=== PATIENT | male | born 1955 | race Caucasian/White ===

== ENCOUNTER 2023-03-09 15:25 | Outpatient (OUT) | payer MEDICARE, OTHER, SELFPAY ==
--- NOTE | 2023-03-09 15:37 | XR_ITS ---
The [address] [address] Patient Name: RADHA BRAXTON MRN: [id number] date: 1955 Sex: M Assigned Patient Location: LAB Current Patient Location: LAB Accession/Order Number: [id number] Exam Date: 03/09/2023 15:42 Report Date: 03/09/2023 17:21 At the request of: CHIOMA MCGOWAN Procedure: XR chest 2V EXAM: XR chest 2V HISTORY: persistent cough R05.3 COMPARISON: None. TECHNIQUE: PA and lateral views of the chest performed. FINDINGS: The trachea is midline. There is mild enlargement of the cardiac silhouette. There is a moderate right pleural effusion with associated compressive atelectasis and a small left pleural effusion. There is additional indeterminate density posteriorly at the right lung base. There is no pulmonary vascular congestion. There is no pneumothorax. There is no acute osseous abnormality. XR/XR chest 2V IMPRESSION: There is a moderate right pleural effusion with associated compressive atelectasis and a small left pleural effusion. There is additional indeterminate density posteriorly at the right lung base. A CT examination of the chest is recommended for more detailed evaluation. Electronically authenticated by: DEISI MOSHER Date: 03/09/2023 17:21
== END 2023-03-09 15:26 | disposition home or self-care (01) ==
LOC: LAB 15:29
PROVIDERS: PCP Internal Medicine; Visit Provider Internal Medicine
DX: R05.3 Chronic cough (principal); J90 Pleural effusion, not elsewhere classified
CPT/HCPCS: 71046

== ENCOUNTER 2023-03-12 06:40 | Outpatient (OUT) | payer MEDICARE, OTHER, SELFPAY ==
--- NOTE | 2023-03-12 | CT_ITS ---
[address] [address] Patient Name: RADHA BRAXTON MRN: [id number] date: 1955 Sex: M Assigned Patient Location: LAB Current Patient Location: Accession/Order Number: [id number] Exam Date: 03/12/2023 07:35 Report Date: 03/14/2023 21:09 At the request of: CHIOMA MCGOWAN Procedure: CT chest wo con EXAMINATION: CT chest wo con HISTORY: lung density on xray J98.4 COMPARISON: XR chest 03/09/2023 TECHNIQUE: Multi-planar CT images were obtained without and/or with IV contrast as indicated by examination type. Axial, Coronal, and Sagittal images. Dose reduction techniques were achieved by using automated exposure control and/or adjustment of mA and/or kV according to patient size and/or use of iterative reconstruction technique. FINDINGS: LUNGS: Scattered stranding within the lungs and prominent areas of passive atelectasis/consolidation within lung bases, right greater than left. PLEURA: Large right pleural effusion 5.5 cm. Small loculated pneumothorax posterior to left lower lobe superior segment, 0.6 cm in thickness by 3.9 cm in width by 6.2 cm in height. There would appear to be some adjacent lung sutures and mild increased opacity of the pleural which may correspond to history given by patient of prior talc placement for persistent pneumothorax. VASCULATURE: No abnormality. RONDA: No mass or adenopathy. MEDIASTINUM: No mass or adenopathy. CARDIAC: Cardiomegaly, small pericardial effusion, and marked atherosclerotic coronary artery disease. AORTA: No aneurysm or dissection. CHEST WALL: Bilateral gynecomastia. No mass or axillary adenopathy. BONES: No bone lesion or fracture. LIMITED ABDOMEN: No suspicious findings Limited images of the upper abdomen. OTHER: Negative. CT/CT chest wo con IMPRESSION: 1. Large right pleural effusion and prominent adjacent atelectasis versus infiltrates/consolidation. 2. Mild atelectasis or infiltrates within left lung base. 3. Small loculated left pneumothorax with adjacent pleural changes likely corresponding to prior repair/talc placement. No prior studies for comparison. 4. Cardiomegaly, marked atherosclerotic coronary artery disease, and small pericardial effusion. Electronically authenticated by: JETHRO SHARPE Date: 03/14/2023 21:09
--- OUTSIDE RECORDS SUMMARY | 2023-03-12 06:43 | XMS_ITS | CCD ---
Author Name Unknown Address [address] [place] [address] Organization [facility] Care Team Providers Care Retort Operator Name Role Phone DR EPIFANIO MONTELONGO Attending Unavailable JUAN M, DR BEDOLLA Admitting Unavailable Epifanio Montelongo DO Primary Care Provider Bridger LAKHANI, Ran Unavailable No, Referral Unavailable Unavailable Suzi Saxena Unavailable DO Epifanio Montelongo Primary Care Provider [phone] KELBY Saxena Attending Provider TAIWO Leon Attending Provider EPIFANIO MONTELONGO Primary Care Physician [phone] DO Epifanio Montelongo Primary Care Provider KELBY Saxena Attending Provider Epifanio Montelongo DO Primary Care Provider Bridger LAKHANI, Ran Unavailable No, Referral Unavailable Unavailable Epifanio Montelongo DO Primary Care Provider Bridger LAKHANI, Ran Unavailable No, Referral Unavailable Unavailable Epifanio Montelongo Unavailable DO Epifanio Montelongo Primary Care Provider KELBY Saxena Attending Provider Bridger LAKHANI, Ran Unavailable BRIDGER RAN Referring Unavailable BRIDGER, RAN Attending Unavailable EPIFANIO MONTELONGO Primary Care Unavailable BRIDGER, RAN Referring Unavailable EPIFANIO MONTELONGO Primary Care Unavailable BRIDGER, RAN Referring Unavailable BRIDGER, RAN Attending Unavailable EPIFANIO MONTELONGO Primary Care Unavailable EPIFANIO MONTELONGO Primary Care Unavailable BRIDGER, RAN Attending Unavailable BRIDGER, RAN Referring Unavailable BALL, EPIFANIO E Primary Care Unavailable BRIDGER, RAN Attending Unavailable DEBRA BOND Referring Unavailable JUAN MEPIFANIO E Primary Care Unavailable Mayank URBAN Attending Unavailable Mayank URBAN Attending Unavailable Ema Cline Attending Unavailable Epifanio Montelongo Primary Care Unavailable Ema Cline Admitting Unavailable Epifanio Montelongo Primary Care Unavailable Mapus, Tondra K Admitting Unavailable Mapus, Tondra K Attending Unavailable Epifanio Montelongo Primary Care Unavailable Mapus, Tondra K Admitting Unavailable Mapus, Tondra K Attending Unavailable Allergies Allergy Classification Reported Allergen(s) Allergy Type Date of Onset Reaction(s) Facility Iodine (and Iodine containting drugs) (1 source) Iodine (And Iodine Containting Drugs) Drug Allergy [facility] Repository Pentazocine (1 source) Pentazocine Drug Allergy [facility] Repository (15 sources) Aspirin / Pentazocine; Translations: [TALWIN COMPOUND] Drug Allergy 2 Other: See Comments [facility] Work Phone: (15 sources) Iodine; Translations: [IODINE] Drug Allergy 2 Other: See Comments [facility] Work Phone: (20 sources) Pentazocine; Translations: [PENTAZOCINE] Drug Allergy 0 Anaphylaxis [facility] Work Phone: (20 sources) Iodinated Contrast Media; Translations: [IODINATED CONTRAST MEDIA] Drug Allergy 5 Hives, Unknown [facility] Work Phone: (20 sources) Contrast media Propensity to adverse reactions Unknown viavoo Other (1 source) patient allergy list reviewed by nurse or physicia Propensity to adverse reactions 4 Comment:Done viavoo Other (1 source) Contrast media; Translations: [Contrast Dye] Propensity to adverse reactions (disorder) [facility] Repository (1 source) Pentazocine Drug Allergy 1 [facility] Repository (1 source) Iodinated Contrast Media Drug allergy (disorder) 1 [facility] Repository Medications Current Medications Medication Drug Class(es) Dates Sig (Normalized) Sig (Original) 24 hr alfuzosin hydrochloride 10 mg extended release oral tablet (20 sources) alpha-Adrenergic Derrek Start: 04-12-2019 take 1 tablet by mouth once daily alfuzosin 10 mg ER Tab 10 mg = 1 tab(s), Oral, Daily, # 90 tab(s), Refills(s) 3, Pharmacy: [facility]/pharmacy #[id number], 185, cm, 02/22/23 8:51:00 EST, Height/Length Dosing, 115.5, kg, 02/22/23 8:51:00 EST, Weight Dosing Start Date: 02/22/23 Status: Ordered Comment on above: Take 10 mg by mouth once daily. aspirin 81 mg oral capsule (20 sources) Platelet Aggregation Inhibitor, Nonsteroidal Anti-inflammatory Drug Start: 11-24-2020 take 1 mg by mouth every four hours aspirin 81 mg oral capsule mg cap(s), Oral, q4hr, Refills(s) 0 Start Date: 11/24/20 Status: Ordered Start: 01-05-2018 End: 04-10-2020 take 81 mg by mouth once daily Aspirin Active 81 MG PO Daily April 10, 2020 1:00am Comment on above: Take 81 mg by mouth once daily. benzonatate 100 mg oral capsule (4 sources) Non-narcotic Antitussive Start: 3 take 1 capsule by mouth three times daily as needed for cough Benzonatate 100 MG 1 capsule as needed Orally Three times a day as needed for cough for 10 days Feb, Active bumetanide 1 mg oral tablet (16 sources) Loop Diuretic Start: take 1 mg by mouth twice daily Bumetanide Active 1 MG PO Twice daily 0 September 18, 2020 11:08am Start: 06-17-2020 End: 09-18-2020 take 4 mg by mouth twice daily Bumetanide Discontinued 4 MG PO Twice daily June 17, 2020 12:00am September 18, 2020 11:08am carvedilol 3.125 mg oral tablet (19 sources) alpha-Adrenergic Derrek, beta-Adrenergic Derrek Start: 09-16-2020 take 3.125 mg by mouth twice daily Carvedilol Active 3.125 MG PO Twice daily September 16, 2020 12:00am Start: 08-10-2019 End: 05-24-2020 take 1 tablet by mouth twice daily at mealtime Carvedilol (Coreg) 6.25 mg tablet Discontinued 6.25 MG PO Twice daily December 14, 2019 1:34pm May 24, 2020 9:51pm must administer with a meal/food cephalexin 500 mg oral capsule (3 sources) Cephalosporin Antibacterial Start: 03-08-2021 take 500 mg by mouth every six hours Cephalexin Active 500 MG PO Q6H 28 March 08, 2021 1:00am Contour Next Test - (20 sources) Contour Next Saud t - as directed- use with Contour Next linking meter In Vitro 6 times/day for 90 days E10.8 Active Contour Next Saud t - as directed- use with Contour Next linking meter In Vitro 6 times/day for 90 day(s) E10.8 Active doxycycline hyclate 100 mg oral capsule (1 source) Tetracycline-class Drug Start: 12-09-2022 take 1 capsule by mouth every twelve hours Doxycycline Hyclate 100 MG 1 capsule Orally Twice a day for 5 days Nov, Active gabapentin 600 mg oral tablet (20 sources) Anti-epileptic Agent Start: 01-05-2018 End: 04-12-2019 take 600 mg by mouth three times daily Gabapentin Discontinued 600 MG PO Three times daily January 05, 2018 12:00am April 12, 2019 9:45pm Start: 03-10-2015 take 1 tablet by margie th three times daily gabapentin (NEURONTIN) 600 mg tablet Take 600 mg by mouth three times daily. 0 03/10/2015 Active Comment on above: Take 600 mg by mouth three times daily. 0.2 ml glucagon 5 mg/ml auto-injector (20 sources) Antihypoglycemic Agent Start: 05-21-2021 Gvoke HypoPen 2-Pack 1 MG/0.2ML as directed Subcutaneous prn hypoglycemia may repeat in 15 minutes for 1 days May, Active insulin lispro 100 unt/ml injectable solution (20 sources) Insulin Analog Start: 11-24-2020 HumaLOG 100 units/mL injectable solution 5 unit(s), SubCutaneous, TIDAC, # 10 mL, Refills(s) 0 Start Date: 11/24/20 Status: Ordered Start: 04-12-2019 Insulin Lispro (Humalog U-100 Insulin) 100 unit/mL Cartridge Active 1 sliding scale dose SUBCUT Use as Directed April 12, 2019 1:00am (04/13/2019) - Patient states current pump settings have total 32 units Basal with a 5-7g/unit ratio for carbohydrate coverage. Start: 03-11-2015 End: 04-12-2019 HUMALOG 100 unit/mL injectio n 10-03-2020: insulin pump 0 03/11/2015 Active HumaLOG 100 UNIT /ML 80 units/day insulin pump Injection As Directed for 90 days e10.9 Active inject 70 [IU] by herrera bcutaneous injection once daily HumaLOG 100 UNIT/ML expect up to 70 units total a day in insulin pump SQ via pump Daily for 90 day(s) Active Comment on above: 10-03-2020: insulin pump potassium chloride 20 meq extended release oral tablet (12 sources) Start: 11-24-2020 take 1 tablet by mouth twice daily potassium chloride 20 mEq ER Tab mEq tab(s), Oral, BID, Refills(s) 0 Start Date: 11/24/20 Status: Ordered take 2 tablets by [facility] every twenty-four hours Potassium Chloride ER 20 MEQ 2 tablets with food Orally Once a day Not-Taking sulfamethoxazole 800 mg / trimethoprim 160 mg oral tablet (3 sources) Dihydrofolate Reductase Inhibitor Antibacterial, Sulfonamide Antimicrobial Start: 03-08-2021 take 1 tablet by mouth twice daily Sulfamethoxazole-Trimethoprim (Bactrim Ds) 800-160 mg tablet Active 1 TAB PO Twice daily 14 March 08, 2021 1:00am triamcinolone acetonide 5 mg/ml topical cream (3 sources) Corticosteroid Start: 11-17-2022 Triamcinolone Acetonide 0.5 % 1 application Externally Twice a day for 14 days Nov, Active Completed/Discontinued Medications Medication Drug Class(es) Dates Sig (Normalized) Sig (Original) acetaminophen 500 mg oral tablet (3 sources) Start: 04-18-2020 End: 09-16-2020 take 500 mg by mouth every six hours Acetaminophen Discontinued 500 MG PO Q6H 0 April 18, 2020 1:00am September 16, 2020 8:00pm amLODIPine 5 mg oral tablet (3 sources) Dihydropyridine Calcium Channel Derrek Start: 01-05-2018 End: 08-10-2019 take 5 mg by mouth once daily Amlodipine Discontinued 5 MG PO Daily January 05, 2018 12:00am August 10, 2019 11:56am atorvastatin 80 mg oral tablet (20 sources) HMG-CoA Reductase Inhibitor Start: 02-27-2015 End: 01-21-2023 take 1 tablet by mouth once daily at bedtime atorvastatin (LIPITOR) 80 mg tablet Indications: Ischemic cardiomyopathy , 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 , Type 1 diabetes mellitus with diabetic polyneuropathy (HCC) , Dyslipidemia take 1 tablet by mouth everyday at bedtime 90 tablet 3 01/11/2023 Active Comment on above: Take 80 mg by mouth daily at bedtime. Take 1 tablet by margie th daily at bedtime. take 1 tablet by margie th everyday at bedtime bacitracin 0.5 unt/mg topical ointment (3 sources) Start: 04-18-2020 End: 05-24-2020 Bacitracin Discontinued 1 APPLIC TOPICAL Twice daily 0 April 18, 2020 1:00am May 24, 2020 9:51pm chlorhexidine gluconate 1.2 mg/ml mouthwash (3 sources) Start: 04-18-2020 End: 05-24-2020 Chlorhexidine Gluconate Discontinued 15 ML MUCOUS MEM Three times daily 0 April 18, 2020 1:00am May 24, 2020 9:51pm clopidogrel 75 mg oral tablet (6 sources) P2Y12 Platelet Inhibitor Start: 05-24-2020 End: 09-16-2020 take 75 mg by mouth once daily Clopidogrel Discontinued 75 MG PO Daily May 24, 2020 1:00am September 16, 2020 8:04pm Start: 04-12-2019 End: 04-13-2019 take 1 tablet by mouth once daily Clopidogrel (Plavix) 75 mg Tablet Discontinued 75 MG PO Daily April 12, 2019 1:00am April 13, 2019 9:10am Ergocalciferol (13 sources) Provitamin D2 Compound Start: 01-05-2018 End: 04-12-2019 take 30145 [IU] by mouth every week Ergocalciferol (Vitamin D2) Discontinued 68463 UNITS PO every week January 05, 2018 12:00am April 12, 2019 6:57pm take 1 capsule by mo uth two times weekly Ergocalciferol 1.25 MG (55871 UT) 1 caps ule Orally twice weekly for 90 days Not-Taking ezetimibe 10 mg oral tablet (3 sources) Dietary Cholesterol Absorption Inhibitor Start: 01-05-2018 End: 08-11-2019 take 10 mg by mouth at bedtime Ezetimibe Discontinued 10 MG PO Bedtime January 05, 2018 12:00am August 11, 2019 8:40am ferrous sulfate 324 mg delayed release oral tablet (10 sources) take 1 tablet by mouth every twenty-four hours Ferrous Sulfate 324 MG 1 tablet Orally Once a day Not-Taking furosemide 40 mg oral tablet (3 sources) Loop Diuretic Start: 08-12-2019 End: 06-17-2020 take 1 tablet by mouth once daily Furosemide (Lasix) 40 mg tablet Discontinued 40 MG PO Daily August 12, 2019 12:00am June 17, 2020 2:48pm levoFLOXacin 500 mg oral tablet (4 sources) Quinolone Antimicrobial Start: 06-19-2020 End: 09-16-2020 take 500 mg by mouth once daily Levofloxacin Discontinued 500 MG PO Daily 07 16June 19, 2020 12:00am September 16, 2020 8:03pm Comment on above: Take 500 mg by mouth once daily. Every day for 10 days lisinopril 2.5 mg oral tablet (6 sources) Angiotensin Converting Enzyme Inhibitor Start: 06-17-2020 End: 09-16-2020 take 2.5 mg by mouth once daily Lisinopril Discontinued 2.5 MG PO Daily June 17, 2020 12:00am September 16, 2020 8:02pm Start: 01-05-2018 End: 05-24-2020 take 20 mg by mouth once daily Lisinopril Discontinued 20 MG PO Daily January 05, 2018 12:00am May 24, 2020 9:51pm 24 hr metoprolol succinate 25 mg extended release oral tablet (20 sources) beta-Adrenergic Derrek Start: 05-14-2021 End: 07-16-2022 take 0.5 tablet by mouth once daily metoprolol succinate ER (TOPROL XL) 25 mg 24 hr tablet Indications: Chronic systolic heart failure (HCC) , Ischemic cardiomyopathy , 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 TAKE 1/2 TABLET BY MOUTH ONCE DAILY 45 tablet 3 07/12/2022 Active Start: 01-09-2018 End: 04-12-2019 take 25 mg by mouth twice daily Metoprolol Tartrate Di scontinued 25 MG PO Twice daily 60 January 09, 2018 12:00am April 12, 2019 6:57pm take 0.5 tablet by m outh every twenty-four hours Metoprolol Succinate ER 25 MG 0.5 tablet Orally Once a day Active Comment on above: Take 1 tablet by margie th once daily. Take 0.5 tablets by mouth once daily. TAKE 1/2 TABLET BY M OUTH ONCE DAILY pantoprazole 40 mg delayed release oral tablet (3 sources) Proton Pump Inhibitor Start: 8 End: 0 take 40 mg by mouth once daily in the morning Pantoprazole Discontinued 40 MG PO Every morning January 05, 2018 12:00am April 12, 2019 6:57pm perflutren lipid microspheres 1.3 mL in NaCl (PF) 0.9% 10 mL injection (DEFINITY) (3 sources) Start: 3 End: 3 perflutren lipid microspheres 1.3 mL in NaCl (PF) 0.9% 10 mL injection (DEFINITY) Start: 03-26-2022 End: 06-25-2023 perflutren lipid microsphere s 1.3 mL in NaCl (PF) 0.9% 10 mL injection (DEFINITY) prasugrel 10 mg oral tablet (3 sources) P2Y12 Platelet Inhibitor Start: 01-05-2018 End: 04-12-2019 take 10 mg by mouth once daily Prasugrel Discontinued 10 MG PO Daily January 05, 2018 12:00am April 12, 2019 6:57pm Pt Unable To Verify Home Meds (3 sources) Start: 10-11-2019 End: 11-02-2019 Pt Unable To Verify Home Meds Discontinued October 11, 2019 12:00am November 02, 2019 9:21am sacubitril 24 mg / valsartan 26 mg oral tablet (20 sources) Angiotensin 2 Receptor Derrek Start: 10-23-2020 End: 09-21-2022 take 0.5 tablet by mouth twice daily sacubitril-valsartan (ENTRESTO) 24-26 mg tablet Indications: Chronic systolic heart failure (HCC) Take 0.5 tablets by mouth twice daily. 90 tablet 3 09/21/2022 Active Comment on above: Take 1 tablet by margie th twice daily. TAKE 1 TABLET BY MARGIE TH TWICE A DAY Take 0.5 tablets by mouth twice daily. 125 ml sodium chloride 9 mg/ml prefilled syringe (3 sources) Start: 03-26-2022 End: 06-25-2023 sodium chloride 0.9 % (flush) 10 mL (BD POSIFLUSH) spironolactone 25 mg oral tablet (20 sources) Aldosterone Antagonist Start: 11-24-2020 take 1 mg by mouth twice daily spironolactone 25 mg Tab mg tab(s), Oral, BID, Refills(s) 0 Start Date: 11/24/20 Status: Ordered Start: 09-16-2020 End: 03-03-2023 take 1 tablet by mouth once daily spironolactone (ALDACTONE) 25 mg tablet Indications: Chronic systolic heart failure (HCC) take 1 tablet by mouth every day 90 tablet 3 03/03/2023 Active Comment on above: Take 1 tablet by margie th once daily. TAKE 1 TABLET BY MARGIE TH EVERY DAY tamsulosin hydrochloride 0.4 mg oral capsule (3 sources) alpha-Adrenergic Derrek Start: 8 End: 0 take 0.4 mg by mouth once daily Tamsulosin Discontinued 0.4 MG PO Daily January 05, 2018 12:00am April 12, 2019 9:43pm ticagrelor 90 mg oral tablet (6 sources) Start: 0 End: 1 take 1 tablet by mouth twice daily Ticagrelor (Brilinta) 90 mg tablet Discontinued 90 MG PO Twice daily December 14, 2019 1:34pm May 24, 2020 9:50pm torsemide 20 mg oral tablet (20 sources) Loop Diuretic Start: 3 take 2 tablets by mouth once daily torsemide (DEMADEX) 20 mg tablet Indications: Chronic systolic heart failure (HCC) , Ischemic cardiomyopathy , 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 , Type 1 diabetes mellitus with diabetic polyneuropathy (HCC) , Dyslipidemia Take 2 tablets by mouth once daily. 0 09/10/2022 Active Start: 08-19-2022 End: 09-10-2022 take 2 tablets by mouth twice daily torsemide (DEMADEX) 20 mg tablet Indications: Chronic systolic heart failure (HCC) , Ischemic cardiomyopathy , 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 , Type 1 diabetes mellitus with diabetic polyneuropathy (HCC) , Dyslipidemia TAKE 2 TABLETS BY MOUTH TWICE A DAY 360 tablet 3 08/19/2022 09/10/2022 Discontinued Start: 07-16-2021 End: 07-16-2022 take 2 tablets by mouth twice daily torsemide (DEMADEX) 20 mg tablet Indications: Chronic systolic heart failure (HCC) Take 2 tablets by mouth twice daily. 360 tablet 3 07/16/2021 01/21/2022 Discontinued Start: 05-14-2021 End: 08-19-2022 take 2 tablets by mouth once daily torsemide (DEMADEX) 20 mg tablet Indications: Chronic systolic heart failure (HCC) , Ischemic cardiomyopathy , 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 , Type 1 diabetes mellitus with diabetic polyneuropathy (HCC) , Dyslipidemia Take 2 tablets by mouth once daily. 0 01/21/2022 08/19/2022 Discontinued Start: 11-24-2020 take 1 mg by mouth once daily torsemide 20 mg Tab mg tab(s), Oral, Daily, Refills(s) 0 Start Date: 11/24/20 Status: Ordered Comment on above: Take 2 tablets by mo uth once daily. Take 2 tablets by mo uth twice daily. TAKE 2 TABLETS BY MO UTH TWICE A DAY Problems Active Problems Problem Classification Problem Date Documented Da te Episodic/Chronic Abdominal pain (4 sources) Flank pain; Translations: [Inguinal pain] 01-22-2019 Episodic Acute bronchitis (1 source) Acute bronchitis due to other specified organisms Episodic Acute myocardial infarction (3 sources) Myocardial infarction; Translations: [Acute non-ST segment elevation myocardial infarction] Onset: 6 01-22-2019 Chronic Acute posthemorrhagic anemia (4 sources) Acute posthemorrhagic anemia; Translations: [Acute posthemorrhagic anemia] 04-13-2019 Episodic Administrative/social admission (20 sources) Dietary management surveillance; Translations: [Dietary counseling and surveillance] Onset: 1 Resolved: 2 Episodic Allergic reactions (1 source) Allergic contact dermatitis due to plants, except food; Translations: [Allergic contact dermatitis due to plants, except food] Episodic Cancer of prostate (18 sources) Malignant tumor of prostate; Translations: [Malignant neoplasm of prostate] Onset: 5 10-22-2020 Chronic Cardiac dysrhythmias (3 sources) Nonsustained ventricular tachycardia ; Translations: [Ventricular tachycardia] 08-10-2019 Chronic Cataract (14 sources) Nuclear senile cataract; Translations: [Age-related nuclear cataract, unspecified eye] Onset: 4 10-22-2020 Chronic Chronic kidney disease (20 sources) Chronic kidney disease; Translations: [Chronic kidney disease, unspecified] Onset: 2 Chronic Chronic ulcer of skin (20 sources) Perforating ulcer of the foot; Translations: [Non-pressure chronic ulcer of other part of unspecified foot with unspecified severity] Onset: 5 01-16-2021 Chronic Congestive heart failure; nonhypertensive (20 sources) Chronic systolic heart failure; Translations: [Chronic systolic (congestive) heart failure] Onset: 1 Resolved: 2 10-22-2020 Chronic Coronary atherosclerosis and other heart disease (20 sources) Ischemic myocardial dysfunction; Translations: [Ischemic cardiomyopathy] Onset: 4 10-22-2020 Chronic Deficiency and other anemia (1 source) Anemia due to chronic blood loss; Translations: [Iron deficiency anemia secondary to blood loss (chronic)] Chronic Deficiency and other anemia (1 source) Anemia; Translations: [Anemia, unspecified] Episodic Diabetes mellitus with complications (20 sources) Disorder of nervous system due to type 2 diabetes mellitus; Translations: [Type 2 diabetes mellitus with other specified complication] Onset: 4 Resolved: 2 05-14-2021 Chronic Diabetes mellitus with complications (1 source) Diabetes mellitus with complications; Translations: [Type 1 diabetes mellitus with diabetic neuropathy, unspecified] Onset: 3 Diabetes mellitus without complication (20 sources) Type 1 diabetes mellitus; Translations: [Type 1 diabetes mellitus without complications] Onset: 4 Resolved: 2 01-16-2021 Chronic Diabetes mellitus without complication (20 sources) Insulin pump present; Translations: [Presence of insulin pump (external) (internal)] Onset: 1 01-16-2021 Episodic Disorders of lipid metabolism (20 sources) Dyslipidemia; Translations: [Hyperlipidemia, unspecified] Onset: 4 Resolved: 2 10-22-2020 Chronic E Codes: Natural/environment (20 sources) Tick bite; Translations: [Bitten or stung by nonvenomous insect and other nonvenomous arthropods, initial encounter] Episodic Esophageal disorders (11 sources) Gastroesophageal reflux disease; Translations: [Gastro-esophageal reflux disease without esophagitis] Onset: 2 01-22-2019 Chronic Esophageal disorders (1 source) Esophageal disorders; Translations: [Gastro-esophageal reflux disease with esophagitis, without bleeding] Essential hypertension (20 sources) Hypertensive disorder; Translations: [Essential (primary) hypertension] Onset: 4 Resolved: 2 Chronic Genitourinary symptoms and ill-defined conditions (17 sources) Miguel hematuria; Translations: [Gross hematuria] 05-24-2020 Episodic Hyperplasia of prostate (14 sources) Benign prostatic hypertrophy with outflow obstruction; Translations: [Benign prostatic hyperplasia with lower urinary tract symptoms] Onset: 2 Chronic Infective arthritis and osteomyelitis (except that caused by tuberculosis or sexually transmitted disease) (14 sources) Acute osteomyelitis of ankle and/or foot; Translations: [Other acute osteomyelitis, unspecified ankle and foot] Onset: 2 05-14-2021 Chronic Nonspecific chest pain (3 sources) Chest pain; Translations: [Chest pain, unspecified] 08-10-2019 Episodic Nutritional deficiencies (20 sources) Vitamin D deficiency; Translations: [Vitamin D deficiency, unspecified] Onset: 1 01-16-2021 Chronic Other aftercare (20 sources) Long-term current use of insulin; Translations: [long term care pharmacist (current) use of insulin] Onset: 1 01-16-2021 Episodic Other aftercare (20 sources) Drug therapy finding; Translations: [alf (current) use of systemic steroids] Episodic Other aftercare (6 sources) long term care pharmacist (current) use of insulin Onset: 1 Resolved: 2 Episodic Other aftercare (3 sources) Patient encounter status; Translations: [alf (current) use of antithrombotics/antipl atelets] 05-25-2020 Episodic Other bone disease and musculoskeletal deformities (3 sources) Amputated foot; Translations: [Acquired absence of unspecified foot] Onset: 2 05-14-2021 Chronic Other circulatory disease (1 source) Orthostatic hypotension; Translations: [Orthostatic hypotension] Episodic Other diseases of bladder and urethra (3 sources) Neurogenic bladder; Translations: [Neuromuscular dysfunction of bladder, unspecified] 06-18-2020 Chronic Other diseases of bladder and urethra (2 sources) Male urethral stricture; Translations: [Unspecified bulbous urethral stricture, male] 05-25-2020 Episodic Other diseases of bladder and urethra (5 sources) Urethral stricture; Translations: [Unspecified urethral stricture, male, unspecified site] 05-24-2020 Episodic Other diseases of bladder and urethra (1 source) Unspecified bulbous urethral stricture, male; Translations: [Stricture of bulbous urethra in male] 05-25-2020 Episodic Other diseases of veins and lymphatics (1 source) Peripheral venous insufficiency; Translations: [Venous insufficiency (chronic) (peripheral)] Episodic Other eye disorders (7 sources) Crystalline deposits in vitreous; Translations: [Crystalline deposits in vitreous body, unspecified eye] Onset: 4 10-22-2020 Chronic Other gastrointestinal disorders (3 sources) Constipation; Translations: [Constipation, unspecified] 06-17-2020 Episodic Other hematologic conditions (3 sources) Raised cardiac enzyme or marker; Translations: [Other specified abnormalities of plasma proteins] 09-16-2020 Episodic Other injuries and conditions due to external causes (1 source) History of fall; Translations: [History of falling] Episodic Other lower respiratory disease (1 source) Disorder of lung; Translations: [Other diseases of lung, not elsewhere classified] Episodic Other lower respiratory disease (1 source) Cough; Translations: [Cough, unspecified] Episodic Other lower respiratory disease (1 source) Solitary nodule of lung; Translations: [Solitary pulmonary nodule] Episodic Other lower respiratory disease (1 source) Lung field abnormal; Translations: [Other nonspecific abnormal finding of lung field] Episodic Other lower respiratory disease (2 sources) Other disorders of lung Episodic Other male genital disorders (2 sources) Impotence 09-07-2018 Chronic Other nervous system disorders (11 sources) Peripheral nerve disease ; Translations: [Polyneuropathy, unspecified] Onset: 1 05-14-2021 Chronic Other nervous system disorders (14 sources) Idiopathic progressive polyneuropathy; Translations: [Idiopathic progressive neuropathy] Onset: 2 05-14-2021 Chronic Other nervous system disorders (8 sources) Neuropathy; Translations: [Polyneuropathy, unspecified] Onset: 1 06-17-2020 Chronic Other nervous system disorders (19 sources) Paresthesia; Translations: [Paresthesia of skin] Onset: 8 05-14-2021 Episodic Other nervous system disorders (1 source) Paresthesia of skin Episodic Other nutritional; endocrine; and metabolic disorders (20 sources) Obese class I; Translations: [Obesity, unspecified] Onset: 6 01-16-2021 Chronic Other nutritional; endocrine; and metabolic disorders (20 sources) Obesity; Translations: [Obesity, unspecified] Resolved: 2 Chronic Other nutritional; endocrine; and metabolic disorders (20 sources) Body mass index 30+ - obesity; Translations: [Body mass index (BMI) 32.0-32.9, adult] Chronic Other nutritional; endocrine; and metabolic disorders (20 sources) Obese class II; Translations: [Body mass index (BMI) 39.0-39.9, adult] Chronic Other nutritional; endocrine; and metabolic disorders (2 sources) Body mass index (BMI) 31.0-31.9, adult Onset: 1 Resolved: 1 Chronic Other nutritional; endocrine; and metabolic disorders (3 sources) Body mass index (BMI) 32.0-32.9, adult Onset: 2 Resolved: 2 Chronic Other nutritional; endocrine; and metabolic disorders (1 source) Body mass index (BMI) 30.0-30.9, adult Chronic Other nutritional; endocrine; and metabolic disorders (1 source) Simple obesity ; Translations: [Other obesity due to excess calories] Onset: 6 Chronic Other nutritional; endocrine; and metabolic disorders (1 source) Obesity, unspecified; Translations: [Obesity, Class I, BMI 30-34.9] Onset: 3 Chronic Other screening for suspected conditions (not mental disorders or infectious disease) (1 source) Encounter for screening for malignant neoplasm of prostate Episodic Other skin disorders (1 source) Folliculitis; Translations: [Follicular disorder, unspecified] Episodic Peripheral and visceral atherosclerosis (20 sources) Peripheral vascular disease; Translations: [Peripheral vascular disease, unspecified] Onset: 5 01-16-2021 Chronic Residual codes; unclassified (1 source) Absence of lung; Translations: [Acquired absence of lung [part of]] Episodic Spondylosis; intervertebral disc disorders; other back problems (15 sources) Cervical spondylosis; Translations: [Other spondylosis with radiculopathy, cervical region] Onset: 8 Chronic Substance-related disorders (2 sources) Smoker 01-17-2019 Chronic Unclassified (1 source) Long-term current use of drug therapy; Translations: [Long-term (current) use of other medications] Onset: 9 Unclassified (1 source) Benign prostatic hyperplasia with lower urinary tract symptoms; Translations: [Benign prostatic hyperplasia with lower urinary tract symptoms] Onset: 3 Viral infection (3 sources) Disease caused by 2019-nCoV; Translations: [COVID-19] 03-08-2021 Episodic Past or Other Problems Problem Classification Problem Date Documented Date Episodic/Chronic Bacterial infection; unspecified site (1 source) Bacterial infectious disease; Translations: [Bacterial infection, unspecified, in conditions classified elsewhere and of unspecified site] Onset: 04-07-2018 Episodic Cancer of prostate (20 sources) History of malignant neoplasm of prostate; Translations: [Personal history of malignant neoplasm of prostate] Onset: 07-29-2016 10-22-2020 Episodic Fluid and electrolyte disorders (17 sources) Hyponatremia; Translations: [Hypo-osmolality and hyponatremia] Onset: 10-22-2020 10-22-2020 Episodic Malaise and fatigue (1 source) Malaise and fatigue; Translations: [Other malaise and fatigue] Onset: 02-10-2018 Episodic Mycoses (14 sources) Onychomycosis due to dermatophyte ; Translations: [Tinea unguium] Onset: 05-14-2021 05-14-2021 Episodic Noninfectious gastroenteritis (1 source) Non-infective enteritis and colitis; Translations: [Noninfective gastroenteritis and colitis, unspecified] Onset: 10-05-2013 Episodic Other bone disease and musculoskeletal deformities (14 sources) Absence of toe; Translations: [Acquired absence of other right toe(s)] Onset: 05-14-2021 05-14-2021 Episodic Other circulatory disease (11 sources) History of cerebrovascular accident; Translations: [Personal history of transient ischemic attack (TIA), and cerebral infarction without residual deficits] Onset: 01-21-2022 01-22-2019 Episodic Other lower respiratory disease (1 source) Hypoxemia; Translations: [Hypoxemia] Resolved: 10-28-2020 Episodic Other non-traumatic joint disorders (1 source) Shoulder joint pain; Translations: [Pain in joint, shoulder region] Onset: 04-26-2013 Episodic Other upper respiratory infections (2 sources) Acute maxillary sinusitis; Translations: [Acute maxillary sinusitis, unspecified] Onset: 10-05-2013 Episodic Pleurisy; pneumothorax; pulmonary collapse (18 sources) Pleural effusion; Translations: [Pleural effusion, not elsewhere classified] Onset: 10-22-2020 10-22-2020 Episodic Pneumonia (except that caused by tuberculosis or sexually transmitted disease) (1 source) Bacterial pneumonia; Translations: [Pneumonia due to other specified bacteria] Resolved: 08-16-2019 Episodic Residual codes; unclassified (1 source) Requires influenza virus vaccination; Translations: [Need for prophylactic vaccination and inoculation, Influenza] Onset: 12-24-2014 Episodic Residual codes; unclassified (1 source) Tobacco user; Translations: [Nondependent tobacco use disorder] Onset: 12-24-2014 Episodic Screening and history of mental health and substance abuse codes (1 source) History of tobacco use; Translations: [Personal history of tobacco use, presenting hazards to health] Onset: 12-24-2014 Episodic Superficial injury; contusion (1 source) Superficial foreign body of finger without major open wound AND without infection; Translations: [Finger, superficial foreign body (splinter), without major open wound and without mention of infection] Onset: 05-28-2013 Episodic Unclassified (1 source) Persistent cough R05.3 Results Test Name Value Interpretation Reference Range Facility Screenson 02-23-2023 Screens [id number]. [id number] Normal [facility] Patient Educationon 02-23-20 23 Patient Education Urology Benign Prostatic Hyperplasia Benign prostatic hyperplasia (BPH) is an enlarged prostate gland that is caused by the normal aging process. The prostate may get bigger as a man gets older. The condition is not caused by cancer. The prostate is a walnut-sized gland that is involved in the production of semen. It is located in front of the rectum and below the bladder. The bladder stores urine. The urethra carries stored urine out of the body. An enlarged prostate can press on the urethra. This can make it harder to pass urine. The buildup of urine in the bladder can cause infection. Back pressure and infection may progress to bladder damage and kidney (renal) failure. What are the causes? This condition is part of the normal aging process. However, not all men develop problems from this condition. If the prostate enlarges away from the urethra, urine flow will not be blocked. If it enlarges toward the urethra and compresses it, there will be problems passing urine. What increases the risk? This condition is more likely to develop in men older than 50 years. What are the signs or symptoms? Symptoms of this condition include: ? Getting up often during the night to urinate. ? Needing to urinate frequently during the day. ? Difficulty starting urine flow. ? Decrease in size and strength of your urine stream. ? Leaking (dribbling) after urinating. ? Inability to pass urine. This needs immediate treatment. ? Inability to completely empty your bladder. ? Pain when you pass urine. This is more common if there is also an infection. ? Urinary tract infection (UTI). How is this diagnosed? This condition is diagnosed based on your medical history, a physical exam, and your symptoms. Tests will also be done, such as: ? A post-void bladder scan. This measures any amount of urine that may remain in your bladder after you finish urinating. ? A digital rectal exam. In a rectal exam, your health care provider checks your prostate by putting a lubricated, gloved finger into your rectum to feel the back of your prostate gland. This exam detects the size of your gland and any abnormal lumps or growths. ? An exam of your urine (urinalysis). ? A prostate specific antigen (PSA) screening. This is a blood test used to screen for prostate cancer. ? An ultrasound. This test uses sound waves to electronically produce a picture of your prostate gland. Your health care provider may refer you to a specialist in kidney and prostate diseases (urologist). How is this treated? Once symptoms begin, your health care provider will monitor your condition (active surveillance or watchful waiting). Treatment for this condition will depend on the severity of your condition. Treatment may include: ? Observation and yearly exams. This may be the only treatment needed if your condition and symptoms are mild. ? Medicines to relieve your symptoms, including: ? Medicines to shrink the prostate. ? Medicines to relax the muscle of the prostate. ? Surgery in severe cases. Surgery may include: ? Prostatectomy. In this procedure, the prostate tissue is removed completely through an open incision or with a laparoscope or robotics. ? Transurethral resection of the prostate (TURP). In this procedure, a tool is inserted through the opening at the tip of the penis (urethra). It is used to cut away tissue of the inner core of the prostate. The pieces are removed through the same opening of the penis. This removes the blockage. ? Transurethral incision (TUIP). In this procedure, small cuts are made in the prostate. This lessens the prostate's pressure on the urethra. ? Transurethral microwave thermotherapy (TUMT). This procedure uses microwaves to create heat. The heat destroys and removes a small amount of prostate tissue. ? Transurethral needle ablation (TUNA). This procedure uses radio frequencies to destroy and remove a small amount of prostate tissue. ? Interstitial laser coagulation (ILC). This procedure uses a laser to destroy and remove a small amount of prostate tissue. ? Transurethral electrovaporization (TUVP). This procedure uses electrodes to destroy and remove a small amount of prostate tissue. ? Prostatic urethral lift. This procedure inserts an implant to push the lobes of the prostate away from the urethra. Follow these instructions at home: ? Take zuzs-ydy-rycfpas and prescription medicines only as told by your health care provider. ? Monitor your symptoms for any changes. Contact your health care provider with any changes. ? Avoid drinking large amounts of liquid before going to bed or out in public. ? Avoid or reduce how much caffeine or alcohol you drink. ? Give yourself time when you urinate. ? Keep all follow-up visits. This is important. Contact a health care provider if: ? You have unexplained back pain. ? Your symptoms do not get better with treatment. ? You develop side effects from the medicine (more content not included)... Normal [facility] Urology Office/Clinic Noteon 12-12-2023 Urology Office/Clinic Note Chief Complaint 1 year follow up w/ PSA HPI Staff Ellis is a 67 y.o. male here for 1 year follow up w/ PSA. Previous RWR pt. Previous Dx: BPH w/ urinary obstruction, dysuria, flank pain, gross hematuria, hesitancy, impotence, nocturia, personal history of prostate cancer, retention of urine, urethral stricture, weak urine stream. S/P cystoscopy done on 07/09/20, cysto/UD done on 01/29/19, Seeds done on 06/18/15, vasectomy done on 10/04/11, TRUS/bx done on 01/18/11. Previous PSA 0.050 done on 11/04/21. Current PSA 0.040 done 02/16/23. IPSS SCORE 13. PVR today 32ml. Dysuria: denies pain and burning Incomplete bladder emptying: denies Hematuria: denies visible blood Frequency: 8x a day Urgency: sometimes due to medication Nocturia: 2x a night Stream: some hesitancy, strong to moderate stream Leaking: denies Post void dripping: denies Wearing pads/ Depends: denies Urge incontinence: denies Stress incontinence: denies Incontinence without Sensory Awareness: denies Abdominal pain: denies Flank pain: denies Sexual complaints: _ History of Present Illness Tests reviewed: reviewed UA and PSA. I have reviewed the previous health record information and history for this patient from . I have reviewed and verified the staff HPI to be accurate for this encounter. There have been no associated fever, chills, flank pain, or blood in the urine. Denies any urinary infections since last encounter. Review of Systems PHQ Score Initial Depression Screen Score: 0 SCORE ROS - Provider Constitutional: denies weight loss, denies hot flashes. Eyes: denies eye problems. Gastrointestinal: denies nausea, denies vomiting. Cardiovascular: denies chest pain or angina. Integumentary: no dryness Musculoskeletal: denies musculoskeletal symptoms. ENMT: denies otolaryngeal symptoms. Respiratory: no shortness of breath. Heme/Lymph: denies easy bleeding tendency, denies easy bruising tendency. Psychiatric: no confusion, no anxiety. Genitourinary: See HPI. Physical Exam Vitals & Measurements HR: 74(Peripheral) BP: 130/80 HT: 73 in HT: 185 cm WT: 115.5 kg WT: 254.1 lb BMI: 33.75 General Appearance: alert, no distress, well nourished, well developed male. Assessment/Plan 1. BPH with urinary obstruction (N40.1: Benign prostatic hyperplasia with lower urinary tract symptoms) S/p Cysto with Dr Urban on 07/09/20 UA today is clear/neg for any blood or infections Continue Alfuzosin 10mg therapy. IPSS 13(10), PVR today was 32mL. Pt denies any urinary complaints. Wakes up a couple times a night, not bothersome. Has a good stream. -Conitnue Alfuzosin as above. Refills sent today. 2. Personal history of prostate cancer (Z85.46: Personal history of malignant neoplasm of prostate) S/p TRUS/bx 01/18/11 S/p Brachytherapy 06/18/15 PSA 11/24/20 - 0.03 11/04/21 - 0.05 02/16/23 - 0.[address] Cuelalr any longer. Discussed PSA with pt, low and stable. Will continue to monitor. Follow up in 1 yr w/PSA. All questions/concerns were discussed. Pt to call the office if he encounters any issues prior. Pt acknowledges understanding. -Will order PSA. Follow-up With When Contact Information HITESH LAKHANI, Mayank Quijano, URL In 1 year [facility] [address], [place] [address]- Additional Instructions: w/PSA Patient Education Benign Prostatic Hyperplasia Peggy Licona , personally scribed for Dr. Urban on 02/22/2023 09:38:12. . Portions of this record may have been created with voice recognition artificial intelligence software, specifically [employer], [employer] and or [employer]. Substitutions may have occurred due to the inherent limitations of voice recognition and artificial intelligence software. Documentation recorded by the debbieibPeggy renteria, accurately reflects the services(s) I performed and decisions made by me. Problem List/Past Medical History Ongoing Acute angina BPH with urinary obstruction Diabetes Dysuria Flank pain Gastroesophageal reflux Groin pain Gross hematuria H/O: stroke Hesitancy Impotence Myocardial infarction Neuropathy Nocturia Personal history of prostate cancer Retention of urine Smoker Urethral stricture Weak urinary stream Historical No qualifying data Procedure/Surgical History Cystoscopy (07/09/2020), Cysto/UD (01/29/2019), Implantation of radioactive seed into prostate (06/18/2015), Vasectomy (10/04/2011), Transrectal biopsy of prostate using ultrasound (US) guidance (01/18/2011), Amputation of toe, Cardiac catheterization, combined right and left heart, Laser eye surgery, Placement of stent, Placement of stent in cardiac conduit. Medications alfuzosin 10 mg ER Tab, 10 mg= 1 tab(s), Oral, Daily, 3 refills aspirin 81 mg oral capsule, Oral, q4hr atorvastatin 80 mg Tab, Oral, Daily gabapentin 600 mg Tab, Oral, (more content not included)... Normal [facility] Comment on above: Result Comment: Elec tronically Signed By: HITESH LAKHANI, Mayank Quijano\.br\Date and Time Signed: 02/22/23 09:40 EST\.br\Electronically Co-Signed By: Peggy Lane\.br\Date and Time Co-Signed: 02/22/23 09:38 EST Lab Reportson 02-17-2023 Lab Reports [id number] 0TIFF Normal [facility] PSA Total (Not a Screen)on 04-19-2022 PSA Total (Not a Screen) 0.040 ng/mL Normal 0.000-4.000 [facility] Comment on above: Result Comment: PERF ORMED BY: [place] [id number] PATHOLOGIST [employer] AALIYAH BENITEZ M.D. Performed By: #### P SATOTAL #### [address] A1C HEMOGLOBINon 02-02-2023 HbA1c (Bld) [Mass fraction] 6.8 % viavoo Other Glucose - FINGER STICKon Glucose [Mass/Vol] 87 mg/dL viavoo Other HbA1c (Bld) [Mass fraction]o n 02-02-2023 A1C [address]EMOGLOBIN [address] Other Alanine aminotransferase [En zymatic activity/volume] in Serum or PlasmaOrdered By: Suzi Saxena on 10-18-2022 ALT [Catalytic activity/Vol] 13 U/L 7-52 [facility] Albumin [Mass/volume] in Ser um or Plasma by Bromocresol green (BCG) dye binding methoOrdered By: Jordana Odessa on 10-18-2022 Albumin BCG dye [Mass/Vol] 3.7 g/dL 3.5-5.7 [facility] Alkaline phosphatase [Enzyma tic activity/volume] in Serum or PlasmaOrdered By: Jordana Odessa on 10-18-2022 ALP [Catalytic activity/Vol] 58 U/L 34-104 [facility] Aspartate aminotransferase [ Enzymatic activity/volume] in Serum or PlasmaOrdered By: Jordana Odessa on 10-18-2022 AST [Catalytic activity/Vol] 18 U/L 13-39 [facility] Bilirubin.total [Mass/volume ] in Serum or PlasmaOrdered By: Suzi Saxena on 10-18-2022 Bilirubin [Mass/Vol] 1.3 mg/dL 0.3-1.0 [facility] Comment on above: Samples from patient s who have taken Naproxen have shown spurious elevation in Total Bilirubin levels. A metabolite of Naproxen, O-desmethylnaproxen, has been shown to interfere with the Bayron-Jacinto method for measuring Total Bilirubin. Calcium [Mass/volume] in Ser um or PlasmaOrdered By: Suzi Saxena on 10-18-2022 Calcium [Mass/Vol] 8.6 mg/dL 8.6-10.3 [facility] Carbon dioxide, total [Moles /volume] in Serum or PlasmaOrdered By: Jordana Odessa on 10-18-2022 CO2 [Moles/Vol] 30.6 mmol/L 21.0-31.0 [facility] Chloride [Moles/volume] in S curly or PlasmaOrdered By: Suzi Saxena on 10-18-2022 Chloride [Moles/Vol] 104 mmol/L 98-107 [facility] Cholesterol [Mass/volume] in Serum or PlasmaOrdered By: Suzi Saxena on 10-18-2022 Cholesterol [Mass/Vol] 107 mg/dL 140-200 [facility] Comment on above: Chol less than 200 m g/dl low riskChol 201-239 mg/dl borderline riskChol 240 mg/dl and greater high risk Cholesterol in LDL Calc [Mas s/Vol]Ordered By: Suzi Saxena on 10-18-2022 Cholesterol in LDL [Mass/Vol] 60 mg/dL 0-100 [facility] Comment on above: LDL ATP III CLASSIFI CATIONLDL less than 100 mg/dL OptimalLDL 100-129 mg/dL Near or above optimalLDL 130-159 mg/dL Borderline highLDL 160-189 mg/dL HighLDL greater than 189 mg/dL Very high Cholesterol in VLDL Calc [Ma ss/Vol]Ordered By: Suzi Saxena on 10-18-2022 Cholesterol in VLDL [Mass/Vol] 9 mg/dL [facility] Comprehensive Metabolic Pane milly 10-18-2022 Albumin [Mass/Vol] 3.7 g/dL Normal 3.5-5.7 [facility] Comment on above: Order Comment: PT FA STED 12 HOURS 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;Hyperlipid Performed By: #### C MP, LIPID, URMACRERAT #### [facility] [address] [place] [address] [place] Albumin/Globulin [Mass ratio] 1.6 {ratio} Normal [facility] Comment on above: Order Comment: PT FA STED 12 HOURS 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;Hyperlipid Performed By: #### C MP, LIPID, URMACRERAT #### [facility] [address] [place] [id number] [place] ALP [Catalytic activity/Vol] 58 U/L Normal 34-104 [facility] Comment on above: Order Comment: PT FA STED 12 HOURS 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;Hyperlipid Performed By: #### C MP, LIPID, URMACRERAT #### [facility] [address] [place] [id number] [place] ALT [Catalytic activity/Vol] 13 U/L Normal 7-52 [facility] Comment on above: Order Comment: PT FA STED 12 HOURS 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;Hyperlipid Performed By: #### C MP, LIPID, URMACRERAT #### [facility] [address] Anion gap [Moles/Vol] 7.9 mmol/L Normal 6.0-15.0 [facility] Comment on above: Order Comment: PT FA STED 12 HOURS 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;Hyperlipid Performed By: #### C MP, LIPID, URMACRERAT #### [facility] [address] [place] [address] AST [Catalytic activity/Vol] 18 U/L Normal 13-39 [facility] Comment on above: Order Comment: PT FA STED 12 HOURS 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 A metabolite of Naproxen, O-desmethylnaproxen, has been shown to interfere with the Jendrassik-Grof method for measuring Total Bilirubin. 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;Hyperlipid Performed By: #### C MP, LIPID, URMACRERAT #### [facility] [address] [place] [address] [place] GFR/1.73 sq M.predicted MDRD (S/P/Bld) [Vol rate/Area] mL/min/{1.73_m2} Normal [facility] Comment on above: Order Comment: PT FA STED 12 HOURS 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;Hyperlipid Performed By: #### C MP, LIPID, URMACRERAT #### [facility] [address] [place] [address] [place] Globulin (S) [Mass/Vol] 2.3 g/dL Normal [facility] Comment on above: Order Comment: PT FA STED 12 HOURS 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 Glucose of more than 200 mg/dL in a nonstressed, ambulatory subject supports the diagnosis of Diabetes Mellitus. ADA recommended reference range Performed By: #### C MP, LIPID, URMACRERAT #### [facility] [address] Potassium [Moles/Vol] 4.5 mmol/L Normal 3.5-5.1 [facility] Comment on above: Order Comment: PT FA STED 12 HOURS 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;Hyperlipid Performed By: #### C MP, LIPID, URMACRERAT #### [facility] [address] [place] [address] Protein [Mass/Vol] 6.0 g/dL Low 6.4-8.9 [facility] Comment on above: Order Comment: PT FA STED 12 HOURS 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;Hyperlipid Performed By: #### C MP, LIPID, URMACRERAT #### [facility] [address] [place] [address] [place] Sodium [Moles/Vol] 138 mmol/L Normal 136-145 [facility] Comment on above: Order Comment: PT FA STED 12 HOURS 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;Hyperlipid Performed By: #### C MP, LIPID, URMACRERAT #### [facility] [address] [place] [address] [place] Urea nitrogen [Mass/Vol] 20 mg/dL Normal 7-25 [facility] Comment on above: Order Comment: PT FA STED 12 HOURS 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;Hyperlipid Performed By: #### C MP, LIPID, URMACRERAT #### [facility] [address] [place] [address] [place] Creatinine [Mass/volume] in Serum or PlasmaOrdered By: Suzi Saxena on 10-18-2022 Creatinine [Mass/Vol] 0.95 mg/dL 0.70-1.30 [facility] Creatinine [Mass/volume] in UrineOrdered By: Suzi Saxena on 10-18-2022 Creatinine (U) [Mass/Vol] 86.0 mg/dL 14.0-26.0 [facility] Globulin Calc (S) [Mass/Vol] Ordered By: Suzi Saxena on 10-18-2022 Globulin (S) [Mass/Vol] 2.3 g/dL [facility] Glucose [Mass/volume] in Ser um or PlasmaOrdered By: Suzi Saxena on 10-18-2022 Glucose [Mass/Vol] 94 mg/dL 70-100 [facility] Comment on above: ADA recommended refe rence rangeRandom Glucose Reference Range is dependent on time and content of last meal. Glucose of more than 200 mg/dL in a nonstressed, ambulatory subject supports the diagnosis of Diabetes Mellitus. Lipid Panelon 10-18-2022 Cholesterol [Mass/Vol] 107 mg/dL Low 140-200 [facility] Comment on above: Order Comment: PT FA STED 12 HOURS 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;Hyperlipid Result Comment: Chol less than 200 mg/dl low risk Chol 201-239 mg/dl borderline risk Chol 240 mg/dl and greater high risk Performed By: #### C MP, LIPID, URMACRERAT #### [facility] [address] [place] [id number] [place] Cholesterol in HDL [Mass/Vol] 38 mg/dL Normal 23-92 [facility] Comment on above: Order Comment: PT FA STED 12 HOURS 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;Hyperlipid Result Comment: HDL CHOL ATP-III CLASSIFICATION Cardiovascular Risk HDL > or equal to 60 mg/dL LOW HDL < 40 mg/dL HIGH Performed By: #### C MP, LIPID, URMACRERAT #### [facility] [address] [place] [id number] [place] Cholesterol.total/Lena sterol in HDL [Mass ratio] 2.8 {ratio} Normal <5.0 [facility] Comment on above: Order Comment: PT FA STED 12 HOURS 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;Hyperlipid Result Comment: PERF ORMED BY: [place] [id number] PATHOLOGIST [employer] AALIYAH BENITEZ M.D. Performed By: #### C MP, LIPID, URMACRERAT #### [address] LDL Cholesterol,Calculated 60 mg/dL Normal 0-100 [facility] Comment on above: Order Comment: PT FA STED 12 HOURS 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;Hyperlipid Result Comment: LDL ATP III CLASSIFICATION LDL less than 100 mg/dL Optimal LDL 100-129 mg/dL Near or above optimal LDL 130-159 mg/dL Borderline high LDL 160-189 mg/dL High LDL greater than 189 mg/dL Very high Performed By: #### C MP, LIPID, URMACRERAT #### [address] Triglyceride w/Reflex 46 mg/dL Normal 0-149 [facility] Comment on above: Order Comment: PT FA STED 12 HOURS 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;Hyperlipid Result Comment: TRIG ATP III CLASSIFICATION TRIG less than 150 mg/dL Normal TRIG 150-199 mg/dL Borderline high TRIG 200-500 mg/dL High TRIG greater than 500 mg/dL Very high Standard traceable to the Center for Disease Conrtrol and Prevention (CDC) test method. Performed By: #### C MP, LIPID, URMACRERAT #### [address] VLDL CHOLESTEROL 9 mg/dL Normal 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;Hyperlipid Performed By: #### C MP, LIPID, URMACRERAT #### [address] MicroAlb Creat Ratio,Uon Albumin DL <= 20 mg/L (U) [Mass/Vol] 1.3 mg/dL Normal 0.0-1.8 [facility] Comment on above: Order Comment: PT TO RETURN SAMPLE TODAY-RMP Reason 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 Performed By: #### C MP, LIPID, URMACRERAT #### [facility] [address] Creatinine, Urine (Random) 86.0 mg/dL High 14.0-26.0 [facility] Comment on above: Order Comment: PT TO RETURN SAMPLE TODAY-RMP Reason 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 Performed By: #### C MP, LIPID, URMACRERAT #### [facility] [address] Microalbumin/Creatinine Ratio 15.0 mg/g Normal 0.0-30.0 [facility] Comment on above: Order Comment: PT TO RETURN SAMPLE TODAY-RMP Reason 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 Result Comment: 30-3 00 mg/g indicates an increased risk for diabetic nephropathy. Greater than 300 mg/g is consistent with clinical nephropathy. (Am. J. Kidney Disease 1995, 25:107) PERFORMED BY: [place] [id number] PATHOLOGIST [employer] AALIYAH BENITEZ M.D. Performed By: #### C MP, LIPID, URMACRERAT #### [facility] [address] Microalbumin [Mass/volume] i n UrineOrdered By: Suzi Saxena on 10-18-2022 Albumin DL <= 20 mg/L (U) [Mass/Vol] 1.3 mg/dL 0.0-1.8 [facility] No Panel InformationOrdered By: Suzi Saxena on 10-18-2022 Estimated GFR (CKD-EPI) > 60.0 mL/Min [facility] Creatinine Clearance (Chem N/A [facility] Potassium [Moles/volume] in Serum or PlasmaOrdered By: Suzi Saxena on 10-18-2022 Potassium [Moles/Vol] 4.5 mmol/L 3.5-5.1 [facility] Protein [Mass/volume] in Ser um or PlasmaOrdered By: Suzi Saxena on 10-18-2022 Protein [Mass/Vol] 6.0 g/dL 6.4-8.9 [facility] Serum or plasma albumin/glob ulin mass ratioOrdered By: Suzi Saxena on 10-18-2022 Albumin/Globulin [Mass ratio] 1.6 {ratio} [facility] Serum or plasma anion gap de terminationOrdered By: Suzi Saxena on 10-18-2022 Anion gap [Moles/Vol] 7.9 mmol/L 6.0-15.0 [facility] Serum or plasma high density lipoprotein (HDL) cholesterol measurementOrdered By: Suzi Saxena on 10-18-2022 Cholesterol in HDL [Mass/Vol] 38 mg/dL 23- [facility] Comment on above: HDL CHOL ATP-III CLA SSIFICATION Cardiovascular RiskHDL > or equal to 60 mg/dL LOWHDL < 40 mg/dL HIGH Serum or plasma total choles terol/high density lipoprotein (HDL) cholesterol mass ratOrdered By: Suzi Saxena on 10-18-2022 Cholesterol.total/Lena sterol in HDL [Mass ratio] 2.8 {ratio} <5.0 [facility] Sodium [Moles/volume] in Ser um or PlasmaOrdered By: Suiz Saxena on 10-18-2022 Sodium [Moles/Vol] 138 mmol/L 136-145 [facility] Triglyceride [Mass/volume] i n Serum or PlasmaOrdered By: Suzi Saxena on 10-18-2022 Triglyceride [Mass/Vol] 46 mg/dL 0-149 [facility] Comment on above: TRIG ATP III CLASSIF ICATIONTRIG less than 150 mg/dL NormalTRIG 150-199 mg/dL Borderline highTRIG 200-500 mg/dL High TRIG greater than 500 mg/dL Very highStandard traceable to the Center for Disease Conrtrol and Prevention (CDC) test method. Urea nitrogen [Mass/volume] in Serum or PlasmaOrdered By: Suzi Saxena on 10-18-2022 Urea nitrogen [Mass/Vol] 20 mg/dL 7- [facility] Urine microalbumin/creatinin e mass ratioOrdered By: Suzi Saxena on 10-18-2022 Albumin/Creatinine DL <= 20 mg/L (U) [Mass ratio] 15.0 mg/g 0.0-30.0 [facility] Comment on above: 30-300 mg/g indicate s an increased risk for diabetic nephropathy. Greater than 300 mg/g is consistent with clinical nephropathy. (Am. J. Kidney Disease 1995, 25:107) CNOVon 09-10-2022 CNOV Office Visit ([facility] HF EDITH) ELLIS BRAXTON ([id number]) 1955 M Date Time Provider Department 09/10/22 1:45 PM DEBRA BOND CARD CHF EDITH During your visit today, we recorded the following information about you: Pulse Blood pressure Weight Height 58/minute 116/55 112.4 kg 1.854 m Debra Bond MD 10/10/2022 10:52 PM Signed [facility] [place] [facility] SECTION OF HEART FAILURE and CARDIAC TRANSPLANT MEDICINE OUTPATIENT VISIT DATE September 10, 2022 OUTPATIENT VISIT TYPE Established Patient PRIMARY CARE PHYSICIAN: Epifanio Montelongo ([place]) [address] [place] [address] CHIEF COMPLAINT: Follow-up NURSING INTAKE (Patient?s concerns and/or recent hospitalizations/ER visits): HF Nursing Assessment: Interim Hospitalizations and/or ER visits: no Chest Pain: no Skipping or irregular heartbeats: no Shortness of breath at rest: no Shortness of breath with activity: no Cough: no Waking up in the middle of the night gasping for air: no Lightheadedness or dizziness: no Feeling like you are going to pass out: no Actually passing out: no Poor energy level: no Unintentional weight gain: no Unintentional weight loss: no Swelling in your legs,feet, abdomen: no Filling up quickly when you eat: no HISTORY OF PRESENT ILLNESS: NYHA Functional Class: III Stage: C heart failure Mr. Braxton is a 67 yoM with: 1. T1DM, diagnosed on 06/16/65, on insulin; A1c 6.2% per patient 2. CAD s/p STEMI and PCI 15 years ago 2005, 2011 ([place]), July 2019 (chest pain two stents), no stent cards, performed by Dr. Benítez at [facility]. Stents were all to the LAD 3. Chronic systolic HFrEF 35%, ACC/AHA Stage C, NYHA II now 4. Dyslipidemia 5. CKD II Estimated Creatinine Clearance: 60.9 mL/min (A) (based on SCr of 1.49 mg/dL (H)). 6. Retinopathy s/p laser treatment 7. Neuropathy for last 25 years, can feel sensation above ankles. He lost two toes on the R foot 5 years ago. He has history of a R diabetic foot ulcer as well 8. Pleural effusion s/p pleurx before removed; previous biopsies of lung and pleura are negative for malignancy Riding bike 50-60 miles a week No major complaints No breathlessness Doesn't walk like he used to Weight 235-240 at home Trace edema Last 2 Encounter Wt Readings: Date: Wt: 09/10/2022 112.4 kg (247 lb 12.8 oz) 03/26/2022 111.2 kg (245 lb 1.6 oz) Last 3 Encounter BP Readings: Date: BP: 09/10/2022 116/55 03/26/2022 108/52 10/16/2021 105/55 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 Type 1 diabetes (HCC) 06/16/1965 PAST SURGICAL HISTORY Procedure Laterality Date AMPUTATION METATARSAL+TOE,SINGLE Right 2 toes right foot CC PCI CORONARY INTERVENT 2004 x1, 2016 x 2, July 2019 x 2 LUNG SURGERY HX Left 05/2020 Recurrent pleural effusion SOCIAL HISTORY Social History Tobacco Use Smoking status: Some Days Types: Cigars Smokeless tobacco: Never Tobacco comments: very rare cigar (one so far in 2020) Vaping Use Vaping Use: Never used Substance Use Topics Alcohol use: Yes Comment: rare glass of scotch Drug use: Never FAMILY HISTORY Problem Relation Age of Onset Heart Failure Mother Alzheimer's Disease Mother at age 81 Prostate Cancer Father at age 77 No Known Problems Sister Prostate Cancer Brother No Known Problems Brother No Known Problems Brother No Known Problems Son No Known Problems Son No Known Problems Daughter ALLERGIES: ALLERGIES Allergen Reactions Iodine Other: See Comments Iv Dye [Iodinated C* Hives Pentazocine Anaphylaxis Other reaction(s): FLU-LIKE SYMPTOMS Other reaction(s): FLU-LIKE SYMPTOMS Other reaction(s): FLU-LIKE SYMPTOMS Talwin Compound Other: See Comments CURRENT MEDICATIONS: torsemide (DEMADEX) 20 mg tabletTAKE 2 TABLETS BY MOUTH TWICE A DAYDisp: 360 tabletRfl: 3 (Patient taking differently: Take 40 mg by mouth once daily.) metoprolol succinate ER (TOPROL XL) 25 mg 24 hr tabletTAKE 1/2 TABLET BY MOUTH ONCE DAILYDisp: 45 tabletRfl: 3 spironolactone (ALDACTONE) 25 mg tabletTAKE 1 TABLET BY MOUTH EVERY DAYDisp: 90 tabletRfl: 3 atorvastatin (LIPITOR) 80 mg tabletTake 1 tablet by mouth daily at bedtime.Disp: 90 tabletRfl: 3 sacubitril-valsartan (ENTRESTO) 24-26 mg tabletTake 0.5 tablets by mouth twice daily.Disp: 180 tabletRfl: 3 alfuzosin SR (UROXATRAL) 10 mg 24 hr tabletTake 10 mg by mouth once daily.Disp: Rfl: aspirin, enteric coated (ASPIRIN, ENTERIC COATED) 81 mg EC tabletTake 81 mg by mouth once daily.Disp (more content not included)... Normal [facility] Office Visit (PERVMN ) ELLIS BRAXTON ([id number]) 1955 M Date Time Provider Department 09/10/22 12:30 PM HVI DISCHARGE ECHO J3-5 PERVMN During your visit today, we recorded the following information about you: Referring Provider: DEBRA BOND [[id number]] Allergies As of Date: 09/10/2022 Noted Allergy Reaction IODINE 05/11/2021 14 - Other: See Comments IV DYE (IODINATED CONTRAST MEDIA) 04/01/2015 4 - Hives PENTAZOCINE 11/02/2019 10 - Anaphylaxis Comments: Other reaction(s): FLU-LIKE SYMPTOMS Other reaction(s): FLU-LIKE SYMPTOMS Other reaction(s): FLU-LIKE SYMPTOMS TALWIN COMPOUND 05/11/2021 14 - Other: See Comments Date Reviewed: 09/10/2022 Reviewed by: Cristiana Liao Ma - Fully Assessed Visit Diagnoses:Chronic systolic heart failure (HCC) [I50.22] Ischemic cardiomyopathy [I25.5] 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 [I25.10] Order(s):ECHO [[id number]] Order #: [id number]. #:[id number] ty: 1 Prescriptions as of 10/12/2022 - sacubitril-valsartan (ENTRESTO) 24-26 mg tablet Take 0.5 tablets by mouth twice daily. - torsemide (DEMADEX) 20 mg tablet Take 2 tablets by mouth once daily. - metoprolol succinate ER (TOPROL XL) 25 mg 24 hr tablet TAKE 1/2 TABLET BY MOUTH ONCE DAILY - spironolactone (ALDACTONE) 25 mg tablet TAKE 1 TABLET BY MOUTH EVERY DAY - atorvastatin (LIPITOR) 80 mg tablet Take 1 tablet by mouth daily at bedtime. - alfuzosin SR (UROXATRAL) 10 mg 24 hr tablet Take 10 mg by mouth once daily. - aspirin, enteric coated (ASPIRIN, ENTERIC COATED) 81 mg EC tablet Take 81 mg by mouth once daily. - gabapentin (NEURONTIN) 600 mg tablet Take 600 mg by mouth three times daily. - HUMALOG 100 unit/mL injection 10-03-2020: insulin pump Problem List As Of Date 09/10/2022 Noted Resolved Malignant neoplasm of prostate (HCC) [C61] 04/10/2015 History of malignant neoplasm of prostate [Z85.*07/29/2016 Ischemic cardiomyopathy [I25.5] 10/22/2020 Chronic systolic heart failure (HCC) [I50.22] 10/22/2020 Arteriosclerosis of coronary artery [I25.10] 10/22/2020 Type 1 diabetes mellitus (HCC) [E10.9] 10/22/2020 Dyslipidemia [E78.5] 10/22/2020 Congestive heart failure (HCC) [I50.9] 10/22/2020 Disorder of nervous system due to type 2 diabet*12/05/2013 10/16/2021 Crystalline deposits in vitreous [H43.20] 12/05/2013 03/26/2022 History of therapeutic radiation [Z92.3] 10/22/2020 Hyperlipidemia [E78.5] 10/22/2020 Hyponatremia [E87.1] 10/22/2020 Peripheral neuropathy [G62.9] 10/22/2020 Nuclear senile cataract [H25.10] 12/05/2013 Pleural effusion [J90] 10/22/2020 Presence of insulin pump [Z96.41] 10/22/2020 Proliferative diabetic retinopathy (HCC) [E11.3*12/05/2013 Obesity, Class I, BMI 30-34.9 [E66.9] 10/23/2020 Vitamin D deficiency [E55.9] 01/16/2021 Peripheral vascular disease (HCC) [I73.9] 01/16/2021 Perforating ulcer of the foot (HCC) [L97.509] 01/16/2021 10/16/2021 alf current use of insulin (HCC) [Z79.4] 01/16/2021 Skin ulcer of second toe of left foot with fat *05/14/2021 10/16/2021 Ulcer of toe, right, with unspecified severity *05/14/2021 10/16/2021 Type 2 diabetes mellitus without complication (*05/14/2021 07/16/2021 Status post amputation of foot (HCC) [Z89.439] 05/14/2021 Polyneuropathy due to type 2 diabetes mellitus *05/14/2021 07/16/2021 Paresthesia [R20.2] 05/14/2021 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] 05/14/2021 Diabetic foot ulcer associated with type 1 diab*05/14/2021 10/16/2021 Dermatophytosis of nail [B35.1] 05/14/2021 Acute osteomyelitis of ankle or foot (HCC) [M86*05/14/2021 Acquired absence of other right toe(s) (HCC) [Z*05/14/2021 History of cerebrovascular accident [Z86.73] 01/21/2022 Gastroesophageal reflux disease [K21.9] 01/21/2022 Chronic kidney disease [N18.9] 01/21/2022 Benign prostatic hyperplasia with urinary obstr*11/30/2021 Acute on chronic congestive heart failure (HCC)*01/21/2022 Encounter Status:Closed by CARMEN ROSS on 10/12/22 Normal [facility] ECHOon 09-10-2022 Echocardiography Echocardiography Report: Transthoracic Echo [facility] J35 Date of service: 09/10/2022 12:37:01 PM SPONGE [facility]OOKING Ordering physician: DEBRA BOND Indication: Evaluation of known heart failure to guide therapy Technologist: Shonda Lira Interpreting physician: Yosef Car MD PATIENT: Name: MR. ELLIS BRAXTON : 1955 Age: 67 years Gender: M History of coronary artery disease and diabetes mellitus. Primary rhythm: sinus. Height: 185.40 cm BSA: 2.39 m Weight: 111.18 kg BMI: 32.3 kg/m Heart rate 69 bpm Blood pressure 120/54 mmHg Technically difficult exam due to body habitus. Color Doppler was utilized to interrogate the cardiac valves assessed and spectral Doppler was utilized to determine the flow velocities and pressure gradients reported in this exam. MEASUREMENTS: Value Indexed Normal Max aortic dimension 3.6 cm Ao < 3.8 Left atrial volume 72 ml (biplane A-L) 30 ml/m Monica <= 34 LV ID (diastole) 5.8 cm (2D) 2.42 cm/m LV ID (systole) 4.6 cm (2D) 1.92 cm/m IVS, leaflet tips 1.0 cm (2D) Posterior wall thickness 1.1 cm (2D) Left ventricular mass 248 g (2D) 104 g/m LV stroke volume 80 ml (2D biplane) LV end diastolic volume 217 ml (2D biplane) 90.8 ml/m 34<=EDVi<75 LV end systolic volume 137 ml (2D biplane) 57.3 ml/m Ejection Fraction 37 % (2D biplane) EF > 52 FINDINGS: LEFT VENTRICLE The left ventricle is moderately dilated. Left ventricular systolic function is moderately decreased regionally. Grade II left ventricular diastolic dysfunction. Mitral annular lateral E/e': 18.6. Mitral annular septal E/e': 20.1. Definity contrast used for endocardial border detection. Wall Motion: The basal inferior segment and apex are akinetic. The posterior wall and basal inferoseptal segment are severely hypokinetic. The anterolateral wall, apical lateral segment, and apical septal segment are mildly hypokinetic. All remaining scored segments are normal. RIGHT VENTRICLE The right ventricle is mildly dilated. Right ventricular systolic function is mildly decreased. RV systolic tissue Doppler velocity is 10.4 cm/s. Tricuspid annular displacement is 1.8 cm. Estimated right ventricular systolic pressure is 37 mmHg consistent with mild pulmonary hypertension. Estimated right atrial pressure is 3 mmHg based on IVC assessment. LEFT ATRIUM The left atrial cavity is normal in size. Pulmonary Veins: The pulmonary venous pattern showed blunted systolic flow. RIGHT ATRIUM The right atrial cavity is normal in size. Inferior Vena Cava: The inferior vena cava appears normal measuring 1.8 cm. The vessel decreases greater than 50 percent with inspiration. MITRAL VALVE There is moderate (2+) mitral valve regurgitation due to restricted leaflet motion. There is mild thickening. The pressure half time is 61 msec. The peak mitral E/A ratio is 1.55. The average mitral E/e' ratio is 19.3. The mitral flow deceleration time is 210 msec. TRICUSPID VALVE The tricuspid valve leaflets are structurally normal. There is mild (1+ - 2+) tricuspid valve regurgitation. AORTIC VALVE There is no aortic valve regurgitation. Tricuspid aortic valve. There is mild thickening. PULMONIC VALVE The pulmonic valve cusps are structurally normal. There is mild (1+) pulmonic valve regurgitation. AORTA The visualized aorta is normal in size. Measurements - Mid ascending aorta 3.6 cm. PULMONARY ARTERIES The pulmonary arteries are normal. INTERATRIAL SEPTUM There is no evidence of intracardiac shunting as detected by Doppler. INTERVENTRICULAR SEPTUM There is no flow through the interventricular septum as detected by Doppler. PERICARDIUM There is a trivial pericardial effusion adjacent to the left ventricle. CONCLUSIONS: - Technically difficult exam due to body habitus. - Exam indication: Evaluation of known heart failure to guide therapy - There is a resting wall motion abnormality in the territory of the RCA and LAD. - The left ventricle is moderately dilated. Left ventricular systolic function is moderately decreased. EF = 37 5% (2D biplane) Definity contrast used for endocardial border detection. Grade II left ventricular diastolic dysfunction. - The right ventricle is mildly dilated. Right ventricular systolic function is mildly decreased. - There is moderate (2+) mitral valve regurgitation due to restricted leaflet motion. - Estimated right ventricular systolic pressure is 37 mmHg consistent with mild pulmonary hypertension. Estimated right atrial pressure is 3 mmHg based on IVC assessment. - Exam was compared with the prior echocardiographic exam performed on 02/25/2021. Similar findings * * * Final * * * [employer] : [id number] [id number] Normal [facility] Urinalysis - DIPSTICKon 05- Appearance (U) clear [employer] Other Bilirubin Ql (U) Negative [employer] Other Color (U) pale yellow [employer] Other Glucose Ql (U) Negative [employer] Other Hemoglobin Ql (U) Negative [employer] Other Ketones Ql (U) Negative [employer] Other Leukocyte esterase Test strip Ql (U) Negative [employer] Other Nitrite Ql (U) Negative [employer] Other pH (U) 5.0 [pH] [employer] Other Protein Ql (U) Negative [employer] Other Specific gravity (U) [Rel density] 1.005 [employer] Other Urobilinogen (U) [Mass/Vol] Negative [place] [employer] Other Urinalysis - DIPSTICK Nor [employer] Other A1C HEMOGLOBINon 07-13-2022 HbA1c (Bld) [Mass fraction] 6.1 % [employer] Other Glucose - FINGER STICKon Glucose [Mass/Vol] 132 mg/dL [employer] Other HbA1c (Bld) [Mass fraction]o n 07-13-2022 A1C HEMOGLOBIN aisle411 Other A1C HEMOGLOBINon 04-06-2022 HbA1c (Bld) [Mass fraction] 6.1 % viavoo Other Glucose - FINGER STICKon Glucose [Mass/Vol] 119 mg/dL viavoo Other HbA1c (Bld) [Mass fraction]o n 04-06-2022 A1C HEMOGLOBIN aisle411 Other CNOVon 03-26-2022 CNOV Office Visit ([facility]) ELLIS BRAXTON ([id number]) 1955 [place] Date Time Provider Department 03/26/22 10:15 AM DEBRA BOND MAI During your visit today, we recorded the following information about you: Pulse Blood pressure Weight Height 70/minute 108/52 111.2 kg 1.854 m Debra Bond MD 03/26/2022 1:55 PM Signed [facility] [place] [facility] SECTION OF HEART FAILURE and CARDIAC TRANSPLANT MEDICINE OUTPATIENT VISIT DATE March 26, 2022 OUTPATIENT VISIT TYPE Established Patient PRIMARY CARE PHYSICIAN: Epifanio Montelongo ([place]) [address] [place] [address] CHIEF COMPLAINT: Follow-up NURSING INTAKE (Patient?s concerns and/or recent hospitalizations/ER visits): HF Nursing Assessment: Interim Hospitalizations and/or ER visits:no Chest Pain: no Skipping or irregular heartbeats: no Shortness of breath at rest: no Shortness of breath with activity: yes, a little Cough: no Waking up in the middle of the night gasping for air: no Lightheadedness or dizziness: no Feeling like you are going to pass out: no Actually passing out: no Poor energy level: getting better Unintentional weight gain: no Unintentional weight loss: no Swelling in your legs,feet, abdomen: yes, feet Filling up quickly when you eat: no HISTORY OF PRESENT ILLNESS: NYHA Functional Class: III Stage: C heart failure Mr. Braxton is a 66 yoM with: 1. T1DM, diagnosed on 06/16/65, on insulin; A1c 6.2% per patient 2. CAD s/p STEMI and PCI 15 years ago 2005, 2011 ([place]), July 2019 (chest pain two stents), no stent cards, performed by Dr. Benítez at [facility]. Stents were all to the LAD 3. Chronic systolic HFrEF 35%, ACC/AHA Stage C, NYHA II now 4. Dyslipidemia 5. CKD II Estimated Creatinine Clearance: 60.9 mL/min (A) (based on SCr of 1.49 mg/dL (H)). 6. Retinopathy s/p laser treatment 7. Neuropathy for last 25 years, can feel sensation above ankles. He lost two toes on the R foot 5 years ago. He has history of a R diabetic foot ulcer as well 8. Pleural effusion s/p pleurx before removed; previous biopsies of lung and pleura are negative for malignancy Doing well. Last visit 01/21/22 virtually. He has had some solid weight gain since then. Weight 236#. BP 102/63-110/58. LH has disappeared. 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 Type 1 diabetes (HCC) 06/16/1965 PAST SURGICAL HISTORY Procedure Laterality Date AMPUTATION METATARSAL+TOE,SINGLE Right 2 toes right foot CC PCI CORONARY INTERVENT 2004 x1, 2016 x 2, July 2019 x 2 LUNG SURGERY HX Left 05/2020 Recurrent pleural effusion SOCIAL HISTORY Social History Tobacco Use Smoking status: Some Days Types: Cigars Smokeless tobacco: Never Tobacco comments: very rare cigar (one so far in 2020) Vaping Use Vaping Use: Never used Substance Use Topics Alcohol use: Yes Comment: rare glass of scotch Drug use: Never FAMILY HISTORY Problem Relation Age of Onset Heart Failure Mother Alzheimer's Disease Mother at age 81 Prostate Cancer Father at age 77 No Known Problems Sister Prostate Cancer Brother No Known Problems Brother No Known Problems Brother No Known Problems Son No Known Problems Son No Known Problems Daughter ALLERGIES: ALLERGIES Allergen Reactions Iodine Other: See Comments Iv Dye [Iodinated C* Hives Pentazocine Anaphylaxis Other reaction(s): FLU-LIKE SYMPTOMS Other reaction(s): FLU-LIKE SYMPTOMS Other reaction(s): FLU-LIKE SYMPTOMS Talwin Compound Other: See Comments CURRENT MEDICATIONS: spironolactone (ALDACTONE) 25 mg tablet TAKE 1 TABLET BY MOUTH EVERY DAY torsemide (DEMADEX) 20 mg tablet Take 2 tablets by mouth once daily. atorvastatin (LIPITOR) 80 mg tablet Take 1 tablet by mouth daily at bedtime. sacubitril-valsartan (ENTRESTO) 24-26 mg tablet Take 0.5 tablets by mouth twice daily. metoprolol succinate ER (TOPROL XL) 25 mg 24 hr tablet Take 0.5 tablets by mouth once daily. alfuzosin SR (UROXATRAL) 10 mg 24 hr tablet Take 10 mg by mouth once daily. aspirin, enteric coated (ASPIRIN, ENTERIC COATED) 81 mg EC tablet Take 81 mg by mouth once daily. gabapentin (NEURONTIN) 600 mg tablet Take 600 mg by mouth three times daily. HUMALOG 100 unit/mL injection 10-03-2020: insulin pump REVIEW OF SYSTEMS: CONSTITUTION: Negative for: Fever, Night sweats and Recent weight change HEENT: Negative for: Hearing loss RESPIRATORY: Negative for: Cough and Difficulty breathing GASTROINTESTINAL: Negative for: Melena, Nausea (more content not included)... Normal [facility] metabolic 2000 panelon 03-26-2022 Albumin [Mass/Vol] 3.8 g/dL Low 3.9-4.9 [facility] Comment on above: Order Comment: Speci men Type: BLOOD SPECIMEN Ordering Facility: [facility] Address: [address] Performed By: #### 2 4323-8, 06797-0 #### [facility] CLIA [id number] [address] [place] [address] [place] ALP [Catalytic activity/Vol] 81 U/L Normal 38-113 [facility] Comment on above: Order Comment: Speci men Type: BLOOD SPECIMEN Ordering Facility: [facility] Address: [address] Performed By: #### 2 4323-8, 76011-7 #### [facility] CLIA [id number] [address] [place] [address] [place] ALT [Catalytic activity/Vol] 18 U/L Normal 10-54 [facility] Comment on above: Order Comment: Speci men Type: BLOOD SPECIMEN Ordering Facility: [facility] Address: [address] Performed By: #### 2 4323-8, 14334-4 #### [facility] CLIA [id number] [address] [place] [address] [place] Anion gap [Moles/Vol] 9 mmol/L Normal 9-18 [facility] Comment on above: Order Comment: Speci men Type: BLOOD SPECIMEN Ordering Facility: [facility] Address: [address] Performed By: #### 2 4323-8, 35324-6 #### [facility] CLIA [id number] [address] [place] [address] [place] AST [Catalytic activity/Vol] 21 U/L Normal 14-40 [facility] Comment on above: Order Comment: Speci men Type: BLOOD SPECIMEN Ordering Facility: [facility] Address: [address] Performed By: #### 2 4323-8, 77981-5 #### [facility] CLIA [id number] [address] [place] [address] [place] Bilirubin [Mass/Vol] 0.8 mg/dL Normal 0.2-1.3 [facility] Comment on above: Order Comment: Speci men Type: BLOOD SPECIMEN Ordering Facility: [facility] Address: [address] [place] [address] Performed By: #### 2 4323-8, 35243-3 #### [facility] CLIA [id number] [address] [place] [address] [place] Calcium [Mass/Vol] 8.8 mg/dL Normal 8.5-10.2 [facility] Comment on above: Order Comment: Speci men Type: BLOOD SPECIMEN Ordering Facility: [facility] Address: [address] [place] [address] Performed By: #### 2 4323-8, 19446-4 #### [facility] CLIA [id number] [address] [place] [address] [place] Chloride [Moles/Vol] 100 mmol/L Normal 97-105 [facility] Comment on above: Order Comment: Speci men Type: BLOOD SPECIMEN Ordering Facility: [facility] Address: [address] [place] [address] Performed By: #### 2 4323-8, 05603-6 #### [facility] CLIA [id number] [address] [place] [address] [place] CO2 [Moles/Vol] 28 mmol/L Normal 22-30 [facility] Comment on above: Order Comment: Speci men Type: BLOOD SPECIMEN Ordering Facility: [facility] Address: [address] Performed By: #### 2 4323-8, 70842-3 #### [facility] CLIA [id number] [address] [place] [address] [place] Creatinine [Mass/Vol] 1.19 mg/dL Normal 0.73-1.22 [facility] Comment on above: Order Comment: Ricardo ignacio Type: BLOOD SPECIMEN Ordering Facility: [facility] Address: [address] [place] [address] Performed By: #### 2 4323-8, 51839-6 #### [facility] CLIA [id number] [address] [place] [address] [place] ESTIMATED GLOMERULAR FILTRATION RATE 67 mL/min/1.73m??? Normal >=60 [facility] Comment on above: Order Comment: Ricardo ignacio Type: BLOOD SPECIMEN Ordering Facility: [facility] Address: [address] [place] [address] Result Comment: Aileen mated Glomerular Filtration Rate (eGFR) is calculated using the 2020 CKD-EPI creatinine equation. This equation utilizes serum creatinine, sex, and age as parameters. The creatinine assay has traceable calibration to isotope dilution-mass spectrometry. Refer to KDIGO guidelines for clinical interpretation. In patients with unstable renal function, e.g. those with acute kidney injury, the eGFR may not accurately reflect actual GFR. Performed By: #### 2 4323-8, 35369-5 #### [facility] CLIA [id number] [facility] [place] [address] [place] Glucose [Mass/Vol] 169 mg/dL High 74-99 [facility] Comment on above: Order Comment: Ricardo ignacio Type: BLOOD SPECIMEN Ordering Facility: [facility] Address: [address] [place] [address] Result Comment: The [place] Diabetes Association (ADA) provides guidance for cutoff values for fasting glucose and random glucose. The ADA defines fasting as no caloric intake for at least 8 hours. Fasting plasma glucose results between 100 to 125 mg/dL indicate increased risk for diabetes (prediabetes). Fasting plasma glucose results greater than or equal to 126 mg/dL meet the criteria for diagnosis of diabetes. In the absence of unequivocal hyperglycemia, results should be confirmed by repeat testing. In a patient with classic symptoms of hyperglycemia or hyperglycemic crisis, random plasma glucose results greater than or equal to 200 mg/dL meet the criteria for diagnosis of diabetes. Reference: Standards of Medical Care in Diabetes 2016, [place] Diabetes Association. Diabetes Care. 2016.39(Suppl 1). Performed By: #### 2 4323-8, 87478-2 #### [facility] CLIA [id number] [address] [place] [address] [place] Potassium [Moles/Vol] 4.4 mmol/L Normal 3.7-5.1 [facility] Comment on above: Order Comment: Speci men Type: BLOOD SPECIMEN Ordering Facility: [facility] Address: [address] [place] [address] Performed By: #### 2 4323-8, 91586-3 #### [facility] CLIA [id number] [address] [place] [address] [place] Protein [Mass/Vol] 6.4 g/dL Normal 6.3-8.0 [facility] Comment on above: Order Comment: Speci men Type: BLOOD SPECIMEN Ordering Facility: [facility] Address: [address] Performed By: #### 2 4323-8, 35263-7 #### [facility] CLIA [id number] [address] [place] [address] [place] Sodium [Moles/Vol] 137 mmol/L Normal 136-144 [facility] Comment on above: Order Comment: Speci men Type: BLOOD SPECIMEN Ordering Facility: [facility] Address: [address] [place] [address] Performed By: #### 2 4323-8, 20324-8 #### [facility] CLIA [id number] [address] [place] [id number] [place] Urea nitrogen [Mass/Vol] 23 mg/dL Normal 9-24 [facility] Comment on above: Order Comment: Speci men Type: BLOOD SPECIMEN Ordering Facility: [facility] Address: [address] [place] [id number] Performed By: #### 2 4323-8, 63444-9 #### [facility] CLIA [id number] [address] [place] NT-proBNP SerPl-mCncon 03-26 Natriuretic peptide.B prohormone N-Terminal [Mass/Vol] 3092 pg/mL High <125 [facility] Comment on above: Order Comment: Speci men Type: BLOOD SPECIMEN Ordering Facility: [facility] Address: [address] [place] [address] Performed By: #### 2 4323-8, 11038-9 #### [facility] CLIA [id number] [facility] [place] A1C HEMOGLOBINon 12-28-2021 HbA1c (Bld) [Mass fraction] 6.8 % viavoo Other Glucose - FINGER STICKon Glucose [Mass/Vol] 188 mg/dL viavoo Other HbA1c (Bld) [Mass fraction]o n 12-28-2021 A1C HEMOGLOBIN [employer] [facility] MiNOWireless Other Body fluid albumin measureme nt (mass/volume)Ordered By: Suzi Saxena on 12-24-2021 Albumin (Body fld) [Mass/Vol] 3.1 g/dL 3.2-5.5 [facility] Cholesterol [Mass/volume] in Serum or PlasmaOrdered By: Suzi Saxena on 12-24-2021 Cholesterol [Mass/Vol] 103 mg/dL 140-200 [facility] Comment on above: Chol less than 200 m g/dl low riskChol 201-239 mg/dl borderline riskChol 240 mg/dl and greater high risk Cholesterol in LDL Calc [Mas s/Vol]Ordered By: Suzi Saxena on 12-24-2021 Cholesterol in LDL [Mass/Vol] 60 mg/dL 0-100 [facility] Comment on above: LDL ATP III CLASSIFI CATIONLDL less than 100 mg/dL OptimalLDL 100-129 mg/dL Near or above optimalLDL 130-159 mg/dL Borderline highLDL 160-189 mg/dL HighLDL greater than 189 mg/dL Very high Cholesterol in VLDL Calc [Ma ss/Vol]Ordered By: Suzi Saxena on 12-24-2021 Cholesterol in VLDL [Mass/Vol] 8 mg/dL [facility] Creatinine [Mass/volume] in UrineOrdered By: Suzi Saxena on 12-24-2021 Creatinine (U) [Mass/Vol] 124.4 mg/dL [facility] Comment on above: No reference range e stablished Creatinine and Glomerular fi ltration rate.predicted panel (S/P/Bld)Ordered By: Suzi Saxena on 12-24-2021 Creatinine [Mass/Vol] 1.28 mg/dL 0.64-1.27 [facility] Estimated glomerular filtrat ion rate (GFR) non- AmericanOrdered By: Suzi Saxena on 12-24-2021 GFR/1.73 sq M.predicted among non-blacks MDRD (S/P/Bld) [Vol rate/Area] 56 mL/Min [facility] Globulin Calc (S) [Mass/Vol] Ordered By: Suzi Saxena on 12-24-2021 Globulin (S) [Mass/Vol] 2.8 g/dL [facility] No Panel InformationOrdered By: Suzi Saxena on 12-24-2021 Estimated GFR () > 60 mL/Min [facility] Comment on above: GFR estimated refere nce range: According to KDOQI guidelines, <60 ml/min/1.73m2 is sufficient to diagnose a patient with chronic kidney disease. Pharmacy Creatinine Clearance (Chem N/A [facility] Protein [Mass/volume] in Ser um or PlasmaOrdered By: Suzi Saxena on 12-24-2021 Protein [Mass/Vol] 5.9 g/dL 6.1-7.9 [facility] Serum or plasma alanine klein otransferase measurement without P-5'-P (enzymatic activiOrdered By: Suzi Saxena on 12-24-2021 ALT No additional P-5'-P [Catalytic activity/Vol] 14 U/L 10-60 [facility] Serum or plasma albumin/glob ulin mass ratioOrdered By: Suzi Saxena on 12-24-2021 Albumin/Globulin [Mass ratio] 1.1 {ratio} [facility] Serum or plasma alkaline fredi sphatase measurement (enzymatic activity/volume)Ordered By: Suzi Saxena on 12-24-2021 ALP [Catalytic activity/Vol] 52 U/L 32-92 [facility] Serum or plasma anion gap de terminationOrdered By: Suzi Saxena on 12-24-2021 Anion gap [Moles/Vol] 13.0 mmol/L 6.0-15.0 [facility] Serum or plasma aspartate am inotransferase measurement (enzymatic activity/volume)Ordered By: Suzi Saxena on 12-24-2021 AST [Catalytic activity/Vol] 19 U/L 10-42 [facility] Serum or plasma calcium jonathan urement (mass/volume)Ordered By: Suzi Saxena on 12-24-2021 Calcium [Mass/Vol] 8.8 mg/dL 8.2-10.2 [facility] Serum or plasma chloride eric surement (moles/volume)Ordered By: Suzi Saxena on 12-24-2021 Chloride [Moles/Vol] 99 mmol/L 95-114 [facility] Serum or plasma glucose jonathan urement (mass/volume)Ordered By: Suzi Saxena on 12-24-2021 Glucose [Mass/Vol] 140 mg/dL 70-100 [facility] Comment on above: ADA recommended refe rence rangeRandom Glucose Reference Range is dependent on time and content of last meal. Glucose of more than 200 mg/dL in a nonstressed, ambulatory subject supports the diagnosis of Diabetes Mellitus. Serum or plasma high density lipoprotein (HDL) cholesterol measurementOrdered By: Suzi Saxena on 12-24-2021 Cholesterol in HDL [Mass/Vol] 35 mg/dL 29-71 [facility] Comment on above: HDL CHOL ATP-III CLA SSIFICATION Cardiovascular RiskHDL > or equal to 60 mg/dL LOWHDL < 40 mg/dL HIGH Serum or plasma potassium me asurement (moles/volume)Ordered By: Suzi Saxena on 12-24-2021 Potassium [Moles/Vol] 4.5 mmol/L 3.5-5.1 [facility] Serum or plasma sodium measu rement (moles/volume)Ordered By: Suzi Saxena on 12-24-2021 Sodium [Moles/Vol] 134 mmol/L 136-146 [facility] Serum or plasma total biliru bin measurement (mass/volume)Ordered By: Suzi Saxena on 12-24-2021 Bilirubin [Mass/Vol] 1.3 mg/dL 0.3-1.2 [facility] Comment on above: Samples from patient s who have taken Naproxen have shown spurious elevation in Total Bilirubin levels. A metabolite of Naproxen, O-desmethylnaproxen, has been shown to interfere with the Bayron-Jacinto method for measuring Total Bilirubin. Serum or plasma total carbon dioxide measurement (moles/volume)Ordered By: Suzi Saxena on 12-24-2021 CO2 [Moles/Vol] 26.5 mmol/L 22.0-30.0 [facility] Serum or plasma total choles terol/high density lipoprotein (HDL) cholesterol mass ratOrdered By: Suzi Saxena on 12-24-2021 Cholesterol.total/Lena sterol in HDL [Mass ratio] 2.9 {ratio} <5.0 [facility] Serum or plasma urea nitroge n measurement (mass/volume)Ordered By: Suzi Saxena on 12-24-2021 Urea nitrogen [Mass/Vol] 29 mg/dL 9- [facility] Triglyceride [Mass/volume] i n Serum or PlasmaOrdered By: Suzi Saxena on 12-24-2021 Triglyceride [Mass/Vol] 42 mg/dL 35-149 [facility] Comment on above: TRIG ATP III CLASSIF ICATIONTRIG less than 150 mg/dL NormalTRIG 150-199 mg/dL Borderline highTRIG 200-500 mg/dL High TRIG greater than 500 mg/dL Very highStandard traceable to the Center for Disease Conrtrol and Prevention (CDC) test method. Urine microalbumin measureme nt with detection limit of 20 mg/L or less (mass/volume)Ordered By: Alfadra Saxena on 12-24-2021 Albumin DL <= 20 mg/L (U) [Mass/Vol] 0.6 mg/dL 0.0-1.8 [facility] Urine microalbumin/creatinin e mass ratioOrdered By: Suzi Saxena on 12-24-2021 Albumin/Creatinine DL <= 20 mg/L (U) [Mass ratio] 4.0 mg/g 0.0-30.0 [facility] Comment on above: 30-300 mg/g indicate s an increased risk for diabetic nephropathy. Greater than 300 mg/g is consistent with clinical nephropathy. (Am. J. Kidney Disease 1995, 25:107) No Panel InformationOrdered By: Selin Leon on 11-04-2021 Prostate Specific Antigen Total 0.050 ng/mL 0.000-4.000 [facility] A1C HEMOGLOBINon 05-21-2021 HbA1c (Bld) [Mass fraction] 6.2 % viavoo Other Glucose - FINGER STICKon Glucose [Mass/Vol] 93 mg/dL [employer] Other HbA1c (Bld) [Mass fraction]o n 05-21-2021 A1C HEMOGLOBIN [place] [employer] Other XR Spine Cervical Complete*o n 04-19-2021 XR Spine Cervical Complete* HISTORY: Chronic neck pain radiating to both shoulders. Neck stiffness. COMPARISON: None available TECHNIQUE: views of the cervical spine. FINDINGS: Straightening of the cervical lordosis. Cervical vertebral body heights and intervertebral disc heights are maintained. Mild multilevel gym endplate spurring. Mild multilevel facet arthropathy. No spondylolisthesis. Atlantodental interval is preserved. The lateral masses of C1 articulate symmetrically with C2. No high-grade osseous neural foraminal stenosis identified. No acute fracture. Prevertebral soft tissues appear within normal limits. IMPRESSION: No acute osseous abnormality. Mild degenerative changes. Report reported and signed by Xiang Mukherjee on 04/19/2021 1255 HISTORY: Chronic neck pain radiating to both shoulders. Neck stiffness. COMPARISON: None available TECHNIQUE: AP, lateral, bilateral obliques, and odontoid views of the cervical spine. FINDINGS: Straightening of the cervical lordosis. Cervical vertebral body heights and intervertebral disc heights are maintained. Mild multilevel gym endplate spurring. Mild multilevel facet arthropathy. No spondylolisthesis. Atlantodental interval is preserved. The lateral masses of C1 articulate symmetrically with C2. No high-grade osseous neural foraminal stenosis identified. No acute fracture. Prevertebral soft tissues appear within normal limits. IMPRESSION: No acute osseous abnormality. Mild degenerative changes. Report reported and signed by Xiang Mukherjee on 04/19/2021 1255 Normal [facility] Specialist XR Spine Lumbar 4+ Views*on 04-19-2021 XR Spine Lumbar 4+ Views* HISTORY: Low back pain radiating to right hip. Fall 3 days ago. COMPARISON: None available TECHNIQUE: AP, lateral, bilateral oblique views of the lumbar spine and AP and lateral coned-down views of the lumbosacral junction FINDINGS: Lumbar vertebral body heights are maintained. Intervertebral disc heights are maintained. Multilevel degenerative endplate spurring. Facet arthropathy at L5-S1. No acute fracture or malalignment. No spondylolysis or spondylolisthesis. Sacroiliac joints appear normal. Faint atherosclerotic ossification of the abdominal aorta. IMPRESSION: No acute osseous abnormality. Mild degenerative changes. Report reported and signed by Xiang Mukherjee on 04/19/2021 1254 Normal [facility]ist Creatinine [Mass/volume] in Urineon 12-17-2019 Creatinine (U) [Mass/Vol] 51.1 mg/dL [facility] Comment on above: No reference range e stablished Urine microalbumin measureme nt with detection limit of 20 mg/L or less (mass/volume)on 12-17-2019 Albumin DL <= 20 mg/L (U) [Mass/Vol] 0.2 mg/dL 0.0-1.8 [facility] Urine microalbumin/creatinin e mass ratioon 12-17-2019 Albumin/Creatinine DL <= 20 mg/L (U) [Mass ratio] 3.0 mg/g 0.0-30.0 [facility] Comment on above: 30-300 mg/g indicate s an increased risk for diabetic nephropathy. Greater than 300 mg/g is consistent with clinical nephropathy. (Am. J. Kidney Disease 1995, 25:107) Rapid HIV.on 04-13-2019 HIV. Negative Normal Negative [facility] Comment on above: Result Comment: Resu lts Called To Sher[place] at [facility] [place] Alta Britton And Read Back For Confirmation On 04/13/2019 14:18:54 EST. Performed By: #### 1 [id number] #### [facility] (DEFAULT) [address] [place] [address] Internal Control Pass Normal [facility] Comment on above: Performed By: #### 1 [id number] #### [facility] (DEFAULT) [address] [place] [address] C Urineon 04-05-2019 C Urine Urine Culture ordere d as a result of parameters set on specific urine dip and urine microsopic results. 60,000 cfu/ml Pseudomonas aeruginosa ORGANISM PA --- SUSCEPTIBILITY -- ORGANISM ID: 1 ANTIBIOTIC INTERPRETATION JOEY STATUS ORGANISM PAPA Amik S <=16 Verified Amox/Cla >16/8 Verified Amp R >16 Verified Amp/Sul >16/8 Verified Azt S 8 Verified Cefaz R >4 Verified Cefep S <=8 Verified Cefo 32 Verified Ceftaz S 4 Verified Ceftri >32 Verified Cefur R >16 Verified Ceph R >16 Verified Cipro S <=1 Verified Ertap >1 Verified Gent S <=2 Verified Imi S <=1 Verified Levo S <=2 Verified Nitro >64 Verified Pip/Hank S <=16 Verified Tetra >8 Verified Tobra S <=4 Verified Tri/Sulf >2/38 Verified [facility] Comment on above: Performed By: #### 1 [id number] #### [facility] (DEFAULT) [address] [place] [address] Progress Note - Nurseon 03-15 Progress Note - Nurse Call patient about needing to change antibiotic, [facility] [address] [facility] [place]. [facility] 500mg BID [facility] 7 days by Junior OJEDA [Electronically Signed on: 04/05/2019 10:43 EST] Kayy Gomez [Verified on: 04/05/2019 10:43 EST] Kayy Gomez [facility] Coding Summaryon 04-04-2019 Coding Summary CODING DATE: 04/04/2019 [facility] STATUS: Home PAYOR: Medicare ADMIT DX: REASON FOR VISIT DX: R09.81 Nasal congestion M54.5 Low back pain R35.0 Frequency of micturition FINAL DX: PRINCIPAL: J32.9 Chronic sinusitis, unspecified SECONDARY: N39.0 Urinary tract infection, site not specified PYMT PROC APC STAT DESCRIPTION DOCTOR NAME DATE NOTE: The code number assigned matches the documented diagnosis and / or procedure in the patient's chart. However, the narrative phrase printed from the coding software may appear abbreviated, or result in slightly different terminology. Coded By: Jackie Wells Date Saved: 04/04/2019 10:17 am [facility] ED Clinical Summaryon 2019 ED Clinical Summary [facility] ? Urgent Care [address] [place] [id number] Clinical Summary PERSON INFORMATION Name: ELLIS BRAXTON Age: 63 Years Sex: MALE : 1955 MRN: Acct#: Visit Reason: Urinary frequency; UC - Sinus Pain or Congestion; PAINFUL URINATION, SINUS PAIN/COGNESTION Arrival: 04/03/2019 10:30:00 Discharge: 04/03/2019 11:55:00 LOS: 000 01:25 Check In: 04/03/2019 10:30:00 Checkout: 04/03/2019 11:55:00 Address: [address] [place] [address] [place] [address] PCP: Epifanio Montelongo PROVIDER INFORMATION Provider Role Assigned Unassigned Nicole ISBELL, Nacho ED Nurse 04/03/2019 10:31:21 Amee Tirado PA-C ED PA 04/03/2019 10:33:37 VITALS INFORMATION Vital Sign Triage Latest Temperature Tympanic Temperature Temporal Artery Pulse Rate O2 Sat 98 % 98 % Respiratory Rate Blood Pressure /88 mmHg /88 mmHg MEDICAL INFORMATION Medications Given: Allergy Information: IVP dye PHYSICIAN DOCUMENTATION DISCHARGE INFORMATION: Discharge Disposition: Home Discharge Location: Home PATIENT EDUCATION INFORMATION Instructions: Sinusitis, Adult, Nadr-gq-Fihg; Urine Culture and Sensitivity Testing; Urinary Tract Infection, Adult, [id number] Follow-Up: With: Address: When: Epifanio Juan M [address] [place] [address] Business (1) Within 2 to 4 days Comments: IF DEVELOP NAUSEA, VOMITING, FEVER, WORSENING ABDOMINAL OR BACK PAIN RETURN TO ED URINATE BEFORE AND AFTER SEXUAL INTERCOURSE AVOID BATHS AND JACUZZIS AND BUBBLE BATHS FINISH ANTIBIOTIC UNTIL FINISHED. IF DEVELOP RASH OR DIARRHEA, STOP ATB AND CALL YOUR FAMILY DOCTOR. IF NO IMPROVEMENT OF SYMPTOMS AFTER 72 HRS OF STARTING ANTIBIOTIC, RECOMMEND RECHECK can use flonase or nasal spray and antihistamine such as claritin or zyrtec for nasal congestion DIAGNOSIS: 1:Viral sinusitis; 2:Urinary tract infection Patient Understands: Yes - Patient/family/caregiv er verbalizes understanding of instructions given Comment: Normal [facility] ED Patient Summaryon 020 ED Patient Summary [facility] ? Urgent Care [address] [place], [place] [id number] PATIENT DISCHARGE INSTRUCTIONS Patient Information Name: ELLIS BRAXTON Age: 63 Years Date of : 1955 Reason For Visit: Urinary frequency; UC - Sinus Pain or Congestion; PAINFUL URINATION, SINUS PAIN/COGNESTION Arrival Time: 04/03/2019 10:30:00 Primary Care Physician: Epifanio Montelongo Attending Physician: Amee Tirado PA-C Comment: Patient Education With: Address: When: Epifanio Juan M [address] [place] [address] Business (1) Within 2 to 4 days Comments: IF DEVELOP NAUSEA, VOMITING, FEVER, WORSENING ABDOMINAL OR BACK PAIN RETURN TO ED URINATE BEFORE AND AFTER SEXUAL INTERCOURSE AVOID BATHS AND JACUZZIS AND BUBBLE BATHS FINISH ANTIBIOTIC UNTIL FINISHED. IF DEVELOP RASH OR DIARRHEA, STOP ATB AND CALL YOUR FAMILY DOCTOR. IF NO IMPROVEMENT OF SYMPTOMS AFTER 72 HRS OF STARTING ANTIBIOTIC, RECOMMEND RECHECK can use flonase or nasal spray and antihistamine such as claritin or zyrtec for nasal congestion Sinusitis, Adult Sinusitis is soreness and swelling (inflammation) of your sinuses. Sinuses are hollow spaces in the bones around your face. They are located: ? Around your eyes. ? In the middle of your forehead. ? Behind your nose. ? In your cheekbones. Your sinuses and nasal passages are lined with a stringy fluid (mucus). Mucus normally drains out of your sinuses. Swelling can trap mucus in your sinuses. This lets germs like bacteria or viruses grow, and that leads to infection. Most of the time, sinusitis is caused by a virus. If bacteria is causing your infection, your doctor may have you wait and see if you get better without antibiotic medicine. You may be prescribed antibiotics if you have: ? A very bad infection. ? A weak disease-fighting (immune) system. Follow these instructions at home: Medicines ? Take, use, or apply ehxu-ugr-fxnrtsn and prescription medicines only as told by your doctor. These may include nasal sprays. ? If you were prescribed an antibiotic, take it as told by your doctor. Do not stop taking the antibiotic even if you start to feel better. Hydrate and Humidify ? Drink enough water to keep your pee (urine) pale yellow. ? Use a cool mist humidifier to keep the humidity level in your home above 50%. ? Breathe in steam for 10?15 minutes, 3?4 times a day or as told by your doctor. You can do this in the bathroom while a hot shower is running. ? Try not to spend time in cool or dry air. Rest ? Rest as much as possible. ? Sleep with your head raised (elevated). ? Make sure to get enough sleep each night. General instructions ? Put a warm, moist washcloth on your face 3?4 times a day, or as often as told by your doctor. This will help with discomfort. ? Wash your hands often with soap and water. If there is no soap and water, use hand parts sales associate. ? Do not smoke. Avoid being around people who are smoking (secondhand smoke). ? Keep all follow-up visits as told by your doctor. This is important. Contact a doctor if: ? You have a fever. ? Your symptoms get worse. ? Your symptoms do not get better within 10 days. Get help right away if: ? You have a very bad headache. ? You cannot stop throwing up (vomiting). ? You have pain or swelling around your face or eyes. ? You have trouble seeing. ? You feel confused. ? Your neck is stiff. ? You have trouble breathing. This information is not intended to replace advice given to you by your health care provider. Make sure you discuss any questions you have with your health care provider. Document Released: 08/16/2008 Document Revised: 09/09/2017 Document Reviewed: 12/24/2015 [employer] Interactive Patient Education ? 2019 [employer]. Urine Culture and Sensitivity Testing Why am I having this test? A urine culture is a test to see if bacteria or yeast grow from your urine sample. Normally, urine is mostly germ-free. Bacteria or yeast in the urine may cause a urinary tract infection (UTI). You may have this test: ? If you have symptoms of a UTI, such as: ? Frequent urination or passing small amounts of urine frequently. ? Burning or pain when urinating. ? Needing to urinate urgently. ? If you are . women are at increased risk for UTIs and are screened for UTIs routinely. What is being tested? This test checks whether any of the following are present in your urine: ? Bacteria. ? Yeast. What kind of sample is taken? A urine sample is required for this test. The urine must be collected in a way that prevents the bacteria that is always on the skin (normal tio) from getting into the sample. There are two ways to do this: ? The clean-catch method. This is the most common way of getting a clean urine sample. You may collect a clean-catch sample at home or at the lab. Your health care provider may give you sterile wipes to clean your vagina or penis to prepare for collecting a clean-catch sample. ? Inserting a small, thin tube (catheter) into the part of the body that drains urine from the bladder (urethra). This method allows urine to be collected directly from the bladder. ? In women, the urethral opening is just above the vaginal opening.? ? In men, the urethra opens at the tip of the penis. How do I prepare for this test? ? Do not urinate for about an hour before collecting the sample. ? Drink a glass of water about 20 minutes before collecting the sample. What happens during the test? Your urine sample will be placed onto plates that contain a substance that encourages bacteria and yeast to grow (agar plates). These plates will be kept at body temperature for 24?48 hours to see if bacteria, yeast, or other germs grow. Then, the plates will be examined under a microscope. Any bacteria or yeast that grows from the culture will be tested against a variety of medicines to find the medicine that works best (sensitivity testing). For a UTI caused by bacteria, several types of antibiotic medicines may be tested. How are the results reported? Your culture test results will be reported as either positive or negative. Your sensitivity test results will be reported as a list of medicines that can be used to treat your infection. What do the results mean? A positive test result means that bacteria or yeast grew from your urine sample. This may mean that you have a UTI, and you may need to start taking antibiotic or antifungal medicines based on your sensitivity test results. A negative test result means that no or few bacteria or yeast grew from your sample after 24?48 hours. This means that it is less likely that you have a UTI. If you still have symptoms, your test may be repeated. A contaminated test result means that many different types of bacteria or yeast grew in your urine sample, and your sample most likely has normal tio in it. This sample cannot be used to make a diagnosis, and your test may need to be repeated. Talk with your health care provider about what your results mean. Questions to ask your health care provider Ask your health care provider, or the department that is doing the test: ? When will my results be ready? ? How will I get my results? ? What are my treatment options? ? What other tests do I need? ? What are my next steps? Summary ? A urine culture is a test to see if bacteria or yeast grow from your urine sample. ? A urine sample may be collected using the clean-catch method or a urinary catheter. ? Your urine sample will be placed onto plates that contain a substance that encourages bacteria and yeast to grow. ? Any bacteria or yeast that grows from the culture will be tested against a variety of medicines to find the medicine that works best (sensitivity testing). This information is not intended to replace advice given to you by your health care provider. Make sure you discuss any questions you have with your health care provider. Document Released: 03/25/2005 Document Revised: 11/10/2017 Document Reviewed: 11/10/2017 [employer] Interactive Patient Education ? 2019 [employer]. Urinary Tract Infection, Adult A urinary tract infection (UTI) is an infection of any part of the urinary tract. The urinary tract includes the: ? Kidneys. ? Ureters. ? Bladder. ? Urethra. These organs make, store, and get rid of pee (urine) in the body. Follow these instructions at home: ? Take wugn-xcd-migquby and prescription medicines only as told by your doctor. ? If you were prescribed an antibiotic medicine, take it as told by your doctor. Do not stop taking the antibiotic even if you start to feel better. ? Avoid the following drinks: ? Alcohol. ? Caffeine. ? Tea. ? Carbonated drinks. ? Drink enough fluid to keep your pee clear or pale yellow. ? Keep all follow-up visits as told by your doctor. This is important. ? Make sure to: ? Empty your bladder often and completely. Do not to hold pee for long periods of time. ? Empty your bladder before and after sex. ? Wipe from front to back after a bowel movement if you are female. Use each tissue one time when you wipe. Contact a doctor if: ? You have back pain. ? You have a fever. ? You feel sick to your stomach (nauseous). ? You throw up (vomit). ? Your symptoms do not get better after 3 days. ? Your symptoms go away and then come back. Get help right away if: ? You have very bad back pain. ? You have very bad lower belly (abdominal) pain. ? You are throwing up and cannot keep down any medicines or water. This information is not intended to replace advice given to you by your health care provider. Make sure you discuss any questions you have with your health care provider. Document Released: 08/16/2008 Document Revised: 08/23/2017 Document Reviewed: 01/19/2016 [employer]) Interactive Patient Education ? 2019 [employer] Medication Information: The exam and treatment you received today in the [facility] Emergency Department were for an urgent problem and are not intended as complete care. It is important for you to follow up with a doctor, nurse practitioner, or physician?s assistant professor of psychology for ongoing care. If your symptoms become worse or you do not improve as expected and you are unable to reach your usual health care provider, you should return to the Emergency Department, we are available 24 hours a day. For those patients who have received Radiology results, the interpretation of your X-ray as given to you by our Emergency Department physician is only a preliminary report. The Radiologist will review your films and if there is a change in the diagnosis you will be notified by phone. Please make sure you have provided a working phone number so we can reach you if necessary. In the event that you had a lab culture while you were a patient in the Emergency Department, you will be notified by phone if there is a need to change your antibiotic. Please make sure you have provided a working phone number so we can reach you if necessary. [facility] Emergency Department has provided you with a complete list of medications post discharge. Please inform your head refrigeration engineer/provider of your visit and for further instruction on these medications. Any specific questions regarding your chronic medications and dosages should be discussed with your primary care physician(s) and/or pharmacist. New Medications [facility]/pharmacy #[id number], [address], [place] [id number], [phone] nitrofurantoin (Macrobid 100 mg oral capsule) 1 cap(s) Oral 2 times a day for 5 Days. Refills: 0. Medications to Continue That Have Not Changed Other Medications amLODIPine (amLODIPine 5 mg oral tablet) 1 tab(s) Oral every day. atorvastatin (atorvastatin 80 mg oral tablet) 1 tab(s) Oral every day. clopidogrel (Plavix 75 mg oral tablet) 1 tab(s) Oral every day. ezetimibe (ezetimibe 10 mg oral tablet) 1 tab(s) Oral every day. gabapentin 600 Milligram Oral 3 times a day. lisinopril (lisinopril 20 mg oral tablet) 1 tab(s) Oral every day. Misc Prescription oxybutynin (oxybutynin 5 mg oral tablet) 1 tab(s) Oral 2 times a day as needed Other (see comment). tamsulosin (Flomax 0.4 mg oral capsule) 1 cap(s) Oral every day. Visit Information Visit Diagnosis: Diagnoses This Visit UC - Sinus Pain or Congestion ([id number]) Urinary frequency ([id number]) Urinary tract infection (N39.0) Viral sinusitis (J32.9) If you received any narcotics, sedation, or any other medication that causes drowsiness for the next 24 hours, unless otherwise directed: ? Do not drive a car. ? Do not operate machinery such as power tools, lawn mowers, drills, sewing machines, or stoves ? Avoid alcoholic beverages and drugs for allergies, nerves, or sleep ? Do not make important personal or business decisions or sign any legal documents Reason for Visit: head congestion, freq., small amt with urination Allergies: Substance Reaction Symptoms Type Comments IVP dye Drug Vital Signs: Vitals and Measurements this Visit (last charted value for your 04/03/2019 visit) Vital Signs This Visit Temperature Temporal: 36.6 DegC Peripheral Pulse Rate: 82 bpm Respiratory Rate: 18 br/min Systolic Blood Pressure: 140 mmHg Diastolic Blood Pressure: 88 mmHg SpO2: 98 % Problems List: Problem Onset Comments Cardiac disease Diabetes Stented coronary artery Major Tests and Procedures: The following procedures and tests were performed during your ED visit. Laboratory UA Microscopic1 Urine, Collected, 04/03/19 10:56:00 EST, Stat collect, Stop date 04/03/19 10:56:00 EST, Nurse collect UA w Culture if Ind Standard Urine, Stat collect, 04/03/19 10:42:00 EST, Stop date 04/03/19 10:42:00 EST, Nurse collect Urine Culture U CleanCatch, Collected, 04/03/19 10:56:00 EST, Stat collect, Stop date 04/03/19 10:56:00 EST, Nurse collect, [id number] Radiology Cardiology Viruses or Bacteria What?s got you sick? Antibiotics only treat bacterial infections. Viral illnesses cannot be treated with antibiotics. When an antibiotic is not prescribed, ask your healthcare professional for tips on how to relieve symptoms and feel better. Usual Cause Illness Viruses Bacteria Antibiotic Needed Cold/Runny Nose NO Bronchitis/Chest Cold (in otherwise healthy children and adults) NO Whooping Cough Yes Flu NO Strep Throat Yes Sore Throat (except strep) NO Fluid in the middle ear (otitis media with effusion) NO Urinary Tract Infection Yes Antibiotics Aren?t Always the Answer www.cdc.gov/getsmart GET SMART Know When Antibiotics Work [place] Department of Health and Human Services Centers for Disease Control and Prevention November 2013 [facility] Patient Handouton 04-03-2019 Patient Handout Patient Education Materials Follows:Disease Sinusitis, Adult Sinusitis is soreness and swelling (inflammation) of your sinuses. Sinuses are hollow spaces in the bones around your face. They are located: ? Around your eyes. ? In the middle of your forehead. ? Behind your nose. ? In your cheekbones. Your sinuses and nasal passages are lined with a stringy fluid (mucus). Mucus normally drains out of your sinuses. Swelling can trap mucus in your sinuses. This lets germs like bacteria or viruses grow, and that leads to infection. Most of the time, sinusitis is caused by a virus. If bacteria is causing your infection, your doctor may have you wait and see if you get better without antibiotic medicine. You may be prescribed antibiotics if you have: ? A very bad infection. ? A weak disease-fighting (immune) system. Follow these instructions at home: Medicines ? Take, use, or apply grow-rus-duahqcr and prescription medicines only as told by your doctor. These may include nasal sprays. ? If you were prescribed an antibiotic, take it as told by your doctor. Do not stop taking the antibiotic even if you start to feel better. Hydrate and Humidify ? Drink enough water to keep your pee (urine) pale yellow. ? Use a cool mist humidifier to keep the humidity level in your home above 50%. ? Breathe in steam for 10?15 minutes, 3?4 times a day or as told by your doctor. You can do this in the bathroom while a hot shower is running. ? Try not to spend time in cool or dry air. Rest ? Rest as much as possible. ? Sleep with your head raised (elevated). ? Make sure to get enough sleep each night. General instructions ? Put a warm, moist washcloth on your face 3?4 times a day, or as often as told by your doctor. This will help with discomfort. ? Wash your hands often with soap and water. If there is no soap and water, use hand parts sales associate. ? Do not smoke. Avoid being around people who are smoking (secondhand smoke). ? Keep all follow-up visits as told by your doctor. This is important. Contact a doctor if: ? You have a fever. ? Your symptoms get worse. ? Your symptoms do not get better within 10 days. Get help right away if: ? You have a very bad headache. ? You cannot stop throwing up (vomiting). ? You have pain or swelling around your face or eyes. ? You have trouble seeing. ? You feel confused. ? Your neck is stiff. ? You have trouble breathing. This information is not intended to replace advice given to you by your health care provider. Make sure you discuss any questions you have with your health care provider. Document Released: 08/16/2008 Document Revised: 09/09/2017 Document Reviewed: 12/24/2015 [employer]) Interactive Patient Education ? 2019 [employer]. Urine Culture and Sensitivity Testing Why am I having this test? A urine culture is a test to see if bacteria or yeast grow from your urine sample. Normally, urine is mostly germ-free. Bacteria or yeast in the urine may cause a urinary tract infection (UTI). You may have this test: ? If you have symptoms of a UTI, such as: ? Frequent urination or passing small amounts of urine frequently. ? Burning or pain when urinating. ? Needing to urinate urgently. ? If you are . women are at increased risk for UTIs and are screened for UTIs routinely. What is being tested? This test checks whether any of the following are present in your urine: ? Bacteria. ? Yeast. What kind of sample is taken? A urine sample is required for this test. The urine must be collected in a way that prevents the bacteria that is always on the skin (normal tio) from getting into the sample. There are two ways to do this: ? The clean-catch method. This is the most common way of getting a clean urine sample. You may collect a clean-catch sample at home or at the lab. Your health care provider may give you sterile wipes to clean your vagina or penis to prepare for collecting a clean-catch sample. ? Inserting a small, thin tube (catheter) into the part of the body that drains urine from the bladder (urethra). This method allows urine to be collected directly from the bladder. ? In women, the urethral opening is just above the vaginal opening.? ? In men, the urethra opens at the tip of the penis. How do I prepare for this test? ? Do not urinate for about an hour before collecting the sample. ? Drink a glass of water about 20 minutes before collecting the sample. What happens during the test? Your urine sample will be placed onto plates that contain a substance that encourages bacteria and yeast to grow (agar plates). These plates will be kept at body temperature for 24?48 hours to see if bacteria, yeast, or other germs grow. Then, the plates will be examined under a microscope. Any bacteria or yeast that grows from the culture will be tested against a variety of medicines to find the medicine that works best (sensitivity testing). For a UTI caused by bacteria, several types of antibiotic medicines may be tested. How are the results reported? Your culture test results will be reported as either positive or negative. Your sensitivity test results will be reported as a list of medicines that can be used to treat your infection. What do the results mean? A positive test result means that bacteria or yeast grew from your urine sample. This may mean that you have a UTI, and you may need to start taking antibiotic or antifungal medicines based on your sensitivity test results. A negative test result means that no or few bacteria or yeast grew from your sample after 24?48 hours. This means that it is less likely that you have a UTI. If you still have symptoms, your test may be repeated. A contaminated test result means that many different types of bacteria or yeast grew in your urine sample, and your sample most likely has normal tio in it. This sample cannot be used to make a diagnosis, and your test may need to be repeated. Talk with your health care provider about what your results mean. Questions to ask your health care provider Ask your health care provider, or the department that is doing the test: ? When will my results be ready? ? How will I get my results? ? What are my treatment options? ? What other tests do I need? ? What are my next steps? Summary ? A urine culture is a test to see if bacteria or yeast grow from your urine sample. ? A urine sample may be collected using the clean-catch method or a urinary catheter. ? Your urine sample will be placed onto plates that contain a substance that encourages bacteria and yeast to grow. ? Any bacteria or yeast that grows from the culture will be tested against a variety of medicines to find the medicine that works best (sensitivity testing). This information is not intended to replace advice given to you by your health care provider. Make sure you discuss any questions you have with your health care provider. Document Released: 03/25/2005 Document Revised: 11/10/2017 Document Reviewed: 11/10/2017 [employer] Interactive Patient Education ? 2019 [employer]. Obstetrics and Gynecology Urinary Tract Infection, Adult A urinary tract infection (UTI) is an infection of any part of the urinary tract. The urinary tract includes the: ? Kidneys. ? Ureters. ? Bladder. ? Urethra. These organs make, store, and get rid of pee (urine) in the body. Follow these instructions at home: ? Take ulbo-kng-hyglnqe and prescription medicines only as told by your doctor. ? If you were prescribed an antibiotic medicine, take it as told by your doctor. Do not stop taking the antibiotic even if you start to feel better. ? Avoid the following drinks: ? Alcohol. ? Caffeine. ? Tea. ? Carbonated drinks. ? Drink enough fluid to keep your pee clear or pale yellow. ? Keep all follow-up visits as told by your doctor. This is important. ? Make sure to: ? Empty your bladder often and completely. Do not to hold pee for long periods of time. ? Empty your bladder before and after sex. ? Wipe from front to back after a bowel movement if you are female. Use each tissue one time when you wipe. Contact a doctor if: ? You have back pain. ? You have a fever. ? You feel sick to your stomach (nauseous). ? You throw up (vomit). ? Your symptoms do not get better after 3 days. ? Your symptoms go away and then come back. Get help right away if: ? You have very bad back pain. ? You have very bad lower belly (abdominal) pain. ? You are throwing up and cannot keep down any medicines or water. This information is not intended to replace advice given to you by your health care provider. Make sure you discuss any questions you have with your health care provider. Document Released: 08/16/2008 Document Revised: 08/23/2017 Document Reviewed: 01/19/2016 [employer] Interactive Patient Education ? 2019 [employer] [facility] UA [id number] 04-03-2019 RBC (U) [#/Vol] 5-10 [facility] Comment on above: Order Comment: Urina lysis Microscopic order added on by [employer] Expert Rules system. Performed By: #### 1 [id number], [id number] #### [facility] (DEFAULT) [address] [place] [address] UA Amorph. 1+ [facility] Comment on above: Order Comment: Urina lysis Microscopic order added on by [employer] Expert Rules system. Performed By: #### 1 [id number] #### [facility] (DEFAULT) [address] [place] [address] UA Bacteria Trace [facility] Comment on above: Order Comment: Urina lysis Microscopic order added on by [employer] Rules system. Performed By: #### 1 [id number] #### [facility] (DEFAULT) [address] [place] [address] UA Squam Epi Rare [facility] Comment on above: Order Comment: Urina lysis Microscopic order added on by [employer] Expert Rules system. Performed By: #### 1 [id number] #### [facility] (DEFAULT) [address] [place] [address] UA WBC >100 [facility] Comment on above: Order Comment: Urina lysis Microscopic order added on by [employer] Rules system. Performed By: #### 1 [id number], [id number] #### [facility] (DEFAULT) [address] [place] [address] UA w Culture if Ind Standard on 04-03-2019 Breakpoint UA [facility] Comment on above: Performed By: #### 1 [id number], [id number] #### [facility] (DEFAULT) [address] [place] [address] 40195 Color (U) Yellow Normal [facility] Comment on above: Performed By: #### 1 [id number], [id number] #### [facility] (DEFAULT) [address] [place] [address] 90857 Culture? Yes Normal [facility] Comment on above: Performed By: #### 1 [id number], [id number], [id number] #### [facility] (DEFAULT) [address] [place] [address] 82141 Glucose (U) [Mass/Vol] Negative Normal [facility] Comment on above: Performed By: #### 1 [id number], [id number], [id number] #### [facility] (DEFAULT) [address] [place] [address] 84856 Ketones Ql (U) Negative Normal [facility] Comment on above: Performed By: #### 1 [id number], [id number] #### [facility] (DEFAULT) [address] [place] [address] 00753 Micro? Indicated [facility] Comment on above: Performed By: #### 1 [id number], [id number], [id number] #### [facility] (DEFAULT) [address] [place] [address] 12830 UA Bilirubin Negative Normal [facility] Comment on above: Performed By: #### 1 [id number], [id number], [id number] #### [facility] (DEFAULT) [address] [place] [address] 86492 UA Blood MODERATE Abnormal NEGATIVE [facility] Comment on above: Performed By: #### 1 [id number], [id number], [id number] #### [facility] (DEFAULT) [address] [place] [address] UA Clarity CLEAR Normal CLEAR [facility] Comment on above: Performed By: #### 1 [id number], [id number], [id number] #### [facility] (DEFAULT) [address] [place] [address] 52860 UA Leuk Est LARGE Abnormal NEGATIVE [facility] Comment on above: Performed By: #### 1 [id number], [id number], [id number] #### [facility] (DEFAULT) [address] [place] [address] UA Nitrite Negative Normal NEGATIVE [facility] Comment on above: Performed By: #### 1 [id number], [id number], [id number] #### [facility] (DEFAULT) [address] [place] [address] UA pH 6.0 Normal 5-8 [facility] Comment on above: Performed By: #### 1 [id number], [id number], [id number] #### [facility] (DEFAULT) [address] [place] [address] UA Protein 30 mg/dL Abnormal NEGATIVE [facility] Comment on above: Performed By: #### 1 [id number], [id number], [id number] #### [facility] (DEFAULT) [address] [place] [address] UA Spec Grav 1.020 Normal 1.001-1.035 [facility] Comment on above: Performed By: #### 1 [id number], [id number], [id number] #### [facility] (DEFAULT) [address] [place] [address] UA Urobilinogen 0.2 mg/dL Normal 0.2-1.0 [facility] Comment on above: Performed By: #### 1 [id number], [id number], [id number] #### [facility] (DEFAULT) [address] [place] [address] Urine Source Clean Catch Normal [facility] Comment on above: Performed By: #### 1 [id number], [id number], [id number] #### [facility] (DEFAULT) [address] [place] [address] Urgent Care Note- Provideron 04-03-2019 Urgent Care Note- Provider Patient: ELLIS BRAXTON Age: 63 years Sex: MALE : 1955 Associated Diagnoses: Viral sinusitis; UC - Sinus Pain or Congestion; Urinary frequency; Urinary tract infection Author: Amee Tirado PA-C Basic Information Time seen: Date 04/03/2019. History source: Patient. History limitation: None. History of Present Illness 63 yo M presents with a couple of complaints. first complaint is sinus congestion x 5 days. he hasnt been taking anything OTC. denies fever, sore throat, ear pain, cough, SOB or CP. second complaint is b/l lumbar pain with urinary frequency x 3 days. he has hx of UTIs. he's been taking cranberry pills OTC. denies fever, abd pain, n/v/d, risk of STD. Review of Systems Additional review of systems information: All other systems reviewed and otherwise negative. Health Status Allergies: No active allergies have been recorded.. Past Medical/ Family/ Social History Medical history: No active or resolved past medical history items have been selected or recorded.. Surgical history: No active procedure history items have been selected or recorded.. Family history: No family history items have been selected or recorded.. Social history: Social & Psychosocial Habits No Data Available . Problem list: No qualifying data available . Physical Examination Vital Signs Vital Signs 04/03/2019 10:33 EST Temperature Temporal 36.6 DegC Peripheral Pulse Rate 82 bpm Respiratory Rate 18 br/min Systolic Blood Pressure 140 mmHg Diastolic Blood Pressure 88 mmHg SpO2 98 % . General: Alert, no acute distress. Skin: Warm, dry, pink, intact. Head: Normocephalic, atraumatic. Neck: Supple, trachea midline. Eye: Extraocular movements are intact. Ears, nose, mouth and throat: Tympanic membranes clear, oral mucosa moist, no pharyngeal erythema or exudate, Sinus: Bilateral, frontal, maxillary, no tenderness, no swelling, no erythema. Cardiovascular: Regular rate and rhythm. Respiratory: Symmetrical chest wall expansion. Gastrointestinal: Soft, Nontender. Back: Nontender. Musculoskeletal: Normal ROM. Neurological: Alert and oriented to person, place, time, and situation. Psychiatric: Cooperative, appropriate mood & affect. Medical Decision Making Rationale: viral sinusitis and can use OTC cold meds such as flonase and antihisamine UA positive for UTI. macrobid rx. educated on SE of ATB. educated on when to return to ER. if any new or worsening sx, needs rechecked. answered all questions. pt in agreement with tx. awaiting urine culture.. Results review: Lab results : Lab Flowsheet 04/03/2019 10:56 EST UA Color Yellow UA Clarity CLEAR UA Glucose NEGATIVE UA Ketones NEGATIVE UA Spec Grav 1.020 UA Blood MODERATE UA pH 6.0 UA Protein 30 mg/dL UA Urobilinogen 0.2 mg/dL UA Nitrite NEGATIVE UA Leuk Est LARGE UA Bilirubin NEGATIVE Urine Source Clean Catch Micro? Indicated Culture? Yes UA WBC >100 UA RBC 5-10 UA Squam Epi Rare UA Bacteria Trace UA Amorph. 1+ . Impression and Plan Diagnosis Viral sinusitis ([id number] J32.9, Discharge, Medical) Complaint of UC - Sinus Pain or Congestion (PNED [id number], Reason For Visit, Medical) Complaint of Urinary frequency (PNED [id number], Reason For Visit, Medical) Viral sinusitis (RKT56-CH J32.9, Discharge, Medical) Urinary tract infection (JPN22-FW N39.0, Discharge, Medical) Plan Condition: Stable. Disposition: Discharged: Time 04/03/2019 11:50:00, to home. Prescriptions: Launch prescriptions Pharmacy: Macrobid 100 mg oral capsule (Prescribe): 100 mg = 1 cap(s), PO, BID, for 5 day(s), 10 cap(s), 0 Refill(s). Patient was given the following educational materials: Urinary Tract Infection, Adult, Usqk-zb-Nkfj, Urine Culture and Sensitivity Testing, Sinusitis, Adult, Jeus-so-Bhyr, Sinusitis, Adult, Jaqp-qj-Wnnz, Urine Culture and Sensitivity Testing, Urinary Tract Infection, Adult, Zqit-nu-Ocgg. Follow up with: Epifanio Montelongo Within 2 to 4 days IF DEVELOP NAUSEA, VOMITING, FEVER, WORSENING ABDOMINAL OR BACK PAIN RETURN TO ED URINATE BEFORE AND AFTER SEXUAL INTERCOURSE AVOID BATHS AND JACUZZIS AND BUBBLE BATHS FINISH ANTIBIOTIC UNTIL FINISHED. IF DEVELOP RASH OR DIARRHEA, STOP ATB AND CALL YOUR FAMILY DOCTOR. IF NO IMPROVEMENT OF SYMPTOMS AFTER 72 HRS OF STARTING ANTIBIOTIC, RECOMMEND RECHECK can use flonase or nasal spray and antihistamine such as claritin or zyrtec for nasal congestion . Counseled: Patient, Regarding diagnosis, Regarding diagnostic results, Regarding treatment plan, Regarding prescription, Patient indicated understanding of instructions. Normal [facility] [address] Urgent Care Record [facility] ? Urgent Care [address] [place] [address] PATIENT DISCHARGE INSTRUCTIONS Patient Information Name: ELLIS BRAXTON Age: 63 Years Date of : 1955 [facility]: [id number] Reason For Visit: Urinary frequency; UC - Sinus Pain or Congestion; PAINFUL URINATION, SINUS PAIN/COGNESTION Arrival Time: 04/03/2019 10:30:00 Primary Care Physician: Epifanio Montelongo Attending Physician: Amee Tirado PA-C Comment: Visit Diagnosis: Diagnoses This Visit UC - Sinus Pain or Congestion ([id number]) Urinary frequency ([id number]) Urinary tract infection (N39.0) Viral sinusitis (J32.9) If you received any narcotics, sedation, or any other medication that causes drowsiness for the next 24 hours, unless otherwise directed: ? Do not drive a car. ? Do not operate machinery such as power tools, lawn mowers, drills, sewing machines, or stoves ? Avoid alcoholic beverages and drugs for allergies, nerves, or sleep ? Do not make important personal or business decisions or sign any legal documents With: Address: When: Epifanio Montelongo [address] [place], [place] [id number] Business (1) Within 2 to 4 days Comments: IF DEVELOP NAUSEA, VOMITING, FEVER, WORSENING ABDOMINAL OR BACK PAIN RETURN TO ED URINATE BEFORE AND AFTER SEXUAL INTERCOURSE AVOID BATHS AND JACUZZIS AND BUBBLE BATHS FINISH ANTIBIOTIC UNTIL FINISHED. IF DEVELOP RASH OR DIARRHEA, STOP ATB AND CALL YOUR FAMILY DOCTOR. IF NO IMPROVEMENT OF SYMPTOMS AFTER 72 HRS OF STARTING ANTIBIOTIC, RECOMMEND RECHECK can use flonase or nasal spray and antihistamine such as claritin or zyrtec for nasal congestion Medication Information: The exam and treatment you received today in the [facility] were for an urgent problem and are not intended as complete care. It is important for you to follow up with a doctor, nurse practitioner, or physician?s assistant professor of psychology for ongoing care. If your symptoms become worse or you do not improve as expected and you are unable to reach your usual health care provider, you should return to the Emergency Department, we are available 24 hours a day. For those patients who have received Radiology results, the interpretation of your X-ray as given to you by our Urgent Care physician is only a preliminary report. The Radiologist will review your films and if there is a change in the diagnosis you will be notified by phone. Please make sure you have provided a working phone number so we can reach you if necessary. In the event that you had a lab culture while you were a patient in the Urgent Care, you will be notified by phone if there is a need to change your antibiotic. Please make sure you have provided a working phone number so we can reach you if necessary. [facility] has provided you with a complete list of medications post discharge. Please inform your head refrigeration engineer/provider of your visit and for further instruction on these medications. Any specific questions regarding your chronic medications and dosages should be discussed with your primary care physician(s) and/or pharmacist. New Medications [facility]/pharmacy #[id number], [address], [place] [id number], [phone] nitrofurantoin (Macrobid 100 mg oral capsule) 1 cap(s) Oral 2 times a day for 5 Days. Refills: 0. Medications to Continue That Have Not Changed Other Medications amLODIPine (amLODIPine 5 mg oral tablet) 1 tab(s) Oral every day. atorvastatin (atorvastatin 80 mg oral tablet) 1 tab(s) Oral every day. clopidogrel (Plavix 75 mg oral tablet) 1 tab(s) Oral every day. ezetimibe (ezetimibe 10 mg oral tablet) 1 tab(s) Oral every day. gabapentin 600 Milligram Oral 3 times a day. lisinopril (lisinopril 20 mg oral tablet) 1 tab(s) Oral every day. Misc Prescription oxybutynin (oxybutynin 5 mg oral tablet) 1 tab(s) Oral 2 times a day as needed Other (see comment). tamsulosin (Flomax 0.4 mg oral capsule) 1 cap(s) Oral every day. Visit Information Allergies: Substance Reaction Symptoms Type Comments IVP dye Drug Vital Signs: Vitals and Measurements this Visit (last charted value for your 04/03/2019 visit) Vital Signs This Visit Temperature Temporal: 36.6 DegC Peripheral Pulse Rate: 82 bpm Respiratory Rate: 18 br/min Systolic Blood Pressure: 140 mmHg Diastolic Blood Pressure: 88 mmHg SpO2: 98 % Problems List: Problem Onset Comments Cardiac disease Diabetes Stented coronary artery Patient Education Sinusitis, Adult Sinusitis is soreness and swelling (inflammation) of your sinuses. Sinuses are hollow spaces in the bones around your face. They are located: ? Around your eyes. ? In the middle of your forehead. ? Behind your nose. ? In your cheekbones. Your sinuses and nasal passages are lined with a stringy fluid (mucus). Mucus normally drains out of your sinuses. Swelling can trap mucus in your sinuses. This lets germs like bacteria or viruses grow, and that leads to infection. Most of the time, sinusitis is caused by a virus. If bacteria is causing your infection, your doctor may have you wait and see if you get better without antibiotic medicine. You may be prescribed antibiotics if you have: ? A very bad infection. ? A weak disease-fighting (immune) system. Follow these instructions at home: Medicines ? Take, use, or apply nzjv-yxf-zkkwimv and prescription medicines only as told by your doctor. These may include nasal sprays. ? If you were prescribed an antibiotic, take it as told by your doctor. Do not stop taking the antibiotic even if you start to feel better. Hydrate and Humidify ? Drink enough water to keep your pee (urine) pale yellow. ? Use a cool mist humidifier to keep the humidity level in your home above 50%. ? Breathe in steam for 10?15 minutes, 3?4 times a day or as told by your doctor. You can do this in the bathroom while a hot shower is running. ? Try not to spend time in cool or dry air. Rest ? Rest as much as possible. ? Sleep with your head raised (elevated). ? Make sure to get enough sleep each night. General instructions ? Put a warm, moist washcloth on your face 3?4 times a day, or as often as told by your doctor. This will help with discomfort. ? Wash your hands often with soap and water. If there is no soap and water, use hand parts sales associate. ? Do not smoke. Avoid being around people who are smoking (secondhand smoke). ? Keep all follow-up visits as told by your doctor. This is important. Contact a doctor if: ? You have a fever. ? Your symptoms get worse. ? Your symptoms do not get better within 10 days. Get help right away if: ? You have a very bad headache. ? You cannot stop throwing up (vomiting). ? You have pain or swelling around your face or eyes. ? You have trouble seeing. ? You feel confused. ? Your neck is stiff. ? You have trouble breathing. This information is not intended to replace advice given to you by your health care provider. Make sure you discuss any questions you have with your health care provider. Document Released: 08/16/2008 Document Revised: 09/09/2017 Document Reviewed: 12/24/2015 [employer] Interactive Patient Education ? 2019 [employer]. Urine Culture and Sensitivity Testing Why am I having this test? A urine culture is a test to see if bacteria or yeast grow from your urine sample. Normally, urine is mostly germ-free. Bacteria or yeast in the urine may cause a urinary tract infection (UTI). You may have this test: ? If you have symptoms of a UTI, such as: ? Frequent urination or passing small amounts of urine frequently. ? Burning or pain when urinating. ? Needing to urinate urgently. ? If you are . women are at increased risk for UTIs and are screened for UTIs routinely. What is being tested? This test checks whether any of the following are present in your urine: ? Bacteria. ? Yeast. What kind of sample is taken? A urine sample is required for this test. The urine must be collected in a way that prevents the bacteria that is always on the skin (normal tio) from getting into the sample. There are two ways to do this: ? The clean-catch method. This is the most common way of getting a clean urine sample. You may collect a clean-catch sample at home or at the lab. Your health care provider may give you sterile wipes to clean your vagina or penis to prepare for collecting a clean-catch sample. ? Inserting a small, thin tube (catheter) into the part of the body that drains urine from the bladder (urethra). This method allows urine to be collected directly from the bladder. ? In women, the urethral opening is just above the vaginal opening.? ? In men, the urethra opens at the tip of the penis. How do I prepare for this test? ? Do not urinate for about an hour before collecting the sample. ? Drink a glass of water about 20 minutes before collecting the sample. What happens during the test? Your urine sample will be placed onto plates that contain a substance that encourages bacteria and yeast to grow (agar plates). These plates will be kept at body temperature for 24?48 hours to see if bacteria, yeast, or other germs grow. Then, the plates will be examined under a microscope. Any bacteria or yeast that grows from the culture will be tested against a variety of medicines to find the medicine that works best (sensitivity testing). For a UTI caused by bacteria, several types of antibiotic medicines may be tested. How are the results reported? Your culture test results will be reported as either positive or negative. Your sensitivity test results will be reported as a list of medicines that can be used to treat your infection. What do the results mean? A positive test result means that bacteria or yeast grew from your urine sample. This may mean that you have a UTI, and you may need to start taking antibiotic or antifungal medicines based on your sensitivity test results. A negative test result means that no or few bacteria or yeast grew from your sample after 24?48 hours. This means that it is less likely that you have a UTI. If you still have symptoms, your test may be repeated. A contaminated test result means that many different types of bacteria or yeast grew in your urine sample, and your sample most likely has normal tio in it. This sample cannot be used to make a diagnosis, and your test may need to be repeated. Talk with your health care provider about what your results mean. Questions to ask your health care provider Ask your health care provider, or the department that is doing the test: ? When will my results be ready? ? How will I get my results? ? What are my treatment options? ? What other tests do I need? ? What are my next steps? Summary ? A urine culture is a test to see if bacteria or yeast grow from your urine sample. ? A urine sample may be collected using the clean-catch method or a urinary catheter. ? Your urine sample will be placed onto plates that contain a substance that encourages bacteria and yeast to grow. ? Any bacteria or yeast that grows from the culture will be tested against a variety of medicines to find the medicine that works best (sensitivity testing). This information is not intended to replace advice given to you by your health care provider. Make sure you discuss any questions you have with your health care provider. Document Released: 03/25/2005 Document Revised: 11/10/2017 Document Reviewed: 11/10/2017 [employer] Interactive Patient Education ? 2019 [employer]. Urinary Tract Infection, Adult A urinary tract infection (UTI) is an infection of any part of the urinary tract. The urinary tract includes the: ? Kidneys. ? Ureters. ? Bladder. ? Urethra. These organs make, store, and get rid of pee (urine) in the body. Follow these instructions at home: ? Take wjus-ksu-tkumnky and prescription medicines only as told by your doctor. ? If you were prescribed an antibiotic medicine, take it as told by your doctor. Do not stop taking the antibiotic even if you start to feel better. ? Avoid the following drinks: ? Alcohol. ? Caffeine. ? Tea. ? Carbonated drinks. ? Drink enough fluid to keep your pee clear or pale yellow. ? Keep all follow-up visits as told by your doctor. This is important. ? Make sure to: ? Empty your bladder often and completely. Do not to hold pee for long periods of time. ? Empty your bladder before and after sex. ? Wipe from front to back after a bowel movement if you are female. Use each tissue one time when you wipe. Contact a doctor if: ? You have back pain. ? You have a fever. ? You feel sick to your stomach (nauseous). ? You throw up (vomit). ? Your symptoms do not get better after 3 days. ? Your symptoms go away and then come back. Get help right away if: ? You have very bad back pain. ? You have very bad lower belly (abdominal) pain. ? You are throwing up and cannot keep down any medicines or water. This information is not intended to replace advice given to you by your health care provider. Make sure you discuss any questions you have with your health care provider. Document Released: 08/16/2008 Document Revised: 08/23/2017 Document Reviewed: 01/19/2016 [employer] Patient Education ? 2019 [employer] Viruses or Bacteria What?s got you sick? Antibiotics only treat bacterial infections. Viral illnesses cannot be treated with antibiotics. When an antibiotic is not prescribed, ask your healthcare professional for tips on how to relieve symptoms and feel better. Usual Cause Illness Viruses Bacteria Antibiotic Needed Cold/Runny Nose NO Bronchitis/Chest Cold (in otherwise healthy children and adults) NO Whooping Cough Yes Flu NO Strep Throat Yes Sore Throat (except strep) NO Fluid in the middle ear (otitis media with effusion) NO Urinary Tract Infection Yes Antibiotics Aren?t Always the Answer www.cdc.gov/getsmart GET SMART Know When Antibiotics Work [place]. Department of Health and Human Services Centers for Disease Control and Prevention November 2013 [facility] Body fluid albumin measureme nt (mass/volume)on 04-03-2018 Albumin (Body fld) [Mass/Vol] 3.8 g/dL 3.2-5.5 [facility] Cholesterol [Mass/volume] in Serum or Plasmaon 04-03-2018 Cholesterol [Mass/Vol] 107 mg/dL 140-200 [facility] Comment on above: Chol less than 200 m g/dl low risk Chol 201-239 mg/dl borderline risk Chol 240 mg/dl and greater high risk Cholesterol in LDL Calc [Mas s/Vol]on 04-03-2018 Cholesterol in LDL [Mass/Vol] 55 mg/dL 0-100 [facility] Comment on above: LDL ATP III CLASSIFI CATION LDL less than 100 mg/dL Optimal LDL 100-129 mg/dL Near or above optimal LDL 130-159 mg/dL Borderline high LDL 160-189 mg/dL High LDL greater than 189 mg/dL Very high Cholesterol in VLDL Calc [Ma ss/Vol]on 04-03-2018 Cholesterol in VLDL [Mass/Vol] 6 mg/dL [facility] Creatinine and Glomerular fi ltration rate.predicted panel (S/P/Bld)on 04-03-2018 Creatinine [Mass/Vol] 0.83 mg/dL 0.64-1.27 [facility] Estimated glomerular filtrat ion rate (GFR) non- Americanon 04-03-2018 GFR/1.73 sq M.predicted among non-blacks MDRD (S/P/Bld) [Vol rate/Area] mL/min/{1.73_m2} [facility] Laboratory - Chemistry and C hemistry - challengeon 04-03-2018 Cholesterol.total/Lena sterol in HDL [Mass ratio] 2.3 {ratio} <5.0 [facility] GFR/1.73 sq M.predicted among blacks MDRD (S/P/Bld) [Vol rate/Area] mL/min/{1.73_m2} [facility] Comment on above: GFR estimated refere nce range: According to KDOQI guidelines, <60 ml/min/1.73m2 is sufficient to diagnose a patient with chronic kidney disease. No Panel Informationon 04-03 Pharmacy Creatinine Clearance (Chem N/A [facility] Phosphate [Mass/volume] in S curly or Plasmaon 04-03-2018 Phosphate [Mass/Vol] 3.6 mg/dL 2.5-4.6 [facility] Serum or plasma calcidiol me asurement (mass/volume)on 04-03-2018 25-hydroxyvitamin D3 [Mass/Vol] 31.8 ng/mL 30-100 [facility] Comment on above: VITAMIN D STATUS 25( OH)VITAMIN D RANGE (ng/mL) Deficient <20 Insufficient 20 to <30 Sufficient 30 to 100 Reference: Annalisa MF,Seamus NC, Ana CHEUNG, et al. Evaluation,treatment, and prevention of vitamin D deficiency; an Endocrine Society clinical practice guideline. JCEM. 2010; 96(7):1911-30. Serum or plasma calcium jonathan urement (mass/volume)on 04-03-2018 Calcium [Mass/Vol] 8.9 mg/dL 8.2-10.2 [facility] Serum or plasma chloride eric surement (moles/volume)on 04-03-2018 Chloride [Moles/Vol] 102 mmol/L 95-114 [facility] Serum or plasma glucose jonathan urement (mass/volume)on 04-03-2018 Glucose [Mass/Vol] 80 mg/dL 70-100 [facility] Comment on above: ADA recommended refe rence range Random Glucose Reference Range is dependent on time and content of last meal. Glucose of more than 200 mg/dL in a nonstressed, ambulatory subject supports the diagnosis of Diabetes Mellitus. Serum or plasma high density lipoprotein (HDL) cholesterol measurementon 04-03-2018 Cholesterol in HDL [Mass/Vol] 46 mg/dL 29-71 [facility] Comment on above: HDL CHOL ATP-III CLA SSIFICATION Cardiovascular Risk HDL > or equal to 60 mg/dL LOW HDL < 40 mg/dL HIGH Serum or plasma potassium me asurement (moles/volume)on 04-03-2018 Potassium [Moles/Vol] 4.4 mmol/L 3.5-5.1 [facility] Serum or plasma sodium measu rement (moles/volume)on 04-03-2018 Sodium [Moles/Vol] 139 mmol/L 136-146 [facility] Serum or plasma total carbon dioxide measurement (moles/volume)on 04-03-2018 CO2 [Moles/Vol] 28.5 mmol/L 22.0-30.0 [facility] Serum or plasma urea nitroge n measurement (mass/volume)on 04-03-2018 Urea nitrogen [Mass/Vol] 16 mg/dL 9-23 [facility] Triglyceride [Mass/volume] i n Serum or Plasmaon 04-03-2018 Triglyceride [Mass/Vol] 32 mg/dL 35-149 [facility] Comment on above: TRIG ATP III CLASSIF ICATION TRIG less than 150 mg/dL Normal TRIG 150-199 mg/dL Borderline high TRIG 200-500 mg/dL High TRIG greater than 500 mg/dL Very high Standard traceable to the Center for Disease Conrtrol and Prevention (CDC) test method. Vital Signs Date Time Vital Sign Value Performing Clinician Facility 03-09-2023 14:15-0500 Body height 185.42 cm TuckerNuck Other [facility] Other 03-09-2023 14:15-0500 Body mass index (BMI) [Ratio] 33.01 kg/m2 [facility] Other [facility] Other 03-09-2023 14:15-0500 Body weight 113.49 kg [facility]Nuck Other [facility] Other 03-09-2023 14:15-0500 Diastolic blood pressure 60 mm[Hg] Epifanio Ball Other [facility] Other 03-09-2023 14:15-0500 Respiratory rate 12 /min Epifanio Ball Other [facility] Other 03-09-2023 14:15-0500 Systolic blood pressure 97 mm[Hg] Epifanio Ball Other [facility] Other 02-22-2023 08:37-0500 Blood Pressure Location Mayank URBAN [facility] 02-22-2023 08:37-0500 Diastolic blood pressure 80 mm[Hg] Mayank URBAN [facility] 02-22-2023 08:37-0500 Heart rate 74 /min Mayank URBAN [facility] 02-22-2023 08:37-0500 Systolic blood pressure 130 mm[Hg] Mayank URBAN [facility] 02-02-2023 08:45-0500 Body height 185.42 cm Tondra Mapus Other [facility] Other 02-02-2023 08:45-0500 Body mass index (BMI) [Ratio] 32.97 kg/m2 Tondra Mapus Other [facility] Other 02-02-2023 08:45-0500 Body weight 113.35 kg Tondra Mapus Other [facility] Other 02-02-2023 08:45-0500 Diastolic blood pressure 64 mm[Hg] Tondra Mapus Other [facility] Other 02-02-2023 08:45-0500 Respiratory rate 18 /min Tondra Mapus Other [facility] Other 02-02-2023 08:45-0500 SaO2% (BldA) [Mass fraction] 94 % Tondra Mapus Other [facility] Other 02-02-2023 08:45-0500 Systolic blood pressure 104 mm[Hg] Tondra Mapus Other [facility] Other 11-17-2022 11:15-0400 Body height 185.42 cm Epifanio Ball Other [facility] Other 11-17-2022 11:15-0400 Body mass index (BMI) [Ratio] 33.3 kg/m2 Epifanio Ball Other [facility] Other 11-17-2022 11:15-0400 Body weight 114.49 kg Epifanio Ball Other [facility] Other 11-17-2022 11:15-0400 Diastolic blood pressure 61 mm[Hg] Epifanio Ball Other [facility] Other 11-17-2022 11:15-0400 Respiratory rate 12 /min Epifanio Ball Other [facility] Other 11-17-2022 11:15-0400 Systolic blood pressure 112 mm[Hg] Epifanio Ball Other [facility] Other 09-15-2022 10:00-0400 Body height 185.42 cm Epifanio Ball Other [facility] Other 09-15-2022 10:00-0400 Body mass index (BMI) [Ratio] 33.32 kg/m2 Epifanio Ball Other [facility] Other 09-15-2022 10:00-0400 Body weight 114.58 kg Epifanio Ball Other [facility] Other 09-15-2022 10:00-0400 Diastolic blood pressure 65 mm[Hg] Epifanio Ball Other [facility] Other 09-15-2022 10:00-0400 Respiratory rate 12 /min Epifanio Ball Other [facility] Other 09-15-2022 10:00-0400 Systolic blood pressure 100 mm[Hg] Epifanio Ball Other [facility] Other 09-10-2022 14:02-0400 Body height 185.4 cm Debra Bond MD Work Phone: [facility] 09-10-2022 14:02-0400 Body weight 112.4 kg Debra Bond MD Work Phone: [facility] 09-10-2022 14:02-0400 Diastolic blood pressure 55 mm[Hg] Debra Bond MD Work Phone: [facility] 09-10-2022 14:02-0400 Heart rate 58 /min Debra Bond MD Work Phone: [facility] 09-10-2022 14:02-0400 SaO2% (BldA) [Mass fraction] 98 % Debra Bond MD Work Phone: [facility] 09-10-2022 14:02-0400 Systolic blood pressure 116 mm[Hg] Debra Bond MD Work Phone: [facility] 07-13-2022 15:00-0400 Body height 185.42 cm Suzi Saxena Other [facility] Other 07-13-2022 15:00-0400 Body mass index (BMI) [Ratio] 32.58 kg/m2 Tondra Mapus Other [facility] Other 07-13-2022 15:00-0400 Body weight 112.04 kg Tondra Mapus Other [facility] Other 07-13-2022 15:00-0400 Diastolic blood pressure 54 mm[Hg] Tondra Mapus Other [facility] Other 07-13-2022 15:00-0400 Respiratory rate 18 /min Tondra Mapus Other [facility] Other 07-13-2022 15:00-0400 SaO2% (BldA) [Mass fraction] 96 % Tondra Mapus Other [facility] Other 07-13-2022 15:00-0400 Systolic blood pressure 113 mm[Hg] Tondra Mapus Other [facility] Other 04-06-2022 09:30-0500 Body height 185.42 cm Tondra Mapus Other [facility] Other 04-06-2022 09:30-0500 Body mass index (BMI) [Ratio] 31.7 kg/m2 Tondra Mapus Other [facility] Other 04-06-2022 09:30-0500 Body weight 109 kg Tondra Mapus Other [facility] Other 04-06-2022 09:30-0500 Diastolic blood pressure 61 mm[Hg] Tondra Mapus Other [facility] Other 04-06-2022 09:30-0500 Respiratory rate 18 /min Tondra Mapus Other [facility] Other 04-06-2022 09:30-0500 SaO2% (BldA) [Mass fraction] 96 % Tondra Mapus Other [facility] Other 04-06-2022 09:30-0500 Systolic blood pressure 94 mm[Hg] Tondra Mapus Other [facility] Other 03-17-2022 12:00-0500 Body height 185.42 cm Epifanio Ball Other [facility] Other 03-17-2022 12:00-0500 Body mass index (BMI) [Ratio] 31.67 kg/m2 Epifanio Ball Other [facility] Other 03-17-2022 12:00-0500 Body weight 108.91 kg Epifanio Ball Other [facility] Other 03-17-2022 12:00-0500 Diastolic blood pressure 70 mm[Hg] Epifanio Ball Other [facility] Other 03-17-2022 12:00-0500 Respiratory rate 16 /min Epifanio Ball Other [facility] Other 03-17-2022 12:00-0500 Systolic blood pressure 112 mm[Hg] Epifanio Ball Other [facility] Other 12-28-2021 11:15-0400 Body height 185.42 cm Tondra Mapus Other [facility] Other 12-28-2021 11:15-0400 Body mass index (BMI) [Ratio] 30.74 kg/m2 Tondra Mapus Other [facility] Other 12-28-2021 11:15-0400 Body weight 105.69 kg Tondra Mapus Other [facility] Other 12-28-2021 11:15-0400 Diastolic blood pressure 41 mm[Hg] Tondra Mapus Other [facility] Other 12-28-2021 11:15-0400 Respiratory rate 16 /min Tondra Mapus Other [facility] Other 12-28-2021 11:15-0400 SaO2% (BldA) [Mass fraction] 98 % Tondra Mapus Other [facility] Other 12-28-2021 11:15-0400 Systolic blood pressure 89 mm[Hg] Tondra Mapus Other [facility] Other 10-16-2021 10:19-0400 Body height 185.4 cm Debra Bond MD Work Phone: [facility] 10-16-2021 10:19-0400 Body weight 107.05 kg Debra Bond MD Work Phone: [facility] 10-16-2021 10:19-0400 Diastolic blood pressure 55 mm[Hg] Debra Bond MD Work Phone: [facility] 10-16-2021 10:19-0400 Heart rate 65 /min Debra Bond MD Work Phone: [facility] 10-16-2021 10:19-0400 SaO2% (BldA) [Mass fraction] 98 % Debra Bond MD Work Phone: [facility] 10-16-2021 10:19-0400 Systolic blood pressure 105 mm[Hg] Debra Bond MD Work Phone: [facility] 05-21-2021 14:00-0500 Body height 185.42 cm Tondra Mapus Other [facility] Other 05-21-2021 14:00-0500 Body mass index (BMI) [Ratio] 32.58 kg/m2 Tondra Mapus Other [facility] Other 05-21-2021 14:00-0500 Body weight 112.04 kg Tondra Mapus Other [facility] Other 05-21-2021 14:00-0500 Diastolic blood pressure 57 mm[Hg] Tondra Mapus Other [facility] Other 05-21-2021 14:00-0500 Respiratory rate 16 /min Tondra Mapus Other [facility] Other 05-21-2021 14:00-0500 SaO2% (BldA) [Mass fraction] 98 % Tondra Mapus Other [facility] Other 05-21-2021 14:00-0500 Systolic blood pressure 96 mm[Hg] Tondra Mapus Other [facility] Other 02-11-2021 11:15-0500 Body height 185.42 cm Tondra Mapus Other [facility] Other 02-11-2021 11:15-0500 Body mass index (BMI) [Ratio] 31 kg/m2 Tondra Mapus Other [facility] Other 02-11-2021 11:15-0500 Body weight 106.6 kg Tondra Mapus Other [facility] Other 02-11-2021 11:15-0500 Diastolic blood pressure 47 mm[Hg] Tondra Mapus Other [facility] Other 02-11-2021 11:15-0500 Respiratory rate 20 /min Tondra Mapus Other [facility] Other 02-11-2021 11:15-0500 SaO2% (BldA) [Mass fraction] 96 % Tondra Mapus Other [facility] Other 02-11-2021 11:15-0500 Systolic blood pressure 92 mm[Hg] Tondra Mapus Other [facility] Other 01-08-2021 11:00-0400 Body height 185.42 cm Tondra Mapus Other [facility] Other 01-08-2021 11:00-0400 Body mass index (BMI) [Ratio] 30.87 kg/m2 Tondra Mapus Other [facility] Other 01-08-2021 11:00-0400 Body weight 106.14 kg Tondra Mapus Other [facility] Other 01-08-2021 11:00-0400 Diastolic blood pressure 62 mm[Hg] Tondra Mapus Other [facility] Other 01-08-2021 11:00-0400 Respiratory rate 20 /min Tondra Mapus Other [facility] Other 01-08-2021 11:00-0400 SaO2% (BldA) [Mass fraction] 97 % Suzi Saxena Other [facility] Other 01-08-2021 11:00-0400 Systolic blood pressure 104 mm[Hg] Suzi Saxena Other [facility] Other Encounters Encounter Date Encounter Type Care Provider Facility Start: 02-29-2024 ambulatory Mayank URBAN Facili ty:[facility] Start: 03-10-2023 End: 03-10-2023 ambulatory Epifanio Montelongo Other [facility] Other Start: 03-10-2023 Telephone encounter Epifanio CALDERÓN [facility] Start: 03-09-2023 End: 03-09-2023 ambulatory Epifanio Montelongo Other [facility] Other Start: 03-09-2023 Office outpatient vi sit 15 minutes Epifanio Montelongo [facility] Start: 03-09-2023 Telephone encounter Epifanio CALDERÓN [facility] Start: 02-28-2023 Refill Debra Bond MD Work Phone: Cardiology Comment on above: Refill Request Start: 02-22-2023 End: 02-23-2023 ambulatory Mayank URBAN Facility:[facility] Start: 02-22-2023 End: 02-22-2023 Patient encounter procedure Mayank URBAN [facility] Start: 02-16-2023 End: 02-16-2023 ambulatory Ema Cline Facility:[facility] Start: 02-02-2023 (DM) Diabetes Tondra [facility] Start: 02-02-2023 End: 02-02-2023 ambulatory Epifanio Montelongo [facility] Other Start: 01-08-2023 Refill Debra Bond MD Work Phone: Cardiology Comment on above: Refill Request Start: 12-09-2022 Office outpatient vi sit 15 minutes Epifanio Montelongo [facility] Start: 12-09-2022 End: 12-09-2022 ambulatory Debra Bond MD Work Phone: [facility] Other Comment on above: Chronic systolic hea rt failure (HCC) (Primary Dx); Ischemic cardiomyopathy; 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; Type 1 diabetes mellitus with diabetic polyneuropathy (HCC); Dyslipidemia; Peripheral vascular disease, unspecified (HCC); Obesity, Class I, BMI 30-34.9 Start: 12-09-2022 End: 12-09-2022 Telemedicine consultation with patient Debra Bond MD Work Phone: [facility] Start: 11-17-2022 End: 11-17-2022 ambulatory Epifanio Montelongo Other [facility] Other Start: 11-17-2022 Office outpatient vi sit 15 minutes Epifanio Montelongo [facility] Start: 11-17-2022 Telephone encounter Epifanio Montelongo [facility] Start: 10-18-2022 Telephone encounter Suzi Saexna [facility] Start: 10-18-2022 End: 10-18-2022 ambulatory DO Epifanio Montelongo Work Phone: [facility] Other Start: 10-18-2022 End: 10-18-2022 Patient encounter procedure DO Epifanio Montelongo Work Phone: [facility] [place] Work Phone: Start: 09-21-2022 Refill Debra Bond MD Work Phone: Cardiology Comment on above: Rx Refills Start: 09-15-2022 End: 09-15-2022 ambulatory Epifanio Montelongo Other [facility] Other Start: 09-15-2022 Office outpatient vi sit 25 minutes Epifanio Montelongo [facility] Start: 09-15-2022 Telephone encounter Epifanio Juan M FP [facility] Start: 09-10-2022 End: 09-11-2022 ambulatory DEBRA BOND Facility:[facility] Start: 09-10-2022 End: 09-10-2022 Patient encounter procedure Debra Bond MD Work Phone: Cardiology Comment on above: Chronic systolic hea rt failure (HCC); Ischemic cardiomyopathy; 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; Type 1 diabetes mellitus with diabetic polyneuropathy (HCC); Dyslipidemia; Peripheral vascular disease, unspecified (HCC) Start: 09-10-2022 End: 09-10-2022 Patient encounter procedure Hvi Discharge Echo [id number] Work Phone: Vascular Medicine Comment on above: Chronic systolic hea rt failure (HCC); Ischemic cardiomyopathy; 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 Start: 08-19-2022 Refill Debra Bond MD Work Phone: Cardiology Comment on above: Refill Request Start: 07-26-2022 End: 07-26-2022 ambulatory Epifanio Montelongo Other [facility] Other Start: 07-26-2022 Nursing evaluation o f patient and report Epifanio Montelongo [facility] Start: 07-26-2022 Telephone encounter Tondra Mapus [facility] Start: 07-13-2022 (DM) Diabetes Tondra Mapus [facility] Start: 07-13-2022 End: 07-13-2022 ambulatory Tondra Mapus Other [facility] Other Start: 04-06-2022 (PUMP/CGM) Pump / Sensor Tondra Mapu s [facility] Start: 04-06-2022 End: 04-06-2022 ambulatory Tondra Mapus Other [facility] Other Start: 03-26-2022 End: 03-27-2022 ambulatory DEBRA BOND Facility:[facility] Start: 03-17-2022 End: 03-17-2022 ambulatory Epifanio Montelongo Other [facility] Other Start: 03-17-2022 Patient encounter procedure Epifanio Montelongo [facility] Start: 02-26-2022 Orders Only Debra Bond MD Work Phone: Cardiology Comment on above: Chronic systolic hea rt failure (HCC) (Primary Dx); Ischemic cardiomyopathy Start: 02-18-2022 End: 02-18-2022 ambulatory Tondra Mapus Other [facility] Other Start: 02-18-2022 Telephone encounter Tondra Mapus [facility] Start: 01-21-2022 End: 01-21-2022 ambulatory Debra Bond MD Work Phone: Cardiology Comment on above: Ischemic cardiomyopa thy (Primary Dx); Chronic systolic heart failure (HCC); 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 Start: 12-28-2021 End: 12-28-2021 ambulatory Tondra Mapus Other [facility] Other Start: 12-28-2021 Telephone encounter Debra Bond MD Work Phone: Cardiology Comment on above: Counseling (/) Start: 12-24-2021 End: 12-24-2021 ambulatory DO Epifanio Juan M Work Phone: [facility] Work Phone: Start: 12-24-2021 End: 12-24-2021 Patient encounter procedure DO Epifanio Montelongo Work Phone: [facility] [place] Start: 11-30-2021 End: 11-30-2021 Patient encounter procedure Xiang KEENAN [facility] Start: 11-04-2021 End: 11-04-2021 Patient encounter procedure DO Epifanio Montelongo Work Phone: [facility] [place] Start: 10-16-2021 End: 10-16-2021 Patient encounter procedure Debra Bond MD Work Phone: Cardiology Comment on above: Chronic systolic hea rt failure (HCC) (Primary Dx); Ischemic cardiomyopathy; 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; Obesity, Class I, BMI 30-34.9; Type 1 diabetes mellitus with diabetic polyneuropathy (HCC); Dyslipidemia Start: 09-23-2021 Refill Debra Bond MD Work Phone: Cardiology Comment on above: Refill Request Start: 09-16-2021 Registered Recurring DO Morales in Juan M Work Phone: [facility] Start: 07-13-2021 End: 07-13-2021 ambulatory Tondra Mapus Other [facility] Other Start: 07-13-2021 Telephone encounter Tondra Mapus [facility] Start: 05-30-2021 ambulatory Debra Bond MD Work Phone: Cardiology Comment on above: Weight gain Start: 05-21-2021 (PUMP/CGM) Pump / Sensor Tondra Mapu s [facility] Start: 05-21-2021 End: 05-21-2021 ambulatory Tondra Mapus Other [facility] Other Start: 04-21-2021 End: 04-21-2021 ambulatory Tondra Mapus Other [facility] Other Start: 04-21-2021 Telephone encounter Tondra Mapus [facility] Start: 04-20-2021 End: 04-20-2021 ambulatory Tondra Mapus Other [facility] Other Start: 04-20-2021 Telephone encounter Tondra Mapus [facility] Start: 04-13-2021 Adult health examination Tondr a Mapus Other [facility] Other Start: 02-11-2021 (PUMP/CGM) Pump / Sensor Tondra Patriciau s [facility] Start: 02-11-2021 End: 02-11-2021 ambulatory Tondra Mapus Other [facility] Other Start: 02-11-2021 Telephone encounter Tondra Mapus [facility] Start: 01-08-2021 Nursing evaluation o f patient and report Tondra Patriciaus [facility] Start: 11-19-2020 End: 11-19-2020 ambulatory Tondra Mapus Other [facility] Other Start: 11-19-2020 Telephone encounter Tondra Mapus [facility] Start: 08-07-[address] EPIFANIO Tanner ty:H1 Procedures Date Procedure Procedure Detail Performing Clinician Start: 09-10-2022 Echo tthrc r-t 2d w/wom-mode compl spec&colr d Debra Bond MD Work Phone: Start: 10-10-2021 Adult depression scr eening assessment Debra Bond MD Work Phone: Start: 07-14-2021 Adult depression scr eening assessment Debra Bond MD Work Phone: Start: 05-14-2021 History of amputatio n of foot Status post amputation of foot Debra Bond MD Work Phone: Start: 05-14-2021 History of amputatio n of lesser toe Status post amputation of lesser toe, right Debra Bond MD Work Phone: Start: 05-10-2021 Adult depression scr eening assessment Debra Bond MD Work Phone: Start: 10-22-2020 History of radiation therapy History of therapeutic radiation Debra Bond MD Work Phone: Start: 07-09-2020 Cystoscopy Xiang Renteria Start: 01-29-2019 Cysto/UD Xiang Renteria Start: 06-18-2015 Implantation of radioactive seed into prostate Xiang KEENAN Start: 12-24-2014 General examination of patient Suzi Saxena Other Start: 04-15-2014 Pre-surgery evaluation Suzi Saxena Other Start: 04-15-2014 Preoperative cardiovascular examination Suzi Saxena Other Start: 10-04-2011 Vasectomy Xiang Renteria Start: 01-18-2011 Transrectal biopsy o f prostate using ultrasound guidance Xiang KEENAN Comment on above: 07/20/13, 03/03/15 Amputation of toe Xiang Renteria Comment on above: 2 Toes on Rt Foot Catheterization of b oth left and right heart Xiang KEENAN End: 02-17-2022 Depression screening Tondra Saxena Other Placement of stent Xiang VALENTIN Placement of stent i n cardiac conduit Team [facility] procedure o n eye proper using laser Xiang KEENAN Plan of Treatment Date Care Activity Detail Author Start: 08-06-2030 Urine microalbumin profile DTaP,Tdap,Td Vaccine (3 - Td or Tdap) [facility] Start: 07-25-2030 Urine microalbumin profile DTAP,TDAP,TD (2 - Td or Tdap) [facility] Start: 03-26-2023 Creatinine measurement Serum Creatin ine [facility] Start: 03-26-2023 SERUM CREATININE SERUM CREATININE Cl [facility] Start: 11-12-2022 Covid-19 Vaccine ( season) Covid-19 Vaccine () [facility] Start: 11-12-2022 Influenza vaccination [facility] Start: 10-16-2022 SERUM CREATININE SERUM CREATININE [facility] Start: 10-10-2022 Adult depression screening assessment DEPRESSION SCREENING [facility] Start: 09-23-2022 PROSTATE CANCER SCREENING DISCUSSION PROSTATE CANCER SCREENING DISCUSSION [facility] Start: 07-14-2022 Adult depression screening assessment DEPRESSION SCREENING [facility] Start: 05-10-2022 Adult depression screening assessment DEPRESSION SCREENING [facility] Start: 04-24-2022 COVID-19 VACCINE (7 - Moderna series) COVID-19 VACCINE (7 - Moderna series) [facility] Start: 03-14-2022 ADVANCE DIRECTIVE DISCUSSION ADVANCE DIRECTIVE DISCUSSION [facility] Start: 03-14-2022 End: 05-14-2022 Comprehensive metabolic 2000 panel - Serum or Plasma COMP METABOLIC PANEL Lab Routine Chronic systolic heart failure (HCC) Ischemic cardiomyopathy Expected: 03/14/2022, Expires: 05/14/2022 [facility] Work Phone: Comment on above: Expected: 03/14/2022 , Expires: 05/14/2022 Start: 03-14-2022 DEPRESSION ASSESSMENT DEPRESSION ASS ESSMENT [facility] Start: 03-14-2022 End: 05-14-2022 Natriuretic peptide.B prohormone N-Terminal [Mass/volume] in Serum or Plasma NT PRO BNP Lab Routine Chronic systolic heart failure (HCC) Ischemic cardiomyopathy Expected: 03/14/2022, Expires: 05/14/2022 [facility] Work Phone: Comment on above: Expected: 03/14/2022 , Expires: 05/14/2022 Start: 11-12-2021 Influenza vaccination INFLUENZA (#1) [facility] Start: 10-16-2021 End: 12-16-2021 Comprehensive metabolic 2000 panel - Serum or Plasma [facility] Work Phone: Comment on above: Expected: 10/16/2021 , Expires: 12/16/2021 Start: 10-16-2021 End: 12-16-2021 Natriuretic peptide.B prohormone N-Terminal [Mass/volume] in Serum or Plasma [facility] Work Phone: Comment on above: Expected: 10/16/2021 , Expires: 12/16/2021 Start: 10-03-2021 HEMOGLOBIN/HEMATOCRIT HEMOGLOBIN/HEM ATOCRIT [facility] Start: 10-03-2021 Hepatitis B surface antibody level LDL CHOLESTEROL [facility] Start: 04-05-2021 Hemoglobin A1c measurement HbA1C [facility] Start: 04-05-2021 Hemoglobin A1c/Hemoglobin.total in Blood HBA1C [facility] Start: 03-14-2021 ADVANCE DIRECTIVE DISCUSSION ADVANCE DIRECTIVE DISCUSSION [facility] Start: 03-14-2021 DEPRESSION ASSESSMENT DEPRESSION ASS ESSMENT [facility] Start: 01-04-2020 SHINGRIX VACCINE (2 of 2) SHINGRIX VACCINE (2 of 2) [facility] Start: 2013 Hepatitis B Vaccine (1 of 3 - Risk 3-dose series) Hepatitis B Vaccine (1 of 3 - Risk 3-dose series) [facility] Start: 2013 RSV Vaccine (1 - 1-d ose 60+ series) RSV Vaccine (1 - 1-dose 60+ series) [facility] Start: 1998 COLOGUARD (FIT-DNA) COLOGUARD (FIT-D NA) [facility] Start: 1998 Colonoscopy COLONOSCOPY [facility] Start: 1998 COLORECTAL CANCER SCREENING COLORECTAL CANCER SCREENING [facility] Start: [address] COLONOGRAPHY [facility] Start: 1998 FECAL OCCULT BLOOD FECAL OCCULT BLOO D [facility] Start: 1998 Screening for malign ant neoplasm of colon [facility] Start: 1998 SIGMOIDOSCOPY SIGMOIDOSCOPY [facility] Start: 07-25-1971 ANNUAL PCP TEAM 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 ANTONETTE DISEASE VISIT ANNUAL PCP TEAM CHRONIC DISEASE VISIT [facility] Start: 07-25-1971 HEPATITIS C SCREENING HEPATITIS C SC FERNY [facility] Start: 07-25-1971 Hepatitis C screening Hepatitis C Sc yingning [facility] Start: 07-25-1963 3 comp foot exam completed DIABETIC FOOT EXAM [facility] Start: 07-25-1963 Diabetic foot examination Diabetic Foot Exam [facility] Start: 07-25-1963 Glaucoma screening Dilated Retinal E xam [facility] Start: 07-25-1963 Hepatitis B screening URINE AL BUMIN:CREATININE RATIO [facility] Start: 07-25-1963 Hepatitis C antibody , confirmatory test DILATED RETINAL EXAM [facility] Start: 1955 ABDOMINAL AORTIC ANEURYSM SCREENING ABDOMINAL AORTIC ANEURYSM SCREENING [facility] Start: 1955 Abdominal aortic aneurysm screening Abdominal Aortic Aneurysm [facility] Immunizations Immunization Date Immunization Notes Care Provider Fa john 11-01-2022 influenza (HD-IIV4) vaccine, age 65+ yr, high dose, quadrivalent, PF (FLUZONE HIGH-DOSE) Debra Bond MD Work Phone: [facility] Work Phone: 11-01-2022 zoster vaccine recombinant Debra Bond MD Work Phone: [facility] Work Phone: 12-22-2021 COVID-19 original vaccine, age 12+ yr, monovalent (for; to (do)-[employer] - PURPLE TOP) Debra Bond MD Work Phone: [facility] Work Phone: 04-14-2021 COVID-19 Vaccine Moderna - Documentation Purposes Only Alfaatul Gomez Other [employer] Other 02-03-2021 SARS-CoV-2 (COVID-19 ) [id number] vaccine Xiang KEENAN [facility] 12-01-2020 influenza nasal, unspecified formulation Debra Bond MD Work Phone: [facility] Work Phone: 12-01-2020 influenza virus vaccine, unspecified formulation Xiang KEENAN [facility] 12-01-2020 influenza, high-dose , quadrivalent vaccine (FLUZONE HIGH DOSE QUADRIVALENT) Debra Bond MD Work Phone: [facility] Work Phone: 08-06-2020 diphtheria, tetanus toxoids and acellular pertussis vaccine, unspecified formulation Tondra Mapus Other [facility] [employer] Other 07-25-2020 tetanus toxoid, redu kimberly diphtheria toxoid, and acellular pertussis vaccine, adsorbed Debra Bond MD Work Phone: [facility] Work Phone: 06-20-2020 COVID-19 vaccine, fu ll dose (MODERNA) Debra Bond MD Work Phone: [facility] Work Phone: 05-30-2020 COVID-19 vaccine, fu ll dose (MODERNA) Debra Bond MD Work Phone: [facility] Work Phone: 05-23-2020 COVID-19 Vaccine Moderna - Documentation Purposes Only Tondra Mapus Other [facility] Work Phone: 05-10-2020 SARS-CoV-2 (COVID-19 ) [id number] vaccine Xiang KEENAN [facility] 04-25-2020 COVID-19 Vaccine Moderna - Documentation Purposes Only Tondra Mapus Other [facility] Work Phone: 12-13-2019 influenza virus vaccine, unspecified formulation Xiang KEENAN [facility] 11-13-2019 influenza nasal, unspecified formulation Debra Bond MD Work Phone: [facility] Work Phone: 11-13-2019 influenza virus vaccine, unspecified formulation Xiang [employer] [facility] 11-13-2019 influenza, high dose seasonal, preservative-free Debra Bond MD Work Phone: [facility] Work Phone: 11-13-2019 pneumococcal conjuga te vaccine, 13 valent Debra Bond MD Work Phone: [facility] Work Phone: 11-09-2019 zoster vaccine recombinant Debra Bond MD Work Phone: [facility] Work Phone: 12-12-2018 influenza virus vaccine, live, attenuated, for intranasal use [facility] 11-01-2018 influenza virus vaccine, split virus (incl. purified surface antigen) Suzi Gomezus Other [facility] [employer] Other 11-01-2018 pneumococcal polysaccharide vaccine, 23 valent Debra Bond MD Work Phone: [facility] Work Phone: 11-19-2017 influenza nasal, unspecified formulation Debra Bond MD Work Phone: [facility] Work Phone: 11-19-2017 influenza virus vaccine, unspecified formulation Xiang [employer] [facility] 11-19-2017 influenza, injectabl e, quadrivalent, preservative free Debra Bond MD Work Phone: [facility] Work Phone: 04-27-2016 pneumococcal conjuga te vaccine, 13 valent Debra Bond MD Work Phone: [facility] Work Phone: 04-27-2016 pneumococcal Conjuga te, unspecified formulation; Translations: [Need for prophylactic vaccination against Streptococcus pneumoniae (pneumococcus)] Suzi Saxena Other [employer] Other 01-27-2016 influenza, injectabl e, quadrivalent, preservative free Debra Bond MD Work Phone: [facility] 12-24-2014 influenza virus vaccine, split virus (incl. purified surface antigen) Suzi Saxena Other [employer] Other 04-26-2013 pneumococcal polysaccharide vaccine, 23 valent Tondra Saxena Other [employer] Other 11-22-2012 tetanus and diphther ia toxoids, adsorbed, preservative free, for adult use (5 Lf of tetanus toxoid and 2 Lf of diphtheria toxoid) Suzi Saxena Other [employer] Other Payers Date Payer Category Payer Unknown MMO MMO MEDICARE SUPPLEMENT [id number] 2020-Present [phone] [address] [place] [address] Indemnity [id number] 2020 Unknown MMO MMO MEDICARE SUPPLEMENT [id number] 2020-Present [phone] [address] [place] [address] Indemnity [id number] 2018 Medicare MEDICARE MEDICAR E A AND B [id number] 2018-Present [phone] [address] [address] [place] [address] Medicare [id number] 2018 Medicare MEDICARE MEDICAR E A AND B [id number] 2018-Present [phone] [place] [address] Medicare [id number] 2017 Medicare [id number] 2017 Unknown [id number] 1959 Self-pay 1955 Unknown [id number] 1955 Unknown [id number] 1955 Unknown [id number] Private Health Insurance [facility] [id number] Private Health Insurance [facility] [id number] Unknown [id number] Unknown [id number] Unknown [id number] Social History Date Type Detail Facility Start: 10-03-2020 Tobacco smoking status NHIS Occasional tobacco smoker [facility] History of tobacco use Cigar Smoker [facility] Start: 10-03-2020 End: 01-10-2023 Alcohol intake Current drinker of alcohol (finding) [facility] Start: 10-03-2020 History SDOH Alcohol Comment rare glass of scotch [facility] Start: 10-03-2020 Tobacco Comment very rare cigar (one so far in 2020) [facility] Start: 1955 Sex Assigned At Male [facility] Start: 04-14-2021 End: 10-16-2021 Exposure to SARS-CoV-2 (event) Not sure [facility] Start: 10-03-2020 End: 09-10-2022 Sex Assigned At [employer] Other Start: 03-08-2021 Tobacco smoking status NHIS Never smoked tobacco (finding) [facility] Start: 11-24-2020 End: 02-22-2023 Tobacco smoking status Smoker (finding) [facility] Tobacco smoking status Never [facility] Start: 10-03-2020 Tobacco use and exposure Smokeless tobacco non-user [facility] Start: 10-03-2020 End: 09-10-2022 History of Social function [facility] Start: 09-27-2020 Gender identity Identifies as male gender (finding) [facility] Start: 09-27-2020 Sexual orientation Heterosexual (finding) [facility] Medical Equipment Procedure Code Equipment Code Equipment Original Text Equipment Identifier Dates Thoracotomy [id number] FDA Start: 04-15-2020 Thoracotomy [id number] FDA Start: 04-15-2020 Thoracotomy [id number] FDA Start: 04-15-2020 AMNIOFILL 250MG FDA Start: 05-04-2019 [id number] FDA Start: 08-09-2019 Drug-eluting cor onary artery stent, [id number] FDA Start: 08-09-2019 AMNIOFILL 250MG FDA Start: 05-04-2019 [id number] FDA Start: 08-09-2019 AMNIOFILL 250MG FDA Start: 05-04-2019 [id number] FDA Start: 08-09-2019 Functional Status Date Assessment Result Facility 02-22-2023 Functional Status N/A [facility] 11-30-2021 Functional Status N/A [facility] Clinical Notes 07-13-2019 to 03-10-2023 Note Date & Type Note Facility 03-10-2023 Evaluation note Encounter Date Diagnosis Assessment Notes Feb, Lung density on x-ray (ICD-10 - J98.4) Feb, Chronic HFrEF (heart failure with reduced ejection fraction) (ICD-10 - I50.22) Feb, Ischemic cardiomyopathy (ICD-10 - I25.5) [employer] Other 12-27-2023 Evaluation note* Encounter Date Diagnosis Assessment Notes Treatment Notes Treatment Clinical Notes Feb, Persistent cough (ICD-10 - R05.3) Treat any triggering symptoms: - post nasal drip w/ Flonase - GERD w/ PPI and diet restrictions - infections CXR to r/o CHF, tumor, pneumonia Feb, Paresthesias (ICD-10 - R20.2) Likely due to B/L foraminal stenosis, worsened w/ supine positioning. Refer for EMG/NCS Hold on XR/MRI cervical spine, since asymptomatic Feb, Cervical spondylosis with radiculopathy (ICD-10 - M47.22) ROM exercises, ice/heat and Lidocaine. XR, MRI if EMG suggest foraminal impingement Feb, Atherosclerotic hear t disease of [place] coronary artery without angina pectoris (ICD-10 - I25.10) This patient is stable without activity related CP, dyspnea or lightheadedness. They are instructed to continue exercise and AHA diet plan. Continue secondary prevention measures. Feb, Chronic HFrEF (heart failure with reduced ejection fraction) (ICD-10 - I50.22) Instructed on low salt diet, exercise and daily weights. Instructed to notify office for any unexpected weight gain > 3lbs and/or increased dyspnea, difficulty breathing during sleep, worsening lower extremity swelling, chest pain or lightheadedness. Reviewed GDMT w/ beta blockers, ANA LUISA/ARB/ARNI, MRA and SGLT-2 [employer] Other 12-27-2023 Evaluation note* Encounter Date Diagnosis Assessment Notes Treatment Notes Treatment Clinical Notes Feb, Lung density on x-ray (ICD-10 - J98.4) [employer] Other 12-12-2023 Hospital Discharge instructions Patient Education 02/22/2023 09:37:12 Benign Prostatic Hyperplasia Benign Prostatic Hyperplasia Benign prostatic hyperplasia (BPH) is an enlarged prostate gland that is caused by the normal agingprocess. The prostate may get bigger as a man gets older. The condition is not caused by cancer. The prostate is a walnut-sized gland that is involved in the production of semen. It is located in front of the rectum and below the bladder. The bladder stores urine. The urethra carries stored urine ou t of the body. An enlarged prostate can press on the urethra. This can make it harder to pass urine. The buildup of urine in the bladder can cause infection. Back pressure and infection may progress to bladder damage and kidney (renal) failure. What are the causes? This condition is part of the normal aging process. However, not all men develop problems from thiscondition. If the prostate enlarges away from the urethra, urine flow will not be blocked. If it enlarges toward the urethra and compresses it, there will be problems passing urine. What increases the risk? This condition is more likely to develop in men older than 50 years. What are the signs or symptoms? Symptoms of this condition include: Getting up often during the night to urinate. Needing to urinate frequently during the day. Difficulty starting urine flow. Decrease in size and strength of your urine stream. Leaking (dribbling) after urinating. Inability to pass urine. This needs immediate treatment. Inability to completely empty your bladder. Pain when you pass urine. This is more common if there is also an infection. Urinary tract infection (UTI). How is this diagnosed? This condition is diagnosed based on your medical history, a physical exam, and your symptoms. Tests will also be done, such as: A post-void bladder scan. This measures any amount of urine that may remain in your bladder after you finish urinating. A digital rectal exam. In a rectal exam, your health care provider checks your prostate by putting a lubricated, gloved finger into your rectum to feel the back of your prostate gland. This exam detects the size of your gland and any abnormal lumps or growths. An exam of your urine (urinalysis). A prostate specific antigen (PSA) screening. This is a blood test used to screen for prostate cancer. An ultrasound. This test uses sound waves to electronically produce a picture of your prostate gland. Your health care provider may refer you to a specialist in kidney and prostate diseases (urologist). How is this treated? Once symptoms begin, your health care provider will monitor your condition (active surveillance or watchful waiting). Treatment for this condition will depend on the severity of your condition. Treatment may include: Observation and yearly exams. This may be the only treatment needed if your condition and symptoms are mild. Medicines to relieve your symptoms, including: ?Medicines to shrink the prostate. ?Medicines to relax the muscle of the prostate. Surgery in severe cases. Surgery may include: ?Prostatectomy. In this procedure, the prostate tissue is removed completely through an open incision or with a laparoscope or robotics. ?Transurethral resection of the prostate (TURP). In this procedure, a tool is inserted through the opening at the tip of the penis (urethra). It is used to cut away tissue of the inner core of the prostate. The pieces are removed through the same opening of the penis. This removes the blockage. ?Transurethral incision (TUIP). In this procedure, small cuts are made in the prostate. This lessens the prostate's pressure on the urethra. ?Transurethral microwave thermotherapy (TUMT). This procedure uses microwaves to create heat. The heat destroys and removes a small amount of prostate tissue. ?Transurethral needle ablation (TUNA). This procedure uses radio frequencies to destroy and remove a small amount of prostate tissue. ?Interstitial laser coagulation (ILC). This procedure uses a laser to destroy and remove a small amount of prostate tissue. ?Transurethral electrovaporization (TUVP). This procedure uses electrodes to destroy and remove a small amount of prostate tissue. ?Prostatic urethral lift. This procedure inserts an implant to push the lobes of the prostate away from the urethra. Follow these instructions at home: Take cixd-guq-ezayfzf and prescription medicines only as told by your health care provider. Monitor your symptoms for any changes. Contact your health care provider with any changes. Avoid drinking large amounts of liquid before going to bed or out in public. Avoid or reduce how much caffeine or alcohol you drink. Give yourself time when you urinate. Keep all follow-up visits. This is important. Contact a health care provider if: You have unexplained back pain. Your symptoms do not get better with treatment. You develop side effects from the medicine you are taking. Your urine becomes very dark or has a bad smell. Your lower abdomen becomes distended and you have trouble passing urine. Get help right away if: You have a fever or chills. You suddenly cannot urinate. You feel light-headed or very dizzy, or you faint. There are large amounts of blood or clots in your urine. Your urinary problems become hard to manage. You develop moderate to severe low back or flank pain. The flank is the side of your body between the ribs and the hip. These symptoms may be an emergency. Get help right away. Call 911. Do not wait to see if the symptoms will go away. Do not drive yourself to the hospital. Summary Benign prostatic hyperplasia (BPH) is an enlarged prostate that is caused by the normal aging process. It is not caused by cancer. An enlarged prostate can press on the urethra. This can make it hard to pass urine. This condition is more likely to develop in men older than 50 years. Get help right away if you suddenly cannot urinate. This information is not intended to replace advice given to you by your health care provider. Make sure you discuss any questions you have with your health care provider. Document Revised: 09/16/2021 Document Reviewed: 09/16/2021 [employer] Patient Education 2022 [employer]. Follow Up Care 11/30/2021 09:41:49 With:HITESH LAKHANI, Mayank Quijano, URL Address: [facility] [address], [place] [address]- When:Within 1 Year(s) Comments:w/PSA [facility] 11-22-2023 Evaluation note* Encounter Date Diagnosis Assessment Notes Treatment Notes Treatment Clinical Notes Jan, Type 1 diabetes mellitus with diabetic neuropathy (ICD-10 - E10.40) About diabetes type 1 material was published 1. Controlled, Type 1 diabetes with A1c of 6.8% 2. Blood glucose levels according to pump/cgm download 01/19/2023-02/02/20 23 avgerage SG 143. >180-13%, 70-180-86%, <70-2%. Reviewed download with pt, incidence of hypoglcyemia after increased physical activity. Reviewed with pt if increased physical activity to turn on exercise feature 1-2 hrs before activity to reduce risk of hypoglycemia. TBI increased- changed pump settings- see below. 3. Patient is alert, oriented and receptive to making changes or counseling Notes: Seen for an assessment of current glucose pattern, changes in treatment plan, with this time spent in counseling and coordination of care related to diabetes, risks, and benefits of treatment, medications, and side effects. TOPICS REVIEWED: 1. Time was spent reviewing: a. Basic concepts of diabetes, progressive beta cell , concepts of basal/bolus/correc tive insulin requirements. Basal: The goal is fasting blood glucose of 90-130mg. If fasting blood glucose starts to run under 100mg 3x's/ week, decrease dose by 10%. Bolus: The goal is to hold the blood glucose level steady meal to meal. If pt. is going to have increased physical activity after a meal, decrease the schedule meal dose prior to the activity by 30-50%. If pt. skips a meal do not take this dose. Correction: The goal is to correct an elevated glucose back into the 100-150mg range b. Nutrition: Concepts of healthy diet reviewed, encouraged to decrease saturated fat in diet and increase non-starchy vegetables and fruits in diet. BMI: Pt. needs to select one small change to decrease caloric intake or increase physical activity to help decrease weight. c. Correct treatment of hypoglycemia, carry a glucose source at all times on your person, in vehicles, and at bedside. Can use glucose tablets/4, four ounces of pop or juice equal to 15 G of carbohydrate. Blood glucose should be 100 mg/dl or higher when driving. d. ADA glucose goals for age and medical complexity reviewed e. Patient questions addressed 2. Activity/exercise: Encouraged to start any form of physical activity. Start low level and increase slowly to a minimal goal of 150 minutes/week. Limit activity to what is allowed by other issues such as cardiac, pulmonary or orthopedic restrictions. 3. Standards of care: Reminded to have an annual dilated eye exam, A1C every 3 months, urine testing for microalbumin once/year, check feet daily and report any cuts or sores that do not appear to be healing. 4. Meter: Plan to check blood glucose: Please check blood glucose levels 10 times/day. Back to back meals reveal effectiveness of bolus dosing. 5. [facility] Contact office if any issues or concerns with patterns of hypoglycemia, hyperglycemia, or diabetes medication issues. 6. Prescriptions: [facility]: Gabapentin sent 02/02/23 7. Prescriptions will not be filled unless you are compliant with follow up appointments or have a follow up appointment scheduled as ordered by your provider. Refills should be requested at the time of your visit. Jan, Insulin long-term use (ICD-10 - Z79.4) Jan, Dietary counseling and surveillance (ICD-10 - Z71.3) Eat well, exercise well, be well: dietary and fitness guidelines material was published Jan, HTN (hypertension) (ICD-10 - I10) High blood pressure material was published on arb Jan, Hyperlipidemia LDL goal <100 (ICD-10 - E78.5) Managing your cholesterol material was published 11/03 LDL 60, on statin. Jan, Hypoglycemia due to type 1 diabetes mellitus (ICD-10 - E10.649) Diabetes and exercise material was published, Low blood glucose and diabetes material was published see above Jan, CKD (chronic kidney disease) (ICD-10 - N18.9) Living with chronic kidney disease material was published Jan, BMI 32.0-32.9,adult (ICD-10 - Z68.32) Healthy eating material was published 3 pound weight loss from last visit, continue with weight loss efforts Jan, Insulin pump titration (ICD-10 - Z46.81) Diabetes and exercise material was published Tandem control insulin pump with dexcom g6 CGM:Basal MN 0.66 changed to 0.73 units/hr (TBI 17.52 units/day)ICR MN 1:7, 530 am 1:6, 11am 1:7ISF MnN1:38Active insulin time 5 hoursTarget: MN 110 Updated weight/tdi in control DrAvailable Other 09-28-2023 Evaluation note* Encounter Date Diagnosis Assessment Notes Treatment Notes Treatment Clinical Notes Nov, Acute bronchitis due to other specified organisms (ICD-10 - J20.8) Instructed to use Robitussin or Mucinex for cough, saline or Flonase NS for congestion, Tylenol for pain and fever. Nov, Ischemic cardiomyopathy (ICD-10 - I25.5) He has no s/s CHF. Weight stable w/o increased edema. Nov, Other . viavoo Other 09-28-2023 NoteHNO ID: [id number] Author: Debra Bond MD Service: ? Author Type: Physician Type: Progress Notes Filed: 01/10/2023 10:23 PM Note Text: Heart, Vascular AND Thoracic [place] Department of Cardiovascular Medicine VIRTUAL VIDEO VISIT ESTABLISHED OUTPATIENT VISIT SERVICE DATE: 12/09/22 Patient: Ellis Braxton SERVICE TIME: 0800 : 1955 This is a virtual video visit. It required patient-provider interaction for the medical decision making as documented below. Ellis Braxton has consented to this video encounter. I have communicated my name and active licensure. The patient's identity and physical location were verified at the time of this visit. Either the patient or their legal customer sales representative has been informed of the risks and benefits of -- and alternatives to -- treatment through a remote evaluation and consents to proceed with the evaluation remotely. Ellis Braxton is a 67 year old man seen for follow-up. CHIEF COMPLAINT Follow-up HISTORY OF PRESENT ILLNESS Ellis Braxton is a 67 year old man 1. T1DM, diagnosed on 06/16/65, on insulin; A1c 6.2% per patient 2. CAD s/p STEMI and PCI 15 years ago 2005, [place] ([place]), July 2019 (chest pain two stents), no stent cards, performed by Dr. Benítez at [facility]. Stents were all to the LAD 3. Chronic systolic HFrEF 35%, ACC/AHA Stage C, NYHA II now 4. Dyslipidemia 5. CKD II Estimated Creatinine Clearance: 60.9 mL/min (A) (based on SCr of 1.49 mg/dL (H)). 6. Retinopathy s/p laser treatment 7. Neuropathy for last 25 years, can feel sensation above ankles. He lost two toes on the R foot 5 years ago. He has history of a R diabetic foot ulcer as well 8. Pleural effusion s/p pleurx before removed; previous biopsies of lung and pleura are negative for malignancy Overall doing well without complaints. Biking, no dyspnea, no chest pain. 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 Type 1 diabetes (HCC) 06[birth year]16[birth year]1965 PAST SURGICAL HISTORY Procedure Laterality Date AMPUTATION METATARSAL+TOE,SINGLE Right 2 toes right foot CC PCI CORONARY INTERVENT 2004 x1, 2016 x 2, July 2019 x 2 LUNG SURGERY HX Left 05/2020 Recurrent pleural effusion FAMILY HISTORY Problem Relation Age of Onset Heart Failure Mother Alzheimer's Disease Mother at age 81 Prostate Cancer Father at age 77 No Known Problems Sister Prostate Cancer Brother No Known Problems Brother No Known Problems Brother No Known Problems Son No Known Problems Son No Known Problems Daughter Social History Tobacco Use Smoking status: Some Days Types: Cigars Smokeless tobacco: Never Tobacco comments: very rare cigar (one so far in 2020) Vaping Use Vaping Use: Never used Substance Use Topics Alcohol use: Yes Comment: rare glass of scotch Drug use: Never ALLERGIES Allergen Reactions Iodine Other: See Comments Iv Dye [Iodinated C* Hives Pentazocine Anaphylaxis Other reaction(s): FLU-LIKE SYMPTOMS Other reaction(s): FLU-LIKE SYMPTOMS Other reaction(s): FLU-LIKE SYMPTOMS Talwin Compound Other: See Comments CURRENT MEDICATIONS sacubitril-valsartan (ENTRESTO) 24-26 mg tablet Take 0.5 tablets by mouth twice daily. torsemide (DEMADEX) 20 mg tablet Take 2 tablets by mouth once daily. metoprolol succinate ER (TOPROL XL) 25 mg 24 hr tablet TAKE 1/2 TABLET BY MOUTH ONCE DAILY spironolactone (ALDACTONE) 25 mg tablet TAKE 1 TABLET BY MOUTH EVERY DAY atorvastatin (LIPITOR) 80 mg tablet Take 1 tablet by mouth daily at bedtime. alfuzosin SR (UROXATRAL) 10 mg 24 hr tablet Take 10 mg by mouth once daily. aspirin, enteric coated (ASPIRIN, ENTERIC COATED) 81 mg EC tablet Take 81 mg by mouth once daily. gabapentin (NEURONTIN) 600 mg tablet Take 600 mg by mouth three times daily. HUMALOG 100 unit/mL injection 10-03-2020: insulin pump REVIEW OF SYSTEMS: Answers submitted by the patient for this visit: Review of Systems Heart Failure (Submitted on 12/02/2022) Fever : No Night Sweats: No Recent Unintentional Weight Change: No Vision Disturbance: No Hearing Loss: No A Cough: Yes Difficulty Breathing?: No Chest Pain: No Leg Swelling: No Skipping or irregular heartbeats?: No Feel like passing out?: No Black Tarry Stools: No Nausea: No Diarrhea: No Swelling in your abdomen?: No Fill up quickly when you eat?: No Difficulty Urinating?: No Joint Pain or Stiffness: No Muscle Aches: No A Rash: No Dizziness: No Headaches: No PHYSICAL EXAMINATION: VIDEO EXAM: (if completed, performed via video enabled technology) GENERAL: alert and appropriate, in no distress, well-hydrated, well nourishe (more content not included)...[facility]09-28-2023 History of Present illness Narrative* Debra Bond MD - 12/09/2022 8:00 AM EDT Heart, Vascular & Thoracic [place] Department of Cardiovascular Medicine VIRTUAL VIDEO VISIT ESTABLISHED OUTPATIENT VISIT SERVICE DATE: 12/09/22 Patient: Ellis Braxton SERVICE TIME: 0800 : 1955 This is a virtual video visit. It required patient-provider interaction for the medical decision making as documented below. Ellis Braxton has consented to this video encounter. I have communicated my name and active licensure. The patient's identity and physical location wereverified at the time of this visit. Either the patient or their legal customer sales representative has been informed of the risks and benefits of -- and alternatives to -- treatment through a remote evaluation andconsents to proceed with the evaluation remotely. Ellis Braxton is a 67 year old man seen for follow-up. CHIEF COMPLAINT Follow-up HISTORY OF PRESENT ILLNESS Ellis Braxton is a 67 year old man 1. T1DM, diagnosed on 06/16/65, on insulin; A1c 6.2% per patient 2. CAD s/p STEMI and PCI 15 years ago 2005, [place] ([place]), July 2019 (chest pain two stents), no stent cards, performed by Dr. Benítez at [facility]. Stents were all to the LAD 3. Chronic systolic HFrEF 35%, ACC/AHA Stage C, NYHA II now 4. Dyslipidemia 5. CKD II Estimated Creatinine Clearance: 60.9 mL/min (A) (based on SCr of 1.49 mg/dL (H)). 6. Retinopathy s/p laser treatment 7. Neuropathy for last 25 years, can feel sensation above ankles. He lost two toes on the R foot 5 years ago. He has history of a R diabetic foot ulcer as well 8. Pleural effusion s/p pleurx before removed; previous biopsies of lung and pleura are negative for malignancy Overall doing well without complaints. Biking, no dyspnea, no chest pain. PAST MEDICAL HISTORY Diagnosis Date Amputated toe (HCC) right Broken fingers multiple CAD (coronary artery disease) Diabetes mellitus (HCC) insulin pump Fracture, skull (HCC) Heart attack (HCC) 2017 High cholesterol Hypertension Prostate cancer (HCC) Seeds and XRT Stroke ([facility]) behind my eyes no residual Type 1 diabetes ([facility]) 06/16/1967 PAST SURGICAL HISTORY Procedure Laterality Date AMPUTATION METATARSAL+TOE,SINGLE Right 2 toes right foot CC PCI CORONARY INTERVENT 2004 x1, 2016 x 2, July 2019 x 2 LUNG SURGERY HX Left 05/2020 Recurrent pleural effusion FAMILY HISTORY Problem Relation Age of Onset Heart Failure Mother Alzheimer's Disease Mother at age 81 Prostate Cancer Father at age 77 No Known Problems Sister Prostate Cancer Brother No Known Problems Brother No Known Problems Brother No Known Problems Son No Known Problems Son No Known Problems Daughter Social History Tobacco Use Smoking status: Some Days Types: Cigars Smokeless tobacco: Never Tobacco comments: very rare cigar (one so far in 2020) Vaping Use Vaping Use: Never used Substance Use Topics Alcohol use: Yes Comment: rare glass of scotch Drug use: Never ALLERGIES Allergen Reactions Iodine Other: See Comments Iv Dye [Iodinated C* Hives Pentazocine Anaphylaxis Other reaction(s): FLU-LIKE SYMPTOMS Other reaction(s): FLU-LIKE SYMPTOMS Other reaction(s): FLU-LIKE SYMPTOMS Talwin Compound Other: See Comments CURRENT MEDICATIONS sacubitril-valsartan (ENTRESTO) 24-26 mg tablet Take 0.5 tablets by mouth twice daily. torsemide (DEMADEX) 20 mg tablet Take 2 tablets by mouth once daily. metoprolol succinate ER (TOPROL XL) 25 mg 24 hr tablet TAKE 1/2 TABLET BY MOUTH ONCE DAILY spironolactone (ALDACTONE) 25 mg tablet TAKE 1 TABLET BY MOUTH EVERY DAY atorvastatin (LIPITOR) 80 mg tablet Take 1 tablet by mouth daily at bedtime. alfuzosin SR (UROXATRAL) 10 mg 24 hr tablet Take 10 mg by mouth once daily. aspirin, enteric coated (ASPIRIN, ENTERIC COATED) 81 mg EC tablet Take 81 mg by mouth once daily. gabapentin (NEURONTIN) 600 mg tablet Take 600 mg by mouth three times daily. HUMALOG 100 unit/mL injection 10-03-2020: insulin pump REVIEW OF SYSTEMS: Answers submitted by the patient for this visit: Review of Systems Heart Failure (Submitted on 12/02/2022) Fever : No Night Sweats: No Recent Unintentional Weight Change: No Vision Disturbance: No Hearing Loss: No A Cough: Yes Difficulty Breathing?: No Chest Pain: No Leg Swelling: No Skipping or irregular heartbeats?: No Feel like passing out?: No Black Tarry Stools: No Nausea: No Diarrhea: No Swelling in your abdomen?: No Fill up quickly when you eat?: No Difficulty Urinating?: No Joint Pain or Stiffness: No Muscle Aches: No A Rash: No Dizziness: No Headaches: No PHYSICAL EXAMINATION: VIDEO EXAM: (if completed, performed via video enabled technology) GENERAL: alert and appropriate, in no distress, well-hydrated, well nourished, and happy, smiling, interactive SKIN: no rash noted HEAD: normocephalic, no abnormality or lesion noted EYES: no injection and visual acuity is grossly normal EARS: hearing grossly normal NOSE: external nose normal without rhinorrhea OROPHARYNX: moist mucus membranes PATIENT ENTERED QUESTIONNAIRE SCORES PHQ-9 12/02/2022 09/03/2022 06/24/2022 Score 0 0 0 PROMIS Global Health - (T-Scores - the mean of general population = 50. Five points is a clinicallymeaningful difference.) 12/02/2022 06/24/2022 03/19/2022 Physical T-Score 54.1 50.8 54.1 Mental T-Score 67.6 - 62.5 ASSESSMENT: 1. T1DM, diagnosed on 06/16/65, on insulin; A1c 6.2% per patient 2. CAD s/p STEMI and PCI 15 years ago 2005, [place]), July 2019 (chest pain two stents), no stent cards, performed by Dr. Benítez at [facility]. Stents were all to the LAD 3. Chronic systolic HFrEF 35%, ACC/AHA Stage C, NYHA II now 4. Dyslipidemia 5. CKD II Estimated Creatinine Clearance: 60.9 mL/min (A) (based on SCr of 1.49 mg/dL (H)). 6. Retinopathy s/p laser treatment 7. Neuropathy for last 25 years, can feel sensation above ankles. He lost two toes on the R foot 5 years ago. He has history of a R diabetic foot ulcer as well 8. Pleural effusion s/p pleurx before removed; previous biopsies of lung and pleura are negative for malignancy PLAN (Active Outpatient Problems): Chronic systolic HFrEF: maintain ARNI 1/2 tab of 24/26 mg BID, metop XL 12.5 mg daily, torsemide 40mg daily, kaya 25 mg daily. Not on SGLT2i due to T1DM 3 month VV I personally spent 25 minutes in total time involved in the management and care of this patient. Debra Bond MD documented in this encounterOhio[facility] Evaluation note* Encounter Date Diagnosis Assessment Notes Treatment Notes Treatment Clinical Notes Nov, Bug bite, initial encounter (ICD-10 - W57.XXXA) Cool compresses and antihistamines. Avoid systemic steroids due to DM Nov, Type 1 diabetes mellitus with hyperglycemia (ICD-10 - E10.65) BS controlled DM influences treatment of cutaneous rash, avoid steroids viavoo Other 07-05-2023 Evaluation note* Encounter Date Diagnosis Assessment Notes Treatment Notes Treatment Clinical Notes Sep, Ischemic cardiomyopathy (ICD-10 - I25.5) This patient is stable without activity related CP, dyspnea or lightheadedness. They are instructed to continue exercise and AHA diet plan. Sep, Chronic HFrEF (heart failure with reduced ejection fraction) (ICD-10 - I50.22) Instructed on low salt diet, exercise and daily weights. Instructed to notify office for any unexpected weight gain > 3lbs and/or increased dyspnea, difficulty breathing during sleep, worsening lower extremity swelling, chest pain or lightheadedness. Reviewed GDMT w/ beta blockers, ANA LUISA/ARB/ARNI, MRA and SGLT-2 Sep, HTN (hypertension) (ICD-10 - I10) This patient is instructed to consume a healthy, low-fat, low-salt diet. They are also encouraged to continue exercise to achieve/maintain a normal BMI. Sep, PAD (peripheral artery disease) (ICD-10 - I73.9) Inspect feet daily for cuts. Fall precautions. Walk daily until pain develops Continue ASA, Statin therapy Sep, Type 1 diabetes mellitus with complication (ICD-10 - E10.8) This patient is following a comprehensive diabetic treatment plan. They are checking their feet daily for calluses and nonhealing ulcers. They are being seen for yearly dilated eye examinations. Goals: SBP less than 130, LDL less than 100, FBS less than 140, AC and A1C less than 7%. They are checking their BS daily, will which are reviewed at the office visit. Continue regular routine monitoring of A1C,] Microalbumin, Dilated eye exam and Foot exam Sep, Type 1 diabetes mellitus with diabetic neuropathy (ICD-10 - E10.40) Inspect feet daily for cuts and calluses.Recommend diabetic shoes and inserts to prevent callus formation.Fall precautions. Sep, Cervical spondylosis with radiculopathy (ICD-10 - M47.22) ROM cervical spine Heat/ice and Tylenol as needed. Notify office w/ increased symptoms, hand weakness. viavoo Other 07-05-2023 Evaluation note* Encounter Date Diagnosis Assessment Notes Treatment Notes Treatment Clinical Notes Sep, Chronic HFrEF (heart failure with reduced ejection fraction) (ICD-10 - I50.22) Echo: LVEF 37%, RV dilated, RVSP 37 viavoo Other 06-30-2023 NoteHNO ID: [id number] Author: Debra Bond MD Service: ? Author Type: Physician Type: Progress Notes Filed: 10/10/2022 10:52 PM Note Text: Heart and Vascular [place] [facility] SECTION OF HEART FAILURE and CARDIAC TRANSPLANT MEDICINE OUTPATIENT VISIT DATE September 10, 2022 OUTPATIENT VISIT TYPE Established Patient PRIMARY CARE PHYSICIAN: Epifanio Montelongo ([facility]) [address] [place] [address] CHIEF COMPLAINT: Follow-up NURSING INTAKE (Patient?s concerns and/or recent hospitalizations/ER visits): HF Nursing Assessment: Interim Hospitalizations and/or ER visits: no Chest Pain: no Skipping or irregular heartbeats: no Shortness of breath at rest: no Shortness of breath with activity: no Cough: no Waking up in the middle of the night gasping for air: no Lightheadedness or dizziness: no Feeling like you are going to pass out: no Actually passing out: no Poor energy level: no Unintentional weight gain: no Unintentional weight loss: no Swelling in your legs,feet, abdomen: no Filling up quickly when you eat: no HISTORY OF PRESENT ILLNESS: NYHA Functional Class: III Stage: C heart failure Mr. Braxton is a 67 yoM with: 1. T1DM, diagnosed on 06/16/65, on insulin; A1c 6.2% per patient 2. CAD s/p STEMI and PCI 15 years ago 2005, 2011 ([place]), July 2019 (chest pain two stents), no stent cards, performed by Dr. Benítez at [facility]. Stents were all to the LAD 3. Chronic systolic HFrEF 35%, ACC/AHA Stage C, NYHA II now 4. Dyslipidemia 5. CKD II Estimated Creatinine Clearance: 60.9 mL/min (A) (based on SCr of 1.49 mg/dL (H)). 6. Retinopathy s/p laser treatment 7. Neuropathy for last 25 years, can feel sensation above ankles. He lost two toes on the R foot 5 years ago. He has history of a R diabetic foot ulcer as well 8. Pleural effusion s/p pleurx before removed; previous biopsies of lung and pleura are negative for malignancy Riding bike 50-60 miles a week No major complaints No breathlessness Doesn't walk like he used to Weight 235-240 at home Trace edema Last 2 Encounter Wt Readings: Date: Wt: 09/10/2022 112.4 kg (247 lb 12.8 oz) 03/26/2022 111.2 kg (245 lb 1.6 oz) Last 3 Encounter BP Readings: Date: BP: 09/10/2022 116/55 03/26/2022 108/52 10/16/2021 105/55 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 Type 1 diabetes (HCC) 06/16[birth year]1965 PAST SURGICAL HISTORY Procedure Laterality Date AMPUTATION METATARSAL+TOE,SINGLE Right 2 toes right foot CC PCI CORONARY INTERVENT 2004 x1, 2016 x 2, July 2019 x 2 LUNG SURGERY HX Left 05/2020 Recurrent pleural effusion SOCIAL HISTORY Social History Tobacco Use Smoking status: Some Days Types: Cigars Smokeless tobacco: Never Tobacco comments: very rare cigar (one so far in 2020) Vaping Use Vaping Use: Never used Substance Use Topics Alcohol use: Yes Comment: rare glass of scotch Drug use: Never FAMILY HISTORY Problem Relation Age of Onset Heart Failure Mother Alzheimer's Disease Mother at age 81 Prostate Cancer Father at age 77 No Known Problems Sister Prostate Cancer Brother No Known Problems Brother No Known Problems Brother No Known Problems Son No Known Problems Son No Known Problems Daughter ALLERGIES: ALLERGIES Allergen Reactions Iodine Other: See Comments Iv Dye [Iodinated C* Hives Pentazocine Anaphylaxis Other reaction(s): FLU-LIKE SYMPTOMS Other reaction(s): FLU-LIKE SYMPTOMS Other reaction(s): FLU-LIKE SYMPTOMS Talwin Compound Other: See Comments CURRENT MEDICATIONS: torsemide (DEMADEX) 20 mg tabletTAKE 2 TABLETS BY MOUTH TWICE A DAYDisp: 360 tabletRfl: 3 (Patient taking differently: Take 40 mg by mouth once daily.) metoprolol succinate ER (TOPROL XL) 25 mg 24 hr tabletTAKE 1/2 TABLET BY MOUTH ONCE DAILYDisp: 45 tabletRfl: 3 spironolactone (ALDACTONE) 25 mg tabletTAKE 1 TABLET BY MOUTH EVERY DAYDisp: 90 tabletRfl: 3 atorvastatin (LIPITOR) 80 mg tabletTake 1 tablet by mouth daily at bedtime.Disp: 90 tabletRfl: 3 sacubitril-valsartan (ENTRESTO) 24-26 mg tabletTake 0.5 tablets by mouth twice daily.Disp: 180 tabletRfl: 3 alfuzosin SR (UROXATRAL) 10 mg 24 hr tabletTake 10 mg by mouth once daily.Disp: Rfl: aspirin, enteric coated (ASPIRIN, ENTERIC COATED) 81 mg EC tabletTake 81 mg by mouth once daily.Disp: Rfl: gabapentin (NEURONTIN) 600 mg tabletTake 600 mg by mouth three times daily. Disp: Rfl: HUMALOG 100 unit/mL [id number]: insulin pump Disp: Rfl: REVIEW OF SYSTEMS: CONSTITUTION: Negative for: Fever, Night sweats and Recent weight change HEENT (more content not included)...[facility]06-30-2023 Instructions* Patient Instructions* Debra Bond MD - 09/10/2022 2:24 PM EDT Ejection fraction is 37%. This is stable compared to February of 2021. Keep up your current work and regimen. Virtual visit in 3 months. documented in this encounterOhio[facility]06-[facility] History of Present illness Narrative* Debra Bond MD - 09/10/2022 1:08 PM EDT Images from the original note were not included. Heart and Vascular [place] [facility] SECTION OF HEART FAILURE and CARDIAC TRANSPLANT MEDICINE OUTPATIENT VISIT DATE September 10, 2022 OUTPATIENT VISIT TYPE Established Patient PRIMARY CARE PHYSICIAN: Epifanio Montelongo ([facility]) [address] [place] [address] CHIEF COMPLAINT: Follow-up NURSING INTAKE (Patient s concerns and/or recent hospitalizations/ER visits): HF Nursing Assessment: Interim Hospitalizations and/or ER visits: no Chest Pain: no Skipping or irregular heartbeats: no Shortness of breath at rest: no Shortness of breath with activity: no Cough: no Waking up in the middle of the night gasping for air: no Lightheadedness or dizziness: no Feeling like you are going to pass out: no Actually passing out: no Poor energy level: no Unintentional weight gain: no Unintentional weight loss: no Swelling in your legs,feet, abdomen: no Filling up quickly when you eat: no HISTORY OF PRESENT ILLNESS: NYHA Functional Class: III Stage: C heart failure Mr. Braxton is a 67 yoM with: 1. T1DM, diagnosed on 06/16/65, on insulin; A1c 6.2% per patient 2. CAD s/p STEMI and PCI 15 years ago 2005, 2011 ([place]), July 2019 (chest pain two stents), no stent cards, performed by Dr. Benítez at [facility]. Stents were all to the LAD 3. Chronic systolic HFrEF 35%, ACC/AHA Stage C, NYHA II now 4. Dyslipidemia 5. CKD II Estimated Creatinine Clearance: 60.9 mL/min (A) (based on SCr of 1.49 mg/dL (H)). 6. Retinopathy s/p laser treatment 7. Neuropathy for last 25 years, can feel sensation above ankles. He lost two toes on the R foot 5 years ago. He has history of a R diabetic foot ulcer as well 8. Pleural effusion s/p pleurx before removed; previous biopsies of lung and pleura are negative for malignancy Riding bike 50-60 miles a week No major complaints No breathlessness Doesn't walk like he used to Weight 235-240 at home Trace edema Last 2 Encounter Wt Readings: Date: Wt: 09/10/2022 112.4 kg (247 lb 12.8 oz) 03/26/2022 111.2 kg (245 lb 1.6 oz) Last 3 Encounter BP Readings: Date: BP: 09/10/2022 116/55 03/26/2022 108/52 10/16/2021 105/55 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 Type 1 diabetes (HCC) 06[birth year]16[birth year]1965 PAST SURGICAL HISTORY Procedure Laterality Date AMPUTATION METATARSAL+TOE,SINGLE Right 2 toes right foot CC PCI CORONARY INTERVENT 2004 x1, 2016 x 2, July 2019 x 2 LUNG SURGERY HX Left 05/2020 Recurrent pleural effusion SOCIAL HISTORY Social History Tobacco Use Smoking status: Some Days Types: Cigars Smokeless tobacco: Never Tobacco comments: very rare cigar (one so far in 2020) Vaping Use Vaping Use: Never used Substance Use Topics Alcohol use: Yes Comment: rare glass of scotch Drug use: Never FAMILY HISTORY Problem Relation Age of Onset Heart Failure Mother Alzheimer's Disease Mother at age 81 Prostate Cancer Father at age 77 No Known Problems Sister Prostate Cancer Brother No Known Problems Brother No Known Problems Brother No Known Problems Son No Known Problems Son No Known Problems Daughter ALLERGIES: ALLERGIES Allergen Reactions Iodine Other: See Comments Iv Dye [Iodinated C* Hives Pentazocine Anaphylaxis Other reaction(s): FLU-LIKE SYMPTOMS Other reaction(s): FLU-LIKE SYMPTOMS Other reaction(s): FLU-LIKE SYMPTOMS Talwin Compound Other: See Comments CURRENT MEDICATIONS: torsemide (DEMADEX) 20 mg tablet^TAKE 2 TABLETS BY MOUTH TWICE A DAY^Disp: 360 tablet^Rfl: 3 (Patient taking differently: Take 40 mg by mouth once daily.) metoprolol succinate ER (TOPROL XL) 25 mg 24 hr tablet^TAKE 1/2 TABLET BY MOUTH ONCE DAILY^Disp: 45tablet^Rfl: 3 spironolactone (ALDACTONE) 25 mg tablet^TAKE 1 TABLET BY MOUTH EVERY DAY^Disp: 90 tablet^Rfl: 3 atorvastatin (LIPITOR) 80 mg tablet^Take 1 tablet by mouth daily at bedtime.^Disp: 90 tablet^Rfl: 3 sacubitril-valsartan (ENTRESTO) 24-26 mg tablet^Take 0.5 tablets by mouth twice daily.^Disp: 180 tablet^Rfl: 3 alfuzosin SR (UROXATRAL) 10 mg 24 hr tablet^Take 10 mg by mouth once daily.^Disp: ^Rfl: aspirin, enteric coated (ASPIRIN, ENTERIC COATED) 81 mg EC tablet^Take 81 mg by mouth once daily.^Disp: ^Rfl: gabapentin (NEURONTIN) 600 mg tablet^Take 600 mg by mouth three times daily. ^Disp: ^Rfl: HUMALOG 100 unit/mL injection^10-03-2020: insulin pump ^Disp: ^Rfl: REVIEW OF SYSTEMS: CONSTITUTION: Negative for: Fever, Night sweats and Recent weight change HEENT: Negative for: Hearing loss RESPIRATORY: Negative for: Cough and Difficulty breathing GASTROINTESTINAL: Negative for: Melena, Nausea, Diarrhea, Abdominal distention and Early satiety MUSCULOSKELETAL: Positive for: Arthralgias and Myalgias NEUROLOGICAL: Negative for: Headaches and Dizziness SKIN: Negative for: Rash EYES: Negative for: Visual disturbance CARDIOVASCULAR: Negative for: Chest pain, Leg swelling, Arrhythmia and Pre-syncope GENITOURINARY: Negative for: Difficulty urinating PATIENT ENTERED DATA: KCCQ-12 Scores 03/19/2022 06/24/2022 09/03/2022 Physical Limitation Score 91.67 (Class I Heart Failure ) 75 (Class II Heart Failure ) 66.67 (Class II Heart Failure ) Symptom Frequency Score 77.08 (Class II Heart Failure ) 83.33 (Class II Heart Failure ) 79.17 (Class II Heart Failure ) Quality of Life Score 87.5 (Class I Heart Failure) 100 (Class I Heart Failure) 100 (Class I Heart Failure) Social Limitation Score 83.33 (Class II Heart Failure) 83.33 (Class II Heart Failure) 75 (Class II Heart Failure) Overall Summary Score 84.9 (Class II Heart Failure ) 85.42 80.21 (Class II Heart Failure ) PHQ-9 03/19/2022 06/24/2022 09/03/2022 Score 0 0 0 PROMIS Global Health - (T-Scores - the mean of general population = 50. Five points is a clinicallymeaningful difference.) 01/14/2022 03/19/2022 06/24/2022 Physical T-Score 54.1 54.1 50.8 Mental T-Score 59 62.5 - PHYSICAL EXAMINATION: BP 116/55 (BP Site: Left Arm) Pulse (!) 58 Ht 185.4 cm (6' 1 ) Wt 112.4 kg (247 lb 12.8 oz) SpO2 98% BMI 32.69 kg/m General: Well appearing, in no acute distress. Skin: No clubbing, no cyanosis. Eyes: Extra ocular movements intact Oropharynx: Teeth in good repair. Neck: No jugular venous distention, no carotid bruits, carotids have a normal upstroke, no palpablethyromegaly. Lungs: Clear to auscultation bilaterally, no wheezing or rhonchi. Heart: Regular rhythm, PMI not displaced, S1, S2 normal, no S3, no S4, no heaves, no rub and no murmur. Abdomen: Soft, nontender, bowel sounds normal, no palpable organomegaly, no bruits. Extremities: No peripheral edema . Grade 2/4 distal pulses bilaterally. Neuro: Oriented to person, place and time, alert, cooperative, gait coordinated. CARDIOVASCULAR MEDICINE TESTING: I have personally reviewed the Electrocardiogram, Chest X-ray, Laboratory Testing, Echocardiogram, Stress Test: Positron Emission Tomography (PET), and Cardiac Catheterization/Percutaneous Coronary Intervention (PCI). Component Latest Ref Rng & Units 10/16/2021 03/26/2022 Protein, Total 6.3 - 8.0 g/dL 6.9 6.4 Albumin 3.9 - 4.9 g/dL 4.1 3.8 (L) Calcium 8.5 - 10.2 mg/dL 9.6 8.8 Bilirubin, Total 0.2 - 1.3 mg/dL 1.3 0.8 Alkaline Phosphatase 38 - 113 U/L 68 81 AST 14 - 40 U/L 23 21 ALT 10 - 54 U/L 10 18 Glucose 74 - 99 mg/dL 118 (H) 169 (H) BUN 9 - 24 mg/dL 32 (H) 23 Creatinine 0.73 - 1.22 mg/dL 1.53 (H) 1.19 Sodium 136 - 144 mmol/L 137 137 Potassium 3.7 - 5.1 mmol/L 4.6 4.4 Chloride 97 - 105 mmol/L 95 (L) 100 CO2 22 - 30 mmol/L 34 (H) 28 Anion Gap 9 - 18 mmol/L 8 (L) 9 eGFR >=60 mL/min/1.73m 49 (L) 67 NT Pro BNP <125 pg/mL 2,217 (H) 3,092 (H) TTE 09/10/22 Impression CONCLUSIONS: - Technically difficult exam due to body habitus. - Exam indication: Evaluation of known heart failure to guide therapy - There is a resting wall motion abnormality in the territory of the RCA and LAD. - The left ventricle is moderately dilated. Left ventricular systolic function is moderately decreased. EF = 37 5% (2D biplane) Definity contrast used for endocardial border detection. Grade II left ventricular diastolic dysfunction. - The right ventricle is mildly dilated. Right ventricular systolic function is mildly decreased. - There is moderate (2+) mitral valve regurgitation due to restricted leaflet motion. - Estimated right ventricular systolic pressure is 37 mmHg consistent with mild pulmonary hypertension. Estimated right atrial pressure is 3 mmHg based on IVC assessment. - Exam was compared with the prior CC echocardiographic exam performed on 02/25/2021. Similar findings Met Stress 07/16/21 Metabolic Exercise Test Report: MET Machine #1, (Cycle) DATA SUMMARY Peak RER: 1.19 Peak WR: 49% predicted Peak VO2: 51% of predicted (11.0 ml/kg/min) AT: 41% of predicted peak VO2 Peak BP: 98/52 Peak HR: 79% of predicted CI: 1.33 Peak VO2/HR: 64% of predicted VO2/WR slope: 4.3 ml/min/archibald Peak SpO2: 97% Peak VE: 36% of predicted Peak RR: 38 br/min Peak PETCO2: 37 mmHg VE/VCO2 slope: 30.3 EOV: Mild Limiting symptom: Fatigue INTERPRETATION EXERCISE PERFORMANCE: Moderately abnormal exercise power. Maximal aerobic effort. Moderately abnormal aerobic capacity. Abnormal aerobic efficiency. Abnormal circulatory limitation pattern. CARDIOVASCULAR RESPONSE: Blunted blood pressure response. Blunted heart rate response. Abnormal chronotropic index. Abnormal stroke volume response. No clinically significant arrhythmias. No stress-induced ischemia. PULMONARY RESPONSE: No oxygen desaturation. Normal ventilatory reserve. Normal ventilatory pattern. Mildly abnormal. Mild exercise oscillatory ventilation. SUMMARY: Below average exercise capacity based upon peak VO2 obtained due to cardiopulmonary limitation. Blunted oxygen pulse, cannot exclude impaired stroke volume reserve, and blunted chronotropic response. Suspect underlying relative cardiac deconditioning as well. IMPRESSION: NYHA Functional Class: III Stage: C heart failure Target weight: 235# Mr. Braxton is a 67 yoM with: 1. T1DM, diagnosed on 06/16/65, on insulin; A1c 6.2% per patient 2. CAD s/p STEMI and PCI 15 years ago 2005, 2011 ([place]), July 2019 (chest pain two stents), no stent cards, performed by Dr. Benítez at [facility]. Stents were all to the LAD 3. Chronic systolic HFrEF 35%, ACC/AHA Stage C, NYHA II now 4. Dyslipidemia 5. CKD II Estimated Creatinine Clearance: 60.9 mL/min (A) (based on SCr of 1.49 mg/dL (H)). 6. Retinopathy s/p laser treatment 7. Neuropathy for last 25 years, can feel sensation above ankles. He lost two toes on the R foot 5 years ago. He has history of a R diabetic foot ulcer as well 8. Pleural effusion s/p pleurx before removed; previous biopsies of lung and pleura are negative for malignancy Mr. Braxton has demonstrated the longest period of stability since I've seen him. He has had no hospitalizations since establishing care with me in September 2020 but also, he has more energy, is doing more activity, and rates his quality of life dramatically better. His objective markers show stage C HF but symptomatically he is better than some of these suggest. His pVO2 in July 2021 was 11 at an RER of 1.19 but since that test he has been able to do much more than would be suggested. His CI was 2.3- 2.5. His echo has an LVEF of 37%. His NT pro BNP is decreasing. We have optimized his GDMT to the best we can as higher doses of BB have led to LH/presyncope. Continue BB, ARNI, kaya, and diuretic - he is not on SGLT2i due to T1DM. For his known CAD I obtained a PET in 2020 which showed moderate ischemia in the LCx territory; however, given lack of angina, electrical instability, dyspnea or worsening HF symptoms, my sense is that we should treat his CAD medically. Performing a PCI for LVEF improvement will have minimal yield based on our available evidence, in the absence of above. Also given his diabetic kidney disease I would not want to subject him to contrast dye unnecessarily for no strong compelling indication at this time. I will ask for his [facility] films from 2019 from [facility] to be uploaded here so we have a frame of reference. Continue asa, statin. Heart Failure specific medications (list current, note updates or changes, note prior intolerance): BB: Metop XL 12.5 mg daily ACEI/ARB/ARNI: 0.5 tab of ARNI 24/26 mg BID MRA: [place] 25 mg daily SGLT2: None due to T1DM Diuretic: Torsemide 40 mg daily Digoxin: none Vasodilators: none Anti-arrhythmics: none Ivabradine: none Other anti-HTN: none PLAN AND RECOMMENDATIONS: No med changes Follow up in 3 months virtually I personally interviewed, confirmed and edited the above information as obtained by others I personally spent 40 minutes in total time involved in the management and care of this patient. Wediscussed natural history of disease, current treatment options, and future potential treatment options. We discussed diet, exercise, other non-medical management as above. Debra Bond MD, [facility] Section Of Heart Failure and Cardiac Transplant Medicine Heart and Vascular [place] [facility] Desk [address] [place] [address] documented [facility] Evaluation note* Encounter Date Diagnosis Assessment Notes Treatment Notes Treatment Clinical Notes July, Dysuria (ICD-10 - R30.0) viavoo Other 05-02-2023 Evaluation note* Encounter Date Diagnosis Assessment Notes Treatment Notes Treatment Clinical Notes July, Type 1 diabetes mellitus with diabetic neuropathy (ICD-10 - E10.40) About diabetes type 1 material was published 1. Controlled, Type 1 diabetes with A1c of 6.1% 2. Blood glucose levels stable. According to pump/cgm download 06/29/2022-07/12/2022 avgerage SG 130. >180-8%, 70-180-90%, <70-2%. Reviewed download with pt, infrequent incidence of hypoglcyemia. Reviewed with pt if increased physical activity to turn on exercise feature 1-2 hrs before activity to reduce risk of hypoglycemia. Pt using less basal insulin- will modify basal settings- see below. 3. Patient is alert, oriented and receptive to making changes or counseling Notes: Seen for an assessment of current glucose pattern, changes in treatment plan, with this time spent in counseling and coordination of care related to diabetes, risks, and benefits of treatment, medications, and side effects. TOPICS REVIEWED: 1. Time was spent reviewing: a. Basic concepts of diabetes, progressive beta cell , concepts of basal/bolus/correc tive insulin requirements. Basal: The goal is fasting blood glucose of 90-130mg. If fasting blood glucose starts to run under 100mg 3x's/ week, decrease dose by 10%. Bolus: The goal is to hold the blood glucose level steady meal to meal. If pt. is going to have increased physical activity after a meal, decrease the schedule meal dose prior to the activity by 30-50%. If pt. skips a meal do not take this dose. Correction: The goal is to correct an elevated glucose back into the 100-150mg range b. Nutrition: Concepts of healthy diet reviewed, encouraged to decrease saturated fat in diet and increase non-starchy vegetables and fruits in diet. BMI: Pt. needs to select one small change to decrease caloric intake or increase physical activity to help decrease weight. c. Correct treatment of hypoglycemia, carry a glucose source at all times on your person, in vehicles, and at bedside. Can use glucose tablets/4, four ounces of pop or juice equal to 15 G of carbohydrate. Blood glucose should be 100 mg/dl or higher when driving. d. ADA glucose goals for age and medical complexity reviewed e. Patient questions addressed 2. Activity/exercise: Encouraged to start any form of physical activity. Start low level and increase slowly to a minimal goal of 150 minutes/week. Limit activity to what is allowed by other issues such as cardiac, pulmonary or orthopedic restrictions. 3. Standards of care: Reminded to have an annual dilated eye exam, A1C every 3 months, urine testing for microalbumin once/year, check feet daily and report any cuts or sores that do not appear to be healing. 4. Meter: Plan to check blood glucose: Please check blood glucose levels 10 times/day. Back to back meals reveal effectiveness of bolus dosing. 5. [facility]. Contact office if any issues or concerns with patterns of hypoglycemia, hyperglycemia, or diabetes medication issues. 6. Prescriptions: [facility]: Gabapentin (oarrs reviewed), Gvoke 07/13/22. Sample tresiba u100/pen needles given for back up if off pump or fails. 7. Prescriptions will not be filled unless you are compliant with follow up appointments or have a follow up appointment scheduled as ordered by your provider. Refills should be requested at the time of your visit. July, Insulin long-term use (ICD-10 - Z79.4) July, Dietary counseling and surveillance (ICD-10 - Z71.3) Eat well, exercise well, be well: dietary and fitness guidelines material was published July, HTN (hypertension) (ICD-10 - I10) High blood pressure material was published on arb July, Hyperlipidemia LDL goal <100 (ICD-10 - E78.5) Managing your cholesterol material was published 01/02 LDL 60, on statin. July, Hypoglycemia due to type 1 diabetes mellitus (ICD-10 - E10.649) Diabetes and exercise material was published, Low blood glucose and diabetes material was published see above July, CKD (chronic kidney disease) (ICD-10 - N18.9) Living with chronic kidney disease material was published July, BMI 32.0-32.9,adult (ICD-10 - Z68.32) Healthy eating material was published July, Insulin pump titration (ICD-10 - Z46.81) Diabetes and exercise material was published Tandem control iq insulin pump with dexcom g6 CGM:MN 0.82 changed to 0.74 units/hr (TBI 17.76 units/day)ICR MN 1:7, 530 am 1:6, 11am 1:7ISF 1:35Active insulin time 5 hoursTarget: MN 110 viavoo Other 01-24-2023 Evaluation note* Encounter Date Diagnosis Assessment Notes Treatment Notes Treatment Clinical Notes Mar, Type 1 diabetes mellitus with diabetic neuropathy (ICD-10 - E10.40) About diabetes type 1 material was published 1. Controlled, Type 1 diabetes with A1c of 6.1% 2. Blood glucose levels according to pump/cgm download 03/23/2022- 3 avgerage SG 144. >180-13%, 70-180-87%, <70-0%. Reviewed download with pt, infrequent incidence of hypoglcyemia. Pt reports exercise feature has been on and wasn't sure how to shut off, he has been entering phantom carbs to bring glucose down. Pt using less basal insulin; however, no changes to basal settings d/t pt being in exercise feature and the extra phantom carb entry to counter less basal that was being delivered. Turned exercise feature off. Sleep schedule is on 11pm- 8am. 3. Patient is alert, oriented and receptive to making changes or counseling Notes: Seen for an assessment of current glucose pattern, changes in treatment plan, with this time spent in counseling and coordination of care related to diabetes, risks, and benefits of treatment, medications, and side effects. TOPICS REVIEWED: 1. Time was spent reviewing: a. Basic concepts of diabetes, progressive beta cell , concepts of basal/bolus/correc tive insulin requirements. Basal: The goal is fasting blood glucose of 90-130mg. If fasting blood glucose starts to run under 100mg 3x's/ week, decrease dose by 10%. Bolus: The goal is to hold the blood glucose level steady meal to meal. If pt. is going to have increased physical activity after a meal, decrease the schedule meal dose prior to the activity by 30-50%. If pt. skips a meal do not take this dose. Correction: The goal is to correct an elevated glucose back into the 100-150mg range b. Nutrition: Concepts of healthy diet reviewed, encouraged to decrease saturated fat in diet and increase non-starchy vegetables and fruits in diet. BMI: Pt. needs to select one small change to decrease caloric intake or increase physical activity to help decrease weight. c. Correct treatment of hypoglycemia, carry a glucose source at all times on your person, in vehicles, and at bedside. Can use glucose tablets/4, four ounces of pop or juice equal to 15 G of carbohydrate. Blood glucose should be 100 mg/dl or higher when driving. d. ADA glucose goals for age and medical complexity reviewed e. Patient questions addressed 2. Activity/exercise: Encouraged to start any form of physical activity. Start low level and increase slowly to a minimal goal of 150 minutes/week. Limit activity to what is allowed by other issues such as cardiac, pulmonary or orthopedic restrictions. 3. Standards of care: Reminded to have an annual dilated eye exam, A1C every 3 months, urine testing for microalbumin once/year, check feet daily and report any cuts or sores that do not appear to be healing. 4. Meter: Plan to check blood glucose: Please check blood glucose levels 10 times/day. Back to back meals reveal effectiveness of bolus dosing. 5. [facility] 3 [facility]. Contact office if any issues or concerns with patterns of hypoglycemia, hyperglycemia, or diabetes medication issues. 6. Prescriptions: None at this time. 7. Prescriptions will not be filled unless you are compliant with follow up appointments or have a follow up appointment scheduled as ordered by your provider. Refills should be requested at the time of your visit. Mar, Insulin long-term use (ICD-10 - Z79.4) Mar, Dietary counseling and surveillance (ICD-10 - Z71.3) Eat well, exercise well, be well: dietary and fitness guidelines material was published Mar, HTN (hypertension) (ICD-10 - I10) High blood pressure material was published on arb Mar, Hyperlipidemia LDL goal <100 (ICD-10 - E78.5) Managing your cholesterol material was published 01/02 LDL 60, on statin. Mar, Hypoglycemia due to type 1 diabetes mellitus (ICD-10 - E10.649) Diabetes and exercise material was published, Low blood glucose and diabetes material was published see above Mar, CKD (chronic kidney disease) (ICD-10 - N18.9) Living with chronic kidney disease material was published Mar, Insulin pump in place (ICD-10 - Z96.41) Tandem control iq insulin pump with dexcom g6 CGM:MN 0.82 units/hr(TBI 19.68 units/day)ICR MN 1:7, 530 am 1:6, 11am 1:7ISF 1:35Active insulin time 5 hoursTarget: MN 110 24 Mar, 2022 BMI 31.0-31.9,adult (ICD-10 - Z68.31) Maintaining a healthful weight material was published viavoo Other 01-13-2023 NoteHNO ID: [id number] Author: Debra Bond MD Service: ? Author Type: Physician Type: Progress Notes Filed: 03/26/2022 1:55 PM Note Text: Heart and Vascular [place] [facility] SECTION OF HEART FAILURE and CARDIAC TRANSPLANT MEDICINE OUTPATIENT VISIT DATE March 26, 2022 OUTPATIENT VISIT TYPE Established Patient PRIMARY CARE PHYSICIAN: Epifanio Montelongo ([facility]) [address] [place] [address] CHIEF COMPLAINT: Follow-up NURSING INTAKE (Patient?s concerns and/or recent hospitalizations/ER visits): HF Nursing Assessment: Interim Hospitalizations and/or ER visits:no Chest Pain: no Skipping or irregular heartbeats: no Shortness of breath at rest: no Shortness of breath with activity: yes, a little Cough: no Waking up in the middle of the night gasping for air: no Lightheadedness or dizziness: no Feeling like you are going to pass out: no Actually passing out: no Poor energy level: getting better Unintentional weight gain: no Unintentional weight loss: no Swelling in your legs,feet, abdomen: yes, feet Filling up quickly when you eat: no HISTORY OF PRESENT ILLNESS: NYHA Functional Class: III Stage: C heart failure Mr. Braxton is a 66 yoM with: 1. T1DM, diagnosed on 06/16/65, on insulin; A1c 6.2% per patient 2. CAD s/p STEMI and PCI 15 years ago 2005, 2011 ([place]), July 2019 (chest pain two stents), no stent cards, performed by Dr. Benítez at [facility]. Stents were all to the LAD 3. Chronic systolic HFrEF 35%, ACC/AHA Stage C, NYHA II now 4. Dyslipidemia 5. CKD II Estimated Creatinine Clearance: 60.9 mL/min (A) (based on SCr of 1.49 mg/dL (H)). 6. Retinopathy s/p laser treatment 7. Neuropathy for last 25 years, can feel sensation above ankles. He lost two toes on the R foot 5 years ago. He has history of a R diabetic foot ulcer as well 8. Pleural effusion s/p pleurx before removed; previous biopsies of lung and pleura are negative for malignancy Doing well. Last visit 01/21/22 virtually. He has had some solid weight gain since then. Weight 236#. BP 102/63-110/58. LH has disappeared. 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 Type 1 diabetes (HCC) 06/16/1965 PAST SURGICAL HISTORY Procedure Laterality Date AMPUTATION METATARSAL+TOE,SINGLE Right 2 toes right foot CC PCI CORONARY INTERVENT 2004 x1, 2016 x 2, July 2019 x 2 LUNG SURGERY HX Left 05/2020 Recurrent pleural effusion SOCIAL HISTORY Social History Tobacco Use Smoking status: Some Days Types: Cigars Smokeless tobacco: Never Tobacco comments: very rare cigar (one so far in 2020) Vaping Use Vaping Use: Never used Substance Use Topics Alcohol use: Yes Comment: rare glass of scotch Drug use: Never FAMILY HISTORY Problem Relation Age of Onset Heart Failure Mother Alzheimer's Disease Mother at age 81 Prostate Cancer Father at age 77 No Known Problems Sister Prostate Cancer Brother No Known Problems Brother No Known Problems Brother No Known Problems Son No Known Problems Son No Known Problems Daughter ALLERGIES: ALLERGIES Allergen Reactions Iodine Other: See Comments Iv Dye [Iodinated C* Hives Pentazocine Anaphylaxis Other reaction(s): FLU-LIKE SYMPTOMS Other reaction(s): FLU-LIKE SYMPTOMS Other reaction(s): FLU-LIKE SYMPTOMS Talwin Compound Other: See Comments CURRENT MEDICATIONS: spironolactone (ALDACTONE) 25 mg tablet TAKE 1 TABLET BY MOUTH EVERY DAY torsemide (DEMADEX) 20 mg tablet Take 2 tablets by mouth once daily. atorvastatin (LIPITOR) 80 mg tablet Take 1 tablet by mouth daily at bedtime. sacubitril-valsartan (ENTRESTO) 24-26 mg tablet Take 0.5 tablets by mouth twice daily. metoprolol succinate ER (TOPROL XL) 25 mg 24 hr tablet Take 0.5 tablets by mouth once daily. alfuzosin SR (UROXATRAL) 10 mg 24 hr tablet Take 10 mg by mouth once daily. aspirin, enteric coated (ASPIRIN, ENTERIC COATED) 81 mg EC tablet Take 81 mg by mouth once daily. gabapentin (NEURONTIN) 600 mg tablet Take 600 mg by mouth three times daily. HUMALOG 100 unit/mL injection 10-03-2020: insulin pump REVIEW OF SYSTEMS: CONSTITUTION: Negative for: Fever, Night sweats and Recent weight change HEENT: Negative for: Hearing loss RESPIRATORY: Negative for: Cough and Difficulty breathing GASTROINTESTINAL: Negative for: Melena, Nausea, Diarrhea, Abdominal distention and Early satiety MUSCULOSKELETAL: Positive for: Myalgias Negative for: Arthralgias NEUROLOGICAL: Negative for: Headaches and Dizziness SKIN: Negative for: Rash EYES: Negative for: Visual disturbance CARDIOVASCULAR: Negativ (more content not included)...[facility] 03-17-2022 Evaluation note* Encounter Date Diagnosis Assessment Notes Treatment Notes Treatment Clinical Notes Mar, Medicare annual wellness visit, initial (ICD-10 - Z00.00) Personalized health advice was given to the beneficiary including a written plan for screenings discussed and provided. Advanced care planning reviewed and/or information given as requested. Additional counseling was provided here today in regards to, ( ). The above visit was performed by ( ), under direct supervision of Dr. Perez ). Document reviewed and amended by provider signed below. Personalized health advice was given to the beneficiary including a written plan for screenings discussed and provided. Advanced care planning reviewed and/or information given as requested. Additional counseling was provided here today in regards to, ( ). The above visit was performed by ( ), under direct supervision of Dr. Perez ). Document reviewed and amended by provider signed below. Mar, Ischemic cardiomyopathy (ICD-10 - I25.5) Mar, Atherosclerotic hear t disease of [place] coronary artery without angina pectoris (ICD-10 - I25.10) Mar, HTN (hypertension) (ICD-10 - I10) Mar, PAD (peripheral artery disease) (ICD-10 - I73.9) Mar, Type 1 diabetes mellitus with complication (ICD-10 - E10.8) Mar, Type 1 diabetes mellitus with diabetic neuropathy (ICD-10 - E10.40) Mar, HFrEF (heart failure with reduced ejection fraction) (ICD-10 - I50.20) Mar, Screening PSA (prostate specific antigen) (ICD-10 - Z12.5) Mar, Annual physical exam (ICD-10 - Z00.00) viavoo Other 11-10-2022 NoteHNO ID: [id number] Author: Derba Bond MD Service: ? Author Type: Physician Type: Progress Notes Filed: 02/22/2022 9:33 AM Note Text: Heart, Vascular AND Thoracic [place] Department of Cardiovascular Medicine VIRTUAL VIDEO VISIT ESTABLISHED OUTPATIENT VISIT SERVICE DATE: 01/21/2022 Patient: Ellis Braxton SERVICE TIME: 0800 : 1955 This is a virtual video visit. It required patient-provider interaction for the medical decision making as documented below. Ellis Braxton has consented to this video encounter. Ellis Braxton is a 66 year old man seen for follow-up. CHIEF COMPLAINT Follow-up HISTORY OF PRESENT ILLNESS Ellis Braxton is a 66 year old man NYHA Functional Class: III Stage: C heart failure Target weight: 232# 1. T1DM, diagnosed on 06/16/65, on insulin; A1c 6.3% last in July 2020 per patient 2. CAD s/p STEMI and PCI 15 years ago 2005, 2011 ([place]), July 2019 (chest pain two stents), no stent cards, performed by Dr. Benítez at [facility]. Stents were all to the LAD 3. Chronic systolic HFrEF 35%, ACC/AHA Stage C, NYHA III 4. Dyslipidemia 5. CKD II Estimated Creatinine Clearance: 60.9 mL/min (A) (based on SCr of 1.49 mg/dL (H)). 6. Retinopathy s/p laser treatment 7. Neuropathy for last 25 years, can feel sensation above ankles. He lost two toes on the R foot 5 years ago. He has history of a R diabetic foot ulcer as well 8. Pleural effusion s/p pleurx before removed; previous biopsies of lung and pleura are negative for malignancy A few weeks ago Mr. Braxton messaged with lightheadedness. As a result we decreased his ARNI dosing to 1/2 tab BID of 24/26 mg BID tabs. BP since then has averaged 100-110s/50s-60s. Weight stable 231-234#. PAST MEDICAL HISTORY Diagnosis Date Amputated toe (HCC) right Broken fingers multiple CAD (coronary artery disease) Diabetes mellitus (HCC) insulin pump Fracture, skull (HCC) Heart attack (HCC) 2016 High cholesterol Hypertension Prostate cancer (HCC) Seeds and XRT Stroke (HCC) behind my eyes no residual Type 1 diabetes (HCC) 06/16/1965 PAST SURGICAL HISTORY Procedure Laterality Date AMPUTATION METATARSAL+TOE,SINGLE Right 2 toes right foot CC PCI CORONARY INTERVENT 2004 x1, 2016 x 2, July 2019 x 2 LUNG SURGERY HX Left 05/2020 Recurrent pleural effusion FAMILY HISTORY Problem Relation Age of Onset Heart Failure Mother Alzheimer's Disease Mother at age 81 Prostate Cancer Father at age 77 No Known Problems Sister Prostate Cancer Brother No Known Problems Brother No Known Problems Brother No Known Problems Son No Known Problems Son No Known Problems Daughter Social History Tobacco Use Smoking status: Some Days Types: Cigars Smokeless tobacco: Never Tobacco comments: very rare cigar (one so far in 2020) Vaping Use Vaping Use: Never used Substance Use Topics Alcohol use: Yes Comment: rare glass of scotch Drug use: Never ALLERGIES Allergen Reactions Iodine Other: See Comments Iv Dye [Iodinated C* Hives Pentazocine Anaphylaxis Other reaction(s): FLU-LIKE SYMPTOMS Other reaction(s): FLU-LIKE SYMPTOMS Talwin Compound Other: See Comments CURRENT MEDICATIONS sacubitril-valsartan (ENTRESTO) 24-26 mg tablet Take 0.5 tablets by mouth twice daily. metoprolol succinate ER (TOPROL XL) 25 mg 24 hr tablet Take 0.5 tablets by mouth once daily. torsemide (DEMADEX) 20 mg tablet Take 2 tablets by mouth twice daily. spironolactone (ALDACTONE) 25 mg tablet Take 1 tablet by mouth once daily. alfuzosin SR (UROXATRAL) 10 mg 24 hr tablet Take 10 mg by mouth once daily. aspirin, enteric coated (ASPIRIN, ENTERIC COATED) 81 mg EC tablet Take 81 mg by mouth once daily. atorvastatin (LIPITOR) 80 mg tablet Take 80 mg by mouth daily at bedtime. gabapentin (NEURONTIN) 600 mg tablet Take 600 mg by mouth three times daily. HUMALOG 100 unit/mL injection 10-03-2020: insulin pump REVIEW OF SYSTEMS: Answers submitted by the patient for this visit: Review of Systems Heart Failure (Submitted on 01/14/2022) Fever : No Night Sweats: No Recent Unintentional Weight Change: No Vision Disturbance: No Hearing Loss: No A Cough: No Difficulty Breathing?: No Chest Pain: No Leg Swelling: No Skipping or irregular heartbeats?: No Feel like passing out?: No Black Tarry Stools: No Nausea: No Diarrhea: No Swelling in your abdomen?: No Fill up quickly when you eat?: No Difficulty Urinating?: No Joint Pain or Stiffness: No Muscle Aches: No A Rash: No Dizziness: No Headaches: No PHYSICAL EXAMINATION: VIDEO EXAM: (if completed, performed via video enabled technology) GENERAL: alert and appropriate, in no distress, well-hydrated, well nourished, and happy, smiling, interactive SKIN: no rash noted HEAD: normocephalic, no abnormality or lesion noted EYES: no injection and visual acuity is grossly normal (more content not included)...[facility]11-10-2022 History of Present illness Narrative* Debra Bond MD - 01/21/2022 8:14 AM EST Heart, Vascular & Thoracic [place] Department of Cardiovascular Medicine VIRTUAL VIDEO VISIT ESTABLISHED OUTPATIENT VISIT SERVICE DATE: 01/21/2022 Patient: Ellis Braxton SERVICE TIME: 0800 : 1955 This is a virtual video visit. It required patient-provider interaction for the medical decision making as documented below. Ellis Braxton has consented to this video encounter. Ellis Braxton is a 66 year old man seen for follow-up. CHIEF COMPLAINT Follow-up HISTORY OF PRESENT ILLNESS Ellis Braxton is a 66 year old man NYHA Functional Class: III Stage: C heart failure Target weight: 232# 1. T1DM, diagnosed on 06/16/65, on insulin; A1c 6.3% last in July 2020 per patient 2. CAD s/p STEMI and PCI 15 years ago 2005, 2011 ([place]), July 2019 (chest pain two stents), no stent cards, performed by Dr. Benítez at [facility]. Stents were all to the LAD 3. Chronic systolic HFrEF 35%, ACC/AHA Stage C, NYHA III 4. Dyslipidemia 5. CKD II Estimated Creatinine Clearance: 60.9 mL/min (A) (based on SCr of 1.49 mg/dL (H)). 6. Retinopathy s/p laser treatment 7. Neuropathy for last 25 years, can feel sensation above ankles. He lost two toes on the R foot 5 years ago. He has history of a R diabetic foot ulcer as well 8. Pleural effusion s/p pleurx before removed; previous biopsies of lung and pleura are negative for malignancy A few weeks ago Mr. Braxton messaged with lightheadedness. As a result we decreased his ARNI dosing to 1/2 tab BID of 24/26 mg BID tabs. BP since then has averaged 100-110s/50s-60s. Weight stable 231-234#. 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 Type 1 diabetes (HCC) 06/16/1965 PAST SURGICAL HISTORY Procedure Laterality Date AMPUTATION METATARSAL+TOE,SINGLE Right 2 toes right foot CC PCI CORONARY INTERVENT 2004 x1, 2016 x 2, July 2019 x 2 LUNG SURGERY HX Left 05/2020 Recurrent pleural effusion FAMILY HISTORY Problem Relation Age of Onset Heart Failure Mother Alzheimer's Disease Mother at age 81 Prostate Cancer Father at age 77 No Known Problems Sister Prostate Cancer Brother No Known Problems Brother No Known Problems Brother No Known Problems Son No Known Problems Son No Known Problems Daughter Social History Tobacco Use Smoking status: Some Days Types: Cigars Smokeless tobacco: Never Tobacco comments: very rare cigar (one so far in 2020) Vaping Use Vaping Use: Never used Substance Use Topics Alcohol use: Yes Comment: rare glass of scotch Drug use: Never ALLERGIES Allergen Reactions Iodine Other: See Comments Iv Dye [Iodinated C* Hives Pentazocine Anaphylaxis Other reaction(s): FLU-LIKE SYMPTOMS Other reaction(s): FLU-LIKE SYMPTOMS Talwin Compound Other: See Comments CURRENT MEDICATIONS sacubitril-valsartan (ENTRESTO) 24-26 mg tablet Take 0.5 tablets by mouth twice daily. metoprolol succinate ER (TOPROL XL) 25 mg 24 hr tablet Take 0.5 tablets by mouth once daily. torsemide (DEMADEX) 20 mg tablet Take 2 tablets by mouth twice daily. spironolactone (ALDACTONE) 25 mg tablet Take 1 tablet by mouth once daily. alfuzosin SR (UROXATRAL) 10 mg 24 hr tablet Take 10 mg by mouth once daily. aspirin, enteric coated (ASPIRIN, ENTERIC COATED) 81 mg EC tablet Take 81 mg by mouth once daily. atorvastatin (LIPITOR) 80 mg tablet Take 80 mg by mouth daily at bedtime. gabapentin (NEURONTIN) 600 mg tablet Take 600 mg by mouth three times daily. HUMALOG 100 unit/mL injection 10-03-2020: insulin pump REVIEW OF SYSTEMS: Answers submitted by the patient for this visit: Review of Systems Heart Failure (Submitted on 01/14/2022) Fever : No Night Sweats: No Recent Unintentional Weight Change: No Vision Disturbance: No Hearing Loss: No A Cough: No Difficulty Breathing?: No Chest Pain: No Leg Swelling: No Skipping or irregular heartbeats?: No Feel like passing out?: No Black Tarry Stools: No Nausea: No Diarrhea: No Swelling in your abdomen?: No Fill up quickly when you eat?: No Difficulty Urinating?: No Joint Pain or Stiffness: No Muscle Aches: No A Rash: No Dizziness: No Headaches: No PHYSICAL EXAMINATION: VIDEO EXAM: (if completed, performed via video enabled technology) GENERAL: alert and appropriate, in no distress, well-hydrated, well nourished, and happy, smiling, interactive SKIN: no rash noted HEAD: normocephalic, no abnormality or lesion noted EYES: no injection and visual acuity is grossly normal EARS: hearing grossly normal NOSE: external nose normal without rhinorrhea PATIENT ENTERED QUESTIONNAIRE SCORES PHQ-9 01/14/2022 10/10/2021 07/14/2021 Score 1 0 0 PROMIS Global Health - (T-Scores - the mean of general population = 50. Five points is a clinicallymeaningful difference.) 01/14/2022 10/10/2021 05/10/2021 Physical T-Score 54.1 50.8 47.7 Mental T-Score 59 53.3 56 ASSESSMENT: NYHA Functional Class: III Stage: C heart failure Target weight: 232# Mr. Braxton is a 66 yoM with: 1. T1DM, diagnosed on 06/16/65, on insulin; A1c 6.2% per patient 2. CAD s/p STEMI and PCI 15 years ago 2005, [place] ([place]), July 2019 (chest pain two stents), no stent cards, performed by Dr. Benítez at [facility]. Stents were all to the LAD 3. Chronic systolic HFrEF 35%, ACC/AHA Stage C, NYHA II now 4. Dyslipidemia 5. CKD II Estimated Creatinine Clearance: 60.9 mL/min (A) (based on SCr of 1.49 mg/dL (H)). 6. Retinopathy s/p laser treatment 7. Neuropathy for last 25 years, can feel sensation above ankles. He lost two toes on the R foot 5 years ago. He has history of a R diabetic foot ulcer as well 8. Pleural effusion s/p pleurx before removed; previous biopsies of lung and pleura are negative for malignancy Mr. Braxton has demonstrated the longest period of stability since I've seen him. He has had no hospitalizations since establishing care with me in September 2020 but also, he has more energy, is doing more activity, and rates his quality of life dramatically better. His objective markers show stage C HF but symptomatically he is better than some of these suggest. His pVO2 was 11 at an RER of 1.19 but since that test he has been able to do much more than would besuggested. His CI was 2.3-2.5. His echo has an LVEF of 35%. His NT pro BNP is decreasing. We have optimized his GDMT to the best we can as higher doses of BB have led to LH/presyncope. Continue BB, AR NI, kaya, and diuretic - he cannot be on SGLT2i due to T1DM. For his known CAD I obtained a PET in 2020 which showed moderate ischemia in the LCx territory; however, given lack of angina, electrical instability, dyspnea or worsening HF symptoms, my sense is that we should treat his CAD medically. My sense of doing a PCI for LVEF improvement will have minimalyield, in the absence of above. Also given his diabetic kidney disease I would not want to subject him to contrast dye unnecessarily for no strong compelling indication at this time. I will ask for his C films from 2019 from [facility] to be uploaded here so we have a frame of reference. Continue asa, statin. PLAN (Active Outpatient Problems): As defined above Maintain current regimen of kaya 25, torsemide 40 mg daily, atorva 80 mg daily, 1/2 tab of ARNI 24/26 mg BID, metop XL 12.5 mg daily, asa 81 mg daily Follow up in 2 months with labs same day I personally spent 25 minutes in total time involved in the management and care of this patient. Debra Bond MD January 21, 2022 8:15 AM documented in this encounterOhio[facility] Miscellaneous Notes* Telephone Encounter - Frida Liao RN - 12/29/2021 10:14 AM EDT Outside labs received from 12/28. Scanned into Encover for review. Frida [id number] documented in this encounterOhiohealth [facility]10-17-2022 Miscellaneous Notes* Telephone Encounter - Sada Vargas RN - 12/28/2021 5:26 PM EDT Images from the original note were not included. Debra Bond MD You 3 minutes ago (5:22 PM) Take 1/2 tab of entresto BID Called pt back and updated him with instructions. Pt verbalized understanding of insstructions given. Sada Vargas RN December 28, 2021 5:28 PM * Telephone Encounter - Sada Vargas RN - 12/28/2021 5:13 PM EDT Called and spoke to the patient about his low BP's ranging 91/47, 101/56, 88/46, 117/52 and the lowest reading on 12/18/2021 65/39. He has decreased his torsemide to 40 mg daily, the evening dose was stopped as directed. Sada Vargas RN December 28, 2021 5:15 PM * Telephone Encounter - Frida Liao RN - 12/28/2021 11:18 AM EDT Received a call from pts Diabetes doctor in [place]. Pts BP today was 89/41 and the pt has been lightheaded for the past 3 weeks. Nurse relayed the following labs: BUN--29 Creatinine--1.28 Sodium--134 Creatinine ration--56 She will also fax labs over to [phone] Pt can be reached at [phone] Frida [id number] documented in this encounterOhiohealth O[facility]10-17-2022 Evaluation note* Encounter Date Diagnosis Assessment Notes Treatment Notes Treatment Clinical Notes Dec, Type 1 diabetes mellitus with diabetic neuropathy (ICD-10 - E10.40) About diabetes type 1 material was published 1. Controlled, Type 1 diabetes with A1c of 6.8% 2. Blood glucose levels according to pump/cgm download 12/14/2021-12/28/19 22 avgerage SG 141. >180-11%, 70-180-88%, <70-1%. Reviewed download with pt, infrequent incidence of hypoglcyemia. Overall glucose pattern stable. No changes to pump settings. 3. Patient is alert, oriented and receptive to making changes or counseling Notes: Seen for an assessment of current glucose pattern, changes in treatment plan, with this time spent in counseling and coordination of care related to diabetes, risks, and benefits of treatment, medications, and side effects. TOPICS REVIEWED: 1. Time was spent reviewing: a. Basic concepts of diabetes, progressive beta cell , concepts of basal/bolus/correc tive insulin requirements. Basal: The goal is fasting blood glucose of 90-130mg. If fasting blood glucose starts to run under 100mg 3x's/ week, decrease dose by 10%. Bolus: The goal is to hold the blood glucose level steady meal to meal. If pt. is going to have increased physical activity after a meal, decrease the schedule meal dose prior to the activity by 30-50%. If pt. skips a meal do not take this dose. Correction: The goal is to correct an elevated glucose back into the 100-150mg range b. Nutrition: Concepts of healthy diet reviewed, encouraged to decrease saturated fat in diet and increase non-starchy vegetables and fruits in diet. BMI: Pt. needs to select one small change to decrease caloric intake or increase physical activity to help decrease weight. c. Correct treatment of hypoglycemia, carry a glucose source at all times on your person, in vehicles, and at bedside. Can use glucose tablets/4, four ounces of pop or juice equal to 15 G of carbohydrate. Blood glucose should be 100 mg/dl or higher when driving. d. ADA glucose goals for age and medical complexity reviewed e. Patient questions addressed 2. Activity/exercise: Encouraged to start any form of physical activity. Start low level and increase slowly to a minimal goal of 150 minutes/week. Limit activity to what is allowed by other issues such as cardiac, pulmonary or orthopedic restrictions. 3. Standards of care: Reminded to have an annual dilated eye exam, A1C every 3 months, urine testing for microalbumin once/year, check feet daily and report any cuts or sores that do not appear to be healing. 4. Meter: Plan to check blood glucose: Please check blood glucose levels 10 times/day. Back to back meals reveal effectiveness of bolus dosing. 5. [facility]. Contact office if any issues or concerns with patterns of hypoglycemia, hyperglycemia, or diabetes medication issues. 6. Prescriptions: None needed. 7. Prescriptions will not be filled unless you are compliant with follow up appointments or have a follow up appointment scheduled as ordered by your provider. Refills should be requested at the time of your visit. 8. Notified CC Dr. Debra Bond office Dec, Insulin long-term use (ICD-10 - Z79.4) Dec, Dietary counseling and surveillance (ICD-10 - Z71.3) Eat well, exercise well, be well: dietary and fitness guidelines material was published Dec, HTN (hypertension) (ICD-10 - I10) High blood pressure material was published Dec, Hyperlipidemia LDL goal <100 (ICD-10 - E78.5) Managing your cholesterol material was published 01/02 LDL 60, on statin. Dec, Hypoglycemia due to type 1 diabetes mellitus (ICD-10 - E10.649) Diabetes and exercise material was published see above Dec, CKD (chronic kidney disease) (ICD-10 - N18.9) Dec, BMI 30.0-30.9,adult (ICD-10 - Z68.30) Deciphering the nutrition facts label material was published Dec, Insulin pump in place (ICD-10 - Z96.41) Tandem control iq insulin pump with dexcom g6 CGM:[place] 0.82 units/hr(TBI 19.68 units/day)ICR MN 1:7, 530 am 1:6, 11am 1:7ISF 1:35Active insulin time 5 hoursTarget: [place] 110 Dec, Other 11:25am Contact ed Dr. Debra Bond's office at [facility] [phone]. Spoke with Frida, office staff to inform Dr. Bond pt is here for an appointment with BP 89/41 and c/o light-headed for 3 weeks. Patient's most recent labs show BUN 29, CR 1.28, Creatine 56, and Na+ 134. Patient states he currently is taking Entresto 24-26mg po bid, Spironolactone 25mg po daily, Torsemide 20 mg x 2 po bid, Alfuzosin ER 10 mg po daily, and Metoprolol ER 25 mg 1/2 tab daily. Frida hill pt had contacted office 11/19/21 with similar concerns, was informed he could possibly be dehydrated and to drink planty of water and to decrease dosage of [place] 20 mg x2 po bid. Pt has an upcoming appointment scheduled with Dr. Bond on 01/21/22. Per Frida, she would provide the information to Dr. Bond. Requesting labs to be faxed to [phone]. Lab results faxed as requested. Office will call patient directly today with Dr. Bond's recommendation. Patient and Rimma LAMA updated. viavoo Other 09-19-2022 Hospital Discharge instructions Patient Education 11/30/2021 09:37:41 Prostate Cancer Prostate Cancer The prostate is a walnut-sized gland that is involved in the production of semen. It is located below a man's bladder, in front of the rectum. Prostate cancer is the abnormal growth of cells in the prostate gland. What are the causes? The exact cause of this condition is not known. What increases the risk? This condition is more likely to develop in men who: Are older than age 65. Are -[place]. Are obese. Have a family history of prostate cancer. Have a family history of breast cancer. What are the signs or symptoms? Symptoms of this condition include: A need to urinate often. Weak or interrupted flow of urine. Trouble starting or stopping urination. Inability to urinate. Pain or burning during urination. Painful ejaculation. Blood in urine or semen. Persistent pain or discomfort in the lower back, lower abdomen, hips, or upper thighs. Trouble getting an erection. Trouble emptying the bladder all the way. How is this diagnosed? This condition can be diagnosed with: A digital rectal exam. For this exam, a health care provider inserts a gloved finger into the rectum to feel the prostate gland. A blood test called a prostate-specific antigen (PSA) test. An imaging test called transrectal ultrasonography. A procedure in which a sample of tissue is taken from the prostate and examined under a microscope (prostate biopsy). Once the condition is diagnosed, tests will be done to determine how far the cancer has spread. This is called staging the cancer. Staging may involve imaging tests, such as: A bone scan. A CT scan. A PET scan. An MRI. The stages of prostate cancer are as follows: Stage I. At this stage, the cancer is found in the prostate only. The cancer is not visible on imaging tests and it is usually found by accident, such as during a prostate surgery. Stage II. At this stage, the cancer is more advanced than it is in stage I, but the cancer has not spread outside the prostate. Stage III. At this stage, the cancer has spread beyond the outer layer of the prostate to nearby tissues. The cancer may be found in the seminal vesicles, which are near the bladder and the prostate. Stage IV. At this stage, the cancer has spread other parts of the body, such as the lymph nodes, bones, bladder, rectum, liver, or lungs. How is this treated? Treatment for this condition depends on several factors, including the stage of the cancer, your age, personal preferences, and your overall health. Talk with your health care provider about treatment options that are recommended for you. Common treatments include: Observation for early stage prostate cancer (active surveillance). This involves having exams, blood tests, and in some cases, more biopsies. For some men, this is the only treatment needed. Surgery. Types of surgeries include: ?Open surgery. In this surgery, a larger incision is made to remove the prostate. ?A laparoscopic prostatectomy. This is a surgery to remove the prostate and lymph nodes through several, small incisions. It is often referred to as a minimally invasive surgery. ?A robotic prostatectomy. This is a surgery to remove the prostate and lymph nodes with the help ofa robotic arm that is controlled by a computer. ?Orchiectomy. This is a surgery to remove the testicles. ?Cryosurgery. This is a surgery to freeze and destroy cancer cells. Radiation treatment. Types of radiation treatment include: ?External beam radiation. This type aims beams of radiation from outside the body at the prostate to destroy cancerous cells. ?Brachytherapy. This type uses radioactive needles, seeds, wires, or tubes that are implanted into the prostate gland. Like external beam radiation, brachytherapy destroys cancerous cells. An advantage is that this type of radiation limits the damage to surrounding tissue and has fewer side effects. High-intensity, focused ultrasonography. This treatment destroys cancer cells by delivering high-energy ultrasound waves to the cancerous cells. Chemotherapy medicines. This treatment kills cancer cells or stops them from multiplying. Hormone treatment. This treatment involves taking medicines that act on one of the male hormones (testosterone): ?By stopping your body from producing testosterone. ?By blocking testosterone from reaching cancer cells. Follow these instructions at home: Take [id number] and prescription medicines only as told by your health care provider. Maintain a healthy diet. Get plenty of sleep. Consider joining a support group for men who have prostate cancer. Meeting with a support group mayhelp you learn to cope with the stress of having cancer. Keep all follow-up visits as told by your health care provider. This is important. If you have to go to the hospital, notify your cancer specialist (oncologist). Treatment for prostate cancer may affect sexual function. Continue to have intimate moments with your partner. This may include touching, holding, hugging, and caressing. Contact a health care provider if: You have trouble urinating. You have blood in your urine. You have pain in your hips, back, or chest. Get help right away if: You have weakness or numbness in your legs. You cannot control urination or your bowel movements (incontinence). You have trouble breathing. You have sudden chest pain. You have chills or a fever. Summary The prostate is a walnut-sized gland that is involved in the production of semen. It is located below a man's bladder, in front of the rectum. Prostate cancer is the abnormal growth of cells in the prostate gland. Treatment for this condition depends on several factors, including the stage of the cancer, your age, personal preferences, and your overall health. Talk with your health care provider about treatment options that are recommended for you. Consider joining a support group for men who have prostate cancer. Meeting with a support group mayhelp you learn to cope with the stress of having cancer. This information is not intended to replace advice given to you by your health care provider. Make sure you discuss any questions you have with your health care provider. Document Released: 02/28/2006 Document Revised: 02/10/2018 Document Reviewed: 11/08/2016 [employer] ([place] Patient Education [employer]. Follow Up Care 11/24/2020 15:33:36 With:SHLOMO LAKHANI, Xiang Perry, URL Address: [address] [place] [address]- When:1 year Comments:w/ [facility] [id number] Instructions* Patient Instructions* Debra Bond MD - 10/16/2021 10:41 AM EDT Great job keeping yourself healthy. Labwork today in J1-4. See me virtually in 3 months time. documented in this encounterOhio[facility] History of Present illness Narrative* Debra Bond MD - 10/16/2021 10:11 AM EDT Images from the original note were not included. Heart and Vascular [place] [facility] SECTION OF HEART FAILURE and CARDIAC TRANSPLANT MEDICINE OUTPATIENT VISIT DATE October 16, 2021 OUTPATIENT VISIT TYPE Established Patient PRIMARY CARE PHYSICIAN: Epifanio Montelongo ([facility]) [address] [place] [address] CHIEF COMPLAINT: Follow-up NURSING INTAKE (Patient s concerns and/or recent hospitalizations/ER visits): HF Nursing Assessment: Interim Hospitalizations and/or ER visits: Chest Pain: no Skipping or irregular heartbeats: no Shortness of breath at rest: no Shortness of breath with activity: no Cough: no Waking up in the middle of the night gasping for air: no Lightheadedness or dizziness: yes every now and then, no real reason when it happens- comes and goes Feeling like you are going to pass out: no Actually passing out: no Poor energy level: been improving Unintentional weight gain: no Unintentional weight loss: no Swelling in your legs,feet, abdomen: no Filling up quickly when you eat: no HISTORY OF PRESENT ILLNESS: NYHA Functional Class: III Stage: C heart failure Target weight: 232# Mr. Braxton is a 66 yoM with: 1. T1DM, diagnosed on 06/16/65, on insulin; A1c 6.3% last in July 2020 per patient 2. CAD s/p STEMI and PCI 15 years ago 2005, 2011 ([place]), July 2019 (chest pain two stents), no stent cards, performed by Dr. Benítez at [facility]. Stents were all to the LAD 3. Chronic systolic HFrEF 35%, ACC/AHA Stage C, NYHA III 4. Dyslipidemia 5. CKD II Estimated Creatinine Clearance: 60.9 mL/min (A) (based on SCr of 1.49 mg/dL (H)). 6. Retinopathy s/p laser treatment 7. Neuropathy for last 25 years, can feel sensation above ankles. He lost two toes on the R foot 5 years ago. He has history of a R diabetic foot ulcer as well 8. Pleural effusion s/p pleurx before removed; previous biopsies of lung and pleura are negative for malignancy Mr. Braxton was last seen by me on 07/16/21. At that visit I restarted metoprolol XL 12.5 mg once aday; with carvedilol or higher doses of XL he would have presyncope or lightheadedness. He had a metabolic stress that I ordered with a peak VO2 of 11 at an RER of 1.19; previous staging studies of HF showed a RHC with CI of 2.3 by TD and 2.5 by aFick. Since then he feels great. He feels his energy is a lot better since we first met in September 2020. He is 100% better, and rates his QOL 9/10 (10 being the highest). His A1c is 6.2%. He is biking up to7-8 miles a day, has done as much as 20 miles. BP and weight have the longest period of stability I've seen for him; 232#, BP 103/51, HR 78-86, and this dates back since our last visit together. He is spending time outdoors, vacationing. PAST MEDICAL HISTORY Diagnosis Date Amputated toe (HCC) right Broken fingers multiple CAD (coronary artery disease) Diabetes mellitus (HCC) insulin pump Fracture, skull (HCC) Heart attack (HCC) 2016 High cholesterol Hypertension Prostate cancer (HCC) Seeds and XRT Stroke (HCC) behind my eyes no residual Type 1 diabetes (HCC) 06[birth year]16[birth year]1965 PAST SURGICAL HISTORY Procedure Laterality Date AMPUTATION METATARSAL+TOE,SINGLE Right 2 toes right foot CC PCI CORONARY INTERVENT 2004 x1, 2016 x 2, July 2019 x 2 LUNG SURGERY HX Left 05/2020 Recurrent pleural effusion SOCIAL HISTORY Social History Tobacco Use Smoking status: Current Some Day Smoker Types: Cigars Smokeless tobacco: Never Used Tobacco comment: very rare cigar (one so far in 2020) Vaping Use Vaping Use: Never used Substance Use Topics Alcohol use: Yes Comment: rare glass of scotch Drug use: Never FAMILY HISTORY Problem Relation Age of Onset Heart Failure Mother Alzheimer's Disease Mother at age 81 Prostate Cancer Father at age 77 No Known Problems Sister Prostate Cancer Brother No Known Problems Brother No Known Problems Brother No Known Problems Son No Known Problems Son No Known Problems Daughter ALLERGIES: ALLERGIES Allergen Reactions Iodine Other: See Comments Iv Dye [Iodinated C* Hives Pentazocine Anaphylaxis Other reaction(s): FLU-LIKE SYMPTOMS Other reaction(s): FLU-LIKE SYMPTOMS Talwin Compound Other: See Comments CURRENT MEDICATIONS: ENTRESTO 24-26 mg tablet TAKE 1 TABLET BY MOUTH TWICE A DAY metoprolol succinate ER (TOPROL XL) 25 mg 24 hr tablet Take 0.5 tablets by mouth once daily. torsemide (DEMADEX) 20 mg tablet Take 2 tablets by mouth twice daily. spironolactone (ALDACTONE) 25 mg tablet Take 1 tablet by mouth once daily. alfuzosin SR (UROXATRAL) 10 mg 24 hr tablet Take 10 mg by mouth once daily. aspirin, enteric coated (ASPIRIN, ENTERIC COATED) 81 mg EC tablet Take 81 mg by mouth once daily. atorvastatin (LIPITOR) 80 mg tablet Take 80 mg by mouth daily at bedtime. gabapentin (NEURONTIN) 600 mg tablet Take 600 mg by mouth three times daily. HUMALOG 100 unit/mL injection 10-03-2020: insulin pump REVIEW OF SYSTEMS: CONSTITUTION: Negative for: Fever, Night sweats and Recent weight change HEENT: Negative for: Hearing loss RESPIRATORY: Negative for: Cough and Difficulty breathing GASTROINTESTINAL: Negative for: Melena, Nausea, Diarrhea, Abdominal distention and Early satiety MUSCULOSKELETAL: Positive for: Myalgias Negative for: Arthralgias NEUROLOGICAL: Positive for: Dizziness Negative for: Headaches SKIN: Negative for: Rash EYES: Negative for: Visual disturbance CARDIOVASCULAR: Negative for: Chest pain, Leg swelling, Arrhythmia and Pre-syncope GENITOURINARY: Negative for: Difficulty urinating PATIENT ENTERED DATA: KCCQ-12 Scores 05/10/2021 07/14/2021 10/10/2021 Physical Limitation Score 75 (Class II Heart Failure ) 66.67 (Class II Heart Failure ) 75 (Class IIHeart Failure ) Symptom Frequency Score 64.58 (Class II Heart Failure ) 72.92 (Class II Heart Failure ) 72.92 (Class II Heart Failure ) Quality of Life Score 75 (Class II Heart Failure ) 50 (Class III Heart Failure) 87.5 (Class I HeartFailure) Social Limitation Score 66.67 (Class II Heart Failure) 66.67 (Class II Heart Failure) 83.33 (Class II Heart Failure) Overall Summary Score 70.31 (Class II Heart Failure ) 64.07 (Class II Heart Failure ) 79.69 (Class II Heart Failure ) PHQ-9 05/10/2021 07/14/2021 10/10/2021 Score 2 0 0 PROMIS Global Health - (T-Scores - the mean of general population = 50. Five points is a clinicallymeaningful difference.) 02/23/2021 05/10/2021 10/10/2021 Physical T-Score 39.8 47.7 50.8 Mental T-Score 53.3 56 53.3 PHYSICAL EXAMINATION: BP 105/55 Pulse 65 Ht 185.4 cm (6' 1 ) Wt 107 kg (236 lb) SpO2 98% BMI 31.14 kg/m General: Well appearing, in no acute distress. Skin: No clubbing, no cyanosis. Eyes: Extra ocular movements intact Oropharynx: Teeth in good repair. Neck: No jugular venous distention, no carotid bruits, carotids have a normal upstroke, no palpablethyromegaly. Lungs: Clear to auscultation bilaterally, no wheezing or rhonchi. Heart: Regular rhythm, PMI not displaced, S1, S2 normal, no S3, no S4, no heaves, no rub and no murmur. Abdomen: Soft, nontender, bowel sounds normal, no palpable organomegaly, no bruits. Extremities: No peripheral edema . Grade 2/4 distal pulses bilaterally. Neuro: Oriented to person, place and time, alert, cooperative, gait coordinated. CARDIOVASCULAR MEDICINE TESTING: I have personally reviewed the Laboratory Testing, Echocardiogram, Stress Test: Positron Emission Tomography (PET), metabolic stress, and Cardiac Catheterization/Percutaneous Coronary Intervention (PCI). Last ECHO Result Conclusion ECHO Collected: 02/25/2021 2:28 PM (Final result) Impression: CONCLUSIONS: - Technically difficult exam due to body habitus. - Exam indication: Evaluation of known heart failure to guide therapy - The left ventricle is severely dilated. Left ventricular systolic function is moderately decreased. EF = 35 5% (visual est.). Grade II left ventricular diastolic dysfunction. - The right ventricle is dilated. Right ventricular systolic function is moderately decreased. - There is a small circumferential pericardial effusion adjacent to the left ventricle and a moderate pericardial effusion adjacent to the right atrium. The inferior vena cava appears dilated measuring 2.3 cm. The vessel decreases less than 50 percent with inspiration. - Estimated right ventricular systolic pressure is not reported due to an insufficient tricuspid regurgitation signal. Estimated right atrial pressure is 15 mmHg based on IVC assessment. - The patient has not had a prior CC echocardiographic exam for comparison. * * * Final * * * Complete Results Component Latest Ref Rng & Units 10/03/2020 10/23/2020 01/16/2021 05/14/2021 07/16/2021 Protein, Total 6.3 - 8.0 g/dL 7.1 6.5 6.5 6.8 Albumin 3.9 - 4.9 g/dL 3.6 (L) 3.6 (L) 3.9 3.8 (L) Calcium 8.5 - 10.2 mg/dL 9.2 9.0 8.8 8.9 9.3 Bilirubin, Total 0.2 - 1.3 mg/dL 1.1 0.7 0.8 0.6 Alkaline Phosphatase 38 - 113 U/L 91 84 54 94 AST 14 - 40 U/L 25 34 19 20 Glucose 74 - 99 mg/dL 171 (H) 201 (H) 55 (L) 51 (L) 129 (H) BUN 9 - 24 mg/dL 27 (H) 22 39 (H) 51 (H) 45 (H) Creatinine 0.73 - 1.22 mg/dL 1.05 0.96 1.46 (H) 1.67 (H) 1.49 (H) Sodium 136 - 144 mmol/L 122 (L) 133 (L) 139 137 136 Potassium 3.7 - 5.1 mmol/L 3.6 (L) 4.0 4.3 4.6 4.6 Chloride 97 - 105 mmol/L 77 (L) 89 (L) 98 96 (L) 96 (L) CO2 22 - 30 mmol/L 35 (H) 36 (H) 34 (H) 31 (H) 33 (H) Anion Gap 9 - 18 mmol/L 10 8 (L) 7 (L) 10 7 (L) ALT 10 - 54 U/L 16 27 11 11 eGFR- >60 >60 58 eGFR-All Other Races . >60 >60 48 eGFR >=60 mL/min/1.73m 45 (L) 51 (L) NT Pro BNP <125 pg/mL 5,521 (H) 8,233 (H) 3,772 (H) 2,875 (H) 2,712 (H) 07/16/21 Met Stress Metabolic Exercise Test Report: MET Machine #1, (Cycle) DATA SUMMARY Peak RER: 1.19 Peak WR: 49% predicted Peak VO2: 51% of predicted (11.0 ml/kg/min) AT: 41% of predicted peak VO2 Peak BP: 98/52 Peak HR: 79% of predicted CI: 1.33 Peak VO2/HR: 64% of predicted VO2/WR slope: 4.3 ml/min/archibald Peak SpO2: 97% Peak VE: 36% of predicted Peak RR: 38 br/min Peak PETCO2: 37 mmHg VE/VCO2 slope: 30.3 EOV: Mild Limiting symptom: Fatigue INTERPRETATION EXERCISE PERFORMANCE: Moderately abnormal exercise power. Maximal aerobic effort. Moderately abnormal aerobic capacity. Abnormal aerobic efficiency. Abnormal circulatory limitation pattern. CARDIOVASCULAR RESPONSE: Blunted blood pressure response. Blunted heart rate response. Abnormal chronotropic index. Abnormal stroke volume response. No clinically significant arrhythmias. No stress-induced ischemia. PULMONARY RESPONSE: No oxygen desaturation. Normal ventilatory reserve. Normal ventilatory pattern.Mildly abnormal. Mild exercise oscillatory ventilation. SUMMARY: Below average exercise capacity based upon peak VO2 obtained due to cardiopulmonary limitation. Blunted oxygen pulse, cannot exclude impaired stroke volume reserve, and blunted chronotropic response. Suspect underlying relative cardiac deconditioning as well. NM PET Viability 10/23/20 CONCLUSIONS: 1. PET Perfusion Study: Abnormal. 2. No evidence of scarred myocardium. 3. There is moderate (10-20%) ischemia in the territory of the LCX. 4. There is mild (<10%) ischemia in the territory of the RCA. 5. There is a small area of hibernating myocardium in the LAD. 6. There is a medium (10-20%) area of hibernating myocardium in the LCX. 7. Left ventricle is moderately dilated. The left ventricle systolic function is severely decreased. 8. Right ventricle is severely dilated. The right ventricle systolic function is severely decreased. 9. This is a high risk scan. Gated Stress TOF:SC:CTAC LVEF % 29 RHC 10/23/20 Access Site: [facility] Size:7fr [place] Size:7fr BP: 110 / 62 BP Mean: 78 HR: 70 min 2.00 l/min Pulse Ox: 100.00% Thermo CO: 5.13 l/min H.8 Thermo CI: 2.32 l/min/m2 TP RA Mean: 12 Assumed Krishan CO: 5.46 l/min PVR: 4 RV: 65 / 12 Assumed Krishan CI: 2.47 l/min/m2 PVRI: 8.5 PA: 65 / 30 SVR: 1029.0 PA Mean: 41.67 PCWP Mean: 22.0 SV: 73.29 cc/stroke SVI: 33.13 cc/stroke/m2 TS Art Sat: 100.00% PAO2: 65.50% LVSWI: 25.23 gm-m/m2/beat RVSWI: 13.37 gm-m/m2/beat RVSWI: 982.99 mmHg-ml/m2/beat IMPRESSION: NYHA Functional Class: III Stage: C heart failure Target weight: 232# Mr. Braxton is a 66 yoM with: 1. T1DM, diagnosed on 06/16/65, on insulin; A1c 6.2% per patient 2. CAD s/p STEMI and PCI 15 years ago 2005, 2011 ([place]), July 2019 (chest pain two stents), no stent cards, performed by Dr. Benítez at [facility]. Stents were all to the LAD 3. Chronic systolic HFrEF 35%, ACC/AHA Stage C, NYHA II now 4. Dyslipidemia 5. CKD II Estimated Creatinine Clearance: 60.9 mL/min (A) (based on SCr of 1.49 mg/dL (H)). 6. Retinopathy s/p laser treatment 7. Neuropathy for last 25 years, can feel sensation above ankles. He lost two toes on the R foot 5 years ago. He has history of a R diabetic foot ulcer as well 8. Pleural effusion s/p pleurx before removed; previous biopsies of lung and pleura are negative for malignancy Mr. Braxton has demonstrated the longest period of stability since I've seen him. He has had no hospitalizations since establishing care with me in September 2020 but also, he has more energy, is doing more activity, and rates his quality of life dramatically better. His objective markers show stage C HF but symptomatically he is better than some of these suggest. His pVO2 was 11 at an RER of 1.19 but since that test he has been able to do much more than would besuggested. His CI was 2.3-2.5. His echo has an LVEF of 35%. His NT pro BNP is decreasing. We have optimized his GDMT to the best we can as higher doses of BB have led to LH/presyncope. Continue BB, AR NI, kaya, and diuretic - he cannot be on SGLT2i due to T1DM. For his known CAD I obtained a PET in 2020 which showed moderate ischemia in the LCx territory; however, given lack of angina, electrical instability, dyspnea or worsening HF symptoms, my sense is that we should treat his CAD medically. My sense of doing a PCI for LVEF improvement will have minimalyield, in the absence of above. Also given his diabetic kidney disease I would not want to subject him to contrast dye unnecessarily for no strong compelling indication at this time. I will ask for his [facility] films from 2019 from [facility] to be uploaded here so we have a frame of reference. Continue asa, statin. Heart Failure specific medications (list current, note updates or changes, note prior intolerance): BB: Metop XL 12.5 mg once a day ACEI/ARB/ARNI: ARNI 24/26 mg BID MRA: [place] 25 mg daily SGLT2: None due to T1DM Diuretic: Torsemide 40 mg BID Digoxin: none Vasodilators: none Anti-arrhythmics: none Ivabradine: none Other anti-HTN: none PLAN AND RECOMMENDATIONS: 1. Labs today 2. 3 month virtual; echo in the Spring 3. [facility] films from [facility] from July 2019 I personally interviewed, confirmed and edited the above information as obtained by others I personally spent 40 minutes in total time involved in the management and care of this patient. Wediscussed natural history of disease, current treatment options, and future potential treatment options. We discussed diet, exercise, other non-medical management as above. Debra Bond MD, [facility] Section Of Heart Failure and Cardiac Transplant Medicine Heart and Vascular [place] [facility] Desk J3-[address] [place] [address] documented in this encounterOhio[facility]03-10-2022 Evaluation note* Encounter Date Diagnosis Assessment Notes Treatment Notes Treatment Clinical Notes May, Type 1 diabetes mellitus with diabetic neuropathy (ICD-10 - E10.40) About diabetes type 1 material was published 1. Controlled, Type 1 diabetes with A1c of 6.2% 2. Blood glucose levels according to pump/cgm download 05/05/2021-05/18/2021 avgerage SG 128. >180-10%, 70-180-86%, <70-4%, <54-0%. Reviewed download with pt, total basal dose 20.97 units/day, noted several readings under target after meal bolus. Will modify basal/icr settings- see below. Reviewed with pt how to use gvoke for hypoglycemia with demonstration pen. 3. Patient is alert, oriented and receptive to making changes or counseling Notes: Seen for an assessment of current glucose pattern, changes in treatment plan, with this time spent in counseling and coordination of care related to diabetes, risks, and benefits of treatment, medications, and side effects. TOPICS REVIEWED: 1. Time was spent reviewing: a. Basic concepts of diabetes, progressive beta cell , concepts of basal/bolus/correc tive insulin requirements. Basal: The goal is fasting blood glucose of 90-130mg. If fasting blood glucose starts to run under 100mg 3x's/ week, decrease dose by 10%. Bolus: The goal is to hold the blood glucose level steady meal to meal. If pt. is going to have increased physical activity after a meal, decrease the schedule meal dose prior to the activity by 30-50%. If pt. skips a meal do not take this dose. Correction: The goal is to correct an elevated glucose back into the 100-150mg range b. Nutrition: Concepts of healthy diet reviewed, encouraged to decrease saturated fat in diet and increase non-starchy vegetables and fruits in diet. BMI: Pt. needs to select one small change to decrease caloric intake or increase physical activity to help decrease weight. c. Correct treatment of hypoglycemia, carry a glucose source at all times on your person, in vehicles, and at bedside. Can use glucose tablets/4, four ounces of pop or juice equal to 15 G of carbohydrate. Blood glucose should be 100 mg/dl or higher when driving. d. ADA glucose goals for age and medical complexity reviewed e. Patient questions addressed 2. Activity/exercise: Encouraged to start any form of physical activity. Start low level and increase slowly to a minimal goal of 150 minutes/week. Limit activity to what is allowed by other issues such as cardiac, pulmonary or orthopedic restrictions. 3. Standards of care: Reminded to have an annual dilated eye exam, A1C every 3 months, urine testing for microalbumin once/year, check feet daily and report any cuts or sores that do not appear to be healing. 4. Meter: Plan to check blood glucose: Please check blood glucose levels 10 times/day. Back to back meals reveal effectiveness of bolus dosing. 5. [facility]. Contact office if any issues or concerns with patterns of hypoglycemia, hyperglycemia, or diabetes medication issues. 6. Prescriptions: [facility] 7. Keep f/u with Dr. Vasquez May, Insulin long-term use (ICD-10 - Z79.4) May, Dietary counseling and surveillance (ICD-10 - Z71.3) Eat well, exercise well, be well: dietary and fitness guidelines material was published May, HTN (hypertension) (ICD-10 - I10) High blood pressure material was published May, Hyperlipidemia LDL goal <100 (ICD-10 - E78.5) Managing your cholesterol material was published 11/01 LDL 82, on statin. May, Hypoglycemia due to type 1 diabetes mellitus (ICD-10 - E10.649) Diabetes and exercise material was published see above May, Insulin pump titration (ICD-10 - Z46.81) Tandem control iq insulin pump with dexcom g6 CGM:MN 1 changed to 0.875 units/hr(TBI 21 units/day)ICR MN 1:7, 530 am 1:5.7 changed to 6, 11am 1:6.6 changed to 1:7ISF 1:35Active insulin time 5 hoursTarget: MN 110 May, BMI 32.0-32.9,adult (ICD-10 - Z68.32) Deciphering the nutrition facts label material was published [employer] Other 03-03-2022 History of Past illness Narrative* Problem Noted Date Resolved Date Type 2 diabetes mellitus without complication 07/16/2021 Polyneuropathy due to type 2 diabetes mellitus 0 05/14/2021 07/16/2021 documented as of this encounter (statuses as of 09/23/2021) [facility]03-03-[facility] History of Past illness Narrative* Problem Noted Date Resolved Date Skin ulcer of second toe of left foot with fat l rachelle exposed 05/14/2021 10/16/2021 Ulcer of toe, right, with unspecified severity 0 05/14/2021 10/16/2021 Type 2 diabetes mellitus without complication 07/16/2021 Polyneuropathy due to type 2 diabetes mellitus 0 05/14/2021 07/16/2021 Diabetic foot ulcer associated with type 1 diabe saud mellitus 05/14/2021 10/16/2021 Perforating ulcer of the foot 01/16/2021 Disorder of nervous system due to type 2 diabete s mellitus 12/05/2013 10/16/2021 documented as of this encounter (statuses as of 10/16/2021) [facility] History of Past illness Narrative* Problem Noted Date Resolved Date Skin ulcer of second toe of left foot with fat l rachelle exposed 05/14/2021 10/16/2021 Ulcer of toe, right, with unspecified severity 0 05/14/2021 10/16/2021 Type 2 diabetes mellitus without complication 07/16/2021 Polyneuropathy due to type 2 diabetes mellitus 0 05/14/2021 07/16/2021 Diabetic foot ulcer associated with type 1 diabe saud mellitus 05/14/2021 10/16/2021 Perforating ulcer of the foot 01/16/2021 Disorder of nervous system due to type 2 diabete s mellitus 12/05/2013 10/16/2021 documented as of this encounter (statuses as of 12/28/2021) [facility]22 History of Past illness Narrative* Problem Noted Date Resolved Date Skin ulcer of second toe of left foot with fat l rachelle exposed 05/14/2021 10/16/2021 Ulcer of toe, right, with unspecified severity 0 05/14/2021 10/16/2021 Type 2 diabetes mellitus without complication 07/16/2021 Polyneuropathy due to type 2 diabetes mellitus 0 05/14/2021 07/16/2021 Diabetic foot ulcer associated with type 1 diabe saud mellitus 05/14/2021 10/16/2021 Perforating ulcer of the foot 01/16/2021 Disorder of nervous system due to type 2 diabete s mellitus 12/05/2013 10/16/2021 documented as of this encounter (statuses as of 12/29/2021) [facility] History of Past illness Narrative* Problem Noted Date Resolved Date Skin ulcer of second toe of left foot with fat l rachelle exposed 05/14/2021 10/16/2021 Ulcer of toe, right, with unspecified severity 0 05/14/2021 10/16/2021 Type 2 diabetes mellitus without complication 07/16/2021 Polyneuropathy due to type 2 diabetes mellitus 0 05/14/2021 07/16/2021 Diabetic foot ulcer associated with type 1 diabe saud mellitus 05/14/2021 10/16/2021 Perforating ulcer of the foot 01/16/2021 Disorder of nervous system due to type 2 diabete s mellitus 12/05/2013 10/16/2021 documented as of this encounter (statuses as of 02/22/2022) [facility] History of Past illness Narrative* Problem Noted Date Resolved Date Skin ulcer of second toe of left foot with fat l rachelle exposed 05/14/2021 10/16/2021 Ulcer of toe, right, with unspecified severity 0 05/14/2021 10/16/2021 Type 2 diabetes mellitus without complication 07/16/2021 Polyneuropathy due to type 2 diabetes mellitus 0 05/14/2021 07/16/2021 Diabetic foot ulcer associated with type 1 diabe saud mellitus 05/14/2021 10/16/2021 Perforating ulcer of the foot 01/16/2021 Disorder of nervous system due to type 2 diabete s mellitus 12/05/2013 10/16/2021 documented as of this encounter (statuses as of 02/26/2022) [facility] History of Past illness Narrative* Problem Noted Date Resolved Date Skin ulcer of second toe of left foot with fat l rachelle exposed 05/14/2021 10/16/2021 Ulcer of toe, right, with unspecified severity 0 05/14/2021 10/16/2021 Type 2 diabetes mellitus without complication 07/16/2021 Polyneuropathy due to type 2 diabetes mellitus 0 05/14/2021 07/16/2021 Diabetic foot ulcer associated with type 1 diabe saud mellitus 05/14/2021 10/16/2021 Perforating ulcer of the foot 01/16/2021 Disorder of nervous system due to type 2 diabete s mellitus 12/05/2013 10/16/2021 Crystalline deposits in vitreous 12/05/2013 03/26/2022 documented as of this encounter (statuses as of 08/19/2022) [facility] History of Past illness Narrative* Problem Noted Date Diagnosed Date Resolved Date Skin ulcer of second toe of left foot with fat layer exposed 05/14/2021 10/16/2021 Ulcer of toe, right, with un specified severity 05/14/2021 10/16/2021 Type 2 diabetes mellitus without complication 05/15/1907/16/2021 Polyneuropathy due to type 2 diabetes mellitus 05/14/2021 07/16/2021 Diabetic foot ulcer associat ed with type 1 diabetes mellitus 05/14/2021 10/16/2021 Perforating ulcer of the foot 01/16/2021 10/16/2021 Disorder of nervous system d ue to type 2 diabetes mellitus 12/05/2013 10/16/2021 Crystalline deposits in vitreous 12/05/2013 03/26/2022 documented as of this encounter (statuses as of 09/22/2022) [facility] History of Past illness Narrative* Problem Noted Date Diagnosed Date Resolved Date Skin ulcer of second toe of left foot with fat layer exposed 05/14/2021 10/16/2021 Ulcer of toe, right, with un specified severity 05/14/2021 10/16/2021 Type 2 diabetes mellitus without complication 05/15/1907/16/2021 Polyneuropathy due to type 2 diabetes mellitus 05/14/2021 07/16/2021 Diabetic foot ulcer associat ed with type 1 diabetes mellitus 05/14/2021 10/16/2021 Perforating ulcer of the foot 01/16/2021 10/16/2021 Disorder of nervous system d ue to type 2 diabetes mellitus 12/05/2013 10/16/2021 Crystalline deposits in vitreous 12/05/2013 03/26/2022 documented as of this encounter (statuses as of 10/11/2022) [facility] History of Past illness Narrative* Problem Noted Date Diagnosed Date Resolved Date Skin ulcer of second toe of left foot with fat layer exposed 05/14/2021 10/16/2021 Ulcer of toe, right, with un specified severity 05/14/2021 10/16/2021 Type 2 diabetes mellitus without complication 05/15/1907/16/2021 Polyneuropathy due to type 2 diabetes mellitus 05/14/2021 07/16/2021 Diabetic foot ulcer associat ed with type 1 diabetes mellitus 05/14/2021 10/16/2021 Perforating ulcer of the foot 01/16/2021 10/16/2021 Disorder of nervous system d ue to type 2 diabetes mellitus 12/05/2013 10/16/2021 Crystalline deposits in vitreous 12/05/2013 03/26/2022 documented as of this encounter (statuses as of 10/12/2022) [facility] History of Past illness Narrative* Problem Noted Date Diagnosed Date Resolved Date Skin ulcer of second toe of left foot with fat layer exposed 05/14/2021 10/16/2021 Ulcer of toe, right, with un specified severity 05/14/2021 10/16/2021 Type 2 diabetes mellitus without complication 05/15/1907/16/2021 Polyneuropathy due to type 2 diabetes mellitus 05/14/2021 07/16/2021 Diabetic foot ulcer associat ed with type 1 diabetes mellitus 05/14/2021 10/16/2021 Perforating ulcer of the foot 01/16/2021 10/16/2021 Disorder of nervous system d ue to type 2 diabetes mellitus 12/05/2013 10/16/2021 Crystalline deposits in vitreous 12/05/2013 03/26/2022 documented as of this encounter (statuses as of 01/11/2023) [facility] History of Past illness Narrative* Problem Noted Date Diagnosed Date Resolved Date Skin ulcer of second toe of left foot with fat layer exposed 05/14/2021 10/16/2021 Ulcer of toe, right, with un specified severity 05/14/2021 10/16/2021 Type 2 diabetes mellitus without complication 05/15/1907/16/2021 Polyneuropathy due to type 2 diabetes mellitus 05/14/2021 07/16/2021 Diabetic foot ulcer associat ed with type 1 diabetes mellitus 05/14/2021 10/16/2021 Perforating ulcer of the foot 01/16/2021 10/16/2021 Disorder of nervous system d ue to type 2 diabetes mellitus ([facility]) 12/05/2013 10/16/2021 Crystalline deposits in vitreous 12/05/2013 03/26/2022 documented as of this encounter (statuses as of 01/12/2023) [facility] History of Past illness Narrative* Problem Noted Date Diagnosed Date Resolved Date Skin ulcer of second toe of left foot with fat layer exposed 05/14/2021 10/16/2021 Ulcer of toe, right, with un specified severity 05/14/2021 10/16/2021 Type 2 diabetes mellitus without complication 05/15/1907/16/2021 Polyneuropathy due to type 2 diabetes mellitus 05/14/2021 07/16/2021 Diabetic foot ulcer associat ed with type 1 diabetes mellitus 05/14/2021 10/16/2021 Perforating ulcer of the foot 01/16/2021 10/16/2021 Disorder of nervous system d ue to type 2 diabetes mellitus ([facility]) 12/05/2013 10/16/2021 Crystalline deposits in vitreous 12/05/2013 03/26/2022 documented as of this encounter (statuses as of 03/04/2023) [facility]21 Evaluation note* Encounter Date Diagnosis Assessment Notes Treatment Notes Treatment Clinical Notes Feb, Type 1 diabetes mellitus with diabetic neuropathy (ICD-10 - E10.40) About diabetes type 1 material was published 1. Controlled, Type 1 diabetes with A1c of 6% 2. Blood glucose levels according to pump/cgm download 10/16/2020-10/29/2020 avgerage SG 137. >250-4%, >180-9%, 70-180-86%, <70-1%, <54-0%. Reviewed download with pt, basal dose 20.93 units/day. Noted several reading postprandial <100, will modify basal/icr settings, see below. 3. Patient is alert, oriented and receptive to making changes or counseling Notes: Seen for an assessment of current glucose pattern, changes in treatment plan, with this time spent in counseling and coordination of care related to diabetes, risks, and benefits of treatment, medications, and side effects. TOPICS REVIEWED: 1. Time was spent reviewing: a. Basic concepts of diabetes, progressive beta cell , concepts of basal/bolus/correc tive insulin requirements. Basal: The goal is fasting blood glucose of 90-130mg. If fasting blood glucose starts to run under 100mg 3x's/ week, decrease dose by 10%. Bolus: The goal is to hold the blood glucose level steady meal to meal. If pt. is going to have increased physical activity after a meal, decrease the schedule meal dose prior to the activity by 30-50%. If pt. skips a meal do not take this dose. Correction: The goal is to correct an elevated glucose back into the 100-150mg range b. Nutrition: Concepts of healthy diet reviewed, encouraged to decrease saturated fat in diet and increase non-starchy vegetables and fruits in diet. BMI: Pt. needs to select one small change to decrease caloric intake or increase physical activity to help decrease weight. c. Correct treatment of hypoglycemia, carry a glucose source at all times on your person, in vehicles, and at bedside. Can use glucose tablets/4, four ounces of pop or juice equal to 15 G of carbohydrate. Blood glucose should be 100 mg/dl or higher when driving. d. ADA glucose goals for age and medical complexity reviewed e. Patient questions addressed 2. Activity/exercise: Encouraged to start any form of physical activity. Start low level and increase slowly to a minimal goal of 150 minutes/week. Limit activity to what is allowed by other issues such as cardiac, pulmonary or orthopedic restrictions. 3. Standards of care: Reminded to have an annual dilated eye exam, A1C every 3 months, urine testing for microalbumin once/year, check feet daily and report any cuts or sores that do not appear to be healing. 4. Meter: Plan to check blood glucose: Please check blood glucose levels 10 times/day. Back to back meals reveal effectiveness of bolus dosing. 5. [facility]. Contact office if any issues or concerns with patterns of hypoglycemia, hyperglycemia, or diabetes medication issues. 6. Prescriptions: Humalog sent to [facility]. Sample dexcom g6 transmitter/sensor given today 7. Went to [employer] website and played video on removal resevoir. Pt is agreeable to coming into office and bringing new resevoir and set up apt with Jonn Gimenez to troubleshoot. Will have technical systems architect reach out to pt. 8. Keep f/u with Dr. Vasquez Feb, Insulin long-term use (ICD-10 - Z79.4) Feb, Dietary counseling and surveillance (ICD-10 - Z71.3) Eat well, exercise well, be well: dietary and fitness guidelines material was published Feb, HTN (hypertension) (ICD-10 - I10) High blood pressure material was published Feb, Hyperlipidemia LDL goal <100 (ICD-10 - E78.5) Managing your cholesterol material was published 11/01 LDL 82, on statin. Feb, Hypoglycemia due to type 1 diabetes mellitus (ICD-10 - E10.649) Diabetes and exercise material was published see above Feb, Insulin pump titration (ICD-10 - Z46.81) Tandem control iq insulin pump with dexcom g6 CGM:MN 1 changed to 0.9 units/hr(TBI 21.6 units/day)ICR MN 1:7, 530 am 1:5.2 changed to 5.7, 11am 1:6.3 changed to 6.6ISF 1:35Active insulin time 5 hoursTarget: MN 110 Feb, BMI 31.0-31.9,adult (ICD-10 - Z68.31) Deciphering the nutrition facts label material was published [employer] Other 10-28-2021 Evaluation note* Encounter Date Diagnosis Assessment Notes Treatment Notes Treatment Clinical Notes Dec, Type 1 diabetes mellitus with complication (ICD-10 - E10.8) Reviewed pump/cgm download tandem control iq with dexcom g6 12/25/2020-12/13: Avg glcuose 124. >180-9%, 70-180-89%, <70-2%. Will modify basal settings. 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 Patient recently switched from Medtronic 670G with Guardian CGM to Tandem T-Slim X2 with Control IQ on TuesdayDecember 26. He is using Humaolg 100 U/ML SQ via Tandem TSlim X2 and Dexcom G6. His average blood glucose for the past 12 days 124. He was in range 89% of the time. 2% low and 9% above 180. Discussed and reviewed interpretation of Tandem download report with provider, Rimma LAMA which recommended only decreasing basal rate changes MN 1.0 u/hr, 5:30am 1.0 u/hr, and 11:00am 1.00 u/hr with a calculated total daily basal of 24.0 u/day. All other settings remain the same. The patient is very happy with his new insulin pump. Pt admits to overcompensating counting carbs at times,but is working on getting better at this. States he accidently broke off the back clip of a Dexcom transmitter, asked how to get it replaced. Direted pt to contact [employer] for a possible replacement transmitter. Pt also expressed interest for a holster or case for the Tandem T-Slim insulin pump. Directed pt to research online for variousinsulin pump cases he could purchase. All questions answered. 30 minutes total spent on education by Trevon AUGUSTE, RN. [employer] Other 05-01-2020 History general Narrative - Reported* Type Description Date Medical History TYPE I DIABETIC Medical History CA Medical History HX PROSTATE Ca Medical History CA 07/2019 Medical History Left Lung Spontaneous Pleural Ef fusion 11/2020 Medical History CAD Medical History HYPERLIPIDEMIA Medical History HYPERTENSION Medical History NEUROPATHY Medical History H/O PLEURAL EFFUSION Medical History URETHRAL STRICTURE Medical History URINARY HESITANCY Medical History INSULIN PUMP Medical History CONGESTIVE HEART FAILURE Surgical History cardiac stent 2000 Surgical History TOE AMPUTATION X2 RT FOOT 2014 Surgical History hEART STENT x 2 (Dr. Benítez) 0 06/2015 Surgical History prostate Surgical History Skull Fx Surgical History Cataract surgery OU 05/03 Surgical History 2 cardiac stents 07/2019 Surgical History thoracentesis 10/2019 Surgical History thoracentesis 11/2019 Surgical History Heart cath 10/2020 Hospitalization History see above surgical histo ry Hospitalization [place] [facility] [place] [facility] [place] Hospitalization History Chest pain 11/29 Hospitalization History rupture bladder 05/03 Hospitalization History ACUTE EXACERBATI ON OF CHF, GROSS HEMATURIA, CAD, H/O PROSTATE CA, DM, NEUROPATHY, CONSTIPATION; 06/2020 Hospitalization History [place] [place] [employer] Other 05-01-2020 History general Narrative - Reported* Type Description Date Medical History TYPE I DIABETIC Medical History CA Medical History HX PROSTATE Ca Medical History CA 07/2019 Medical History Left Lung Spontaneous Pleural Ef fusion 11/2020 Medical History CAD Medical History HYPERLIPIDEMIA Medical History HYPERTENSION Medical History NEUROPATHY Medical History H/O PLEURAL EFFUSION Medical History URETHRAL STRICTURE Medical History URINARY HESITANCY Medical History INSULIN PUMP Medical History CONGESTIVE HEART FAILURE Surgical History cardiac stent 2000 Surgical History TOE AMPUTATION X2 RT FOOT 2014 Surgical History hEART STENT x 2 (Dr. Benítez) 0 06/2015 Surgical History prostate Surgical History Skull Fx Surgical History Cataract surgery OU 05/03 Surgical History 2 cardiac stents 07/2019 Surgical History thoracentesis 10/2019 Surgical History thoracentesis 11/2019 Surgical History Heart cath 10/2020 Surgical History LEFT EYE SURGERY/REMOVAL OF BHAVYA ATERS 03/04/22 Hospitalization History see above surgical histo ry Hospitalization History [facility] [place] Hospitalization History Chest pain 11/29 Hospitalization History rupture bladder 05/03 Hospitalization History ACUTE EXACERBATI ON OF CHF, GROSS HEMATURIA, CAD, H/O PROSTATE CA, DM, NEUROPATHY, CONSTIPATION; 06/2020 [place] [facility] [place] [place] [facility] [place] [employer] Other Evaluation + Plan note Future Appointments Appointment Date:11/29/2022 08:45:00 AM Scheduled Provider:Xiang KEENAN MD Location:[facility] Appointment Type:URO Office Visit Diagnostic Tests Pending * PSA Total 11/30/21 [facility] Evaluation + Plan note Future Appointments Appointment Date:02/29/2024 08:30:00 AM Scheduled Provider:Mayank URBAN MD Location:[facility] Appointment Type:URO Office Visit Diagnostic Tests Pending * PSA Total 02/15/23 * PSA Total 02/22/23 [facility] Evaluation [facility]No [facility] [employer] Other Evaluation note* Diagnosis Chronic systolic heart failure (HCC) Chronic systolic heart failure [facility] Diagnosis Chronic systolic heart failure (HCC)- Primary Chronic systolic heart failure Ischemic cardiomyopathy Other specified forms of chronic ischemic heart disease 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 Obesity, Class I, BMI 30-34.9 Obesity, unspecified Type 1 diabetes mellitus with diabetic polyneuropathy (HCC) Type I (juvenile type) diabetes mellitus with neurological manifestations, not stated as uncontrolled Dyslipidemia Other and unspecified hyperlipidemia [facility]No [facility] information availableBl[facility] Work Phone: Evaluation note* Diagnosis Chronic systolic heart failure (HCC) Chronic systolic heart failure [facility]* Diagnosis Ischemic cardiomyopathy- Primary Other specified forms of chronic ischemic heart disease Chronic systolic heart failure (HCC) Chronic systolic heart failure 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 Type 1 diabetes mellitus with diabetic polyneuropathy (HCC) Type I (juvenile type) diabetes mellitus with neurological manifestations, not stated as uncontrolled Dyslipidemia Other and unspecified hyperlipidemia [facility] Diagnosis Chronic systolic heart failure (HCC)- Primary Chronic systolic heart failure Ischemic cardiomyopathy Other specified forms of chronic ischemic heart disease [facility]* Diagnosis Chronic systolic heart failure (HCC) Chronic systolic heart failure Ischemic cardiomyopathy Other specified forms of chronic ischemic heart disease 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 Type 1 diabetes mellitus with diabetic polyneuropathy (HCC) Type I (juvenile type) diabetes mellitus with neurological manifestations, not stated as uncontrolled Dyslipidemia Other and unspecified hyperlipidemia [facility] Diagnosis Chronic systolic heart failure (HCC) Chronic systolic heart failure [facility]* Diagnosis Chronic systolic heart failure (HCC) Chronic systolic heart failure Ischemic cardiomyopathy Other specified forms of chronic ischemic heart disease 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 Type 1 diabetes mellitus with diabetic polyneuropathy (HCC) Type I (juvenile type) diabetes mellitus with neurological manifestations, not stated as uncontrolled Dyslipidemia Other and unspecified hyperlipidemia Peripheral vascular disease, unspecified (HCC) Peripheral vascular disease, unspecified [facility] Diagnosis Chronic systolic heart failure (HCC) Chronic systolic heart failure Ischemic cardiomyopathy Other specified forms of chronic ischemic heart disease 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 documented in this [facility]* Diagnosis Chronic systolic heart failure (HCC)- Primary Chronic systolic heart failure Ischemic cardiomyopathy Other specified forms of chronic ischemic heart disease 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 Type 1 diabetes mellitus with diabetic polyneuropathy (HCC) Type I (juvenile type) diabetes mellitus with neurological manifestations, not stated as uncontrolled Dyslipidemia Other and unspecified hyperlipidemia Peripheral vascular disease, unspecified (HCC) Peripheral vascular disease, unspecified Obesity, Class I, BMI 30-34.9 Obesity, unspecified [facility] Diagnosis Ischemic cardiomyopathy Other specified forms of chronic ischemic heart disease 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 Type 1 diabetes mellitus with diabetic polyneuropathy (HCC) Type I (juvenile type) diabetes mellitus with neurological manifestations, not stated as uncontrolled Dyslipidemia Other and unspecified hyperlipidemia [facility] Diagnosis Chronic systolic heart failure (HCC) Chronic systolic heart failure documented in this encounter [facility] course Narrative No data available for this section [facility] Progress note No data available for this section [facility] Reason for referral (narrative)* Reason Referral for EMG/NCS of the B/L upper extremities Diagnosis 1 Paresthesias (R20.2) Referral Organization [facility] Referring Provider First Name Epifanio Referring Provider Last Name Juan M Referring Provider Specialty Internal Mi dicine Referred Organization [facility] Referred Address [address],[place], [place],[address] Referred Provider Specialty Neurology Referral Priority Routine General Notes Mr. Braxton has Ty pe I DM, diabetic peripheral neuropathy, ASHD, ischemic cardiomyopathy and HTN. He presents with persistent upper extremity dysesthesias, which occur during sleep. He sleeps on his back and awakens several hours into his sleep w/ dysesthesias B/L from the shoulders distally. He denies muscle cramping, fasciculations or weakness. He denies neck pain or headache. He denies daytime symptoms. He states, sleeping in a upright lounge chair, prevents his symptoms from occurring. [employer] Other Reason for visit Narrative* Outpatient Procedure (Routine) - Closed Specialty Diagnoses / Procedures Referred By Nawaf reardon [facility] Diagnoses Chronic systolic heart failure (HCC) Ischemic cardiomyopathy 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 Procedures ECHO ECHO TTHRC R-T 2D W/WOM-MODE COMPL SPEC&COLR D Debra Bond MD [address] [place] [address] [facility] [place] [address] [place] [address] Referral ID Status Reason Start Date Expiration Date V isits Requested Visits Authorized [id number] Closed Auto-Generate d Referral 06/24/2022 03/26/2023 1 1 [facility] Summary Purpose Family History Relationship Condition Age at Onset Recorded Date/T aren Not Specified Congestive heart failure Unknown father Secondary malignant neoplasm of prostate Unknown brother Secondary malignant neoplasm of prostate Unknown Advance Directives Documents on File Type Date Recorded Patient Integrated Program Teacher Expl anation Advance Directive(s) 10/16/2020 9:26 AM Advance Directive Response Recorded Date/ Time Advance Directives No January 1:28pm Chief Complaint and Reason for Visit Chief Complaint e10.8 E10.40;E78.5 Chief Complaint E10.40;E78.5 E78.5 Chief Complaint e10.40 e78.5 Medications Administered Section Inactive Administered Medications - up to 3 most recent administrations Medication Order MAR Action Action Date Dose Rate Site perflutren lipid microspheres 1.3 mL in NaCl (PF) 0.9% 10 mL injection (DEFINITY) INTRAVENOUS, DIRECTED NEEDED, 1 dose, Starting on Tue03/26/22 at 1102, Until Tue09/10/22 at 1310, Per Protocol - for use during ECHO procedure only, If no IV access, insert saline lock prior to administering contrast. Discontinue saline lock post exam. If patient has central line or IVAD, may access for administration according to line specific nursing protocol. Once exam is complete, flush line and de-access per line specific nursing protocol.Dilute 1.3 ml of Definity with 8.7 ml of preservative-free saline. Given 09/10/2022 1:10 PM EDT 1.3 mL Arm, Left Reason for Referral Specialty Diagnoses / Procedures Referred By Contac t Referred To Contact Procedures CARDIOVASCULAR MEDICINE OP FOLLOW UP APPT ORDER Debra Bond MD [address] [place] [address] Referral ID Status Reason Start Date Expiration Date Visits Requested Visits Authorized [id number] Ref Not Required PCP Requested Referral 04/12/2023 01/10/2024 1 1 Additional Source Comments (unrecognized sect ion and content) No Status Records FoundNo Status Records FoundNo Status Records FoundNo Status Records FoundNo Status Records FoundNo Status Records Found INFORMATION SOURCE (unrecogn ized section and content) DATE CREATED AUTHOR 04/17/2019 [facility] DATE CREATED AUTHOR AUTHOR'S ORGANIZ ATION 08/10/2020 [facility] DATE CREATED AUTHOR AUTHOR'S ORGANIZ ATION 04/19/2021 [facility] dical Specialist DATE CREATED AUTHOR AUTHOR'S ORGANIZ ATION 01/11/2023 [facility] DATE CREATED AUTHOR AUTHOR'S ORGANIZ ATION 02/24/2023 [facility] DATE CREATED AUTHOR AUTHOR'S ORGANIZ ATION 02/24/2023 [facility] Source Comments (unrecognize d section and content) In the event this informatio n is protected by the Federal Confidentiality of Alcohol and Drug Abuse Patient Records regulations: The Federal rules restrict any use of the information to criminally investigate or prosecute any alcohol or drug abuse patient.[facility] the event this information is protected by the Federal Confidentiality of Alcohol and Drug Abuse Patient Records regulations: The Federal rules restrict any use of the information to criminally investigate or prosecute any alcohol or drug abuse patient.[facility] the event this information is protected by the Federal Confidentiality of Alcohol and Drug Abuse Patient Records regulations: The Federal rules restrict any use of the information to criminally investigate or prosecute any alcohol or drug abuse patient.[facility] the event this information is protected by the Federal Confidentiality of Alcohol and Drug Abuse Patient Records regulations: The Federal rules restrict any use of the information to criminally investigate or prosecute any alcohol or drug abuse patient.[facility] the event this information is protected by the Federal Confidentiality of Alcohol and Drug Abuse Patient Records regulations: The Federal rules restrict any use of the information to criminally investigate or prosecute any alcohol or drug abuse patient.[facility] the event this information is protected by the Federal Confidentiality of Alcohol and Drug Abuse Patient Records regulations: The Federal rules restrict any use of the information to criminally investigate or prosecute any alcohol or drug abuse patient.[facility] the event this information is protected by the Federal Confidentiality of Alcohol and Drug Abuse Patient Records regulations: The Federal rules restrict any use of the information to criminally investigate or prosecute any alcohol or drug abuse patient.[facility] the event this information is protected by the Federal Confidentiality of Alcohol and Drug Abuse Patient Records regulations: The Federal rules restrict any use of the information to criminally investigate or prosecute any alcohol or drug abuse patient.[facility] the event this information is protected by the Federal Confidentiality of Alcohol and Drug Abuse Patient Records regulations: The Federal rules restrict any use of the information to criminally investigate or prosecute any alcohol or drug abuse patient.[facility] the event this information is protected by the Federal Confidentiality of Alcohol and Drug Abuse Patient Records regulations: The Federal rules restrict any use of the information to criminally investigate or prosecute any alcohol or drug abuse patient.[facility] the event this information is protected by the Federal Confidentiality of Alcohol and Drug Abuse Patient Records regulations: The Federal rules restrict any use of the information to criminally investigate or prosecute any alcohol or drug abuse patient.[facility] the event this information is protected by the Federal Confidentiality of Alcohol and Drug Abuse Patient Records regulations: The Federal rules restrict any use of the information to criminally investigate or prosecute any alcohol or drug abuse patient.[facility] the event this information is protected by the Federal Confidentiality of Alcohol and Drug Abuse Patient Records regulations: The Federal rules restrict any use of the information to criminally investigate or prosecute any alcohol or drug abuse patient.[facility] Hospital[facility] the event this information is protected by the Federal Confidentiality of Alcohol and Drug Abuse Patient Records regulations: The Federal rules restrict any use of the information to criminally investigate or prosecute any alcohol or drug abuse patient.[facility] Care Teams (unrecognized sec tion and content) Retort Operator Relationship Specialty Start Date End Date Epifanio Montelongo DO PCP - General Internal Medicine 03/18/15 Debra Bond MD [address] [place] [address] Primary Staff Physician Cardiology 10/03/20 No, Referral Referring Cardiology 10/23/20 Retort Operator Relationship Specialty Start Date End Date Epifanio Montelongo DO PCP - General Internal Medicine 03/18/15 Debra Bond MD [address] [place] [address] Primary Staff Physician Cardiology 10/03/20 No, Referral Referring Cardiology 10/23/20 Retort Operator Relationship Specialty Start Date End Date Epifanio Montelongo DO PCP - General Internal Medicine 03/18/15 Debra Bond MD [address], [place] [id number] Primary Staff Physician Cardiology 10/03/20 No, Referral Referring Cardiology 10/23/20 Team Status: Inactive Member Role Status Dates Epifanio Montelongo , Primary Care Provider Active Selin Leon PA-C Attending Provider Active Team Status: Active Member Role Status Dates Epifanio Montelongo , Primary Care Provider Active Suzi Saxena APRN Attending Provider Active Team Status: Active Member Role Status Dates Epifanio Montelongo , Primary Care Provider Active Team Status: Inactive Member Role Status Dates Epifanio Montelongo , Primary Care Provider Active Suzi Saxena APRN Attending Provider Active Retort Operator Relationship Specialty Start Date End Date Epifanio Montelongo DO PCP - General Internal Medicine 03/18/15 Debra Bond MD [address] [place] [address] Primary Staff Physician Cardiology 10/03/20 No, Referral Referring Cardiology 10/23/20 Retort Operator Relationship Specialty Start Date End Date Epifanio Montelongo DO PCP - General Internal Medicine 03/18/15 Debra Bond MD [address] [place] [address] Primary Staff Physician Cardiology 10/03/20 No, Referral Referring Cardiology 10/23/20 Retort Operator Relationship Specialty Start Date End Date Epifanio Montelongo DO PCP - General Internal Medicine 03/18/15 Debra Bond MD [address] [place] [address] Primary Staff Physician Cardiology 10/03/20 No, Referral Referring Cardiology 10/23/20 Retort Operator Relationship Specialty Start Date End Date Epifanio Montelongo DO PCP - General Internal Medicine 03/18/15 Debra oBnd MD [address] [place] [address] Primary Staff Physician Cardiology 10/03/20 No, Referral Referring Cardiology 10/23/20 Retort Operator Relationship Specialty Start Date End Date Epifanio Montelongo DO PCP - General Internal Medicine 03/18/15 Debra Bond MD [address] [place] [address] Primary Staff Physician Cardiology 10/03/20 No, Referral Referring Cardiology 10/23/20 Retort Operator Relationship Specialty Start Date End Date Epifanio Montelongo DO PCP - General Internal Medicine 03/18/15 Debra Bond MD [address] [place] [address] Primary Staff Physician Cardiology 10/03/20 No, Referral Referring Cardiology 10/23/20 Retort Operator Relationship Specialty Start Date End Date Epifanio Montelongo DO PCP - General Internal Medicine 03/18/15 Debra Bond MD [address] [place] [address] Primary Staff Physician Cardiology 10/03/20 No, Referral Referring Cardiology 10/23/20 Retort Operator Relationship Specialty Start Date End Date Epifanio Montelongo DO PCP - General Internal Medicine 03/18/15 Debra Bond MD [address] [place] [address] Primary Staff Physician Cardiology 10/03/20 No, Referral Referring Cardiology 10/23/20 Retort Operator Relationship Specialty Start Date End Date Epifanio Montelongo DO PCP - General Internal Medicine 03/18/15 Debra Bond MD [address] [place] [address] Primary Staff Physician Cardiology 10/03/20 No, Referral Referring Cardiology 10/23/20 Retort Operator Relationship Specialty Start Date End Date Epifanio Montelongo DO PCP - General Internal Medicine 03/18/15 Debra Bond MD [address] [place] [address] Primary Staff Physician Cardiology 10/03/20 No, Referral Referring Cardiology 10/23/20 Retort Operator Relationship Specialty Start Date End Date Epifanio Montelongo DO PCP - General Internal Medicine 03/18/15 Debra Bond MD [address] [place] [address] Primary Staff Physician Cardiology 10/03/20 No, Referral Referring Cardiology 10/23/20 REASON FOR VISIT (unrecogniz ed section and content) Reason Comments Refill Request Reason Comments Follow Up Reason Comments Counseling Reason Comments Outside Labs Received 12/28 Reason Comments Rx Refills Reason Comments Follow Up Goals (unrecognized section and content) Goals may be documented in a n alternate section FOR RECORDS PERTAINING TO PATIENTS WHO ARE OR HAVE BEEN ENROLLED IN A CHEMICAL DEPENDENCY/SUBSTANCEABUSE PROGRAM, SOME INFORMATION MAY BE OMITTED. This clinical summary was aggregated from multiple sources. Caution should be exercised in using it in the provision of clinical care. This summary normalizes information from multiple sources, and as a consequence, information in this document may materially change the coding, format and clinical context of patient data. In addition, data may be omitted in some cases. CLINICAL DECISIONS SHOULD BE BASED ON THE PRIMARY CLINICAL RECORDS. [facility]. provides no warranty or guarantee of the accuracy or completeness of information in this document.
[2023-03-12 06:57] LABS: Basophils Absolute Auto 0.1 10^3/uL (0.0-0.1); Eosinophils Absolute Auto 0.2 10^3/uL (0.0-0.7); Eosinophils Percent Auto 2.5 % (0.9-7.0); Hematocrit 33.7 % (42.0-54.0); Hemoglobin 11.6 g/dL (14.0-18.0); Immature Granulocytes Abs Auto 0.03 10^3/uL (0.00-0.03); Immature Granulocytes Pct Auto 0.5 % (0.0-0.5); Lymphocytes Absolute Auto 1.6 10^3/uL (1.2-3.8); Lymphocytes Percent Auto 25.8 % (20.5-60.0); Mean Corpuscular HGB Conc 34.4 g/dL (29.9-35.2); Mean Corpuscular Hemoglobin 31.7 pg (25.9-34.0); Mean Corpuscular Volume 92.1 fL (80.0-94.0); Mean Platelet Volume 9.6 fL (9.5-13.5); Monocytes Absolute Auto 0.7 10^3/uL (0.3-0.8); Monocytes Percent Auto 11.1 % (1.7-12.0); Neutrophils Absolute Auto 3.6 10^3/uL (1.4-6.5); Neutrophils Percent Auto 59.1 % (43.0-75.0); Platelet Count 195 10^3/uL (150-450); Red Blood Count 3.66 10^6/uL (4.70-6.10); Red Cell Distribution Width 15.3 % (11.0-15.0); White Blood Count 6.1 10^3/uL (4.0-11.0)
[2023-03-12 07:40] LABS: Anion Gap 9.6; BUN Creatinine Ratio 20.3; Calcium 8.6 mg/dL (8.5-10.1); Carbon Dioxide 33.4 mmol/L (21.0-32.0); Chloride 100 mmol/L (98-107); Estimated GFR (African America >60 (>=60); Estimated GFR (Non-African Ame 58 (>=60); Glucose 133 mg/dL (74-106); Sodium 139 mmol/L (136-145)
== END 2023-03-12 06:41 | disposition home or self-care (01) ==
PROVIDERS: PCP Internal Medicine; Visit Provider Internal Medicine
DX: J98.4 Other disorders of lung (principal); I50.22 Chronic systolic (congestive) heart failure; I25.5 Ischemic cardiomyopathy; J90 Pleural effusion, not elsewhere classified; J93.9 Pneumothorax, unspecified; I51.7 Cardiomegaly; I25.10 Atherosclerotic heart disease of native coronary artery without angina pectoris; I31.39 Other pericardial effusion (noninflammatory)
CPT/HCPCS: 36415; 71250; 80048; 83880; 85025

== ENCOUNTER 2023-03-24 08:55 | Outpatient (OUT) | payer MEDICARE, OTHER, SELFPAY ==
--- NOTE | 2023-03-24 08:59 | MR_ITS ---
[address] [address] Patient Name: RADHA BRAXTON MRN: [id number] date: 1955 Sex: M Assigned Patient Location: MRI Current Patient Location: MRI Accession/Order Number: [id number] Exam Date: 03/24/2023 10:15 Report Date: 03/24/2023 12:18 At the request of: ROEL YOUNG Procedure: MR cervical spine wo con EXAMINATION: MR cervical spine wo con HISTORY: cervical spondylosis with radiculopathy M17.22 COMPARISON: No relevant comparison available. TECHNIQUE: A variety of imaging planes and parameters were utilized for visualization of suspected pathology. FINDINGS: CRANIOCERVICAL AREA: Normal foramen magnum with no Chiari malformation. PARASPINAL AREA: Normal with no visible mass. BONES: Normal alignment of the cervical vertebral bodies with no acute fracture or spondylolisthesis. No bone edema . 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 CERVICAL DISC LEVELS: C2-C3: Early degenerative disc disease is present without focal protrusion or neural impingement. C3-C4: Moderate degenerative disc disease is present. The central canal measures 9.2 mm in AP dimension. No right foraminal stenosis. Mild left foraminal stenosis C4-C5: Mild to moderate degenerative disc disease is present. The central canal measures 8.7 mm in AP dimension. No right foraminal stenosis. Mild left foraminal stenosis C5-C6: Moderate degenerative disc disease. The central canal is narrowed to 8.3 mm in AP dimension. No right foraminal stenosis. Mild to moderate left foraminal stenosis C6-C7: Disc space narrowing and disc desiccation. Mild to moderate diffuse degenerative disc disease. No central or foraminal stenosis C7-T1:. Severe disc space narrowing. Mild diffuse disc/osteophyte complex. No central or foraminal stenosis MR/MR cervical spine wo con IMPRESSION: Moderate degenerative changes resulting in central and foraminal stenosis Electronically authenticated by: KENYON CARNEY Date: 03/24/2023 12:18
--- OUTSIDE RECORDS SUMMARY | 2023-03-24 08:59 | XMS_ITS | CCD ---
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 Name Role Phone DR EPIFANIO MONTELONGO Attending Unavailable BALL, DR BEDOLLA Admitting Unavailable Epifanio Montelongo DO Primary Care Provider Bridger LAKHANI, Ran Unavailable No, Referral Unavailable Unavailable Suzi Saxena Unavailable DO Epifanio Montelongo Primary Care Provider KELBY Saxena Attending Provider TAIWO Leon Attending Provider EPIFANIO MONTELONGO Primary Care Physician DO Epifanio Montelongo Primary Care Provider [phone] KELBY Saxena Attending Provider [phone] Epifanio Montelongo DO Primary Care Provider Bridger LAKHANI, Ran Unavailable No, Referral Unavailable Unavailable Epifanio Montelongo DO Primary Care Provider Bridger LAKHANI, Ran Unavailable No, Referral Unavailable Unavailable Epifanio Montelongo Unavailable DO Epifanio Montelongo Primary Care Provider [phone] KELBY Saxena Attending Provider Bridger LAKHANI, Ran Unavailable BRIDGER RAN Referring Unavailable BRIDGER, RAN Attending Unavailable EPIFANIO MONTELONGO Primary Care Unavailable BRIDGER, RAN Referring Unavailable EPIFANIO MONTELONGO Primary Care Unavailable BRIDGER, RAN Referring Unavailable BRIDGER, RAN Attending Unavailable EPIFANIO MONTELONGO Primary Care Unavailable EPIFANIO MONTELONGO Primary Care Unavailable BRIDGER, RAN Attending Unavailable BRIDGER, RAN Referring Unavailable EPIFANIO MONTELONGO Primary Care Unavailable DEBRA BOND Attending Unavailable DEBRA BOND Referring Unavailable EPIFANIO MONTELONGO Primary Care Unavailable Mayank URBAN Attending Unavailable Mayank URBAN Attending Unavailable Ema Cline Attending Unavailable Reginald Epifanio Primary Care Unavailable Ema Cline Admitting Unavailable ReginaldEpifanio Primary Care Unavailable Mapus, Tondra K Admitting Unavailable Mapus, Tondra K Attending Unavailable Epifanio Montelongo Primary Care Unavailable Mapus, Tondra K Admitting Unavailable Mapus, Tondra K Attending Unavailable LEI GOMEZ Attending Unavailable Allergies Allergy Classification Reported Allergen(s) Allergy Type Date of Onset Reaction(s) Facility Iodine (and Iodine containting drugs) (1 source) Iodine (And Iodine Containting Drugs) Drug Allergy The [facility] Repository Pentazocine (1 source) Pentazocine Drug Allergy The [facility] (15 sources) Aspirin / Pentazocine; Translations: [TALWIN COMPOUND] Drug Allergy 2 Other: See Comments [facility] Work Phone: (15 sources) Iodine; Translations: [IODINE] Drug Allergy 2 Other: See Comments [facility] Work Phone: (20 sources) Pentazocine; Translations: [PENTAZOCINE] Drug Allergy 0 Anaphylaxis [facility] Work Phone: (20 sources) Iodinated Contrast Media; Translations: [IODINATED CONTRAST MEDIA] Drug Allergy 5 Hives, Unknown [facility] Work Phone: (20 sources) Contrast media Propensity to adverse reactions Unknown [facility] Other (1 source) patient allergy list reviewed by nurse or physicia Propensity to adverse reactions 4 Comment:Done [facility] Other (1 source) Contrast media; Translations: [Contrast Dye] Propensity to adverse reactions (disorder) [facility] Repository (1 source) Pentazocine Drug Allergy 1 [facility] Repository (1 source) Iodinated Contrast Media Drug allergy (disorder) 1 [facility] Repository Medications Current Medications Medication Drug Class(es) Dates Sig (Normalized) Sig (Original) 24 hr alfuzosin hydrochloride 10 mg extended release oral tablet (20 sources) alpha-Adrenergic Derrek Start: 04-12-2019 take 1 tablet by mouth once daily alfuzosin 10 mg ER Tab 10 mg = 1 tab(s), Oral, Daily, # 90 tab(s), Refills(s) 3, Pharmacy: [facility]/pharmacy #[id number], 185, cm, 02/22/23 8:51:00 EST, [...] once daily. benzonatate 100 mg oral capsule (10 sources) Non-narcotic Antitussive Start: take 1 capsule by mouth three times [...] 80 units/day insulin pump Injection As Directed e10.9 Active inject 70 [IU] by herrera [...] 11/24/20 Status: Ordered take 2 tablets by [facility] every twenty-four hours Potassium Chloride ER 20 [...] Ischemic cardiomyopathy , Coronary artery disease involving [place] coronary artery of [place] heart without angina pectoris , Type 1 [...] D2 Compound Start: 01-05-2018 End: 04-12-2019 take 42645 [IU] by mouth every week Ergocalciferol (Vitamin D2) Discontinued 77568 UNITS PO every week January 05, 2018 12:00am April 12, 2019 6:57pm take 1 capsule by mo uth two times weekly Ergocalciferol 1.25 MG (89697 UT) 1 caps ule Orally twice weekly [...] Ischemic cardiomyopathy , Coronary artery disease involving [place] coronary artery of [place] heart without angina pectoris TAKE 1/2 TABLET [...] Ischemic cardiomyopathy , Coronary artery disease involving [place] coronary artery of [place] heart without angina pectoris , Type 1 diabetes mellitus with diabetic polyneuropathy (HCC) , Dyslipidemia Take 2 tablets by mouth once daily. 0 09/10/2022 Active Start: 08-19-2022 End: 09-10-2022 take 2 tablets by mouth twice daily torsemide (DEMADEX) 20 mg tablet Indications: Chronic systolic heart failure (HCC) , Ischemic cardiomyopathy , Coronary artery disease involving [place] coronary artery of [place] heart without angina pectoris , Type 1 diabetes mellitus with diabetic polyneuropathy ([facility]) , Dyslipidemia TAKE 2 TABLETS BY MOUTH [...] Ischemic cardiomyopathy , Coronary artery disease involving [place] coronary artery of [place] heart without angina pectoris , Type 1 [...] (1 source) Anemia; Translations: [Anemia, unspecified] Episodic Deficiency and other anemia (1 source) Anemia, unspecified Episodic Diabetes mellitus with complications (20 sources) [...] sources) Long-term current use of insulin; Translations: [correction (current) use of insulin] Onset: 1 01-16-2021 Episodic Other aftercare (20 sources) Drug therapy finding; Translations: [terminal clerk (current) use of systemic steroids] Episodic Other aftercare (6 sources) terminal clerk (current) use of insulin Onset: 1 Resolved: 2 Episodic Other aftercare (3 sources) Patient encounter status; Translations: [correction (current) use of antithrombotics/antipl atelets] 05-25-2020 Episodic [...] disease ; Translations: [Polyneuropathy, unspecified] Onset: 1 03-03-2022 Chronic Other nervous system disorders (14 sources) Idiopathic progressive polyneuropathy; Translations: [Idiopathic progressive neuropathy] Onset: 2 05-14-2021 Chronic Other nervous system disorders (8 sources) Neuropathy; Translations: [Polyneuropathy, unspecified] Onset: 1 06-17-2020 Chronic Other nervous system disorders (20 sources) Paresthesia; Translations: [Paresthesia of skin] Onset: 8 05-14-2021 Episodic Other nervous system disorders (2 sources) Paresthesia of skin Episodic Other nutritional; endocrine; [...] conditions (not mental disorders or infectious disease) (2 sources) Encounter for screening for malignant neoplasm of prostate; Translations: [Encounter for screening for malignant neoplasm of colon] Episodic Other skin disorders (1 source) Folliculitis; Translations: [Follicular disorder, unspecified] Episodic Peripheral and visceral atherosclerosis (20 sources) Peripheral vascular disease; Translations: [Peripheral vascular disease, unspecified] Onset: 5 01-16-2021 Chronic Pleurisy; pneumothorax; pulmonary collapse (19 sources) Pleural effusion; Translations: [Pleural effusion, not elsewhere classified] Onset: 1 10-22-2020 Episodic Residual codes; unclassified (1 source) Absence of lung; Translations: [Acquired absence of lung [part of]] Episodic Spondylosis; intervertebral disc disorders; other back problems (20 sources) Cervical spondylosis; Translations: [Other spondylosis with [...] [Acute maxillary sinusitis, unspecified] Onset: 10-05-2013 Episodic Pneumonia (except that caused by tuberculosis [...] mention of infection] Onset: 05-28-2013 Episodic Unclassified (3 sources) Persistent cough R05.3 Results Test Name Value Interpretation Reference Range Facility Screenson 02-23-2023 Screens [id number]. [id number] Normal [facility] Patient Educationon 02-23-20 23 Patient Education Urology [...] Follow these instructions at home: ? Take [id number] and prescription medicines only as told by [...] the medicine (more content not included)... Normal [facility] Urology Office/Clinic Noteon 02-22-2023 Urology Office/Clinic Note Chief Complaint 1 year [...] - 0.[address] Cuellar any longer. Discussed PSA with pt, low and stable. Will continue to monitor. Follow up in 1 yr w/PSA. All questions/concerns were discussed. Pt to call the office if he encounters any issues prior. Pt acknowledges understanding. -Will order PSA. Follow-up With When Contact Information HITESH LAKHANI, Mayank Quijano, URL In 1 year [facility] [address], [place] [address]- Additional Instructions: w/PSA Patient Education Benign Prostatic Hyperplasia Peggy Licona , personally scribed for Dr. Urban on 02/22/2023 09:38:12. . Portions of this record may have been created with voice recognition artificial intelligence software, specifically [employer]ethean, Clifford Thames and or [employer]. Substitutions may have occurred due to the inherent limitations of voice recognition and artificial intelligence software. Documentation recorded by the scribe, Peggy Lane, accurately reflects the services(s) I performed and [...] Tab, Oral, (more content not included)... Normal [facility] Comment on above: Result Comment: Elec tronically Signed By: HITESH LAKHANI, Mayank Quijano\.br\Date and Time Signed: 02/22/23 09:40 EST\.br\Electronically Co-Signed By: Pgegy Lane\.br\Date and Time Co-Signed: 02/22/23 09:38 EST Lab Reportson 02-17-2023 Lab Reports [id number] [id number] Normal [facility] PSA Total (Not a Screen)on 04-19-2022 PSA Total (Not a Screen) 0.040 ng/mL Normal 0.000-4.000 [facility] Comment on above: Result Comment: PERF ORMED BY: [place] [id number] PATHOLOGIST TALKING BOOKS LIBRARY CLERK AALIYAH BENITEZ M.D. Performed By: #### P SATOTAL #### [address] A1C HEMOGLOBINon 02-02-2023 HbA1c (Bld) [Mass fraction] 6.8 % [facility] Other Glucose - FINGER STICKon Glucose [Mass/Vol] 87 mg/dL [facility] [place] Other HbA1c (Bld) [Mass fraction]o n 02-02-2023 A1C HEMOGLOBIN [facility] [place] Other Alanine aminotransferase [En zymatic activity/volume] in Serum or PlasmaOrdered By: Suzi Saxena on 10-18-2022 ALT [Catalytic activity/Vol] 13 U/L 7-52 [facility] Albumin [Mass/volume] in Ser um or Plasma by Bromocresol green (BCG) dye binding methoOrdered By: Jordana Odessa on 10-18-2022 Albumin BCG dye [Mass/Vol] 3.7 g/dL 3.5-5.7 [facility] Alkaline phosphatase [Enzyma tic activity/volume] in Serum or PlasmaOrdered By: Jordana Odessa on 10-18-2022 ALP [Catalytic activity/Vol] 58 U/L 34-104 [facility] Aspartate aminotransferase [ Enzymatic activity/volume] in Serum or PlasmaOrdered By: Tona Mapus on 10-18-2022 AST [Catalytic activity/Vol] 18 U/L 13-39 [facility] Bilirubin.total [Mass/volume ] in Serum or PlasmaOrdered By: Suzi Saxena on 10-18-2022 Bilirubin [Mass/Vol] 1.3 mg/dL 0.3-1.0 [facility] Comment on above: Samples from patient s who have taken Naproxen have shown spurious elevation in Total Bilirubin levels. A metabolite of Naproxen, O-desmethylnaproxen, has been shown to interfere with the Bayron-Jacinto method for measuring Total Bilirubin. Calcium [Mass/volume] in Ser um or PlasmaOrdered By: Jordana Odessa on 10-18-2022 Calcium [Mass/Vol] 8.6 mg/dL 8.6-10.3 [facility] Carbon dioxide, total [Moles /volume] in Serum or PlasmaOrdered By: Tondra Mapus on 10-18-2022 CO2 [Moles/Vol] 30.6 mmol/L 21.0-31.0 [facility] Chloride [Moles/volume] in S curly or PlasmaOrdered By: Suzi Saxena on 10-18-2022 Chloride [Moles/Vol] 104 mmol/L 98-107 [facility] Cholesterol [Mass/volume] in Serum or PlasmaOrdered By: Suzi Saxena on 10-18-2022 Cholesterol [Mass/Vol] 107 mg/dL 140-200 [facility] Comment on above: Chol less than 200 m g/dl low riskChol 201-239 mg/dl borderline riskChol 240 mg/dl and greater high risk Cholesterol in LDL Calc [Mas s/Vol]Ordered By: Suzi Saxena on 10-18-2022 Cholesterol in LDL [Mass/Vol] 60 mg/dL 0-100 [facility] Comment on above: LDL ATP III CLASSIFI CATIONLDL less than 100 mg/dL OptimalLDL 100-129 mg/dL Near or above optimalLDL 130-159 mg/dL Borderline highLDL 160-189 mg/dL HighLDL greater than 189 mg/dL Very high Cholesterol in VLDL Calc [Ma ss/Vol]Ordered By: Suzi Saxena on 10-18-2022 Cholesterol in VLDL [Mass/Vol] 9 mg/dL [facility] Comprehensive Metabolic Pane milly 10-18-2022 Albumin [Mass/Vol] 3.7 g/dL Normal 3.5-5.7 [facility] Comment on above: Order Comment: PT FA STED 12 HOURS 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;Hyperlipid Performed By: #### C MP, LIPID, URMACRERAT #### [facility] [address] Albumin/Globulin [Mass ratio] 1.6 {ratio} Normal [facility] Comment on above: Order Comment: PT FA STED 12 HOURS 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;Hyperlipid Performed By: #### C MP, LIPID, URMACRERAT #### [facility] [address] [place] [address] [place] ALP [Catalytic activity/Vol] 58 U/L Normal 34-104 [facility] Comment on above: Order Comment: PT FA STED 12 HOURS 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;Hyperlipid Performed By: #### C MP, LIPID, URMACRERAT #### [facility] [address] ALT [Catalytic activity/Vol] 13 U/L Normal 7-52 [facility] Comment on above: Order Comment: PT FA STED 12 HOURS 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;Hyperlipid Performed By: #### C MP, LIPID, URMACRERAT #### [facility] [address] Anion gap [Moles/Vol] 7.9 mmol/L Normal 6.0-15.0 [facility] Comment on above: Order Comment: PT FA STED 12 HOURS 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;Hyperlipid Performed By: #### C MP, LIPID, URMACRERAT #### [facility] [address] [place] [address] AST [Catalytic activity/Vol] 18 U/L Normal 13-39 [facility] Comment on above: Order Comment: PT FA STED 12 HOURS 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;Hyperlipid Performed By: #### C MP, LIPID, URMACRERAT #### [facility] [address] [place] [address] Bilirubin [Mass/Vol] 1.3 mg/dL High 0.3-1.0 [facility] Comment on above: Order Comment: [...] By: #### C MP, LIPID, URMACRERAT #### [facility] [address] [place] [address] Calcium [Mass/Vol] 8.6 mg/dL Normal 8.6-10.3 [facility] Comment on above: Order Comment: PT FA STED 12 HOURS 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;Hyperlipid Performed By: #### C MP, LIPID, URMACRERAT #### [facility] [address] Chloride [Moles/Vol] 104 mmol/L Normal 98-107 [facility] Comment on above: Order Comment: PT FA STED 12 HOURS 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;Hyperlipid Performed By: #### C MP, LIPID, URMACRERAT #### [facility] [address] CO2 [Moles/Vol] 30.6 mmol/L Normal 21.0-31.0 [facility] Comment on above: Order Comment: PT FA STED 12 HOURS 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;Hyperlipid Performed By: #### C MP, LIPID, URMACRERAT #### [facility] [address] [place] [address] Creatinine [Mass/Vol] 0.95 mg/dL Normal 0.70-1.30 [facility] Comment on above: Order Comment: PT FA STED 12 HOURS 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;Hyperlipid Performed By: #### C MP, LIPID, URMACRERAT #### [facility] [address] [place] [address] GFR/1.73 sq M.predicted MDRD (S/P/Bld) [Vol rate/Area] mL/min/{1.73_m2} [facility] Comment on above: Order Comment: PT FA STED 12 HOURS 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;Hyperlipid Performed By: #### C MP, LIPID, URMACRERAT #### [facility] [address] [place] [address] [place] Globulin (S) [Mass/Vol] 2.3 g/dL Normal [facility] Comment on above: Order Comment: PT FA STED 12 HOURS 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;Hyperlipid Performed By: #### C MP, LIPID, URMACRERAT #### [facility] [address] Glucose [Mass/Vol] 94 mg/dL Normal 70-100 [facility] Comment on above: Order Comment: PT FA STED 12 HOURS 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;Hyperlipid Result Comment: [facility] Glucose Reference Range is dependent on time and content of last meal. Glucose of more than 200 mg/dL in a nonstressed, ambulatory subject supports the diagnosis of Diabetes Mellitus. ADA recommended reference range Performed By: #### C MP, LIPID, URMACRERAT #### [facility] [address] [place] [address] Potassium [Moles/Vol] 4.5 mmol/L Normal 3.5-5.1 [facility] Comment on above: Order Comment: PT FA STED 12 HOURS 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;Hyperlipid Performed By: #### C MP, LIPID, URMACRERAT #### [facility] [address] [place] [address] Protein [Mass/Vol] 6.0 g/dL Low 6.4-8.9 [facility] Comment on above: Order Comment: PT FA STED 12 HOURS 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;Hyperlipid Performed By: #### C MP, LIPID, URMACRERAT #### [facility] [address] [place] [address] [place] Sodium [Moles/Vol] 138 mmol/L Normal 136-145 [facility] Comment on above: Order Comment: PT FA STED 12 HOURS 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;Hyperlipid Performed By: #### C MP, LIPID, URMACRERAT #### [facility] [address] [place] [address] [place] Urea nitrogen [Mass/Vol] 20 mg/dL Normal 7-25 [facility] Comment on above: Order Comment: PT FA STED 12 HOURS 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;Hyperlipid Performed By: #### C MP, LIPID, URMACRERAT #### [facility] [address] [place] [address] [place] Creatinine [Mass/volume] in Serum or PlasmaOrdered By: Suzi Saxena on 10-18-2022 Creatinine [Mass/Vol] 0.95 mg/dL 0.70-1.30 [facility] Creatinine [Mass/volume] in UrineOrdered By: Suzi Saxena on 10-18-2022 Creatinine (U) [Mass/Vol] 86.0 mg/dL 14.0-26.0 [facility] Globulin Calc (S) [Mass/Vol] Ordered By: Suzi Saxena on 10-18-2022 Globulin (S) [Mass/Vol] 2.3 g/dL [facility] Glucose [Mass/volume] in Ser um or PlasmaOrdered By: Suzi Saxena on 10-18-2022 Glucose [Mass/Vol] 94 mg/dL 70-100 [facility] Comment on above: ADA recommended refe rence rangeRandom Glucose Reference Range is dependent on time and content of last meal. Glucose of more than 200 mg/dL in a nonstressed, ambulatory subject supports the diagnosis of Diabetes Mellitus. Lipid Panelon 10-18-2022 Cholesterol [Mass/Vol] 107 mg/dL Low 140-200 [facility] Comment on above: Order Comment: PT FA STED 12 HOURS 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;Hyperlipid Result Comment: Chol less than 200 mg/dl low risk Chol 201-239 mg/dl borderline risk Chol 240 mg/dl and greater high risk Performed By: #### C MP, LIPID, URMACRERAT #### [facility] [address] Cholesterol in HDL [Mass/Vol] 38 mg/dL Normal 23-92 [facility] Comment on above: Order Comment: PT FA STED 12 HOURS 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;Hyperlipid Result Comment: HDL CHOL ATP-III CLASSIFICATION Cardiovascular Risk HDL > or equal to 60 mg/dL LOW HDL < 40 mg/dL HIGH Performed By: #### C MP, LIPID, URMACRERAT #### [facility] [address] Cholesterol.total/Lena sterol in HDL [Mass ratio] 2.8 {ratio} Normal <5.0 [facility] Comment on above: Order Comment: PT FA STED 12 HOURS 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;Hyperlipid Result Comment: PERF ORMED BY: [place] [address] PATHOLOGIST TALKING [employer] LIBRARY CLERK AALIYAH BENITEZ M.D. Performed By: #### C MP, LIPID, URMACRERAT #### [facility] [address] [place] [address] LDL Cholesterol,Calculated 60 mg/dL Normal 0-100 [facility] Comment on above: Order Comment: PT FA [...] By: #### C MP, LIPID, URMACRERAT #### [facility] [address] [place] [address] Triglyceride w/Reflex 46 mg/dL Normal 0-149 [facility] Comment on above: Order Comment: [...] By: #### C MP, LIPID, URMACRERAT #### [facility] [address] [place] [address] VLDL CHOLESTEROL 9 mg/dL Normal [facility] Comment on above: Order Comment: PT FA STED 12 HOURS 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;Hyperlipid Performed By: #### C MP, LIPID, URMACRERAT #### [address] MicroAlb Creat Ratio,Uon Albumin DL <= 20 mg/L (U) [Mass/Vol] 1.3 mg/dL Normal 0.0-1.8 [facility] Comment on above: Order Comment: PT TO RETURN SAMPLE TODAY-RMP Reason 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 Performed By: #### C MP, LIPID, URMACRERAT #### [facility] [address] Creatinine, Urine (Random) 86.0 mg/dL High 14.0-26.0 [facility] Comment on above: Order Comment: PT TO RETURN SAMPLE TODAY-RMP Reason 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 Performed By: #### C MP, LIPID, URMACRERAT #### [facility] [address] Microalbumin/Creatinine Ratio 15.0 mg/g Normal 0.0-30.0 [facility] Comment on above: Order Comment: PT TO RETURN SAMPLE TODAY-RMP Reason 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 Result Comment: 30-3 00 mg/g indicates an increased risk for diabetic nephropathy. Greater than 300 mg/g is consistent with clinical nephropathy. (Am. J. Kidney Disease 1995, 25:107) PERFORMED BY: [place] [address] PATHOLOGIST T[employer] LIBRARY CLERK AALIYAH BENITEZ M.D. Performed By: #### C MP, LIPID, URMACRERAT #### [facility] [address] [place] [address] Microalbumin [Mass/volume] i n UrineOrdered By: Suzi Saxena on 10-18-2022 Albumin DL <= 20 mg/L (U) [Mass/Vol] 1.3 mg/dL 0.0-1.8 [facility] No Panel InformationOrdered By: Suzi Saxena on 10-18-2022 Estimated GFR (CKD-EPI) > 60.0 mL/Min [facility] Creatinine Clearance (Chem N/A [facility] Potassium [Moles/volume] in Serum or PlasmaOrdered By: Suzi Saxena on 10-18-2022 Potassium [Moles/Vol] 4.5 mmol/L 3.5-5.1 [facility] Protein [Mass/volume] in Ser um or PlasmaOrdered By: Suzi Saxena on 10-18-2022 Protein [Mass/Vol] 6.0 g/dL 6.4-8.9 [facility] Serum or plasma albumin/glob ulin mass ratioOrdered By: Jordana Odessa on 10-18-2022 Albumin/Globulin [Mass ratio] 1.6 {ratio} [facility] Serum or plasma anion gap de terminationOrdered By: Suzi Saxena on 10-18-2022 Anion gap [Moles/Vol] 7.9 mmol/L 6.0-15.0 [facility] Serum or plasma high density lipoprotein (HDL) cholesterol measurementOrdered By: Suzi Saxena on 10-18-2022 Cholesterol in HDL [Mass/Vol] 38 mg/dL 23-92 [facility] Comment on above: HDL CHOL ATP-III CLA SSIFICATION Cardiovascular RiskHDL > or equal to 60 mg/dL LOWHDL < 40 mg/dL HIGH Serum or plasma total choles terol/high density lipoprotein (HDL) cholesterol mass ratOrdered By: Suzi Saxena on 10-18-2022 Cholesterol.total/Lena sterol in HDL [Mass ratio] 2.8 {ratio} <5.0 [facility] Sodium [Moles/volume] in Ser um or PlasmaOrdered By: Suzi Saxena on 10-18-2022 Sodium [Moles/Vol] 138 mmol/L 136-145 [facility] Triglyceride [Mass/volume] i n Serum or PlasmaOrdered By: Suzi Saxena on 10-18-2022 Triglyceride [Mass/Vol] 46 mg/dL 0-149 [facility] Comment on above: TRIG ATP III CLASSIF ICATIONTRIG less than 150 mg/dL NormalTRIG 150-199 mg/dL Borderline highTRIG 200-500 mg/dL High TRIG greater than 500 mg/dL Very highStandard traceable to the Center for Disease Conrtrol and Prevention (CDC) test method. Urea nitrogen [Mass/volume] in Serum or PlasmaOrdered By: Suzi Saxena on 10-18-2022 Urea nitrogen [Mass/Vol] 20 mg/dL 10-05 [facility] Urine microalbumin/creatinin e mass ratioOrdered By: Suzi Saxena on 10-18-2022 Albumin/Creatinine DL <= 20 mg/L (U) [Mass ratio] 15.0 mg/g 0.0-30.0 [facility] Comment on above: 30-300 mg/g indicate s an increased risk for diabetic nephropathy. Greater than 300 mg/g is consistent with clinical nephropathy. (Am. J. Kidney Disease 1995, 25:107) CNOVon 09-10-2022 CNOV Office Visit (CARD C HF EDITH) ELLIS BRAXTON ([id number]) 1955 Date Time Provider Department 09/10/22 1:45 PM DEBRA BOND CHF EDITH During your visit today, we recorded the following information about you: Pulse Blood pressure Weight Height 58/minute 116/55 112.4 kg 1.854 m Debra Bond MD 10/10/2022 10:52 PM Signed Heart and Vascular [facility] For Heart Failure SECTION OF HEART FAILURE and CARDIAC TRANSPLANT MEDICINE OUTPATIENT VISIT DATE September 10, 2022 OUTPATIENT VISIT TYPE Established Patient PRIMARY CARE PHYSICIAN: Epifanio Montelongo ([place]) [address] [place] [address] CHIEF COMPLAINT: Follow-up NURSING INTAKE (Patient?s concerns [...] and PCI 15 years ago 2005, 2011 ([place]), July 2019 (chest pain two stents), no stent cards, performed by Dr. Benítez at [facility]. Stents were all to the LAD 3. [...] once daily.Disp (more content not included)... Normal [facility] Office Visit (PERVMN ) ELLIS BRAXTON ([id number]) 1955 [place] Date Time Provider Department 09/10/22 12:30 PM HVI DISCHARGE ECHO J3-5 PERVMN During your visit today, we recorded the following information about you: Referring Provider: DEBRA BOND [[id number]] Allergies As of Date: 09/10/2022 Noted Allergy [...] Ischemic cardiomyopathy [I25.5] Coronary artery disease involving [place] coronary artery of [place] heart without angina pectoris [I25.10] Order(s):ECHO [899605] Order #: [id number]. 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 Ordering physician: DEBRA BOND Indication: Evaluation of [...] * * * Final * * * [employer] Medical Image : [id number] Normal [facility] Urinalysis - DIPSTICKon 07-12 Appearance (U) clear [employer] Other Bilirubin Ql (U) Negative [employer] Other Color (U) pale yellow [employer] Other Glucose Ql (U) Negative [employer] Other Hemoglobin Ql (U) Negative LS9 Other Ketones Ql (U) Negative [employer] Other Leukocyte esterase Test strip Ql (U) Negative [employer] Other Nitrite Ql (U) Negative [employer] Other pH (U) 5.0 [pH] [employer] Other Protein Ql (U) Negative [employer] Other Specific gravity (U) [Rel density] 1.005 [employer] Other Urobilinogen (U) [Mass/Vol] Negative [employer] Other Urinalysis - DIPSTICK [employer] Other A1C HEMOGLOBINon 07-13-2022 HbA1c (Bld) [Mass fraction] 6.1 % [employer] Other Glucose - FINGER STICKon Glucose [Mass/Vol] 132 mg/dL [employer] Other HbA1c (Bld) [Mass fraction]o n 07-13-2022 A1C HEMOGLOBIN [employer] Other A1C HEMOGLOBINon 04-06-2022 HbA1c (Bld) [Mass fraction] 6.1 % [employer] Other Glucose - FINGER STICKon Glucose [Mass/Vol] 119 mg/dL [employer] Other HbA1c (Bld) [Mass fraction]o n 04-06-2022 A1C HEMOGLOBIN [employer] Other CNOVon 03-26-2022 CNOV Office Visit (CAMILLE ISSA MAI) ELLIS BRAXTON ([id number]) 1955 M Date Time Provider Department 03/26/22 10:15 AM DEBRA BOND MAI During your visit today, we recorded the following information about you: Pulse Blood pressure Weight Height 70/minute 108/52 111.2 kg 1.854 m Debra Bond MD 03/26/2022 1:55 PM [facility] Heart and Vascular [facility] For Heart Failure SECTION OF HEART FAILURE and CARDIAC TRANSPLANT MEDICINE OUTPATIENT VISIT DATE March 26, 2022 OUTPATIENT VISIT TYPE Established Patient PRIMARY CARE PHYSICIAN: Epifanio Montelongo ([facility]) [address] [place] [address] CHIEF COMPLAINT: Follow-up NURSING INTAKE (Patient?s concerns [...] and PCI 15 years ago 2005, [place] ([place] July 2019 (chest pain two stents), no stent cards, performed by Dr. Benítez at [facility]. Stents were all to the LAD 3. [...] Melena, Nausea (more content not included)... Normal [facility] Comprehensive metabolic 2000 panelon 03-26-2022 Albumin [Mass/Vol] 3.8 g/dL Low 3.9-4.9 [facility] Comment on above: Order Comment: Speci men Type: BLOOD SPECIMEN Ordering Facility: [facility] Address: [address] [place] [address] Performed By: #### 2 4323-8, 69419-8 #### [facility] CLIA [id number] [address] [place] [address] [place] ALP [Catalytic activity/Vol] 81 U/L Normal 38-113 [facility] Comment on above: Order Comment: Speci men Type: BLOOD SPECIMEN Ordering Facility: [facility] Address: [address] [place] [address] Performed By: #### 2 4323-8, 82562-8 #### [facility] CLIA [id number] [address] [place] [address] [place] ALT [Catalytic activity/Vol] 18 U/L Normal 10-54 [facility] Comment on above: Order Comment: Speci men Type: BLOOD SPECIMEN Ordering Facility: [facility] Address: [address] [place] [address] Performed By: #### 2 4323-8, 39983-5 #### [facility] CLIA [id number] [address] [place] [address] [place] Anion gap [Moles/Vol] 9 mmol/L Normal 9-18 [facility] Comment on above: Order Comment: Speci men Type: BLOOD SPECIMEN Ordering Facility: [facility] Address: [address] [place], [place] [address] Performed By: #### 2 4323-8, 19670-6 #### [facility] CLIA [id number] [address] [place] [address] [place] AST [Catalytic activity/Vol] 21 U/L Normal 14-40 [facility] Comment on above: Order Comment: Speci men Type: BLOOD SPECIMEN Ordering Facility: [facility] Address: [address] Performed By: #### 2 4323-8, 34852-9 #### [facility] CLIA [id number] [address] [place] [address] [place] Bilirubin [Mass/Vol] 0.8 mg/dL Normal 0.2-1.3 [facility] Comment on above: Order Comment: Speci men Type: BLOOD SPECIMEN Ordering Facility: [facility] Address: [address] Performed By: #### 2 4323-8, 39205-0 #### [facility] CLIA [id number] [address] [place] [address] [place] Calcium [Mass/Vol] 8.8 mg/dL Normal 8.5-10.2 [facility] Comment on above: Order Comment: Speci men Type: BLOOD SPECIMEN Ordering Facility: [facility] Address: [address] Performed By: #### 2 4323-8, 88502-1 #### [facility] CLIA [id number] [address] [place] [address] [place] Chloride [Moles/Vol] 100 mmol/L Normal 97-105 [facility] Comment on above: Order Comment: Speci men Type: BLOOD SPECIMEN Ordering Facility: [facility] Address: [address] Performed By: #### 2 4323-8, 39414-4 #### [facility] CLIA [id number] [address] [place] [address] [place] CO2 [Moles/Vol] 28 mmol/L Normal 22-30 [facility] Comment on above: Order Comment: Speci men Type: BLOOD SPECIMEN Ordering Facility: [facility] Address: [address] Performed By: #### 2 4323-8, 80385-4 #### [facility] CLIA [id number] [facility] [place] [address] [place] Creatinine [Mass/Vol] 1.19 mg/dL Normal 0.73-1.22 [facility] Comment on above: Order Comment: Ricardo ignacio Type: BLOOD SPECIMEN Ordering Facility: [facility] Address: [address] Performed By: #### 2 4323-8, 07623-5 #### [facility] CLIA [id number] [address] [place] [address] [place] ESTIMATED GLOMERULAR FILTRATION RATE 67 mL/min/1.73m??? Normal >=60 [facility] Comment on above: Order Comment: Ricardo ignacio Type: BLOOD SPECIMEN Ordering Facility: [facility] Address: [address] [place] [address] Result Comment: Aileen mated Glomerular Filtration Rate [...] actual GFR. Performed By: #### 2 4323-8, 02745-4 #### [facility] CLIA [id number] [address] [place] [address] [place] Glucose [Mass/Vol] 169 mg/dL High 74-99 [facility] Comment on above: Order Comment: Ricardo ignacio Type: BLOOD SPECIMEN Ordering Facility: [facility] Address: [address] Result Comment: The [place] Diabetes Association (ADA) provides guidance for cutoff [...] Standards of Medical Care in Diabetes 2016, [place] Diabetes Association. Diabetes Care. 2016.39(Suppl 1). Performed By: #### 2 4323-8, 36487-9 #### [facility] CLIA [id number] [address] [place] [address] [place] Potassium [Moles/Vol] 4.4 mmol/L Normal 3.7-5.1 [facility] Comment on above: Order Comment: Speci men Type: BLOOD SPECIMEN Ordering Facility: [facility] Address: [address] [place] [address] Performed By: #### 2 4323-8, 59993-5 #### [facility] CLIA [id number] [address] [place] [address] [place] Protein [Mass/Vol] 6.4 g/dL Normal 6.3-8.0 [facility] Comment on above: Order Comment: Ricardo ignacio Type: BLOOD SPECIMEN Ordering Facility: [facility] Address: [address] [place] [address] Performed By: #### 2 4323-8, 27223-5 #### [facility] CLIA [id number] [address] [place] [address] [place] Sodium [Moles/Vol] 137 mmol/L Normal 136-144 [facility] Comment on above: Order Comment: Speci men Type: BLOOD SPECIMEN Ordering Facility: [facility] Address: [address] [place] [address] Performed By: #### 2 4323-8, 38615-4 #### [facility] CLIA [id number] [address] [place] [id number] [place] Urea nitrogen [Mass/Vol] 23 mg/dL Normal 9-24 [facility] Comment on above: Order Comment: Speci men Type: BLOOD SPECIMEN Ordering Facility: [facility] Address: [place] [place] [address] Performed By: #### 2 4323-8, 88536-4 #### [facility] CLIA [id number] [address] [place] NT-proBNP SerPl-mCncon 03-26 Natriuretic peptide.B prohormone N-Terminal [Mass/Vol] 3092 pg/mL High <125 [facility] Comment on above: Order Comment: Ricardo ignacio Type: BLOOD SPECIMEN Ordering Facility: [facility] Address: [place] [place] [address] Performed By: #### 2 4323-8, 21094-4 #### [facility] CLIA [id number] [address] [place] [address] [place] A1C HEMOGLOBINon 12-28-2021 HbA1c (Bld) [Mass fraction] 6.8 % [employer] Other Glucose - FINGER STICKon Glucose [Mass/Vol] 188 mg/dL [employer] Other HbA1c (Bld) [Mass fraction]o n 12-28-2021 A1C HEMOGLOBIN [facility] [employer] Other Body fluid albumin measureme nt (mass/volume)Ordered By: Suzi Saxena on 12-24-2021 Albumin (Body fld) [Mass/Vol] 3.1 g/dL 3.2-5.5 [facility] Cholesterol [Mass/volume] in Serum or PlasmaOrdered By: Suzi Saxena on 12-24-2021 Cholesterol [Mass/Vol] 103 mg/dL 140-200 [facility] Comment on above: Chol less than 200 m g/dl low riskChol 201-239 mg/dl borderline riskChol 240 mg/dl and greater high risk Cholesterol in LDL Calc [Mas s/Vol]Ordered By: Suzi Saxena on 12-24-2021 Cholesterol in LDL [Mass/Vol] 60 mg/dL 0-100 [facility] Comment on above: LDL ATP III CLASSIFI CATIONLDL less than 100 mg/dL OptimalLDL 100-129 mg/dL Near or above optimalLDL 130-159 mg/dL Borderline highLDL 160-189 mg/dL HighLDL greater than 189 mg/dL Very high Cholesterol in VLDL Calc [Ma ss/Vol]Ordered By: Suzi Saxena on 12-24-2021 Cholesterol in VLDL [Mass/Vol] 8 mg/dL [facility] Creatinine [Mass/volume] in UrineOrdered By: Suzi Saxena on 12-24-2021 Creatinine (U) [Mass/Vol] 124.4 mg/dL [facility] Comment on above: No reference range e stablished Creatinine and Glomerular fi ltration rate.predicted panel (S/P/Bld)Ordered By: Suzi Saxena on 12-24-2021 Creatinine [Mass/Vol] 1.28 mg/dL 0.64-1.27 [facility] Estimated glomerular filtrat ion rate (GFR) non- AmericanOrdered By: Suzi Saxena on 12-24-2021 GFR/1.73 sq M.predicted among non-blacks MDRD (S/P/Bld) [Vol rate/Area] 56 mL/Min [facility] Globulin Calc (S) [Mass/Vol] Ordered By: Suzi Saxena on 12-24-2021 Globulin (S) [Mass/Vol] 2.8 g/dL [facility] No Panel InformationOrdered By: Suzi Saxena on 12-24-2021 Estimated GFR () > 60 mL/Min [facility] Comment on above: GFR estimated refere nce range: According to KDOQI guidelines, <60 ml/min/1.73m2 is sufficient to diagnose a patient with chronic kidney disease. Pharmacy Creatinine Clearance (Chem N/A [facility] Protein [Mass/volume] in Ser um or PlasmaOrdered By: Suzi Saxena on 12-24-2021 Protein [Mass/Vol] 5.9 g/dL 6.1-7.9 [facility] Serum or plasma alanine klein otransferase measurement without P-5'-P (enzymatic activiOrdered By: Suzi Saxena on 12-24-2021 ALT No additional P-5'-P [Catalytic activity/Vol] 14 U/L 1060 [facility] Serum or plasma albumin/glob ulin mass ratioOrdered By: Suzi Saxena on 12-24-2021 Albumin/Globulin [Mass ratio] 1.1 {ratio} [facility] Serum or plasma alkaline fredi sphatase measurement (enzymatic activity/volume)Ordered By: Suzi Saxena on 12-24-2021 ALP [Catalytic activity/Vol] 52 U/L 32-92 [facility] Serum or plasma anion gap de terminationOrdered By: Suzi Saxena on 12-24-2021 Anion gap [Moles/Vol] 13.0 mmol/L 6.0-15.0 [facility] Serum or plasma aspartate am inotransferase measurement (enzymatic activity/volume)Ordered By: Suzi Saxena on 12-24-2021 AST [Catalytic activity/Vol] 19 U/L 1042 [facility] Serum or plasma calcium jonathan urement (mass/volume)Ordered By: Suzi Saxena on 12-24-2021 Calcium [Mass/Vol] 8.8 mg/dL 8.2-10.2 [facility] Serum or plasma chloride eric surement (moles/volume)Ordered By: Suzi Saxena on 12-24-2021 Chloride [Moles/Vol] 99 mmol/L 95-114 [facility] Serum or plasma glucose jonathan urement (mass/volume)Ordered By: Suzi Saxena on 12-24-2021 Glucose [Mass/Vol] 140 mg/dL 70-100 [facility] Comment on above: ADA recommended refe rence rangeRandom Glucose Reference Range is dependent on time and content of last meal. Glucose of more than 200 mg/dL in a nonstressed, ambulatory subject supports the diagnosis of Diabetes Mellitus. Serum or plasma high density lipoprotein (HDL) cholesterol measurementOrdered By: Suzi Saxena on 12-24-2021 Cholesterol in HDL [Mass/Vol] 35 mg/dL 29-71 [facility] Comment on above: HDL CHOL ATP-III CLA SSIFICATION Cardiovascular RiskHDL > or equal to 60 mg/dL LOWHDL < 40 mg/dL HIGH Serum or plasma potassium me asurement (moles/volume)Ordered By: Suzi Saxena on 12-24-2021 Potassium [Moles/Vol] 4.5 mmol/L 3.5-5.1 [facility] Serum or plasma sodium measu rement (moles/volume)Ordered By: Suzi Saxena on 12-24-2021 Sodium [Moles/Vol] 134 mmol/L 136-146 [facility] Serum or plasma total biliru bin measurement (mass/volume)Ordered By: Suzi Saxena on 12-24-2021 Bilirubin [Mass/Vol] 1.3 mg/dL 0.3-1.2 [facility] Comment on above: Samples from patient s who have taken Naproxen have shown spurious elevation in Total Bilirubin levels. A metabolite of Naproxen, O-desmethylnaproxen, has been shown to interfere with the Bayron-Jacinto method for measuring Total Bilirubin. Serum or plasma total carbon dioxide measurement (moles/volume)Ordered By: Suzi Saxena on 12-24-2021 CO2 [Moles/Vol] 26.5 mmol/L 22.0-30.0 [facility] Serum or plasma total choles terol/high density lipoprotein (HDL) cholesterol mass ratOrdered By: Suzi Saxena on 12-24-2021 Cholesterol.total/Lena sterol in HDL [Mass ratio] 2.9 {ratio} <5.0 [facility] Serum or plasma urea nitroge n measurement (mass/volume)Ordered By: Suzi Saxena on 12-24-2021 Urea nitrogen [Mass/Vol] 29 mg/dL 9-23 [facility] Triglyceride [Mass/volume] i n Serum or PlasmaOrdered By: Suzi Saxena on 12-24-2021 Triglyceride [Mass/Vol] 42 mg/dL 35-149 [facility] Comment on above: TRIG ATP III CLASSIF ICATIONTRIG less than 150 mg/dL NormalTRIG 150-199 mg/dL Borderline highTRIG 200-500 mg/dL High TRIG greater than 500 mg/dL Very highStandard traceable to the Center for Disease Conrtrol and Prevention (CDC) test method. Urine microalbumin measureme nt with detection limit of 20 mg/L or less (mass/volume)Ordered By: Suzi Saxena on 12-24-2021 Albumin DL <= 20 mg/L (U) [Mass/Vol] 0.6 mg/dL 0.0-1.8 [facility] Urine microalbumin/creatinin e mass ratioOrdered By: Suzi Saxena on 12-24-2021 Albumin/Creatinine DL <= 20 mg/L (U) [Mass ratio] 4.0 mg/g 0.0-30.0 [facility] Comment on above: 30-300 mg/g indicate s an increased risk for diabetic nephropathy. Greater than 300 mg/g is consistent with clinical nephropathy. (Am. J. Kidney Disease 1995, 25:107) No Panel InformationOrdered By: Selin Leon on 11-04-2021 Prostate Specific Antigen Total 0.050 ng/mL 0.000-4.000 [facility] A1C HEMOGLOBINon 05-21-2021 HbA1c (Bld) [Mass fraction] 6.2 % [employer] Other Glucose - FINGER STICKon Glucose [Mass/Vol] 93 mg/dL [employer] Other HbA1c (Bld) [Mass fraction]o n 05-21-2021 A1C HEMOGLOBIN [employer] Other XR Spine Cervical Complete*o n 04-19-2021 [...] by Xiang Mukherjee on 04/19/2021 1255 Normal [facility] Perinatal Breastfeeding Assistant XR Spine Lumbar 4+ Views*on 04-19-2021 XR [...] by Xiang Mukherjee on 04/19/2021 1254 Normal [facility] Perinatal Breastfeeding Assistant Creatinine [Mass/volume] in Urineon 12-17-2019 Creatinine (U) [Mass/Vol] 51.1 mg/dL [facility] Comment on above: No reference range e stablished Urine microalbumin measureme nt with detection limit of 20 mg/L or less (mass/volume)on 12-17-2019 Albumin DL <= 20 mg/L (U) [Mass/Vol] 0.2 mg/dL 0.0-1.8 [facility] Urine microalbumin/creatinin e mass ratioon 12-17-2019 Albumin/Creatinine DL <= 20 mg/L (U) [Mass ratio] 3.0 mg/g 0.0-30.0 [facility] Comment on above: 30-300 mg/g indicate s an increased risk for diabetic nephropathy. Greater than 300 mg/g is consistent with clinical nephropathy. (Am. J. Kidney Disease 1995, 25:107) Rapid HIV.on 04-13-2019 HIV. Negative Normal Negative [facility] Comment on above: Result Comment: Resu lts Called To Sheron at [facility] By Alta Britton And Read Back For Confirmation On 04/13/2019 14:18:54 EST. Performed By: #### 1 [id number] #### [facility] (DEFAULT) [address] [place] [address] Internal Control Pass Normal [facility] Comment on above: Performed By: #### 1 [id number] #### [facility] (DEFAULT) [address] [place] [address] C Urineon 04-05-2019 C Urine Urine Culture [...] Tobra S <=4 Verified Tri/Sulf >2/38 Verified Normal [facility] Comment on above: Performed By: #### 1 [id number] #### [facility] (DEFAULT) [address] [place] [address] Progress Note - Nurseon 03-15 Progress Note - Nurse Call patient about needing to change antibiotic, [facility] advised [facility] [address] [facility] [place]. [facility] C[facility] 500mg BID for 7 days by Junior OJEDA [Electronically Signed on: 04/05/2019 10:43 EST] Kayy Gomez [Verified on: 04/05/2019 10:43 EST] Kayy Gomez [facility] Coding Summaryon 04-04-2019 Coding Summary CODING DATE: 04/04/2019 [facility] STATUS: Home PAYOR: Medicare ADMIT DX: REASON [...] Jackie Wells Date Saved: 04/04/2019 10:17 am [facility] ED Clinical Summaryon 2019 ED Clinical Summary [facility] ? Urgent Care [address] [place] [address] Clinical Summary PERSON INFORMATION Name: ELLIS BRAXTON Age: 63 Years Sex: MALE : 1955 MRN: Acct#: Visit Reason: Urinary frequency; UC - Sinus Pain or Congestion; PAINFUL URINATION, SINUS PAIN/COGNESTION Arrival: 04/03/2019 10:30:00 Discharge: 04/03/2019 11:55:00 LOS: 000 01:25 Check In: 04/03/2019 10:30:00 Checkout: 04/03/2019 11:55:00 Address: [facility] [place] [address] PCP: Epifanio Montelongo PROVIDER INFORMATION Provider Role [...] Home PATIENT EDUCATION INFORMATION Instructions: Sinusitis, Adult, [id number]; Urine Culture and Sensitivity Testing; Urinary Tract Infection, Adult, [id number] Follow-Up: With: Address: When: Epifanio Montelongo [address] [place] [address] Business (1) Within 2 to 4 days [...] verbalizes understanding of instructions given Comment: Normal [facility] ED Patient Summaryon 020 ED Patient Summary [facility] ? Urgent Care [address] [place] [address] PATIENT DISCHARGE INSTRUCTIONS Patient Information Name: ELLIS BRAXTON Age: 63 Years Date of : 1955 Reason For Visit: Urinary frequency; UC - Sinus Pain or Congestion; PAINFUL URINATION, SINUS PAIN/COGNESTION Arrival Time: 04/03/2019 10:30:00 Primary Care Physician: Epifanio Montelongo Attending Physician: Amee Tirado PA-C Comment: Patient Education With: Address: When: Epifanio Montelongo [address] [place], [place] [address] Business (1) Within 2 to 4 days [...] home: Medicines ? 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 ? Do not smoke. Avoid being around [...] 08/16/2008 Document Revised: 09/09/2017 Document Reviewed: 12/24/2015 [employer] Patient Education ? 2019 [employer]. Urine Culture and Sensitivity Testing Why am [...] 03/25/2005 Document Revised: 11/10/2017 Document Reviewed: 11/10/2017 [employer] Patient Education ? 2019 [employer]. Urinary Tract Infection, Adult A urinary tract infection (UTI) is an infection of any part of the urinary tract. The urinary tract includes the: ? Kidneys. ? Ureters. ? Bladder. ? Urethra. These organs make, store, and get rid of pee (urine) in the body. Follow these instructions at home: ? Take jlse-zvt-aavwwej and prescription medicines only as told by [...] 08/16/2008 Document Revised: 08/23/2017 Document Reviewed: 01/19/2016 [employer] Patient Education ? 2019 [employer] Medication Information: The exam and treatment you received today in the [facility] were for an urgent problem and are not intended as complete care. It is important for you to follow up with a doctor, nurse practitioner, or physician?s delinquent tax collector assistant for ongoing care. If your symptoms become [...] so we can reach you if necessary. [facility] Emergency Department has provided you with a complete list of medications post discharge. Please inform your psychology assistant/provider of your visit and for further instruction on these medications. Any specific questions regarding your chronic medications and dosages should be discussed with your primary care physician(s) and/or pharmacist. New Medications [facility]/pharmacy #[id number], [address], [place] [id number], [phone] nitrofurantoin (Macrobid 100 mg oral capsule) 1 [...] Visit UC - Sinus Pain or Congestion ([id number]) Urinary frequency ([id number]) Urinary tract infection (N39.0) Viral sinusitis (J32.9) [...] Stop date 04/03/19 10:56:00 EST, Nurse collect, [id number] Radiology Cardiology Viruses or Bacteria What?s got [...] for Disease Control and Prevention November 2013 [facility] Patient Handouton 04-03-2019 Patient Handout Patient [...] home: Medicines ? 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 ? Do not smoke. Avoid being around [...] 08/16/2008 Document Revised: 09/09/2017 Document Reviewed: 12/24/2015 [employer] Patient Education ? 2019 [employer]. Urine Culture and Sensitivity Testing Why am [...] 03/25/2005 Document Revised: 11/10/2017 Document Reviewed: 11/10/2017 [employer] Patient Education ? 2019 [employer]. Obstetrics and Gynecology Urinary Tract Infection, Adult A urinary tract infection (UTI) is an infection of any part of the urinary tract. The urinary tract includes the: ? Kidneys. ? Ureters. ? Bladder. ? Urethra. These organs make, store, and get rid of pee (urine) in the body. Follow these instructions at home: ? Take oqft-fvm-dtlwskk and prescription medicines only as told by [...] 08/16/2008 Document Revised: 08/23/2017 Document Reviewed: 01/19/2016 [employer] Patient Education ? 2019 [employer]. [facility] UA Lqjkl2cr 04-03-2019 RBC (U) [#/Vol] 5-10 [facility] Comment on above: Order Comment: Urina lysis Microscopic order added on by [employer] Expert Rules system. Performed By: #### 1 [id number], [id number] #### [facility] (DEFAULT) [address] [place] [address] UA Amorph. 1+ [facility] Comment on above: Order Comment: Urina lysis Microscopic order added on by [employer] Expert Rules system. Performed By: #### 1 [id number], [id number] #### [facility] (DEFAULT) [address] [place] [address] UA Bacteria Trace [facility] Comment on above: Order Comment: Urina lysis Microscopic order added on by [employer] Expert Rules system. Performed By: #### 1 [id number], [id number], [id number] #### [facility] (DEFAULT) [address] [place] [address] UA Squam Epi Rare [facility] Comment on above: Order Comment: Urina lysis Microscopic order added on by [employer] Expert Rules system. Performed By: #### 1 [id number], [id number], [id number] #### [facility] (DEFAULT) [address] [place] [address] UA WBC >100 [facility] Comment on above: Order Comment: Urina lysis Microscopic order added on by [employer] Expert Rules system. Performed By: #### 1 [id number], [id number], [id number] #### [facility] (DEFAULT) [address] [place] [address] UA w Culture if Ind Standard on 04-03-2019 Breakpoint UA [facility] Comment on above: Performed By: #### 1 [id number], [id number], [id number] #### [facility] (DEFAULT) [address] [place] [address] Color (U) Yellow Normal [facility] Comment on above: Performed By: #### 1 [id number], [id number], [id number] #### [facility] (DEFAULT) [address] [place] [address] Culture? Yes Normal [facility] Comment on above: Performed By: #### 1 [id number], [id number], [id number] #### [facility] (DEFAULT) [address] [place] [address]288 Glucose (U) [Mass/Vol] Negative Normal [facility] Comment on above: Performed By: #### 1 [id number], [id number], [id number] #### [facility] (DEFAULT) [address] [place] [address] 32341 Ketones Ql (U) Negative Normal [facility] Comment on above: Performed By: #### 1 [id number], [id number], [id number] #### [facility] (DEFAULT) [address] [place] [address] 10975 Micro? Indicated [facility] Comment on above: Performed By: #### 1 [id number], [id number], [id number] #### [facility] (DEFAULT) [address] [place] [address] UA Bilirubin Negative Normal [facility] Comment on above: Performed By: #### 1 [id number], [id number], [id number] #### [facility] (DEFAULT) [address] [place] [address] 02684 UA Blood MODERATE Abnormal NEGATIVE [facility] Comment on above: Performed By: #### 1 [id number], [id number], [id number] #### [facility] (DEFAULT) [address] [place] [address]689 UA Clarity CLEAR Normal CLEAR [facility] Comment on above: Performed By: #### 1 [id number], [id number], [id number] #### [facility] (DEFAULT) [address] [place] [address] UA Leuk Est LARGE Abnormal NEGATIVE [facility] Comment on above: Performed By: #### 1 [id number], [id number], [id number] #### [facility] (DEFAULT) [address] [place] [address]407 UA Nitrite Negative Normal NEGATIVE [facility] Comment on above: Performed By: #### 1 [id number], [id number], [id number] #### [facility] (DEFAULT) [address] [place] [address]127 UA pH 6.0 Normal 5-8 [facility] Comment on above: Performed By: #### 1 [id number], [id number], [id number] #### [facility] (DEFAULT) [address] [place] [address] 89101 UA Protein 30 mg/dL Abnormal NEGATIVE [facility] Comment on above: Performed By: #### 1 [id number], [id number], [id number] #### [facility] (DEFAULT) [address] [place] [address] 25548 UA Spec Grav 1.020 Normal 1.001-1.035 [facility] Comment on above: Performed By: #### 1 [id number], [id number], [id number] #### [facility] (DEFAULT) [address] [place] [address] 489[address] UA Urobilinogen 0.2 mg/dL Normal 0.2-1.0 [facility] Comment on above: Performed By: #### 1 [id number], [id number], [id number] #### [facility] (DEFAULT) [address] [place] [address] 82639 Urine Source Clean Catch Normal [facility] Comment on above: Performed By: #### 1 [id number], [id number], [id number] #### [facility] (DEFAULT) [address] [place] [address]9875 Urgent Care Note- Provideron 04-03-2019 Urgent Care [...] . Impression and Plan Diagnosis Viral sinusitis (GWH64-IR J32.9, Discharge, Medical) Complaint of UC - Sinus Pain or Congestion (PNED [id number], Reason For Visit, Medical) Complaint of Urinary frequency (PNED [id number], Reason For Visit, Medical) Viral sinusitis (UNR94-LK J32.9, Discharge, Medical) Urinary tract infection (BOI74-MR N39.0, Discharge, Medical) Plan Condition: Stable. Disposition: Discharged: Time 04/03/2019 11:50:00, to home. Prescriptions: Launch prescriptions Pharmacy: Macrobid 100 mg oral capsule (Prescribe): 100 mg = 1 cap(s), PO, BID, for 5 day(s), 10 cap(s), 0 Refill(s). Patient was given the following educational materials: Urinary Tract Infection, Adult, Nsru-rw-Qase, Urine Culture and Sensitivity Testing, Sinusitis, Adult, Ggbg-yb-Lkwf, Sinusitis, Adult, Tqfi-fa-Oqmz, Urine Culture and Sensitivity Testing, Urinary Tract Infection, Adult, Omwb-fh-Payl. Follow up with: Epifanio Montelongo Within 2 [...] prescription, Patient indicated understanding of instructions. Normal [facility] Urgent Care Rec[facility] 020 Urgent Care Record [facility] ? Urgent Care [address] [place] [address] PATIENT DISCHARGE INSTRUCTIONS Patient Information Name: ELLIS BRAXTON Age: 63 Years Date of : 1955 Reason For Visit: Urinary frequency; UC - Sinus Pain or Congestion; PAINFUL URINATION, SINUS PAIN/COGNESTION Arrival Time: 04/03/2019 10:30:00 Primary Care Physician: Epifanio Montelongo Attending Physician: Amee Tirado PA-C Comment: Visit Diagnosis: Diagnoses This Visit UC - Sinus Pain or Congestion ([id number]) Urinary frequency ([id number]) Urinary tract infection (N39.0) Viral sinusitis (J32.9) [...] legal documents With: Address: When: Epifanio Montelongo [address] [place] [address] Business (1) Within 2 to 4 days [...] and treatment you received today in the [facility] were for an urgent problem and are not intended as complete care. It is important for you to follow up with a doctor, nurse practitioner, or physician?s delinquent tax collector assistant for ongoing care. If your symptoms become [...] so we can reach you if necessary. [facility] has provided you with a complete list of medications post discharge. Please inform your psychology assistant/provider of your visit and for further instruction on these medications. Any specific questions regarding your chronic medications and dosages should be discussed with your primary care physician(s) and/or pharmacist. New Medications [facility]/pharmacy #[id number], [address], [place] [id number], [phone] nitrofurantoin (Macrobid 100 mg oral capsule) 1 [...] home: Medicines ? 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 ? Do not smoke. Avoid being around [...] 08/16/2008 Document Revised: 09/09/2017 Document Reviewed: 12/24/2015 [employer] Patient Education ? 2019 [employer]. Urine Culture and Sensitivity Testing Why am [...] 03/25/2005 Document Revised: 11/10/2017 Document Reviewed: 11/10/2017 [employer] Patient Education ? 2019 [employer]. Urinary Tract Infection, Adult A urinary tract infection (UTI) is an infection of any part of the urinary tract. The urinary tract includes the: ? Kidneys. ? Ureters. ? Bladder. ? Urethra. These organs make, store, and get rid of pee (urine) in the body. Follow these instructions at home: ? Take fero-slb-rvjrdrj and prescription medicines only as told by [...] 08/16/2008 Document Revised: 08/23/2017 Document Reviewed: 01/19/2016 [employer] Patient Education ? 2019 [employer] Viruses or Bacteria What?s got you [...] for Disease Control and Prevention November 2013 [facility] Body fluid albumin measureme nt (mass/volume)on 04-03-2018 Albumin (Body fld) [Mass/Vol] 3.8 g/dL 3.2-5.5 [facility] Cholesterol [Mass/volume] in Serum or Plasmaon 04-03-2018 Cholesterol [Mass/Vol] 107 mg/dL 140-200 [facility] Comment on above: Chol less than 200 m g/dl low risk Chol 201-239 mg/dl borderline risk Chol 240 mg/dl and greater high risk Cholesterol in LDL Calc [Mas s/Vol]on 04-03-2018 Cholesterol in LDL [Mass/Vol] 55 mg/dL 0-100 [facility] Comment on above: LDL ATP III CLASSIFI CATION LDL less than 100 mg/dL Optimal LDL 100-129 mg/dL Near or above optimal LDL 130-159 mg/dL Borderline high LDL 160-189 mg/dL High LDL greater than 189 mg/dL Very high Cholesterol in VLDL Calc [Ma ss/Vol]on 04-03-2018 Cholesterol in VLDL [Mass/Vol] 6 mg/dL [facility] Creatinine and Glomerular fi ltration rate.predicted panel (S/P/Bld)on 04-03-2018 Creatinine [Mass/Vol] 0.83 mg/dL 0.64-1.27 [facility] Estimated glomerular filtrat ion rate (GFR) non- Americanon 04-03-2018 GFR/1.73 sq M.predicted among non-blacks MDRD (S/P/Bld) [Vol rate/Area] mL/min/{1.73_m2} [facility] Laboratory - Chemistry and C hemistry - challengeon 04-03-2018 Cholesterol.total/Lena sterol in HDL [Mass ratio] 2.3 {ratio} <5.0 [facility] GFR/1.73 sq M.predicted among blacks MDRD (S/P/Bld) [Vol rate/Area] mL/min/{1.73_m2} [facility] Comment on above: GFR estimated refere nce range: According to KDOQI guidelines, <60 ml/min/1.73m2 is sufficient to diagnose a patient with chronic kidney disease. No Panel Informationon 04-03 Pharmacy Creatinine Clearance (Chem N/A [facility] Phosphate [Mass/volume] in S curly or Plasmaon 04-03-2018 Phosphate [Mass/Vol] 3.6 mg/dL 2.5-4.6 [facility] Serum or plasma calcidiol me asurement (mass/volume)on 04-03-2018 25-hydroxyvitamin D3 [Mass/Vol] 31.8 ng/mL 30-100 [facility] Comment on above: VITAMIN D STATUS 25( [place])VITAMIN D RANGE (ng/mL) Deficient <20 Insufficient 20 to <30 Sufficient 30 to 100 Reference: Annalisa MF,Seamus NC, Ana CHEUNG, et al. Evaluation,treatment, and prevention of vitamin D deficiency; an Endocrine Society clinical practice guideline. JCEM. 2010; 96(7):1911-30. Serum or plasma calcium jonathan urement (mass/volume)on 04-03-2018 Calcium [Mass/Vol] 8.9 mg/dL 8.2-10.2 [facility] Serum or plasma chloride eric surement (moles/volume)on 04-03-2018 Chloride [Moles/Vol] 102 mmol/L 95-114 [facility] Serum or plasma glucose jonathan urement (mass/volume)on 04-03-2018 Glucose [Mass/Vol] 80 mg/dL 70-100 [facility] Comment on above: ADA recommended refe rence range Random Glucose Reference Range is dependent on time and content of last meal. Glucose of more than 200 mg/dL in a nonstressed, ambulatory subject supports the diagnosis of Diabetes Mellitus. Serum or plasma high density lipoprotein (HDL) cholesterol measurementon 04-03-2018 Cholesterol in HDL [Mass/Vol] 46 mg/dL 29-71 [facility] Comment on above: HDL CHOL ATP-III CLA SSIFICATION Cardiovascular Risk HDL > or equal to 60 mg/dL LOW HDL < 40 mg/dL HIGH Serum or plasma potassium me asurement (moles/volume)on 04-03-2018 Potassium [Moles/Vol] 4.4 mmol/L 3.5-5.1 [facility] Serum or plasma sodium measu rement (moles/volume)on 04-03-2018 Sodium [Moles/Vol] 139 mmol/L 136-146 [facility] Serum or plasma total carbon dioxide measurement (moles/volume)on 04-03-2018 CO2 [Moles/Vol] 28.5 mmol/L 22.0-30.0 [facility] Serum or plasma urea nitroge n measurement (mass/volume)on 04-03-2018 Urea nitrogen [Mass/Vol] 16 mg/dL 9-23 [facility] Triglyceride [Mass/volume] i n Serum or Plasmaon 04-03-2018 Triglyceride [Mass/Vol] 32 mg/dL 35-149 [facility] Comment on above: TRIG ATP III CLASSIF ICATION TRIG less than 150 mg/dL Normal TRIG 150-199 mg/dL Borderline high TRIG 200-500 mg/dL High TRIG greater than 500 mg/dL Very high Standard traceable to the Center for Disease Conrtrol and Prevention (CDC) test method. Vital Signs Date Time Vital Sign Value Performing Clinician Facility 03-18-2023 10:30-0500 Body height 185.42 cm Epifanio Montelongo Other [facility] Other 03-18-2023 10:30-0500 Body mass index (BMI) [Ratio] 33.9 kg/m2 Epifanio Montelongo Other [facility] Other 03-18-2023 10:30-0500 Body weight 116.58 kg Epifanio Ball Other [facility] Other 03-18-2023 10:30-0500 Diastolic blood pressure 75 mm[Hg] Epifanio Ball Other [facility] Other 03-18-2023 10:30-0500 Respiratory rate 12 /min Epifanio Ball Other [facility] Other 03-18-2023 10:30-0500 Systolic blood pressure 116 mm[Hg] Epifanio Ball Other [facility] Other 03-09-2023 14:15-0500 Body height 185.42 cm Epifanio Ball Other [facility] Other 03-09-2023 14:15-0500 Body mass index (BMI) [Ratio] 33.01 kg/m2 Epifanio Ball Other [facility] Other 03-09-2023 14:15-0500 Body weight 113.49 kg Epifanio Ball Other [facility] Other 03-09-2023 14:15-0500 Diastolic blood pressure 60 mm[Hg] Epifanio Ball Other [facility] Other 03-09-2023 14:15-0500 Respiratory rate 12 /min Epifanio Ball Other [facility] Other 03-09-2023 14:15-0500 Systolic blood pressure 97 mm[Hg] Epifanio Ball Other [facility] Other 02-22-2023 08:37-0500 Blood Pressure Location Mayank URBAN [facility] 02-22-2023 08:37-0500 Diastolic blood pressure 80 mm[Hg] Mayank [facility]RB[facility] 02-22-2023 08:37-0500 Heart rate 74 /min Mayank URB[facility] 02-22-2023 08:37-0500 Systolic blood pressure 130 mm[Hg] Mayank URB[facility] 02-02-2023 08:45-0500 Body height 185.42 cm Tondra Mapus Other [facility] Other 02-02-2023 08:45-0500 Body mass index (BMI) [Ratio] 32.97 kg/m2 Tondra Mapus Other [facility] Other 02-02-2023 08:45-0500 Body weight 113.35 kg Tondra Mapus Other [facility] Other 02-02-2023 08:45-0500 Diastolic blood pressure 64 mm[Hg] Tondra Mapus Other [facility] Other 02-02-2023 08:45-0500 Respiratory rate 18 /min Tondra Mapus Other [facility] Other 02-02-2023 08:45-0500 SaO2% (BldA) [Mass fraction] 94 % Tondra Mapus Other [facility] Other 02-02-2023 08:45-0500 Systolic blood pressure 104 mm[Hg] Tondra Mapus Other [facility] Other 11-17-2022 11:15-0400 Body height 185.42 cm Epifanio Ball Other [facility] Other 11-17-2022 11:15-0400 Body mass index (BMI) [Ratio] 33.3 kg/m2 Epifanio Ball Other [facility] Other 11-17-2022 11:15-0400 Body weight 114.49 kg Epifanio Ball Other [facility] Other 11-17-2022 11:15-0400 Diastolic blood pressure 61 mm[Hg] Epifanio Ball Other [facility] Other 11-17-2022 11:15-0400 Respiratory rate 12 /min Epifanio Ball Other [facility] Other 11-17-2022 11:15-0400 Systolic blood pressure 112 mm[Hg] Epifanio Ball Other [facility] Other 09-15-2022 10:00-0400 Body height 185.42 cm Epifanio Ball Other [facility] Other 09-15-2022 10:00-0400 Body mass index (BMI) [Ratio] 33.32 kg/m2 Epifanio Ball Other [facility] Other 09-15-2022 10:00-0400 Body weight 114.58 kg Epifanio Ball Other [facility] Other 09-15-2022 10:00-0400 Diastolic blood pressure 65 mm[Hg] Epifanio Ball Other [facility] Other 09-15-2022 10:00-0400 Respiratory rate 12 /min Epifanio Ball Other [facility] Other 09-15-2022 10:00-0400 Systolic blood pressure 100 mm[Hg] Epifanio Ball Other [facility] Other 09-10-2022 14:02-0400 Body height 185.4 cm Debra Bond MD Work Phone: [facility] 09-10-2022 14:02-0400 Body weight 112.4 kg Debra Bond MD Work Phone: [facility] 09-10-2022 14:02-0400 Diastolic blood pressure 55 mm[Hg] Debra Bond MD Work Phone: [facility] 09-10-2022 14:02-0400 Heart rate 58 /min Debra Bond MD Work Phone: [facility] 09-10-2022 14:02-0400 SaO2% (BldA) [Mass fraction] 98 % Debra Bond MD Work Phone: [facility] 09-10-2022 14:02-0400 Systolic blood pressure 116 mm[Hg] Debra Bond MD Work Phone: [facility] 07-13-2022 15:00-0400 Body height 185.42 cm Tondra Mapus Other [facility] Other 07-13-2022 15:00-0400 Body mass index (BMI) [Ratio] 32.58 kg/m2 Tondra Mapus Other [facility] Other 07-13-2022 15:00-0400 Body weight 112.04 kg Tondra Mapus Other [facility] Other 07-13-2022 15:00-0400 Diastolic blood pressure 54 mm[Hg] Tondra Mapus Other [facility] Other 07-13-2022 15:00-0400 Respiratory rate 18 /min Tondra Mapus Other [facility] Other 07-13-2022 15:00-0400 SaO2% (BldA) [Mass fraction] 96 % Tondra Mapus Other [facility] Other 07-13-2022 15:00-0400 Systolic blood pressure 113 mm[Hg] Tondra Mapus Other [facility] Other 04-06-2022 09:30-0500 Body height 185.42 cm Tondra Mapus Other [facility] Other 04-06-2022 09:30-0500 Body mass index (BMI) [Ratio] 31.7 kg/m2 Tondra Mapus Other [facility] Other 04-06-2022 09:30-0500 Body weight 109 kg Tondra Mapus Other [facility] Other 04-06-2022 09:30-0500 Diastolic blood pressure 61 mm[Hg] Tondra Mapus Other [facility] Other 04-06-2022 09:30-0500 Respiratory rate 18 /min Tondra Mapus Other [facility] Other 04-06-2022 09:30-0500 SaO2% (BldA) [Mass fraction] 96 % Tondra Mapus Other [facility] Other 04-06-2022 09:30-0500 Systolic blood pressure 94 mm[Hg] Tondra Mapus Other [facility] Other 03-17-2022 12:00-0500 Body height 185.42 cm Epifanio Ball Other [facility] Other 03-17-2022 12:00-0500 Body mass index (BMI) [Ratio] 31.67 kg/m2 Epifanio Ball Other [facility] Other 03-17-2022 12:00-0500 Body weight 108.91 kg Epifanio Ball Other [facility] Other 03-17-2022 12:00-0500 Diastolic blood pressure 70 mm[Hg] Epifanio Ball Other [facility] Other 03-17-2022 12:00-0500 Respiratory rate 16 /min Epifanio Ball Other [facility] Other 03-17-2022 12:00-0500 Systolic blood pressure 112 mm[Hg] Peifanio Ball Other [facility] Other 12-28-2021 11:15-0400 Body height 185.42 cm Tondra Mapus Other [facility] Other 12-28-2021 11:15-0400 Body mass index (BMI) [Ratio] 30.74 kg/m2 Tondra Mapus Other [facility] Other 12-28-2021 11:15-0400 Body weight 105.69 kg Tondra Mapus Other [facility] Other 12-28-2021 11:15-0400 Diastolic blood pressure 41 mm[Hg] Tondra Mapus Other [facility] Other 12-28-2021 11:15-0400 Respiratory rate 16 /min Tondra Mapus Other [facility] Other 12-28-2021 11:15-0400 SaO2% (BldA) [Mass fraction] 98 % Tondra Mapus Other [facility] Other 12-28-2021 11:15-0400 Systolic blood pressure 89 mm[Hg] Tondra Mapus Other [facility] Other 10-16-2021 10:19-0400 Body height 185.4 cm Debra Bond MD Work Phone: [facility] 10-16-2021 10:19-0400 Body weight 107.05 kg Debra Bond MD Work Phone: [facility] 10-16-2021 10:19-0400 Diastolic blood pressure 55 mm[Hg] Debra Bond MD Work Phone: [facility] 10-16-2021 10:19-0400 Heart rate 65 /min Dbera Bond MD Work Phone: [facility] 10-16-2021 10:19-0400 SaO2% (BldA) [Mass fraction] 98 % Debra Bond MD Work Phone: [facility] 10-16-2021 10:19-0400 Systolic blood pressure 105 mm[Hg] Debra Bond MD Work Phone: [facility] 05-21-2021 14:00-0500 Body height 185.42 cm Tondra Mapus Other [facility] Other 05-21-2021 14:00-0500 Body mass index (BMI) [Ratio] 32.58 kg/m2 Tondra Mapus Other [facility] Other 05-21-2021 14:00-0500 Body weight 112.04 kg Tondra Mapus Other [facility] Other 05-21-2021 14:00-0500 Diastolic blood pressure 57 mm[Hg] Tondra Mapus Other [employer] Other 05-21-2021 14:00-0500 Respiratory rate 16 /min Tondra Mapus Other [employer] Other 05-21-2021 14:00-0500 SaO2% (BldA) [Mass fraction] 98 % Tondra Mapus Other [employer] Other 05-21-2021 14:00-0500 Systolic blood pressure 96 mm[Hg] Tondra Mapus Other [employer] Other 02-11-2021 11:15-0500 Body height 185.42 cm Tondra Mapus Other [employer] Other 02-11-2021 11:15-0500 Body mass index (BMI) [Ratio] 31 kg/m2 Tondra Mapus Other [employer] Other 02-11-2021 11:15-0500 Body weight 106.6 kg Tondra Mapus Other [employer] Other 02-11-2021 11:15-0500 Diastolic blood pressure 47 mm[Hg] Tondra Mapus Other [employer] Other 02-11-2021 11:15-0500 Respiratory rate 20 /min Tondra Mapus Other [employer] Other 02-11-2021 11:15-0500 SaO2% (BldA) [Mass fraction] 96 % Tondra Mapus Other [employer] Other 02-11-2021 11:15-0500 Systolic blood pressure 92 mm[Hg] Tondra Mapus Other [employer] Other 01-08-2021 11:00-0400 Body height 185.42 cm Tondra Mapus Other [employer] Other 01-08-2021 11:00-0400 Body mass index (BMI) [Ratio] 30.87 kg/m2 Tondra Mapus Other [employer] Other 01-08-2021 11:00-0400 Body weight 106.14 kg Tondra Mapus Other [employer] Other 01-08-2021 11:00-0400 Diastolic blood pressure 62 mm[Hg] Tondra Mapus Other [employer] Other 01-08-2021 11:00-0400 Respiratory rate 20 /min Tondra Mapus Other [employer] Other 01-08-2021 11:00-0400 SaO2% (BldA) [Mass fraction] 97 % Tondra Mapus Other [employer] Other 01-08-2021 11:00-0400 Systolic blood pressure 104 mm[Hg] Tondra Mapus Other [employer] Other Encounters Encounter Date Encounter Type Care Provider Facility Start: 02-29-2024 ambulatory Mayank Tanner ty:LORENA Carmen Start: 03-23-2023 End: 03-23-2023 ambulatory LEI GOMEZ Not Available Start: 03-22-2023 End: 03-22-2023 ambulatory Epifanio Montelogno Other [employer] Other Start: 03-22-2023 Telephone encounter Epifanio Montelongo [facility] Start: 03-21-2023 End: 03-21-2023 ambulatory Suzi Saxena Other [employer] Other Start: 03-21-2023 Telephone encounter Suzi Saxena [facility] Start: 03-18-2023 End: 03-18-2023 ambulatory Epifanio Montelongo Other [employer] Other Start: 03-18-2023 Patient encounter procedure Epifanio Montelongo [facility] Start: 03-15-2023 End: 03-15-2023 ambulatory Epifanio Montelongo Other [employer] Other Start: 03-15-2023 Telephone encounter Epifanio Montelongo [facility] Start: 03-12-2023 End: 03-12-2023 ambulatory Epifanio Montelongo Other [employer] Other Start: 03-12-2023 Telephone encounter Epifanio Montelongo [facility] Start: 03-10-2023 End: 03-10-2023 ambulatory Epifanio Montelongo Other [employer] Other Start: 03-10-2023 Telephone encounter Epifanio Montelongo [facility] Start: 03-09-2023 End: 03-09-2023 ambulatory Epifanio Montelongo Other [employer] Other Start: 03-09-2023 Office outpatient vi sit 15 minutes Epifanio Montelongo [facility] Start: 03-09-2023 Telephone encounter Epifanio Montelongo [facility] Start: 02-28-2023 Refill Debra Bond MD Work Phone: Cardiology Comment on above: Refill Request Start: 02-22-2023 End: 02-23-2023 ambulatory Mayank URBAN Facility:[facility] Start: 02-22-2023 End: 02-22-2023 Patient encounter procedure Mayank Quijano URBAN [facility] Start: 02-16-2023 End: 02-16-2023 ambulatory Ema Orze Facility:[facility] Start: 02-02-2023 (DM) Diabetes Tondra Patriciaus [facility] Start: 02-02-2023 End: 02-02-2023 ambulatory Epifanio Reginald [employer] Other Start: 01-08-2023 Refill Debra Bond MD Work Phone: Cardiology Comment on above: Refill Request Start: 12-09-2022 Office outpatient vi sit 15 minutes Epifanio Montelongo [facility] Start: 12-09-2022 End: 12-09-2022 ambulatory Debra Bond MD Work Phone: [employer] Other Comment on above: Chronic systolic hea rt failure (HCC) (Primary Dx); Ischemic cardiomyopathy; Coronary artery disease involving [place] coronary artery of [place] heart without angina pectoris; Type 1 diabetes mellitus with diabetic polyneuropathy (HCC); Dyslipidemia; Peripheral vascular disease, unspecified (HCC); Obesity, Class I, BMI 30-34.9 Start: 12-09-2022 End: 12-09-2022 Telemedicine consultation with patient Debra Bond MD Work Phone: [facility] Start: 11-17-2022 End: 11-17-2022 ambulatory Epifanio Montelongo Other [employer] Other Start: 11-17-2022 Office outpatient vi sit 15 minutes Epifanio Montelongo [facility] Start: 11-17-2022 Telephone encounter Epifanio Montelongo [facility] Start: 10-18-2022 Telephone encounter Suzi Saxena [facility] Start: 10-18-2022 End: 10-18-2022 ambulatory DO Epifanio Montelongo Work Phone: [employer] Other Start: 10-18-2022 End: 10-18-2022 Patient encounter procedure DO Epfianio Montelongo Work Phone: [facility] [place] Work Phone: Start: 09-21-2022 Refill Debra Bond MD Work Phone: Cardiology Comment on above: Rx Refills Start: 09-15-2022 End: 09-15-2022 ambulatory Epifanio Montelongo Other [employer] Other Start: 09-15-2022 Office outpatient vi sit 25 minutes Epifanio Montelongo [facility] Start: 09-15-2022 Telephone encounter Epifanio Montelongo [facility] Start: 09-10-2022 End: 09-11-2022 ambulatory DEBRA BOND Facility:[facility] Start: 09-10-2022 End: 09-10-2022 Patient encounter procedure Debra Bond MD Work Phone: Cardiology Comment on above: Chronic systolic hea rt failure (HCC); Ischemic cardiomyopathy; Coronary artery disease involving [place] coronary artery of [place] heart without angina pectoris; Type 1 diabetes mellitus with diabetic polyneuropathy (HCC); Dyslipidemia; Peripheral vascular disease, unspecified (HCC) Start: 09-10-2022 End: 09-10-2022 Patient encounter procedure Hvi Discharge Echo [id number] Work Phone: Vascular Medicine Comment on above: Chronic systolic hea rt failure (HCC); Ischemic cardiomyopathy; Coronary artery disease involving [place] coronary artery of [place] heart without angina pectoris Start: 08-19-2022 Refill Debra Bond MD Work Phone: Cardiology Comment on above: Refill Request Start: 07-26-2022 End: 07-26-2022 ambulatory Epifanio Montelongo Other [employer] Other Start: 07-26-2022 Nursing evaluation o f patient and report Epifanio Montelongo [facility] Start: 07-26-2022 Telephone encounter Tondra Saxena [facility] Start: 07-13-2022 (DM) Diabetes Tona Banner [facility] Start: 07-13-2022 End: 07-13-2022 ambulatory Tondra Mapus Other [employer] Other Start: 04-06-2022 (PUMP/CGM) Pump / Sensor Tondra Mapu s [facility] Start: 04-06-2022 End: 04-06-2022 ambulatory Tondra Mapus Other [employer] Other Start: 03-26-2022 End: 03-27-2022 ambulatory DEBRA BOND Facility:[facility] Start: 03-17-2022 End: 03-17-2022 ambulatory Epifanio Montelongo Other [employer] Other Start: 03-17-2022 Patient encounter procedure Epifanio Montelongo [facility] Start: 02-26-2022 Orders Only Debra Bond MD Work Phone: Cardiology Comment on above: Chronic systolic hea rt failure (HCC) (Primary Dx); Ischemic cardiomyopathy Start: 02-18-2022 End: 02-18-2022 ambulatory Tondra Mapus Other [employer] Other Start: 02-18-2022 Telephone encounter Tondra Mapus [facility] Start: 01-21-2022 End: 01-21-2022 ambulatory Debra Bond MD Work Phone: Cardiology Comment on above: Ischemic cardiomyopa thy (Primary Dx); Chronic systolic heart failure (HCC); Coronary artery disease involving [place] coronary artery of [place] heart without angina pectoris; Type 1 diabetes mellitus with diabetic polyneuropathy (HCC); Dyslipidemia Start: 01-21-2022 End: 01-21-2022 Telemedicine consultation with patient Debra Bond MD Work Phone: [facility] Start: 12-29-2021 Telephone encounter Debra Bond MD Work Phone: Cardiology Comment on above: Outside Labs Receive d 12/28 Start: 12-28-2021 (PUMP/CGM) Pump / Sensor Tondra Mapu s [facility] Start: 12-28-2021 End: 12-28-2021 ambulatory Tondra Mapus [facility] Other Start: 12-28-2021 Telephone encounter Debra Bond MD Work Phone: Cardiology Comment on above: Counseling (/) Start: 12-24-2021 End: 12-24-2021 ambulatory DO Epifanio Montelongo Work Phone: [facility] Work Phone: Start: 12-24-2021 End: 12-24-2021 Patient encounter procedure DO Epifanio Montelongo Work Phone: [facility] [place] Start: 11-30-2021 End: 11-30-2021 Patient encounter procedure Xiang KEENAN [facility] Start: 11-04-2021 End: 11-04-2021 Patient encounter procedure DO Epifanio Montelongo Work Phone: [facility] Start: 10-16-2021 End: 10-16-2021 Patient encounter procedure Debra Bond MD Work Phone: Cardiology Comment on above: Chronic systolic hea rt failure (HCC) (Primary Dx); Ischemic cardiomyopathy; Coronary artery disease involving [place] coronary artery of [place] heart without angina pectoris; Obesity, Class I, BMI 30-34.9; Type 1 diabetes mellitus with diabetic polyneuropathy (HCC); Dyslipidemia Start: 09-23-2021 Refill Debra Bond MD Work Phone: Cardiology Comment on above: Refill Request Start: 09-16-2021 Registered Recurring DO Carmen Montelongo Work Phone: [facility] Start: 07-13-2021 End: 07-13-2021 ambulatory Tondra Mapus Other [facility] Other Start: 07-13-2021 Telephone encounter Tondra Mapus [facility] Start: 05-30-2021 ambulatory Debra Bond MD Work Phone: Cardiology Comment on above: Weight gain Start: 05-21-2021 (PUMP/CGM) Pump / Sensor Tondra Mapu s [facility] Start: 05-21-2021 End: 05-21-2021 ambulatory Tondra Mapus Other [employer] Other Start: 04-21-2021 End: 04-21-2021 ambulatory Tondra Mapus Other [employer] Other Start: 04-21-2021 Telephone encounter Tondra Mapus [facility] Start: 04-20-2021 End: 04-20-2021 ambulatory Tondra Mapus Other [employer] Other Start: 04-20-2021 Telephone encounter Tondra Mapus [facility] Start: 04-13-2021 Adult health examination Tondr a Mapus Other [employer] Other Start: 02-11-2021 (PUMP/CGM) Pump / Sensor Tondra Mapu s [facility] Start: 02-11-2021 End: 02-11-2021 ambulatory Tondra Mapus Other [employer] Other Start: 02-11-2021 Telephone encounter Tondra Mapus [facility] Start: 01-08-2021 Nursing evaluation o f patient and report Tondra Mapus [facility] Start: 11-19-2020 End: 11-19-2020 ambulatory Tondra Mapus Other [employer] Other Start: 11-19-2020 Telephone encounter Tondra Mapus [...] Bond MD Work Phone: Start: 07-09-2020 Cystoscopy [facility] Start: 01-29-2019 Cysto/UD [facility] Start: 06-18-2015 Implantation of radioactive seed into prostate [facility] Start: 12-24-2014 General examination of patient Suzi Saxena Other Start: 04-15-2014 Pre-surgery evaluation Suzi Saxena Other Start: 04-15-2014 Preoperative cardiovascular examination Suzi Saxena Other Start: 10-04-2011 Vasectomy [facility] Start: 01-18-2011 Transrectal biopsy o f prostate using ultrasound guidance [facility] Comment on above: 07/20/13, 03/03/15 Amputation of toe Xiang ALENA [facility] Comment on above: 2 Toes on Rt Foot Catheterization of b oth left and right heart Xiang KEENAN End: 02-17-2022 Depression screening Suzi Saxena Other Placement of stent Xiang VALENTIN Placement of stent i n cardiac conduit Xiang KEENAN Surgical procedure o n eye proper using laser Xiang KEENAN Plan of Treatment Date Care Activity Detail Author Start: 08-06-2030 Urine microalbumin profile DTaP,Tdap,Td Vaccine (3 - Td or Tdap) [facility] Start: 07-25-2030 Urine microalbumin profile DTAP,TDAP,TD (2 - Td or Tdap) [facility] Start: 03-26-2023 Creatinine measurement Serum Creatin ine [facility] Start: 03-26-2023 SERUM CREATININE SERUM CREATININE [facility] Start: 11-12-2022 Covid-19 Vaccine () Covid-19 Vaccine () [facility] Start: 11-12-2022 Influenza vaccination [facility] Start: 10-16-2022 SERUM CREATININE SERUM CREATININE Cl [facility] Start: 10-10-2022 Adult depression screening assessment DEPRESSION SCREENING [facility] Start: 09-23-2022 PROSTATE CANCER SCREENING DISCUSSION PROSTATE CANCER SCREENING DISCUSSION [facility] Start: 07-14-2022 Adult depression screening assessment DEPRESSION SCREENING [facility] Start: 05-10-2022 Adult depression screening assessment DEPRESSION SCREENING [facility] Start: 04-24-2022 COVID-19 VACCINE (7 - Moderna series) COVID-19 VACCINE (7 - Moderna series) [facility] Start: 03-14-2022 ADVANCE DIRECTIVE DISCUSSION ADVANCE DIRECTIVE DISCUSSION [facility] Start: 03-14-2022 End: 05-14-2022 Comprehensive metabolic 2000 panel - Serum or Plasma COMP METABOLIC PANEL Lab Routine Chronic systolic heart failure (HCC) Ischemic cardiomyopathy Expected: 03/14/2022, Expires: 05/14/[address] [facility] Work Phone: Comment on above: Expected: 03/14/2022 , Expires: 05/14/2022 Start: 03-14-2022 DEPRESSION ASSESSMENT DEPRESSION ASS ESSMENT [facility] Start: 03-14-2022 End: 05-14-2022 Natriuretic peptide.B prohormone N-Terminal [Mass/volume] in Serum or Plasma NT PRO BNP Lab Routine Chronic systolic heart failure (HCC) Ischemic cardiomyopathy Expected: 03/14/2022, Expires: 05/14/[address] [facility] Work Phone: Comment on above: Expected: 03/14/2022 , Expires: 05/14/2022 Start: 11-12-2021 Influenza vaccination INFLUENZA (#1) [facility] Start: 10-16-2021 End: 12-16-2021 Comprehensive metabolic 2000 panel - Serum or Plasma [facility] Work Phone: Comment on above: Expected: 10/16/2021 , Expires: 12/16/2021 Start: 10-16-2021 End: 12-16-2021 Natriuretic peptide.B prohormone N-Terminal [Mass/volume] in Serum or Plasma [facility] Work Phone: Comment on above: Expected: 10/16/2021 , Expires: 12/16/2021 Start: 10-03-2021 HEMOGLOBIN/HEMATOCRIT HEMOGLOBIN/HEM ATOCRIT [facility] Start: 10-03-2021 Hepatitis B surface antibody level LDL CHOLESTEROL [facility] Start: 04-05-2021 Hemoglobin A1c measurement HbA1C [facility] Start: 04-05-2021 Hemoglobin A1c/Hemoglobin.total in Blood HBA1C [facility] Start: 03-14-2021 ADVANCE DIRECTIVE DISCUSSION ADVANCE DIRECTIVE DISCUSSION [facility] Start: 03-14-2021 DEPRESSION ASSESSMENT DEPRESSION ASS ESSMENT [facility] Start: 01-04-2020 SHINGRIX VACCINE (2 of 2) SHINGRIX VACCINE (2 of 2) [facility] Start: 2013 Hepatitis B Vaccine (1 of 3 - Risk 3-dose series) Hepatitis B Vaccine (1 of 3 - Risk 3-dose series) [facility] Start: 2013 RSV Vaccine (1 - 1-d ose 60+ series) RSV Vaccine (1 - 1-dose 60+ series) [facility] Start: 1998 COLOGUARD (FIT-DNA) COLOGUARD (FIT-D NA) [facility] Start: 1998 Colonoscopy COLONOSCOPY [facility] Start: 1998 COLORECTAL CANCER SCREENING COLORECTAL CANCER SCREENING [facility] Start: [address] COLONOGRAPHY [facility] Start: 1998 FECAL OCCULT BLOOD FECAL OCCULT BLOO D [facility] Start: 1998 Screening for malign ant neoplasm of colon [facility] Start: 1998 SIGMOIDOSCOPY SIGMOIDOSCOPY [facility] Start: 07-25-1971 ANNUAL PCP TEAM FISHER REEF NET ANTONETTE DISEASE VISIT ANNUAL PCP TEAM CHRONIC DISEASE VISIT [facility] Start: 07-25-1971 HEPATITIS C SCREENING HEPATITIS C SC [facility] Start: 07-25-1971 Hepatitis C screening Hepatitis C Sc [facility] Start: 07-25-1963 3 comp foot exam completed DIABETIC FOOT EXAM [facility] Start: 07-25-1963 Diabetic foot examination Diabetic Foot Exam [facility] Start: 07-25-1963 Glaucoma screening Dilated Retinal E xam [facility] Start: 07-25-1963 Hepatitis B screening URINE AL BUMIN:CREATININE RATIO [facility] Start: 07-25-1963 Hepatitis C antibody , confirmatory test DILATED RETINAL EXAM [facility] Start: 1955 ABDOMINAL AORTIC ANEURYSM SCREENING ABDOMINAL AORTIC ANEURYSM SCREENING [facility] Start: 1955 Abdominal aortic aneurysm screening Abdominal Aortic Aneurysm Screening [facility] Immunizations Immunization Date Immunization Notes Care Provider Rasheed lopez 11-01-2022 influenza, high dose seasonal, preservative-free Epifanio Montelongo Other [employer] Other 11-01-2022 influenza (HD-IIV4) vaccine, age 65+ yr, high dose, quadrivalent, PF (FLUZONE HIGH-DOSE) Debra Bond MD Work Phone: [facility] Work Phone: 11-01-2022 zoster vaccine recombinant Debra Bond MD Work Phone: [facility] Work Phone: 12-22-2021 COVID-19 original vaccine, age 12+ yr, monovalent (PFIZER-BIONTECH - PURPLE TOP) Debra Bond MD Work Phone: [facility] Work Phone: 04-14-2021 COVID-19 Vaccine Moderna - Documentation Purposes Only Suzi Saxena Other [facility] Other 02-03-2021 SARS-CoV-2 (COVID-19 ) [id number] vaccine Xiang KEENAN [facility] 12-01-2020 influenza nasal, unspecified formulation Debra Bond MD Work Phone: [facility] Work Phone: 12-01-2020 influenza virus vaccine, unspecified formulation Xiang KEENAN [facility] 12-01-2020 influenza, high-dose , quadrivalent vaccine (FLUZONE HIGH DOSE QUADRIVALENT) Debra Bond MD Work Phone: [facility] Work Phone: 08-06-2020 diphtheria, tetanus toxoids and acellular pertussis vaccine, unspecified formulation Suzi Saxena Other [facility] Other 07-25-2020 tetanus toxoid, redu kimberly diphtheria toxoid, and acellular pertussis vaccine, adsorbed Debra Bond MD Work Phone: [facility] Work Phone: 06-20-2020 COVID-19 vaccine, fu ll dose (MODERNA) Debra Bond MD Work Phone: [facility] Work Phone: 05-30-2020 COVID-19 vaccine, fu ll dose (MODERNA) Debra Bond MD Work Phone: [facility] Work Phone: 05-23-2020 COVID-19 Vaccine Moderna - Documentation Purposes Only Suzi Gomez Other [facility] Work Phone: 05-10-2020 SARS-CoV-2 (COVID-19 ) [id number] vaccine [facility] 04-25-2020 COVID-19 Vaccine Moderna - Documentation Purposes Only Suzi Saxena Other [facility] Work Phone: 12-13-2019 influenza virus vaccine, unspecified formulation [facility] 11-13-2019 influenza nasal, unspecified formulation Debra Bond MD Work Phone: [facility] Work Phone: 11-13-2019 influenza virus vaccine, unspecified formulation [facility] 11-13-2019 influenza, high dose seasonal, preservative-free Debra Bond MD Work Phone: [facility] Work Phone: 11-13-2019 pneumococcal conjuga te vaccine, 13 valent Debra Bond MD Work Phone: [facility] Work Phone: 11-09-2019 zoster vaccine recombinant Debra Bond MD Work Phone: [facility] Work Phone: 12-12-2018 influenza virus vaccine, live, attenuated, for intranasal use [facility] 11-01-2018 influenza virus vaccine, split virus (incl. purified surface antigen) Suzi Saxena Other [employer] Other 11-01-2018 pneumococcal polysaccharide vaccine, 23 valent Debra Bond MD Work Phone: [facility] Work Phone: 11-19-2017 influenza nasal, unspecified formulation Debra Bond MD Work Phone: [facility] Work Phone: 11-19-2017 influenza virus vaccine, unspecified formulation Xiang KEENAN [facility] 11-19-2017 influenza, injectabl e, quadrivalent, preservative free Debra Bond MD Work Phone: [facility] Work Phone: 04-27-2016 pneumococcal conjuga te vaccine, 13 valent Debra Bond MD Work Phone: [facility] Work Phone: 04-27-2016 pneumococcal Conjuga te, unspecified formulation; Translations: [Need for prophylactic vaccination against Streptococcus pneumoniae (pneumococcus)] Tondra Mapus Other [employer] Other 01-27-2016 influenza, injectabl e, quadrivalent, preservative free Debra Bond MD Work Phone: [facility] 12-24-2014 influenza virus vaccine, split virus (incl. purified surface antigen) Tondra Mapus Other [employer] Other 04-26-2013 pneumococcal polysaccharide vaccine, 23 valent Tondra Mapus Other [employer] Other 11-22-2012 tetanus and diphther ia toxoids, adsorbed, preservative free, for adult use (5 Lf of tetanus toxoid and 2 Lf of diphtheria toxoid) Tondra Mapus Other [employer] Other Payers Date Payer Category Payer Unknown MMO MMO MEDICARE SUPPLEMENT [id number] 2020-Present [phone] [address] [place] [address] Indemnity [id number] 2020 Unknown MMO MMO MEDICARE SUPPLEMENT [id number] 2020-Present [phone] [address] [place] [address] Indemnity [id number] 2018 Medicare MEDICARE MEDICAR E A AND B [id number] 2018-Present [phone] [address] [address] [place] [address] Medicare [id number] 2018 Medicare MEDICARE MEDICAR E A AND B [id number] 2018-Present [phone] [address] [address] [place] [address] Medicare [id number] 2017 Medicare [id number] 2017 Unknown [id number] 1959 Self-pay 1955 Unknown [id number] 1953 Unknown [id number] 1955 Unknown [id number] 1955 Unknown [id number] Private Health Insurance [facility] [id number] Private Health Insurance [facility] [id number] Unknown [id number] Unknown [id number] Social History Date Type Detail Facility Start: 10-03-2020 Tobacco smoking status NHIS Occasional tobacco smoker [facility] History of tobacco use Cigar Smoker [facility] Start: 10-03-2020 End: 01-10-2023 Alcohol intake Current drinker of alcohol (finding) [facility] Start: 10-03-2020 History SDOH Alcohol Comment rare glass of scotch [facility] Start: 10-03-2020 Tobacco Comment very rare cigar (one so far in 2020) [facility] Start: 1955 Sex Assigned At Male [facility] Start: 04-14-2021 End: 10-16-2021 Exposure to SARS-CoV-2 (event) Not sure [facility] Start: 10-03-2020 End: 09-10-2022 Sex Assigned At [facility] Other Start: 03-08-2021 Tobacco smoking status NHIS Never smoked tobacco (finding) [facility] Start: 11-24-2020 End: 02-22-2023 Tobacco smoking status Smoker (finding) [facility] Tobacco smoking status Never [facility] Start: 10-03-2020 Tobacco use and exposure Smokeless tobacco non-user [facility] Start: 10-03-2020 End: 09-10-2022 History of Social function [facility] Start: 09-27-2020 Gender identity Identifies as male gender (finding) [facility] Start: 09-27-2020 Sexual orientation Heterosexual (finding) [facility] Medical Equipment Procedure Code Equipment Code Equipment Original Text Equipment Identifier Dates Thoracotomy [id number] FDA Start: 04-15-2020 Thoracotomy [id number] FDA Start: 04-15-2020 Thoracotomy [id number] FDA Start: 04-15-2020 AMNIOFILL 250MG FDA Start: 05-04-2019 [id number] FDA Start: 08-09-2019 Drug-eluting cor onary artery stent, aac-spqrzkggzizlb-lmrjq er-coated [id number] FDA Start: 08-09-2019 AMNIOFILL 250MG FDA Start: 05-04-2019 [id number] FDA Start: 08-09-2019 AMNIOFILL 250MG FDA Start: 05-04-2019 [id number] FDA Start: 08-09-2019 Functional Status Date Assessment Result Facility 02-22-2023 Functional Status N/A [facility] 11-30-2021 Functional Status N/A [facility] Clinical Notes 07-13-2019 to 03-21-2023 Note Date & Type Note Facility 03-21-2023 Evaluation note Encounter Date Diagnosis Assessment Notes Mar, Cervical spondylosis with radiculopathy (ICD-10 - M47.22) [facility] Other 01-05-2024 Evaluation note* Encounter Date Diagnosis Assessment Notes Treatment Notes Treatment Clinical Notes Mar, Medicare annual well ness visit, subsequent (ICD-10 - Z00.00) Personalized health advice was given to the beneficiary including a written plan for screenings discussed and provided. Advanced care planning reviewed and/or information given as requested. Additional counseling was provided here today in regards to, [ ]. The above visit was performed by [ ], under direct supervision of [ ]. Document reviewed and amended by provider signed below. Mar, Persistent cough (IC D-10 - R05.3) CXR and CT completed. CT w/ right sided pleural effusion and left sided chronic pneumonothorax and scarring. No s/s CHF despite elevation of BNP - no change in GDMT - f/u Cardiology as scheduled - weight stable - denies orthopnea, PND, increased edema or increased weight Mar, Pleural effusion, ri ght (ICD-10 - J90) Finding during evaluation of persistent cough. Afebrile, denies night sweats, hx of left sided effusion Refer to Pulmonary Clinic for further evaluation and treatment Mar, Ischemic cardiomyopa thy (ICD-10 - I25.5) This patient is stable without activity related CP, dyspnea or lightheadedness. They are instructed to continue exercise and AHA diet plan. Continue secondary prevention measures. Mar, Chronic HFrEF (heart failure with reduced ejection fraction) (ICD-10 - I50.22) Instructed on low salt diet, exercise and daily weights. Instructed to notify office for any unexpected weight gain > 3lbs and/or increased dyspnea, difficulty breathing during sleep, worsening lower extremity swelling, chest pain or lightheadedness. Reviewed GDMT w/ beta blockers, ANA LUISA/ARB/ARNI, MRA and SGLT-2 Mar, Cervical spondylosis with radiculopathy (ICD-10 - M47.22) ROM exercises, heat/ice and Tylenol. Unable to take NSAIDs due to cardiac disease, anemia and CKD Mar, Controlled type 1 diabetes mellitus with hyperglycemia, with long-term current use of insulin (ICD-10 - E10.65) This patient is following a comprehensive diabetic treatment plan. They are checking their feet daily for calluses and nonhealing ulcers. They are being seen for yearly dilated eye examinations. Goals: SBP less than 130, LDL less than 100, FBS less than 140, A1C less than 7%. They are checking their BS daily, will which are reviewed at the office visit. Continue regular routine monitoring of A1C,] Microalbumin, Dilated eye exam and Foot exam Mar, PAD (peripheral wili ry disease) (ICD-10 - I73.9) No claudication, denies nonhealing ulcerations Fall precautions. Continue routine f/u w/ New Media Strategist Mar, Primary hypertension (ICD-10 - I10) Mar, Hypercholesterolemia (ICD-10 - E78.00) Mar, Colon cancer screeni ng (ICD-10 - Z12.11) He is mildly anemic w/o s/s GIB. He denies change in appetite, weight or bowel habits. He denies heartburn, dysphagia, abdominal pain, melena or hematochezia Plan to refer for EGD and Colonoscopy Mar, Anemia, unspecified type (ICD-10 - D64.9) No s/s [facility] Other 12-28-2023 Evaluation note* Encounter Date Diagnosis Assessment Notes Treatment Notes Treatment Clinical Notes Feb, Lung density on x-ra y (ICD-10 - J98.4) Feb, Chronic HFrEF (heart failure with reduced ejection fraction) (ICD-10 - I50.22) Feb, Ischemic cardiomyopathy (ICD-10 - I25.5) [facility] Other 12-27-2023 Evaluation note* Encounter Date Diagnosis [...] impingement Feb, Atherosclerotic hear t disease of [place] coronary artery without angina pectoris (ICD-10 - [...] beta blockers, ANA LUISA/ARB/ARNI, MRA and SGLT-2 [facility] Other 12-27-2023 Evaluation note* Encounter Date Diagnosis Assessment Notes Treatment Notes Treatment Clinical Notes Feb, Lung density on x-ray (ICD-10 - J98.4) [facility] Other 12-12-2023 Hospital Discharge instructions Patient Education [...] urethra. Follow these instructions at home: Take gdrx-ycg-sbuctlt and prescription medicines only as told by [...] provider. Document Revised: 09/16/2021 Document Reviewed: 09/16/2021 [employer] Patient Education 2022 [employer]. Follow Up Care 11/30/2021 09:41:49 With:HITESH LAKHANI, Mayank Quijano, URL Address: [facility] [address] , [place] [address]- When:Within 1 Year(s) Comments:w/PSA [facility] 11-22-2023 Evaluation note* Encounter Date Diagnosis [...] diabetes medication issues. 6. Prescriptions: [facility] : Gabapentin sent 02/02/23 7. Prescriptions will not [...] control iq insulin pump with dexcom g6 CGM:Basal MN 0.66 changed to 0.73 units/hr (TBI 17.52 units/day)ICR MN 1:7, 530 am 1:6, 11am 1:7ISF MnN1:38Active insulin time 5 hoursTarget: MN 110 Updated weight/tdi in control [employer] Other 09-28-2023 Evaluation note* Encounter Date Diagnosis Assessment Notes Treatment Notes Treatment Clinical Notes Nov, Acute bronchitis due to other specified organisms (ICD-10 - J20.8) Instructed to use Robitussin or Mucinex for cough, saline or Flonase NS for congestion, Tylenol for pain and fever. Nov, Ischemic cardiomyopathy (ICD-10 - I25.5) He has no s/s CHF. Weight stable w/o increased edema. Nov, Other . [facility] Other 09-28-2023 NoteHNO ID: [id number] Author: Debra Bond MD Service: ? Author Type: Physician Type: [place] Notes Filed: 01/10/2023 10:23 PM Note Text: Heart, Vascular AND Thoracic [place] Department of Cardiovascular Medicine VIRTUAL VIDEO VISIT ESTABLISHED OUTPATIENT VISIT SERVICE DATE: 12/09/22 Patient: Ellis Braxton SERVICE TIME: 08 : 1955 This is a virtual video visit. It required patient-provider interaction for the medical decision making as documented below. Ellis Braxton has consented to this video encounter. I have communicated my name and active licensure. The patient's identity and physical location were verified at the time of this visit. Either the patient or their legal herbicide service sales representative has been informed of the [...] and PCI 15 years ago 2005, [place] ([place] July 2019 (chest pain two stents), no stent cards, performed by Dr. Benítez at [facility]. Stents were all to the LAD 3. [...] distress, well-hydrated, well nourishe (more content not included)...[facility]09-28-2023 History of Present illness Narrative* Debra Bond MD - 12/09/2022 8:00 AM EDT Heart, Vascular & [facility] [place] Department of Cardiovascular Medicine VIRTUAL VIDEO VISIT [...] visit. Either the patient or their legal herbicide service sales representative has been informed of the [...] and PCI 15 years ago 2005, [place] July 2019 (chest pain two stents), no stent cards, performed by Dr. Benítez at [facility]. Stents were all to the LAD 3. [...] and PCI 15 years ago 2005, [place] July 2019 (chest pain two stents), no stent cards, performed by Dr. Benítez at [facility]. Stents were all to the LAD 3. [...] patient. Debra Bond MD documented in this encounterAs[facility] Evaluation note* Encounter Date Diagnosis Assessment Notes Treatment Notes Treatment Clinical Notes Nov, Bug bite, initial encounter (ICD-10 - W57.XXXA) Cool compresses and antihistamines. Avoid systemic steroids due to DM Nov, Type 1 diabetes mellitus with hyperglycemia (ICD-10 - E10.65) BS controlled DM influences treatment of cutaneous rash, avoid steroids [facility] Other 07-05-2023 Evaluation note* Encounter Date Diagnosis [...] Notify office w/ increased symptoms, hand weakness. [facility] Other 07-05-2023 Evaluation note* Encounter Date Diagnosis Assessment Notes Treatment Notes Treatment Clinical Notes Sep, Chronic HFrEF (heart failure with reduced ejection fraction) (ICD-10 - I50.22) Echo: LVEF 37%, RV dilated, RVSP 37 [facility] Other 06-30-2023 NoteHNO ID: [id number] Author: Debra Bnod MD Service: ? Author Type: Physician Type: [place] Notes Filed: 10/10/2022 10:52 PM Note Text: Heart and Vascular [place] [facility] SECTION OF HEART FAILURE and CARDIAC TRANSPLANT MEDICINE OUTPATIENT VISIT DATE September 10, 2022 OUTPATIENT VISIT TYPE Established Patient PRIMARY CARE PHYSICIAN: Epifanio Montelongo (Suzy) [address] [place] [address] CHIEF COMPLAINT: Follow-up NURSING INTAKE (Patient?s concerns [...] and PCI 15 years ago 2005, [place] July 2019 (chest pain two stents), no stent cards, performed by Dr. Benítez at [facility]. Stents were all to the LAD 3. [...] times daily. Disp: Rfl: HUMALOG 100 unit/mL [id number]: insulin pump Disp: Rfl: REVIEW OF SYSTEMS: CONSTITUTION: Negative for: Fever, Night sweats and Recent weight change HEENT (more content not included)...[facility]06-30-2023 Instructions* Patient Instructions* Debra Bond MD - 09/10/2022 2:24 PM EDT Ejection fraction is 37%. This is stable compared to February of 2021. Keep up your current work and regimen. Virtual visit in 3 months. documented in this encounterAs[facility]06-[facility] History of Present illness Narrative* Debra Bond MD - 09/10/2022 1:08 PM EDT Images from the original note were not included. Heart [facility] [place] [facility] SECTION OF HEART FAILURE and CARDIAC TRANSPLANT MEDICINE OUTPATIENT VISIT DATE September 10, 2022 OUTPATIENT VISIT TYPE Established Patient PRIMARY CARE PHYSICIAN: Epifanio Montelongo (Suzy) [address] [place] [address] CHIEF COMPLAINT: Follow-up NURSING INTAKE (Patient s [...] and PCI 15 years ago 2005, [place] July 2019 (chest pain two stents), no stent cards, performed by Dr. Benítez at [facility]. Stents were all to the LAD 3. [...] toes right foot CC PCI CORONARY INTERVENT 2003 x1, 2016 x 2, July 2019 x [...] and PCI 15 years ago 2005, [place] July 2019 (chest pain two stents), no stent cards, performed by Dr. Benítez at [facility]. Stents were all to the LAD 3. [...] this time. I will ask for his [facility] films from 2019 from [facility] to be uploaded here so we have a frame of reference. Continue asa, statin. Heart Failure specific medications (list current, note updates or changes, note prior intolerance): BB: Metop XL 12.5 mg daily ACEI/ARB/ARNI: 0.5 tab of ARNI 24/26 mg BID MRA: Kaya 25 mg daily SGLT2: None due to [...] non-medical management as above. Debra Bond MD, [facility] Section Of Heart Failure and Cardiac Transplant Medicine Heart [facility] [place] [facility] Desk J3-[address] [place] [address] documented in this encounterAshtabula [facility] Center05-15-2023 Evaluation note* Encounter Date Diagnosis Assessment Notes Treatment Notes Treatment Clinical Notes July, Dysuria (ICD-10 - R30.0) [facility] Other 05-02-2023 Evaluation note* Encounter Date Diagnosis [...] 11am 1:7ISF 1:35Active insulin time 5 hoursTarget: MIL 110 [facility] Other 01-24-2023 Evaluation note* Encounter Date Diagnosis [...] 1:35Active insulin time 5 hoursTarget: MN 110 Mar, BMI 31.0-31.9,adult (ICD-10 - Z68.31) Maintaining a healthful weight material was published [facility] Other 01-13-2023 NoteHNO ID: [id number] Author: Debra Bond MD Service: ? Author Type: Physician Type: [place] Notes Filed: 03/26/2022 1:55 PM Note Text: Heart and Vascular [place] [facility] SECTION OF HEART FAILURE and CARDIAC TRANSPLANT MEDICINE OUTPATIENT VISIT DATE March 26, 2022 OUTPATIENT VISIT TYPE Established Patient PRIMARY CARE PHYSICIAN: Epifanio Montelongo ([facility]) [facility] [place] [address] CHIEF COMPLAINT: Follow-up NURSING INTAKE (Patient?s concerns [...] and PCI 15 years ago 2005, [place] July 2019 (chest pain two stents), no stent cards, performed by Dr. Benítez at [facility]. Stents were all to the LAD 3. [...] Visual disturbance CARDIOVASCULAR: Negativ (more content not included)...[facility] 03-17-2022 Evaluation note* Encounter Date Diagnosis Assessment [...] I25.5) Mar, Atherosclerotic hear t disease of [place] coronary artery without angina pectoris (ICD-10 - I25.10) Mar, HTN (hypertension) (ICD-10 - I10) 04 Geoffrey, 2023 PAD (peripheral artery disease) (ICD-10 - I73.9) Mar, Type 1 diabetes mellitus with complication (ICD-10 - E10.8) Mar, Type 1 diabetes mellitus with diabetic neuropathy (ICD-10 - E10.40) Mar, HFrEF (heart failure with reduced ejection fraction) (ICD-10 - I50.20) Mar, Screening PSA (prostate specific antigen) (ICD-10 - Z12.5) Mar, Annual physical exam (ICD-10 - Z00.00) [facility] Other 11-10-2022 NoteHNO ID: [id number] Author: Debra Bond MD Service: ? Author Type: Physician Type: [place] Notes Filed: 02/22/2022 9:33 AM Note Text: Heart, V[facility] AND Thor[facility] [place] Department of Cardiovascular Medicine VIRTUAL VIDEO VISIT [...] and PCI 15 years ago 2005, 2011 ([place] July 2019 (chest pain two stents), no stent cards, performed by Dr. Benítez at [facility]. Stents were all to the LAD 3. [...] acuity is grossly normal (more content not included)...[facility]11-10-2022 History of Present illness Narrative* Debra Bond MD - 01/21/2022 8:14 AM EST Heart, V[facility] [place] Department of Cardiovascular Medicine VIRTUAL VIDEO VISIT [...] STEMI and PCI 15 years ago 2005, 2012 [place] July 2019 (chest pain two stents), no stent cards, performed by Dr. Benítez at [facility]. Stents were all to the LAD 3. [...] reaction(s): FLU-LIKE SYMPTOMS Other reaction(s): FLU-LIKE SYMPTOMS [employer] Other: See Comments CURRENT MEDICATIONS sacubitril-valsartan [...] and PCI 15 years ago 2005, [place] July 2019 (chest pain two stents), no stent cards, performed by Dr. Benítez at [facility]. Stents were all to the LAD 3. [...] C films from 2019 from [facility] to be uploaded here so we have [...] 21, 2022 8:15 AM documented in this encounterAshtabula [facility] Center10-18-2022 Miscellaneous Notes* Telephone Encounter - Frida Liao RN - 12/29/2021 10:14 AM EDT Outside labs received from 12/28. Scanned into [employer] for review. Frida [id number] documented in this encounterAshtabula [facility] Center10-17-2022 Miscellaneous Notes* Telephone Encounter - Sada Vargas [...] a call from pts Diabetes doctor in [place]. Pts BP today was 89/41 and the pt has been lightheaded for the past 3 weeks. Nurse relayed the following labs: BUN--29 Creatinine--1.28 Sodium--134 Creatinine ration--56 She will also fax labs over to [phone] Pt can be reached at [phone] Frida [id number] documented in this encounterAshtabula [facility] Center10-17-2022 Evaluation note* Encounter Date Diagnosis Assessment Notes [...] Contact ed Dr. Debra Bond's office at [facility] [phone]. Spoke with Frida, office staff to inform [...] Bond. Requesting labs to be faxed to [phone]. Lab results faxed as requested. Office will call patient directly today with Dr. Bond's recommendation. Patient and Rimma LAMA updated. [facility] Other 09-19-2022 Hospital Discharge instructions Patient Education [...] who: Are older than age 65. Are -Nauruan. Are obese. Have a family history of [...] cells. Follow these instructions at home: Take sqwq-pzh-xpaoznq and prescription medicines only as told by [...] 02/28/2006 Document Revised: 02/10/2018 Document Reviewed: 11/08/2016 [employer] Patient Education 2020 [employer]. Follow Up Care 11/24/2020 15:33:36 With:SHLOMO LAKHANI, Xiang Perry, URL Address: [address] [place] [address]- When:1 year Comments:w/ CALVIN [facility] [id number] Instructions* Patient Instructions* Debra Bond MD - 10/16/2021 10:41 AM EDT Great job keeping yourself healthy. Labwork today in J1-4. See me virtually in 3 months time. documented in this encounterAshtabula [facility] Center08-05-2022 History of Present illness Narrative* Debra Bond MD - 10/16/2021 10:11 AM EDT Images from the original note were not included. Heart [facility] Vascular [place] [facility] SECTION OF HEART FAILURE and CARDIAC TRANSPLANT MEDICINE OUTPATIENT VISIT DATE October 16, 2021 OUTPATIENT VISIT TYPE Established Patient PRIMARY CARE PHYSICIAN: Epifanio Montelongo (Suzy) [address] [place] [address] CHIEF COMPLAINT: Follow-up NURSING INTAKE (Patient s [...] and PCI 15 years ago 2005, [place] July 2019 (chest pain two stents), no stent cards, performed by Dr. Benítez at [facility]. Stents were all to the LAD 3. [...] is a high risk scan. Gated Stress TOF:IN:CTA LVEF % [address] [facility] 10/23/20 Access Site: RIJ Sheath Size:7fr [place] Mango Size:7fr BP: 110 / 62 BP [...] and PCI 15 years ago 2005, 2011 ([place]), July 2019 (chest pain two stents), no stent cards, performed by Dr. Benítez at [facility]. Stents were all to the LAD 3. [...] this time. I will ask for his [facility] films from 2019 from [facility] to be uploaded here so we have a frame of reference. Continue asa, statin. Heart Failure specific medications (list current, note updates or changes, note prior intolerance): BB: Metop XL 12.5 mg once a day ACEI/ARB/ARNI: ARNI 24/26 mg BID MRA: Cassandra 25 mg daily SGLT2: None due to T1DM Diuretic: Torsemide 40 mg BID Digoxin: none Vasodilators: none Anti-arrhythmics: none Ivabradine: none Other anti-HTN: none PLAN AND RECOMMENDATIONS: 1. Labs today 2. 3 month virtual; echo in the Spring 3. [facility] films from [facility] from July 2019 I personally interviewed, confirmed and edited the above information as obtained by others I personally spent 40 minutes in total time involved in the management and care of this patient. Wediscussed natural history of disease, current treatment options, and future potential treatment options. We discussed diet, exercise, other non-medical management as above. Debra Bond MD, [facility] Section Of Heart Failure and Cardiac Transplant Medicine Heart [facility] [place] [facility] Desk J3-[address] [place] [address] documented in this encounterAshtabula County Medical Center03-10-2022 Evaluation note* Encounter Date Diagnosis Assessment Notes [...] the nutrition facts label material was published [facility] Other 03-03-2022 History of Past illness Narrative* Problem Noted Date Resolved Date Type 2 diabetes mellitus without complication 07/16/2021 Polyneuropathy due to type 2 diabetes mellitus 0 05/14/2021 07/16/2021 documented as of this encounter (statuses as of 09/23/2021) [facility] History of Past illness Narrative* Problem Noted [...] of this encounter (statuses as of 10/16/2021) [facility] of Past illness Narrative* Problem Noted [...] of this encounter (statuses as of 12/28/2021) [facility] of Past illness Narrative* Problem Noted [...] of this encounter (statuses as of 12/29/2021) [facility] of Past illness Narrative* Problem Noted [...] of this encounter (statuses as of 02/22/2022) [facility] of Past illness Narrative* Problem Noted [...] of this encounter (statuses as of 02/26/2022) [facility] of Past illness Narrative* Problem Noted [...] of this encounter (statuses as of 08/19/2022) [facility] of Past illness Narrative* Problem Noted [...] of this encounter (statuses as of 09/22/2022) [facility] of Past illness Narrative* Problem Noted [...] of this encounter (statuses as of 10/11/2022) [facility] of Past illness Narrative* Problem Noted [...] of this encounter (statuses as of 10/12/2022) [facility] of Past illness Narrative* Problem Noted [...] of this encounter (statuses as of 01/11/2023) [facility] of Past illness Narrative* Problem Noted [...] d ue to type 2 diabetes mellitus (HCC) 12/05/2013 10/16/2021 Crystalline deposits in vitreous 12/05/2013 03/26/2022 documented as of this encounter (statuses as of 01/12/2023) [facility] of Past illness Narrative* Problem Noted [...] d ue to type 2 diabetes mellitus ([facility]) 12/05/2013 10/16/2021 Crystalline deposits in vitreous 12/05/2013 03/26/2022 documented as of this encounter (statuses as of 03/04/2023) [facility] Evaluation note* Encounter Date Diagnosis Assessment Notes [...] medication issues. 6. Prescriptions: Humalog sent to [facility]. Sample dexcom g6 transmitter/sensor given today 7. Went to [employer] website and played video on removal resevoir. Pt is agreeable to coming into office and bringing new resevoir and set up apt with Jonn Gimenez to troubleshoot. Will have certified lactation educator reach out to pt. 8. Keep f/u [...] the nutrition facts label material was published [facility] Other 10-28-2021 Evaluation note* Encounter Date Diagnosis Assessment Notes Treatment Notes Treatment Clinical Notes Dec, Type 1 diabetes mellitus with complication (ICD-10 - E10.8) Reviewed pump/cgm download tandem control iq with dexcom g6 12/25/2020-12/13: Avg glcuose 124. >180-9%, 70-180-89%, <70-2%. Will modify basal settings. 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 [facility] Other 05-01-2020 History general Narrative - Reported* Type Description Date Medical History TYPE I DIABETIC Medical History CO Medical History HX PROSTATE Ca Medical History CO 07/2019 Medical History Left Lung Spontaneous Pleural [...] see above surgical histo ry Hospitalization History [facility] [place] Hospitalization History Chest pain 11/29 Hospitalization History rupture bladder 05/03 Hospitalization History ACUTE EXACERBATI ON OF CHF, GROSS HEMATURIA, CAD, H/O PROSTATE CA, DM, NEUROPATHY, CONSTIPATION; 06/2020 Hospitalization History [facility] [place] 10/2020 [facility] Other 05-01-2020 History general Narrative - Reported* Type Description Date Medical History TYPE I DIABETIC Medical History CO Medical History HX PROSTATE Ca Medical History CO 07/2019 Medical History Left Lung Spontaneous Pleural [...] see above surgical histo ry Hospitalization History [facility] Hospitalization History Chest pain 11/29 Hospitalization History rupture bladder 05/03 Hospitalization History ACUTE EXACERBATI ON OF CHF, GROSS HEMATURIA, CAD, H/O PROSTATE CA, DM, NEUROPATHY, CONSTIPATION; 06/2020 Hospitalization History [facility] [place] [facility]/2020 [facility] Other 05-01-2020 History general Narrative - Reported* Type Description Date Medical History TYPE I DIABETIC Medical History CO Medical History HX PROSTATE Ca Medical History CO 07/2019 Medical History Left Lung Spontaneous Pleural [...] LEFT EYE SURGERY/REMOVAL OF BHAVYA ATERS 03/04/22 Surgical History Colonoscopy 04/2012 Hospitalization History see above surgical histo ry Hospitalization History [facility] Hospitalization History Chest pain 11/29 Hospitalization History rupture bladder 05/03 Hospitalization History ACUTE EXACERBATI ON OF CHF, GROSS HEMATURIA, CAD, H/O PROSTATE CA, DM, NEUROPATHY, CONSTIPATION; 06/2020 Hospitalization History [facility] [place] 10/2020 [employer] Other Evaluation + Plan note Future Appointments Appointment Date:11/29/2022 08:45:00 AM Scheduled Provider:Xiang KEENAN MD Location:[facility] Appointment Type:URO Office Visit Diagnostic Tests Pending * PSA Total 11/30/21 [facility] Evaluation + Plan note Future Appointments Appointment Date:02/29/2024 08:30:00 AM Scheduled Provider:Mayank URBAN MD Location:[facility] Appointment Type:URO Office Visit Diagnostic Tests Pending * PSA Total 02/15/23 * PSA Total 02/22/23 [facility] evaluation noteNo [employer] Other evaluation note* Diagnosis Chronic systolic heart failure (HCC) Chronic systolic heart failure [facility] Diagnosis Chronic systolic heart failure (HCC)- Primary Chronic systolic heart failure Ischemic cardiomyopathy Other specified forms of chronic ischemic heart disease Coronary artery disease involving [place] coronary artery of [place] heart without angina pectoris Obesity, Class I, BMI 30-34.9 Obesity, unspecified Type 1 diabetes mellitus with diabetic polyneuropathy (HCC) Type I (juvenile type) diabetes mellitus with neurological manifestations, not stated as uncontrolled Dyslipidemia Other and unspecified hyperlipidemia [facility]No assessment information [facility] Work Phone: evaluation note* Diagnosis Chronic systolic heart failure (HCC) Chronic systolic heart failure [facility] Diagnosis Ischemic cardiomyopathy- Primary Other specified forms of chronic ischemic heart disease Chronic systolic heart failure (HCC) Chronic systolic heart failure Coronary artery disease involving [place] coronary artery of [place] heart without angina pectoris Type 1 diabetes mellitus with diabetic polyneuropathy (HCC) Type I (juvenile type) diabetes mellitus with neurological manifestations, not stated as uncontrolled Dyslipidemia Other and unspecified hyperlipidemia [facility] Diagnosis Chronic systolic heart failure (HCC)- Primary Chronic systolic heart failure Ischemic cardiomyopathy Other specified forms of chronic ischemic heart disease [facility] Diagnosis Chronic systolic heart failure (HCC) Chronic systolic heart failure Ischemic cardiomyopathy Other specified forms of chronic ischemic heart disease Coronary artery disease involving [place] coronary artery of [place] heart without angina pectoris Type 1 diabetes mellitus with diabetic polyneuropathy (HCC) Type I (juvenile type) diabetes mellitus with neurological manifestations, not stated as uncontrolled Dyslipidemia Other and unspecified hyperlipidemia [facility] Diagnosis Chronic systolic heart failure (HCC) Chronic systolic heart failure [facility] Diagnosis Chronic systolic heart failure (HCC) Chronic systolic heart failure Ischemic cardiomyopathy Other specified forms of chronic ischemic heart disease Coronary artery disease involving [place] coronary artery of [place] heart without angina pectoris Type 1 diabetes mellitus with diabetic polyneuropathy (HCC) Type I (juvenile type) diabetes mellitus with neurological manifestations, not stated as uncontrolled Dyslipidemia Other and unspecified hyperlipidemia Peripheral vascular disease, unspecified (HCC) Peripheral vascular disease, unspecified [facility] Diagnosis Chronic systolic heart failure (HCC) Chronic systolic heart failure Ischemic cardiomyopathy Other specified forms of chronic ischemic heart disease Coronary artery disease involving [place] coronary artery of [place] heart without angina pectoris documented in this encounter [facility] Diagnosis Chronic systolic heart failure (HCC)- Primary Chronic systolic heart failure Ischemic cardiomyopathy Other specified forms of chronic ischemic heart disease Coronary artery disease involving [place] coronary artery of [place] heart without angina pectoris Type 1 diabetes mellitus with diabetic polyneuropathy (HCC) Type I (juvenile type) diabetes mellitus with neurological manifestations, not stated as uncontrolled Dyslipidemia Other and unspecified hyperlipidemia Peripheral vascular disease, unspecified (HCC) Peripheral vascular disease, unspecified Obesity, Class I, BMI 30-34.9 Obesity, unspecified documented in this [facility]* Diagnosis Ischemic cardiomyopathy Other specified forms of chronic ischemic heart disease Coronary artery disease involving [place] coronary artery of [place] heart without angina pectoris Type 1 diabetes mellitus with diabetic polyneuropathy (HCC) Type I (juvenile type) diabetes mellitus with neurological manifestations, not stated as uncontrolled Dyslipidemia Other and unspecified hyperlipidemia [facility]* Diagnosis Chronic systolic heart failure (HCC) Chronic systolic heart failure documented in this encounter [facility] course Narrative No data available for this section [facility] note No data available for this section [facility] Reason for referral (narrative)* Reason Referral for EMG/NCS of the B/L upper extremities Diagnosis 1 Paresthesias (R20.2) Referral Organization [facility] lv Referring Provider First Name Epifanio Referring Provider Last Name Reginald Referring Provider Specialty Internal Mn lottie Referred Organization [facility] Referred Address [address] [place], [place],[address] Referred Provider Specialty Neurology Referral Priority Routine [...] lounge chair, prevents his symptoms from occurring. [employer] Other Reason for referral (narrative)* Reason *FU 03/18 Referral for EMG/NCS of the B/L upper extremities Diagnosis 1 Paresthesias (R20.2) Referral Organization [facility] Referring Provider First Name Epifanio Referring Provider Last Name Reginald Referring Provider Specialty Internal [place] lottie Referred [facility] Referred Provider Ashish Segundo Referred Address [address] [facility], [place],[address] Referred Provider Specialty Neurology Referral Priority Routine [...] lounge chair, prevents his symptoms from occurring. Stacie Delgado 03/10/2023 11:14:43 AM >received today, noted above. attachments made, form filled out, referral faxed Reason Referral for persist ent cough and abnormal CXR/CT. Diagnosis 1 Persistent cough (R0 5.3) Referral Organization [facility] [employer] lv Referring Provider First Name Epifanio Referring Provider Last Name Reginald Referring Provider Specialty Internal Me dicine Referred Organization [facility] Referred Provider Ashish Lozano [place],[address] Referred Provider Specialty Pulmonary Alexa figueroa Referral Priority Routine General Notes Mr. Braxton is alondra ng referred for a persistent cough. He has a history of HFrEF but appears to be euvolemic. He denies persistent fever, chills or night sweats. He has a history of a pleural effusion, which required a thoracentesis and pleurodesis. A CXR and CT chest was obtained with abnormal findings, that are difficult to determine if acute or chronic. I am referring Mr. Braxton for further treatment and evaluation for his persistent cough. Clinical Notes Please include CXR, CT chest and labs [facility] Other Reason for referral (narrative)* Reason Referral for EGD and screening Colonoscopy Diagnosis 1 Colon cancer goran hidalgo (Z12.11) Diagnosis 2 Anemia, unspecified type (D64.9) Referral Organization [facility] [employer] [facility] Referring Provider First Name Epifanio Referring Provider Last Name Reginald Referring Provider Specialty Internal Me dicine Referred Organization [facility] [place],[address] Referred Provider Specialty Gastroentero logy Referral Priority Routine General Notes Mr. Braxton comple leticia his annual wellness examination and was noted to be mildly anemic w/ normal indices. He denies change in appetite, weight or bowel habits. He denies heartburn, dysphagia, abdominal pain, melena or hematochezia. He is due for a screening colonoscopy and he is also being referred for EGD to r/o gastritis, PUD, H. Pylori or esophagitis. Clinical Notes His GI procedure jose uld not be scheduled until after his Pulmonary evaluation. [facility] [employer] Other Reason for visit Narrative* Outpatient Procedure (Routine) - Closed Specialty Diagnoses / Procedures Referred By Contamelia t Ref[facility] Diagnoses Chronic systolic heart failure (HCC) Ischemic cardiomyopathy Coronary artery disease involving [place] coronary artery of [place] heart without angina pectoris Procedures ECHO ECHO TTHRC R-T 2D W/WOM-MODE COMPL SPEC&COLR D Debra Bond MD [address] [place] [address] [facility] [address] [place] [address] Referral ID Status Reason Start Date Expiration Date V isits Requested Visits Authorized [id number] Closed Auto-Generate d Referral 06/24/2022 03/26/2023 1 1 [facility] Summary Purpose Family History No Family History Records Found Relationship Condition Age at Onset Recorded Date/T aren Not Specified Congestive heart failure Unknown father Secondary malignant neoplasm of prostate Unknown brother Secondary malignant neoplasm of prostate Unknown Advance Directives No Advanced Directives Records FoundDocuments on File Type Date Recorded Patient Electroneurodiagnostic Technologist Expl anation Advance Directive(s) 10/16/2020 9:26 AM [...] FOLLOW UP APPT ORDER Debra Bond MD [address] [place] [address] Referral ID Status Reason Start Date Expiration Date Visits Requested Visits Authorized [id number] Ref Not Required PCP Requested Referral 04/12/2023 01/10/2024 1 1 Additional Source Comments (unrecognized sect ion and content) No Status Records FoundNo Status Records FoundNo Status Records FoundNo Status Records FoundNo Status Records FoundNo Status Records FoundNo Status Records Found INFORMATION SOURCE (unrecogn ized section and content) DATE CREATED AUTHOR 04/17/2019 [facility] DATE CREATED AUTHOR AUTHOR'S ORGANIZ ATION 08/10/2020 [facility] DATE CREATED AUTHOR AUTHOR'S ORGANIZ ATION 04/19/2021 [facility] DATE CREATED AUTHOR AUTHOR'S ORGANIZ ATION 01/11/2023 [facility] DATE CREATED AUTHOR AUTHOR'S ORGANIZ ATION 02/24/2023 [facility] DATE CREATED AUTHOR AUTHOR'S ORGANIZ ATION 02/24/2023 [facility] DATE CREATED AUTHOR AUTHOR'S ORGANIZ ATION 03/24/2023 [facility] dical Specialists EPIC Source Comments (unrecognize d section and content) In the event this informatio n is protected by the Federal Confidentiality of Alcohol and Drug Abuse Patient Records regulations: The Federal rules restrict any use of the information to criminally investigate or prosecute any alcohol or drug abuse patient.[facility] the event this information is protected by the Federal Confidentiality of Alcohol and Drug Abuse Patient Records regulations: The Federal rules restrict any use of the information to criminally investigate or prosecute any alcohol or drug abuse patient.[facility] the event this information is protected by the Federal Confidentiality of Alcohol and Drug Abuse Patient Records regulations: The Federal rules restrict any use of the information to criminally investigate or prosecute any alcohol or drug abuse patient.[facility] the event this information is protected by the Federal Confidentiality of Alcohol and Drug Abuse Patient Records regulations: The Federal rules restrict any use of the information to criminally investigate or prosecute any alcohol or drug abuse patient.[facility] the event this information is protected by the Federal Confidentiality of Alcohol and Drug Abuse Patient Records regulations: The Federal rules restrict any use of the information to criminally investigate or prosecute any alcohol or drug abuse patient.[facility] the event this information is protected by the Federal Confidentiality of Alcohol and Drug Abuse Patient Records regulations: The Federal rules restrict any use of the information to criminally investigate or prosecute any alcohol or drug abuse patient.[facility] the event this information is protected by the Federal Confidentiality of Alcohol and Drug Abuse Patient Records regulations: The Federal rules restrict any use of the information to criminally investigate or prosecute any alcohol or drug abuse patient.[facility] the event this information is protected by the Federal Confidentiality of Alcohol and Drug Abuse Patient Records regulations: The Federal rules restrict any use of the information to criminally investigate or prosecute any alcohol or drug abuse patient.[facility] the event this information is protected by the Federal Confidentiality of Alcohol and Drug Abuse Patient Records regulations: The Federal rules restrict any use of the information to criminally investigate or prosecute any alcohol or drug abuse patient.[facility] the event this information is protected by the Federal Confidentiality of Alcohol and Drug Abuse Patient Records regulations: The Federal rules restrict any use of the information to criminally investigate or prosecute any alcohol or drug abuse patient.[facility] the event this information is protected by the Federal Confidentiality of Alcohol and Drug Abuse Patient Records regulations: The Federal rules restrict any use of the information to criminally investigate or prosecute any alcohol or drug abuse patient.[facility] the event this information is protected by the Federal Confidentiality of Alcohol and Drug Abuse Patient Records regulations: The Federal rules restrict any use of the information to criminally investigate or prosecute any alcohol or drug abuse patient.[facility] the event this information is protected by the Federal Confidentiality of Alcohol and Drug Abuse Patient Records regulations: The Federal rules restrict any use of the information to criminally investigate or prosecute any alcohol or drug abuse patient.[facility] the event this information is protected by the Federal Confidentiality of Alcohol and Drug Abuse Patient Records regulations: The Federal rules restrict any use of the information to criminally investigate or prosecute any alcohol or drug abuse patient.[facility] Care Teams (unrecognized sec tion and content) 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 Start Date End Date Epifanio Montelnogo DO PCP - General Internal Medicine 03/18/15 Debra Bond MD [address] [place] [address] Primary Staff Physician Cardiology 10/03/20 No, Referral Referring Cardiology 10/23/20 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 Start Date End Date Epifanio Montelongo DO PCP - General Internal Medicine 03/18/15 Debra Bond MD [address] [place] [address] Primary Staff Physician Cardiology 10/03/20 No, Referral Referring Cardiology 10/23/20 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 Start Date End Date Epifanio Montelongo DO PCP - General Internal Medicine 03/18/15 Debra Bond MD [address] [place] [address] Primary Staff Physician Cardiology 10/03/20 [...] Active Suzi Saxena APRN Attending Provider Active 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 Start Date End Date Epifanio Montelongo DO PCP - General Internal Medicine 03/18/15 Debra Bond MD [address] [place] [address] Primary Staff Physician Cardiology 10/03/20 No, Referral Referring Cardiology 10/23/20 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 Start Date End Date Epifanio Montelongo, DO PCP - General Internal Medicine 03/18/15 Debra Bond MD [address] [place] [address] Primary Staff Physician Cardiology 10/03/20 No, Referral Referring Cardiology 10/23/20 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 Start Date End Date Epifanio Montelongo, DO PCP - General Internal Medicine 03/18/15 Debra Bond MD [address] [place] [address] Primary Staff Physician Cardiology 10/03/20 No, Referral Referring Cardiology 10/23/20 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 Start Date End Date Epifanio Montelongo, DO PCP - General Internal Medicine 03/18/15 Debra Bond MD [address] [place] [address] Primary Staff Physician Cardiology 10/03/20 No, Referral Referring Cardiology 10/23/20 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 Start Date End Date Epifanio Montelongo, DO PCP - General Internal Medicine 03/18/15 Debra Bond MD [address] [place] [address] Primary Staff Physician Cardiology 10/03/20 No, Referral Referring Cardiology 10/23/20 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 Start Date End Date Epifanio Montelongo DO PCP - General Internal Medicine 03/18/15 Debra Bond MD [address] [place] [address] Primary Staff Physician Cardiology 10/03/20 No, Referral Referring Cardiology 10/23/20 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 Start Date End Date Epifanio Montelongo DO PCP - General Internal Medicine 03/18/15 Debra Bond MD [address] [place] [address] Primary Staff Physician Cardiology 10/03/20 No, Referral Referring Cardiology 10/23/20 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 Start Date End Date Epifanio Montelongo DO PCP - General Internal Medicine 03/18/15 Debra Bond MD [address] [place] [address] Primary Staff Physician Cardiology 10/03/20 No, Referral Referring Cardiology 10/23/20 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 Start Date End Date Epifanio Montelongo DO PCP - General Internal Medicine 03/18/15 Debra Bond MD [address] [place] [address] Primary Staff Physician Cardiology 10/03/20 No, Referral Referring Cardiology 10/23/20 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 Start Date End Date Epifanio Montelongo DO PCP - General Internal Medicine 03/18/15 Debra Bond MD [address] [place] [address] Primary Staff Physician Cardiology 10/03/20 No, Referral Referring Cardiology 10/23/20 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 Start Date End Date Epifanio Montelongo DO PCP - General Internal Medicine 03/18/15 Debra Bond MD [address] [place] [address] Primary Staff Physician Cardiology 10/03/20 No, Referral [...] BE BASED ON THE PRIMARY CLINICAL RECORDS. [employer] provides no warranty or guarantee of the accuracy or completeness of information in this document.
== END 2023-03-24 08:56 | disposition home or self-care (01) ==
LOC: MRI 08:55
PROVIDERS: PCP Internal Medicine
DX: M47.22 Other spondylosis with radiculopathy, cervical region (principal); M50.30 Other cervical disc degeneration, unspecified cervical region
CPT/HCPCS: 72141

== ENCOUNTER 2023-05-12 12:26 | Outpatient (OUT) | payer MEDICARE, OTHER, SELFPAY ==
--- NOTE | 2023-05-12 12:39 | XR_ITS ---
The [address] [address] Patient Name: RADHA BRAXTON MRN: [id number] date: 1955 Sex: M Assigned Patient Location: RAD Current Patient Location: RAD Accession/Order Number: [id number] Exam Date: 05/12/2023 12:42 Report Date: 05/12/2023 13:06 At the request of: DELFIN CALVO Procedure: XR chest 2V PROCEDURE: XR chest 2V DATE: 05/12/2023 11:42 AM PATIENT REPRESENTATIVE COMPARISONS: 03/09/2023 CLINICAL INDICATION: 67 years Male pleural effusion J90 FINDINGS: The cardiac silhouette is mild to moderately enlarged and stable. There is slight atelectasis at the left lung base. No definite left pleural effusion. There is popba-vl-yeiezvkq size right pleural effusion also seen on previous chest radiograph. There is moderate associated right lower lung field atelectasis, increased slightly from previous exam. It appears there is postop changes of the upper medial left lung, stable. There is no evidence of pneumothorax. XR/XR chest 2V IMPRESSION: Nlnnv-mg-bhpvqrtr size right pleural effusion with associated atelectasis. Effusion and atelectasis may have increased slightly since previous exam of 03/09/2023 Electronically authenticated by: LUÍS SAINI Date: 05/12/2023 13:06
== END 2023-05-12 12:27 | disposition home or self-care (01) ==
LOC: RAD 12:30
PROVIDERS: PCP Internal Medicine; Visit Provider Internal Medicine Critical Care Medicine
DX: J90 Pleural effusion, not elsewhere classified (principal)
CPT/HCPCS: 71046

== ENCOUNTER 2023-10-14 10:21 | Outpatient (OUT) | payer MEDICARE, OTHER, SELFPAY ==
--- NOTE | 2023-10-14 10:30 | ECG_ITS ---
The 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
--- NOTE | 2023-10-14 10:46 | XR_ITS ---
The [address] [address] Patient Name: RADHA BRAXTON MRN: [id number] date: 1955 Sex: M Assigned Patient Location: CARD Current Patient Location: Accession/Order Number: [id number] Exam Date: 10/14/2023 10:53 Report Date: 10/15/2023 05:45 At the request of: CHIOMA MCGOWAN Procedure: XR chest 2V EXAMINATION: XR chest 2V HISTORY: Ischemic Cardiomyopathy, Recurrent Right Pleural Effusion COMPARISON: XR chest 05/12/2023 FINDINGS: LUNGS: Persistent opacification of right lung base. VASCULATURE: No increased pulmonary vasculature. PLEURA: Moderate right pleural effusion. No pneumothorax. CARDIAC: Grossly stable cardiomegaly. MEDIASTINUM: Prior sternotomy. No abnormal widening. BONES: No fracture or visible bone lesion. OTHER: Negative. XR/XR chest 2V IMPRESSION: 1. Stable moderate right pleural effusion with associated atelectasis, or possibly infiltrates. 2. Stable to slight increase in cardiomegaly. Electronically authenticated by: JETHRO SHARPE Date: 10/15/2023 05:45
[2023-10-14 11:49] LABS: Hematocrit 27.2 % (42.0-54.0); Mean Corpuscular HGB Conc 33.1 g/dL (29.9-35.2); Mean Corpuscular Hemoglobin 28.5 pg (25.9-34.0); Mean Corpuscular Volume 86.1 fL (80.0-94.0); Mean Platelet Volume 9.9 fL (9.5-13.5); Platelet Count 197 10^3/uL (150-450); Red Blood Count 3.16 10^6/uL (4.70-6.10); Red Cell Distribution Width 16.9 % (11.0-15.0); White Blood Count 5.2 10^3/uL (4.0-11.0)
[2023-10-14 12:11] LABS: Alanine Aminotransferase 262 U/L (16-63); Albumin Globulin Ratio 0.8; Albumin Level 2.7 g/dL (3.4-5.0); Alkaline Phosphatase 370 U/L (46-116); Anion Gap 10.4; Aspartate Amino Transferase 147 U/L (15-37); BUN Creatinine Ratio 22.9; Bilirubin Total 1.2 mg/dL (0.2-1.0); Calcium 8.4 mg/dL (8.5-10.1); Carbon Dioxide 32.6 mmol/L (21.0-32.0); Chloride 93 mmol/L (98-107); Estimated GFR (African America >60 (>=60); Estimated GFR (Non-African Ame 50 (>=60); Globulin 3.2 g/dL; Glucose 141 mg/dL (74-106); Sodium 132 mmol/L (136-145); Total Protein 5.9 g/dL (6.4-8.2)
[2023-10-14 12:19] LABS: Band Neutrophils Absolute 0.2 10^3/uL (0.0-0.3); Basophils Abs Manual 0.05 10^3/uL (0.00-0.10); Lymphocytes Absolute Manual 0.62 10^3/uL (1.20-3.80); Monocytes Absolute Manual 0.15 10^3/uL (0.30-0.80); Segmented Neut Absolute Manual 4.05 10^3/uL (1.4-6.5)
[2023-10-14 12:21] LABS: Anisocytosis 1+
== END 2023-10-14 10:22 | disposition home or self-care (01) ==
PROVIDERS: PCP Internal Medicine; Visit Provider Internal Medicine
DX: I25.5 Ischemic cardiomyopathy (principal); N18.9 Chronic kidney disease, unspecified; J90 Pleural effusion, not elsewhere classified; I12.9 Hypertensive chronic kidney disease with stage 1 through stage 4 chronic kidney disease, or unspecified chronic kidney disease
CPT/HCPCS: 36415; 71046; 80053; 85007; 85027; 93005

== ENCOUNTER 2023-10-18 09:41 | Outpatient (OUT) | payer MEDICARE, OTHER, SELFPAY ==
--- NOTE | 2023-10-18 09:51 | US_ITS ---
The [address] [address] Patient Name: RADHA BRAXTON MRN: [id number] date: 1955 Sex: M Assigned Patient Location: Current Patient Location: Accession/Order Number: [id number] Exam Date: 10/18/2023 10:00 Report Date: 10/19/2023 06:45 At the request of: CHIOMA MCGOWAN Procedure: US right upper quadrant EXAMINATION: US right upper quadrant HISTORY: Liver Enzymes Elevated COMPARISON: No relevant comparison available. TECHNIQUE: Transabdominal evaluation of the right upper quadrant. FINDINGS: LIVER: Normal size and echotexture. Color Doppler demonstrates patent hepatic veins. PORTAL VEIN: Duplex Doppler demonstrates normal hepatopetal flow pattern with flow velocity averaging 35 cm/s. GALLBLADDER: No visible gallstones, wall thickening, or pericholecystic free fluid. Negative sonographic Wells's sign. BILIARY: No abnormal dilation or stones. Common bile duct diameter is within normal limits. PANCREAS: No visible mass, abnormal atrophy, or duct dilation. KIDNEY: Contains a nonobstructing 5 mm stone. No hydronephrosis. No visible mass or stones. Size: 10.4 x 6.2 x 6.4 cm US/US right upper quadrant IMPRESSION: 1. No specific findings to account for patient's symptoms. 2. Nonobstructing right lithiasis. 3. Right pleural effusion. Consider follow-up chest x-ray or CT chest. Patient history describes recent open heart surgery. Electronically authenticated by: JETHRO SHARPE Date: 10/19/2023 06:45
[2023-10-18 10:55] LABS: Basophils Percent Auto 0.7 % (0.2-2.0); Eosinophils Absolute Auto 0.1 10^3/uL (0.0-0.7); Eosinophils Percent Auto 2.2 % (0.9-7.0); Hematocrit 29.3 % (42.0-54.0); Hemoglobin 9.4 g/dL (14.0-18.0); Immature Granulocytes Abs Auto 0.04 10^3/uL (0.00-0.03); Immature Granulocytes Pct Auto 0.7 % (0.0-0.5); Lymphocytes Absolute Auto 0.6 10^3/uL (1.2-3.8); Lymphocytes Percent Auto 9.7 % (20.5-60.0); Mean Corpuscular HGB Conc 32.1 g/dL (29.9-35.2); Mean Corpuscular Hemoglobin 27.8 pg (25.9-34.0); Mean Corpuscular Volume 86.7 fL (80.0-94.0); Mean Platelet Volume 9.8 fL (9.5-13.5); Monocytes Absolute Auto 0.5 10^3/uL (0.3-0.8); Neutrophils Absolute Auto 4.6 10^3/uL (1.4-6.5); Neutrophils Percent Auto 77.7 % (43.0-75.0); Platelet Count 239 10^3/uL (150-450); Red Blood Count 3.38 10^6/uL (4.70-6.10); Red Cell Distribution Width 17.4 % (11.0-15.0); White Blood Count 5.9 10^3/uL (4.0-11.0)
[2023-10-18 11:23] LABS: Alanine Aminotransferase 178 U/L (16-63); Albumin Globulin Ratio 0.8; Albumin Level 2.8 g/dL (3.4-5.0); Alkaline Phosphatase 382 U/L (46-116); Aspartate Amino Transferase 49 U/L (15-37); Bilirubin Total 1.6 mg/dL (0.2-1.0); Globulin 3.4 g/dL; Total Protein 6.2 g/dL (6.4-8.2)
[2023-10-18 11:25] LABS: Bilirubin Direct 0.6 mg/dL (0.0-0.2)
[2023-10-18 11:32] LABS: Percent Iron Saturation 6.6 %
== END 2023-10-18 09:42 | disposition home or self-care (01) ==
LOC: US 09:42
PROVIDERS: PCP Internal Medicine; Visit Provider Internal Medicine
DX: R74.8 Abnormal levels of other serum enzymes (principal); D62 Acute posthemorrhagic anemia; J90 Pleural effusion, not elsewhere classified
CPT/HCPCS: 36415; 76705; 80076; 82728; 83540; 83550; 85025

== ENCOUNTER 2023-10-24 15:06 | Inpatient (IN) | payer MEDICARE, OTHER, SELFPAY ==
[2023-10-24] VITALS (22 sets, daily range): BP systolic 93–128; BP diastolic 57–78; PULSE 65–79; TEMP 36.4–36.8; O2SAT 89–99; BMI 32.7; BMI 34.1
--- NOTE | 2023-10-24 15:12 | ECG_ITS ---
The [facility] Test Date: 2023-10-24 Pat Name: RADHA BRAXTON Department: Room: - Gender: Male [employer]: : 1955 Requested By: CHIOMA MCGOWAN Order Number: [id number] Reading MD: CHIOMA MCGOWAN Measurements Intervals Gap Rate: 77 P: 69 MN: 136 QRS: 160 QRSD: 138 T: 8 QT: 420 QTc: 452 Interpretive Statements 1100 Sinus rhythm 1577 with couplet ventricular premature complexes 2450 Right bundle branch block 2730 Left posterior fascicular block 7300 Indeterminate axis 9150 abnormal ECG Electronically Signed On 10-24-2023 23:06:48 EDT by CHIOMA MCGOWAN
--- NOTE | 2023-10-24 15:14 | XR_ITS ---
The [address] [address] Patient Name: RADHA BRAXTON MRN: [id number] date: 1955 Sex: M Assigned Patient Location: ER Current Patient Location: [place] Accession/Order Number: [id number] Exam Date: 10/24/2023 15:40 Report Date: 10/24/2023 17:16 At the request of: GENOVEVA EDOUARD Procedure: XR chest 1V XR chest 1V 10/24/2023 3:40 PM EDT CLINICAL INDICATION: Shortness of breath COMPARISON: 10/14/2023 TECHNIQUE: Portable semiupright AP view of the chest. FINDINGS: Prior median sternotomy. The cardiac silhouette appears severely enlarged. Pulmonary vasculature appears prominent with indistinct margins. Bibasilar densities are seen with bilateral [id number] pleural effusions. No pneumothorax. Osseous structures demonstrate degenerative changes. Soft tissues are grossly normal. XR/XR chest 1V IMPRESSION: Findings suggesting congestive heart failure with pulmonary interstitial edema and [id number] bilateral pleural effusions. Infectious etiology and also be considered in the right clinical setting. Electronically authenticated by: ODELL HERNANDEZ Date: 10/24/2023 17:16
--- NOTE | 2023-10-24 15:16 | ED_ITS ---
HPI HPI - General Adult General Chief complaint: Shortness of Breath/Dyspnea Stated complaint: diff breathing, retaining fluids Time Seen by Provider: 10/24/23 15:12 Source: patient Mode of arrival: Wheelchair Limitations: no limitations History of Present Illness HPI narrative: Patient is a 68-year-old male who presents to the emergency department 2 months status post CABG x 4 performed at the [facility]. He was referred to the ER by his home health nurse and primary care provider for increasing swelling and shortness of breath over the last 10 days. He has a history of diabetes, coronary artery disease. He denies any chest pain. He states he had been doing well since his surgery but in the last 10 days has had swelling in his legs and abdomen. No fevers or vomiting. He denies any history of CHF although he is prescribed Entresto and takes torsemide 40 mg daily. He is not on any new anticoagulation, he takes a daily baby aspirin. Related Data Home Medications ?Medication ?Instructions ?Recorded ?Confirmed alfuzosin 10 mg tablet,extended 10 mg PO DAILY 10/24/23 10/24/23 release 24 hr aspirin 81 mg tablet,delayed 81 mg PO DAILY 10/24/23 10/24/23 release (Adult Aspirin Regimen) atorvastatin 80 mg tablet 80 mg PO DAILY 10/24/23 10/24/23 gabapentin 600 mg tablet 600 mg PO TID 10/24/23 10/24/23 metoprolol succinate 25 mg 12.5 mg PO DAILY 10/24/23 10/24/23 tablet,extended release 24 hr pantoprazole 40 mg tablet,delayed 40 mg PO DAILY 10/24/23 10/24/23 release sacubitril 24 mg-valsartan 26 mg 0.5 tab PO BID 10/24/23 10/24/23 tablet (Entresto) spironolactone 25 mg tablet 25 mg PO DAILY 10/24/23 10/24/23 tizanidine 4 mg tablet 4 mg PO BEDTIME 10/24/23 10/24/23 torsemide 20 mg tablet 40 mg PO DAILY 10/24/23 10/24/23 Allergies Allergy/AdvReac Type Severity Reaction Status Date / Time Iodinated Contrast Media AdvReac Mild Hives Verified 10/24/23 15:13 Opioid HPI Opioid Management Most Recent Opioid Data: No Data to Display Review of Systems ROS Constitutional Denies: fever or chills Ears, nose, mouth, and throat Denies: throat pain or nasal congestion Cardiovascular Denies: chest pain Respiratory Reports: shortness of breath; Denies: cough Gastrointestinal Denies: nausea or vomiting Musculoskeletal Reports: extremity swelling Integumentary/Breast Denies: rash Neurological Denies: weakness in extremities or dizziness Hematologic/Lymphatic Denies: easy bruising or easy bleeding Exam Narrative Exam Narrative: Gen.: Awake, alert, in no distress Head: Normocephalic, atraumatic ENT: Moist mucous membranes Respiratory: No respiratory distress, speaks in full sentences, diminished lung sounds Cardio: Regular rate and rhythm Gastrointestinal: Abdomen is soft, edematous with no noted fluid wave. Nontender to palpation. Extremities: Moves extremities equally, 2+ nonpitting edema noted to the lower extremities Psych: Normal mood and affect Neuro: No focal neuro deficit Skin: Warm, dry, intact Constitutional Vital Signs, click to edit/add: Last Vital Signs Temp 98.3 F 10/24/23 15:13 Pulse 74 10/24/23 16:00 Resp 16 10/24/23 16:00 BP 123/71 10/24/23 16:00 Pulse Ox 98 10/24/23 16:00 O2 Del Method Room Air 10/24/23 15:26 O2 Flow Rate 2 10/24/23 15:26 Course Vital Signs Vital signs: Vital Signs Temperature 98.3 F 10/24/23 15:13 Pulse Rate 79 10/24/23 15:13 Respiratory Rate 18 10/24/23 15:13 Blood Pressure 120/62 10/24/23 15:13 Pulse Oximetry 93 L 10/24/23 15:13 Oxygen Delivery Method Room Air 10/24/23 15:13 Temperature 98.3 F 10/24/23 15:13 Pulse Rate 74 10/24/23 16:00 Respiratory Rate 16 10/24/23 16:00 Blood Pressure 123/71 10/24/23 16:00 Pulse Oximetry 98 10/24/23 16:00 Oxygen Delivery Method Room Air 10/24/23 15:26 Oxygen Delivery Flow Rate 2 10/24/23 15:26 Medical Decision Making MDM Narrative Medical decision making narrative: Chest x-ray obtained showing suspected pulmonary edema and pleural effusion, patient did have an episode of transient hypoxia where his oxygen levels decreased to 89% on room air, 2 L of oxygen placed by nasal cannula for comfort. Patient was found to have stable labs, slightly improved anemia and kidney function although BNP is elevated at 12,000 today with normal troponin. He has no EKG changes and no complaints of chest pain. Discussed the case with Dr. Cortez for admission who will admit the patient and he will place the order for Bumex drip. Patient due to the patient's oxygen requirement and episode of hypoxia, we will place him on [facility], inpatient telemetry. Stable at time of admission. SHARED APC VISIT, PHYSICIAN ATTESTATION: [id number] I performed a substantive part of the MDM during the patient?s E/M visit. I personally evaluated and examined the patient. I personally made or approved the documented management plan and acknowledge its risk of complications. Medical Records Medical records reviewed: Yes I reviewed the patient's medical records Lab Data Lab results reviewed: Yes I reviewed the patient's lab results Labs: Lab Results 10/24/23 10/24/23 Range/Units 15:20 15:43 WBC 7.2 (4.0-11.0) 10^3/uL RBC 3.55 L (4.70-6.10) 10^6/uL Hgb 9.9 L (14.0-18.0) g/dL Hct 30.4 L (42.0-54.0) % MCV 85.6 (80.0-94.0) fL MCH 27.9 (25.9-34.0) pg MCHC 32.6 (29.9-35.2) g/dL RDW 18.0 H (11.0-15.0) % Plt Count 275 (150-450) 10^3/uL MPV 9.7 (9.5-13.5) fL Neut % (Auto) 75.0 (43.0-75.0) % Lymph % (Auto) 11.7 L (20.5-60.0) % [place] % (Auto) 11.3 (1.7-12.0) % Eos % (Auto) 0.6 L (0.9-7.0) % Baso % (Auto) 0.7 (0.2-2.0) % Neut # (Auto) 5.4 (1.4-6.5) 10^3/uL Lymph # (Auto) 0.8 L (1.2-3.8) 10^3/uL [place] # (Auto) 0.8 (0.3-0.8) 10^3/uL Eos # (Auto) 0.0 (0.0-0.7) 10^3/uL Baso # (Auto) 0.1 (0.0-0.1) 10^3/uL Abs Immat Gran (auto) 0.05 H (0.00-0.03) 10^3/uL Imm/Tot Granulo (auto) 0.7 H (0.0-0.5) % PT 13.2 H (9.0-11.6) sec INR 1.28 APTT 34.7 (22.3-36.2) sec VBG pH 7.462 H (7.330-7.430) VBG pCO2 50.5 (40.0-52.0) mmHg Sodium 135 L (136-145) mmol/L Potassium 4.0 (3.5-5.1) mmol/L Chloride 97 L (98-107) mmol/L Carbon Dioxide 34.7 H (21.0-32.0) mmol/L Anion Gap 7.3 BUN 30.0 H (7.0-18.0) mg/dL Creatinine 1.39 H (0.70-1.30) mg/dL Est GFR ( Amer) >60 (>=60) Est GFR (Non-Af Amer) 51 L (>=60) BUN/Creatinine Ratio 21.6 Glucose 135 H (74-106) mg/dL Calcium 8.7 (8.5-10.1) mg/dL Total Bilirubin 1.1 H (0.2-1.0) mg/dL AST 42 H (15-37) U/L ALT 98 H (16-63) U/L Alkaline Phosphatase 355 H (46-116) U/L Troponin I High Sens 46.7 (4.0-76.1) pg/mL NT-Pro-B Natriuret Pep 94064.0 H* (<=900.0) pg/mL Total Protein 6.5 (6.4-8.2) g/dL Albumin 2.8 L (3.4-5.0) g/dL Globulin 3.7 g/dL Albumin/Globulin Ratio 0.8 Imaging Data Chest x-ray: Attestation: I have reviewed the pertinent imaging results. ECG Data Attestation: I personally reviewed and interpreted this ECG as follows: (Normal sinus rhythm at a rate of 77 with right bundle branch block, couplet PVC noted. No significant change from EKG dated 10/14/2023. EKG reviewed by attending physician) Discharge Plan Discharge Chief Complaint: Shortness of Breath/Dyspnea Clinical Impression: CHF (congestive heart failure), Hypoxic episode, Edema, peripheral Patient Disposition: Admitted As Inpatient Time of Disposition Decision: 16:20 Prescriptions / Home Meds: No Action atorvastatin 80 mg tablet 80 mg PO DAILY gabapentin 600 mg tablet 600 mg PO TID torsemide 20 mg tablet 40 mg PO DAILY tizanidine 4 mg tablet 4 mg PO BEDTIME spironolactone 25 mg tablet 25 mg PO DAILY pantoprazole 40 mg tablet,delayed release (DR/EC) 40 mg PO DAILY metoprolol succinate 25 mg tablet extended release 24 hr 12.5 mg PO DAILY alfuzosin 10 mg tablet extended release 24 hr 10 mg PO DAILY Entresto 24-26 mg tablet 0.5 tab PO BID aspirin [Adult Aspirin Regimen] 81 mg tablet,delayed release (DR/EC) 81 mg PO DAILY Print Language: Bangladeshi Referrals: Epifanio Montelongo DO [Primary Care Provider] - 1 week
[2023-10-24 15:29] LABS: PCO2 VBG 50.5 mmHg (40.0-52.0); pH VBG 7.462 (7.330-7.430)
[2023-10-24 15:31] LABS: Basophils Absolute Auto 0.1 10^3/uL (0.0-0.1); Basophils Percent Auto 0.7 % (0.2-2.0); Eosinophils Percent Auto 0.6 % (0.9-7.0); Hematocrit 30.4 % (42.0-54.0); Hemoglobin 9.9 g/dL (14.0-18.0); Immature Granulocytes Abs Auto 0.05 10^3/uL (0.00-0.03); Immature Granulocytes Pct Auto 0.7 % (0.0-0.5); Lymphocytes Absolute Auto 0.8 10^3/uL (1.2-3.8); Lymphocytes Percent Auto 11.7 % (20.5-60.0); Mean Corpuscular HGB Conc 32.6 g/dL (29.9-35.2); Mean Corpuscular Hemoglobin 27.9 pg (25.9-34.0); Mean Corpuscular Volume 85.6 fL (80.0-94.0); Mean Platelet Volume 9.7 fL (9.5-13.5); Monocytes Absolute Auto 0.8 10^3/uL (0.3-0.8); Monocytes Percent Auto 11.3 % (1.7-12.0); Neutrophils Absolute Auto 5.4 10^3/uL (1.4-6.5); Platelet Count 275 10^3/uL (150-450); Red Blood Count 3.55 10^6/uL (4.70-6.10); White Blood Count 7.2 10^3/uL (4.0-11.0)
[2023-10-24 16:00] LABS: Alanine Aminotransferase 98 U/L (16-63); Albumin Globulin Ratio 0.8; Albumin Level 2.8 g/dL (3.4-5.0); Alkaline Phosphatase 355 U/L (46-116); Anion Gap 7.3; Aspartate Amino Transferase 42 U/L (15-37); BUN Creatinine Ratio 21.6; Bilirubin Total 1.1 mg/dL (0.2-1.0); Calcium 8.7 mg/dL (8.5-10.1); Carbon Dioxide 34.7 mmol/L (21.0-32.0); Chloride 97 mmol/L (98-107); Estimated GFR (African America >60 (>=60); Estimated GFR (Non-African Ame 51 (>=60); Globulin 3.7 g/dL; Glucose 135 mg/dL (74-106); Sodium 135 mmol/L (136-145); Total Protein 6.5 g/dL (6.4-8.2)
[2023-10-24 16:02] LABS: INR 1.28; Partial Thromboplastin Time 34.7 sec (22.3-36.2); Prothrombin Time 13.2 sec (9.0-11.6)
[2023-10-24 16:07] LABS: Troponin I High Sensitivity 46.7 pg/mL (4.0-76.1)
--- NOTE | 2023-10-24 18:29 | CA_ITS ---
Patient Name: RADHA BRAXTON MR#: [id number] : 1955 Exam Date: 10/25/2023 Ordering Doctor: DR Giancarlo Cortez . ECHOCARDIOGRAM REPORT PROCEDURE: CA ECHO DOPPLER COMPLETE INDICATIONS: Dyspnea, s/p CBGx3 (09/2023), hypoxia, diabetes I COMPARISON: None. DESCRIPTION: COMPLETE ECHOCARDIOGRAM Real-time transthoracic echocardiography with 2D, M-mode, spectral and color flow Doppler performed. QUALITY: Technical quality was limited. LEFT VENTRICLE: Normal chamber size. Mild concentric left ventricular hypertrophy. Poor sound transmission precludes accurate segmental wall motion analysis. Global left ventricular systolic function appears at the lower limits of normal. LV EF: Visual estimation of left ventricular ejection fraction is 50-55%. DIASTOLIC: Grade II diastolic dysfunction. ATRIAL SEPTUM: LEFT ATRIUM: Mild dilatation. RIGHT ATRIUM: Mild dilatation. RIGHT VENTRICLE: Normal chamber size. Normal right ventricular systolic function. TRICUSPID VALVE: Normal mobility and thickness. No stenosis with trivial regurgitation. Doppler studies reveal severely (>60) elevated right sided pressures. RVSP 66 mmHg MITRAL VALVE: Normal mobility and thickness. No evidence of mitral valve stenosis. Mild mitral annular calcification. No mitral regurgitation. AORTIC VALVE: Normal trileaflet appearance. Thickened aortic valve. Normal leaflet mobility. No evidence of aortic valve stenosis. No aortic regurgitation. AORTIC ROOT: Normal diameter and appearance. PULMONIC VALVE: Not well visualized. PERICARDIUM: No evidence of pericardial effusion. IVC: IVC is dilated (2.4 cm) with no collapse. PLEURA: CONCLUSION: 1. Study limited by poor sound transmission. 2. Left ventricular systolic function appears to be at the lower limits of normal. LVEF is 50 to 55%. Segmental wall motion cannot be accurately assessed due to poor sound transmission. 3. Grade 2 diastolic dysfunction. 4. Normal right ventricular size and systolic function. 5. No evidence of significant valvular dysfunction. 6. Severely elevated right-sided pressures. RVSP is 66 mmHg. Adult Echocardiography Procedure Report Left Ventricle LVEDD (3.7 - 5.6 cm): 5.64 cm LVESD (2.2 - 4.0 cm): 4.33 cm LVIVS thickness (0.6 - 1.2 cm): 1.17 cm LVPW thickness (0.5 - 1.0 cm): 1.12 cm e': 0.05 m/s E - e': 19.59 LVOT Max Gradient: 2.58 mm[Hg], 2.08 mm[Hg] LVOT Area (cm2): 0.76 m/s Peak Velocity (LVOT): 0.80 m/s, 0.72 m/s LVOT Diameter 2.14 cm Left Atrium LA Volume Index (2D A2C): 37.60 ml/m2 Left Atrium Systolic Dimension: 4.38 cm Mitral Valve MV E to A Ratio: 1.65 Mitral Valve A-Wave Peak Velocity: 0.59 m/s Mitral Valve E-Wave Peak Velocity: 0.97 m/s Right Ventricle Aorta AO Root Diam: 2.63 cm Aortic Valve AoV Area (Peak Carlos): 2.96 cm2, 3.42 cm2, 2.57 cm2 Peak Velocity(Antegrade Flow): 0.84 m/s, 1.01 m/s Peak Gradient(Antegrade Flow): 2.85 mm[Hg], 4.07 mm[Hg] Tricuspid Valve Peak Velocity (Regurgitant Flow): 3.38 m/s, 3.57 m/s Pulmonic Valve Peak Velocity: 0.72 m/s Peak Gradient: 1.56 mm[Hg], 2.68 mm[Hg] Right Atrium Right Atrium Systolic Pressure: 57.06 ml, 57.06 ml Dictated by: Kendell Dickerson M.D. on 10/25/2023 at 20:09 Approved by: Kendell Dickersno M.D. on 10/25/2023 at 20:12
--- NOTE | 2023-10-24 18:34 | P.HP_ITS ---
HPI H&P: HPI History of Present Illness Chief complaint: diff breathing, retaining fluids Narrative: Patient who approximately 1 month ago had open heart surgery. After that they did take him off of his water pill. The last 8 or 9 days has had increasing swelling in his legs. Up into his abdomen, just feels overall bloated. In the ER found to have significant edema with an elevated BNP of 12,000. Troponin so far is negative. He denies chest pain or any symptoms similar to prior to having his bypass surgery. Sugars have been up and down which she typically gets when he is ill. Does not feel sick otherwise. No fever chills no pain with urination. I saw patient up on the medical surgical floor, he was in bed resting comfortably, no significant labored breathing. Opioid HPI Opioid Management Most Recent Pain and Opioid Data: Last Pain Scale 0 10/24/23 18:26 Last Pain Assessment 10/24/23 18:26 Last ORT Total Score 0 10/24/23 17:30 Last ORT Risk Category Low Risk 10/24/23 17:30 Review of Systems ROS Status of ROS 10 or more systems reviewed and unremark able except as noted in history and below PFSH PFS Social History Highest level of school completed/degree received: Associate degree: academic program Do you think of yourself as: straight/heterosexual Gender Identity: male Meds Home Medications and Allergies Home Medications ?Medication ?Instructions ?Recorded ?Confirmed ?Type alfuzosin 10 mg tablet,extended 10 mg PO DAILY 10/24/23 10/24/23 History release 24 hr aspirin 81 mg tablet,delayed 81 mg PO DAILY 10/24/23 10/24/23 History release (Adult Aspirin Regimen) atorvastatin 80 mg tablet 80 mg PO DAILY 10/24/23 10/24/23 History clopidogrel 75 mg tablet 75 mg PO DAILY 10/24/23 10/24/23 History fluticasone propionate 50 2 spray intranasal DAILY 10/24/23 10/24/23 History mcg/actuation nasal spray,suspension gabapentin 600 mg tablet 600 mg PO TID 10/24/23 10/24/23 History insulin lispro 100 unit/mL 1 - 20 unit continuous 10/24/23 10/24/23 History subcutaneous solution (Humalog subcutaneous infusion ACHS U-100 Insulin) magnesium oxide 400 mg (241.3 mg 400 mg PO BID 10/24/23 10/24/23 History magnesium) tablet metoprolol succinate 25 mg 12.5 mg PO DAILY 10/24/23 10/24/23 History tablet,extended release 24 hr pantoprazole 40 mg tablet,delayed 40 mg PO DAILY 10/24/23 10/24/23 History release sacubitril 24 mg-valsartan 26 mg 0.5 tab PO BID 10/24/23 10/24/23 History tablet (Entresto) spironolactone 25 mg tablet 25 mg PO DAILY 10/24/23 10/24/23 History tizanidine 4 mg tablet 4 mg PO BEDTIME 10/24/23 10/24/23 History torsemide 20 mg tablet 40 mg PO DAILY 10/24/23 10/24/23 History trazodone 50 mg tablet 25 mg PO .QHS PRN sleep 10/24/23 10/24/23 History Allergies Allergy/AdvReac Type Severity Reaction Status Date / Time Iodinated Contrast Media AdvReac Mild Hives Verified 10/24/23 15:13 Exam Constitutional Vital Signs, click to edit/add: Last Vital Signs Temp 97.5 F L 10/24/23 17:27 Pulse 79 10/24/23 18:32 Resp 18 10/24/23 17:27 BP 123/78 10/24/23 17:27 Pulse Ox 91 L 10/24/23 17:27 O2 Del Method Nasal Cannula 10/24/23 17:27 O2 Flow Rate 2 10/24/23 17:27 Documenting provider has reviewed patient's vital signs: yes Common normals: no apparent distress Chest Common normals: inspection of chest normal Respiratory Common normals: normal respiratory effort, no retractions and no use of accessory muscles Auscultation: rales ([place] up lung [place]) Cardio Common normals: regular rate and regular rhythm GI Common normals: Normal to inspection, nondistended, normoactive bowel sounds present and soft to palpation (Does have edema to the skin. No fluid wave for ascites) Common normals: no CVA tenderness; external exam abnormal (Penile edema) Extremity Common normals: abnormal to inspection (4+ edema with tight, No skin breakdown) Results Labs Labs: Short CBC 10/24/23 Range/Units 15:20 WBC 7.2 (4.0-11.0) 10^3/uL Hgb 9.9 L (14.0-18.0) g/dL Hct 30.4 L (42.0-54.0) % Plt Count 275 (150-450) 10^3/uL BMP 10/24/23 15:20 Sodium 135 L Potassium 4.0 Chloride 97 L Carbon Dioxide 34.7 H BUN 30.0 H Creatinine 1.39 H Glucose 135 H Calcium 8.7 Liver Function 10/24/23 Range/Units 15:20 Total Bilirubin 1.1 H (0.2-1.0) mg/dL AST 42 H (15-37) U/L ALT 98 H (16-63) U/L Alkaline Phosphatase 355 H (46-116) U/L Albumin 2.8 L (3.4-5.0) g/dL ABG ABG results: 10/24/23 15:20 VBG pH 7.462 H VBG pCO2 50.5 Assessment and Plan Assessment and Plan (1) Edema, peripheral: (2) Hypoxic episode: (3) CHF (congestive heart failure): Plan Admission findings: Respiratory distress, acute hypoxia with O2 sat less than 90%, hyponatremia, elevated liver function test, elevated BNP secondary to acute combined congestive heart failure. Acute combined congestive heart failure on top of chronic combined congestive heart failure-check echocardiogram, will start off with a Bumex drip since his BUN and creatinine are slightly elevated from his baseline. Check thyroid levels check magnesium level, cycle his cardiac markers as well Coronary artery disease-bypass approximately a month ago. Well-healed scar. Check echocardiogram. 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 Iron deficiency anemia as well as anemia possibly related to his previous bypass surgery. Will monitor daily Elevated liver function test likely related to passive congestion. Denies abdominal pain. If continues to elevate needs ultrasound Hypercholesterolemia-continue with current medications Hypomagnesemia-continue supplementation, check level GERD-continue with PPI, monitor blood counts daily Insomnia-continue trazodone Low back pain-continue with muscle relaxers BPH-continue with home medications and check UA Admission status: Patient with severe peripheral edema, medically necessary treatment will span 2 midnights. Inpatient status.
[2023-10-24] MEDS: BUMETANIDE 10 MG in 0.9 % SODIUM CHLORIDE 160 ML 20 MG IV (18:53)
[2023-10-24 18:59] LABS: Troponin I High Sensitivity 46.5 pg/mL (4.0-76.1)
[2023-10-24 19:06] LABS: Thyroid Stimulating Hormone 3.499 uIU/mL (0.358-3.740)
[2023-10-24 21:02] LABS: Bilirubin Urine NEGATIVE (NEGATIVE); Blood Urine NEGATIVE (NEGATIVE); Clarity Urine CLEAR (CLEAR); Color Urine YELLOW (YELLOW); Glucose Urine UA NEGATIVE (NEGATIVE); Ketones Urine NEGATIVE (NEGATIVE); Leukocyte Esterase Urine NEGATIVE (NEGATIVE); Nitrite Urine NEGATIVE (NEGATIVE); Protein Urine NEGATIVE (NEG/TRACE); Specific Gravity Urine 1.015 (1.005-1.025); Urobilinogen Urine 0.2 EU/dL (0.2-1.0)
[2023-10-24 21:10] LABS: Bacteria Urine NONE SEEN #/HPF (NONE SEEN); Cast Seen? SEEN #/LPF (NONE SEEN); Crystals Seen? None Seen #/HPF (None Seen); Hyaline Casts Urine RARE; Mucus Urine NONE SEEN (NONE SEEN); RBC Urine 0-2 #/HPF (0-2); Red Blood Cell Casts Urine FEW; Squamous Epithelial Cell Urine RARE #/LPF (NONE/RARE); WBC Urine 0-2 #/HPF (NONE SEEN)
[2023-10-24 21:11] LABS: Urine Culture Indicated ALREADY ORDERED
[2023-10-24] MEDS: SACUBITRIL/VALSARTAN 24 MG-26 MG TABLET 0.5 TAB PO (21:28)
[2023-10-24] MEDS: GABAPENTIN 300 MG CAPSULE 600 MG PO (21:28)
[2023-10-24] MEDS: MAGNESIUM OXIDE 400 MG TABLET PO (21:28)
[2023-10-24] MEDS: TIZANIDINE HCL 4 MG TABLET PO (21:28)
[2023-10-24 21:58] LABS: Troponin I High Sensitivity 41.5 pg/mL (4.0-76.1)
[2023-10-25] VITALS (23 sets, daily range): BP systolic 91–112; BP diastolic 53–70; PULSE 63–150; TEMP 36.4–36.6; O2SAT 86–96
[2023-10-25 05:50] LABS: Basophils Percent Auto 0.7 % (0.2-2.0); Eosinophils Absolute Auto 0.1 10^3/uL (0.0-0.7); Eosinophils Percent Auto 1.2 % (0.9-7.0); Hemoglobin 8.9 g/dL (14.0-18.0); Immature Granulocytes Abs Auto 0.04 10^3/uL (0.00-0.03); Immature Granulocytes Pct Auto 0.7 % (0.0-0.5); Lymphocytes Absolute Auto 0.7 10^3/uL (1.2-3.8); Lymphocytes Percent Auto 11.7 % (20.5-60.0); Mean Corpuscular HGB Conc 31.8 g/dL (29.9-35.2); Mean Corpuscular Volume 84.8 fL (80.0-94.0); Mean Platelet Volume 9.7 fL (9.5-13.5); Monocytes Absolute Auto 0.7 10^3/uL (0.3-0.8); Neutrophils Absolute Auto 4.4 10^3/uL (1.4-6.5); Neutrophils Percent Auto 73.7 % (43.0-75.0); Platelet Count 260 10^3/uL (150-450); Red Cell Distribution Width 18.1 % (11.0-15.0)
[2023-10-25] MEDS: SPIRONOLACTONE 25 MG TABLET PO ×2 (05:51→08:57)
[2023-10-25] MEDS: OMEPRAZOLE 40 MG CAPSULE.DR PO (05:51)
[2023-10-25] MEDS: GABAPENTIN 300 MG CAPSULE 600 MG PO ×3 (05:51→21:08)
[2023-10-25 06:15] LABS: Alanine Aminotransferase 84 U/L (16-63); Albumin Globulin Ratio 0.8; Albumin Level 2.4 g/dL (3.4-5.0); Alkaline Phosphatase 315 U/L (46-116); Anion Gap 5.6; Aspartate Amino Transferase 37 U/L (15-37); BUN Creatinine Ratio 21.3; Bilirubin Total 0.9 mg/dL (0.2-1.0); Calcium 8.2 mg/dL (8.5-10.1); Chloride 98 mmol/L (98-107); Estimated GFR (African America >60 (>=60); Estimated GFR (Non-African Ame 56 (>=60); Globulin 3.2 g/dL; Glucose 109 mg/dL (74-106); Magnesium 1.9 mg/dL (1.8-2.4); Potassium 3.6 mmol/L (3.5-5.1); Sodium 135 mmol/L (136-145); Total Protein 5.6 g/dL (6.4-8.2); Troponin I High Sensitivity 46.8 pg/mL (4.0-76.1)
--- NOTE | 2023-10-25 08:11 | CM.NOTE ---
Rounds made with Dr. Cortez, consult cardiology today for liorhter recommendations. Continue medications for diuresing patient, pt continues with c/o peripheral edema and fullness in abdomen.
--- NOTE | 2023-10-25 08:40 | P.PN_ITS ---
Progress Note: Subjective Subjective Interval history: Patient feels little bit better with his breathing today but not significantly. Feels pressure in his abdomen. Exam Constitutional Vital Signs, click to edit/add: Last Vital Signs Temp 97.7 F 10/25/23 07:54 Pulse 69 10/25/23 08:00 Resp 20 10/25/23 07:54 BP 108/68 10/25/23 07:54 Pulse Ox 90 L 10/25/23 07:57 O2 Del Method Nasal Cannula 10/25/23 07:57 O2 Flow Rate 2 10/25/23 07:57 Documenting provider has reviewed patient's vital signs: yes Common normals: no apparent distress Chest Common normals: inspection of chest normal Respiratory Common normals: normal respiratory effort, no retractions and no use of accessory muscles Auscultation: rales ([place] [facility]) Cardio Common normals: regular rate and regular rhythm GI Common normals: Normal to inspection, nondistended, normoactive bowel sounds present and soft to palpation (Does have edema to the skin. No fluid wave for ascites) Common normals: no CVA tenderness; external exam abnormal (Penile edema) Extremity Common normals: abnormal to inspection (4+ edema with tight, No skin breakdown) Progress Note: Objective Labs Labs: Short CBC 10/24/23 10/25/23 Range/Units 15:20 05:09 WBC 7.2 6.0 (4.0-11.0) 10^3/uL Hgb 9.9 L 8.9 L (14.0-18.0) g/dL Hct 30.4 L 28.0 L (42.0-54.0) % Plt Count 275 260 (150-450) 10^3/uL BMP 10/24/23 10/25/23 15:20 05:09 Sodium 135 L 135 L Potassium 4.0 3.6 Chloride 97 L 98 Carbon Dioxide 34.7 H 35.0 H BUN 30.0 H 27.0 H Creatinine 1.39 H 1.27 Glucose 135 H 109 H Calcium 8.7 8.2 L Liver Function 10/24/23 10/25/23 Range/Units 15:20 05:09 Total Bilirubin 1.1 H 0.9 (0.2-1.0) mg/dL AST 42 H 37 (15-37) U/L ALT 98 H 84 H (16-63) U/L Alkaline Phosphatase 355 H 315 H (46-116) U/L Albumin 2.8 L 2.4 L (3.4-5.0) g/dL Urine 10/24/23 Range/Units 20:40 Urine Color Yellow (YELLOW) Urine Clarity Clear (CLEAR) Urine pH 6.0 (5.0-9.0) Ur Specific [place] 1.015 (1.005-1.025) Urine Protein Negative (NEG/TRACE) mg/dL Urine Glucose (UA) Negative (NEGATIVE) mg/dL Progress Note: A&P Assessment and Plan (1) Edema, peripheral: (2) Hypoxic episode: (3) CHF (congestive heart failure): Plan Admission findings: Respiratory distress, acute hypoxia with O2 sat less than 90%, hyponatremia, elevated liver function test, elevated BNP secondary to acute combined congestive heart failure. Acute combined congestive heart failure on top of chronic combined congestive heart failure-check echocardiogram, will start off with a Bumex drip since his BUN and creatinine are slightly elevated from his baseline. Check thyroid levels check magnesium level, cycle his cardiac markers as well Coronary artery disease-bypass approximately a month ago. Well-healed scar. Check echocardiogram. 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 Iron deficiency anemia as well as anemia possibly related to his previous bypass surgery. Will monitor daily Elevated liver function test likely related to passive congestion. Denies abdominal pain. If continues to elevate needs ultrasound Hypercholesterolemia-continue with current medications Hypomagnesemia-continue supplementation, check level GERD-continue with PPI, monitor blood counts daily Insomnia-continue trazodone Low back pain-continue with muscle relaxers BPH-continue with home medications and check UA Admission status: Patient with severe peripheral edema, medically necessary treatment will span 2 midnights. Inpatient status.
--- NOTE | 2023-10-25 08:56 | P.PN_ITS ---
Progress Note: Subjective Subjective Interval history: Patient feels little bit better with his breathing today but not significantly. Feels pressure in his abdomen. Exam Constitutional Vital Signs, click to edit/add: Last Vital Signs Temp 97.7 F 10/25/23 07:54 Pulse 69 10/25/23 08:00 Resp 20 10/25/23 07:54 BP 108/68 10/25/23 07:54 Pulse Ox 90 L 10/25/23 07:57 O2 Del Method Nasal Cannula 10/25/23 07:57 O2 Flow Rate 2 10/25/23 07:57 Documenting provider has reviewed patient's vital signs: yes Common normals: no apparent distress Chest Common normals: inspection of chest normal Respiratory Common normals: normal respiratory effort, no retractions and no use of accessory muscles Auscultation: rales ([place] [facility]) Cardio Common normals: regular rate and regular rhythm GI Common normals: Normal to inspection, nondistended, normoactive bowel sounds present and soft to palpation (Does have edema to the skin. No fluid wave for ascites) Common normals: no CVA tenderness; external exam abnormal (Penile edema) Extremity Common normals: abnormal to inspection (4+ edema with tight, No skin breakdown) Progress Note: Objective Labs Labs: Short CBC 10/24/23 10/25/23 Range/Units 15:20 05:09 WBC 7.2 6.0 (4.0-11.0) 10^3/uL Hgb 9.9 L 8.9 L (14.0-18.0) g/dL Hct 30.4 L 28.0 L (42.0-54.0) % Plt Count 275 260 (150-450) 10^3/uL BMP 10/24/23 10/25/23 15:20 05:09 Sodium 135 L 135 L Potassium 4.0 3.6 Chloride 97 L 98 Carbon Dioxide 34.7 H 35.0 H BUN 30.0 H 27.0 H Creatinine 1.39 H 1.27 Glucose 135 H 109 H Calcium 8.7 8.2 L Liver Function 10/24/23 10/25/23 Range/Units 15:20 05:09 Total Bilirubin 1.1 H 0.9 (0.2-1.0) mg/dL AST 42 H 37 (15-37) U/L ALT 98 H 84 H (16-63) U/L Alkaline Phosphatase 355 H 315 H (46-116) U/L Albumin 2.8 L 2.4 L (3.4-5.0) g/dL Urine 10/24/23 Range/Units 20:40 Urine Color Yellow (YELLOW) Urine Clarity Clear (CLEAR) Urine pH 6.0 (5.0-9.0) Ur Specific [place] 1.015 (1.005-1.025) Urine Protein Negative (NEG/TRACE) mg/dL Urine Glucose (UA) Negative (NEGATIVE) mg/dL Progress Note: A&P Assessment and Plan (1) Edema, peripheral: (2) Hypoxic episode: (3) CHF (congestive heart failure): Plan Admission findings: Respiratory distress, acute hypoxia with O2 sat less than 90%, hyponatremia, elevated liver function test, elevated BNP secondary to acute combined congestive heart failure. Acute hypoxia-check CT scan of chest-unable to do CTA secondary to allergy Acute combined congestive heart failure on top of chronic combined congestive heart failure-echocardiogram is pending., Consult to cardiology, no significant output with Bumex drip. Try patient on bolus dose of IV Lasix at 80 mg and increased dose of Aldactone, check CT scan of chest, unable to do CTA secondary to contrast allergy Coronary artery disease-bypass approximately a month ago. Well-healed scar. Check echocardiogram. 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 Hyponatremia-stable today, continue to monitor Low T3- - T4 is normal and TSH is normal-doubt that this is having an impact on his heart failure. Iron deficiency anemia as well as anemia possibly related to his previous bypass surgery. Down somewhat today L Elevated liver function test likely related to passive congestion. Somewhat today Hypercholesterolemia-continue with current medications Hypomagnesemia-continue supplementation, check level-continue to monitor GERD-continue with PPI, monitor blood counts daily Insomnia-continue trazodone Low back pain-continue with muscle relaxers BPH-continue with home medications and check UA Admission status: Patient with severe peripheral edema, medically necessary treatment will span 2 midnights. Inpatient status.
[2023-10-25] MEDS: METOPROLOL SUCCINATE 25 MG TAB.ER.24H 12.5 MG PO (08:57)
[2023-10-25] MEDS: ASPIRIN 81 MG TABLET.DR PO (08:57)
[2023-10-25] MEDS: ATORVASTATIN CALCIUM 40 MG TABLET 80 MG PO (08:57)
[2023-10-25] MEDS: MAGNESIUM OXIDE 400 MG TABLET PO ×2 (08:57→21:05)
[2023-10-25] MEDS: CLOPIDOGREL BISULFATE 75 MG TABLET PO (08:57)
[2023-10-25] MEDS: ALFUZOSIN HCL 10 MG TAB.ER.24H PO (08:57)
[2023-10-25] MEDS: SACUBITRIL/VALSARTAN 24 MG-26 MG TABLET 0.5 TAB PO ×2 (08:57→21:05)
[2023-10-25] MEDS: FLUTICASONE PROPIONATE 50 MCG NASAL SPRAY 2 SPRAY NS (08:58)
[2023-10-25] MEDS: FUROSEMIDE 40 MG/4 ML VIAL 80 MG IVP ×2 (08:58→21:04)
--- NOTE | 2023-10-25 09:16 | RESP.RT ---
Titrated down to 1L
--- NOTE | 2023-10-25 10:20 | CM.NOTE ---
Important Message From Medicare discussed with pt, pt verbalizes understanding and signs paper. Original given to pt and copy placed on pt's chart.
--- NOTE | 2023-10-25 10:31 | SWNOTE1 ---
SW spoke to case management and pt. Pt does have [facility] coming in. He would like to continue services once he is discharged. Pt is independent at home and has family to assist as needed. SW to follow as needed.
--- NOTE | 2023-10-25 17:33 | PM.CACN ---
History of Present Illness History of Present Illness Consult date: 10/25/23 Requesting physician: Giancarlo Cortez Consult reason: congestive heart failure Chief complaint: diff breathing, retaining fluids Narrative: 68-year-old male with PMH of DM2, CAD s/p CABG @ [facility] a month ago, HTN was admitted vis ED for SOB. He was noted to have high BNP indicative of HF and was started on diuretics. He has felt better since then. His home health nurse and primary care provider noted worsening swelling and shortness of breath over the last 10 days. He denies any chest pain. He states he had been doing well since his surgery but in the last 10 days has had swelling in his legs and abdomen. No fevers or vomiting. He denies any history of CHF although he is prescribed Entresto and takes torsemide 40 mg daily. Review of Systems ROS Status of ROS 10 or more systems reviewed and unremarkable except as noted in history and below [facility] Medical History Fractured skull ?S02.91XA - Unspecified fracture of skull, initial encounter for closed fracture (ICD-10) Amputated toe of right foot ?S98.131A - Complete traumatic amputation of one right lesser toe, initial encounter (ICD-10) BPH (benign prostatic hyperplasia) ?N40.0 - Benign prostatic hyperplasia without lower urinary tract symptoms (ICD-10) GERD (gastroesophageal reflux disease) ?K21.9 - Gastro-esophageal reflux disease without esophagitis (ICD-10) Diabetes mellitus ?E11.9 - Type 2 diabetes mellitus without complications (ICD-10) Neuropathy ?G62.9 - Polyneuropathy, unspecified (ICD-10) Hyperlipemia ?E78.5 - Hyperlipidemia, unspecified (ICD-10) Partial bowel obstruction ?K56.600 - Partial intestinal obstruction, unspecified as to cause (ICD-10) Surgical History Hx of thumb surgery ?Z98.890 - Other specified postprocedural states (ICD-10) S/P triple vessel bypass ?Z95.1 - Presence of aortocoronary bypass graft (ICD-10) Family History Mother Family history of CHF (congestive heart failure) Family history of hypertension Father Family history of cancer Social History Within the past year, how often did you have a drink containing alcohol: monthly or less Within the past year, how often did you have six or more drinks on one occasion: never Smoking status: Never smoker Second hand tobacco smoke exposure: No Non-prescribed substance use: denies 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 Known occupational exposures/hazards: No Highest level of school completed/degree received: Associate degree: academic program Do you want help with school or training: No Are you now , , , , never or living with a partner: In a typical week, how many times do you talk on the telephone with family, friends, or neighbors: 3 or more times per week How often do you get together with friends or relatives: 3 or more times per week How often do you attend episcopalian or baptist services: 4 or more times per year Do you belong to any clubs or organizations such as episcopalian groups unions, [employer] or athletic groups, or school groups: yes Total score: 3 Score interpretation: A score of greater than or equal to 2 indicates the lowest level of social isolation. Little interest or pleasure in doing things: not at all Feeling down, depressed, or hopeless: not at all Feel stressed/tense/nervous/anxious/difficulty sleeping: not at all Due to disability, difficulty making decisions: No Do you think of yourself as: straight/heterosexual Gender Identity: male Meds Home Medications and Allergies Home Medications ?Medication ?Instructions ?Recorded ?Confirmed ?Type alfuzosin 10 mg tablet,extended 10 mg PO DAILY 10/24/23 10/24/23 History release 24 hr aspirin 81 mg tablet,delayed 81 mg PO DAILY 10/24/23 10/24/23 History release (Adult Aspirin Regimen) atorvastatin 80 mg tablet 80 mg PO DAILY 10/24/23 10/24/23 History clopidogrel 75 mg tablet 75 mg PO DAILY 10/24/23 10/24/23 History fluticasone propionate 50 2 spray intranasal DAILY 10/24/23 10/24/23 History mcg/actuation nasal spray,suspension gabapentin 600 mg tablet 600 mg PO TID 10/24/23 10/24/23 History insulin lispro 100 unit/mL 1 - 20 unit continuous 10/24/23 10/24/23 History subcutaneous solution (Humalog subcutaneous infusion ACHS U-100 Insulin) magnesium oxide 400 mg (241.3 mg 400 mg PO BID 10/24/23 10/24/23 History magnesium) tablet metoprolol succinate 25 mg 12.5 mg PO DAILY 10/24/23 10/24/23 History tablet,extended release 24 hr pantoprazole 40 mg tablet,delayed 40 mg PO DAILY 10/24/23 10/24/23 History release sacubitril 24 mg-valsartan 26 mg 0.5 tab PO BID 10/24/23 10/24/23 History tablet (Entresto) spironolactone 25 mg tablet 25 mg PO DAILY 10/24/23 10/24/23 History tizanidine 4 mg tablet 4 mg PO BEDTIME 10/24/23 10/24/23 History torsemide 20 mg tablet 40 mg PO DAILY 10/24/23 10/24/23 History trazodone 50 mg tablet 25 mg PO .QHS PRN sleep 10/24/23 10/24/23 History Allergies Allergy/AdvReac Type Severity Reaction Status Date / Time Iodinated Contrast Media AdvReac Mild Hives Verified 10/24/23 15:13 Exam Constitutional Vital Signs, click to edit/add: Last Vital Signs Temp 97.5 F L 10/25/23 16:30 Pulse 67 10/25/23 16:30 Resp 18 10/25/23 16:30 BP 112/63 10/25/23 16:30 Pulse Ox 90 L 10/25/23 16:30 O2 Del Method Nasal Cannula 10/25/23 16:30 O2 Flow Rate 2 10/25/23 16:30 Documenting provider has reviewed patient's vital signs: yes Common normals: no apparent distress Chest Common normals: inspection of chest normal Respiratory Common normals: normal respiratory effort, no retractions and no use of accessory muscles Auscultation: rales ([facility] [place]) Cardio Common normals: regular rate and regular rhythm GI Common normals: Normal to inspection, nondistended, normoactive bowel sounds present and soft to palpation (Does have edema to the skin. No fluid wave for ascites) Common normals: no CVA tenderness; external exam abnormal (Penile edema) Extremity Common normals: abnormal to inspection (4+ edema with tight, No skin breakdown) Results Labs and Meds Lab results: Cardiac Enzymes 10/25/23 Range/Units 05:09 AST 37 (15-37) U/L CBC 10/25/23 Range/Units 05:09 WBC 6.0 (4.0-11.0) 10^3/uL RBC 3.30 L (4.70-6.10) 10^6/uL Hgb 8.9 L (14.0-18.0) g/dL Hct 28.0 L (42.0-54.0) % Plt Count 260 (150-450) 10^3/uL Neut # (Auto) 4.4 (1.4-6.5) 10^3/uL Lymph # (Auto) 0.7 L (1.2-3.8) 10^3/uL [place] # (Auto) 0.7 (0.3-0.8) 10^3/uL Eos # (Auto) 0.1 (0.0-0.7) 10^3/uL Baso # (Auto) 0.0 (0.0-0.1) 10^3/uL Comprehensive Metabolic Panel 10/25/23 Range/Units 05:09 Sodium 135 L (136-145) mmol/L Potassium 3.6 (3.5-5.1) mmol/L Chloride 98 (98-107) mmol/L Carbon Dioxide 35.0 H (21.0-32.0) mmol/L BUN 27.0 H (7.0-18.0) mg/dL Creatinine 1.27 (0.70-1.30) mg/dL Glucose 109 H (74-106) mg/dL Calcium 8.2 L (8.5-10.1) mg/dL AST 37 (15-37) U/L ALT 84 H (16-63) U/L Alkaline Phosphatase 315 H (46-116) U/L Total Protein 5.6 L (6.4-8.2) g/dL Albumin 2.4 L (3.4-5.0) g/dL Intake and Output 10/25/23 10/25/23 10/25/23 07:59 15:59 23:59 Intake Total 650 / 890 660 / 660 Output Total 275 / 425 300 / 500 200 / 500 Balance 375 / 465 360 / 160 -200 / 160 Intake: Oral 450 / 690 660 / 660 IV 200 / 200 Bumetanide 10 mg In 0.9 % 200 / 200 Sodium Chloride 160 ml @ 20 mls /hr IV ONCE ONE Rx#:[id number] Output: Urine 275 / 425 300 / 500 200 / 500 Other: Weight 117.5 kg Imaging and Cardiology ECG results: report reviewed EKG Interpretation EKG: sinus rhythm Assessment and Plan Assessment and Plan (1) Edema, peripheral: (2) Hypoxic episode: (3) CHF (congestive heart failure): Plan ADHF: No evidence of ischemia seen. CT with diuretics as being done. Await ECHO. CAD s/p CABG: Await records from [facility]. Ct ASA and statin. Insulin-dependent diabetes mellitus with diabetic peripheral neuropathy-has insulin pump, will have him manage his diabetes with his pump protocol. Iron deficiency anemia: Ct Iron as neededl Hypercholesterolemia-continue with current medications GERD-continue with PPI, monitor blood counts daily Mason Mora MD [facility].
[2023-10-25] MEDS: TIZANIDINE HCL 4 MG TABLET PO (21:06)
[2023-10-25] MEDS: TRAZODONE HCL 50 MG TABLET 25 MG PO (21:06)
[2023-10-26] VITALS (18 sets, daily range): BP systolic 101–122; BP diastolic 52–70; PULSE 55–90; TEMP 36.4–36.9; O2SAT 88–97
[2023-10-26] MEDS: OMEPRAZOLE 40 MG CAPSULE.DR PO (05:52)
[2023-10-26] MEDS: SPIRONOLACTONE 25 MG TABLET 50 MG PO (05:53)
[2023-10-26] MEDS: GABAPENTIN 300 MG CAPSULE 600 MG PO ×3 (05:53→21:43)
[2023-10-26 06:12] LABS: Basophils Absolute Auto 0.1 10^3/uL (0.0-0.1); Basophils Percent Auto 0.8 % (0.2-2.0); Eosinophils Absolute Auto 0.1 10^3/uL (0.0-0.7); Eosinophils Percent Auto 1.2 % (0.9-7.0); Hematocrit 29.8 % (42.0-54.0); Hemoglobin 9.5 g/dL (14.0-18.0); Immature Granulocytes Abs Auto 0.04 10^3/uL (0.00-0.03); Immature Granulocytes Pct Auto 0.6 % (0.0-0.5); Lymphocytes Absolute Auto 0.7 10^3/uL (1.2-3.8); Lymphocytes Percent Auto 11.1 % (20.5-60.0); Mean Corpuscular HGB Conc 31.9 g/dL (29.9-35.2); Mean Corpuscular Hemoglobin 27.4 pg (25.9-34.0); Mean Corpuscular Volume 85.9 fL (80.0-94.0); Mean Platelet Volume 9.6 fL (9.5-13.5); Monocytes Absolute Auto 0.8 10^3/uL (0.3-0.8); Monocytes Percent Auto 12.5 % (1.7-12.0); Neutrophils Absolute Auto 4.7 10^3/uL (1.4-6.5); Neutrophils Percent Auto 73.8 % (43.0-75.0); Platelet Count 291 10^3/uL (150-450); Red Blood Count 3.47 10^6/uL (4.70-6.10); Red Cell Distribution Width 18.2 % (11.0-15.0); White Blood Count 6.4 10^3/uL (4.0-11.0)
[2023-10-26 06:33] LABS: Alanine Aminotransferase 66 U/L (16-63); Albumin Globulin Ratio 0.7; Albumin Level 2.4 g/dL (3.4-5.0); Alkaline Phosphatase 282 U/L (46-116); Anion Gap 4.8; Aspartate Amino Transferase 22 U/L (15-37); BUN Creatinine Ratio 20.8; Bilirubin Total 0.9 mg/dL (0.2-1.0); Calcium 8.3 mg/dL (8.5-10.1); Carbon Dioxide 36.2 mmol/L (21.0-32.0); Chloride 98 mmol/L (98-107); Estimated GFR (African America >60 (>=60); Estimated GFR (Non-African Ame 60 (>=60); Globulin 3.3 g/dL; Glucose 110 mg/dL (74-106); Sodium 135 mmol/L (136-145); Total Protein 5.7 g/dL (6.4-8.2); Troponin I High Sensitivity 38.2 pg/mL (4.0-76.1)
[2023-10-26] MEDS: FUROSEMIDE 40 MG/4 ML VIAL 80 MG IVP ×2 (08:18→21:44)
[2023-10-26] MEDS: ASPIRIN 81 MG TABLET.DR PO (08:19)
[2023-10-26] MEDS: CLOPIDOGREL BISULFATE 75 MG TABLET PO (08:19)
[2023-10-26] MEDS: ATORVASTATIN CALCIUM 40 MG TABLET 80 MG PO (08:19)
[2023-10-26] MEDS: ALFUZOSIN HCL 10 MG TAB.ER.24H PO (08:19)
[2023-10-26] MEDS: MAGNESIUM OXIDE 400 MG TABLET PO ×2 (08:19→21:43)
[2023-10-26] MEDS: SACUBITRIL/VALSARTAN 24 MG-26 MG TABLET 0.5 TAB PO ×2 (08:19→21:44)
[2023-10-26] MEDS: FLUTICASONE PROPIONATE 50 MCG NASAL SPRAY 2 SPRAY NS (08:20)
--- NOTE | 2023-10-26 08:49 | CM.NOTE ---
Rounds made with Dr. Cortez. Discussed diagnosis, Labs, echo results, treatment plan. Plan is to start weaning off O2 today. Ellis verbalized understanding. No discharge planned today.
--- NOTE | 2023-10-26 08:56 | P.PN_ITS ---
Progress Note: Subjective Subjective Interval history: Does feel better after the diuresis from yesterday Exam Constitutional Vital Signs, click to edit/add: Last Vital Signs Temp 98.4 F 10/26/23 08:00 Pulse 71 10/26/23 08:00 Resp 18 10/26/23 08:00 BP 101/52 10/26/23 08:00 Pulse Ox 92 L 10/26/23 08:00 O2 Del Method Nasal Cannula 10/26/23 08:00 O2 Flow Rate 1 10/26/23 08:00 Documenting provider has reviewed patient's vital signs: yes Common normals: no apparent distress Chest Common normals: inspection of chest normal Respiratory Common normals: normal respiratory effort, no retractions and no use of accessory muscles Auscultation: rales ([facility] [place]) Cardio Common normals: regular rate and regular rhythm GI Common normals: Normal to inspection, nondistended, normoactive bowel sounds present and soft to palpation (Does have edema to the skin. No fluid wave for ascites) Common normals: no CVA tenderness; external exam abnormal (Penile edema) Extremity Common normals: abnormal to inspection (3+ edema with tight, No skin breakdown) Progress Note: Objective Labs Labs: Short CBC 10/26/23 Range/Units 05:36 WBC 6.4 (4.0-11.0) 10^3/uL Hgb 9.5 L (14.0-18.0) g/dL Hct 29.8 L (42.0-54.0) % Plt Count 291 (150-450) 10^3/uL BMP 10/26/23 05:36 Sodium 135 L Potassium 4.0 Chloride 98 Carbon Dioxide 36.2 H BUN 25.0 H Creatinine 1.20 Glucose 110 H Calcium 8.3 L Liver Function 10/26/23 Range/Units 05:36 Total Bilirubin 0.9 (0.2-1.0) mg/dL AST 22 (15-37) U/L ALT 66 H (16-63) U/L Alkaline Phosphatase 282 H (46-116) U/L Albumin 2.4 L (3.4-5.0) g/dL Progress Note: A&P Assessment and Plan (1) Edema, peripheral: (2) Hypoxic episode: (3) CHF (congestive heart failure): Plan Admission findings: Respiratory distress, acute hypoxia with O2 sat less than 90%, hyponatremia, elevated liver function test, elevated BNP secondary to acute combined congestive heart failure. Acute hypoxia-slowly improving Acute combined congestive heart failure on top of chronic combined congestive heart failure-echocardiogram with good ejection fraction, some improvement with his diuresis yesterday. Continue with current treatment plan as recommended by cardiology L Coronary artery disease with pulmonary hypertension-bypass approximately a month ago. Well-healed scar. 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 Hyponatremia-improving Acute kidney injury on admission greater than 20% above baseline. Improving. Back to baseline currently. Low T3- - T4 is normal and TSH is normal-doubt that this is having an impact on his heart failure. Iron deficiency anemia as well as anemia possibly related to his previous bypass surgery. Down somewhat today Elevated liver function test likely related to passive congestion. Somewhat today Hypercholesterolemia-continue with current medications Hypomagnesemia-continue supplementation, check level-continue to monitor GERD-continue with PPI, monitor blood counts daily Insomnia-continue trazodone Low back pain-continue with muscle relaxers BPH-continue with home medications and check UA Admission status: Patient with severe peripheral edema, medically necessary treatment will span 2 midnights. Inpatient status.-Likely 2 more days of IV therapy.
[2023-10-26] MEDS: ENSURE HP 237 ML LIQUID PO ×2 (09:10→21:43)
--- NOTE | 2023-10-26 10:56 | REH.PTDLY ---
Physical Therapy Daily Note PT Daily Note/Assess Start: 10/26/23 10:54 Freq: Status: Active Protocol: Document 10/26/23 10:54 STEVE (Rec: 10/26/23 10:56 STEVE [id number]) Visit Not Completed Visit Not Completed Due to: Other Other Reason Visit Not Completed Pt in bed upon arrival, pt states he is doing much better and is fine getting around. Getting up on his own in room and getting ready to take a shower. Declines PT as he feels he has no need for it. Spoke with AKILAH Díaz and she states that pt is Ind and ok to DC from PT. Physical Therapy Daily Note/Assessment Time In 10:40 Time Out 10:42
--- NOTE | 2023-10-26 12:10 | SWNOTE1 ---
SW faxed updates to [facility]. Updates included Physician notes and PT notes.
[2023-10-26 14:07] LABS: Internal Control Within Normal Limits; Occult Blood Negative
[2023-10-26] MEDS: TIZANIDINE HCL 4 MG TABLET PO (21:43)
[2023-10-27] VITALS (20 sets, daily range): BP systolic 94–118; BP diastolic 49–68; PULSE 72–90; TEMP 36.3–36.7; O2SAT 79–97
[2023-10-27] MEDS: OMEPRAZOLE 40 MG CAPSULE.DR PO (05:42)
[2023-10-27] MEDS: GABAPENTIN 300 MG CAPSULE 600 MG PO ×3 (05:42→21:31)
[2023-10-27] MEDS: SPIRONOLACTONE 25 MG TABLET 50 MG PO (05:42)
[2023-10-27 07:12] LABS: Basophils Percent Auto 0.5 % (0.2-2.0); Eosinophils Absolute Auto 0.1 10^3/uL (0.0-0.7); Eosinophils Percent Auto 0.7 % (0.9-7.0); Hematocrit 30.8 % (42.0-54.0); Hemoglobin 9.8 g/dL (14.0-18.0); Immature Granulocytes Abs Auto 0.06 10^3/uL (0.00-0.03); Immature Granulocytes Pct Auto 0.8 % (0.0-0.5); Lymphocytes Absolute Auto 0.8 10^3/uL (1.2-3.8); Lymphocytes Percent Auto 10.7 % (20.5-60.0); Mean Corpuscular HGB Conc 31.8 g/dL (29.9-35.2); Mean Corpuscular Hemoglobin 27.1 pg (25.9-34.0); Mean Corpuscular Volume 85.1 fL (80.0-94.0); Mean Platelet Volume 9.7 fL (9.5-13.5); Monocytes Absolute Auto 0.9 10^3/uL (0.3-0.8); Monocytes Percent Auto 11.5 % (1.7-12.0); Neutrophils Absolute Auto 5.6 10^3/uL (1.4-6.5); Neutrophils Percent Auto 75.8 % (43.0-75.0); Platelet Count 296 10^3/uL (150-450); Red Blood Count 3.62 10^6/uL (4.70-6.10); White Blood Count 7.4 10^3/uL (4.0-11.0)
[2023-10-27 07:47] LABS: Alanine Aminotransferase 52 U/L (16-63); Albumin Globulin Ratio 0.7; Albumin Level 2.3 g/dL (3.4-5.0); Alkaline Phosphatase 254 U/L (46-116); Anion Gap 6.2; Aspartate Amino Transferase 18 U/L (15-37); BUN Creatinine Ratio 18.8; Bilirubin Total 0.8 mg/dL (0.2-1.0); Calcium 8.6 mg/dL (8.5-10.1); Carbon Dioxide 36.9 mmol/L (21.0-32.0); Chloride 99 mmol/L (98-107); Estimated GFR (African America >60 (>=60); Estimated GFR (Non-African Ame >60 (>=60); Globulin 3.4 g/dL; Glucose 109 mg/dL (74-106); Magnesium 2.2 mg/dL (1.8-2.4); Potassium 5.1 mmol/L (3.5-5.1); Sodium 137 mmol/L (136-145); Total Protein 5.7 g/dL (6.4-8.2); Troponin I High Sensitivity 42.8 pg/mL (4.0-76.1)
[2023-10-27] MEDS: ATORVASTATIN CALCIUM 40 MG TABLET 80 MG PO (08:43)
[2023-10-27] MEDS: MAGNESIUM OXIDE 400 MG TABLET PO ×2 (08:43→21:31)
[2023-10-27] MEDS: FUROSEMIDE 40 MG/4 ML VIAL 80 MG IVP ×2 (08:43→21:30)
[2023-10-27] MEDS: ALFUZOSIN HCL 10 MG TAB.ER.24H PO (08:43)
[2023-10-27] MEDS: METOPROLOL SUCCINATE 25 MG TAB.ER.24H 12.5 MG PO (08:43)
[2023-10-27] MEDS: ENSURE HP 237 ML LIQUID PO ×2 (08:43→21:30)
[2023-10-27] MEDS: CLOPIDOGREL BISULFATE 75 MG TABLET PO (08:43)
[2023-10-27] MEDS: SACUBITRIL/VALSARTAN 24 MG-26 MG TABLET 0.5 TAB PO ×2 (08:43→21:31)
[2023-10-27] MEDS: ASPIRIN 81 MG TABLET.DR PO (08:43)
[2023-10-27] MEDS: FLUTICASONE PROPIONATE 50 MCG NASAL SPRAY 2 SPRAY NS (08:44)
--- NOTE | 2023-10-27 09:03 | CM.NOTE ---
Rounds made with Dr. Cortez, continue diuresis for today and possible discharge to home tomorrow. Bilat lower extremity edema showing improvement and pt verbalizes abdomen does not feel as firm.
--- NOTE | 2023-10-27 09:04 | P.PN_ITS ---
Progress Note: Subjective Subjective Interval history: States he does feel better with his breathing but still some labored breathing with activity Exam Constitutional Vital Signs, click to edit/add: Last Vital Signs Temp 97.5 F L 10/27/23 08:54 Pulse 88 10/27/23 08:54 Resp 22 H 10/27/23 08:54 BP 110/61 10/27/23 08:54 Pulse Ox 79 L 10/27/23 08:54 O2 Del Method Room Air 10/27/23 08:54 O2 Flow Rate 1 10/27/23 03:55 Documenting provider has reviewed patient's vital signs: yes Common normals: no apparent distress Chest Common normals: inspection of chest normal Respiratory Common normals: normal respiratory effort, no retractions and no use of accessory muscles Auscultation: rales (Leon up lung mcghee) Cardio Common normals: regular rate and regular rhythm GI Common normals: Normal to inspection, nondistended, normoactive bowel sounds present and soft to palpation (Does have edema to the skin. No fluid wave for ascites) Common normals: no CVA tenderness; external exam abnormal (Penile edema) Extremity Common normals: abnormal to inspection (2-3+ edema with tight, No skin breakdown) Progress Note: Objective Labs Labs: Short CBC 10/27/23 Range/Units 06:19 WBC 7.4 (4.0-11.0) 10^3/uL Hgb 9.8 L (14.0-18.0) g/dL Hct 30.8 L (42.0-54.0) % Plt Count 296 (150-450) 10^3/uL BMP 10/27/23 06:19 Sodium 137 Potassium 5.1 Chloride 99 Carbon Dioxide 36.9 H BUN 22.0 H Creatinine 1.17 Glucose 109 H Calcium 8.6 Liver Function 10/27/23 Range/Units 06:19 Total Bilirubin 0.8 (0.2-1.0) mg/dL AST 18 (15-37) U/L ALT 52 (16-63) U/L Alkaline Phosphatase 254 H (46-116) U/L Albumin 2.3 L (3.4-5.0) g/dL Progress Note: A&P Assessment and Plan (1) Edema, peripheral: (2) Hypoxic episode: (3) CHF (congestive heart failure): Plan Admission findings: Respiratory distress, acute hypoxia with O2 sat less than 90%, hyponatremia, elevated liver function test, elevated BNP secondary to acute combined congestive heart failure. Acute hypoxia-slowly improving, still on 1 L will try to wean off of that today. He does have a slight wheeze Acute combined congestive heart failure on top of chronic combined congestive heart failure-echocardiogram with good ejection fraction, some improvement with his diuresis yesterday. Continue with current treatment plan as recommended by cardiology, does seem like you are making progress 2 L off yesterday. 1 additional day would be beneficial long-term Coronary artery disease with pulmonary hypertension-bypass approximately a month ago. Well-healed scar. 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 Hyponatremia-improving Acute kidney injury on admission greater than 20% above baseline. Improving. Back to baseline currently. Low T3- - T4 is normal and TSH is normal-doubt that this is having an impact on his heart failure. Iron deficiency anemia as well as anemia possibly related to his previous bypass surgery. Continue to monitor Elevated liver function test likely related to passive congestion. Continue to monitor Hypercholesterolemia-continue with current medications Hypomagnesemia-continue supplementation, check level-continue to monitor GERD-continue with PPI, monitor blood counts daily Insomnia-continue trazodone Low back pain-continue with muscle relaxers BPH-continue with home medications and check UA Admission status: Patient with severe peripheral edema, medically necessary treatment will span 2 midnights. Inpatient status.-Likely 2 more days of IV therapy.
[2023-10-27] MEDS: TIZANIDINE HCL 4 MG TABLET PO (21:30)
[2023-10-28] VITALS (20 sets, daily range): BP systolic 100–130; BP diastolic 63–72; PULSE 76–87; TEMP 36.4–36.8; O2SAT 81–97
[2023-10-28] MEDS: OMEPRAZOLE 40 MG CAPSULE.DR PO (05:50)
[2023-10-28] MEDS: GABAPENTIN 300 MG CAPSULE 600 MG PO ×2 (05:51→13:58)
[2023-10-28] MEDS: SPIRONOLACTONE 25 MG TABLET 50 MG PO (05:51)
[2023-10-28 06:22] LABS: Basophils Absolute Auto 0.1 10^3/uL (0.0-0.1); Basophils Percent Auto 0.8 % (0.2-2.0); Eosinophils Absolute Auto 0.1 10^3/uL (0.0-0.7); Hemoglobin 9.2 g/dL (14.0-18.0); Immature Granulocytes Abs Auto 0.04 10^3/uL (0.00-0.03); Immature Granulocytes Pct Auto 0.6 % (0.0-0.5); Lymphocytes Absolute Auto 0.8 10^3/uL (1.2-3.8); Lymphocytes Percent Auto 11.4 % (20.5-60.0); Mean Corpuscular HGB Conc 31.7 g/dL (29.9-35.2); Mean Corpuscular Hemoglobin 26.9 pg (25.9-34.0); Mean Corpuscular Volume 84.8 fL (80.0-94.0); Mean Platelet Volume 9.7 fL (9.5-13.5); Monocytes Absolute Auto 0.8 10^3/uL (0.3-0.8); Monocytes Percent Auto 11.5 % (1.7-12.0); Neutrophils Absolute Auto 5.3 10^3/uL (1.4-6.5); Neutrophils Percent Auto 74.7 % (43.0-75.0); Platelet Count 285 10^3/uL (150-450); Red Blood Count 3.42 10^6/uL (4.70-6.10); Red Cell Distribution Width 18.3 % (11.0-15.0); White Blood Count 7.1 10^3/uL (4.0-11.0)
[2023-10-28 06:50] LABS: Alanine Aminotransferase 42 U/L (16-63); Albumin Globulin Ratio 0.6; Albumin Level 2.3 g/dL (3.4-5.0); Alkaline Phosphatase 234 U/L (46-116); Anion Gap 5.3; Aspartate Amino Transferase 14 U/L (15-37); BUN Creatinine Ratio 20.7; Bilirubin Total 0.7 mg/dL (0.2-1.0); Calcium 8.4 mg/dL (8.5-10.1); Carbon Dioxide 37.1 mmol/L (21.0-32.0); Chloride 96 mmol/L (98-107); Estimated GFR (African America >60 (>=60); Estimated GFR (Non-African Ame >60 (>=60); Globulin 3.6 g/dL; Glucose 84 mg/dL (74-106); Magnesium 2.1 mg/dL (1.8-2.4); Potassium 4.4 mmol/L (3.5-5.1); Sodium 134 mmol/L (136-145); Total Protein 5.9 g/dL (6.4-8.2); Troponin I High Sensitivity 42.3 pg/mL (4.0-76.1)
--- NOTE | 2023-10-28 08:15 | CT_ITS ---
[address] [address] Patient Name: RADHA BRAXTON MRN: [id number] date: 1955 Sex: M Assigned Patient Location: [place] Current Patient Location: Accession/Order Number: [id number] Exam Date: 10/28/2023 14:55 Report Date: 10/28/2023 15:46 At the request of: CLAU MCMILLAN Procedure: CT angio chest EXAMINATION: CT angio chest HISTORY: hypoxia COMPARISON: CT chest 03/12/2023 TECHNIQUE: Multi-planar CT images were created with IV contrast. Axial, Coronal, and Sagittal images. Dose reduction techniques were achieved by using automated exposure control and/or adjustment of mA and/or kV according to patient size and/or use of iterative reconstruction technique. 3-D reconstruction was performed on a separate workstation. FINDINGS: VASCULATURE: No pulmonary embolism or abnormal opacity. LUNGS: Partial collapse of the right lower lobe with patent bronchi. Partial collapse of the basilar segments of left lower lobe and coarse stranding within the superior segment. PLEURA: Right pleural effusion 3.3 cm in thickness. Trace amount left pleural fluid and small amount of free air within the posterior basilar pleural space, likely loculated. RONDA: Mild adenopathy. MEDIASTINUM: Mild adenopathy. CARDIAC: Cardiomegaly and small pericardial effusion. AORTA: No aneurysm or dissection. CHEST WALL: No mass or axillary adenopathy. BONES: Nondisplaced fracture anterior left second rib. LIMITED ABDOMEN: No suspicious findings. Limited images of the upper abdomen. OTHER: Negative. CT/CT angio chest IMPRESSION: 1. No pulmonary embolism. 2. Large right pleural effusion and partial collapse of right lower lobe; likely passive atelectasis. 2. Tiny loculated left pleural effusion containing a small amount of free air. Moderate atelectasis or less likely infiltrates within left lung base. 3. Mild hilar and mediastinal lymphadenopathy, likely reactive. 4. Cardiomegaly and small pericardial effusion; grossly stable. 5. New nondisplaced fracture of anterior left rib suspected to be acute or subacute. Electronically authenticated by: JETHRO SHARPE Date: 10/28/2023 15:46
--- NOTE | 2023-10-28 08:17 | P.DS_ITS ---
DS: Providers Provider Date of admission: 10/24/23 17:08 Primary care physician: Epifanio Montelongo DO Consults: 10/24/23 18:25 Physical Therapy Eval and Treat Routine Reason for consultation: Eval and Treat Has provider been notified: No 10/25/23 08:35 Consult to Cardiology Routine Reason for consultation: chf Has provider been notified: No DS: Diagnosis Discharge Diagnosis (1) Edema, peripheral: (2) Hypoxic episode: (3) CHF (congestive heart failure): Plan Admission findings: Respiratory distress, acute hypoxia with O2 sat less than 90%, hyponatremia, elevated liver function test, elevated BNP secondary to acute combined congestive heart failure. Acute hypoxia-slowly improving, still on 1 L will try to wean off of that today. He does have a slight wheeze Acute combined congestive heart failure on top of chronic combined congestive heart failure-echocardiogram with good ejection fraction, some improvement with his diuresis yesterday. Continue with current treatment plan as recommended by cardiology, does seem like you are making progress 2 L off yesterday. 1 additional day would be beneficial long-term Coronary artery disease with pulmonary hypertension-bypass approximately a month ago. Well-healed scar. 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 Hyponatremia-improving Acute kidney injury on admission greater than 20% above baseline. Improving. Back to baseline currently. Low T3- - T4 is normal and TSH is normal-doubt that this is having an impact on his heart failure. Iron deficiency anemia as well as anemia possibly related to his previous bypass surgery. Continue to monitor Elevated liver function test likely related to passive congestion. Continue to monitor Hypercholesterolemia-continue with current medications Hypomagnesemia-continue supplementation, check level-continue to monitor GERD-continue with PPI, monitor blood counts daily Insomnia-continue trazodone Low back pain-continue with muscle relaxers BPH-continue with home medications and check UA Admission status: Patient with severe peripheral edema, medically necessary treatment will span 2 midnights. Inpatient status.-Likely 2 more days of IV therapy. DS: Summary Hospital Course Hospital Course: Face to face evbal completed for home O2 - 2l - Taken off supplemental Oxygen and without walking o2 saturations went 87% on room air. Patient was seen and evaluated as an outpatient found to have significant fluid overload, recommended to the emergency room. Patient is a recent history of coronary artery bypass grafting surgery. Was taken off his diuretics because he was doing so well. Over the last several days has had increasing swelling. Tried restarting his home diuretics without any significant success. Patient was admitted, started on initially on Bumex drip. Had very minimal extra output with that. The drip was changed to Lasix and Aldactone combination. He has had good output with that 5 L. Unable to wean him off of his supplemental oxygen. He is currently still at 87% on room air at rest. Titrate up nicely with supplemental oxygen at 2 L. So he will need home oxygen. With his diuresis improving. He can be discharged to home with his home diuretics. There is some small concern for pulmonary embolism as a cause for the hypoxia. Recommend checking CTA prior to discharge. He needs to undergo the emergent protocol for contrast allergy prophylaxis. To be given 200 mg of hydrocortisone, then within a 4-hour window of doing the CT scan he will get 50 mg of Benadryl [address] scan. Assuming his CT scan is negative, would send home with tapering doses of prednisone due to the contrast allergy, he can manage his sugars with his glucometer and pump. And then restarting his diuretics. Follow-up with cardiology through [facility] at [facility] as an outpatient. And his PCP also within the next week. Time Spent with Patient Time attestation: Total time spent providing and/or coordinating discharge services: Exam Constitutional Vital Signs, click to edit/add: Last Vital Signs Temp 98.2 F 10/28/23 03:12 Pulse 83 10/28/23 05:53 Resp 18 10/28/23 03:12 BP 100/65 10/28/23 03:12 Pulse Ox 93 L 10/28/23 04:50 O2 Del Method Nasal Cannula 10/28/23 04:50 O2 Flow Rate 2 10/28/23 04:50 Documenting provider has reviewed patient's vital signs: yes Common normals: no apparent distress Chest Common normals: inspection of chest normal Respiratory Common normals: normal respiratory effort, no retractions and no use of accessory muscles Auscultation: rales (Minimal in bases) Cardio Common normals: regular rate and regular rhythm GI Common normals: Normal to inspection, nondistended, normoactive bowel sounds present and soft to palpation (Does have edema to the skin. No fluid wave for ascites) Common normals: no CVA tenderness; external exam abnormal (Penile edema) Extremity Common normals: abnormal to inspection (2-3+ edema with tight, No skin breakdown) DS: Data Data Completed and Pending Labs on day of discharge: Labs from last 24 hours 10/28/23 05:44 WBC 7.1 RBC 3.42 L Hgb 9.2 L Hct 29.0 L MCV 84.8 MCH 26.9 MCHC 31.7 RDW 18.3 H Plt Count 285 MPV 9.7 Neut % (Auto) 74.7 Lymph % (Auto) 11.4 L [place] % (Auto) 11.5 Eos % (Auto) 1.0 Baso % (Auto) 0.8 Neut # (Auto) 5.3 Lymph # (Auto) 0.8 L [place] # (Auto) 0.8 Eos # (Auto) 0.1 Baso # (Auto) 0.1 Abs Immat Gran (auto) 0.04 H Imm/Tot Granulo (auto) 0.6 H Sodium 134 L Potassium 4.4 Chloride 96 L Carbon Dioxide 37.1 H Anion Gap 5.3 BUN 23.0 H Creatinine 1.11 Est GFR ( Amer) >60 Est GFR (Non-Af Amer) >60 BUN/Creatinine Ratio 20.7 Glucose 84 Calcium 8.4 L Magnesium 2.1 Total Bilirubin 0.7 AST 14 L ALT 42 Alkaline Phosphatase 234 H Troponin I High Sens 42.3 NT-Pro-B Natriuret Pep 5969.0 H* Total Protein 5.9 L Albumin 2.3 L Globulin 3.6 Albumin/Globulin Ratio 0.6 Discharge Plan Discharge Disposition: Home, Self-Care Discharge Medications: New prednisone 10 mg tablet 50 mg PO DAILY Qty: 47 0RF Rx Instructions: 5/day for 3 days. 4/day for 3 days, 3/day for 3 days, 2/day for 3 days, 1/day for 3 days, 1/2 /day for 4 days Continued atorvastatin 80 mg tablet 80 mg PO DAILY gabapentin 600 mg tablet 600 mg PO TID torsemide 20 mg tablet 40 mg PO DAILY tizanidine 4 mg tablet 4 mg PO BEDTIME spironolactone 25 mg tablet 25 mg PO DAILY pantoprazole 40 mg tablet,delayed release (DR/EC) 40 mg PO DAILY metoprolol succinate 25 mg tablet extended release 24 hr 12.5 mg PO DAILY alfuzosin 10 mg tablet extended release 24 hr 10 mg PO DAILY Entresto 24-26 mg tablet 0.5 tab PO BID aspirin [Adult Aspirin Regimen] 81 mg tablet,delayed release (DR/EC) 81 mg PO DAILY clopidogrel 75 mg tablet 75 mg PO DAILY fluticasone propionate 50 mcg/actuation spray,suspension 2 spray INTRANASAL DAILY insulin lispro [Humalog U-100 Insulin] 100 unit/mL solution 1 - 20 unit continuous subcutaneous infusion ACHS Rx Instructions: UP TO 80 UNITS/DAY magnesium oxide 400 mg (241.3 mg magnesium) tablet 400 mg PO BID trazodone 50 mg tablet 25 mg PO .QHS PRN (Reason: sleep) Print Language: Wolof Forms: Portal Instructions
--- NOTE | 2023-10-28 08:45 | CM.NOTE ---
Rounds made with Dr. Cortez, pt remains on oxygen 2L NC at this time. Pt becomes very hypoxic with activity per RN. Dr. Cortez will order CTA with protocol d/t pt allergy to r/o PE.
[2023-10-28] MEDS: ALFUZOSIN HCL 10 MG TAB.ER.24H PO (09:35)
[2023-10-28] MEDS: METOPROLOL SUCCINATE 25 MG TAB.ER.24H 12.5 MG PO (09:35)
[2023-10-28] MEDS: ATORVASTATIN CALCIUM 40 MG TABLET 80 MG PO (09:35)
[2023-10-28] MEDS: SACUBITRIL/VALSARTAN 24 MG-26 MG TABLET 0.5 TAB PO (09:35)
--- NOTE | 2023-10-28 09:35 | CM.NOTE ---
2nd Notice of Impportant Message From Medicare discussed with pt, pt denies any questions or concerns.
[2023-10-28] MEDS: ASPIRIN 81 MG TABLET.DR PO (09:36)
[2023-10-28] MEDS: ENSURE HP 237 ML LIQUID PO (09:36)
[2023-10-28] MEDS: CLOPIDOGREL BISULFATE 75 MG TABLET PO (09:36)
[2023-10-28] MEDS: FUROSEMIDE 40 MG/4 ML VIAL 120 MG IVP (09:36)
[2023-10-28] MEDS: MAGNESIUM OXIDE 400 MG TABLET PO (09:36)
[2023-10-28] MEDS: FLUTICASONE PROPIONATE 50 MCG NASAL SPRAY 2 SPRAY NS (09:37)
[2023-10-28] MEDS: HYDROCORTISONE SODIUM SUCC PF 100 MG/2 ML VIAL 200 MG IVP ×2 (10:56→14:44)
--- NOTE | 2023-10-28 11:52 | SWNOTE1 ---
Likely need for home oxygen. CRISELDA sent over DME form to be signed by Dr. Cortez and will need docmentation to send to [employer]. SW to talk with pt about what [employer].
[2023-10-28] MEDS: DIPHENHYDRAMINE HCL 25 MG CAPSULE 50 MG PO (13:58)
--- NOTE | 2023-10-28 14:48 | SWNOTE1 ---
SW called over to [facility], they did receive referral and are working on it.
--- NOTE | 2023-10-28 15:46 | SWNOTE1 ---
SW called again to check in pt's oxygen and spoek with Traci. She is waiting to get confirmation to dispense the oxygen. She will call when everything is good.
--- NOTE | 2023-10-28 16:21 | SWNOTE1 ---
Pt's oxygen is all set. SW provided pt with phone number to call once he is on way home. SW updated nursing as well. Pt will go home with [facility].
[2023-10-28] MEDS: FUROSEMIDE 40 MG/4 ML VIAL 120 MG IV (17:51)
--- NOTE | 2023-10-31 14:48 | CM.DCFOLLOWU ---
Person spoke with: patient and the home health nurse How are you feeling? well How is your pain? none Did you understand your discharge instructions? yes Do you have any questions about your discharge instructions? no Were you given any prescriptions at discharge? yes Were you able to get your prescriptions filled? home health nurse asked where they were sent to? Advised they were sent to [facility]. 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 yes Do you have any questions about your follow up appointment and do you plan to keep your follow up appointment? no questions, nurse spoke with Dr. Montelongo's office today and they will be calling patient back to schedule follow up Is there anything else that you would like to discuss? no Questions/Comments/Concerns/Other: none
== END 2023-10-28 18:15 | disposition home health service (06) | DRG 291 ==
LOC: ER 16:21 → MS 17:12
PROVIDERS: Physician Assistant; Admitting Provider Family Medicine; Emergency Provider Emergency Medicine; PCP Internal Medicine; Visit Provider Family Medicine
DX: I11.0 Hypertensive heart disease with heart failure (principal); I50.43 Acute on chronic combined systolic (congestive) and diastolic (congestive) heart failure; E87.1 Hypo-osmolality and hyponatremia; N17.9 Acute kidney failure, unspecified; R06.03 Acute respiratory distress; R09.02 Hypoxemia; R79.89 Other specified abnormal findings of blood chemistry; Z95.1 Presence of aortocoronary bypass graft; I25.10 Atherosclerotic heart disease of native coronary artery without angina pectoris; E11.42 Type 2 diabetes mellitus with diabetic polyneuropathy; Z79.4 Long term (current) use of insulin; Z96.41 Presence of insulin pump (external) (internal); D50.9 Iron deficiency anemia, unspecified; E78.00 Pure hypercholesterolemia, unspecified; E83.42 Hypomagnesemia; K21.9 Gastro-esophageal reflux disease without esophagitis; G47.00 Insomnia, unspecified; M54.50 Low back pain, unspecified; N40.0 Benign prostatic hyperplasia without lower urinary tract symptoms; D64.9 Anemia, unspecified; Z91.041 Radiographic dye allergy status; R94.6 Abnormal results of thyroid function studies; I27.20 Pulmonary hypertension, unspecified; Z99.81 Dependence on supplemental oxygen
CPT/HCPCS: 36415; 51798; 71045; 71275; 80053; 81001; 82800; 82948; 83735; 83880; 84436; 84443; 84481; 84484; 85025; 85610; 85730; 87086; 93005; 93306; 94667; 94668; 94761; 96365; 96366; 96375; 96376; 97161; 99285; G0328; J1720; J1940; Q9967

== ENCOUNTER 2023-11-02 12:41 | Inpatient (IN) | payer MEDICARE, OTHER, SELFPAY ==
[2023-11-02] VITALS (9 sets, daily range): BP systolic 72–101; BP diastolic 39–62; PULSE 55–73; TEMP 36.3; O2SAT 90–92; BMI 32.7; BMI 35.8
--- NOTE | 2023-11-02 13:03 | ECG_ITS ---
The [facility] Test Date: 2023-11-02 Pat Name: RADHA BRAXTON Department: Room: - Gender: Male Electrocardiogram Technician: : 1955 Requested By: CHIOMA MCGOWAN Order Number: [id number] Reading MD: CHIOMA MCGOWAN Measurements Intervals [place] Rate: 63 P: 60 NH: 168 QRS: 121 QRSD: 132 T: -10 QT: 444 QTc: 451 Interpretive Statements 1100 Sinus rhythm 1570 with occasional ventricular premature complexes 2450 Right bundle branch block 2730 Left posterior fascicular block 9150 abnormal ECG Electronically Signed On 11-02-2023 18:12:01 EDT by CHIOMA MCGOWAN
--- NOTE | 2023-11-02 13:03 | XR_ITS ---
The [address] [address] Patient Name: RADHA BRAXTON MRN: [id number] date: 1955 Sex: M Assigned Patient Location: ER Current Patient Location: ED.MAIN Accession/Order Number: [id number] Exam Date: 11/02/2023 13:20 Report Date: 11/02/2023 14:14 At the request of: DIANE WEEMS Procedure: XR chest 1V EXAMINATION: XR chest 1V HISTORY: shortness of breath COMPARISON: XR chest 10/24/2023 FINDINGS: LUNGS: Dense opacities obscuring the lung bases bilaterally. VASCULATURE: No increased pulmonary vasculature. PLEURA: Suspect bilateral pleural effusions. CARDIAC: Grossly stable cardiomegaly. Prior sternotomy. MEDIASTINUM: No visible mass or adenopathy. BONES: No fracture or visible bone lesion. OTHER: Negative. XR/XR chest 1V IMPRESSION: 1. Suspect bilateral pleural effusions and moderate-marked basilar infiltrates versus atelectasis; not significantly changed. 2. Grossly stable cardiomegaly. Electronically authenticated by: JETHRO SHARPE Date: 11/02/2023 14:14
--- NOTE | 2023-11-02 13:11 | ED_ITS ---
HPI - SOB/Dyspnea General Chief Complaint: Shortness of Breath/Dyspnea Stated Complaint: SOB Time Seen by Provider: 11/02/23 13:06 Source: patient Mode of arrival: Wheelchair History of Present Illness HPI Narrative: Patient is a 68-year-old male with a history of ischemic cardiomyopathy, recent CABG x 3 at [facility] who presents back to the emergency department after being discharged 5 days ago for 15 pound weight gain, increasing shortness of breath, peripheral edema. Patient was admitted to this hospital for CHF exacerbation, he underwent diuresis in the hospital and was recently discharged on a prednisone taper which he was given for a contrast allergy for CTA on 10/28/2023. Patient denies chest pain. He states he has noticed elevated blood sugars, weight gain in the lower extremities and abdomen since discharge. He has no fevers, vomiting, sputum production. He followed up with his primary care provider today who sent him back to this emergency department to be transferred to [facility] for further evaluation by his manager intensive care unit. Related Data Home Medications ?Medication ?Instructions ?Recorded ?Confirmed alfuzosin 10 mg tablet,extended 10 mg PO DAILY 10/24/23 11/02/23 release 24 hr aspirin 81 mg tablet,delayed 81 mg PO DAILY 10/24/23 11/02/23 release (Adult Aspirin Regimen) atorvastatin 80 mg tablet 80 mg PO DAILY 10/24/23 11/02/23 clopidogrel 75 mg tablet 75 mg PO DAILY 10/24/23 11/02/23 fluticasone propionate 50 2 spray intranasal DAILY 10/24/23 11/02/23 mcg/actuation nasal spray,suspension gabapentin 600 mg tablet 600 mg PO TID 10/24/23 11/02/23 insulin lispro 100 unit/mL 1 - 20 unit continuous 10/24/23 11/02/23 subcutaneous solution (Humalog subcutaneous infusion ACHS U-100 Insulin) magnesium oxide 400 mg (241.3 mg 400 mg PO BID 10/24/23 11/02/23 magnesium) tablet metoprolol succinate 25 mg 25 mg PO DAILY 10/24/23 11/02/23 tablet,extended release 24 hr pantoprazole 40 mg tablet,delayed 40 mg PO DAILY 10/24/23 11/02/23 release sacubitril 24 mg-valsartan 26 mg 0.5 tab PO BID 10/24/23 11/02/23 tablet (Entresto) spironolactone 25 mg tablet 25 mg PO DAILY 10/24/23 11/02/23 tizanidine 4 mg tablet 4 mg PO BEDTIME 10/24/23 11/02/23 torsemide 20 mg tablet 40 mg PO DAILY 10/24/23 11/02/23 trazodone 50 mg tablet 25 mg PO .QHS PRN sleep 10/24/23 11/02/23 Previous Rx's ?Medication ?Instructions ?Recorded prednisone 10 mg tablet 50 mg (5 x 10 mg) PO DAILY #47 tabs 10/28/23 Allergies Allergy/AdvReac Type Severity Reaction Status Date / Time Iodinated Contrast Media AdvReac Mild Hives Verified 10/24/23 15:13 Review of Systems ROS Constitutional Denies: fever or chills Ears, nose, mouth, and throat Denies: throat pain or nasal congestion Cardiovascular Reports: edema and shortness of breath with exertion; Denies: chest pain Respiratory Reports: shortness of breath; Denies: cough Gastrointestinal Denies: abdominal pain, nausea or vomiting Musculoskeletal Denies: back pain or neck pain Integumentary/Breast Denies: rash Hematologic/Lymphatic Denies: easy bruising or easy bleeding [facility] Medical History (Updated 11/02/23 @ 17:35 by Shaikh Janet MD) CAD (coronary artery disease) ?I25.10 - Atherosclerotic heart disease of [place] coronary artery without angina pectoris (ICD-10) Edema, peripheral ?R60.0 - Localized edema (ICD-10) Hypoxic episode ?R09.02 - Hypoxemia (ICD-10) CHF (congestive heart failure) ?I50.9 - Heart failure, unspecified (ICD-10) Fractured skull ?S02.91XA - Unspecified fracture of skull, initial encounter for closed fracture (ICD-10) Amputated toe of right foot ?S98.131A - Complete traumatic amputation of one right lesser toe, initial encounter (ICD-10) BPH (benign prostatic hyperplasia) ?N40.0 - Benign prostatic hyperplasia without lower urinary tract symptoms (ICD-10) GERD (gastroesophageal reflux disease) ?K21.9 - Gastro-esophageal reflux disease without esophagitis (ICD-10) Diabetes mellitus ?E11.9 - Type 2 diabetes mellitus without complications (ICD-10) Neuropathy ?G62.9 - Polyneuropathy, unspecified (ICD-10) Hyperlipemia ?E78.5 - Hyperlipidemia, unspecified (ICD-10) Partial bowel obstruction ?K56.600 - Partial intestinal obstruction, unspecified as to cause (ICD-10) Surgical History Hx of thumb surgery ?Z98.890 - Other specified postprocedural states (ICD-10) S/P triple vessel bypass ?Z95.1 - Presence of aortocoronary bypass graft (ICD-10) Family History Mother Family history of CHF (congestive heart failure) Family history of hypertension Father Family history of cancer Social History Within the past year, how often did you have a drink containing alcohol: monthly or less Within the past year, how often did you have six or more drinks on one occasion: never Smoking status: Never smoker Second hand tobacco smoke exposure: No Non-prescribed substance use: denies 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 Known occupational exposures/hazards: No Highest level of school completed/degree received: Associate degree: academic program Do you want help with school or training: No Are you now , , , , never or living with a partner: In a typical week, how many times do you talk on the telephone with family, friends, or neighbors: 3 or more times per week How often do you get together with friends or relatives: 3 or more times per week How often do you attend catholic or caodaism services: 4 or more times per year Do you belong to any clubs or organizations such as catholic groups unions, fraternal or athletic groups, or school groups: yes Total score: 3 Score interpretation: A score of greater than or equal to 2 indicates the lowest level of social isolation. Little interest or pleasure in doing things: not at all Feeling down, depressed, or hopeless: not at all Feel stressed/tense/nervous/anxious/difficulty sleeping: not at all Due to disability, difficulty making decisions: No Do you think of yourself as: straight/heterosexual Gender Identity: male Exam Narrative Exam Narrative: Gen.: Awake, alert, in no distress Head: Normocephalic, atraumatic ENT: Moist mucous membranes Respiratory: No respiratory distress, diminished lung sounds globally Cardio: Regular rate and rhythm Gastrointestinal: Abdomen is soft, nondistended and nontender to palpation Extremities: Moves extremities equally, diffuse non pitting edema Psych: Normal mood and affect Neuro: No focal neuro deficit Skin: Warm, dry, intact Constitutional Vital Signs, click to edit/add: Last Vital Signs Temp 97.4 F L 11/02/23 18:15 Pulse 67 11/02/23 18:15 Resp 22 H 11/02/23 18:15 BP 97/62 11/02/23 18:15 Pulse Ox 90 L 11/02/23 18:15 O2 Del Method Nasal Cannula 11/02/23 18:15 O2 Flow Rate 2 11/02/23 18:15 Course Vital Signs Vital signs: Vital Signs Pulse Rate 73 11/02/23 12:46 Respiratory Rate 24 H 11/02/23 12:46 Blood Pressure 101/50 11/02/23 12:46 Pulse Oximetry 90 L 11/02/23 12:46 Oxygen Delivery Method Room Air 11/02/23 12:46 Temperature 97.4 F L 11/02/23 18:15 Pulse Rate 67 11/02/23 18:15 Respiratory Rate 22 H 11/02/23 18:15 Blood Pressure 97/62 11/02/23 18:15 Pulse Oximetry 90 L 11/02/23 18:15 Oxygen Delivery Method Nasal Cannula 11/02/23 18:15 Oxygen Delivery Flow Rate 2 11/02/23 18:15 MDM - SOB/Dyspnea MDM Narrative Medical decision making narrative: On arrival, patient was found to be borderline hypoxic and was placed on oxygen by nasal cannula. He reports feeling much better on the oxygen. He maintains otherwise normal vital signs, blood pressure is soft. Laboratory studies reviewed and noted with stable anemia, patient with hyponatremia likely secondary to hyperglycemia with a blood sugar of 560. Lactic acid is elevated at 3.0 and patient's BUN and creatinine have increased significantly to 67 and 2.3. BNP is elevated at 15,000 which is higher than the patient's previous admission. I did order an insulin bolus for the patient, however he has an insulin pump and had just given himself an 11 unit bolus of insulin for the elevated blood sugar. He was given IV Lasix and transfer was initiated to [facility] ([id number]) where he receives cardiology services for further evaluation and treatment. 1419: Patient accepted by Dr. Peres for [facility] cardiology. We are awaiting a bed assignment at this time. Patient is stable, no other focal medical complaints at this time. 1618: We will not receive a bed assignment for this patient tonight at [facility], patient accepted to hospitalist service at this facility awaiting a transfer to [facility]. SUPERVISED APC VISIT, PHYSICIAN ATTESTATION: Based on the medical record the care appears appropriate. ? Medical Records Attestation: I reviewed the patient's medical records. Lab Data Attestation: I reviewed the patient's lab results. Labs: Lab Results 11/02/23 11/02/23 11/02/23 Range/Units 12:55 13:56 15:41 WBC 8.6 (4.0-11.0) 10^3/uL RBC 3.89 L (4.70-6.10) 10^6/uL Hgb 10.4 L (14.0-18.0) g/dL Hct 32.5 L (42.0-54.0) % MCV 83.5 (80.0-94.0) fL MCH 26.7 (25.9-34.0) pg MCHC 32.0 (29.9-35.2) g/dL RDW 19.1 H (11.0-15.0) % Plt Count 243 (150-450) 10^3/uL MPV 10.7 (9.5-13.5) fL Neut % (Auto) 84.2 H (43.0-75.0) % Lymph % (Auto) 6.1 L (20.5-60.0) % Iron % (Auto) 8.8 (1.7-12.0) % Eos % (Auto) 0.1 L (0.9-7.0) % Baso % (Auto) 0.1 L (0.2-2.0) % Neut # (Auto) 7.2 H (1.4-6.5) 10^3/uL Lymph # (Auto) 0.5 L (1.2-3.8) 10^3/uL Iron # (Auto) 0.8 (0.3-0.8) 10^3/uL Eos # (Auto) 0.0 (0.0-0.7) 10^3/uL Baso # (Auto) 0.0 (0.0-0.1) 10^3/uL Abs Immat Gran (auto) 0.06 H (0.00-0.03) 10^3/uL Imm/Tot Granulo (auto) 0.7 H (0.0-0.5) % PT 13.6 H (9.0-11.6) sec INR 1.32 VBG pH 7.353 (7.330-7.430) VBG pCO2 52.4 H (40.0-52.0) mmHg Sodium 126 L (136-145) mmol/L Potassium 5.1 (3.5-5.1) mmol/L Chloride 89 L (98-107) mmol/L Carbon Dioxide 30.0 (21.0-32.0) mmol/L Anion Gap 12.1 BUN 67.0 H (7.0-18.0) mg/dL Creatinine 2.36 H (0.70-1.30) mg/dL Est GFR ( Amer) 33 L (>=60) Est GFR (Non-Af Amer) 27 L (>=60) BUN/Creatinine Ratio 28.4 Glucose 562 H* (74-106) mg/dL Lactate 3.0 H* 2.8 H* (0.4-2.0) mmol/L Calcium 8.9 (8.5-10.1) mg/dL Total Bilirubin 0.9 (0.2-1.0) mg/dL AST 16 (15-37) U/L ALT 34 (16-63) U/L Alkaline Phosphatase 233 H (46-116) U/L Troponin I High Sens 34.9 (4.0-76.1) pg/mL NT-Pro-B Natriuret Pep 83351.0 H* (<=900.0) pg/mL Total Protein 6.4 (6.4-8.2) g/dL Albumin 2.9 L (3.4-5.0) g/dL Globulin 3.5 g/dL Albumin/Globulin Ratio 0.8 Acetone, Qual Negative (NEGATIVE) Imaging Data Chest x-ray: Attestation: I have reviewed the pertinent imaging results. Radiologist's impression: ITS Impressions Chest X-Ray 11/02/23 13:03 IMPRESSION: 1. Suspect bilateral pleural effusions and moderate-marked basilar infiltrates versus atelectasis; not significantly changed. 2. Grossly stable cardiomegaly. Electronically authenticated by: JETHRO SHARPE Date: 11/02/2023 14:14 ECG Data Attestation: I personally reviewed and interpreted this ECG as follows: (Normal sinus rhythm at a rate of 63 with occasional PVCs, right bundle branch block with no acute ST elevation. EKG reviewed by attending physician.) Discharge Plan Discharge Chief Complaint: Shortness of Breath/Dyspnea Clinical Impression: Congestive heart failure, Acute kidney injury, Acute hyperglycemia Patient Disposition: [facility] Time of Disposition Decision: 16:20 Discharge Location: [facility] Discharge Date/Time: 11/02/23 17:46
[2023-11-02 13:20] LABS: Basophils Percent Auto 0.1 % (0.2-2.0); Eosinophils Percent Auto 0.1 % (0.9-7.0); Hematocrit 32.5 % (42.0-54.0); Hemoglobin 10.4 g/dL (14.0-18.0); Immature Granulocytes Abs Auto 0.06 10^3/uL (0.00-0.03); Immature Granulocytes Pct Auto 0.7 % (0.0-0.5); Lymphocytes Absolute Auto 0.5 10^3/uL (1.2-3.8); Lymphocytes Percent Auto 6.1 % (20.5-60.0); Mean Corpuscular Hemoglobin 26.7 pg (25.9-34.0); Mean Corpuscular Volume 83.5 fL (80.0-94.0); Mean Platelet Volume 10.7 fL (9.5-13.5); Monocytes Absolute Auto 0.8 10^3/uL (0.3-0.8); Monocytes Percent Auto 8.8 % (1.7-12.0); Neutrophils Absolute Auto 7.2 10^3/uL (1.4-6.5); Neutrophils Percent Auto 84.2 % (43.0-75.0); Platelet Count 243 10^3/uL (150-450); Red Blood Count 3.89 10^6/uL (4.70-6.10); Red Cell Distribution Width 19.1 % (11.0-15.0); White Blood Count 8.6 10^3/uL (4.0-11.0)
[2023-11-02 13:27] LABS: INR 1.32; Prothrombin Time 13.6 sec (9.0-11.6)
[2023-11-02 13:33] LABS: Troponin I High Sensitivity 34.9 pg/mL (4.0-76.1)
[2023-11-02 13:41] LABS: Alanine Aminotransferase 34 U/L (16-63); Albumin Globulin Ratio 0.8; Albumin Level 2.9 g/dL (3.4-5.0); Alkaline Phosphatase 233 U/L (46-116); Anion Gap 12.1; Aspartate Amino Transferase 16 U/L (15-37); BUN Creatinine Ratio 28.4; Bilirubin Total 0.9 mg/dL (0.2-1.0); Calcium 8.9 mg/dL (8.5-10.1); Chloride 89 mmol/L (98-107); Estimated GFR (African America 33 (>=60); Estimated GFR (Non-African Ame 27 (>=60); Globulin 3.5 g/dL; Potassium 5.1 mmol/L (3.5-5.1); Sodium 126 mmol/L (136-145); Total Protein 6.4 g/dL (6.4-8.2)
[2023-11-02 13:46] LABS: Glucose 562 mg/dL (74-106)
[2023-11-02 14:05] LABS: Acetone NEGATIVE (NEGATIVE)
[2023-11-02 14:06] LABS: PCO2 VBG 52.4 mmHg (40.0-52.0); pH VBG 7.353 (7.330-7.430)
[2023-11-02] MEDS: FUROSEMIDE 40 MG/4 ML VIAL IVP ×2 (14:10→18:02)
[2023-11-02 16:06] LABS: Lactate/Lactic Acid 2.8 mmol/L (0.4-2.0)
--- NOTE | 2023-11-02 17:32 | PM.HP ---
HPI H&P: HPI History of Present Illness Chief complaint: SOB CHF CATHIE Narrative: 68-year-old male with a history of heart failure with preserved/systolic dysfunction, coronary artery disease status post recent coronary artery bypass surgery 5 weeks ago at [facility] was sent to ED by his PCP for worsening shortness of breath, weight gain and signs and symptoms of volume overload. He was recently discharged from the hospital about a week ago for acute on chronic combined systolic heart failure and reports that he was feeling better for a couple of days then started to notice increasing shortness of breath along with lower extremity edema, weight gain. Patient was using p.o. prednisone that was prescribed in anticipation of him needing contrast. This is somewhat confusing because he is not scheduled for any imaging as far as he could remember. Patient has type 1 diabetes and has insulin pump. He reports that his blood glucose are generally well-controlled but ever since he has been using prednisone, they are significantly elevated. Workup in ED revealed acute on chronic combined systolic/diastolic heart failure, acute kidney injury, hyperglycemia with blood glucose over 500, hyponatremia. Given that he had recent coronary artery bypass surgery at [facility], ER initiated transfer request and patient was accepted for transfer to [facility]. Since there is a bed delay he was admitted to our facility so that he can be appropriately managed for his acute presenting illness. Opioid HPI Opioid Management Most Recent Pain and Opioid Data: Last Pain Scale 4 11/02/23 23:20 Last Pain Assessment 11/03/23 10:00 Last ORT Total Score 0 11/02/23 18:16 Last ORT Risk Category Low Risk 11/02/23 18:16 Review of Systems ROS Status of ROS 10 or more systems reviewed and unremarkable except as noted in history and below [facility] Medical History (Updated 11/02/23 @ 17:35 by Shaikh Janet MD) CAD (coronary artery disease) ?I25.10 - Atherosclerotic heart disease of [place] coronary artery without angina pectoris (ICD-10) Edema, peripheral ?R60.0 - Localized edema (ICD-10) Hypoxic episode ?R09.02 - Hypoxemia (ICD-10) CHF (congestive heart failure) ?I50.9 - Heart failure, unspecified (ICD-10) Fractured skull ?S02.91XA - Unspecified fracture of skull, initial encounter for closed fracture (ICD-10) Amputated toe of right foot ?S98.131A - Complete traumatic amputation of one right lesser toe, initial encounter (ICD-10) BPH (benign prostatic hyperplasia) ?N40.0 - Benign prostatic hyperplasia without lower urinary tract symptoms (ICD-10) GERD (gastroesophageal reflux disease) ?K21.9 - Gastro-esophageal reflux disease without esophagitis (ICD-10) Diabetes mellitus ?E11.9 - Type 2 diabetes mellitus without complications (ICD-10) Neuropathy ?G62.9 - Polyneuropathy, unspecified (ICD-10) Hyperlipemia ?E78.5 - Hyperlipidemia, unspecified (ICD-10) Partial bowel obstruction ?K56.600 - Partial intestinal obstruction, unspecified as to cause (ICD-10) Surgical History Hx of thumb surgery ?Z98.890 - Other specified postprocedural states (ICD-10) S/P triple vessel bypass ?Z95.1 - Presence of aortocoronary bypass graft (ICD-10) Family History Mother Family history of CHF (congestive heart failure) Family history of hypertension Father Family history of cancer Social History Within the past year, how often did you have a drink containing alcohol: monthly or less Within the past year, how often did you have six or more drinks on one occasion: never Smoking status: Never smoker Second hand tobacco smoke exposure: No Non-prescribed 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 use: denies 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 Known occupational exposures/hazards: No Highest level of school completed/degree received: Associate degree: academic program Do you want help with school or training: No Are you now , , , , never or living with a partner: In a typical week, how many times do you talk on the telephone with family, friends, or neighbors: 3 or more times per week How often do you get together with friends or relatives: 3 or more times per week How often do you attend mosque or methodist services: 4 or more times per year Do you belong to any clubs or organizations such as mosque groups unions, fraternal or athletic groups, or school groups: yes Total score: 3 Score interpretation: A score of greater than or equal to 2 indicates the lowest level of social isolation. Little interest or pleasure in doing things: not at all Feeling down, depressed, or hopeless: not at all Feel stressed/tense/nervous/anxious/difficulty sleeping: not at all Due to disability, difficulty making decisions: No Do you think of yourself as: straight/heterosexual Gender Identity: male Meds Home Medications and Allergies Home Medications ?Medication ?Instructions ?Recorded ?Confirmed ?Type alfuzosin 10 mg tablet,extended 10 mg PO DAILY 10/24/23 11/02/23 History release 24 hr aspirin 81 mg tablet,delayed 81 mg PO DAILY 10/24/23 11/02/23 History release (Adult Aspirin Regimen) atorvastatin 80 mg tablet 80 mg PO DAILY 10/24/23 11/02/23 History clopidogrel 75 mg tablet 75 mg PO DAILY 10/24/23 11/02/23 History fluticasone propionate 50 2 spray intranasal DAILY 10/24/23 11/02/23 History mcg/actuation nasal spray,suspension gabapentin 600 mg tablet 600 mg PO TID 10/24/23 11/02/23 History insulin lispro 100 unit/mL 1 - 20 unit continuous 10/24/23 11/02/23 History subcutaneous solution (Humalog subcutaneous infusion ACHS U-100 Insulin) magnesium oxide 400 mg (241.3 mg 400 mg PO BID 10/24/23 11/02/23 History magnesium) tablet metoprolol succinate 25 mg 25 mg PO DAILY 10/24/23 11/02/23 History tablet,extended release 24 hr pantoprazole 40 mg tablet,delayed 40 mg PO DAILY 10/24/23 11/02/23 History release sacubitril 24 mg-valsartan 26 mg 0.5 tab PO BID 10/24/23 11/02/23 History tablet (Entresto) spironolactone 25 mg tablet 25 mg PO DAILY 10/24/23 11/02/23 History tizanidine 4 mg tablet 4 mg PO BEDTIME 10/24/23 11/02/23 History torsemide 20 mg tablet 40 mg PO DAILY 10/24/23 11/02/23 History trazodone 50 mg tablet 25 mg PO .QHS PRN sleep 10/24/23 11/02/23 History prednisone 10 mg tablet 50 mg (5 x 10 mg) PO DAILY #47 tabs 10/28/23 11/02/23 Rx Allergies Allergy/AdvReac Type Severity Reaction Status Date / Time Iodinated Contrast Media AdvReac Mild Hives Verified 10/24/23 15:13 Exam Constitutional Vital Signs, click to edit/add: Last Vital Signs Pulse 73 11/02/23 12:46 Resp 24 H 11/02/23 12:46 BP 101/50 11/02/23 14:10 Pulse Ox 90 L 11/02/23 12:46 O2 Del Method Room Air 11/02/23 12:46 General appearance: cooperative, comfortable, ill appearing and grossly edematous HENOH Common normals: normocephalic and head/scalp atraumatic Respiratory Common normals: normal respiratory effort and no use of accessory muscles Effort & inspection: tachypneic Auscultation: rales bilateral and diminished lung sounds bilateral Cardio Common normals: regular rate, regular rhythm, S1 normal heart sound and S2 normal heart sound Jugular venous distention: JVD to the level of the angle of the jaw GI Common normals: soft to palpation, non-tender and no hepatosplenomegaly Inspection: edema findings Laterality: bilateral and anasarca present Extremity General: edema (+2) Neuro Common normals: oriented x3, moves all extremities, no focal motor deficits and no sensory deficits noted Sensorium/orientation: lethargic Psych Common normals: mental status grossly normal, thought process normal, denies homicidal ideation and denies suicidal ideation Results Labs Labs: Short CBC 11/02/23 Range/Units 12:55 WBC 8.6 (4.0-11.0) 10^3/uL Hgb 10.4 L (14.0-18.0) g/dL Hct 32.5 L (42.0-54.0) % Plt Count 243 (150-450) 10^3/uL BMP 11/02/23 12:55 Sodium 126 L Potassium 5.1 Chloride 89 L Carbon Dioxide 30.0 BUN 67.0 H Creatinine 2.36 H Glucose 562 H* Calcium 8.9 Liver Function 11/02/23 Range/Units 12:55 Total Bilirubin 0.9 (0.2-1.0) mg/dL AST 16 (15-37) U/L ALT 34 (16-63) U/L Alkaline Phosphatase 233 H (46-116) U/L Albumin 2.9 L (3.4-5.0) g/dL ABG ABG results: 11/02/23 13:56 VBG pH 7.353 VBG pCO2 52.4 H Assessment and Plan Assessment and Plan (1) Acute on chronic congestive heart failure: Assessment and Plan: Patient presents with acute on chronic combined systolic/diastolic heart failure. Started patient on IV Lasix 40 twice daily. Monitor intake and output. Daily weights. No need for an echocardiogram as it was recently performed earlier this month. Monitor urine output/serum creatinine and electrolytes closely. Qualifiers: Heart failure type: combined systolic and diastolic Qualified Code(s): I50.43 - Acute on chronic combined systolic (congestive) and diastolic (congestive) heart failure (2) Chronic respiratory failure with hypoxia: Assessment and Plan: Patient uses 1 to 2 L of oxygen at baseline. No increased oxygen requirement but appears short of breath at rest and has to stop during conversation to catch his breath. Likely because of underlying congestive heart failure. Started on IV Lasix. Monitor volume status, serum electrolytes and renal function closely (3) Acute kidney injury: Assessment and Plan: Patient has normal renal function at baseline. He presented with creatinine of 2.3. Likely cardiorenal because of hypoperfusion/venous congestion from acute congestive heart failure. Start patient on IV Lasix. Monitor serum electrolytes, urine output and serum creatinine closely. (4) Hyponatremia: Assessment and Plan: Likely multifactorial and secondary to volume overload and hyperglycemia. Monitor closely. Will need IV diuresis and insulin coverage for hyperglycemia (5) Lactic acidosis: Assessment and Plan: Likely due to acute congestive heart failure. Continue with the underlying etiology with IV diuresis. (6) Hyperglycemia due to type 1 diabetes mellitus: Assessment and Plan: Because of prednisone use. Patient gave himself an insulin bolus via insulin pump. Monitor blood glucose closely. (7) CAD (coronary artery disease): Assessment and Plan: Recent CABG. Awaiting bed availability to [facility]. Continue with aspirin, Plavix, statin. Qualifiers: Associated angina: without angina Coronary Disease-Associated Artery/Lesion type: [place] artery [place] vs. transplanted heart: [place] heart Qualified Code(s): I25.10 - Atherosclerotic heart disease of [place] coronary artery without angina pectoris (8) Hyperlipemia: Assessment and Plan: Continue with statin. Qualifiers: Hyperlipidemia type: mixed hyperlipidemia Qualified Code(s): E78.2 - Mixed hyperlipidemia (9) Cardiorenal syndrome: Assessment and Plan: Acute kidney injury likely because of cardiorenal syndrome. Continue with IV diuresis. Monitor renal function closely. Qualifiers: Heart failure presence: with heart failure Hypertensive chronic kidney disease stage: stage 1-4 or unspecified chronic kidney disease Qualified Code(s): I13.0 - Hypertensive heart and chronic kidney disease with heart failure and stage 1 through stage 4 chronic kidney disease, or unspecified chronic kidney disease
--- NOTE | 2023-11-02 18:01 | PC.NURSE ---
Fence Rider called pharmacy to ask if patient could have scheduled dose of lasix now as he just had it 4 hours ago in ER. Alyssa states this is OK to give now.
[2023-11-02] MEDS: ENOXAPARIN SODIUM 30 MG/0.3 ML SYRINGE SUBQ (18:02)
[2023-11-02] MEDS: ONDANSETRON PF 4 MG/2 ML VIAL IV (18:02)
--- NOTE | 2023-11-02 18:33 | PC.NURSE ---
Upon admission, patient was dizzy getting up from ER bed and into med surg bed. He then became nauseated and had a small emesis. He asked insurance writer to check FSBS, which read [place]. Patient checked his insulin pump and glucose read 671. He gave himself a 12unit bolus from insulin pump.
--- NOTE | 2023-11-02 20:29 | PC.NURSE ---
Upon entering room patient stated he felt like he was going to throw up. Patient had small emesis and c/o dizziness. Patient asked financial underwriter to check FSBS and it read [place]. Patient gave himself 14 unit bolus from insulin pump.
[2023-11-02] MEDS: PROMETHAZINE HCL 12.5 MG in 0.9 % SODIUM CHLORIDE 50 ML 202 MG IV (21:39)
[2023-11-02 21:40] LABS: Anion Gap 17.6; BUN Creatinine Ratio 28.9; Calcium 8.7 mg/dL (8.5-10.1); Carbon Dioxide 26.1 mmol/L (21.0-32.0); Chloride 88 mmol/L (98-107); Estimated GFR (African America 29 (>=60); Estimated GFR (Non-African Ame 24 (>=60); Potassium 5.7 mmol/L (3.5-5.1); Sodium 126 mmol/L (136-145); Troponin I High Sensitivity 35.9 pg/mL (4.0-76.1)
[2023-11-02 21:44] LABS: Glucose 603 mg/dL (74-106)
--- NOTE | 2023-11-02 22:00 | PC.NURSE ---
Patient refused Novolog Pen. Educated thatt we need to bring the blood sugar down. He stated it does not work and I can control it better with my pump Patient also c/o shoulder pain. No chest pain or tightness.
[2023-11-02] MEDS: GABAPENTIN 300 MG CAPSULE 600 MG PO (22:19)
[2023-11-02] MEDS: MAGNESIUM OXIDE 400 MG TABLET PO (22:19)
[2023-11-02] MEDS: ACETAMINOPHEN 325 MG TABLET 650 MG PO (22:19)
[2023-11-02] MEDS: ATORVASTATIN CALCIUM 40 MG TABLET 80 MG PO (22:19)
[2023-11-02] MEDS: TIZANIDINE HCL 4 MG TABLET PO (22:19)
[2023-11-03] VITALS (110 sets, daily range): BP systolic 69–194; BP diastolic 29–138; PULSE 54–90; RESP 12; TEMP 36.4–36.5; O2SAT 89–100
[2023-11-03] MEDS: 0.9 % SODIUM CHLORIDE 250 ML IV (00:14)
[2023-11-03] MEDS: INSULIN REGULAR, HUMAN (100 UNIT/ML) 10 ML MDV 10 UNIT IV (00:16)
[2023-11-03 00:41] LABS: Bilirubin Urine NEGATIVE (NEGATIVE); Blood Urine NEGATIVE (NEGATIVE); Clarity Urine CLEAR (CLEAR); Color Urine YELLOW (YELLOW); Glucose Urine UA 250 mg/dL (NEGATIVE); Ketones Urine NEGATIVE (NEGATIVE); Leukocyte Esterase Urine NEGATIVE (NEGATIVE); Nitrite Urine NEGATIVE (NEGATIVE); Protein Urine NEGATIVE (NEG/TRACE); Specific Gravity Urine >=1.030 (1.005-1.025); Urobilinogen Urine 0.2 EU/dL (0.2-1.0); pH Urine 5.5 (5.0-9.0)
[2023-11-03 00:42] LABS: Urine Microscopic Indicated NO
[2023-11-03] MEDS: NOREPINEPHRINE BITARTRATE/D5W 4 MG/250 ML PREMIX 30 MG IV (00:45)
[2023-11-03 01:09] LABS: Glucose 627 mg/dL (74-106)
[2023-11-03] MEDS: 0.9 % SODIUM CHLORIDE 500 ML 250 ML IV (01:28)
--- NOTE | 2023-11-03 01:28 | PM.EN ---
Event Note Event Note: -- Notified by nursing patient's BS reading HIGH. Previous BS 562 in ED. Patient had given himself 2 bolus doses from his insulin pump and still having BS readings as HIGH. C/O nausea, dizziness. Improved with phenergan IV x1. Ordered Insulin R 10 units IV x1. Also, requested insulin pump d/c and ordered accu-cheks q4h with insulin sliding scale coverage. Patient with no urine output after a total of Lasix 80 mg IV given. Bladder scan showed 140 ml. Neal catheter ordered. Nursing reports on 75 ml UOP after neal anchored. Blood pressure soft and trending down from 90/40s to 70/40s, MAPS low 50s. NS 250 ml IV bolus x1 ordered. Minimal response. BP 69/46. 2nd NS 250 ml IV bolus x1 ordered. Still minimal improvement in BP. Transferred to ICU. Levophed drip per titration protocol ordered. Repeat BMP shows BS 627, worsening creatinine up to 2.66, BUN 77, hyperkalemia of 5.7 (previously 5.1). UA without ketones. Checking acetone level. Insulin drip ordered. Check BMP q4h. Nursing contacted [facility] with up on patient condition change. Spoke to Dr. Mark Kohli, Fellow, and discussed case. He and Dr. Abram Stout accepted patient in transfer when bed available. Dr Kohli did request blood cultures if not already done and a d-dimer. Recommended obtaining a VQ scan to r/o PE if elevated. Noted patient is on Lovenox VTE ppx - renal adjusted. Case staffed with Dr. Solis, attending.
[2023-11-03] MEDS: INSULIN REGULAR IN 0.9 % NACL 100 UNIT/100 ML PLAST..BAG 12.3 UNIT IV (01:47)
[2023-11-03 02:20] LABS: Acetone SMALL (NEGATIVE)
[2023-11-03 02:34] LABS: Anion Gap 15.6; BUN Creatinine Ratio 28.4; Calcium 8.3 mg/dL (8.5-10.1); Carbon Dioxide 26.6 mmol/L (21.0-32.0); Chloride 89 mmol/L (98-107); Estimated GFR (African America 26 (>=60); Estimated GFR (Non-African Ame 21 (>=60); Potassium 5.2 mmol/L (3.5-5.1); Sodium 126 mmol/L (136-145)
[2023-11-03 02:35] LABS: Glucose 573 mg/dL (74-106)
[2023-11-03] MEDS: 0.9 % SODIUM CHLORIDE 250 ML 150 ML IV (02:40)
[2023-11-03] MEDS: NOREPINEPHRINE BITARTRATE/D5W 4 MG/250 ML PREMIX 120 MG IV ×3 (03:18→07:23)
--- OUTSIDE RECORDS SUMMARY | 2023-11-03 06:10 | XMS_ITS | CCD ---
Author Organization [facility] Care Team Providers Care Hydrometer Tester Name Role Phone DR EPIFANIO MCGOWAN Attending Unavailable JUAN M, DR BEDOLLA Admitting Unavailable Epifanio Mcgowan DO Primary Care Provider Bridger LAKHANI, Ran Unavailable No, Referral Unavailable Unavailable Mapus, Tondra Unavailable DO Epifanio Mcgowan Primary Care Provider Mapus, TRAIN DISPATCHER Tondra K Attending Provider TAIWO Leon Attending Provider EPIFANIO MCGOWAN Primary Care Physician DO Epifanio Mcgowan Primary Care Provider Mapus, TRAIN DISPATCHER Tondra K Attending Provider Epifanio Mcgowan DO Primary Care Provider Bridger LAKHANI, Ran Unavailable No, Referral Unavailable Unavailable Epifanio Mcgowan DO Primary Care Provider Bridger LAKHANI, Ran Unavailable No, Referral Unavailable Unavailable Epifanio Mcgowan Unavailable DO Epifanio Mcgowan Primary Care Provider Mapus, TRAIN DISPATCHER Tondra K Attending Provider Bridger LAKHANI, Ran Unavailable Mayank PROCTOR Attending Unavailable Mayank PROCTOR Attending Unavailable Asaad, Imad Unavailable DO Epifanio Mcgowan Primary Care Provider Mapus, TRAIN DISPATCHER Tondra K Attending Provider [phone] ROBBIN Cline Attending Provider DO Epifanio Mcgowan Primary Care Provider MD Ashish Lozano Attending Provider MD Florence Milner Attending Provider [phone] MD Kristan Richardson Jr Emergency Provider DO Damian Blevins Admit Provider DO Damian Blevins Attending Provider [phone] Juan M AGUILAR Epifanio Primary Care Provider Juan M, Epifanio Primary Care Provider DO Bravo Whatley Emergency Provider DO Epifanio Casarez Primary Care Provider MD Shaina Frazier Attending Provider Epifanio Mcgowan [facility] Care Unavailable Mapus, Tondra K Admitting Unavailable Mapus, Tondra K Attending Unavailable Mapus, Tondra K Attending [facility]available [facility] Mapus, Tondra K Admitting [facility]available [facility] Shaina Frazier Admitting Unavailable Shaina Frazier Attending Unavailable Asaad, Imad Admitting Unavailable Asaad, Imad Attending Unavailable [facility] Unavailable Ashish Lozano Admitting Unavaila ble Ashish Lozano Attending Unavaila ble [facility] Unavailable [facility] Care Unavailable Bravo Whatley Admitting Unavailable Bravo Whatley Attending Unavailable Damian Blevins Admitting Unavailable Ashish Lozano Consulting Unavaila ble [facility] Care Unavailable Magnus Church Attending UnavailEma Bobo Admitting Unavailable Ema Cline Attending Unavailable [facility] Primary Care Unavailable Marla Wayne Unavailable LEI GOMEZ Attending Unavailable SHAINA MOSES Attending Unavailable ASAAD, IMAD Referring Unavailable LEI GOMEZ Attending Unavailable LEI GOMEZ Attending Unavailable DO Epifanio Mcgowan Primary Care Provider DO Bravo Whatley Emergency Provider MD Shaina Mendoza Attending Provider BALL, EPIFANIO E Primary Care Unavailable BRIDGER, RAN Attending Unavailable BRIDGER, RAN Referring Unavailable BALL, EPIFANIO E Primary Care Unavailable BRIDGER, RAN Attending Unavailable BALL, EPIFANIO E Primary Care Unavailable MOUCK, BISHNU Referring Unavailable BALL, EPIFANIO E Primary Care Unavailable MOUCK, BISHNU Referring Unavailable DEB SAAVEDRA Attending Unavailable BALL, EPIFANIO E Primary Care Unavailable MOUCK, BISHNU Referring Unavailable BALL, EPIFANIO E Primary Care Unavailable AGEE, JUDI Referring Unavailable BALL, EPIFANIO E Primary Care Unavailable AGEE, JUDI Referring Unavailable JEFFERY, MARLA BECERRIL Referring Unava ilable OLI BABIN Attending Unavailable BEN NGUYEN Admitting Unavailable BALL, EPIFANIO E Primary Care Unavailable BALL, EPIFANIO E Primary Care Unavailable AGEE, JUDI Referring Unavailable AGEE, JUDI Referring Unavailable BALL, EPIFANIO E Primary Care Unavailable AGEE, JUDI Referring Unavailable BALL, EPIFANIO E Primary Care Unavailable AGEE, JUDI Referring Unavailable BALL, EPIFANIO E Primary Care Unavailable BALL, EPIFANIO E Primary Care Unavailable BRIDGER, RAN Referring Unavailable Allergies Allergy Classification Reported Allergen(s) Allergy Type Date of Onset Reaction(s) Facility Aspirin / Pentazocine (2 sources) Aspirin / Pentazocine Drug Allergy 2 Other: See Comments [facility] Iodine (and Iodine containting drugs) (3 sources) Iodine (And Iodine Containting Drugs) Drug Allergy 2 Other: See Comments [facility] Repository Pentazocine (3 sources) Pentazocine Drug Allergy 0 Anaphylaxis, Unknown [facility] Repository (20 sources) Aspirin / Pentazocine; Translations: [TALWIN COMPOUND] Drug Allergy 2 Other: See Comments [facility] Work Phone: (20 sources) Iodine; Translations: [IODINE] Drug Allergy 2 Other: See Comments [facility] Work Phone: (20 sources) Pentazocine; Translations: [PENTAZOCINE] Drug Allergy 0 Anaphylaxis, Unknown [facility] Work Phone: (20 sources) Iodinated Contrast Media; Translations: [IODINATED CONTRAST MEDIA] Drug Allergy 5 Hives, Unknown [facility] Work Phone: (20 sources) Contrast media Propensity to adverse reactions Unknown pushd [facility] [employer] Other (1 source) patient allergy list reviewed by nurse or physicia Propensity to adverse reactions Comment:Done [employer] Other (1 source) Contrast media; Translations: [Contrast Dye] Propensity to adverse reactions (disorder) [facility] Repository (1 source) Pentazocine Drug Allergy [address] [place] [address] Repository (1 source) Iodinated [employer] Drug allergy (disorder) [address] [place] [address] Repository Medications Current Medications Medication Drug Class(es) Dates Sig (Normalized) Sig (Original) acetaminophen 500 mg oral capsule (20 sources) Start: 10-12-2023 Start: 09-28-2023 take 1 tablet by margie th every eight hours acetaminophen (TYLENOL) 500 mg tablet Take 1 tablet by mouth every 8 hours. 0 09/28/2023 Active Start: 04-18-2020 End: 09-16-2020 Start: 04-18-2020 End: 09-16-2020 take 500 mg by mouth every six hours Acetaminophen Discontinued 500 MG PO Q6H 0 April 18, 2020 1:00am September 16, 2020 8:00pm [id number] 200 actuat albuter ol 0.09 mg/actuat metered dose inhaler (20 sources) beta2-Adrenergic Agonist Start: 10-12-2023 Start: 06-22-2023 End: 08-16-2023 Start: 06-22-2023 End: 08-16-2023 Albuterol Sulfate Discontinu ed 2 INH INHALATION EVERY 4-6 HOURS June 22, 2023 12:00am August 16, 2023 9:08am administer with spacer Start: 05-10-2023 End: 05-12-2023 Start: 05-10-2023 End: 05-12-2023 take 1 puff(s) by inhalation every four to six hours Albuterol Sulfate Discontinued 2 PUFF INHALATION EVERY 4-6 HOURS May 10, 2023 1:00am May 12, 2023 9:58am Start: 11-28-2022 albuterol HFA (PROVENTIL HFA, VENTOLIN HFA) 90 mcg/actuation inhaler Inhale 1-2 Puffs as instructed as needed. 0 11/28/2022 Active Comment on above: Inhale 1-2 Puffs as instructed as needed. 24 hr alfuzosin hydrochloride 10 mg extended release oral tablet (20 sources) alpha-Adrenergic Derrek Start: 04-12-2019 Comment on above: Take 10 mg by mouth once daily. aspirin 81 mg oral capsule (20 sources) Platelet Aggregation Inhibitor, Nonsteroidal Anti-inflammatory Drug Start: 11-24-2020 take 1 mg by mouth every four hours aspirin 81 mg oral capsule mg cap(s), Oral, q4hr, Refills(s) 0 Start Date: 11/24/20 Status: Ordered Start: 01-05-2018 End: 04-10-2020 Comment on above: Take 81 mg by mouth once daily. atorvastatin 80 mg oral tabl et (20 sources) HMG-CoA Reductase Inhibitor Start: 02-27-2015 End: 01-21-2023 Comment on above: Take 80 mg by mouth daily at bedtime. Take 1 tablet by margie th daily at bedtime. take 1 tablet by margie th everyday at bedtime clopidogrel 75 mg oral table t (20 sources) P2Y12 Platelet Inhibitor Start: 09-29-2023 Start: 05-24-2020 End: 09-16-2020 Start: 04-12-2019 End: 04-13-2019 Contour Next Test - (20 sources) Contour Next Saud t - as directed- use with Contour Next linking meter In Vitro 6 times/day for 90 days E10.8 Active Contour Next Saud t - as directed- use with Contour Next linking meter In Vitro 6 times/day for 90 day(s) E10.8 Active docusate sodium 50 mg / micki osides, residential 8.6 mg oral tablet (4 sources) Start: 10-12-2023 Start: 09-28-2023 take 2 tablets by mo [facility] twice daily senna-docusate (SENNA-S) 8.6-50 mg per tablet Take 2 tablets by mouth two times a day. 0 09/28/2023 Active Insulin Lispro (Humalog U-10 0 Insulin) 100 unit/mL solution (20 sources) Start: 07-08-2023 Insulin Lispro (Humalog U-100 Insulin) 100 unit/mL solution Active 0 CNTSUBQINF Daily 80 July 08, 2023 8:48am Use in insulin pump up to 80 units per day Start: 05-09-2023 End: 05-12-2023 inject 80 [IU] by subcutaneous injection once daily Insulin Lispro (Humalog U-100 Insulin) 100 unit/mL solution Discontinued 0 CNTSUBQINF .COMPLEX 80 May 09, 2023 10:38am May 12, 2023 9:32am via continuous subcutaneous infusion; 80 units/day insulin pump Injection As Directed 90 days 3 refills Start: 05-04-2023 End: 05-09-2023 inject 80 [IU] by subcutaneous injection once daily Insulin Lispro (Humalog U-100 Insulin) 100 unit/mL solution Discontinued 0 CNTSUBQINF .COMPLEX May 04, 2023 1:00am May 09, 2023 10:41am via continuous subcutaneous infusion; 80 units/day insulin pump Injection As Directed; magnesium oxide 400 mg oral tablet (4 sources) Start: 10-12-2023 Start: 09-28-2023 End: 10-28-2023 take 1 tablet by mouth twice daily magnesium oxide (MAG-OX) 400 mg (241.3 mg magnesium) tablet Take 1 tablet by mouth two times a day. 60 tablet 0 09/28/2023 10/28/2023 Active 24 hr metoprolol succinate 25 mg extended release oral tablet (20 sources) beta-Adrenergic Derrek Start: 07-12-2022 End: 07-08-2023 take 1 tablet by mouth once daily metoprolol succinate ER (TOPROL XL) 25 mg 24 hr tablet Take 1 tablet by mouth once daily. Hold for SBP 30 tablet 2 09/28/2023 Active Start: 05-14-2021 End: 07-16-2022 take 0.5 tablet by mouth once daily metoprolol succinate ER (TOPROL XL) 25 mg 24 hr tablet Indications: Chronic systolic heart failure (HCC) , Ischemic cardiomyopathy , Coronary artery disease involving [place] coronary artery of [place] heart without angina pectoris TAKE 1/2 TABLET BY MOUTH ONCE DAILY 45 tablet 3 07/12/2022 Active Start: 01-09-2018 End: 04-12-2019 take 0.5 tablet by m outh every twenty-four hours Metoprolol Succinate ER 25 MG 0.5 tablet Orally Once a day Active Comment on above: Take 1 tablet by margie th once daily. Take 0.5 tablets by mouth once daily. TAKE 1/2 TABLET BY [facility] ONCE DAILY potassium chloride 20 meq extended release oral tablet (12 sources) Start: 11-24-2020 take 1 tablet by mouth twice daily potassium chloride 20 mEq ER Tab mEq tab(s), Oral, BID, Refills(s) 0 Start Date: 11/24/20 Status: Ordered take 2 tablets by [facility] every twenty-four hours Potassium Chloride ER 20 MEQ 2 tablets with food Orally Once a day Not-Taking spironolactone 25 mg oral tablet (20 sources) Aldosterone Antagonist Start: 10-24-2023 End: 10-23-2024 take 1 tablet by mouth once daily spironolactone (ALDACTONE) 25 mg tablet Take 1 tablet by mouth once daily. 90 tablet 3 10/24/2023 10/23/2024 Active Start: 09-16-2020 End: 10-12-2023 Start: 09-16-2020 End: 10-12-2023 take 1 mg by mouth twice daily spironolactone 25 mg Tab mg tab(s), Oral, BID, Refills(s) 0 Start Date: 11/24/20 Status: Ordered Comment on above: Take 1 tablet by margie once daily. TAKE 1 TABLET BY MARGIE EVERY DAY tiZANidine 4 mg oral tablet (20 sources) Central alpha-2 Adrenergic Agonist Start: 05-02-2023 Start: 04-05-2023 take 0.5-1 tablets b y mouth once at bedtime as needed tiZANidine HCl 4 MG 1/2 - 1 tablet as needed Orally q HS for 30 days Mar, Active Comment on above: Take 4 mg by mouth d aily at bedtime. traZODone hydrochloride 50 mg oral tablet (2 sources) Serotonin Reuptake Inhibitor Start: 09-28-19 take 0.5 tablet by mouth at bedtime as needed traZODone (DESYREL) 50 mg tablet Take 0.5 tablets by mouth at bedtime as needed. 30 tablet 0 09/28/2023 Active triamcinolone acetonide 5 mg/ml topical cream (3 sources) Corticosteroid Start: 11-18-19 23 Triamcinolone Acetonide 0.5 % 1 application Externally Twice a day for 14 days Nov, Active (12 sources) Start: 07-08-19 Start: 05-09-2023 End: 05-12-2023 Start: 05-04-2023 Start: 05-04-2023 End: 05-09-2023 Start: 10-11-2019 End: 11-02-2019 Start: 01-05-2018 End: 04-12-2019 Completed/Discontinued Medications Medication Drug Class(es) Dates Sig (Normalized) Sig (Original) amLODIPine 5 mg oral tablet (16 sources) Dihydropyridine Calcium Channel Derrek Start: 01-05-2018 End: 08-10-2019 bacitracin 0.5 unt/mg topical ointment (16 sources) Start: 04-18-2020 End: 05-24-2020 Start: 04-18-2020 End: 05-24-2020 Bacitracin Discontinued 1 AP PLIC TOPICAL Twice daily 0 April 18, 2020 1:00am May 24, 2020 9:51pm benzonatate 100 mg oral caps ule (20 sources) Non-narcotic Antitussive Start: 05-10-2023 End: 05-12-2023 Start: 05-10-2023 End: 05-12-2023 Benzonatate Discontinued MG PO May 10, 2023 1:00am May 12, 2023 9:33am Start: 03-09-2023 take 1 capsule by mo uth three times daily as needed for cough Benzonatate 100 MG 1 capsule as needed Orally Three times a day as needed for cough for 10 days Feb, Active 120 actuat budesonide 0.16 mg/actuat / formoterol fumarate 0.0045 mg/actuat metered dose inhaler (12 sources) Corticosteroid, beta2-Adrenergic Agonist Start: 05-10-2023 End: 05-10-2023 Start: 05-10-2023 End: 05-10-2023 take 1 puff(s) by inhalation twice daily Budesonide-Formoterol Discontinued 2 PUFF INHALATION Twice daily May 10, 2023 1:00am May 10, 2023 9:10am bumetanide 2 mg oral tablet (20 sources) Loop Diuretic Start: 09-02-2023 End: 10-12-2023 Start: 08-17-2023 End: 08-24-2023 Start: 06-17-2020 End: 05-10-2023 Start: 06-17-2020 End: 09-18-2020 take 4 mg by mouth twice daily Bumetanide Discontinued 4 MG PO Twice daily June 17, 2020 12:00am September 18, 2020 11:08am carvedilol 3.125 mg oral tablet (20 sources) alpha-Adrenergic Derrek, beta-Adrenergic Derrek Start: 09-16-2020 End: 05-10-2023 Start: 08-10-2019 End: 05-24-2020 cephalexin 500 mg oral capsu le (16 sources) Cephalosporin Antibacterial Start: 03-08-2021 End: 05-10-2023 cetirizine hydrochloride 10 mg oral tablet (12 sources) Histamine-1 Receptor Antagonist Start: 05-10-2023 End: 05-10-2023 chlorhexidine gluconate 1.2 mg/ml mouthwash (16 sources) Start: 04-18-2020 End: 05-24-2020 Start: 04-18-2020 End: 05-24-2020 Chlorhexidine Gluconate Disc ontinued 15 ML MUCOUS MEM Three times daily 0 April 18, 2020 1:00am May 24, 2020 9:51pm doxycycline hyclate 100 mg o ral tablet (9 sources) Tetracycline-class Drug Start: 07-11-2023 End: 07-18-2023 Start: 12-09-2022 take 1 capsule by mo [facility] every twelve hours Doxycycline Hyclate 100 MG 1 capsule Orally Twice a day for 5 days Nov, Active Ergocalciferol (20 sources) Provitamin D2 Compound Start: 01-05-2018 End: 04-12-2019 take 98901 [IU] by mouth every week Ergocalciferol (Vitamin D2) Discontinued 45553 UNITS PO every week January 04, 2018 11:00pm April 12, 2019 5:57pm Start: 01-05-2018 End: 04-12-2019 take 61230 [IU] by mouth every week Ergocalciferol (Vitamin D2) Discontinued 62749 UNITS PO every week January 05, 2018 12:00am April 12, 2019 6:57pm take 1 capsule by mo ut two times weekly Ergocalciferol 1.25 MG (52266 UT) 1 capsule Orally twice weekly for 90 days Not-Taking escitalopram 20 mg oral tabl et (12 sources) Serotonin Reuptake Inhibitor Start: 05-10-2023 End: 05-10-2023 ezetimibe 10 mg oral tablet (16 sources) Dietary Cholesterol Absorption Inhibitor Start: 01-05-2018 End: 08-11-2019 Start: 01-05-2018 End: 08-11-2019 take 10 mg by mouth at bedtime Ezetimibe Discontinued 10 MG PO Bedtime January 05, 2018 12:00am August 11, 2019 8:40am ferrous sulfate 324 mg delayed release oral tablet (10 sources) take 1 tablet by mouth every twenty-four hours Ferrous Sulfate 324 MG 1 tablet Orally Once a day Not-Taking fluticasone propionate 0.05 mg/actuat metered dose nasal spray (20 sources) Corticosteroid Start: 05-12-2023 End: 05-16-2023 Start: 05-12-2023 End: 05-16-2023 take 1 spray(s) nasal route once daily Fluticasone Propionate Discontinued 2 SPRAY INTRANASAL Daily May 12, 2023 1:00am May 16, 2023 11:55am administer into each nostril Start: 05-10-2023 End: 05-10-2023 Start: 05-10-2023 End: 05-10-2023 take 1 spray(s) nasal route once daily Fluticasone Furoate Discontinued 2 SPRAY INTRANASAL Daily May 10, 2023 1:00am May 10, 2023 9:10am into each nostril furosemide 40 mg oral tablet (16 sources) Loop Diuretic Start: 08-12-2019 End: 06-17-2020 gabapentin 300 mg oral capsu le (20 sources) Anti-epileptic Agent Start: 01-05-2018 End: 04-12-2019 Start: 03-10-2015 End: 08-16-2023 Comment on above: Take 600 mg by mouth three times daily. 0.2 ml glucagon 5 mg/ml auto-injector (20 sources) Antihypoglycemic Agent Start: 05-04-2023 End: 05-12-2023 Start: 05-04-2023 End: 05-12-2023 Glucagon (Gvoke Hypopen 1-Pa ck) 1 mg/0.2 mL auto-injector Discontinued 1 MG SUBCUT May 04, 2023 1:00am May 12, 2023 9:33am as directed Subcutaneous prn hypoglycemia may repeat in 15 minutes; Start: 05-21-2021 Gvoke HypoPen 2-Pack 1 MG/0.2ML as directed Subcutaneous prn hypoglycemia may repeat in 15 minutes for 1 days May, Active hydroCHLOROthiazide 25 mg / losartan potassium 100 mg oral tablet (12 sources) Thiazide Diuretic, Angiotensin 2 Receptor Derrek Start: 05-10-2023 End: 05-12-2023 Start: 05-10-2023 End: 05-12-2023 take 1 tablet by mouth once daily Losartan-Hydrochlorothiazide Discontinue d 1 TAB PO Daily May 10, 2023 1:00am May 12, 2023 9:32am insulin lispro 100 unt/ml in jectable solution (20 sources) Insulin Analog Start: 07-08-2023 End: 07-08-2023 Start: 07-08-2023 End: 07-08-2023 Insulin Lispro (Humalog U-10 0 Insulin) 100 unit/mL solution Discontinued 0 CNTSUBQINF Daily July 08, 2023 12:00am July 08, 2023 8:53am Use in insulin pump up to 80 units per day Start: 11-24-2020 HumaLOG 100 un its/mL injectable solution 5 unit(s), SubCutaneous, TIDAC, # 10 mL, Refills(s) 0 Start Date: 11/24/20 Status: Ordered Start: 04-12-2019 End: 07-08-2023 Start: 04-12-2019 End: 07-08-2023 Insulin Lispro (Humalog U-10 0 Insulin) 100 unit/mL Cartridge Discontinued 1 sliding scale dose SUBCUT Use as Directed April 12, 2019 1:00am July 08, 2023 8:48am (04/13/2019) - Patient states current pump settings have total 32 units Basal with a 5-7g/unit ratio for carbohydrate coverage. Start: 03-11-2015 End: 04-12-2019 HumaLOG 100 UNIT /ML 80 units/day insulin pump Injection As Directed e10.9 Active inject 70 [IU] by herrera bcutaneous injection once daily HumaLOG 100 UNIT/ML expect up to 70 units total a day in insulin pump SQ via pump Daily for 90 day(s) Active Comment on above: 10-03-2020: insulin pump levoFLOXacin 500 mg oral tab let (17 sources) Quinolone Antimicrobial Start: 06-19-2020 End: 09-16-2020 Comment on above: Take 500 mg by mouth once daily. Every day for 10 days lisinopril 2.5 mg oral table t (20 sources) Angiotensin Converting Enzyme Inhibitor Start: 06-17-2020 End: 09-16-2020 Start: 01-05-2018 End: 05-24-2020 metFORMIN hydrochloride 500 mg oral tablet (12 sources) Biguanide Start: 05-10-2023 End: 05-12-2023 pantoprazole 40 mg delayed r elease oral tablet (20 sources) Proton Pump Inhibitor Start: 06-03-2023 End: 10-12-2023 Start: 01-05-2018 End: 04-12-2019 perflutren lipid microsphere s 1.3 mL in NaCl (PF) 0.9% 10 mL injection (DEFINITY) (3 sources) Start: 03-26-2022 End: 09-10-2022 perflutren lipid microsphere s 1.3 mL in NaCl (PF) 0.9% 10 mL injection (DEFINITY) Start: 03-26-2022 End: 06-25-2023 perflutren lipid microsphere s 1.3 mL in NaCl (PF) 0.9% 10 mL injection (DEFINITY) prasugrel 10 mg oral tablet (16 sources) P2Y12 Platelet Inhibitor Start: 01-05-2018 End: 04-12-2019 predniSONE 10 mg oral tablet (9 sources) Start: 06-22-2023 End: 07-11-2023 Start: 06-22-2023 End: 07-11-2023 Prednisone Discontinued 0 MG PO Daily June 22, 2023 12:00am July 11, 2023 1:18pm Take in the morning with food. Pt Unable To Verify Home Med s (14 sources) Start: 10-11-2019 End: 11-02-2019 Pt Unable To Verify Home Med s Discontinued October 10, 2019 11:00pm November 02, 2019 8:21am Start: 10-11-2019 End: 11-02-2019 Pt Unable To Verify Home Med s Discontinued October 11, 2019 12:00am November 02, 2019 9:21am sacubitril 24 mg / valsartan 26 mg oral tablet (20 sources) Angiotensin 2 Receptor Derrek Start: 05-04-2023 End: 10-12-2023 Start: 10-23-2020 End: 09-21-2022 take 0.5 tablet by mouth twice daily sacubitril-valsartan (ENTRESTO) 24-26 mg tablet Indications: Chronic systolic heart failure (HCC) Take 0.5 tablets by mouth twice daily. 90 tablet 3 09/21/2022 Suspended Comment on above: Take 1 tablet by margie th twice daily. TAKE 1 TABLET BY MARGIE TH TWICE A DAY Take 0.5 tablets by mouth twice daily. simvastatin 20 mg oral tablet (12 sources) HMG-CoA Reductase Inhibitor Start: 05-10-2023 End: 05-10-2023 125 ml sodium chloride 9 mg/ml prefilled syringe (3 sources) Start: 03-26-2022 End: 06-25-2023 sodium chloride 0.9 % (flush) 10 mL (BD POSIFLUSH) sulfamethoxazole 800 mg / trimethoprim 160 mg oral tablet (16 sources) Dihydrofolate Reductase Inhibitor Antibacterial, Sulfonamide Antimicrobial Start: 03-08-2021 End: 05-10-2023 Start: 03-08-2021 End: 05-10-2023 take 1 tablet by mouth twice daily Sulfamethoxazole-Trimethoprim (Bactrim D s) 800-160 mg tablet Discontinued 1 TAB PO Twice daily 14 March 08, 2021 1:00am May 10, 2023 8:56am tamsulosin hydrochloride 0.4 mg oral capsule (16 sources) alpha-Adrenergic Derrek Start: 01-05-2018 End: 04-12-2019 ticagrelor 90 mg oral tablet (20 sources) Start: 08-10-2019 End: 05-24-2020 torsemide 20 mg oral tablet (20 sources) Loop Diuretic Start: 05-04-2023 End: 10-12-2023 Start: 09-10-2022 End: 10-12-2023 take 2 tablets by mouth once daily torsemide (DEMADEX) 20 mg tablet Indications: Chronic systolic heart failure (HCC) , Ischemic cardiomyopathy , Coronary artery disease involving [place] coronary artery of [place] heart without angina pectoris , Type 1 diabetes mellitus with diabetic polyneuropathy (HCC) , Dyslipidemia Take 2 tablets by mouth once daily. 180 tablet 3 07/10/2023 Suspended Start: 08-19-2022 End: 09-10-2022 take 2 tablets by mouth twice daily torsemide (DEMADEX) 20 mg tablet Indications: Chronic systolic heart failure (HCC) , Ischemic cardiomyopathy , Coronary artery disease involving [place] coronary artery of [place] heart without angina pectoris , Type 1 [...] Ischemic cardiomyopathy , Coronary artery disease involving [place] coronary artery of [place] heart without angina pectoris , Type 1 [...] TABLETS BY MO UTH TWICE A DAY ubidecarenone 30 mg oral cap gatito (12 sources) Start: 05-10-2023 End: 05-10-2023 Problems Active Problems Problem Classification Problem Date Documented Da te Episodic/Chronic Abdominal pain (4 sources) Flank pain; Translations: [Inguinal pain] 01-22-2019 Episodic Acute and unspecified renal failure (4 sources) Acute tubular necrosis; Translations: [Acute kidney failure with tubular necrosis] Onset: 4 09-26-2023 Episodic Acute bronchitis (3 sources) Acute bronchitis due to other specified organisms; Translations: [Acute bronchitis due to human metapneumovirus (hMPV)] Episodic Acute myocardial infarction (16 sources) Myocardial infarction; Translations: [Acute non-ST segment elevation myocardial infarction] Onset: 6 01-22-2019 Chronic Acute posthemorrhagic anemia (20 sources) Acute posthemorrhagic anemia; Translations: [Acute posthemorrhagic anemia] Onset: 4 04-13-2019 Episodic Administrative/social admission (20 sources) Dietary management surveillance; Translations: [Dietary counseling and surveillance] Onset: 1 Resolved: 2 Episodic Allergic reactions (1 source) Allergic contact dermatitis due to plants, except food; Translations: [Allergic contact dermatitis due to plants, except food] Episodic Cancer of prostate (20 sources) Malignant tumor of prostate; Translations: [Malignant neoplasm of prostate] Onset: 5 10-22-2020 Chronic Cancer of prostate (20 sources) History of malignant neoplasm of prostate; Translations: [Personal history of malignant neoplasm of prostate] Onset: 7 10-22-2020 Episodic Cardiac dysrhythmias (16 sources) Nonsustained ventricular tachycardia ; Translations: [Ventricular tachycardia] 08-10-2019 Chronic Cataract (20 sources) Nuclear senile cataract; Translations: [Age-related nuclear cataract, unspecified eye] Onset: 4 10-22-2020 Chronic Chronic kidney disease (20 sources) Chronic kidney disease; Translations: [Chronic kidney disease, unspecified] Onset: 2 Chronic Chronic obstructive pulmonary disease and bronchiectasis (4 sources) Chronic obstructive lung disease; Translations: [Chronic obstructive pulmonary disease, unspecified] Onset: 4 09-20-2023 Chronic Chronic obstructive pulmonary disease and bronchiectasis (6 sources) Bronchitis, not specified as acute or chronic; Translations: [Bronchitis due to human metapneumovirus (hMPV)] Onset: 4 06-22-2023 Episodic Congestive heart failure; nonhypertensive (20 sources) Chronic [...] nonvenomous arthropods, initial encounter] Episodic Esophageal disorders (19 sources) Gastroesophageal reflux disease; Translations: [Gastro-esophageal reflux disease without esophagitis] Onset: 2 01-22-2019 Chronic Esophageal disorders (1 source) Esophageal disorders; Translations: [Gastro-esophageal reflux disease with esophagitis, without bleeding] Essential hypertension (20 sources) Hypertensive disorder; Translations: [Essential (primary) hypertension] Onset: 4 Resolved: 2 Chronic Fluid and electrolyte disorders (20 sources) Hyponatremia; Translations: [Hypo-osmolality and hyponatremia] Onset: 1 10-22-2020 Episodic Genitourinary symptoms and ill-defined conditions (20 sources) Miguel hematuria; Translations: [Gross hematuria] 05-24-2020 Episodic Hyperplasia of prostate (20 sources) Benign prostatic hypertrophy with outflow obstruction; Translations: [Benign prostatic hyperplasia with lower urinary tract symptoms] Onset: 2 Chronic Infective arthritis and osteomyelitis (except that caused by tuberculosis or sexually transmitted disease) (20 sources) Acute osteomyelitis of ankle and/or foot; Translations: [Other acute osteomyelitis, unspecified ankle and foot] Onset: 2 05-14-2021 Chronic Nausea and vomiting (3 sources) Nausea; Translations: [Nausea] Onset: 4 09-22-2023 Episodic Nonspecific chest pain (16 sources) Chest pain; Translations: [Chest pain, unspecified] 08-10-2019 Episodic Nutritional deficiencies (20 sources) Vitamin D deficiency; Translations: [Vitamin D deficiency, unspecified] Onset: 1 01-16-2021 Chronic Other aftercare (20 sources) Long-term current use of insulin; Translations: [intermediate (current) use of insulin] Onset: 1 01-16-2021 Episodic Other aftercare (20 sources) Drug therapy finding; Translations: [emt intermediate (current) use of systemic steroids] Episodic Other aftercare (19 sources) emt intermediate (current) use of insulin; Translations: [Long-term (current) use of insulin] Onset: 1 Resolved: 2 Episodic Other aftercare (14 sources) Patient encounter status; Translations: [emt intermediate (current) use of antithrombotics/antipl atelets] 05-25-2020 Episodic Other aftercare (3 sources) Insulin dose changed; Translations: [intermediate (current) use of insulin] Onset: 4 09-24-2023 Episodic Other aftercare (2 sources) Long-term current use of drug therapy; Translations: [intermediate (current) use of antithrombotics/antipl atelets] 06-30-2023 Episodic Other and unspecified benign neoplasm (7 sources) Polyp of colon; Translations: [Polyp of colon] 07-16-2023 Episodic Other and unspecified benign neoplasm (6 sources) Polyp of colon; Translations: [Benign neoplasm of colon] 07-18-2023 Episodic Other and unspecified benign neoplasm (3 sources) Adenoma of large intestine; Translations: [Benign neoplasm of colon, unspecified] 08-24-2023 Episodic Other and unspecified benign neoplasm (5 sources) Benign neoplasm of colon, unspecified; Translations: [Benign neoplasm of colon] 08-24-2023 Episodic Other and unspecified benign neoplasm (3 sources) Benign adenomatous neoplasm; Translations: [Benign neoplasm, unspecified site] Onset: 4 09-20-2023 Episodic Other and unspecified benign neoplasm (1 source) Benign neoplasm, unspecified site; Translations: [Tubulovillous adenoma] Onset: 4 Episodic Other bone disease and musculoskeletal deformities (3 sources) Amputated foot; Translations: [Acquired absence of unspecified foot] Onset: 2 05-14-2021 Chronic Other circulatory disease (1 source) Orthostatic hypotension; Translations: [Orthostatic hypotension] Episodic Other circulatory disease (3 sources) Low blood pressure; Translations: [Hypotension, unspecified] Onset: 4 09-20-2023 Episodic Other connective tissue disease (1 source) Other specified soft tissue disorders; Translations: [Other specified soft tissue disorders] Onset: 4 Episodic Other diseases of bladder and urethra (16 sources) Neurogenic bladder; Translations: [Neuromuscular dysfunction of bladder, unspecified] 06-18-2020 Chronic Other diseases of bladder and urethra (2 sources) Male urethral stricture; Translations: [Unspecified bulbous urethral stricture, male] 05-25-2020 Episodic Other diseases of bladder and urethra (18 sources) Urethral stricture; Translations: [Unspecified urethral stricture, male, unspecified site] 05-24-2020 Episodic Other diseases of bladder and urethra (14 sources) Unspecified bulbous urethral stricture, male; Translations: [Stricture of bulbous urethra in male] 05-25-2020 Episodic Other diseases of veins and lymphatics (1 source) Peripheral venous insufficiency; Translations: [Venous insufficiency (chronic) (peripheral)] Episodic Other endocrine disorders (10 sources) Hypoglycemia; Translations: [Hypoglycemia, unspecified] 05-09-2023 Chronic Other endocrine disorders (10 sources) Hypoglycemia, unspecified; Translations: [Hypoglycemia, unspecified] 05-09-2023 Chronic Other gastrointestinal disorders (9 sources) Constipation; Translations: [Constipation, unspecified] 06-17-2020 Episodic Other gastrointestinal disorders (3 sources) Other specified diseases of intestine; Translations: [Other specified disorders of intestine] Onset: 4 09-21-2023 Episodic Other hematologic conditions (9 sources) Raised cardiac enzyme or marker; Translations: [Other specified abnormalities of plasma proteins] 09-16-2020 Episodic Other injuries and conditions due to external causes (1 source) History of fall; Translations: [History of falling] Episodic Other liver diseases (1 source) Elevated liver enzymes level; Translations: [Abnormal levels of other serum enzymes] 10-17-2023 Episodic Other lower respiratory disease (1 source) Disorder of lung; Translations: [Other diseases of lung, not elsewhere classified] Episodic Other lower respiratory disease (16 sources) Cough; Translations: [Cough, unspecified] 05-12-2023 Episodic Other lower respiratory disease (1 source) Solitary nodule of lung; Translations: [Solitary pulmonary nodule] Episodic Other lower respiratory disease (1 source) Lung field abnormal; Translations: [Other nonspecific abnormal finding of lung field] Episodic Other lower respiratory disease (2 sources) Other disorders of lung Episodic Other lower respiratory disease (3 sources) H/O: respiratory disease; Translations: [Personal history of other diseases of the respiratory system] Onset: 4 09-20-2023 Episodic Other lower respiratory disease (1 source) Personal history of other diseases of the respiratory system; Translations: [History of restrictive pulmonary disease] Onset: 4 Episodic Other male genital disorders (2 sources) Impotence 09-07-2018 Chronic Other nervous system disorders (11 sources) Peripheral nerve disease ; Translations: [Polyneuropathy, unspecified] Onset: 1 05-14-2021 Chronic Other nervous system disorders (20 sources) Idiopathic progressive polyneuropathy; Translations: [Idiopathic progressive neuropathy] Onset: 2 05-14-2021 Chronic Other nervous system disorders (20 sources) Neuropathy; Translations: [Polyneuropathy, unspecified] Onset: 1 06-17-2020 Chronic Other nervous system disorders (7 sources) Polyneuropathy, unspecified; Translations: [Mononeuritis of unspecified site] Onset: 4 05-09-2023 Chronic Other nervous system disorders (2 sources) Paresthesia of skin Episodic Other nervous system disorders (3 sources) Postoperative pain ; Translations: [Other acute postprocedural pain] Onset: 4 09-20-2023 Episodic Other nutritional; endocrine; and metabolic disorders (20 sources) Obese class I; Translations: [Obesity, unspecified] Onset: 6 01-16-2021 Chronic Other nutritional; endocrine; and metabolic disorders (20 sources) Obesity; Translations: [Obesity, unspecified] Resolved: 2 Chronic Other nutritional; endocrine; and metabolic disorders (20 sources) Body mass index 30+ - obesity; Translations: [Body mass index (BMI) 32.0-32.9, adult] 05-12-2023 Chronic Other nutritional; endocrine; and metabolic disorders (20 sources) Obese class II; Translations: [Body mass index (BMI) 39.0-39.9, adult] Chronic Other nutritional; endocrine; and metabolic disorders (2 sources) Body mass index (BMI) 31.0-31.9, adult Onset: 1 Resolved: 1 Chronic Other nutritional; endocrine; and metabolic disorders (10 sources) Body mass index (BMI) 32.0-32.9, adult; Translations: [Body Mass Index 32.0-32.9, adult] Onset: 2 Resolved: 2 Chronic Other nutritional; endocrine; and metabolic disorders (1 source) Body mass index (BMI) 30.0-30.9, adult Chronic Other nutritional; endocrine; and metabolic disorders (1 source) Simple obesity ; Translations: [Other obesity due to excess calories] Onset: 6 Chronic Other nutritional; endocrine; and metabolic disorders (5 sources) Body mass index (BMI) 34.0-34.9, adult; Translations: [Body Mass Index 34.0-34.9, adult] 08-16-2023 Chronic Other nutritional; endocrine; and metabolic disorders (1 source) Obesity, unspecified; Translations: [Obesity, Class I, BMI 30-34.9] Onset: 4 Chronic Other screening for suspected conditions (not mental disorders or infectious disease) (7 sources) Encounter for screening for malignant neoplasm of prostate; Translations: [Encounter for screening for malignant neoplasm of colon] Onset: 4 Resolved: 4 Episodic Other skin disorders (1 source) Folliculitis; Translations: [Follicular disorder, unspecified] Episodic Other upper respiratory disease (10 sources) Allergic rhinitis; Translations: [Allergic rhinitis, unspecified] 05-12-2023 Chronic Other upper respiratory disease (6 sources) Allergic rhinitis, unspecified; Translations: [Allergic rhinitis, cause unspecified] 05-12-2023 Chronic Other upper respiratory disease (2 sources) Acute bronchospasm; Translations: [Acute bronchospasm] 06-22-2023 Episodic Other upper respiratory disease (1 source) Acute bronchospasm; Translations: [Acute bronchospasm] Onset: 4 Episodic Other upper respiratory infections (4 sources) Acute maxillary sinusitis; Translations: [Acute maxillary sinusitis, unspecified] Onset: 4 07-11-2023 Episodic Peripheral and visceral atherosclerosis (20 sources) Peripheral vascular disease; Translations: [Peripheral vascular disease, unspecified] Onset: 5 01-16-2021 Chronic Pleurisy; pneumothorax; pulmonary collapse (20 sources) Pleural effusion; Translations: [Pleural effusion, not elsewhere classified] Onset: 1 10-22-2020 Episodic Pulmonary heart disease (4 sources) Pulmonary hypertension; Translations: [Pulmonary hypertension, unspecified] Onset: 4 09-20-2023 Chronic Residual codes; unclassified (12 sources) Sleep apnea; Translations: [Sleep apnea, unspecified] 05-10-2023 Chronic Residual codes; unclassified (1 source) Absence of lung; Translations: [Acquired absence of lung [part of]] Episodic Residual codes; unclassified (12 sources) Past history of procedure; Translations: [Other specified postprocedural states] 05-26-2023 Episodic Residual codes; unclassified (5 sources) Peripheral edema; Translations: [Localized edema] 08-17-2023 Episodic Respiratory failure; insufficiency; arrest (adult) (9 sources) Acute respiratory failure; Translations: [Acute respiratory failure with hypoxia] Onset: 4 06-22-2023 Episodic Shock (4 sources) Cardiogenic shock; Translations: [Cardiogenic shock] Onset: 4 Resolved: 4 09-20-2023 Episodic Spondylosis; intervertebral disc disorders; other back problems (20 sources) Cervical spondylosis; Translations: [Other spondylosis with radiculopathy, cervical region] Onset: 8 Chronic Substance-related disorders (9 sources) Smoker; Translations: [Nicotine dependence] Onset: 4 01-17-2019 Chronic Unclassified (1 source) Long-term current use of drug therapy; Translations: [Long-term (current) use of other medications] Onset: 9 Unclassified (1 source) Pleural effusion, not elsewhere classified; Translations: [Pleural effusion, not elsewhere classified] Onset: 4 Unclassified (1 source) Benign prostatic hyperplasia with lower urinary tract symptoms; Translations: [Benign prostatic hyperplasia with lower urinary tract symptoms] Onset: 3 Viral infection (12 sources) Disease caused by 2019-nCoV; Translations: [COVID-19] Onset: 4 03-08-2021 Episodic Past or Other Problems Problem Classification Problem Date Documented Date Episodic/Chronic Bacterial infection; unspecified site (1 source) Bacterial infectious disease; Translations: [Bacterial infection, unspecified, in conditions classified elsewhere and of unspecified site] Onset: 04-07-2018 Episodic Chronic ulcer of skin (20 sources) Perforating ulcer of the foot; Translations: [Non-pressure chronic ulcer of other part of unspecified foot with unspecified severity] Onset: 04-15-2014 Resolved: 10-16-2021 01-16-2021 Chronic Malaise and fatigue (1 source) Malaise and fatigue; Translations: [Other malaise and fatigue] Onset: 02-10-2018 Episodic Mycoses (20 sources) Onychomycosis due to dermatophyte ; Translations: [Tinea unguium] Onset: 05-14-2021 05-14-2021 Episodic Noninfectious gastroenteritis (1 source) Non-infective enteritis and colitis; Translations: [Noninfective gastroenteritis and colitis, unspecified] Onset: 10-05-2013 Episodic Other bone disease and musculoskeletal deformities (20 sources) Absence of toe; Translations: [Acquired absence of other right toe(s)] Onset: 05-14-2021 05-14-2021 Episodic Other circulatory disease (19 sources) History of cerebrovascular accident; Translations: [Personal history of transient ischemic attack (TIA), and cerebral infarction without residual deficits] Onset: 01-21-2022 01-22-2019 Episodic Other eye disorders (14 sources) Crystalline deposits in vitreous; Translations: [Crystalline deposits in vitreous body, unspecified eye] Onset: 12-05-2013 Resolved: 03-26-2022 10-22-2020 Chronic Other lower respiratory disease (1 source) Hypoxemia; Translations: [Hypoxemia] Resolved: 10-28-2020 Episodic Other nervous system disorders (20 sources) Paresthesia; Translations: [Paresthesia of skin] Onset: 01-24-2018 05-14-2021 Episodic Other non-traumatic joint disorders (1 source) Shoulder joint pain; Translations: [Pain in joint, shoulder region] Onset: 04-26-2013 Episodic Pneumonia (except that caused by tuberculosis [...] Test Name Value Interpretation Reference Range Facility Basophils Auto (Bld) [#/Vol] on 10-28-2023 Basophils (Bld) [#/Vol] 0.1 10 3/uL 0.0-0.1 [facility] Basophils/100 WBC Auto (Bld) on 10-28-2023 Basophils/100 WBC (Bld) 0.8 % 0.2-2.0 [facility] Eosinophils/100 WBC Auto (Bl d)on 10-28-2023 Eosinophils/100 WBC (Bld) 1.0 % 0.9-7.0 [facility] Erythrocyte distribution wid th Auto (RBC) [Ratio]on 10-28-2023 Erythrocyte distribution width (RBC) [Ratio] 18.3 % High 11.0-15.0 [facility] Estimated glomerular filtrat ion rate (GFR) non- Americanon 10-28-2023 GFR/1.73 sq M.predicted among non-blacks MDRD (S/P/Bld) [Vol rate/Area] mL/min/{1.73_m2} >=60 [facility] Globulin Calc (S) [Mass/Vol] on 10-28-2023 Globulin (S) [Mass/Vol] 3.6 g/dL [facility] Hematocrit Auto (Bld) [Volum e fraction]on 10-28-2023 Hematocrit (Bld) [Volume fraction] 29.0 % Low 42.0-54.0 [facility] Hemoglobin [Mass/volume] in Bloodon 10-28-2023 Hemoglobin (Bld) [Mass/Vol] 9.2 g/dL Low 14.0-18.0 [facility] Leukocytes [#/volume] correc leticia for nucleated erythrocytes in Blood by Automated counon 10-28-2023 WBC corrected for nucl RBC Auto (Bld) [#/Vol] 7.1 10 3/uL 4.0-11.0 [facility] Lymphocytes Auto (Bld) [#/Vo l]on 10-28-2023 Lymphocytes (Bld) [#/Vol] 0.8 10 3/uL Low 1.2-3.8 [facility] Lymphocytes/100 WBC Auto (Bl d)on 10-28-2023 Lymphocytes/100 WBC (Bld) 11.4 % Low 20.5-60.0 [facility] MCH Auto (RBC) [Entitic mass ]on 10-28-2023 MCH (RBC) [Entitic mass] 26.9 pg 25.9-34.0 [facility] MCHC Auto (RBC) [Mass/Vol]on 10-28-2023 MCHC (RBC) [Mass/Vol] 31.7 g/dL 29.9-35.2 [facility] MCV Auto (RBC) [Entitic vol] on 10-28-2023 MCV (RBC) [Entitic vol] 84.8 fL 80.0-94.0 [facility] Monocytes Auto (Bld) [#/Vol] on 10-28-2023 Monocytes (Bld) [#/Vol] 0.8 10 3/uL 0.3-0.8 [facility] Monocytes/100 WBC Auto (Bld) on 10-28-2023 Monocytes/100 WBC (Bld) 11.5 % 1.7-12.0 [facility] Neutrophils Auto (Bld) [#/Vo l]on 10-28-2023 Neutrophils (Bld) [#/Vol] 5.3 10 3/uL 1.4-6.5 [facility] Neutrophils/100 WBC Auto (Bl d)on 10-28-2023 Neutrophils/100 WBC (Bld) 74.7 % 43.0-75.0 [facility] No Panel Informationon 10-27 5969.0 pg/mL High <=900.0 [facility] 42.3 pg/mL 4.0-76.1 [facility] 2.1 mg/dL 1.8-2.4 [facility] 2.3 g/dL Low 3.4-5.0 [facility] 0.1 10 3/uL 0.0-0.7 [facility] 234 U/L High 46-116 [facility] 42 U/L 16-63 [facility] 14 U/L Low 15-37 [facility] 20.7 [facility] 0.04 10 3/uL High 0.00-0.03 [facility] 23.0 mg/dL High 7.0-18.0 [facility] 0.6 % High 0.0-0.5 [facility] 8.4 mg/dL Low 8.5-10.1 [facility] 96 mmol/L Low 98-107 [facility] 37.1 mmol/L High 21.0-32.0 [facility] 1.11 mg/dL 0.70-1.30 [facility] >60 >=60 [facility] 84 mg/dL 74-106 [facility] 4.4 mmol/L 3.5-5.1 [facility] 134 mmol/L Low 136-145 [facility] 0.7 mg/dL 0.2-1.0 [facility] 5.9 g/dL Low 6.4-8.2 [facility] Platelet mean volume Auto (B ld) [Entitic vol]on 10-28-2023 Platelet mean volume (Bld) [Entitic vol] 9.7 fL 9.5-13.5 [facility] Platelets Auto (Bld) [#/Vol] on 10-28-2023 Platelets (Bld) [#/Vol] 285 10 3/uL 150-450 [facility] RBC Auto (Bld) [#/Vol]on RBC (Bld) [#/Vol] 3.42 10 6/uL Low 4.70-6.10 [facility] Serum or plasma albumin/glob ulin mass ratioon 10-28-2023 Albumin/Globulin [Mass ratio] 0.6 {ratio} [facility] Serum or plasma anion gap de terminationon 10-28-2023 Anion gap [Moles/Vol] 5.3 mmol/L [facility] Basophils Auto (Bld) [#/Vol] on 10-27-2023 Basophils (Bld) [#/Vol] 0.0 10 3/uL 0.0-0.1 [facility] Basophils/100 WBC Auto (Bld) on 10-27-2023 Basophils/100 WBC (Bld) 0.5 % 0.2-2.0 [facility] Eosinophils/100 WBC Auto (Bl d)on 10-27-2023 Eosinophils/100 WBC (Bld) 0.7 % Low 0.9-7.0 [facility] Erythrocyte distribution wid th Auto (RBC) [Ratio]on 10-27-2023 Erythrocyte distribution width (RBC) [Ratio] 18.0 % High 11.0-15.0 [facility] Estimated glomerular filtrat ion rate (GFR) non- Americanon 10-27-2023 GFR/1.73 sq M.predicted among non-blacks MDRD (S/P/Bld) [Vol rate/Area] mL/min/{1.73_m2} >=60 [facility] Globulin Calc (S) [Mass/Vol] on 10-27-2023 Globulin (S) [Mass/Vol] 3.4 g/dL [facility] Hematocrit Auto (Bld) [Volum e fraction]on 10-27-2023 Hematocrit (Bld) [Volume fraction] 30.8 % Low 42.0-54.0 [facility] Hemoglobin [Mass/volume] in Bloodon 10-27-2023 Hemoglobin (Bld) [Mass/Vol] 9.8 g/dL Low 14.0-18.0 [facility] Leukocytes [#/volume] correc leticia for nucleated erythrocytes in Blood by Automated counon 10-27-2023 WBC corrected for nucl RBC Auto (Bld) [#/Vol] 7.4 10 3/uL 4.0-11.0 [facility] Lymphocytes Auto (Bld) [#/Vo l]on 10-27-2023 Lymphocytes (Bld) [#/Vol] 0.8 10 3/uL Low 1.2-3.8 [facility] Lymphocytes/100 WBC Auto (Bl d)on 10-27-2023 Lymphocytes/100 WBC (Bld) 10.7 % Low 20.5-60.0 [facility] MCH Auto (RBC) [Entitic mass ]on 10-27-2023 MCH (RBC) [Entitic mass] 27.1 pg 25.9-34.0 [facility] MCHC Auto (RBC) [Mass/Vol]on 10-27-2023 MCHC (RBC) [Mass/Vol] 31.8 g/dL 29.9-35.2 [facility] MCV Auto (RBC) [Entitic vol] on 10-27-2023 MCV (RBC) [Entitic vol] 85.1 fL 80.0-94.0 [facility] Monocytes Auto (Bld) [#/Vol] on 10-27-2023 Monocytes (Bld) [#/Vol] 0.9 10 3/uL High 0.3-0.8 [facility] Monocytes/100 WBC Auto (Bld) on 10-27-2023 Monocytes/100 WBC (Bld) 11.5 % 1.7-12.0 [facility] Neutrophils Auto (Bld) [#/Vo l]on 10-27-2023 Neutrophils (Bld) [#/Vol] 5.6 10 3/uL 1.4-6.5 [facility] Neutrophils/100 WBC Auto (Bl d)on 10-27-2023 Neutrophils/100 WBC (Bld) 75.8 % High 43.0-75.0 [facility] No Panel Informationon 10-26 5755.0 pg/mL High <=900.0 [facility] 42.8 pg/mL 4.0-76.1 [facility] 2.2 mg/dL 1.8-2.4 [facility] 2.3 g/dL Low 3.4-5.0 [facility] 0.1 10 3/uL 0.0-0.7 [facility] 254 U/L High 46-116 [facility] 52 U/L 16-63 [facility] 18 U/L 15-37 [facility] 18.8 [facility] 0.06 10 3/uL High 0.00-0.03 [facility] 22.0 mg/dL High 7.0-18.0 [facility] 0.8 % High 0.0-0.5 [facility] 8.6 mg/dL 8.5-10.1 [facility] 99 mmol/L 98-107 [facility] 36.9 mmol/L High 21.0-32.0 [facility] 1.17 mg/dL 0.70-1.30 [facility] >60 >=60 [facility] 109 mg/dL High 74-106 [facility] 5.1 mmol/L 3.5-5.1 [facility] 137 mmol/L 136-145 [facility] 0.8 mg/dL 0.2-1.0 [facility] 5.7 g/dL Low 6.4-8.2 [facility] Platelet mean volume Auto (B ld) [Entitic vol]on 10-27-2023 Platelet mean volume (Bld) [Entitic vol] 9.7 fL 9.5-13.5 [facility] Platelets Auto (Bld) [#/Vol] on 10-27-2023 Platelets (Bld) [#/Vol] 296 10 3/uL 150-450 [facility] RBC Auto (Bld) [#/Vol]on RBC (Bld) [#/Vol] 3.62 10 6/uL Low 4.70-6.10 [facility] Serum or plasma albumin/glob ulin mass ratioon 10-27-2023 Albumin/Globulin [Mass ratio] 0.7 {ratio} [facility] Serum or plasma anion gap de terminationon 10-27-2023 Anion gap [Moles/Vol] 6.2 mmol/L [facility] Basophils Auto (Bld) [#/Vol] on 10-26-2023 Basophils (Bld) [#/Vol] 0.1 10 3/uL 0.0-0.1 [facility] Basophils/100 WBC Auto (Bld) on 10-26-2023 Basophils/100 WBC (Bld) 0.8 % 0.2-2.0 [facility] Eosinophils/100 WBC Auto (Bl d)on 10-26-2023 Eosinophils/100 WBC (Bld) 1.2 % 0.9-7.0 [facility] Erythrocyte distribution wid th Auto (RBC) [Ratio]on 10-26-2023 Erythrocyte distribution width (RBC) [Ratio] 18.2 % High 11.0-15.0 [facility] Estimated glomerular filtrat ion rate (GFR) non- Americanon 10-26-2023 GFR/1.73 sq M.predicted among non-blacks MDRD (S/P/Bld) [Vol rate/Area] 60 mL/min/{1.73_m2} >=60 [facility] Globulin Calc (S) [Mass/Vol] on 10-26-2023 Globulin (S) [Mass/Vol] 3.3 g/dL [facility] Hematocrit Auto (Bld) [Volum e fraction]on 10-26-2023 Hematocrit (Bld) [Volume fraction] 29.8 % Low 42.0-54.0 [facility] Hemoglobin [Mass/volume] in Bloodon 10-26-2023 Hemoglobin (Bld) [Mass/Vol] 9.5 g/dL Low 14.0-18.0 [facility] Hemoglobin.gastrointestinal [Presence] in Stoolon 10-26-2023 Hemoglobin.gastrointes tinal Ql (Stl) Negative [facility] Leukocytes [#/volume] correc leticia for nucleated erythrocytes in Blood by Automated counon 10-26-2023 WBC corrected for nucl RBC Auto (Bld) [#/Vol] 6.4 10 3/uL 4.0-11.0 [facility] Lymphocytes Auto (Bld) [#/Vo l]on 10-26-2023 Lymphocytes (Bld) [#/Vol] 0.7 10 3/uL Low 1.2-3.8 [facility] Lymphocytes/100 WBC Auto (Bl d)on 10-26-2023 Lymphocytes/100 WBC (Bld) 11.1 % Low 20.5-60.0 [facility] MCH Auto (RBC) [Entitic mass ]on 10-26-2023 MCH (RBC) [Entitic mass] 27.4 pg 25.9-34.0 [facility] MCHC Auto (RBC) [Mass/Vol]on 10-26-2023 MCHC (RBC) [Mass/Vol] 31.9 g/dL 29.9-35.2 [facility] MCV Auto (RBC) [Entitic vol] on 10-26-2023 MCV (RBC) [Entitic vol] 85.9 fL 80.0-94.0 [facility] Monocytes Auto (Bld) [#/Vol] on 10-26-2023 Monocytes (Bld) [#/Vol] 0.8 10 3/uL 0.3-0.8 [facility] Monocytes/100 WBC Auto (Bld) on 10-26-2023 Monocytes/100 WBC (Bld) 12.5 % High 1.7-12.0 [facility] Neutrophils Auto (Bld) [#/Vo l]on 10-26-2023 Neutrophils (Bld) [#/Vol] 4.7 10 3/uL 1.4-6.5 [facility] Neutrophils/100 WBC Auto (Bl d)on 10-26-2023 Neutrophils/100 WBC (Bld) 73.8 % 43.0-75.0 [facility] No Panel Informationon 10-25 6758.0 pg/mL High <=900.0 [facility] 38.2 pg/mL 4.0-76.1 [facility] 2.0 mg/dL 1.8-2.4 [facility] 2.4 g/dL Low 3.4-5.0 [facility] 0.1 10 3/uL 0.0-0.7 [facility] 282 U/L High 46-116 [facility] 66 U/L High 16-63 [facility] 22 U/L 15-37 [facility] 20.8 [facility] 0.04 10 3/uL High 0.00-0.03 [facility] 25.0 mg/dL High 7.0-18.0 [facility] 0.6 % High 0.0-0.5 [facility] 8.3 mg/dL Low 8.5-10.1 [facility] 98 mmol/L 98-107 [facility] 36.2 mmol/L High 21.0-32.0 [facility] 1.20 mg/dL 0.70-1.30 [facility] >60 >=60 [facility] 110 mg/dL High 74-106 [facility] 4.0 mmol/L 3.5-5.1 [facility] 135 mmol/L Low 136-145 [facility] 0.9 mg/dL 0.2-1.0 [facility] 5.7 g/dL Low 6.4-8.2 [facility] Platelet mean volume Auto (B ld) [Entitic vol]on 10-26-2023 Platelet mean volume (Bld) [Entitic vol] 9.6 fL 9.5-13.5 [facility] Platelets Auto (Bld) [#/Vol] on 10-26-2023 Platelets (Bld) [#/Vol] 291 10 3/uL 150-450 [facility] RBC Auto (Bld) [#/Vol]on RBC (Bld) [#/Vol] 3.47 10 6/uL Low 4.70-6.10 [facility] Serum or plasma albumin/glob ulin mass ratioon 10-26-2023 Albumin/Globulin [Mass ratio] 0.7 {ratio} [facility] Serum or plasma anion gap de terminationon 10-26-2023 Anion gap [Moles/Vol] 4.8 mmol/L [facility] Basophils Auto (Bld) [#/Vol] on 10-25-2023 Basophils (Bld) [#/Vol] 0.0 10 3/uL 0.0-0.1 [facility] Basophils/100 WBC Auto (Bld) on 10-25-2023 Basophils/100 WBC (Bld) 0.7 % 0.2-2.0 [facility] Eosinophils/100 WBC Auto (Bl d)on 10-25-2023 Eosinophils/100 WBC (Bld) 1.2 % 0.9-7.0 [facility] Erythrocyte distribution wid th Auto (RBC) [Ratio]on 10-25-2023 Erythrocyte distribution width (RBC) [Ratio] 18.1 % High 11.0-15.0 [facility] Estimated glomerular filtrat ion rate (GFR) non- Americanon 10-25-2023 GFR/1.73 sq M.predicted among non-blacks MDRD (S/P/Bld) [Vol rate/Area] 56 mL/min/{1.73_m2} Low >=60 [facility] Globulin Calc (S) [Mass/Vol] on 10-25-2023 Globulin (S) [Mass/Vol] 3.2 g/dL [facility] Hematocrit Auto (Bld) [Volum e fraction]on 10-25-2023 Hematocrit (Bld) [Volume fraction] 28.0 % Low 42.0-54.0 [facility] Hemoglobin [Mass/volume] in Bloodon 10-25-2023 Hemoglobin (Bld) [Mass/Vol] 8.9 g/dL Low 14.0-18.0 [facility] Leukocytes [#/volume] correc leticia for nucleated erythrocytes in Blood by Automated counon 10-25-2023 WBC corrected for nucl RBC Auto (Bld) [#/Vol] 6.0 10 3/uL 4.0-11.0 [facility] Lymphocytes Auto (Bld) [#/Vo l]on 10-25-2023 Lymphocytes (Bld) [#/Vol] 0.7 10 3/uL Low 1.2-3.8 [facility] Lymphocytes/100 WBC Auto (Bl d)on 10-25-2023 Lymphocytes/100 WBC (Bld) 11.7 % Low 20.5-60.0 [facility] MCH Auto (RBC) [Entitic mass ]on 10-25-2023 MCH (RBC) [Entitic mass] 27.0 pg 25.9-34.0 [facility] MCHC Auto (RBC) [Mass/Vol]on 10-25-2023 MCHC (RBC) [Mass/Vol] 31.8 g/dL 29.9-35.2 [facility] MCV Auto (RBC) [Entitic vol] on 10-25-2023 MCV (RBC) [Entitic vol] 84.8 fL 80.0-94.0 [facility] Monocytes Auto (Bld) [#/Vol] on 10-25-2023 Monocytes (Bld) [#/Vol] 0.7 10 3/uL 0.3-0.8 [facility] Monocytes/100 WBC Auto (Bld) on 10-25-2023 Monocytes/100 WBC (Bld) 12.0 % 1.7-12.0 [facility] Neutrophils Auto (Bld) [#/Vo l]on 10-25-2023 Neutrophils (Bld) [#/Vol] 4.4 10 3/uL 1.4-6.5 [facility] Neutrophils/100 WBC Auto (Bl d)on 10-25-2023 Neutrophils/100 WBC (Bld) 73.7 % 43.0-75.0 [facility] No Panel Informationon 10-24 05669.0 pg/mL High <=900.0 [facility] 46.8 pg/mL 4.0-76.1 [facility] 1.9 mg/dL 1.8-2.4 [facility] 2.4 g/dL Low 3.4-5.0 [facility] 0.1 10 3/uL 0.0-0.7 [facility] 315 U/L High 46-116 [facility] 84 U/L High 16-63 [facility] 37 U/L 15-37 [facility] 21.3 [facility] 0.04 10 3/uL High 0.00-0.03 [facility] 27.0 mg/dL High 7.0-18.0 [facility] 0.7 % High 0.0-0.5 [facility] 8.2 mg/dL Low 8.5-10.1 [facility] 98 mmol/L 98-107 [facility] 35.0 mmol/L High 21.0-32.0 [facility] 1.27 mg/dL 0.70-1.30 [facility] >60 >=60 [facility] 109 mg/dL High 74-106 [facility] 3.6 mmol/L 3.5-5.1 [facility] 135 mmol/L Low 136-145 [facility] 0.9 mg/dL 0.2-1.0 [facility] 5.6 g/dL Low 6.4-8.2 [facility] Platelet mean volume Auto (B ld) [Entitic vol]on 10-25-2023 Platelet mean volume (Bld) [Entitic vol] 9.7 fL 9.5-13.5 [facility] Platelets Auto (Bld) [#/Vol] on 10-25-2023 Platelets (Bld) [#/Vol] 260 10 3/uL 150-450 [facility] RBC Auto (Bld) [#/Vol]on RBC (Bld) [#/Vol] 3.30 10 6/uL Low 4.70-6.10 [facility] Serum or plasma albumin/glob ulin mass ratioon 10-25-2023 Albumin/Globulin [Mass ratio] 0.8 {ratio} [facility] Serum or plasma anion gap de terminationon 10-25-2023 Anion gap [Moles/Vol] 5.6 mmol/L [facility] Activated partial thrombopla stin time (aPTT) in platelet poor plasma by coagulation aon 10-24-2023 aPTT Coag (PPP) [Time] 34.7 s 22.3-36.2 [facility] Basophils Auto (Bld) [#/Vol] on 10-24-2023 Basophils (Bld) [#/Vol] 0.1 10 3/uL 0.0-0.1 [facility] Basophils/100 WBC Auto (Bld) on 10-24-2023 Basophils/100 WBC (Bld) 0.7 % 0.2-2.0 [facility] Eosinophils/100 WBC Auto (Bl d)on 10-24-2023 Eosinophils/100 WBC (Bld) 0.6 % Low 0.9-7.0 [facility] Erythrocyte distribution wid th Auto (RBC) [Ratio]on 10-24-2023 Erythrocyte distribution width (RBC) [Ratio] 18.0 % High 11.0-15.0 [facility] Estimated glomerular filtrat ion rate (GFR) non- Americanon 10-24-2023 GFR/1.73 sq M.predicted among non-blacks MDRD (S/P/Bld) [Vol rate/Area] 51 mL/min/{1.73_m2} Low >=60 [facility] Globulin Calc (S) [Mass/Vol] on 10-24-2023 Globulin (S) [Mass/Vol] 3.7 g/dL [facility] Hematocrit Auto (Bld) [Volum e fraction]on 10-24-2023 Hematocrit (Bld) [Volume fraction] 30.4 % Low 42.0-54.0 [facility] Hemoglobin [Mass/volume] in Bloodon 10-24-2023 Hemoglobin (Bld) [Mass/Vol] 9.9 g/dL Low 14.0-18.0 [facility] INR in Platelet poor plasma by Coagulation assayon 10-24-2023 INR Coag (PPP) [Relative time] 1.28 {INR} [facility] Leukocytes [#/volume] correc leticia for nucleated erythrocytes in Blood by Automated counon 10-24-2023 WBC corrected for nucl RBC Auto (Bld) [#/Vol] 7.2 10 3/uL 4.0-11.0 [facility] Lymphocytes Auto (Bld) [#/Vo l]on 10-24-2023 Lymphocytes (Bld) [#/Vol] 0.8 10 3/uL Low 1.2-3.8 [facility] Lymphocytes/100 WBC Auto (Bl d)on 10-24-2023 Lymphocytes/100 WBC (Bld) 11.7 % Low 20.5-60.0 [facility] MCH Auto (RBC) [Entitic mass ]on 10-24-2023 MCH (RBC) [Entitic mass] 27.9 pg 25.9-34.0 [facility] MCHC Auto (RBC) [Mass/Vol]on 10-24-2023 MCHC (RBC) [Mass/Vol] 32.6 g/dL 29.9-35.2 [facility] MCV Auto (RBC) [Entitic vol] on 10-24-2023 MCV (RBC) [Entitic vol] 85.6 fL 80.0-94.0 [facility] Monocytes Auto (Bld) [#/Vol] on 10-24-2023 Monocytes (Bld) [#/Vol] 0.8 10 3/uL 0.3-0.8 [facility] Monocytes/100 WBC Auto (Bld) on 10-24-2023 Monocytes/100 WBC (Bld) 11.3 % 1.7-12.0 [facility] Neutrophils Auto (Bld) [#/Vo l]on 10-24-2023 Neutrophils (Bld) [#/Vol] 5.4 10 3/uL 1.4-6.5 [facility] Neutrophils/100 WBC Auto (Bl d)on 10-24-2023 Neutrophils/100 WBC (Bld) 75.0 % 43.0-75.0 [facility] No Panel Informationon 10-23 41.5 pg/mL 4.0-76.1 [facility] Negative NEG/TRACE [facility] CLEAR CLEAR [facility] YELLOW YELLOW [facility] 6.0 5.0-9.0 [facility] 1.015 1.005-1.025 [facility] 0.2 EU/dL 0.2-1.0 [facility] 3.499 u[iU]/mL 0.358-3.740 [facility] 5.80 ug/dL 4.50-12.10 [facility] 1.60 pg/mL Low 2.18-3.98 [facility] 2.0 mg/dL 1.8-2.4 [facility] 66525.0 pg/mL High <=900.0 [facility] 50.5 mm[Hg] 40.0-52.0 [facility] 7.462 High 7.330-7.430 [facility] 2.8 g/dL Low 3.4-5.0 [facility] 0.0 10 3/uL 0.0-0.7 [facility] 355 U/L High 46-116 [facility] 98 U/L High 16-63 [facility] 42 U/L High 15-37 [facility] 21.6 [facility] 0.05 10 3/uL High 0.00-0.03 [facility] 30.0 mg/dL High 7.0-18.0 [facility] 0.7 % High 0.0-0.5 [facility] 8.7 mg/dL 8.5-10.1 [facility] 97 mmol/L Low 98-107 [facility] 34.7 mmol/L High 21.0-32.0 [facility] 1.39 mg/dL High 0.70-1.30 [facility] >60 >=60 [facility] 135 mg/dL High 74-106 [facility] 4.0 mmol/L 3.5-5.1 [facility] 135 mmol/L Low 136-145 [facility] 1.1 mg/dL High 0.2-1.0 [facility] 6.5 g/dL 6.4-8.2 [facility] Platelet mean volume Auto (B ld) [Entitic vol]on 10-24-2023 Platelet mean volume (Bld) [Entitic vol] 9.7 fL 9.5-13.5 [facility] Platelets Auto (Bld) [#/Vol] on 10-24-2023 Platelets (Bld) [#/Vol] 275 10 3/uL 150-450 [facility] Prothrombin time (PT)on 10-12 PT Coag (PPP) [Time] 13.2 s High 9.0-11.6 [facility] RBC Auto (Bld) [#/Vol]on RBC (Bld) [#/Vol] 3.55 10 6/uL Low 4.70-6.10 [facility] Serum or plasma albumin/glob ulin mass ratioon 10-24-2023 Albumin/Globulin [Mass ratio] 0.8 {ratio} [facility] Serum or plasma anion gap de terminationon 10-24-2023 Anion gap [Moles/Vol] 7.3 mmol/L [facility] Basophils Auto (Bld) [#/Vol] on 10-18-2023 Basophils (Bld) [#/Vol] 0.0 10 3/uL 0.0-0.1 [facility] Basophils/100 WBC Auto (Bld) on 10-18-2023 Basophils/100 WBC (Bld) 0.7 % 0.2-2.0 [facility] Eosinophils/100 WBC Auto (Bl d)on 10-18-2023 Eosinophils/100 WBC (Bld) 2.2 % 0.9-7.0 [facility] Erythrocyte distribution wid th Auto (RBC) [Ratio]on 10-18-2023 Erythrocyte distribution width (RBC) [Ratio] 17.4 % High 11.0-15.0 [facility] Globulin Calc (S) [Mass/Vol] on 10-18-2023 Globulin (S) [Mass/Vol] 3.4 g/dL [facility] Hematocrit Auto (Bld) [Volum e fraction]on 10-18-2023 Hematocrit (Bld) [Volume fraction] 29.3 % Low 42.0-54.0 [facility] Hemoglobin [Mass/volume] in Bloodon 10-18-2023 Hemoglobin (Bld) [Mass/Vol] 9.4 g/dL Low 14.0-18.0 [facility] Iron binding capacity [Mass/ volume] in Serum or Plasmaon 10-18-2023 Iron binding capacity [Mass/Vol] 274.0 ug/dL 250.0-450.0 [facility] Iron saturation [Mass Fracti on] in Serum or Plasmaon 10-18-2023 Iron saturation [Mass fraction] 6.6 % [facility] Leukocytes [#/volume] correc leticia for nucleated erythrocytes in Blood by Automated counon 10-18-2023 WBC corrected for nucl RBC Auto (Bld) [#/Vol] 5.9 10 3/uL 4.0-11.0 [facility] Lymphocytes Auto (Bld) [#/Vo l]on 10-18-2023 Lymphocytes (Bld) [#/Vol] 0.6 10 3/uL Low 1.2-3.8 [facility] Lymphocytes/100 WBC Auto (Bl d)on 10-18-2023 Lymphocytes/100 WBC (Bld) 9.7 % Low 20.5-60.0 [facility] MCH Auto (RBC) [Entitic mass ]on 10-18-2023 MCH (RBC) [Entitic mass] 27.8 pg 25.9-34.0 [facility] MCHC Auto (RBC) [Mass/Vol]on 10-18-2023 MCHC (RBC) [Mass/Vol] 32.1 g/dL 29.9-35.2 [facility] MCV Auto (RBC) [Entitic vol] on 10-18-2023 MCV (RBC) [Entitic vol] 86.7 fL 80.0-94.0 [facility] Monocytes Auto (Bld) [#/Vol] on 10-18-2023 Monocytes (Bld) [#/Vol] 0.5 10 3/uL 0.3-0.8 [facility] Monocytes/100 WBC Auto (Bld) on 10-18-2023 Monocytes/100 WBC (Bld) 9.0 % 1.7-12.0 [facility] Neutrophils Auto (Bld) [#/Vo l]on 10-18-2023 Neutrophils (Bld) [#/Vol] 4.6 10 3/uL 1.4-6.5 [facility] Neutrophils/100 WBC Auto (Bl d)on 10-18-2023 Neutrophils/100 WBC (Bld) 77.7 % High 43.0-75.0 [facility] No Panel Informationon 10-17 124.0 ng/mL 26.0-388.0 [facility] 18.0 ug/dL Low 65.0-175.0 [facility] 2.8 g/dL Low 3.4-5.0 [facility] 382 U/L High 46-116 [facility] 0.1 10 3/uL 0.0-0.7 [facility] 178 U/L High 16-63 [facility] 49 U/L High 15-37 [facility] 0.6 mg/dL High 0.0-0.2 [facility] 0.04 10 3/uL High 0.00-0.03 [facility] 1.6 mg/dL High 0.2-1.0 [facility] 0.7 % High 0.0-0.5 [facility] 6.2 g/dL Low 6.4-8.2 [facility] Platelet mean volume Auto (B ld) [Entitic vol]on 10-18-2023 Platelet mean volume (Bld) [Entitic vol] 9.8 fL 9.5-13.5 [facility] Platelets Auto (Bld) [#/Vol] on 10-18-2023 Platelets (Bld) [#/Vol] 239 10 3/uL 150-450 [facility] RBC Auto (Bld) [#/Vol]on RBC (Bld) [#/Vol] 3.38 10 6/uL Low 4.70-6.10 [facility] Serum or plasma albumin/glob ulin mass ratioon 10-18-2023 Albumin/Globulin [Mass ratio] 0.8 {ratio} [facility] Anisocytosis LM Ql (Bld)on 0 10-14-2023 Anisocytosis Ql (Bld) 1+ [facility] Basophils/100 WBC Manual cnt (Bld)on 10-14-2023 Basophils/100 WBC (Bld) 1.0 % 0.2-2.0 [facility] Eosinophils/100 WBC Manual c nt (Bld)on 10-14-2023 Eosinophils/100 WBC (Bld) 2.0 % 0.9-7.0 [facility] Erythrocyte distribution wid th Auto (RBC) [Ratio]on 10-14-2023 Erythrocyte distribution width (RBC) [Ratio] 16.9 % High 11.0-15.0 [facility] Estimated glomerular filtrat ion rate (GFR) non- Americanon 10-14-2023 GFR/1.73 sq M.predicted among non-blacks MDRD (S/P/Bld) [Vol rate/Area] 50 mL/min/{1.73_m2} Low >=60 [facility] Globulin Calc (S) [Mass/Vol] on 10-14-2023 Globulin (S) [Mass/Vol] 3.2 g/dL [facility] Hematocrit Auto (Bld) [Volum e fraction]on 10-14-2023 Hematocrit (Bld) [Volume fraction] 27.2 % Low 42.0-54.0 [facility] Hemoglobin [Mass/volume] in Bloodon 10-14-2023 Hemoglobin (Bld) [Mass/Vol] 9.0 g/dL Low 14.0-18.0 [facility] Leukocytes [#/volume] correc leticia for nucleated erythrocytes in Blood by Automated counon 10-14-2023 WBC corrected for nucl RBC Auto (Bld) [#/Vol] 5.2 10 3/uL 4.0-11.0 [facility] MCH Auto (RBC) [Entitic mass ]on 10-14-2023 MCH (RBC) [Entitic mass] 28.5 pg 25.9-34.0 [facility] MCHC Auto (RBC) [Mass/Vol]on 10-14-2023 MCHC (RBC) [Mass/Vol] 33.1 g/dL 29.9-35.2 [facility] MCV Auto (RBC) [Entitic vol] on 10-14-2023 MCV (RBC) [Entitic vol] 86.1 fL 80.0-94.0 [facility] No Panel Informationon 10-13 0.2 10 3/uL 0.0-0.3 [facility] 4.0 % 0-5 [facility] 2.7 g/dL Low 3.4-5.0 [facility] 0.05 10 3/uL 0.00-0.10 [facility] 370 U/L High 46-116 [facility] 262 U/L High 16-63 [facility] 0.10 10 3/uL 0.00-0.70 [facility] 147 U/L High 15-37 [facility] 22.9 [facility] 0.62 10 3/uL Low 1.20-3.80 [facility] 32.0 mg/dL High 7.0-18.0 [facility] 12.0 % Low 20.5-60.0 [facility] 8.4 mg/dL Low 8.5-10.1 [facility] 0.15 10 3/uL Low 0.30-0.80 [facility] 93 mmol/L Low 98-107 [facility] 3.0 % 1.7-12.0 [facility] 32.6 mmol/L High 21.0-32.0 [facility] 4.05 10 3/uL 1.4-6.5 [facility] 1.40 mg/dL High 0.70-1.30 [facility] >60 >=60 [facility] 141 mg/dL High 74-106 [facility] 4.0 mmol/L 3.5-5.1 [facility] 132 mmol/L Low 136-145 [facility] 1.2 mg/dL High 0.2-1.0 [facility] 5.9 g/dL Low 6.4-8.2 [facility] Platelet mean volume Auto (B ld) [Entitic vol]on 10-14-2023 Platelet mean volume (Bld) [Entitic vol] 9.9 fL 9.5-13.5 [facility] Platelets Auto (Bld) [#/Vol] on 10-14-2023 Platelets (Bld) [#/Vol] 197 10 3/uL 150-450 [facility] RBC Auto (Bld) [#/Vol]on RBC (Bld) [#/Vol] 3.16 10 6/uL Low 4.70-6.10 [facility] Segmented neutrophils/100 WB C Manual cnt (Bld)on 10-14-2023 Segmented neutrophils/100 WBC (Bld) 78.0 % High 43.0-75.0 [facility] Serum or plasma albumin/glob ulin mass ratioon 10-14-2023 Albumin/Globulin [Mass ratio] 0.8 {ratio} [facility] Serum or plasma anion gap de terminationon 10-14-2023 Anion gap [Moles/Vol] 10.4 mmol/L [facility] CNPNon 09-29-2023 CNPN Normal [facility] CASE MANAGEMon 09-28-2023 CASE MANAGEM Normal [facility] CBC panel Auto (Bld)on 09-27 WBC (Bld) [#/Vol] 8.26 10*3/uL Normal 3.70-11.00 [facility] Comment on above: Order Comment: Speci men Type: BLOOD SPECIMENOrdering Facility: [facility] Address: [address] [place] [address] Performed By: #### 5 8410-2 ####[facility] LABIA [id number] [place] [address] [place] CNDSon 09-28-2023 CNDS Normal [facility] Comprehensive metabolic 2000 panelon 09-28-2023 Albumin [Mass/Vol] 3.5 g/dL Low 3.9-4.9 [facility] Comment on above: Order Comment: Speci men Type: BLOOD SPECIMENOrdering Facility: [facility] Address: [address] [place] [address] Performed By: #### 2 4323-8 ####[facility] LABCLIA [id number] [place] [address] [place] ALP [Catalytic activity/Vol] 76 U/L Normal 38-113 [facility] Comment on above: Order Comment: Speci men Type: BLOOD SPECIMENOrdering Facility: [facility] Address: [address] [place] [address] Performed By: #### 2 4323-8 ####[facility] LABCLIA [id number] [place] [address] [place] ALT [Catalytic activity/Vol] 15 U/L Normal 10-54 [facility] Comment on above: Order Comment: Speci men Type: BLOOD SPECIMENOrdering Facility: [facility] Address: [address] [place] [address] Performed By: #### 2 4323-8 ####[facility] LABCLIA [id number] [place] [address] [place] AST [Catalytic activity/Vol] 19 U/L Normal 14-40 [facility] Comment on above: Order Comment: Speci men Type: BLOOD SPECIMENOrdering Facility: [facility] Address: [address] [place] [address] Performed By: #### 2 4323-8 ####[facility] LABCLIA [id number] [place] [address] [place] Bilirubin [Mass/Vol] 0.9 mg/dL Normal 0.2-1.3 [facility] Comment on above: Order Comment: Speci men Type: BLOOD SPECIMENOrdering Facility: [facility] Address: [address] [place] [address] Performed By: #### 2 4323-8 ####[facility] LABCLIA [id number] [place] [address] [place] Calcium [Mass/Vol] 9.1 mg/dL Normal 8.5-10.2 [facility] Comment on above: Order Comment: Speci men Type: BLOOD SPECIMENOrdering Facility: [facility] Address: [address] [place] [address] Performed By: #### 2 4323-8 ####[facility] LABCLIA [id number] [place] [address] [place] Chloride [Moles/Vol] 85 mmol/L Low 98-107 [facility] Comment on above: Order Comment: Speci men Type: BLOOD SPECIMENOrdering Facility: [facility] Address: [address] [place] [address] Performed By: #### 2 4323-8 ####[facility] LABCLIA [id number] [place] [address] [place] CO2 [Moles/Vol] 36 mmol/L High 22-30 [facility] Comment on above: Order Comment: Speci men Type: BLOOD SPECIMENOrdering Facility: [facility] Address: [address] [place] [address] Performed By: #### 2 4323-8 ####[facility] LABCLIA [id number] [address] [place] Creatinine [Mass/Vol] 1.63 mg/dL High 0.73-1.22 [facility] Comment on above: Order Comment: Speci men Type: BLOOD SPECIMENOrdering Facility: [facility] Address: [address] [place] [address] Performed By: #### 2 4323-8 ####[facility] LABIA [id number] [address] Creatinine and Glomerular filtration rate.predicted panel (S/P/Bld) 45 mL/min/1.73m??? Low >=60 [facility] Comment on above: Order Comment: Speci men Type: BLOOD SPECIMENOrdering Facility: [facility] Address: [address] [place] [address] Result Comment: Aileen mated Glomerular Filtration Rate [...] reflect actual GFR. Performed By: #### 2 4323-8 ####[facility] LABCLIA [id number] [place] [address] [place] Glucose [Mass/Vol] 142 mg/dL High 74-99 [facility] Comment on above: Order Comment: Speci men Type: BLOOD SPECIMENOrdering Facility: [facility] Address: [address] [place] [address] Result Comment: The [place] [employer] (ADA) provides guidance for cutoff values for fasting glucose and random glucose. The ADA defines fasting as no caloric intake for at least 8 hours. Fasting plasma glucose results between 100 to 125 mg/dL indicate increased risk for diabetes (prediabetes).Fasting plasma glucose results greater than or equal to 126 mg/dL meet the criteria for diagnosis of diabetes. In the absence of unequivocal hyperglycemia, results should be confirmed by repeat testing. In a patient with classic symptoms of hyperglycemia or hyperglycemic crisis, random plasma glucose results greater than or equal to 200 mg/dL meet the criteria for diagnosis of diabetes.Reference: Standards of Medical Care in Diabetes 2016, [place] [employer]. Diabetes Care. 2016.39(Suppl 1). Performed By: #### 2 4323-8 ####[facility] LABCLIA [id number] [place] [address] [place] Potassium [Moles/Vol] 3.9 mmol/L Normal 3.7-5.1 [facility] Comment on above: Order Comment: Speci men Type: BLOOD SPECIMENOrdering Facility: [facility] Address: [address] [place] [address] Performed By: #### 2 4323-8 ####[facility] LABCLIA [id number] [place] [address] [place] Sodium [Moles/Vol] 130 mmol/L Low 136-144 [facility] Comment on above: Order Comment: Speci men Type: BLOOD SPECIMENOrdering Facility: [facility] Address: [address] [place] [address] Performed By: #### 2 4323-8 ####[facility] LABCLIA [id number] [place] [address] [place] Urea nitrogen [Mass/Vol] 36 mg/dL High 9-24 [facility] Comment on above: Order Comment: Speci men Type: BLOOD SPECIMENOrdering Facility: [facility] Address: [address] [place] [address] Performed By: #### 2 4323-8 ####[facility] LABCLIA [id number] [place] [address] [place] Erythrocyte distribution wid th [Ratio] by Automated counton 09-28-2023 Erythrocyte distribution width (RBC) [Ratio] 16.0 % High 11.5-15.0 [facility] Comment on above: Order Comment: Speci men Type: BLOOD SPECIMENOrdering Facility: [facility] Address: [address] [place] [address] Performed By: #### 5 8410-2 ####[facility] LABCLIA [id number] [place] [address] [place] Erythrocytes [#/volume] in B lood by Automated counton 09-28-2023 RBC (Bld) [#/Vol] 3.79 10*6/uL Low 4.20-6.00 [facility] Comment on above: Order Comment: Speci men Type: BLOOD SPECIMENOrdering Facility: [facility] Address: [address] [place] [address] Performed By: #### 5 8410-2 ####[facility] LABCLIA [id number] [place] [address] [place] Hematocrit [Volume Fraction] of Blood by Automated counton 09-28-2023 Hematocrit (Bld) [Volume fraction] 31.9 % Low 39.0-51.0 [facility] Comment on above: Order Comment: Speci men Type: BLOOD SPECIMENOrdering Facility: [facility] Address: [address] [place] [address] Performed By: #### 5 8410-2 ####[facility] LABCLIA [id number] [place] [address] [place] Hemoglobin [Mass/volume] in Bloodon 09-28-2023 Hemoglobin (Bld) [Mass/Vol] 11.1 g/dL Low 13.0-17.0 [facility] Comment on above: Order Comment: Speci men Type: BLOOD SPECIMENOrdering Facility: [facility] Address: [address] [place] [address] Performed By: #### 5 8410-2 ####[facility] LABIA [id number] [place] [address] [place] Leukocytes [#/volume] correc leticia for nucleated erythrocytes in Blood by Automated counon 09-28-2023 WBC corrected for nucl RBC Auto (Bld) [#/Vol] 8.26 k/uL 3.70-11.00 [facility] MCH [Entitic mass] by Automa leticia counton 09-28-2023 MCH (RBC) [Entitic mass] 29.3 pg 26.0-34.0 [facility] Comment on above: Order Comment: Speci men Type: BLOOD SPECIMENOrdering Facility: [facility] Address: [address] [place] [address] Performed By: #### 5 8410-2 ####[facility] LABIA [id number] [place] [address] [place] MCHC [Mass/volume] by Automa leticia counton 09-28-2023 MCHC (RBC) [Mass/Vol] 34.8 g/dL 30.5-36.0 [facility] Comment on above: Order Comment: Speci men Type: BLOOD SPECIMENOrdering Facility: [facility] Address: [address] [place] [address] Performed By: #### 5 8410-2 ####[facility] LABIA [id number] [place] [address] [place] MCV [Entitic volume] by Auto mated counton 09-28-2023 MCV (RBC) [Entitic vol] 84.2 fL 80.0-100.0 [facility] Comment on above: Order Comment: Speci men Type: BLOOD SPECIMENOrdering Facility: [facility] Address: [address] [place] [address] Performed By: #### 5 8410-2 ####[facility] LABCLIA [id number] [place] [address] [place] NURSING PROGon 09-28-2023 NURSING PROG Normal [facility] No Panel Informationon 09-27 15 U/L 10-54 [facility] 3.5 g/dL Low 3.9-4.9 [facility] 19 U/L 14-40 [facility] 0.9 mg/dL 0.2-1.3 [facility] 36 mmol/L High 22-30 [facility] 85 mmol/L Low 98-107 [facility] 1.63 mg/dL High 0.73-1.22 [facility] 142 mg/dL High 74-99 [facility] 3.9 mmol/L 3.7-5.1 [facility] 130 mmol/L Low 136-144 [facility] 36 mg/dL High 9-24 [facility] 76 U/L 38-113 [facility] 9.1 mg/dL 8.5-10.2 [facility] 45 mL/min/1.73m??? Low >=60 [facility] Nucleated erythrocytes [#/vo lume] in Blood by Automated counton 09-28-2023 Nucleated RBC (Bld) [#/Vol] 10*3/uL <0.01 [facility] Comment on above: Order Comment: Speci men Type: BLOOD SPECIMENOrdering Facility: [facility] Address: [address] [place] [address] Performed By: #### 5 8410-2 ####[facility] LABCLIA [id number] [place] [address] [place] Platelet mean volume [Entiti c volume] in Blood by Automated counton 09-28-2023 Platelet mean volume (Bld) [Entitic vol] 10.0 fL 9.0-12.7 [facility] Comment on above: Order Comment: Speci men Type: BLOOD SPECIMENOrdering Facility: [facility] Address: [address] [place] [address] [place] [address] Performed By: #### 5 8410-2 ####[facility] LABCLIA [id number] [facility] [place] [id number] [place] Platelets [#/volume] in Bloo d by Automated counton 09-28-2023 Platelets (Bld) [#/Vol] 313 10*3/uL 150-400 [facility] Comment on above: Order Comment: Speci men Type: BLOOD SPECIMENOrdering Facility: [facility] Address: [address] [place], [place] [address] [address] Performed By: #### 5 8410-2 ####[facility] LABCLIA [id number] [place] [address] [place] Protein [Mass/volume] in Ser um or Plasmaon 09-28-2023 Protein [Mass/Vol] 6.0 g/dL Low 6.3-8.0 [facility] Comment on above: Order Comment: Speci men Type: BLOOD SPECIMENOrdering Facility: [facility] Address: [address] [place] [address] Performed By: #### 2 4323-8 ####[facility] LABCLIA [id number] [place] [id number] [place] Serum or plasma anion gap de terminationon 09-28-2023 Anion gap [Moles/Vol] 9 mmol/L 8-15 [facility] Comment on above: Order Comment: Speci men Type: BLOOD SPECIMENOrdering Facility: [facility] Address: [address] [place] [address] Performed By: #### 2 4323-8 ####[facility] LABCLIA [id number] [place] [id number] [place] THERAPY NTon 09-28-2023 THERAPY NT Normal [facility] XR CHEST 1V FRONTAL PORTon 0 7-17-2024 XR CHEST 1V FRONTAL PORT Normal [facility] ALLIED HEALTHon 09-27-2023 ALLIED HEALTH Normal [facility] CASE MANAGEMon 09-27-2023 CASE MANAGEM Normal [facility] CASE MANAGEM Normal [facility] CBC panel Auto (Bld)on 09-26 WBC (Bld) [#/Vol] 10.08 10*3/uL Normal 3.70-11.00 [facility] Comment on above: Order Comment: Speci men Type: BLOOD SPECIMENOrdering Facility: [facility] Address: [address] [place] [address] Performed By: #### 5 8410-2 ####[facility] LABCLIA [id number] [place] [address] [place] CONSULT PROGon 09-27-2023 CONSULT PROG Normal [facility] Comprehensive metabolic 2000 panelon 09-27-2023 Albumin [Mass/Vol] 3.4 g/dL Low 3.9-4.9 [facility] Comment on above: Order Comment: Speci men Type: BLOOD SPECIMENOrdering Facility: [facility] Address: [address] [place] [address] Performed By: #### 2 4323-8 ####[facility] LABCLIA [id number] [place] [address] [place] ALP [Catalytic activity/Vol] 70 U/L Normal 38-113 [facility] Comment on above: Order Comment: Speci men Type: BLOOD SPECIMENOrdering Facility: [facility] Address: [address] [place] [address] Performed By: #### 2 4323-8 ####[facility] LABCLIA [id number] [place] [address] [place] ALT [Catalytic activity/Vol] 18 U/L Normal 10-54 [facility] Comment on above: Order Comment: Speci men Type: BLOOD SPECIMENOrdering Facility: [facility] Address: [address] [place] [address] Performed By: #### 2 4323-8 ####[facility] LABCLIA [id number] [place] [address] [place] AST [Catalytic activity/Vol] 15 U/L Normal 14-40 [facility] Comment on above: Order Comment: Speci men Type: BLOOD SPECIMENOrdering Facility: [facility] Address: [address] [place] [address] Performed By: #### 2 4323-8 ####[facility] LABCLIA [id number] [place] [address] [place] Bilirubin [Mass/Vol] 0.8 mg/dL Normal 0.2-1.3 [facility] Comment on above: Order Comment: Speci men Type: BLOOD SPECIMENOrdering Facility: [facility] Address: [address] [place] [address] Performed By: #### 2 4323-8 ####[facility] LABCLIA [id number] [place] [address] [place] Calcium [Mass/Vol] 9.2 mg/dL Normal 8.5-10.2 [facility] Comment on above: Order Comment: Speci men Type: BLOOD SPECIMENOrdering Facility: [facility] Address: [address] [place] [address] Performed By: #### 2 4323-8 ####[facility] LABCLIA [id number] [place] [address] [place] Chloride [Moles/Vol] 86 mmol/L Low 98-107 [facility] Comment on above: Order Comment: Speci men Type: BLOOD SPECIMENOrdering Facility: [facility] Address: [address] [place] [address] Performed By: #### 2 4323-8 ####[facility] LABCLIA [id number] [place] [address] [place] CO2 [Moles/Vol] 37 mmol/L High 22-30 [facility] Comment on above: Order Comment: Speci men Type: BLOOD SPECIMENOrdering Facility: [facility] Address: [address] [place] [address] Performed By: #### 2 4323-8 ####[facility] LABCLIA [id number] [facility] [place] [address] [place] Creatinine [Mass/Vol] 1.70 mg/dL High 0.73-1.22 [facility] Comment on above: Order Comment: Speci men Type: BLOOD SPECIMENOrdering Facility: [facility] Address: [address] [place] [address] Performed By: #### 2 4323-8 ####[facility] LABCLIA [id number] [facility] [place] [address] [place] Creatinine and Glomerular filtration rate.predicted panel (S/P/Bld) 43 mL/min/1.73m??? Low >=60 [facility] Comment on above: Order Comment: Speci men Type: BLOOD SPECIMENOrdering Facility: [facility] Address: [address] [place] [address] Result Comment: Aileen mated Glomerular Filtration Rate [...] reflect actual GFR. Performed By: #### 2 4323-8 ####[facility] LABCLIA [id number] [facility] [place] [address] [place] Glucose [Mass/Vol] 88 mg/dL Normal 74-99 [facility] Comment on above: Order Comment: Speci men Type: BLOOD SPECIMENOrdering Facility: [facility] Address: [address] [place] [address] Result Comment: The [place] [employer] (ADA) provides guidance for cutoff values for fasting glucose and random glucose. The ADA defines fasting as no caloric intake for at least 8 hours. Fasting plasma glucose results between 100 to 125 mg/dL indicate increased risk for diabetes (prediabetes).Fasting plasma glucose results greater than or equal to 126 mg/dL meet the criteria for diagnosis of diabetes. In the absence of unequivocal hyperglycemia, results should be confirmed by repeat testing. In a patient with classic symptoms of hyperglycemia or hyperglycemic crisis, random plasma glucose results greater than or equal to 200 mg/dL meet the criteria for diagnosis of diabetes.Reference: Standards of Medical Care in Diabetes 2016, [place] [employer]. Diabetes Care. 2016.39(Suppl 1). Performed By: #### 2 4323-8 ####[facility] LABCLIA [id number] [place] [address] [place] Potassium [Moles/Vol] 3.9 mmol/L Normal 3.7-5.1 [facility] Comment on above: Order Comment: Speci men Type: BLOOD SPECIMENOrdering Facility: [facility] Address: [address] [place] [address] Performed By: #### 2 4323-8 ####[facility] LABCLIA [id number] [place] [address] [place] Sodium [Moles/Vol] 135 mmol/L Low 136-144 [facility] Comment on above: Order Comment: Speci men Type: BLOOD SPECIMENOrdering Facility: [facility] Address: [address] [place] [address] Performed By: #### 2 4323-8 ####[facility] LABCLIA [id number] [place] [address] [place] Urea nitrogen [Mass/Vol] 38 mg/dL High 9-24 [facility] Comment on above: Order Comment: Speci men Type: BLOOD SPECIMENOrdering Facility: [facility] Address: [address] [place] [address] Performed By: #### 2 4323-8 ####[facility] LABCLIA [id number] [place] [id number] [place] Erythrocyte distribution wid th [Ratio] by Automated counton 09-27-2023 Erythrocyte distribution width (RBC) [Ratio] 16.1 % High 11.5-15.0 [facility] Comment on above: Order Comment: Speci men Type: BLOOD SPECIMENOrdering Facility: [facility] Address: [address] [place] [address] Performed By: #### 5 8410-2 ####[facility] LABIA [id number] [place] [address] [place] Erythrocytes [#/volume] in B lood by Automated counton 09-27-2023 RBC (Bld) [#/Vol] 3.76 10*6/uL Low 4.20-6.00 [facility] Comment on above: Order Comment: Speci men Type: BLOOD SPECIMENOrdering Facility: [facility] Address: [address] [place] [address] Performed By: #### 5 8410-2 ####[facility] LABIA [id number] [place] [address] [place] Hematocrit [Volume Fraction] of Blood by Automated counton 09-27-2023 Hematocrit (Bld) [Volume fraction] 31.9 % Low 39.0-51.0 [facility] Comment on above: Order Comment: Speci men Type: BLOOD SPECIMENOrdering Facility: [facility] Address: [address] [place] [address] Performed By: #### 5 8410-2 ####[facility] LABIA [id number] [place] [address] [place] Hemoglobin [Mass/volume] in Bloodon 09-27-2023 Hemoglobin (Bld) [Mass/Vol] 11.0 g/dL Low 13.0-17.0 [facility] Comment on above: Order Comment: Speci men Type: BLOOD SPECIMENOrdering Facility: [facility] Address: [address] [place] [address] Performed By: #### 5 8410-2 ####[facility] LABCLIA [id number] [place] [address] [place] Leukocytes [#/volume] correc leticia for nucleated erythrocytes in Blood by Automated counon 09-27-2023 WBC corrected for nucl RBC Auto (Bld) [#/Vol] 10.08 k/uL 3.70-11.00 [facility] MCH [Entitic mass] by Automa leticia counton 09-27-2023 MCH (RBC) [Entitic mass] 29.3 pg 26.0-34.0 [facility] Comment on above: Order Comment: Speci men Type: BLOOD SPECIMENOrdering Facility: [facility] Address: [address] [place] [address] Performed By: #### 5 8410-2 ####[facility] LABCLIA [id number] [address] [place] MCHC [Mass/volume] by Automa leticia counton 09-27-2023 MCHC (RBC) [Mass/Vol] 34.5 g/dL 30.5-36.0 [facility] Comment on above: Order Comment: Speci men Type: BLOOD SPECIMENOrdering Facility: [facility] Address: [address] [place] [address] Performed By: #### 5 8410-2 ####[facility] LABIA [id number] [place] [address] [place] MCV [Entitic volume] by Auto mated counton 09-27-2023 MCV (RBC) [Entitic vol] 84.8 fL 80.0-100.0 [facility] Comment on above: Order Comment: Speci men Type: BLOOD SPECIMENOrdering Facility: [facility] Address: [address] [place] [address] Performed By: #### 5 8410-2 ####[facility] LABCLIA [id number] [place] [address] [place] No Panel Informationon 09-26 3.8 mmol/L 3.7-5.1 [facility] 18 U/L 10-54 [facility] 3.4 g/dL Low 3.9-4.9 [facility] 15 U/L 14-40 [facility] 0.8 mg/dL 0.2-1.3 [facility] 37 mmol/L High 22-30 [facility] 86 mmol/L Low 98-107 [facility] 1.70 mg/dL High 0.73-1.22 [facility] 88 mg/dL 74-99 [facility] 135 mmol/L Low 136-144 [facility] 38 mg/dL High 9-24 [facility] 70 U/L 38-113 [facility] 9.2 mg/dL 8.5-10.2 [facility] 43 mL/min/1.73m??? Low >=60 [facility] Nucleated erythrocytes [#/vo lume] in Blood by Automated counton 09-27-2023 Nucleated RBC (Bld) [#/Vol] 10*3/uL <0.01 [facility] Comment on above: Order Comment: Speci men Type: BLOOD SPECIMENOrdering Facility: [facility] Address: [address] [place] [address] Performed By: #### 5 8410-2 ####[facility] LABCLIA [id number] [facility] [place] [address] [place] POTASSIUMon 09-27-2023 Potassium [Moles/Vol] 3.8 mmol/L Normal 3.7-5.1 [facility] Comment on above: Order Comment: Speci men Type: BLOOD SPECIMENOrdering Facility: [facility] Address: [address] [place] [address] Performed By: #### K 1 ####[facility] LABCLIA [id number] [facility] [place] [address] [place] Platelet mean volume [Entiti c volume] in Blood by Automated counton 09-27-2023 Platelet mean volume (Bld) [Entitic vol] 10.0 fL 9.0-12.7 [facility] Comment on above: Order Comment: Speci men Type: BLOOD SPECIMENOrdering Facility: [facility] Address: [address] [place] [address] Performed By: #### 5 8410-2 ####[facility] LABCLIA [id number] [place] [address] [place] Platelets [#/volume] in Bloo d by Automated counton 09-27-2023 Platelets (Bld) [#/Vol] 274 10*3/uL 150-400 [facility] Comment on above: Order Comment: Speci men Type: BLOOD SPECIMENOrdering Facility: [facility] Address: [address] [place] [address] Performed By: #### 5 8410-2 ####[facility] LABCLIA [id number] [place] [address] [place] Protein [Mass/volume] in Ser um or Plasmaon 09-27-2023 Protein [Mass/Vol] 5.8 g/dL Low 6.3-8.0 [facility] Comment on above: Order Comment: Speci men Type: BLOOD SPECIMENOrdering Facility: [facility] Address: [address] [place] [address] Performed By: #### 2 4323-8 ####[facility] LABCLIA [id number] [place] [id number] [place] Serum or plasma anion gap de terminationon 09-27-2023 Anion gap [Moles/Vol] 12 mmol/L 8-15 [facility] Comment on above: Order Comment: Speci men Type: BLOOD SPECIMENOrdering Facility: [facility] Address: [address] [place] [address] Performed By: #### 2 4323-8 ####[facility] LABCLIA [id number] [place] [id number] [place] THERAPY NTon 09-27-2023 THERAPY NT Normal [facility] ALLIED HEALTHon 09-26-2023 ALLIED HEALTH Normal [facility] CASE MANAGEMon 09-26-2023 CASE MANAGEM Normal [facility] CBC panel Auto (Bld)on 09-25 WBC (Bld) [#/Vol] 8.94 10*3/uL Normal 3.70-11.00 [facility] Comment on above: Order Comment: Speci men Type: BLOOD SPECIMENOrdering Facility: [facility] Address: [address] [place] [address] Performed By: #### 5 8410-2 ####[facility] LABIA [id number] [place] [address] [place] CONSULT PROGon 09-26-2023 CONSULT PROG Normal [facility] CONSULT PROG Normal [facility] Comprehensive metabolic 2000 panelon 09-26-2023 Albumin [Mass/Vol] 3.4 g/dL Low 3.9-4.9 [facility] Comment on above: Order Comment: Speci men Type: BLOOD SPECIMENOrdering Facility: [facility] Address: [address] [place] [address] Performed By: #### 2 4323-8 ####[facility] LABIA [id number] [place] [address] [place] ALP [Catalytic activity/Vol] 70 U/L Normal 38-113 [facility] Comment on above: Order Comment: Speci men Type: BLOOD SPECIMENOrdering Facility: [facility] Address: [address] [place] [address] Performed By: #### 2 4323-8 ####[facility] LABIA [id number] [place] [address] [place] ALT [Catalytic activity/Vol] 18 U/L Normal 10-54 [facility] Comment on above: Order Comment: Speci men Type: BLOOD SPECIMENOrdering Facility: [facility] Address: [address] [place] [address] Performed By: #### 2 4323-8 ####[facility] LABCLIA [id number] [place] [address] [place] AST [Catalytic activity/Vol] 13 U/L Low 14-40 [facility] Comment on above: Order Comment: Speci men Type: BLOOD SPECIMENOrdering Facility: [facility] Address: [address] [place] [address] Performed By: #### 2 4323-8 ####[facility] LABCLIA [id number] [place] [address] [place] Bilirubin [Mass/Vol] 0.8 mg/dL Normal 0.2-1.3 [facility] Comment on above: Order Comment: Speci men Type: BLOOD SPECIMENOrdering Facility: [facility] Address: [address] [place] [address] Performed By: #### 2 4323-8 ####[facility] LABCLIA [id number] [place] [address] [place] Calcium [Mass/Vol] 9.0 mg/dL Normal 8.5-10.2 [facility] Comment on above: Order Comment: Speci men Type: BLOOD SPECIMENOrdering Facility: [facility] [facility] Address: [address] [place] [address] Performed By: #### 2 4323-8 ####[facility] LABCLIA [id number] [place] [address] [place] Chloride [Moles/Vol] 84 mmol/L Low 98-107 [facility] Comment on above: Order Comment: Speci men Type: BLOOD SPECIMENOrdering Facility: [facility] Address: [address] [place] [address] Performed By: #### 2 4323-8 ####[facility] LABCLIA [id number] [place] [address] [place] CO2 [Moles/Vol] 38 mmol/L High 22-30 [facility] Comment on above: Order Comment: Speci men Type: BLOOD SPECIMENOrdering Facility: [facility] Address: [address] [place] [address] Performed By: #### 2 4323-8 ####[facility] LABCLIA [id number] [place] [address] [place] Creatinine [Mass/Vol] 1.49 mg/dL High 0.73-1.22 [facility] Comment on above: Order Comment: Speci men Type: BLOOD SPECIMENOrdering Facility: [facility] Address: [address] [place] [address] Performed By: #### 2 4323-8 ####[facility] LABCLIA [id number] [facility] [place] [address] [place] Creatinine and Glomerular filtration rate.predicted panel (S/P/Bld) 50 mL/min/1.73m??? Low >=60 [facility] Comment on above: Order Comment: Speci men Type: BLOOD SPECIMENOrdering Facility: [facility] Address: [address] [place] [address] Result Comment: Aileen mated Glomerular Filtration Rate [...] reflect actual GFR. Performed By: #### 2 4323-8 ####[facility] LABCLIA [id number] [facility] [place] [address] [place] Glucose [Mass/Vol] 147 mg/dL High 74-99 [facility] Comment on above: Order Comment: Speci men Type: BLOOD SPECIMENOrdering Facility: [facility] Address: [address] [place] [address] Result Comment: The [place] [employer] (ADA) provides guidance for cutoff values for fasting glucose and random glucose. The ADA defines fasting as no caloric intake for at least 8 hours. Fasting plasma glucose results between 100 to 125 mg/dL indicate increased risk for diabetes (prediabetes).Fasting plasma glucose results greater than or equal to 126 mg/dL meet the criteria for diagnosis of diabetes. In the absence of unequivocal hyperglycemia, results should be confirmed by repeat testing. In a patient with classic symptoms of hyperglycemia or hyperglycemic crisis, random plasma glucose results greater than or equal to 200 mg/dL meet the criteria for diagnosis of diabetes.Reference: Standards of Medical Care in Diabetes 2016, [place] [employer]. Diabetes Care. 2016.39(Suppl 1). Performed By: #### 2 4323-8 ####[facility] LABCLIA [id number] [place] [address] [place] Potassium [Moles/Vol] 3.7 mmol/L Normal 3.7-5.1 [facility] Comment on above: Order Comment: Speci men Type: BLOOD SPECIMENOrdering Facility: [facility] Address: [address] [place] [address] Performed By: #### 2 4323-8 ####[facility] LABIA [id number] [place] [address] [place] Sodium [Moles/Vol] 133 mmol/L Low 136-144 [facility] Comment on above: Order Comment: Speci men Type: BLOOD SPECIMENOrdering Facility: [facility] Address: [address] [place] [address] Performed By: #### 2 4323-8 ####[facility] LABCLIA [id number] [place] [address] [place] Urea nitrogen [Mass/Vol] 37 mg/dL High 9-24 [facility] Comment on above: Order Comment: Speci men Type: BLOOD SPECIMENOrdering Facility: [facility] Address: [address] [place] [address] Performed By: #### 2 4323-8 ####[facility] LABCLIA [id number] [place] [id number] [place] Erythrocyte distribution wid th [Ratio] by Automated counton 09-26-2023 Erythrocyte distribution width (RBC) [Ratio] 15.6 % High 11.5-15.0 [facility] Comment on above: Order Comment: Speci men Type: BLOOD SPECIMENOrdering Facility: [facility] Address: [address] [place] [address] Performed By: #### 5 8410-2 ####[facility] LABIA [id number] [place] [address] [place] Erythrocytes [#/volume] in B lood by Automated counton 09-26-2023 RBC (Bld) [#/Vol] 3.70 10*6/uL Low 4.20-6.00 [facility] Comment on above: Order Comment: Speci men Type: BLOOD SPECIMENOrdering Facility: [facility] Address: [address] [place] [address] Performed By: #### 5 8410-2 ####[facility] LABCLIA [id number] [place] [address] [place] Hematocrit [Volume Fraction] of Blood by Automated counton 09-26-2023 Hematocrit (Bld) [Volume fraction] 31.1 % Low 39.0-51.0 [facility] Comment on above: Order Comment: Speci men Type: BLOOD SPECIMENOrdering Facility: [facility] Address: [address] [place] [address] Performed By: #### 5 8410-2 ####[facility] LABCLIA [id number] [place] [id number] [place] Hemoglobin [Mass/volume] in Bloodon 09-26-2023 Hemoglobin (Bld) [Mass/Vol] 10.8 g/dL Low 13.0-17.0 [facility] Comment on above: Order Comment: Speci men Type: BLOOD SPECIMENOrdering Facility: [facility] Address: [address] [place] [address] Performed By: #### 5 8410-2 ####[facility] LABCLIA [id number] [place] [address] [place] Leukocytes [#/volume] correc leticia for nucleated erythrocytes in Blood by Automated counon 09-26-2023 WBC corrected for nucl RBC Auto (Bld) [#/Vol] 8.94 k/uL 3.70-11.00 [facility] MCH [Entitic mass] by Automa leticia counton 09-26-2023 MCH (RBC) [Entitic mass] 29.2 pg 26.0-34.0 [facility] Comment on above: Order Comment: Speci men Type: BLOOD SPECIMENOrdering Facility: [facility] Address: [address] [place] [address] Performed By: #### 5 8410-2 ####[facility] LABIA [id number] [address] [place] MCHC [Mass/volume] by Automa leticia counton 09-26-2023 MCHC (RBC) [Mass/Vol] 34.7 g/dL 30.5-36.0 [facility] Comment on above: Order Comment: Speci men Type: BLOOD SPECIMENOrdering Facility: [facility] Address: [address] [place] [address] Performed By: #### 5 8410-2 ####[facility] LABIA [id number] [place] [address] [place] MCV [Entitic volume] by Auto mated counton 09-26-2023 MCV (RBC) [Entitic vol] 84.1 fL 80.0-100.0 [facility] Comment on above: Order Comment: Speci men Type: BLOOD SPECIMENOrdering Facility: [facility] Address: [address] [place] [address] Performed By: #### 5 8410-2 ####[facility] LABCLIA [id number] [place] [address] [place] NUTRITIONon 09-26-2023 NUTRITION Normal [facility] No Panel Informationon 09-25 4.0 mmol/L 3.7-5.1 [facility] 18 U/L 10-54 [facility] 3.4 g/dL Low 3.9-4.9 [facility] 13 U/L Low 14-40 [facility] 0.8 mg/dL 0.2-1.3 [facility] 38 mmol/L High 22-30 [facility] 84 mmol/L Low 98-107 [facility] 1.49 mg/dL High 0.73-1.22 [facility] 147 mg/dL High 74-99 [facility] 133 mmol/L Low 136-144 [facility] 37 mg/dL High 9-24 [facility] 70 U/L 38-113 [facility] 9.0 mg/dL 8.5-10.2 [facility] 50 mL/min/1.73m??? Low >=60 [facility] Nucleated erythrocytes [#/vo lume] in Blood by Automated counton 09-26-2023 Nucleated RBC (Bld) [#/Vol] 10*3/uL <0.01 [facility] Comment on above: Order Comment: Speci men Type: BLOOD SPECIMENOrdering Facility: [facility] Address: [address] [place] [address] Performed By: #### 5 8410-2 ####[facility] LABCLIA [id number] [place] [address] [place] POTASSIUMon 09-26-2023 Potassium [Moles/Vol] 4.0 mmol/L Normal 3.7-5.1 [facility] Comment on above: Order Comment: Speci men Type: BLOOD SPECIMENOrdering Facility: [facility] Address: [address] [place] [address] Performed By: #### K 1 ####[facility] LABCLIA [id number] [facility] [place] [address] [place] Platelet mean volume [Entiti c volume] in Blood by Automated counton 09-26-2023 Platelet mean volume (Bld) [Entitic vol] 10.5 fL 9.0-12.7 [facility] Comment on above: Order Comment: Speci men Type: BLOOD SPECIMENOrdering Facility: [facility] Address: [address] [place] [address] Performed By: #### 5 8410-2 ####[facility] LABCLIA [id number] [place] [address] [place] Platelets [#/volume] in Bloo d by Automated counton 09-26-2023 Platelets (Bld) [#/Vol] 267 10*3/uL 150-400 [facility] Comment on above: Order Comment: Speci men Type: BLOOD SPECIMENOrdering Facility: [facility] Address: [address] [place] [address] Performed By: #### 5 8410-2 ####[facility] LABCLIA [id number] [place] [address] [place] Protein [Mass/volume] in Ser um or Plasmaon 09-26-2023 Protein [Mass/Vol] 5.6 g/dL Low 6.3-8.0 [facility] Comment on above: Order Comment: Speci men Type: BLOOD SPECIMENOrdering Facility: [facility] Address: [address] [place] [address] Performed By: #### 2 4323-8 ####[facility] LABCLIA [id number] [place] [id number] [place] Serum or plasma anion gap de terminationon 09-26-2023 Anion gap [Moles/Vol] 11 mmol/L 10-26 [facility] Comment on above: Order Comment: Speci men Type: BLOOD SPECIMENOrdering Facility: [facility] Address: [address] [place] [address] Performed By: #### 2 4323-8 ####[facility] LABCLIA [id number] [place] [id number] [place] THERAPY NTon 09-26-2023 THERAPY NT Normal [facility] THERAPY NT Normal [facility] XR CHEST 1V FRONTAL PORTon 0 09-26-2023 XR CHEST 1V FRONTAL PORT Normal [facility] CBC panel Auto (Bld)on 09-24 Erythrocyte distribution width (RBC) [Ratio] 15.5 % High 11.5-15.0 [facility] Comment on above: Order Comment: Speci men Type: BLOOD SPECIMENOrdering Facility: [facility] Address: [address] [place] [address] Performed By: #### 5 8410-2 ####[facility] LABCLIA [id number] [place] [address] [place] Hematocrit (Bld) [Volume fraction] 29.2 % Low 39.0-51.0 [facility] Comment on above: Order Comment: Speci men Type: BLOOD SPECIMENOrdering Facility: [facility] Address: [address] [place] [address] Performed By: #### 5 8410-2 ####[facility] LABCLIA [id number] [place] [address] [place] Hemoglobin (Bld) [Mass/Vol] 10.1 g/dL Low 13.0-17.0 [facility] Comment on above: Order Comment: Speci men Type: BLOOD SPECIMENOrdering Facility: [facility] Address: [address] [place] [address] Performed By: #### 5 8410-2 ####[facility] LABCLIA [id number] [place] [address] [place] MCH (RBC) [Entitic mass] 29.0 pg Normal 26.0-34.0 [facility] Comment on above: Order Comment: Speci men Type: BLOOD SPECIMENOrdering Facility: [facility] Address: [address] [place] [address] Performed By: #### 5 8410-2 ####[facility] LABCLIA [id number] [place] [address] [place] MCHC (RBC) [Mass/Vol] 34.6 g/dL Normal 30.5-36.0 [facility] Comment on above: Order Comment: Speci men Type: BLOOD SPECIMENOrdering Facility: [facility] Address: [address] [place] [address] Performed By: #### 5 8410-2 ####[facility] LABCLIA [id number] [place] [address] [place] MCV (RBC) [Entitic vol] 83.9 fL Normal 80.0-100.0 [facility] Comment on above: Order Comment: Speci men Type: BLOOD SPECIMENOrdering Facility: [facility] Address: [address] [place] [address] Performed By: #### 5 8410-2 ####[facility] LABIA [id number] [place] [address] [place] Nucleated RBC (Bld) [#/Vol] 10*3/uL Normal <0.01 [facility] Comment on above: Order Comment: Speci men Type: BLOOD SPECIMENOrdering Facility: [facility] Address: [address] [place] [address] Performed By: #### 5 8410-2 ####[facility] LABIA [id number] [place] [address] [place] Platelet mean volume (Bld) [Entitic vol] 10.7 fL Normal 9.0-12.7 [facility] Comment on above: Order Comment: Speci men Type: BLOOD SPECIMENOrdering Facility: [facility] Address: [address] [place] [address] Performed By: #### 5 8410-2 ####[facility] LABIA [id number] [place] [address] [place] Platelets (Bld) [#/Vol] 205 10*3/uL Normal 150-400 [facility] Comment on above: Order Comment: Speci men Type: BLOOD SPECIMENOrdering Facility: [facility] Address: [address] [place] [address] Performed By: #### 5 8410-2 ####[facility] LABCLIA [id number] [address] [address] [place] RBC (Bld) [#/Vol] 3.48 10*6/uL Low 4.20-6.00 [facility] Comment on above: Order Comment: Speci men Type: BLOOD SPECIMENOrdering Facility: [facility] Address: [address] [place] [address] Performed By: #### 5 8410-2 ####[facility] LABCLIA [id number] [place] [address] [place] WBC (Bld) [#/Vol] 8.23 10*3/uL Normal 3.70-11.00 [facility] Comment on above: Order Comment: Speci men Type: BLOOD SPECIMENOrdering Facility: [facility] Address: [address] [place] [address] Performed By: #### 5 8410-2 ####[facility] LABCLIA [id number] [place] [address] [place] CONSULT PROGon 09-25-2023 CONSULT PROG Normal [facility] Comprehensive metabolic 2000 panelon 09-25-2023 Albumin [Mass/Vol] 3.1 g/dL Low 3.9-4.9 [facility] Comment on above: Order Comment: Speci men Type: BLOOD SPECIMENOrdering Facility: [facility] Address: [address] [place] [address] Performed By: #### 2 4323-8 ####[facility] LABCLIA [id number] [place] [address] [place] ALP [Catalytic activity/Vol] 67 U/L Normal 38-113 [facility] Comment on above: Order Comment: Speci men Type: BLOOD SPECIMENOrdering Facility: [facility] Address: [address] [place] [id number] Performed By: #### 2 4323-8 ####[facility] LABCLIA [id number] [place] [id number] [place] ALT [Catalytic activity/Vol] 22 U/L Normal 10-54 [facility] Comment on above: Order Comment: Speci men Type: BLOOD SPECIMENOrdering Facility: [facility] Address: [address] [place] [address] Performed By: #### 2 4323-8 ####[facility] LABCLIA [id number] [place] [address] [place] Anion gap [Moles/Vol] 9 mmol/L Normal 8-15 [facility] Comment on above: Order Comment: Speci men Type: BLOOD SPECIMENOrdering Facility: [facility] Address: [address] [place] [address] Performed By: #### 2 4323-8 ####[facility] LABCLIA [id number] [place] [address] [place] AST [Catalytic activity/Vol] 19 U/L Normal 14-40 [facility] Comment on above: Order Comment: Speci men Type: BLOOD SPECIMENOrdering Facility: [facility] Address: [address] [place] [address] Performed By: #### 2 4323-8 ####[facility] LABCLIA [id number] [place] [id number] [place] Bilirubin [Mass/Vol] 0.8 mg/dL Normal 0.2-1.3 [facility] Comment on above: Order Comment: Speci men Type: BLOOD SPECIMENOrdering Facility: [facility] Address: [address] [place], [place] [id number] Performed By: #### 2 4323-8 ####[facility] LABCLIA [id number] [place] [address] [place] Calcium [Mass/Vol] 9.1 mg/dL Normal 8.5-10.2 [facility] Comment on above: Order Comment: Speci men Type: BLOOD SPECIMENOrdering Facility: [facility] Address: [address] [place] [address] Performed By: #### 2 4323-8 ####[facility] LABCLIA [id number] [place] [address] [place] Chloride [Moles/Vol] 87 mmol/L Low 98-107 [facility] Comment on above: Order Comment: Speci men Type: BLOOD SPECIMENOrdering Facility: [facility] Address: [address] [place] [address] Performed By: #### 2 4323-8 ####[facility] LABCLIA [id number] [place] [address] [place] CO2 [Moles/Vol] 36 mmol/L High 22-30 [facility] Comment on above: Order Comment: Speci men Type: BLOOD SPECIMENOrdering Facility: [facility] Address: [address] [place] [address] Performed By: #### 2 4323-8 ####[facility] LABCLIA [id number] [place] [address] [place] Creatinine [Mass/Vol] 1.51 mg/dL High 0.73-1.22 [facility] Comment on above: Order Comment: Speci men Type: BLOOD SPECIMENOrdering Facility: [facility] Address: [address] [place], [place] [id number] Performed By: #### 2 4323-8 ####[facility] LABCLIA [id number] [place] [address] [place] Creatinine and Glomerular filtration rate.predicted panel (S/P/Bld) 49 mL/min/1.73m??? Low >=60 [facility] Comment on above: Order Comment: Ricardo ignacio Type: BLOOD SPECIMENOrdering Facility: [facility] Address: [address] [place] [address] Result Comment: Aileen mated Glomerular Filtration Rate [...] reflect actual GFR. Performed By: #### 2 4323-8 ####[facility] LABIA [id number] [place] [address] [place] Glucose [Mass/Vol] 209 mg/dL High 74-99 [facility] Comment on above: Order Comment: Ricardo ignacio Type: BLOOD SPECIMENOrdering Facility: [facility] Address: [address] [place] [address] Result Comment: The [place] [employer] (ADA) provides guidance for cutoff values for fasting glucose and random glucose. The ADA defines fasting as no caloric intake for at least 8 hours. Fasting plasma glucose results between 100 to 125 mg/dL indicate increased risk for diabetes (prediabetes).Fasting plasma glucose results greater than or equal to 126 mg/dL meet the criteria for diagnosis of diabetes. In the absence of unequivocal hyperglycemia, results should be confirmed by repeat testing. In a patient with classic symptoms of hyperglycemia or hyperglycemic crisis, random plasma glucose results greater than or equal to 200 mg/dL meet the criteria for diagnosis of diabetes.Reference: Standards of Medical Care in Diabetes 2016, [place] [employer]. Diabetes Care. 2016.39(Suppl 1). Performed By: #### 2 4323-8 ####[facility] [id number] [place] [address] [place] Potassium [Moles/Vol] 4.0 mmol/L Normal 3.7-5.1 [facility] Comment on above: Order Comment: Ricardo ignacio Type: BLOOD SPECIMENOrdering Facility: [facility] Address: [address] [place] [address] Performed By: #### 2 4323-8 ####[facility] LABCLIA [id number] [place] [address] [place] Protein [Mass/Vol] 5.5 g/dL Low 6.3-8.0 [facility] Comment on above: Order Comment: Speci men Type: BLOOD SPECIMENOrdering Facility: [facility] Address: [address] [place] [address] Performed By: #### 2 4323-8 ####[facility] LABCLIA [id number] [place] [address] [place] Sodium [Moles/Vol] 132 mmol/L Low 136-144 [facility] Comment on above: Order Comment: Speci men Type: BLOOD SPECIMENOrdering Facility: [facility] Address: [address] [place] [address] Performed By: #### 2 4323-8 ####[facility] LABCLIA [id number] [place] [address] [place] Urea nitrogen [Mass/Vol] 38 mg/dL High 9-24 [facility] Comment on above: Order Comment: Speci men Type: BLOOD SPECIMENOrdering Facility: [facility] Address: [address] [place] [address] Performed By: #### 2 4323-8 ####[facility] LABCLIA [id number] [place] [address] [place] Erythrocyte distribution wid th Auto (RBC) [Ratio]on 09-25-2023 Erythrocyte distribution width (RBC) [Ratio] 15.5 % High 11.5-15.0 [facility] Hematocrit Auto (Bld) [Volum e fraction]on 09-25-2023 Hematocrit (Bld) [Volume fraction] 29.2 % Low 39.0-51.0 [facility] Hemoglobin [Mass/volume] in Bloodon 09-25-2023 Hemoglobin (Bld) [Mass/Vol] 10.1 g/dL Low 13.0-17.0 [facility] Leukocytes [#/volume] correc leticia for nucleated erythrocytes in Blood by Automated counon 09-25-2023 WBC corrected for nucl RBC Auto (Bld) [#/Vol] 8.23 k/uL 3.70-11.00 [facility] MCH Auto (RBC) [Entitic mass ]on 09-25-2023 MCH (RBC) [Entitic mass] 29.0 pg 26.0-34.0 [facility] MCHC Auto (RBC) [Mass/Vol]on 09-25-2023 MCHC (RBC) [Mass/Vol] 34.6 g/dL 30.5-36.0 [facility] MCV Auto (RBC) [Entitic vol] on 09-25-2023 MCV (RBC) [Entitic vol] 83.9 fL 80.0-100.0 [facility] No Panel Informationon 09-24 22 U/L 10-54 [facility] 3.1 g/dL Low 3.9-4.9 [facility] 19 U/L 14-40 [facility] 0.8 mg/dL 0.2-1.3 [facility] 36 mmol/L High 22-30 [facility] 87 mmol/L Low 98-107 [facility] 1.51 mg/dL High 0.73-1.22 [facility] 209 mg/dL High 74-99 [facility] 4.0 mmol/L 3.7-5.1 [facility] 132 mmol/L Low 136-144 [facility] 38 mg/dL High 9-24 [facility] 67 U/L 38-113 [facility] 9.1 mg/dL 8.5-10.2 [facility] 49 mL/min/1.73m??? Low >=60 [facility] Nucleated RBC Auto (Bld) [#/ Vol]on 09-25-2023 Nucleated RBC (Bld) [#/Vol] 10*3/uL <0.01 [facility] Platelet mean volume Auto (B ld) [Entitic vol]on 09-25-2023 Platelet mean volume (Bld) [Entitic vol] 10.7 fL 9.0-12.7 [facility] Platelets Auto (Bld) [#/Vol] on 09-25-2023 Platelets (Bld) [#/Vol] 205 10*3/uL 150-400 [facility] Protein [Mass/volume] in Ser um or Plasmaon 09-25-2023 Protein [Mass/Vol] 5.5 g/dL Low 6.3-8.0 [facility] RBC Auto (Bld) [#/Vol]on RBC (Bld) [#/Vol] 3.48 10*6/uL Low 4.20-6.00 [facility] Serum or plasma anion gap de terminationon 09-25-2023 Anion gap [Moles/Vol] 9 mmol/L 8- [facility] XR CHEST 1V FRONTAL PORTon 0 09-25-2023 XR CHEST 1V FRONTAL PORT Normal [facility] CBC panel Auto (Bld)on 09-23 Erythrocyte distribution width (RBC) [Ratio] 16.2 % High 11.5-15.0 [facility] Comment on above: Order Comment: Speci men Type: BLOOD SPECIMENOrdering Facility: [facility] Address: [address] [place] [address] Performed By: #### 5 8410-2 ####[facility] LABIA [id number] [place] [address] [place] Hematocrit (Bld) [Volume fraction] 27.9 % Low 39.0-51.0 [facility] Comment on above: Order Comment: Speci men Type: BLOOD SPECIMENOrdering Facility: [facility] Address: [address] [place] [address] Performed By: #### 5 8410-2 ####[facility] LABCLIA [id number] [place] [address] [place] Hemoglobin (Bld) [Mass/Vol] 9.8 g/dL Low 13.0-17.0 [facility] Comment on above: Order Comment: Speci men Type: BLOOD SPECIMENOrdering Facility: [facility] Address: [address] [place] [address] Performed By: #### 5 8410-2 ####[facility] LABCLIA [id number] [place] [address] [place] MCH (RBC) [Entitic mass] 29.6 pg Normal 26.0-34.0 [facility] Comment on above: Order Comment: Speci men Type: BLOOD SPECIMENOrdering Facility: [facility] Address: [address] [place] [address] Performed By: #### 5 8410-2 ####[facility] LABCLIA [id number] [place] [address] [place] MCHC (RBC) [Mass/Vol] 35.1 g/dL Normal 30.5-36.0 [facility] Comment on above: Order Comment: Speci men Type: BLOOD SPECIMENOrdering Facility: [facility] Address: [address] [place] [address] Performed By: #### 5 8410-2 ####[facility] LABCLIA [id number] [place] [address] [place] MCV (RBC) [Entitic vol] 84.3 fL Normal 80.0-100.0 [facility] Comment on above: Order Comment: Speci men Type: BLOOD SPECIMENOrdering Facility: [facility] Address: [address] [place] [address] Performed By: #### 5 8410-2 ####[facility] LABCLIA [id number] [place] [address] [place] Nucleated RBC (Bld) [#/Vol] 10*3/uL Normal <0.01 [facility] Comment on above: Order Comment: Speci men Type: BLOOD SPECIMENOrdering Facility: [facility] Address: [address] [place] [address] Performed By: #### 5 8410-2 ####[facility] LABCLIA [id number] [place] [address] [place] Platelet mean volume (Bld) [Entitic vol] 11.2 fL Normal 9.0-12.7 [facility] Comment on above: Order Comment: Speci men Type: BLOOD SPECIMENOrdering Facility: [facility] Address: [address] [place] [address] Performed By: #### 5 8410-2 ####[facility] LABIA [id number] [place] [address] [place] Platelets (Bld) [#/Vol] 166 10*3/uL Normal 150-400 [facility] Comment on above: Order Comment: Speci men Type: BLOOD SPECIMENOrdering Facility: [facility] Address: [address] [place] [address] Performed By: #### 5 8410-2 ####[facility] LABIA [id number] [place] [address] [place] RBC (Bld) [#/Vol] 3.31 10*6/uL Low 4.20-6.00 [facility] Comment on above: Order Comment: Speci men Type: BLOOD SPECIMENOrdering Facility: [facility] Address: [address] [place] [address] Performed By: #### 5 8410-2 ####[facility] LABIA [id number] [place] [address] [place] WBC (Bld) [#/Vol] 9.94 10*3/uL Normal 3.70-11.00 [facility] Comment on above: Order Comment: Speci men Type: BLOOD SPECIMENOrdering Facility: [facility] Address: [address] [place] [address] Performed By: #### 5 8410-2 ####[facility] LABIA [id number] [place] [address] [place] CONSULT PROGon 09-24-2023 CONSULT PROG Normal [facility] Comprehensive metabolic 2000 panelon 09-24-2023 Albumin [Mass/Vol] 3.0 g/dL Low 3.9-4.9 [facility] Comment on above: Order Comment: Speci men Type: BLOOD SPECIMENOrdering Facility: [facility] Address: [address] [place] [address] Performed By: #### 2 4323-8 ####[facility] LABCLIA [id number] [place] [address] [place] ALP [Catalytic activity/Vol] 67 U/L Normal 38-113 [facility] Comment on above: Order Comment: Speci men Type: BLOOD SPECIMENOrdering Facility: [facility] Address: [address] [place] [address] Performed By: #### 2 4323-8 ####[facility] LABCLIA [id number] [place] [address] [place] ALT [Catalytic activity/Vol] 14 U/L Normal 10-54 [facility] Comment on above: Order Comment: Speci men Type: BLOOD SPECIMENOrdering Facility: [facility] Address: [address] [place] [address] Performed By: #### 2 4323-8 ####[facility] LABCLIA [id number] [place] [address] [place] Anion gap [Moles/Vol] 9 mmol/L Normal 8-15 [facility] Comment on above: Order Comment: Speci men Type: BLOOD SPECIMENOrdering Facility: [facility] Address: [address] [place], [place] [id number] Performed By: #### 2 4323-8 ####[facility] LABCLIA [id number] [place] [address] [place] AST [Catalytic activity/Vol] 15 U/L Normal 14-40 [facility] Comment on above: Order Comment: Speci men Type: BLOOD SPECIMENOrdering Facility: [facility] Address: [address] [place] [address] Performed By: #### 2 4323-8 ####[facility] LABCLIA [id number] [place] [address] [place] Bilirubin [Mass/Vol] 0.8 mg/dL Normal 0.2-1.3 [facility] Comment on above: Order Comment: Speci men Type: BLOOD SPECIMENOrdering Facility: [facility] Address: [address] [place] [address] Performed By: #### 2 4323-8 ####[facility] LABCLIA [id number] [place] [address] [place] Calcium [Mass/Vol] 9.1 mg/dL Normal 8.5-10.2 [facility] Comment on above: Order Comment: Speci men Type: BLOOD SPECIMENOrdering Facility: [facility] Address: [address] [place] [address] Performed By: #### 2 4323-8 ####[facility] LABCLIA [id number] [place] [address] [place] Chloride [Moles/Vol] 90 mmol/L Low 98-107 [facility] Comment on above: Order Comment: Speci men Type: BLOOD SPECIMENOrdering Facility: [facility] Address: [address] [place] [address] Performed By: #### 2 4323-8 ####[facility] LABCLIA [id number] [place] [id number] [place] CO2 [Moles/Vol] 33 mmol/L High 22-30 [facility] Comment on above: Order Comment: Speci men Type: BLOOD SPECIMENOrdering Facility: [facility] Address: [address] [place] [address] Performed By: #### 2 4323-8 ####[facility] LABCLIA [id number] [place] [address] [place] Creatinine [Mass/Vol] 1.51 mg/dL High 0.73-1.22 [facility] Comment on above: Order Comment: Ricardo ignacio Type: BLOOD SPECIMENOrdering Facility: [facility] Address: [address] [place] [address] Performed By: #### 2 4323-8 ####[facility] LABCLIA [id number] [place] [address] [place] Creatinine and Glomerular filtration rate.predicted panel (S/P/Bld) 49 mL/min/1.73m??? Low >=60 [facility] Comment on above: Order Comment: Ricardo ignacio Type: BLOOD SPECIMENOrdering Facility: [facility] Address: [address] [place] [address] Result Comment: Aileen mated Glomerular Filtration Rate [...] reflect actual GFR. Performed By: #### 2 4323-8 ####[facility] LABCLIA [id number] [place] [address] [place] Glucose [Mass/Vol] 104 mg/dL High 74-99 [facility] Comment on above: Order Comment: Ricardo ignacio Type: BLOOD SPECIMENOrdering Facility: [facility] Address: [address] [place] [address] Result Comment: The [place] [employer] (ADA) provides guidance for cutoff values for fasting glucose and random glucose. The ADA defines fasting as no caloric intake for at least 8 hours. Fasting plasma glucose results between 100 to 125 mg/dL indicate increased risk for diabetes (prediabetes).Fasting plasma glucose results greater than or equal to 126 mg/dL meet the criteria for diagnosis of diabetes. In the absence of unequivocal hyperglycemia, results should be confirmed by repeat testing. In a patient with classic symptoms of hyperglycemia or hyperglycemic crisis, random plasma glucose results greater than or equal to 200 mg/dL meet the criteria for diagnosis of diabetes.Reference: Standards of Medical Care in Diabetes 2016, [place] [employer]. Diabetes Care. 2016.39(Suppl 1). Performed By: #### 2 4323-8 ####[facility] LABCLIA [id number] [address] [address] [place] Potassium [Moles/Vol] 4.0 mmol/L Normal 3.7-5.1 [facility] Comment on above: Order Comment: Speci men Type: BLOOD SPECIMENOrdering Facility: [facility] Address: [address] [place] [address] Performed By: #### 2 4323-8 ####[facility] LABIA [id number] [place] [address] [place] Protein [Mass/Vol] 5.3 g/dL Low 6.3-8.0 [facility] Comment on above: Order Comment: Speci men Type: BLOOD SPECIMENOrdering Facility: [facility] Address: [address] [place], [place] [address] Performed By: #### 2 4323-8 ####[facility] LABIA [id number] [place] [address] [place] Sodium [Moles/Vol] 132 mmol/L Low 136-144 [facility] Comment on above: Order Comment: Speci men Type: BLOOD SPECIMENOrdering Facility: [facility] Address: [address] [place] [address] Performed By: #### 2 4323-8 ####[facility] LABCLIA [id number] [place] [id number] [place] Urea nitrogen [Mass/Vol] 35 mg/dL High 9-24 [facility] Comment on above: Order Comment: Speci men Type: BLOOD SPECIMENOrdering Facility: [facility] Address: [address] [place] [address] Performed By: #### 2 4323-8 ####[facility] LABCLIA [id number] [place] [address] [place] ECG COMPLETEon 09-24-2023 ECG COMPLETE Normal [facility] Erythrocyte distribution wid th Auto (RBC) [Ratio]on 09-24-2023 Erythrocyte distribution width (RBC) [Ratio] 16.2 % High 11.5-15.0 [facility] Hematocrit Auto (Bld) [Volum e fraction]on 09-24-2023 Hematocrit (Bld) [Volume fraction] 27.9 % Low 39.0-51.0 [facility] Hemoglobin [Mass/volume] in Bloodon 09-24-2023 Hemoglobin (Bld) [Mass/Vol] 9.8 g/dL Low 13.0-17.0 [facility] Leukocytes [#/volume] correc leticia for nucleated erythrocytes in Blood by Automated counon 09-24-2023 WBC corrected for nucl RBC Auto (Bld) [#/Vol] 9.94 k/uL 3.70-11.00 [facility] MCH Auto (RBC) [Entitic mass ]on 09-24-2023 MCH (RBC) [Entitic mass] 29.6 pg 26.0-34.0 [facility] MCHC Auto (RBC) [Mass/Vol]on 09-24-2023 MCHC (RBC) [Mass/Vol] 35.1 g/dL 30.5-36.0 [facility] MCV Auto (RBC) [Entitic vol] on 09-24-2023 MCV (RBC) [Entitic vol] 84.3 fL 80.0-100.0 [facility] No Panel Informationon 09-23 Negative Negative [facility] Red Abnormal Yellow [facility] None Seen [HPF] [facility] Trace Abnormal Negative [facility] 4-10 /LPF Abnormal 0 /LPF [facility] 6.0 <8.5 [facility] 1.009 1.005-1.030 [facility] 0.2 EU/dL 0.2-1.0 EU/dL [facility] 0-5 /HPF 0-5 /HPF [facility] 0-2 /HPF 0-2 /HPF [facility] Clear Clear [facility] 14 U/L 10-54 [facility] 3.0 g/dL Low 3.9-4.9 [facility] 15 U/L 14-40 [facility] 0.8 mg/dL 0.2-1.3 [facility] 33 mmol/L High 22-30 [facility] 90 mmol/L Low 98-107 [facility] 1.51 mg/dL High 0.73-1.22 [facility] 104 mg/dL High 74-99 [facility] 4.0 mmol/L 3.7-5.1 [facility] 132 mmol/L Low 136-144 [facility] 35 mg/dL High 9-24 [facility] 67 U/L 38-113 [facility] 9.1 mg/dL 8.5-10.2 [facility] 49 mL/min/1.73m??? Low >=60 [facility] Nucleated RBC Auto (Bld) [#/ Vol]on 09-24-2023 Nucleated RBC (Bld) [#/Vol] 10*3/uL <0.01 [facility] Platelet mean volume Auto (B ld) [Entitic vol]on 09-24-2023 Platelet mean volume (Bld) [Entitic vol] 11.2 fL 9.0-12.7 [facility] Platelets Auto (Bld) [#/Vol] on 09-24-2023 Platelets (Bld) [#/Vol] 166 10*3/uL 150-400 [facility] Protein [Mass/volume] in Ser um or Plasmaon 09-24-2023 Protein [Mass/Vol] 5.3 g/dL Low 6.3-8.0 [facility] RBC Auto (Bld) [#/Vol]on RBC (Bld) [#/Vol] 3.31 10*6/uL Low 4.20-6.00 [facility] Serum or plasma anion gap de terminationon 09-24-2023 Anion gap [Moles/Vol] 9 mmol/L 8-15 [facility] Urinalysis complete panel (U )on 09-24-2023 Bacteria LM.HPF (Urine sed) [#/Area] Negative Normal Negative [facility] Comment on above: Order Comment: Speci men Type: URINE SPECIMENOrdering Facility: [facility] Address: [address] [place] [address] Performed By: #### 2 4356-8 ####[facility] LABCLIA [id number] [place] [address] [place] Bilirubin Ql (U) Negative Normal Negative [facility] Comment on above: Order Comment: Speci men Type: URINE SPECIMENOrdering Facility: [facility] Address: [address] [place] [address] Performed By: #### 2 4356-8 ####[facility] LABCLIA [id number] [place] [address] [place] Clarity (Unsp spec) Clear Normal Clear [facility] Comment on above: Order Comment: Speci men Type: URINE SPECIMENOrdering Facility: [facility] Address: [address] [place] [address] Performed By: #### 2 4356-8 ####[facility] LABCLIA [id number] [place] [address] [place] Color (U) Red Abnormal Yellow [facility] Comment on above: Order Comment: Speci men Type: URINE SPECIMENOrdering Facility: [facility] Address: [address] [place] [address] Performed By: #### 2 4356-8 ####[facility] LABCLIA [id number] [place] [address] [place] Epithelial cells LM.HPF (Urine sed) [#/Area] None Seen Normal [facility] Comment on above: Order Comment: Speci men Type: URINE SPECIMENOrdering Facility: [facility] Address: [address] [place] [address] Performed By: #### 2 4356-8 ####[facility] LABCLIA [id number] [place] [address] [place] Glucose Test strip (U) [Mass/Vol] Negative Normal Negative [facility] Comment on above: Order Comment: Speci men Type: URINE SPECIMENOrdering Facility: [facility] Address: [address] [place] [address] Performed By: #### 2 4356-8 ####[facility] LABCLIA [id number] [place] [address] [place] Hemoglobin Ql (U) Trace Abnormal Negative [facility] Comment on above: Order Comment: Speci men Type: URINE SPECIMENOrdering Facility: [facility] Address: [address] [place] [address] Performed By: #### 2 4356-8 ####[facility] LABCLIA [id number] [place] [address] [place] Hyaline casts (Urine sed) [#/Area] 4-10 /LPF Abnormal 0 /LPF [facility] Comment on above: Order Comment: Speci men Type: URINE SPECIMENOrdering Facility: [facility] Address: [address] [place] [address] Performed By: #### 2 4356-8 ####[facility] LABCLIA [id number] [place] [address] [place] Ketones Ql (U) Negative Normal Negative [facility] Comment on above: Order Comment: Speci men Type: URINE SPECIMENOrdering Facility: [facility] Address: [address] [place] [address] Performed By: #### 2 4356-8 ####[facility] LABCLIA [id number] [place] [address] [place] Leukocyte esterase Test strip Ql (U) Trace Abnormal Negative [facility] Comment on above: Order Comment: Speci men Type: URINE SPECIMENOrdering Facility: [facility] Address: [address] [place] [address] Performed By: #### 2 4356-8 ####[facility] LABCLIA [id number] [place] [address] [place] Nitrite Ql (U) Negative Normal Negative [facility] Comment on above: Order Comment: Speci men Type: URINE SPECIMENOrdering Facility: [facility] Address: [address] [place] [address] Performed By: #### 2 4356-8 ####[facility] LABIA [id number] [place] [address] [place] pH (U) 6.0 [pH] Normal <8.5 [facility] Comment on above: Order Comment: Speci men Type: URINE SPECIMENOrdering Facility: [facility] Address: [address] [place] [address] Performed By: #### 2 4356-8 ####[facility] LABIA [id number] [place] [address] [place] Protein (U) [Mass/Vol] Negative Normal Negative [facility] Comment on above: Order Comment: Speci men Type: URINE SPECIMENOrdering Facility: [facility] Address: [address] [place] [address] Performed By: #### 2 4356-8 ####[facility] LABIA [id number] [place] [address] [place] RBC LM.HPF (Urine sed) [#/Area] 0-2 /HPF Normal 0-2 /HPF [facility] Comment on above: Order Comment: Speci men Type: URINE SPECIMENOrdering Facility: [facility] Address: [address] [place] [address] Performed By: #### 2 4356-8 ####[facility] LABIA [id number] [place] [address] [place] Specific gravity (U) [Rel density] 1.009 Normal 1.005-1.030 [facility] Comment on above: Order Comment: Speci men Type: URINE SPECIMENOrdering Facility: [facility] Address: [address] [place] [address] Performed By: #### 2 4356-8 ####[facility] LABCLIA [id number] [place] [address] [place] Urobilinogen Ql (U) 0.2 EU/dL Normal 0.2-1.0 EU/dL [facility] Comment on above: Order Comment: Speci men Type: URINE SPECIMENOrdering Facility: [facility] Address: [address] [place] [address] Performed By: #### 2 4356-8 ####[facility] LABIA [id number] [place] [address] [place] WBC LM.HPF (Urine sed) [#/Area] 0-5 /HPF Normal 0-5 /HPF [facility] Comment on above: Order Comment: Speci men Type: URINE SPECIMENOrdering Facility: [facility] Address: [address] [place] [address] Performed By: #### 2 4356-8 ####[facility] LABIA [id number] [place] [address] [place] XR CHEST 1V FRONTAL PORTon 0 09-24-2023 XR CHEST 1V FRONTAL PORT Normal [facility] XR CHEST 1V FRONTAL PORT Normal [facility] XR CHEST 1V FRONTAL PORT Normal [facility] Activated partial thrombopla stin time (aPTT) in platelet poor plasma by coagulation aon 09-23-2023 aPTT Coag (PPP) [Time] 35.6 s High 23.0-32.4 [facility] CBC panel Auto (Bld)on 09-22 Erythrocyte distribution width (RBC) [Ratio] 16.2 % High 11.5-15.0 [facility] Comment on above: Order Comment: Speci men Type: BLOOD SPECIMENOrdering Facility: [facility] Address: [address] [place] [address] Performed By: #### 5 8410-2 ####[facility] LABCLIA [id number] [place] [address] [place] Hematocrit (Bld) [Volume fraction] 26.4 % Low 39.0-51.0 [facility] Comment on above: Order Comment: Speci men Type: BLOOD SPECIMENOrdering Facility: [facility] Address: [address] [place] [address] Performed By: #### 5 8410-2 ####[facility] LABCLIA [id number] [place] [address] [place] Hemoglobin (Bld) [Mass/Vol] 9.1 g/dL Low 13.0-17.0 [facility] Comment on above: Order Comment: Speci men Type: BLOOD SPECIMENOrdering Facility: [facility] Address: [address] [place] [address] Performed By: #### 5 8410-2 ####[facility] LABCLIA [id number] [place] [address] [place] MCH (RBC) [Entitic mass] 29.9 pg Normal 26.0-34.0 [facility] Comment on above: Order Comment: Speci men Type: BLOOD SPECIMENOrdering Facility: [facility] Address: [address] [place] [address] Performed By: #### 5 8410-2 ####[facility] LABCLIA [id number] [place] [address] [place] MCHC (RBC) [Mass/Vol] 34.5 g/dL Normal 30.5-36.0 [facility] Comment on above: Order Comment: Speci men Type: BLOOD SPECIMENOrdering Facility: [facility] Address: [address] [place] [address] Performed By: #### 5 8410-2 ####[facility] LABCLIA [id number] [place] [address] [place] MCV (RBC) [Entitic vol] 86.8 fL Normal 80.0-100.0 [facility] Comment on above: Order Comment: Speci men Type: BLOOD SPECIMENOrdering Facility: [facility] Address: [address] [place] [address] Performed By: #### 5 8410-2 ####[facility] LABIA [id number] [place] [address] [place] Nucleated RBC (Bld) [#/Vol] 10*3/uL Normal <0.01 [facility] Comment on above: Order Comment: Speci men Type: BLOOD SPECIMENOrdering Facility: [facility] Address: [address] [place] [address] Performed By: #### 5 8410-2 ####[facility] [id number] [place] [address] [place] Platelet mean volume (Bld) [Entitic vol] 11.5 fL Normal 9.0-12.7 [facility] Comment on above: Order Comment: Speci men Type: BLOOD SPECIMENOrdering Facility: [facility] Address: [address] [place] [address] Performed By: #### 5 8410-2 ####[facility] [id number] [place] [address] [place] Platelets (Bld) [#/Vol] 104 10*3/uL Low 150-400 [facility] Comment on above: Order Comment: Speci men Type: BLOOD SPECIMENOrdering Facility: [facility] Address: [address] [place] [address] Result Comment: No c lot detected. Performed By: #### 5 8410-2 ####[facility] LABIA [id number] [place] [address] [place] RBC (Bld) [#/Vol] 3.04 10*6/uL Low 4.20-6.00 [facility] Comment on above: Order Comment: Speci men Type: BLOOD SPECIMENOrdering Facility: [facility] Address: [address] [place] [address] Performed By: #### 5 8410-2 ####[facility] LABCLIA [id number] [place] [address] [place] WBC (Bld) [#/Vol] 12.23 10*3/uL High 3.70-11.00 [facility] Comment on above: Order Comment: Speci men Type: BLOOD SPECIMENOrdering Facility: [facility] Address: [address] [place] [address] Performed By: #### 5 8410-2 ####[facility] LABCLIA [id number] [place] [address] [place] Erythrocyte distribution width (RBC) [Ratio] 16.3 % High 11.5-15.0 [facility] Comment on above: Order Comment: Speci men Type: BLOOD SPECIMENOrdering Facility: [facility] Address: [address] [place] [address] Performed By: #### 5 8410-2 ####[facility] LABCLIA [id number] [place] [address] [place] Hematocrit (Bld) [Volume fraction] 22.4 % Low 39.0-51.0 [facility] Comment on above: Order Comment: Speci men Type: BLOOD SPECIMENOrdering Facility: [facility] Address: [address] [place] [address] Performed By: #### 5 8410-2 ####[facility] LABCLIA [id number] [place] [address] [place] Hemoglobin (Bld) [Mass/Vol] 7.8 g/dL Low 13.0-17.0 [facility] Comment on above: Order Comment: Speci men Type: BLOOD SPECIMENOrdering Facility: [facility] Address: [address] [place] [address] Performed By: #### 5 8410-2 ####[facility] LABCLIA [id number] [place] [address] [place] MCH (RBC) [Entitic mass] 30.1 pg Normal 26.0-34.0 [facility] Comment on above: Order Comment: Speci men Type: BLOOD SPECIMENOrdering Facility: [facility] Address: [address] [place] [address] Performed By: #### 5 8410-2 ####[facility] LABIA [id number] [place] [address] [place] MCHC (RBC) [Mass/Vol] 34.8 g/dL Normal 30.5-36.0 [facility] Comment on above: Order Comment: Speci men Type: BLOOD SPECIMENOrdering Facility: [facility] Address: [address] [place] [address] Performed By: #### 5 8410-2 ####[facility] LABIA [id number] [place] [address] [place] MCV (RBC) [Entitic vol] 86.5 fL Normal 80.0-100.0 [facility] Comment on above: Order Comment: Speci men Type: BLOOD SPECIMENOrdering Facility: [facility] Address: [address] [place] [address] Performed By: #### 5 8410-2 ####[facility] LABCLIA [id number] [place] [address] [place] Nucleated RBC (Bld) [#/Vol] 10*3/uL Normal <0.01 [facility] Comment on above: Order Comment: Speci men Type: BLOOD SPECIMENOrdering Facility: [facility] Address: [address] [place] [address] Performed By: #### 5 8410-2 ####[facility] LABCLIA [id number] [place] [address] [place] Platelet mean volume (Bld) [Entitic vol] 11.3 fL Normal 9.0-12.7 [facility] Comment on above: Order Comment: Speci men Type: BLOOD SPECIMENOrdering Facility: [facility] Address: [address] [place] [address] Performed By: #### 5 8410-2 ####[facility] LABIA [id number] [place] [address] [place] Platelets (Bld) [#/Vol] 116 10*3/uL Low 150-400 [facility] Comment on above: Order Comment: Speci men Type: BLOOD SPECIMENOrdering Facility: [facility] Address: [address] [place] [address] Performed By: #### 5 8410-2 ####[facility] [id number] [place] [address] [place] RBC (Bld) [#/Vol] 2.59 10*6/uL Low 4.20-6.00 [facility] Comment on above: Order Comment: Speci men Type: BLOOD SPECIMENOrdering Facility: [facility] Address: [address] [place] [address] Performed By: #### 5 8410-2 ####[facility] [id number] [place] [address] [place] WBC (Bld) [#/Vol] 13.19 10*3/uL High 3.70-11.00 [facility] Comment on above: Order Comment: Speci men Type: BLOOD SPECIMENOrdering Facility: [facility] Address: [address] [place] [address] Performed By: #### 5 8410-2 ####[facility] LABIA [id number] [place] [address] [place] CONSULTon 09-23-2023 CONSULT Normal [facility] CONSULT PROGon 09-23-2023 CONSULT PROG Normal [facility] Comprehensive metabolic 2000 panelon 09-23-2023 Albumin [Mass/Vol] 3.0 g/dL Low 3.9-4.9 [facility] Comment on above: Order Comment: Speci men Type: BLOOD SPECIMENOrdering Facility: [facility] Address: [address] [place] [address] Performed By: #### 2 4323-8, ####[facility] LABCLIA [id number] [place] [address] [place] ALP [Catalytic activity/Vol] 60 U/L Normal 38-113 [facility] Comment on above: Order Comment: Speci men Type: BLOOD SPECIMENOrdering Facility: [facility] Address: [address] [place] [address] Performed By: #### 2 432-8, ####[facility] LABCLIA [id number] [place] [address] [place] ALT [Catalytic activity/Vol] 12 U/L Normal 10-54 [facility] Comment on above: Order Comment: Speci men Type: BLOOD SPECIMENOrdering Facility: [facility] Address: [address] [place] [address] Performed By: #### 2 4323-8, ####[facility] LABCLIA [id number] [place] [address] [place] Anion gap [Moles/Vol] 7 mmol/L Low 8-15 [facility] Comment on above: Order Comment: Speci men Type: BLOOD SPECIMENOrdering Facility: [facility] Address: [address] [place] [address] Performed By: #### 2 4323-8, ####[facility] LABCLIA [id number] [place] [address] [place] AST [Catalytic activity/Vol] 15 U/L Normal 14-40 [facility] Comment on above: Order Comment: Speci men Type: BLOOD SPECIMENOrdering Facility: [facility] Address: [address] [place] [address] Performed By: #### 2 432-8, ####[facility] LABCLIA [id number] [place] [address] [place] Bilirubin [Mass/Vol] 0.6 mg/dL Normal 0.2-1.3 [facility] Comment on above: Order Comment: Speci men Type: BLOOD SPECIMENOrdering Facility: [facility] Address: [address] [place] [address] Performed By: #### 2 4323-8, ####[facility] LABCLIA [id number] [place] [address] [place] Calcium [Mass/Vol] 8.3 mg/dL Low 8.5-10.2 [facility] Comment on above: Order Comment: Speci men Type: BLOOD SPECIMENOrdering Facility: [facility] Address: [address] [place] [address] Performed By: #### 2 4323-8, ####[facility] LABCLIA [id number] [place] [address] [place] Chloride [Moles/Vol] 97 mmol/L Low 98-107 [facility] Comment on above: Order Comment: Speci men Type: BLOOD SPECIMENOrdering Facility: [facility] Address: [address] [place], [place] [id number] Performed By: #### 2 4323-8, ####[facility] LABCLIA [id number] [place] [id number] [place] CO2 [Moles/Vol] 31 mmol/L High 22-30 [facility] Comment on above: Order Comment: Speci men Type: BLOOD SPECIMENOrdering Facility: [facility] Address: [address] [place] [address] Performed By: #### 2 4323-8, ####[facility] LABIA [id number] [place] [id number] [place] Creatinine [Mass/Vol] 1.55 mg/dL High 0.73-1.22 [facility] Comment on above: Order Comment: Speci men Type: BLOOD SPECIMENOrdering Facility: [facility] Address: [address] [place] [address] Performed By: #### 2 4323-8, ####[facility] LABIA [id number] [place] [address] [place] Creatinine and Glomerular filtration rate.predicted panel (S/P/Bld) 48 mL/min/1.73m??? Low >=60 [facility] Comment on above: Order Comment: Brynni men Type: BLOOD SPECIMENOrdering Facility: [facility] Address: [address] [place] [address] Result Comment: Aileen mated Glomerular Filtration Rate [...] actual GFR. Performed By: #### 2 4323-8, ####[facility] LABIA [id number] [place] [id number] [place] Glucose [Mass/Vol] 157 mg/dL High 74-99 [facility] Comment on above: Order Comment: Speci men Type: BLOOD SPECIMENOrdering Facility: [facility] Address: [address] [place] [address] Result Comment: The [place] [employer] (ADA) provides guidance for cutoff values for fasting glucose and random glucose. The ADA defines fasting as no caloric intake for at least 8 hours. Fasting plasma glucose results between 100 to 125 mg/dL indicate increased risk for diabetes (prediabetes).Fasting plasma glucose results greater than or equal to 126 mg/dL meet the criteria for diagnosis of diabetes. In the absence of unequivocal hyperglycemia, results should be confirmed by repeat testing. In a patient with classic symptoms of hyperglycemia or hyperglycemic crisis, random plasma glucose results greater than or equal to 200 mg/dL meet the criteria for diagnosis of diabetes.Reference: Standards of Medical Care in Diabetes 2016, [place] [employer]. Diabetes Care. 2016.39(Suppl 1). Performed By: #### 2 4322-10, ####[facility] LABCLIA [id number] [facility] [place] [address] [place] Potassium [Moles/Vol] 4.3 mmol/L Normal 3.7-5.1 [facility] Comment on above: Order Comment: Speci men Type: BLOOD SPECIMENOrdering Facility: [facility] Address: [address] [place] [address] Performed By: #### 2 4322-10, ####[facility] LABCLIA [id number] [facility] [place] [address] [place] Protein [Mass/Vol] 4.8 g/dL Low 6.3-8.0 [facility] Comment on above: Order Comment: Brynni men Type: BLOOD SPECIMENOrdering Facility: [facility] Address: [address] [place] [address] Performed By: #### 2 4322-10, ####[facility] LABCLIA [id number] [facility] [address] [address] [place] Sodium [Moles/Vol] 135 mmol/L Low 136-144 [facility] Comment on above: Order Comment: Speci men Type: BLOOD SPECIMENOrdering Facility: [facility] Address: [address] [place] [address] Performed By: #### 2 43205-19, ####[facility] LABCLIA [id number] [place] [address] [place] Urea nitrogen [Mass/Vol] 32 mg/dL High 9-24 [facility] Comment on above: Order Comment: Speci men Type: BLOOD SPECIMENOrdering Facility: [facility] Address: [address] [place] [address] Performed By: #### 2 4323-8, 43373-9 ####[facility] LABCLIA [id number] [place] [address] [place] Erythrocyte distribution wid th Auto (RBC) [Ratio]on 09-23-2023 Erythrocyte distribution width (RBC) [Ratio] 16.2 % High 11.5-15.0 [facility] Hematocrit Auto (Bld) [Volum e fraction]on 09-23-2023 Hematocrit (Bld) [Volume fraction] 26.4 % Low 39.0-51.0 [facility] Hemoglobin [Mass/volume] in Bloodon 09-23-2023 Hemoglobin (Bld) [Mass/Vol] 9.1 g/dL Low 13.0-17.0 [facility] INR in Platelet poor plasma by Coagulation assayon 09-23-2023 INR Coag (PPP) [Relative time] 1.4 {INR} High 0.9-1.3 [facility] Leukocytes [#/volume] correc leticia for nucleated erythrocytes in Blood by Automated counon 09-23-2023 WBC corrected for nucl RBC Auto (Bld) [#/Vol] 12.23 k/uL High 3.70-11.00 [facility] MCH Auto (RBC) [Entitic mass ]on 09-23-2023 MCH (RBC) [Entitic mass] 29.9 pg 26.0-34.0 [facility] MCHC Auto (RBC) [Mass/Vol]on 09-23-2023 MCHC (RBC) [Mass/Vol] 34.5 g/dL 30.5-36.0 [facility] MCV Auto (RBC) [Entitic vol] on 09-23-2023 MCV (RBC) [Entitic vol] 86.8 fL 80.0-100.0 [facility] Magnesium SerPl-mCncon 09-22 Magnesium [Mass/Vol] 2.4 mg/dL High 1.7-2.3 [facility] Comment on above: Order Comment: Speci men Type: BLOOD SPECIMENOrdering Facility: [facility] Address: [address] [place] [id number] Performed By: #### 2 4323-8, 10124-9 ####[facility] LABCLIA [id number] [address] [id number] [id number] [place] NUTRITIONon 09-23-2023 NUTRITION Normal [facility] No Panel Informationon 09-22 4.1 mmol/L 3.7-5.1 [facility] 12 U/L 10-54 [facility] 2.4 mg/dL High 1.7-2.3 [facility] 3.0 g/dL Low 3.9-4.9 [facility] 15 U/L 14-40 [facility] 0.6 mg/dL 0.2-1.3 [facility] 31 mmol/L High 22-30 [facility] 97 mmol/L Low 98-107 [facility] 1.55 mg/dL High 0.73-1.22 [facility] 157 mg/dL High 74-99 [facility] 135 mmol/L Low 136-144 [facility] 32 mg/dL High 9-24 [facility] 60 U/L 38-113 [facility] 8.3 mg/dL Low 8.5-10.2 [facility] 48 mL/min/1.73m??? Low >=60 [facility] Nucleated RBC Auto (Bld) [#/ Vol]on 09-23-2023 Nucleated RBC (Bld) [#/Vol] 10*3/uL <0.01 [facility] POTASSIUMon 09-23-2023 Potassium [Moles/Vol] 4.1 mmol/L Normal 3.7-5.1 [facility] Comment on above: Order Comment: Speci men Type: BLOOD SPECIMENOrdering Facility: [facility] Address: [address] [place] [address] Performed By: #### K 1 ####[facility] LABCLIA [id number] [place] [address] [place] PT panel Coag (PPP)on 2023 INR Coag (PPP) [Relative time] 1.4 {INR} High 0.9-1.3 [facility] Comment on above: Order Comment: Ricardo ignacio Type: BLOOD SPECIMENOrdering Facility: [facility] Address: [address] [place] [address] Result Comment: Silvia min K Antagonist (VKA) Therapeutic Range: INR 2 to 3 (Target INR of 2.5)Note: For patients treated with VKA drugs, such as warfarin, the [place] [employer] 2012 Guideline recommends a therapeutic INR range of 2 to 3 (target INR of 2.5). This recommendation includes high-risk patients with antiphospholipid syndrome with previous arterial or venous thromboembolism, current-generation mechanical or bioprosthetic aortic heart valve replacement.Note: Patients with mechanical aortic valve replacement and additional risk factors for thromboembolic events (atrial fibrillation, previous thromboembolism, LV dysfunction, hypercoagulable conditions) or an older generation mechanical AVR (i.e., ball in-Cage) or any mechanical MVR should have a INR therapeutic range of 2.5 to 3.5 (target INR of 3).Emery POLK, et al. Chest 2012, 141:7S-47SXiomy RA, et al. [facility] 2017, 70: 252-289 Performed By: #### 1 4979-9, 25730-9 ####[facility] LABCLIA [id number] [place] [id number] [place] PT Coag (PPP) [Time] 14.6 s High 9.7-13.0 [facility] Comment on above: Order Comment: Ricardo ignacio Type: BLOOD SPECIMENOrdering Facility: [facility] Address: [address] [place] [address] Performed By: #### 1 4979-9, 19110-9 ####[facility] LABCLIA [id number] [place] [address] [place] Platelet mean volume Auto (B ld) [Entitic vol]on 09-23-2023 Platelet mean volume (Bld) [Entitic vol] 11.5 fL 9.0-12.7 [facility] Platelets Auto (Bld) [#/Vol] on 09-23-2023 Platelets (Bld) [#/Vol] 104 10*3/uL Low 150-400 [facility] Protein [Mass/volume] in Ser um or Plasmaon 09-23-2023 Protein [Mass/Vol] 4.8 g/dL Low 6.3-8.0 [facility] Prothrombin time (PT)on 09-11 PT Coag (PPP) [Time] 14.6 s High 9.7-13.0 [facility] RBC Auto (Bld) [#/Vol]on RBC (Bld) [#/Vol] 3.04 10*6/uL Low 4.20-6.00 [facility] Serum or plasma anion gap de terminationon 09-23-2023 Anion gap [Moles/Vol] 7 mmol/L Low 8-15 [facility] THERAPY NTon 09-23-2023 THERAPY NT Normal [facility] XR CHEST 1V FRONTAL PORTon 0 09-23-2023 XR CHEST 1V FRONTAL PORT Normal [facility] aPTT PPPon 09-23-2023 aPTT Coag (PPP) [Time] 35.6 s High 23.0-32.4 [facility] Comment on above: Order Comment: Speci men Type: BLOOD SPECIMENOrdering Facility: [facility] Address: [address] [place] [address] Performed By: #### 1 4979-9, 67103-4 ####[facility] LABCLIA [id number] [place] [address] [place] ARTERIAL BLOOD GASESon 09-21 Base excess Calc (Bld) [Moles/Vol] 5 mmol/L High 0-2 [facility] Comment on above: Order Comment: Speci men Type: ARTERIAL BLOOD SPECIMENOrdering Facility: [facility] Address: [address] [place] [address] Performed By: #### A LLBG ####[facility] LABIA [id number] [place] [address] [place] Body temperature 98.6 [degF] Normal [facility] Comment on above: Order Comment: Speci men Type: ARTERIAL BLOOD SPECIMENOrdering Facility: [facility] Address: [address] [place] [address] Performed By: #### A LLBG ####[facility] LABIA [id number] [place] [address] [place] Calcium.ionized (Bld) [Mass/Vol] 1.24 mmol/L Normal 1.08-1.30 [facility] Comment on above: Order Comment: Speci men Type: ARTERIAL BLOOD SPECIMENOrdering Facility: [facility] Address: [address] [place] [address] Performed By: #### A LLBG ####[facility] [id number] [place] [address] [place] Calcium.ionized adjusted to pH 7.4 (BldA) [Moles/Vol] 1.23 mmol/L Normal 1.08-1.30 [facility] Comment on above: Order Comment: Speci men Type: ARTERIAL BLOOD SPECIMENOrdering Facility: [facility] Address: [address] [place] [address] Performed By: #### A LLBG ####[facility] LABIA [id number] [place] [address] [place] Carboxyhemoglobin (BldA) [Mass fraction] 1.3 % Normal 0.0-2.0 [facility] Comment on above: Order Comment: Speci men Type: ARTERIAL BLOOD SPECIMENOrdering Facility: [facility] Address: [address] [place] [address] Result Comment: Carb oxyhemoglobin Reference Range for Smokers: 2.0-8.0% Performed By: #### A LLBG ####[facility] LABCLIA [id number] [place] [address] [place] CO2 (Bld) [Partial pressure] 51 mm Hg High 36-46 [facility] Comment on above: Order Comment: Speci men Type: ARTERIAL BLOOD SPECIMENOrdering Facility: [facility] Address: [address] [place] [address] Performed By: #### A LLBG ####[facility] LABCLIA [id number] [place] [address] [place] Glucose [Mass/Vol] 167 mg/dL High 60-105 [facility] Comment on above: Order Comment: Speci men Type: ARTERIAL BLOOD SPECIMENOrdering Facility: [facility] Address: [address] [place] [address] Performed By: #### A LLBG ####[facility] LABCLIA [id number] [place] [address] [place] HCO3 (Bld) [Moles/Vol] 30 mmol/L High 22-26 [facility] Comment on above: Order Comment: Speci men Type: ARTERIAL BLOOD SPECIMENOrdering Facility: [facility] Address: [address] [place] [address] Performed By: #### A LLBG ####[facility] LABCLIA [id number] [place] [address] [place] Hematocrit (Bld) [Volume fraction] 27.1 % Low 39.0-51.0 [facility] Comment on above: Order Comment: Speci men Type: ARTERIAL BLOOD SPECIMENOrdering Facility: [facility] Address: [address] [place] [address] Performed By: #### A LLBG ####[facility] LABCLIA [id number] [place] [address] [place] Hemoglobin (Bld) [Mass/Vol] 8.7 g/dL Low 13.0-17.0 [facility] Comment on above: Order Comment: Speci men Type: ARTERIAL BLOOD SPECIMENOrdering Facility: [facility] Address: [address] [place] [address] Performed By: #### A LLBG ####[facility] LABCLIA [id number] [place] [address] [place] Lactate [Moles/Vol] 0.9 mmol/L Normal 0.5-2.2 [facility] Comment on above: Order Comment: Speci men Type: ARTERIAL BLOOD SPECIMENOrdering Facility: [facility] Address: [address] [place] [address] Performed By: #### A LLBG ####[facility] LABCLIA [id number] [place] [address] [place] LITERS 1 Liters/min Normal [facility] Comment on above: Order Comment: Speci men Type: ARTERIAL BLOOD SPECIMENOrdering Facility: [facility] Address: [address] [place] [address] Performed By: #### A LLBG ####[facility] LABCLIA [id number] [place] [address] [place] Methemoglobin (Bld) [Mass fraction] 1.8 % High 0.0-1.5 [facility] Comment on above: Order Comment: Speci men Type: ARTERIAL BLOOD SPECIMENOrdering Facility: [facility] Address: [address] [place] [address] Performed By: #### A LLBG ####[facility] LABCLIA [id number] [place] [address] [place] O2 THERAPY NC = Nasal Cannula Normal [facility] Comment on above: Order Comment: Speci men Type: ARTERIAL BLOOD SPECIMENOrdering Facility: [facility] Address: [address] [place] [address] Performed By: #### A LLBG ####[facility] LABCLIA [id number] [place] [address] [place] Oxygen (Bld) [Partial pressure] 107 mm Hg High 85-95 [facility] Comment on above: Order Comment: Speci men Type: ARTERIAL BLOOD SPECIMENOrdering Facility: [facility] Address: [address] [place] [address] Performed By: #### A LLBG ####[facility] LABIA [id number] [place] [address] [place] Oxyhemoglobin (BldA) [Mass fraction] 95 % Normal 95-98 [facility] Comment on above: Order Comment: Speci men Type: ARTERIAL BLOOD SPECIMENOrdering Facility: [facility] Address: [address] [place] [address] Performed By: #### A LLBG ####[facility] LABIA [id number] [place] [address] [place] pH (Bld) 7.39 [pH] Normal 7.35-7.45 [facility] Comment on above: Order Comment: Speci men Type: ARTERIAL BLOOD SPECIMENOrdering Facility: [facility] Address: [address] [place] [address] Performed By: #### A LLBG ####[facility] LABIA [id number] [place] [address] [place] Potassium [Moles/Vol] 4.4 mmol/L Normal 3.5-5.0 [facility] Comment on above: Order Comment: Speci men Type: ARTERIAL BLOOD SPECIMENOrdering Facility: [facility] Address: [address] [place] [address] Performed By: #### A LLBG ####[facility] LABIA [id number] [place] [address] [place] Sodium [Moles/Vol] 133 mmol/L Low 136-144 [facility] Comment on above: Order Comment: Speci men Type: ARTERIAL BLOOD SPECIMENOrdering Facility: [facility] Address: [address] [place] [address] Performed By: #### A LLBG ####[facility] LABCLIA [id number] [place] [address] [place] Base excess Calc (Bld) [Moles/Vol] 4 mmol/L High 0-2 [facility] Comment on above: Order Comment: Speci men Type: ARTERIAL BLOOD SPECIMENOrdering Facility: [facility] Address: [address] [place] [address] Performed By: #### A LLBG ####[facility] LABCLIA [id number] [place] [address] [place] Body temperature 98.6 [degF] Normal [facility] Comment on above: Order Comment: Speci men Type: ARTERIAL BLOOD SPECIMENOrdering Facility: [facility] Address: [address] [place] [address] Performed By: #### A LLBG ####[facility] LABCLIA [id number] [place] [address] [place] Calcium.ionized (Bld) [Mass/Vol] 1.23 mmol/L Normal 1.08-1.30 [facility] Comment on above: Order Comment: Speci men Type: ARTERIAL BLOOD SPECIMENOrdering Facility: [facility] Address: [address] [place] [address] Performed By: #### A LLBG ####[facility] LABCLIA [id number] [place] [address] [place] Calcium.ionized adjusted to pH 7.4 (BldA) [Moles/Vol] 1.22 mmol/L Normal 1.08-1.30 [facility] Comment on above: Order Comment: Speci men Type: ARTERIAL BLOOD SPECIMENOrdering Facility: [facility] Address: [address] [place] [address] Performed By: #### A LLBG ####[facility] LABCLIA [id number] [place] [address] [place] Carboxyhemoglobin (BldA) [Mass fraction] 1.9 % Normal 0.0-2.0 [facility] Comment on above: Order Comment: Speci men Type: ARTERIAL BLOOD SPECIMENOrdering Facility: [facility] Address: [address] [place] [address] Result Comment: Carb oxyhemoglobin Reference Range for Smokers: 2.0-8.0% Performed By: #### A LLBG ####[facility] LABIA [id number] [place] [address] [place] CO2 (Bld) [Partial pressure] 48 mm Hg High 36-46 [facility] Comment on above: Order Comment: Speci men Type: ARTERIAL BLOOD SPECIMENOrdering Facility: [facility] Address: [address] [place] [address] Performed By: #### A LLBG ####[facility] LABIA [id number] [place] [address] [place] Glucose [Mass/Vol] 184 mg/dL High 60-105 [facility] Comment on above: Order Comment: Speci men Type: ARTERIAL BLOOD SPECIMENOrdering Facility: [facility] Address: [address] [place] [address] Performed By: #### A LLBG ####[facility] LABIA [id number] [place] [address] [place] HCO3 (Bld) [Moles/Vol] 29 mmol/L High 22-26 [facility] Comment on above: Order Comment: Speci men Type: ARTERIAL BLOOD SPECIMENOrdering Facility: [facility] Address: [address] [place] [address] Performed By: #### A LLBG ####[facility] LABIA [id number] [place] [address] [place] Hematocrit (Bld) [Volume fraction] 27.8 % Low 39.0-51.0 [facility] Comment on above: Order Comment: Speci men Type: ARTERIAL BLOOD SPECIMENOrdering Facility: [facility] Address: [address] [place] [address] Performed By: #### A LLBG ####[facility] LABCLIA [id number] [place] [address] [place] Hemoglobin (Bld) [Mass/Vol] 9.0 g/dL Low 13.0-17.0 [facility] Comment on above: Order Comment: Speci men Type: ARTERIAL BLOOD SPECIMENOrdering Facility: [facility] Address: [address] [place] [address] Performed By: #### A LLBG ####[facility] LABIA [id number] [place] [address] [place] Lactate [Moles/Vol] 0.9 mmol/L Normal 0.5-2.2 [facility] Comment on above: Order Comment: Speci men Type: ARTERIAL BLOOD SPECIMENOrdering Facility: [facility] Address: [address] [place] [address] Performed By: #### A LLBG ####[facility] LABIA [id number] [place] [address] [place] LITERS 1 Liters/min Normal [facility] Comment on above: Order Comment: Speci men Type: ARTERIAL BLOOD SPECIMENOrdering Facility: [facility] Address: [address] [place] [address] Performed By: #### A LLBG ####[facility] LABCLIA [id number] [place] [address] [place] Methemoglobin (Bld) [Mass fraction] 1.3 % Normal 0.0-1.5 [facility] Comment on above: Order Comment: Speci men Type: ARTERIAL BLOOD SPECIMENOrdering Facility: [facility] Address: [address] [place] [address] Performed By: #### A LLBG ####[facility] LABCLIA [id number] [place] [address] [place] O2 THERAPY NC = Nasal Cannula Normal [facility] Comment on above: Order Comment: Speci men Type: ARTERIAL BLOOD SPECIMENOrdering Facility: [facility] Address: [address] [place] [address] Performed By: #### A LLBG ####[facility] LABCLIA [id number] [place] [address] [place] Oxygen (Bld) [Partial pressure] 131 mm Hg High 85-95 [facility] Comment on above: Order Comment: Speci men Type: ARTERIAL BLOOD SPECIMENOrdering Facility: [facility] Address: [address] [place] [address] Performed By: #### A LLBG ####[facility] LABCLIA [id number] [place] [address] [place] Oxyhemoglobin (BldA) [Mass fraction] 96 % Normal 95-98 [facility] Comment on above: Order Comment: Speci men Type: ARTERIAL BLOOD SPECIMENOrdering Facility: [facility] Address: [address] [place] [address] Performed By: #### A LLBG ####[facility] LABIA [id number] [place] [address] [place] pH (Bld) 7.39 [pH] Normal 7.35-7.45 [facility] Comment on above: Order Comment: Speci men Type: ARTERIAL BLOOD SPECIMENOrdering Facility: [facility] Address: [address] [place] [address] Performed By: #### A LLBG ####[facility] LABCLIA [id number] [place] [address] [place] Potassium [Moles/Vol] 4.6 mmol/L Normal 3.5-5.0 [facility] Comment on above: Order Comment: Speci men Type: ARTERIAL BLOOD SPECIMENOrdering Facility: [facility] Address: [address] [place] [address] Performed By: #### A LLBG ####[facility] LABCLIA [id number] [place] [address] [place] Sodium [Moles/Vol] 134 mmol/L Low 136-144 [facility] Comment on above: Order Comment: Speci men Type: ARTERIAL BLOOD SPECIMENOrdering Facility: [facility] Address: [address] [place] [address] Performed By: #### A LLBG ####[facility] LABCLIA [id number] [place] [address] [place] Base excess Calc (Bld) [Moles/Vol] 6 mmol/L High 0-2 [facility] Comment on above: Order Comment: Speci men Type: ARTERIAL BLOOD SPECIMENOrdering Facility: [facility] Address: [address] [place] [address] Performed By: #### A LLBG ####[facility] LABIA [id number] [place] [address] [place] Body temperature 98.6 [degF] Normal [facility] Comment on above: Order Comment: Speci men Type: ARTERIAL BLOOD SPECIMENOrdering Facility: [facility] Address: [address] [place] [address] Performed By: #### A LLBG ####[facility] LABCLIA [id number] [place] [address] [place] Calcium.ionized (Bld) [Mass/Vol] 1.18 mmol/L Normal 1.08-1.30 [facility] Comment on above: Order Comment: Speci men Type: ARTERIAL BLOOD SPECIMENOrdering Facility: [facility] Address: [address] [place] [address] Performed By: #### A LLBG ####[facility] LABCLIA [id number] [place] [address] [place] Calcium.ionized adjusted to pH 7.4 (BldA) [Moles/Vol] 1.18 mmol/L Normal 1.08-1.30 [facility] Comment on above: Order Comment: Speci men Type: ARTERIAL BLOOD SPECIMENOrdering Facility: [facility] Address: [address] [place] [address] Performed By: #### A LLBG ####[facility] LABCLIA [id number] [place] [address] [place] Carboxyhemoglobin (BldA) [Mass fraction] 2.1 % High 0.0-2.0 [facility] Comment on above: Order Comment: Speci men Type: ARTERIAL BLOOD SPECIMENOrdering Facility: [facility] Address: [address] [place] [address] Result Comment: Carb oxyhemoglobin Reference Range for Smokers: 2.0-8.0% Performed By: #### A LLBG ####[facility] LABCLIA [id number] [place] [address] [place] CO2 (Bld) [Partial pressure] 50 mm Hg High 36-46 [facility] Comment on above: Order Comment: Speci men Type: ARTERIAL BLOOD SPECIMENOrdering Facility: [facility] Address: [address] [place] [address] Performed By: #### A LLBG ####[facility] LABCLIA [id number] [place] [address] [place] Glucose [Mass/Vol] 85 mg/dL Normal 60-105 [facility] Comment on above: Order Comment: Speci men Type: ARTERIAL BLOOD SPECIMENOrdering Facility: [facility] Address: [address] [place] [address] Performed By: #### A LLBG ####[facility] LABCLIA [id number] [place] [address] [place] HCO3 (Bld) [Moles/Vol] 31 mmol/L High 22-26 [facility] Comment on above: Order Comment: Speci men Type: ARTERIAL BLOOD SPECIMENOrdering Facility: [facility] Address: [address] [place] [address] Performed By: #### A LLBG ####[facility] LABIA [id number] [place] [address] [place] Hematocrit (Bld) [Volume fraction] 27.2 % Low 39.0-51.0 [facility] Comment on above: Order Comment: Speci men Type: ARTERIAL BLOOD SPECIMENOrdering Facility: [facility] Address: [address] [place] [address] Performed By: #### A LLBG ####[facility] LABIA [id number] [place] [address] [place] Hemoglobin (Bld) [Mass/Vol] 8.8 g/dL Low 13.0-17.0 [facility] Comment on above: Order Comment: Speci men Type: ARTERIAL BLOOD SPECIMENOrdering Facility: [facility] Address: [address] [place] [address] Performed By: #### A LLBG ####[facility] LABIA [id number] [place] [address] [place] Lactate [Moles/Vol] 1.1 mmol/L Normal 0.5-2.2 [facility] Comment on above: Order Comment: Speci men Type: ARTERIAL BLOOD SPECIMENOrdering Facility: [facility] Address: [address] [place] [address] Performed By: #### A LLBG ####[facility] LABIA [id number] [place] [address] [place] Methemoglobin (Bld) [Mass fraction] 1.0 % Normal 0.0-1.5 [facility] Comment on above: Order Comment: Speci men Type: ARTERIAL BLOOD SPECIMENOrdering Facility: [facility] Address: [address] [place] [address] Performed By: #### A LLBG ####[facility] LABCLIA [id number] [place] [address] [place] O2 THERAPY NC = Nasal Cannula Normal [facility] Comment on above: Order Comment: Speci men Type: ARTERIAL BLOOD SPECIMENOrdering Facility: [facility] Address: [address] [place] [address] Performed By: #### A LLBG ####[facility] LABCLIA [id number] [place] [address] [place] Oxygen (Bld) [Partial pressure] 132 mm Hg High 85-95 [facility] Comment on above: Order Comment: Speci men Type: ARTERIAL BLOOD SPECIMENOrdering Facility: [facility] Address: [address] [place] [address] Performed By: #### A LLBG ####[facility] LABCLIA [id number] [place] [address] [place] Oxyhemoglobin (BldA) [Mass fraction] 97 % Normal 95-98 [facility] Comment on above: Order Comment: Speci men Type: ARTERIAL BLOOD SPECIMENOrdering Facility: [facility] Address: [address] [place] [address] Performed By: #### A LLBG ####[facility] LABCLIA [id number] [place] [address] [place] pH (Bld) 7.40 [pH] Normal 7.35-7.45 [facility] Comment on above: Order Comment: Speci men Type: ARTERIAL BLOOD SPECIMENOrdering Facility: [facility] Address: [address] [place] [address] Performed By: #### A LLBG ####[facility] LABCLIA [id number] [place] [address] [place] Potassium [Moles/Vol] 4.0 mmol/L Normal 3.5-5.0 [facility] Comment on above: Order Comment: Speci men Type: ARTERIAL BLOOD SPECIMENOrdering Facility: [facility] Address: [address] [place] [address] Performed By: #### A LLBG ####[facility] LABCLIA [id number] [place] [address] [place] Sodium [Moles/Vol] 133 mmol/L Low 136-144 [facility] Comment on above: Order Comment: Speci men Type: ARTERIAL BLOOD SPECIMENOrdering Facility: [facility] Address: [address] [place] [address] Performed By: #### A LLBG ####[facility] LABCLIA [id number] [place] [address] [place] Base excess Calc (Bld) [Moles/Vol] 5 mmol/L High 0-2 [facility] Comment on above: Order Comment: Speci men Type: ARTERIAL BLOOD SPECIMENOrdering Facility: [facility] Address: [address] [place] [address] Performed By: #### A LLBG ####[facility] LABCLIA [id number] [place] [address] [place] Body temperature 98.6 [degF] Normal [facility] Comment on above: Order Comment: Speci men Type: ARTERIAL BLOOD SPECIMENOrdering Facility: [facility] Address: [address] [place] [address] Performed By: #### A LLBG ####[facility] LABCLIA [id number] [place] [address] [place] Calcium.ionized (Bld) [Mass/Vol] 1.22 mmol/L Normal 1.08-1.30 [facility] Comment on above: Order Comment: Speci men Type: ARTERIAL BLOOD SPECIMENOrdering Facility: [facility] Address: [address] [place] [address] Performed By: #### A LLBG ####[facility] LABCLIA [id number] [place] [address] [place] Calcium.ionized adjusted to pH 7.4 (BldA) [Moles/Vol] 1.22 mmol/L Normal 1.08-1.30 [facility] Comment on above: Order Comment: Speci men Type: ARTERIAL BLOOD SPECIMENOrdering Facility: [facility] Address: [address] [place] [address] Performed By: #### A LLBG ####[facility] [id number] [place] [address] [place] Carboxyhemoglobin (BldA) [Mass fraction] 1.5 % Normal 0.0-2.0 [facility] Comment on above: Order Comment: Speci men Type: ARTERIAL BLOOD SPECIMENOrdering Facility: [facility] Address: [address] [place] [address] Result Comment: Carb oxyhemoglobin Reference Range for Smokers: 2.0-8.0% Performed By: #### A LLBG ####[facility] [id number] [place] [address] [place] CO2 (Bld) [Partial pressure] 51 mm Hg High 36-46 [facility] Comment on above: Order Comment: Speci men Type: ARTERIAL BLOOD SPECIMENOrdering Facility: [facility] Address: [address] [place] [address] Performed By: #### A LLBG ####[facility] [id number] [place] [address] [place] Glucose [Mass/Vol] 97 mg/dL Normal 60-105 [facility] Comment on above: Order Comment: Speci men Type: ARTERIAL BLOOD SPECIMENOrdering Facility: [facility] Address: [address] [place] [address] Performed By: #### A LLBG ####[facility] [id number] [place] [address] [place] HCO3 (Bld) [Moles/Vol] 31 mmol/L High 22-26 [facility] Comment on above: Order Comment: Speci men Type: ARTERIAL BLOOD SPECIMENOrdering Facility: [facility] Address: [address] [place] [address] Performed By: #### A LLBG ####[facility] LABCLIA [id number] [place] [address] [place] Hematocrit (Bld) [Volume fraction] 26.7 % Low 39.0-51.0 [facility] Comment on above: Order Comment: Speci men Type: ARTERIAL BLOOD SPECIMENOrdering Facility: [facility] Address: [address] [place] [address] Performed By: #### A LLBG ####[facility] LABIA [id number] [place] [address] [place] Hemoglobin (Bld) [Mass/Vol] 8.6 g/dL Low 13.0-17.0 [facility] Comment on above: Order Comment: Speci men Type: ARTERIAL BLOOD SPECIMENOrdering Facility: [facility] Address: [address] [place] [address] Performed By: #### A LLBG ####[facility] LABIA [id number] [place] [address] [place] Lactate [Moles/Vol] 1.1 mmol/L Normal 0.5-2.2 [facility] Comment on above: Order Comment: Speci men Type: ARTERIAL BLOOD SPECIMENOrdering Facility: [facility] Address: [address] [place] [address] Performed By: #### A LLBG ####[facility] LABIA [id number] [place] [address] [place] LITERS 1 Liters/min Normal [facility] Comment on above: Order Comment: Speci men Type: ARTERIAL BLOOD SPECIMENOrdering Facility: [facility] Address: [address] [place] [address] Performed By: #### A LLBG ####[facility] LABCLIA [id number] [place] [address] [place] Methemoglobin (Bld) [Mass fraction] 2.1 % High 0.0-1.5 [facility] Comment on above: Order Comment: Speci men Type: ARTERIAL BLOOD SPECIMENOrdering Facility: [facility] Address: [address] [place] [address] Performed By: #### A LLBG ####[facility] LABCLIA [id number] [place] [address] [place] O2 THERAPY NC = Nasal Cannula Normal [facility] Comment on above: Order Comment: Speci men Type: ARTERIAL BLOOD SPECIMENOrdering Facility: [facility] Address: [address] [place] [address] Performed By: #### A LLBG ####[facility] LABIA [id number] [place] [address] [place] Oxygen (Bld) [Partial pressure] 152 mm Hg High 85-95 [facility] Comment on above: Order Comment: Speci men Type: ARTERIAL BLOOD SPECIMENOrdering Facility: [facility] Address: [address] [place] [address] Performed By: #### A LLBG ####[facility] LABIA [id number] [place] [address] [place] Oxyhemoglobin (BldA) [Mass fraction] 96 % Normal 95-98 [facility] Comment on above: Order Comment: Speci men Type: ARTERIAL BLOOD SPECIMENOrdering Facility: [facility] Address: [address] [place], [place] [id number] Performed By: #### A LLBG ####[facility] LABCLIA [id number] [place] [id number] [place] pH (Bld) 7.40 [pH] Normal 7.35-7.45 [facility] Comment on above: Order Comment: Speci men Type: ARTERIAL BLOOD SPECIMENOrdering Facility: [facility] Address: [address] [place] [id number] Performed By: #### A LLBG ####[facility] LABCLIA [id number] [place] [address] [place] Potassium [Moles/Vol] 4.2 mmol/L Normal 3.5-5.0 [facility] Comment on above: Order Comment: Speci men Type: ARTERIAL BLOOD SPECIMENOrdering Facility: [facility] Address: [address] [place] [address] Performed By: #### A LLBG ####[facility] LABCLIA [id number] [place] [address] [place] Sodium [Moles/Vol] 137 mmol/L Normal 136-144 [facility] Comment on above: Order Comment: Speci men Type: ARTERIAL BLOOD SPECIMENOrdering Facility: [facility] Address: [address] [place] [address] Performed By: #### A LLBG ####[facility] LABCLIA [id number] [place] [address] [place] Base excess Calc (Bld) [Moles/Vol] 5 mmol/L High 0-2 [facility] Comment on above: Order Comment: Speci men Type: ARTERIAL BLOOD SPECIMENOrdering Facility: [facility] Address: [address] [place], [place] [id number] Performed By: #### A LLBG ####[facility] LABCLIA [id number] [place] [address] [place] Body temperature 98.6 [degF] Normal [facility] Comment on above: Order Comment: Speci men Type: ARTERIAL BLOOD SPECIMENOrdering Facility: [facility] Address: [address] [place], [place] [id number] Performed By: #### A LLBG ####[facility] LABCLIA [id number] [place] [address] [place] Calcium.ionized (Bld) [Mass/Vol] 1.22 mmol/L Normal 1.08-1.30 [facility] Comment on above: Order Comment: Speci men Type: ARTERIAL BLOOD SPECIMENOrdering Facility: [facility] Address: [address] [place] [address] Performed By: #### A LLBG ####[facility] LABCLIA [id number] [place] [address] [place] Calcium.ionized adjusted to pH 7.4 (BldA) [Moles/Vol] 1.21 mmol/L Normal 1.08-1.30 [facility] Comment on above: Order Comment: Speci men Type: ARTERIAL BLOOD SPECIMENOrdering Facility: [facility] Address: [address] [place] [address] Performed By: #### A LLBG ####[facility] LABIA [id number] [place] [address] [place] Carboxyhemoglobin (BldA) [Mass fraction] 1.5 % Normal 0.0-2.0 [facility] Comment on above: Order Comment: Speci men Type: ARTERIAL BLOOD SPECIMENOrdering Facility: [facility] Address: [address] [place] [address] Result Comment: Carb oxyhemoglobin Reference Range for Smokers: 2.0-8.0% Performed By: #### A LLBG ####[facility] LABCLIA [id number] [place] [address] [place] CO2 (Bld) [Partial pressure] 51 mm Hg High 36-46 [facility] Comment on above: Order Comment: Speci men Type: ARTERIAL BLOOD SPECIMENOrdering Facility: [facility] Address: [address] [place] [address] Performed By: #### A LLBG ####[facility] LABCLIA [id number] [place] [address] [place] Glucose [Mass/Vol] 166 mg/dL High 60-105 [facility] Comment on above: Order Comment: Speci men Type: ARTERIAL BLOOD SPECIMENOrdering Facility: [facility] Address: [address] [place] [address] Performed By: #### A LLBG ####[facility] LABCLIA [id number] [place] [address] [place] HCO3 (Bld) [Moles/Vol] 30 mmol/L High 22-26 [facility] Comment on above: Order Comment: Speci men Type: ARTERIAL BLOOD SPECIMENOrdering Facility: [facility] Address: [address] [place] [address] Performed By: #### A LLBG ####[facility] LABCLIA [id number] [place] [address] [place] Hematocrit (Bld) [Volume fraction] 25.9 % Low 39.0-51.0 [facility] Comment on above: Order Comment: Speci men Type: ARTERIAL BLOOD SPECIMENOrdering Facility: [facility] Address: [address] [place] [address] Performed By: #### A LLBG ####[facility] LABCLIA [id number] [place] [address] [place] Hemoglobin (Bld) [Mass/Vol] 8.3 g/dL Low 13.0-17.0 [facility] Comment on above: Order Comment: Speci men Type: ARTERIAL BLOOD SPECIMENOrdering Facility: [facility] Address: [address] [place] [address] Performed By: #### A LLBG ####[facility] LABCLIA [id number] [place] [address] [place] Lactate [Moles/Vol] 0.8 mmol/L Normal 0.5-2.2 [facility] Comment on above: Order Comment: Speci men Type: ARTERIAL BLOOD SPECIMENOrdering Facility: [facility] Address: [address] [place] [address] Performed By: #### A LLBG ####[facility] LABCLIA [id number] [place] [address] [place] LITERS 1 Liters/min Normal [facility] Comment on above: Order Comment: Speci men Type: ARTERIAL BLOOD SPECIMENOrdering Facility: [facility] Address: [address] [place] [address] Performed By: #### A LLBG ####[facility] LABCLIA [id number] [place] [address] [place] Methemoglobin (Bld) [Mass fraction] 0.9 % Normal 0.0-1.5 [facility] Comment on above: Order Comment: Speci men Type: ARTERIAL BLOOD SPECIMENOrdering Facility: [facility] Address: [address] [place] [address] Performed By: #### A LLBG ####[facility] LABCLIA [id number] [place] [address] [place] O2 THERAPY NC = Nasal Cannula Normal [facility] Comment on above: Order Comment: Speci men Type: ARTERIAL BLOOD SPECIMENOrdering Facility: [facility] Address: [address] [place], [place] [id number] Performed By: #### A LLBG ####[facility] LABCLIA [id number] [place] [id number] [place] Oxygen (Bld) [Partial pressure] 139 mm Hg High 85-95 [facility] Comment on above: Order Comment: Speci men Type: ARTERIAL BLOOD SPECIMENOrdering Facility: [facility] Address: [address] [place], [place] [id number] Performed By: #### A LLBG ####[facility] LABCLIA [id number] [address] [address] [place] Oxyhemoglobin (BldA) [Mass fraction] 98 % Normal 95-98 [facility] Comment on above: Order Comment: Speci men Type: ARTERIAL BLOOD SPECIMENOrdering Facility: [facility] Address: [address] [place] [address] Performed By: #### A LLBG ####[facility] LABCLIA [id number] [place] [address] [place] pH (Bld) 7.39 [pH] Normal 7.35-7.45 [facility] Comment on above: Order Comment: Speci men Type: ARTERIAL BLOOD SPECIMENOrdering Facility: [facility] Address: [address] [place] [address] Performed By: #### A LLBG ####[facility] LABCLIA [id number] [place] [address] [place] Potassium [Moles/Vol] 4.2 mmol/L Normal 3.5-5.0 [facility] Comment on above: Order Comment: Speci men Type: ARTERIAL BLOOD SPECIMENOrdering Facility: [facility] Address: [address] [place] [address] Performed By: #### A LLBG ####[facility] LABCLIA [id number] [place] [address] [place] Sodium [Moles/Vol] 135 mmol/L Low 136-144 [facility] Comment on above: Order Comment: Speci men Type: ARTERIAL BLOOD SPECIMENOrdering Facility: [facility] Address: [address] [place] [address] Performed By: #### A LLBG ####[facility] LABCLIA [id number] [place] [address] [place] Base excess Calc (Bld) [Moles/Vol] 4 mmol/L High 0-2 [facility] Comment on above: Order Comment: Speci men Type: ARTERIAL BLOOD SPECIMENOrdering Facility: [facility] Address: [address] [place], [place] [id number] Performed By: #### A LLBG ####[facility] LABCLIA [id number] [place] [address] [place] Body temperature 98.6 [degF] Normal [facility] Comment on above: Order Comment: Speci men Type: ARTERIAL BLOOD SPECIMENOrdering Facility: [facility] Address: [address] [place] [address] Performed By: #### A LLBG ####[facility] LABCLIA [id number] [place] [address] [place] Calcium.ionized (Bld) [Mass/Vol] 1.22 mmol/L Normal 1.08-1.30 [facility] Comment on above: Order Comment: Speci men Type: ARTERIAL BLOOD SPECIMENOrdering Facility: [facility] Address: [address] [place] [address] Performed By: #### A LLBG ####[facility] LABIA [id number] [place] [address] [place] Calcium.ionized adjusted to pH 7.4 (BldA) [Moles/Vol] 1.20 mmol/L Normal 1.08-1.30 [facility] Comment on above: Order Comment: Speci men Type: ARTERIAL BLOOD SPECIMENOrdering Facility: [facility] Address: [address] [place] [address] Performed By: #### A LLBG ####[facility] LABIA [id number] [place] [address] [place] Carboxyhemoglobin (BldA) [Mass fraction] 1.7 % Normal 0.0-2.0 [facility] Comment on above: Order Comment: Speci men Type: ARTERIAL BLOOD SPECIMENOrdering Facility: [facility] Address: [address] [place] [address] Result Comment: Carb oxyhemoglobin Reference Range for Smokers: 2.0-8.0% Performed By: #### A LLBG ####[facility] LABIA [id number] [place] [address] [place] CO2 (Bld) [Partial pressure] 51 mm Hg High 36-46 [facility] Comment on above: Order Comment: Speci men Type: ARTERIAL BLOOD SPECIMENOrdering Facility: [facility] Address: [address] [place] [address] Performed By: #### A LLBG ####[facility] LABCLIA [id number] [place] [address] [place] Glucose [Mass/Vol] 205 mg/dL High 60-105 [facility] Comment on above: Order Comment: Speci men Type: ARTERIAL BLOOD SPECIMENOrdering Facility: [facility] Address: [address] [place] [address] Performed By: #### A LLBG ####[facility] LABCLIA [id number] [place] [address] [place] HCO3 (Bld) [Moles/Vol] 29 mmol/L High 22-26 [facility] Comment on above: Order Comment: Speci men Type: ARTERIAL BLOOD SPECIMENOrdering Facility: [facility] Address: [address] [place] [address] Performed By: #### A LLBG ####[facility] LABCLIA [id number] [place] [address] [place] Hematocrit (Bld) [Volume fraction] 25.7 % Low 39.0-51.0 [facility] Comment on above: Order Comment: Speci men Type: ARTERIAL BLOOD SPECIMENOrdering Facility: [facility] Address: [address] [place] [address] Performed By: #### A LLBG ####[facility] LABCLIA [id number] [place] [address] [place] Hemoglobin (Bld) [Mass/Vol] 8.2 g/dL Low 13.0-17.0 [facility] Comment on above: Order Comment: Speci men Type: ARTERIAL BLOOD SPECIMENOrdering Facility: [facility] Address: [address] [place] [address] Performed By: #### A LLBG ####[facility] LABCLIA [id number] [place] [address] [place] Lactate [Moles/Vol] 0.8 mmol/L Normal 0.5-2.2 [facility] Comment on above: Order Comment: Speci men Type: ARTERIAL BLOOD SPECIMENOrdering Facility: [facility] Address: [address] [place] [address] Performed By: #### A LLBG ####[facility] LABIA [id number] [place] [address] [place] LITERS 1 Liters/min Normal [facility] Comment on above: Order Comment: Speci men Type: ARTERIAL BLOOD SPECIMENOrdering Facility: [facility] Address: [address] [place] [address] Performed By: #### A LLBG ####[facility] LABIA [id number] [place] [address] [place] Methemoglobin (Bld) [Mass fraction] 1.4 % Normal 0.0-1.5 [facility] Comment on above: Order Comment: Speci men Type: ARTERIAL BLOOD SPECIMENOrdering Facility: [facility] Address: [address] [place] [address] Performed By: #### A LLBG ####[facility] LABCLIA [id number] [place] [address] [place] O2 THERAPY NC = Nasal Cannula Normal [facility] Comment on above: Order Comment: Speci men Type: ARTERIAL BLOOD SPECIMENOrdering Facility: [facility] Address: [address] [place] [address] Performed By: #### A LLBG ####[facility] LABCLIA [id number] [place] [address] [place] Oxygen (Bld) [Partial pressure] 120 mm Hg High 85-95 [facility] Comment on above: Order Comment: Speci men Type: ARTERIAL BLOOD SPECIMENOrdering Facility: [facility] Address: [address] [place] [address] Performed By: #### A LLBG ####[facility] LABCLIA [id number] [place] [address] [place] Oxyhemoglobin (BldA) [Mass fraction] 96 % Normal 95-98 [facility] Comment on above: Order Comment: Speci men Type: ARTERIAL BLOOD SPECIMENOrdering Facility: [facility] Address: [address] [place] [address] Performed By: #### A LLBG ####[facility] LABIA [id number] [place] [address] [place] pH (Bld) 7.37 [pH] Normal 7.35-7.45 [facility] Comment on above: Order Comment: Speci men Type: ARTERIAL BLOOD SPECIMENOrdering Facility: [facility] Address: [address] [place] [address] Performed By: #### A LLBG ####[facility] LABCLIA [id number] [place] [address] [place] Potassium [Moles/Vol] 4.5 mmol/L Normal 3.5-5.0 [facility] Comment on above: Order Comment: Speci men Type: ARTERIAL BLOOD SPECIMENOrdering Facility: [facility] Address: [address] [place] [address] Performed By: #### A LLBG ####[facility] LABCLIA [id number] [place] [address] [place] Sodium [Moles/Vol] 134 mmol/L Low 136-144 [facility] Comment on above: Order Comment: Speci men Type: ARTERIAL BLOOD SPECIMENOrdering Facility: [facility] Address: [address] [place] [address] Performed By: #### A LLBG ####[facility] LABCLIA [id number] [place] [address] [place] Base excess Calc (Bld) [Moles/Vol] 4 mmol/L High 0-2 [facility] Comment on above: Order Comment: Speci men Type: ARTERIAL BLOOD SPECIMENOrdering Facility: [facility] Address: [address] [place] [address] Performed By: #### A LLBG ####[facility] [id number] [place] [address] [place] Body temperature 98.6 [degF] Normal [facility] Comment on above: Order Comment: Speci men Type: ARTERIAL BLOOD SPECIMENOrdering Facility: [facility] Address: [address] [place] [address] Performed By: #### A LLBG ####[facility] [id number] [place] [address] [place] Calcium.ionized (Bld) [Mass/Vol] 1.19 mmol/L Normal 1.08-1.30 [facility] Comment on above: Order Comment: Speci men Type: ARTERIAL BLOOD SPECIMENOrdering Facility: [facility] Address: [address] [place] [address] Performed By: #### A LLBG ####[facility] [id number] [place] [address] [place] Calcium.ionized adjusted to pH 7.4 (BldA) [Moles/Vol] 1.19 mmol/L Normal 1.08-1.30 [facility] Comment on above: Order Comment: Speci men Type: ARTERIAL BLOOD SPECIMENOrdering Facility: [facility] Address: [address] [place] [address] Performed By: #### A LLBG ####[facility] [id number] [place] [address] [place] Carboxyhemoglobin (BldA) [Mass fraction] 1.6 % Normal 0.0-2.0 [facility] Comment on above: Order Comment: Speci men Type: ARTERIAL BLOOD SPECIMENOrdering Facility: [facility] Address: [address] [place] [address] Result Comment: Carb oxyhemoglobin Reference Range for Smokers: 2.0-8.0% Performed By: #### A LLBG ####[facility] LABCLIA [id number] [place] [address] [place] CO2 (Bld) [Partial pressure] 47 mm Hg High 36-46 [facility] Comment on above: Order Comment: Speci men Type: ARTERIAL BLOOD SPECIMENOrdering Facility: [facility] Address: [address] [place] [address] Performed By: #### A LLBG ####[facility] LABCLIA [id number] [place] [address] [place] Glucose [Mass/Vol] 220 mg/dL High 60-105 [facility] Comment on above: Order Comment: Speci men Type: ARTERIAL BLOOD SPECIMENOrdering Facility: [facility] Address: [address] [place] [address] Performed By: #### A LLBG ####[facility] LABCLIA [id number] [place] [address] [place] HCO3 (Bld) [Moles/Vol] 29 mmol/L High 22-26 [facility] Comment on above: Order Comment: Speci men Type: ARTERIAL BLOOD SPECIMENOrdering Facility: [facility] Address: [address] [place] [address] Performed By: #### A LLBG ####[facility] LABCLIA [id number] [place] [address] [place] Hematocrit (Bld) [Volume fraction] 26.2 % Low 39.0-51.0 [facility] Comment on above: Order Comment: Speci men Type: ARTERIAL BLOOD SPECIMENOrdering Facility: [facility] Address: [address] [place] [address] Performed By: #### A LLBG ####[facility] LABCLIA [id number] [place] [address] [place] Hemoglobin (Bld) [Mass/Vol] 8.4 g/dL Low 13.0-17.0 [facility] Comment on above: Order Comment: Speci men Type: ARTERIAL BLOOD SPECIMENOrdering Facility: [facility] Address: [address] [place] [address] Performed By: #### A LLBG ####[facility] LABCLIA [id number] [place] [address] [place] Lactate [Moles/Vol] 1.4 mmol/L Normal 0.5-2.2 [facility] Comment on above: Order Comment: Speci men Type: ARTERIAL BLOOD SPECIMENOrdering Facility: [facility] Address: [address] [place] [address] Performed By: #### A LLBG ####[facility] LABCLIA [id number] [place] [address] [place] LITERS 1 Liters/min Normal [facility] Comment on above: Order Comment: Speci men Type: ARTERIAL BLOOD SPECIMENOrdering Facility: [facility] Address: [address] [place] [address] Performed By: #### A LLBG ####[facility] LABCLIA [id number] [place] [address] [place] Methemoglobin (Bld) [Mass fraction] 1.1 % Normal 0.0-1.5 [facility] Comment on above: Order Comment: Speci men Type: ARTERIAL BLOOD SPECIMENOrdering Facility: [facility] Address: [address] [place] [address] Performed By: #### A LLBG ####[facility] LABCLIA [id number] [place] [address] [place] O2 THERAPY NC = Nasal Cannula Normal [facility] Comment on above: Order Comment: Speci men Type: ARTERIAL BLOOD SPECIMENOrdering Facility: [facility] Address: [address] [place] [address] Performed By: #### A LLBG ####[facility] LABCLIA [id number] [place] [address] [place] Oxygen (Bld) [Partial pressure] 82 mm Hg Low 85-95 [facility] Comment on above: Order Comment: Speci men Type: ARTERIAL BLOOD SPECIMENOrdering Facility: [facility] Address: [address] [place] [address] Performed By: #### A LLBG ####[facility] LABCLIA [id number] [place] [address] [place] Oxyhemoglobin (BldA) [Mass fraction] 94 % Low 95-98 [facility] Comment on above: Order Comment: Speci men Type: ARTERIAL BLOOD SPECIMENOrdering Facility: [facility] Address: [address] [place] [address] Performed By: #### A LLBG ####[facility] LABCLIA [id number] [place] [address] [place] pH (Bld) 7.40 [pH] Normal 7.35-7.45 [facility] Comment on above: Order Comment: Speci men Type: ARTERIAL BLOOD SPECIMENOrdering Facility: [facility] Address: [address] [place] [address] Performed By: #### A LLBG ####[facility] LABCLIA [id number] [place] [address] [place] Potassium [Moles/Vol] 5.0 mmol/L Normal 3.5-5.0 [facility] Comment on above: Order Comment: Speci men Type: ARTERIAL BLOOD SPECIMENOrdering Facility: [facility] Address: [address] [place] [address] Performed By: #### A LLBG ####[facility] LABCLIA [id number] [place] [address] [place] Sodium [Moles/Vol] 133 mmol/L Low 136-144 [facility] Comment on above: Order Comment: Speci men Type: ARTERIAL BLOOD SPECIMENOrdering Facility: [facility] Address: [address] [place] [address] Performed By: #### A LLBG ####[facility] LABCLIA [id number] [place] [address] [place] CASE MANAGEMon 09-22-2023 CASE MANAGEM Normal [facility] CBC panel Auto (Bld)on 09-21 Erythrocyte distribution width (RBC) [Ratio] 16.3 % High 11.5-15.0 [facility] Comment on above: Order Comment: Speci men Type: BLOOD SPECIMENOrdering Facility: [facility] Address: [address] [place] [address] Performed By: #### 5 8410-2 ####[facility] LABIA [id number] [place] [address] [place] Hematocrit (Bld) [Volume fraction] 24.4 % Low 39.0-51.0 [facility] Comment on above: Order Comment: Speci men Type: BLOOD SPECIMENOrdering Facility: [facility] Address: [address] [place] [address] Performed By: #### 5 8410-2 ####[facility] LABCLIA [id number] [place] [id number] [place] Hemoglobin (Bld) [Mass/Vol] 8.5 g/dL Low 13.0-17.0 [facility] Comment on above: Order Comment: Speci men Type: BLOOD SPECIMENOrdering Facility: [facility] Address: [address] [place] [address] Performed By: #### 5 8410-2 ####[facility] LABCLIA [id number] [place] [address] [place] MCH (RBC) [Entitic mass] 30.2 pg Normal 26.0-34.0 [facility] Comment on above: Order Comment: Speci men Type: BLOOD SPECIMENOrdering Facility: [facility] Address: [address] [place] [address] Performed By: #### 5 8410-2 ####[facility] LABCLIA [id number] [place] [address] [place] MCHC (RBC) [Mass/Vol] 34.8 g/dL Normal 30.5-36.0 [facility] Comment on above: Order Comment: Speci men Type: BLOOD SPECIMENOrdering Facility: [facility] Address: [address] [place] [address] Performed By: #### 5 8410-2 ####[facility] LABCLIA [id number] [place] [address] [place] MCV (RBC) [Entitic vol] 86.8 fL Normal 80.0-100.0 [facility] Comment on above: Order Comment: Speci men Type: BLOOD SPECIMENOrdering Facility: [facility] Address: [address] [place] [address] Performed By: #### 5 8410-2 ####[facility] LABIA [id number] [place] [address] [place] Nucleated RBC (Bld) [#/Vol] 10*3/uL Normal <0.01 [facility] Comment on above: Order Comment: Speci men Type: BLOOD SPECIMENOrdering Facility: [facility] Address: [address] [place] [address] Performed By: #### 5 8410-2 ####[facility] LABCLIA [id number] [place] [address] [place] Platelet mean volume (Bld) [Entitic vol] 11.5 fL Normal 9.0-12.7 [facility] Comment on above: Order Comment: Speci men Type: BLOOD SPECIMENOrdering Facility: [facility] Address: [address] [place] [address] Performed By: #### 5 8410-2 ####[facility] LABCLIA [id number] [place] [address] [place] Platelets (Bld) [#/Vol] 119 10*3/uL Low 150-400 [facility] Comment on above: Order Comment: Speci men Type: BLOOD SPECIMENOrdering Facility: [facility] Address: [address] [place] [address] Performed By: #### 5 8410-2 ####[facility] LABCLIA [id number] [place] [address] [place] RBC (Bld) [#/Vol] 2.81 10*6/uL Low 4.20-6.00 [facility] Comment on above: Order Comment: Speci men Type: BLOOD SPECIMENOrdering Facility: [facility] Address: [address] [place] [address] Performed By: #### 5 8410-2 ####[facility] LABCLIA [id number] [place] [address] [place] WBC (Bld) [#/Vol] 18.25 10*3/uL High 3.70-11.00 [facility] Comment on above: Order Comment: Speci men Type: BLOOD SPECIMENOrdering Facility: [facility] Address: [address] [place] [address] Performed By: #### 5 8410-2 ####[facility] LABCLIA [id number] [place] [address] [place] CONSULTon 09-22-2023 CONSULT Normal [facility] CONSULT PROGon 09-22-2023 CONSULT PROG Normal [facility] Comprehensive metabolic 2000 panelon 09-22-2023 Albumin [Mass/Vol] 3.3 g/dL Low 3.9-4.9 [facility] Comment on above: Order Comment: Speci men Type: BLOOD SPECIMENOrdering Facility: [facility] Address: [address] [place] [id number] Performed By: #### 2 4323-8, 277- ####[facility] LABCLIA [id number] [place] [id number] [place] ALP [Catalytic activity/Vol] 64 U/L Normal 38-113 [facility] Comment on above: Order Comment: Speci men Type: BLOOD SPECIMENOrdering Facility: [facility] Address: [address] [place], [place] [id number] Performed By: #### 2 4323-8, 27709-11 ####[facility] LABCLIA [id number] [place] [address] [place] ALT [Catalytic activity/Vol] 16 U/L Normal 10-54 [facility] Comment on above: Order Comment: Speci men Type: BLOOD SPECIMENOrdering Facility: [facility] Address: [address] [place] [address] Performed By: #### 2 4323-8, 2776-03 ####[facility] LABCLIA [id number] [place] [address] [place] Anion gap [Moles/Vol] 11 mmol/L Normal 8-15 [facility] Comment on above: Order Comment: Speci men Type: BLOOD SPECIMENOrdering Facility: [facility] Address: [address] [place], [place] [id number] Performed By: #### 2 4323-8, 277- ####[facility] LABCLIA [id number] [place] [address] [place] AST [Catalytic activity/Vol] 22 U/L Normal 14-40 [facility] Comment on above: Order Comment: Speci men Type: BLOOD SPECIMENOrdering Facility: [facility] Address: [address] [place], [place] [id number] Performed By: #### 2 4323-8, 2776-03 ####[facility] LABCLIA [id number] [place] [id number] [place] Bilirubin [Mass/Vol] 0.7 mg/dL Normal 0.2-1.3 [facility] Comment on above: Order Comment: Speci men Type: BLOOD SPECIMENOrdering Facility: [facility] Address: [address] [place] [address] Performed By: #### 2 4323-8, 2776-03 ####[facility] LABCLIA [id number] [place] [id number] [place] Calcium [Mass/Vol] 9.0 mg/dL Normal 8.5-10.2 [facility] Comment on above: Order Comment: Speci men Type: BLOOD SPECIMENOrdering Facility: [facility] Address: [address] [place] [address] Performed By: #### 2 4323-8, 2776-03 ####[facility] LABCLIA [id number] [place] [id number] [place] Chloride [Moles/Vol] 99 mmol/L Normal 98-107 [facility] Comment on above: Order Comment: Speci men Type: BLOOD SPECIMENOrdering Facility: [facility] Address: [address] [place], [place] [address] Performed By: #### 2 4323-8, 2776-03 ####[facility] LABCLIA [id number] [place] [id number] [place] CO2 [Moles/Vol] 25 mmol/L Normal 22-30 [facility] Comment on above: Order Comment: Speci men Type: BLOOD SPECIMENOrdering Facility: [facility] Address: [address] [place], [place] [id number] Performed By: #### 2 4323-8, 277- ####[facility] LABCLIA [id number] [address] [address] [place] Creatinine [Mass/Vol] 1.33 mg/dL High 0.73-1.22 [facility] Comment on above: Order Comment: Ricardo ignacio Type: BLOOD SPECIMENOrdering Facility: [facility] Address: [address] [place] [address] Performed By: #### 2 4323-8, 2777-1 ####[facility] LABIA [id number] [place] [address] [place] Creatinine and Glomerular filtration rate.predicted panel (S/P/Bld) 58 mL/min/1.73m??? Low >=60 [facility] Comment on above: Order Comment: Ricardo ignacio Type: BLOOD SPECIMENOrdering Facility: [facility] Address: [address] [place] [address] Result Comment: Aileen mated Glomerular Filtration Rate [...] actual GFR. Performed By: #### 2 4323-8, 2777-1 ####[facility] LABCLIA [id number] [place] [address] [place] Glucose [Mass/Vol] 224 mg/dL High 74-99 [facility] Comment on above: Order Comment: Ricardo ignacio Type: BLOOD SPECIMENOrdering Facility: [facility] Address: [address] [place] [address] Result Comment: The [place] [employer] (ADA) provides guidance for cutoff values for fasting glucose and random glucose. The ADA defines fasting as no caloric intake for at least 8 hours. Fasting plasma glucose results between 100 to 125 mg/dL indicate increased risk for diabetes (prediabetes).Fasting plasma glucose results greater than or equal to 126 mg/dL meet the criteria for diagnosis of diabetes. In the absence of unequivocal hyperglycemia, results should be confirmed by repeat testing. In a patient with classic symptoms of hyperglycemia or hyperglycemic crisis, random plasma glucose results greater than or equal to 200 mg/dL meet the criteria for diagnosis of diabetes.Reference: Standards of Medical Care in Diabetes 2016, [place] [employer]. Diabetes Care. 2016.39(Suppl 1). Performed By: #### 2 4323-8, 2776- ####[facility] LABCLIA [id number] [place] [address] [place] Potassium [Moles/Vol] 5.1 mmol/L Normal 3.7-5.1 [facility] Comment on above: Order Comment: Speci men Type: BLOOD SPECIMENOrdering Facility: [facility] Address: [address] [place] [address] Performed By: #### 2 4323-8, 2776-03 ####[facility] LABCLIA [id number] [place] [address] [place] Protein [Mass/Vol] 5.5 g/dL Low 6.3-8.0 [facility] Comment on above: Order Comment: Speci men Type: BLOOD SPECIMENOrdering Facility: [facility] Address: [address] [place] [address] Performed By: #### 2 4323-8, 2776-03 ####[facility] LABCLIA [id number] [place] [address] [place] Sodium [Moles/Vol] 135 mmol/L Low 136-144 [facility] Comment on above: Order Comment: Speci men Type: BLOOD SPECIMENOrdering Facility: [facility] Address: [address] [place] [address] Performed By: #### 2 4323-8, 2776-03 ####[facility] LABCLIA [id number] [place] [id number] [place] Urea nitrogen [Mass/Vol] 30 mg/dL High 9-24 [facility] Comment on above: Order Comment: Speci men Type: BLOOD SPECIMENOrdering Facility: [facility] Address: [address] [place] [address] Performed By: #### 2 4323-8, 2777-1 ####[facility] LABCLIA [id number] [address] [id number] [address] [place] Erythrocyte distribution wid th Auto (RBC) [Ratio]on 09-22-2023 Erythrocyte distribution width (RBC) [Ratio] 16.3 % High 11.5-15.0 [facility] Hematocrit Auto (Bld) [Volum e fraction]on 09-22-2023 Hematocrit (Bld) [Volume fraction] 27.1 % Low 39.0-51.0 [facility] Hemoglobin [Mass/volume] in Bloodon 09-22-2023 Hemoglobin (Bld) [Mass/Vol] 8.7 g/dL Low 13.0-17.0 [facility] Leukocytes [#/volume] correc leticia for nucleated erythrocytes in Blood by Automated counon 09-22-2023 WBC corrected for nucl RBC Auto (Bld) [#/Vol] 18.25 k/uL High 3.70-11.00 [facility] MCH Auto (RBC) [Entitic mass ]on 09-22-2023 MCH (RBC) [Entitic mass] 30.2 pg 26.0-34.0 [facility] MCHC Auto (RBC) [Mass/Vol]on 09-22-2023 MCHC (RBC) [Mass/Vol] 34.8 g/dL 30.5-36.0 [facility] MCV Auto (RBC) [Entitic vol] on 09-22-2023 MCV (RBC) [Entitic vol] 86.8 fL 80.0-100.0 [facility] No Panel Informationon 09-21 30 mmol/L High 22-26 [facility] 1.3 % 0.0-2.0 [facility] 167 mg/dL High 60-105 [facility] 1.8 % High 0.0-1.5 [facility] 98 % 95-98 [facility] 95 % 95-98 [facility] 133 mmol/L Low 136-144 [facility] 4.4 mmol/L 3.5-5.0 [facility] 5 mmol/L High 0-2 [facility] 107 mm Hg High 85-95 [facility] 51 mm Hg High 36-46 [facility] 7.39 7.35-7.45 [facility] 0.9 mmol/L 0.5-2.2 [facility] 1.23 mmol/L 1.08-1.30 [facility] 1 Liters/min [facility] NC = Nasal Cannula [facility] 37.0 C [facility] 16 U/L 10-54 [facility] 3.6 mg/dL 2.7-4.8 [facility] 3.3 g/dL Low 3.9-4.9 [facility] 22 U/L 14-40 [facility] 0.7 mg/dL 0.2-1.3 [facility] 25 mmol/L 22-30 [facility] 99 mmol/L 98-107 [facility] 1.33 mg/dL High 0.73-1.22 [facility] 30 mg/dL High 9-24 [facility] 64 U/L 38-113 [facility] 9.0 mg/dL 8.5-10.2 [facility] 58 mL/min/1.73m??? Low >=60 [facility] Nucleated RBC Auto (Bld) [#/ Vol]on 09-22-2023 Nucleated RBC (Bld) [#/Vol] 10*3/uL <0.01 [facility] Phosphate SerPl-mCncon 09-21 Phosphate [Mass/Vol] 3.6 mg/dL Normal 2.7-4.8 [facility] Comment on above: Order Comment: Speci men Type: BLOOD SPECIMENOrdering Facility: [facility] Address: [address] [place] [address] Performed By: #### 2 4323-8, 2777-1 ####[facility] LABCLIA [id number] [facility] [id number] [address] [place] Platelet mean volume Auto (B ld) [Entitic vol]on 09-22-2023 Platelet mean volume (Bld) [Entitic vol] 11.5 fL 9.0-12.7 [facility] Platelets Auto (Bld) [#/Vol] on 09-22-2023 Platelets (Bld) [#/Vol] 119 10*3/uL Low 150-400 [facility] Protein [Mass/volume] in Ser um or Plasmaon 09-22-2023 Protein [Mass/Vol] 5.5 g/dL Low 6.3-8.0 [facility] RBC Auto (Bld) [#/Vol]on RBC (Bld) [#/Vol] 2.81 10*6/uL Low 4.20-6.00 [facility] Serum ionized calcium measur ement using ion specific electrode (mass/volume)on 09-22-2023 Calcium.ionized ISE [Mass/Vol] 1.24 mmol/L 1.08-1.30 [facility] Serum or plasma anion gap de terminationon 09-22-2023 Anion gap [Moles/Vol] 11 mmol/L 8-15 [facility] THERAPY NTon 09-22-2023 THERAPY NT Normal [facility] THERAPY NT Normal [facility] XR CHEST 1V FRONTAL PORTon 0 09-22-2023 XR CHEST 1V FRONTAL PORT Normal [facility] ALLIED HEALTHon 09-21-2023 ALLIED HEALTH HNO ID: [id number] Author: KRISTIAN AVALOS Chaplain Service: Process Group Author Type: Creative Writing English Professor Type: Allied Health Filed: 09/21/2023 13:04 Note Text: The patient was anointed. Normal [facility] ARTERIAL BLOOD GASESon 09-20 Base excess Calc (Bld) [Moles/Vol] 4 mmol/L High 0-2 [facility] Comment on above: Order Comment: Speci men Type: ARTERIAL BLOOD SPECIMENOrdering Facility: [facility] Address: [address] [place] [address] Performed By: #### A [facility] ####[facility] LABCLIA [id number] [place] [address] [place] Body temperature 98.6 [degF] Normal [facility] Comment on above: Order Comment: Speci men Type: ARTERIAL BLOOD SPECIMENOrdering Facility: [facility] Address: [address] [place] [address] Performed By: #### A LLBG ####[facility] LABCLIA [id number] [place] [address] [place] Calcium.ionized (Bld) [Mass/Vol] 1.18 mmol/L Normal 1.08-1.30 [facility] Comment on above: Order Comment: Speci men Type: ARTERIAL BLOOD SPECIMENOrdering Facility: [facility] Address: [address] [place] [address] Performed By: #### A LLBG ####[facility] LABCLIA [id number] [place] [address] [place] Calcium.ionized adjusted to pH 7.4 (BldA) [Moles/Vol] 1.18 mmol/L Normal 1.08-1.30 [facility] Comment on above: Order Comment: Speci men Type: ARTERIAL BLOOD SPECIMENOrdering Facility: [facility] Address: [address] [place] [address] Performed By: #### A LLBG ####[facility] LABCLIA [id number] [place] [address] [place] Carboxyhemoglobin (BldA) [Mass fraction] 1.9 % Normal 0.0-2.0 [facility] Comment on above: Order Comment: Speci men Type: ARTERIAL BLOOD SPECIMENOrdering Facility: [facility] Address: [address] [place] [address] Result Comment: Carb oxyhemoglobin Reference Range for Smokers: 2.0-8.0% Performed By: #### A LLBG ####[facility] LABCLIA [id number] [place] [address] [place] CO2 (Bld) [Partial pressure] 49 mm Hg High 36-46 [facility] Comment on above: Order Comment: Speci men Type: ARTERIAL BLOOD SPECIMENOrdering Facility: [facility] Address: [facility] [place] [address] Performed By: #### A LLBG ####[facility] LABCLIA [id number] [place] [address] [place] Glucose [Mass/Vol] 184 mg/dL High 60-105 [facility] Comment on above: Order Comment: Speci men Type: ARTERIAL BLOOD SPECIMENOrdering Facility: [facility] Address: [address] [place] [address] Performed By: #### A LLBG ####[facility] LABCLIA [id number] [place] [address] [place] HCO3 (Bld) [Moles/Vol] 29 mmol/L High 22-26 [facility] Comment on above: Order Comment: Speci men Type: ARTERIAL BLOOD SPECIMENOrdering Facility: [facility] Address: [address] [place] [address] Performed By: #### A LLBG ####[facility] LABCLIA [id number] [place] [address] [place] Hematocrit (Bld) [Volume fraction] 27.1 % Low 39.0-51.0 [facility] Comment on above: Order Comment: Speci men Type: ARTERIAL BLOOD SPECIMENOrdering Facility: [facility] Address: [address] [place] [address] Performed By: #### A LLBG ####[facility] LABCLIA [id number] [place] [address] [place] Hemoglobin (Bld) [Mass/Vol] 8.7 g/dL Low 13.0-17.0 [facility] Comment on above: Order Comment: Speci men Type: ARTERIAL BLOOD SPECIMENOrdering Facility: [facility] Address: [address] [place] [address] Performed By: #### A LLBG ####[facility] LABCLIA [id number] [place] [address] [place] Lactate [Moles/Vol] 1.0 mmol/L Normal 0.5-2.2 [facility] Comment on above: Order Comment: Speci men Type: ARTERIAL BLOOD SPECIMENOrdering Facility: [facility] Address: [address] [place] [address] Performed By: #### A LLBG ####[facility] LABCLIA [id number] [place] [address] [place] LITERS 1 Liters/min Normal [facility] Comment on above: Order Comment: Speci men Type: ARTERIAL BLOOD SPECIMENOrdering Facility: [facility] Address: [address] [place] [address] Performed By: #### A LLBG ####[facility] LABCLIA [id number] [place] [address] [place] Methemoglobin (Bld) [Mass fraction] 1.4 % Normal 0.0-1.5 [facility] Comment on above: Order Comment: Speci men Type: ARTERIAL BLOOD SPECIMENOrdering Facility: [facility] Address: [address] [place] [address] Performed By: #### A LLBG ####[facility] LABIA [id number] [place] [address] [place] O2 THERAPY [place] = Nasal Cannula Normal [facility] Comment on above: Order Comment: Speci men Type: ARTERIAL BLOOD SPECIMENOrdering Facility: [facility] Address: [address] [place] [address] Performed By: #### A LLBG ####[facility] LABCLIA [id number] [place] [address] [place] Oxygen (Bld) [Partial pressure] 119 mm Hg High 85-95 [facility] Comment on above: Order Comment: Speci men Type: ARTERIAL BLOOD SPECIMENOrdering Facility: [facility] Address: [address] [place] [address] Performed By: #### A LLBG ####[facility] LABIA [id number] [place] [address] [place] Oxyhemoglobin (BldA) [Mass fraction] 96 % Normal 95-98 [facility] Comment on above: Order Comment: Speci men Type: ARTERIAL BLOOD SPECIMENOrdering Facility: [facility] Address: [address] [place] [address] Performed By: #### A LLBG ####[facility] LABIA [id number] [place] [address] [place] pH (Bld) 7.39 [pH] Normal 7.35-7.45 [facility] Comment on above: Order Comment: Speci men Type: ARTERIAL BLOOD SPECIMENOrdering Facility: [facility] Address: [address] [place] [address] Performed By: #### A LLBG ####[facility] LABIA [id number] [place] [address] [place] Potassium [Moles/Vol] 5.1 mmol/L High 3.5-5.0 [facility] Comment on above: Order Comment: Speci men Type: ARTERIAL BLOOD SPECIMENOrdering Facility: [facility] Address: [address] [place] [address] Performed By: #### A LLBG ####[facility] LABIA [id number] [place] [address] [place] Sodium [Moles/Vol] 131 mmol/L Low 136-144 [facility] Comment on above: Order Comment: Speci men Type: ARTERIAL BLOOD SPECIMENOrdering Facility: [facility] Address: [address] [place] [address] Performed By: #### A LLBG ####[facility] LABCLIA [id number] [place] [address] [place] Base excess Calc (Bld) [Moles/Vol] 5 mmol/L High 0-2 [facility] Comment on above: Order Comment: Speci men Type: ARTERIAL BLOOD SPECIMENOrdering Facility: [facility] Address: [address] [place] [address] Performed By: #### A LLBG ####[facility] LABIA [id number] [place] [address] [place] Body temperature 98.6 [degF] Normal [facility] Comment on above: Order Comment: Speci men Type: ARTERIAL BLOOD SPECIMENOrdering Facility: [facility] Address: [address] [place] [address] Performed By: #### A LLBG ####[facility] LABIA [id number] [place] [address] [place] Calcium.ionized (Bld) [Mass/Vol] 1.22 mmol/L Normal 1.08-1.30 [facility] Comment on above: Order Comment: Speci men Type: ARTERIAL BLOOD SPECIMENOrdering Facility: [facility] Address: [address] [place] [address] Performed By: #### A LLBG ####[facility] LABIA [id number] [place] [address] [place] Calcium.ionized adjusted to pH 7.4 (BldA) [Moles/Vol] 1.21 mmol/L Normal 1.08-1.30 [facility] Comment on above: Order Comment: Speci men Type: ARTERIAL BLOOD SPECIMENOrdering Facility: [facility] Address: [address] [place] [address] Performed By: #### A LLBG ####[facility] LABIA [id number] [place] [address] [place] Carboxyhemoglobin (BldA) [Mass fraction] 2.2 % High 0.0-2.0 [facility] Comment on above: Order Comment: Speci men Type: ARTERIAL BLOOD SPECIMENOrdering Facility: [facility] Address: [address] [place] [address] Result Comment: Carb oxyhemoglobin Reference Range for Smokers: 2.0-8.0% Performed By: #### A LLBG ####[facility] LABCLIA [id number] [place] [address] [place] CO2 (Bld) [Partial pressure] 50 mm Hg High 36-46 [facility] Comment on above: Order Comment: Speci men Type: ARTERIAL BLOOD SPECIMENOrdering Facility: [facility] Address: [address] [place] [address] Performed By: #### A LLBG ####[facility] LABCLIA [id number] [place] [address] [place] Glucose [Mass/Vol] 118 mg/dL High 60-105 [facility] Comment on above: Order Comment: Speci men Type: ARTERIAL BLOOD SPECIMENOrdering Facility: [facility] [facility] Address: [address] [place] [address] Performed By: #### A LLBG ####[facility] LABCLIA [id number] [place] [address] [place] HCO3 (Bld) [Moles/Vol] 30 mmol/L High 22-26 [facility] Comment on above: Order Comment: Speci men Type: ARTERIAL BLOOD SPECIMENOrdering Facility: [facility] Address: [address] [place] [address] Performed By: #### A LLBG ####[facility] LABCLIA [id number] [place] [address] [place] Hematocrit (Bld) [Volume fraction] 27.6 % Low 39.0-51.0 [facility] Comment on above: Order Comment: Speci men Type: ARTERIAL BLOOD SPECIMENOrdering Facility: [facility] Address: [address] [place] [address] Performed By: #### A LLBG ####[facility] LABCLIA [id number] [place] [address] [place] Hemoglobin (Bld) [Mass/Vol] 8.9 g/dL Low 13.0-17.0 [facility] Comment on above: Order Comment: Speci men Type: ARTERIAL BLOOD SPECIMENOrdering Facility: [facility] Address: [address] [place] [address] Performed By: #### A LLBG ####[facility] LABCLIA [id number] [place] [address] [place] Lactate [Moles/Vol] 1.0 mmol/L Normal 0.5-2.2 [facility] Comment on above: Order Comment: Speci men Type: ARTERIAL BLOOD SPECIMENOrdering Facility: [facility] Address: [address] [place] [address] Performed By: #### A LLBG ####[facility] LABIA [id number] [place] [address] [place] LITERS 1 Liters/min Normal [facility] Comment on above: Order Comment: Speci men Type: ARTERIAL BLOOD SPECIMENOrdering Facility: [facility] Address: [address] [place] [address] Performed By: #### A LLBG ####[facility] LABIA [id number] [place] [address] [place] Methemoglobin (Bld) [Mass fraction] 1.0 % Normal 0.0-1.5 [facility] Comment on above: Order Comment: Speci men Type: ARTERIAL BLOOD SPECIMENOrdering Facility: [facility] Address: [address] [place] [address] Performed By: #### A LLBG ####[facility] LABIA [id number] [place] [address] [place] O2 THERAPY NC = Nasal Cannula Normal [facility] Comment on above: Order Comment: Speci men Type: ARTERIAL BLOOD SPECIMENOrdering Facility: [facility] Address: [address] [place] [address] Performed By: #### A LLBG ####[facility] LABCLIA [id number] [place] [address] [place] Oxygen (Bld) [Partial pressure] 100 mm Hg High 85-95 [facility] Comment on above: Order Comment: Speci men Type: ARTERIAL BLOOD SPECIMENOrdering Facility: [facility] Address: [address] [place] [address] Performed By: #### A LLBG ####[facility] LABCLIA [id number] [place] [address] [place] Oxyhemoglobin (BldA) [Mass fraction] 95 % Normal 95-98 [facility] Comment on above: Order Comment: Speci men Type: ARTERIAL BLOOD SPECIMENOrdering Facility: [facility] Address: [address] [place] [address] Performed By: #### A LLBG ####[facility] LABCLIA [id number] [place] [address] [place] pH (Bld) 7.39 [pH] Normal 7.35-7.45 [facility] Comment on above: Order Comment: Speci men Type: ARTERIAL BLOOD SPECIMENOrdering Facility: [facility] Address: [address] [place] [address] Performed By: #### A LLBG ####[facility] LABCLIA [id number] [place] [address] [place] Potassium [Moles/Vol] 4.8 mmol/L Normal 3.5-5.0 [facility] Comment on above: Order Comment: Speci men Type: ARTERIAL BLOOD SPECIMENOrdering Facility: [facility] Address: [address] [place] [address] Performed By: #### A LLBG ####[facility] LABCLIA [id number] [place] [address] [place] Sodium [Moles/Vol] 134 mmol/L Low 136-144 [facility] Comment on above: Order Comment: Speci men Type: ARTERIAL BLOOD SPECIMENOrdering Facility: [facility] Address: [address] [place] [address] Performed By: #### A LLBG ####[facility] LABIA [id number] [place] [address] [place] Base excess Calc (Bld) [Moles/Vol] 5 mmol/L High 0-2 [facility] Comment on above: Order Comment: Speci men Type: ARTERIAL BLOOD SPECIMENOrdering Facility: [facility] Address: [address] [place] [address] Performed By: #### A LLBG ####[facility] LABIA [id number] [place] [address] [place] Calcium.ionized (Bld) [Mass/Vol] 1.20 mmol/L Normal 1.08-1.30 [facility] Comment on above: Order Comment: Speci men Type: ARTERIAL BLOOD SPECIMENOrdering Facility: [facility] Address: [address] [place] [address] Performed By: #### A LLBG ####[facility] LABIA [id number] [place] [address] [place] Calcium.ionized adjusted to pH 7.4 (BldA) [Moles/Vol] 1.20 mmol/L Normal 1.08-1.30 [facility] Comment on above: Order Comment: Speci men Type: ARTERIAL BLOOD SPECIMENOrdering Facility: [facility] Address: [address] [place] [address] Performed By: #### A LLBG ####[facility] LABCLIA [id number] [place] [address] [place] Carboxyhemoglobin (BldA) [Mass fraction] 1.0 % Normal 0.0-2.0 [facility] Comment on above: Order Comment: Speci men Type: ARTERIAL BLOOD SPECIMENOrdering Facility: [facility] Address: [address] [place] [address] Result Comment: Carb oxyhemoglobin Reference Range for Smokers: 2.0-8.0% Performed By: #### A LLBG ####[facility] LABCLIA [id number] [place] [address] [place] CO2 (Bld) [Partial pressure] 47 mm Hg High 36-46 [facility] Comment on above: Order Comment: Speci men Type: ARTERIAL BLOOD SPECIMENOrdering Facility: [facility] Address: [address] [place] [address] Performed By: #### A LLBG ####[facility] LABCLIA [id number] [place] [address] [place] Glucose [Mass/Vol] 131 mg/dL High 60-105 [facility] Comment on above: Order Comment: Speci men Type: ARTERIAL BLOOD SPECIMENOrdering Facility: [facility] Address: [address] [place] [address] Performed By: #### A LLBG ####[facility] LABCLIA [id number] [place] [address] [place] HCO3 (Bld) [Moles/Vol] 29 mmol/L High 22-26 [facility] Comment on above: Order Comment: Speci men Type: ARTERIAL BLOOD SPECIMENOrdering Facility: [facility] Address: [address] [place] [address] Performed By: #### A LLBG ####[facility] LABCLIA [id number] [place] [address] [place] Hematocrit (Bld) [Volume fraction] 27.1 % Low 39.0-51.0 [facility] Comment on above: Order Comment: Speci men Type: ARTERIAL BLOOD SPECIMENOrdering Facility: [facility] Address: [address] [place] [address] Performed By: #### A LLBG ####[facility] LABIA [id number] [place] [address] [place] Hemoglobin (Bld) [Mass/Vol] 8.7 g/dL Low 13.0-17.0 [facility] Comment on above: Order Comment: Speci men Type: ARTERIAL BLOOD SPECIMENOrdering Facility: [facility] Address: [address] [place] [address] Performed By: #### A LLBG ####[facility] LABIA [id number] [place] [address] [place] Methemoglobin (Bld) [Mass fraction] 0.9 % Normal 0.0-1.5 [facility] Comment on above: Order Comment: Speci men Type: ARTERIAL BLOOD SPECIMENOrdering Facility: [facility] Address: [address] [place] [address] Performed By: #### A LLBG ####[facility] LABIA [id number] [place] [address] [place] Oxygen (Bld) [Partial pressure] 155 mm Hg High 85-95 [facility] Comment on above: Order Comment: Speci men Type: ARTERIAL BLOOD SPECIMENOrdering Facility: [facility] Address: [address] [place] [address] Performed By: #### A LLBG ####[facility] LABIA [id number] [place] [address] [place] Oxyhemoglobin (BldA) [Mass fraction] 97 % Normal 95-98 [facility] Comment on above: Order Comment: Speci men Type: ARTERIAL BLOOD SPECIMENOrdering Facility: [facility] Address: [address] [place] [address] Performed By: #### A LLBG ####[facility] LABIA [id number] [place] [address] [place] pH (Bld) 7.41 [pH] Normal 7.35-7.45 [facility] Comment on above: Order Comment: Speci men Type: ARTERIAL BLOOD SPECIMENOrdering Facility: [facility] Address: [address] [place] [address] Performed By: #### A LLBG ####[facility] LABCLIA [id number] [place] [address] [place] Potassium [Moles/Vol] 4.7 mmol/L Normal 3.5-5.0 [facility] Comment on above: Order Comment: Speci men Type: ARTERIAL BLOOD SPECIMENOrdering Facility: [facility] Address: [address] [place] [address] Performed By: #### A LLBG ####[facility] LABCLIA [id number] [place] [address] [place] Sodium [Moles/Vol] 133 mmol/L Low 136-144 [facility] Comment on above: Order Comment: Speci men Type: ARTERIAL BLOOD SPECIMENOrdering Facility: [facility] Address: [address] [place] [address] Performed By: #### A LLBG ####[facility] LABCLIA [id number] [place] [address] [place] Base excess Calc (Bld) [Moles/Vol] 3 mmol/L High 0-2 [facility] Comment on above: Order Comment: Speci men Type: ARTERIAL BLOOD SPECIMENOrdering Facility: [facility] Address: [address] [place] [address] Performed By: #### A LLBG ####[facility] LABCLIA [id number] [place] [address] [place] Body temperature 98.6 [degF] Normal [facility] Comment on above: Order Comment: Speci men Type: ARTERIAL BLOOD SPECIMENOrdering Facility: [facility] Address: [address] [place] [address] Performed By: #### A LLBG ####[facility] LABIA [id number] [place] [address] [place] Calcium.ionized (Bld) [Mass/Vol] 1.15 mmol/L Normal 1.08-1.30 [facility] Comment on above: Order Comment: Speci men Type: ARTERIAL BLOOD SPECIMENOrdering Facility: [facility] Address: [address] [place] [address] Performed By: #### A LLBG ####[facility] LABIA [id number] [place] [address] [place] Calcium.ionized adjusted to pH 7.4 (BldA) [Moles/Vol] 1.14 mmol/L Normal 1.08-1.30 [facility] Comment on above: Order Comment: Speci men Type: ARTERIAL BLOOD SPECIMENOrdering Facility: [facility] Address: [address] [place] [address] Performed By: #### A LLBG ####[facility] [id number] [place] [address] [place] Carboxyhemoglobin (BldA) [Mass fraction] 1.6 % Normal 0.0-2.0 [facility] Comment on above: Order Comment: Speci men Type: ARTERIAL BLOOD SPECIMENOrdering Facility: [facility] Address: [address] [place] [address] Result Comment: Carb oxyhemoglobin Reference Range for Smokers: 2.0-8.0% Performed By: #### A LLBG ####[facility] LABIA [id number] [place] [address] [place] CO2 (Bld) [Partial pressure] 46 mm Hg Normal 36-46 [facility] Comment on above: Order Comment: Speci men Type: ARTERIAL BLOOD SPECIMENOrdering Facility: [facility] Address: [address] [place] [address] Performed By: #### A LLBG ####[facility] LABIA [id number] [place] [address] [place] Glucose [Mass/Vol] 183 mg/dL High 60-105 [facility] Comment on above: Order Comment: Speci men Type: ARTERIAL BLOOD SPECIMENOrdering Facility: [facility] Address: [address] [place] [address] Performed By: #### A LLBG ####[facility] LABCLIA [id number] [place] [address] [place] HCO3 (Bld) [Moles/Vol] 27 mmol/L High 22-26 [facility] Comment on above: Order Comment: Speci men Type: ARTERIAL BLOOD SPECIMENOrdering Facility: [facility] Address: [address] [place] [address] Performed By: #### A LLBG ####[facility] LABCLIA [id number] [place] [address] [place] Hematocrit (Bld) [Volume fraction] 27.5 % Low 39.0-51.0 [facility] Comment on above: Order Comment: Speci men Type: ARTERIAL BLOOD SPECIMENOrdering Facility: [facility] Address: [address] [place] [address] Performed By: #### A LLBG ####[facility] LABCLIA [id number] [place] [address] [place] Hemoglobin (Bld) [Mass/Vol] 8.9 g/dL Low 13.0-17.0 [facility] Comment on above: Order Comment: Speci men Type: ARTERIAL BLOOD SPECIMENOrdering Facility: [facility] Address: [address] [place] [address] Performed By: #### A LLBG ####[facility] LABCLIA [id number] [place] [address] [place] Lactate [Moles/Vol] 1.2 mmol/L Normal 0.5-2.2 [facility] Comment on above: Order Comment: Speci men Type: ARTERIAL BLOOD SPECIMENOrdering Facility: [facility] Address: [address] [place] [address] Performed By: #### A LLBG ####[facility] LABCLIA [id number] [place] [id number] [place] Methemoglobin (Bld) [Mass fraction] 1.5 % Normal 0.0-1.5 [facility] Comment on above: Order Comment: Speci men Type: ARTERIAL BLOOD SPECIMENOrdering Facility: [facility] Address: [address] [place] [id number] Performed By: #### A LLBG ####[facility] LABIA [id number] [address] [place] O2 THERAPY [place] = Nasal Cannula Normal [facility] Comment on above: Order Comment: Speci men Type: ARTERIAL BLOOD SPECIMENOrdering Facility: [facility] Address: [address] [place], [place] [id number] Performed By: #### A LLBG ####[facility] LABCLIA [id number] [place] [address] [place] Oxygen (Bld) [Partial pressure] 103 mm Hg High 85-95 [facility] Comment on above: Order Comment: Speci men Type: ARTERIAL BLOOD SPECIMENOrdering Facility: [facility] Address: [address] [place] [id number] Performed By: #### A LLBG ####[facility] LABCLIA [id number] [place] [id number] [place] Oxyhemoglobin (BldA) [Mass fraction] 95 % Normal 95-98 [facility] Comment on above: Order Comment: Speci men Type: ARTERIAL BLOOD SPECIMENOrdering Facility: [facility] Address: [address] [place] [id number] Performed By: #### A LLBG ####[facility] LABIA [id number] [place] [id number] [place] pH (Bld) 7.39 [pH] Normal 7.35-7.45 [facility] Comment on above: Order Comment: Speci men Type: ARTERIAL BLOOD SPECIMENOrdering Facility: [facility] Address: [address] [place] [address] Performed By: #### A LLBG ####[facility] LABCLIA [id number] [place] [address] [place] Potassium [Moles/Vol] 4.8 mmol/L Normal 3.5-5.0 [facility] Comment on above: Order Comment: Speci men Type: ARTERIAL BLOOD SPECIMENOrdering Facility: [facility] Address: [address] [place] [address] Performed By: #### A LLBG ####[facility] LABCLIA [id number] [place] [address] [place] Sodium [Moles/Vol] 131 mmol/L Low 136-144 [facility] Comment on above: Order Comment: Speci men Type: ARTERIAL BLOOD SPECIMENOrdering Facility: [facility] Address: [address] [place] [address] Performed By: #### A LLBG ####[facility] LABCLIA [id number] [place] [address] [place] Base excess Calc (Bld) [Moles/Vol] 2 mmol/L Normal 0-2 [facility] Comment on above: Order Comment: Speci men Type: ARTERIAL BLOOD SPECIMENOrdering Facility: [facility] Address: [address] [place] [address] Performed By: #### A LLBG ####[facility] LABCLIA [id number] [place] [address] [place] Body temperature 98.6 [degF] Normal [facility] Comment on above: Order Comment: Speci men Type: ARTERIAL BLOOD SPECIMENOrdering Facility: [facility] Address: [address] [place] [address] Performed By: #### A LLBG ####[facility] LABCLIA [id number] [place] [address] [place] Calcium.ionized (Bld) [Mass/Vol] 1.17 mmol/L Normal 1.08-1.30 [facility] Comment on above: Order Comment: Speci men Type: ARTERIAL BLOOD SPECIMENOrdering Facility: [facility] Address: [address] [place] [address] Performed By: #### A LLBG ####[facility] LABIA [id number] [place] [address] [place] Calcium.ionized adjusted to pH 7.4 (BldA) [Moles/Vol] 1.16 mmol/L Normal 1.08-1.30 [facility] Comment on above: Order Comment: Speci men Type: ARTERIAL BLOOD SPECIMENOrdering Facility: [facility] Address: [address] [place] [address] Performed By: #### A LLBG ####[facility] LABIA [id number] [place] [address] [place] Carboxyhemoglobin (BldA) [Mass fraction] 1.8 % Normal 0.0-2.0 [facility] Comment on above: Order Comment: Speci men Type: ARTERIAL BLOOD SPECIMENOrdering Facility: [facility] Address: [address] [place] [address] Result Comment: Carb oxyhemoglobin Reference Range for Smokers: 2.0-8.0% Performed By: #### A LLBG ####[facility] LABIA [id number] [place] [address] [place] CO2 (Bld) [Partial pressure] 47 mm Hg High 36-46 [facility] Comment on above: Order Comment: Speci men Type: ARTERIAL BLOOD SPECIMENOrdering Facility: [facility] Address: [address] [place] [address] Performed By: #### A LLBG ####[facility] LABCLIA [id number] [place] [address] [place] Glucose [Mass/Vol] 248 mg/dL High 60-105 [facility] Comment on above: Order Comment: Speci men Type: ARTERIAL BLOOD SPECIMENOrdering Facility: [facility] Address: [address] [place] [address] Performed By: #### A LLBG ####[facility] LABCLIA [id number] [place] [address] [place] HCO3 (Bld) [Moles/Vol] 27 mmol/L High 22-26 [facility] Comment on above: Order Comment: Speci men Type: ARTERIAL BLOOD SPECIMENOrdering Facility: [facility] Address: [address] [place] [address] Performed By: #### A LLBG ####[facility] LABCLIA [id number] [place] [address] [place] Hematocrit (Bld) [Volume fraction] 27.5 % Low 39.0-51.0 [facility] Comment on above: Order Comment: Speci men Type: ARTERIAL BLOOD SPECIMENOrdering Facility: [facility] Address: [address] [place] [address] Performed By: #### A LLBG ####[facility] LABCLIA [id number] [place] [address] [place] Hemoglobin (Bld) [Mass/Vol] 8.9 g/dL Low 13.0-17.0 [facility] Comment on above: Order Comment: Speci men Type: ARTERIAL BLOOD SPECIMENOrdering Facility: [facility] Address: [address] [place] [address] Performed By: #### A LLBG ####[facility] LABCLIA [id number] [place] [address] [place] Lactate [Moles/Vol] 1.4 mmol/L Normal 0.5-2.2 [facility] Comment on above: Order Comment: Speci men Type: ARTERIAL BLOOD SPECIMENOrdering Facility: [facility] Address: [address] [place] [address] Performed By: #### A LLBG ####[facility] LABCLIA [id number] [place] [id number] [place] LITERS 1 Liters/min Normal [facility] Comment on above: Order Comment: Speci men Type: ARTERIAL BLOOD SPECIMENOrdering Facility: [facility] Address: [address] [place] [id number] Performed By: #### A LLBG ####[facility] LABIA [id number] [place] [address] [place] Methemoglobin (Bld) [Mass fraction] 1.4 % Normal 0.0-1.5 [facility] Comment on above: Order Comment: Speci men Type: ARTERIAL BLOOD SPECIMENOrdering Facility: [facility] Address: [address] [place] [address] Performed By: #### A LLBG ####[facility] LABCLIA [id number] [place] [address] [place] O2 THERAPY NC = Nasal Cannula Normal [facility] Comment on above: Order Comment: Speci men Type: ARTERIAL BLOOD SPECIMENOrdering Facility: [facility] Address: [address] [place] [id number] Performed By: #### A LLBG ####[facility] LABCLIA [id number] [place] [address] [place] Oxygen (Bld) [Partial pressure] 147 mm Hg High 85-95 [facility] Comment on above: Order Comment: Speci men Type: ARTERIAL BLOOD SPECIMENOrdering Facility: [facility] Address: [address] [place] [id number] Performed By: #### A LLBG ####[facility] LABCLIA [id number] [place] [address] [place] Oxyhemoglobin (BldA) [Mass fraction] 97 % Normal 95-98 [facility] Comment on above: Order Comment: Speci men Type: ARTERIAL BLOOD SPECIMENOrdering Facility: [facility] Address: [address] [place] [address] Performed By: #### A LLBG ####[facility] LABCLIA [id number] [place] [address] [place] pH (Bld) 7.38 [pH] Normal 7.35-7.45 [facility] Comment on above: Order Comment: Speci men Type: ARTERIAL BLOOD SPECIMENOrdering Facility: [facility] [facility] Address: [address] [place] [address] Performed By: #### A LLBG ####[facility] LABCLIA [id number] [place] [address] [place] Potassium [Moles/Vol] 4.9 mmol/L Normal 3.5-5.0 [facility] Comment on above: Order Comment: Speci men Type: ARTERIAL BLOOD SPECIMENOrdering Facility: [facility] Address: [address] [place] [address] Performed By: #### A LLBG ####[facility] LABCLIA [id number] [place] [address] [place] Sodium [Moles/Vol] 130 mmol/L Low 136-144 [facility] Comment on above: Order Comment: Speci men Type: ARTERIAL BLOOD SPECIMENOrdering Facility: [facility] Address: [address] [place] [address] Performed By: #### A LLBG ####[facility] LABCLIA [id number] [place] [address] [place] Base excess Calc (Bld) [Moles/Vol] 1 mmol/L Normal 0-2 [facility] Comment on above: Order Comment: Speci men Type: ARTERIAL BLOOD SPECIMENOrdering Facility: [facility] Address: [facility] [place] [address] Performed By: #### A LLBG ####[facility] [id number] [place] [address] [place] Body temperature 98.6 [degF] Normal [facility] Comment on above: Order Comment: Speci men Type: ARTERIAL BLOOD SPECIMENOrdering Facility: [facility] Address: [address] [place] [address] Performed By: #### A LLBG ####[facility] [id number] [place] [address] [place] Calcium.ionized (Bld) [Mass/Vol] 1.17 mmol/L Normal 1.08-1.30 [facility] Comment on above: Order Comment: Speci men Type: ARTERIAL BLOOD SPECIMENOrdering Facility: [facility] Address: [address] [place] [address] Performed By: #### A LLBG ####[facility] [id number] [place] [address] [place] Calcium.ionized adjusted to pH 7.4 (BldA) [Moles/Vol] 1.16 mmol/L Normal 1.08-1.30 [facility] Comment on above: Order Comment: Speci men Type: ARTERIAL BLOOD SPECIMENOrdering Facility: [facility] Address: [address] [place] [address] Performed By: #### A LLBG ####[facility] [id number] [place] [address] [place] Carboxyhemoglobin (BldA) [Mass fraction] 1.5 % Normal 0.0-2.0 [facility] Comment on above: Order Comment: Speci men Type: ARTERIAL BLOOD SPECIMENOrdering Facility: [facility] Address: [address] [place] [address] Result Comment: Carb oxyhemoglobin Reference Range for Smokers: 2.0-8.0% Performed By: #### A LLBG ####[facility] LABCLIA [id number] [place] [address] [place] CO2 (Bld) [Partial pressure] 45 mm Hg Normal 36-46 [facility] Comment on above: Order Comment: Speci men Type: ARTERIAL BLOOD SPECIMENOrdering Facility: [facility] Address: [address] [place] [address] Performed By: #### A LLBG ####[facility] LABCLIA [id number] [place] [address] [place] Glucose [Mass/Vol] 282 mg/dL High 60-105 [facility] Comment on above: Order Comment: Speci men Type: ARTERIAL BLOOD SPECIMENOrdering Facility: [facility] Address: [address] [place] [address] Performed By: #### A LLBG ####[facility] LABCLIA [id number] [place] [address] [place] HCO3 (Bld) [Moles/Vol] 26 mmol/L Normal 22-26 [facility] Comment on above: Order Comment: Speci men Type: ARTERIAL BLOOD SPECIMENOrdering Facility: [facility] Address: [address] [place] [address] Performed By: #### A LLBG ####[facility] LABCLIA [id number] [place] [address] [place] Hematocrit (Bld) [Volume fraction] 27.8 % Low 39.0-51.0 [facility] Comment on above: Order Comment: Speci men Type: ARTERIAL BLOOD SPECIMENOrdering Facility: [facility] Address: [address] [place] [address] Performed By: #### A LLBG ####[facility] LABCLIA [id number] [place] [address] [place] Hemoglobin (Bld) [Mass/Vol] 9.0 g/dL Low 13.0-17.0 [facility] Comment on above: Order Comment: Speci men Type: ARTERIAL BLOOD SPECIMENOrdering Facility: [facility] Address: [address] [place] [address] Performed By: #### A LLBG ####[facility] LABCLIA [id number] [place] [id number] [place] Lactate [Moles/Vol] 1.0 mmol/L Normal 0.5-2.2 [facility] Comment on above: Order Comment: Speci men Type: ARTERIAL BLOOD SPECIMENOrdering Facility: [facility] Address: [address] [place] [address] Performed By: #### A LLBG ####[facility] LABCLIA [id number] [place] [address] [place] LITERS 1 Liters/min Normal [facility] Comment on above: Order Comment: Speci men Type: ARTERIAL BLOOD SPECIMENOrdering Facility: [facility] Address: [address] [place] [address] Performed By: #### A LLBG ####[facility] LABCLIA [id number] [place] [address] [place] Methemoglobin (Bld) [Mass fraction] 1.6 % High 0.0-1.5 [facility] Comment on above: Order Comment: Speci men Type: ARTERIAL BLOOD SPECIMENOrdering Facility: [facility] Address: [address] [place] [address] Performed By: #### A LLBG ####[facility] LABCLIA [id number] [place] [address] [place] O2 THERAPY NC = Nasal Cannula Normal [facility] Comment on above: Order Comment: Speci men Type: ARTERIAL BLOOD SPECIMENOrdering Facility: [facility] Address: [address] [place] [address] Performed By: #### A LLBG ####[facility] LABCLIA [id number] [place] [id number] [place] Oxygen (Bld) [Partial pressure] 139 mm Hg High 85-95 [facility] Comment on above: Order Comment: Speci men Type: ARTERIAL BLOOD SPECIMENOrdering Facility: [facility] Address: [address] [place] [address] Performed By: #### A LLBG ####[facility] LABCLIA [id number] [place] [address] [place] Oxyhemoglobin (BldA) [Mass fraction] 97 % Normal 95-98 [facility] Comment on above: Order Comment: Speci men Type: ARTERIAL BLOOD SPECIMENOrdering Facility: [facility] Address: [address] [place] [address] Performed By: #### A LLBG ####[facility] LABCLIA [id number] [place] [address] [place] pH (Bld) 7.37 [pH] Normal 7.35-7.45 [facility] Comment on above: Order Comment: Speci men Type: ARTERIAL BLOOD SPECIMENOrdering Facility: [facility] Address: [address] [place] [address] Performed By: #### A LLBG ####[facility] LABCLIA [id number] [place] [address] [place] Potassium [Moles/Vol] 5.7 mmol/L High 3.5-5.0 [facility] Comment on above: Order Comment: Speci men Type: ARTERIAL BLOOD SPECIMENOrdering Facility: [facility] Address: [address] [place] [address] Performed By: #### A LLBG ####[facility] LABCLIA [id number] [place] [address] [place] Sodium [Moles/Vol] 129 mmol/L Low 136-144 [facility] Comment on above: Order Comment: Speci men Type: ARTERIAL BLOOD SPECIMENOrdering Facility: [facility] Address: [address] [place] [address] Performed By: #### A LLBG ####[facility] LABCLIA [id number] [place] [address] [place] Base excess Calc (Bld) [Moles/Vol] 1 mmol/L Normal 0-2 [facility] Comment on above: Order Comment: Speci men Type: ARTERIAL BLOOD SPECIMENOrdering Facility: [facility] Address: [address] [place] [address] Performed By: #### A LLBG ####[facility] LABIA [id number] [place] [address] [place] Body temperature 98.6 [degF] Normal [facility] Comment on above: Order Comment: Speci men Type: ARTERIAL BLOOD SPECIMENOrdering Facility: [facility] Address: [address] [place] [address] Performed By: #### A LLBG ####[facility] LABIA [id number] [place] [address] [place] Calcium.ionized (Bld) [Mass/Vol] 1.13 mmol/L Normal 1.08-1.30 [facility] Comment on above: Order Comment: Speci men Type: ARTERIAL BLOOD SPECIMENOrdering Facility: [facility] Address: [address] [place] [address] Performed By: #### A LLBG ####[facility] LABIA [id number] [place] [address] [place] Calcium.ionized adjusted to pH 7.4 (BldA) [Moles/Vol] 1.10 mmol/L Normal 1.08-1.30 [facility] Comment on above: Order Comment: Speci men Type: ARTERIAL BLOOD SPECIMENOrdering Facility: [facility] Address: [address] [place] [address] Performed By: #### A LLBG ####[facility] LABIA [id number] [place] [address] [place] Carboxyhemoglobin (BldA) [Mass fraction] 2.0 % Normal 0.0-2.0 [facility] Comment on above: Order Comment: Speci men Type: ARTERIAL BLOOD SPECIMENOrdering Facility: [facility] Address: [address] [place] [address] Result Comment: Carb oxyhemoglobin Reference Range for Smokers: 2.0-8.0% Performed By: #### A LLBG ####[facility] LABCLIA [id number] [place] [address] [place] CO2 (Bld) [Partial pressure] 47 mm Hg High 36-46 [facility] Comment on above: Order Comment: Speci men Type: ARTERIAL BLOOD SPECIMENOrdering Facility: [facility] Address: [address] [place] [address] Performed By: #### A LLBG ####[facility] LABCLIA [id number] [place] [address] [place] Glucose [Mass/Vol] 263 mg/dL High 60-105 [facility] Comment on above: Order Comment: Speci men Type: ARTERIAL BLOOD SPECIMENOrdering Facility: [facility] Address: [address] [place] [address] Performed By: #### A LLBG ####[facility] LABCLIA [id number] [place] [address] [place] HCO3 (Bld) [Moles/Vol] 26 mmol/L Normal 22-26 [facility] Comment on above: Order Comment: Speci men Type: ARTERIAL BLOOD SPECIMENOrdering Facility: [facility] Address: [address] [place] [address] Performed By: #### A LLBG ####[facility] LABCLIA [id number] [place] [address] [place] Hematocrit (Bld) [Volume fraction] 28.2 % Low 39.0-51.0 [facility] Comment on above: Order Comment: Speci men Type: ARTERIAL BLOOD SPECIMENOrdering Facility: [facility] Address: [address] [place] [address] Performed By: #### A LLBG ####[facility] LABCLIA [id number] [place] [address] [place] Hemoglobin (Bld) [Mass/Vol] 9.1 g/dL Low 13.0-17.0 [facility] Comment on above: Order Comment: Speci men Type: ARTERIAL BLOOD SPECIMENOrdering Facility: [facility] Address: [address] [place] [address] Performed By: #### A LLBG ####[facility] LABCLIA [id number] [place] [address] [place] Lactate [Moles/Vol] 1.1 mmol/L Normal 0.5-2.2 [facility] Comment on above: Order Comment: Speci men Type: ARTERIAL BLOOD SPECIMENOrdering Facility: [facility] Address: [address] [place] [address] Performed By: #### A LLBG ####[facility] LABCLIA [id number] [place] [address] [place] LITERS 1 Liters/min Normal [facility] Comment on above: Order Comment: Speci men Type: ARTERIAL BLOOD SPECIMENOrdering Facility: [facility] Address: [address] [place] [address] Performed By: #### A LLBG ####[facility] LABCLIA [id number] [place] [address] [place] Methemoglobin (Bld) [Mass fraction] 1.4 % Normal 0.0-1.5 [facility] Comment on above: Order Comment: Speci men Type: ARTERIAL BLOOD SPECIMENOrdering Facility: [facility] Address: [address] [place] [address] Performed By: #### A LLBG ####[facility] LABCLIA [id number] [place] [address] [place] O2 THERAPY NC = Nasal Cannula Normal [facility] Comment on above: Order Comment: Speci men Type: ARTERIAL BLOOD SPECIMENOrdering Facility: [facility] Address: [address] [place] [address] Performed By: #### A LLBG ####[facility] LABCLIA [id number] [place] [address] [place] Oxygen (Bld) [Partial pressure] 142 mm Hg High 85-95 [facility] Comment on above: Order Comment: Speci men Type: ARTERIAL BLOOD SPECIMENOrdering Facility: [facility] Address: [address] [place] [address] Performed By: #### A LLBG ####[facility] LABCLIA [id number] [place] [address] [place] Oxyhemoglobin (BldA) [Mass fraction] 96 % Normal 95-98 [facility] Comment on above: Order Comment: Speci men Type: ARTERIAL BLOOD SPECIMENOrdering Facility: [facility] Address: [address] [place] [address] Performed By: #### A LLBG ####[facility] LABCLIA [id number] [place] [address] [place] pH (Bld) 7.36 [pH] Normal 7.35-7.45 [facility] Comment on above: Order Comment: Speci men Type: ARTERIAL BLOOD SPECIMENOrdering Facility: [facility] Address: [address] [place] [address] Performed By: #### A LLBG ####[facility] LABCLIA [id number] [place] [address] [place] Potassium [Moles/Vol] 5.6 mmol/L High 3.5-5.0 [facility] Comment on above: Order Comment: Speci men Type: ARTERIAL BLOOD SPECIMENOrdering Facility: [facility] Address: [address] [place] [address] Performed By: #### A LLBG ####[facility] LABCLIA [id number] [place] [address] [place] Sodium [Moles/Vol] 126 mmol/L Low 136-144 [facility] Comment on above: Order Comment: Speci men Type: ARTERIAL BLOOD SPECIMENOrdering Facility: [facility] Address: [address] [place] [address] Performed By: #### A LLBG ####[facility] LABCLIA [id number] [place] [address] [place] Base excess Calc (Bld) [Moles/Vol] 1 mmol/L Normal 0-2 [facility] Comment on above: Order Comment: Speci men Type: ARTERIAL BLOOD SPECIMENOrdering Facility: [facility] Address: [address] [place] [address] Performed By: #### A LLBG ####[facility] LABCLIA [id number] [place] [address] [place] Body temperature 98.6 [degF] Normal [facility] Comment on above: Order Comment: Speci men Type: ARTERIAL BLOOD SPECIMENOrdering Facility: [facility] Address: [address] [place] [address] Performed By: #### A LLBG ####[facility] LABCLIA [id number] [place] [address] [place] Order Comment: Speci men Type: VENOUS BLOOD SPECIMENOrdering Facility: [facility] Address: [address] [place] [address] Performed By: #### 2 4344-4 ####[facility] LABCLIA [id number] [place] [address] [place] Calcium.ionized (Bld) [Mass/Vol] 1.16 mmol/L Normal 1.08-1.30 [facility] Comment on above: Order Comment: Speci men Type: ARTERIAL BLOOD SPECIMENOrdering Facility: [facility] Address: [address] [place] [address] Performed By: #### A LLBG ####[facility] LABCLIA [id number] [place] [address] [place] Order Comment: Speci men Type: VENOUS BLOOD SPECIMENOrdering Facility: [facility] Address: [address] [place] [address] Performed By: #### 2 4344-4 ####[facility] LABCLIA [id number] [place] [address] [place] Calcium.ionized adjusted to pH 7.4 (BldA) [Moles/Vol] 1.14 mmol/L Normal 1.08-1.30 [facility] Comment on above: Order Comment: Speci men Type: ARTERIAL BLOOD SPECIMENOrdering Facility: [facility] Address: [address] [place] [address] Performed By: #### A LLBG ####[facility] LABCLIA [id number] [place] [address] [place] Carboxyhemoglobin (BldA) [Mass fraction] 2.0 % Normal 0.0-2.0 [facility] Comment on above: Order Comment: Speci men Type: ARTERIAL BLOOD SPECIMENOrdering Facility: [facility] Address: [address] [place] [address] Result Comment: Carb oxyhemoglobin Reference Range for Smokers: 2.0-8.0% Performed By: #### A LLBG ####[facility] LABCLIA [id number] [place] [address] [place] CO2 (Bld) [Partial pressure] 47 mm Hg High 36-46 [facility] Comment on above: Order Comment: Speci men Type: ARTERIAL BLOOD SPECIMENOrdering Facility: [facility] Address: [address] [place] [address] Performed By: #### A LLBG ####[facility] LABCLIA [id number] [place] [address] [place] Glucose [Mass/Vol] 228 mg/dL High 60-105 [facility] Comment on above: Order Comment: Speci men Type: ARTERIAL BLOOD SPECIMENOrdering Facility: [facility] Address: [address] [place] [address] Performed By: #### A LLBG ####[facility] LABCLIA [id number] [place] [address] [place] HCO3 (Bld) [Moles/Vol] 26 mmol/L Normal 22-26 [facility] Comment on above: Order Comment: Speci men Type: ARTERIAL BLOOD SPECIMENOrdering Facility: [facility] Address: [address] [place] [address] Performed By: #### A LLBG ####[facility] LABCLIA [id number] [place] [address] [place] Hematocrit (Bld) [Volume fraction] 27.1 % Low 39.0-51.0 [facility] Comment on above: Order Comment: Speci men Type: ARTERIAL BLOOD SPECIMENOrdering Facility: [facility] Address: [address] [place] [address] Performed By: #### A LLBG ####[facility] LABCLIA [id number] [place] [address] [place] Hemoglobin (Bld) [Mass/Vol] 8.7 g/dL Low 13.0-17.0 [facility] Comment on above: Order Comment: Speci men Type: ARTERIAL BLOOD SPECIMENOrdering Facility: [facility] Address: [address] [place] [address] Performed By: #### A LLBG ####[facility] LABCLIA [id number] [place] [address] [place] Lactate [Moles/Vol] 1.2 mmol/L Normal 0.5-2.2 [facility] Comment on above: Order Comment: Speci men Type: ARTERIAL BLOOD SPECIMENOrdering Facility: [facility] Address: [address] [place] [address] Performed By: #### A LLBG ####[facility] LABCLIA [id number] [place] [address] [place] Methemoglobin (Bld) [Mass fraction] 1.4 % Normal 0.0-1.5 [facility] Comment on above: Order Comment: Speci men Type: ARTERIAL BLOOD SPECIMENOrdering Facility: [facility] Address: [address] [place] [address] Performed By: #### A LLBG ####[facility] LABCLIA [id number] [place] [address] [place] O2 THERAPY NC = Nasal Cannula Normal [facility] Comment on above: Order Comment: Speci men Type: ARTERIAL BLOOD SPECIMENOrdering Facility: [facility] Address: [address] [place] [address] Performed By: #### A LLBG ####[facility] LABCLIA [id number] [place] [address] [place] Order Comment: Speci men Type: VENOUS BLOOD SPECIMENOrdering Facility: [facility] Address: [address] [place], [place] [address] Performed By: #### 2 4344-4 ####[facility] LABCLIA [id number] [place] [address] [place] Oxygen (Bld) [Partial pressure] 103 mm Hg High 85-95 [facility] Comment on above: Order Comment: Speci men Type: ARTERIAL BLOOD SPECIMENOrdering Facility: [facility] Address: [address] [place] [address] Performed By: #### A LLBG ####[facility] LABCLIA [id number] [place] [address] [place] Oxyhemoglobin (BldA) [Mass fraction] 95 % Normal 95-98 [facility] Comment on above: Order Comment: Speci men Type: ARTERIAL BLOOD SPECIMENOrdering Facility: [facility] Address: [address] [place] [address] Performed By: #### A LLBG ####[facility] LABCLIA [id number] [address] [address] [place] pH (Bld) 7.37 [pH] Normal 7.35-7.45 [facility] Comment on above: Order Comment: Speci men Type: ARTERIAL BLOOD SPECIMENOrdering Facility: [facility] Address: [address] [place] [address] Performed By: #### A LLBG ####[facility] LABCLIA [id number] [place] [address] [place] Potassium [Moles/Vol] 5.4 mmol/L High 3.5-5.0 [facility] Comment on above: Order Comment: Speci men Type: ARTERIAL BLOOD SPECIMENOrdering Facility: [facility] Address: [address] [place] [address] Performed By: #### A LLBG ####[facility] LABCLIA [id number] [place] [address] [place] Order Comment: Speci men Type: VENOUS BLOOD SPECIMENOrdering Facility: [facility] Address: [address] [place] [address] Performed By: #### 2 4344-4 ####[facility] LABCLIA [id number] [place] [address] [place] Sodium [Moles/Vol] 129 mmol/L Low 136-144 [facility] Comment on above: Order Comment: Speci men Type: ARTERIAL BLOOD SPECIMENOrdering Facility: [facility] Address: [address] [place], [place] [id number] Performed By: #### A LLBG ####[facility] LABCLIA [id number] [place] [address] [place] Base excess Calc (Bld) [Moles/Vol] 0 mmol/L Normal 0-2 [facility] Comment on above: Order Comment: Speci men Type: ARTERIAL BLOOD SPECIMENOrdering Facility: [facility] Address: [address] [place] [address] Performed By: #### A LLBG ####[facility] LABIA [id number] [place] [address] [place] Body temperature 98.6 [degF] Normal [facility] Comment on above: Order Comment: Speci men Type: ARTERIAL BLOOD SPECIMENOrdering Facility: [facility] Address: [address] [place] [address] Performed By: #### A LLBG ####[facility] LABIA [id number] [place] [address] [place] Calcium.ionized (Bld) [Mass/Vol] 1.16 mmol/L Normal 1.08-1.30 [facility] Comment on above: Order Comment: Speci men Type: ARTERIAL BLOOD SPECIMENOrdering Facility: [facility] Address: [address] [place] [address] Performed By: #### A LLBG ####[facility] LABIA [id number] [place] [address] [place] Calcium.ionized adjusted to pH 7.4 (BldA) [Moles/Vol] 1.13 mmol/L Normal 1.08-1.30 [facility] Comment on above: Order Comment: Speci men Type: ARTERIAL BLOOD SPECIMENOrdering Facility: [facility] Address: [address] [place] [address] Performed By: #### A LLBG ####[facility] LABIA [id number] [place] [address] [place] Carboxyhemoglobin (BldA) [Mass fraction] 1.9 % Normal 0.0-2.0 [facility] Comment on above: Order Comment: Speci men Type: ARTERIAL BLOOD SPECIMENOrdering Facility: [facility] Address: [address] [place] [address] Result Comment: Carb oxyhemoglobin Reference Range for Smokers: 2.0-8.0% Performed By: #### A LLBG ####[facility] LABCLIA [id number] [place] [address] [place] CO2 (Bld) [Partial pressure] 46 mm Hg Normal 36-46 [facility] Comment on above: Order Comment: Speci men Type: ARTERIAL BLOOD SPECIMENOrdering Facility: [facility] Address: [address] [place] [address] Performed By: #### A LLBG ####[facility] LABCLIA [id number] [place] [address] [place] Glucose [Mass/Vol] 220 mg/dL High 60-105 [facility] Comment on above: Order Comment: Speci men Type: ARTERIAL BLOOD SPECIMENOrdering Facility: [facility] Address: [address] [place] [address] Performed By: #### A LLBG ####[facility] LABCLIA [id number] [place] [address] [place] HCO3 (Bld) [Moles/Vol] 25 mmol/L Normal 22-26 [facility] Comment on above: Order Comment: Speci men Type: ARTERIAL BLOOD SPECIMENOrdering Facility: [facility] Address: [address] [place] [address] Performed By: #### A LLBG ####[facility] LABCLIA [id number] [place] [address] [place] Hematocrit (Bld) [Volume fraction] 27.4 % Low 39.0-51.0 [facility] Comment on above: Order Comment: Speci men Type: ARTERIAL BLOOD SPECIMENOrdering Facility: [facility] Address: [address] [place] [address] Performed By: #### A LLBG ####[facility] LABCLIA [id number] [place] [address] [place] Hemoglobin (Bld) [Mass/Vol] 8.8 g/dL Low 13.0-17.0 [facility] Comment on above: Order Comment: Speci men Type: ARTERIAL BLOOD SPECIMENOrdering Facility: [facility] Address: [address] [place] [address] Performed By: #### A LLBG ####[facility] LABIA [id number] [place] [address] [place] Lactate [Moles/Vol] 1.6 mmol/L Normal 0.5-2.2 [facility] Comment on above: Order Comment: Speci men Type: ARTERIAL BLOOD SPECIMENOrdering Facility: [facility] Address: [address] [place] [address] Performed By: #### A LLBG ####[facility] LABIA [id number] [place] [address] [place] Methemoglobin (Bld) [Mass fraction] 1.4 % Normal 0.0-1.5 [facility] Comment on above: Order Comment: Speci men Type: ARTERIAL BLOOD SPECIMENOrdering Facility: [facility] Address: [address] [place] [address] Performed By: #### A LLBG ####[facility] LABIA [id number] [place] [address] [place] O2 THERAPY NC = Nasal Cannula Normal [facility] Comment on above: Order Comment: Speci men Type: ARTERIAL BLOOD SPECIMENOrdering Facility: [facility] Address: [address] [place] [address] Performed By: #### A LLBG ####[facility] LABIA [id number] [place] [address] [place] Oxygen (Bld) [Partial pressure] 124 mm Hg High 85-95 [facility] Comment on above: Order Comment: Speci men Type: ARTERIAL BLOOD SPECIMENOrdering Facility: [facility] Address: [address] [place] [address] Performed By: #### A LLBG ####[facility] LABCLIA [id number] [place] [address] [place] Oxyhemoglobin (BldA) [Mass fraction] 96 % Normal 95-98 [facility] Comment on above: Order Comment: Speci men Type: ARTERIAL BLOOD SPECIMENOrdering Facility: [facility] Address: [address] [place] [address] Performed By: #### A LLBG ####[facility] LABIA [id number] [place] [address] [place] pH (Bld) 7.35 [pH] Normal 7.35-7.45 [facility] Comment on above: Order Comment: Speci men Type: ARTERIAL BLOOD SPECIMENOrdering Facility: [facility] Address: [address] [place] [address] Performed By: #### A LLBG ####[facility] LABCLIA [id number] [place] [address] [place] Potassium [Moles/Vol] 5.3 mmol/L High 3.5-5.0 [facility] Comment on above: Order Comment: Speci men Type: ARTERIAL BLOOD SPECIMENOrdering Facility: [facility] Address: [address] [place] [address] Performed By: #### A LLBG ####[facility] LABIA [id number] [place] [address] [place] Sodium [Moles/Vol] 129 mmol/L Low 136-144 [facility] Comment on above: Order Comment: Speci men Type: ARTERIAL BLOOD SPECIMENOrdering Facility: [facility] Address: [address] [place] [address] Performed By: #### A LLBG ####[facility] LABCLIA [id number] [place] [address] [place] Base excess Calc (Bld) [Moles/Vol] 0 mmol/L Normal 0-2 [facility] Comment on above: Order Comment: Speci men Type: ARTERIAL BLOOD SPECIMENOrdering Facility: [facility] Address: [address] [place] [address] Performed By: #### A LLBG ####[facility] [id number] [place] [address] [place] Body temperature 98.6 [degF] Normal [facility] Comment on above: Order Comment: Speci men Type: ARTERIAL BLOOD SPECIMENOrdering Facility: [facility] Address: [address] [place] [address] Performed By: #### A LLBG ####[facility] [id number] [place] [address] [place] Calcium.ionized (Bld) [Mass/Vol] 1.16 mmol/L Normal 1.08-1.30 [facility] Comment on above: Order Comment: Speci men Type: ARTERIAL BLOOD SPECIMENOrdering Facility: [facility] Address: [address] [place] [address] Performed By: #### A LLBG ####[facility] [id number] [place] [address] [place] Calcium.ionized adjusted to pH 7.4 (BldA) [Moles/Vol] 1.16 mmol/L Normal 1.08-1.30 [facility] Comment on above: Order Comment: Speci men Type: ARTERIAL BLOOD SPECIMENOrdering Facility: [facility] Address: [address] [place] [address] Performed By: #### A LLBG ####[facility] [id number] [place] [address] [place] Carboxyhemoglobin (BldA) [Mass fraction] 1.8 % Normal 0.0-2.0 [facility] Comment on above: Order Comment: Speci men Type: ARTERIAL BLOOD SPECIMENOrdering Facility: [facility] Address: [address] [place] [address] Result Comment: Carb oxyhemoglobin Reference Range for Smokers: 2.0-8.0% Performed By: #### A LLBG ####[facility] LABCLIA [id number] [place] [address] [place] CO2 (Bld) [Partial pressure] 40 mm Hg Normal 36-46 [facility] Comment on above: Order Comment: Speci men Type: ARTERIAL BLOOD SPECIMENOrdering Facility: [facility] Address: [address] [place] [address] Performed By: #### A LLBG ####[facility] LABCLIA [id number] [place] [address] [place] Glucose [Mass/Vol] 232 mg/dL High 60-105 [facility] Comment on above: Order Comment: Speci men Type: ARTERIAL BLOOD SPECIMENOrdering Facility: [facility] Address: [address] [place] [address] Performed By: #### A LLBG ####[facility] LABCLIA [id number] [place] [address] [place] HCO3 (Bld) [Moles/Vol] 24 mmol/L Normal 22-26 [facility] Comment on above: Order Comment: Speci men Type: ARTERIAL BLOOD SPECIMENOrdering Facility: [facility] Address: [address] [place] [address] Performed By: #### A LLBG ####[facility] LABCLIA [id number] [place] [address] [place] Hematocrit (Bld) [Volume fraction] 27.9 % Low 39.0-51.0 [facility] Comment on above: Order Comment: Speci men Type: ARTERIAL BLOOD SPECIMENOrdering Facility: [facility] Address: [address] [place] [address] Performed By: #### A LLBG ####[facility] LABCLIA [id number] [place] [address] [place] Hemoglobin (Bld) [Mass/Vol] 9.0 g/dL Low 13.0-17.0 [facility] Comment on above: Order Comment: Speci men Type: ARTERIAL BLOOD SPECIMENOrdering Facility: [facility] Address: [address] [place] [address] Performed By: #### A LLBG ####[facility] LABIA [id number] [place] [address] [place] Lactate [Moles/Vol] 1.5 mmol/L Normal 0.5-2.2 [facility] Comment on above: Order Comment: Speci men Type: ARTERIAL BLOOD SPECIMENOrdering Facility: [facility] Address: [address] [place] [address] Performed By: #### A LLBG ####[facility] LABIA [id number] [place] [address] [place] Methemoglobin (Bld) [Mass fraction] 1.6 % High 0.0-1.5 [facility] Comment on above: Order Comment: Speci men Type: ARTERIAL BLOOD SPECIMENOrdering Facility: [facility] Address: [address] [place] [address] Performed By: #### A LLBG ####[facility] LABIA [id number] [place] [address] [place] O2 THERAPY NC = Nasal Cannula Normal [facility] Comment on above: Order Comment: Speci men Type: ARTERIAL BLOOD SPECIMENOrdering Facility: [facility] Address: [address] [place] [address] Performed By: #### A LLBG ####[facility] LABIA [id number] [place] [address] [place] Oxygen (Bld) [Partial pressure] 128 mm Hg High 85-95 [facility] Comment on above: Order Comment: Speci men Type: ARTERIAL BLOOD SPECIMENOrdering Facility: [facility] Address: [address] [place] [address] Performed By: #### A LLBG ####[facility] LABCLIA [id number] [place] [address] [place] Oxyhemoglobin (BldA) [Mass fraction] 96 % Normal 95-98 [facility] Comment on above: Order Comment: Speci men Type: ARTERIAL BLOOD SPECIMENOrdering Facility: [facility] Address: [address] [place] [address] Performed By: #### A LLBG ####[facility] LABIA [id number] [place] [address] [place] pH (Bld) 7.40 [pH] Normal 7.35-7.45 [facility] Comment on above: Order Comment: Speci men Type: ARTERIAL BLOOD SPECIMENOrdering Facility: [facility] Address: [address] [place] [address] Performed By: #### A LLBG ####[facility] LABIA [id number] [place] [address] [place] Potassium [Moles/Vol] 5.9 mmol/L High 3.5-5.0 [facility] Comment on above: Order Comment: Speci men Type: ARTERIAL BLOOD SPECIMENOrdering Facility: [facility] Address: [address] [place] [address] Performed By: #### A LLBG ####[facility] LABIA [id number] [place] [address] [place] Sodium [Moles/Vol] 129 mmol/L Low 136-144 [facility] Comment on above: Order Comment: Speci men Type: ARTERIAL BLOOD SPECIMENOrdering Facility: [facility] Address: [address] [place] [address] Performed By: #### A LLBG ####[facility] LABIA [id number] [place] [address] [place] CBC panel Auto (Bld)on 09-20 Erythrocyte distribution width (RBC) [Ratio] 16.9 % High 11.5-15.0 [facility] Comment on above: Order Comment: Speci men Type: BLOOD SPECIMENOrdering Facility: [facility] Address: [address] [place] [address] Performed By: #### 5 8410-2 ####[facility] LABIA [id number] [place] [address] [place] Hematocrit (Bld) [Volume fraction] 24.8 % Low 39.0-51.0 [facility] Comment on above: Order Comment: Speci men Type: BLOOD SPECIMENOrdering Facility: [facility] Address: [address] [place] [address] Performed By: #### 5 8410-2 ####[facility] LABIA [id number] [place] [address] [place] Hemoglobin (Bld) [Mass/Vol] 8.8 g/dL Low 13.0-17.0 [facility] Comment on above: Order Comment: Speci men Type: BLOOD SPECIMENOrdering Facility: [facility] Address: [address] [place] [address] Performed By: #### 5 8410-2 ####[facility] LABIA [id number] [place] [address] [place] MCH (RBC) [Entitic mass] 30.0 pg Normal 26.0-34.0 [facility] Comment on above: Order Comment: Speci men Type: BLOOD SPECIMENOrdering Facility: [facility] Address: [address] [place] [address] Performed By: #### 5 8410-2 ####[facility] LABIA [id number] [place] [address] [place] MCHC (RBC) [Mass/Vol] 35.5 g/dL Normal 30.5-36.0 [facility] Comment on above: Order Comment: Speci men Type: BLOOD SPECIMENOrdering Facility: [facility] Address: [address] [place] [address] Performed By: #### 5 8410-2 ####[facility] LABCLIA [id number] [place] [address] [place] MCV (RBC) [Entitic vol] 84.6 fL Normal 80.0-100.0 [facility] Comment on above: Order Comment: Speci men Type: BLOOD SPECIMENOrdering Facility: [facility] Address: [address] [place] [address] Performed By: #### 5 8410-2 ####[facility] LABCLIA [id number] [place] [address] [place] Nucleated RBC (Bld) [#/Vol] 10*3/uL Normal <0.01 [facility] Comment on above: Order Comment: Speci men Type: BLOOD SPECIMENOrdering Facility: [facility] Address: [address] [place] [address] Performed By: #### 5 8410-2 ####[facility] LABCLIA [id number] [place] [address] [place] Platelet mean volume (Bld) [Entitic vol] 11.6 fL Normal 9.0-12.7 [facility] Comment on above: Order Comment: Speci men Type: BLOOD SPECIMENOrdering Facility: [facility] Address: [address] [place] [address] Performed By: #### 5 8410-2 ####[facility] LABCLIA [id number] [place] [address] [place] Platelets (Bld) [#/Vol] 117 10*3/uL Low 150-400 [facility] Comment on above: Order Comment: Speci men Type: BLOOD SPECIMENOrdering Facility: [facility] Address: [address] [place] [address] Performed By: #### 5 8410-2 ####[facility] LABCLIA [id number] [place] [address] [place] RBC (Bld) [#/Vol] 2.93 10*6/uL Low 4.20-6.00 [facility] Comment on above: Order Comment: Speci men Type: BLOOD SPECIMENOrdering Facility: [facility] Address: [address] [place] [address] Performed By: #### 5 8410-2 ####[facility] LABIA [id number] [place] [address] [place] WBC (Bld) [#/Vol] 20.74 10*3/uL High 3.70-11.00 [facility] Comment on above: Order Comment: Speci men Type: BLOOD SPECIMENOrdering Facility: [facility] Address: [address] [place] [address] Performed By: #### 5 8410-2 ####[facility] LABIA [id number] [place] [address] [place] CONSULTon 09-21-2023 CONSULT Normal [facility] CONSULT PROGon 09-21-2023 CONSULT PROG Normal [facility] Comprehensive metabolic 2000 panelon 09-21-2023 Albumin [Mass/Vol] 3.3 g/dL Low 3.9-4.9 [facility] Comment on above: Order Comment: Speci men Type: BLOOD SPECIMENOrdering Facility: [facility] Address: [address] [place] [address] Performed By: #### 2 4323-8 ####[facility] LABCLIA [id number] [place] [address] [place] ALP [Catalytic activity/Vol] 59 U/L Normal 38-113 [facility] Comment on above: Order Comment: Speci men Type: BLOOD SPECIMENOrdering Facility: [facility] Address: [address] [place] [id number] Performed By: #### 2 4323-8 ####[facility] LABCLIA [id number] [place] [id number] [place] ALT [Catalytic activity/Vol] 19 U/L Normal 10-54 [facility] Comment on above: Order Comment: Speci men Type: BLOOD SPECIMENOrdering Facility: [facility] Address: [address] [place] [address] Performed By: #### 2 4323-8 ####[facility] LABCLIA [id number] [place] [address] [place] Anion gap [Moles/Vol] 12 mmol/L Normal 8-15 [facility] Comment on above: Order Comment: Speci men Type: BLOOD SPECIMENOrdering Facility: [facility] Address: [address] [place] [address] Performed By: #### 2 4323-8 ####[facility] LABCLIA [id number] [place] [address] [place] AST [Catalytic activity/Vol] 30 U/L Normal 14-40 [facility] Comment on above: Order Comment: Speci men Type: BLOOD SPECIMENOrdering Facility: [facility] Address: [address] [place] [id number] Performed By: #### 2 4323-8 ####[facility] LABCLIA [id number] [place] [id number] [place] Bilirubin [Mass/Vol] 1.2 mg/dL Normal 0.2-1.3 [facility] Comment on above: Order Comment: Speci men Type: BLOOD SPECIMENOrdering Facility: [facility] Address: [address] [place], [place] [address] Performed By: #### 2 4323-8 ####[facility] LABCLIA [id number] [place] [address] [place] Calcium [Mass/Vol] 8.6 mg/dL Normal 8.5-10.2 [facility] Comment on above: Order Comment: Speci men Type: BLOOD SPECIMENOrdering Facility: [facility] Address: [address] [place] [address] Performed By: #### 2 4323-8 ####[facility] LABCLIA [id number] [place] [address] [place] Chloride [Moles/Vol] 96 mmol/L Low 98-107 [facility] Comment on above: Order Comment: Speci men Type: BLOOD SPECIMENOrdering Facility: [facility] Address: [address] [place] [address] Performed By: #### 2 4323-8 ####[facility] LABCLIA [id number] [place] [address] [place] CO2 [Moles/Vol] 24 mmol/L Normal 22-30 [facility] Comment on above: Order Comment: Speci men Type: BLOOD SPECIMENOrdering Facility: [facility] Address: [address] [place] [address] Performed By: #### 2 4323-8 ####[facility] LABCLIA [id number] [place] [address] [place] Creatinine [Mass/Vol] 1.37 mg/dL High 0.73-1.22 [facility] Comment on above: Order Comment: Speci men Type: BLOOD SPECIMENOrdering Facility: [facility] Address: [address] [place], [place] [id number] Performed By: #### 2 4323-8 ####[facility] LABCLIA [id number] [place] [address] [place] Creatinine and Glomerular filtration rate.predicted panel (S/P/Bld) 55 mL/min/1.73m??? Low >=60 [facility] Comment on above: Order Comment: Ricardo ignacio Type: BLOOD SPECIMENOrdering Facility: [facility] Address: [address] [place] [address] Result Comment: Aileen mated Glomerular Filtration Rate [...] reflect actual GFR. Performed By: #### 2 4323-8 ####[facility] LABIA [id number] [place] [address] [place] Glucose [Mass/Vol] 230 mg/dL High 74-99 [facility] Comment on above: Order Comment: Ricardo ignacio Type: BLOOD SPECIMENOrdering Facility: [facility] Address: [address] [place] [address] Result Comment: The [place] [employer] (ADA) provides guidance for cutoff values for fasting glucose and random glucose. The ADA defines fasting as no caloric intake for at least 8 hours. Fasting plasma glucose results between 100 to 125 mg/dL indicate increased risk for diabetes (prediabetes).Fasting plasma glucose results greater than or equal to 126 mg/dL meet the criteria for diagnosis of diabetes. In the absence of unequivocal hyperglycemia, results should be confirmed by repeat testing. In a patient with classic symptoms of hyperglycemia or hyperglycemic crisis, random plasma glucose results greater than or equal to 200 mg/dL meet the criteria for diagnosis of diabetes.Reference: Standards of Medical Care in Diabetes 2016, [place] [employer]. Diabetes Care. 2016.39(Suppl 1). Performed By: #### 2 4323-8 ####[facility] LABIA [id number] [place] [address] [place] Potassium [Moles/Vol] 6.1 mmol/L Critically high 3.7-5.1 [facility] Comment on above: Order Comment: Ricardo ignacio Type: BLOOD SPECIMENOrdering Facility: [facility] Address: [address] [place] [address] Performed By: #### 2 4323-8 ####[facility] LABCLIA [id number] [place] [address] [place] Protein [Mass/Vol] 5.4 g/dL Low 6.3-8.0 [facility] Comment on above: Order Comment: Speci men Type: BLOOD SPECIMENOrdering Facility: [facility] Address: [address] [place] [address] Performed By: #### 2 4323-8 ####[facility] LABIA [id number] [place] [address] [place] Sodium [Moles/Vol] 132 mmol/L Low 136-144 [facility] Comment on above: Order Comment: Speci men Type: BLOOD SPECIMENOrdering Facility: [facility] Address: [address] [place] [address] Performed By: #### 2 4323-8 ####[facility] LABIA [id number] [place] [address] [place] Urea nitrogen [Mass/Vol] 26 mg/dL High 9-24 [facility] Comment on above: Order Comment: Speci men Type: BLOOD SPECIMENOrdering Facility: [facility] Address: [address] [place] [address] Performed By: #### 2 4323-8 ####[facility] [id number] [place] [id number] [place] [id number] 09-21-2023 ECG01 Normal [facility] Erythrocyte distribution wid th Auto (RBC) [Ratio]on 09-21-2023 Erythrocyte distribution width (RBC) [Ratio] 16.9 % High 11.5-15.0 [facility] Gas + CO Pnl BldVon 09-21-19 24 Body temperature 98.6 [degF] Normal [facility] Comment on above: Order Comment: Speci men Type: VENOUS BLOOD SPECIMENOrdering Facility: [facility] Address: [address] [place] [address] Performed By: #### 2 4344-4 ####[facility] LABCLIA [id number] [address] [place] Order Comment: Speci men Type: ARTERIAL BLOOD SPECIMENOrdering Facility: [facility] Address: [address] [place], [place] [address] Performed By: #### A LLBG ####[facility] LABCLIA [id number] [place] [address] [place] Lactate [Moles/Vol] 1.0 mmol/L Normal 0.5-2.2 [facility] Comment on above: Order Comment: Speci men Type: VENOUS BLOOD SPECIMENOrdering Facility: [facility] Address: [address] [place] [address] Performed By: #### 2 4344-4 ####[facility] LABCLIA [id number] [address] [place] Order Comment: Speci men Type: ARTERIAL BLOOD SPECIMENOrdering Facility: [facility] Address: [address] [place] [address] Performed By: #### A LLBG ####[facility] LABCLIA [id number] [address] [place] 1 Liters/min Normal [facility] Comment on above: Order Comment: Speci men Type: VENOUS BLOOD SPECIMENOrdering Facility: [facility] Address: [address] [place], [place] [address] Performed By: #### 2 4344-4 ####[facility] LABCLIA [id number] [address] [place] Order Comment: Speci men Type: ARTERIAL BLOOD SPECIMENOrdering Facility: [facility] Address: [address] [place], [place] [address] Performed By: #### A LLBG ####[facility] LABCLIA [id number] [place] [address] [place] O2 THERAPY NC = Nasal Cannula Normal [facility] Comment on above: Order Comment: Speci men Type: VENOUS BLOOD SPECIMENOrdering Facility: [facility] Address: [address] [place] [address] Performed By: #### 2 4344-4 ####[facility] LABCLIA [id number] [place] [address] [place] Order Comment: Speci men Type: ARTERIAL BLOOD SPECIMENOrdering Facility: [facility] Address: [address] [place] [address] Performed By: #### A LLBG ####[facility] LABCLIA [id number] [place] [address] [place] Gas and Carbon monoxide pane l (BldV)on 09-21-2023 Base excess Calc (BldV) [Moles/Vol] 4 mmol/L High 0-2 [facility] Comment on above: Order Comment: Speci men Type: VENOUS BLOOD SPECIMENOrdering Facility: [facility] Address: [address] [place] [address] Performed By: #### 2 4344-4 ####[facility] LABCLIA [id number] [place] [address] [place] Calcium.ionized (Bld) [Mass/Vol] 1.22 mmol/L Normal 1.08-1.30 [facility] Comment on above: Order Comment: Speci men Type: VENOUS BLOOD SPECIMENOrdering Facility: [facility] Address: [address] [place] [address] Performed By: #### 2 4344-4 ####[facility] LABCLIA [id number] [place] [address] [place] Calcium.ionized adjusted to pH 7.4 (BldA) [Moles/Vol] 1.19 mmol/L Normal 1.08-1.30 [facility] Comment on above: Order Comment: Speci men Type: VENOUS BLOOD SPECIMENOrdering Facility: [facility] Address: [address] [place] [id number] Performed By: #### 2 4344-4 ####[facility] LABCLIA [id number] [address] [address] [place] Carboxyhemoglobin (BldV) [Mass fraction] 1.9 % Normal 0.0-2.0 [facility] Comment on above: Order Comment: Speci men Type: VENOUS BLOOD SPECIMENOrdering Facility: [facility] Address: [address] [place] [address] Result Comment: Carb oxyhemoglobin Reference Range for Smokers: 2.0-8.0% Performed By: #### 2 4344-4 ####[facility] LABIA [id number] [place] [address] [place] CO2 (BldV) [Partial pressure] 54 mm[Hg] Normal 42-55 [facility] Comment on above: Order Comment: Speci men Type: VENOUS BLOOD SPECIMENOrdering Facility: [facility] Address: [address] [place], [place] [address] Performed By: #### 2 4344-4 ####[facility] LABCLIA [id number] [place] [address] [place] Glucose [Mass/Vol] 124 mg/dL High 60-105 [facility] Comment on above: Order Comment: Speci men Type: VENOUS BLOOD SPECIMENOrdering Facility: [facility] Address: [address] [place] [address] Performed By: #### 2 4344-4 ####[facility] LABCLIA [id number] [place] [address] [place] HCO3 (Bld) [Moles/Vol] 30 mmol/L High 24-28 [facility] Comment on above: Order Comment: Speci men Type: VENOUS BLOOD SPECIMENOrdering Facility: [facility] Address: [address] [place] [address] Performed By: #### 2 4344-4 ####[facility] LABCLIA [id number] [place] [address] [place] Hematocrit (Bld) [Volume fraction] 27.2 % Low 39.0-51.0 [facility] Comment on above: Order Comment: Speci men Type: VENOUS BLOOD SPECIMENOrdering Facility: [facility] Address: [address] [place] [address] Performed By: #### 2 4344-4 ####[facility] LABIA [id number] [place] [address] [place] Hemoglobin (Bld) [Mass/Vol] 8.8 g/dL Low 13.0-17.0 [facility] Comment on above: Order Comment: Speci men Type: VENOUS BLOOD SPECIMENOrdering Facility: [facility] Address: [address] [place] [address] Performed By: #### 2 4344-4 ####[facility] LABIA [id number] [place] [address] [place] Methemoglobin (Bld) [Mass fraction] 1.2 % Normal 0.0-1.5 [facility] Comment on above: Order Comment: Speci men Type: VENOUS BLOOD SPECIMENOrdering Facility: [facility] Address: [address] [place] [address] Performed By: #### 2 4344-4 ####[facility] LABIA [id number] [place] [address] [place] Oxygen (BldV) [Partial pressure] 35 mm[Hg] Normal 35-45 [facility] Comment on above: Order Comment: Speci men Type: VENOUS BLOOD SPECIMENOrdering Facility: [facility] Address: [address] [place] [address] Performed By: #### 2 4344-4 ####[facility] LABIA [id number] [place] [id number] [address] [place] Oxygen saturation in Venous blood 61 % Normal 60-85 [facility] Comment on above: Order Comment: Speci men Type: VENOUS BLOOD SPECIMENOrdering Facility: [facility] Address: [address] [place] [address] Performed By: #### 2 4344-4 ####[facility] LABCLIA [id number] [address] [address] [place] Oxyhemoglobin (BldV) [Mass fraction] 59 % Low 60-85 [facility] Comment on above: Order Comment: Speci men Type: VENOUS BLOOD SPECIMENOrdering Facility: [facility] Address: [address] [place] [address] Performed By: #### 2 4344-4 ####[facility] LABCLIA [id number] [address] [address] [place] pH (BldV) 7.36 [pH] Normal 7.32-7.42 [facility] Comment on above: Order Comment: Speci men Type: VENOUS BLOOD SPECIMENOrdering Facility: [facility] Address: [address] [place], [place] [address] Performed By: #### 2 4344-4 ####[facility] LABCLIA [id number] [place] [address] [place] Potassium [Moles/Vol] 4.6 mmol/L Normal 3.5-5.0 [facility] Comment on above: Order Comment: Speci men Type: VENOUS BLOOD SPECIMENOrdering Facility: [facility] Address: [address] [place] [address] Performed By: #### 2 4344-4 ####[facility] LABIA [id number] [place] [address] [place] Sodium [Moles/Vol] 136 mmol/L Normal 136-144 [facility] Comment on above: Order Comment: Speci men Type: VENOUS BLOOD SPECIMENOrdering Facility: [facility] Address: [address] [place] [address] Performed By: #### 2 4344-4 ####[facility] LABIA [id number] [place] [address] [place] Base excess Calc (BldV) [Moles/Vol] 2 mmol/L Normal 0-2 [facility] Comment on above: Order Comment: Speci men Type: VENOUS BLOOD SPECIMENOrdering Facility: [facility] Address: [address] [place] [address] Performed By: #### 2 4344-4 ####[facility] LABIA [id number] [place] [address] [place] Calcium.ionized adjusted to pH 7.4 (BldA) [Moles/Vol] 1.12 mmol/L Normal 1.08-1.30 [facility] Comment on above: Order Comment: Speci men Type: VENOUS BLOOD SPECIMENOrdering Facility: [facility] Address: [address] [place] [address] Performed By: #### 2 4344-4 ####[facility] [id number] [place] [address] [place] Carboxyhemoglobin (BldV) [Mass fraction] 1.9 % Normal 0.0-2.0 [facility] Comment on above: Order Comment: Speci men Type: VENOUS BLOOD SPECIMENOrdering Facility: [facility] Address: [address] [place] [address] Result Comment: Carb oxyhemoglobin Reference Range for Smokers: 2.0-8.0% Performed By: #### 2 4344-4 ####[facility] LABIA [id number] [place] [address] [place] CO2 (BldV) [Partial pressure] 54 mm[Hg] Normal 42-55 [facility] Comment on above: Order Comment: Speci men Type: VENOUS BLOOD SPECIMENOrdering Facility: [facility] Address: [address] [place] [address] Performed By: #### 2 4344-4 ####[facility] LABCLIA [id number] [place] [address] [place] Glucose [Mass/Vol] 222 mg/dL High 60-105 [facility] Comment on above: Order Comment: Speci men Type: VENOUS BLOOD SPECIMENOrdering Facility: [facility] Address: [address] [place] [address] Performed By: #### 2 4344-4 ####[facility] LABCLIA [id number] [place] [address] [place] HCO3 (Bld) [Moles/Vol] 28 mmol/L Normal 24-28 [facility] Comment on above: Order Comment: Speci men Type: VENOUS BLOOD SPECIMENOrdering Facility: [facility] Address: [address] [place] [address] Performed By: #### 2 4344-4 ####[facility] LABCLIA [id number] [place] [address] [place] Hematocrit (Bld) [Volume fraction] 27.3 % Low 39.0-51.0 [facility] Comment on above: Order Comment: Speci men Type: VENOUS BLOOD SPECIMENOrdering Facility: [facility] Address: [address] [place] [address] Performed By: #### 2 4344-4 ####[facility] LABCLIA [id number] [place] [address] [place] Hemoglobin (Bld) [Mass/Vol] 8.8 g/dL Low 13.0-17.0 [facility] Comment on above: Order Comment: Speci men Type: VENOUS BLOOD SPECIMENOrdering Facility: [facility] Address: [address] [place] [address] Performed By: #### 2 4344-4 ####[facility] LABCLIA [id number] [place] [address] [place] Lactate [Moles/Vol] 1.1 mmol/L Normal 0.5-2.2 [facility] Comment on above: Order Comment: Speci men Type: VENOUS BLOOD SPECIMENOrdering Facility: [facility] Address: [address] [place] [address] Performed By: #### 2 4344-4 ####[facility] LABCLIA [id number] [address] [address] [place] Methemoglobin (Bld) [Mass fraction] 1.6 % High 0.0-1.5 [facility] Comment on above: Order Comment: Speci men Type: VENOUS BLOOD SPECIMENOrdering Facility: [facility] Address: [address] [place] [address] Performed By: #### 2 4344-4 ####[facility] LABCLIA [id number] [address] [address] [place] Oxygen (BldV) [Partial pressure] 37 mm[Hg] Normal 35-45 [facility] Comment on above: Order Comment: Speci men Type: VENOUS BLOOD SPECIMENOrdering Facility: [facility] Address: [address] [place] [address] Performed By: #### 2 4344-4 ####[facility] LABCLIA [id number] [address] [address] [place] Oxygen saturation in Venous blood 64 % Normal 60-85 [facility] Comment on above: Order Comment: Speci men Type: VENOUS BLOOD SPECIMENOrdering Facility: [facility] Address: [address] [place] [address] Performed By: #### 2 4344-4 ####[facility] LABCLIA [id number] [address] [address] [place] Oxyhemoglobin (BldV) [Mass fraction] 61 % Normal 60-85 [facility] Comment on above: Order Comment: Speci men Type: VENOUS BLOOD SPECIMENOrdering Facility: [facility] Address: [address] [place] [address] Performed By: #### 2 4344-4 ####[facility] LABCLIA [id number] [place] [address] [place] pH (BldV) 7.33 [pH] Normal 7.32-7.42 [facility] Comment on above: Order Comment: Speci men Type: VENOUS BLOOD SPECIMENOrdering Facility: [facility] Address: [address] [place] [address] Performed By: #### 2 4344-4 ####[facility] LABCLIA [id number] [place] [address] [place] Sodium [Moles/Vol] 130 mmol/L Low 136-144 [facility] Comment on above: Order Comment: Speci men Type: VENOUS BLOOD SPECIMENOrdering Facility: [facility] Address: [address] [place] [address] Performed By: #### 2 4344-4 ####[facility] LABIA [id number] [place] [address] [place] Base excess Calc (BldV) [Moles/Vol] 1 mmol/L Normal 0-2 [facility] Comment on above: Order Comment: Speci men Type: VENOUS BLOOD SPECIMENOrdering Facility: [facility] Address: [address] [place] [address] Performed By: #### 2 4344-4 ####[facility] LABIA [id number] [place] [address] [place] Body temperature 98.6 [degF] Normal [facility] Comment on above: Order Comment: Speci men Type: VENOUS BLOOD SPECIMENOrdering Facility: [facility] Address: [address] [place] [address] Performed By: #### 2 4344-4 ####[facility] LABIA [id number] [place] [address] [place] Calcium.ionized (Bld) [Mass/Vol] 1.17 mmol/L Normal 1.08-1.30 [facility] Comment on above: Order Comment: Speci men Type: VENOUS BLOOD SPECIMENOrdering Facility: [facility] Address: [address] [place] [address] Performed By: #### 2 4344-4 ####[facility] LABIA [id number] [place] [address] [place] Calcium.ionized adjusted to pH 7.4 (BldA) [Moles/Vol] 1.14 mmol/L Normal 1.08-1.30 [facility] Comment on above: Order Comment: Speci men Type: VENOUS BLOOD SPECIMENOrdering Facility: [facility] Address: [address] [place] [address] Performed By: #### 2 4344-4 ####[facility] [id number] [place] [address] [place] Carboxyhemoglobin (BldV) [Mass fraction] 0.6 % Normal 0.0-2.0 [facility] Comment on above: Order Comment: Speci men Type: VENOUS BLOOD SPECIMENOrdering Facility: [facility] Address: [address] [place] [address] Result Comment: Carb oxyhemoglobin Reference Range for Smokers: 2.0-8.0% Performed By: #### 2 4344-4 ####[facility] LABIA [id number] [place] [address] [place] CO2 (BldV) [Partial pressure] 47 mm[Hg] Normal 42-55 [facility] Comment on above: Order Comment: Speci men Type: VENOUS BLOOD SPECIMENOrdering Facility: [facility] Address: [address] [place] [address] Performed By: #### 2 4344-4 ####[facility] LABCLIA [id number] [place] [address] [place] Glucose [Mass/Vol] 225 mg/dL High 60-105 [facility] Comment on above: Order Comment: Speci men Type: VENOUS BLOOD SPECIMENOrdering Facility: [facility] Address: [address] [place] [address] Performed By: #### 2 4344-4 ####[facility] LABCLIA [id number] [place] [id number] [place] HCO3 (Bld) [Moles/Vol] 26 mmol/L Normal 24-28 [facility] Comment on above: Order Comment: Speci men Type: VENOUS BLOOD SPECIMENOrdering Facility: [facility] Address: [address] [place] [address] Performed By: #### 2 4344-4 ####[facility] LABCLIA [id number] [place] [address] [place] Hematocrit (Bld) [Volume fraction] 27.9 % Low 39.0-51.0 [facility] Comment on above: Order Comment: Speci men Type: VENOUS BLOOD SPECIMENOrdering Facility: [facility] Address: [address] [place] [address] Performed By: #### 2 4344-4 ####[facility] LABIA [id number] [place] [address] [place] Hemoglobin (Bld) [Mass/Vol] 9.0 g/dL Low 13.0-17.0 [facility] Comment on above: Order Comment: Speci men Type: VENOUS BLOOD SPECIMENOrdering Facility: [facility] Address: [address] [place] [address] Performed By: #### 2 4344-4 ####[facility] LABIA [id number] [place] [address] [place] Lactate [Moles/Vol] 1.4 mmol/L Normal 0.5-2.2 [facility] Comment on above: Order Comment: Speci men Type: VENOUS BLOOD SPECIMENOrdering Facility: [facility] Address: [address] [place] [address] Performed By: #### 2 4344-4 ####[facility] LABCLIA [id number] [address] [address] [place] Methemoglobin (Bld) [Mass fraction] 2.2 % High 0.0-1.5 [facility] Comment on above: Order Comment: Speci men Type: VENOUS BLOOD SPECIMENOrdering Facility: [facility] Address: [address] [place], [place] [address] Performed By: #### 2 4344-4 ####[facility] LABCLIA [id number] [address] [address] [place] O2 THERAPY NC = Nasal Cannula Normal [facility] Comment on above: Order Comment: Speci men Type: VENOUS BLOOD SPECIMENOrdering Facility: [facility] Address: [address] [place], [place] [address] Performed By: #### 2 4344-4 ####[facility] LABCLIA [id number] [address] [address] [place] Oxygen (BldV) [Partial pressure] 37 mm[Hg] Normal 35-45 [facility] Comment on above: Order Comment: Speci men Type: VENOUS BLOOD SPECIMENOrdering Facility: [facility] Address: [address] [place], [place] [address] Performed By: #### 2 4344-4 ####[facility] LABCLIA [id number] [address] [address] [place] Oxygen saturation in Venous blood 60 % Normal 60-85 [facility] Comment on above: Order Comment: Speci men Type: VENOUS BLOOD SPECIMENOrdering Facility: [facility] Address: [address] [place] [address] Performed By: #### 2 4344-4 ####[facility] LABCLIA [id number] [address] [address] [place] Oxyhemoglobin (BldV) [Mass fraction] 59 % Low 60-85 [facility] Comment on above: Order Comment: Speci men Type: VENOUS BLOOD SPECIMENOrdering Facility: [facility] Address: [address] [place] [address] Performed By: #### 2 4344-4 ####[facility] LABIA [id number] [place] [address] [place] pH (BldV) 7.36 [pH] Normal 7.32-7.42 [facility] Comment on above: Order Comment: Speci men Type: VENOUS BLOOD SPECIMENOrdering Facility: [facility] Address: [address] [place] [address] Performed By: #### 2 4344-4 ####[facility] LABIA [id number] [place] [address] [place] Potassium [Moles/Vol] 5.7 mmol/L High 3.5-5.0 [facility] Comment on above: Order Comment: Speci men Type: VENOUS BLOOD SPECIMENOrdering Facility: [facility] Address: [address] [place] [address] Performed By: #### 2 4344-4 ####[facility] LABIA [id number] [place] [address] [place] Sodium [Moles/Vol] 130 mmol/L Low 136-144 [facility] Comment on above: Order Comment: Speci men Type: VENOUS BLOOD SPECIMENOrdering Facility: [facility] Address: [address] [place] [address] Performed By: #### 2 4344-4 ####[facility] LABIA [id number] [place] [address] [place] Hematocrit Auto (Bld) [Volum e fraction]on 09-21-2023 Hematocrit (Bld) [Volume fraction] 27.1 % Low 39.0-51.0 [facility] Hemoglobin [Mass/volume] in Bloodon 09-21-2023 Hemoglobin (Bld) [Mass/Vol] 8.7 g/dL Low 13.0-17.0 [facility] Leukocytes [#/volume] correc leticia for nucleated erythrocytes in Blood by Automated counon 09-21-2023 WBC corrected for nucl RBC Auto (Bld) [#/Vol] 20.74 k/uL High 3.70-11.00 [facility] MCH Auto (RBC) [Entitic mass ]on 09-21-2023 MCH (RBC) [Entitic mass] 30.0 pg 26.0-34.0 [facility] MCHC Auto (RBC) [Mass/Vol]on 09-21-2023 MCHC (RBC) [Mass/Vol] 35.5 g/dL 30.5-36.0 [facility] MCV Auto (RBC) [Entitic vol] on 09-21-2023 MCV (RBC) [Entitic vol] 84.6 fL 80.0-100.0 [facility] No Panel Informationon 09-20 29 mmol/L High 22-26 [facility] 1.9 % 0.0-2.0 [facility] 184 mg/dL High 60-105 [facility] 1.4 % 0.0-1.5 [facility] 99 % High 95-98 [facility] 96 % 95-98 [facility] 131 mmol/L Low 136-144 [facility] 5.1 mmol/L High 3.5-5.0 [facility] 4 mmol/L High 0-2 [facility] 119 mm Hg High 85-95 [facility] 49 mm Hg High 36-46 [facility] 7.39 7.35-7.45 [facility] 1.0 mmol/L 0.5-2.2 [facility] 1.18 mmol/L 1.08-1.30 [facility] 1 Liters/min [facility] NC = Nasal Cannula [facility] 37.0 C [facility] 4 mmol/L High 0-2 [facility] 54 mm[Hg] 42-55 [facility] 1.9 % 0.0-2.0 [facility] 35 mm[Hg] 35-45 [facility] 61 % 60-85 [facility] 7.36 7.32-7.42 [facility] 30 mmol/L High 24-28 [facility] 19 U/L 10-54 [facility] 3.3 g/dL Low 3.9-4.9 [facility] 30 U/L 14-40 [facility] 1.2 mg/dL 0.2-1.3 [facility] 24 mmol/L 22-30 [facility] 96 mmol/L Low 98-107 [facility] 1.37 mg/dL High 0.73-1.22 [facility] 26 mg/dL High 9-24 [facility] 59 U/L 38-113 [facility] 8.6 mg/dL 8.5-10.2 [facility] 55 mL/min/1.73m??? Low >=60 [facility] Nucleated RBC Auto (Bld) [#/ Vol]on 09-21-2023 Nucleated RBC (Bld) [#/Vol] 10*3/uL <0.01 [facility] Platelet mean volume Auto (B ld) [Entitic vol]on 09-21-2023 Platelet mean volume (Bld) [Entitic vol] 11.6 fL 9.0-12.7 [facility] Platelets Auto (Bld) [#/Vol] on 09-21-2023 Platelets (Bld) [#/Vol] 117 10*3/uL Low 150-400 [facility] Protein [Mass/volume] in Ser um or Plasmaon 09-21-2023 Protein [Mass/Vol] 5.4 g/dL Low 6.3-8.0 [facility] RBC Auto (Bld) [#/Vol]on RBC (Bld) [#/Vol] 2.93 10*6/uL Low 4.20-6.00 [facility] Serum ionized calcium measur ement using ion specific electrode (mass/volume)on 09-21-2023 Calcium.ionized ISE [Mass/Vol] 1.18 mmol/L 1.08-1.30 [facility] Serum or plasma anion gap de terminationon 09-21-2023 Anion gap [Moles/Vol] 12 mmol/L 8-15 [facility] THERAPY NTon 09-21-2023 THERAPY NT Normal [facility] TYPE + SCREENon 09-21-2023 ABO O Normal [facility] Comment on above: Order Comment: Speci men Type: BLOOD SPECIMENOrdering Facility: [facility] Address: [address] [place] [address] Performed By: #### T SCR ####CC MAIN BLOOD BANKCLIA [id number] [place] [address] [place] HISTORICAL AB SCR STATUS Negative Normal [facility] Comment on above: Order Comment: Speci men Type: BLOOD SPECIMENOrdering Facility: [facility] Address: [address] [place] [address] Performed By: #### T SCR ####CC MAIN BLOOD BANKCLIA [id number] [place] [address] [place] Rh Nom (Bld) Positive Normal [facility] Comment on above: Order Comment: Speci men Type: BLOOD SPECIMENOrdering Facility: [facility] Address: [address] [place] [address] Performed By: #### T SCR ####CC MAIN BLOOD BANKCLIA [id number] [place] [address] [place] TYPE AND SCREEN EXPIRATION 09/24/2023 23:59 Normal [facility] Comment on above: Order Comment: Speci men Type: BLOOD SPECIMENOrdering Facility: [facility] Address: [address] [place] [address] Performed By: #### T SCR ####CC MAIN BLOOD BANKCLIA [id number] [place] [address] [place] XR ABDOMEN 1V SUPINEon 09-20 XR ABDOMEN 1V SUPINE Normal [facility] XR CHEST 1V FRONTAL PORTon 0 09-21-2023 XR CHEST 1V FRONTAL PORT Normal [facility] XR CHEST 1V FRONTAL PORT Normal [facility] ARTERIAL BLOOD GASESon 09-19 Base excess Calc (Bld) [Moles/Vol] 3 mmol/L High 0-2 [facility] Comment on above: Order Comment: Speci men Type: ARTERIAL BLOOD SPECIMENOrdering Facility: [facility] Address: [address] [place] [address] Performed By: #### A LLBG ####[facility] LABCLIA [id number] [place] [address] [place] Body temperature 98.6 [degF] Normal [facility] Comment on above: Order Comment: Speci men Type: ARTERIAL BLOOD SPECIMENOrdering Facility: [facility] Address: [address] [place] [address] Performed By: #### A LLBG ####[facility] LABCLIA [id number] [place] [address] [place] Order Comment: Speci men Type: VENOUS BLOOD SPECIMENOrdering Facility: [facility] Address: [address] [place] [address] Performed By: #### 2 4344-4 ####[facility] LABCLIA [id number] [place] [address] [place] Calcium.ionized (Bld) [Mass/Vol] 1.14 mmol/L Normal 1.08-1.30 [facility] Comment on above: Order Comment: Speci men Type: ARTERIAL BLOOD SPECIMENOrdering Facility: [facility] Address: [address] [place] [address] Performed By: #### A LLBG ####[facility] LABCLIA [id number] [place] [address] [place] Calcium.ionized adjusted to pH 7.4 (BldA) [Moles/Vol] 1.14 mmol/L Normal 1.08-1.30 [facility] Comment on above: Order Comment: Speci men Type: ARTERIAL BLOOD SPECIMENOrdering Facility: [facility] Address: [address] [place] [address] Performed By: #### A LLBG ####[facility] LABCLIA [id number] [place] [address] [place] Carboxyhemoglobin (BldA) [Mass fraction] 1.3 % Normal 0.0-2.0 [facility] Comment on above: Order Comment: Speci men Type: ARTERIAL BLOOD SPECIMENOrdering Facility: [facility] Address: [address] [place] [address] Result Comment: Carb oxyhemoglobin Reference Range for Smokers: 2.0-8.0% Performed By: #### A LLBG ####[facility] LABIA [id number] [place] [address] [place] CO2 (Bld) [Partial pressure] 46 mm Hg Normal 36-46 [facility] Comment on above: Order Comment: Speci men Type: ARTERIAL BLOOD SPECIMENOrdering Facility: [facility] Address: [address] [place] [address] Performed By: #### A LLBG ####[facility] LABIA [id number] [place] [address] [place] Glucose [Mass/Vol] 186 mg/dL High 60-105 [facility] Comment on above: Order Comment: Speci men Type: ARTERIAL BLOOD SPECIMENOrdering Facility: [facility] Address: [address] [place] [address] Performed By: #### A LLBG ####[facility] LABCLIA [id number] [place] [address] [place] HCO3 (Bld) [Moles/Vol] 27 mmol/L High 22-26 [facility] Comment on above: Order Comment: Speci men Type: ARTERIAL BLOOD SPECIMENOrdering Facility: [facility] Address: [address] [place] [address] Performed By: #### A LLBG ####[facility] LABCLIA [id number] [place] [address] [place] Hematocrit (Bld) [Volume fraction] 26.3 % Low 39.0-51.0 [facility] Comment on above: Order Comment: Speci men Type: ARTERIAL BLOOD SPECIMENOrdering Facility: [facility] Address: [address] [place] [address] Performed By: #### A LLBG ####[facility] LABCLIA [id number] [place] [address] [place] Hemoglobin (Bld) [Mass/Vol] 8.5 g/dL Low 13.0-17.0 [facility] Comment on above: Order Comment: Speci men Type: ARTERIAL BLOOD SPECIMENOrdering Facility: [facility] Address: [address] [place] [address] Performed By: #### A LLBG ####[facility] LABCLIA [id number] [place] [address] [place] Lactate [Moles/Vol] 1.5 mmol/L Normal 0.5-2.2 [facility] Comment on above: Order Comment: Speci men Type: ARTERIAL BLOOD SPECIMENOrdering Facility: [facility] Address: [address] [place] [address] Performed By: #### A LLBG ####[facility] LABCLIA [id number] [place] [address] [place] Methemoglobin (Bld) [Mass fraction] 1.1 % Normal 0.0-1.5 [facility] Comment on above: Order Comment: Speci men Type: ARTERIAL BLOOD SPECIMENOrdering Facility: [facility] Address: [address] [place] [address] Performed By: #### A LLBG ####[facility] LABCLIA [id number] [place] [address] [place] O2 THERAPY NC = Nasal Cannula Normal [facility] Comment on above: Order Comment: Speci men Type: ARTERIAL BLOOD SPECIMENOrdering Facility: [facility] Address: [address] [place] [address] Performed By: #### A LLBG ####[facility] LABCLIA [id number] [place] [address] [place] Order Comment: Speci men Type: VENOUS BLOOD SPECIMENOrdering Facility: [facility] Address: [address] [place] [address] Performed By: #### 2 4344-4 ####[facility] LABCLIA [id number] [place] [address] [place] Oxygen (Bld) [Partial pressure] 114 mm Hg High 85-95 [facility] Comment on above: Order Comment: Speci men Type: ARTERIAL BLOOD SPECIMENOrdering Facility: [facility] Address: [address] [place] [address] Performed By: #### A LLBG ####[facility] LABIA [id number] [place] [address] [place] Oxyhemoglobin (BldA) [Mass fraction] 96 % Normal 95-98 [facility] Comment on above: Order Comment: Speci men Type: ARTERIAL BLOOD SPECIMENOrdering Facility: [facility] Address: [address] [place] [address] Performed By: #### A LLBG ####[facility] LABIA [id number] [place] [address] [place] pH (Bld) 7.39 [pH] Normal 7.35-7.45 [facility] Comment on above: Order Comment: Speci men Type: ARTERIAL BLOOD SPECIMENOrdering Facility: [facility] Address: [address] [place] [address] Performed By: #### A LLBG ####[facility] LABCLIA [id number] [place] [id number] [place] Potassium [Moles/Vol] 5.1 mmol/L High 3.5-5.0 [facility] Comment on above: Order Comment: Speci men Type: ARTERIAL BLOOD SPECIMENOrdering Facility: [facility] Address: [address] [place] [address] Performed By: #### A LLBG ####[facility] LABCLIA [id number] [place] [address] [place] Sodium [Moles/Vol] 130 mmol/L Low 136-144 [facility] Comment on above: Order Comment: Speci men Type: ARTERIAL BLOOD SPECIMENOrdering Facility: [facility] Address: [address] [place] [address] Performed By: #### A LLBG ####[facility] LABCLIA [id number] [place] [address] [place] Base excess Calc (Bld) [Moles/Vol] 1 mmol/L Normal 0-2 [facility] Comment on above: Order Comment: Speci men Type: ARTERIAL BLOOD SPECIMENOrdering Facility: [facility] Address: [address] [place] [address] Performed By: #### A LLBG ####[facility] LABCLIA [id number] [place] [address] [place] Body temperature 99.5 [degF] Normal [facility] Comment on above: Order Comment: Speci men Type: ARTERIAL BLOOD SPECIMENOrdering Facility: [facility] Address: [address] [place] [address] Performed By: #### A LLBG ####[facility] LABCLIA [id number] [place] [address] [place] Calcium.ionized (Bld) [Mass/Vol] 1.15 mmol/L Normal 1.08-1.30 [facility] Comment on above: Order Comment: Speci men Type: ARTERIAL BLOOD SPECIMENOrdering Facility: [facility] Address: [address] [place] [address] Performed By: #### A LLBG ####[facility] LABCLIA [id number] [place] [address] [place] Calcium.ionized adjusted to pH 7.4 (BldA) [Moles/Vol] 1.14 mmol/L Normal 1.08-1.30 [facility] Comment on above: Order Comment: Speci men Type: ARTERIAL BLOOD SPECIMENOrdering Facility: [facility] Address: [address] [place] [address] Performed By: #### A LLBG ####[facility] LABCLIA [id number] [place] [address] [place] Carboxyhemoglobin (BldA) [Mass fraction] 0.6 % Normal 0.0-2.0 [facility] Comment on above: Order Comment: Speci men Type: ARTERIAL BLOOD SPECIMENOrdering Facility: [facility] Address: [address] [place] [address] Result Comment: Carb oxyhemoglobin Reference Range for Smokers: 2.0-8.0% Performed By: #### A LLBG ####[facility] LABCLIA [id number] [place] [address] [place] CO2 (Bld) [Partial pressure] 42 mm Hg Normal 36-46 [facility] Comment on above: Order Comment: Speci men Type: ARTERIAL BLOOD SPECIMENOrdering Facility: [facility] Address: [address] [place] [address] Performed By: #### A LLBG ####[facility] LABCLIA [id number] [place] [address] [place] CO2 adjusted to patient's actual temperature (Bld) [Partial pressure] 44 mmHg Normal 36-46 [facility] Comment on above: Order Comment: Speci men Type: ARTERIAL BLOOD SPECIMENOrdering Facility: [facility] Address: [address] [place] [address] Performed By: #### A LLBG ####[facility] LABCLIA [id number] [place] [address] [place] Glucose [Mass/Vol] 196 mg/dL High 60-105 [facility] Comment on above: Order Comment: Speci men Type: ARTERIAL BLOOD SPECIMENOrdering Facility: [facility] Address: [address] [place] [address] Performed By: #### A LLBG ####[facility] LABCLIA [id number] [place] [address] [place] HCO3 (Bld) [Moles/Vol] 25 mmol/L Normal 22-26 [facility] Comment on above: Order Comment: Speci men Type: ARTERIAL BLOOD SPECIMENOrdering Facility: [facility] Address: [address] [place] [address] Performed By: #### A LLBG ####[facility] LABCLIA [id number] [place] [address] [place] Hematocrit (Bld) [Volume fraction] 28.4 % Low 39.0-51.0 [facility] Comment on above: Order Comment: Speci men Type: ARTERIAL BLOOD SPECIMENOrdering Facility: [facility] Address: [address] [place] [address] Performed By: #### A LLBG ####[facility] LABCLIA [id number] [place] [address] [place] Hemoglobin (Bld) [Mass/Vol] 9.2 g/dL Low 13.0-17.0 [facility] Comment on above: Order Comment: Speci men Type: ARTERIAL BLOOD SPECIMENOrdering Facility: [facility] Address: [address] [place] [address] Performed By: #### A LLBG ####[facility] LABCLIA [id number] [place] [address] [place] Lactate [Moles/Vol] 1.2 mmol/L Normal 0.5-2.2 [facility] Comment on above: Order Comment: Speci men Type: ARTERIAL BLOOD SPECIMENOrdering Facility: [facility] Address: [address] [place] [address] Performed By: #### A LLBG ####[facility] LABCLIA [id number] [address] [address] [place] LITERS 1 Liters/min Normal [facility] Comment on above: Order Comment: Speci men Type: ARTERIAL BLOOD SPECIMENOrdering Facility: [facility] Address: [address] [place] [id number] Performed By: #### A LLBG ####[facility] LABCLIA [id number] [address] [address] [place] Methemoglobin (Bld) [Mass fraction] 2.1 % High 0.0-1.5 [facility] Comment on above: Order Comment: Speci men Type: ARTERIAL BLOOD SPECIMENOrdering Facility: [facility] Address: [address] [place], [place] [id number] Performed By: #### A LLBG ####[facility] LABCLIA [id number] [address] [address] [place] O2 THERAPY NC = Nasal Cannula Normal [facility] Comment on above: Order Comment: Speci men Type: ARTERIAL BLOOD SPECIMENOrdering Facility: [facility] Address: [address] [place], [place] [id number] Performed By: #### A LLBG ####[facility] LABCLIA [id number] [address] [address] [place] Oxygen (Bld) [Partial pressure] 131 mm Hg High 85-95 [facility] Comment on above: Order Comment: Speci men Type: ARTERIAL BLOOD SPECIMENOrdering Facility: [facility] Address: [address] [place] [address] Performed By: #### A LLBG ####[facility] LABCLIA [id number] [address] [address] [place] Oxygen adjusted to patient's actual temperature (Bld) [Partial pressure] 134 mmHg High 85-95 [facility] Comment on above: Order Comment: Speci men Type: ARTERIAL BLOOD SPECIMENOrdering Facility: [facility] Address: [address] [place] [address] Performed By: #### A LLBG ####[facility] LABCLIA [id number] [place] [address] [place] Oxyhemoglobin (BldA) [Mass fraction] 95 % Normal 95-98 [facility] Comment on above: Order Comment: Speci men Type: ARTERIAL BLOOD SPECIMENOrdering Facility: [facility] Address: [address] [place] [address] Performed By: #### A LLBG ####[facility] LABIA [id number] [place] [address] [place] pH (Bld) 7.39 [pH] Normal 7.35-7.45 [facility] Comment on above: Order Comment: Speci men Type: ARTERIAL BLOOD SPECIMENOrdering Facility: [facility] Address: [address] [place] [address] Performed By: #### A LLBG ####[facility] LABCLIA [id number] [place] [address] [place] pH adjusted to patient's actual temperature (Bld) 7.39 Normal 7.35-7.45 [facility] Comment on above: Order Comment: Speci men Type: ARTERIAL BLOOD SPECIMENOrdering Facility: [facility] Address: [address] [place] [address] Performed By: #### A LLBG ####[facility] LABCLIA [id number] [place] [address] [place] Potassium [Moles/Vol] 5.7 mmol/L High 3.5-5.0 [facility] Comment on above: Order Comment: Speci men Type: ARTERIAL BLOOD SPECIMENOrdering Facility: [facility] Address: [address] [place] [address] Performed By: #### A LLBG ####[facility] LABCLIA [id number] [place] [address] [place] Sodium [Moles/Vol] 130 mmol/L Low 136-144 [facility] Comment on above: Order Comment: Speci men Type: ARTERIAL BLOOD SPECIMENOrdering Facility: [facility] Address: [address] [place] [address] Performed By: #### A LLBG ####[facility] LABCLIA [id number] [place] [address] [place] Base excess Calc (Bld) [Moles/Vol] 3 mmol/L High 0-2 [facility] Comment on above: Order Comment: Speci men Type: ARTERIAL BLOOD SPECIMENOrdering Facility: [facility] Address: [address] [place] [address] Performed By: #### A LLBG ####[facility] LABIA [id number] [place] [address] [place] Body temperature 98.78 [degF] Normal [facility] Comment on above: Order Comment: Speci men Type: ARTERIAL BLOOD SPECIMENOrdering Facility: [facility] Address: [address] [place] [address] Performed By: #### A LLBG ####[facility] LABIA [id number] [place] [address] [place] Calcium.ionized (Bld) [Mass/Vol] 1.17 mmol/L Normal 1.08-1.30 [facility] Comment on above: Order Comment: Speci men Type: ARTERIAL BLOOD SPECIMENOrdering Facility: [facility] Address: [address] [place] [address] Performed By: #### A LLBG ####[facility] LABIA [id number] [place] [address] [place] Calcium.ionized adjusted to pH 7.4 (BldA) [Moles/Vol] 1.16 mmol/L Normal 1.08-1.30 [facility] Comment on above: Order Comment: Speci men Type: ARTERIAL BLOOD SPECIMENOrdering Facility: [facility] Address: [address] [place] [address] Performed By: #### A LLBG ####[facility] LABCLIA [id number] [place] [address] [place] Carboxyhemoglobin (BldA) [Mass fraction] 0.9 % Normal 0.0-2.0 [facility] Comment on above: Order Comment: Speci men Type: ARTERIAL BLOOD SPECIMENOrdering Facility: [facility] Address: [address] [place] [address] Result Comment: Carb oxyhemoglobin Reference Range for Smokers: 2.0-8.0% Performed By: #### A LLBG ####[facility] LABCLIA [id number] [place] [address] [place] CO2 (Bld) [Partial pressure] 47 mm Hg High 36-46 [facility] Comment on above: Order Comment: Speci men Type: ARTERIAL BLOOD SPECIMENOrdering Facility: [facility] Address: [address] [place] [address] Performed By: #### A LLBG ####[facility] LABCLIA [id number] [place] [address] [place] CO2 adjusted to patient's actual temperature (Bld) [Partial pressure] 47 mmHg High 36-46 [facility] Comment on above: Order Comment: Speci men Type: ARTERIAL BLOOD SPECIMENOrdering Facility: [facility] Address: [address] [place] [address] Performed By: #### A LLBG ####[facility] LABCLIA [id number] [place] [address] [place] Glucose [Mass/Vol] 139 mg/dL High 60-105 [facility] Comment on above: Order Comment: Speci men Type: ARTERIAL BLOOD SPECIMENOrdering Facility: [facility] Address: [address] [place] [address] Performed By: #### A LLBG ####[facility] LABCLIA [id number] [place] [address] [place] HCO3 (Bld) [Moles/Vol] 27 mmol/L High 22-26 [facility] Comment on above: Order Comment: Speci men Type: ARTERIAL BLOOD SPECIMENOrdering Facility: [facility] Address: [address] [place] [address] Performed By: #### A LLBG ####[facility] LABCLIA [id number] [place] [address] [place] Hematocrit (Bld) [Volume fraction] 27.2 % Low 39.0-51.0 [facility] Comment on above: Order Comment: Speci men Type: ARTERIAL BLOOD SPECIMENOrdering Facility: [facility] Address: [address] [place] [address] Performed By: #### A LLBG ####[facility] LABCLIA [id number] [place] [address] [place] Hemoglobin (Bld) [Mass/Vol] 8.8 g/dL Low 13.0-17.0 [facility] Comment on above: Order Comment: Speci men Type: ARTERIAL BLOOD SPECIMENOrdering Facility: [facility] Address: [address] [place] [address] Performed By: #### A LLBG ####[facility] LABCLIA [id number] [place] [address] [place] Lactate [Moles/Vol] 1.1 mmol/L Normal 0.5-2.2 [facility] Comment on above: Order Comment: Speci men Type: ARTERIAL BLOOD SPECIMENOrdering Facility: [facility] Address: [address] [place] [address] Performed By: #### A LLBG ####[facility] LABCLIA [id number] [address] [place] 1 Liters/min Normal [facility] Comment on above: Order Comment: Speci men Type: ARTERIAL BLOOD SPECIMENOrdering Facility: [facility] Address: [address] [place] [id number] Performed By: #### A LLBG ####[facility] LABCLIA [id number] [place] [address] [place] Methemoglobin (Bld) [Mass fraction] 1.1 % Normal 0.0-1.5 [facility] Comment on above: Order Comment: Speci men Type: ARTERIAL BLOOD SPECIMENOrdering Facility: [facility] Address: [address] [place] [address] Performed By: #### A LLBG ####[facility] LABCLIA [id number] [place] [address] [place] O2 THERAPY NC = Nasal Cannula Normal [facility] Comment on above: Order Comment: Speci men Type: ARTERIAL BLOOD SPECIMENOrdering Facility: [facility] Address: [address] [id number] Performed By: #### A LLBG ####[facility] LABCLIA [id number] [place] [address] [place] Oxygen (Bld) [Partial pressure] 146 mm Hg High 85-95 [facility] Comment on above: Order Comment: Speci men Type: ARTERIAL BLOOD SPECIMENOrdering Facility: [facility] Address: [address] [id number] Performed By: #### A LLBG ####[facility] LABCLIA [id number] [place] [address] [place] Oxygen adjusted to patient's actual temperature (Bld) [Partial pressure] 147 mmHg High 85-95 [facility] Comment on above: Order Comment: Speci men Type: ARTERIAL BLOOD SPECIMENOrdering Facility: [facility] Address: [address] [id number] Performed By: #### A LLBG ####[facility] LABCLIA [id number] [place] [address] [place] Oxyhemoglobin (BldA) [Mass fraction] 96 % Normal 95-98 [facility] Comment on above: Order Comment: Speci men Type: ARTERIAL BLOOD SPECIMENOrdering Facility: [facility] Address: [address] [place] [address] Performed By: #### A LLBG ####[facility] LABCLIA [id number] [place] [address] [place] pH (Bld) 7.39 [pH] Normal 7.35-7.45 [facility] Comment on above: Order Comment: Speci men Type: ARTERIAL BLOOD SPECIMENOrdering Facility: [facility] Address: [address] [place] [address] Performed By: #### A LLBG ####[facility] LABCLIA [id number] [place] [address] [place] pH adjusted to patient's actual temperature (Bld) 7.39 Normal 7.35-7.45 [facility] Comment on above: Order Comment: Speci men Type: ARTERIAL BLOOD SPECIMENOrdering Facility: [facility] Address: [address] [place] [address] Performed By: #### A LLBG ####[facility] LABCLIA [id number] [place] [address] [place] Potassium [Moles/Vol] 5.1 mmol/L High 3.5-5.0 [facility] Comment on above: Order Comment: Speci men Type: ARTERIAL BLOOD SPECIMENOrdering Facility: [facility] Address: [address] [place] [address] Performed By: #### A LLBG ####[facility] LABCLIA [id number] [place] [address] [place] Sodium [Moles/Vol] 131 mmol/L Low 136-144 [facility] Comment on above: Order Comment: Speci men Type: ARTERIAL BLOOD SPECIMENOrdering Facility: [facility] Address: [address] [place] [address] Performed By: #### A LLBG ####[facility] LABIA [id number] [place] [address] [place] Base excess Calc (Bld) [Moles/Vol] 2 mmol/L Normal 0-2 [facility] Comment on above: Order Comment: Speci men Type: ARTERIAL BLOOD SPECIMENOrdering Facility: [facility] Address: [address] [place] [address] Performed By: #### A LLBG ####[facility] LABIA [id number] [place] [address] [place] Body temperature 97.7 [degF] Normal [facility] Comment on above: Order Comment: Speci men Type: ARTERIAL BLOOD SPECIMENOrdering Facility: [facility] Address: [address] [place] [address] Performed By: #### A LLBG ####[facility] LABIA [id number] [place] [address] [place] Calcium.ionized (Bld) [Mass/Vol] 1.17 mmol/L Normal 1.08-1.30 [facility] Comment on above: Order Comment: Speci men Type: ARTERIAL BLOOD SPECIMENOrdering Facility: [facility] Address: [address] [place] [address] Performed By: #### A LLBG ####[facility] LABIA [id number] [place] [address] [place] Calcium.ionized adjusted to pH 7.4 (BldA) [Moles/Vol] 1.16 mmol/L Normal 1.08-1.30 [facility] Comment on above: Order Comment: Speci men Type: ARTERIAL BLOOD SPECIMENOrdering Facility: [facility] Address: [address] [place] [address] Performed By: #### A LLBG ####[facility] LABCLIA [id number] [place] [address] [place] Carboxyhemoglobin (BldA) [Mass fraction] 1.1 % Normal 0.0-2.0 [facility] Comment on above: Order Comment: Speci men Type: ARTERIAL BLOOD SPECIMENOrdering Facility: [facility] Address: [address] [place] [address] Result Comment: Carb oxyhemoglobin Reference Range for Smokers: 2.0-8.0% Performed By: #### A LLBG ####[facility] LABCLIA [id number] [place] [address] [place] CO2 (Bld) [Partial pressure] 46 mm Hg Normal 36-46 [facility] Comment on above: Order Comment: Speci men Type: ARTERIAL BLOOD SPECIMENOrdering Facility: [facility] Address: [address] [place] [address] Performed By: #### A LLBG ####[facility] LABCLIA [id number] [place] [address] [place] CO2 adjusted to patient's actual temperature (Bld) [Partial pressure] 45 mmHg Normal 36-46 [facility] Comment on above: Order Comment: Speci men Type: ARTERIAL BLOOD SPECIMENOrdering Facility: [facility] Address: [address] [place] [address] Performed By: #### A LLBG ####[facility] LABCLIA [id number] [place] [address] [place] Glucose [Mass/Vol] 168 mg/dL High 60-105 [facility] Comment on above: Order Comment: Speci men Type: ARTERIAL BLOOD SPECIMENOrdering Facility: [facility] Address: [address] [place] [address] Performed By: #### A LLBG ####[facility] LABCLIA [id number] [address] [id number] [address] [place] HCO3 (Bld) [Moles/Vol] 27 mmol/L High 22-26 [facility] Comment on above: Order Comment: Speci men Type: ARTERIAL BLOOD SPECIMENOrdering Facility: [facility] Address: [address] [place] [address] Performed By: #### A LLBG ####[facility] LABCLIA [id number] [place] [address] [place] Hematocrit (Bld) [Volume fraction] 28.3 % Low 39.0-51.0 [facility] Comment on above: Order Comment: Speci men Type: ARTERIAL BLOOD SPECIMENOrdering Facility: [facility] Address: [address] [place] [address] Performed By: #### A LLBG ####[facility] LABCLIA [id number] [place] [address] [place] Hemoglobin (Bld) [Mass/Vol] 9.1 g/dL Low 13.0-17.0 [facility] Comment on above: Order Comment: Speci men Type: ARTERIAL BLOOD SPECIMENOrdering Facility: [facility] Address: [address] [place] [address] Performed By: #### A LLBG ####[facility] LABCLIA [id number] [place] [address] [place] Lactate [Moles/Vol] 1.3 mmol/L Normal 0.5-2.2 [facility] Comment on above: Order Comment: Speci men Type: ARTERIAL BLOOD SPECIMENOrdering Facility: [facility] Address: [address] [place] [address] Performed By: #### A LLBG ####[facility] LABCLIA [id number] [place] [address] [place] L[place] 1 Liters/min Normal [facility] Comment on above: Order Comment: Speci men Type: ARTERIAL BLOOD SPECIMENOrdering Facility: [facility] Address: [address] [id number] Performed By: #### A LLBG ####[facility] LABCLIA [id number] [place] [address] [place] Methemoglobin (Bld) [Mass fraction] 1.0 % Normal 0.0-1.5 [facility] Comment on above: Order Comment: Speci men Type: ARTERIAL BLOOD SPECIMENOrdering Facility: [facility] Address: [address] [id number] Performed By: #### A LLBG ####[facility] LABCLIA [id number] [place] [address] [place] O2 THERAPY NC = Nasal Cannula Normal [facility] Comment on above: Order Comment: Speci men Type: ARTERIAL BLOOD SPECIMENOrdering Facility: [facility] Address: [address] [place] [address] Performed By: #### A LLBG ####[facility] LABCLIA [id number] [place] [id number] [place] Oxygen (Bld) [Partial pressure] 126 mm Hg High 85-95 [facility] Comment on above: Order Comment: Speci men Type: ARTERIAL BLOOD SPECIMENOrdering Facility: [facility] Address: [address] [place], [place] [id number] Performed By: #### A LLBG ####[facility] LABCLIA [id number] [place] [address] [place] Oxygen adjusted to patient's actual temperature (Bld) [Partial pressure] 123 mmHg High 85-95 [facility] Comment on above: Order Comment: Speci men Type: ARTERIAL BLOOD SPECIMENOrdering Facility: [facility] Address: [address] [id number] Performed By: #### A LLBG ####[facility] LABCLIA [id number] [place] [id number] [place] Oxyhemoglobin (BldA) [Mass fraction] 96 % Normal 95-98 [facility] Comment on above: Order Comment: Speci men Type: ARTERIAL BLOOD SPECIMENOrdering Facility: [facility] Address: [address] [place] [address] Performed By: #### A LLBG ####[facility] LABCLIA [id number] [place] [address] [place] pH (Bld) 7.38 [pH] Normal 7.35-7.45 [facility] Comment on above: Order Comment: Speci men Type: ARTERIAL BLOOD SPECIMENOrdering Facility: [facility] Address: [address] [place] [address] Performed By: #### A LLBG ####[facility] LABCLIA [id number] [place] [address] [place] pH adjusted to patient's actual temperature (Bld) 7.39 Normal 7.35-7.45 [facility] Comment on above: Order Comment: Speci men Type: ARTERIAL BLOOD SPECIMENOrdering Facility: [facility] Address: [address] [place] [address] Performed By: #### A LLBG ####[facility] LABCLIA [id number] [place] [address] [place] Potassium [Moles/Vol] 5.6 mmol/L High 3.5-5.0 [facility] Comment on above: Order Comment: Speci men Type: ARTERIAL BLOOD SPECIMENOrdering Facility: [facility] Address: [address] [place] [address] Performed By: #### A LLBG ####[facility] LABCLIA [id number] [place] [address] [place] Sodium [Moles/Vol] 131 mmol/L Low 136-144 [facility] Comment on above: Order Comment: Speci men Type: ARTERIAL BLOOD SPECIMENOrdering Facility: [facility] Address: [address] [place] [address] Performed By: #### A LLBG ####[facility] LABCLIA [id number] [place] [address] [place] Base excess Calc (Bld) [Moles/Vol] 3 mmol/L High 0-2 [facility] Comment on above: Order Comment: Speci men Type: ARTERIAL BLOOD SPECIMENOrdering Facility: [facility] Address: [address] [place] [address] Performed By: #### A LLBG ####[facility] LABIA [id number] [place] [address] [place] Body temperature 97.16 [degF] Normal [facility] Comment on above: Order Comment: Speci men Type: ARTERIAL BLOOD SPECIMENOrdering Facility: [facility] Address: [address] [place] [address] Performed By: #### A LLBG ####[facility] LABIA [id number] [place] [address] [place] Calcium.ionized (Bld) [Mass/Vol] 1.18 mmol/L Normal 1.08-1.30 [facility] Comment on above: Order Comment: Speci men Type: ARTERIAL BLOOD SPECIMENOrdering Facility: [facility] Address: [address] [place] [address] Performed By: #### A LLBG ####[facility] [id number] [place] [address] [place] Calcium.ionized adjusted to pH 7.4 (BldA) [Moles/Vol] 1.16 mmol/L Normal 1.08-1.30 [facility] Comment on above: Order Comment: Speci men Type: ARTERIAL BLOOD SPECIMENOrdering Facility: [facility] Address: [address] [place] [address] Performed By: #### A LLBG ####[facility] LABIA [id number] [place] [address] [place] Carboxyhemoglobin (BldA) [Mass fraction] 1.3 % Normal 0.0-2.0 [facility] Comment on above: Order Comment: Speci men Type: ARTERIAL BLOOD SPECIMENOrdering Facility: [facility] Address: [address] [place] [address] Result Comment: Carb oxyhemoglobin Reference Range for Smokers: 2.0-8.0% Performed By: #### A LLBG ####[facility] LABCLIA [id number] [place] [address] [place] CO2 (Bld) [Partial pressure] 51 mm Hg High 36-46 [facility] Comment on above: Order Comment: Speci men Type: ARTERIAL BLOOD SPECIMENOrdering Facility: [facility] Address: [address] [place] [address] Performed By: #### A LLBG ####[facility] LABCLIA [id number] [place] [address] [place] CO2 adjusted to patient's actual temperature (Bld) [Partial pressure] 50 mmHg High 36-46 [facility] Comment on above: Order Comment: Speci men Type: ARTERIAL BLOOD SPECIMENOrdering Facility: [facility] Address: [address] [place] [address] Performed By: #### A LLBG ####[facility] LABCLIA [id number] [place] [address] [place] Glucose [Mass/Vol] 115 mg/dL High 60-105 [facility] Comment on above: Order Comment: Speci men Type: ARTERIAL BLOOD SPECIMENOrdering Facility: [facility] Address: [address] [place] [address] Performed By: #### A LLBG ####[facility] LABCLIA [id number] [place] [address] [place] HCO3 (Bld) [Moles/Vol] 28 mmol/L High 22-26 [facility] Comment on above: Order Comment: Speci men Type: ARTERIAL BLOOD SPECIMENOrdering Facility: [facility] Address: [address] [place] [address] Performed By: #### A LLBG ####[facility] LABCLIA [id number] [place] [address] [place] Hematocrit (Bld) [Volume fraction] 28.4 % Low 39.0-51.0 [facility] Comment on above: Order Comment: Speci men Type: ARTERIAL BLOOD SPECIMENOrdering Facility: [facility] Address: [address] [place] [address] Performed By: #### A LLBG ####[facility] LABCLIA [id number] [place] [address] [place] Hemoglobin (Bld) [Mass/Vol] 9.2 g/dL Low 13.0-17.0 [facility] Comment on above: Order Comment: Speci men Type: ARTERIAL BLOOD SPECIMENOrdering Facility: [facility] Address: [address] [place] [address] Performed By: #### A LLBG ####[facility] LABCLIA [id number] [place] [address] [place] Lactate [Moles/Vol] 1.3 mmol/L Normal 0.5-2.2 [facility] Comment on above: Order Comment: Speci men Type: ARTERIAL BLOOD SPECIMENOrdering Facility: [facility] Address: [address] [place] [address] Performed By: #### A LLBG ####[facility] LABCLIA [id number] [place] [address] [place] Methemoglobin (Bld) [Mass fraction] 1.1 % Normal 0.0-1.5 [facility] Comment on above: Order Comment: Speci men Type: ARTERIAL BLOOD SPECIMENOrdering Facility: [facility] Address: [address] [place] [address] Performed By: #### A LLBG ####[facility] LABCLIA [id number] [place] [id number] [place] O2 THERAPY NC = Nasal Cannula Normal [facility] Comment on above: Order Comment: Speci men Type: ARTERIAL BLOOD SPECIMENOrdering Facility: [facility] Address: [address] [id number] Performed By: #### A LLBG ####[facility] LABCLIA [id number] [place] [id number] [place] Oxygen (Bld) [Partial pressure] 145 mm Hg High 85-95 [facility] Comment on above: Order Comment: Speci men Type: ARTERIAL BLOOD SPECIMENOrdering Facility: [facility] Address: [address] [place] [address] Performed By: #### A LLBG ####[facility] LABCLIA [id number] [place] [address] [place] Oxygen adjusted to patient's actual temperature (Bld) [Partial pressure] 141 mmHg High 85-95 [facility] Comment on above: Order Comment: Speci men Type: ARTERIAL BLOOD SPECIMENOrdering Facility: [facility] Address: [address] [place], [place] [id number] Performed By: #### A LLBG ####[facility] LABCLIA [id number] [place] [id number] [place] Oxyhemoglobin (BldA) [Mass fraction] 96 % Normal 95-98 [facility] Comment on above: Order Comment: Speci men Type: ARTERIAL BLOOD SPECIMENOrdering Facility: [facility] Address: [address] [place] [address] Performed By: #### A LLBG ####[facility] LABCLIA [id number] [place] [id number] [place] pH (Bld) 7.36 [pH] Normal 7.35-7.45 [facility] Comment on above: Order Comment: Speci men Type: ARTERIAL BLOOD SPECIMENOrdering Facility: [facility] Address: [address] [place] [address] Performed By: #### A LLBG ####[facility] LABCLIA [id number] [place] [address] [place] pH adjusted to patient's actual temperature (Bld) 7.37 Normal 7.35-7.45 [facility] Comment on above: Order Comment: Speci men Type: ARTERIAL BLOOD SPECIMENOrdering Facility: [facility] Address: [address] [place] [address] Performed By: #### A LLBG ####[facility] LABCLIA [id number] [place] [address] [place] Potassium [Moles/Vol] 4.9 mmol/L Normal 3.5-5.0 [facility] Comment on above: Order Comment: Speci men Type: ARTERIAL BLOOD SPECIMENOrdering Facility: [facility] Address: [address] [place] [address] Performed By: #### A LLBG ####[facility] LABCLIA [id number] [place] [address] [place] Sodium [Moles/Vol] 133 mmol/L Low 136-144 [facility] Comment on above: Order Comment: Speci men Type: ARTERIAL BLOOD SPECIMENOrdering Facility: [facility] Address: [address] [place] [address] Performed By: #### A LLBG ####[facility] LABCLIA [id number] [place] [address] [place] Base excess Calc (Bld) [Moles/Vol] 2 mmol/L Normal 0-2 [facility] Comment on above: Order Comment: Speci men Type: ARTERIAL BLOOD SPECIMENOrdering Facility: [facility] Address: [address] [place] [address] Performed By: #### A LLBG ####[facility] LABCLIA [id number] [place] [address] [place] Body temperature 97.34 [degF] Normal [facility] Comment on above: Order Comment: Speci men Type: ARTERIAL BLOOD SPECIMENOrdering Facility: [facility] Address: [address] [place] [address] Performed By: #### A LLBG ####[facility] LABCLIA [id number] [place] [address] [place] Calcium.ionized (Bld) [Mass/Vol] 1.20 mmol/L Normal 1.08-1.30 [facility] Comment on above: Order Comment: Speci men Type: ARTERIAL BLOOD SPECIMENOrdering Facility: [facility] Address: [address] [place] [address] Performed By: #### A LLBG ####[facility] LABCLIA [id number] [place] [address] [place] Calcium.ionized adjusted to pH 7.4 (BldA) [Moles/Vol] 1.18 mmol/L Normal 1.08-1.30 [facility] Comment on above: Order Comment: Speci men Type: ARTERIAL BLOOD SPECIMENOrdering Facility: [facility] Address: [address] [place] [address] Performed By: #### A LLBG ####[facility] LABCLIA [id number] [place] [address] [place] Carboxyhemoglobin (BldA) [Mass fraction] 1.0 % Normal 0.0-2.0 [facility] Comment on above: Order Comment: Speci men Type: ARTERIAL BLOOD SPECIMENOrdering Facility: [facility] [facility] Address: [address] [place] [address] Result Comment: Carb oxyhemoglobin Reference Range for Smokers: 2.0-8.0% Performed By: #### A LLBG ####[facility] LABCLIA [id number] [place] [address] [place] CO2 (Bld) [Partial pressure] 49 mm Hg High 36-46 [facility] Comment on above: Order Comment: Speci men Type: ARTERIAL BLOOD SPECIMENOrdering Facility: [facility] Address: [address] [place] [address] Performed By: #### A LLBG ####[facility] LABCLIA [id number] [place] [address] [place] CO2 adjusted to patient's actual temperature (Bld) [Partial pressure] 48 mmHg High 36-46 [facility] Comment on above: Order Comment: Speci men Type: ARTERIAL BLOOD SPECIMENOrdering Facility: [facility] Address: [address] [place] [address] Performed By: #### A LLBG ####[facility] LABCLIA [id number] [place] [address] [place] Glucose [Mass/Vol] 139 mg/dL High 60-105 [facility] Comment on above: Order Comment: Speci men Type: ARTERIAL BLOOD SPECIMENOrdering Facility: [facility] Address: [address] [place] [address] Performed By: #### A LLBG ####[facility] LABCLIA [id number] [place] [address] [place] HCO3 (Bld) [Moles/Vol] 28 mmol/L High 22-26 [facility] Comment on above: Order Comment: Speci men Type: ARTERIAL BLOOD SPECIMENOrdering Facility: [facility] Address: [address] [place] [address] Performed By: #### A LLBG ####[facility] LABCLIA [id number] [place] [address] [place] Hematocrit (Bld) [Volume fraction] 27.8 % Low 39.0-51.0 [facility] Comment on above: Order Comment: Speci men Type: ARTERIAL BLOOD SPECIMENOrdering Facility: [facility] Address: [address] [place] [address] Performed By: #### A LLBG ####[facility] LABCLIA [id number] [place] [address] [place] Hemoglobin (Bld) [Mass/Vol] 9.0 g/dL Low 13.0-17.0 [facility] Comment on above: Order Comment: Speci men Type: ARTERIAL BLOOD SPECIMENOrdering Facility: [facility] Address: [address] [place] [address] Performed By: #### A LLBG ####[facility] LABCLIA [id number] [place] [address] [place] Lactate [Moles/Vol] 1.5 mmol/L Normal 0.5-2.2 [facility] Comment on above: Order Comment: Speci men Type: ARTERIAL BLOOD SPECIMENOrdering Facility: [facility] Address: [address] [place] [address] Performed By: #### A LLBG ####[facility] LABIA [id number] [place] [address] [place] 1 Liters/min Normal [facility] Comment on above: Order Comment: Speci men Type: ARTERIAL BLOOD SPECIMENOrdering Facility: [facility] Address: [address] [place] [address] Performed By: #### A LLBG ####[facility] LABIA [id number] [place] [address] [place] Methemoglobin (Bld) [Mass fraction] 1.0 % Normal 0.0-1.5 [facility] Comment on above: Order Comment: Speci men Type: ARTERIAL BLOOD SPECIMENOrdering Facility: [facility] Address: [address] [place] [address] Performed By: #### A LLBG ####[facility] LABIA [id number] [place] [address] [place] O2 THERAPY NC = Nasal Cannula Normal [facility] Comment on above: Order Comment: Speci men Type: ARTERIAL BLOOD SPECIMENOrdering Facility: [facility] Address: [address] [place] [address] Performed By: #### A LLBG ####[facility] LABCLIA [id number] [place] [address] [place] Oxygen (Bld) [Partial pressure] 105 mm Hg High 85-95 [facility] Comment on above: Order Comment: Speci men Type: ARTERIAL BLOOD SPECIMENOrdering Facility: [facility] Address: [address] [place] [address] Performed By: #### A LLBG ####[facility] LABCLIA [id number] [place] [address] [place] Oxygen adjusted to patient's actual temperature (Bld) [Partial pressure] 101 mmHg High 85-95 [facility] Comment on above: Order Comment: Speci men Type: ARTERIAL BLOOD SPECIMENOrdering Facility: [facility] Address: [address] [place] [address] Performed By: #### A LLBG ####[facility] LABCLIA [id number] [place] [address] [place] Oxyhemoglobin (BldA) [Mass fraction] 95 % Normal 95-98 [facility] Comment on above: Order Comment: Speci men Type: ARTERIAL BLOOD SPECIMENOrdering Facility: [facility] Address: [address] [place] [address] Performed By: #### A LLBG ####[facility] LABCLIA [id number] [place] [address] [place] pH (Bld) 7.37 [pH] Normal 7.35-7.45 [facility] Comment on above: Order Comment: Speci men Type: ARTERIAL BLOOD SPECIMENOrdering Facility: [facility] Address: [address] [place] [address] Performed By: #### A LLBG ####[facility] LABCLIA [id number] [id number] [address] [place] pH adjusted to patient's actual temperature (Bld) 7.38 Normal 7.35-7.45 [facility] Comment on above: Order Comment: Speci men Type: ARTERIAL BLOOD SPECIMENOrdering Facility: [facility] Address: [address] [place] [address] Performed By: #### A LLBG ####[facility] LABCLIA [id number] [place] [address] [place] Potassium [Moles/Vol] 4.6 mmol/L Normal 3.5-5.0 [facility] Comment on above: Order Comment: Speci men Type: ARTERIAL BLOOD SPECIMENOrdering Facility: [facility] Address: [address] [place] [address] Performed By: #### A LLBG ####[facility] LABCLIA [id number] [place] [address] [place] Sodium [Moles/Vol] 133 mmol/L Low 136-144 [facility] Comment on above: Order Comment: Speci men Type: ARTERIAL BLOOD SPECIMENOrdering Facility: [facility] Address: [address] [place] [address] Performed By: #### A LLBG ####[facility] LABCLIA [id number] [place] [address] [place] Base excess Calc (Bld) [Moles/Vol] 2 mmol/L Normal 0-2 [facility] Comment on above: Order Comment: Speci men Type: ARTERIAL BLOOD SPECIMENOrdering Facility: [facility] Address: [address] [place] [address] Performed By: #### A LLBG ####[facility] LABCLIA [id number] [place] [address] [place] Body temperature 97.52 [degF] Normal [facility] Comment on above: Order Comment: Speci men Type: ARTERIAL BLOOD SPECIMENOrdering Facility: [facility] Address: [address] [place] [address] Performed By: #### A LLBG ####[facility] LABIA [id number] [place] [address] [place] Calcium.ionized (Bld) [Mass/Vol] 1.19 mmol/L Normal 1.08-1.30 [facility] Comment on above: Order Comment: Speci men Type: ARTERIAL BLOOD SPECIMENOrdering Facility: [facility] Address: [address] [place] [address] Performed By: #### A LLBG ####[facility] [id number] [place] [address] [place] Calcium.ionized adjusted to pH 7.4 (BldA) [Moles/Vol] 1.17 mmol/L Normal 1.08-1.30 [facility] Comment on above: Order Comment: Speci men Type: ARTERIAL BLOOD SPECIMENOrdering Facility: [facility] Address: [address] [place] [address] Performed By: #### A LLBG ####[facility]PRO[facility] [id number] [place] [address] [place] Carboxyhemoglobin (BldA) [Mass fraction] 1.0 % Normal 0.0-2.0 [facility] Comment on above: Order Comment: Speci men Type: ARTERIAL BLOOD SPECIMENOrdering Facility: [facility] Address: [address] [place] [address] Result Comment: Carb oxyhemoglobin Reference Range for Smokers: 2.0-8.0% Performed By: #### A LLBG ####[facility]PRO[facility] [id number] [place] [address] [place] CO2 (Bld) [Partial pressure] 48 mm Hg High 36-46 [facility] Comment on above: Order Comment: Speci men Type: ARTERIAL BLOOD SPECIMENOrdering Facility: [facility] Address: [address] [place] [address] Performed By: #### A LLBG ####[facility] LABCLIA [id number] [place] [address] [place] CO2 adjusted to patient's actual temperature (Bld) [Partial pressure] 47 mmHg High 36-46 [facility] Comment on above: Order Comment: Speci men Type: ARTERIAL BLOOD SPECIMENOrdering Facility: [facility] Address: [address] [place] [address] Performed By: #### A LLBG ####[facility] LABCLIA [id number] [place] [address] [place] Glucose [Mass/Vol] 149 mg/dL High 60-105 [facility] Comment on above: Order Comment: Speci men Type: ARTERIAL BLOOD SPECIMENOrdering Facility: [facility] Address: [address] [place] [address] Performed By: #### A LLBG ####[facility] LABCLIA [id number] [place] [address] [place] HCO3 (Bld) [Moles/Vol] 27 mmol/L High 22-26 [facility] Comment on above: Order Comment: Speci men Type: ARTERIAL BLOOD SPECIMENOrdering Facility: [facility] Address: [address] [place] [address] Performed By: #### A LLBG ####[facility] LABCLIA [id number] [place] [address] [place] Hematocrit (Bld) [Volume fraction] 27.2 % Low 39.0-51.0 [facility] Comment on above: Order Comment: Speci men Type: ARTERIAL BLOOD SPECIMENOrdering Facility: [facility] Address: [address] [place] [address] Performed By: #### A LLBG ####[facility] LABCLIA [id number] [place] [address] [place] Hemoglobin (Bld) [Mass/Vol] 8.8 g/dL Low 13.0-17.0 [facility] Comment on above: Order Comment: Speci men Type: ARTERIAL BLOOD SPECIMENOrdering Facility: [facility] Address: [address] [place] [place] [id number] Performed By: #### A LLBG ####[facility] LABCLIA [id number] [address] [address] [place] Lactate [Moles/Vol] 1.7 mmol/L Normal 0.5-2.2 [facility] Comment on above: Order Comment: Speci men Type: ARTERIAL BLOOD SPECIMENOrdering Facility: [facility] Address: [address] [place] [address] Performed By: #### A LLBG ####[facility] LABIA [id number] [place] [address] [place] Methemoglobin (Bld) [Mass fraction] 1.1 % Normal 0.0-1.5 [facility] Comment on above: Order Comment: Speci men Type: ARTERIAL BLOOD SPECIMENOrdering Facility: [facility] Address: [address] [place] [address] Performed By: #### A LLBG ####[facility] LABIA [id number] [place] [address] [place] O2 THERAPY NC = Nasal Cannula Normal [facility] Comment on above: Order Comment: Speci men Type: ARTERIAL BLOOD SPECIMENOrdering Facility: [facility] Address: [address] [place] [address] Performed By: #### A LLBG ####[facility] LABCLIA [id number] [place] [address] [place] Oxygen (Bld) [Partial pressure] 134 mm Hg High 85-95 [facility] Comment on above: Order Comment: Speci men Type: ARTERIAL BLOOD SPECIMENOrdering Facility: [facility] Address: [address] [place] [id number] Performed By: #### A LLBG ####[facility] LABCLIA [id number] [place] [address] [place] Oxygen adjusted to patient's actual temperature (Bld) [Partial pressure] 131 mmHg High 85-95 [facility] Comment on above: Order Comment: Speci men Type: ARTERIAL BLOOD SPECIMENOrdering Facility: [facility] Address: [address] [place] [address] Performed By: #### A LLBG ####[facility] LABCLIA [id number] [place] [address] [place] Oxyhemoglobin (BldA) [Mass fraction] 96 % Normal 95-98 [facility] Comment on above: Order Comment: Speci men Type: ARTERIAL BLOOD SPECIMENOrdering Facility: [facility] Address: [address] [place] [address] Performed By: #### A LLBG ####[facility] LABIA [id number] [place] [address] [place] pH (Bld) 7.37 [pH] Normal 7.35-7.45 [facility] Comment on above: Order Comment: Speci men Type: ARTERIAL BLOOD SPECIMENOrdering Facility: [facility] Address: [address] [place] [address] Performed By: #### A LLBG ####[facility] LABCLIA [id number] [place] [address] [place] pH adjusted to patient's actual temperature (Bld) 7.38 Normal 7.35-7.45 [facility] Comment on above: Order Comment: Speci men Type: ARTERIAL BLOOD SPECIMENOrdering Facility: [facility] Address: [address] [place] [address] Performed By: #### A LLBG ####[facility] LABCLIA [id number] [place] [address] [place] Potassium [Moles/Vol] 4.4 mmol/L Normal 3.5-5.0 [facility] Comment on above: Order Comment: Speci men Type: ARTERIAL BLOOD SPECIMENOrdering Facility: [facility] Address: [address] [place] [address] Performed By: #### A LLBG ####[facility] LABCLIA [id number] [place] [address] [place] Sodium [Moles/Vol] 132 mmol/L Low 136-144 [facility] Comment on above: Order Comment: Speci men Type: ARTERIAL BLOOD SPECIMENOrdering Facility: [facility] Address: [address] [place] [address] Performed By: #### A LLBG ####[facility] LABCLIA [id number] [place] [address] [place] Base excess Calc (Bld) [Moles/Vol] 2 mmol/L Normal 0-2 [facility] Comment on above: Order Comment: Speci men Type: ARTERIAL BLOOD SPECIMENOrdering Facility: [facility] Address: [address] [place] [address] Performed By: #### A LLBG ####[facility] LABCLIA [id number] [place] [address] [place] Body temperature 98.6 [degF] Normal [facility] Comment on above: Order Comment: Speci men Type: ARTERIAL BLOOD SPECIMENOrdering Facility: [facility] Address: [address] [place] [address] Performed By: #### A LLBG ####[facility] LABCLIA [id number] [place] [address] [place] Order Comment: Speci men Type: VENOUS BLOOD SPECIMENOrdering Facility: [facility] Address: [address] [place] [address] Performed By: #### 2 4344-4 ####[facility] LABCLIA [id number] [place] [address] [place] Calcium.ionized (Bld) [Mass/Vol] 1.17 mmol/L Normal 1.08-1.30 [facility] Comment on above: Order Comment: Speci men Type: ARTERIAL BLOOD SPECIMENOrdering Facility: [facility] Address: [address] [place] [address] Performed By: #### A LLBG ####[facility] LABCLIA [id number] [place] [address] [place] Calcium.ionized adjusted to pH 7.4 (BldA) [Moles/Vol] 1.15 mmol/L Normal 1.08-1.30 [facility] Comment on above: Order Comment: Speci men Type: ARTERIAL BLOOD SPECIMENOrdering Facility: [facility] Address: [address] [place] [address] Performed By: #### A LLBG ####[facility] LABCLIA [id number] [place] [address] [place] Carboxyhemoglobin (BldA) [Mass fraction] 0.8 % Normal 0.0-2.0 [facility] Comment on above: Order Comment: Speci men Type: ARTERIAL BLOOD SPECIMENOrdering Facility: [facility] Address: [address] [place] [address] Result Comment: Carb oxyhemoglobin Reference Range for Smokers: 2.0-8.0% Performed By: #### A LLBG ####[facility] LABCLIA [id number] [place] [address] [place] CO2 (Bld) [Partial pressure] 47 mm Hg High 36-46 [facility] Comment on above: Order Comment: Speci men Type: ARTERIAL BLOOD SPECIMENOrdering Facility: [facility] Address: [address] [place] [address] Performed By: #### A LLBG ####[facility] LABCLIA [id number] [place] [address] [place] Glucose [Mass/Vol] 152 mg/dL High 60-105 [facility] Comment on above: Order Comment: Speci men Type: ARTERIAL BLOOD SPECIMENOrdering Facility: [facility] Address: [address] [place] [address] Performed By: #### A LLBG ####[facility] LABCLIA [id number] [place] [address] [place] HCO3 (Bld) [Moles/Vol] 27 mmol/L High 22-26 [facility] Comment on above: Order Comment: Speci men Type: ARTERIAL BLOOD SPECIMENOrdering Facility: [facility] Address: [address] [place] [address] Performed By: #### A LLBG ####[facility] LABCLIA [id number] [place] [address] [place] Hematocrit (Bld) [Volume fraction] 29.2 % Low 39.0-51.0 [facility] Comment on above: Order Comment: Speci men Type: ARTERIAL BLOOD SPECIMENOrdering Facility: [facility] Address: [address] [place] [address] Performed By: #### A LLBG ####[facility] LABCLIA [id number] [place] [address] [place] Hemoglobin (Bld) [Mass/Vol] 9.4 g/dL Low 13.0-17.0 [facility] Comment on above: Order Comment: Speci men Type: ARTERIAL BLOOD SPECIMENOrdering Facility: [facility] Address: [address] [place] [address] Performed By: #### A LLBG ####[facility] LABCLIA [id number] [place] [address] [place] Lactate [Moles/Vol] 2.1 mmol/L Normal 0.5-2.2 [facility] Comment on above: Order Comment: Speci men Type: ARTERIAL BLOOD SPECIMENOrdering Facility: [facility] Address: [address] [place] [address] Performed By: #### A LLBG ####[facility] LABCLIA [id number] [address] [address] [place] Methemoglobin (Bld) [Mass fraction] 1.5 % Normal 0.0-1.5 [facility] Comment on above: Order Comment: Speci men Type: ARTERIAL BLOOD SPECIMENOrdering Facility: [facility] Address: [address] [place] [address] Performed By: #### A LLBG ####[facility] LABCLIA [id number] [address] [address] [place] O2 THERAPY NC = Nasal Cannula Normal [facility] Comment on above: Order Comment: Speci men Type: ARTERIAL BLOOD SPECIMENOrdering Facility: [facility] Address: [address] [place] [id number] Performed By: #### A LLBG ####[facility] LABIA [id number] [place] [id number] [place] Order Comment: Speci men Type: VENOUS BLOOD SPECIMENOrdering Facility: [facility] Address: [address] [place] [address] Performed By: #### 2 4344-4 ####[facility] LABCLIA [id number] [address] [address] [place] Oxygen (Bld) [Partial pressure] 165 mm Hg High 85-95 [facility] Comment on above: Order Comment: Speci men Type: ARTERIAL BLOOD SPECIMENOrdering Facility: [facility] Address: [address] [place] [address] Performed By: #### A LLBG ####[facility] LABCLIA [id number] [place] [id number] [place] Oxyhemoglobin (BldA) [Mass fraction] 96 % Normal 95-98 [facility] Comment on above: Order Comment: Speci men Type: ARTERIAL BLOOD SPECIMENOrdering Facility: [facility] Address: [address] [place] [address] Performed By: #### A LLBG ####[facility] LABCLIA [id number] [place] [address] [place] pH (Bld) 7.37 [pH] Normal 7.35-7.45 [facility] Comment on above: Order Comment: Speci men Type: ARTERIAL BLOOD SPECIMENOrdering Facility: [facility] Address: [address] [place] [address] Performed By: #### A LLBG ####[facility] LABCLIA [id number] [place] [address] [place] Potassium [Moles/Vol] 4.3 mmol/L Normal 3.5-5.0 [facility] Comment on above: Order Comment: Speci men Type: ARTERIAL BLOOD SPECIMENOrdering Facility: [facility] Address: [address] [place] [address] Performed By: #### A LLBG ####[facility] LABIA [id number] [place] [address] [place] Sodium [Moles/Vol] 132 mmol/L Low 136-144 [facility] Comment on above: Order Comment: Speci men Type: ARTERIAL BLOOD SPECIMENOrdering Facility: [facility] Address: [address] [place] [address] Performed By: #### A LLBG ####[facility] LABIA [id number] [place] [address] [place] Base excess Calc (Bld) [Moles/Vol] 0 mmol/L Normal 0-2 [facility] Comment on above: Order Comment: Speci men Type: ARTERIAL BLOOD SPECIMENOrdering Facility: [facility] Address: [address] [place] [address] Performed By: #### A LLBG ####[facility] LABCLIA [id number] [place] [address] [place] Body temperature 98.6 [degF] Normal [facility] Comment on above: Order Comment: Speci men Type: ARTERIAL BLOOD SPECIMENOrdering Facility: [facility] Address: [address] [place] [address] Performed By: #### A LLBG ####[facility] LABIA [id number] [place] [address] [place] Calcium.ionized (Bld) [Mass/Vol] 1.19 mmol/L Normal 1.08-1.30 [facility] Comment on above: Order Comment: Speci men Type: ARTERIAL BLOOD SPECIMENOrdering Facility: [facility] Address: [address] [place] [address] Performed By: #### A LLBG ####[facility] LABIA [id number] [place] [address] [place] Calcium.ionized adjusted to pH 7.4 (BldA) [Moles/Vol] 1.16 mmol/L Normal 1.08-1.30 [facility] Comment on above: Order Comment: Speci men Type: ARTERIAL BLOOD SPECIMENOrdering Facility: [facility] Address: [address] [place] [address] Performed By: #### A LLBG ####[facility] LABIA [id number] [place] [address] [place] Carboxyhemoglobin (BldA) [Mass fraction] 1.7 % Normal 0.0-2.0 [facility] Comment on above: Order Comment: Speci men Type: ARTERIAL BLOOD SPECIMENOrdering Facility: [facility] Address: [address] [place] [address] Result Comment: Carb oxyhemoglobin Reference Range for Smokers: 2.0-8.0% Performed By: #### A LLBG ####[facility] LABIA [id number] [place] [address] [place] CO2 (Bld) [Partial pressure] 48 mm Hg High 36-46 [facility] Comment on above: Order Comment: Speci men Type: ARTERIAL BLOOD SPECIMENOrdering Facility: [facility] Address: [address] [place] [address] Performed By: #### A LLBG ####[facility] LABCLIA [id number] [place] [address] [place] Glucose [Mass/Vol] 164 mg/dL High 60-105 [facility] Comment on above: Order Comment: Speci men Type: ARTERIAL BLOOD SPECIMENOrdering Facility: [facility] Address: [address] [place] [address] Performed By: #### A LLBG ####[facility] LABCLIA [id number] [place] [address] [place] HCO3 (Bld) [Moles/Vol] 26 mmol/L Normal 22-26 [facility] Comment on above: Order Comment: Speci men Type: ARTERIAL BLOOD SPECIMENOrdering Facility: [facility] Address: [address] [place] [address] Performed By: #### A LLBG ####[facility] LABCLIA [id number] [place] [address] [place] Hematocrit (Bld) [Volume fraction] 30.1 % Low 39.0-51.0 [facility] Comment on above: Order Comment: Speci men Type: ARTERIAL BLOOD SPECIMENOrdering Facility: [facility] Address: [address] [place] [address] Performed By: #### A LLBG ####[facility] LABCLIA [id number] [place] [address] [place] Hemoglobin (Bld) [Mass/Vol] 9.7 g/dL Low 13.0-17.0 [facility] Comment on above: Order Comment: Speci men Type: ARTERIAL BLOOD SPECIMENOrdering Facility: [facility] Address: [address] [place] [address] Performed By: #### A LLBG ####[facility] LABCLIA [id number] [place] [address] [place] Lactate [Moles/Vol] 2.8 mmol/L High 0.5-2.2 [facility] Comment on above: Order Comment: Speci men Type: ARTERIAL BLOOD SPECIMENOrdering Facility: [facility] Address: [address] [place] [address] Performed By: #### A LLBG ####[facility] LABCLIA [id number] [place] [address] [place] Methemoglobin (Bld) [Mass fraction] 2.2 % High 0.0-1.5 [facility] Comment on above: Order Comment: Speci men Type: ARTERIAL BLOOD SPECIMENOrdering Facility: [facility] Address: [address] [place] [address] Performed By: #### A LLBG ####[facility] LABCLIA [id number] [place] [address] [place] O2 THERAPY Ventilator Normal [facility] Comment on above: Order Comment: Speci men Type: ARTERIAL BLOOD SPECIMENOrdering Facility: [facility] Address: [address] [place] [address] Performed By: #### A LLBG ####[facility] LABCLIA [id number] [place] [address] [place] Oxygen (Bld) [Partial pressure] 142 mm Hg High 85-95 [facility] Comment on above: Order Comment: Speci men Type: ARTERIAL BLOOD SPECIMENOrdering Facility: [facility] Address: [address] [place] [id number] Performed By: #### A LLBG ####[facility] LABCLIA [id number] [place] [address] [place] Oxyhemoglobin (BldA) [Mass fraction] 95 % Normal 95-98 [facility] Comment on above: Order Comment: Speci men Type: ARTERIAL BLOOD SPECIMENOrdering Facility: [facility] Address: [address] [place], [place] [id number] Performed By: #### A LLBG ####[facility] LABCLIA [id number] [place] [address] [place] pH (Bld) 7.35 [pH] Normal 7.35-7.45 [facility] Comment on above: Order Comment: Speci men Type: ARTERIAL BLOOD SPECIMENOrdering Facility: [facility] Address: [address] [place] [address] Performed By: #### A LLBG ####[facility] LABCLIA [id number] [place] [address] [place] Potassium [Moles/Vol] 4.6 mmol/L Normal 3.5-5.0 [facility] Comment on above: Order Comment: Speci men Type: ARTERIAL BLOOD SPECIMENOrdering Facility: [facility] Address: [address] [place] [address] Performed By: #### A LLBG ####[facility] LABCLIA [id number] [place] [address] [place] Sodium [Moles/Vol] 132 mmol/L Low 136-144 [facility] Comment on above: Order Comment: Speci men Type: ARTERIAL BLOOD SPECIMENOrdering Facility: [facility] Address: [address] [place] [address] Performed By: #### A LLBG ####[facility] LABCLIA [id number] [place] [address] [place] Base excess Calc (Bld) [Moles/Vol] 1 mmol/L Normal 0-2 [facility] Comment on above: Order Comment: Speci men Type: ARTERIAL BLOOD SPECIMENOrdering Facility: [facility] Address: [address] [place] [address] Performed By: #### A LLBG ####[facility] LABIA [id number] [place] [address] [place] Calcium.ionized (Bld) [Mass/Vol] 1.17 mmol/L Normal 1.08-1.30 [facility] Comment on above: Order Comment: Speci men Type: ARTERIAL BLOOD SPECIMENOrdering Facility: [facility] Address: [address] [place] [address] Performed By: #### A LLBG ####[facility] LABCLIA [id number] [place] [address] [place] Calcium.ionized adjusted to pH 7.4 (BldA) [Moles/Vol] 1.16 mmol/L Normal 1.08-1.30 [facility] Comment on above: Order Comment: Speci men Type: ARTERIAL BLOOD SPECIMENOrdering Facility: [facility] Address: [address] [place] [address] Performed By: #### A LLBG ####[facility] LABCLIA [id number] [place] [address] [place] Carboxyhemoglobin (BldA) [Mass fraction] 1.1 % Normal 0.0-2.0 [facility] Comment on above: Order Comment: Speci men Type: ARTERIAL BLOOD SPECIMENOrdering Facility: [facility] Address: [address] [place] [address] Result Comment: Carb oxyhemoglobin Reference Range for Smokers: 2.0-8.0% Performed By: #### A LLBG ####[facility] LABCLIA [id number] [place] [address] [place] CO2 (Bld) [Partial pressure] 45 mm Hg Normal 36-46 [facility] Comment on above: Order Comment: Speci men Type: ARTERIAL BLOOD SPECIMENOrdering Facility: [facility] Address: [address] [place] [address] Performed By: #### A LLBG ####[facility] LABCLIA [id number] [place] [address] [place] Glucose [Mass/Vol] 135 mg/dL High 60-105 [facility] Comment on above: Order Comment: Speci men Type: ARTERIAL BLOOD SPECIMENOrdering Facility: [facility] Address: [address] [place] [address] Performed By: #### A LLBG ####[facility] [id number] [place] [address] [place] Hematocrit (Bld) [Volume fraction] 30.0 % Low 39.0-51.0 [facility] Comment on above: Order Comment: Speci men Type: ARTERIAL BLOOD SPECIMENOrdering Facility: [facility] Address: [address] [place] [address] Performed By: #### A LLBG ####[facility] [id number] [place] [address] [place] Hemoglobin (Bld) [Mass/Vol] 9.7 g/dL Low 13.0-17.0 [facility] Comment on above: Order Comment: Speci men Type: ARTERIAL BLOOD SPECIMENOrdering Facility: [facility] Address: [address] [place] [address] Performed By: #### A LLBG ####[facility] LABIA [id number] [place] [address] [place] Lactate [Moles/Vol] 3.2 mmol/L High 0.5-2.2 [facility] Comment on above: Order Comment: Speci men Type: ARTERIAL BLOOD SPECIMENOrdering Facility: [facility] Address: [address] [place] [address] Performed By: #### A LLBG ####[facility] LABIA [id number] [place] [address] [place] Methemoglobin (Bld) [Mass fraction] 1.3 % Normal 0.0-1.5 [facility] Comment on above: Order Comment: Speci men Type: ARTERIAL BLOOD SPECIMENOrdering Facility: [facility] Address: [address] [place] [address] Performed By: #### A LLBG ####[facility] LABCLIA [id number] [place] [address] [place] Oxygen (Bld) [Partial pressure] 138 mm Hg High 85-95 [facility] Comment on above: Order Comment: Speci men Type: ARTERIAL BLOOD SPECIMENOrdering Facility: [facility] Address: [address] [place] [address] Performed By: #### A LLBG ####[facility] LABCLIA [id number] [place] [address] [place] Oxyhemoglobin (BldA) [Mass fraction] 96 % Normal 95-98 [facility] Comment on above: Order Comment: Speci men Type: ARTERIAL BLOOD SPECIMENOrdering Facility: [facility] Address: [address] [place] [address] Performed By: #### A LLBG ####[facility] LABIA [id number] [place] [address] [place] pH (Bld) 7.38 [pH] Normal 7.35-7.45 [facility] Comment on above: Order Comment: Speci men Type: ARTERIAL BLOOD SPECIMENOrdering Facility: [facility] Address: [address] [place] [address] Performed By: #### A LLBG ####[facility] LABIA [id number] [place] [address] [place] Potassium [Moles/Vol] 4.2 mmol/L Normal 3.5-5.0 [facility] Comment on above: Order Comment: Speci men Type: ARTERIAL BLOOD SPECIMENOrdering Facility: [facility] Address: [address] [place] [address] Performed By: #### A LLBG ####[facility] LABCLIA [id number] [place] [address] [place] Sodium [Moles/Vol] 133 mmol/L Low 136-144 [facility] Comment on above: Order Comment: Speci men Type: ARTERIAL BLOOD SPECIMENOrdering Facility: [facility] Address: [address] [place] [address] Performed By: #### A LLBG ####[facility] LABIA [id number] [place] [address] [place] Base excess Calc (Bld) [Moles/Vol] 1 mmol/L Normal 0-2 [facility] Comment on above: Order Comment: Speci men Type: ARTERIAL BLOOD SPECIMENOrdering Facility: [facility] Address: [address] [place] [address] Performed By: #### A LLBG ####[facility] LABIA [id number] [place] [address] [place] Body temperature 98.6 [degF] Normal [facility] Comment on above: Order Comment: Speci men Type: ARTERIAL BLOOD SPECIMENOrdering Facility: [facility] Address: [address] [place] [address] Performed By: #### A LLBG ####[facility] LABIA [id number] [place] [address] [place] Calcium.ionized (Bld) [Mass/Vol] 1.18 mmol/L Normal 1.08-1.30 [facility] Comment on above: Order Comment: Speci men Type: ARTERIAL BLOOD SPECIMENOrdering Facility: [facility] Address: [address] [place] [address] Performed By: #### A LLBG ####[facility] LABIA [id number] [place] [address] [place] Calcium.ionized adjusted to pH 7.4 (BldA) [Moles/Vol] 1.18 mmol/L Normal 1.08-1.30 [facility] Comment on above: Order Comment: Speci men Type: ARTERIAL BLOOD SPECIMENOrdering Facility: [facility] Address: [address] [place] [address] Performed By: #### A LLBG ####[facility] LABCLIA [id number] [place] [address] [place] Carboxyhemoglobin (BldA) [Mass fraction] 1.0 % Normal 0.0-2.0 [facility] Comment on above: Order Comment: Speci men Type: ARTERIAL BLOOD SPECIMENOrdering Facility: [facility] Address: [address] [place] [address] Result Comment: Carb oxyhemoglobin Reference Range for Smokers: 2.0-8.0% Performed By: #### A LLBG ####[facility] LABCLIA [id number] [place] [address] [place] CO2 (Bld) [Partial pressure] 42 mm Hg Normal 36-46 [facility] Comment on above: Order Comment: Speci men Type: ARTERIAL BLOOD SPECIMENOrdering Facility: [facility] Address: [address] [place] [address] Performed By: #### A LLBG ####[facility] LABCLIA [id number] [place] [address] [place] Glucose [Mass/Vol] 149 mg/dL High 60-105 [facility] Comment on above: Order Comment: Speci men Type: ARTERIAL BLOOD SPECIMENOrdering Facility: [facility] Address: [address] [place] [address] Performed By: #### A LLBG ####[facility] LABCLIA [id number] [place] [address] [place] HCO3 (Bld) [Moles/Vol] 26 mmol/L Normal 22-26 [facility] Comment on above: Order Comment: Speci men Type: ARTERIAL BLOOD SPECIMENOrdering Facility: [facility] Address: [address] [place] [address] Performed By: #### A LLBG ####[facility] LABIA [id number] [place] [address] [place] Hematocrit (Bld) [Volume fraction] 29.5 % Low 39.0-51.0 [facility] Comment on above: Order Comment: Speci men Type: ARTERIAL BLOOD SPECIMENOrdering Facility: [facility] Address: [address] [place] [address] Performed By: #### A LLBG ####[facility] LABIA [id number] [place] [address] [place] Hemoglobin (Bld) [Mass/Vol] 9.5 g/dL Low 13.0-17.0 [facility] Comment on above: Order Comment: Speci men Type: ARTERIAL BLOOD SPECIMENOrdering Facility: [facility] Address: [address] [place] [address] Performed By: #### A LLBG ####[facility] LABIA [id number] [place] [address] [place] Lactate [Moles/Vol] 3.5 mmol/L High 0.5-2.2 [facility] Comment on above: Order Comment: Speci men Type: ARTERIAL BLOOD SPECIMENOrdering Facility: [facility] Address: [address] [place] [address] Performed By: #### A LLBG ####[facility] LABIA [id number] [place] [address] [place] Methemoglobin (Bld) [Mass fraction] 1.3 % Normal 0.0-1.5 [facility] Comment on above: Order Comment: Speci men Type: ARTERIAL BLOOD SPECIMENOrdering Facility: [facility] Address: [address] [place] [address] Performed By: #### A LLBG ####[facility] LABIA [id number] [place] [address] [place] O2 THERAPY Ventilator Normal [facility] Comment on above: Order Comment: Speci men Type: ARTERIAL BLOOD SPECIMENOrdering Facility: [facility] Address: [address] [place] [address] Performed By: #### A LLBG ####[facility] LABCLIA [id number] [place] [address] [place] Oxygen (Bld) [Partial pressure] 165 mm Hg High 85-95 [facility] Comment on above: Order Comment: Speci men Type: ARTERIAL BLOOD SPECIMENOrdering Facility: [facility] Address: [address] [place] [address] Performed By: #### A LLBG ####[facility] LABIA [id number] [place] [address] [place] Oxyhemoglobin (BldA) [Mass fraction] 96 % Normal 95-98 [facility] Comment on above: Order Comment: Speci men Type: ARTERIAL BLOOD SPECIMENOrdering Facility: [facility] Address: [address] [place] [address] Performed By: #### A LLBG ####[facility] LABIA [id number] [place] [address] [place] pH (Bld) 7.40 [pH] Normal 7.35-7.45 [facility] Comment on above: Order Comment: Speci men Type: ARTERIAL BLOOD SPECIMENOrdering Facility: [facility] Address: [address] [place] [address] Performed By: #### A LLBG ####[facility] LABIA [id number] [place] [address] [place] Potassium [Moles/Vol] 4.1 mmol/L Normal 3.5-5.0 [facility] Comment on above: Order Comment: Speci men Type: ARTERIAL BLOOD SPECIMENOrdering Facility: [facility] Address: [address] [place] [address] Performed By: #### A LLBG ####[facility] LABIA [id number] [place] [address] [place] Sodium [Moles/Vol] 132 mmol/L Low 136-144 [facility] Comment on above: Order Comment: Speci men Type: ARTERIAL BLOOD SPECIMENOrdering Facility: [facility] Address: [address] [place] [address] Performed By: #### A LLBG ####[facility] LABCLIA [id number] [place] [address] [place] CASE MANAGEMon 09-20-2023 CASE MANAGEM Normal [facility] CBC panel Auto (Bld)on 09-19 Erythrocyte distribution width (RBC) [Ratio] 16.2 % High 11.5-15.0 [facility] Comment on above: Order Comment: Speci men Type: BLOOD SPECIMENOrdering Facility: [facility] Address: [address] [place] [address] Performed By: #### 5 8410-2 ####[facility] LABIA [id number] [place] [address] [place] Hematocrit (Bld) [Volume fraction] 26.1 % Low 39.0-51.0 [facility] Comment on above: Order Comment: Speci men Type: BLOOD SPECIMENOrdering Facility: [facility] Address: [address] [place] [address] Performed By: #### 5 8410-2 ####[facility] LABCLIA [id number] [place] [address] [place] Hemoglobin (Bld) [Mass/Vol] 9.1 g/dL Low 13.0-17.0 [facility] Comment on above: Order Comment: Speci men Type: BLOOD SPECIMENOrdering Facility: [facility] Address: [address] [place] [address] Performed By: #### 5 8410-2 ####[facility] LABIA [id number] [place] [address] [place] MCH (RBC) [Entitic mass] 29.9 pg Normal 26.0-34.0 [facility] Comment on above: Order Comment: Speci men Type: BLOOD SPECIMENOrdering Facility: [facility] Address: [address] [place] [address] Performed By: #### 5 8410-2 ####[facility] LABIA [id number] [place] [address] [place] MCHC (RBC) [Mass/Vol] 34.9 g/dL Normal 30.5-36.0 [facility] Comment on above: Order Comment: Speci men Type: BLOOD SPECIMENOrdering Facility: [facility] Address: [address] [place] [address] Performed By: #### 5 8410-2 ####[facility] LABIA [id number] [place] [address] [place] MCV (RBC) [Entitic vol] 85.9 fL Normal 80.0-100.0 [facility] Comment on above: Order Comment: Speci men Type: BLOOD SPECIMENOrdering Facility: [facility] Address: [address] [place] [address] Performed By: #### 5 8410-2 ####[facility] [id number] [place] [address] [place] Nucleated RBC (Bld) [#/Vol] 10*3/uL Normal <0.01 [facility] Comment on above: Order Comment: Speci men Type: BLOOD SPECIMENOrdering Facility: [facility] Address: [address] [place] [address] Performed By: #### 5 8410-2 ####[facility] [id number] [place] [address] [place] Platelet mean volume (Bld) [Entitic vol] 10.9 fL Normal 9.0-12.7 [facility] Comment on above: Order Comment: Speci men Type: BLOOD SPECIMENOrdering Facility: [facility] Address: [address] [place] [address] Performed By: #### 5 8410-2 ####[facility] LABIA [id number] [address] [address] [place] Platelets (Bld) [#/Vol] 134 10*3/uL Low 150-400 [facility] Comment on above: Order Comment: Speci men Type: BLOOD SPECIMENOrdering Facility: [facility] Address: [address] [place] [address] Result Comment: Resu lts checked and verified.No clot detected. Performed By: #### 5 8410-2 ####[facility] LABIA [id number] [place] [address] [place] RBC (Bld) [#/Vol] 3.04 10*6/uL Low 4.20-6.00 [facility] Comment on above: Order Comment: Speci men Type: BLOOD SPECIMENOrdering Facility: [facility] Address: [address] [place] [address] Performed By: #### 5 8410-2 ####[facility] [id number] [place] [id number] [place] WBC (Bld) [#/Vol] 15.18 10*3/uL High 3.70-11.00 [facility] Comment on above: Order Comment: Speci men Type: BLOOD SPECIMENOrdering Facility: [facility] Address: [address] [place] [address] Performed By: #### 5 8410-2 ####[facility] LABIA [id number] [place] [id number] [place] CONSULT PROGon 09-20-2023 CONSULT PROG Normal [facility] Comprehensive metabolic 2000 panelon 09-20-2023 Albumin [Mass/Vol] 3.5 g/dL Low 3.9-4.9 [facility] Comment on above: Order Comment: Speci men Type: BLOOD SPECIMENOrdering Facility: [facility] Address: [address] [place] [address] Performed By: #### H STNT, 13131-5 ####[facility] LABCLIA [id number] [place] [address] [place] ALP [Catalytic activity/Vol] 42 U/L Normal 38-113 [facility] Comment on above: Order Comment: Speci men Type: BLOOD SPECIMENOrdering Facility: [facility] Address: [address] [place] [address] Performed By: #### H STNT, 27224-0 ####[facility] [id number] [place] [address] [place] ALT [Catalytic activity/Vol] 19 U/L Normal 10-54 [facility] Comment on above: Order Comment: Speci men Type: BLOOD SPECIMENOrdering Facility: [facility] Address: [address] [place] [address] Performed By: #### H STNT, 76667-8 ####[facility] LABCLIA [id number] [place] [address] [place] Anion gap [Moles/Vol] 12 mmol/L Normal 8-15 [facility] Comment on above: Order Comment: Speci men Type: BLOOD SPECIMENOrdering Facility: [facility] Address: [address] [place] [address] Performed By: #### H STNT, 41799-2 ####[facility] LABCLIA [id number] [place] [address] [place] AST [Catalytic activity/Vol] 37 U/L Normal 14-40 [facility] Comment on above: Order Comment: Speci men Type: BLOOD SPECIMENOrdering Facility: [facility] Address: [address] [place] [address] Performed By: #### H STNT, 86019-2 ####[facility] LABCLIA [id number] [place] [address] [place] Bilirubin [Mass/Vol] 1.2 mg/dL Normal 0.2-1.3 [facility] Comment on above: Order Comment: Speci men Type: BLOOD SPECIMENOrdering Facility: [facility] Address: [address] [place] [address] Performed By: #### H STNT, 96087-5 ####[facility] LABCLIA [id number] [place] [address] [place] Calcium [Mass/Vol] 8.6 mg/dL Normal 8.5-10.2 [facility] Comment on above: Order Comment: Speci men Type: BLOOD SPECIMENOrdering Facility: [facility] Address: [address] [place] [address] Performed By: #### H STNT, 39075-4 ####[facility] LABCLIA [id number] [place] [address] [place] Chloride [Moles/Vol] 100 mmol/L Normal 98-107 [facility] Comment on above: Order Comment: Speci men Type: BLOOD SPECIMENOrdering Facility: [facility] Address: [address] [place] [address] Performed By: #### H STNT, 56512-3 ####[facility] LABCLIA [id number] [place] [address] [place] CO2 [Moles/Vol] 23 mmol/L Normal 22-30 [facility] Comment on above: Order Comment: Speci men Type: BLOOD SPECIMENOrdering Facility: [facility] Address: [address] [place] [address] Performed By: #### H STNT, 51096-9 ####[facility] LABCLIA [id number] [place] [address] [place] Creatinine [Mass/Vol] 0.91 mg/dL Normal 0.73-1.22 [facility] Comment on above: Order Comment: Speci men Type: BLOOD SPECIMENOrdering Facility: [facility] Address: [address] [place] [address] Performed By: #### H STNT, 44247-7 ####[facility] LABIA [id number] [place] [address] [place] Creatinine and Glomerular filtration rate.predicted panel (S/P/Bld) 91 mL/min/1.73m??? Normal >=60 [facility] Comment on above: Order Comment: Ricardo ignacio Type: BLOOD SPECIMENOrdering Facility: [facility] Address: [address] [place] [address] Result Comment: Aileen mated Glomerular Filtration Rate [...] accurately reflect actual GFR. Performed By: #### H STNT, 95193-8 ####[facility] LABIA [id number] [place] [address] [place] Glucose [Mass/Vol] 151 mg/dL High 74-99 [facility] Comment on above: Order Comment: Ricardo ignacio Type: BLOOD SPECIMENOrdering Facility: [facility] Address: [address] [place] [address] Result Comment: The [place] [employer] (ADA) provides guidance for cutoff values for fasting glucose and random glucose. The ADA defines fasting as no caloric intake for at least 8 hours. Fasting plasma glucose results between 100 to 125 mg/dL indicate increased risk for diabetes (prediabetes).Fasting plasma glucose results greater than or equal to 126 mg/dL meet the criteria for diagnosis of diabetes. In the absence of unequivocal hyperglycemia, results should be confirmed by repeat testing. In a patient with classic symptoms of hyperglycemia or hyperglycemic crisis, random plasma glucose results greater than or equal to 200 mg/dL meet the criteria for diagnosis of diabetes.Reference: Standards of Medical Care in Diabetes 2016, [place] [employer]. Diabetes Care. 2016.39(Suppl 1). Performed By: #### H STNT, 38693-5 ####[facility] LABCLIA [id number] [place] [address] [place] Potassium [Moles/Vol] 4.2 mmol/L Normal 3.7-5.1 [facility] Comment on above: Order Comment: Speci men Type: BLOOD SPECIMENOrdering Facility: [facility] Address: [address] [place] [address] Performed By: #### H STNT, 19198-8 ####[facility] LABIA [id number] [place] [address] [place] Protein [Mass/Vol] 5.2 g/dL Low 6.3-8.0 [facility] Comment on above: Order Comment: Speci men Type: BLOOD SPECIMENOrdering Facility: [facility] Address: [address] [place] [address] Performed By: #### H STNT, 33377-5 ####[facility] LABIA [id number] [place] [address] [place] Sodium [Moles/Vol] 135 mmol/L Low 136-144 [facility] Comment on above: Order Comment: Speci men Type: BLOOD SPECIMENOrdering Facility: [facility] Address: [address] [place] [address] Performed By: #### H STNT, 46045-1 ####[facility] LABIA [id number] [place] [address] [place] Urea nitrogen [Mass/Vol] 18 mg/dL Normal 9-24 [facility] Comment on above: Order Comment: Speci men Type: BLOOD SPECIMENOrdering Facility: [facility] Address: [address] [place] [address] Performed By: #### H STNT, 39075-4 ####[facility] LABIA [id number] [place] [address] [place] Erythrocyte distribution wid th Auto (RBC) [Ratio]on 09-20-2023 Erythrocyte distribution width (RBC) [Ratio] 16.2 % High 11.5-15.0 [facility] Gas + CO Pnl BldVon 09-20-19 Body temperature 98.6 [degF] Normal [facility] Comment on above: Order Comment: Speci men Type: VENOUS BLOOD SPECIMENOrdering Facility: [facility] Address: [address] [place] [address] Performed By: #### 2 4344-4 ####[facility] LABCLIA [id number] [address] [place] Order Comment: Speci men Type: ARTERIAL BLOOD SPECIMENOrdering Facility: [facility] Address: [address] [place] [address] Performed By: #### A LLBG ####[facility] LABCLIA [id number] [place] [address] [place] HCO3 (Bld) [Moles/Vol] 25 mmol/L Normal 22-26 [facility] Comment on above: Order Comment: Speci men Type: VENOUS BLOOD SPECIMENOrdering Facility: [facility] Address: [address] [place] [address] Performed By: #### 2 4344-4 ####[facility] LABCLIA [id number] [place] [address] [place] Order Comment: Speci men Type: ARTERIAL BLOOD SPECIMENOrdering Facility: [facility] Address: [address] [place] [address] Performed By: #### A LLBG ####[facility] LABCLIA [id number] [place] [address] [place] O2 THERAPY Ventilator Normal [facility] Comment on above: Order Comment: Speci men Type: VENOUS BLOOD SPECIMENOrdering Facility: [facility] Address: [address] [place] [address] Performed By: #### 2 4344-4 ####[facility] LABCLIA [id number] [place] [address] [place] Order Comment: Speci men Type: ARTERIAL BLOOD SPECIMENOrdering Facility: [facility] Address: [address] [place] [address] Performed By: #### A LLBG ####[facility] LABIA [id number] [place] [address] [place] Gas and Carbon monoxide pane l (BldV)on 09-20-2023 Base excess Calc (BldV) [Moles/Vol] 2 mmol/L Normal 0-2 [facility] Comment on above: Order Comment: Speci men Type: VENOUS BLOOD SPECIMENOrdering Facility: [facility] Address: [address] [place] [address] Performed By: #### 2 4344-4 ####[facility] LABIA [id number] [place] [address] [place] Calcium.ionized (Bld) [Mass/Vol] 1.15 mmol/L Normal 1.08-1.30 [facility] Comment on above: Order Comment: Speci men Type: VENOUS BLOOD SPECIMENOrdering Facility: [facility] Address: [address] [place] [address] Performed By: #### 2 4344-4 ####[facility] LABIA [id number] [place] [address] [place] Calcium.ionized adjusted to pH 7.4 (BldA) [Moles/Vol] 1.12 mmol/L Normal 1.08-1.30 [facility] Comment on above: Order Comment: Speci men Type: VENOUS BLOOD SPECIMENOrdering Facility: [facility] Address: [address] [place] [address] Performed By: #### 2 4344-4 ####[facility] LABIA [id number] [place] [address] [place] Carboxyhemoglobin (BldV) [Mass fraction] 1.5 % Normal 0.0-2.0 [facility] Comment on above: Order Comment: Speci men Type: VENOUS BLOOD SPECIMENOrdering Facility: [facility] Address: [address] [place] [address] Result Comment: Carb oxyhemoglobin Reference Range for Smokers: 2.0-8.0% Performed By: #### 2 4344-4 ####[facility] LABCLIA [id number] [place] [address] [place] CO2 (BldV) [Partial pressure] 51 mm[Hg] Normal 42-55 [facility] Comment on above: Order Comment: Speci men Type: VENOUS BLOOD SPECIMENOrdering Facility: [facility] Address: [address] [place] [address] Performed By: #### 2 4344-4 ####[facility] LABCLIA [id number] [place] [address] [place] Glucose [Mass/Vol] 181 mg/dL High 60-105 [facility] Comment on above: Order Comment: Speci men Type: VENOUS BLOOD SPECIMENOrdering Facility: [facility] Address: [address] [place] [address] Performed By: #### 2 4344-4 ####[facility] LABCLIA [id number] [place] [address] [place] HCO3 (Bld) [Moles/Vol] 28 mmol/L Normal 24-28 [facility] Comment on above: Order Comment: Speci men Type: VENOUS BLOOD SPECIMENOrdering Facility: [facility] Address: [address] [place] [address] Performed By: #### 2 4344-4 ####[facility] LABCLIA [id number] [place] [address] [place] Hematocrit (Bld) [Volume fraction] 25.6 % Low 39.0-51.0 [facility] Comment on above: Order Comment: Speci men Type: VENOUS BLOOD SPECIMENOrdering Facility: [facility] Address: [address] [place] [address] Performed By: #### 2 4344-4 ####[facility] LABCLIA [id number] [place] [address] [place] Hemoglobin (Bld) [Mass/Vol] 8.2 g/dL Low 13.0-17.0 [facility] Comment on above: Order Comment: Speci men Type: VENOUS BLOOD SPECIMENOrdering Facility: [facility] Address: [address] [place] [address] Performed By: #### 2 4344-4 ####[facility] LABCLIA [id number] [place] [address] [place] Lactate [Moles/Vol] 1.4 mmol/L Normal 0.5-2.2 [facility] Comment on above: Order Comment: Speci men Type: VENOUS BLOOD SPECIMENOrdering Facility: [facility] Address: [address] [place] [address] Performed By: #### 2 4344-4 ####[facility] LABCLIA [id number] [place] [address] [place] Methemoglobin (Bld) [Mass fraction] 2.0 % High 0.0-1.5 [facility] Comment on above: Order Comment: Speci men Type: VENOUS BLOOD SPECIMENOrdering Facility: [facility] Address: [address] [place] [address] Performed By: #### 2 4344-4 ####[facility] LABCLIA [id number] [place] [address] [place] Oxygen (BldV) [Partial pressure] 39 mm[Hg] Normal 35-45 [facility] Comment on above: Order Comment: Speci men Type: VENOUS BLOOD SPECIMENOrdering Facility: [facility] Address: [address] [place] [address] Performed By: #### 2 4344-4 ####[facility] LABCLIA [id number] [address] [address] [place] Oxygen saturation in Venous blood 69 % Normal 60-85 [facility] Comment on above: Order Comment: Speci men Type: VENOUS BLOOD SPECIMENOrdering Facility: [facility] Address: [address] [place], [place] [address] Performed By: #### 2 4344-4 ####[facility] LABCLIA [id number] [place] [address] [place] Oxyhemoglobin (BldV) [Mass fraction] 66 % Normal 60-85 [facility] Comment on above: Order Comment: Speci men Type: VENOUS BLOOD SPECIMENOrdering Facility: [facility] Address: [address] [place] [address] Performed By: #### 2 4344-4 ####[facility] LABIA [id number] [place] [address] [place] pH (BldV) 7.35 [pH] Normal 7.32-7.42 [facility] Comment on above: Order Comment: Speci men Type: VENOUS BLOOD SPECIMENOrdering Facility: [facility] Address: [address] [place] [address] Performed By: #### 2 4344-4 ####[facility] LABIA [id number] [place] [address] [place] Potassium [Moles/Vol] 5.0 mmol/L Normal 3.5-5.0 [facility] Comment on above: Order Comment: Speci men Type: VENOUS BLOOD SPECIMENOrdering Facility: [facility] Address: [address] [place], [place] [address] Performed By: #### 2 4344-4 ####[facility] LABCLIA [id number] [place] [id number] [place] Sodium [Moles/Vol] 131 mmol/L Low 136-144 [facility] Comment on above: Order Comment: Speci men Type: VENOUS BLOOD SPECIMENOrdering Facility: [facility] Address: [address] [place] [address] Performed By: #### 2 4344-4 ####[facility] LABIA [id number] [place] [address] [place] Base excess Calc (BldV) [Moles/Vol] 3 mmol/L High 0-2 [facility] Comment on above: Order Comment: Speci men Type: VENOUS BLOOD SPECIMENOrdering Facility: [facility] Address: [address] [place] [address] Performed By: #### 2 4344-4 ####[facility] LABIA [id number] [place] [address] [place] Body temperature 98.78 [degF] Normal [facility] Comment on above: Order Comment: Speci men Type: VENOUS BLOOD SPECIMENOrdering Facility: [facility] Address: [address] [place] [address] Performed By: #### 2 4344-4 ####[facility] [id number] [place] [address] [place] Calcium.ionized (Bld) [Mass/Vol] 1.19 mmol/L Normal 1.08-1.30 [facility] Comment on above: Order Comment: Speci men Type: VENOUS BLOOD SPECIMENOrdering Facility: [facility] Address: [address] [place] [address] Performed By: #### 2 4344-4 ####[facility] LABIA [id number] [place] [address] [place] Calcium.ionized adjusted to pH 7.4 (BldA) [Moles/Vol] 1.15 mmol/L Normal 1.08-1.30 [facility] Comment on above: Order Comment: Speci men Type: VENOUS BLOOD SPECIMENOrdering Facility: [facility] Address: [address] [place] [address] Performed By: #### 2 4344-4 ####[facility] LABCLIA [id number] [place] [address] [place] Carboxyhemoglobin (BldV) [Mass fraction] 0.6 % Normal 0.0-2.0 [facility] Comment on above: Order Comment: Speci men Type: VENOUS BLOOD SPECIMENOrdering Facility: [facility] Address: [address] [place] [address] Result Comment: Carb oxyhemoglobin Reference Range for Smokers: 2.0-8.0% Performed By: #### 2 4344-4 ####[facility] LABCLIA [id number] [place] [address] [place] CO2 (BldV) [Partial pressure] 54 mm[Hg] Normal 42-55 [facility] Comment on above: Order Comment: Speci men Type: VENOUS BLOOD SPECIMENOrdering Facility: [facility] Address: [address] [place] [address] Performed By: #### 2 4344-4 ####[facility] LABCLIA [id number] [place] [address] [place] CO2 adjusted to patient's actual temperature (BldV) [Partial pressure] 54 mmHg Normal 42-55 [facility] Comment on above: Order Comment: Speci men Type: VENOUS BLOOD SPECIMENOrdering Facility: [facility] Address: [address] [place] [address] Performed By: #### 2 4344-4 ####[facility] LABCLIA [id number] [place] [address] [place] Glucose [Mass/Vol] 139 mg/dL High 60-105 [facility] Comment on above: Order Comment: Speci men Type: VENOUS BLOOD SPECIMENOrdering Facility: [facility] Address: [address] [place] [address] Performed By: #### 2 4344-4 ####[facility] LABCLIA [id number] [place] [id number] [place] HCO3 (Bld) [Moles/Vol] 29 mmol/L High 24-28 [facility] Comment on above: Order Comment: Speci men Type: VENOUS BLOOD SPECIMENOrdering Facility: [facility] Address: [address] [place] [address] Performed By: #### 2 4344-4 ####[facility] LABCLIA [id number] [place] [address] [place] Hematocrit (Bld) [Volume fraction] 27.2 % Low 39.0-51.0 [facility] Comment on above: Order Comment: Speci men Type: VENOUS BLOOD SPECIMENOrdering Facility: [facility] Address: [address] [place] [address] Performed By: #### 2 4344-4 ####[facility] LABIA [id number] [place] [address] [place] Hemoglobin (Bld) [Mass/Vol] 8.8 g/dL Low 13.0-17.0 [facility] Comment on above: Order Comment: Speci men Type: VENOUS BLOOD SPECIMENOrdering Facility: [facility] Address: [address] [place] [address] Performed By: #### 2 4344-4 ####[facility] LABIA [id number] [place] [address] [place] Lactate [Moles/Vol] 1.1 mmol/L Normal 0.5-2.2 [facility] Comment on above: Order Comment: Speci men Type: VENOUS BLOOD SPECIMENOrdering Facility: [facility] Address: [address] [place] [address] Performed By: #### 2 4344-4 ####[facility] LABCLIA [id number] [place] [address] [place] Methemoglobin (Bld) [Mass fraction] 2.1 % High 0.0-1.5 [facility] Comment on above: Order Comment: Speci men Type: VENOUS BLOOD SPECIMENOrdering Facility: [facility] Address: [address] [place] [address] Performed By: #### 2 4344-4 ####[facility] LABCLIA [id number] [address] [address] [place] O2 THERAPY NC = Nasal Cannula Normal [facility] Comment on above: Order Comment: Speci men Type: VENOUS BLOOD SPECIMENOrdering Facility: [facility] Address: [address] [place], [place] [address] Performed By: #### 2 4344-4 ####[facility] LABCLIA [id number] [place] [address] [place] Oxygen (BldV) [Partial pressure] 42 mm[Hg] Normal 35-45 [facility] Comment on above: Order Comment: Speci men Type: VENOUS BLOOD SPECIMENOrdering Facility: [facility] Address: [address] [place], [place] [address] Performed By: #### 2 4344-4 ####[facility] LABCLIA [id number] [place] [address] [place] Oxygen adjusted to patient's actual temperature (BldV) [Partial pressure] 43 mmHg Normal 35-45 [facility] Comment on above: Order Comment: Speci men Type: VENOUS BLOOD SPECIMENOrdering Facility: [facility] Address: [address] [place], [place] [address] Performed By: #### 2 4344-4 ####[facility] LABCLIA [id number] [address] [address] [place] Oxygen saturation in Venous blood 70 % Normal 60-85 [facility] Comment on above: Order Comment: Speci men Type: VENOUS BLOOD SPECIMENOrdering Facility: [facility] Address: [address] [place], [place] [address] Performed By: #### 2 4344-4 ####[facility] LABCLIA [id number] [place] [address] [place] Oxyhemoglobin (BldV) [Mass fraction] 68 % Normal 60-85 [facility] Comment on above: Order Comment: Speci men Type: VENOUS BLOOD SPECIMENOrdering Facility: [facility] Address: [address] [place] [address] Performed By: #### 2 4344-4 ####[facility] LABIA [id number] [place] [address] [place] pH (BldV) 7.35 [pH] Normal 7.32-7.42 [facility] Comment on above: Order Comment: Speci men Type: VENOUS BLOOD SPECIMENOrdering Facility: [facility] Address: [address] [place] [address] Performed By: #### 2 4344-4 ####[facility] LABIA [id number] [place] [address] [place] pH adjusted to patient's actual temperature (BldV) 7.35 Normal 7.32-7.42 [facility] Comment on above: Order Comment: Speci men Type: VENOUS BLOOD SPECIMENOrdering Facility: [facility] Address: [address] [place] [address] Performed By: #### 2 4344-4 ####[facility] LABIA [id number] [place] [address] [place] Potassium [Moles/Vol] 5.0 mmol/L Normal 3.5-5.0 [facility] Comment on above: Order Comment: Speci men Type: VENOUS BLOOD SPECIMENOrdering Facility: [facility] Address: [address] [place] [address] Performed By: #### 2 4344-4 ####[facility] LABCLIA [id number] [place] [address] [place] Sodium [Moles/Vol] 132 mmol/L Low 136-144 [facility] Comment on above: Order Comment: Speci men Type: VENOUS BLOOD SPECIMENOrdering Facility: [facility] Address: [address] [place] [address] Performed By: #### 2 4344-4 ####[facility] LABIA [id number] [place] [address] [place] Base excess Calc (BldV) [Moles/Vol] 2 mmol/L Normal 0-2 [facility] Comment on above: Order Comment: Speci men Type: VENOUS BLOOD SPECIMENOrdering Facility: [facility] Address: [address] [place] [address] Performed By: #### 2 4344-4 ####[facility] LABIA [id number] [place] [address] [place] Body temperature 97.7 [degF] Normal [facility] Comment on above: Order Comment: Speci men Type: VENOUS BLOOD SPECIMENOrdering Facility: [facility] Address: [address] [place] [address] Performed By: #### 2 4344-4 ####[facility] LABIA [id number] [place] [address] [place] Calcium.ionized (Bld) [Mass/Vol] 1.16 mmol/L Normal 1.08-1.30 [facility] Comment on above: Order Comment: Speci men Type: VENOUS BLOOD SPECIMENOrdering Facility: [facility] Address: [address] [place] [address] Performed By: #### 2 4344-4 ####[facility] LABIA [id number] [place] [address] [place] Calcium.ionized adjusted to pH 7.4 (BldA) [Moles/Vol] 1.13 mmol/L Normal 1.08-1.30 [facility] Comment on above: Order Comment: Speci men Type: VENOUS BLOOD SPECIMENOrdering Facility: [facility] Address: [address] [place] [address] Performed By: #### 2 4344-4 ####[facility] LABCLIA [id number] [place] [address] [place] Carboxyhemoglobin (BldV) [Mass fraction] 1.7 % Normal 0.0-2.0 [facility] Comment on above: Order Comment: Speci men Type: VENOUS BLOOD SPECIMENOrdering Facility: [facility] Address: [address] [place] [address] Result Comment: Carb oxyhemoglobin Reference Range for Smokers: 2.0-8.0% Performed By: #### 2 4344-4 ####[facility] LABCLIA [id number] [place] [address] [place] CO2 (BldV) [Partial pressure] 52 mm[Hg] Normal 42-55 [facility] Comment on above: Order Comment: Speci men Type: VENOUS BLOOD SPECIMENOrdering Facility: [facility] Address: [address] [place] [address] Performed By: #### 2 4344-4 ####[facility] LABIA [id number] [place] [address] [place] CO2 adjusted to patient's actual temperature (BldV) [Partial pressure] 50 mmHg Normal 42-55 [facility] Comment on above: Order Comment: Speci men Type: VENOUS BLOOD SPECIMENOrdering Facility: [facility] Address: [address] [place] [address] Performed By: #### 2 4344-4 ####[facility] LABCLIA [id number] [place] [address] [place] Glucose [Mass/Vol] 167 mg/dL High 60-105 [facility] Comment on above: Order Comment: Speci men Type: VENOUS BLOOD SPECIMENOrdering Facility: [facility] Address: [address] [place] [address] Performed By: #### 2 4344-4 ####[facility] LABCLIA [id number] [place] [address] [place] HCO3 (Bld) [Moles/Vol] 28 mmol/L Normal 24-28 [facility] Comment on above: Order Comment: Speci men Type: VENOUS BLOOD SPECIMENOrdering Facility: [facility] Address: [address] [place] [address] Performed By: #### 2 4344-4 ####[facility] LABCLIA [id number] [place] [address] [place] Hematocrit (Bld) [Volume fraction] 28.9 % Low 39.0-51.0 [facility] Comment on above: Order Comment: Speci men Type: VENOUS BLOOD SPECIMENOrdering Facility: [facility] Address: [address] [place] [address] Performed By: #### 2 4344-4 ####[facility] LABIA [id number] [place] [address] [place] Hemoglobin (Bld) [Mass/Vol] 9.3 g/dL Low 13.0-17.0 [facility] Comment on above: Order Comment: Speci men Type: VENOUS BLOOD SPECIMENOrdering Facility: [facility] Address: [address] [place] [address] Performed By: #### 2 4344-4 ####[facility] LABIA [id number] [place] [address] [place] Lactate [Moles/Vol] 1.2 mmol/L Normal 0.5-2.2 [facility] Comment on above: Order Comment: Speci men Type: VENOUS BLOOD SPECIMENOrdering Facility: [facility] Address: [address] [place] [address] Performed By: #### 2 4344-4 ####[facility] LABCLIA [id number] [place] [address] [place] Methemoglobin (Bld) [Mass fraction] 1.7 % High 0.0-1.5 [facility] Comment on above: Order Comment: Speci men Type: VENOUS BLOOD SPECIMENOrdering Facility: [facility] Address: [address] [place] [address] Performed By: #### 2 4344-4 ####[facility] LABCLIA [id number] [address] [address] [place] O2 THERAPY NC = Nasal Cannula Normal [facility] Comment on above: Order Comment: Speci men Type: VENOUS BLOOD SPECIMENOrdering Facility: [facility] Address: [address] [place], [place] [address] Performed By: #### 2 4344-4 ####[facility] LABCLIA [id number] [address] [address] [place] Oxygen (BldV) [Partial pressure] 40 mm[Hg] Normal 35-45 [facility] Comment on above: Order Comment: Speci men Type: VENOUS BLOOD SPECIMENOrdering Facility: [facility] Address: [address] [place], [place] [address] Performed By: #### 2 4344-4 ####[facility] LABCLIA [id number] [place] [address] [place] Oxygen adjusted to patient's actual temperature (BldV) [Partial pressure] 38 mmHg Normal 35-45 [facility] Comment on above: Order Comment: Speci men Type: VENOUS BLOOD SPECIMENOrdering Facility: [facility] Address: [address] [place] [address] Performed By: #### 2 4344-4 ####[facility] LABCLIA [id number] [address] [address] [place] Oxygen saturation in Venous blood 72 % Normal 60-85 [facility] Comment on above: Order Comment: Speci men Type: VENOUS BLOOD SPECIMENOrdering Facility: [facility] Address: [address] [place] [address] Performed By: #### 2 4344-4 ####[facility] LABCLIA [id number] [place] [address] [place] Oxyhemoglobin (BldV) [Mass fraction] 69 % Normal 60-85 [facility] Comment on above: Order Comment: Speci men Type: VENOUS BLOOD SPECIMENOrdering Facility: [facility] Address: [address] [place] [address] Performed By: #### 2 4344-4 ####[facility] LABIA [id number] [place] [address] [place] pH (BldV) 7.35 [pH] Normal 7.32-7.42 [facility] Comment on above: Order Comment: Speci men Type: VENOUS BLOOD SPECIMENOrdering Facility: [facility] Address: [address] [place] [address] Performed By: #### 2 4344-4 ####[facility] LABIA [id number] [place] [address] [place] pH adjusted to patient's actual temperature (BldV) 7.36 Normal 7.32-7.42 [facility] Comment on above: Order Comment: Speci men Type: VENOUS BLOOD SPECIMENOrdering Facility: [facility] Address: [address] [place] [address] Performed By: #### 2 4344-4 ####[facility] LABIA [id number] [place] [address] [place] Potassium [Moles/Vol] 5.6 mmol/L High 3.5-5.0 [facility] Comment on above: Order Comment: Speci men Type: VENOUS BLOOD SPECIMENOrdering Facility: [facility] Address: [address] [place] [address] Performed By: #### 2 4344-4 ####[facility] LABIA [id number] [place] [address] [place] Sodium [Moles/Vol] 131 mmol/L Low 136-144 [facility] Comment on above: Order Comment: Speci men Type: VENOUS BLOOD SPECIMENOrdering Facility: [facility] Address: [address] [place] [address] Performed By: #### 2 4344-4 ####[facility] LABIA [id number] [place] [address] [place] Base excess Calc (BldV) [Moles/Vol] 2 mmol/L Normal 0-2 [facility] Comment on above: Order Comment: Speci men Type: VENOUS BLOOD SPECIMENOrdering Facility: [facility] Address: [address] [place] [address] Performed By: #### 2 4344-4 ####[facility] LABIA [id number] [place] [address] [place] Body temperature 97.16 [degF] Normal [facility] Comment on above: Order Comment: Speci men Type: VENOUS BLOOD SPECIMENOrdering Facility: [facility] Address: [address] [place] [address] Performed By: #### 2 4344-4 ####[facility] LABIA [id number] [place] [address] [place] Calcium.ionized (Bld) [Mass/Vol] 1.20 mmol/L Normal 1.08-1.30 [facility] Comment on above: Order Comment: Speci men Type: VENOUS BLOOD SPECIMENOrdering Facility: [facility] Address: [address] [place] [address] Performed By: #### 2 4344-4 ####[facility] LABIA [id number] [place] [address] [place] Calcium.ionized adjusted to pH 7.4 (BldA) [Moles/Vol] 1.15 mmol/L Normal 1.08-1.30 [facility] Comment on above: Order Comment: Speci men Type: VENOUS BLOOD SPECIMENOrdering Facility: [facility] Address: [address] [place] [address] Performed By: #### 2 4344-4 ####[facility] LABCLIA [id number] [place] [address] [place] Carboxyhemoglobin (BldV) [Mass fraction] 1.6 % Normal 0.0-2.0 [facility] Comment on above: Order Comment: Speci men Type: VENOUS BLOOD SPECIMENOrdering Facility: [facility] Address: [address] [place] [address] Result Comment: Carb oxyhemoglobin Reference Range for Smokers: 2.0-8.0% Performed By: #### 2 4344-4 ####[facility] LABCLIA [id number] [place] [address] [place] CO2 (BldV) [Partial pressure] 57 mm[Hg] High 42-55 [facility] Comment on above: Order Comment: Speci men Type: VENOUS BLOOD SPECIMENOrdering Facility: [facility] Address: [address] [place] [address] Performed By: #### 2 4344-4 ####[facility] LABIA [id number] [place] [address] [place] CO2 adjusted to patient's actual temperature (BldV) [Partial pressure] 55 mmHg Normal 42-55 [facility] Comment on above: Order Comment: Speci men Type: VENOUS BLOOD SPECIMENOrdering Facility: [facility] Address: [address] [place] [address] Performed By: #### 2 4344-4 ####[facility] LABCLIA [id number] [place] [address] [place] Glucose [Mass/Vol] 110 mg/dL High 60-105 [facility] Comment on above: Order Comment: Speci men Type: VENOUS BLOOD SPECIMENOrdering Facility: [facility] Address: [address] [place] [address] Performed By: #### 2 4344-4 ####[facility] LABCLIA [id number] [place] [address] [place] HCO3 (Bld) [Moles/Vol] 29 mmol/L High 24-28 [facility] Comment on above: Order Comment: Speci men Type: VENOUS BLOOD SPECIMENOrdering Facility: [facility] Address: [address] [place] [address] Performed By: #### 2 4344-4 ####[facility] LABCLIA [id number] [place] [address] [place] Hematocrit (Bld) [Volume fraction] 28.4 % Low 39.0-51.0 [facility] Comment on above: Order Comment: Speci men Type: VENOUS BLOOD SPECIMENOrdering Facility: [facility] Address: [address] [place] [address] Performed By: #### 2 4344-4 ####[facility] LABCLIA [id number] [place] [address] [place] Hemoglobin (Bld) [Mass/Vol] 9.1 g/dL Low 13.0-17.0 [facility] Comment on above: Order Comment: Speci men Type: VENOUS BLOOD SPECIMENOrdering Facility: [facility] Address: [address] [place] [address] Performed By: #### 2 4344-4 ####[facility] LABIA [id number] [place] [address] [place] Lactate [Moles/Vol] 1.1 mmol/L Normal 0.5-2.2 [facility] Comment on above: Order Comment: Speci men Type: VENOUS BLOOD SPECIMENOrdering Facility: [facility] Address: [address] [place] [address] Performed By: #### 2 4344-4 ####[facility] LABCLIA [id number] [place] [address] [place] LITERS 1 Liters/min Normal [facility] Comment on above: Order Comment: Speci men Type: VENOUS BLOOD SPECIMENOrdering Facility: [facility] Address: [address] [place] [id number] Performed By: #### 2 4344-4 ####[facility] LABCLIA [id number] [address] [address] [place] Methemoglobin (Bld) [Mass fraction] 1.6 % High 0.0-1.5 [facility] Comment on above: Order Comment: Speci men Type: VENOUS BLOOD SPECIMENOrdering Facility: [facility] Address: [address] [place] [place] [id number] Performed By: #### 2 4344-4 ####[facility] LABCLIA [id number] [place] [address] [place] O2 THERAPY NC = Nasal Cannula Normal [facility] Comment on above: Order Comment: Speci men Type: VENOUS BLOOD SPECIMENOrdering Facility: [facility] Address: [address] [place], [place] [address] Performed By: #### 2 4344-4 ####[facility] LABIA [id number] [place] [address] [place] Oxygen (BldV) [Partial pressure] 42 mm[Hg] Normal 35-45 [facility] Comment on above: Order Comment: Speci men Type: VENOUS BLOOD SPECIMENOrdering Facility: [facility] Address: [address] [place] [place] [id number] Performed By: #### 2 4344-4 ####[facility] LABCLIA [id number] [place] [id number] [place] Oxygen adjusted to patient's actual temperature (BldV) [Partial pressure] 40 mmHg Normal 35-45 [facility] Comment on above: Order Comment: Speci men Type: VENOUS BLOOD SPECIMENOrdering Facility: [facility] Address: [address] [place] [place] [id number] Performed By: #### 2 4344-4 ####[facility] LABCLIA [id number] [address] [address] [place] Oxygen saturation in Venous blood 74 % Normal 60-85 [facility] Comment on above: Order Comment: Speci men Type: VENOUS BLOOD SPECIMENOrdering Facility: [facility] Address: [address] [place] [address] Performed By: #### 2 4344-4 ####[facility] LABCLIA [id number] [address] [address] [place] Oxyhemoglobin (BldV) [Mass fraction] 71 % Normal 60-85 [facility] Comment on above: Order Comment: Speci men Type: VENOUS BLOOD SPECIMENOrdering Facility: [facility] Address: [address] [place] [address] Performed By: #### 2 4344-4 ####[facility] LABCLIA [id number] [place] [address] [place] pH (BldV) 7.32 [pH] Normal 7.32-7.42 [facility] Comment on above: Order Comment: Speci men Type: VENOUS BLOOD SPECIMENOrdering Facility: [facility] Address: [address] [place] [address] Performed By: #### 2 4344-4 ####[facility] LABCLIA [id number] [place] [address] [place] pH adjusted to patient's actual temperature (BldV) 7.33 Normal 7.32-7.42 [facility] Comment on above: Order Comment: Speci men Type: VENOUS BLOOD SPECIMENOrdering Facility: [facility] Address: [address] [place] [address] Performed By: #### 2 4344-4 ####[facility] LABCLIA [id number] [place] [address] [place] Potassium [Moles/Vol] 4.8 mmol/L Normal 3.5-5.0 [facility] Comment on above: Order Comment: Speci men Type: VENOUS BLOOD SPECIMENOrdering Facility: [facility] Address: [address] [place] [address] Performed By: #### 2 4344-4 ####[facility] LABCLIA [id number] [place] [address] [place] Sodium [Moles/Vol] 133 mmol/L Low 136-144 [facility] Comment on above: Order Comment: Speci men Type: VENOUS BLOOD SPECIMENOrdering Facility: [facility] Address: [address] [place] [address] Performed By: #### 2 4344-4 ####[facility] LABCLIA [id number] [place] [address] [place] Base excess Calc (BldV) [Moles/Vol] 2 mmol/L Normal 0-2 [facility] Comment on above: Order Comment: Speci men Type: VENOUS BLOOD SPECIMENOrdering Facility: [facility] Address: [address] [place] [address] Performed By: #### 2 4344-4 ####[facility] LABIA [id number] [place] [address] [place] Body temperature 97.34 [degF] Normal [facility] Comment on above: Order Comment: Speci men Type: VENOUS BLOOD SPECIMENOrdering Facility: [facility] Address: [address] [place] [address] Performed By: #### 2 4344-4 ####[facility] LABCLIA [id number] [place] [address] [place] Calcium.ionized (Bld) [Mass/Vol] 1.19 mmol/L Normal 1.08-1.30 [facility] Comment on above: Order Comment: Speci men Type: VENOUS BLOOD SPECIMENOrdering Facility: [facility] Address: [address] [place] [address] Performed By: #### 2 4344-4 ####[facility] LABCLIA [id number] [place] [address] [place] Calcium.ionized adjusted to pH 7.4 (BldA) [Moles/Vol] 1.16 mmol/L Normal 1.08-1.30 [facility] Comment on above: Order Comment: Speci men Type: VENOUS BLOOD SPECIMENOrdering Facility: [facility] Address: [address] [place] [address] Performed By: #### 2 4344-4 ####[facility] LABIA [id number] [place] [address] [place] Carboxyhemoglobin (BldV) [Mass fraction] 0.5 % Normal 0.0-2.0 [facility] Comment on above: Order Comment: Speci men Type: VENOUS BLOOD SPECIMENOrdering Facility: [facility] Address: [address] [place] [address] Result Comment: Carb oxyhemoglobin Reference Range for Smokers: 2.0-8.0% Performed By: #### 2 4344-4 ####[facility] LABIA [id number] [place] [address] [place] CO2 (BldV) [Partial pressure] 53 mm[Hg] Normal 42-55 [facility] Comment on above: Order Comment: Speci men Type: VENOUS BLOOD SPECIMENOrdering Facility: [facility] Address: [address] [place] [address] Performed By: #### 2 4344-4 ####[facility] LABCLIA [id number] [place] [address] [place] CO2 adjusted to patient's actual temperature (BldV) [Partial pressure] 51 mmHg Normal 42-55 [facility] Comment on above: Order Comment: Speci men Type: VENOUS BLOOD SPECIMENOrdering Facility: [facility] Address: [address] [place] [address] Performed By: #### 2 4344-4 ####[facility] LABIA [id number] [place] [address] [place] Glucose [Mass/Vol] 136 mg/dL High 60-105 [facility] Comment on above: Order Comment: Speci men Type: VENOUS BLOOD SPECIMENOrdering Facility: [facility] Address: [address] [place] [address] Performed By: #### 2 4344-4 ####[facility] LABCLIA [id number] [place] [address] [place] HCO3 (Bld) [Moles/Vol] 28 mmol/L Normal 24-28 [facility] Comment on above: Order Comment: Speci men Type: VENOUS BLOOD SPECIMENOrdering Facility: [facility] Address: [address] [place] [address] Performed By: #### 2 4344-4 ####[facility] LABCLIA [id number] [place] [address] [place] Hematocrit (Bld) [Volume fraction] 28.4 % Low 39.0-51.0 [facility] Comment on above: Order Comment: Speci men Type: VENOUS BLOOD SPECIMENOrdering Facility: [facility] Address: [address] [place] [address] Performed By: #### 2 4344-4 ####[facility] LABCLIA [id number] [place] [address] [place] Hemoglobin (Bld) [Mass/Vol] 9.2 g/dL Low 13.0-17.0 [facility] Comment on above: Order Comment: Speci men Type: VENOUS BLOOD SPECIMENOrdering Facility: [facility] Address: [address] [place] [address] Performed By: #### 2 4344-4 ####[facility] LABCLIA [id number] [place] [address] [place] Lactate [Moles/Vol] 1.4 mmol/L Normal 0.5-2.2 [facility] Comment on above: Order Comment: Speci men Type: VENOUS BLOOD SPECIMENOrdering Facility: [facility] Address: [address] [id number] Performed By: #### 2 4344-4 ####[facility] LABCLIA [id number] [place] [id number] [place] Methemoglobin (Bld) [Mass fraction] 2.0 % High 0.0-1.5 [facility] Comment on above: Order Comment: Speci men Type: VENOUS BLOOD SPECIMENOrdering Facility: [facility] Address: [address] [place] [id number] Performed By: #### 2 4344-4 ####[facility] LABCLIA [id number] [place] [address] [place] O2 THERAPY NC = Nasal Cannula Normal [facility] Comment on above: Order Comment: Speci men Type: VENOUS BLOOD SPECIMENOrdering Facility: [facility] Address: [address] [place], [place] [address] Performed By: #### 2 4344-4 ####[facility] LABCLIA [id number] [place] [address] [place] Oxygen (BldV) [Partial pressure] 44 mm[Hg] Normal 35-45 [facility] Comment on above: Order Comment: Speci men Type: VENOUS BLOOD SPECIMENOrdering Facility: [facility] Address: [address] [id number] Performed By: #### 2 4344-4 ####[facility] LABCLIA [id number] [place] [id number] [place] Oxygen adjusted to patient's actual temperature (BldV) [Partial pressure] 42 mmHg Normal 35-45 [facility] Comment on above: Order Comment: Speci men Type: VENOUS BLOOD SPECIMENOrdering Facility: [facility] Address: [address] [place], [place] [phone] Performed By: #### 2 4344-4 ####[facility] LABCLIA [id number] [address] [address] [place] Oxygen saturation in Venous blood 75 % Normal 60-85 [facility] Comment on above: Order Comment: Speci men Type: VENOUS BLOOD SPECIMENOrdering Facility: [facility] Address: [address] [place], [place] [id number] Performed By: #### 2 4344-4 ####[facility] LABCLIA [id number] [address] [address] [place] Oxyhemoglobin (BldV) [Mass fraction] 73 % Normal 60-85 [facility] Comment on above: Order Comment: Speci men Type: VENOUS BLOOD SPECIMENOrdering Facility: [facility] Address: [address] [place] [address] Performed By: #### 2 4344-4 ####[facility] LABCLIA [id number] [place] [address] [place] pH (BldV) 7.34 [pH] Normal 7.32-7.42 [facility] Comment on above: Order Comment: Speci men Type: VENOUS BLOOD SPECIMENOrdering Facility: [facility] Address: [address] [place] [address] Performed By: #### 2 4344-4 ####[facility] LABCLIA [id number] [place] [address] [place] pH adjusted to patient's actual temperature (BldV) 7.35 Normal 7.32-7.42 [facility] Comment on above: Order Comment: Speci men Type: VENOUS BLOOD SPECIMENOrdering Facility: [facility] Address: [address] [place] [address] Performed By: #### 2 4344-4 ####[facility] LABCLIA [id number] [place] [address] [place] Potassium [Moles/Vol] 4.6 mmol/L Normal 3.5-5.0 [facility] Comment on above: Order Comment: Speci men Type: VENOUS BLOOD SPECIMENOrdering Facility: [facility] Address: [address] [place] [address] Performed By: #### 2 4344-4 ####[facility] LABCLIA [id number] [place] [address] [place] Sodium [Moles/Vol] 132 mmol/L Low 136-144 [facility] Comment on above: Order Comment: Speci men Type: VENOUS BLOOD SPECIMENOrdering Facility: [facility] Address: [address] [place] [address] Performed By: #### 2 4344-4 ####[facility] LABCLIA [id number] [place] [address] [place] Base excess Calc (BldV) [Moles/Vol] 3 mmol/L High 0-2 [facility] Comment on above: Order Comment: Speci men Type: VENOUS BLOOD SPECIMENOrdering Facility: [facility] Address: [address] [place] [address] Performed By: #### 2 4344-4 ####[facility] LABCLIA [id number] [place] [address] [place] Body temperature 97.52 [degF] Normal [facility] Comment on above: Order Comment: Speci men Type: VENOUS BLOOD SPECIMENOrdering Facility: [facility] Address: [address] [place] [address] Performed By: #### 2 4344-4 ####[facility] LABCLIA [id number] [place] [address] [place] Calcium.ionized (Bld) [Mass/Vol] 1.19 mmol/L Normal 1.08-1.30 [facility] Comment on above: Order Comment: Speci men Type: VENOUS BLOOD SPECIMENOrdering Facility: [facility] Address: [address] [place] [address] Performed By: #### 2 4344-4 ####[facility] LABCLIA [id number] [place] [address] [place] Calcium.ionized adjusted to pH 7.4 (BldA) [Moles/Vol] 1.15 mmol/L Normal 1.08-1.30 [facility] Comment on above: Order Comment: Speci men Type: VENOUS BLOOD SPECIMENOrdering Facility: [facility] Address: [address] [place] [address] Performed By: #### 2 4344-4 ####[facility] LABCLIA [id number] [place] [address] [place] Carboxyhemoglobin (BldV) [Mass fraction] 0.9 % Normal 0.0-2.0 [facility] Comment on above: Order Comment: Speci men Type: VENOUS BLOOD SPECIMENOrdering Facility: [facility] Address: [address] [place] [address] Result Comment: Carb oxyhemoglobin Reference Range for Smokers: 2.0-8.0% Performed By: #### 2 4344-4 ####[facility] LABCLIA [id number] [place] [address] [place] CO2 (BldV) [Partial pressure] 56 mm[Hg] High 42-55 [facility] Comment on above: Order Comment: Speci men Type: VENOUS BLOOD SPECIMENOrdering Facility: [facility] Address: [address] [place] [address] Performed By: #### 2 4344-4 ####[facility] LABCLIA [id number] [place] [address] [place] CO2 adjusted to patient's actual temperature (BldV) [Partial pressure] 55 mmHg Normal 42-55 [facility] Comment on above: Order Comment: Speci men Type: VENOUS BLOOD SPECIMENOrdering Facility: [facility] Address: [address] [place] [address] Performed By: #### 2 4344-4 ####[facility] LABCLIA [id number] [place] [address] [place] Glucose [Mass/Vol] 147 mg/dL High 60-105 [facility] Comment on above: Order Comment: Speci men Type: VENOUS BLOOD SPECIMENOrdering Facility: [facility] Address: [address] [place] [address] Performed By: #### 2 4344-4 ####[facility] LABCLIA [id number] [place] [address] [place] HCO3 (Bld) [Moles/Vol] 29 mmol/L High 24-28 [facility] Comment on above: Order Comment: Speci men Type: VENOUS BLOOD SPECIMENOrdering Facility: [facility] Address: [address] [place] [address] Performed By: #### 2 4344-4 ####[facility] LABCLIA [id number] [place] [address] [place] Hematocrit (Bld) [Volume fraction] 28.1 % Low 39.0-51.0 [facility] Comment on above: Order Comment: Speci men Type: VENOUS BLOOD SPECIMENOrdering Facility: [facility] Address: [address] [place] [address] Performed By: #### 2 4344-4 ####[facility] LABCLIA [id number] [place] [address] [place] Hemoglobin (Bld) [Mass/Vol] 9.1 g/dL Low 13.0-17.0 [facility] Comment on above: Order Comment: Speci men Type: VENOUS BLOOD SPECIMENOrdering Facility: [facility] Address: [address] [place] [address] Performed By: #### 2 4344-4 ####[facility] LABCLIA [id number] [place] [address] [place] Lactate [Moles/Vol] 1.7 mmol/L Normal 0.5-2.2 [facility] Comment on above: Order Comment: Speci men Type: VENOUS BLOOD SPECIMENOrdering Facility: [facility] Address: [address] [place] [id number] Performed By: #### 2 4344-4 ####[facility] LABCLIA [id number] [address] [address] [place] LITERS 1 Liters/min Normal [facility] Comment on above: Order Comment: Speci men Type: VENOUS BLOOD SPECIMENOrdering Facility: [facility] Address: [address] [id number] Performed By: #### 2 4344-4 ####[facility] LABCLIA [id number] [place] [address] [place] Methemoglobin (Bld) [Mass fraction] 1.1 % Normal 0.0-1.5 [facility] Comment on above: Order Comment: Speci men Type: VENOUS BLOOD SPECIMENOrdering Facility: [facility] Address: [address] [place], [place] [address] Performed By: #### 2 4344-4 ####[facility] LABIA [id number] [place] [address] [place] O2 THERAPY NC = Nasal Cannula Normal [facility] Comment on above: Order Comment: Speci men Type: VENOUS BLOOD SPECIMENOrdering Facility: [facility] Address: [address] [place], [place] [address] Performed By: #### 2 4344-4 ####[facility] LABCLIA [id number] [address] [address] [place] Oxygen (BldV) [Partial pressure] 42 mm[Hg] Normal 35-45 [facility] Comment on above: Order Comment: Speci men Type: VENOUS BLOOD SPECIMENOrdering Facility: [facility] Address: [address] [id number] Performed By: #### 2 4344-4 ####[facility] LABCLIA [id number] [address] [address] [place] Oxygen adjusted to patient's actual temperature (BldV) [Partial pressure] 41 mmHg Normal 35-45 [facility] Comment on above: Order Comment: Speci men Type: VENOUS BLOOD SPECIMENOrdering Facility: [facility] Address: [address] [place], [place] [address] Performed By: #### 2 4344-4 ####[facility] LABCLIA [id number] [place] [address] [place] Oxygen saturation in Venous blood 76 % Normal 60-85 [facility] Comment on above: Order Comment: Speci men Type: VENOUS BLOOD SPECIMENOrdering Facility: [facility] Address: [address] [place] [address] Performed By: #### 2 4344-4 ####[facility] LABCLIA [id number] [place] [address] [place] Oxyhemoglobin (BldV) [Mass fraction] 74 % Normal 60-85 [facility] Comment on above: Order Comment: Speci men Type: VENOUS BLOOD SPECIMENOrdering Facility: [facility] Address: [address] [place], [place] [address] Performed By: #### 2 4344-4 ####[facility] LABCLIA [id number] [place] [address] [place] pH (BldV) 7.33 [pH] Normal 7.32-7.42 [facility] Comment on above: Order Comment: Speci men Type: VENOUS BLOOD SPECIMENOrdering Facility: [facility] Address: [address] [place], [place] [address] Performed By: #### 2 4344-4 ####[facility] LABCLIA [id number] [place] [address] [place] pH adjusted to patient's actual temperature (BldV) 7.34 Normal 7.32-7.42 [facility] Comment on above: Order Comment: Speci men Type: VENOUS BLOOD SPECIMENOrdering Facility: [facility] Address: [address] [place] [address] Performed By: #### 2 4344-4 ####[facility] LABCLIA [id number] [place] [address] [place] Potassium [Moles/Vol] 4.5 mmol/L Normal 3.5-5.0 [facility] Comment on above: Order Comment: Speci men Type: VENOUS BLOOD SPECIMENOrdering Facility: [facility] Address: [address] [place] [address] Performed By: #### 2 4344-4 ####[facility] LABIA [id number] [place] [address] [place] Sodium [Moles/Vol] 133 mmol/L Low 136-144 [facility] Comment on above: Order Comment: Speci men Type: VENOUS BLOOD SPECIMENOrdering Facility: [facility] Address: [address] [place] [address] Performed By: #### 2 4344-4 ####[facility] LABCLIA [id number] [place] [address] [place] Base excess Calc (BldV) [Moles/Vol] 2 mmol/L Normal 0-2 [facility] Comment on above: Order Comment: Speci men Type: VENOUS BLOOD SPECIMENOrdering Facility: [facility] Address: [address] [place] [address] Performed By: #### 2 4344-4 ####[facility] LABCLIA [id number] [place] [address] [place] Calcium.ionized (Bld) [Mass/Vol] 1.18 mmol/L Normal 1.08-1.30 [facility] Comment on above: Order Comment: Speci men Type: VENOUS BLOOD SPECIMENOrdering Facility: [facility] Address: [address] [place] [address] Performed By: #### 2 4344-4 ####[facility] LABCLIA [id number] [place] [address] [place] Calcium.ionized adjusted to pH 7.4 (BldA) [Moles/Vol] 1.13 mmol/L Normal 1.08-1.30 [facility] Comment on above: Order Comment: Speci men Type: VENOUS BLOOD SPECIMENOrdering Facility: [facility] Address: [address] [place] [address] Performed By: #### 2 4344-4 ####[facility] LABIA [id number] [place] [address] [place] Carboxyhemoglobin (BldV) [Mass fraction] 1.6 % Normal 0.0-2.0 [facility] Comment on above: Order Comment: Speci men Type: VENOUS BLOOD SPECIMENOrdering Facility: [facility] Address: [address] [place] [address] Result Comment: Carb oxyhemoglobin Reference Range for Smokers: 2.0-8.0% Performed By: #### 2 4344-4 ####[facility] LABIA [id number] [place] [address] [place] CO2 (BldV) [Partial pressure] 55 mm[Hg] Normal 42-55 [facility] Comment on above: Order Comment: Speci men Type: VENOUS BLOOD SPECIMENOrdering Facility: [facility] Address: [address] [place] [address] Performed By: #### 2 4344-4 ####[facility] LABIA [id number] [place] [address] [place] Glucose [Mass/Vol] 145 mg/dL High 60-105 [facility] Comment on above: Order Comment: Speci men Type: VENOUS BLOOD SPECIMENOrdering Facility: [facility] Address: [address] [place] [address] Performed By: #### 2 4344-4 ####[facility] LABIA [id number] [place] [address] [place] HCO3 (Bld) [Moles/Vol] 28 mmol/L Normal 24-28 [facility] Comment on above: Order Comment: Speci men Type: VENOUS BLOOD SPECIMENOrdering Facility: [facility] Address: [address] [place] [address] Performed By: #### 2 4344-4 ####[facility] LABCLIA [id number] [place] [address] [place] Hematocrit (Bld) [Volume fraction] 28.7 % Low 39.0-51.0 [facility] Comment on above: Order Comment: Speci men Type: VENOUS BLOOD SPECIMENOrdering Facility: [facility] Address: [address] [place] [address] Performed By: #### 2 4344-4 ####[facility] LABCLIA [id number] [place] [address] [place] Hemoglobin (Bld) [Mass/Vol] 9.2 g/dL Low 13.0-17.0 [facility] Comment on above: Order Comment: Speci men Type: VENOUS BLOOD SPECIMENOrdering Facility: [facility] Address: [address] [place] [address] Performed By: #### 2 4344-4 ####[facility] LABIA [id number] [place] [address] [place] Lactate [Moles/Vol] 2.0 mmol/L Normal 0.5-2.2 [facility] Comment on above: Order Comment: Speci men Type: VENOUS BLOOD SPECIMENOrdering Facility: [facility] Address: [address] [place] [address] Performed By: #### 2 4344-4 ####[facility] LABCLIA [id number] [place] [address] [place] Methemoglobin (Bld) [Mass fraction] 2.0 % High 0.0-1.5 [facility] Comment on above: Order Comment: Speci men Type: VENOUS BLOOD SPECIMENOrdering Facility: [facility] Address: [address] [place] [address] Performed By: #### 2 4344-4 ####[facility] LABCLIA [id number] [address] [address] [place] Oxygen (BldV) [Partial pressure] 48 mm[Hg] High 35-45 [facility] Comment on above: Order Comment: Speci men Type: VENOUS BLOOD SPECIMENOrdering Facility: [facility] Address: [address] [place], [place] [address] Performed By: #### 2 4344-4 ####[facility] LABCLIA [id number] [address] [address] [place] Oxygen saturation in Venous blood 85 % Normal 60-85 [facility] Comment on above: Order Comment: Speci men Type: VENOUS BLOOD SPECIMENOrdering Facility: [facility] Address: [address] [place], [place] [id number] Performed By: #### 2 4344-4 ####[facility] LABIA [id number] [place] [id number] [place] Oxyhemoglobin (BldV) [Mass fraction] 82 % Normal 60-85 [facility] Comment on above: Order Comment: Speci men Type: VENOUS BLOOD SPECIMENOrdering Facility: [facility] Address: [address] [place] [address] Performed By: #### 2 4344-4 ####[facility] LABCLIA [id number] [address] [address] [place] pH (BldV) 7.32 [pH] Normal 7.32-7.42 [facility] Comment on above: Order Comment: Speci men Type: VENOUS BLOOD SPECIMENOrdering Facility: [facility] Address: [address] [place] [address] Performed By: #### 2 4344-4 ####[facility] LABCLIA [id number] [address] [address] [place] Potassium [Moles/Vol] 4.1 mmol/L Normal 3.5-5.0 [facility] Comment on above: Order Comment: Speci men Type: VENOUS BLOOD SPECIMENOrdering Facility: [facility] Address: [address] [place] [address] Performed By: #### 2 4344-4 ####[facility] LABCLIA [id number] [place] [address] [place] Sodium [Moles/Vol] 133 mmol/L Low 136-144 [facility] Comment on above: Order Comment: Speci men Type: VENOUS BLOOD SPECIMENOrdering Facility: [facility] Address: [address] [place] [address] Performed By: #### 2 4344-4 ####[facility] LABCLIA [id number] [place] [address] [place] BASE DEFICIT, VENOUS -1 mmol/L Normal -2-0 [facility] Comment on above: Order Comment: Speci men Type: VENOUS BLOOD SPECIMENOrdering Facility: [facility] Address: [address] [place] [address] Performed By: #### 2 4344-4 ####[facility] LABCLIA [id number] [place] [address] [place] Calcium.ionized (Bld) [Mass/Vol] 1.12 mmol/L Normal 1.08-1.30 [facility] Comment on above: Order Comment: Speci men Type: VENOUS BLOOD SPECIMENOrdering Facility: [facility] Address: [address] [place] [address] Performed By: #### 2 4344-4 ####[facility] LABCLIA [id number] [place] [address] [place] Calcium.ionized adjusted to pH 7.4 (BldA) [Moles/Vol] 1.07 mmol/L Low 1.08-1.30 [facility] Comment on above: Order Comment: Speci men Type: VENOUS BLOOD SPECIMENOrdering Facility: [facility] Address: [address] [place] [address] Performed By: #### 2 4344-4 ####[facility] LABCLIA [id number] [address] [address] [place] Carboxyhemoglobin (BldV) [Mass fraction] 0.9 % Normal 0.0-2.0 [facility] Comment on above: Order Comment: Speci men Type: VENOUS BLOOD SPECIMENOrdering Facility: [facility] Address: [address] [place] [address] Result Comment: Carb oxyhemoglobin Reference Range for Smokers: 2.0-8.0% Performed By: #### 2 4344-4 ####[facility] LABCLIA [id number] [place] [address] [place] CO2 (BldV) [Partial pressure] 49 mm[Hg] Normal 42-55 [facility] Comment on above: Order Comment: Speci men Type: VENOUS BLOOD SPECIMENOrdering Facility: [facility] Address: [address] [place] [address] Performed By: #### 2 4344-4 ####[facility] LABCLIA [id number] [place] [address] [place] Glucose [Mass/Vol] 123 mg/dL High 60-105 [facility] Comment on above: Order Comment: Speci men Type: VENOUS BLOOD SPECIMENOrdering Facility: [facility] Address: [address] [place] [address] Performed By: #### 2 4344-4 ####[facility] LABCLIA [id number] [place] [address] [place] Hematocrit (Bld) [Volume fraction] 28.1 % Low 39.0-51.0 [facility] Comment on above: Order Comment: Speci men Type: VENOUS BLOOD SPECIMENOrdering Facility: [facility] Address: [address] [place] [address] Performed By: #### 2 4344-4 ####[facility] LABCLIA [id number] [place] [address] [place] Hemoglobin (Bld) [Mass/Vol] 9.0 g/dL Low 13.0-17.0 [facility] Comment on above: Order Comment: Speci men Type: VENOUS BLOOD SPECIMENOrdering Facility: [facility] Address: [address] [place] [address] Performed By: #### 2 4344-4 ####[facility] LABCLIA [id number] [place] [address] [place] Lactate [Moles/Vol] 2.9 mmol/L High 0.5-2.2 [facility] Comment on above: Order Comment: Speci men Type: VENOUS BLOOD SPECIMENOrdering Facility: [facility] Address: [address] [place] [address] Performed By: #### 2 4344-4 ####[facility] LABIA [id number] [place] [address] [place] Methemoglobin (Bld) [Mass fraction] 1.7 % High 0.0-1.5 [facility] Comment on above: Order Comment: Speci men Type: VENOUS BLOOD SPECIMENOrdering Facility: [facility] Address: [address] [place] [address] Performed By: #### 2 4344-4 ####[facility] LABCLIA [id number] [place] [address] [place] Oxygen (BldV) [Partial pressure] 45 mm[Hg] Normal 35-45 [facility] Comment on above: Order Comment: Speci men Type: VENOUS BLOOD SPECIMENOrdering Facility: [facility] Address: [address] [place] [address] Performed By: #### 2 4344-4 ####[facility] LABCLIA [id number] [address] [address] [place] Oxygen saturation in Venous blood 75 % Normal 60-85 [facility] Comment on above: Order Comment: Speci men Type: VENOUS BLOOD SPECIMENOrdering Facility: [facility] Address: [address] [place] [address] Performed By: #### 2 4344-4 ####[facility] LABCLIA [id number] [address] [address] [place] Oxyhemoglobin (BldV) [Mass fraction] 73 % Normal 60-85 [facility] Comment on above: Order Comment: Speci men Type: VENOUS BLOOD SPECIMENOrdering Facility: [facility] Address: [address] [place] [address] Performed By: #### 2 4344-4 ####[facility] LABCLIA [id number] [place] [address] [place] pH (BldV) 7.32 [pH] Normal 7.32-7.42 [facility] Comment on above: Order Comment: Speci men Type: VENOUS BLOOD SPECIMENOrdering Facility: [facility] Address: [address] [place] [address] Performed By: #### 2 4344-4 ####[facility] LABCLIA [id number] [address] [address] [place] Potassium [Moles/Vol] 3.8 mmol/L Normal 3.5-5.0 [facility] Comment on above: Order Comment: Speci men Type: VENOUS BLOOD SPECIMENOrdering Facility: [facility] Address: [address] [place] [address] Performed By: #### 2 4344-4 ####[facility] LABCLIA [id number] [place] [id number] [place] Sodium [Moles/Vol] 134 mmol/L Low 136-144 [facility] Comment on above: Order Comment: Speci men Type: VENOUS BLOOD SPECIMENOrdering Facility: [facility] Address: [address] [place] [address] Performed By: #### 2 4344-4 ####[facility] LABCLIA [id number] [place] [address] [place] Base excess Calc (BldV) [Moles/Vol] 0 mmol/L Normal 0-2 [facility] Comment on above: Order Comment: Speci men Type: VENOUS BLOOD SPECIMENOrdering Facility: [facility] Address: [address] [place] [address] Performed By: #### 2 4344-4 ####[facility] LABIA [id number] [place] [address] [place] Body temperature 98.6 [degF] Normal [facility] Comment on above: Order Comment: Speci men Type: VENOUS BLOOD SPECIMENOrdering Facility: [facility] Address: [address] [place] [address] Performed By: #### 2 4344-4 ####[facility] LABIA [id number] [place] [address] [place] Calcium.ionized (Bld) [Mass/Vol] 1.17 mmol/L Normal 1.08-1.30 [facility] Comment on above: Order Comment: Speci men Type: VENOUS BLOOD SPECIMENOrdering Facility: [facility] Address: [address] [place] [address] Performed By: #### 2 4344-4 ####[facility] LABIA [id number] [place] [address] [place] Calcium.ionized adjusted to pH 7.4 (BldA) [Moles/Vol] 1.14 mmol/L Normal 1.08-1.30 [facility] Comment on above: Order Comment: Speci men Type: VENOUS BLOOD SPECIMENOrdering Facility: [facility] Address: [address] [place] [address] Performed By: #### 2 4344-4 ####[facility] LABCLIA [id number] [place] [address] [place] Carboxyhemoglobin (BldV) [Mass fraction] 0.6 % Normal 0.0-2.0 [facility] Comment on above: Order Comment: Speci men Type: VENOUS BLOOD SPECIMENOrdering Facility: [facility] Address: [address] [place] [address] Result Comment: Carb oxyhemoglobin Reference Range for Smokers: 2.0-8.0% Performed By: #### 2 4344-4 ####[facility] LABCLIA [id number] [place] [address] [place] CO2 (BldV) [Partial pressure] 49 mm[Hg] Normal 42-55 [facility] Comment on above: Order Comment: Speci men Type: VENOUS BLOOD SPECIMENOrdering Facility: [facility] Address: [address] [place] [address] Performed By: #### 2 4344-4 ####[facility] LABIA [id number] [place] [address] [place] Glucose [Mass/Vol] 145 mg/dL High 60-105 [facility] Comment on above: Order Comment: Speci men Type: VENOUS BLOOD SPECIMENOrdering Facility: [facility] Address: [address] [place] [address] Performed By: #### 2 4344-4 ####[facility] LABCLIA [id number] [place] [address] [place] HCO3 (Bld) [Moles/Vol] 26 mmol/L Normal 24-28 [facility] Comment on above: Order Comment: Speci men Type: VENOUS BLOOD SPECIMENOrdering Facility: [facility] Address: [address] [place] [address] Performed By: #### 2 4344-4 ####[facility] LABIA [id number] [place] [address] [place] Hematocrit (Bld) [Volume fraction] 29.1 % Low 39.0-51.0 [facility] Comment on above: Order Comment: Speci men Type: VENOUS BLOOD SPECIMENOrdering Facility: [facility] Address: [address] [place] [address] Performed By: #### 2 4344-4 ####[facility] LABCLIA [id number] [place] [address] [place] Hemoglobin (Bld) [Mass/Vol] 9.4 g/dL Low 13.0-17.0 [facility] Comment on above: Order Comment: Speci men Type: VENOUS BLOOD SPECIMENOrdering Facility: [facility] Address: [address] [place] [address] Performed By: #### 2 4344-4 ####[facility] LABCLIA [id number] [place] [address] [place] Lactate [Moles/Vol] 3.2 mmol/L High 0.5-2.2 [facility] Comment on above: Order Comment: Speci men Type: VENOUS BLOOD SPECIMENOrdering Facility: [facility] Address: [address] [place] [address] Performed By: #### 2 4344-4 ####[facility] LABCLIA [id number] [place] [address] [place] Methemoglobin (Bld) [Mass fraction] 2.3 % High 0.0-1.5 [facility] Comment on above: Order Comment: Speci men Type: VENOUS BLOOD SPECIMENOrdering Facility: [facility] Address: [address] [place] [address] Performed By: #### 2 4344-4 ####[facility] LABIA [id number] [place] [address] [place] O2 THERAPY Ventilator Normal [facility] Comment on above: Order Comment: Speci men Type: VENOUS BLOOD SPECIMENOrdering Facility: [facility] Address: [address] [place] [address] [place] [address] Performed By: #### 2 4344-4 ####[facility] LABCLIA [id number] [address] [address] [place] Oxygen (BldV) [Partial pressure] 40 mm[Hg] Normal 35-45 [facility] Comment on above: Order Comment: Speci men Type: VENOUS BLOOD SPECIMENOrdering Facility: [facility] Address: [address] [place] [address] Performed By: #### 2 4344-4 ####[facility] LABIA [id number] [place] [address] [place] Oxygen saturation in Venous blood 70 % Normal 60-85 [facility] Comment on above: Order Comment: Speci men Type: VENOUS BLOOD SPECIMENOrdering Facility: [facility] Address: [address] [place] [address] Performed By: #### 2 4344-4 ####[facility] LABIA [id number] [place] [address] [place] Oxyhemoglobin (BldV) [Mass fraction] 68 % Normal 60-85 [facility] Comment on above: Order Comment: Speci men Type: VENOUS BLOOD SPECIMENOrdering Facility: [facility] Address: [address] [place], [place] [address] Performed By: #### 2 4344-4 ####[facility] LABIA [id number] [place] [address] [place] pH (BldV) 7.34 [pH] Normal 7.32-7.42 [facility] Comment on above: Order Comment: Speci men Type: VENOUS BLOOD SPECIMENOrdering Facility: [facility] Address: [address] [place] [id number] Performed By: #### 2 4344-4 ####[facility] LABIA [id number] [place] [id number] [place] Potassium [Moles/Vol] 3.9 mmol/L Normal 3.5-5.0 [facility] Comment on above: Order Comment: Speci men Type: VENOUS BLOOD SPECIMENOrdering Facility: [facility] Address: [address] [place] [address] Performed By: #### 2 4344-4 ####[facility] LABCLIA [id number] [place] [address] [place] Sodium [Moles/Vol] 133 mmol/L Low 136-144 [facility] Comment on above: Order Comment: Speci men Type: VENOUS BLOOD SPECIMENOrdering Facility: [facility] Address: [address] [place] [address] Performed By: #### 2 4344-4 ####[facility] LABCLIA [id number] [place] [address] [place] HIGH SENSITIVITY TROPONIN To n 09-20-2023 Troponin T.cardiac High sensitivity method [Mass/Vol] 267 ng/L High <12 [facility] Comment on above: Order Comment: Speci men Type: BLOOD SPECIMENOrdering Facility: [facility] Address: [address] [place] [address] Performed By: #### H STNT, 77268-5 ####[facility] LABCLIA [id number] [place] [address] [place] Hematocrit Auto (Bld) [Volum e fraction]on 09-20-2023 Hematocrit (Bld) [Volume fraction] 25.6 % Low 39.0-51.0 [facility] Hemoglobin [Mass/volume] in Bloodon 09-20-2023 Hemoglobin (Bld) [Mass/Vol] 8.2 g/dL Low 13.0-17.0 [facility] Leukocytes [#/volume] correc leticia for nucleated erythrocytes in Blood by Automated counon 09-20-2023 WBC corrected for nucl RBC Auto (Bld) [#/Vol] 15.18 k/uL High 3.70-11.00 [facility] MCH Auto (RBC) [Entitic mass ]on 09-20-2023 MCH (RBC) [Entitic mass] 29.9 pg 26.0-34.0 [facility] MCHC Auto (RBC) [Mass/Vol]on 09-20-2023 MCHC (RBC) [Mass/Vol] 34.9 g/dL 30.5-36.0 [facility] MCV Auto (RBC) [Entitic vol] on 09-20-2023 MCV (RBC) [Entitic vol] 85.9 fL 80.0-100.0 [facility] No Panel Informationon 09-19 2 mmol/L 0-2 [facility] 27 mmol/L High 22-26 [facility] 51 mm[Hg] 42-55 [facility] 1.3 % 0.0-2.0 [facility] 1.5 % 0.0-2.0 [facility] 181 mg/dL High 60-105 [facility] 2.0 % High 0.0-1.5 [facility] 98 % 95-98 [facility] 39 mm[Hg] 35-45 [facility] 69 % 60-85 [facility] 66 % 60-85 [facility] 7.35 7.32-7.42 [facility] 131 mmol/L Low 136-144 [facility] 3 mmol/L High 0-2 [facility] 114 mm Hg High 85-95 [facility] 5.0 mmol/L 3.5-5.0 [facility] 46 mm Hg 36-46 [facility] 28 mmol/L 24-28 [facility] 7.39 7.35-7.45 [facility] 1.4 mmol/L 0.5-2.2 [facility] 1.12 mmol/L 1.08-1.30 [facility] NC = Nasal Cannula [facility] 37.0 C [facility] 134 mm[Hg] High 85-95 [facility] 44 mm[Hg] 36-46 [facility] 7.39 7.35-7.45 [facility] 1 Liters/min [facility] 43 mm[Hg] 35-45 [facility] 7.35 7.32-7.42 [facility] 54 mm[Hg] 42-55 [facility] -1 mmol/L <2-0 [facility] 267 ng/L High <12 [facility] 19 U/L 10-54 [facility] 3.5 g/dL Low 3.9-4.9 [facility] 37 U/L 14-40 [facility] 1.2 mg/dL 0.2-1.3 [facility] 23 mmol/L 22-30 [facility] 100 mmol/L 98-107 [facility] 0.91 mg/dL 0.73-1.22 [facility] 18 mg/dL 9-24 [facility] 42 U/L 38-113 [facility] 8.6 mg/dL 8.5-10.2 [facility] 91 mL/min/1.73m??? >=60 [facility] Nucleated RBC Auto (Bld) [#/ Vol]on 09-20-2023 Nucleated RBC (Bld) [#/Vol] 10*3/uL <0.01 [facility] Platelet mean volume Auto (B ld) [Entitic vol]on 09-20-2023 Platelet mean volume (Bld) [Entitic vol] 10.9 fL 9.0-12.7 [facility] Platelets Auto (Bld) [#/Vol] on 09-20-2023 Platelets (Bld) [#/Vol] 134 10*3/uL Low 150-400 [facility] Protein [Mass/volume] in Ser um or Plasmaon 09-20-2023 Protein [Mass/Vol] 5.2 g/dL Low 6.3-8.0 [facility] RBC Auto (Bld) [#/Vol]on RBC (Bld) [#/Vol] 3.04 10*6/uL Low 4.20-6.00 [facility] Serum ionized calcium measur ement using ion specific electrode (mass/volume)on 09-20-2023 Calcium.ionized ISE [Mass/Vol] 1.15 mmol/L 1.08-1.30 [facility] Serum or plasma anion gap de terminationon 09-20-2023 Anion gap [Moles/Vol] 12 mmol/L 8-15 [facility] XR CHEST 1V FRONTAL PORTon 0 09-20-2023 XR CHEST 1V FRONTAL PORT Normal [facility] ANES POSTPROC EVALon 024 ANES POSTPROC EVAL Normal [facility] ANES PRE-OPon 09-19-2023 ANES PRE-OP Normal [facility] ARTERIAL BLOOD GASESon 09-18 Base excess Calc (Bld) [Moles/Vol] 2 mmol/L Normal 0-2 [facility] Comment on above: Order Comment: Speci men Type: ARTERIAL BLOOD SPECIMENOrdering Facility: [facility] Address: [address] [place] [address] Performed By: #### A LLBG ####[facility] LABCLIA [id number] [place] [address] [place] Body temperature 98.6 [degF] Normal [facility] Comment on above: Order Comment: Speci men Type: ARTERIAL BLOOD SPECIMENOrdering Facility: [facility] Address: [address] [place] [address] Performed By: #### A LLBG ####[facility] LABCLIA [id number] [place] [address] [place] Order Comment: Speci men Type: VENOUS BLOOD SPECIMENOrdering Facility: [facility] Address: [address] [place] [address] Performed By: #### 2 4344-4 ####[facility] LABCLIA [id number] [place] [address] [place] Calcium.ionized (Bld) [Mass/Vol] 1.16 mmol/L Normal 1.08-1.30 [facility] Comment on above: Order Comment: Speci men Type: ARTERIAL BLOOD SPECIMENOrdering Facility: [facility] Address: [address] [place] [address] Performed By: #### A LLBG ####[facility] LABIA [id number] [place] [address] [place] Calcium.ionized adjusted to pH 7.4 (BldA) [Moles/Vol] 1.16 mmol/L Normal 1.08-1.30 [facility] Comment on above: Order Comment: Speci men Type: ARTERIAL BLOOD SPECIMENOrdering Facility: [facility] Address: [address] [place] [address] Performed By: #### A LLBG ####[facility] [id number] [place] [address] [place] Carboxyhemoglobin (BldA) [Mass fraction] 1.1 % Normal 0.0-2.0 [facility] Comment on above: Order Comment: Speci men Type: ARTERIAL BLOOD SPECIMENOrdering Facility: [facility] Address: [address] [place] [address] Result Comment: Carb oxyhemoglobin Reference Range for Smokers: 2.0-8.0% Performed By: #### A LLBG ####[facility] LABIA [id number] [place] [address] [place] CO2 (Bld) [Partial pressure] 42 mm Hg Normal 36-46 [facility] Comment on above: Order Comment: Speci men Type: ARTERIAL BLOOD SPECIMENOrdering Facility: [facility] Address: [address] [place] [address] Performed By: #### A LLBG ####[facility] LABIA [id number] [place] [address] [place] Glucose [Mass/Vol] 199 mg/dL High 60-105 [facility] Comment on above: Order Comment: Speci men Type: ARTERIAL BLOOD SPECIMENOrdering Facility: [facility] Address: [address] [place] [address] Performed By: #### A LLBG ####[facility] LABIA [id number] [place] [address] [place] HCO3 (Bld) [Moles/Vol] 26 mmol/L Normal 22-26 [facility] Comment on above: Order Comment: Speci men Type: ARTERIAL BLOOD SPECIMENOrdering Facility: [facility] Address: [address] [place] [address] Performed By: #### A LLBG ####[facility] LABCLIA [id number] [place] [address] [place] Hematocrit (Bld) [Volume fraction] 30.9 % Low 39.0-51.0 [facility] Comment on above: Order Comment: Speci men Type: ARTERIAL BLOOD SPECIMENOrdering Facility: [facility] Address: [address] [place] [address] Performed By: #### A LLBG ####[facility] LABCLIA [id number] [place] [address] [place] Hemoglobin (Bld) [Mass/Vol] 10.0 g/dL Low 13.0-17.0 [facility] Comment on above: Order Comment: Speci men Type: ARTERIAL BLOOD SPECIMENOrdering Facility: [facility] Address: [address] [place] [address] Performed By: #### A LLBG ####[facility] LABCLIA [id number] [place] [address] [place] Lactate [Moles/Vol] 3.5 mmol/L High 0.5-2.2 [facility] Comment on above: Order Comment: Speci men Type: ARTERIAL BLOOD SPECIMENOrdering Facility: [facility] Address: [address] [place] [address] Performed By: #### A LLBG ####[facility] LABCLIA [id number] [place] [address] [place] Methemoglobin (Bld) [Mass fraction] 1.6 % High 0.0-1.5 [facility] Comment on above: Order Comment: Speci men Type: ARTERIAL BLOOD SPECIMENOrdering Facility: [facility] Address: [address] [id number] Performed By: #### A LLBG ####[facility] LABCLIA [id number] [address] [address] [place] O2 THERAPY Ventilator Normal [facility] Comment on above: Order Comment: Speci men Type: ARTERIAL BLOOD SPECIMENOrdering Facility: [facility] Address: [address] [place], [place] [id number] Performed By: #### A LLBG ####[facility] LABCLIA [id number] [place] [address] [place] Order Comment: Speci men Type: VENOUS BLOOD SPECIMENOrdering Facility: [facility] Address: [address] [place], [place] [address] Performed By: #### 2 4344-4 ####[facility] LABCLIA [id number] [place] [address] [place] Oxygen (Bld) [Partial pressure] 133 mm Hg High 85-95 [facility] Comment on above: Order Comment: Speci men Type: ARTERIAL BLOOD SPECIMENOrdering Facility: [facility] Address: [address] [place], [place] [id number] Performed By: #### A LLBG ####[facility] LABCLIA [id number] [place] [address] [place] Oxyhemoglobin (BldA) [Mass fraction] 95 % Normal 95-98 [facility] Comment on above: Order Comment: Speci men Type: ARTERIAL BLOOD SPECIMENOrdering Facility: [facility] Address: [address] [id number] Performed By: #### A LLBG ####[facility] LABCLIA [id number] [address] [address] [place] pH (Bld) 7.40 [pH] Normal 7.35-7.45 [facility] Comment on above: Order Comment: Speci men Type: ARTERIAL BLOOD SPECIMENOrdering Facility: [facility] Address: [address] [place] [address] Performed By: #### A LLBG ####[facility] LABCLIA [id number] [place] [address] [place] Potassium [Moles/Vol] 4.2 mmol/L Normal 3.5-5.0 [facility] Comment on above: Order Comment: Speci men Type: ARTERIAL BLOOD SPECIMENOrdering Facility: [facility] Address: [address] [place] [address] Performed By: #### A LLBG ####[facility] LABCLIA [id number] [place] [address] [place] Sodium [Moles/Vol] 131 mmol/L Low 136-144 [facility] Comment on above: Order Comment: Speci men Type: ARTERIAL BLOOD SPECIMENOrdering Facility: [facility] Address: [address] [place] [address] Performed By: #### A LLBG ####[facility] LABCLIA [id number] [place] [address] [place] Base excess Calc (Bld) [Moles/Vol] 1 mmol/L Normal 0-2 [facility] Comment on above: Order Comment: Speci men Type: ARTERIAL BLOOD SPECIMENOrdering Facility: [facility] Address: [address] [place] [address] Performed By: #### A LLBG ####[facility] LABCLIA [id number] [place] [address] [place] Calcium.ionized (Bld) [Mass/Vol] 1.22 mmol/L Normal 1.08-1.30 [facility] Comment on above: Order Comment: Speci men Type: ARTERIAL BLOOD SPECIMENOrdering Facility: [facility] Address: [address] [place] [address] Performed By: #### A LLBG ####[facility] LABCLIA [id number] [place] [address] [place] Carboxyhemoglobin (BldA) [Mass fraction] 0.7 % Normal 0.0-2.0 [facility] Comment on above: Order Comment: Speci men Type: ARTERIAL BLOOD SPECIMENOrdering Facility: [facility] Address: [address] [place] [address] Result Comment: Carb oxyhemoglobin Reference Range for Smokers: 2.0-8.0% Performed By: #### A LLBG ####[facility] LABIA [id number] [place] [address] [place] CO2 (Bld) [Partial pressure] 52 mm Hg High 36-46 [facility] Comment on above: Order Comment: Speci men Type: ARTERIAL BLOOD SPECIMENOrdering Facility: [facility] Address: [address] [place] [address] Performed By: #### A LLBG ####[facility] LABIA [id number] [place] [address] [place] Glucose [Mass/Vol] 208 mg/dL High 60-105 [facility] Comment on above: Order Comment: Speci men Type: ARTERIAL BLOOD SPECIMENOrdering Facility: [facility] Address: [address] [place] [address] Performed By: #### A LLBG ####[facility] LABCLIA [id number] [place] [address] [place] Hematocrit (Bld) [Volume fraction] 30.5 % Low 39.0-51.0 [facility] Comment on above: Order Comment: Speci men Type: ARTERIAL BLOOD SPECIMENOrdering Facility: [facility] Address: [address] [place] [address] Performed By: #### A LLBG ####[facility] LABIA [id number] [place] [address] [place] Hemoglobin (Bld) [Mass/Vol] 9.9 g/dL Low 13.0-17.0 [facility] Comment on above: Order Comment: Speci men Type: ARTERIAL BLOOD SPECIMENOrdering Facility: [facility] Address: [address] [place] [address] Performed By: #### A LLBG ####[facility] LABCLIA [id number] [place] [address] [place] Lactate [Moles/Vol] 2.6 mmol/L High 0.5-2.2 [facility] Comment on above: Order Comment: Speci men Type: ARTERIAL BLOOD SPECIMENOrdering Facility: [facility] Address: [address] [place] [address] Performed By: #### A LLBG ####[facility] LABCLIA [id number] [place] [address] [place] Oxygen (Bld) [Partial pressure] 164 mm Hg High 85-95 [facility] Comment on above: Order Comment: Speci men Type: ARTERIAL BLOOD SPECIMENOrdering Facility: [facility] Address: [address] [place] [address] Performed By: #### A LLBG ####[facility] LABCLIA [id number] [place] [address] [place] Oxyhemoglobin (BldA) [Mass fraction] 96 % Normal 95-98 [facility] Comment on above: Order Comment: Speci men Type: ARTERIAL BLOOD SPECIMENOrdering Facility: [facility] Address: [address] [place] [address] Performed By: #### A LLBG ####[facility] LABCLIA [id number] [place] [address] [place] pH (Bld) 7.33 [pH] Low 7.35-7.45 [facility] Comment on above: Order Comment: Speci men Type: ARTERIAL BLOOD SPECIMENOrdering Facility: [facility] Address: [address] [place] [address] Performed By: #### A LLBG ####[facility] LABCLIA [id number] [place] [address] [place] Potassium [Moles/Vol] 4.4 mmol/L Normal 3.5-5.0 [facility] Comment on above: Order Comment: Speci men Type: ARTERIAL BLOOD SPECIMENOrdering Facility: [facility] Address: [address] [place] [address] Performed By: #### A LLBG ####[facility] LABCLIA [id number] [place] [address] [place] Sodium [Moles/Vol] 132 mmol/L Low 136-144 [facility] Comment on above: Order Comment: Speci men Type: ARTERIAL BLOOD SPECIMENOrdering Facility: [facility] Address: [address] [place] [address] Performed By: #### A LLBG ####[facility] LABIA [id number] [place] [address] [place] Base excess Calc (Bld) [Moles/Vol] 2 mmol/L Normal 0-2 [facility] Comment on above: Order Comment: Speci men Type: ARTERIAL BLOOD SPECIMENOrdering Facility: [facility] Address: [address] [place] [address] Performed By: #### A LLBG ####[facility] LABIA [id number] [place] [address] [place] Calcium.ionized (Bld) [Mass/Vol] 1.23 mmol/L Normal 1.08-1.30 [facility] Comment on above: Order Comment: Speci men Type: ARTERIAL BLOOD SPECIMENOrdering Facility: [facility] Address: [address] [place] [address] Performed By: #### A LLBG ####[facility] LABIA [id number] [place] [address] [place] Calcium.ionized adjusted to pH 7.4 (BldA) [Moles/Vol] 1.20 mmol/L Normal 1.08-1.30 [facility] Comment on above: Order Comment: Speci men Type: ARTERIAL BLOOD SPECIMENOrdering Facility: [facility] Address: [address] [place] [address] Performed By: #### A LLBG ####[facility] LABCLIA [id number] [place] [address] [place] Carboxyhemoglobin (BldA) [Mass fraction] 0.5 % Normal 0.0-2.0 [facility] Comment on above: Order Comment: Speci men Type: ARTERIAL BLOOD SPECIMENOrdering Facility: [facility] Address: [address] [place] [address] Result Comment: Carb oxyhemoglobin Reference Range for Smokers: 2.0-8.0% Performed By: #### A LLBG ####[facility] LABCLIA [id number] [place] [address] [place] CO2 (Bld) [Partial pressure] 51 mm Hg High 36-46 [facility] Comment on above: Order Comment: Speci men Type: ARTERIAL BLOOD SPECIMENOrdering Facility: [facility] Address: [address] [place] [address] Performed By: #### A LLBG ####[facility] LABCLIA [id number] [place] [address] [place] Glucose [Mass/Vol] 210 mg/dL High 60-105 [facility] Comment on above: Order Comment: Speci men Type: ARTERIAL BLOOD SPECIMENOrdering Facility: [facility] Address: [address] [place] [address] Performed By: #### A LLBG ####[facility] LABCLIA [id number] [place] [address] [place] Hematocrit (Bld) [Volume fraction] 28.1 % Low 39.0-51.0 [facility] Comment on above: Order Comment: Speci men Type: ARTERIAL BLOOD SPECIMENOrdering Facility: [facility] Address: [address] [place] [address] Performed By: #### A LLBG ####[facility] LABCLIA [id number] [place] [address] [place] Hemoglobin (Bld) [Mass/Vol] 9.0 g/dL Low 13.0-17.0 [facility] Comment on above: Order Comment: Speci men Type: ARTERIAL BLOOD SPECIMENOrdering Facility: [facility] Address: [address] [place] [address] Performed By: #### A LLBG ####[facility] LABIA [id number] [place] [address] [place] Lactate [Moles/Vol] 2.2 mmol/L Normal 0.5-2.2 [facility] Comment on above: Order Comment: Speci men Type: ARTERIAL BLOOD SPECIMENOrdering Facility: [facility] Address: [address] [place] [address] Performed By: #### A LLBG ####[facility] LABCLIA [id number] [place] [address] [place] Oxygen (Bld) [Partial pressure] 167 mm Hg High 85-95 [facility] Comment on above: Order Comment: Speci men Type: ARTERIAL BLOOD SPECIMENOrdering Facility: [facility] Address: [address] [place] [address] Performed By: #### A LLBG ####[facility] LABCLIA [id number] [place] [address] [place] Oxyhemoglobin (BldA) [Mass fraction] 94 % Low 95-98 [facility] Comment on above: Order Comment: Speci men Type: ARTERIAL BLOOD SPECIMENOrdering Facility: [facility] Address: [address] [place] [address] Performed By: #### A LLBG ####[facility] LABCLIA [id number] [place] [address] [place] pH (Bld) 7.36 [pH] Normal 7.35-7.45 [facility] Comment on above: Order Comment: Speci men Type: ARTERIAL BLOOD SPECIMENOrdering Facility: [facility] Address: [address] [place] [address] Performed By: #### A LLBG ####[facility] LABCLIA [id number] [place] [address] [place] Potassium [Moles/Vol] 4.3 mmol/L Normal 3.5-5.0 [facility] Comment on above: Order Comment: Speci men Type: ARTERIAL BLOOD SPECIMENOrdering Facility: [facility] Address: [address] [place] [address] Performed By: #### A LLBG ####[facility] LABCLIA [id number] [place] [address] [place] Sodium [Moles/Vol] 133 mmol/L Low 136-144 [facility] Comment on above: Order Comment: Speci men Type: ARTERIAL BLOOD SPECIMENOrdering Facility: [facility] Address: [address] [place] [address] Performed By: #### A LLBG ####[facility] LABCLIA [id number] [place] [address] [place] Base excess Calc (Bld) [Moles/Vol] 3 mmol/L High 0-2 [facility] Comment on above: Order Comment: Speci men Type: ARTERIAL BLOOD SPECIMENOrdering Facility: [facility] Address: [address] [place] [address] Performed By: #### A LLBG ####[facility] LABCLIA [id number] [place] [address] [place] Body temperature 98.6 [degF] Normal [facility] Comment on above: Order Comment: Speci men Type: ARTERIAL BLOOD SPECIMENOrdering Facility: [facility] Address: [address] [place] [address] Performed By: #### A LLBG ####[facility] LABIA [id number] [place] [address] [place] Order Comment: Speci men Type: VENOUS BLOOD SPECIMENOrdering Facility: [facility] Address: [address] [place] [address] Performed By: #### 2 4344-4 ####[facility] LABIA [id number] [place] [address] [place] Calcium.ionized (Bld) [Mass/Vol] 1.20 mmol/L Normal 1.08-1.30 [facility] Comment on above: Order Comment: Speci men Type: ARTERIAL BLOOD SPECIMENOrdering Facility: [facility] Address: [address] [place] [address] Performed By: #### A LLBG ####[facility] LABIA [id number] [place] [address] [place] Calcium.ionized adjusted to pH 7.4 (BldA) [Moles/Vol] 1.19 mmol/L Normal 1.08-1.30 [facility] Comment on above: Order Comment: Speci men Type: ARTERIAL BLOOD SPECIMENOrdering Facility: [facility] Address: [address] [place] [address] Performed By: #### A LLBG ####[facility] LABIA [id number] [place] [address] [place] Carboxyhemoglobin (BldA) [Mass fraction] 0.4 % Normal 0.0-2.0 [facility] Comment on above: Order Comment: Speci men Type: ARTERIAL BLOOD SPECIMENOrdering Facility: [facility] Address: [address] [place] [address] Performed By: #### A LLBG ####[facility] LABIA [id number] [place] [address] [place] CO2 (Bld) [Partial pressure] 46 mm Hg Normal 36-46 [facility] Comment on above: Order Comment: Speci men Type: ARTERIAL BLOOD SPECIMENOrdering Facility: [facility] Address: [address] [place] [address] Performed By: #### A LLBG ####[facility] LABCLIA [id number] [place] [address] [place] FIO2 40 % Normal [facility] Comment on above: Order Comment: Speci men Type: ARTERIAL BLOOD SPECIMENOrdering Facility: [facility] Address: [address] [place] [address] Performed By: #### A LLBG ####[facility] LABCLIA [id number] [place] [address] [place] Order Comment: Speci men Type: VENOUS BLOOD SPECIMENOrdering Facility: [facility] Address: [address] [place] [address] Performed By: #### 2 4344-4 ####[facility] LABCLIA [id number] [place] [address] [place] Glucose [Mass/Vol] 159 mg/dL High 60-105 [facility] Comment on above: Order Comment: Speci men Type: ARTERIAL BLOOD SPECIMENOrdering Facility: [facility] Address: [address] [place] [address] Performed By: #### A LLBG ####[facility] LABCLIA [id number] [place] [address] [place] HCO3 (Bld) [Moles/Vol] 27 mmol/L High 22-26 [facility] Comment on above: Order Comment: Speci men Type: ARTERIAL BLOOD SPECIMENOrdering Facility: [facility] Address: [address] [place] [id number] Performed By: #### A LLBG ####[facility] LABCLIA [id number] [place] [id number] [address] [place] Hematocrit (Bld) [Volume fraction] 28.1 % Low 39.0-51.0 [facility] Comment on above: Order Comment: Speci men Type: ARTERIAL BLOOD SPECIMENOrdering Facility: [facility] Address: [address] [place] [address] Performed By: #### A LLBG ####[facility] LABCLIA [id number] [place] [address] [place] Hemoglobin (Bld) [Mass/Vol] 9.1 g/dL Low 13.0-17.0 [facility] Comment on above: Order Comment: Speci men Type: ARTERIAL BLOOD SPECIMENOrdering Facility: [facility] Address: [address] [place] [address] Performed By: #### A LLBG ####[facility] LABCLIA [id number] [place] [address] [place] Lactate [Moles/Vol] 2.9 mmol/L High 0.5-2.2 [facility] Comment on above: Order Comment: Speci men Type: ARTERIAL BLOOD SPECIMENOrdering Facility: [facility] Address: [address] [place] [address] Performed By: #### A LLBG ####[facility] LABCLIA [id number] [place] [address] [place] Methemoglobin (Bld) [Mass fraction] 2.1 % High 0.0-1.5 [facility] Comment on above: Order Comment: Speci men Type: ARTERIAL BLOOD SPECIMENOrdering Facility: [facility] Address: [address] [place] [address] Performed By: #### A LLBG ####[facility] LABCLIA [id number] [place] [address] [place] O2 THERAPY Ventilator Normal [facility] Comment on above: Order Comment: Speci men Type: ARTERIAL BLOOD SPECIMENOrdering Facility: [facility] Address: [address] [place] [address] Performed By: #### A LLBG ####[facility] LABCLIA [id number] [place] [address] [place] Order Comment: Speci men Type: VENOUS BLOOD SPECIMENOrdering Facility: [facility] Address: [address] [place] [address] Performed By: #### 2 4344-4 ####[facility] LABCLIA [id number] [place] [address] [place] Oxygen (Bld) [Partial pressure] 167 mm Hg High 85-95 [facility] Comment on above: Order Comment: Speci men Type: ARTERIAL BLOOD SPECIMENOrdering Facility: [facility] Address: [address] [place] [address] Performed By: #### A LLBG ####[facility] LABCLIA [id number] [place] [address] [place] Oxyhemoglobin (BldA) [Mass fraction] 95 % Normal 95-98 [facility] Comment on above: Order Comment: Speci men Type: ARTERIAL BLOOD SPECIMENOrdering Facility: [facility] Address: [address] [place] [address] Performed By: #### A LLBG ####[facility] LABCLIA [id number] [place] [address] [place] pH (Bld) 7.39 [pH] Normal 7.35-7.45 [facility] Comment on above: Order Comment: Speci men Type: ARTERIAL BLOOD SPECIMENOrdering Facility: [facility] Address: [address] [place], [place] [id number] Performed By: #### A LLBG ####[facility] LABCLIA [id number] [place] [address] [place] PO2 / FIO2 RATIO 418 mmHg Normal >300 [facility] Comment on above: Order Comment: Speci men Type: ARTERIAL BLOOD SPECIMENOrdering Facility: [facility] Address: [address] [place] [address] Performed By: #### A LLBG ####[facility] LABCLIA [id number] [place] [address] [place] Potassium [Moles/Vol] 4.3 mmol/L Normal 3.5-5.0 [facility] Comment on above: Order Comment: Speci men Type: ARTERIAL BLOOD SPECIMENOrdering Facility: [facility] Address: [address] [place] [address] Performed By: #### A LLBG ####[facility] LABCLIA [id number] [place] [address] [place] Sodium [Moles/Vol] 133 mmol/L Low 136-144 [facility] Comment on above: Order Comment: Speci men Type: ARTERIAL BLOOD SPECIMENOrdering Facility: [facility] Address: [address] [place] [address] Performed By: #### A LLBG ####[facility] LABCLIA [id number] [place] [address] [place] Base excess Calc (Bld) [Moles/Vol] 3 mmol/L High 0-2 [facility] Comment on above: Order Comment: Speci men Type: ARTERIAL BLOOD SPECIMENOrdering Facility: [facility] Address: [address] [place] [address] Performed By: #### A LLBG ####[facility] LABCLIA [id number] [place] [address] [place] Calcium.ionized (Bld) [Mass/Vol] 1.12 mmol/L Normal 1.08-1.30 [facility] Comment on above: Order Comment: Speci men Type: ARTERIAL BLOOD SPECIMENOrdering Facility: [facility] Address: [address] [place] [address] Performed By: #### A LLBG ####[facility] LABCLIA [id number] [place] [address] [place] Carboxyhemoglobin (BldA) [Mass fraction] <0.0 Low 0.0-2.0 [facility] Comment on above: Order Comment: Speci men Type: ARTERIAL BLOOD SPECIMENOrdering Facility: [facility] Address: [address] [place] [address] Result Comment: Carb oxyhemoglobin Reference Range for Smokers: 2.0-8.0% Performed By: #### A LLBG ####[facility] LABCLIA [id number] [place] [address] [place] CO2 (Bld) [Partial pressure] 39 mm Hg Normal 36-46 [facility] Comment on above: Order Comment: Speci men Type: ARTERIAL BLOOD SPECIMENOrdering Facility: [facility] Address: [address] [place] [address] Performed By: #### A LLBG ####[facility] LABCLIA [id number] [place] [address] [place] Glucose [Mass/Vol] 144 mg/dL High 60-105 [facility] Comment on above: Order Comment: Speci men Type: ARTERIAL BLOOD SPECIMENOrdering Facility: [facility] Address: [address] [place] [address] Performed By: #### A LLBG ####[facility] LABCLIA [id number] [place] [address] [place] HCO3 (Bld) [Moles/Vol] 26 mmol/L Normal 22-26 [facility] Comment on above: Order Comment: Speci men Type: ARTERIAL BLOOD SPECIMENOrdering Facility: [facility] Address: [address] [place] [address] Performed By: #### A LLBG ####[facility] LABCLIA [id number] [place] [address] [place] Hematocrit (Bld) [Volume fraction] 22.8 % Low 39.0-51.0 [facility] Comment on above: Order Comment: Speci men Type: ARTERIAL BLOOD SPECIMENOrdering Facility: [facility] Address: [address] [place] [address] Performed By: #### A LLBG ####[facility] LABIA [id number] [place] [address] [place] Hemoglobin (Bld) [Mass/Vol] 7.3 g/dL Low 13.0-17.0 [facility] Comment on above: Order Comment: Speci men Type: ARTERIAL BLOOD SPECIMENOrdering Facility: [facility] Address: [address] [place] [address] Performed By: #### A LLBG ####[facility] [id number] [place] [address] [place] Lactate [Moles/Vol] 4.1 mmol/L High 0.5-2.2 [facility] Comment on above: Order Comment: Speci men Type: ARTERIAL BLOOD SPECIMENOrdering Facility: [facility] Address: [address] [place] [address] Performed By: #### A LLBG ####[facility] LABIA [id number] [place] [address] [place] Methemoglobin (Bld) [Mass fraction] 2.5 % High 0.0-1.5 [facility] Comment on above: Order Comment: Speci men Type: ARTERIAL BLOOD SPECIMENOrdering Facility: [facility] Address: [address] [place] [address] Performed By: #### A LLBG ####[facility] LABIA [id number] [place] [address] [place] Oxygen (Bld) [Partial pressure] 167 mm Hg High 85-95 [facility] Comment on above: Order Comment: Speci men Type: ARTERIAL BLOOD SPECIMENOrdering Facility: [facility] Address: [address] [place] [address] Performed By: #### A LLBG ####[facility] LABCLIA [id number] [place] [id number] [place] Oxyhemoglobin (BldA) [Mass fraction] 93 % Low 95-98 [facility] Comment on above: Order Comment: Speci men Type: ARTERIAL BLOOD SPECIMENOrdering Facility: [facility] Address: [address] [place] [address] Performed By: #### A LLBG ####[facility] LABCLIA [id number] [place] [address] [place] pH (Bld) 7.45 [pH] Normal 7.35-7.45 [facility] Comment on above: Order Comment: Speci men Type: ARTERIAL BLOOD SPECIMENOrdering Facility: [facility] Address: [address] [place] [address] Performed By: #### A LLBG ####[facility] LABCLIA [id number] [place] [address] [place] Potassium [Moles/Vol] 3.7 mmol/L Normal 3.5-5.0 [facility] Comment on above: Order Comment: Speci men Type: ARTERIAL BLOOD SPECIMENOrdering Facility: [facility] Address: [address] [place] [address] Performed By: #### A LLBG ####[facility] LABIA [id number] [place] [address] [place] Sodium [Moles/Vol] 133 mmol/L Low 136-144 [facility] Comment on above: Order Comment: Speci men Type: ARTERIAL BLOOD SPECIMENOrdering Facility: [facility] Address: [address] [place] [address] Performed By: #### A LLBG ####[facility] LABCLIA [id number] [place] [id number] [place] Base excess Calc (Bld) [Moles/Vol] 1 mmol/L Normal 0-2 [facility] Comment on above: Order Comment: Speci men Type: ARTERIAL BLOOD SPECIMENOrdering Facility: [facility] Address: [address] [place] [address] Performed By: #### A LLBG ####[facility] LABCLIA [id number] [place] [address] [place] Calcium.ionized (Bld) [Mass/Vol] 1.22 mmol/L Normal 1.08-1.30 [facility] Comment on above: Order Comment: Speci men Type: ARTERIAL BLOOD SPECIMENOrdering Facility: [facility] Address: [address] [place] [address] Performed By: #### A LLBG ####[facility] LABIA [id number] [place] [address] [place] Calcium.ionized adjusted to pH 7.4 (BldA) [Moles/Vol] 1.23 mmol/L Normal 1.08-1.30 [facility] Comment on above: Order Comment: Speci men Type: ARTERIAL BLOOD SPECIMENOrdering Facility: [facility] Address: [address] [place] [address] Performed By: #### A LLBG ####[facility] LABIA [id number] [place] [address] [place] Carboxyhemoglobin (BldA) [Mass fraction] <0.0 Low 0.0-2.0 [facility] Comment on above: Order Comment: Speci men Type: ARTERIAL BLOOD SPECIMENOrdering Facility: [facility] Address: [address] [place] [address] Result Comment: Carb oxyhemoglobin Reference Range for Smokers: 2.0-8.0% Performed By: #### A LLBG ####[facility] LABIA [id number] [place] [address] [place] CO2 (Bld) [Partial pressure] 39 mm Hg Normal 36-46 [facility] Comment on above: Order Comment: Speci men Type: ARTERIAL BLOOD SPECIMENOrdering Facility: [facility] Address: [address] [place] [address] Performed By: #### A LLBG ####[facility] LABCLIA [id number] [place] [address] [place] CO2 adjusted to patient's actual temperature (Bld) [Partial pressure] 39 mmHg Normal 36-46 [facility] Comment on above: Order Comment: Speci men Type: ARTERIAL BLOOD SPECIMENOrdering Facility: [facility] Address: [address] [place] [address] Performed By: #### A LLBG ####[facility] LABCLIA [id number] [place] [address] [place] Glucose [Mass/Vol] 173 mg/dL High 60-105 [facility] Comment on above: Order Comment: Speci men Type: ARTERIAL BLOOD SPECIMENOrdering Facility: [facility] Address: [address] [place] [address] Performed By: #### A LLBG ####[facility] LABCLIA [id number] [place] [address] [place] HCO3 (Bld) [Moles/Vol] 25 mmol/L Normal 22-26 [facility] Comment on above: Order Comment: Speci men Type: ARTERIAL BLOOD SPECIMENOrdering Facility: [facility] Address: [address] [place] [address] Performed By: #### A LLBG ####[facility] LABCLIA [id number] [place] [address] [place] Hematocrit (Bld) [Volume fraction] 28.8 % Low 39.0-51.0 [facility] Comment on above: Order Comment: Speci men Type: ARTERIAL BLOOD SPECIMENOrdering Facility: [facility] Address: [address] [place] [address] Performed By: #### A LLBG ####[facility] LABCLIA [id number] [place] [address] [place] Hemoglobin (Bld) [Mass/Vol] 9.3 g/dL Low 13.0-17.0 [facility] Comment on above: Order Comment: Speci men Type: ARTERIAL BLOOD SPECIMENOrdering Facility: [facility] Address: [address] [place] [address] Performed By: #### A LLBG ####[facility] LABCLIA [id number] [place] [address] [place] Lactate [Moles/Vol] 4.3 mmol/L High 0.5-2.2 [facility] Comment on above: Order Comment: Speci men Type: ARTERIAL BLOOD SPECIMENOrdering Facility: [facility] Address: [address] [place] [address] Performed By: #### A LLBG ####[facility] LABCLIA [id number] [place] [address] [place] Methemoglobin (Bld) [Mass fraction] 5.4 % High 0.0-1.5 [facility] Comment on above: Order Comment: Speci men Type: ARTERIAL BLOOD SPECIMENOrdering Facility: [facility] Address: [address] [place] [address] Performed By: #### A LLBG ####[facility] LABCLIA [id number] [place] [address] [place] Oxygen (Bld) [Partial pressure] 304 mm Hg High 85-95 [facility] Comment on above: Order Comment: Speci men Type: ARTERIAL BLOOD SPECIMENOrdering Facility: [facility] Address: [address] [place] [address] Performed By: #### A LLBG ####[facility] LABCLIA [id number] [place] [address] [place] Oxygen adjusted to patient's actual temperature (Bld) [Partial pressure] 304 mmHg High 85-95 [facility] Comment on above: Order Comment: Speci men Type: ARTERIAL BLOOD SPECIMENOrdering Facility: [facility] Address: [address] [place] [address] Performed By: #### A LLBG ####[facility] LABCLIA [id number] [place] [address] [place] Oxyhemoglobin (BldA) [Mass fraction] 89 % Low 95-98 [facility] Comment on above: Order Comment: Speci men Type: ARTERIAL BLOOD SPECIMENOrdering Facility: [facility] Address: [address] [place] [address] Performed By: #### A LLBG ####[facility] LABCLIA [id number] [place] [address] [place] pH (Bld) 7.42 [pH] Normal 7.35-7.45 [facility] Comment on above: Order Comment: Speci men Type: ARTERIAL BLOOD SPECIMENOrdering Facility: [facility] Address: [address] [place] [address] Performed By: #### A LLBG ####[facility] LABCLIA [id number] [place] [address] [place] pH adjusted to patient's actual temperature (Bld) 7.42 Normal 7.35-7.45 [facility] Comment on above: Order Comment: Speci men Type: ARTERIAL BLOOD SPECIMENOrdering Facility: [facility] Address: [address] [place] [address] Performed By: #### A LLBG ####[facility] LABCLIA [id number] [place] [address] [place] Potassium [Moles/Vol] 3.8 mmol/L Normal 3.5-5.0 [facility] Comment on above: Order Comment: Speci men Type: ARTERIAL BLOOD SPECIMENOrdering Facility: [facility] Address: [address] [place] [address] Performed By: #### A LLBG ####[facility] LABCLIA [id number] [place] [address] [place] Sodium [Moles/Vol] 133 mmol/L Low 136-144 [facility] Comment on above: Order Comment: Speci men Type: ARTERIAL BLOOD SPECIMENOrdering Facility: [facility] Address: [address] [place] [address] Performed By: #### A LLBG ####[facility] LABIA [id number] [place] [address] [place] Base excess Calc (Bld) [Moles/Vol] 1 mmol/L Normal 0-2 [facility] Comment on above: Order Comment: Speci men Type: ARTERIAL BLOOD SPECIMENOrdering Facility: [facility] Address: [address] [place] [address] Performed By: #### A LLBG ####[facility] LABIA [id number] [place] [address] [place] Calcium.ionized (Bld) [Mass/Vol] 1.26 mmol/L Normal 1.08-1.30 [facility] Comment on above: Order Comment: Speci men Type: ARTERIAL BLOOD SPECIMENOrdering Facility: [facility] Address: [address] [place] [address] Performed By: #### A LLBG ####[facility] LABIA [id number] [place] [address] [place] Calcium.ionized adjusted to pH 7.4 (BldA) [Moles/Vol] 1.25 mmol/L Normal 1.08-1.30 [facility] Comment on above: Order Comment: Speci men Type: ARTERIAL BLOOD SPECIMENOrdering Facility: [facility] Address: [address] [place] [address] Performed By: #### A LLBG ####[facility] LABIA [id number] [place] [address] [place] Carboxyhemoglobin (BldA) [Mass fraction] 1.8 % Normal 0.0-2.0 [facility] Comment on above: Order Comment: Speci men Type: ARTERIAL BLOOD SPECIMENOrdering Facility: [facility] Address: [address] [place] [address] Result Comment: Carb oxyhemoglobin Reference Range for Smokers: 2.0-8.0% Performed By: #### A LLBG ####[facility] LABCLIA [id number] [place] [address] [place] CO2 (Bld) [Partial pressure] 44 mm Hg Normal 36-46 [facility] Comment on above: Order Comment: Speci men Type: ARTERIAL BLOOD SPECIMENOrdering Facility: [facility] Address: [address] [place] [address] Performed By: #### A LLBG ####[facility] LABCLIA [id number] [place] [address] [place] CO2 adjusted to patient's actual temperature (Bld) [Partial pressure] 44 mmHg Normal 36-46 [facility] Comment on above: Order Comment: Speci men Type: ARTERIAL BLOOD SPECIMENOrdering Facility: [facility] Address: [address] [place] [address] Performed By: #### A LLBG ####[facility] LABCLIA [id number] [place] [address] [place] Glucose [Mass/Vol] 211 mg/dL High 60-105 [facility] Comment on above: Order Comment: Speci men Type: ARTERIAL BLOOD SPECIMENOrdering Facility: [facility] Address: [address] [place] [address] Performed By: #### A LLBG ####[facility] LABCLIA [id number] [place] [address] [place] HCO3 (Bld) [Moles/Vol] 26 mmol/L Normal 22-26 [facility] Comment on above: Order Comment: Speci men Type: ARTERIAL BLOOD SPECIMENOrdering Facility: [facility] Address: [address] [place] [address] Performed By: #### A LLBG ####[facility] LABCLIA [id number] [place] [address] [place] Hematocrit (Bld) [Volume fraction] 27.3 % Low 39.0-51.0 [facility] Comment on above: Order Comment: Speci men Type: ARTERIAL BLOOD SPECIMENOrdering Facility: [facility] Address: [address] [place] [address] Performed By: #### A LLBG ####[facility] LABIA [id number] [place] [address] [place] Hemoglobin (Bld) [Mass/Vol] 8.8 g/dL Low 13.0-17.0 [facility] Comment on above: Order Comment: Speci men Type: ARTERIAL BLOOD SPECIMENOrdering Facility: [facility] Address: [address] [place] [address] Performed By: #### A LLBG ####[facility] LABIA [id number] [place] [address] [place] Lactate [Moles/Vol] 4.2 mmol/L High 0.5-2.2 [facility] Comment on above: Order Comment: Speci men Type: ARTERIAL BLOOD SPECIMENOrdering Facility: [facility] Address: [address] [place] [address] Performed By: #### A LLBG ####[facility] LABIA [id number] [place] [address] [place] Methemoglobin (Bld) [Mass fraction] 1.7 % High 0.0-1.5 [facility] Comment on above: Order Comment: Speci men Type: ARTERIAL BLOOD SPECIMENOrdering Facility: [facility] Address: [address] [place] [address] Performed By: #### A LLBG ####[facility] LABIA [id number] [address] [id number] [address] [place] Oxygen (Bld) [Partial pressure] 229 mm Hg High 85-95 [facility] Comment on above: Order Comment: Speci men Type: ARTERIAL BLOOD SPECIMENOrdering Facility: [facility] Address: [address] [place] [address] Performed By: #### A LLBG ####[facility] LABCLIA [id number] [address] [address] [place] Oxygen adjusted to patient's actual temperature (Bld) [Partial pressure] 229 mmHg High 85-95 [facility] Comment on above: Order Comment: Speci men Type: ARTERIAL BLOOD SPECIMENOrdering Facility: [facility] Address: [address] [place] [address] Performed By: #### A LLBG ####[facility] LABCLIA [id number] [place] [address] [place] Oxyhemoglobin (BldA) [Mass fraction] 96 % Normal 95-98 [facility] Comment on above: Order Comment: Speci men Type: ARTERIAL BLOOD SPECIMENOrdering Facility: [facility] Address: [address] [place] [address] Performed By: #### A LLBG ####[facility] LABCLIA [id number] [place] [address] [place] pH (Bld) 7.38 [pH] Normal 7.35-7.45 [facility] Comment on above: Order Comment: Speci men Type: ARTERIAL BLOOD SPECIMENOrdering Facility: [facility] Address: [address] [place] [address] Performed By: #### A LLBG ####[facility] LABCLIA [id number] [place] [address] [place] pH adjusted to patient's actual temperature (Bld) 7.38 Normal 7.35-7.45 [facility] Comment on above: Order Comment: Speci men Type: ARTERIAL BLOOD SPECIMENOrdering Facility: [facility] Address: [address] [place] [address] Performed By: #### A LLBG ####[facility] LABCLIA [id number] [place] [address] [place] Potassium [Moles/Vol] 3.8 mmol/L Normal 3.5-5.0 [facility] Comment on above: Order Comment: Speci men Type: ARTERIAL BLOOD SPECIMENOrdering Facility: [facility] Address: [address] [place] [address] Performed By: #### A LLBG ####[facility] LABCLIA [id number] [place] [address] [place] Sodium [Moles/Vol] 133 mmol/L Low 136-144 [facility] Comment on above: Order Comment: Speci men Type: ARTERIAL BLOOD SPECIMENOrdering Facility: [facility] Address: [address] [place] [address] Performed By: #### A LLBG ####[facility] LABCLIA [id number] [place] [address] [place] Base excess Calc (Bld) [Moles/Vol] 3 mmol/L High 0-2 [facility] Comment on above: Order Comment: Speci men Type: ARTERIAL BLOOD SPECIMENOrdering Facility: [facility] Address: [address] [place] [address] Performed By: #### A LLBG ####[facility] LABCLIA [id number] [place] [address] [place] Calcium.ionized (Bld) [Mass/Vol] 1.09 mmol/L Normal 1.08-1.30 [facility] Comment on above: Order Comment: Speci men Type: ARTERIAL BLOOD SPECIMENOrdering Facility: [facility] Address: [address] [place] [address] Performed By: #### A LLBG ####[facility] LABCLIA [id number] [place] [address] [place] Calcium.ionized adjusted to pH 7.4 (BldA) [Moles/Vol] 1.11 mmol/L Normal 1.08-1.30 [facility] Comment on above: Order Comment: Speci men Type: ARTERIAL BLOOD SPECIMENOrdering Facility: [facility] Address: [address] [place] [address] Performed By: #### A LLBG ####[facility] LABCLIA [id number] [place] [address] [place] Carboxyhemoglobin (BldA) [Mass fraction] 1.7 % Normal 0.0-2.0 [facility] Comment on above: Order Comment: Speci men Type: ARTERIAL BLOOD SPECIMENOrdering Facility: [facility] Address: [address] [place] [address] Result Comment: Carb oxyhemoglobin Reference Range for Smokers: 2.0-8.0% Performed By: #### A LLBG ####[facility] LABCLIA [id number] [place] [address] [place] CO2 (Bld) [Partial pressure] 42 mm Hg Normal 36-46 [facility] Comment on above: Order Comment: Speci men Type: ARTERIAL BLOOD SPECIMENOrdering Facility: [facility] Address: [address] [place] [address] Performed By: #### A LLBG ####[facility] LABCLIA [id number] [place] [address] [place] CO2 adjusted to patient's actual temperature (Bld) [Partial pressure] 42 mmHg Normal 36-46 [facility] Comment on above: Order Comment: Speci men Type: ARTERIAL BLOOD SPECIMENOrdering Facility: [facility] Address: [address] [place] [address] Performed By: #### A LLBG ####[facility] LABCLIA [id number] [place] [address] [place] Glucose [Mass/Vol] 260 mg/dL High 60-105 [facility] Comment on above: Order Comment: Speci men Type: ARTERIAL BLOOD SPECIMENOrdering Facility: [facility] Address: [address] [place] [address] Performed By: #### A LLBG ####[facility] LABCLIA [id number] [place] [address] [place] HCO3 (Bld) [Moles/Vol] 27 mmol/L High 22-26 [facility] Comment on above: Order Comment: Speci men Type: ARTERIAL BLOOD SPECIMENOrdering Facility: [facility] Address: [address] [place] [address] Performed By: #### A LLBG ####[facility] LABCLIA [id number] [place] [address] [place] Hematocrit (Bld) [Volume fraction] 27.0 % Low 39.0-51.0 [facility] Comment on above: Order Comment: Speci men Type: ARTERIAL BLOOD SPECIMENOrdering Facility: [facility] Address: [address] [place] [address] Performed By: #### A LLBG ####[facility] LABCLIA [id number] [place] [address] [place] Hemoglobin (Bld) [Mass/Vol] 8.7 g/dL Low 13.0-17.0 [facility] Comment on above: Order Comment: Speci men Type: ARTERIAL BLOOD SPECIMENOrdering Facility: [facility] Address: [address] [place] [address] Performed By: #### A LLBG ####[facility] LABCLIA [id number] [place] [address] [place] Lactate [Moles/Vol] 2.7 mmol/L High 0.5-2.2 [facility] Comment on above: Order Comment: Speci men Type: ARTERIAL BLOOD SPECIMENOrdering Facility: [facility] Address: [address] [place] [address] Performed By: #### A LLBG ####[facility] LABCLIA [id number] [address] [address] [place] Methemoglobin (Bld) [Mass fraction] 0.9 % Normal 0.0-1.5 [facility] Comment on above: Order Comment: Speci men Type: ARTERIAL BLOOD SPECIMENOrdering Facility: [facility] Address: [address] [place] [address] Performed By: #### A LLBG ####[facility] LABCLIA [id number] [place] [id number] [place] Oxygen (Bld) [Partial pressure] 279 mm Hg High 85-95 [facility] Comment on above: Order Comment: Speci men Type: ARTERIAL BLOOD SPECIMENOrdering Facility: [facility] Address: [address] [place] [address] Performed By: #### A LLBG ####[facility] LABCLIA [id number] [place] [address] [place] Oxygen adjusted to patient's actual temperature (Bld) [Partial pressure] 279 mmHg High 85-95 [facility] Comment on above: Order Comment: Speci men Type: ARTERIAL BLOOD SPECIMENOrdering Facility: [facility] Address: [address] [place] [address] Performed By: #### A LLBG ####[facility] LABCLIA [id number] [place] [id number] [place] Oxyhemoglobin (BldA) [Mass fraction] 97 % Normal 95-98 [facility] Comment on above: Order Comment: Speci men Type: ARTERIAL BLOOD SPECIMENOrdering Facility: [facility] Address: [address] [place] [address] Performed By: #### A LLBG ####[facility] LABCLIA [id number] [place] [id number] [place] pH (Bld) 7.43 [pH] Normal 7.35-7.45 [facility] Comment on above: Order Comment: Speci men Type: ARTERIAL BLOOD SPECIMENOrdering Facility: [facility] Address: [address] [place] [address] Performed By: #### A LLBG ####[facility] LABIA [id number] [place] [address] [place] pH adjusted to patient's actual temperature (Bld) 7.43 Normal 7.35-7.45 [facility] Comment on above: Order Comment: Speci men Type: ARTERIAL BLOOD SPECIMENOrdering Facility: [facility] Address: [address] [place] [address] Performed By: #### A LLBG ####[facility] LABIA [id number] [place] [address] [place] Potassium [Moles/Vol] 4.6 mmol/L Normal 3.5-5.0 [facility] Comment on above: Order Comment: Speci men Type: ARTERIAL BLOOD SPECIMENOrdering Facility: [facility] Address: [address] [place] [address] Performed By: #### A LLBG ####[facility] LABIA [id number] [place] [address] [place] Sodium [Moles/Vol] 132 mmol/L Low 136-144 [facility] Comment on above: Order Comment: Speci men Type: ARTERIAL BLOOD SPECIMENOrdering Facility: [facility] Address: [address] [place] [address] Performed By: #### A LLBG ####[facility] LABIA [id number] [place] [address] [place] Base excess Calc (Bld) [Moles/Vol] 3 mmol/L High 0-2 [facility] Comment on above: Order Comment: Speci men Type: ARTERIAL BLOOD SPECIMENOrdering Facility: [facility] Address: [address] [place] [address] Performed By: #### A LLBG ####[facility] LABIA [id number] [place] [address] [place] Calcium.ionized (Bld) [Mass/Vol] 1.12 mmol/L Normal 1.08-1.30 [facility] Comment on above: Order Comment: Speci men Type: ARTERIAL BLOOD SPECIMENOrdering Facility: [facility] Address: [address] [place] [address] Performed By: #### A LLBG ####[facility] LABIA [id number] [place] [address] [place] Calcium.ionized adjusted to pH 7.4 (BldA) [Moles/Vol] 1.13 mmol/L Normal 1.08-1.30 [facility] Comment on above: Order Comment: Speci men Type: ARTERIAL BLOOD SPECIMENOrdering Facility: [facility] Address: [address] [place] [address] Performed By: #### A LLBG ####[facility] [id number] [place] [address] [place] Carboxyhemoglobin (BldA) [Mass fraction] 1.8 % Normal 0.0-2.0 [facility] Comment on above: Order Comment: Speci men Type: ARTERIAL BLOOD SPECIMENOrdering Facility: [facility] Address: [address] [place] [address] Result Comment: Carb oxyhemoglobin Reference Range for Smokers: 2.0-8.0% Performed By: #### A LLBG ####[facility] LABIA [id number] [place] [address] [place] CO2 (Bld) [Partial pressure] 43 mm Hg Normal 36-46 [facility] Comment on above: Order Comment: Speci men Type: ARTERIAL BLOOD SPECIMENOrdering Facility: [facility] Address: [address] [place] [address] Performed By: #### A LLBG ####[facility] LABIA [id number] [place] [address] [place] CO2 adjusted to patient's actual temperature (Bld) [Partial pressure] 43 mmHg Normal 36-46 [facility] Comment on above: Order Comment: Speci men Type: ARTERIAL BLOOD SPECIMENOrdering Facility: [facility] Address: [address] [place] [address] Performed By: #### A LLBG ####[facility] LABCLIA [id number] [place] [address] [place] Glucose [Mass/Vol] 223 mg/dL High 60-105 [facility] Comment on above: Order Comment: Speci men Type: ARTERIAL BLOOD SPECIMENOrdering Facility: [facility] Address: [address] [place] [address] Performed By: #### A LLBG ####[facility] LABCLIA [id number] [place] [address] [place] HCO3 (Bld) [Moles/Vol] 28 mmol/L High 22-26 [facility] Comment on above: Order Comment: Speci men Type: ARTERIAL BLOOD SPECIMENOrdering Facility: [facility] Address: [address] [place] [address] Performed By: #### A LLBG ####[facility] LABCLIA [id number] [place] [address] [place] Hematocrit (Bld) [Volume fraction] 38.7 % Low 39.0-51.0 [facility] Comment on above: Order Comment: Speci men Type: ARTERIAL BLOOD SPECIMENOrdering Facility: [facility] Address: [address] [place], [place] [id number] Performed By: #### A LLBG ####[facility] LABCLIA [id number] [place] [address] [place] Hemoglobin (Bld) [Mass/Vol] 12.6 g/dL Low 13.0-17.0 [facility] Comment on above: Order Comment: Speci men Type: ARTERIAL BLOOD SPECIMENOrdering Facility: [facility] Address: [address] [place] [id number] Performed By: #### A LLBG ####[facility] LABCLIA [id number] [place] [address] [place] Lactate [Moles/Vol] 2.6 mmol/L High 0.5-2.2 [facility] Comment on above: Order Comment: Speci men Type: ARTERIAL BLOOD SPECIMENOrdering Facility: [facility] Address: [address] [place], [place] [id number] Performed By: #### A LLBG ####[facility] LABCLIA [id number] [place] [address] [place] Methemoglobin (Bld) [Mass fraction] 0.5 % Normal 0.0-1.5 [facility] Comment on above: Order Comment: Speci men Type: ARTERIAL BLOOD SPECIMENOrdering Facility: [facility] Address: [address] [place] [address] Performed By: #### A LLBG ####[facility] LABCLIA [id number] [place] [address] [place] Oxygen (Bld) [Partial pressure] 327 mm Hg High 85-95 [facility] Comment on above: Order Comment: Speci men Type: ARTERIAL BLOOD SPECIMENOrdering Facility: [facility] Address: [address] [place], [place] [id number] Performed By: #### A LLBG ####[facility] LABCLIA [id number] [place] [address] [place] Oxygen adjusted to patient's actual temperature (Bld) [Partial pressure] 327 mmHg High 85-95 [facility] Comment on above: Order Comment: Speci men Type: ARTERIAL BLOOD SPECIMENOrdering Facility: [facility] Address: [address] [place], [place] [id number] Performed By: #### A LLBG ####[facility] LABCLIA [id number] [place] [address] [place] Oxyhemoglobin (BldA) [Mass fraction] 98 % Normal 95-98 [facility] Comment on above: Order Comment: Speci men Type: ARTERIAL BLOOD SPECIMENOrdering Facility: [facility] Address: [address] [place] [address] Performed By: #### A LLBG ####[facility] LABCLIA [id number] [place] [address] [place] pH (Bld) 7.43 [pH] Normal 7.35-7.45 [facility] Comment on above: Order Comment: Speci men Type: ARTERIAL BLOOD SPECIMENOrdering Facility: [facility] Address: [address] [place] [address] Performed By: #### A LLBG ####[facility] LABCLIA [id number] [place] [address] [place] pH adjusted to patient's actual temperature (Bld) 7.43 Normal 7.35-7.45 [facility] Comment on above: Order Comment: Speci men Type: ARTERIAL BLOOD SPECIMENOrdering Facility: [facility] Address: [address] [place] [address] Performed By: #### A LLBG ####[facility] LABCLIA [id number] [place] [address] [place] Potassium [Moles/Vol] 4.0 mmol/L Normal 3.5-5.0 [facility] Comment on above: Order Comment: Speci men Type: ARTERIAL BLOOD SPECIMENOrdering Facility: [facility] Address: [address] [place] [address] Performed By: #### A LLBG ####[facility] LABCLIA [id number] [place] [address] [place] Sodium [Moles/Vol] 133 mmol/L Low 136-144 [facility] Comment on above: Order Comment: Speci men Type: ARTERIAL BLOOD SPECIMENOrdering Facility: [facility] Address: [address] [place] [address] Performed By: #### A LLBG ####[facility] LABIA [id number] [place] [address] [place] Base excess Calc (Bld) [Moles/Vol] 4 mmol/L High 0-2 [facility] Comment on above: Order Comment: Speci men Type: ARTERIAL BLOOD SPECIMENOrdering Facility: [facility] Address: [address] [place] [address] Performed By: #### A LLBG ####[facility] LABIA [id number] [place] [address] [place] Calcium.ionized (Bld) [Mass/Vol] 1.14 mmol/L Normal 1.08-1.30 [facility] Comment on above: Order Comment: Speci men Type: ARTERIAL BLOOD SPECIMENOrdering Facility: [facility] Address: [address] [place] [address] Performed By: #### A LLBG ####[facility] [id number] [place] [address] [place] Calcium.ionized adjusted to pH 7.4 (BldA) [Moles/Vol] 1.17 mmol/L Normal 1.08-1.30 [facility] Comment on above: Order Comment: Speci men Type: ARTERIAL BLOOD SPECIMENOrdering Facility: [facility] Address: [address] [place] [address] Performed By: #### A LLBG ####[facility] [id number] [place] [address] [place] Carboxyhemoglobin (BldA) [Mass fraction] 1.8 % Normal 0.0-2.0 [facility] Comment on above: Order Comment: Speci men Type: ARTERIAL BLOOD SPECIMENOrdering Facility: [facility] Address: [address] [place] [address] Result Comment: Carb oxyhemoglobin Reference Range for Smokers: 2.0-8.0% Performed By: #### A LLBG ####[facility] LABCLIA [id number] [address] STATES OF [facility] CO2 (Bld) [Partial pressure] 40 mm Hg Normal 36-46 [facility] Comment on above: Order Comment: Speci men Type: ARTERIAL BLOOD SPECIMENOrdering Facility: [facility] Address: [address] [place] [address] Performed By: #### A LLBG ####[facility] LABCLIA [id number] [address] OF [facility] CO2 adjusted to patient's actual temperature (Bld) [Partial pressure] 40 mmHg Normal 36-46 [facility] Comment on above: Order Comment: Speci men Type: ARTERIAL BLOOD SPECIMENOrdering Facility: [facility] Address: [address] [place] [address] Performed By: #### A LLBG ####[facility] LABCLIA [id number] [address] STATES OF [facility] Hematocrit (Bld) [Volume fraction] 27.2 % Low 39.0-51.0 [facility] Comment on above: Order Comment: Speci men Type: ARTERIAL BLOOD SPECIMENOrdering Facility: [facility] Address: [address] [place] [address] Performed By: #### A LLBG ####[facility] LABCLIA [id number] [place] [address] [place] Hemoglobin (Bld) [Mass/Vol] 8.8 g/dL Low 13.0-17.0 [facility] Comment on above: Order Comment: Speci men Type: ARTERIAL BLOOD SPECIMENOrdering Facility: [facility] Address: [address] [place] [address] Performed By: #### A LLBG ####[facility] LABCLIA [id number] [id number] [address] [place] Lactate [Moles/Vol] 1.9 mmol/L Normal 0.5-2.2 [facility] Comment on above: Order Comment: Speci men Type: ARTERIAL BLOOD SPECIMENOrdering Facility: [facility] Address: [address] [place] [address] Performed By: #### A LLBG ####[facility] LABCLIA [id number] [place] [address] [place] Methemoglobin (Bld) [Mass fraction] 1.5 % Normal 0.0-1.5 [facility] Comment on above: Order Comment: Speci men Type: ARTERIAL BLOOD SPECIMENOrdering Facility: [facility] Address: [address] [place] [address] Performed By: #### A LLBG ####[facility] LABCLIA [id number] [place] [address] [place] Oxygen (Bld) [Partial pressure] 280 mm Hg High 85-95 [facility] Comment on above: Order Comment: Speci men Type: ARTERIAL BLOOD SPECIMENOrdering Facility: [facility] Address: [address] [place] [address] Performed By: #### A LLBG ####[facility] LABCLIA [id number] [place] [address] [place] Oxygen adjusted to patient's actual temperature (Bld) [Partial pressure] 280 mmHg High 85-95 [facility] Comment on above: Order Comment: Speci men Type: ARTERIAL BLOOD SPECIMENOrdering Facility: [facility] Address: [address] [place] [address] Performed By: #### A LLBG ####[facility] LABCLIA [id number] [place] [address] [place] Oxyhemoglobin (BldA) [Mass fraction] 97 % Normal 95-98 [facility] Comment on above: Order Comment: Speci men Type: ARTERIAL BLOOD SPECIMENOrdering Facility: [facility] Address: [address] [place] [address] Performed By: #### A LLBG ####[facility] LABCLIA [id number] [place] [address] [place] pH (Bld) 7.45 [pH] Normal 7.35-7.45 [facility] Comment on above: Order Comment: Speci men Type: ARTERIAL BLOOD SPECIMENOrdering Facility: [facility] Address: [address] [place] [address] Performed By: #### A LLBG ####[facility] LABCLIA [id number] [place] [address] [place] pH adjusted to patient's actual temperature (Bld) 7.45 Normal 7.35-7.45 [facility] Comment on above: Order Comment: Speci men Type: ARTERIAL BLOOD SPECIMENOrdering Facility: [facility] Address: [address] [place] [address] Performed By: #### A LLBG ####[facility] LABIA [id number] [place] [address] [place] Potassium [Moles/Vol] 4.2 mmol/L Normal 3.5-5.0 [facility] Comment on above: Order Comment: Speci men Type: ARTERIAL BLOOD SPECIMENOrdering Facility: [facility] Address: [address] [place] [address] Performed By: #### A LLBG ####[facility] LABCLIA [id number] [place] [address] [place] Sodium [Moles/Vol] 134 mmol/L Low 136-144 [facility] Comment on above: Order Comment: Speci men Type: ARTERIAL BLOOD SPECIMENOrdering Facility: [facility] Address: [address] [place] [address] Performed By: #### A LLBG ####[facility] LABIA [id number] [place] [address] [place] Base excess Calc (Bld) [Moles/Vol] 4 mmol/L High 0-2 [facility] Comment on above: Order Comment: Speci men Type: ARTERIAL BLOOD SPECIMENOrdering Facility: [facility] Address: [address] [place] [address] Performed By: #### A LLBG ####[facility] LABCLIA [id number] [place] [address] [place] Calcium.ionized (Bld) [Mass/Vol] 1.16 mmol/L Normal 1.08-1.30 [facility] Comment on above: Order Comment: Speci men Type: ARTERIAL BLOOD SPECIMENOrdering Facility: [facility] Address: [address] [place] [address] Performed By: #### A LLBG ####[facility] LABCLIA [id number] [place] [address] [place] Calcium.ionized adjusted to pH 7.4 (BldA) [Moles/Vol] 1.19 mmol/L Normal 1.08-1.30 [facility] Comment on above: Order Comment: Speci men Type: ARTERIAL BLOOD SPECIMENOrdering Facility: [facility] Address: [address] [place] [address] Performed By: #### A LLBG ####[facility] LABCLIA [id number] [place] [address] [place] Carboxyhemoglobin (BldA) [Mass fraction] 1.5 % Normal 0.0-2.0 [facility] Comment on above: Order Comment: Speci men Type: ARTERIAL BLOOD SPECIMENOrdering Facility: [facility] Address: [address] [place] [address] Result Comment: Carb oxyhemoglobin Reference Range for Smokers: 2.0-8.0% Performed By: #### A LLBG ####[facility] LABCLIA [id number] [place] [address] [place] CO2 (Bld) [Partial pressure] 40 mm Hg Normal 36-46 [facility] Comment on above: Order Comment: Speci men Type: ARTERIAL BLOOD SPECIMENOrdering Facility: [facility] Address: [address] [place] [address] Performed By: #### A LLBG ####[facility] LABCLIA [id number] [place] [address] [place] CO2 adjusted to patient's actual temperature (Bld) [Partial pressure] 40 mmHg Normal 36-46 [facility] Comment on above: Order Comment: Speci men Type: ARTERIAL BLOOD SPECIMENOrdering Facility: [facility] Address: [address] [place] [address] Performed By: #### A LLBG ####[facility] LABCLIA [id number] [place] [address] [place] Glucose [Mass/Vol] 194 mg/dL High 60-105 [facility] Comment on above: Order Comment: Speci men Type: ARTERIAL BLOOD SPECIMENOrdering Facility: [facility] Address: [address] [place] [address] Performed By: #### A LLBG ####[facility] LABCLIA [id number] [place] [address] [place] HCO3 (Bld) [Moles/Vol] 27 mmol/L High 22-26 [facility] Comment on above: Order Comment: Speci men Type: ARTERIAL BLOOD SPECIMENOrdering Facility: [facility] Address: [address] [place] [address] Performed By: #### A LLBG ####[facility] LABCLIA [id number] [place] [address] [place] Hematocrit (Bld) [Volume fraction] 30.2 % Low 39.0-51.0 [facility] Comment on above: Order Comment: Speci men Type: ARTERIAL BLOOD SPECIMENOrdering Facility: [facility] Address: [address] [place] [address] Performed By: #### A LLBG ####[facility] LABCLIA [id number] [place] [address] [place] Hemoglobin (Bld) [Mass/Vol] 9.8 g/dL Low 13.0-17.0 [facility] Comment on above: Order Comment: Speci men Type: ARTERIAL BLOOD SPECIMENOrdering Facility: [facility] Address: [address] [place] [address] Performed By: #### A LLBG ####[facility] LABCLIA [id number] [place] [address] [place] Lactate [Moles/Vol] 1.7 mmol/L Normal 0.5-2.2 [facility] Comment on above: Order Comment: Speci men Type: ARTERIAL BLOOD SPECIMENOrdering Facility: [facility] Address: [address] [place] [address] Performed By: #### A LLBG ####[facility] LABIA [id number] [place] [address] [place] Methemoglobin (Bld) [Mass fraction] 0.5 % Normal 0.0-1.5 [facility] Comment on above: Order Comment: Speci men Type: ARTERIAL BLOOD SPECIMENOrdering Facility: [facility] Address: [address] [place] [address] Performed By: #### A LLBG ####[facility] LABCLIA [id number] [place] [address] [place] Oxygen (Bld) [Partial pressure] 187 mm Hg High 85-95 [facility] Comment on above: Order Comment: Speci men Type: ARTERIAL BLOOD SPECIMENOrdering Facility: [facility] Address: [address] [place] [address] Performed By: #### A LLBG ####[facility] LABCLIA [id number] [place] [address] [place] Oxygen adjusted to patient's actual temperature (Bld) [Partial pressure] 187 mmHg High 85-95 [facility] Comment on above: Order Comment: Speci men Type: ARTERIAL BLOOD SPECIMENOrdering Facility: [facility] Address: [address] [place] [address] Performed By: #### A LLBG ####[facility] LABCLIA [id number] [place] [address] [place] Oxyhemoglobin (BldA) [Mass fraction] 98 % Normal 95-98 [facility] Comment on above: Order Comment: Speci men Type: ARTERIAL BLOOD SPECIMENOrdering Facility: [facility] Address: [address] [place] [address] Performed By: #### A LLBG ####[facility] LABCLIA [id number] [place] [address] [place] pH (Bld) 7.45 [pH] Normal 7.35-7.45 [facility] Comment on above: Order Comment: Speci men Type: ARTERIAL BLOOD SPECIMENOrdering Facility: [facility] Address: [address] [place] [address] Performed By: #### A LLBG ####[facility] LABCLIA [id number] [place] [address] [place] pH adjusted to patient's actual temperature (Bld) 7.45 Normal 7.35-7.45 [facility] Comment on above: Order Comment: Speci men Type: ARTERIAL BLOOD SPECIMENOrdering Facility: [facility] Address: [address] [place] [address] Performed By: #### A LLBG ####[facility] LABCLIA [id number] [place] [address] [place] Potassium [Moles/Vol] 4.4 mmol/L Normal 3.5-5.0 [facility] Comment on above: Order Comment: Speci men Type: ARTERIAL BLOOD SPECIMENOrdering Facility: [facility] Address: [address] [place] [address] Performed By: #### A LLBG ####[facility] LABCLIA [id number] [place] [address] [place] Sodium [Moles/Vol] 133 mmol/L Low 136-144 [facility] Comment on above: Order Comment: Speci men Type: ARTERIAL BLOOD SPECIMENOrdering Facility: [facility] Address: [address] [place] [address] Performed By: #### A LLBG ####[facility] LABCLIA [id number] [place] [address] [place] Base excess Calc (Bld) [Moles/Vol] 3 mmol/L High 0-2 [facility] Comment on above: Order Comment: Speci men Type: ARTERIAL BLOOD SPECIMENOrdering Facility: [facility] Address: [address] [place] [address] Performed By: #### A LLBG ####[facility] LABIA [id number] [place] [address] [place] Calcium.ionized (Bld) [Mass/Vol] 1.17 mmol/L Normal 1.08-1.30 [facility] Comment on above: Order Comment: Speci men Type: ARTERIAL BLOOD SPECIMENOrdering Facility: [facility] Address: [address] [place] [address] Performed By: #### A LLBG ####[facility] LABIA [id number] [place] [address] [place] Calcium.ionized adjusted to pH 7.4 (BldA) [Moles/Vol] 1.20 mmol/L Normal 1.08-1.30 [facility] Comment on above: Order Comment: Speci men Type: ARTERIAL BLOOD SPECIMENOrdering Facility: [facility] Address: [address] [place] [address] Performed By: #### A LLBG ####[facility] LABIA [id number] [place] [address] [place] Carboxyhemoglobin (BldA) [Mass fraction] 1.5 % Normal 0.0-2.0 [facility] Comment on above: Order Comment: Speci men Type: ARTERIAL BLOOD SPECIMENOrdering Facility: [facility] Address: [address] [place] [address] Result Comment: Carb oxyhemoglobin Reference Range for Smokers: 2.0-8.0% Performed By: #### A LLBG ####[facility] LABCLIA [id number] [place] [address] [place] CO2 (Bld) [Partial pressure] 39 mm Hg Normal 36-46 [facility] Comment on above: Order Comment: Speci men Type: ARTERIAL BLOOD SPECIMENOrdering Facility: [facility] Address: [address] [place] [address] Performed By: #### A LLBG ####[facility] LABCLIA [id number] [place] [address] [place] CO2 adjusted to patient's actual temperature (Bld) [Partial pressure] 39 mmHg Normal 36-46 [facility] Comment on above: Order Comment: Speci men Type: ARTERIAL BLOOD SPECIMENOrdering Facility: [facility] Address: [address] [place] [address] Performed By: #### A LLBG ####[facility] LABCLIA [id number] [place] [address] [place] Glucose [Mass/Vol] 228 mg/dL High 60-105 [facility] Comment on above: Order Comment: Speci men Type: ARTERIAL BLOOD SPECIMENOrdering Facility: [facility] Address: [address] [place] [address] Performed By: #### A LLBG ####[facility] LABCLIA [id number] [place] [address] [place] HCO3 (Bld) [Moles/Vol] 27 mmol/L High 22-26 [facility] Comment on above: Order Comment: Speci men Type: ARTERIAL BLOOD SPECIMENOrdering Facility: [facility] Address: [address] [place] [address] Performed By: #### A LLBG ####[facility] LABIA [id number] [place] [address] [place] Hematocrit (Bld) [Volume fraction] 31.5 % Low 39.0-51.0 [facility] Comment on above: Order Comment: Speci men Type: ARTERIAL BLOOD SPECIMENOrdering Facility: [facility] Address: [address] [place] [address] Performed By: #### A LLBG ####[facility] LABIA [id number] [place] [address] [place] Hemoglobin (Bld) [Mass/Vol] 10.2 g/dL Low 13.0-17.0 [facility] Comment on above: Order Comment: Speci men Type: ARTERIAL BLOOD SPECIMENOrdering Facility: [facility] Address: [address] [place] [address] Performed By: #### A LLBG ####[facility] LABIA [id number] [place] [address] [place] Lactate [Moles/Vol] 1.4 mmol/L Normal 0.5-2.2 [facility] Comment on above: Order Comment: Speci men Type: ARTERIAL BLOOD SPECIMENOrdering Facility: [facility] Address: [address] [place] [address] Performed By: #### A LLBG ####[facility] LABIA [id number] [place] [address] [place] Methemoglobin (Bld) [Mass fraction] 1.6 % High 0.0-1.5 [facility] Comment on above: Order Comment: Speci men Type: ARTERIAL BLOOD SPECIMENOrdering Facility: [facility] Address: [address] [place] [address] Performed By: #### A LLBG ####[facility] LABCLIA [id number] [address] [address] [place] Oxygen (Bld) [Partial pressure] 202 mm Hg High 85-95 [facility] Comment on above: Order Comment: Speci men Type: ARTERIAL BLOOD SPECIMENOrdering Facility: [facility] Address: [address] [place], [place] [id number] Performed By: #### A LLBG ####[facility] LABCLIA [id number] [place] [id number] [place] Oxygen adjusted to patient's actual temperature (Bld) [Partial pressure] 202 mmHg High 85-95 [facility] Comment on above: Order Comment: Speci men Type: ARTERIAL BLOOD SPECIMENOrdering Facility: [facility] Address: [address] [place] [address] Performed By: #### A LLBG ####[facility] LABCLIA [id number] [place] [address] [place] Oxyhemoglobin (BldA) [Mass fraction] 96 % Normal 95-98 [facility] Comment on above: Order Comment: Speci men Type: ARTERIAL BLOOD SPECIMENOrdering Facility: [facility] Address: [address] [place] [address] Performed By: #### A LLBG ####[facility] LABCLIA [id number] [place] [address] [place] pH (Bld) 7.45 [pH] Normal 7.35-7.45 [facility] Comment on above: Order Comment: Speci men Type: ARTERIAL BLOOD SPECIMENOrdering Facility: [facility] Address: [address] [place], [place] [id number] Performed By: #### A LLBG ####[facility] LABCLIA [id number] [place] [id number] [place] pH adjusted to patient's actual temperature (Bld) 7.45 Normal 7.35-7.45 [facility] Comment on above: Order Comment: Speci men Type: ARTERIAL BLOOD SPECIMENOrdering Facility: [facility] Address: [address] [place] [address] Performed By: #### A LLBG ####[facility] LABCLIA [id number] [place] [address] [place] Potassium [Moles/Vol] 5.0 mmol/L Normal 3.5-5.0 [facility] Comment on above: Order Comment: Speci men Type: ARTERIAL BLOOD SPECIMENOrdering Facility: [facility] Address: [address] [place] [address] Performed By: #### A LLBG ####[facility] LABIA [id number] [place] [address] [place] Sodium [Moles/Vol] 132 mmol/L Low 136-144 [facility] Comment on above: Order Comment: Speci men Type: ARTERIAL BLOOD SPECIMENOrdering Facility: [facility] Address: [address] [place] [address] Performed By: #### A LLBG ####[facility] LABCLIA [id number] [place] [address] [place] Base excess Calc (Bld) [Moles/Vol] 4 mmol/L High 0-2 [facility] Comment on above: Order Comment: Speci men Type: ARTERIAL BLOOD SPECIMENOrdering Facility: [facility] Address: [address] [place] [address] Performed By: #### A LLBG ####[facility] LABIA [id number] [place] [address] [place] Calcium.ionized (Bld) [Mass/Vol] 1.18 mmol/L Normal 1.08-1.30 [facility] Comment on above: Order Comment: Speci men Type: ARTERIAL BLOOD SPECIMENOrdering Facility: [facility] Address: [address] [place] [address] Performed By: #### A LLBG ####[facility] LABIA [id number] [place] [address] [place] Calcium.ionized adjusted to pH 7.4 (BldA) [Moles/Vol] 1.20 mmol/L Normal 1.08-1.30 [facility] Comment on above: Order Comment: Speci men Type: ARTERIAL BLOOD SPECIMENOrdering Facility: [facility] Address: [address] [place] [address] Performed By: #### A LLBG ####[facility] LABIA [id number] [place] [address] [place] Carboxyhemoglobin (BldA) [Mass fraction] 1.5 % Normal 0.0-2.0 [facility] Comment on above: Order Comment: Speci men Type: ARTERIAL BLOOD SPECIMENOrdering Facility: [facility] Address: [address] [place] [address] Result Comment: Carb oxyhemoglobin Reference Range for Smokers: 2.0-8.0% Performed By: #### A LLBG ####[facility] LABIA [id number] [place] [address] [place] CO2 (Bld) [Partial pressure] 41 mm Hg Normal 36-46 [facility] Comment on above: Order Comment: Speci men Type: ARTERIAL BLOOD SPECIMENOrdering Facility: [facility] Address: [address] [place] [address] Performed By: #### A LLBG ####[facility] LABIA [id number] [place] [address] [place] CO2 adjusted to patient's actual temperature (Bld) [Partial pressure] 41 mmHg Normal 36-46 [facility] Comment on above: Order Comment: Speci men Type: ARTERIAL BLOOD SPECIMENOrdering Facility: [facility] Address: [address] [place] [address] Performed By: #### A LLBG ####[facility] LABIA [id number] [place] [address] [place] Glucose [Mass/Vol] 219 mg/dL High 60-105 [facility] Comment on above: Order Comment: Speci men Type: ARTERIAL BLOOD SPECIMENOrdering Facility: [facility] Address: [address] [place] [address] Performed By: #### A LLBG ####[facility] LABCLIA [id number] [place] [address] [place] HCO3 (Bld) [Moles/Vol] 28 mmol/L High 22-26 [facility] Comment on above: Order Comment: Speci men Type: ARTERIAL BLOOD SPECIMENOrdering Facility: [facility] Address: [address] [place] [address] Performed By: #### A LLBG ####[facility] LABCLIA [id number] [place] [address] [place] Hematocrit (Bld) [Volume fraction] 33.1 % Low 39.0-51.0 [facility] Comment on above: Order Comment: Speci men Type: ARTERIAL BLOOD SPECIMENOrdering Facility: [facility] Address: [address] [place] [address] Performed By: #### A LLBG ####[facility] LABCLIA [id number] [place] [address] [place] Hemoglobin (Bld) [Mass/Vol] 10.7 g/dL Low 13.0-17.0 [facility] Comment on above: Order Comment: Speci men Type: ARTERIAL BLOOD SPECIMENOrdering Facility: [facility] Address: [address] [place] [address] Performed By: #### A LLBG ####[facility] LABCLIA [id number] [place] [address] [place] Lactate [Moles/Vol] 1.1 mmol/L Normal 0.5-2.2 [facility] Comment on above: Order Comment: Speci men Type: ARTERIAL BLOOD SPECIMENOrdering Facility: [facility] Address: [address] [place] [id number] Performed By: #### A LLBG ####[facility] LABCLIA [id number] [place] [address] [place] Methemoglobin (Bld) [Mass fraction] 1.6 % High 0.0-1.5 [facility] Comment on above: Order Comment: Speci men Type: ARTERIAL BLOOD SPECIMENOrdering Facility: [facility] Address: [address] [id number] Performed By: #### A LLBG ####[facility] LABCLIA [id number] [place] [address] [place] Oxygen (Bld) [Partial pressure] 277 mm Hg High 85-95 [facility] Comment on above: Order Comment: Speci men Type: ARTERIAL BLOOD SPECIMENOrdering Facility: [facility] Address: [address] [place] [address] Performed By: #### A LLBG ####[facility] LABCLIA [id number] [place] [address] [place] Oxygen adjusted to patient's actual temperature (Bld) [Partial pressure] 277 mmHg High 85-95 [facility] Comment on above: Order Comment: Speci men Type: ARTERIAL BLOOD SPECIMENOrdering Facility: [facility] Address: [address] [id number] Performed By: #### A LLBG ####[facility] LABCLIA [id number] [place] [id number] [place] Oxyhemoglobin (BldA) [Mass fraction] 97 % Normal 95-98 [facility] Comment on above: Order Comment: Speci men Type: ARTERIAL BLOOD SPECIMENOrdering Facility: [facility] Address: [address] [place], [place] [id number] Performed By: #### A LLBG ####[facility] LABCLIA [id number] [place] [address] [place] pH (Bld) 7.44 [pH] Normal 7.35-7.45 [facility] Comment on above: Order Comment: Speci men Type: ARTERIAL BLOOD SPECIMENOrdering Facility: [facility] Address: [address] [place] [address] Performed By: #### A LLBG ####[facility] LABCLIA [id number] [place] [address] [place] pH adjusted to patient's actual temperature (Bld) 7.44 Normal 7.35-7.45 [facility] Comment on above: Order Comment: Speci men Type: ARTERIAL BLOOD SPECIMENOrdering Facility: [facility] Address: [address] [place] [address] Performed By: #### A LLBG ####[facility] LABCLIA [id number] [place] [address] [place] Potassium [Moles/Vol] 4.8 mmol/L Normal 3.5-5.0 [facility] Comment on above: Order Comment: Speci men Type: ARTERIAL BLOOD SPECIMENOrdering Facility: [facility] Address: [address] [place] [address] Performed By: #### A LLBG ####[facility] LABCLIA [id number] [place] [address] [place] Sodium [Moles/Vol] 132 mmol/L Low 136-144 [facility] Comment on above: Order Comment: Speci men Type: ARTERIAL BLOOD SPECIMENOrdering Facility: [facility] Address: [address] [place] [address] Performed By: #### A LLBG ####[facility] LABCLIA [id number] [place] [address] [place] Base excess Calc (Bld) [Moles/Vol] 3 mmol/L High 0-2 [facility] Comment on above: Order Comment: Speci men Type: ARTERIAL BLOOD SPECIMENOrdering Facility: [facility] Address: [address] [place] [address] Performed By: #### A LLBG ####[facility] [id number] [place] [address] [place] Calcium.ionized (Bld) [Mass/Vol] 1.17 mmol/L Normal 1.08-1.30 [facility] Comment on above: Order Comment: Speci men Type: ARTERIAL BLOOD SPECIMENOrdering Facility: [facility] Address: [address] [place] [address] Performed By: #### A LLBG ####[facility] [id number] [place] [address] [place] Calcium.ionized adjusted to pH 7.4 (BldA) [Moles/Vol] 1.14 mmol/L Normal 1.08-1.30 [facility] Comment on above: Order Comment: Speci men Type: ARTERIAL BLOOD SPECIMENOrdering Facility: [facility] Address: [address] [place] [address] Performed By: #### A LLBG ####[facility] [id number] [place] [address] [place] Carboxyhemoglobin (BldA) [Mass fraction] 1.7 % Normal 0.0-2.0 [facility] Comment on above: Order Comment: Speci men Type: ARTERIAL BLOOD SPECIMENOrdering Facility: [facility] Address: [address] [place] [address] Result Comment: Carb oxyhemoglobin Reference Range for Smokers: 2.0-8.0% Performed By: #### A LLBG ####[facility] [id number] [place] [address] [place] CO2 (Bld) [Partial pressure] 51 mm Hg High 36-46 [facility] Comment on above: Order Comment: Speci men Type: ARTERIAL BLOOD SPECIMENOrdering Facility: [facility] Address: [address] [place] [address] Performed By: #### A LLBG ####[facility] LABCLIA [id number] [place] [address] [place] CO2 adjusted to patient's actual temperature (Bld) [Partial pressure] 51 mmHg High 36-46 [facility] Comment on above: Order Comment: Speci men Type: ARTERIAL BLOOD SPECIMENOrdering Facility: [facility] Address: [address] [place] [address] Performed By: #### A LLBG ####[facility] LABCLIA [id number] [place] [address] [place] Glucose [Mass/Vol] 185 mg/dL High 60-105 [facility] Comment on above: Order Comment: Speci men Type: ARTERIAL BLOOD SPECIMENOrdering Facility: [facility] Address: [address] [place] [address] Performed By: #### A LLBG ####[facility] LABCLIA [id number] [place] [address] [place] HCO3 (Bld) [Moles/Vol] 28 mmol/L High 22-26 [facility] Comment on above: Order Comment: Speci men Type: ARTERIAL BLOOD SPECIMENOrdering Facility: [facility] Address: [address] [place] [address] Performed By: #### A LLBG ####[facility] LABCLIA [id number] [place] [address] [place] Hematocrit (Bld) [Volume fraction] 33.0 % Low 39.0-51.0 [facility] Comment on above: Order Comment: Speci men Type: ARTERIAL BLOOD SPECIMENOrdering Facility: [facility] Address: [address] [place] [address] Performed By: #### A LLBG ####[facility] LABCLIA [id number] [place] [address] [place] Hemoglobin (Bld) [Mass/Vol] 10.7 g/dL Low 13.0-17.0 [facility] Comment on above: Order Comment: Speci men Type: ARTERIAL BLOOD SPECIMENOrdering Facility: [facility] Address: [address] [place] [address] Performed By: #### A LLBG ####[facility] LABCLIA [id number] [place] [address] [place] Lactate [Moles/Vol] 1.1 mmol/L Normal 0.5-2.2 [facility] Comment on above: Order Comment: Speci men Type: ARTERIAL BLOOD SPECIMENOrdering Facility: [facility] Address: [address] [place] [address] Performed By: #### A LLBG ####[facility] LABIA [id number] [place] [address] [place] Methemoglobin (Bld) [Mass fraction] 0.6 % Normal 0.0-1.5 [facility] Comment on above: Order Comment: Speci men Type: ARTERIAL BLOOD SPECIMENOrdering Facility: [facility] Address: [address] [place] [address] Performed By: #### A LLBG ####[facility] LABCLIA [id number] [place] [address] [place] Oxygen (Bld) [Partial pressure] 133 mm Hg High 85-95 [facility] Comment on above: Order Comment: Speci men Type: ARTERIAL BLOOD SPECIMENOrdering Facility: [facility] Address: [address] [place] [address] Performed By: #### A LLBG ####[facility] LABCLIA [id number] [place] [address] [place] Oxygen adjusted to patient's actual temperature (Bld) [Partial pressure] 133 mmHg High 85-95 [facility] Comment on above: Order Comment: Speci men Type: ARTERIAL BLOOD SPECIMENOrdering Facility: [facility] Address: [address] [place], [place] [id number] Performed By: #### A LLBG ####[facility] LABCLIA [id number] [place] [address] [place] Oxyhemoglobin (BldA) [Mass fraction] 97 % Normal 95-98 [facility] Comment on above: Order Comment: Speci men Type: ARTERIAL BLOOD SPECIMENOrdering Facility: [facility] Address: [address] [place] [address] Performed By: #### A LLBG ####[facility] LABCLIA [id number] [place] [address] [place] pH (Bld) 7.36 [pH] Normal 7.35-7.45 [facility] Comment on above: Order Comment: Speci men Type: ARTERIAL BLOOD SPECIMENOrdering Facility: [facility] Address: [address] [place] [address] Performed By: #### A LLBG ####[facility] LABCLIA [id number] [place] [address] [place] pH adjusted to patient's actual temperature (Bld) 7.36 Normal 7.35-7.45 [facility] Comment on above: Order Comment: Speci men Type: ARTERIAL BLOOD SPECIMENOrdering Facility: [facility] Address: [address] [place] [address] Performed By: #### A LLBG ####[facility] LABIA [id number] [place] [address] [place] Potassium [Moles/Vol] 4.1 mmol/L Normal 3.5-5.0 [facility] Comment on above: Order Comment: Speci men Type: ARTERIAL BLOOD SPECIMENOrdering Facility: [facility] Address: [address] [place] [address] Performed By: #### A LLBG ####[facility] LABIA [id number] [place] [address] [place] Sodium [Moles/Vol] 132 mmol/L Low 136-144 [facility] Comment on above: Order Comment: Speci men Type: ARTERIAL BLOOD SPECIMENOrdering Facility: [facility] Address: [address] [place] [address] Performed By: #### A LLBG ####[facility] LABCLIA [id number] [place] [address] [place] Activated partial thrombopla stin time (aPTT) in platelet poor plasma by coagulation aon 09-19-2023 aPTT Coag (PPP) [Time] 42.0 s High 23.0-32.4 [facility] CBC panel Auto (Bld)on 09-18 Erythrocyte distribution width (RBC) [Ratio] 15.8 % High 11.5-15.0 [facility] Comment on above: Order Comment: Speci men Type: BLOOD SPECIMENOrdering Facility: [facility] Address: [address] [place] [address] Performed By: #### 5 8410-2 ####[facility] LABCLIA [id number] [place] [address] [place] Hematocrit (Bld) [Volume fraction] 20.9 % Low 39.0-51.0 [facility] Comment on above: Order Comment: Speci men Type: BLOOD SPECIMENOrdering Facility: [facility] Address: [address] [place] [address] Performed By: #### 5 8410-2 ####[facility] LABCLIA [id number] [place] [address] [place] Hemoglobin (Bld) [Mass/Vol] 7.6 g/dL Low 13.0-17.0 [facility] Comment on above: Order Comment: Speci men Type: BLOOD SPECIMENOrdering Facility: [facility] Address: [address] [place] [address] Performed By: #### 5 8410-2 ####[facility] LABCLIA [id number] [place] [address] [place] MCH (RBC) [Entitic mass] 32.1 pg Normal 26.0-34.0 [facility] Comment on above: Order Comment: Speci men Type: BLOOD SPECIMENOrdering Facility: [facility] Address: [address] [place] [address] Performed By: #### 5 8410-2 ####[facility] LABIA [id number] [place] [address] [place] MCHC (RBC) [Mass/Vol] 36.4 g/dL High 30.5-36.0 [facility] Comment on above: Order Comment: Speci men Type: BLOOD SPECIMENOrdering Facility: [facility] Address: [address] [place] [address] Performed By: #### 5 8410-2 ####[facility] LABCLIA [id number] [place] [address] [place] MCV (RBC) [Entitic vol] 88.2 fL Normal 80.0-100.0 [facility] Comment on above: Order Comment: Speci men Type: BLOOD SPECIMENOrdering Facility: [facility] Address: [address] [place] [address] Performed By: #### 5 8410-2 ####[facility] LABIA [id number] [place] [address] [place] Nucleated RBC (Bld) [#/Vol] 10*3/uL Normal <0.01 [facility] Comment on above: Order Comment: Speci men Type: BLOOD SPECIMENOrdering Facility: [facility] Address: [address] [place] [address] Performed By: #### 5 8410-2 ####[facility] LABCLIA [id number] [place] [address] [place] Platelet mean volume (Bld) [Entitic vol] 9.9 fL Normal 9.0-12.7 [facility] Comment on above: Order Comment: Speci men Type: BLOOD SPECIMENOrdering Facility: [facility] Address: [address] [place] [address] Performed By: #### 5 8410-2 ####[facility] LABCLIA [id number] [place] [address] [place] Platelets (Bld) [#/Vol] 106 10*3/uL Low 150-400 [facility] Comment on above: Order Comment: Speci men Type: BLOOD SPECIMENOrdering Facility: [facility] Address: [address] [place] [address] Performed By: #### 5 8410-2 ####[facility] LABIA [id number] [place] [address] [place] RBC (Bld) [#/Vol] 2.37 10*6/uL Low 4.20-6.00 [facility] Comment on above: Order Comment: Speci men Type: BLOOD SPECIMENOrdering Facility: [facility] Address: [address] [place] [address] Performed By: #### 5 8410-2 ####[facility] LABIA [id number] [place] [address] [place] WBC (Bld) [#/Vol] 22.51 10*3/uL High 3.70-11.00 [facility] Comment on above: Order Comment: Speci men Type: BLOOD SPECIMENOrdering Facility: [facility] Address: [address] [place] [address] Performed By: #### 5 8410-2 ####[facility] LABIA [id number] [place] [address] [place] Erythrocyte distribution width (RBC) [Ratio] 16.2 % High 11.5-15.0 [facility] Comment on above: Order Comment: Speci men Type: BLOOD SPECIMENOrdering Facility: [facility] Address: [address] [place] [address] Performed By: #### 5 8410-2 ####[facility] LABIA [id number] [place] [address] [place] Hematocrit (Bld) [Volume fraction] 30.1 % Low 39.0-51.0 [facility] Comment on above: Order Comment: Speci men Type: BLOOD SPECIMENOrdering Facility: [facility] Address: [address] [place] [address] Performed By: #### 5 8410-2 ####[facility] LABIA [id number] [place] [address] [place] Hemoglobin (Bld) [Mass/Vol] 10.1 g/dL Low 13.0-17.0 [facility] Comment on above: Order Comment: Speci men Type: BLOOD SPECIMENOrdering Facility: [facility] Address: [address] [place] [address] Performed By: #### 5 8410-2 ####[facility] LABIA [id number] [place] [address] [place] MCH (RBC) [Entitic mass] 30.0 pg Normal 26.0-34.0 [facility] Comment on above: Order Comment: Speci men Type: BLOOD SPECIMENOrdering Facility: [facility] Address: [address] [place] [address] Performed By: #### 5 8410-2 ####[facility] LABIA [id number] [place] [address] [place] MCHC (RBC) [Mass/Vol] 33.6 g/dL Normal 30.5-36.0 [facility] Comment on above: Order Comment: Speci men Type: BLOOD SPECIMENOrdering Facility: [facility] Address: [address] [place] [address] Performed By: #### 5 8410-2 ####[facility] LABIA [id number] [place] [address] [place] MCV (RBC) [Entitic vol] 89.3 fL Normal 80.0-100.0 [facility] Comment on above: Order Comment: Speci men Type: BLOOD SPECIMENOrdering Facility: [facility] Address: [address] [place] [address] Performed By: #### 5 8410-2 ####[facility] LABCLIA [id number] [place] [address] [place] Nucleated RBC (Bld) [#/Vol] 10*3/uL Normal <0.01 [facility] Comment on above: Order Comment: Speci men Type: BLOOD SPECIMENOrdering Facility: [facility] Address: [address] [place] [address] Performed By: #### 5 8410-2 ####[facility] LABCLIA [id number] [place] [address] [place] Platelet mean volume (Bld) [Entitic vol] 10.6 fL Normal 9.0-12.7 [facility] Comment on above: Order Comment: Speci men Type: BLOOD SPECIMENOrdering Facility: [facility] Address: [address] [place] [address] Performed By: #### 5 8410-2 ####[facility] LABIA [id number] [place] [address] [place] Platelets (Bld) [#/Vol] 175 10*3/uL Normal 150-400 [facility] Comment on above: Order Comment: Speci men Type: BLOOD SPECIMENOrdering Facility: [facility] Address: [address] [place] [address] Performed By: #### 5 8410-2 ####[facility] LABCLIA [id number] [place] [address] [place] RBC (Bld) [#/Vol] 3.37 10*6/uL Low 4.20-6.00 [facility] Comment on above: Order Comment: Speci men Type: BLOOD SPECIMENOrdering Facility: [facility] Address: [address] [place] [address] Performed By: #### 5 8410-2 ####[facility] LABCLIA [id number] [address] [address] [place] WBC (Bld) [#/Vol] 7.26 10*3/uL Normal 3.70-11.00 [facility] Comment on above: Order Comment: Speci men Type: BLOOD SPECIMENOrdering Facility: [facility] Address: [address] [place] [address] Performed By: #### 5 8410-2 ####[facility] LABCLIA [id number] [place] [address] [place] CONSULT PROGon 09-19-2023 CONSULT PROG Normal [facility] Comprehensive metabolic 2000 panelon 09-19-2023 Albumin [Mass/Vol] 3.5 g/dL Low 3.9-4.9 [facility] Comment on above: Order Comment: Speci men Type: BLOOD SPECIMENOrdering Facility: [facility] Address: [address] [place] [address] Performed By: #### 1 9123-9, 19646-9 ####[facility] LABCLIA [id number] [place] [address] [place] ALP [Catalytic activity/Vol] 63 U/L Normal 38-113 [facility] Comment on above: Order Comment: Speci men Type: BLOOD SPECIMENOrdering Facility: [facility] Address: [address] [place] [address] Performed By: #### 1 9123-9, 24626-1 ####[facility] LABCLIA [id number] [place] [address] [place] ALT [Catalytic activity/Vol] 35 U/L Normal 10-54 [facility] Comment on above: Order Comment: Speci men Type: BLOOD SPECIMENOrdering Facility: [facility] Address: [address] [place] [address] Performed By: #### 1 9123-9, 80940-8 ####[facility] LABCLIA [id number] [place] [address] [place] Anion gap [Moles/Vol] 9 mmol/L Normal 8-15 [facility] Comment on above: Order Comment: Speci men Type: BLOOD SPECIMENOrdering Facility: [facility] Address: [address] [place] [address] Performed By: #### 1 9123-9, 14312-8 ####[facility] LABCLIA [id number] [place] [address] [place] AST [Catalytic activity/Vol] 20 U/L Normal 14-40 [facility] Comment on above: Order Comment: Speci men Type: BLOOD SPECIMENOrdering Facility: [facility] Address: [address] [place] [address] Performed By: #### 1 9123-9, 15296-6 ####[facility] LABCLIA [id number] [place] [address] [place] Bilirubin [Mass/Vol] 0.9 mg/dL Normal 0.2-1.3 [facility] Comment on above: Order Comment: Speci men Type: BLOOD SPECIMENOrdering Facility: [facility] Address: [address] [place] [address] Performed By: #### 1 9123-9, 21625-5 ####[facility] LABCLIA [id number] [place] [address] [place] Calcium [Mass/Vol] 9.0 mg/dL Normal 8.5-10.2 [facility] Comment on above: Order Comment: Speci men Type: BLOOD SPECIMENOrdering Facility: [facility] Address: [address] [place] [address] Performed By: #### 1 23-9, 68142-4 ####[facility] LABCLIA [id number] [address] [address] [place] Chloride [Moles/Vol] 96 mmol/L Low 98-107 [facility] Comment on above: Order Comment: Speci men Type: BLOOD SPECIMENOrdering Facility: [facility] Address: [address] [place] [address] Performed By: #### 1 9123-9, ####[facility] LABCLIA [id number] [place] [address] [place] CO2 [Moles/Vol] 29 mmol/L Normal 22-30 [facility] Comment on above: Order Comment: Speci men Type: BLOOD SPECIMENOrdering Facility: [facility] Address: [address] [place] [address] Performed By: #### 1 9123-9, ####[facility] LABCLIA [id number] [place] [address] [place] Creatinine [Mass/Vol] 1.03 mg/dL Normal 0.73-1.22 [facility] Comment on above: Order Comment: Speci men Type: BLOOD SPECIMENOrdering Facility: [facility] Address: [address] [place] [address] Performed By: #### 1 9123-9, ####[facility] LABIA [id number] [place] [address] [place] Creatinine and Glomerular filtration rate.predicted panel (S/P/Bld) 78 mL/min/1.73m??? Normal >=60 [facility] Comment on above: Order Comment: Speci men Type: BLOOD SPECIMENOrdering Facility: [facility] Address: [address] [place] [address] Result Comment: Aileen mated Glomerular Filtration Rate [...] accurately reflect actual GFR. Performed By: #### 1 9122-9, ####[facility] LABCLIA [id number] [address] [address] [place] Glucose [Mass/Vol] 146 mg/dL High 74-99 [facility] Comment on above: Order Comment: Ricardo ignacio Type: BLOOD SPECIMENOrdering Facility: [facility] Address: [address] [place] [id number] Result Comment: The [place] [employer] (ADA) provides guidance for cutoff values for fasting glucose and random glucose. The ADA defines fasting as no caloric intake for at least 8 hours. Fasting plasma glucose results between 100 to 125 mg/dL indicate increased risk for diabetes (prediabetes).Fasting plasma glucose results greater than or equal to 126 mg/dL meet the criteria for diagnosis of diabetes. In the absence of unequivocal hyperglycemia, results should be confirmed by repeat testing. In a patient with classic symptoms of hyperglycemia or hyperglycemic crisis, random plasma glucose results greater than or equal to 200 mg/dL meet the criteria for diagnosis of diabetes.Reference: Standards of Medical Care in Diabetes 2016, [place] [employer]. Diabetes Care. 2016.39(Suppl 1). Performed By: #### 1 9122-11, ####[facility] LABCLIA [id number] [address] [address] [place] Potassium [Moles/Vol] 4.1 mmol/L Normal 3.7-5.1 [facility] Comment on above: Order Comment: Ricardo ignacio Type: BLOOD SPECIMENOrdering Facility: [facility] Address: [address] [place] [address] Performed By: #### 1 9122-11, ####[facility] LABCLIA [id number] [address] [address] [place] Protein [Mass/Vol] 6.0 g/dL Low 6.3-8.0 [facility] Comment on above: Order Comment: Speci men Type: BLOOD SPECIMENOrdering Facility: [facility] Address: [address] [place] [address] Performed By: #### 1 9123-9, 62977-7 ####[facility] LABCLIA [id number] [address] [address] [place] Sodium [Moles/Vol] 134 mmol/L Low 136-144 [facility] Comment on above: Order Comment: Speci men Type: BLOOD SPECIMENOrdering Facility: [facility] Address: [address] [place] [address] Performed By: #### 1 9123-9, 99276-4 ####[facility] LABCLIA [id number] [place] [address] [place] Urea nitrogen [Mass/Vol] 22 mg/dL Normal 9-24 [facility] Comment on above: Order Comment: Speci men Type: BLOOD SPECIMENOrdering Facility: [facility] Address: [address] [place] [address] Performed By: #### 1 9123-9, ####[facility] LABCLIA [id number] [place] [address] [place] ECG COMPLETEon 09-19-2023 ECG COMPLETE Normal [facility] Erythrocyte distribution wid th Auto (RBC) [Ratio]on 09-19-2023 Erythrocyte distribution width (RBC) [Ratio] 15.8 % High 11.5-15.0 [facility] Fibrinogen PPP-mCncon 2023 Fibrinogen Coag (PPP) [Mass/Vol] 207 mg/dL Normal 200-400 [facility] Comment on above: Order Comment: Speci men Type: BLOOD SPECIMENOrdering Facility: [facility] Address: [address] [place] [address] Performed By: #### 3 255-7, 25584-6, 60959-3 ####[facility] LABCLIA [id number] [place] [address] [place] Fibrinogen Coag (PPP) [Mass/Vol] 253 mg/dL Normal 200-400 [facility] Comment on above: Order Comment: Speci men Type: BLOOD SPECIMENOrdering Facility: [facility] Address: [address] [place] [address] Performed By: #### 3 255-7 ####[facility] LABIA [id number] [place] [address] [place] Fibrinogen [Mass/volume] in Platelet poor plasma by Coagulation assayon 09-19-2023 Fibrinogen Coag (PPP) [Mass/Vol] 207 mg/dL 200-400 [facility] Gas + CO Pnl BldVon 09-19-19 Body temperature 98.6 [degF] Normal [facility] Comment on above: Order Comment: Speci men Type: VENOUS BLOOD SPECIMENOrdering Facility: [facility] Address: [address] [place] [address] Performed By: #### 2 4344-4 ####[facility] LABCLIA [id number] [address] Order Comment: Speci men Type: ARTERIAL BLOOD SPECIMENOrdering Facility: [facility] Address: [address] [place] [address] Performed By: #### A LLBG ####[facility] LABIA [id number] [address] [place] Calcium.ionized adjusted to pH 7.4 (BldA) [Moles/Vol] 1.17 mmol/L Normal 1.08-1.30 [facility] Comment on above: Order Comment: Speci men Type: VENOUS BLOOD SPECIMENOrdering Facility: [facility] Address: [address] [place] [address] Performed By: #### 2 4344-4 ####[facility] LABCLIA [id number] [address] [place] Order Comment: Speci men Type: ARTERIAL BLOOD SPECIMENOrdering Facility: [facility] Address: [address] [id number] Performed By: #### A LLBG ####[facility] LABCLIA [id number] [address] [address] [place] HCO3 (Bld) [Moles/Vol] 27 mmol/L High 22-26 [facility] Comment on above: Order Comment: Speci men Type: VENOUS BLOOD SPECIMENOrdering Facility: [facility] Address: [address] [place] [address] Performed By: #### 2 4344-4 ####[facility] LABCLIA [id number] [place] [address] [place] Order Comment: Speci men Type: ARTERIAL BLOOD SPECIMENOrdering Facility: [facility] Address: [address] [place] [address] Performed By: #### A LLBG ####[facility] LABCLIA [id number] [place] [address] [place] Methemoglobin (Bld) [Mass fraction] 1.5 % Normal 0.0-1.5 [facility] Comment on above: Order Comment: Speci men Type: VENOUS BLOOD SPECIMENOrdering Facility: [facility] Address: [address] [place], [place] [id number] Performed By: #### 2 4344-4 ####[facility] LABCLIA [id number] [place] [address] [place] Order Comment: Speci men Type: ARTERIAL BLOOD SPECIMENOrdering Facility: [facility] Address: [address] [place], [place] [phone] Performed By: #### A LLBG ####[facility] LABCLIA [id number] [place] [id number] [place] O2 THERAPY Ventilator Normal [facility] Comment on above: Order Comment: Speci men Type: VENOUS BLOOD SPECIMENOrdering Facility: [facility] Address: [address] [place] [address] Performed By: #### 2 4344-4 ####[facility] LABCLIA [id number] [address] [place] Order Comment: Speci men Type: ARTERIAL BLOOD SPECIMENOrdering Facility: [facility] Address: [address] [place] [address] Performed By: #### A LLBG ####[facility] LABCLIA [id number] [place] [address] [place] Body temperature 98.6 [degF] Normal [facility] Comment on above: Order Comment: Speci men Type: VENOUS BLOOD SPECIMENOrdering Facility: [facility] Address: [address] [place] [address] Performed By: #### 2 4344-4 ####[facility] LABCLIA [id number] [address] [place] Order Comment: Speci men Type: ARTERIAL BLOOD SPECIMENOrdering Facility: [facility] Address: [address] [place] [address] Performed By: #### A LLBG ####[facility] LABCLIA [id number] [place] [address] [place] HCO3 (Bld) [Moles/Vol] 28 mmol/L High 22-26 [facility] Comment on above: Order Comment: Speci men Type: VENOUS BLOOD SPECIMENOrdering Facility: [facility] Address: [address] [place] [address] Performed By: #### 2 4344-4 ####[facility] LABCLIA [id number] [address] [place] Order Comment: Speci men Type: ARTERIAL BLOOD SPECIMENOrdering Facility: [facility] Address: [address] [place] [address] Performed By: #### A LLBG ####[facility] LABCLIA [id number] [address] [address] [place] Methemoglobin (Bld) [Mass fraction] 2.2 % High 0.0-1.5 [facility] Comment on above: Order Comment: Speci men Type: VENOUS BLOOD SPECIMENOrdering Facility: [facility] Address: [address] [phone] Performed By: #### 2 4344-4 ####[facility] LABCLIA [id number] [address] [address] [place] Order Comment: Speci men Type: ARTERIAL BLOOD SPECIMENOrdering Facility: [facility] Address: [address] [phone] Performed By: #### A LLBG ####[facility] LABCLIA [id number] [place] [address] [place] O2 THERAPY Ventilator Normal [facility] Comment on above: Order Comment: Speci men Type: VENOUS BLOOD SPECIMENOrdering Facility: [facility] Address: [address] [phone] Performed By: #### 2 4344-4 ####[facility] LABCLIA [id number] [place] [id number] [place] Order Comment: Speci men Type: ARTERIAL BLOOD SPECIMENOrdering Facility: [facility] Address: [address] [phone] Performed By: #### A LLBG ####[facility] LABCLIA [id number] [place] [id number] [place] Body temperature 98.6 [degF] Normal [facility] Comment on above: Order Comment: Speci men Type: VENOUS BLOOD SPECIMENOrdering Facility: [facility] Address: [address] [phone] Performed By: #### 2 4344-4 ####[facility] LABCLIA [id number] [place] [address] [place] Order Comment: Speci men Type: ARTERIAL BLOOD SPECIMENOrdering Facility: [facility] Address: [address] [place] [address] Performed By: #### A LLBG ####[facility] LABCLIA [id number] [place] [address] [place] Calcium.ionized adjusted to pH 7.4 (BldA) [Moles/Vol] 1.14 mmol/L Normal 1.08-1.30 [facility] Comment on above: Order Comment: Speci men Type: VENOUS BLOOD SPECIMENOrdering Facility: [facility] Address: [address] [place] [address] Performed By: #### 2 4344-4 ####[facility] LABCLIA [id number] [place] [address] [place] Order Comment: Speci men Type: ARTERIAL BLOOD SPECIMENOrdering Facility: [facility] Address: [address] [place] [address] Performed By: #### A LLBG ####[facility] LABCLIA [id number] [place] [address] [place] O2 THERAPY Ventilator Normal [facility] Comment on above: Order Comment: Speci men Type: VENOUS BLOOD SPECIMENOrdering Facility: [facility] Address: [address] [place] [address] Performed By: #### 2 4344-4 ####[facility] LABCLIA [id number] [place] [address] [place] Order Comment: Speci men Type: ARTERIAL BLOOD SPECIMENOrdering Facility: [facility] Address: [address] [place] [address] Performed By: #### A LLBG ####[facility] LABCLIA [id number] [place] [address] [place] Glucose [Mass/Vol] 172 mg/dL High 60-105 [facility] Comment on above: Order Comment: Speci men Type: VENOUS BLOOD SPECIMENOrdering Facility: [facility] Address: [address] [place] [address] Performed By: #### 2 4344-4 ####[facility] LABCLIA [id number] [place] [address] [place] Order Comment: Speci men Type: ARTERIAL BLOOD SPECIMENOrdering Facility: [facility] Address: [address] [place] [address] Performed By: #### A LLBG ####[facility] LABCLIA [id number] [place] [address] [place] HCO3 (Bld) [Moles/Vol] 28 mmol/L High 22-26 [facility] Comment on above: Order Comment: Speci men Type: VENOUS BLOOD SPECIMENOrdering Facility: [facility] Address: [address] [place] [address] Performed By: #### 2 4344-4 ####[facility] LABCLIA [id number] [place] [address] [place] Order Comment: Speci men Type: ARTERIAL BLOOD SPECIMENOrdering Facility: [facility] Address: [address] [place] [address] Performed By: #### A LLBG ####[facility] LABCLIA [id number] [place] [address] [place] Gas and Carbon monoxide pane l (BldV)on 09-19-2023 Base excess Calc (BldV) [Moles/Vol] 1 mmol/L Normal 0-2 [facility] Comment on above: Order Comment: Speci men Type: VENOUS BLOOD SPECIMENOrdering Facility: [facility] Address: [address] [place] [address] Performed By: #### 2 4344-4 ####[facility] LABCLIA [id number] [place] [address] [place] Calcium.ionized (Bld) [Mass/Vol] 1.19 mmol/L Normal 1.08-1.30 [facility] Comment on above: Order Comment: Speci men Type: VENOUS BLOOD SPECIMENOrdering Facility: [facility] Address: [address] [place] [address] Performed By: #### 2 4344-4 ####[facility] LABIA [id number] [place] [address] [place] Calcium.ionized adjusted to pH 7.4 (BldA) [Moles/Vol] 1.15 mmol/L Normal 1.08-1.30 [facility] Comment on above: Order Comment: Speci men Type: VENOUS BLOOD SPECIMENOrdering Facility: [facility] Address: [address] [place] [address] Performed By: #### 2 4344-4 ####[facility] LABIA [id number] [address] [place] Carboxyhemoglobin (BldV) [Mass fraction] 0.6 % Normal 0.0-2.0 [facility] Comment on above: Order Comment: Speci men Type: VENOUS BLOOD SPECIMENOrdering Facility: [facility] Address: [address] [place] [address] Result Comment: Carb oxyhemoglobin Reference Range for Smokers: 2.0-8.0% Performed By: #### 2 4344-4 ####[facility] LABIA [id number] [place] [address] [place] CO2 (BldV) [Partial pressure] 51 mm[Hg] Normal 42-55 [facility] Comment on above: Order Comment: Speci men Type: VENOUS BLOOD SPECIMENOrdering Facility: [facility] Address: [address] [place] [address] Performed By: #### 2 4344-4 ####[facility] LABIA [id number] [place] [address] [place] Glucose [Mass/Vol] 187 mg/dL High 60-105 [facility] Comment on above: Order Comment: Speci men Type: VENOUS BLOOD SPECIMENOrdering Facility: [facility] Address: [address] [place] [address] Performed By: #### 2 4344-4 ####[facility] LABCLIA [id number] [place] [address] [place] HCO3 (Bld) [Moles/Vol] 27 mmol/L Normal 24-28 [facility] Comment on above: Order Comment: Speci men Type: VENOUS BLOOD SPECIMENOrdering Facility: [facility] Address: [address] [place] [address] Performed By: #### 2 4344-4 ####[facility] LABIA [id number] [place] [address] [place] Hematocrit (Bld) [Volume fraction] 30.4 % Low 39.0-51.0 [facility] Comment on above: Order Comment: Speci men Type: VENOUS BLOOD SPECIMENOrdering Facility: [facility] Address: [address] [place] [address] Performed By: #### 2 4344-4 ####[facility] LABIA [id number] [place] [address] [place] Hemoglobin (Bld) [Mass/Vol] 9.8 g/dL Low 13.0-17.0 [facility] Comment on above: Order Comment: Speci men Type: VENOUS BLOOD SPECIMENOrdering Facility: [facility] Address: [address] [place] [address] Performed By: #### 2 4344-4 ####[facility] LABIA [id number] [place] [address] [place] Lactate [Moles/Vol] 3.3 mmol/L High 0.5-2.2 [facility] Comment on above: Order Comment: Speci men Type: VENOUS BLOOD SPECIMENOrdering Facility: [facility] Address: [address] [place] [address] Performed By: #### 2 4344-4 ####[facility] LABCLIA [id number] [place] [address] [place] Methemoglobin (Bld) [Mass fraction] 2.2 % High 0.0-1.5 [facility] Comment on above: Order Comment: Speci men Type: VENOUS BLOOD SPECIMENOrdering Facility: [facility] Address: [address] [place] [address] Performed By: #### 2 4344-4 ####[facility] LABCLIA [id number] [place] [address] [place] Oxygen (BldV) [Partial pressure] 37 mm[Hg] Normal 35-45 [facility] Comment on above: Order Comment: Speci men Type: VENOUS BLOOD SPECIMENOrdering Facility: [facility] Address: [address] [place] [address] Performed By: #### 2 4344-4 ####[facility] LABCLIA [id number] [place] [address] [place] Oxygen saturation in Venous blood 64 % Normal 60-85 [facility] Comment on above: Order Comment: Speci men Type: VENOUS BLOOD SPECIMENOrdering Facility: [facility] Address: [address] [place] [address] Performed By: #### 2 4344-4 ####[facility] LABCLIA [id number] [place] [id number] [place] Oxyhemoglobin (BldV) [Mass fraction] 62 % Normal 60-85 [facility] Comment on above: Order Comment: Speci men Type: VENOUS BLOOD SPECIMENOrdering Facility: [facility] Address: [address] [place], [place] [id number] Performed By: #### 2 4344-4 ####[facility] LABCLIA [id number] [place] [id number] [place] pH (BldV) 7.35 [pH] Normal 7.32-7.42 [facility] Comment on above: Order Comment: Speci men Type: VENOUS BLOOD SPECIMENOrdering Facility: [facility] Address: [address] [place] [address] Performed By: #### 2 4344-4 ####[facility] LABCLIA [id number] [place] [address] [place] Potassium [Moles/Vol] 4.1 mmol/L Normal 3.5-5.0 [facility] Comment on above: Order Comment: Speci men Type: VENOUS BLOOD SPECIMENOrdering Facility: [facility] Address: [address] [place] [address] Performed By: #### 2 4344-4 ####[facility] LABCLIA [id number] [place] [address] [place] Sodium [Moles/Vol] 133 mmol/L Low 136-144 [facility] Comment on above: Order Comment: Speci men Type: VENOUS BLOOD SPECIMENOrdering Facility: [facility] Address: [address] [place] [address] Performed By: #### 2 4344-4 ####[facility] [facility]CL[facility] [id number] [place] [address] [place] Base excess Calc (BldV) [Moles/Vol] 0 mmol/L Normal 0-2 [facility] Comment on above: Order Comment: Speci men Type: VENOUS BLOOD SPECIMENOrdering Facility: [facility] Address: [address] [place] [address] Performed By: #### 2 4344-4 ####[facility] LABCLIA [id number] [place] [address] [place] Calcium.ionized (Bld) [Mass/Vol] 1.24 mmol/L Normal 1.08-1.30 [facility] Comment on above: Order Comment: Speci men Type: VENOUS BLOOD SPECIMENOrdering Facility: [facility] Address: [address] [place] [address] Performed By: #### 2 4344-4 ####[facility] LABCLIA [id number] [place] [address] [place] Carboxyhemoglobin (BldV) [Mass fraction] 0.8 % Normal 0.0-2.0 [facility] Comment on above: Order Comment: Speci men Type: VENOUS BLOOD SPECIMENOrdering Facility: [facility] Address: [address] [place] [address] Result Comment: Carb oxyhemoglobin Reference Range for Smokers: 2.0-8.0% Performed By: #### 2 4344-4 ####[facility] LABIA [id number] [place] [address] [place] CO2 (BldV) [Partial pressure] 58 mm[Hg] High 42-55 [facility] Comment on above: Order Comment: Speci men Type: VENOUS BLOOD SPECIMENOrdering Facility: [facility] Address: [address] [place] [address] Performed By: #### 2 4344-4 ####[facility] LABCLIA [id number] [place] [address] [place] Glucose [Mass/Vol] 202 mg/dL High 60-105 [facility] Comment on above: Order Comment: Speci men Type: VENOUS BLOOD SPECIMENOrdering Facility: [facility] Address: [address] [place] [address] Performed By: #### 2 4344-4 ####[facility] LABCLIA [id number] [place] [address] [place] Hematocrit (Bld) [Volume fraction] 30.0 % Low 39.0-51.0 [facility] Comment on above: Order Comment: Speci men Type: VENOUS BLOOD SPECIMENOrdering Facility: [facility] Address: [address] [place] [address] Performed By: #### 2 4344-4 ####[facility] LABCLIA [id number] [address] [address] [place] Hemoglobin (Bld) [Mass/Vol] 9.7 g/dL Low 13.0-17.0 [facility] Comment on above: Order Comment: Speci men Type: VENOUS BLOOD SPECIMENOrdering Facility: [facility] Address: [address] [place] [address] Performed By: #### 2 4344-4 ####[facility] LABCLIA [id number] [place] [address] [place] Lactate [Moles/Vol] 2.5 mmol/L High 0.5-2.2 [facility] Comment on above: Order Comment: Speci men Type: VENOUS BLOOD SPECIMENOrdering Facility: [facility] Address: [address] [place] [address] Performed By: #### 2 4344-4 ####[facility] LABCLIA [id number] [place] [address] [place] Oxygen (BldV) [Partial pressure] 41 mm[Hg] Normal 35-45 [facility] Comment on above: Order Comment: Speci men Type: VENOUS BLOOD SPECIMENOrdering Facility: [facility] Address: [address] [place] [address] Performed By: #### 2 4344-4 ####[facility] LABCLIA [id number] [place] [address] [place] Oxygen saturation in Venous blood 68 % Normal 60-85 [facility] Comment on above: Order Comment: Speci men Type: VENOUS BLOOD SPECIMENOrdering Facility: [facility] Address: [address] [place], [place] [id number] Performed By: #### 2 4344-4 ####[facility] LABCLIA [id number] [place] [id number] [place] Oxyhemoglobin (BldV) [Mass fraction] 66 % Normal 60-85 [facility] Comment on above: Order Comment: Speci men Type: VENOUS BLOOD SPECIMENOrdering Facility: [facility] Address: [address] [place] [address] Performed By: #### 2 4344-4 ####[facility] LABCLIA [id number] [address] [address] [place] pH (BldV) 7.29 [pH] Low 7.32-7.42 [facility] Comment on above: Order Comment: Speci men Type: VENOUS BLOOD SPECIMENOrdering Facility: [facility] Address: [address] [place] [address] Performed By: #### 2 4344-4 ####[facility] LABCLIA [id number] [place] [address] [place] Potassium [Moles/Vol] 4.2 mmol/L Normal 3.5-5.0 [facility] Comment on above: Order Comment: Speci men Type: VENOUS BLOOD SPECIMENOrdering Facility: [facility] Address: [address] [place] [address] Performed By: #### 2 4344-4 ####[facility] LABIA [id number] [place] [address] [place] Sodium [Moles/Vol] 136 mmol/L Normal 136-144 [facility] Comment on above: Order Comment: Speci men Type: VENOUS BLOOD SPECIMENOrdering Facility: [facility] Address: [address] [place] [address] Performed By: #### 2 4344-4 ####[facility] LABCLIA [id number] [place] [address] [place] Base excess Calc (BldV) [Moles/Vol] 1 mmol/L Normal 0-2 [facility] Comment on above: Order Comment: Speci men Type: VENOUS BLOOD SPECIMENOrdering Facility: [facility] Address: [address] [place] [address] Performed By: #### 2 4344-4 ####[facility] LABIA [id number] [place] [address] [place] Calcium.ionized (Bld) [Mass/Vol] 1.19 mmol/L Normal 1.08-1.30 [facility] Comment on above: Order Comment: Speci men Type: VENOUS BLOOD SPECIMENOrdering Facility: [facility] Address: [address] [place] [address] Performed By: #### 2 4344-4 ####[facility] LABIA [id number] [place] [address] [place] Calcium.ionized adjusted to pH 7.4 (BldA) [Moles/Vol] 1.14 mmol/L Normal 1.08-1.30 [facility] Comment on above: Order Comment: Speci men Type: VENOUS BLOOD SPECIMENOrdering Facility: [facility] Address: [address] [place] [address] Performed By: #### 2 4344-4 ####[facility] [id number] [place] [address] [place] Carboxyhemoglobin (BldV) [Mass fraction] 0.5 % Normal 0.0-2.0 [facility] Comment on above: Order Comment: Speci men Type: VENOUS BLOOD SPECIMENOrdering Facility: [facility] Address: [address] [place] [address] Result Comment: Carb oxyhemoglobin Reference Range for Smokers: 2.0-8.0% Performed By: #### 2 4344-4 ####[facility] LABIA [id number] [place] [address] [place] CO2 (BldV) [Partial pressure] 57 mm[Hg] High 42-55 [facility] Comment on above: Order Comment: Speci men Type: VENOUS BLOOD SPECIMENOrdering Facility: [facility] Address: [address] [place] [address] Performed By: #### 2 4344-4 ####[facility] LABCLIA [id number] [place] [address] [place] Glucose [Mass/Vol] 188 mg/dL High 60-105 [facility] Comment on above: Order Comment: Speci men Type: VENOUS BLOOD SPECIMENOrdering Facility: [facility] Address: [address] [place] [address] Performed By: #### 2 4344-4 ####[facility] LABIA [id number] [place] [address] [place] Hematocrit (Bld) [Volume fraction] 26.4 % Low 39.0-51.0 [facility] Comment on above: Order Comment: Speci men Type: VENOUS BLOOD SPECIMENOrdering Facility: [facility] Address: [address] [place] [address] Performed By: #### 2 4344-4 ####[facility] LABIA [id number] [place] [address] [place] Hemoglobin (Bld) [Mass/Vol] 8.5 g/dL Low 13.0-17.0 [facility] Comment on above: Order Comment: Speci men Type: VENOUS BLOOD SPECIMENOrdering Facility: [facility] Address: [address] [place] [address] Performed By: #### 2 4344-4 ####[facility] LABIA [id number] [place] [address] [place] Lactate [Moles/Vol] 2.1 mmol/L Normal 0.5-2.2 [facility] Comment on above: Order Comment: Speci men Type: VENOUS BLOOD SPECIMENOrdering Facility: [facility] Address: [address] [place] [address] Performed By: #### 2 4344-4 ####[facility] LABIA [id number] [place] [address] [place] Oxygen (BldV) [Partial pressure] 40 mm[Hg] Normal 35-45 [facility] Comment on above: Order Comment: Speci men Type: VENOUS BLOOD SPECIMENOrdering Facility: [facility] Address: [address] [place] [address] Performed By: #### 2 4344-4 ####[facility] LABCLIA [id number] [address] [address] [place] Oxygen saturation in Venous blood 68 % Normal 60-85 [facility] Comment on above: Order Comment: Speci men Type: VENOUS BLOOD SPECIMENOrdering Facility: [facility] Address: [address] [place] [address] Performed By: #### 2 4344-4 ####[facility] LABCLIA [id number] [place] [address] [place] Oxyhemoglobin (BldV) [Mass fraction] 67 % Normal 60-85 [facility] Comment on above: Order Comment: Speci men Type: VENOUS BLOOD SPECIMENOrdering Facility: [facility] Address: [address] [place] [address] Performed By: #### 2 4344-4 ####[facility] LABCLIA [id number] [place] [address] [place] pH (BldV) 7.31 [pH] Low 7.32-7.42 [facility] Comment on above: Order Comment: Speci men Type: VENOUS BLOOD SPECIMENOrdering Facility: [facility] Address: [address] [place] [address] Performed By: #### 2 4344-4 ####[facility] LABCLIA [id number] [place] [address] [place] Potassium [Moles/Vol] 4.0 mmol/L Normal 3.5-5.0 [facility] Comment on above: Order Comment: Speci men Type: VENOUS BLOOD SPECIMENOrdering Facility: [facility] Address: [address] [place] [address] Performed By: #### 2 4344-4 ####[facility] LABIA [id number] [place] [address] [place] Sodium [Moles/Vol] 135 mmol/L Low 136-144 [facility] Comment on above: Order Comment: Speci men Type: VENOUS BLOOD SPECIMENOrdering Facility: [facility] Address: [address] [place] [address] Performed By: #### 2 4344-4 ####[facility] LABIA [id number] [place] [address] [place] Base excess Calc (BldV) [Moles/Vol] 3 mmol/L High 0-2 [facility] Comment on above: Order Comment: Speci men Type: VENOUS BLOOD SPECIMENOrdering Facility: [facility] Address: [address] [place] [address] Performed By: #### 2 4344-4 ####[facility] [id number] [place] [address] [place] Calcium.ionized (Bld) [Mass/Vol] 1.17 mmol/L Normal 1.08-1.30 [facility] Comment on above: Order Comment: Speci men Type: VENOUS BLOOD SPECIMENOrdering Facility: [facility] Address: [address] [place] [address] Performed By: #### 2 4344-4 ####[facility] LABIA [id number] [place] [address] [place] Calcium.ionized adjusted to pH 7.4 (BldA) [Moles/Vol] 1.13 mmol/L Normal 1.08-1.30 [facility] Comment on above: Order Comment: Speci men Type: VENOUS BLOOD SPECIMENOrdering Facility: [facility] Address: [address] [place] [address] Performed By: #### 2 4344-4 ####[facility] LABIA [id number] [place] [address] [place] Carboxyhemoglobin (BldV) [Mass fraction] 0.0 % Normal 0.0-2.0 [facility] Comment on above: Order Comment: Speci men Type: VENOUS BLOOD SPECIMENOrdering Facility: [facility] Address: [address] [place] [address] Result Comment: Carb oxyhemoglobin Reference Range for Smokers: 2.0-8.0% Performed By: #### 2 4344-4 ####[facility] LABCLIA [id number] [place] [address] [place] CO2 (BldV) [Partial pressure] 56 mm[Hg] High 42-55 [facility] Comment on above: Order Comment: Speci men Type: VENOUS BLOOD SPECIMENOrdering Facility: [facility] Address: [address] [place] [address] Performed By: #### 2 4344-4 ####[facility] LABCLIA [id number] [place] [address] [place] Glucose [Mass/Vol] 162 mg/dL High 60-105 [facility] Comment on above: Order Comment: Speci men Type: VENOUS BLOOD SPECIMENOrdering Facility: [facility] Address: [address] [place] [address] Performed By: #### 2 4344-4 ####[facility] LABCLIA [id number] [place] [address] [place] HCO3 (Bld) [Moles/Vol] 29 mmol/L High 24-28 [facility] Comment on above: Order Comment: Speci men Type: VENOUS BLOOD SPECIMENOrdering Facility: [facility] Address: [address] [place] [address] Performed By: #### 2 4344-4 ####[facility] LABCLIA [id number] [place] [address] [place] Hematocrit (Bld) [Volume fraction] 28.0 % Low 39.0-51.0 [facility] Comment on above: Order Comment: Speci men Type: VENOUS BLOOD SPECIMENOrdering Facility: [facility] Address: [address] [place] [address] Performed By: #### 2 4344-4 ####[facility] LABCLIA [id number] [address] [address] [place] Hemoglobin (Bld) [Mass/Vol] 9.0 g/dL Low 13.0-17.0 [facility] Comment on above: Order Comment: Speci men Type: VENOUS BLOOD SPECIMENOrdering Facility: [facility] Address: [address] [place] [address] Performed By: #### 2 4344-4 ####[facility] LABCLIA [id number] [place] [address] [place] Lactate [Moles/Vol] 2.6 mmol/L High 0.5-2.2 [facility] Comment on above: Order Comment: Speci men Type: VENOUS BLOOD SPECIMENOrdering Facility: [facility] Address: [address] [place] [address] Performed By: #### 2 4344-4 ####[facility] LABIA [id number] [place] [address] [place] Methemoglobin (Bld) [Mass fraction] 2.6 % High 0.0-1.5 [facility] Comment on above: Order Comment: Speci men Type: VENOUS BLOOD SPECIMENOrdering Facility: [facility] Address: [address] [place] [address] Performed By: #### 2 4344-4 ####[facility] LABCLIA [id number] [place] [address] [place] Oxygen (BldV) [Partial pressure] 36 mm[Hg] Normal 35-45 [facility] Comment on above: Order Comment: Speci men Type: VENOUS BLOOD SPECIMENOrdering Facility: [facility] Address: [address] [place] [address] Performed By: #### 2 4344-4 ####[facility] LABCLIA [id number] [address] [address] [place] Oxygen saturation in Venous blood 61 % Normal 60-85 [facility] Comment on above: Order Comment: Speci men Type: VENOUS BLOOD SPECIMENOrdering Facility: [facility] Address: [address] [place] [address] Performed By: #### 2 4344-4 ####[facility] LABCLIA [id number] [address] [address] [place] Oxyhemoglobin (BldV) [Mass fraction] 59 % Low 60-85 [facility] Comment on above: Order Comment: Speci men Type: VENOUS BLOOD SPECIMENOrdering Facility: [facility] Address: [address] [place] [address] Performed By: #### 2 4344-4 ####[facility] LABCLIA [id number] [place] [address] [place] pH (BldV) 7.34 [pH] Normal 7.32-7.42 [facility] Comment on above: Order Comment: Speci men Type: VENOUS BLOOD SPECIMENOrdering Facility: [facility] Address: [address] [place] [address] Performed By: #### 2 4344-4 ####[facility] LABCLIA [id number] [place] [address] [place] Potassium [Moles/Vol] 4.1 mmol/L Normal 3.5-5.0 [facility] Comment on above: Order Comment: Speci men Type: VENOUS BLOOD SPECIMENOrdering Facility: [facility] Address: [address] [place], [place] [address] Performed By: #### 2 4344-4 ####[facility] LABCLIA [id number] [place] [address] [place] Sodium [Moles/Vol] 134 mmol/L Low 136-144 [facility] Comment on above: Order Comment: Speci men Type: VENOUS BLOOD SPECIMENOrdering Facility: [facility] Address: [address] [place] [address] Performed By: #### 2 4344-4 ####[facility] LABIA [id number] [place] [address] [place] Base excess Calc (BldV) [Moles/Vol] 2 mmol/L Normal 0-2 [facility] Comment on above: Order Comment: Speci men Type: VENOUS BLOOD SPECIMENOrdering Facility: [facility] Address: [address] [place] [address] Performed By: #### 2 4344-4 ####[facility] LABIA [id number] [place] [address] [place] Calcium.ionized (Bld) [Mass/Vol] 1.18 mmol/L Normal 1.08-1.30 [facility] Comment on above: Order Comment: Speci men Type: VENOUS BLOOD SPECIMENOrdering Facility: [facility] Address: [address] [place] [address] Performed By: #### 2 4344-4 ####[facility] LABIA [id number] [place] [address] [place] Carboxyhemoglobin (BldV) [Mass fraction] <0.0 Low 0.0-2.0 [facility] Comment on above: Order Comment: Speci men Type: VENOUS BLOOD SPECIMENOrdering Facility: [facility] Address: [address] [place] [address] Result Comment: Carb oxyhemoglobin Reference Range for Smokers: 2.0-8.0% Performed By: #### 2 4344-4 ####[facility] LABIA [id number] [place] [address] [place] CO2 (BldV) [Partial pressure] 53 mm[Hg] Normal 42-55 [facility] Comment on above: Order Comment: Speci men Type: VENOUS BLOOD SPECIMENOrdering Facility: [facility] Address: [address] [place] [address] Performed By: #### 2 4344-4 ####[facility] LABCLIA [id number] [place] [id number] [place] Glucose [Mass/Vol] 145 mg/dL High 60-105 [facility] Comment on above: Order Comment: Speci men Type: VENOUS BLOOD SPECIMENOrdering Facility: [facility] Address: [address] [place] [address] Performed By: #### 2 4344-4 ####[facility] LABCLIA [id number] [place] [address] [place] HCO3 (Bld) [Moles/Vol] 28 mmol/L Normal 24-28 [facility] Comment on above: Order Comment: Speci men Type: VENOUS BLOOD SPECIMENOrdering Facility: [facility] Address: [address] [place] [address] Performed By: #### 2 4344-4 ####[facility] LABCLIA [id number] [place] [address] [place] Hematocrit (Bld) [Volume fraction] 24.3 % Low 39.0-51.0 [facility] Comment on above: Order Comment: Speci men Type: VENOUS BLOOD SPECIMENOrdering Facility: [facility] Address: [address] [place], [place] [address] Performed By: #### 2 4344-4 ####[facility] LABCLIA [id number] [place] [id number] [place] Hemoglobin (Bld) [Mass/Vol] 7.8 g/dL Low 13.0-17.0 [facility] Comment on above: Order Comment: Speci men Type: VENOUS BLOOD SPECIMENOrdering Facility: [facility] Address: [address] [place], [place] [address] Performed By: #### 2 4344-4 ####[facility] LABCLIA [id number] [place] [id number] [place] Lactate [Moles/Vol] 3.8 mmol/L High 0.5-2.2 [facility] Comment on above: Order Comment: Speci men Type: VENOUS BLOOD SPECIMENOrdering Facility: [facility] Address: [address] [place] [address] Performed By: #### 2 4344-4 ####[facility] LABIA [id number] [place] [address] [place] Methemoglobin (Bld) [Mass fraction] 2.7 % High 0.0-1.5 [facility] Comment on above: Order Comment: Speci men Type: VENOUS BLOOD SPECIMENOrdering Facility: [facility] Address: [address] [place] [address] Performed By: #### 2 4344-4 ####[facility] LABIA [id number] [place] [address] [place] Oxygen (BldV) [Partial pressure] 34 mm[Hg] Low 35-45 [facility] Comment on above: Order Comment: Speci men Type: VENOUS BLOOD SPECIMENOrdering Facility: [facility] Address: [address] [place] [address] Performed By: #### 2 4344-4 ####[facility] LABIA [id number] [place] [id number] [place] Oxygen saturation in Venous blood 53 % Low 60-85 [facility] Comment on above: Order Comment: Speci men Type: VENOUS BLOOD SPECIMENOrdering Facility: [facility] Address: [address] [place], [place] [id number] Performed By: #### 2 4344-4 ####[facility] LABIA [id number] [address] [address] [place] Oxyhemoglobin (BldV) [Mass fraction] 52 % Low 60-85 [facility] Comment on above: Order Comment: Speci men Type: VENOUS BLOOD SPECIMENOrdering Facility: [facility] Address: [address] [place] [address] Performed By: #### 2 4344-4 ####[facility] LABCLIA [id number] [place] [address] [place] pH (BldV) 7.34 [pH] Normal 7.32-7.42 [facility] Comment on above: Order Comment: Speci men Type: VENOUS BLOOD SPECIMENOrdering Facility: [facility] Address: [address] [place] [address] Performed By: #### 2 4344-4 ####[facility] LABIA [id number] [place] [address] [place] Potassium [Moles/Vol] 3.8 mmol/L Normal 3.5-5.0 [facility] Comment on above: Order Comment: Speci men Type: VENOUS BLOOD SPECIMENOrdering Facility: [facility] Address: [address] [place] [address] Performed By: #### 2 4344-4 ####[facility] LABIA [id number] [place] [address] [place] Sodium [Moles/Vol] 134 mmol/L Low 136-144 [facility] Comment on above: Order Comment: Speci men Type: VENOUS BLOOD SPECIMENOrdering Facility: [facility] Address: [address] [place] [address] Performed By: #### 2 4344-4 ####[facility] LABCLIA [id number] [place] [address] [place] Base excess Calc (BldV) [Moles/Vol] 4 mmol/L High 0-2 [facility] Comment on above: Order Comment: Speci men Type: VENOUS BLOOD SPECIMENOrdering Facility: [facility] Address: [address] [place] [address] Performed By: #### 2 4344-4 ####[facility] LABIA [id number] [place] [address] [place] Calcium.ionized (Bld) [Mass/Vol] 1.27 mmol/L Normal 1.08-1.30 [facility] Comment on above: Order Comment: Speci men Type: VENOUS BLOOD SPECIMENOrdering Facility: [facility] Address: [address] [place] [address] Performed By: #### 2 4344-4 ####[facility] LABIA [id number] [place] [address] [place] Calcium.ionized adjusted to pH 7.4 (BldA) [Moles/Vol] 1.27 mmol/L Normal 1.08-1.30 [facility] Comment on above: Order Comment: Speci men Type: VENOUS BLOOD SPECIMENOrdering Facility: [facility] Address: [address] [place] [address] Performed By: #### 2 4344-4 ####[facility] [id number] [place] [address] [place] Carboxyhemoglobin (BldV) [Mass fraction] 2.2 % High 0.0-2.0 [facility] Comment on above: Order Comment: Speci men Type: VENOUS BLOOD SPECIMENOrdering Facility: [facility] Address: [address] [place] [address] Result Comment: Carb oxyhemoglobin Reference Range for Smokers: 2.0-8.0% Performed By: #### 2 4344-4 ####[facility] [id number] [place] [address] [place] CO2 (BldV) [Partial pressure] 46 mm[Hg] Normal 42-55 [facility] Comment on above: Order Comment: Speci men Type: VENOUS BLOOD SPECIMENOrdering Facility: [facility] Address: [address] [place] [address] Performed By: #### 2 4344-4 ####[facility] LABCLIA [id number] [place] [address] [place] CO2 adjusted to patient's actual temperature (BldV) [Partial pressure] 46 mmHg Normal 42-55 [facility] Comment on above: Order Comment: Speci men Type: VENOUS BLOOD SPECIMENOrdering Facility: [facility] Address: [address] [place] [address] Performed By: #### 2 4344-4 ####[facility] LABCLIA [id number] [place] [address] [place] Hematocrit (Bld) [Volume fraction] 26.3 % Low 39.0-51.0 [facility] Comment on above: Order Comment: Speci men Type: VENOUS BLOOD SPECIMENOrdering Facility: [facility] Address: [address] [place] [address] Performed By: #### 2 4344-4 ####[facility] LABIA [id number] [place] [address] [place] Hemoglobin (Bld) [Mass/Vol] 8.5 g/dL Low 13.0-17.0 [facility] Comment on above: Order Comment: Speci men Type: VENOUS BLOOD SPECIMENOrdering Facility: [facility] Address: [address] [place] [address] Performed By: #### 2 4344-4 ####[facility] LABIA [id number] [place] [address] [place] Lactate [Moles/Vol] 2.0 mmol/L Normal 0.5-2.2 [facility] Comment on above: Order Comment: Speci men Type: VENOUS BLOOD SPECIMENOrdering Facility: [facility] Address: [address] [place] [address] Performed By: #### 2 4344-4 ####[facility] LABIA [id number] [place] [address] [place] Methemoglobin (Bld) [Mass fraction] 1.0 % Normal 0.0-1.5 [facility] Comment on above: Order Comment: Speci men Type: VENOUS BLOOD SPECIMENOrdering Facility: [facility] Address: [address] [place] [id number] Performed By: #### 2 4344-4 ####[facility] LABCLIA [id number] [address] [address] [place] Oxygen (BldV) [Partial pressure] 47 mm[Hg] High 35-45 [facility] Comment on above: Order Comment: Speci men Type: VENOUS BLOOD SPECIMENOrdering Facility: [facility] Address: [address] [place] [address] Performed By: #### 2 4344-4 ####[facility] LABCLIA [id number] [address] [address] [place] Oxygen adjusted to patient's actual temperature (BldV) [Partial pressure] 47 mmHg High 35-45 [facility] Comment on above: Order Comment: Speci men Type: VENOUS BLOOD SPECIMENOrdering Facility: [facility] Address: [address] [place] [address] Performed By: #### 2 4344-4 ####[facility] LABCLIA [id number] [address] [address] [place] Oxygen saturation in Venous blood 82 % Normal 60-85 [facility] Comment on above: Order Comment: Speci men Type: VENOUS BLOOD SPECIMENOrdering Facility: [facility] Address: [address] [place] [address] Performed By: #### 2 4344-4 ####[facility] LABCLIA [id number] [address] [address] [place] Oxyhemoglobin (BldV) [Mass fraction] 80 % Normal 60-85 [facility] Comment on above: Order Comment: Speci men Type: VENOUS BLOOD SPECIMENOrdering Facility: [facility] Address: [address] [place], [place] [address] Performed By: #### 2 4344-4 ####[facility] LABCLIA [id number] [place] [address] [place] pH (BldV) 7.41 [pH] Normal 7.32-7.42 [facility] Comment on above: Order Comment: Speci men Type: VENOUS BLOOD SPECIMENOrdering Facility: [facility] Address: [address] [place] [address] Performed By: #### 2 4344-4 ####[facility] LABCLIA [id number] [place] [address] [place] pH adjusted to patient's actual temperature (BldV) 7.41 Normal 7.32-7.42 [facility] Comment on above: Order Comment: Speci men Type: VENOUS BLOOD SPECIMENOrdering Facility: [facility] Address: [address] [place] [address] Performed By: #### 2 4344-4 ####[facility] LABIA [id number] [place] [address] [place] Potassium [Moles/Vol] 4.4 mmol/L Normal 3.5-5.0 [facility] Comment on above: Order Comment: Speci men Type: VENOUS BLOOD SPECIMENOrdering Facility: [facility] Address: [address] [place] [address] Performed By: #### 2 4344-4 ####[facility] LABIA [id number] [place] [id number] [place] Sodium [Moles/Vol] 141 mmol/L Normal 136-144 [facility] Comment on above: Order Comment: Speci men Type: VENOUS BLOOD SPECIMENOrdering Facility: [facility] Address: [address] [place] [address] Performed By: #### 2 4344-4 ####[facility] LABIA [id number] [place] [id number] [place] HCV RNA GALEN+probe Qnon 09-18 HBV surface Ag Ql (S) Negative Normal Negative [facility] Comment on above: Order Comment: Speci men Type: BLOOD SPECIMENOrdering Facility: [facility] Address: [place] [address] Performed By: #### 1 1011-4 ####[facility] LABCLIA [id number] [place] [address] [place] HCV Ab Ql (S) Negative Normal Negative [facility] Comment on above: Order Comment: Speci men Type: BLOOD SPECIMENOrdering Facility: [facility] Address: [place] [address] Result Comment: The result suggests no evidence of active infection with Hepatitis C virus. Should recent infection be suspected, repeat testing may be considered 4-6 weeks after this draw. Performed By: #### 1 1011-4 ####[facility] LABCLIA [id number] [place] [address] [place] HIV 1 and 2 Ab IA.rapid Nom (S/P/Bld) Normal [facility] Comment on above: Order Comment: Speci men Type: BLOOD SPECIMENOrdering Facility: [facility] Address: [place] [address] Result Comment: Test not indicated. Performed By: #### 1 1011-4 ####[facility] LABCLIA [id number] [place] [address] [place] HIV 1+2 Ab+HIV1 p24 Ag IA Ql Non-Reactive Normal Nonreactive [facility] Comment on above: Order Comment: Speci men Type: BLOOD SPECIMENOrdering Facility: [facility] Address: [place] [address] Performed By: #### 1 1011-4 ####[facility] LABCLIA [id number] [place] [address] [place] HIV immunoassay testing algorithm interpretation (S/P/Bld) [Interp] Normal [facility] Comment on above: Order Comment: Speci men Type: BLOOD SPECIMENOrdering Facility: [facility] Address: [place] [address] Result Comment: No e vidence of HIV-1 or HIV-2 infection. Should recent infection be suspected, repeat testing may be considered 2-3 weeks after this draw.[place] Rev. Code 3701.243(E): This information has been disclosed to you from confidential records protected from disclosure by state law. ???You shall make no further disclosure of this information without the specific, written, and informed release of the individual to whom it pertains or as otherwise permitted by state law. A general authorization for the release of medical or other information is not sufficient for the purpose of the release of HIV test results or diagnoses. Performed By: #### 1 1011-4 ####[facility] LABCLIA [id number] [facility] [id number] [address] [place] HIV 1 and HIV-2 antibody ass ay with HIV-1 p24 antigen detectionon 09-19-2023 HIV 1+2 Ab+HIV1 p24 Ag IA Ql Non-Reactive Nonreactive [facility] HIV1+2 Ab Ser Qlon HIV 1+2 Ab Ql (S) Negative Normal Non-Reacti ve : Negative for both HIV1 and HIV2 antibodies. [facility] Comment on above: Order Comment: Speci men Type: BLOOD SPECIMENOrdering Facility: [facility] Address: [place] [address] Result Comment: A no n-reactive result does not preclude the possibility of exposure to HIV or infection with HIV. An antibody response to recent exposure may take several weeks to reach detectable levels with this assay.Performed by the [facility] Rapid HIV-1/2 Antibody Test.HIV Information: [place] Rev. Code 3701.243(E):This information has been disclosed to you from confidential records protected from disclosure by state law. You shall make no further disclosure of this information without the specific, written, and informed release of the individual to whom it pertains, or as otherwise permitted by state law. A general authorization for the release of medical or other information is not sufficient for the purpose of the release of HIV test results or diagnoses. Performed By: #### 7 918-6 ####[facility] LABCLIA [id number] [place] [address] [place] Hematocrit Auto (Bld) [Volum e fraction]on 09-19-2023 Hematocrit (Bld) [Volume fraction] 30.4 % Low 39.0-51.0 [facility] Hemoglobin [Mass/volume] in Bloodon 09-19-2023 Hemoglobin (Bld) [Mass/Vol] 9.8 g/dL Low 13.0-17.0 [facility] Hepatitis B virus surface Ag [Presence] in Serum or Plasma by Immunoassayon 09-19-2023 HBV surface Ag IA Ql Negative Negative [facility] INR in Platelet poor plasma by Coagulation assayon 09-19-2023 INR Coag (PPP) [Relative time] 1.5 {INR} High 0.9-1.3 [facility] INTRAOPERATIVE ECHO Kori 0 09-19-2023 INTRAOPERATIVE ECHO POST Normal [facility] INTRAOPERATIVE ECHO PREon INTRAOPERATIVE ECHO PRE Normal [facility] Leukocytes [#/volume] correc leticia for nucleated erythrocytes in Blood by Automated counon 09-19-2023 WBC corrected for nucl RBC Auto (Bld) [#/Vol] 22.51 k/uL High 3.70-11.00 [facility] MCH Auto (RBC) [Entitic mass ]on 09-19-2023 MCH (RBC) [Entitic mass] 32.1 pg 26.0-34.0 [facility] MCHC Auto (RBC) [Mass/Vol]on 09-19-2023 MCHC (RBC) [Mass/Vol] 36.4 g/dL High 30.5-36.0 [facility] MCV Auto (RBC) [Entitic vol] on 09-19-2023 MCV (RBC) [Entitic vol] 88.2 fL 80.0-100.0 [facility] Magnesium SerPl-mCncon 09-18 Magnesium [Mass/Vol] 2.1 mg/dL Normal 1.7-2.3 [facility] Comment on above: Order Comment: Speci men Type: BLOOD SPECIMENOrdering Facility: [facility] Address: [address] [place] [address] Performed By: #### 1 9123-9, 95580-8 ####[facility] LABCLIA [id number] [address] [id number] [address] [place] No Panel Informationon 09-18 26 mmol/L 22-26 [facility] 1 mmol/L 0-2 [facility] 1.1 % 0.0-2.0 [facility] 51 mm[Hg] 42-55 [facility] 0.6 % 0.0-2.0 [facility] 187 mg/dL High 60-105 [facility] 2.2 % High 0.0-1.5 [facility] 98 % 95-98 [facility] 37 mm[Hg] 35-45 [facility] 64 % 60-85 [facility] 62 % 60-85 [facility] 7.35 7.32-7.42 [facility] 133 mmol/L Low 136-144 [facility] 2 mmol/L 0-2 [facility] 133 mm Hg High 85-95 [facility] 4.1 mmol/L 3.5-5.0 [facility] 42 mm Hg 36-46 [facility] 7.40 7.35-7.45 [facility] 27 mmol/L 24-28 [facility] 3.3 mmol/L High 0.5-2.2 [facility] 1.15 mmol/L 1.08-1.30 [facility] Ventilator [facility] 37.0 C [facility] 418 mm[Hg] >300 [facility] 40 % [facility] Not detected Not Detected [facility] 304 mm[Hg] High 85-95 [facility] 39 mm[Hg] 36-46 [facility] 7.42 7.35-7.45 [facility] 3.6 % 0.0-8.0 [facility] 63.4 degrees 47.0-74.0 [facility] 49.2 mm Low 51.0-75.0 [facility] 5.9 minutes 4.0-10.0 [facility] -1.5 <4.6-3.2 [facility] See comment [facility] 47 mm[Hg] High 35-45 [facility] 7.41 7.32-7.42 [facility] 46 mm[Hg] 42-55 [facility] See comment [facility] 35 U/L 10-54 [facility] 2.1 mg/dL 1.7-2.3 [facility] 3.5 g/dL Low 3.9-4.9 [facility] 20 U/L 14-40 [facility] 0.9 mg/dL 0.2-1.3 [facility] 29 mmol/L 22-30 [facility] 96 mmol/L Low 98-107 [facility] 1.03 mg/dL 0.73-1.22 [facility] 22 mg/dL 9-24 [facility] 63 U/L 38-113 [facility] 9.0 mg/dL 8.5-10.2 [facility] 78 mL/min/1.73m??? >=60 [facility] Nucleated RBC Auto (Bld) [#/ Vol]on 09-19-2023 Nucleated RBC (Bld) [#/Vol] 10*3/uL <0.01 [facility] OPERATIVE NOon 09-19-2023 OPERATIVE NO Normal [facility] PT EDon 09-19-2023 PT ED Normal [facility] PT panel Coag (PPP)on 2023 INR Coag (PPP) [Relative time] 1.5 {INR} High 0.9-1.3 [facility] Comment on above: Order Comment: Speci men Type: BLOOD SPECIMENOrdering Facility: [facility] Address: [address] [place] [address] Result Comment: Silvia min K Antagonist (VKA) Therapeutic Range: INR 2 to 3 (Target INR of 2.5)Note: For patients treated with VKA drugs, such as warfarin, the [employer] [employer] 2012 Guideline recommends a therapeutic INR range of 2 to 3 (target INR of 2.5). This recommendation includes high-risk patients with antiphospholipid syndrome with previous arterial or venous thromboembolism, current-generation mechanical or bioprosthetic aortic heart valve replacement.Note: Patients with mechanical aortic valve replacement and additional risk factors for thromboembolic events (atrial fibrillation, previous thromboembolism, LV dysfunction, hypercoagulable conditions) or an older generation mechanical AVR (i.e., ball in-Cage) or any mechanical MVR should have a INR therapeutic range of 2.5 to 3.5 (target INR of 3).Emery GH, et al. Chest 2012, 141:7S-47SNishimura RA, et al. [facility] 2017, 70: 252-289 Performed By: #### 3 255-7, 76721-1, 38808-8 ####[facility] [id number] [place] [address] [place] PT Coag (PPP) [Time] 15.6 s High 9.7-13.0 [facility] Comment on above: Order Comment: Specprieto ignacio Type: BLOOD SPECIMENOrdering Facility: [facility] Address: [address] [place] [address] Performed By: #### 3 255-7, 84274-0, 26889-0 ####[facility] [id number] [place] [address] [place] Platelet mean volume Auto (B ld) [Entitic vol]on 09-19-2023 Platelet mean volume (Bld) [Entitic vol] 9.9 fL 9.0-12.7 [facility] Platelets Auto (Bld) [#/Vol] on 09-19-2023 Platelets (Bld) [#/Vol] 106 10*3/uL Low 150-400 [facility] Platelets (Bld) [#/Vol] 121 10*3/uL Low 150-400 [facility] Comment on above: Order Comment: Ricardo ignacio Type: BLOOD SPECIMENOrdering Facility: [facility] Address: [address] [place] [address] Result Comment: Resu lts checked and verified.No clot detected. Performed By: #### 7 77-3 ####[facility] LABCLIA [id number] [place] [address] [place] Protein [Mass/volume] in Ser um or Plasmaon 09-19-2023 Protein [Mass/Vol] 6.0 g/dL Low 6.3-8.0 [facility] Prothrombin time (PT)on PT Coag (PPP) [Time] 15.6 s High 9.7-13.0 [facility] RBC Auto (Bld) [#/Vol]on RBC (Bld) [#/Vol] 2.37 10*6/uL Low 4.20-6.00 [facility] STAPHYLOCOCCUS AUREUS AND MR SA SCREEN, PCR, NASALon 09-19-2023 S. aureus and MRSA panel GALEN+probe (Nose) Not detected Normal Not Detected [facility] Comment on above: Order Comment: Speci men Type: SWABOrdering Facility: [facility] Address: [address] [place] [address] Performed By: #### S APCR ####[facility] LABCLIA [id number] [place] [address] [place] SURGICAL PATHOLOGYon 024 CASE REPORT Normal [facility] Comment on above: Order Comment: Speci men Type: TISSUE SPECIMENOrdering Facility: [facility] Address: [address] [place] [address] Result Comment: Surg ical Pathology Report Case: [id number] Provider: Oli Babin MD Collected: 09/19/2023 12:15 PMOrdering Location: Admitting Received: 09/19/2023 03:36 PMPathologist: Nena Peres MDSpecimen: Plaque, Right Coronary Artery Plaque Performed By: #### S ####[facility] LABCLIA [id number] [place] [address] [place] CLINICAL HISTORY Normal [facility] Comment on above: Order Comment: Speci men Type: TISSUE SPECIMENOrdering Facility: [facility] Address: [address] [place] [address] Result Comment: Pre- op diagnosis:CAD, multiple vessel [I25.10] Performed By: #### S ####[facility] LABCLIA [id number] [place] [address] [place] DIAGNOSIS COMMENT Normal [facility] Comment on above: Order Comment: Speci men Type: TISSUE SPECIMENOrdering Facility: [facility] Address: [address] [place] [address] Performed By: #### S ####[facility] LABCLIA [id number] [address] [place] FINAL DIAGNOSIS Normal [facility] Comment on above: Order Comment: Speci men Type: TISSUE SPECIMENOrdering Facility: [facility] Address: [address] [place] [address] Result Comment: A. R ight coronary artery, endarterectomy:- Muscular type artery with calcified fibroatheromatous plaque. See comment.ERR/CSM 09/21/2023 Performed By: #### S ####[facility] LABCLIA [id number] [address] [place] FINAL PERFORMING LAB Normal [facility] Comment on above: Order Comment: Speci men Type: TISSUE SPECIMENOrdering Facility: [facility] Address: [address] [place] [address] Result Comment: Diag nostic interpretation performed at [facility], [address] [place] [address] CLIA# [id number] Director: Daryl Houston M.D. Performed By: #### S ####[facility] LABCLIA [id number] [place] [address] [place] GROSS DESCRIPTION A. Plaque Normal [facility] Comment on above: Order Comment: Speci men Type: TISSUE SPECIMENOrdering Facility: [facility] Address: [address] [place] [address] Result Comment: Rece ived in formalin labeled right coronary artery plaque is a irregular garcia-yellow slightly calcified tissue fragment measuring 0.3 x 0.3 x 0.3 cm. Vessel wall is not identified. Thrombi are not present. The specimen is submitted entirely in A1 following light decalcification.Gross examination performed at [facility], [address] [place], [place] [address]OLS September 19, 2023 3:57 PM Performed By: #### S ####[facility] [id number] [place] [address] [place] Serum ionized calcium measur ement using ion specific electrode (mass/volume)on 09-19-2023 Calcium.ionized ISE [Mass/Vol] 1.19 mmol/L 1.08-1.30 [facility] Serum or plasma anion gap de terminationon 09-19-2023 Anion gap [Moles/Vol] 9 mmol/L 8-15 [facility] Serum or plasma hepatitis C virus antibody signal/cutoff ratio by immunoassay (relation 09-19-2023 HCV Ab Signal/Cutoff IA [Rel units/Vol] Negative Negative [facility] THROMBOGRAPH HEPARINASE PANE Garry 09-19-2023 Clot angle after addition of heparinase TEG (Bld) [Angle] 63.4 degrees Normal 47.0-74.0 [facility] Comment on above: Order Comment: Speci men Type: BLOOD SPECIMENOrdering Facility: [facility] Address: [address] [place] [address] Performed By: #### T EGHPP ####[facility] [id number] [place] [address] [place] Clot Lysis 30 Min post maximum clot amplitude TEG (Bld) [Length fraction] 3.6 % Normal 0.0-8.0 [facility] Comment on above: Order Comment: Speci men Type: BLOOD SPECIMENOrdering Facility: [facility] Address: [address] [place] [address] Performed By: #### T EGHPP ####[facility] LABCLIA [id number] [place] [address] [place] Clotting time after addition of heparinase TEG (Bld) 5.9 minutes Normal 4.0-10.0 [facility] Comment on above: Order Comment: Speci men Type: BLOOD SPECIMENOrdering Facility: [facility] Address: [address] [place] [address] Performed By: #### T EGHPP ####[facility] LABCLIA [id number] [place] [address] [place] Coagulation index TEG Qn (Bld) -1.5 Normal -4.6-3.2 [facility] Comment on above: Order Comment: Speci men Type: BLOOD SPECIMENOrdering Facility: [facility] Address: [address] [place] [address] Result Comment: The Coagulation Index, a secondary parameter, is labeled by the vasc tech as for research use only and is used per the vasc tech's instructions. Its performance characteristics were determined by [facility]'s [facility] [place] in a manner consistent with CLIA requirements. This test has not been cleared by the U.S. Food and Drug Administration. Performed By: #### T EGHPP ####[facility] LABIA [id number] [place] [address] [place] Maximum clot firmness after addition of heparinase TEG (Bld) [Length] 49.2 mm Low 51.0-75.0 [facility] Comment on above: Order Comment: Speci men Type: BLOOD SPECIMENOrdering Facility: [facility] Address: [address] [place] [address] Performed By: #### T EGHPP ####[facility] LABCLIA [id number] [facility] [place] [address] [place] Thromboelastography after addtion of heparinase panel (Bld) Normal [facility] Comment on above: Order Comment: Speci men Type: BLOOD SPECIMENOrdering Facility: [facility] Address: [address] [place] [address] Result Comment: A th romboelastograph (TEG) study was performed using a citrate-anticoagulated whole blood treated with heparinase to neutralize a heparin effect.The R value decreased to between 4.0 and 10.0 minutes after sample treatment with heparinase. This is consistent with heparin therapy with adequate residual hemostasis. The angle, a measure of fibrinogen function, is within normal range. This is indicative of normal fibrinogen concentration or function. The Maximal Amplitude (MA), a measure of platelet function, is decreased. A decreased MA can be seen with increased anti-platelet drug effect, thrombocytopenia, or platelet dysfunction. The Ly30, a measure of fibrinolysis, is normal. This is indicative of normal fibrinolytic function. The coagulation index (CI), a measure of hemostasis function, is within the normal range. The CI is a calculated parameter based on the other TEG results.Viscoelastic testing is not intended for the monitoring of anticoagulation or antiplatelet medications or the diagnosis and/or management of platelet disorders and/or coagulopathies but may be useful for guiding blood product utilization in emergency and urgent (OR) circumstances when routine coagulation and cell blood counts are not available in a timely manner. Performed By: #### T EGHPP ####[facility] LABCLIA [id number] [place] [address] [place] XR CHEST 1V FRONTAL PORTon 0 09-19-2023 XR CHEST 1V FRONTAL PORT Normal [facility] XR CHEST 1V FRONTAL PORT Normal [facility] XR CHEST 1V FRONTAL PORT Normal [facility] aPTT PPPon 09-19-2023 aPTT Coag (PPP) [Time] 42.0 s High 23.0-32.4 [facility] Comment on above: Order Comment: Ricardo ignacio Type: BLOOD SPECIMENOrdering Facility: [facility] Address: [address] [place] [address] Performed By: #### 3 255-7, 74217-1, 27936-4 ####[facility] LABCLIA [id number] [place] [address] [place] ALLIED HEALTHon 09-18-2023 ALLIED HEALTH Normal [facility] ALLIED HEALTH Normal [facility] Activated partial thrombopla stin time (aPTT) in platelet poor plasma by coagulation aon 09-18-2023 aPTT Coag (PPP) [Time] 53.6 s High 23.0-32.4 [facility] Comment on above: Order Comment: Speci men Type: BLOOD SPECIMENOrdering Facility: [facility] Address: [address] [place] [address] Performed By: #### P TTAC ####[facility] LABCLIA [id number] [place] [address] [place] CBC panel Auto (Bld)on 09-17 WBC (Bld) [#/Vol] 6.42 10*3/uL Normal 3.70-11.00 [facility] Comment on above: Order Comment: Speci men Type: BLOOD SPECIMENOrdering Facility: [facility] Address: [address] [place] [address] Performed By: #### 5 8410-2 ####[facility] LABIA [id number] [place] [address] [place] CONSULTon 09-18-2023 CONSULT Normal [facility] CONSULT Normal [facility] CONSULT PROGon 09-18-2023 CONSULT PROG Normal [facility] Comprehensive metabolic 2000 panelon 09-18-2023 Albumin [Mass/Vol] 3.5 g/dL Low 3.9-4.9 [facility] Comment on above: Order Comment: Speci men Type: BLOOD SPECIMENOrdering Facility: [facility] Address: [address] [place] [address] Performed By: #### 2 4323-8 ####[facility] LABCLIA [id number] [place] [address] [place] ALP [Catalytic activity/Vol] 68 U/L Normal 38-113 [facility] Comment on above: Order Comment: Speci men Type: BLOOD SPECIMENOrdering Facility: [facility] Address: [address] [place] [id number] Performed By: #### 2 4323-8 ####[facility] LABCLIA [id number] [place] [id number] [place] ALT [Catalytic activity/Vol] 39 U/L Normal 10-54 [facility] Comment on above: Order Comment: Speci men Type: BLOOD SPECIMENOrdering Facility: [facility] Address: [address] [place] [address] Performed By: #### 2 4323-8 ####[facility] LABCLIA [id number] [facility] [place] [address] [place] AST [Catalytic activity/Vol] 24 U/L Normal 14-40 [facility] Comment on above: Order Comment: Speci men Type: BLOOD SPECIMENOrdering Facility: [facility] Address: [address] [place] [address] Performed By: #### 2 4323-8 ####[facility] LABCLIA [id number] [place] [address] [place] Bilirubin [Mass/Vol] 1.0 mg/dL Normal 0.2-1.3 [facility] Comment on above: Order Comment: Speci men Type: BLOOD SPECIMENOrdering Facility: [facility] Address: [address] [place], [place] [address] Performed By: #### 2 4323-8 ####[facility] LABCLIA [id number] [facility] [place] [id number] [place] Calcium [Mass/Vol] 8.9 mg/dL Normal 8.5-10.2 [facility] Comment on above: Order Comment: Speci men Type: BLOOD SPECIMENOrdering Facility: [facility] Address: [address] [place], [place] [address] Performed By: #### 2 4323-8 ####[facility] LABCLIA [id number] [place] [address] [place] Chloride [Moles/Vol] 97 mmol/L Low 98-107 [facility] Comment on above: Order Comment: Speci men Type: BLOOD SPECIMENOrdering Facility: [facility] Address: [address] [place] [address] Performed By: #### 2 4323-8 ####[facility] LABCLIA [id number] [place] [address] [place] CO2 [Moles/Vol] 30 mmol/L Normal 22-30 [facility] Comment on above: Order Comment: Speci men Type: BLOOD SPECIMENOrdering Facility: [facility] Address: [address] [place] [address] Performed By: #### 2 4323-8 ####[facility] LABCLIA [id number] [place] [address] [place] Creatinine [Mass/Vol] 0.91 mg/dL Normal 0.73-1.22 [facility] Comment on above: Order Comment: Speci men Type: BLOOD SPECIMENOrdering Facility: [facility] Address: [address] [place] [address] Performed By: #### 2 4323-8 ####[facility] LABCLIA [id number] [place] [address] [place] Creatinine and Glomerular filtration rate.predicted panel (S/P/Bld) 91 mL/min/1.73m??? Normal >=60 [facility] Comment on above: Order Comment: Speci men Type: BLOOD SPECIMENOrdering Facility: [facility] Address: [address] [place] [address] Result Comment: Aileen mated Glomerular Filtration Rate [...] reflect actual GFR. Performed By: #### 2 4323-8 ####[facility] LABCLIA [id number] [place] [address] [place] Glucose [Mass/Vol] 116 mg/dL High 74-99 [facility] Comment on above: Order Comment: Speci men Type: BLOOD SPECIMENOrdering Facility: [facility] Address: [address] [place] [address] Result Comment: The [place] [employer] (ADA) provides guidance for cutoff values for fasting glucose and random glucose. The ADA defines fasting as no caloric intake for at least 8 hours. Fasting plasma glucose results between 100 to 125 mg/dL indicate increased risk for diabetes (prediabetes).Fasting plasma glucose results greater than or equal to 126 mg/dL meet the criteria for diagnosis of diabetes. In the absence of unequivocal hyperglycemia, results should be confirmed by repeat testing. In a patient with classic symptoms of hyperglycemia or hyperglycemic crisis, random plasma glucose results greater than or equal to 200 mg/dL meet the criteria for diagnosis of diabetes.Reference: Standards of Medical Care in Diabetes 2016, [place] [employer]. Diabetes Care. 2016.39(Suppl 1). Performed By: #### 2 4323-8 ####[facility] LABIA [id number] [place] [address] [place] Potassium [Moles/Vol] 4.6 mmol/L Normal 3.7-5.1 [facility] Comment on above: Order Comment: Speci men Type: BLOOD SPECIMENOrdering Facility: [facility] Address: [address] [place] [address] Performed By: #### 2 4323-8 ####[facility] LABIA [id number] [place] [address] [place] Sodium [Moles/Vol] 136 mmol/L Normal 136-144 [facility] Comment on above: Order Comment: Speci men Type: BLOOD SPECIMENOrdering Facility: [facility] Address: [address] [place] [address] Performed By: #### 2 4323-8 ####[facility] LABCLIA [id number] [address] [address] [place] Urea nitrogen [Mass/Vol] 15 mg/dL Normal 9-24 [facility] Comment on above: Order Comment: Speci men Type: BLOOD SPECIMENOrdering Facility: [facility] Address: [address] [place] [address] Performed By: #### 2 4323-8 ####[facility] LABIA [id number] [place] [id number] [place] Erythrocyte distribution wid th [Ratio] by Automated counton 09-18-2023 Erythrocyte distribution width (RBC) [Ratio] 15.9 % High 11.5-15.0 [facility] Comment on above: Order Comment: Speci men Type: BLOOD SPECIMENOrdering Facility: [facility] Address: [address] [place] [address] Performed By: #### 5 8410-2 ####[facility] LABIA [id number] [place] [id number] [place] Erythrocytes [#/volume] in B lood by Automated counton 09-18-2023 RBC (Bld) [#/Vol] 3.74 10*6/uL Low 4.20-6.00 [facility] Comment on above: Order Comment: Speci men Type: BLOOD SPECIMENOrdering Facility: [facility] Address: [address] [place] [address] Performed By: #### 5 8410-2 ####[facility] LABIA [id number] [place] [id number] [place] Hematocrit [Volume Fraction] of Blood by Automated counton 09-18-2023 Hematocrit (Bld) [Volume fraction] 33.1 % Low 39.0-51.0 [facility] Comment on above: Order Comment: Speci men Type: BLOOD SPECIMENOrdering Facility: [facility] Address: [address] [place] [address] Performed By: #### 5 8410-2 ####[facility] LABCLIA [id number] [place] [address] [place] Hemoglobin [Mass/volume] in Bloodon 09-18-2023 Hemoglobin (Bld) [Mass/Vol] 11.5 g/dL Low 13.0-17.0 [facility] Comment on above: Order Comment: Speci men Type: BLOOD SPECIMENOrdering Facility: [facility] Address: [address] [place] [address] Performed By: #### 5 8410-2 ####[facility] LABCLIA [id number] [place] [address] [place] Leukocytes [#/volume] correc leticia for nucleated erythrocytes in Blood by Automated counon 09-18-2023 WBC corrected for nucl RBC Auto (Bld) [#/Vol] 6.42 k/uL 3.70-11.00 [facility] MCH [Entitic mass] by Automa leticia counton 09-18-2023 MCH (RBC) [Entitic mass] 30.7 pg 26.0-34.0 [facility] Comment on above: Order Comment: Speci men Type: BLOOD SPECIMENOrdering Facility: [facility] Address: [address] [place] [address] Performed By: #### 5 8410-2 ####[facility] LABCLIA [id number] [place] [address] [place] MCHC [Mass/volume] by Automa leticia counton 09-18-2023 MCHC (RBC) [Mass/Vol] 34.7 g/dL 30.5-36.0 [facility] Comment on above: Order Comment: Speci men Type: BLOOD SPECIMENOrdering Facility: [facility] Address: [address] [place] [address] Performed By: #### 5 8410-2 ####[facility] LABCLIA [id number] [place] [address] [place] MCV [Entitic volume] by Auto mated counton 09-18-2023 MCV (RBC) [Entitic vol] 88.5 fL 80.0-100.0 [facility] Comment on above: Order Comment: Speci men Type: BLOOD SPECIMENOrdering Facility: [facility] Address: [address] [place] [address] Performed By: #### 5 8410-2 ####[facility] LABCLIA [id number] [address] [place] No Panel Informationon 09-17 39 U/L 10-54 [facility] 3.5 g/dL Low 3.9-4.9 [facility] 24 U/L 14-40 [facility] 1.0 mg/dL 0.2-1.3 [facility] 30 mmol/L 22-30 [facility] 97 mmol/L Low 98-107 [facility] 0.91 mg/dL 0.73-1.22 [facility] 116 mg/dL High 74-99 [facility] 4.6 mmol/L 3.7-5.1 [facility] 136 mmol/L 136-144 [facility] 15 mg/dL 9-24 [facility] 68 U/L 38-113 [facility] 8.9 mg/dL 8.5-10.2 [facility] 91 mL/min/1.73m??? >=60 [facility] Nucleated erythrocytes [#/vo lume] in Blood by Automated counton 09-18-2023 Nucleated RBC (Bld) [#/Vol] 10*3/uL <0.01 [facility] Comment on above: Order Comment: Speci men Type: BLOOD SPECIMENOrdering Facility: [facility] Address: [address] [place] [address] Performed By: #### 5 8410-2 ####[facility] LABCLIA [id number] [facility] [place] [address] [place] Platelet mean volume [Entiti c volume] in Blood by Automated counton 09-18-2023 Platelet mean volume (Bld) [Entitic vol] 10.3 fL 9.0-12.7 [facility] Comment on above: Order Comment: Speci men Type: BLOOD SPECIMENOrdering Facility: [facility] Address: [address] [place] [address] Performed By: #### 5 8410-2 ####[facility] LABCLIA [id number] [place] [address] [place] Platelets [#/volume] in Bloo d by Automated counton 09-18-2023 Platelets (Bld) [#/Vol] 165 10*3/uL 150-400 [facility] Comment on above: Order Comment: Speci men Type: BLOOD SPECIMENOrdering Facility: [facility] Address: [address] [place] [address] Performed By: #### 5 8410-2 ####[facility] LABCLIA [id number] [place] [address] [place] Protein [Mass/volume] in Ser um or Plasmaon 09-18-2023 Protein [Mass/Vol] 6.3 g/dL 6.3-8.0 [facility] Comment on above: Order Comment: Speci men Type: BLOOD SPECIMENOrdering Facility: [facility] Address: [address] [place] [address] Performed By: #### 2 4323-8 ####[facility] LABCLIA [id number] [place] [id number] [place] Serum or plasma anion gap de terminationon 09-18-2023 Anion gap [Moles/Vol] 9 mmol/L 8-15 [facility] Comment on above: Order Comment: Speci men Type: BLOOD SPECIMENOrdering Facility: [facility] Address: [address] [place] [address] Performed By: #### 2 4323-8 ####[facility] LABCLIA [id number] [address] [id number] [address] [place] TYPE + SCREENon 09-18-2023 ABO O Normal [facility] Comment on above: Order Comment: Speci men Type: BLOOD SPECIMENOrdering Facility: [facility] Address: [address] [place] [address] Performed By: #### T SCR ####[facility] BANKCLIA [id number] [place] [id number] [place] HISTORICAL AB SCR STATUS Negative Normal [facility] Comment on above: Order Comment: Speci men Type: BLOOD SPECIMENOrdering Facility: [facility] Address: [address] [place] [address] Performed By: #### T SCR ####[facility] BLO[facility] BANKCLIA [id number] [place] [address] [place] Rh Nom (Bld) Positive Normal [facility] Comment on above: Order Comment: Speci men Type: BLOOD SPECIMENOrdering Facility: [facility] Address: [address] [place] [address] Performed By: #### T SCR ####[facility] BLO[facility] BANKCLIA [id number] [place] [address] [place] TYPE AND SCREEN EXPIRATION 09/21/2023 23:59 Normal [facility] Comment on above: Order Comment: Speci men Type: BLOOD SPECIMENOrdering Facility: [facility] Address: [address] [place] [address] Performed By: #### T SCR ####[facility] BLOOD BANKCLIA [id number] [place] [address] [place] Activated partial thrombopla stin time (aPTT) in platelet poor plasma by coagulation aon 09-17-2023 aPTT Coag (PPP) [Time] 55.8 s High 23.0-32.4 [facility] Comment on above: Order Comment: Speci men Type: BLOOD SPECIMENOrdering Facility: [facility] Address: [address] [place] [address] Performed By: #### P TTAC ####[facility] LABCLIA [id number] [place] [address] [place] CBC panel Auto (Bld)on 09-16 WBC (Bld) [#/Vol] 5.82 10*3/uL Normal 3.70-11.00 [facility] Comment on above: Order Comment: Speci men Type: BLOOD SPECIMENOrdering Facility: [facility] Address: [address] [place] [address] Performed By: #### 5 8410-2 ####[facility] LABCLIA [id number] [place] [address] [facility] [place] Comprehensive metabolic 2000 panelon 09-17-2023 Albumin [Mass/Vol] 3.3 g/dL Low 3.9-4.9 [facility] Comment on above: Order Comment: Speci men Type: BLOOD SPECIMENOrdering Facility: [facility] Address: [address] [place] [address] Performed By: #### 2 4323-8 ####[facility] LABIA [id number] [place] [address] [place] ALP [Catalytic activity/Vol] 63 U/L Normal 38-113 [facility] Comment on above: Order Comment: Speci men Type: BLOOD SPECIMENOrdering Facility: [facility] Address: [address] [place] [address] Performed By: #### 2 4323-8 ####[facility] LABCLIA [id number] [place] [address] [place] ALT [Catalytic activity/Vol] 43 U/L Normal 10-54 [facility] Comment on above: Order Comment: Speci men Type: BLOOD SPECIMENOrdering Facility: [facility] Address: [address] [place] [address] Performed By: #### 2 4323-8 ####[facility] LABCLIA [id number] [place] [address] [place] AST [Catalytic activity/Vol] 32 U/L Normal 14-40 [facility] Comment on above: Order Comment: Speci men Type: BLOOD SPECIMENOrdering Facility: [facility] Address: [address] [place] [address] Performed By: #### 2 4323-8 ####[facility] LABCLIA [id number] [place] [address] [place] Bilirubin [Mass/Vol] 1.0 mg/dL Normal 0.2-1.3 [facility] Comment on above: Order Comment: Speci men Type: BLOOD SPECIMENOrdering Facility: [facility] Address: [address] [place] [address] Performed By: #### 2 4323-8 ####[facility] LABCLIA [id number] [place] [address] [place] Calcium [Mass/Vol] 8.7 mg/dL Normal 8.5-10.2 [facility] Comment on above: Order Comment: Speci men Type: BLOOD SPECIMENOrdering Facility: [facility] Address: [address] [place] [address] Performed By: #### 2 4323-8 ####[facility] LABCLIA [id number] [place] [address] [place] Chloride [Moles/Vol] 97 mmol/L Low 98-107 [facility] Comment on above: Order Comment: Speci men Type: BLOOD SPECIMENOrdering Facility: [facility] Address: [address] [place] [address] Performed By: #### 2 4323-8 ####[facility] LABCLIA [id number] [place] [address] [place] CO2 [Moles/Vol] 32 mmol/L High 22-30 [facility] Comment on above: Order Comment: Speci men Type: BLOOD SPECIMENOrdering Facility: [facility] Address: [address] [place] [id number] Performed By: #### 2 4323-8 ####[facility] LABIA [id number] [place] [address] [place] Creatinine [Mass/Vol] 1.00 mg/dL Normal 0.73-1.22 [facility] Comment on above: Order Comment: Ricardo men Type: BLOOD SPECIMENOrdering Facility: [facility] Address: [address] [place] [address] Performed By: #### 2 4323-8 ####[facility] LABIA [id number] [place] [address] [place] Creatinine and Glomerular filtration rate.predicted panel (S/P/Bld) 81 mL/min/1.73m??? Normal >=60 [facility] Comment on above: Order Comment: Ricardo ignacio Type: BLOOD SPECIMENOrdering Facility: [facility] Address: [address] [place] [address] Result Comment: Aileen mated Glomerular Filtration Rate [...] reflect actual GFR. Performed By: #### 2 4323-8 ####[facility] LABIA [id number] [place] [address] [place] Glucose [Mass/Vol] 117 mg/dL High 74-99 [facility] Comment on above: Order Comment: Ricardo men Type: BLOOD SPECIMENOrdering Facility: [facility] Address: [address] [place] [address] Result Comment: The [place] [employer] (ADA) provides guidance for cutoff values for fasting glucose and random glucose. The ADA defines fasting as no caloric intake for at least 8 hours. Fasting plasma glucose results between 100 to 125 mg/dL indicate increased risk for diabetes (prediabetes).Fasting plasma glucose results greater than or equal to 126 mg/dL meet the criteria for diagnosis of diabetes. In the absence of unequivocal hyperglycemia, results should be confirmed by repeat testing. In a patient with classic symptoms of hyperglycemia or hyperglycemic crisis, random plasma glucose results greater than or equal to 200 mg/dL meet the criteria for diagnosis of diabetes.Reference: Standards of Medical Care in Diabetes 2016, [place] [employer]. Diabetes Care. 2016.39(Suppl 1). Performed By: #### 2 4323-8 ####[facility] LABIA [id number] [place] [address] [place] Potassium [Moles/Vol] 3.9 mmol/L Normal 3.7-5.1 [facility] Comment on above: Order Comment: Brynni mateus Type: BLOOD SPECIMENOrdering Facility: [facility] Address: [address] [place] [address] Performed By: #### 2 4323-8 ####[facility] LABIA [id number] [place] [address] [place] Sodium [Moles/Vol] 136 mmol/L Normal 136-144 [facility] Comment on above: Order Comment: Ricardo ignacio Type: BLOOD SPECIMENOrdering Facility: [facility] Address: [address] [place] [address] Performed By: #### 2 4323-8 ####[facility] LABIA [id number] [place] [address] [place] Urea nitrogen [Mass/Vol] 16 mg/dL Normal 9-24 [facility] Comment on above: Order Comment: Brynni men Type: BLOOD SPECIMENOrdering Facility: [facility] Address: [address] [place] [address] Performed By: #### 2 4323-8 ####[facility] LABIA [id number] [place] [address] [place] Erythrocyte distribution wid th [Ratio] by Automated counton 09-17-2023 Erythrocyte distribution width (RBC) [Ratio] 16.1 % High 11.5-15.0 [facility] Comment on above: Order Comment: Speci men Type: BLOOD SPECIMENOrdering Facility: [facility] Address: [address] [place] [address] Performed By: #### 5 8410-2 ####[facility] LABCLIA [id number] [facility] [place] [address] [place] Erythrocytes [#/volume] in B lood by Automated counton 09-17-2023 RBC (Bld) [#/Vol] 3.53 10*6/uL Low 4.20-6.00 [facility] Comment on above: Order Comment: Speci men Type: BLOOD SPECIMENOrdering Facility: [facility] Address: [address] [place] [address] Performed By: #### 5 8410-2 ####[facility] LABCLIA [id number] [place] [address] [place] Hematocrit [Volume Fraction] of Blood by Automated counton 09-17-2023 Hematocrit (Bld) [Volume fraction] 31.0 % Low 39.0-51.0 [facility] Comment on above: Order Comment: Speci men Type: BLOOD SPECIMENOrdering Facility: [facility] Address: [address] [place] [address] Performed By: #### 5 8410-2 ####[facility] LABCLIA [id number] [place] [address] [place] Hemoglobin [Mass/volume] in Bloodon 09-17-2023 Hemoglobin (Bld) [Mass/Vol] 10.9 g/dL Low 13.0-17.0 [facility] Comment on above: Order Comment: Speci men Type: BLOOD SPECIMENOrdering Facility: [facility] Address: [address] [place] [address] Performed By: #### 5 8410-2 ####[facility] LABCLIA [id number] [place] [address] [place] Leukocytes [#/volume] correc leticia for nucleated erythrocytes in Blood by Automated counon 09-17-2023 WBC corrected for nucl RBC Auto (Bld) [#/Vol] 5.82 k/uL 3.70-11.00 [facility] MCH [Entitic mass] by Automa leticia counton 09-17-2023 MCH (RBC) [Entitic mass] 30.9 pg 26.0-34.0 [facility] Comment on above: Order Comment: Speci men Type: BLOOD SPECIMENOrdering Facility: [facility] Address: [address] [place] [address] Performed By: #### 5 8410-2 ####[facility] LABCLIA [id number] [place] [address] [place] MCHC [Mass/volume] by Automa leticia counton 09-17-2023 MCHC (RBC) [Mass/Vol] 35.2 g/dL 30.5-36.0 [facility] Comment on above: Order Comment: Speci men Type: BLOOD SPECIMENOrdering Facility: [facility] Address: [address] [place] [address] Performed By: #### 5 8410-2 ####[facility] LABIA [id number] [place] [address] [place] MCV [Entitic volume] by Auto mated counton 09-17-2023 MCV (RBC) [Entitic vol] 87.8 fL 80.0-100.0 [facility] Comment on above: Order Comment: Speci men Type: BLOOD SPECIMENOrdering Facility: [facility] Address: [address] [place] [address] Performed By: #### 5 8410-2 ####[facility] LABIA [id number] [place] [address] [place] No Panel Informationon 09-16 43 U/L 10-54 [facility] 3.3 g/dL Low 3.9-4.9 [facility] 32 U/L 14-40 [facility] 1.0 mg/dL 0.2-1.3 [facility] 32 mmol/L High 22-30 [facility] 97 mmol/L Low 98-107 [facility] 1.00 mg/dL 0.73-1.22 [facility] 117 mg/dL High 74-99 [facility] 3.9 mmol/L 3.7-5.1 [facility] 136 mmol/L 136-144 [facility] 16 mg/dL 9-24 [facility] 63 U/L 38-113 [facility] 8.7 mg/dL 8.5-10.2 [facility] 81 mL/min/1.73m??? >=60 [facility] Nucleated erythrocytes [#/vo lume] in Blood by Automated counton 09-17-2023 Nucleated RBC (Bld) [#/Vol] 10*3/uL <0.01 [facility] Comment on above: Order Comment: Speci men Type: BLOOD SPECIMENOrdering Facility: [facility] Address: [address] [place] [address] Performed By: #### 5 8410-2 ####[facility] LABCLIA [id number] [place] [address] [place] Platelet mean volume [Entiti c volume] in Blood by Automated counton 09-17-2023 Platelet mean volume (Bld) [Entitic vol] 10.9 fL 9.0-12.7 [facility] Comment on above: Order Comment: Speci men Type: BLOOD SPECIMENOrdering Facility: [facility] Address: [address] [place] [address] Performed By: #### 5 8410-2 ####[facility] LABCLIA [id number] [place] [address] [place] Platelets [#/volume] in Bloo d by Automated counton 09-17-2023 Platelets (Bld) [#/Vol] 159 10*3/uL 150-400 [facility] Comment on above: Order Comment: Speci men Type: BLOOD SPECIMENOrdering Facility: [facility] Address: [address] [place] [address] Performed By: #### 5 8410-2 ####[facility] LABIA [id number] [place] [id number] [place] Protein [Mass/volume] in Ser um or Plasmaon 09-17-2023 Protein [Mass/Vol] 5.7 g/dL Low 6.3-8.0 [facility] Comment on above: Order Comment: Speci men Type: BLOOD SPECIMENOrdering Facility: [facility] Address: [address] [place] [address] Performed By: #### 2 4323-8 ####[facility] LABIA [id number] [place] [address] [place] Serum or plasma anion gap de terminationon 09-17-2023 Anion gap [Moles/Vol] 7 mmol/L Low 8-15 [facility] Comment on above: Order Comment: Speci men Type: BLOOD SPECIMENOrdering Facility: [facility] Address: [address] [place] [address] Performed By: #### 2 4323-8 ####[facility] LABIA [id number] [place] [id number] [place] Activated partial thrombopla stin time (aPTT) in platelet poor plasma by coagulation aon 09-16-2023 aPTT Coag (PPP) [Time] 53.9 s High 23.0-32.4 [facility] Comment on above: Order Comment: Speci men Type: BLOOD SPECIMENOrdering Facility: [facility] Address: [address] [place] [address] Performed By: #### P TTAC ####[facility] LABIA [id number] [place] [id number] [place] CASE MANAGEMon 09-16-2023 CASE MANAGEM Normal [facility] CBC panel Auto (Bld)on 09-15 Erythrocyte distribution width (RBC) [Ratio] 15.9 % High 11.5-15.0 [facility] Comment on above: Order Comment: Speci men Type: BLOOD SPECIMENOrdering Facility: [facility] Address: [address] [place] [address] Performed By: #### 5 8410-2 ####[facility] LABCLIA [id number] [place] [address] [place] Hematocrit (Bld) [Volume fraction] 33.2 % Low 39.0-51.0 [facility] Comment on above: Order Comment: Speci men Type: BLOOD SPECIMENOrdering Facility: [facility] Address: [address] [place] [address] Performed By: #### 5 8410-2 ####[facility] LABCLIA [id number] [place] [address] [place] Hemoglobin (Bld) [Mass/Vol] 11.4 g/dL Low 13.0-17.0 [facility] Comment on above: Order Comment: Speci men Type: BLOOD SPECIMENOrdering Facility: [facility] Address: [address] [place] [address] Performed By: #### 5 8410-2 ####[facility] LABCLIA [id number] [place] [address] [place] MCH (RBC) [Entitic mass] 30.6 pg Normal 26.0-34.0 [facility] Comment on above: Order Comment: Speci men Type: BLOOD SPECIMENOrdering Facility: [facility] Address: [address] [place] [address] Performed By: #### 5 8410-2 ####[facility] LABCLIA [id number] [place] [address] [place] MCHC (RBC) [Mass/Vol] 34.3 g/dL Normal 30.5-36.0 [facility] Comment on above: Order Comment: Speci men Type: BLOOD SPECIMENOrdering Facility: [facility] Address: [address] [place] [address] Performed By: #### 5 8410-2 ####[facility] LABCLIA [id number] [place] [address] [place] MCV (RBC) [Entitic vol] 89.0 fL Normal 80.0-100.0 [facility] Comment on above: Order Comment: Speci men Type: BLOOD SPECIMENOrdering Facility: [facility] Address: [address] [place] [address] Performed By: #### 5 8410-2 ####[facility] LABIA [id number] [place] [address] [place] Nucleated RBC (Bld) [#/Vol] 10*3/uL Normal <0.01 [facility] Comment on above: Order Comment: Speci men Type: BLOOD SPECIMENOrdering Facility: [facility] Address: [address] [place] [address] Performed By: #### 5 8410-2 ####[facility] LABIA [id number] [place] [address] [place] Platelet mean volume (Bld) [Entitic vol] 10.3 fL Normal 9.0-12.7 [facility] Comment on above: Order Comment: Speci men Type: BLOOD SPECIMENOrdering Facility: [facility] Address: [address] [place] [address] Performed By: #### 5 8410-2 ####[facility] LABCLIA [id number] [place] [address] [place] Platelets (Bld) [#/Vol] 164 10*3/uL Normal 150-400 [facility] Comment on above: Order Comment: Speci men Type: BLOOD SPECIMENOrdering Facility: [facility] Address: [address] [place] [address] Performed By: #### 5 8410-2 ####[facility] LABCLIA [id number] [place] [address] [place] RBC (Bld) [#/Vol] 3.73 10*6/uL Low 4.20-6.00 [facility] Comment on above: Order Comment: Speci men Type: BLOOD SPECIMENOrdering Facility: [facility] Address: [address] [place] [address] Performed By: #### 5 8410-2 ####[facility] LABIA [id number] [place] [address] [place] WBC (Bld) [#/Vol] 7.77 10*3/uL Normal 3.70-11.00 [facility] Comment on above: Order Comment: Speci men Type: BLOOD SPECIMENOrdering Facility: [facility] Address: [address] [place] [address] Performed By: #### 5 8410-2 ####[facility] [id number] [place] [address] [place] CNOVon 09-16-2023 CNOV Normal [facility] CNOV Normal [facility] CONSULTon 09-16-2023 CONSULT Normal [facility] CONSULT PROGon 09-16-2023 CONSULT PROG Normal [facility] Comprehensive metabolic 2000 panelon 09-16-2023 Albumin [Mass/Vol] 3.7 g/dL Low 3.9-4.9 [facility] Comment on above: Order Comment: Speci men Type: BLOOD SPECIMENOrdering Facility: [facility] Address: [address] [place] [address] Performed By: #### 2 4323-8, 2532-0 ####[facility] [id number] [place] [address] [place] ALP [Catalytic activity/Vol] 67 U/L Normal 38-113 [facility] Comment on above: Order Comment: Speci men Type: BLOOD SPECIMENOrdering Facility: [facility] Address: [address] [place] [id number] Performed By: #### 2 4323-8, 2-0 ####[facility] LABCLIA [id number] [place] [address] [place] ALT [Catalytic activity/Vol] 42 U/L Normal 10-54 [facility] Comment on above: Order Comment: Speci men Type: BLOOD SPECIMENOrdering Facility: [facility] Address: [address] [place] [address] Performed By: #### 2 432-8, 2531-0 ####[facility] LABCLIA [id number] [place] [address] [place] Anion gap [Moles/Vol] 10 mmol/L Normal 8-15 [facility] Comment on above: Order Comment: Speci men Type: BLOOD SPECIMENOrdering Facility: [facility] Address: [address] [place] [address] Performed By: #### 2 432-8, 2531-0 ####[facility] LABCLIA [id number] [place] [address] [place] AST [Catalytic activity/Vol] 33 U/L Normal 14-40 [facility] Comment on above: Order Comment: Speci men Type: BLOOD SPECIMENOrdering Facility: [facility] Address: [address] [place], [place] [id number] Performed By: #### 2 432-8, 2531-0 ####[facility] LABCLIA [id number] [place] [id number] [place] Bilirubin [Mass/Vol] 1.0 mg/dL Normal 0.2-1.3 [facility] Comment on above: Order Comment: Speci men Type: BLOOD SPECIMENOrdering Facility: [facility] Address: [address] [place] [address] Performed By: #### 2 4323-8, 2-0 ####[facility] LABCLIA [id number] [place] [address] [place] Calcium [Mass/Vol] 8.9 mg/dL Normal 8.5-10.2 [facility] Comment on above: Order Comment: Speci men Type: BLOOD SPECIMENOrdering Facility: [facility] Address: [address] [place] [address] Performed By: #### 2 4323-8, 2531-0 ####[facility] LABCLIA [id number] [place] [address] [place] Chloride [Moles/Vol] 96 mmol/L Low 98-107 [facility] Comment on above: Order Comment: Speci men Type: BLOOD SPECIMENOrdering Facility: [facility] Address: [address] [place] [address] Performed By: #### 2 432-8, 2531-0 ####[facility] LABCLIA [id number] [place] [address] [place] CO2 [Moles/Vol] 31 mmol/L High 22-30 [facility] Comment on above: Order Comment: Speci men Type: BLOOD SPECIMENOrdering Facility: [facility] Address: [address] [place] [address] Performed By: #### 2 4323-8, 2531-0 ####[facility] LABCLIA [id number] [place] [address] [place] Creatinine [Mass/Vol] 1.11 mg/dL Normal 0.73-1.22 [facility] Comment on above: Order Comment: Speci men Type: BLOOD SPECIMENOrdering Facility: [facility] Address: [address] [place] [address] Performed By: #### 2 4323-8, 2532-0 ####[facility] LABCLIA [id number] [place] [address] [place] Creatinine and Glomerular filtration rate.predicted panel (S/P/Bld) 71 mL/min/1.73m??? Normal >=60 [facility] Comment on above: Order Comment: Ricardo ignacio Type: BLOOD SPECIMENOrdering Facility: [facility] Address: [address] [place] [address] Result Comment: Aileen mated Glomerular Filtration Rate [...] actual GFR. Performed By: #### 2 4323-8, 2531-0 ####[facility] LABCLIA [id number] [place] [address] [place] Glucose [Mass/Vol] 150 mg/dL High 74-99 [facility] Comment on above: Order Comment: Ricardo ignacio Type: BLOOD SPECIMENOrdering Facility: [facility] Address: [address] [place] [address] Result Comment: The [place] [employer] (ADA) provides guidance for cutoff values for fasting glucose and random glucose. The ADA defines fasting as no caloric intake for at least 8 hours. Fasting plasma glucose results between 100 to 125 mg/dL indicate increased risk for diabetes (prediabetes).Fasting plasma glucose results greater than or equal to 126 mg/dL meet the criteria for diagnosis of diabetes. In the absence of unequivocal hyperglycemia, results should be confirmed by repeat testing. In a patient with classic symptoms of hyperglycemia or hyperglycemic crisis, random plasma glucose results greater than or equal to 200 mg/dL meet the criteria for diagnosis of diabetes.Reference: Standards of Medical Care in Diabetes 2016, [place] [employer]. Diabetes Care. 2016.39(Suppl 1). Performed By: #### 2 4323-8, 0 ####[facility] LABCLIA [id number] [place] [address] [place] Potassium [Moles/Vol] 4.5 mmol/L Normal 3.7-5.1 [facility] Comment on above: Order Comment: Speci men Type: BLOOD SPECIMENOrdering Facility: [facility] Address: [address] [place] [address] Performed By: #### 2 4323-8, 0 ####[facility] LABCLIA [id number] [place] [address] [place] Protein [Mass/Vol] 6.1 g/dL Low 6.3-8.0 [facility] Comment on above: Order Comment: Speci men Type: BLOOD SPECIMENOrdering Facility: [facility] Address: [address] [place] [address] Performed By: #### 2 4323-8, 2531-0 ####[facility] LABIA [id number] [place] [address] [place] Sodium [Moles/Vol] 137 mmol/L Normal 136-144 [facility] Comment on above: Order Comment: Speci men Type: BLOOD SPECIMENOrdering Facility: [facility] Address: [address] [place] [address] Performed By: #### 2 4323-8, 0 ####[facility] LABCLIA [id number] [place] [address] [place] Urea nitrogen [Mass/Vol] 21 mg/dL Normal 9-24 [facility] Comment on above: Order Comment: Speci men Type: BLOOD SPECIMENOrdering Facility: [facility] Address: [address] [place] [address] Performed By: #### 2 4323-8, 2531-0 ####[facility] LABCLIA [id number] [place] [address] [place] Erythrocyte distribution wid th Auto (RBC) [Ratio]on 09-16-2023 Erythrocyte distribution width (RBC) [Ratio] 15.9 % High 11.5-15.0 [facility] Hematocrit Auto (Bld) [Volum e fraction]on 09-16-2023 Hematocrit (Bld) [Volume fraction] 33.2 % Low 39.0-51.0 [facility] Hemoglobin [Mass/volume] in Bloodon 09-16-2023 Hemoglobin (Bld) [Mass/Vol] 11.4 g/dL Low 13.0-17.0 [facility] LDH SerPl-cCncon 09-16-2023 LDH [Catalytic activity/Vol] 219 U/L Normal 135-225 [facility] Comment on above: Order Comment: Speci men Type: BLOOD SPECIMENOrdering Facility: [facility] Address: [address] [place] [address] Result Comment: Hemo lysis present. The origin of the hemolysis, in vitro versus an in vivo hemolytic process, cannot be distinguished via this assay alone. In vitro hemolysis may lead to non-physiological (spurious) elevation in lactate dehydrogenase (LDH) results. Theresult should be interpreted in context of the clinical setting and other test results. Suggest reorder as clinically indicated. Performed By: #### 2 4323-8, 2532-0 ####[facility] LABCLIA [id number] [facility] [place] [address] [place] Leukocytes [#/volume] correc leticia for nucleated erythrocytes in Blood by Automated counon 09-16-2023 WBC corrected for nucl RBC Auto (Bld) [#/Vol] 7.77 k/uL 3.70-11.00 [facility] MCH Auto (RBC) [Entitic mass ]on 09-16-2023 MCH (RBC) [Entitic mass] 30.6 pg 26.0-34.0 [facility] MCHC Auto (RBC) [Mass/Vol]on 09-16-2023 MCHC (RBC) [Mass/Vol] 34.3 g/dL 30.5-36.0 [facility] MCV Auto (RBC) [Entitic vol] on 09-16-2023 MCV (RBC) [Entitic vol] 89.0 fL 80.0-100.0 [facility] NUTRITIONon 09-16-2023 NUTRITION Normal [facility] No Panel Informationon 09-15 42 U/L 10-54 [facility] 219 U/L 135-225 [facility] 3.7 g/dL Low 3.9-4.9 [facility] 33 U/L 14-40 [facility] 1.0 mg/dL 0.2-1.3 [facility] 31 mmol/L High 22-30 [facility] 96 mmol/L Low 98-107 [facility] 1.11 mg/dL 0.73-1.22 [facility] 150 mg/dL High 74-99 [facility] 4.5 mmol/L 3.7-5.1 [facility] 137 mmol/L 136-144 [facility] 21 mg/dL 9-24 [facility] 67 U/L 38-113 [facility] 8.9 mg/dL 8.5-10.2 [facility] 71 mL/min/1.73m??? >=60 [facility] Nucleated RBC Auto (Bld) [#/ Vol]on 09-16-2023 Nucleated RBC (Bld) [#/Vol] 10*3/uL <0.01 [facility] PTT, ANTICOAGULANT THERAPYon 09-16-2023 aPTT Coag (PPP) [Time] 55.0 s High 23.0-32.4 [facility] Comment on above: Order Comment: Speci men Type: BLOOD SPECIMENOrdering Facility: [facility] Address: [address] [place] [address] Performed By: #### P TTAC ####[facility] LABCLIA [id number] [facility] [id number] [address] [place] Platelet mean volume Auto (B ld) [Entitic vol]on 09-16-2023 Platelet mean volume (Bld) [Entitic vol] 10.3 fL 9.0-12.7 [facility] Platelets Auto (Bld) [#/Vol] on 09-16-2023 Platelets (Bld) [#/Vol] 164 10*3/uL 150-400 [facility] Protein [Mass/volume] in Ser um or Plasmaon 09-16-2023 Protein [Mass/Vol] 6.1 g/dL Low 6.3-8.0 [facility] RBC Auto (Bld) [#/Vol]on RBC (Bld) [#/Vol] 3.73 10*6/uL Low 4.20-6.00 [facility] Serum or plasma anion gap de terminationon 09-16-2023 Anion gap [Moles/Vol] 10 mmol/L 8-15 [facility] ADENOSINE DEAMINASE, PLEURAL FLDon 09-15-2023 ADENOSINE DEAMINASE, PLEURAL 7 U/L Normal 0-30 [facility] Comment on above: Order Comment: Speci men Type: SPECIMEN FROM PLEURA OBTAINED BY THORACENTESISOrdering Facility: [facility] Address: [address] [place] [address] Result Comment: INTE RPRETIVE INFORMATION:Adenosine Deaminase, Pleural FluidThis test was developed and its performance characteristicsdetermined by [employer]. It has not been cleared orapproved by the [place] Food and Drug Administration. This test wasperformed in a CLIA certified laboratory and is intended forclinical purposes.Performed By: [address] [place], [place] [address]Lewgpswksg Director: Anand Salazar MD, PhDCLIA Number: [id number] Performed By: #### P FAD ####[facility] [id number] [place] [address] Activated partial thrombopla stin time (aPTT) in platelet poor plasma by coagulation aon 09-15-2023 aPTT Coag (PPP) [Time] 64.3 s High 23.0-32.4 [facility] Comment on above: Order Comment: Speci men Type: BLOOD SPECIMENOrdering Facility: [facility] Address: [address] [place] [address] Performed By: #### P TTA ####[facility] LABCLIA [id number] [place] [address] [place] BODY FLUID CELL COUNTon 07-0 Clarity (Unsp spec) Clear Normal Clear [facility] Comment on above: Order Comment: Speci men Type: SPECIMEN FROM PLEURA OBTAINED BY THORACENTESISOrdering Facility: [facility] Address: [address] [place] [address] Performed By: #### L [id number], CCBF ####[facility] LABCLIA [id number] [address] RBC Manual cnt (Body fld) [#/Vol] 5000 /uL High <2000 [facility] Comment on above: Order Comment: Speci men Type: SPECIMEN FROM PLEURA OBTAINED BY THORACENTESISOrdering Facility: [facility] Address: [address] [place] [address] Performed By: #### L [id number], CCBF ####[facility] LABIA [id number] [place] [address] [place] Specimen source Nom (Body fld) Pleural Cavity, Right Normal [facility] Comment on above: Order Comment: Speci men Type: SPECIMEN FROM PLEURA OBTAINED BY THORACENTESISOrdering Facility: [facility] Address: [address] [place] [address] Performed By: #### L [id number], CCBF ####[facility] LABCLIA [id number] [address] [place] WBC Manual cnt (Body fld) [#/Vol] 53 /uL Normal <1000 [facility] Comment on above: Order Comment: Speci men Type: SPECIMEN FROM PLEURA OBTAINED BY THORACENTESISOrdering Facility: [facility] Address: [address] [place] [address] Performed By: #### L [id number], CCBF ####[facility] LABIA [id number] [place] [address] [place] Bacteria Fld Culton 09-15-19 24 Bacteria identified Cx Nom (Body fld) CULTURE, BODY FLD: No growth GRAM STAIN: No organisms seen No Polymorphonuclear Leukocytes Gram stain performed on cytospun specimen. Gram stain from primary specimen Normal [facility] Comment on above: Performed By: #### 6 11-4, 19320-4 ####[facility] LABCLIA [id number] [place] [address] [place] CBC panel Auto (Bld)on 09-14 WBC (Bld) [#/Vol] 5.76 10*3/uL Normal 3.70-11.00 [facility] Comment on above: Order Comment: Speci men Type: BLOOD SPECIMENOrdering Facility: [facility] Address: [address] [place] [address] Performed By: #### 5 8410-2 ####[facility] LABCLIA [id number] [place] [address] [place] CYTOLOGY NON-GYNon CASE REPORT Normal [facility] Comment on above: Order Comment: Speci men Type: SPECIMEN FROM PLEURA OBTAINED BY THORACENTESISOrdering Facility: [facility] Address: [address] [place] [address] Result Comment: [facility] Cytology Report Case: [id number] Provider: Emmanuel Sparks MD Collected: 09/15/2023 03:26 PMOrdering Location: [facility] Received: 09/16/2023 05:33 AMPathologist: Lashawn Haddad MDSpecimen: Pleural Cavity, Right Performed By: #### C YTONON ####[facility] LABCLIA [id number] [place] [address] [place] CLINICAL HISTORY pleural fluid Normal [facility] Comment on above: Order Comment: Speci men Type: SPECIMEN FROM PLEURA OBTAINED BY THORACENTESISOrdering Facility: [facility] Address: [address] [place] [address] Performed By: #### C YTONON ####[facility] LABCLIA [id number] [place] [address] [place] FINAL DIAGNOSIS Normal [facility] Comment on above: Order Comment: Speci men Type: SPECIMEN FROM PLEURA OBTAINED BY THORACENTESISOrdering Facility: [facility] Address: [address] [place] [address] Result Comment: A. R ight Pleural Fluid:Negative for malignant cells.The following cell blocks were associated with this case:A1 Cell Block, Alcohol Fixed Performed By: #### C YTONON ####[facility] LABCLIA [id number] [place] [address] [place] FINAL PERFORMING LAB Normal [facility] Comment on above: Order Comment: Speci men Type: SPECIMEN FROM PLEURA OBTAINED BY THORACENTESISOrdering Facility: [facility] Address: [address] [place] [address] Result Comment: Tech nical component, forest fire specialist supervisor screening performed at [facility], [address] [place] [address] CLIA# [id number] interpretation performed at [facility], [address] [place] [address] CLIA# [id number] Director: Daryl Houston M.D. Performed By: #### C YTONON ####[facility] LABCLIA [id number] [address] STATES [facility] GROSS DESCRIPTION Normal [facility] Comment on above: Order Comment: Speci men Type: SPECIMEN FROM PLEURA OBTAINED BY THORACENTESISOrdering Facility: [facility] Address: [address] [place] [address] Result Comment: A. P leural Cavity, Right20 cc cloudy orestes fluid with material. ThinPrep and Cell Block prepared. Performed By: #### C YTONON ####[facility] LABCLIA [id number] [place] [address] [place] Comprehensive metabolic 2000 panelon 09-15-2023 Albumin [Mass/Vol] 3.5 g/dL Low 3.9-4.9 [facility] Comment on above: Order Comment: Speci men Type: BLOOD SPECIMENOrdering Facility: [facility] Address: [address] [place] [id number] Performed By: #### 2 4323-8 ####[facility] LABCLIA [id number] [place] [address] [place] ALP [Catalytic activity/Vol] 61 U/L Normal 38-113 [facility] Comment on above: Order Comment: Speci men Type: BLOOD SPECIMENOrdering Facility: [facility] Address: [address] [place] [address] Performed By: #### 2 4323-8 ####[facility] LABCLIA [id number] [place] [address] [place] ALT [Catalytic activity/Vol] 28 U/L Normal 10-54 [facility] Comment on above: Order Comment: Speci men Type: BLOOD SPECIMENOrdering Facility: [facility] Address: [address] [place] [address] Performed By: #### 2 4323-8 ####[facility] LABCLIA [id number] [place] [address] [place] AST [Catalytic activity/Vol] 24 U/L Normal 14-40 [facility] Comment on above: Order Comment: Speci men Type: BLOOD SPECIMENOrdering Facility: [facility] Address: [address] [place] [address] Performed By: #### 2 4323-8 ####[facility] LABCLIA [id number] [place] [address] [place] Bilirubin [Mass/Vol] 0.9 mg/dL Normal 0.2-1.3 [facility] Comment on above: Order Comment: Speci men Type: BLOOD SPECIMENOrdering Facility: [facility] Address: [address] [place], [place] [id number] Performed By: #### 2 4323-8 ####[facility] LABCLIA [id number] [place] [address] [place] Calcium [Mass/Vol] 8.9 mg/dL Normal 8.5-10.2 [facility] Comment on above: Order Comment: Speci men Type: BLOOD SPECIMENOrdering Facility: [facility] Address: [address] [place] [address] Performed By: #### 2 4323-8 ####[facility] LABCLIA [id number] [place] [address] [place] Chloride [Moles/Vol] 98 mmol/L Normal 98-107 [facility] Comment on above: Order Comment: Speci men Type: BLOOD SPECIMENOrdering Facility: [facility] Address: [address] [place] [address] Performed By: #### 2 4323-8 ####[facility] LABCLIA [id number] [place] [address] [place] CO2 [Moles/Vol] 31 mmol/L High 22-30 [facility] Comment on above: Order Comment: Speci men Type: BLOOD SPECIMENOrdering Facility: [facility] Address: [address] [place] [address] Performed By: #### 2 4323-8 ####[facility] LABCLIA [id number] [place] [address] [place] Creatinine [Mass/Vol] 1.03 mg/dL Normal 0.73-1.22 [facility] Comment on above: Order Comment: Speci men Type: BLOOD SPECIMENOrdering Facility: [facility] Address: [address] [place] [address] Performed By: #### 2 4323-8 ####[facility] LABCLIA [id number] [place] [address] [place] Creatinine and Glomerular filtration rate.predicted panel (S/P/Bld) 78 mL/min/1.73m??? Normal >=60 [facility] Comment on above: Order Comment: Speci men Type: BLOOD SPECIMENOrdering Facility: [facility] Address: [address] [place] [address] Result Comment: Aileen mated Glomerular Filtration Rate [...] reflect actual GFR. Performed By: #### 2 4323-8 ####[facility] LABCLIA [id number] [place] [address] [place] Glucose [Mass/Vol] 82 mg/dL Normal 74-99 [facility] Comment on above: Order Comment: Speci men Type: BLOOD SPECIMENOrdering Facility: [facility] Address: [address] [place] [address] Result Comment: The [place] [employer] (ADA) provides guidance for cutoff values for fasting glucose and random glucose. The ADA defines fasting as no caloric intake for at least 8 hours. Fasting plasma glucose results between 100 to 125 mg/dL indicate increased risk for diabetes (prediabetes).Fasting plasma glucose results greater than or equal to 126 mg/dL meet the criteria for diagnosis of diabetes. In the absence of unequivocal hyperglycemia, results should be confirmed by repeat testing. In a patient with classic symptoms of hyperglycemia or hyperglycemic crisis, random plasma glucose results greater than or equal to 200 mg/dL meet the criteria for diagnosis of diabetes.Reference: Standards of Medical Care in Diabetes 2016, [place] [employer]. Diabetes Care. 2016.39(Suppl 1). Performed By: #### 2 4323-8 ####[facility] LABCLIA [id number] [place] [id number] [place] Potassium [Moles/Vol] 3.9 mmol/L Normal 3.7-5.1 [facility] Comment on above: Order Comment: Speci men Type: BLOOD SPECIMENOrdering Facility: [facility] Address: [address] [id number] Performed By: #### 2 4323-8 ####[facility] LABCLIA [id number] [facility] [place] [address] [place] Sodium [Moles/Vol] 138 mmol/L Normal 136-144 [facility] Comment on above: Order Comment: Speci men Type: BLOOD SPECIMENOrdering Facility: [facility] Address: [address] [place] [address] Performed By: #### 2 4323-8 ####[facility] LABCLIA [id number] [place] [address] [place] Urea nitrogen [Mass/Vol] 18 mg/dL Normal 9-24 [facility] Comment on above: Order Comment: Speci men Type: BLOOD SPECIMENOrdering Facility: [facility] Address: [address] [place] [address] Performed By: #### 2 4323-8 ####[facility] LABIA [id number] [place] [address] [place] Erythrocyte distribution wid th [Ratio] by Automated counton 09-15-2023 Erythrocyte distribution width (RBC) [Ratio] 16.2 % High 11.5-15.0 [facility] Comment on above: Order Comment: Speci men Type: BLOOD SPECIMENOrdering Facility: [facility] Address: [address] [place] [address] Performed By: #### 5 8410-2 ####[facility] LABIA [id number] [place] [address] [place] Erythrocytes [#/volume] in B lood by Automated counton 09-15-2023 RBC (Bld) [#/Vol] 3.46 10*6/uL Low 4.20-6.00 [facility] Comment on above: Order Comment: Speci men Type: BLOOD SPECIMENOrdering Facility: [facility] Address: [address] [place] [address] Performed By: #### 5 8410-2 ####[facility] LABCLIA [id number] [place] [address] [place] Evaluation of color of body fluidon 09-15-2023 Color (Body fld) Yellow Yellow [facility] Comment on above: Order Comment: Speci men Type: SPECIMEN FROM PLEURA OBTAINED BY THORACENTESISOrdering Facility: [facility] Address: [address] [place] [address] Performed By: #### L [id number], CCBF ####[facility] LABCLIA [id number] [place] [address] [place] Glucose Fld-mCncon 4 Glucose (Body fld) [Mass/Vol] 135 mg/dL Normal See Comment [facility] Comment on above: Order Comment: Speci men Type: FLUID SPECIMENOrdering Facility: [facility] Address: [address] [place] [address] Result Comment: Syno vial fluid: Synovial fluid glucose measurement may be useful in classifying various joint disorders. A concurrent plasma glucose measurement should be performed to determine the glucose plasma minus glucose synovial fluid???difference, which is normally <= 10.0 mg/dL.Artificial lowering of synovial fluid glucose, due to glycolytic action of leukocytes, may result from analyses that occur more than one hour from the time of collection.Reference: 1. CLSI. Analysis of Body Fluids in Clinical Chemistry Approved Guideline. CLSI document C49A. LYNETTE Gaytan: Clinical Laboratory Standards [place]: 2007. Performed By: #### 2 344-0, 2529-6 ####[facility] LABCLIA [id number] [place] [address] [place] HEMATOCRIT, FLUIDon 09-15-19 24 HEMATOCRIT, FLUID 0.1 % Normal Reference range not available [facility] Comment on above: Order Comment: Speci men Type: SPECIMEN FROM PLEURA OBTAINED BY THORACENTESISOrdering Facility: [facility] Address: [address] [place] [address] Performed By: #### F LDHCT ####[facility] LABCLIA [id number] [place] [address] [place] HEMATOCRIT, FLUID TYPE Pleural Cavity, Right Normal [facility] Comment on above: Order Comment: Speci men Type: SPECIMEN FROM PLEURA OBTAINED BY THORACENTESISOrdering Facility: [facility] Address: [address] [place] [address] Performed By: #### F LDHCT ####[facility] LABIA [id number] [place] [address] [place] Hematocrit [Volume Fraction] of Blood by Automated counton 09-15-2023 Hematocrit (Bld) [Volume fraction] 30.9 % Low 39.0-51.0 [facility] Comment on above: Order Comment: Speci men Type: BLOOD SPECIMENOrdering Facility: [facility] Address: [address] [place] [address] Performed By: #### 5 8410-2 ####[facility] LABIA [id number] [place] [address] [place] Hemoglobin [Mass/volume] in Bloodon 09-15-2023 Hemoglobin (Bld) [Mass/Vol] 10.4 g/dL Low 13.0-17.0 [facility] Comment on above: Order Comment: Speci men Type: BLOOD SPECIMENOrdering Facility: [facility] Address: [address] [place] [address] Performed By: #### 5 8410-2 ####[facility] LABIA [id number] [place] [address] [place] [facility] LDH (Body fld) [Catalytic activity/Vol] 117 U/L Normal See Comment [facility] Comment on above: Order Comment: Speci men Type: FLUID SPECIMENOrdering Facility: [facility] Address: [address] [place] [address] Result Comment: Pleu ral fluids: Pleural fluid lactate dehydrogenase (LDH) measurements may be useful for classifying pleural effusions as exudates. A ratio of pleural fluid LDH to a concurrent serum LDH > 0.6 is suggestive of exudate.Peritoneal fluids: Ascitic fluid LDH measurements may aid in characterizing secondary peritonitis and should be interpreted along with other clinical and laboratory information.Synovial fluids: Synovial fluid LDH measurements may be useful as an inflammatory marker for various arthritic conditions and should be interpreted along with other clinical and laboratory information.Reference: 1. CLSI. Analysis of Body Fluids in Clinical Chemistry Approved Guideline. CLSI document C49A. LYNETTE Gaytan: Clinical Laboratory Standards [place]: 2007.Reference: 2. John CASTILLO, Paty Espino. Body fluid analysis: clinical utility and applicability of published studies to guide interpretation of today's laboratory testing in serous fluids. Crit Rev Clin Lab Sci, 2013:50(4,5):107 to 124.Reference: 3. Lynette M, Cal A, Moncho CASTILLO. Lactate dehydrogenase activity and its isoenzymes in serum and synovial fluid of patients with rheumatoid arthritis and osteoarthritis. J Rheumatol. 1992:19:529 to 533. Performed By: #### 2 344-0, 2529-6 ####[facility] LABCLIA [id number] [place] [address] [place] Laboratory - Microbiology an d Antimicrobial susceptibilityOrdered By: Emmanuel Sparks on 09-15-2023 Bacteria identified Cx Nom (Body fld) [facility] Leukocytes [#/volume] correc leticia for nucleated erythrocytes in Blood by Automated counon 09-15-2023 WBC corrected for nucl RBC Auto (Bld) [#/Vol] 5.76 k/uL 3.70-11.00 [facility] MANUAL DIFFERENTIAL, BODY FL UIDon 09-15-2023 DIF TTL, BODY FLUID 100 cells counted Normal [facility] Comment on above: Order Comment: Speci men Type: SPECIMEN FROM PLEURA OBTAINED BY THORACENTESISOrdering Facility: [facility] Address: [address] [place] [address] Performed By: #### L [id number], CCBF ####[facility] LABCLIA [id number] [place] [address] [place] EOSIN%, BF 1 % Normal [facility] Comment on above: Order Comment: Speci men Type: SPECIMEN FROM PLEURA OBTAINED BY THORACENTESISOrdering Facility: [facility] Address: [address] [id number] Performed By: #### L [id number], CCBF ####[facility] LABCLIA [id number] [address] [address] [place] LYMPH%, BF 42 % High 18-36 [facility] Comment on above: Order Comment: Speci men Type: SPECIMEN FROM PLEURA OBTAINED BY THORACENTESISOrdering Facility: [facility] Address: [address] [place] [address] Performed By: #### L [id number], CCBF ####[facility] LABCLIA [id number] [place] [address] [place] MACRO%, BF 47 % Low 64-80 [facility] Comment on above: Order Comment: Speci men Type: SPECIMEN FROM PLEURA OBTAINED BY THORACENTESISOrdering Facility: [facility] Address: [address] [place] [address] Performed By: #### L [id number], CCBF ####[facility] LABCLIA [id number] [place] [address] [place] MESO %, BF 5 % High 0-2 [facility] Comment on above: Order Comment: Speci men Type: SPECIMEN FROM PLEURA OBTAINED BY THORACENTESISOrdering Facility: [facility] Address: [address] [place] [address] Performed By: #### L [id number], CCBF ####[facility] LABCLIA [id number] [place] [id number] [place] NEUT%, BF 5 % High 0-1 [facility] Comment on above: Order Comment: Speci men Type: SPECIMEN FROM PLEURA OBTAINED BY THORACENTESISOrdering Facility: [facility] Address: [address] [place] [address] Performed By: #### L [id number], CCBF ####[facility] LABCLIA [id number] [place] [address] [place] MCH [Entitic mass] by Automa leticia counton 09-15-2023 MCH (RBC) [Entitic mass] 30.1 pg 26.0-34.0 [facility] Comment on above: Order Comment: Speci men Type: BLOOD SPECIMENOrdering Facility: [facility] Address: [address] [place] [address] Performed By: #### 5 8410-2 ####[facility] LABIA [id number] [place] [address] [place] MCHC [Mass/volume] by Automa leticia counton 09-15-2023 MCHC (RBC) [Mass/Vol] 33.7 g/dL 30.5-36.0 [facility] Comment on above: Order Comment: Speci men Type: BLOOD SPECIMENOrdering Facility: [facility] Address: [address] [place] [address] Performed By: #### 5 8410-2 ####[facility] [id number] [place] [address] [place] MCV [Entitic volume] by Auto mated counton 09-15-2023 MCV (RBC) [Entitic vol] 89.3 fL 80.0-100.0 [facility] Comment on above: Order Comment: Speci men Type: BLOOD SPECIMENOrdering Facility: [facility] Address: [address] [place] [address] Performed By: #### 5 8410-2 ####[facility] LABIA [id number] [place] [address] [place] Manual body fluid eosinophil s/100 leukocyteson 09-15-2023 Eosinophils/100 WBC Manual cnt (Body fld) 1 % [facility] Manual body fluid lymphocyte s/100 leukocyteson 09-15-2023 Lymphocytes/100 WBC Manual cnt (Body fld) 42 % High 18-36 [facility] Microorganism Spec Culton Microorganism identified Cx Nom (Unsp spec) CULTURE, FUNGAL: No Fungus isolated after 28 days FUNGAL SMEAR: No fungus seen Normal [facility] Comment on above: Performed By: #### 6 11-4, 70661-4 ####[facility] LABCLIA [id number] [facility] [id number] [address] [place] Neutrophils/100 WBC Manual c nt (Body fld)on 09-15-2023 Neutrophils/100 WBC (Body fld) 5 % High 0-1 [facility] No Panel Informationon 09-14 117 U/L See Comment [facility] 135 mg/dL See Comment [facility] 7 U/L 0-30 [facility] 0.1 % Reference range not available [facility] 100 cells counted [facility] 5000 /uL High <2000 [facility] 8.9 [facility] 3.5 g/dL See Comment [facility] Pleural Cavity, Right [facility] 53 /uL <1000 [facility] 47 % Low 64-80 [facility] Slightly Cloudy Abnormal Clear [facility] 5 % High 0-2 [facility] \R\CULTURE, FUNGAL:\ R\ No Fungus isolated after 28 days [facility] See comment [facility] 28 U/L 10-54 [facility] 3.5 g/dL Low 3.9-4.9 [facility] 24 U/L 14-40 [facility] 0.9 mg/dL 0.2-1.3 [facility] 31 mmol/L High 22-30 [facility] 98 mmol/L 98-107 [facility] 1.03 mg/dL 0.73-1.22 [facility] 82 mg/dL 74-99 [facility] 3.9 mmol/L 3.7-5.1 [facility] 138 mmol/L 136-144 [facility] 18 mg/dL 9-24 [facility] 61 U/L 38-113 [facility] 8.9 mg/dL 8.5-10.2 [facility] 78 mL/min/1.73m??? >=60 [facility] Nucleated erythrocytes [#/vo lume] in Blood by Automated counton 09-15-2023 Nucleated RBC (Bld) [#/Vol] 10*3/uL <0.01 [facility] Comment on above: Order Comment: Speci men Type: BLOOD SPECIMENOrdering Facility: [facility] Address: [address] [place] [address] Performed By: #### 5 8410-2 ####[facility] LABCLIA [id number] [place] [address] [place] PH PLEURAL FLUID (FOR USE [facility])on 09-15-2023 Fluid Nom (Body fld) Pleural Cavity, Right Normal [facility] Comment on above: Order Comment: Speci men Type: SPECIMEN FROM PLEURA OBTAINED BY THORACENTESISOrdering Facility: [facility] Address: [address] [place] [address] Performed By: #### L [id number] ####[facility] LABCLIA [id number] [place] [address] [place] pH (Body fld) 8.9 [pH] Normal [facility] Comment on above: Order Comment: Speci men Type: SPECIMEN FROM PLEURA OBTAINED BY THORACENTESISOrdering Facility: [facility] Address: [address] [place] [address] Result Comment: No r eference range has been established for this specimen type.This test was developed and its performance characteristics determined by [facility]'s [facility] Pathology and Laboratory Medicine [place] (-PLMI). It has not been cleared or approved by the FDA. [facility] is regulated under CLIA as qualified to perform high-complexity testing. This test is used for clinical purposes. It should not be regarded as investigational or for research. Performed By: #### L [id number] ####[facility] LABCLIA [id number] [place] [address] [place] Platelet mean volume [Entiti c volume] in Blood by Automated counton 09-15-2023 Platelet mean volume (Bld) [Entitic vol] 10.5 fL 9.0-12.7 [facility] Comment on above: Order Comment: Ricardo ignacio Type: BLOOD SPECIMENOrdering Facility: [facility] Address: [address] [place] [address] Performed By: #### 5 8410-2 ####[facility] LABCLIA [id number] [facility] [place] [address] [place] Platelets [#/volume] in Bloo d by Automated counton 09-15-2023 Platelets (Bld) [#/Vol] 171 10*3/uL 150-400 [facility] Comment on above: Order Comment: Ricardo ignacio Type: BLOOD SPECIMENOrdering Facility: [facility] Address: [address] [place] [address] Performed By: #### 5 8410-2 ####[facility] LABCLIA [id number] [place] [address] [place] Prot Fld-mCncon 09-15-2023 Protein (Body fld) [Mass/Vol] 3.5 g/dL Normal See Comment [facility] Comment on above: Order Comment: Ricardo ignacio Type: SPECIMEN FROM PLEURA OBTAINED BY THORACENTESISOrdering Facility: [facility] Address: [address] [place] [address] Result Comment: Sero us fluids: Effusions are the accumulation of clinically detected fluid in any of the serous cavities. Effusions are further into transudates and exudates, which aid in determining the etiology of the effusion.Transudate: Body fluid total protein measurement < 3.0 g/dL. A ratio of serous fluid total protein to a concurrent serum total protein < 0.5 indicates a transudate.Exudate: Body fluid total protein measurement >= 3.0 g/dL. A ratio of serous fluid total protein to a concurrent serum total protein >= 0.5 indicates an exudate.Reference: 1. CLSI. Analysis of Body Fluids in Clinical Chemistry Approved Guideline. CLSI document C49A. LYNETTE Gaytan: Clinical Laboratory Standards [place]: 2007. Performed By: #### 2 531-1 ####[facility] LABCLIA [id number] [place] [address] [place] Protein [Mass/volume] in Ser um or Plasmaon 09-15-2023 Protein [Mass/Vol] 6.0 g/dL Low 6.3-8.0 [facility] Comment on above: Order Comment: Speci men Type: BLOOD SPECIMENOrdering Facility: [facility] Address: [address] [place] [address] Performed By: #### 2 4323-8 ####[facility] LABCLIA [id number] [place] [address] [place] Serum or plasma anion gap de terminationon 09-15-2023 Anion gap [Moles/Vol] 9 mmol/L 8-15 [facility] Comment on above: Order Comment: Speci men Type: BLOOD SPECIMENOrdering Facility: [facility] Address: [address] [place] [address] Performed By: #### 2 4323-8 ####[facility] LABIA [id number] [place] [address] [place] XR CHEST 1V FRONTAL PORTon 0 09-15-2023 XR CHEST 1V FRONTAL PORT Normal [facility] XR CHEST 1V FRONTAL PORT Normal [facility] Activated partial thrombopla stin time (aPTT) in platelet poor plasma by coagulation aon 09-14-2023 aPTT Coag (PPP) [Time] 61.7 s High 23.0-32.4 [facility] Comment on above: Order Comment: Speci men Type: BLOOD SPECIMENOrdering Facility: [facility] Address: [address] [place] [address] Performed By: #### P TTAC ####[facility] LABCLIA [id number] [place] [address] [place] CBC panel Auto (Bld)on 09-13 WBC (Bld) [#/Vol] 5.91 10*3/uL Normal 3.70-11.00 [facility] Comment on above: Order Comment: Speci men Type: BLOOD SPECIMENOrdering Facility: [facility] Address: [address] [place] [address] Performed By: #### 5 8410-2 ####[facility] LABCLIA [id number] [place] [address] [place] CNOVon 09-14-2023 CNOV Normal [facility] CONSULTon 09-14-2023 CONSULT Normal [facility] CONSULT PROGon 09-14-2023 CONSULT PROG Normal [facility] Comprehensive metabolic 2000 panelon 09-14-2023 Albumin [Mass/Vol] 3.7 g/dL Low 3.9-4.9 [facility] Comment on above: Order Comment: Speci men Type: BLOOD SPECIMENOrdering Facility: [facility] Address: [address] [place] [address] Performed By: #### 1 9123-9, 6-3, 53599-8 ####[facility] LABCLIA [id number] [place] [address] [place] ALP [Catalytic activity/Vol] 66 U/L Normal 38-113 [facility] Comment on above: Order Comment: Speci men Type: BLOOD SPECIMENOrdering Facility: [facility] Address: [address] [place] [address] Performed By: #### 1 9123-9, 3016-3, 27383-2 ####[facility] LABCLIA [id number] [place] [id number] [place] ALT [Catalytic activity/Vol] 26 U/L Normal 10-54 [facility] Comment on above: Order Comment: Speci men Type: BLOOD SPECIMENOrdering Facility: [facility] Address: [address] [place] [address] Performed By: #### 1 9123-9, 3016-3, 22853-9 ####[facility] LABCLIA [id number] [place] [id number] [place] AST [Catalytic activity/Vol] 18 U/L Normal 14-40 [facility] Comment on above: Order Comment: Speci men Type: BLOOD SPECIMENOrdering Facility: [facility] Address: [address] [place] [address] Performed By: #### 1 9123-9, 3015-3, 50914-7 ####[facility] LABCLIA [id number] [place] [address] [place] Bilirubin [Mass/Vol] 1.0 mg/dL Normal 0.2-1.3 [facility] Comment on above: Order Comment: Speci men Type: BLOOD SPECIMENOrdering Facility: [facility] Address: [address] [place] [address] Performed By: #### 1 9123-9, 3, 79833-4 ####[facility] LABIA [id number] [place] [address] [place] Calcium [Mass/Vol] 9.1 mg/dL Normal 8.5-10.2 [facility] Comment on above: Order Comment: Speci men Type: BLOOD SPECIMENOrdering Facility: [facility] Address: [address] [place] [address] Performed By: #### 1 9123-9, 3, 19488-2 ####[facility] LABCLIA [id number] [place] [id number] [place] Chloride [Moles/Vol] 97 mmol/L Low 98-107 [facility] Comment on above: Order Comment: Speci men Type: BLOOD SPECIMENOrdering Facility: [facility] Address: [address] [place] [address] Performed By: #### 1 9123-9, 3015-3, 26816-4 ####[facility] LABCLIA [id number] [place] [address] [place] CO2 [Moles/Vol] 31 mmol/L High 22-30 [facility] Comment on above: Order Comment: Speci men Type: BLOOD SPECIMENOrdering Facility: [facility] Address: [address] [place] [address] Performed By: #### 1 9123-9, 3016-3, 79667-8 ####[facility] LABCLIA [id number] [place] [address] [place] Creatinine [Mass/Vol] 1.12 mg/dL Normal 0.73-1.22 [facility] Comment on above: Order Comment: Speci men Type: BLOOD SPECIMENOrdering Facility: [facility] Address: [address] [place] [address] Performed By: #### 1 9123-9, 6-3, 21442-7 ####[facility] LABIA [id number] [place] [address] [place] Creatinine and Glomerular filtration rate.predicted panel (S/P/Bld) 71 mL/min/1.73m??? Normal >=60 [facility] Comment on above: Order Comment: Ricardo ignacio Type: BLOOD SPECIMENOrdering Facility: [facility] Address: [address] [place] [address] Result Comment: Aileen mated Glomerular Filtration Rate [...] accurately reflect actual GFR. Performed By: #### 1 9123-9, 6-3, 84632-3 ####[facility] LABCLIA [id number] [place] [id number] [place] Glucose [Mass/Vol] 167 mg/dL High 74-99 [facility] Comment on above: Order Comment: Speci men Type: BLOOD SPECIMENOrdering Facility: [facility] Address: [address] [place], [place] [id number] Result Comment: The [place] [employer] (ADA) provides guidance for cutoff values for fasting glucose and random glucose. The ADA defines fasting as no caloric intake for at least 8 hours. Fasting plasma glucose results between 100 to 125 mg/dL indicate increased risk for diabetes (prediabetes).Fasting plasma glucose results greater than or equal to 126 mg/dL meet the criteria for diagnosis of diabetes. In the absence of unequivocal hyperglycemia, results should be confirmed by repeat testing. In a patient with classic symptoms of hyperglycemia or hyperglycemic crisis, random plasma glucose results greater than or equal to 200 mg/dL meet the criteria for diagnosis of diabetes.Reference: Standards of Medical Care in Diabetes 2016, [place] [employer]. Diabetes Care. 2016.39(Suppl 1). Performed By: #### 1 9123-9, 6-3, 99064-6 ####[facility] LABCLIA [id number] [place] [address] [place] Potassium [Moles/Vol] 4.4 mmol/L Normal 3.7-5.1 [facility] Comment on above: Order Comment: Ricardo men Type: BLOOD SPECIMENOrdering Facility: [facility] Address: [address] [place] [address] Performed By: #### 1 9123-9, 6-3, 44209-6 ####[facility] LABCLIA [id number] [place] [id number] [place] Sodium [Moles/Vol] 136 mmol/L Normal 136-144 [facility] Comment on above: Order Comment: Ricardo men Type: BLOOD SPECIMENOrdering Facility: [facility] Address: [address] [place] [address] Performed By: #### 1 9123-9, 3015-3, 60273-2 ####[facility] LABCLIA [id number] [address] [address] [place] Urea nitrogen [Mass/Vol] 22 mg/dL Normal 9-24 [facility] Comment on above: Order Comment: Speci men Type: BLOOD SPECIMENOrdering Facility: [facility] Address: [address] [place] [address] Performed By: #### 1 9123-9, 3016-3, 32873-4 ####[facility] LABCLIA [id number] [place] [address] [place] Erythrocyte distribution wid th [Ratio] by Automated counton 09-14-2023 Erythrocyte distribution width (RBC) [Ratio] 16.1 % High 11.5-15.0 [facility] Comment on above: Order Comment: Speci men Type: BLOOD SPECIMENOrdering Facility: [facility] Address: [address] [place] [address] Performed By: #### 5 8410-2 ####[facility] LABCLIA [id number] [place] [address] [place] Erythrocytes [#/volume] in B lood by Automated counton 09-14-2023 RBC (Bld) [#/Vol] 3.57 10*6/uL Low 4.20-6.00 [facility] Comment on above: Order Comment: Speci men Type: BLOOD SPECIMENOrdering Facility: [facility] Address: [address] [place] [address] Performed By: #### 5 8410-2 ####[facility] LABCLIA [id number] [place] [address] [place] Hematocrit [Volume Fraction] of Blood by Automated counton 09-14-2023 Hematocrit (Bld) [Volume fraction] 31.1 % Low 39.0-51.0 [facility] Comment on above: Order Comment: Speci men Type: BLOOD SPECIMENOrdering Facility: [facility] Address: [address] [place] [address] Performed By: #### 5 8410-2 ####[facility] LABCLIA [id number] [place] [id number] [address] [place] Hemoglobin [Mass/volume] in Bloodon 09-14-2023 Hemoglobin (Bld) [Mass/Vol] 10.8 g/dL Low 13.0-17.0 [facility] Comment on above: Order Comment: Speci men Type: BLOOD SPECIMENOrdering Facility: [facility] Address: [address] [place] [address] Performed By: #### 5 8410-2 ####[facility] LABCLIA [id number] [place] [address] [place] Leukocytes [#/volume] correc leticia for nucleated erythrocytes in Blood by Automated counon 09-14-2023 WBC corrected for nucl RBC Auto (Bld) [#/Vol] 5.91 k/uL 3.70-11.00 [facility] MCH [Entitic mass] by Automa leticia counton 09-14-2023 MCH (RBC) [Entitic mass] 30.3 pg 26.0-34.0 [facility] Comment on above: Order Comment: Speci men Type: BLOOD SPECIMENOrdering Facility: [facility] Address: [address] [place] [address] Performed By: #### 5 8410-2 ####[facility] LABIA [id number] [place] [address] [place] MCHC [Mass/volume] by Automa leticia counton 09-14-2023 MCHC (RBC) [Mass/Vol] 34.7 g/dL 30.5-36.0 [facility] Comment on above: Order Comment: Speci men Type: BLOOD SPECIMENOrdering Facility: [facility] Address: [address] [place] [address] Performed By: #### 5 8410-2 ####[facility] LABIA [id number] [place] [address] [place] MCV [Entitic volume] by Auto mated counton 09-14-2023 MCV (RBC) [Entitic vol] 87.1 fL 80.0-100.0 [facility] Comment on above: Order Comment: Speci men Type: BLOOD SPECIMENOrdering Facility: [facility] Address: [address] [place] [address] Performed By: #### 5 8410-2 ####[facility] LABCLIA [id number] [place] [id number] [place] Magnesium SerPl-mCncon 09-13 Magnesium [Mass/Vol] 2.0 mg/dL Normal 1.7-2.3 [facility] Comment on above: Order Comment: Speci men Type: BLOOD SPECIMENOrdering Facility: [facility] Address: [address] [place] [address] Performed By: #### 1 9123-9, 3016-3, 05812-0 ####[facility] LABCLIA [id number] [place] [address] [place] No Panel Informationon 09-13 26 U/L 10-54 [facility] 2.0 mg/dL 1.7-2.3 [facility] 4.250 mIU/L High 0.270-4.200 [facility] 3.7 g/dL Low 3.9-4.9 [facility] 18 U/L 14-40 [facility] 1.0 mg/dL 0.2-1.3 [facility] 31 mmol/L High 22-30 [facility] 97 mmol/L Low 98-107 [facility] 1.12 mg/dL 0.73-1.22 [facility] 167 mg/dL High 74-99 [facility] 4.4 mmol/L 3.7-5.1 [facility] 136 mmol/L 136-144 [facility] 22 mg/dL 9-24 [facility] 66 U/L 38-113 [facility] 9.1 mg/dL 8.5-10.2 [facility] 71 mL/min/1.73m??? >=60 [facility] Nucleated erythrocytes [#/vo lume] in Blood by Automated counton 09-14-2023 Nucleated RBC (Bld) [#/Vol] 10*3/uL <0.01 [facility] Comment on above: Order Comment: Speci men Type: BLOOD SPECIMENOrdering Facility: [facility] Address: [address] [place] [address] Performed By: #### 5 8410-2 ####[facility] LABCLIA [id number] [place] [address] [place] PTT, ANTICOAGULANT THERAPYon 09-14-2023 aPTT Coag (PPP) [Time] 68.6 s High 23.0-32.4 [facility] Comment on above: Order Comment: Speci men Type: BLOOD SPECIMENOrdering Facility: [facility] Address: [address] [place] [address] Performed By: #### P TTAC ####[facility] LABCLIA [id number] [place] [address] [place] aPTT Coag (PPP) [Time] 48.5 s High 23.0-32.4 [facility] Comment on above: Order Comment: Speci men Type: BLOOD SPECIMENOrdering Facility: [facility] Address: [address] [place] [address] Performed By: #### P TTAC ####[facility] LABIA [id number] [place] [address] [place] Platelet mean volume [Entiti c volume] in Blood by Automated counton 09-14-2023 Platelet mean volume (Bld) [Entitic vol] 10.4 fL 9.0-12.7 [facility] Comment on above: Order Comment: Speci men Type: BLOOD SPECIMENOrdering Facility: [facility] Address: [address] [place] [address] Performed By: #### 5 8410-2 ####[facility] LABCLIA [id number] [place] [address] [place] Platelets [#/volume] in Bloo d by Automated counton 09-14-2023 Platelets (Bld) [#/Vol] 164 10*3/uL 150-400 [facility] Comment on above: Order Comment: Speci men Type: BLOOD SPECIMENOrdering Facility: [facility] Address: [address] [place] [address] Performed By: #### 5 8410-2 ####[facility] LABCLIA [id number] [place] [address] [place] Protein [Mass/volume] in Ser um or Plasmaon 09-14-2023 Protein [Mass/Vol] 6.3 g/dL 6.3-8.0 [facility] Comment on above: Order Comment: Speci men Type: BLOOD SPECIMENOrdering Facility: [facility] Address: [address] [place] [address] Performed By: #### 1 9123-9, 3016-3, 31587-4 ####[facility] LABCLIA [id number] [place] [address] [place] Serum or plasma anion gap de terminationon 09-14-2023 Anion gap [Moles/Vol] 8 mmol/L 8-15 [facility] Comment on above: Order Comment: Speci men Type: BLOOD SPECIMENOrdering Facility: [facility] Address: [address] [place] [address] Performed By: #### 1 9123-9, 3016-3, 10150-7 ####[facility] LABCLIA [id number] [place] [id number] [place] TSH SerPl-aCncon 09-14-2023 TSH Qn 4.250 m[IU]/L High 0.270-4.200 [facility] Comment on above: Order Comment: Speci men Type: BLOOD SPECIMENOrdering Facility: [facility] Address: [address] [place] [address] Performed By: #### 1 9123-9, 3016-3, 77583-6 ####[facility] LABCLIA [id number] [place] [id number] [place] XR CHEST 1V FRONTAL PORTon 0 09-14-2023 XR CHEST 1V FRONTAL PORT Normal [facility] Activated partial thrombopla stin time (aPTT) in platelet poor plasma by coagulation aon 09-13-2023 aPTT Coag (PPP) [Time] 55.8 s High 23.0-32.4 [facility] Comment on above: Order Comment: Speci men Type: BLOOD SPECIMENOrdering Facility: [facility] Address: [address] [place] [address] Performed By: #### P TTAC ####[facility] [id number] [place] [address] [place] CASE MANAGEMon 09-13-2023 CASE MANAGEM Normal [facility] CASE MGT INIT ASSESon 2023 CASE MGT INIT ASSES Normal [facility] CBC panel Auto (Bld)on 09-12 WBC (Bld) [#/Vol] 4.82 10*3/uL Normal 3.70-11.00 [facility] Comment on above: Order Comment: Speci men Type: BLOOD SPECIMENOrdering Facility: [facility] Address: [address] [place] [address] Performed By: #### 5 8410-2 ####[facility] [id number] [place] [address] [place] CONSULT PROGon 09-13-2023 CONSULT PROG Normal [facility] CT CARDIAC CAP WO IVCONon CT CARDIAC CAP WO IVCON Normal [facility] Comprehensive metabolic 2000 panelon 09-13-2023 Albumin [Mass/Vol] 3.5 g/dL Low 3.9-4.9 [facility] Comment on above: Order Comment: Speci men Type: BLOOD SPECIMENOrdering Facility: [facility] Address: [address] [place] [address] Performed By: #### 2 432-8, ####[facility] LABCLIA [id number] [place] [id number] [place] ALP [Catalytic activity/Vol] 62 U/L Normal 38-113 [facility] Comment on above: Order Comment: Speci men Type: BLOOD SPECIMENOrdering Facility: [facility] Address: [address] [place] [address] Performed By: #### 2 4322-8, ####[facility] LABCLIA [id number] [place] [id number] [place] ALT [Catalytic activity/Vol] 26 U/L Normal 10-54 [facility] Comment on above: Order Comment: Speci men Type: BLOOD SPECIMENOrdering Facility: [facility] Address: [address] [place] [address] Performed By: #### 2 8, ####[facility] LABCLIA [id number] [place] [address] [place] AST [Catalytic activity/Vol] 15 U/L Normal 14-40 [facility] Comment on above: Order Comment: Speci men Type: BLOOD SPECIMENOrdering Facility: [facility] Address: [address] [place] [address] Performed By: #### 2 4322-8, ####[facility] LABCLIA [id number] [place] [address] [place] Bilirubin [Mass/Vol] 1.0 mg/dL Normal 0.2-1.3 [facility] Comment on above: Order Comment: Speci men Type: BLOOD SPECIMENOrdering Facility: [facility] Address: [address] [place] [address] Performed By: #### 2 4323-8, ####[facility] LABCLIA [id number] [place] [id number] [place] Calcium [Mass/Vol] 9.0 mg/dL Normal 8.5-10.2 [facility] Comment on above: Order Comment: Speci men Type: BLOOD SPECIMENOrdering Facility: [facility] [facility] Address: [address] [place] [address] Performed By: #### 2 432-8, ####[facility] LABCLIA [id number] [facility] [place] [id number] [place] Chloride [Moles/Vol] 99 mmol/L Normal 98-107 [facility] Comment on above: Order Comment: Speci men Type: BLOOD SPECIMENOrdering Facility: [facility] Address: [address] [place] [address] Performed By: #### 2 4328, ####[facility] LABCLIA [id number] [place] [address] [place] CO2 [Moles/Vol] 30 mmol/L Normal 22-30 [facility] Comment on above: Order Comment: Speci men Type: BLOOD SPECIMENOrdering Facility: [facility] Address: [address] [place] [address] Performed By: #### 2 4328, ####[facility] LABCLIA [id number] [place] [address] [place] Creatinine [Mass/Vol] 1.01 mg/dL Normal 0.73-1.22 [facility] Comment on above: Order Comment: Speci men Type: BLOOD SPECIMENOrdering Facility: [facility] Address: [address] [place] [address] Performed By: #### 2 432-8, ####[facility] LABCLIA [id number] [place] [id number] [place] Creatinine and Glomerular filtration rate.predicted panel (S/P/Bld) 80 mL/min/1.73m??? Normal >=60 [facility] Comment on above: Order Comment: Speci men Type: BLOOD SPECIMENOrdering Facility: [facility] Address: [address] [place] [address] Result Comment: Aileen mated Glomerular Filtration Rate [...] actual GFR. Performed By: #### 2 4323-8, ####[facility] LABIA [id number] [place] [id number] [place] Glucose [Mass/Vol] 131 mg/dL High 74-99 [facility] Comment on above: Order Comment: Ricardo ignacio Type: BLOOD SPECIMENOrdering Facility: [facility] Address: [address] [place] [address] Result Comment: The [place] [employer] (ADA) provides guidance for cutoff values for fasting glucose and random glucose. The ADA defines fasting as no caloric intake for at least 8 hours. Fasting plasma glucose results between 100 to 125 mg/dL indicate increased risk for diabetes (prediabetes).Fasting plasma glucose results greater than or equal to 126 mg/dL meet the criteria for diagnosis of diabetes. In the absence of unequivocal hyperglycemia, results should be confirmed by repeat testing. In a patient with classic symptoms of hyperglycemia or hyperglycemic crisis, random plasma glucose results greater than or equal to 200 mg/dL meet the criteria for diagnosis of diabetes.Reference: Standards of Medical Care in Diabetes 2016, [place] [employer]. Diabetes Care. 2016.39(Suppl 1). Performed By: #### 2 4323-8, ####[facility] [id number] [address] [address] [place] Potassium [Moles/Vol] 4.1 mmol/L Normal 3.7-5.1 [facility] Comment on above: Order Comment: Ricardo ignacio Type: BLOOD SPECIMENOrdering Facility: [facility] Address: [address] [place] [address] Performed By: #### 2 4323-8, 66810-6 ####[facility] LABCLIA [id number] [address] [address] [place] Sodium [Moles/Vol] 138 mmol/L Normal 136-144 [facility] Comment on above: Order Comment: Speci men Type: BLOOD SPECIMENOrdering Facility: [facility] Address: [address] [place], [place] [address] Performed By: #### 2 4323-8, ####[facility] LABIA [id number] [place] [address] [place] Urea nitrogen [Mass/Vol] 19 mg/dL Normal 9-24 [facility] Comment on above: Order Comment: Speci men Type: BLOOD SPECIMENOrdering Facility: [facility] Address: [address] [place] [address] Performed By: #### 2 4323-8, ####[facility] LABIA [id number] [place] [id number] [place] Erythrocyte distribution wid th [Ratio] by Automated counton 09-13-2023 Erythrocyte distribution width (RBC) [Ratio] 16.1 % High 11.5-15.0 [facility] Comment on above: Order Comment: Speci men Type: BLOOD SPECIMENOrdering Facility: [facility] Address: [address] [place] [address] Performed By: #### 5 8410-2 ####[facility] [id number] [place] [id number] [place] Erythrocytes [#/volume] in B lood by Automated counton 09-13-2023 RBC (Bld) [#/Vol] 3.46 10*6/uL Low 4.20-6.00 [facility] Comment on above: Order Comment: Speci men Type: BLOOD SPECIMENOrdering Facility: [facility] Address: [address] [place] [address] Performed By: #### 5 8410-2 ####[facility] LABCLIA [id number] [place] [address] [place] Hematocrit [Volume Fraction] of Blood by Automated counton 09-13-2023 Hematocrit (Bld) [Volume fraction] 30.8 % Low 39.0-51.0 [facility] Comment on above: Order Comment: Speci men Type: BLOOD SPECIMENOrdering Facility: [facility] Address: [address] [place] [address] Performed By: #### 5 8410-2 ####[facility] LABIA [id number] [place] [address] [place] Hemoglobin [Mass/volume] in Bloodon 09-13-2023 Hemoglobin (Bld) [Mass/Vol] 10.4 g/dL Low 13.0-17.0 [facility] Comment on above: Order Comment: Speci men Type: BLOOD SPECIMENOrdering Facility: [facility] Address: [address] [place] [address] Performed By: #### 5 8410-2 ####[facility] LABIA [id number] [place] [address] [place] Leukocytes [#/volume] correc leticia for nucleated erythrocytes in Blood by Automated counon 09-13-2023 WBC corrected for nucl RBC Auto (Bld) [#/Vol] 4.82 k/uL 3.70-11.00 [facility] MCH [Entitic mass] by Automa leticia counton 09-13-2023 MCH (RBC) [Entitic mass] 30.1 pg 26.0-34.0 [facility] Comment on above: Order Comment: Speci men Type: BLOOD SPECIMENOrdering Facility: [facility] Address: [address] [place] [address] Performed By: #### 5 8410-2 ####[facility] LABIA [id number] [place] [address] [place] MCHC [Mass/volume] by Automa leticia counton 09-13-2023 MCHC (RBC) [Mass/Vol] 33.8 g/dL 30.5-36.0 [facility] Comment on above: Order Comment: Speci men Type: BLOOD SPECIMENOrdering Facility: [facility] Address: [address] [place] [address] Performed By: #### 5 8410-2 ####[facility] LABCLIA [id number] [place] [address] [place] MCV [Entitic volume] by Auto mated counton 09-13-2023 MCV (RBC) [Entitic vol] 89.0 fL 80.0-100.0 [facility] Comment on above: Order Comment: Speci men Type: BLOOD SPECIMENOrdering Facility: [facility] Address: [address] [place] [address] Performed By: #### 5 8410-2 ####[facility] LABCLIA [id number] [address] [place] Magnesium SerPl-mCncon 09-12 Magnesium [Mass/Vol] 2.0 mg/dL Normal 1.7-2.3 [facility] Comment on above: Order Comment: Speci men Type: BLOOD SPECIMENOrdering Facility: [facility] Address: [address] [place] [address] Performed By: #### 2 4323-8, 23127-1 ####[facility] LABIA [id number] [place] [id number] [place] No Panel Informationon 09-12 26 U/L 10-54 [facility] 2.0 mg/dL 1.7-2.3 [facility] 3.5 g/dL Low 3.9-4.9 [facility] 15 U/L 14-40 [facility] 1.0 mg/dL 0.2-1.3 [facility] 30 mmol/L 22-30 [facility] 99 mmol/L 98-107 [facility] 1.01 mg/dL 0.73-1.22 [facility] 131 mg/dL High 74-99 [facility] 4.1 mmol/L 3.7-5.1 [facility] 138 mmol/L 136-144 [facility] 19 mg/dL 9-24 [facility] 62 U/L 38-113 [facility] 9.0 mg/dL 8.5-10.2 [facility] 80 mL/min/1.73m??? >=60 [facility] Nucleated erythrocytes [#/vo lume] in Blood by Automated counton 09-13-2023 Nucleated RBC (Bld) [#/Vol] 10*3/uL <0.01 [facility] Comment on above: Order Comment: Speci men Type: BLOOD SPECIMENOrdering Facility: [facility] Address: [address] [place] [address] Performed By: #### 5 8410-2 ####[facility] LABCLIA [id number] [place] [address] [place] Platelet mean volume [Entiti c volume] in Blood by Automated counton 09-13-2023 Platelet mean volume (Bld) [Entitic vol] 10.7 fL 9.0-12.7 [facility] Comment on above: Order Comment: Speci men Type: BLOOD SPECIMENOrdering Facility: [facility] Address: [address] [place] [address] Performed By: #### 5 8410-2 ####[facility] LABCLIA [id number] [place] [address] [place] Platelets [#/volume] in Bloo d by Automated counton 09-13-2023 Platelets (Bld) [#/Vol] 161 10*3/uL 150-400 [facility] Comment on above: Order Comment: Speci men Type: BLOOD SPECIMENOrdering Facility: [facility] Address: [address] [place] [address] Performed By: #### 5 8410-2 ####[facility] LABCLIA [id number] [place] [id number] [place] Protein [Mass/volume] in Ser um or Plasmaon 09-13-2023 Protein [Mass/Vol] 6.1 g/dL Low 6.3-8.0 [facility] Comment on above: Order Comment: Speci men Type: BLOOD SPECIMENOrdering Facility: [facility] Address: [address] [place] [address] Performed By: #### 2 4323-8, 21208-4 ####[facility] LABCLIA [id number] [place] [address] [place] Serum or plasma anion gap de terminationon 09-13-2023 Anion gap [Moles/Vol] 9 mmol/L 8-15 [facility] Comment on above: Order Comment: Speci men Type: BLOOD SPECIMENOrdering Facility: [facility] Address: [address] [place] [address] Performed By: #### 2 4323-8, ####[facility] LABCLIA [id number] [place] [address] [place] US CAROTID ARTERIES [facility] LABon 09-13-2023 US CAROTID ARTERIES [facility] LAB Normal [facility] US LEG VEIN MAP [facility] LABo n 09-13-2023 US LEG VEIN MAP [facility] LAB Normal [facility] US MAMMARY ARTERY [facility] LA Bon 09-13-2023 US MAMMARY ARTERY [facility] LAB Normal [facility] US RADIAL ARTERY MAP [facility] LABon 09-13-2023 US RADIAL ARTERY MAP [facility] LAB Normal [facility] Activated partial thrombopla stin time (aPTT) in platelet poor plasma by coagulation aon 09-12-2023 aPTT Coag (PPP) [Time] 62.9 s High 23.0-32.4 [facility] Comment on above: Order Comment: Speci men Type: BLOOD SPECIMENOrdering Facility: [facility] Address: [address] [place] [address] Performed By: #### P TTA ####[facility] LABCLIA [id number] [place] [address] [place] CBC panel Auto (Bld)on 09-11 WBC (Bld) [#/Vol] 5.84 10*3/uL Normal 3.70-11.00 [facility] Comment on above: Order Comment: Speci men Type: BLOOD SPECIMENOrdering Facility: [facility] Address: [address] [place] [address] Performed By: #### 5 8410-2 ####[facility] LABCLIA [id number] [place] [address] [place] CONSULTon 09-12-2023 CONSULT Normal [facility] CONSULT Normal [facility] Comprehensive metabolic 2000 panelon 09-12-2023 Albumin [Mass/Vol] 3.3 g/dL Low 3.9-4.9 [facility] Comment on above: Order Comment: Speci men Type: BLOOD SPECIMENOrdering Facility: [facility] Address: [address] [place] [address] Performed By: #### 2 4323-8, 89981-5 ####[facility] LABCLIA [id number] [place] [address] [place] ALP [Catalytic activity/Vol] 59 U/L Normal 38-113 [facility] Comment on above: Order Comment: Speci men Type: BLOOD SPECIMENOrdering Facility: [facility] Address: [address] [place] [address] Performed By: #### 2 4323-8, 87520-8 ####[facility] LABCLIA [id number] [place] [address] [place] ALT [Catalytic activity/Vol] 31 U/L Normal 10-54 [facility] Comment on above: Order Comment: Speci men Type: BLOOD SPECIMENOrdering Facility: [facility] Address: [address] [place] [address] Performed By: #### 2 4323-8, ####[facility] LABCLIA [id number] [place] [id number] [place] AST [Catalytic activity/Vol] 18 U/L Normal 14-40 [facility] Comment on above: Order Comment: Speci men Type: BLOOD SPECIMENOrdering Facility: [facility] Address: [address] [place] [address] Performed By: #### 2 432-8, ####[facility] LABCLIA [id number] [place] [address] [place] Bilirubin [Mass/Vol] 1.3 mg/dL Normal 0.2-1.3 [facility] Comment on above: Order Comment: Speci men Type: BLOOD SPECIMENOrdering Facility: [facility] Address: [address] [place] [address] Performed By: #### 2 4322-10, ####[facility] LABCLIA [id number] [place] [address] [place] Calcium [Mass/Vol] 9.1 mg/dL Normal 8.5-10.2 [facility] Comment on above: Order Comment: Speci men Type: BLOOD SPECIMENOrdering Facility: [facility] Address: [address] [place], [place] [id number] Performed By: #### 2 4328, ####[facility] LABCLIA [id number] [place] [id number] [place] Chloride [Moles/Vol] 101 mmol/L Normal 98-107 [facility] Comment on above: Order Comment: Speci men Type: BLOOD SPECIMENOrdering Facility: [facility] Address: [address] [place], [place] [id number] Performed By: #### 2 4323-8, ####[facility] LABCLIA [id number] [place] [address] [place] CO2 [Moles/Vol] 32 mmol/L High 22-30 [facility] Comment on above: Order Comment: Speci men Type: BLOOD SPECIMENOrdering Facility: [facility] Address: [address] [place] [address] Performed By: #### 2 4323-8, ####[facility] LABCLIA [id number] [place] [address] [place] Creatinine [Mass/Vol] 1.08 mg/dL Normal 0.73-1.22 [facility] Comment on above: Order Comment: Speci men Type: BLOOD SPECIMENOrdering Facility: [facility] Address: [address] [place] [address] Performed By: #### 2 4323-8, ####[facility] LABCLIA [id number] [place] [address] [place] Creatinine and Glomerular filtration rate.predicted panel (S/P/Bld) 74 mL/min/1.73m??? Normal >=60 [facility] Comment on above: Order Comment: Speci men Type: BLOOD SPECIMENOrdering Facility: [facility] Address: [address] [place] [address] Result Comment: Aileen mated Glomerular Filtration Rate [...] actual GFR. Performed By: #### 2 4323-8, ####[facility] LABCLIA [id number] [place] [address] [place] Glucose [Mass/Vol] 126 mg/dL High 74-99 [facility] Comment on above: Order Comment: Speci men Type: BLOOD SPECIMENOrdering Facility: [facility] Address: [address] [place] [address] Result Comment: The [place] [employer] (ADA) provides guidance for cutoff values for fasting glucose and random glucose. The ADA defines fasting as no caloric intake for at least 8 hours. Fasting plasma glucose results between 100 to 125 mg/dL indicate increased risk for diabetes (prediabetes).Fasting plasma glucose results greater than or equal to 126 mg/dL meet the criteria for diagnosis of diabetes. In the absence of unequivocal hyperglycemia, results should be confirmed by repeat testing. In a patient with classic symptoms of hyperglycemia or hyperglycemic crisis, random plasma glucose results greater than or equal to 200 mg/dL meet the criteria for diagnosis of diabetes.Reference: Standards of Medical Care in Diabetes 2016, [place] [employer]. Diabetes Care. 2016.39(Suppl 1). Performed By: #### 2 4322-10, ####[facility] LABCLIA [id number] [place] [address] [place] Potassium [Moles/Vol] 4.5 mmol/L Normal 3.7-5.1 [facility] Comment on above: Order Comment: Speci men Type: BLOOD SPECIMENOrdering Facility: [facility] Address: [address] [place] [address] Performed By: #### 2 4322-10, ####[facility] LABCLIA [id number] [place] [address] [place] Sodium [Moles/Vol] 138 mmol/L Normal 136-144 [facility] Comment on above: Order Comment: Speci men Type: BLOOD SPECIMENOrdering Facility: [facility] Address: [address] [place] [address] Performed By: #### 2 4322-10, ####[facility] LABCLIA [id number] [place] [id number] [place] Urea nitrogen [Mass/Vol] 20 mg/dL Normal 9-24 [facility] Comment on above: Order Comment: Speci men Type: BLOOD SPECIMENOrdering Facility: [facility] Address: [address] [place] [address] Performed By: #### 2 4323-8, 27663-6 ####[facility] LABCLIA [id number] [place] [address] [place] Erythrocyte distribution wid th [Ratio] by Automated counton 09-12-2023 Erythrocyte distribution width (RBC) [Ratio] 16.1 % High 11.5-15.0 [facility] Comment on above: Order Comment: Speci men Type: BLOOD SPECIMENOrdering Facility: [facility] Address: [address] [place] [address] Performed By: #### 5 8410-2 ####[facility] LABCLIA [id number] [place] [address] [place] Erythrocytes [#/volume] in B lood by Automated counton 09-12-2023 RBC (Bld) [#/Vol] 3.40 10*6/uL Low 4.20-6.00 [facility] Comment on above: Order Comment: Speci men Type: BLOOD SPECIMENOrdering Facility: [facility] Address: [address] [place] [address] Performed By: #### 5 8410-2 ####[facility] LABCLIA [id number] [place] [address] [place] Hematocrit [Volume Fraction] of Blood by Automated counton 09-12-2023 Hematocrit (Bld) [Volume fraction] 30.2 % Low 39.0-51.0 [facility] Comment on above: Order Comment: Speci men Type: BLOOD SPECIMENOrdering Facility: [facility] Address: [address] [place] [address] Performed By: #### 5 8410-2 ####[facility] LABCLIA [id number] [place] [address] [place] Hemoglobin [Mass/volume] in Bloodon 09-12-2023 Hemoglobin (Bld) [Mass/Vol] 10.4 g/dL Low 13.0-17.0 [facility] Comment on above: Order Comment: Speci men Type: BLOOD SPECIMENOrdering Facility: [facility] Address: [address] [place] [address] Performed By: #### 5 8410-2 ####[facility] LABCLIA [id number] [place] [address] [place] Leukocytes [#/volume] correc leticia for nucleated erythrocytes in Blood by Automated counon 09-12-2023 WBC corrected for nucl RBC Auto (Bld) [#/Vol] 5.84 k/uL 3.70-11.00 [facility] MCH [Entitic mass] by Automa leticia counton 09-12-2023 MCH (RBC) [Entitic mass] 30.6 pg 26.0-34.0 [facility] Comment on above: Order Comment: Speci men Type: BLOOD SPECIMENOrdering Facility: [facility] Address: [address] [place] [address] Performed By: #### 5 8410-2 ####[facility] LABIA [id number] [place] [address] [place] MCHC [Mass/volume] by Automa leticia counton 09-12-2023 MCHC (RBC) [Mass/Vol] 34.4 g/dL 30.5-36.0 [facility] Comment on above: Order Comment: Speci men Type: BLOOD SPECIMENOrdering Facility: [facility] Address: [address] [place] [address] Performed By: #### 5 8410-2 ####[facility] LABIA [id number] [place] [address] [place] MCV [Entitic volume] by Auto mated counton 09-12-2023 MCV (RBC) [Entitic vol] 88.8 fL 80.0-100.0 [facility] Comment on above: Order Comment: Speci men Type: BLOOD SPECIMENOrdering Facility: [facility] Address: [address] [place] [address] Performed By: #### 5 8410-2 ####[facility] LABCLIA [id number] [place] [id number] [place] Magnesium SerPl-mCncon 09-11 Magnesium [Mass/Vol] 2.0 mg/dL Normal 1.7-2.3 [facility] Comment on above: Order Comment: Speci men Type: BLOOD SPECIMENOrdering Facility: [facility] Address: [address] [place] [address] Performed By: #### 2 4323-8, 87398-3 ####[facility] LABCLIA [id number] [place] [id number] [place] No Panel Informationon 09-11 Not detected Not Detected [facility] 31 U/L 10-54 [facility] 2.0 mg/dL 1.7-2.3 [facility] 3.3 g/dL Low 3.9-4.9 [facility] 18 U/L 14-40 [facility] 1.3 mg/dL 0.2-1.3 [facility] 32 mmol/L High 22-30 [facility] 101 mmol/L 98-107 [facility] 1.08 mg/dL 0.73-1.22 [facility] 126 mg/dL High 74-99 [facility] 4.5 mmol/L 3.7-5.1 [facility] 138 mmol/L 136-144 [facility] 20 mg/dL 9-24 [facility] 59 U/L 38-113 [facility] 9.1 mg/dL 8.5-10.2 [facility] 74 mL/min/1.73m??? >=60 [facility] Nucleated erythrocytes [#/vo lume] in Blood by Automated counton 09-12-2023 Nucleated RBC (Bld) [#/Vol] 10*3/uL <0.01 [facility] Comment on above: Order Comment: Speci men Type: BLOOD SPECIMENOrdering Facility: [facility] Address: [address] [place] [address] Performed By: #### 5 8410-2 ####[facility] LABIA [id number] [place] [address] [place] Platelet mean volume [Entiti c volume] in Blood by Automated counton 09-12-2023 Platelet mean volume (Bld) [Entitic vol] 10.2 fL 9.0-12.7 [facility] Comment on above: Order Comment: Speci men Type: BLOOD SPECIMENOrdering Facility: [facility] Address: [address] [place] [address] Performed By: #### 5 8410-2 ####[facility] LABIA [id number] [place] [address] [place] Platelets [#/volume] in Bloo d by Automated counton 09-12-2023 Platelets (Bld) [#/Vol] 143 10*3/uL Low 150-400 [facility] Comment on above: Order Comment: Speci men Type: BLOOD SPECIMENOrdering Facility: [facility] Address: [address] [place] [address] Performed By: #### 5 8410-2 ####[facility] LABIA [id number] [place] [address] [place] [place] Protein [Mass/volume] in Ser um or Plasmaon 09-12-2023 Protein [Mass/Vol] 5.8 g/dL Low 6.3-8.0 [facility] Comment on above: Order Comment: Speci men Type: BLOOD SPECIMENOrdering Facility: [facility] Address: [address] [place] [address] Performed By: #### 2 4323-8, 96992-8 ####[facility] LABIA [id number] [place] [address] [place] STAPHYLOCOCCUS AUREUS AND MR SA SCREEN, PCR, NASALon 09-12-2023 S. aureus and MRSA panel GALEN+probe (Nose) Not detected Normal Not Detected [facility] Comment on above: Order Comment: Speci men Type: SWABOrdering Facility: [facility] Address: [address] [place] [address] Performed By: #### S APCR ####[facility] LABCLIA [id number] [place] [address] [place] Serum or plasma anion gap de terminationon 09-12-2023 Anion gap [Moles/Vol] 5 mmol/L Low 8-15 [facility] Comment on above: Order Comment: Speci men Type: BLOOD SPECIMENOrdering Facility: [facility] Address: [address] [place] [address] Performed By: #### 2 4323-8, 54907-0 ####[facility] LABCLIA [id number] [place] [address] [place] Activated partial thrombopla stin time (aPTT) in platelet poor plasma by coagulation aon 09-11-2023 aPTT Coag (PPP) [Time] 53.8 s High 23.0-32.4 [facility] Basophils Auto (Bld) [#/Vol] on 09-11-2023 Basophils (Bld) [#/Vol] 10*3/uL <0.11 [facility] Basophils/100 WBC Auto (Bld) on 09-11-2023 Basophils/100 WBC (Bld) 0.4 % [facility] Blood manual differential co mment interpretation narrativeon 09-11-2023 Manual differential comment Kiran (Bld) [Interp] Auto [facility] CBC W Auto Differential pane l (Bld)on 09-11-2023 Basophils (Bld) [#/Vol] 10*3/uL Normal <0.11 [facility] Comment on above: Order Comment: Speci men Type: BLOOD SPECIMENOrdering Facility: [facility] Address: [address] [place] [address] Performed By: #### 5 7021-8 ####[facility] LABCLIA [id number] [place] [address] [place] Basophils/100 WBC (Bld) 0.4 % Normal [facility] Comment on above: Order Comment: Speci men Type: BLOOD SPECIMENOrdering Facility: [facility] Address: [address] [place] [address] Performed By: #### 5 7021-8 ####[facility] LABCLIA [id number] [place] [address] [place] Differential cell count method Nom (Bld) Auto Normal [facility] Comment on above: Order Comment: Speci men Type: BLOOD SPECIMENOrdering Facility: [facility] Address: [address] [place] [address] Performed By: #### 5 7021-8 ####[facility] LABCLIA [id number] [place] [address] [place] Eosinophils (Bld) [#/Vol] 0.17 10*3/uL Normal <0.46 [facility] Comment on above: Order Comment: Speci men Type: BLOOD SPECIMENOrdering Facility: [facility] Address: [address] [place] [address] Performed By: #### 5 7021-8 ####[facility] LABCLIA [id number] [place] [address] [place] Eosinophils/100 WBC (Bld) 3.4 % Normal [facility] Comment on above: Order Comment: Speci men Type: BLOOD SPECIMENOrdering Facility: [facility] Address: [address] [place] [address] Performed By: #### 5 7021-8 ####[facility] LABCLIA [id number] [place] [address] [place] Erythrocyte distribution width (RBC) [Ratio] 16.1 % High 11.5-15.0 [facility] Comment on above: Order Comment: Speci men Type: BLOOD SPECIMENOrdering Facility: [facility] Address: [address] [place] [address] Performed By: #### 5 7021-8 ####[facility] LABCLIA [id number] [place] [address] [place] Hematocrit (Bld) [Volume fraction] 32.3 % Low 39.0-51.0 [facility] Comment on above: Order Comment: Speci men Type: BLOOD SPECIMENOrdering Facility: [facility] Address: [address] [place] [address] Performed By: #### 5 7021-8 ####[facility] LABIA [id number] [place] [address] [place] Hemoglobin (Bld) [Mass/Vol] 11.1 g/dL Low 13.0-17.0 [facility] Comment on above: Order Comment: Speci men Type: BLOOD SPECIMENOrdering Facility: [facility] Address: [address] [place] [address] Performed By: #### 5 7021-8 ####[facility] LABIA [id number] [place] [address] [place] Immature granulocytes (Bld) [#/Vol] 10*3/uL Normal <0.10 [facility] Comment on above: Order Comment: Speci men Type: BLOOD SPECIMENOrdering Facility: [facility] Address: [address] [place] [address] Performed By: #### 5 7021-8 ####[facility] LABCLIA [id number] [place] [address] [place] Immature granulocytes/100 WBC (Bld) 0.4 % Normal [facility] Comment on above: Order Comment: Speci men Type: BLOOD SPECIMENOrdering Facility: [facility] Address: [address] [place] [address] Performed By: #### 5 7021-8 ####[facility] LABIA [id number] [place] [address] [place] Lymphocytes (Bld) [#/Vol] 0.81 10*3/uL Low 1.00-4.00 [facility] Comment on above: Order Comment: Speci men Type: BLOOD SPECIMENOrdering Facility: [facility] Address: [address] [place] [address] Performed By: #### 5 7021-8 ####[facility] LABCLIA [id number] [place] [address] [place] Lymphocytes/100 WBC (Bld) 16.2 % Normal [facility] Comment on above: Order Comment: Speci men Type: BLOOD SPECIMENOrdering Facility: [facility] Address: [address] [place] [address] Performed By: #### 5 7021-8 ####[facility] LABCLIA [id number] [place] [address] [place] MCH (RBC) [Entitic mass] 30.3 pg Normal 26.0-34.0 [facility] Comment on above: Order Comment: Speci men Type: BLOOD SPECIMENOrdering Facility: [facility] Address: [address] [place] [address] Performed By: #### 5 7021-8 ####[facility] LABCLIA [id number] [place] [address] [place] MCHC (RBC) [Mass/Vol] 34.4 g/dL Normal 30.5-36.0 [facility] Comment on above: Order Comment: Speci men Type: BLOOD SPECIMENOrdering Facility: [facility] Address: [address] [place] [address] Performed By: #### 5 7021-8 ####[facility] LABCLIA [id number] [place] [address] [place] MCV (RBC) [Entitic vol] 88.3 fL Normal 80.0-100.0 [facility] Comment on above: Order Comment: Speci men Type: BLOOD SPECIMENOrdering Facility: [facility] Address: [address] [place] [address] Performed By: #### 5 7021-8 ####[facility] LABCLIA [id number] [place] [address] [place] Monocytes (Bld) [#/Vol] 0.44 10*3/uL Normal <0.87 [facility] Comment on above: Order Comment: Speci men Type: BLOOD SPECIMENOrdering Facility: [facility] Address: [address] [place] [address] Performed By: #### 5 7021-8 ####[facility] LABCLIA [id number] [place] [address] [place] Monocytes/100 WBC (Bld) 8.8 % Normal [facility] Comment on above: Order Comment: Speci men Type: BLOOD SPECIMENOrdering Facility: [facility] Address: [address] [place] [address] Performed By: #### 5 7021-8 ####[facility] LABCLIA [id number] [place] [address] [place] Neutrophils (Bld) [#/Vol] 3.55 10*3/uL Normal 1.45-7.50 [facility] Comment on above: Order Comment: Speci men Type: BLOOD SPECIMENOrdering Facility: [facility] Address: [address] [place] [address] Performed By: #### 5 7021-8 ####[facility] LABCLIA [id number] [place] [address] [place] Neutrophils/100 WBC (Bld) 70.8 % Normal [facility] Comment on above: Order Comment: Speci men Type: BLOOD SPECIMENOrdering Facility: [facility] Address: [address] [place] [address] Performed By: #### 5 7021-8 ####[facility] LABCLIA [id number] [place] [address] [place] Nucleated RBC (Bld) [#/Vol] 10*3/uL Normal <0.01 [facility] Comment on above: Order Comment: Speci men Type: BLOOD SPECIMENOrdering Facility: [facility] Address: [address] [place] [address] Performed By: #### 5 7021-8 ####[facility] LABCLIA [id number] [place] [address] [place] Nucleated RBC/100 WBC (Bld) [Ratio] 0.0 /100 WBC Normal [facility] Comment on above: Order Comment: Speci men Type: BLOOD SPECIMENOrdering Facility: [facility] Address: [address] [place] [address] Performed By: #### 5 7021-8 ####[facility] LABCLIA [id number] [place] [address] [place] Platelet mean volume (Bld) [Entitic vol] 10.4 fL Normal 9.0-12.7 [facility] Comment on above: Order Comment: Speci men Type: BLOOD SPECIMENOrdering Facility: [facility] Address: [address] [place] [address] Performed By: #### 5 7021-8 ####[facility] LABIA [id number] [place] [address] [place] Platelets (Bld) [#/Vol] 147 10*3/uL Low 150-400 [facility] Comment on above: Order Comment: Speci men Type: BLOOD SPECIMENOrdering Facility: [facility] Address: [address] [place] [address] Result Comment: Resu lts checked and verified.No clot detected. Performed By: #### 5 7021-8 ####[facility] LABCLIA [id number] [place] [address] [place] RBC (Bld) [#/Vol] 3.66 10*6/uL Low 4.20-6.00 [facility] Comment on above: Order Comment: Speci men Type: BLOOD SPECIMENOrdering Facility: [facility] Address: [address] [place] [address] Performed By: #### 5 7021-8 ####[facility] LABCLIA [id number] [address] [address] [place] WBC (Bld) [#/Vol] 5.01 10*3/uL Normal 3.70-11.00 [facility] Comment on above: Order Comment: Speci men Type: BLOOD SPECIMENOrdering Facility: [facility] Address: [address] [place] [address] Performed By: #### 5 7021-8 ####[facility] LABCLIA [id number] [place] [address] [place] CONFIRM BLOOD TYPEon 024 ABO O Normal [facility] Comment on above: Order Comment: Speci men Type: BLOOD SPECIMENOrdering Facility: [facility] Address: [address] [place] [address] Performed By: #### C ONABO ####[facility] BLOOD BANKCLIA [id number] [place] [address] [place] Rh Nom (Bld) Positive Normal [facility] Comment on above: Order Comment: Speci men Type: BLOOD SPECIMENOrdering Facility: [facility] Address: [address] [place] [address] Performed By: #### C ONABO ####[facility] BLOOD BANKCLIA [id number] [place] [address] [place] Comprehensive metabolic 2000 panelon 09-11-2023 Albumin [Mass/Vol] 3.5 g/dL Low 3.9-4.9 [facility] Comment on above: Order Comment: Speci men Type: BLOOD SPECIMENOrdering Facility: [facility] Address: [address] [place] [address] Performed By: #### H STNT, 87661-0, 13928-1, 77148-6 ####[facility] LABCLIA [id number] [place] [address] [place] ALP [Catalytic activity/Vol] 65 U/L Normal 38-113 [facility] Comment on above: Order Comment: Speci men Type: BLOOD SPECIMENOrdering Facility: [facility] Address: [address] [place] [address] Performed By: #### H STNT, 24934-9, 00597-6, 07967-5 ####[facility] LABIA [id number] [place] [address] [place] ALT [Catalytic activity/Vol] 34 U/L Normal 10-54 [facility] Comment on above: Order Comment: Speci men Type: BLOOD SPECIMENOrdering Facility: [facility] Address: [address] [place] [address] Performed By: #### H STNT, 85407-5, 80954-1, 05292-5 ####[facility] LABIA [id number] [place] [address] [place] Anion gap [Moles/Vol] 9 mmol/L Normal 8-15 [facility] Comment on above: Order Comment: Speci men Type: BLOOD SPECIMENOrdering Facility: [facility] Address: [address] [place] [address] Performed By: #### H STNT, 46957-3, 58804-5, 15296-4 ####[facility] LABIA [id number] [place] [address] [place] AST [Catalytic activity/Vol] 20 U/L Normal 14-40 [facility] Comment on above: Order Comment: Speci men Type: BLOOD SPECIMENOrdering Facility: [facility] Address: [address] [place] [address] Performed By: #### H STNT, 17629-9, 14195-5, 12737-0 ####[facility] LABCLIA [id number] [address] [address] [place] Bilirubin [Mass/Vol] 1.3 mg/dL Normal 0.2-1.3 [facility] Comment on above: Order Comment: Speci men Type: BLOOD SPECIMENOrdering Facility: [facility] Address: [address] [place] [address] Performed By: #### H STNT, , 99104-7, 01114-0 ####[facility] LABCLIA [id number] [address] [address] [place] Calcium [Mass/Vol] 9.1 mg/dL Normal 8.5-10.2 [facility] Comment on above: Order Comment: Speci men Type: BLOOD SPECIMENOrdering Facility: [facility] Address: [address] [place] [address] Performed By: #### H STNT, , , 04655-2 ####[facility] LABCLIA [id number] [place] [address] [place] Chloride [Moles/Vol] 100 mmol/L Normal 98-107 [facility] Comment on above: Order Comment: Speci men Type: BLOOD SPECIMENOrdering Facility: [facility] Address: [address] [place] [address] Performed By: #### H STNT, , 30514-6, 33783-6 ####[facility] LABCLIA [id number] [place] [id number] [place] CO2 [Moles/Vol] 28 mmol/L Normal 22-30 [facility] Comment on above: Order Comment: Speci men Type: BLOOD SPECIMENOrdering Facility: [facility] Address: [address] [place] [address] Performed By: #### H STNT, , 61461-7, 14846-3 ####[facility] LABIA [id number] [place] [address] [place] Creatinine [Mass/Vol] 0.92 mg/dL Normal 0.73-1.22 [facility] Comment on above: Order Comment: Ricardo ignacio Type: BLOOD SPECIMENOrdering Facility: [facility] Address: [address] [place] [address] Performed By: #### H STNT, 24688-3, 43964-9, 61845-6 ####[facility] LABIA [id number] [place] [address] [place] Creatinine and Glomerular filtration rate.predicted panel (S/P/Bld) 89 mL/min/1.73m??? Normal >=60 [facility] Comment on above: Order Comment: Ricardo ignacio Type: BLOOD SPECIMENOrdering Facility: [facility] Address: [address] [place] [address] Result Comment: Aileen mated Glomerular Filtration Rate [...] accurately reflect actual GFR. Performed By: #### H STNT, 08434-1, 23364-4, 31373-1 ####[facility] LABIA [id number] [place] [id number] [place] Glucose [Mass/Vol] 188 mg/dL High 74-99 [facility] Comment on above: Order Comment: Ricardo ignacio Type: BLOOD SPECIMENOrdering Facility: [facility] Address: [address] [place] [address] Result Comment: The [place] [employer] (ADA) provides guidance for cutoff values for fasting glucose and random glucose. The ADA defines fasting as no caloric intake for at least 8 hours. Fasting plasma glucose results between 100 to 125 mg/dL indicate increased risk for diabetes (prediabetes).Fasting plasma glucose results greater than or equal to 126 mg/dL meet the criteria for diagnosis of diabetes. In the absence of unequivocal hyperglycemia, results should be confirmed by repeat testing. In a patient with classic symptoms of hyperglycemia or hyperglycemic crisis, random plasma glucose results greater than or equal to 200 mg/dL meet the criteria for diagnosis of diabetes.Reference: Standards of Medical Care in Diabetes 2016, [place] [employer]. Diabetes Care. 2016.39(Suppl 1). Performed By: #### H STNT, 96116-1, 51287-6, 82939-9 ####[facility] LABCLIA [id number] [place] [address] [place] Potassium [Moles/Vol] 4.5 mmol/L Normal 3.7-5.1 [facility] Comment on above: Order Comment: Speci men Type: BLOOD SPECIMENOrdering Facility: [facility] Address: [address] [place] [address] Performed By: #### H STNT, , , 47709-1 ####[facility] LABCLIA [id number] [place] [address] [place] Protein [Mass/Vol] 6.2 g/dL Low 6.3-8.0 [facility] Comment on above: Order Comment: Speci men Type: BLOOD SPECIMENOrdering Facility: [facility] Address: [address] [place] [address] Performed By: #### H STNT, , 74893-3, 73800-8 ####[facility] LABCLIA [id number] [place] [id number] [place] Sodium [Moles/Vol] 137 mmol/L Normal 136-144 [facility] Comment on above: Order Comment: Speci men Type: BLOOD SPECIMENOrdering Facility: [facility] Address: [address] [place] [address] Performed By: #### H STNT, , 04906-3, 23359-0 ####[facility] LABCLIA [id number] [place] [address] [place] Urea nitrogen [Mass/Vol] 19 mg/dL Normal 9-24 [facility] Comment on above: Order Comment: Speci men Type: BLOOD SPECIMENOrdering Facility: [facility] Address: [address] [place] [address] Performed By: #### H STNT, 35485-8, 26164-2, 81102-9 ####[facility] LABCLIA [id number] [place] [id number] [place] ECG COMPLETEon 09-11-2023 ECG COMPLETE Normal [facility] Eosinophils/100 WBC Auto (Bl d)on 09-11-2023 Eosinophils/100 WBC (Bld) 3.4 % [facility] Erythrocyte distribution wid th Auto (RBC) [Ratio]on 09-11-2023 Erythrocyte distribution width (RBC) [Ratio] 16.1 % High 11.5-15.0 [facility] HIGH SENSITIVITY TROPONIN To n 09-11-2023 Troponin T.cardiac High sensitivity method [Mass/Vol] 175 ng/L High <12 [facility] Comment on above: Order Comment: Speci men Type: BLOOD SPECIMENOrdering Facility: [facility] Address: [address] [place] [address] Performed By: #### H STNT, 32573-9, 90787-8, 70902-9 ####[facility] LABCLIA [id number] [place] [id number] [place] HISTORY PHYSICALon HISTORY PHYSICAL Normal [facility] Hematocrit Auto (Bld) [Volum e fraction]on 09-11-2023 Hematocrit (Bld) [Volume fraction] 32.3 % Low 39.0-51.0 [facility] Hemoglobin [Mass/volume] in Bloodon 09-11-2023 Hemoglobin (Bld) [Mass/Vol] 11.1 g/dL Low 13.0-17.0 [facility] INR in Platelet poor plasma by Coagulation assayon 09-11-2023 INR Coag (PPP) [Relative time] 1.3 {INR} 0.9-1.3 [facility] Leukocytes [#/volume] correc leticia for nucleated erythrocytes in Blood by Automated counon 09-11-2023 WBC corrected for nucl RBC Auto (Bld) [#/Vol] 5.01 k/uL 3.70-11.00 [facility] Lymphocytes Auto (Bld) [#/Vo l]on 09-11-2023 Lymphocytes (Bld) [#/Vol] 0.81 10*3/uL Low 1.00-4.00 [facility] Lymphocytes/100 WBC Auto (Bl d)on 09-11-2023 Lymphocytes/100 WBC (Bld) 16.2 % [facility] MCH Auto (RBC) [Entitic mass ]on 09-11-2023 MCH (RBC) [Entitic mass] 30.3 pg 26.0-34.0 [facility] MCHC Auto (RBC) [Mass/Vol]on 09-11-2023 MCHC (RBC) [Mass/Vol] 34.4 g/dL 30.5-36.0 [facility] MCV Auto (RBC) [Entitic vol] on 09-11-2023 MCV (RBC) [Entitic vol] 88.3 fL 80.0-100.0 [facility] Magnesium SerPl-mCncon 09-10 Magnesium [Mass/Vol] 2.1 mg/dL Normal 1.7-2.3 [facility] Comment on above: Order Comment: Speci men Type: BLOOD SPECIMENOrdering Facility: [facility] Address: [address] [place] [address] Performed By: #### H STNT, 71533-4, 64044-2, 59269-6 ####[facility] LABCLIA [id number] [place] [address] [place] Monocytes Auto (Bld) [#/Vol] on 09-11-2023 Monocytes (Bld) [#/Vol] 0.44 10*3/uL <0.87 [facility] Monocytes/100 WBC Auto (Bld) on 09-11-2023 Monocytes/100 WBC (Bld) 8.8 % [facility] NT-proBNP SerPl-mCncon 09-10 Natriuretic peptide.B prohormone N-Terminal [Mass/Vol] 7925 pg/mL High <125 [facility] Comment on above: Order Comment: Speci men Type: BLOOD SPECIMENOrdering Facility: [facility] Address: [address] [place] [address] Performed By: #### H STNT, 66656-8, 28890-3, 81243-3 ####[facility] LABCLIA [id number] [facility] [id number] [address] [place] Natriuretic peptide.B prohor ho N-Terminal [Mass/volume] in Serum or Plasmaon 09-11-2023 Natriuretic peptide.B prohormone N-Terminal [Mass/Vol] 7925 pg/mL High <125 [facility] Neutrophils Auto (Bld) [#/Vo l]on 09-11-2023 Neutrophils (Bld) [#/Vol] 3.55 10*3/uL 1.45-7.50 [facility] Neutrophils/100 WBC Auto (Bl d)on 09-11-2023 Neutrophils/100 WBC (Bld) 70.8 % [facility] No Panel Informationon 09-10 Trace Abnormal Negative [facility] Negative Negative [facility] Yellow Yellow [facility] 6.0 <8.5 [facility] 1.022 1.005-1.030 [facility] 0.2 EU/dL 0.2-1.0 EU/dL [facility] Clear Clear [facility] 175 ng/L High <12 [facility] 34 U/L 10-54 [facility] 2.1 mg/dL 1.7-2.3 [facility] 3.5 g/dL Low 3.9-4.9 [facility] 20 U/L 14-40 [facility] 0.17 k/uL <0.46 [facility] 1.3 mg/dL 0.2-1.3 [facility] 28 mmol/L 22-30 [facility] 100 mmol/L 98-107 [facility] 0.92 mg/dL 0.73-1.22 [facility] 188 mg/dL High 74-99 [facility] 4.5 mmol/L 3.7-5.1 [facility] 137 mmol/L 136-144 [facility] 19 mg/dL 9-24 [facility] 65 U/L 38-113 [facility] 9.1 mg/dL 8.5-10.2 [facility] 89 mL/min/1.73m??? >=60 [facility] <0.03 k/uL <0.10 [facility] 0.4 % [facility] Nucleated RBC Auto (Bld) [#/ Vol]on 09-11-2023 Nucleated RBC (Bld) [#/Vol] 10*3/uL <0.01 [facility] Nucleated erythrocytes [Pres ence] in Blood by Automated counton 09-11-2023 Nucleated RBC Auto Ql (Bld) 0.0 /100{WBC} [facility] PT panel Coag (PPP)on 2023 INR Coag (PPP) [Relative time] 1.3 {INR} Normal 0.9-1.3 [facility] Comment on above: Order Comment: Speci men Type: BLOOD SPECIMENOrdering Facility: [facility] Address: [address] [place] [address] Result Comment: Silvia min K Antagonist (VKA) Therapeutic Range: INR 2 to 3 (Target INR of 2.5)Note: For patients treated with VKA drugs, such as warfarin, the [employer] 2012 Guideline recommends a therapeutic INR range of 2 to 3 (target INR of 2.5). This recommendation includes high-risk patients with antiphospholipid syndrome with previous arterial or venous thromboembolism, current-generation mechanical or bioprosthetic aortic heart valve replacement.Note: Patients with mechanical aortic valve replacement and additional risk factors for thromboembolic events (atrial fibrillation, previous thromboembolism, LV dysfunction, hypercoagulable conditions) or an older generation mechanical AVR (i.e., ball in-Cage) or any mechanical MVR should have a INR therapeutic range of 2.5 to 3.5 (target INR of 3).Emery GH, et al. Chest 2012, 141:7S-47SNishimura RA, et al. JAC 2017, 70: 252-289 Performed By: #### 1 4979-9, 07202-3 ####[facility] LABCLIA [id number] [place] [address] [place] PT Coag (PPP) [Time] 13.3 s High 9.7-13.0 [facility] Comment on above: Order Comment: Speci men Type: BLOOD SPECIMENOrdering Facility: [facility] Address: [address] [place] [address] Performed By: #### 1 4979-9, 48103-1 ####[facility] LABIA [id number] [place] [address] [place] PTT, ANTICOAGULANT THERAPYon 09-11-2023 aPTT Coag (PPP) [Time] 53.8 s High 23.0-32.4 [facility] Comment on above: Order Comment: Speci men Type: BLOOD SPECIMENOrdering Facility: [facility] Address: [address] [place] [address] Performed By: #### P TTA ####[facility] LABIA [id number] [place] [address] [place] Platelet mean volume Auto (B ld) [Entitic vol]on 09-11-2023 Platelet mean volume (Bld) [Entitic vol] 10.4 fL 9.0-12.7 [facility] Platelets Auto (Bld) [#/Vol] on 09-11-2023 Platelets (Bld) [#/Vol] 147 10*3/uL Low 150-400 [facility] Protein [Mass/volume] in Ser um or Plasmaon 09-11-2023 Protein [Mass/Vol] 6.2 g/dL Low 6.3-8.0 [facility] Prothrombin time (PT)on 08-14 PT Coag (PPP) [Time] 13.3 s High 9.7-13.0 [facility] RBC Auto (Bld) [#/Vol]on RBC (Bld) [#/Vol] 3.66 10*6/uL Low 4.20-6.00 [facility] Serum or plasma anion gap de terminationon 09-11-2023 Anion gap [Moles/Vol] 9 mmol/L 8-15 [facility] TYPE + SCREENon 09-11-2023 ABO O Normal [facility] Comment on above: Order Comment: Speci men Type: BLOOD SPECIMENOrdering Facility: [facility] Address: [address] [place] [address] Performed By: #### T SCR ####CC MAIN BLOOD BANKCLIA [id number] [address] STATES OF [facility] HISTORICAL AB SCR STATUS Negative Normal [facility] Comment on above: Order Comment: Speci men Type: BLOOD SPECIMENOrdering Facility: [facility] Address: [address] [place] [address] Performed By: #### T SCR ####CC MAIN BLOOD BANKCLIA [id number] [place] [address] [place] Rh Nom (Bld) Positive Normal [facility] Comment on above: Order Comment: Speci men Type: BLOOD SPECIMENOrdering Facility: [facility] Address: [address] [place] [address] Performed By: #### T SCR ####CC MAIN BLOOD BANKCLIA [id number] [place] [address] [place] TYPE AND SCREEN EXPIRATION 09/14/2023 23:59 Normal [facility] Comment on above: Order Comment: Speci men Type: BLOOD SPECIMENOrdering Facility: [facility] Address: [address] [place] [address] Performed By: #### T SCR ####CC MAIN BLOOD BANKCLIA [id number] [place] [address] [place] URINALYSIS, DIPSTICK ONLYon 09-11-2023 Bilirubin Ql (U) Negative Normal Negative [facility] Comment on above: Order Comment: Speci men Type: URINE SPECIMENOrdering Facility: [facility] Address: [address] [place] [address] Performed By: #### U A ####[facility] LABCLIA [id number] [place] [address] [place] Clarity (Unsp spec) Clear Normal Clear [facility] Comment on above: Order Comment: Speci men Type: URINE SPECIMENOrdering Facility: [facility] Address: [address] [place] [address] Performed By: #### U A ####[facility] LABCLIA [id number] [place] [address] [place] Color (U) Yellow Normal Yellow [facility] Comment on above: Order Comment: Speci men Type: URINE SPECIMENOrdering Facility: [facility] Address: [address] [place] [address] Performed By: #### U A ####[facility] LABIA [id number] [place] [address] [place] Glucose Test strip (U) [Mass/Vol] Negative Normal Negative [facility] Comment on above: Order Comment: Speci men Type: URINE SPECIMENOrdering Facility: [facility] Address: [address] [place] [address] Performed By: #### U A ####[facility] LABCLIA [id number] [place] [address] [place] Hemoglobin Ql (U) Negative Normal Negative [facility] Comment on above: Order Comment: Speci men Type: URINE SPECIMENOrdering Facility: [facility] Address: [address] [place] [address] Performed By: #### U A ####[facility] LABCLIA [id number] [place] [address] [place] Ketones Ql (U) Trace Abnormal Negative [facility] Comment on above: Order Comment: Speci men Type: URINE SPECIMENOrdering Facility: [facility] Address: [address] [place] [address] Performed By: #### U A ####[facility] LABCLIA [id number] [place] [address] [place] Leukocyte esterase Test strip Ql (U) Negative Normal Negative [facility] Comment on above: Order Comment: Speci men Type: URINE SPECIMENOrdering Facility: [facility] Address: [address] [place] [address] Performed By: #### U A ####[facility] LABCLIA [id number] [place] [address] [place] Nitrite Ql (U) Negative Normal Negative [facility] Comment on above: Order Comment: Speci men Type: URINE SPECIMENOrdering Facility: [facility] Address: [address] [place] [address] Performed By: #### U A ####[facility] LABCLIA [id number] [place] [address] [place] pH (U) 6.0 [pH] Normal <8.5 [facility] Comment on above: Order Comment: Speci men Type: URINE SPECIMENOrdering Facility: [facility] Address: [address] [place] [address] Performed By: #### U A ####[facility] LABCLIA [id number] [place] [address] [place] Protein (U) [Mass/Vol] Trace Abnormal Negative [facility] Comment on above: Order Comment: Speci men Type: URINE SPECIMENOrdering Facility: [facility] Address: [address] [place] [address] Performed By: #### U A ####[facility] LABCLIA [id number] [place] [address] [place] Specific gravity (U) [Rel density] 1.022 Normal 1.005-1.030 [facility] Comment on above: Order Comment: Speci men Type: URINE SPECIMENOrdering Facility: [facility] Address: [address] [place] [address] Performed By: #### U A ####[facility] LABIA [id number] [place] [address] [place] Urobilinogen Ql (U) 0.2 EU/dL Normal 0.2-1.0 EU/dL [facility] Comment on above: Order Comment: Speci men Type: URINE SPECIMENOrdering Facility: [facility] Address: [address] [place] [address] Performed By: #### U A ####[facility] [id number] [place] [address] [place] XR CHEST 2V FRONTAL/LATon XR CHEST 2V FRONTAL/LAT Normal [facility] aPTT PPPon 09-11-2023 aPTT Coag (PPP) [Time] 42.3 s High 23.0-32.4 [facility] Comment on above: Order Comment: Speci men Type: BLOOD SPECIMENOrdering Facility: [facility] Address: [address] [place] [address] Performed By: #### 1 4979-9, 86210-5 ####[facility] LABIA [id number] [place] [address] [place] Automated basophil %Ordered By: Shaina Frazier on 09-02-2023 Basophils/100 WBC (Bld) 1.0 % . [facility] Comment on above: Performed By: #### C BC, BMP #### [facility] [address] Automated basophil countOrde red By: Shaina Frazier on 09-02-2023 Basophils (Bld) [#/Vol] 0.0 10*3/uL 0.0-0.2 [facility] Comment on above: Result Comment: PERF ORMED BY: [place] [address] PATHOLOGIST [employer] AALIYAH BENITEZ M.D. Performed By: #### C BC, BMP #### [address] Automated blood monocyte cou ntOrdered By: Shaina Frazier on 09-02-2023 Monocytes (Bld) [#/Vol] 0.5 10*3/uL 0.0-0.8 [facility] Comment on above: Performed By: #### C BC, BMP #### [address] Automated eosinophil %Ordere d By: Shaina Frazier on 09-02-2023 Eosinophils/100 WBC (Bld) 4.1 % . [facility] Comment on above: Performed By: #### C BC, BMP #### [address] Automated eosinophil countOr dered By: Shaina Frazier on 09-02-2023 Eosinophils (Bld) [#/Vol] 0.2 10*3/uL 0.0-0.45 [facility] Comment on above: Performed By: #### C BC, BMP #### [address] Automated monocyte %Ordered By: Shaina Frazier on 09-02-2023 Monocytes/100 WBC (Bld) 9.6 % . [facility] Comment on above: Performed By: #### C BC, BMP #### [address] Automated neutrophil %Ordere d By: Shaina Frazier on 09-02-2023 Neutrophils/100 WBC (Bld) 68.6 % . [facility] Comment on above: Performed By: #### C BC, BMP #### [address] Basic Metabolic Panelon 08-13 GFR/1.73 sq M.predicted MDRD (S/P/Bld) [Vol rate/Area] mL/min/{1.73_m2} Normal [facility] Comment on above: Performed By: #### C ANA, BMP #### [address] Calcium [Mass/volume] in Ser um or PlasmaOrdered By: Shaina Frazier on 09-02-2023 Calcium [Mass/Vol] 8.5 mg/dL Low 8.6-10.3 [facility] Comment on above: Result Comment: PERF ORMED BY: [place] [address] PATHOLOGIST [employer] AALIYAH BENITEZ M.D. Performed By: #### C ANA, BMP #### [address] Carbon dioxide, total [Moles /volume] in Serum or PlasmaOrdered By: Shaina Frazier on 09-02-2023 CO2 [Moles/Vol] 34.6 mmol/L High 21.0-31.0 [facility] Comment on above: Performed By: #### C ANA, BMP #### [address] Chloride [Moles/volume] in S curly or PlasmaOrdered By: Shaina Frazier on 09-02-2023 Chloride [Moles/Vol] 98 mmol/L 98-107 [facility] Comment on above: Performed By: #### C BC, BMP #### [address] Complete Blood Count Auto Di ffon 09-02-2023 Mean Corpuscular HGB Conc 33.7 g/dL Normal 32.5-35.6 [facility] Comment on above: Performed By: #### C BC, BMP #### [address] NRBC% 0.1 /100{WBC} Normal 0-0.5 [facility] Comment on above: Performed By: #### C ANA, BMP #### [facility] [address] Creatinine [Mass/volume] in Serum or PlasmaOrdered By: Shaina Frazier on 09-02-2023 Creatinine [Mass/Vol] 1.22 mg/dL 0.70-1.30 [facility] Comment on above: Performed By: #### C BC, BMP #### [address] Erythrocyte distribution wid th [Ratio] by Automated countOrdered By: Shaina Frazier on 09-02-2023 Erythrocyte distribution width (RBC) [Ratio] 17.3 % High 12.0-14.8 [facility] Comment on above: Performed By: #### C BC, BMP #### [address] Erythrocytes [#/volume] in B lood by Automated countOrdered By: Shaina Frazier on 09-02-2023 RBC (Bld) [#/Vol] 3.89 10*6/uL Low 3.90-5.60 [facility] Comment on above: Performed By: #### C BC, BMP #### [address] Glucose [Mass/volume] in Ser um or PlasmaOrdered By: Shaina Frazier on 09-02-2023 Glucose [Mass/Vol] 172 mg/dL High 70-100 [facility] Comment on above: ADA recommended refe rence rangeRandom Glucose Reference Range is dependent on time and content of last meal. Glucose of more than 200 mg/dL in a nonstressed, ambulatory subject supports the diagnosis of Diabetes Mellitus. Result Comment: [place] Glucose Reference Range is dependent on time and content of last meal. Glucose of more than 200 mg/dL in a nonstressed, ambulatory subject supports the diagnosis of Diabetes Mellitus. ADA recommended reference range Performed By: #### C BC, BMP #### [address] Hematocrit [Volume Fraction] of Blood by Automated countOrdered By: Shaina Frazier on 09-02-2023 Hematocrit (Bld) [Volume fraction] 35.3 % Low 38.8-50.0 [facility] Comment on above: Performed By: #### C ANA, BMP #### [address] Hemoglobin [Mass/volume] in BloodOrdered By: Shaina Frazier on 09-02-2023 Hemoglobin (Bld) [Mass/Vol] 11.9 g/dL Low 13.0-17.0 [facility] Comment on above: Performed By: #### C ANA, BMP #### [address] Leukocytes [#/volume] correc leticia for nucleated erythrocytes in Blood by Automated counOrdered By: Shaina Frazier on 09-02-2023 WBC corrected for nucl RBC Auto (Bld) [#/Vol] 5.0 10*3/uL 4.1-10.5 [facility] Leukocytes [#/volume] in Blo od by Automated countOrdered By: Shaina Frazier on 09-02-2023 WBC (Bld) [#/Vol] 5.0 10*3/uL 4.1-10.5 [facility] Comment on above: Performed By: #### C ANA, BMP #### [address] Lymphocytes [#/volume] in Bl ood by Automated countOrdered By: Shaina Frazier on 09-02-2023 Lymphocytes (Bld) [#/Vol] 0.8 10*3/uL Low 1.00-4.8 [facility] Comment on above: Performed By: #### C ANA, BMP #### [place] [address] [place] Lymphocytes/100 leukocytes i n Blood by Automated countOrdered By: Shaina Frazier on 09-02-2023 Lymphocytes/100 WBC (Bld) 16.7 % . [facility] Comment on above: Performed By: #### C BC, BMP #### [place] [address] [place] MCH [Entitic mass] by Automa leticia countOrdered By: Shaina Frazier on 09-02-2023 MCH (RBC) [Entitic mass] 30.7 pg 27.5-35.2 [facility] Comment on above: Performed By: #### C ANA, ASHLYN #### [address] MCHC Auto (RBC) [Mass/Vol]Or dered By: Shaina Frazier on 09-02-2023 MCHC (RBC) [Mass/Vol] 33.7 g/dL 32.5-35.6 [facility] MCV [Entitic volume] by Auto mated countOrdered By: Shaina Frazier on 09-02-2023 MCV (RBC) [Entitic vol] 90.9 fL 83.5-101 [facility] Comment on above: Performed By: #### C ANA, ASHLYN #### [facility] [address] [place] [address] Neutrophils [#/volume] in Bl ood by Automated countOrdered By: Shaina Frazier on 09-02-2023 Neutrophils (Bld) [#/Vol] 3.4 10*3/uL 1.8-7.7 [facility] Comment on above: Performed By: #### C ANA, ASHLYN #### [address] No Panel InformationOrdered By: Shaina Frazier on 09-02-2023 Estimated GFR (CKD-EPI) > 60.0 mL/Min [facility] Creatinine Clearance (Chem N/A [facility] > 60.0 mL/Min [facility] N/A [facility] Nucleated erythrocytes [Pres ence] in Blood by Automated countOrdered By: Shaina Frazier on 09-02-2023 Nucleated RBC Auto Ql (Bld) 0.1 /100{WBC} 0-0.5 [facility] PST Type and Screenon 2023 ABO and Rh group Nom (Bld) Blood group O Rh(D) positive Normal [facility] Comment on above: Order Comment: Date of Surgery: [id number] Result Comment: PERF ORMED BY: [place] [address] PATHOLOGIST [employer] AALIYAH BENITEZ M.D. Platelet mean volume [Entiti c volume] in Blood by Automated countOrdered By: Shaina Frazier on 09-02-2023 Platelet mean volume (Bld) [Entitic vol] 7.8 fL 6.6-10.1 [facility] Comment on above: Performed By: #### C BC, BMP #### [address] Platelets [#/volume] in Bloo d by Automated countOrdered By: Shaina Frazier on 09-02-2023 Platelets (Bld) [#/Vol] 173 10*3/uL 150-450 [facility] Comment on above: Performed By: #### C BC, BMP #### [address] Potassium [Moles/volume] in Serum or PlasmaOrdered By: Shaina Frazier on 09-02-2023 Potassium [Moles/Vol] 4.2 mmol/L 3.5-5.1 [facility] Comment on above: Performed By: #### C BC, BMP #### [address] Serum or plasma anion gap de terminationOrdered By: Shaina Frazier on 09-02-2023 Anion gap [Moles/Vol] 7.6 mmol/L 6.0-15.0 [facility] Comment on above: Performed By: #### C BC, BMP #### [place] [address] [place] Sodium [Moles/volume] in Ser um or PlasmaOrdered By: Shaina Frazier on 09-02-2023 Sodium [Moles/Vol] 136 mmol/L 136-145 [facility] Comment on above: Performed By: #### C BC, BMP #### [place] [address] [place] Urea nitrogen [Mass/volume] in Serum or PlasmaOrdered By: Shaina Frazier on 09-02-2023 Urea nitrogen [Mass/Vol] 27 mg/dL High 7-25 [facility] Comment on above: Performed By: #### C BC, BMP #### [facility] [address] [place] [address] [facility] Comp Metab 2000 Pnl SerPlon 08-18-2023 Albumin [Mass/Vol] 3.9 g/dL Normal 3.9-4.9 [facility] Comment on above: Order Comment: Speci men Type: BLOOD SPECIMENOrdering Facility: [facility] Address: [address] [place] [address] Performed By: #### 2 4323-8 ####[facility] LABCLIA [id number] [place] [address] ALP [Catalytic activity/Vol] 73 U/L Normal 38-113 [facility] Comment on above: Order Comment: Speci men Type: BLOOD SPECIMENOrdering Facility: [facility] Address: [address] [place] [address] Performed By: #### 2 4323-8 ####[facility] LABCLIA [id number] [place] [address] ALT [Catalytic activity/Vol] 18 U/L Normal 10-54 [facility] Comment on above: Order Comment: Speci men Type: BLOOD SPECIMENOrdering Facility: [facility] Address: [address] [place] [address] Performed By: #### 2 4323-8 ####[facility] LABCLIA [id number] [place] [address] AST [Catalytic activity/Vol] 19 U/L Normal 14-40 [facility] Comment on above: Order Comment: Speci men Type: BLOOD SPECIMENOrdering Facility: [facility] Address: [address] [place] [address] Performed By: #### 2 4323-8 ####[facility] LABCLIA [id number] [place] [address] Bilirubin [Mass/Vol] 1.2 mg/dL Normal 0.2-1.3 [facility] Comment on above: Order Comment: Speci men Type: BLOOD SPECIMENOrdering Facility: [facility] Address: [address] [place] [address] Performed By: #### 2 4323-8 ####[facility] LABCLIA [id number] [place] [address] Calcium [Mass/Vol] 9.5 mg/dL Normal 8.5-10.2 [facility] Comment on above: Order Comment: Speci men Type: BLOOD SPECIMENOrdering Facility: [facility] Address: [address] [place] [address] Performed By: #### 2 4323-8 ####[facility] LABCLIA [id number] [place] [address] Chloride [Moles/Vol] 98 mmol/L Normal 98-107 [facility] Comment on above: Order Comment: Speci men Type: BLOOD SPECIMENOrdering Facility: [facility] Address: [address] [place] [address] Performed By: #### 2 4323-8 ####[facility] LABCLIA [id number] [place] [address] CO2 [Moles/Vol] 33 mmol/L High 22-30 [facility] Comment on above: Order Comment: Speci men Type: BLOOD SPECIMENOrdering Facility: [facility] Address: [address] [place] [address] Performed By: #### 2 4323-8 ####[facility] LABCLIA [id number] [place] [address] Creatinine [Mass/Vol] 1.41 mg/dL High 0.73-1.22 [facility] Comment on above: Order Comment: Speci men Type: BLOOD SPECIMENOrdering Facility: [facility] Address: [address] [place] [address] Performed By: #### 2 4323-8 ####[facility] LABCLIA [id number] [place] [address] Glucose [Mass/Vol] 118 mg/dL High 74-99 [facility] Comment on above: The [place] [employer] (ADA) provides guidance for cutoff values for fasting glucose and random glucose. The ADA defines fasting as no caloric intake for at least 8 hours. Fasting plasma glucose results between 100 to 125 mg/dL indicate increased risk for diabetes (prediabetes).Fasting plasma glucose results greater than or equal to 126 mg/dL meet the criteria for diagnosis of diabetes. In the absence of unequivocal hyperglycemia, results should be confirmed by repeat testing. In a patient with classic symptoms of hyperglycemia or hyperglycemic crisis, random plasma glucose results greater than or equal to 200 mg/dL meet the criteria for diagnosis of diabetes.Reference: Standards of Medical Care in Diabetes 2016, [place] [employer]. Diabetes Care. 2016.39(Suppl 1). Order Comment: Ricardo ignacio Type: BLOOD SPECIMENOrdering Facility: [facility] Address: [address] [place] [address] Result Comment: The [place] [employer] (ADA) provides guidance for cutoff values for fasting glucose and random glucose. The ADA defines fasting as no caloric intake for at least 8 hours. Fasting plasma glucose results between 100 to 125 mg/dL indicate increased risk for diabetes (prediabetes).Fasting plasma glucose results greater than or equal to 126 mg/dL meet the criteria for diagnosis of diabetes. In the absence of unequivocal hyperglycemia, results should be confirmed by repeat testing. In a patient with classic symptoms of hyperglycemia or hyperglycemic crisis, random plasma glucose results greater than or equal to 200 mg/dL meet the criteria for diagnosis of diabetes.Reference: Standards of Medical Care in Diabetes 2016, [place] [employer]. Diabetes Care. 2016.39(Suppl 1). Performed By: #### 2 4323-8 ####[facility] LABCLIA [id number] [place] [address] Potassium [Moles/Vol] 4.6 mmol/L Normal 3.7-5.1 [facility] Comment on above: Order Comment: Ricardo ignacio Type: BLOOD SPECIMENOrdering Facility: [facility] Address: [address] [place] [address] Performed By: #### 2 4323-8 ####[facility] LABCLIA [id number] [place] [address] Sodium [Moles/Vol] 137 mmol/L Normal 136-144 [facility] Comment on above: Order Comment: Speci men Type: BLOOD SPECIMENOrdering Facility: [facility] Address: [address] [place] [address] Performed By: #### 2 4323-8 ####[facility] LABCLIA [id number] [place] [address] Urea nitrogen [Mass/Vol] 25 mg/dL High 9-24 [facility] Comment on above: Order Comment: Speci men Type: BLOOD SPECIMENOrdering Facility: [facility] Address: [address] [place] [address] Performed By: #### 2 4323-8 ####[facility] LABCLIA [id number] [place] [address] Comprehensive metabolic 2000 panelon 08-18-2023 Creatinine and Glomerular filtration rate.predicted panel (S/P/Bld) 54 mL/min/1.73m??? Low >=60 [facility] Comment on above: Order Comment: Speci men Type: BLOOD SPECIMENOrdering Facility: [facility] Address: [address] [place] [address] Result Comment: Aileen mated Glomerular Filtration Rate [...] reflect actual GFR. Performed By: #### 2 4323-8 ####[facility] LABCLIA [id number] [place] [address] Natriuretic peptide.B prohor ho N-Terminal [Mass/volume] in Serum or Plasmaon 06-06-2024 Natriuretic peptide.B prohormone N-Terminal [Mass/Vol] 3483 pg/mL High <125 [facility] Comment on above: Order Comment: Speci men Type: BLOOD SPECIMENOrdering Facility: [facility] Address: [address] [facility] [place] [address] Performed By: #### 3 3762-6 ####[facility] LABCLIA [id number] [address] [id number] [address] [place] No Panel Informationon 08-17 Estimated GFR (CKD-EPI) 54 mL/min/1.73m??? >=60 [facility] Comment on above: Estimated Glomerular Filtration Rate (eGFR) is calculated using the 2020 CKD-EPI creatinine equation. This equation utilizes serum creatinine, sex, and age as parameters. The creatinine assay has traceable calibration to isotope dilution-mass spectrometry. Refer to KDIGO guidelines for clinical interpretation. In patients with unstable renal function, e.g. those with acute kidney injury, the eGFR may not accurately reflect actual GFR. 18 U/L 10-54 [facility] 3.9 g/dL 3.9-4.9 [facility] 19 U/L 14-40 [facility] 1.2 mg/dL 0.2-1.3 [facility] 33 mmol/L High 22-30 [facility] 98 mmol/L 98-107 [facility] 1.41 mg/dL High 0.73-1.22 [facility] 118 mg/dL High 74-99 [facility] 4.6 mmol/L 3.7-5.1 [facility] 137 mmol/L 136-144 [facility] 25 mg/dL High 9-24 [facility] 73 U/L 38-113 [facility] 9.5 mg/dL 8.5-10.2 [facility] 54 mL/min/1.73m??? Low >=60 [facility] Protein [Mass/volume] in Ser um or Plasmaon 08-18-2023 Protein [Mass/Vol] 6.6 g/dL 6.3-8.0 [facility] Comment on above: Order Comment: Speci men Type: BLOOD SPECIMENOrdering Facility: [facility] Address: [address] [place] [address] Performed By: #### 2 4323-8 ####[facility] LABCLIA [id number] [place] [address] Serum or plasma anion gap de terminationon 08-18-2023 Anion gap [Moles/Vol] 6 mmol/L Low 8-15 [facility] Comment on above: Order Comment: Speci men Type: BLOOD SPECIMENOrdering Facility: [facility] Address: [address] [place] [address] Performed By: #### 2 4323-8 ####[facility] LABCLIA [id number] [place] [address] Alanine aminotransferase [En zymatic activity/volume] in Serum or PlasmaOrdered By: Bravo Whatley on 08-17-2023 ALT [Catalytic activity/Vol] 19 U/L 7-52 [facility] Comment on above: Performed By: #### C BC, BMP #### [facility] [address] [place] [address] [place] Albumin [Mass/volume] in Ser um or Plasma by Bromocresol green (BCG) dye binding methoOrdered By: Bravo Whatley on 08-17-2023 Albumin BCG dye [Mass/Vol] 3.8 g/dL 3.5-5.7 [facility] Alkaline phosphatase [Enzyma tic activity/volume] in Serum or PlasmaOrdered By: Bravo Whatley on 08-17-2023 ALP [Catalytic activity/Vol] 58 U/L 34-104 [facility] Comment on above: Performed By: #### C BC, BMP #### [facility] [address] [place] [address] [place] Aspartate aminotransferase [ Enzymatic activity/volume] in Serum or PlasmaOrdered By: Bravo Whatley on 08-17-2023 AST [Catalytic activity/Vol] 19 U/L 13-39 [facility] Comment on above: Performed By: #### C BC, BMP #### [address] Automated basophil %Ordered By: Bravo Whatley on 08-17-2023 Basophils/100 WBC (Bld) 1.3 % . [facility] Comment on above: Performed By: #### C BC, BMP #### [address] Automated basophil countOrde red By: Bravo Whatley on 08-17-2023 Basophils (Bld) [#/Vol] 0.1 10*3/uL 0.0-0.2 [facility] Comment on above: Result Comment: PERF ORMED BY: [place] [address] PATHOLOGIST [employer] AALIYAH BENITEZ M.D. Performed By: #### C BC, BMP #### [address] Automated blood monocyte cou ntOrdered By: Bravo Whatley on 08-17-2023 Monocytes (Bld) [#/Vol] 0.6 10*3/uL 0.0-0.8 [facility] Comment on above: Performed By: #### C BC, BMP #### [address] Automated eosinophil %Ordere d By: Bravo Whatley on 08-17-2023 Eosinophils/100 WBC (Bld) 2.9 % . [facility] Comment on above: Performed By: #### C BC, BMP #### [address] Automated eosinophil countOr dered By: Bravo Whatley on 08-17-2023 Eosinophils (Bld) [#/Vol] 0.2 10*3/uL 0.0-0.45 [facility] Comment on above: Performed By: #### C BC, BMP #### [address] Automated monocyte %Ordered By: Bravo Whatley on 08-17-2023 Monocytes/100 WBC (Bld) 9.9 % . [facility] Comment on above: Performed By: #### C BC, BMP #### [address] Automated neutrophil %Ordere d By: Bravo Whatley on 08-17-2023 Neutrophils/100 WBC (Bld) 70.6 % . [facility] Comment on above: Performed By: #### C BC, BMP #### [address] BNP ser/plasOrdered By: Isaac Whatley on 08-17-2023 Natriuretic peptide B (Bld) [Mass/Vol] 716.0 pg/mL High 5-100 [facility] Comment on above: Result Comment: PERF ORMED BY: [place] [address] PATHOLOGIST [employer] AALIYAH BENITEZ M.D. Performed By: #### C BC, BMP #### [address] Bilirubin.total [Mass/volume ] in Serum or PlasmaOrdered By: Bravo Whatley on 08-17-2023 Bilirubin [Mass/Vol] 1.3 mg/dL High 0.3-1.0 [facility] Comment on above: Samples from patient s who have taken Naproxen have shown spurious elevation in Total Bilirubin levels. A metabolite of Naproxen, O-desmethylnaproxen, has been shown to interfere with the Jendrassik-Grof method for measuring Total Bilirubin. Result Comment: Samp les from patients who have taken Naproxen have shown spurious elevation in Total Bilirubin levels. A metabolite of Naproxen, O-desmethylnaproxen, has been shown to interfere with the Jendrassik-Grof method for measuring Total Bilirubin. Performed By: #### C BC, BMP #### [address] Calcium [Mass/volume] in Ser um or PlasmaOrdered By: Bravo Whatley on 08-17-2023 Calcium [Mass/Vol] 8.9 mg/dL 8.6-10.3 [facility] Comment on above: Performed By: #### C BC, BMP #### [facility] [address] Carbon dioxide, total [Moles /volume] in Serum or PlasmaOrdered By: Bravo Whatley on 08-17-2023 CO2 [Moles/Vol] 33.1 mmol/L High 21.0-31.0 [facility] Comment on above: Performed By: #### C BC, BMP #### [address] Chloride [Moles/volume] in S curly or PlasmaOrdered By: Bravo Whatley on 08-17-2023 Chloride [Moles/Vol] 98 mmol/L 98-107 [facility] Comment on above: Performed By: #### C BC, BMP #### [address] Complete Blood Count Auto Di ffon 08-17-2023 Mean Corpuscular HGB Conc 33.8 g/dL Normal 32.5-35.6 [facility] Comment on above: Performed By: #### C BC, BMP #### [place] [address] [place] Monocytes/100 WBC (Bld) 17.95 % Normal 0.00-20.00 [facility] Comment on above: Performed By: #### C BC, BMP #### [address] NRBC% 0.1 /100{WBC} Normal 0-0.5 [facility] Comment on above: Performed By: #### C BC, BMP #### [address] Comprehensive Metabolic Pane garry 08-17-2023 Albumin [Mass/Vol] 3.8 g/dL Normal 3.5-5.7 [facility] Comment on above: Performed By: #### C BC, BMP #### [place] [address] [place] Creatinine Clr Calc Pharmacy 72.43 Normal [facility] Comment on above: Result Comment: PERF ORMED BY: [place] [address] PATHOLOGIST [employer] AALIYAH BENITEZ M.D. Performed By: #### C BC, BMP #### [address] GFR/1.73 sq M.predicted MDRD (S/P/Bld) [Vol rate/Area] mL/min/{1.73_m2} Normal [facility] Comment on above: Performed By: #### C BC, BMP #### [address] Creatinine [Mass/volume] in Serum or PlasmaOrdered By: Bravo Whatley on 08-17-2023 Creatinine [Mass/Vol] 1.27 mg/dL 0.70-1.30 [facility] Comment on above: Performed By: #### C BC, BMP #### [address] ECG 12 lead ECGon 08-17-2023 ECG 12 lead ECG [facility] [place] [address] [place] [address] Electrocardiograph Report Signed Patient: Ellis Braxton MR#: [id number] : 1955 Acct:[id number] Age/Sex: 68 / M ADM Date: 08/17/23 Loc: ER Room: Type: [facility] ER Attending Dr: Ordering Provider: Bravo Whatley DO Date of Service: 08/17/2308/04/2032 ECG/ECG 12 lead ECG: Extremity Injury, Lower Copies to: Test Reason : Blood Pressure : 117/058 mmHG Vent. Rate : 071 BPM Atrial Rate : 071 BPM P-R Int : 142 ms QRS Dur : 104 ms QT Int : 400 ms P-R-T Axes : 070 -64 044 degrees QTc Int : 434 ms Normal sinus rhythm Left axis deviation Low voltage QRS Possible Anterolateral infarct (cited on or before 10-APR-2020) Abnormal ECG When compared with ECG of 22-JUN-2023 01:43, premature ventricular complexes are no longer present premature atrial complexes are no longer present Confirmed by DEEJAY ALLISON MD ([id number]) on 08/19/2023 3:13:32 PM Referred By: Electronically Signed By:DEEJAY ALLISON MD Transcribed By: MUS Signed By Deejay Allison MD 0 08/19/23 1513 Normal [facility] Erythrocyte distribution wid th [Ratio] by Automated countOrdered By: Bravo Whatley on 08-17-2023 Erythrocyte distribution width (RBC) [Ratio] 17.0 % High 12.0-14.8 [facility] Comment on above: Performed By: #### C BC, BMP #### [address] Erythrocytes [#/volume] in B lood by Automated countOrdered By: Bravo Whatley on 08-17-2023 RBC (Bld) [#/Vol] 3.85 10*6/uL Low 3.90-5.60 [facility] Comment on above: Performed By: #### C BC, BMP #### [facility] [address] [place] [address] [place] Glucose [Mass/volume] in Ser um or PlasmaOrdered By: Bravo Whatley on 08-17-2023 Glucose [Mass/Vol] 85 mg/dL 70-100 [facility] Comment on above: ADA recommended refe rence rangeRandom Glucose Reference Range is dependent on time and content of last meal. Glucose of more than 200 mg/dL in a nonstressed, ambulatory subject supports the diagnosis of Diabetes Mellitus. Result Comment: [place] om Glucose Reference Range is dependent on time and content of last meal. Glucose of more than 200 mg/dL in a nonstressed, ambulatory subject supports the diagnosis of Diabetes Mellitus. ADA recommended reference range Performed By: #### C BC, BMP #### [place] [id number] [place] Hematocrit [Volume Fraction] of Blood by Automated countOrdered By: Bravo Whatley on 08-17-2023 Hematocrit (Bld) [Volume fraction] 35.4 % Low 38.8-50.0 [facility] Comment on above: Performed By: #### C BC, BMP #### [address] Hemoglobin [Mass/volume] in BloodOrdered By: Bravo Whatley on 08-17-2023 Hemoglobin (Bld) [Mass/Vol] 12.0 g/dL Low 13.0-17.0 [facility] Comment on above: Performed By: #### C BC, BMP #### [address] Leukocytes [#/volume] correc leticia for nucleated erythrocytes in Blood by Automated counOrdered By: Bravo Whatley on 08-17-2023 WBC corrected for nucl RBC Auto (Bld) [#/Vol] 6.2 10*3/uL 4.1-10.5 [facility] Leukocytes [#/volume] in Blo od by Automated countOrdered By: Bravo Whatley on 08-17-2023 WBC (Bld) [#/Vol] 6.2 10*3/uL 4.1-10.5 [facility] Comment on above: Performed By: #### C BC, BMP #### [address] Lymphocytes [#/volume] in Bl ood by Automated countOrdered By: Bravo Whatley on 08-17-2023 Lymphocytes (Bld) [#/Vol] 1.0 10*3/uL 1.00-4.8 [facility] Comment on above: Performed By: #### C BC, BMP #### [place] [address] [place] Lymphocytes/100 leukocytes i n Blood by Automated countOrdered By: Bravo Whatley on 08-17-2023 Lymphocytes/100 WBC (Bld) 15.3 % . [facility] Comment on above: Performed By: #### C BC, BMP #### [address] MCH [Entitic mass] by Automa leticia countOrdered By: Bravo Whatley on 08-17-2023 MCH (RBC) [Entitic mass] 31.1 pg 27.5-35.2 [facility] Comment on above: Performed By: #### C ANA, BMP #### [facility] [address] [place] [address] MCHC Auto (RBC) [Mass/Vol]Or dered By: Bravo Whatley on 08-17-2023 MCHC (RBC) [Mass/Vol] 33.8 g/dL 32.5-35.6 [facility] MCV [Entitic volume] by Auto mated countOrdered By: Bravo Whatley on 08-17-2023 MCV (RBC) [Entitic vol] 92.1 fL 83.5-101 [facility] Comment on above: Performed By: #### C ANA, BMP #### [facility] [address] [place] [address] Monocyte distribution width [Entitic volume] in Blood by AutomatedOrdered By: Bravo Whatley on 08-17-2023 Monocyte distribution width Auto (Bld) [Entitic vol] 17.95 % 0.00-20.00 [facility] Neutrophils [#/volume] in Bl ood by Automated countOrdered By: Bravo Whatley on 08-17-2023 Neutrophils (Bld) [#/Vol] 4.4 10*3/uL 1.8-7.7 [facility] Comment on above: Performed By: #### C ANA, BMP #### [facility] [address] [place] [address] No Panel InformationOrdered By: Bravo Whatley on 08-17-2023 Estimated GFR (CKD-EPI) > 60.0 mL/Min [facility] Creatinine Clearance (Chem 72.43 [facility] > 60.0 mL/Min [facility] 72.43 [facility] Nucleated erythrocytes [Pres ence] in Blood by Automated countOrdered By: Bravo Whatley on 08-17-2023 Nucleated RBC Auto Ql (Bld) 0.1 /100{WBC} 0-0.5 [facility] Platelet mean volume [Entiti c volume] in Blood by Automated countOrdered By: Bravo Whatley on 08-17-2023 Platelet mean volume (Bld) [Entitic vol] 8.0 fL 6.6-10.1 [facility] Comment on above: Performed By: #### C BC, BMP #### [address] Platelets [#/volume] in Bloo d by Automated countOrdered By: Bravo Whatley on 08-17-2023 Platelets (Bld) [#/Vol] 176 10*3/uL 150-450 [facility] Comment on above: Performed By: #### C BC, BMP #### [address] Potassium [Moles/volume] in Serum or PlasmaOrdered By: Bravo Whatley on 08-17-2023 Potassium [Moles/Vol] 4.3 mmol/L 3.5-5.1 [facility] Comment on above: Performed By: #### C BC, BMP #### [address] Protein [Mass/volume] in Ser um or PlasmaOrdered By: Bravo Whatley on 08-17-2023 Protein [Mass/Vol] 6.5 g/dL 6.4-8.9 [facility] Comment on above: Performed By: #### C BC, BMP #### [address] Serum globulin measurement b y calculation (mass/volume)Ordered By: Bravo Whatley on 08-17-2023 Globulin (S) [Mass/Vol] 2.7 g/dL [facility] Comment on above: Performed By: #### C BC, BMP #### [address] Serum or plasma albumin/glob ulin mass ratioOrdered By: Bravo Whatley on 08-17-2023 Albumin/Globulin [Mass ratio] 1.4 {ratio} [facility] Comment on above: Performed By: #### C BC, BMP #### [address] Serum or plasma anion gap de terminationOrdered By: Bravo Whatley on 08-17-2023 Anion gap [Moles/Vol] 8.2 mmol/L 6.0-15.0 [facility] Comment on above: Performed By: #### C BC, BMP #### [address] Sodium [Moles/volume] in Ser um or PlasmaOrdered By: Bravo Whatley on 08-17-2023 Sodium [Moles/Vol] 135 mmol/L Low 136-145 [facility] Comment on above: Performed By: #### C BC, BMP #### [address] Troponin I High Sensitivityo n 08-17-2023 Troponin I High Sensitivity 27.2 pg/mL High 0.0-20.0 [facility] Comment on above: Result Comment: PERF ORMED BY: [address] [place] [address] PATHOLOGIST [employer] AALIYAH BENITEZ M.D. Performed By: #### C BC, BMP #### [address] Troponin I.cardiac [Mass/vol ume] in Serum or Plasma by Detection limit <= 0.01 ng/Ordered By: Bravo Whatley on 08-17-2023 Troponin I.cardiac DL <= 0.01 ng/mL [Mass/Vol] 27.2 pg/mL High 0.0-20.0 [facility] Urea nitrogen [Mass/volume] in Serum or PlasmaOrdered By: Bravo Whatley on 08-17-2023 Urea nitrogen [Mass/Vol] 26 mg/dL High 7-25 [facility] Comment on above: Performed By: #### C BC, BMP #### [place] [address] [place] XR chest 1V portableon 08-16 XR chest 1V portable [facility] [place] [address] [place] [id number] XRay Report Signed Patient: Ellis Braxton MR#: [id number] : 1955 Acct:[id number] Age/Sex: 68 / M ADM Date: 08/17/23 Loc: ER Room: Type: [facility] ER Attending Dr: Copies to: Bravo Whatley DO Ordering Provider: Bravo Whatley DO Date of Service: 08/17/23 XR/XR chest 1V portable: Extremity Injury, [place] film chest Single view HISTORY: Bilateral lower extremity swelling for 3 days COMPARISON: 06/22/23 FINDINGS: SUPPORT DEVICES: None POSTSURGICAL CHANGES: None HEART: Similar cardiomegaly PULMONARY RONDA: Stable MEDIASTINUM: Unremarkable LUNGS AND PLEURA: Redemonstration of moderate RIGHT basilar pleural-parenchymal changes. BONY STRUCTURES: Intact ADDITIONAL FINDINGS None XR/XR chest 1V portable IMPRESSION: Similar moderate RIGHT basilar pleural-parenchymal changes and cardiomegaly. No new findings. Impression dictated by: Javier Carlson M.D.08/17/2023 9:50 PM Dictation Location: [place] [address] Transcribed By: [facility] 08/17/232149 Dictated By: Javier Carlson DO 08/17/232148 Signed By: 08/17/232149 Normal [facility] HbA1c HPLC (Bld) [Mass fract ion]on 08-16-2023 HbA1c (Bld) [Mass fraction] 6.8 % [facility] No Panel Informationon 08-15 Bedside Glucose 120 [facility] 120 [facility] Activated partial thrombopla stin time (aPTT) in platelet poor plasma by coagulation aOrdered By: Kristan Richardson on 06-22-2023 aPTT Coag (PPP) [Time] 51.2 s 25.1-36.5 [facility] Comment on above: A hematocrit value g reater than 55% may lead to inaccurate results in coagulation testing. Patients having hematocrit values >55% require a special collection tube for coagulation studies. Please contact the laboratory at [phone] for redraw instructions. Alanine aminotransferase [En zymatic activity/volume] in Serum or PlasmaOrdered By: Kristan Richardson on 06-22-2023 ALT [Catalytic activity/Vol] 24 U/L Normal 7-52 [facility] Comment on above: Performed By: #### C BC, BMP #### [address] Albumin [Mass/volume] in Ser um or Plasma by Bromocresol green (BCG) dye binding methoOrdered By: Kristan Richardson on 06-22-2023 Albumin BCG dye [Mass/Vol] 3.5 g/dL 3.5-5.7 [facility] Alkaline phosphatase [Enzyma tic activity/volume] in Serum or PlasmaOrdered By: Kristan Richardson on 06-22-2023 ALP [Catalytic activity/Vol] 76 U/L Normal 34-104 [facility] Comment on above: Performed By: #### C BC, BMP #### [address] Aspartate aminotransferase [ Enzymatic activity/volume] in Serum or PlasmaOrdered By: Kristan Richardson on 06-22-2023 AST [Catalytic activity/Vol] 28 U/L Normal 13-39 [facility] Comment on above: Performed By: #### C ANA, BMP #### [address] Automated basophil %Ordered By: Kristan Richardson on 06-22-2023 Basophils/100 WBC (Bld) 1.3 % Normal . [facility] Comment on above: Performed By: #### F L TRIG, GS, FL LDH, AERC, FLCCDIFF, FL TP, FL GLU, FS #### [address] #### AFBCS RES1, MYC CULT #### [facility] , Automated basophil countOrde red By: Kristan Richardson on 06-22-2023 Basophils (Bld) [#/Vol] 0.1 10*3/uL Normal 0.0-0.2 [facility] Comment on above: Result Comment: PERF ORMED BY: [place] [address] PATHOLOGIST [employer] AALIYAH BENITEZ M.D. Performed By: #### F L TRIG, GS, FL LDH, AERC, FLCCDIFF, FL TP, FL GLU, FS #### [place] [address] [place] #### AFBCS RES1, MYC CULT #### [facility] , Automated blood monocyte cou ntOrdered By: Kristan Richardson on 06-22-2023 Monocytes (Bld) [#/Vol] 0.7 10*3/uL Normal 0.0-0.8 [facility] Comment on above: Performed By: #### F L TRIG, GS, FL LDH, AERC, FLCCDIFF, FL TP, FL GLU, FS #### [address] #### AFBCS RES1, MYC CULT #### [facility] , Automated eosinophil %Ordere d By: Kristan Richardson on 06-22-2023 Eosinophils/100 WBC (Bld) 5.5 % Normal . [facility] Comment on above: Performed By: #### F L TRIG, GS, FL LDH, AERC, FLCCDIFF, FL TP, FL GLU, FS #### [address] #### AFBCS RES1, MYC CULT #### [facility] , Automated eosinophil countOr dered By: Kristan Richardson on 06-22-2023 Eosinophils (Bld) [#/Vol] 0.3 10*3/uL Normal 0.0-0.45 [facility] Comment on above: Performed By: #### F L TRIG, GS, FL LDH, AERC, FLCCDIFF, FL TP, FL GLU, FS #### [place] [address] [place] #### AFBCS RES1, MYC CULT #### [facility] , Automated monocyte %Ordered By: Kristan Richardson on 06-22-2023 Monocytes/100 WBC (Bld) 14.3 % Normal . [facility] Comment on above: Performed By: #### F L TRIG, GS, FL LDH, AERC, FLCCDIFF, FL TP, FL GLU, FS #### [place] [address] [place] #### AFBCS RES1, MYC CULT #### [facility] , Automated neutrophil %Ordere d By: Kristan Richardson on 06-22-2023 Neutrophils/100 WBC (Bld) 63.7 % Normal . [facility] Comment on above: Performed By: #### F L TRIG, GS, FL LDH, AERC, FLCCDIFF, FL TP, FL GLU, FS #### [facility] [address] [place] [address] #### AFBCS RES1, MYC CULT #### [facility] , BNP ser/plasOrdered By: Facundo Richardson on 06-22-2023 Natriuretic peptide B (Bld) [Mass/Vol] 963.0 pg/mL High 5-100 [facility] Comment on above: Result Comment: PERF ORMED BY: [place] [address] PATHOLOGIST [employer] AALIYAH BENITEZ M.D. Performed By: #### C BC, BMP #### [address] Basic Metabolic Panelon 06-12 Anion gap [Moles/Vol] 11.1 mmol/L Normal 6.0-15.0 [facility] Comment on above: Performed By: #### C BC, BMP #### [address] Calcium [Mass/Vol] 8.2 mg/dL Low 8.6-10.3 [facility] Comment on above: Performed By: #### C BC, BMP #### [place] [address] [place] Chloride [Moles/Vol] 98 mmol/L Normal 98-107 [facility] Comment on above: Performed By: #### C BC, BMP #### [address] CO2 [Moles/Vol] 28.0 mmol/L Normal 21.0-31.0 [facility] Comment on above: Performed By: #### C BC, BMP #### [address] Creatinine Clr Calc Pharmacy 84.25 Normal [facility] Comment on above: Performed By: #### C BC, BMP #### [address] Glucose [Mass/Vol] 193 mg/dL High 70-100 [facility] Comment on above: Result Comment: [place] Glucose Reference Range is dependent on time and content of last meal. Glucose of more than 200 mg/dL in a nonstressed, ambulatory subject supports the diagnosis of Diabetes Mellitus. ADA recommended reference range Performed By: #### C BC, BMP #### [address] Potassium [Moles/Vol] 4.1 mmol/L Normal 3.5-5.1 [facility] Comment on above: Performed By: #### C BC, BMP #### [address] Sodium [Moles/Vol] 133 mmol/L Low 136-145 [facility] Comment on above: Performed By: #### C BC, BMP #### [address] Bilirubin.total [Mass/volume ] in Serum or PlasmaOrdered By: Kristan Richardson on 06-22-2023 Bilirubin [Mass/Vol] 0.9 mg/dL Normal 0.3-1.0 [facility] Comment on above: Performed By: #### C BC, BMP #### [address] BioFire Not Detectedon 06-21 BioFire Not Detected Not detected Normal Not Detecte T he [facility] Comment on above: Result Comment: This is a duplicate RP2.1 COVID (PCR) result to be used for statistical tracking purpose only. PERFORMED BY: [place] [address] PATHOLOGIST [employer] AALIYAH BENITEZ M.D. Performed By: #### C BC, BMP #### [address] COVID-19 Detected/Not Detect edOrdered By: Kristan Richardson on 06-22-2023 SARS-CoV-2 (COVID-19) RNA GALEN+non-probe Ql (Nph) Not detected Not Detecte [facility] Comment on above: This is a duplicate RP2.1 COVID (PCR) result to be used for statistical tracking purpose only. Calcium [Mass/volume] in Ser um or PlasmaOrdered By: Kristan Richardson on 06-22-2023 Calcium [Mass/Vol] 8.4 mg/dL Low 8.6-10.3 [facility] Comment on above: Performed By: #### C BC, BMP #### [address] Carbon dioxide, total [Moles /volume] in Serum or PlasmaOrdered By: Kristan Richardson on 06-22-2023 CO2 [Moles/Vol] 30.3 mmol/L Normal 21.0-31.0 [facility] Comment on above: Performed By: #### C BC, BMP #### [address] Chloride [Moles/volume] in S curly or PlasmaOrdered By: Kristan Richardson on 06-22-2023 Chloride [Moles/Vol] 97 mmol/L Low 98-107 [facility] Comment on above: Performed By: #### C BC, BMP #### [address] Complete Blood Count Auto Di ffon 06-22-2023 Mean Corpuscular HGB Conc 33.2 g/dL Normal 32.5-35.6 [facility] Comment on above: Performed By: #### F L TRIG, GS, FL LDH, AERC, FLCCDIFF, FL TP, FL GLU, FS #### [address] #### AFBCS RES1, MYC CULT #### [facility] , Monocytes/100 WBC (Bld) 21.04 % High 0.00-20.00 [facility] Comment on above: Result Comment: For adults in ED, MDW > 20.0 may be associated with a higher risk of sepsis during the first 12 hrs of hospital admission Performed By: #### F L TRIG, GS, FL LDH, AERC, FLCCDIFF, FL TP, FL GLU, FS #### [address] #### AFBCS RES1, MYC CULT #### [facility] , NRBC% 0.1 /100{WBC} Normal 0-0.5 [facility] Comment on above: Performed By: #### F L TRIG, GS, FL LDH, AERC, FLCCDIFF, FL TP, FL GLU, FS #### [address] #### AFBCS RES1, MYC CULT #### [facility] , Basophils (Bld) [#/Vol] 0.0 10*3/uL Normal 0.0-0.2 [facility] Comment on above: Result Comment: PERF ORMED BY: [place] [address] PATHOLOGIST [employer] AALIYAH BENITEZ M.D. Performed By: #### C BC, BMP #### [address] Basophils/100 WBC (Bld) 0.3 % Normal . [facility] Comment on above: Performed By: #### C BC, BMP #### [address] Eosinophils (Bld) [#/Vol] 0.0 10*3/uL Normal 0.0-0.45 [facility] Comment on above: Performed By: #### C BC, BMP #### [address] Eosinophils/100 WBC (Bld) 0.2 % Normal . [facility] Comment on above: Performed By: #### C BC, BMP #### [address] Erythrocyte distribution width (RBC) [Ratio] 16.1 % High 12.0-14.8 [facility] Comment on above: Performed By: #### C BC, BMP #### [address] Hematocrit (Bld) [Volume fraction] 36.2 % Low 38.8-50.0 [facility] Comment on above: Performed By: #### C BC, BMP #### [address] Hemoglobin (Bld) [Mass/Vol] 12.1 g/dL Low 13.0-17.0 [facility] Comment on above: Performed By: #### C BC, BMP #### [address] Lymphocytes (Bld) [#/Vol] 0.5 10*3/uL Low 1.00-4.8 [facility] Comment on above: Performed By: #### C BC, BMP #### [address] Lymphocytes/100 WBC (Bld) 7.2 % Normal . [facility] Comment on above: Performed By: #### C BC, BMP #### [address] MCH (RBC) [Entitic mass] 31.1 pg Normal 27.5-35.2 [facility] Comment on above: Performed By: #### C BC, BMP #### [address] Mean Corpuscular HGB Conc 33.5 g/dL Normal 32.5-35.6 [facility] Comment on above: Performed By: #### C BC, BMP #### [address] Monocytes (Bld) [#/Vol] 0.2 10*3/uL Normal 0.0-0.8 [facility] Comment on above: Performed By: #### C BC, BMP #### [place] [id number] [place] Monocytes/100 WBC (Bld) 22.38 % High 0.00-20.00 [facility] Comment on above: Result Comment: For adults in ED, MDW > 20.0 may be associated with a higher risk of sepsis during the first 12 hrs of hospital admission Performed By: #### C BC, BMP #### [facility] [address] [place] [address] [place] Monocytes/100 WBC (Bld) 2.3 % Normal . [facility] Comment on above: Performed By: #### C BC, BMP #### [facility] [address] [place] [address] [place] Neutrophils (Bld) [#/Vol] 6.1 10*3/uL Normal 1.8-7.7 [facility] Comment on above: Performed By: #### C BC, BMP #### [place] [address] [place] Neutrophils/100 WBC (Bld) 90.0 % Normal . [facility] Comment on above: Performed By: #### C BC, BMP #### [place] [address] [place] NRBC% 0.0 /100{WBC} Normal 0-0.5 [facility] Comment on above: Performed By: #### C BC, BMP #### [place] [address] [place] Platelet mean volume (Bld) [Entitic vol] 8.0 fL Normal 6.6-10.1 [facility] Comment on above: Performed By: #### C BC, BMP #### [facility] [address] [place] [id number] [place] Platelets (Bld) [#/Vol] 180 10*3/uL Normal 150-450 [facility] Comment on above: Performed By: #### C BC, BMP #### [place] [address] [place] RBC (Bld) [#/Vol] 3.89 10*6/uL Low 3.90-5.60 [facility] Comment on above: Performed By: #### C BC, BMP #### [address] WBC (Bld) [#/Vol] 6.8 10*3/uL Normal 4.1-10.5 [facility] Comment on above: Performed By: #### C BC, BMP #### [address] Comprehensive Metabolic Pane garry 06-22-2023 Albumin [Mass/Vol] 3.5 g/dL Normal 3.5-5.7 [facility] Comment on above: Performed By: #### C BC, BMP #### [address] Creatinine Clr Calc Pharmacy 85.76 Normal [facility] Comment on above: Result Comment: PERF ORMED BY: [place] [address] PATHOLOGIST [employer] AALIYAH BENITEZ M.D. Performed By: #### C BC, BMP #### [address] GFR/1.73 sq M.predicted MDRD (S/P/Bld) [Vol rate/Area] mL/min/{1.73_m2} Normal [facility] Comment on above: Performed By: #### C BC, BMP #### [address] Creatine kinase [Enzymatic a ctivity/volume] in Serum or PlasmaOrdered By: Kristan Richardson on 06-22-2023 CK [Catalytic activity/Vol] 111 U/L Normal 30-223 [facility] Comment on above: Performed By: #### F L TRIG, GS, FL LDH, AERC, FLCCDIFF, FL TP, FL GLU, FS #### [address] #### AFBCS RES1, MYC CULT #### [facility] , Creatinine [Mass/volume] in Serum or PlasmaOrdered By: Kristan Richardson on 06-22-2023 Creatinine [Mass/Vol] 1.10 mg/dL Normal 0.70-1.30 [facility] Comment on above: Performed By: #### C BC, BMP #### [facility] [address] ECG 12 lead ECGon 06-22-2023 ECG 12 lead ECG [facility] [place] [address] [place] [address] Electrocardiograph Report Signed Patient: Ellis Barxton MR#: [id number] : 1955 Acct:[id number] Age/Sex: 67 / M ADM Date: 06/22/23 Loc: Room: [address] [place] [address] Type: ADM INOo Attending Dr: Damian Blevins DO Ordering Provider: Kristan Richardson Jr, MD Date of Service: 06/22/2301/04/150 ECG/ECG 12 lead ECG: Shortness of Breath/Dyspnea Copies to: Test Reason : Blood Pressure : 123/063 mmHG Vent. Rate : 079 BPM Atrial Rate : 079 BPM P-R Int : 146 ms QRS Dur : 108 ms QT Int : 386 ms P-R-T Axes : 062 -78 069 degrees QTc Int : 442 ms Sinus rhythm with occasional premature ventricular complexes and premature atrial complexes Left axis deviation Low voltage QRS Possible Anterolateral infarct (cited on or before 10-APR-2020) Abnormal ECG When compared with ECG of 08-MAR-2021 10:27, premature atrial complexes are now present Questionable change in initial forces of Septal leads Nonspecific T wave abnormality no longer evident in Lateral leads Confirmed by KRISTAN RICHARDSON MD ([id number]) on 06/22/2023 6:03:55 AM Referred By: Electronically Signed By:KRISTAN RICHARDSON MD Transcribed By: MUS Signed By Kristan Richardson Jr, [place] 0603 Normal [facility] Erythrocyte distribution wid th [Ratio] by Automated countOrdered By: Kristan Richardson on 06-22-2023 Erythrocyte distribution width (RBC) [Ratio] 16.3 % High 12.0-14.8 [facility] Comment on above: Performed By: #### F L TRIG, GS, FL LDH, AERC, FLCCDIFF, FL TP, FL GLU, FS #### [address] #### AFBCS RES1, MYC CULT #### [facility] , Erythrocytes [#/volume] in B lood by Automated countOrdered By: Kristan Richardson on 06-22-2023 RBC (Bld) [#/Vol] 3.75 10*6/uL Low 3.90-5.60 [facility] Comment on above: Performed By: #### F L TRIG, GS, FL LDH, AERC, FLCCDIFF, FL TP, FL GLU, FS #### [address] #### AFBCS RES1, MYC CULT #### [facility] , Glucose [Mass/volume] in Ser um or PlasmaOrdered By: Kristan Richardson on 06-22-2023 Glucose [Mass/Vol] 157 mg/dL High 70-100 [facility] Comment on above: ADA recommended refe rence rangeRandom Glucose Reference Range is dependent on time and content of last meal. Glucose of more than 200 mg/dL in a nonstressed, ambulatory subject supports the diagnosis of Diabetes Mellitus. Result Comment: [place] Glucose Reference Range is dependent on time and content of last meal. Glucose of more than 200 mg/dL in a nonstressed, ambulatory subject supports the diagnosis of Diabetes Mellitus. ADA recommended reference range Performed By: #### C BC, BMP #### [address] Hematocrit [Volume Fraction] of Blood by Automated countOrdered By: Kristan Richardson on 06-22-2023 Hematocrit (Bld) [Volume fraction] 34.8 % Low 38.8-50.0 [facility] Comment on above: Performed By: #### F L TRIG, GS, FL LDH, AERC, FLCCDIFF, FL TP, FL GLU, FS #### [address] #### AFBCS RES1, MYC CULT #### [facility] , Hemoglobin [Mass/volume] in BloodOrdered By: Kristan Richardson on 06-22-2023 Hemoglobin (Bld) [Mass/Vol] 11.6 g/dL Low 13.0-17.0 [facility] Comment on above: Performed By: #### F L TRIG, GS, FL LDH, AERC, FLCCDIFF, FL TP, FL GLU, FS #### [facility] [address] [place] [address] #### AFBCS RES1, MYC CULT #### [facility] , INR in Platelet poor plasma by Coagulation assayOrdered By: Kristan Richardson on 06-22-2023 INR Coag (PPP) [Relative time] 1.1 {INR} Normal [facility] Comment on above: INR Therapeutic Rang e A) Pre- and Peroperative OAT started two weeks before surgery. NOT HIP SURGERY: 1.5 - 2.5 HIP SURGERY: 2 - 3B) Primary and secondary prevention of venous THROMBOSIS: 2 - 3C) Active venous thrombosis, pulmonary embolismand prevention of recurrent venous thrombosis: 2 - 3D) Prevention of arterial thromboembolismincluding patients with mechanical heart valves: 3 - 4.5 Result Comment: INR Therapeutic Range A) Pre- and Peroperative OAT started two weeks before surgery. NOT HIP SURGERY: 1.5 - 2.5 HIP SURGERY: 2 - 3 B) Primary and secondary prevention of venous THROMBOSIS: 2 - 3 C) Active venous thrombosis, pulmonary embolism and prevention of recurrent venous thrombosis: 2 - 3 D) Prevention of arterial thromboembolism including patients with mechanical heart valves: 3 - 4.5 Performed By: #### C BC, [facility] #### [facility] [address] [place] [address] Leukocytes [#/volume] correc leticia for nucleated erythrocytes in Blood by Automated counOrdered By: Kristan iRchardson on 06-22-2023 WBC corrected for nucl RBC Auto (Bld) [#/Vol] 5.0 10*3/uL 4.1-10. [facility] Leukocytes [#/volume] in Blo od by Automated countOrdered By: Kristan Richardson on 06-22-2023 WBC (Bld) [#/Vol] 5.0 10*3/uL Normal 4.1-10.5 [facility] Comment on above: Performed By: #### F L TRIG, GS, FL LDH, AERC, FLCCDIFF, FL TP, FL GLU, FS #### [address] #### AFBCS RES1, MYC CULT #### [facility] , Lymphocytes [#/volume] in Bl ood by Automated countOrdered By: Kristan Richardson on 06-22-2023 Lymphocytes (Bld) [#/Vol] 0.8 10*3/uL Low 1.00-4.8 [facility] Comment on above: Performed By: #### F L TRIG, GS, FL LDH, AERC, FLCCDIFF, FL TP, FL GLU, FS #### [address] #### AFBCS RES1, MYC CULT #### [facility] , Lymphocytes/100 leukocytes i n Blood by Automated countOrdered By: Kristan Richardson on 06-22-2023 Lymphocytes/100 WBC (Bld) 15.2 % Normal . [facility] Comment on above: Performed By: #### F L TRIG, GS, FL LDH, AERC, FLCCDIFF, FL TP, FL GLU, FS #### [address] #### AFBCS RES1, MYC CULT #### [facility] , MCH [Entitic mass] by Automa leticia countOrdered By: Kristan Richardson on 06-22-2023 MCH (RBC) [Entitic mass] 30.9 pg Normal 27.5-35.2 [facility] Comment on above: Performed By: #### F L TRIG, GS, FL LDH, AERC, FLCCDIFF, FL TP, FL GLU, FS #### [place] [address] [place] #### AFBCS RES1, MYC CULT #### [facility] , MCHC Auto (RBC) [Mass/Vol]Or dered By: Kristan Richardson on 06-22-2023 MCHC (RBC) [Mass/Vol] 33.2 g/dL 32.5-35.6 [facility] MCV [Entitic volume] by Auto mated countOrdered By: Kristan Richardson on 06-22-2023 MCV (RBC) [Entitic vol] 93.0 fL Normal 83.5-101 [facility] Comment on above: Performed By: #### F L TRIG, GS, FL LDH, AERC, FLCCDIFF, FL TP, FL GLU, FS #### [address] #### AFBCS RES1, MYC CULT #### [facility] , Performed By: #### C BC, BMP #### [address] Magnesiumon 06-22-2023 Magnesium [Mass/Vol] 1.8 mg/dL Low 1.9-2.7 [facility] Comment on above: Result Comment: PERF ORMED BY: [place] [address] PATHOLOGIST [employer] AALIYAH BENITEZ M.D. Performed By: #### C BC, BMP #### [address] Monocyte distribution width [Entitic volume] in Blood by AutomatedOrdered By: Kristan Richardson on 06-22-2023 Monocyte distribution width Auto (Bld) [Entitic vol] 21.04 % 0.00-20.00 [facility] Comment on above: For adults in ED, W > 20.0 may be associated with a higher risk of sepsis during the first 12 hrs of hospital admission Neutrophils [#/volume] in Bl ood by Automated countOrdered By: Kristan Richardson on 06-22-2023 Neutrophils (Bld) [#/Vol] 3.2 10*3/uL Normal 1.8-7.7 [facility] Comment on above: Performed By: #### F L TRIG, GS, FL LDH, AERC, FLCCDIFF, FL TP, FL GLU, FS #### [address] #### AFBCS RES1, MYC CULT #### [facility] , No Panel InformationOrdered By: Kristan Richardson on 06-22-2023 Estimated GFR (CKD-EPI) > 60.0 mL/Min [facility] Creatinine Clearance (Chem 85.76 [facility] Nucleated erythrocytes [Pres ence] in Blood by Automated countOrdered By: Kristan Richardson on 06-22-2023 Nucleated RBC Auto Ql (Bld) 0.1 /100{WBC} 0-0.5 [facility] Partial Thromboplastin Timeo n 06-22-2023 aPTT Coag (Bld) [Time] 51.2 s High 25.1-36.5 Th e [facility] Comment on above: Result Comment: A he matocrit value greater than 55% may lead to inaccurate results in coagulation testing. Patients having hematocrit values >55% require a special collection tube for coagulation studies. Please contact the laboratory at [phone] for redraw instructions. PERFORMED BY: [place] [address] PATHOLOGIST [employer] AALIYAH BENITEZ M.D. Performed By: #### C BC, BMP #### [facility] [address] [place] [address] Platelet mean volume [Entiti c volume] in Blood by Automated countOrdered By: Kristan Richardson on 06-22-2023 Platelet mean volume (Bld) [Entitic vol] 8.3 fL Normal 6.6-10.1 [facility] Comment on above: Performed By: #### F L TRIG, GS, FL LDH, AERC, FLCCDIFF, FL TP, FL GLU, FS #### [facility] [address] [place] [address] #### AFBCS RES1, MYC CULT #### [facility] , Platelets [#/volume] in Bloo d by Automated countOrdered By: Kristan Richardson on 06-22-2023 Platelets (Bld) [#/Vol] 173 10*3/uL Normal 150-450 [facility] Comment on above: Performed By: #### F L TRIG, GS, FL LDH, AERC, FLCCDIFF, FL TP, FL GLU, FS #### [place] [address] [place] #### AFBCS RES1, MYC CULT #### [facility] , Potassium [Moles/volume] in Serum or PlasmaOrdered By: Kristan Richardson on 06-22-2023 Potassium [Moles/Vol] 4.4 mmol/L Normal 3.5-5.1 [facility] Comment on above: Performed By: #### C BC, BMP #### [address] Protein [Mass/volume] in Ser um or PlasmaOrdered By: Kristan Richardson on 06-22-2023 Protein [Mass/Vol] 5.9 g/dL Low 6.4-8.9 [facility] Comment on above: Performed By: #### C BC, BMP #### [address] Prothrombin time (PT)Ordered By: Kristan Richardson on 06-22-2023 PT Coag (PPP) [Time] 13.2 s High 9.0-12.9 [facility] Comment on above: A hematocrit value g reater than 55% may lead to inaccurate results in coagulation testing. Patients having hematocrit values >55% require a special collection tube for coagulation studies. Please contact the laboratory at [phone] for redraw instructions. Result Comment: A he matocrit value greater than 55% may lead to inaccurate results in coagulation testing. Patients having hematocrit values >55% require a special collection tube for coagulation studies. Please contact the laboratory at [phone] for redraw instructions. Performed By: #### C BC, BMP #### [address] Respiratory (Upper) Panel, P CRon 06-22-2023 Respiratory (Upper) Panel, PCR Adenovirus Not detected Bordetella parapertussis Not detected Chlamydia pneumoniae Not detected Coronavirus 229E Not detected Coronavirus HKU1 Not detected Coronavirus NL63 Not detected Coronavirus OC43 Not detected Influenza A Not detected Influenza B Not detected Human Metapneumovirus Detected Mycoplasma pneumoniae Not detected Parainfluenza Virus 1 Not detected Parainfluenza Virus 2 Not detected Parainfluenza Virus 3 Not detected Parainfluenza Virus 4 Not detected Bordetella pertussis-ptxP Not detected Human Rhino/Enterovirus Not detected Resp. Syncytial Virus Not detected COVID-19 Detected/Not Detected Not detected Blank Space -------- FLUA TEST INCLUDES Influenza A tests for the following clinically FLUA TEST INCLUDES significant subtypes: FLUA TEST INCLUDES - Influenza A FLUA TEST INCLUDES - Influenza A H1 FLUA TEST INCLUDES - Influenza A H1 2009 FLUA TEST INCLUDES - Influenza A H3 Blank Space -------- PERFORMED BY: [place] [address] PATHOLOGIST [employer] AALIYAH BENITEZ M.D. Normal [facility] Comment on above: Performed By: #### C ANA, BMP #### [address] Respiratory pathogens DNA an d RNA panel - Nasopharynx by GALEN with non-probe detectionOrdered By: Kristan Richardson on 06-22-2023 Respiratory pathogens DNA and RNA panel GALEN+non-probe (Nph) [facility] Serum globulin measurement b y calculation (mass/volume)Ordered By: Kristan Richardson on 06-22-2023 Globulin (S) [Mass/Vol] 2.4 g/dL [facility] Comment on above: Performed By: #### C ANA, BMP #### [address] Serum or plasma albumin/glob ulin mass ratioOrdered By: Kristan Richardson on 06-22-2023 Albumin/Globulin [Mass ratio] 1.5 {ratio} [facility] Comment on above: Performed By: #### C ANA, BMP #### [address] Serum or plasma anion gap de terminationOrdered By: Kristan Richardson on 06-22-2023 Anion gap [Moles/Vol] 9.1 mmol/L Normal 6.0-15.0 [facility] Comment on above: Performed By: #### C BC, BMP #### [address] Sodium [Moles/volume] in Ser um or PlasmaOrdered By: Kristan Richardson on 06-22-2023 Sodium [Moles/Vol] 132 mmol/L Low 136-145 [facility] Comment on above: Performed By: #### C ANA, BMP #### [address] Troponin I High Sensitivityo n 06-22-2023 Troponin I High Sensitivity 27.0 pg/mL High 0.0-20.0 [facility] Comment on above: Result Comment: PERF ORMED BY: [place] [address] PATHOLOGIST [employer] AALIYAH BENITEZ M.D. Performed By: #### F L TRIG, GS, FL LDH, AERC, FLCCDIFF, FL TP, FL GLU, FS #### [address] #### AFBCS RES1, MYC CULT #### [facility] , Troponin I.cardiac [Mass/vol ume] in Serum or Plasma by Detection limit <= 0.01 ng/Ordered By: Kristan Richardson on 06-22-2023 Troponin I.cardiac DL <= 0.01 ng/mL [Mass/Vol] 27.0 pg/mL 0.0-20.0 [facility] Urea nitrogen [Mass/volume] in Serum or PlasmaOrdered By: Kristan Richardson on 06-22-2023 Urea nitrogen [Mass/Vol] 25 mg/dL Normal 7-25 [facility] Comment on above: Performed By: #### C BC, BMP #### [address] XR chest 1V portableon 06-21 XR chest 1V portable [facility] [place] [address] [place] [id number] XRay Report Signed Patient: Ellis Braxton MR#: [id number] : 1955 Acct:[id number] Age/Sex: 67 / M ADM Date: 06/22/23 Loc: Room: [address] [place] [address] Type: ADM INOo Attending Dr: Magnus Church DO Copies to: DO Kristan Alvarado Jr, MD Ordering Provider: Kristan Richardson Jr, MD Date of Service: 06/22/23 XR/XR chest 1V portable: Shortness of Breath/Dyspnea Plain film chest Single view HISTORY: Shortness of breath. Productive cough. COMPARISON: 05/16/23 FINDINGS: SUPPORT DEVICES: None POSTSURGICAL CHANGES: None HEART: Stable PULMONARY RONDA: Within normal limits MEDIASTINUM: Unremarkable LUNGS AND PLEURA: Continued RIGHT basilar pleural-parenchymal changes. BONY STRUCTURES: Intact ADDITIONAL FINDINGS None XR/XR chest 1V portable IMPRESSION: Continued RIGHT basilar pleural-parenchymal changes. Impression dictated by: Javier Carlson M.D.06/22/2023 8:54 AM Dictation Location: [place] [address] Transcribed By: [facility] 06/22/23 0854 Dictated By: Javier Carlson DO 06/22/23 0850 Signed By: 06/22/23 0854 Normal [facility] Capillary blood glucose jonathan urement by glucometer (mass/volume)Ordered By: Florence Milner on 06-03-2023 Glucose [Mass/Vol] 133 mg/dL Normal [facility] Comment on above: Random Glucose Refer ence Range is dependent on time and content of last meal. Glucose of more than 200 mg/dL in a nonstressed, ambulatory subject supports the diagnosis of Diabetes Mellitus. Result Comment: [place] om Glucose Reference Range is dependent on time and content of last meal. Glucose of more than 200 mg/dL in a nonstressed, ambulatory subject supports the diagnosis of Diabetes Mellitus. PERFORMED BY: [address] [address] PATHOLOGIST [employer] AALIYAH BENITEZ M.D. Performed By: #### F L TRIG, GS, FL LDH, AERC, FLCCDIFF, FL TP, FL GLU, FS #### [address] #### AFBCS RES1, MYC CULT #### [facility] , Garry 06-03-2023 L Specimen: [id number] Received: 06/03/23 Status: HIRAMZane Levine Num: [id number] Spec Type: Surgical Subm Dr: Florence Milner MD Tissues: A GASTRIC FOR HP (GASTRIC HP) B Colon Biopsy (CECUM POLYPOID MASS) C Colon Biopsy (ASC POLYP) D Colon Biopsy (HEPATIC FLEXURE POLYP) E Colon Biopsy (SIGMOID POLYP) Procedures: HE/10, Gross/Micro L4/5, H PYLORI, IHC First AB Age/ Patient Sex Location Account Attending Physician Ellis Braxton 67/M [id number] Florence Milner MD SPEC NUM: RECD: 06/03/23 STATUS: KAVITA LOPES NUM: [id number] MARVIN: 06/03/23 DR: Florence Milner MD ENTERED: 06/03/[address] [facility] [address]: SPEC TYPE: Surgical DEPT: S ORDERED: HE/10, Gross/Micro L4/5, H PYLORI, IHC First AB ORDERED: HE/10, Gross/Micro L4/5, H PYLORI, IHC First AB Pathological Diagnosis A. Stomach, Biopsy: Chronic Inactive Gastritis. - H. Pylori Immunostain Is Negative For H. Pylori Organisms. B. Cecum, Biopsy: Tubulovillous Adenoma. - Negative For High Grade Dysplasia And Malignancy. C. Polyp, Ascending Colon, Biopsy: Serrated Adenoma. - Negative For High Grade Dysplasia And Malignancy. D. Polyp, Hepatic flexure Colon, Biopsy: Tubular Adenoma. - Negative For High Grade Dysplasia And Malignancy. E. Polyp, Sigmoid Colon, Biopsy: Tubular Adenoma. - Negative For High Grade Dysplasia And Malignancy. Specimen: [id number] Received: 06/03/23 Status: KAVITA Lopes Num: [id number] Spec Type: Surgical Subm Dr: Florence Milner MD Tissues: A GASTRIC FOR HP (GASTRIC HP) B Colon Biopsy (CECUM POLYPOID MASS) C Colon Biopsy (ASC POLYP) D Colon Biopsy (HEPATIC FLEXURE POLYP) E Colon Biopsy (SIGMOID POLYP) Procedures: HE/10, Gross/Micro L4/5, H PYLORI, IHC First AB Patient: Ellis Braxton [id number] (Continued) Specimen: [id number] Received: 06/03/23 (Continued) Signed (signature on file) Galdino Son MD 06/06/23 1237 Specimen: [id number] Received: 06/03/23 Status: KAVITA Lopes Num: [id number] Spec Type: Surgical Subm Dr: Florence Milner MD Tissues: A GASTRIC FOR HP (GASTRIC HP) B Colon Biopsy (CECUM POLYPOID MASS) C Colon Biopsy (ASC POLYP) D Colon Biopsy (HEPATIC FLEXURE POLYP) E Colon Biopsy (SIGMOID POLYP) Procedures: HE/10, Gross/Micro L4/5, H PYLORI, IHC First AB Patient: Ellis Braxton [id number] (Continued) Specimen: [id number] Received: 06/03/23 (Continued) Clinical Information Anemia, screening, rule out H. pylori; B) polypoid mass Gross Description A. Received in formalin labeled with the patient's name, date of and gastric biopsy are two garcia tissues measuring 0.2 cm and 0.7 x 0.2 x 0.1 cm. Entirely submitted in one cassette labeled A1. B. Received in formalin labeled with the patient's name, date of and cecum biopsy are four garcia tissues averaging 0.3 cm. Entirely submitted in one cassette labeled B1. C. Received in formalin labeled with the patient's name, date of and ascending polyp are multiple garcia tissues measuring 2.0 x 0.5 x 0.2 cm in aggregate. Entirely submitted in one cassette labeled C1. D. Received in formalin labeled with the patient's name, date of and hepatic flexure polyp are multiple garcia tissues and fecal material measuring 3.0 x 1.0 x 0.3 cm in aggregate. Entirely submitted in one cassette labeled D1. E. Received in formalin labeled with the patient's name, date of and sigmoid polyp is one garcia tissue measuring 0.5 x 0.3 x 0.2 cm, admixed with fecal material. Entirely submitted in one cassette labeled E1. CPT Codes 32705c2 Specimen: [id number] Received: 06/03/23 Status: KAVITA Lopes Num: [id number] Spec Type: Surgical Subm Dr: Florence Milner MD Tissues: A GASTRIC FOR HP (GASTRIC HP) B Colon Biopsy (CECUM POLYPOID MASS) C Colon Biopsy (ASC POLYP) D Colon Biopsy (HEPATIC FLEXURE POLYP) E Colon Biopsy (SIGMOID POLYP) Procedures: HE/10, Gross/Micro L4/5, H PYLORI, IHC First AB Patient: Ellis Braxton [id number] (Continu (more content not included)... Normal [facility] AFB Specimen Processingon AFB Specimen Processing Comment TUBE 2 Right Pleural Fluid Direct Inoculation Comment TUBE 2 Right Pleural Fluid Negative Performed at: [address] [id number] [employer]: Augustine Hsu PhD, Phone: [phone] Comment TUBE 2 Right Pleural Fluid Negative No acid fast bacilli isolated after 6 weeks. Performed at: [address] [id number] [employer]: Augustine Hsu PhD, Phone: [phone] PERFORMED BY: [place] [address] PATHOLOGIST [employer] AALIYAH BENITEZ M.D. Normal [facility] Comment on above: Performed By: #### C BC, BMP #### [address] AFB cultureOrdered By: Mick Lozano on 05-16-2023 Mycobacterium sp identified Org specific cx Nom (Unsp spec) [facility] Aerobic Cultureon 05-16-2023 Aerobic Culture Comment TUBE 2 Right Pleural Fluid No Growth 2 Days Comment TUBE 2 Right Pleural Fluid No Anaerobes Isolated 3 Days Comment TUBE 2 Right Pleural Fluid Gram Stain Result Rare White Blood Cells No Bacteria Seen PERFORMED BY: [place] [address] PATHOLOGIST [employer] AALIYAH BENITEZ M.D. Normal [facility] Comment on above: Performed By: #### C BC, BMP #### [address] Body fluid differential cell countOrdered By: Ashish Lozano on 05-16-2023 Differential panel (Body fld) 88 % [facility] Comment on above: The reference interv al and other method performance specifications have not been established for this body fluid. The test result must be integrated into the clinical context for interpretation. Cell Count/Diff, Fluidon Appearance, Fluid Hazy Normal [facility] Comment on above: Order Comment: Comme nt Purple top Body Fluid Source: Thoracentesis Fluid Body Fluid Site: right hemithorax Result Comment: The reference interval and other method performance specifications have not been established for this body fluid. The test result must be integrated into the clinical context for interpretation. Performed By: #### F L TRIG, GS, FL LDH, AERC, FLCCDIFF, FL TP, FL GLU, FS #### [address] #### AFBCS RES1, MYC CULT #### [facility] , Color, Fluid Yellow Normal [facility] Comment on above: Order Comment: Comme nt Purple top Body Fluid Source: Thoracentesis Fluid Body Fluid Site: right hemithorax Result Comment: The reference interval and other method performance specifications have not been established for this body fluid. The test result must be integrated into the clinical context for interpretation. Performed By: #### F L TRIG, GS, FL LDH, AERC, FLCCDIFF, FL TP, FL GLU, FS #### [address] #### AFBCS RES1, MYC CULT #### [facility] , Color, Fluid Supernatant Yellow Normal [facility] Comment on above: Order Comment: Comme nt Purple top Body Fluid Source: Thoracentesis Fluid Body Fluid Site: right hemithorax Result Comment: The reference interval and other method performance specifications have not been established for this body fluid. The test result must be integrated into the clinical context for interpretation. Performed By: #### F L TRIG, GS, FL LDH, AERC, FLCCDIFF, FL TP, FL GLU, FS #### [address] #### AFBCS RES1, MYC CULT #### [facility] , Eosinophils, Fluid 0 /100{WBC} Normal 0-3 [facility] Comment on above: Order Comment: Comme nt Purple top Body Fluid Source: Thoracentesis Fluid Body Fluid Site: right hemithorax Result Comment: PERF ORMED BY: [place] [address] PATHOLOGIST [employer] AALIYAH BENITEZ M.D. Performed By: #### F L TRIG, GS, FL LDH, AERC, FLCCDIFF, FL TP, FL GLU, FS #### [place] [address] [place] #### AFBCS RES1, MYC CULT #### [facility] , Lymphocytes, Fluid 7 % Normal [facility] Comment on above: Order Comment: Comme nt Purple top Body Fluid Source: Thoracentesis Fluid Body Fluid Site: right hemithorax Result Comment: The reference interval and other method performance specifications have not been established for this body fluid. The test result must be integrated into the clinical context for interpretation. Performed By: #### F L TRIG, GS, FL LDH, AERC, FLCCDIFF, FL TP, FL GLU, FS #### [address] #### AFBCS RES1, MYC CULT #### [facility] , Monocytes/Macrophages, Fluid 88 % Normal [facility] Comment on above: Order Comment: Comme nt Purple top Body Fluid Source: Thoracentesis Fluid Body Fluid Site: right hemithorax Result Comment: The reference interval and other method performance specifications have not been established for this body fluid. The test result must be integrated into the clinical context for interpretation. Performed By: #### F L TRIG, GS, FL LDH, AERC, FLCCDIFF, FL TP, FL GLU, FS #### [place] [address] [place] #### AFBCS RES1, MYC CULT #### [facility] , Neutrophil, Fluid 5 % Normal [facility] Comment on above: Order Comment: Comme nt Purple top Body Fluid Source: Thoracentesis Fluid Body Fluid Site: right hemithorax Result Comment: The reference interval and other method performance specifications have not been established for this body fluid. The test result must be integrated into the clinical context for interpretation. Performed By: #### F L TRIG, GS, FL LDH, AERC, FLCCDIFF, FL TP, FL GLU, FS #### [place] [address] [place] #### AFBCS RES1, MYC CULT #### [facility] , RBC, Fluid 5144 Normal [facility] Comment on above: Order Comment: Comme nt Purple top Body Fluid Source: Thoracentesis Fluid Body Fluid Site: right hemithorax Result Comment: The reference interval and other method performance specifications have not been established for this body fluid. The test result must be integrated into the clinical context for interpretation. Performed By: #### F L TRIG, GS, FL LDH, AERC, FLCCDIFF, FL TP, FL GLU, FS #### [facility] [address] [place] [address] [place] #### AFBCS RES1, MYC CULT #### [facility] , TNC, Body Fluid 265 Normal The [facility] Comment on above: Order Comment: Comme nt Purple top Body Fluid Source: Thoracentesis Fluid Body Fluid Site: right hemithorax Result Comment: The reference interval and other method performance specifications have not been established for this body fluid. The test result must be integrated into the clinical context for interpretation. Performed By: #### F L TRIG, GS, FL LDH, AERC, FLCCDIFF, FL TP, FL GLU, FS #### [facility] [address] [place] [address] [place] #### AFBCS RES1, MYC CULT #### [facility] , Cells Counted Total [#] in B michelle fluidOrdered By: Ashish Lozano on 05-16-2023 Cells Counted Total (Body fld) [#] 265 mm^3 [facility] Comment on above: The reference interv al and other method performance specifications have not been established for this body fluid. The test result must be integrated into the clinical context for interpretation. Color of Spun Body fluidOrde red By: Ashish Lozano on 05-16-2023 Color (Spun body fld) Yellow [facility] Comment on above: The reference interv al and other method performance specifications have not been established for this body fluid. The test result must be integrated into the clinical context for interpretation. Determination of appearance of body fluidOrdered By: Ashish Lozano on 05-16-2023 Appearance (Body fld) Hazy [facility] Comment on above: The reference interv al and other method performance specifications have not been established for this body fluid. The test result must be integrated into the clinical context for interpretation. Erythrocytes [#/volume] in B michelle fluid by Automated countOrdered By: Ashish Lozano on 05-16-2023 RBC Auto (Body fld) [#/Vol] 5144 mm^3 [facility] Comment on above: The reference interv al and other method performance specifications have not been established for this body fluid. The test result must be integrated into the clinical context for interpretation. Evaluation of color of body fluidOrdered By: Ashish Lozano on 05-16-2023 Color (Body fld) Yellow [facility] Comment on above: The reference interv al and other method performance specifications have not been established for this body fluid. The test result must be integrated into the clinical context for interpretation. Fungal Smearon 05-16-2023 Fungal Smear Comment TUBE 2 Right Pleural Fluid Fungus Smear Results No Yeast Like Elements Seen No Fungal Like Elements Seen PERFORMED BY: [place] [address] PATHOLOGIST [employer] AALIYAH BENITEZ M.D. Normal [facility] Comment on above: Performed By: #### F L TRIG, GS, FL LDH, AERC, FLCCDIFF, FL TP, FL GLU, FS #### [address] #### AFBCS RES1, MYC CULT #### [facility] , Fungal cultureOrdered By: Catrachita Lozano on 05-16-2023 Fungus identified Cx Nom (Unsp spec) [facility] Fungus (Mycology) Cultureon 05-16-2023 Fungus (Mycology) Culture Thoracentesis fluid Right Pleural Fluid Final report Thoracentesis fluid Right Pleural Fluid No yeast or mold isolated after 4 weeks. Performed at: - [facility] [id number] [employer]: Augustine Hsu PhD, Phone: [phone] PERFORMED BY: [place] [address] PATHOLOGIST [employer] AALIYAH BENITEZ M.D. Normal [facility] Comment on above: Performed By: #### C BC, BMP #### [address] Glucose [Mass/volume] in Bod y fluidOrdered By: Ashish Lozano on 05-16-2023 Glucose (Body fld) [Mass/Vol] 139 mg/dL [facility] Comment on above: No reference range e stablished Glucose, Fluidon 05-16-2023 Glucose, Fluid 139 mg/dL Normal [facility] Comment on above: Order Comment: Tube Number Tube 1 Body Fluid Source: Thoracentesis Fluid Body Fluid Site: right hemithorax Result Comment: No r eference range established Performed By: #### F L TRIG, GS, FL LDH, AERC, FLCCDIFF, FL TP, FL GLU, FS #### [address] #### AFBCS RES1, MYC CULT #### [facility] , Gram Stainon 05-16-2023 Microscopic observation Gram stain Nom (Unsp spec) Comment TUBE 2 Right Pleural Fluid Gram Stain Result Rare White Blood Cells No Bacteria Seen PERFORMED BY: [place] [address] PATHOLOGIST [employer] AALIYAH BENITEZ M.D. Normal [facility] Comment on above: Performed By: #### F L TRIG, GS, FL LDH, AERC, FLCCDIFF, FL TP, FL GLU, FS #### [address] #### AFBCS RES1, MYC CULT #### [facility] , Gram stain for investigation of transfusion reactionOrdered By: Ashish Lozano on 05-16-2023 Microscopic observation Gram stain Nom (Unsp spec) No Anaerobes Isolated 3 Days [facility] Garry 05-16-2023 L Specimen: [id number] Received: 05/17/23 Status: SOUT Req Num: [id number] Spec Type: Cytology Subm Dr: Ashish Lozano MD Tissues: A PLEURAL FLUID (RT. LUNG (AROUND)) Procedures: HE/2, Gross/Micro L4, Cyto Prepstain, PAPSTN Age/ Patient Sex Location Account Attending Physician AngusEllis ellsworth Ariadna 67/M [id number] Ashish Lozano MD SPEC NUM: [id number] RECD: 05/17/23 STATUS: KAVITA LOPES NUM: [id number] MARVIN: 05/16/[address]: Ashish Lozano MD ENTERED: 05/17/[address] [facility] [address]: SPEC TYPE: Cytology DEPT: CN ORDERED: HE/2, Gross/Micro L4, Cyto Prepstain, PAPSTN ORDERED: HE/2, Gross/Micro L4, Cyto Prepstain, PAPSTN Pathological Diagnosis Right thoracocentesis fluid, cytology: -Negative for malignant cells -Mostly are chronic inflammatory cells and few mesothelial cells are randomly intermixed -Cell block section also showing similar findings CPT: 90871 [id number] Clinical Information Fluid around right lung Gross Description Received fresh labeled with the patient's name, date of and rt pleural fluid per requisition is 900 ml dark yellow-orange, mucinous, cloudy unfixed fluid . 1 Thin Prep slides are prepared. 1 cell blocks are prepared. (CC/nh) Specimen: [id number] Received: 05/17/23-1145 Status: KAVITA Lopes Num: [id number] Spec Type: Cytology Subm Dr: Ashish Lozano MD Tissues: A PLEURAL FLUID (RT. LUNG (AROUND)) Procedures: HE/2, Gross/Micro L4, Cyto Prepstain, PAPSTN Patient: Ellis Braxton [id number] (Continued) Signed (signature on file) Sergio Conklin MD 05/18/23 1543 Normal [facility] LDH, Fluidon 05-16-2023 LDH, Fluid 135 [IU]/mL Normal [facility] Comment on above: Order Comment: Tube Number Tube 1 Body Fluid Source: Thoracentesis Fluid Body Fluid Site: right hemithorax Result Comment: No r eference range established Performed By: #### F L TRIG, GS, FL LDH, AERC, FLCCDIFF, FL TP, FL GLU, FS #### [facility] [address] #### AFBCS RES1, MYC CULT #### [facility] , Lactate dehydrogenase [Enzym atic activity/volume] in Body fluid by Lactate to pyruvatOrdered By: Ashish Lozano on 05-16-2023 LDH Lactate to pyruvate reaction (Body fld) [Catalytic activity/Vol] 135 [IU]/mL [facility] Comment on above: No reference range e stablished Manual body fluid eosinophil s/100 leukocytesOrdered By: Ashish Lozano on 05-16-2023 Eosinophils/100 WBC Manual cnt (Body fld) 0 /100{WBC} 0-3 [facility] Manual body fluid lymphocyte s/100 leukocytesOrdered By: Ashish Lozano on 05-16-2023 Lymphocytes/100 WBC Manual cnt (Body fld) 7 % [facility] Comment on above: The reference interv al and other method performance specifications have not been established for this body fluid. The test result must be integrated into the clinical context for interpretation. Neutrophils/100 WBC Manual c nt (Body fld)Ordered By: Ashish Lozano on 05-16-2023 Neutrophils/100 WBC (Body fld) 5 % [facility] Comment on above: The reference interv al and other method performance specifications have not been established for this body fluid. The test result must be integrated into the clinical context for interpretation. No Panel InformationOrdered By: Ashish Lozano on 05-16-2023 Mycology Susceptibility N/A [facility] Protein [Mass/volume] in Bod y fluidOrdered By: Ashish Lozano on 05-16-2023 Protein (Body fld) [Mass/Vol] 3.8 g/dL [facility] Synovial fluid triglyceride measurementOrdered By: Ashish Lozano on 05-16-2023 Triglyceride (Body fld) [Mass/Vol] 19 mg/dL [facility] Comment on above: No reference range e stablished Total Protein, Fluidon 05-15 Total Protein, Fluid 3.8 g/dL Normal [facility] Comment on above: Order Comment: Tube Number Tube 1 Body Fluid Source: Thoracentesis Fluid Body Fluid Site: right hemithorax Performed By: #### F L TRIG, GS, FL LDH, AERC, FLCCDIFF, FL TP, FL GLU, FS #### [facility] [address] [place] [address] #### AFBCS RES1, MYC CULT #### [facility] , Triglyceride, Fluidon 2023 Triglyceride, Fluid 19 mg/dL Normal [facility] Comment on above: Order Comment: Tube Number Tube 1 Body Fluid Source: Thoracentesis Fluid Body Fluid Site: right hemithorax Result Comment: No r eference range established PERFORMED BY: [place] [address] PATHOLOGIST [employer] AALIYAH BENITEZ M.D. Performed By: #### F L TRIG, GS, FL LDH, AERC, FLCCDIFF, FL TP, FL GLU, FS #### [place] [address] [place] #### AFBCS RES1, MYC CULT #### [facility] , XR chest 1V portableon 05-15 XR chest 1V portable [facility] [place] [address] [place] [address] XRay Report Signed Patient: Ellis Braxton MR#: [id number] : 1955 Acct:[id number] Age/Sex: 67 / M ADM Date: 05/16/23 Loc: Room: Type: [facility] Attending Dr: Ashish Lozano MD Copies to: Ashish Lozano MD Ordering Provider: Ashish Lozano MD Date of Service: 05/16/23 XR/XR chest 1V portable: S/P THORACENTESIS PORTABLE AP ERECT CHEST 1235 hours CLINICAL HISTORY: Follow-up after right thoracentesis COMPARISON: 03/09/2023 The heart is slightly prominent. There is no vascular congestion. There is still right pleural effusion, slightly less than the prior. Underlying basilar consolidation is not excluded. There is no postprocedure pneumothorax. Endplate spurring is seen at the spine. XR/XR chest 1V portable IMPRESSION: RESIDUAL RIGHT BASILAR PLEURAL AND POSSIBLE PARENCHYMAL CHANGE. NO POSTPROCEDURE PNEUMOTHORAX. Impression dictated by: Cheyanne Gary M.D.05/16/2023 1:14 PM Dictation Location: [place] [address] Transcribed By: WINSOME 05/16/23 1314 Dictated By: Cheyanne Gary MD 05/16/23 1313 Signed By: 05/16/23 1314 Normal [facility] HbA1c HPLC (Bld) [Mass fract ion]on 05-09-2023 HbA1c (Bld) [Mass fraction] 6.6 % [facility] No Panel Informationon 05-09 Bedside Glucose 120 [facility] Screenson 02-23-2023 Screens [id number] TIFF Normal [facility] Patient Educationon 02-23-20 Patient Education Urology Benign Prostatic Hyperplasia Benign [...] Follow these instructions at home: ? Take bbck-mvz-jcrwlvo and prescription medicines only as told by [...] the medicine (more content not included)... Normal [facility] Urology Office/Clinic Noteon 02-22-2023 Urology Office/Clinic Note [...] urinary tract symptoms) S/p Cysto with Dr Proctor on 07/09/20 UA today is clear/neg for [...] year [facility] [address], [place] [address]- Additional Instructions: w/PSA Patient Education Benign Prostatic Hyperplasia I, Peggy Lane , personally scribed for Dr. Proctor on 02/22/2023 09:38:12. . Portions of this record may have been created with voice recognition artificial intelligence software, specifically [employer], [employer] and or [email or web address]. Substitutions may have occurred due to the [...] Tab, Oral, (more content not included)... Normal [facility] Comment on above: Result Comment: Elec tronically Signed By: Mayank PROCTOR MD\.br\Date and Time Signed: 02/22/23 09:40 EST\.br\Electronically Co-Signed By: Peggy Lane\.br\Date and Time Co-Signed: 02/22/23 09:38 EST [facility] 02-17-2023 Lab Reports [id number] IFF Normal [facility] PSA Total (Not a Screen)on 1 2-06-2023 PSA Total (Not a Screen) 0.040 ng/mL Normal 0.000-4.000 [facility] Comment on above: Result Comment: PERF ORMED BY: [place] [address] PATHOLOGIST [employer] AALIYAH BENITEZ M.D. Performed By: #### F L TRIG, GS, FL LDH, AERC, FLCCDIFF, FL TP, FL GLU, FS #### [facility] [address] [place] [address] #### AFBCS RES1, MYC CULT #### [facility] , Prostate specific Ag [Mass/v olume] in Serum or PlasmaOrdered By: Mayank Proctor on 02-16-2023 Prostate specific Ag [Mass/Vol] 0.040 ng/mL 0.000-4.000 [facility] A1C HEMOGLOBINon 02-02-2023 HbA1c (Bld) [Mass fraction] 6.8 % [employer] Other Glucose - FINGER STICKon Glucose [Mass/Vol] 87 mg/dL [employer] Other HbA1c (Bld) [Mass fraction]o n 02-02-2023 A1C HEMOGLOBIN [employer] Other Alanine aminotransferase [En zymatic activity/volume] in Serum or PlasmaOrdered By: Suzi Saxena on 10-18-2022 ALT [Catalytic activity/Vol] 13 U/L Normal 7-52 [facility] Comment on above: Order Comment: PT FA STED 12 HOURS 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;Hyperlipid Performed By: #### C BC, BMP #### [facility] [address] [place] [address] Albumin [Mass/volume] in Ser um or Plasma by Bromocresol green (BCG) dye binding methoOrdered By: Suzi Saxena on 10-18-2022 Albumin BCG dye [Mass/Vol] 3.7 g/dL 3.5-5.7 [facility] Alkaline phosphatase [Enzyma tic activity/volume] in Serum or PlasmaOrdered By: Tondra Mapus on 10-18-2022 ALP [Catalytic activity/Vol] 58 U/L Normal 34-104 [facility] Comment on above: Order Comment: PT FA STED 12 HOURS 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;Hyperlipid Performed By: #### C BC, BMP #### [facility] [address] Aspartate aminotransferase [ Enzymatic activity/volume] in Serum or PlasmaOrdered By: Tondra Mapus on 10-18-2022 AST [Catalytic activity/Vol] 18 U/L Normal 13-39 [facility] Comment on above: Order Comment: PT FA STED 12 HOURS 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 A metabolite of Naproxen, O-desmethylnaproxen, has been shown to interfere with the Jendrassik-Grof method for measuring Total Bilirubin. 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 A metabolite of Naproxen, O-desmethylnaproxen, has been shown to interfere with the Jendrassik-Grof method for measuring Total Bilirubin. 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;Hyperlipid Performed By: #### C BC, BMP #### [facility] [address] [place] [address] [place] Cholesterol [Mass/volume] in Serum or PlasmaOrdered By: Tondra Patriciaus on 10-18-2022 Cholesterol [Mass/Vol] 107 mg/dL Low 140-200 [facility] Comment on above: Chol less than 200 m g/dl low riskChol 201-239 mg/dl borderline riskChol 240 mg/dl and greater high risk Order Comment: PT FA STED 12 HOURS 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;Hyperlipid Result Comment: Chol less than 200 mg/dl low risk Chol 201-239 mg/dl borderline risk Chol 240 mg/dl and greater high risk Performed By: #### C BC, BMP #### [facility] [address] [place] [id number] [place] Cholesterol in LDL Calc [Mas s/Vol]Ordered By: Tondra Odessa on 10-18-2022 Cholesterol in LDL [Mass/Vol] 60 mg/dL 0-100 [facility] Comment on above: LDL ATP III CLASSIFI CATIONLDL less than 100 mg/dL OptimalLDL 100-129 mg/dL Near or above optimalLDL 130-159 mg/dL Borderline highLDL 160-189 mg/dL HighLDL greater than 189 mg/dL Very high Cholesterol in VLDL Calc [Ma ss/Vol]Ordered By: Suzi Saxena on 10-18-2022 Cholesterol in VLDL [Mass/Vol] 9 mg/dL [facility] Comprehensive Metabolic Pane garry 10-18-2022 Albumin [Mass/Vol] 3.7 g/dL Normal 3.5-5.7 [facility] Comment on above: Order Comment: PT FA STED 12 HOURS 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;Hyperlipid Performed By: #### C ANA, BMP #### [facility] [address] [place] [address] [place] GFR/1.73 sq M.predicted MDRD (S/P/Bld) [Vol rate/Area] mL/min/{1.73_m2} Normal [facility] Comment on above: Order Comment: PT FA STED 12 HOURS 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;Hyperlipid Performed By: #### C BC, BMP #### [facility] [address] [place] [id number] [place] Creatinine [Mass/volume] in Serum or PlasmaOrdered By: Suzi Saxena on 10-18-2022 Creatinine [Mass/Vol] 0.95 mg/dL Normal 0.70-1.30 [facility] Comment on above: Order Comment: PT FA STED 12 HOURS 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;Hyperlipid Performed By: #### C BC, BMP #### [facility] [address] [place] [address] [place] Creatinine [Mass/volume] in UrineOrdered By: Suzi Saxena on 10-18-2022 Creatinine (U) [Mass/Vol] 86.0 mg/dL 14.0-26.0 [facility] Glucose [Mass/volume] in Ser um or PlasmaOrdered By: Suzi Saxena on 10-18-2022 Glucose [Mass/Vol] 94 mg/dL Normal 70-100 [facility] Comment on above: ADA recommended refe rence rangeRandom Glucose Reference Range is dependent on time and content of last meal. Glucose of more than 200 mg/dL in a nonstressed, ambulatory subject supports the diagnosis of Diabetes Mellitus. Order Comment: PT FA STED 12 HOURS 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;Hyperlipid Result Comment: [place] Glucose Reference Range is dependent on time and content of last meal. Glucose of more than 200 mg/dL in a nonstressed, ambulatory subject supports the diagnosis of Diabetes Mellitus. ADA recommended reference range Performed By: #### C BC, BMP #### [facility] [address] [place] [id number] [facility] Lipid Panelon 10-18-2022 LDL Cholesterol,Calculated 60 mg/dL Normal 0-100 [facility] Comment on above: Order Comment: PT FA STED 12 HOURS 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;Hyperlipid Result Comment: LDL ATP III CLASSIFICATION LDL less than 100 mg/dL Optimal LDL 100-129 mg/dL Near or above optimal LDL 130-159 mg/dL Borderline high LDL 160-189 mg/dL High LDL greater than 189 mg/dL Very high Performed By: #### C BC, BMP #### [facility] [address] [place] [id number] [facility] Triglyceride w/Reflex 46 mg/dL Normal 0-149 [facility] Comment on above: Order Comment: PT FA [...] (CDC) test method. Performed By: #### C BC, BMP #### [facility] [address] [place] [id number] [facility] VLDL CHOLESTEROL 9 mg/dL Normal [facility] Comment on above: Order Comment: PT FA STED 12 HOURS 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;Hyperlipid Performed By: #### C BC, BMP #### [facility] [address] MicroAlb Creat Ratio,Uon Creatinine, Urine (Random) 86.0 mg/dL High 14.0-26.0 [facility] Comment on above: Order Comment: PT TO RETURN SAMPLE TODAY-RMP Reason 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 Performed By: #### C ANA, BMP #### [facility] [address] Microalbumin/Creatinin e Ratio 15.0 mg/g Normal 0.0-30.0 [facility] Comment on above: Order Comment: PT TO RETURN SAMPLE TODAY-RMP Reason 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 Result Comment: 30-3 00 mg/g indicates an increased risk for diabetic nephropathy. Greater than 300 mg/g is consistent with clinical nephropathy. (Am. J. Kidney Disease 1995, 25:107) PERFORMED BY: [place] [address] PATHOLOGIST [employer] AALIYAH BENITEZ M.D. Performed By: #### C ANA, BMP #### [facility] [address] [place] [address] Microalbumin [Mass/volume] i n UrineOrdered By: Suzi Saxena on 10-18-2022 Albumin DL <= 20 mg/L (U) [Mass/Vol] 1.3 mg/dL Normal 0.0-1.8 [facility] Comment on above: Order Comment: PT TO RETURN SAMPLE TODAY-RMP Reason 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 Performed By: #### C ANA, BMP #### [facility] [address] [place] [address] No Panel InformationOrdered By: Suzi Saxena on 10-18-2022 Estimated GFR (CKD-EPI) > 60.0 mL/Min [facility] Creatinine Clearance (Chem N/A [facility] Potassium [Moles/volume] in Serum or PlasmaOrdered By: Suzi Saxena on 10-18-2022 Potassium [Moles/Vol] 4.5 mmol/L Normal 3.5-5.1 [facility] Comment on above: Order Comment: PT FA STED 12 HOURS 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;Hyperlipid Performed By: #### C BC, BMP #### [facility] [address] Protein [Mass/volume] in Ser um or PlasmaOrdered By: Alfadra Odessa on 10-18-2022 Protein [Mass/Vol] 6.0 g/dL Low 6.4-8.9 [facility] Comment on above: Order Comment: PT FA STED 12 HOURS 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;Hyperlipid Performed By: #### C BC, BMP #### [facility] [address] [place] [address] Serum globulin measurement b y calculation (mass/volume)Ordered By: Suzi Saxena on 10-18-2022 Globulin (S) [Mass/Vol] 2.3 g/dL [facility] Comment on above: Order Comment: PT FA STED 12 HOURS 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;Hyperlipid Performed By: #### C BC, BMP #### [facility] [address] [place] [address] Serum or plasma albumin/glob ulin mass ratioOrdered By: Jordana Odessa on 10-18-2022 Albumin/Globulin [Mass ratio] 1.6 {ratio} [facility] Comment on above: Order Comment: PT FA STED 12 HOURS 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;Hyperlipid Performed By: #### C BC, BMP #### [facility] [address] [place] [address] Serum or plasma anion gap de terminationOrdered By: Alfadra Odessa on 10-18-2022 Anion gap [Moles/Vol] 7.9 mmol/L Normal 6.0-15.0 [facility] Comment on above: Order Comment: PT FA STED 12 HOURS 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;Hyperlipid Performed By: #### C BC, BMP #### [facility] [address] [place] [address] Serum or plasma high density lipoprotein (HDL) cholesterol measurementOrdered By: Tondra Patriciaus on 10-18-2022 Cholesterol in HDL [Mass/Vol] 38 mg/dL Normal 23-92 [facility] Comment on above: HDL CHOL ATP-III CLA SSIFICATION Cardiovascular RiskHDL > or equal to 60 mg/dL LOWHDL < 40 mg/dL HIGH Order Comment: PT FA STED 12 HOURS 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;Hyperlipid Result Comment: HDL CHOL ATP-III CLASSIFICATION Cardiovascular Risk HDL > or equal to 60 mg/dL LOW HDL < 40 mg/dL HIGH Performed By: #### C BC, BMP #### [facility] [address] Serum or plasma total choles terol/high density lipoprotein (HDL) cholesterol mass ratOrdered By: Suzi Saxena on 10-18-2022 Cholesterol.total/Chol esterol in HDL [Mass ratio] 2.8 {ratio} Normal <5.0 [facility] Comment on above: Order Comment: PT FA STED 12 HOURS 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;Hyperlipid Result Comment: PERF ORMED BY: [place] [address] PATHOLOGIST [employer] AALIYAH BENITEZ M.D. Performed By: #### C BC, BMP #### [facility] [address] [place] [address] [place] Sodium [Moles/volume] in Ser um or PlasmaOrdered By: Suzi Saxena on 10-18-2022 Sodium [Moles/Vol] 138 mmol/L Normal 136-145 [facility] Comment on above: Order Comment: PT FA STED 12 HOURS 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;Hyperlipid Performed By: #### C BC, BMP #### [facility] [address] [place] [address] [place] Triglyceride [Mass/volume] i n Serum or PlasmaOrdered By: Tondra Odessa on 10-18-2022 Triglyceride [Mass/Vol] 46 mg/dL 0-149 [facility] Comment on above: TRIG ATP III CLASSIF ICATIONTRIG less than 150 mg/dL NormalTRIG 150-199 mg/dL Borderline highTRIG 200-500 mg/dL High TRIG greater than 500 mg/dL Very highStandard traceable to the Center for Disease Conrtrol and Prevention (CDC) test method. Urea nitrogen [Mass/volume] in Serum or PlasmaOrdered By: Suzi Saxena on 10-18-2022 Urea nitrogen [Mass/Vol] 20 mg/dL Normal 7-25 [facility] Comment on above: Order Comment: PT FA STED 12 HOURS 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;Hyperlipid Performed By: #### C BC, BMP #### [facility] [address] [place] [address] Urine microalbumin/creatinin e mass ratioOrdered By: Suzi Saxena on 10-18-2022 Albumin/Creatinine DL <= 20 mg/L (U) [Mass ratio] 15.0 mg/g 0.0-30.0 [facility] Comment on above: 30-300 mg/g indicate s an increased risk for diabetic nephropathy. Greater than 300 mg/g is consistent with clinical nephropathy. (Am. J. Kidney Disease 1995, 25:107) ECHOon 09-10-2022 [facility] Urinalysis - DIPSTICKon 07-12 Appearance (U) clear [employer] Other Bilirubin Ql (U) Negative [email or web address] Other Color (U) pale yellow [employer] Other Glucose Ql (U) Negative [employer] Other Hemoglobin Ql (U) Negative [employer] Other Ketones Ql (U) Negative [employer] Other Leukocyte esterase Test strip Ql (U) Negative [employer] Other Nitrite Ql (U) Negative [employer] Other pH (U) 5.0 [pH] [employer] Other Protein Ql (U) Negative [employer] Other Specific gravity (U) [Rel density] 1.005 [employer] Other Urobilinogen (U) [Mass/Vol] Negative [employer] Other Urinalysis - DIPSTICK Nor [employer] Other A1C HEMOGLOBINon 07-13-2022 HbA1c (Bld) [Mass fraction] 6.1 % [employer] Other Glucose - FINGER STICKon Glucose [Mass/Vol] 132 mg/dL [employer] Other HbA1c (Bld) [Mass fraction]o n 07-13-2022 A1C HEMOGLOBIN [employer] Other A1C HEMOGLOBINon 04-06-2022 HbA1c (Bld) [Mass fraction] 6.1 % [employer] Other Glucose - FINGER STICKon Glucose [Mass/Vol] 119 mg/dL [employer] Other HbA1c (Bld) [Mass fraction]o n 04-06-2022 A1C HEMOGLOBIN [employer] Other A1C HEMOGLOBINon 12-28-2021 HbA1c (Bld) [Mass fraction] 6.8 % [employer] Other Glucose - FINGER STICKon Glucose [Mass/Vol] 188 mg/dL [employer] Other HbA1c (Bld) [Mass fraction]o n 12-28-2021 A1C HEMOGLOBIN [employer] Other Body fluid albumin measureme nt (mass/volume)Ordered By: Suzi Saxena on 12-24-2021 Albumin (Body fld) [Mass/Vol] 3.1 g/dL 3.2-5.5 [facility] Cholesterol [Mass/volume] in Serum or PlasmaOrdered By: Suzi Saxena on 12-24-2021 Cholesterol [Mass/Vol] 103 mg/dL 140-200 [facility] Comment on above: Chol less than 200 m g/dl low riskChol 201-239 mg/dl borderline riskChol 240 mg/dl and greater high risk Cholesterol in LDL Calc [Mas s/Vol]Ordered By: Suzi Saxena on 12-24-2021 Cholesterol in LDL [Mass/Vol] 60 mg/dL 0-100 [facility] Comment on above: LDL ATP III CLASSIFI CATIONLDL less than 100 mg/dL OptimalLDL 100-129 mg/dL Near or above optimalLDL 130-159 mg/dL Borderline highLDL 160-189 mg/dL HighLDL greater than 189 mg/dL Very high Cholesterol in VLDL Calc [Ma ss/Vol]Ordered By: Suzi Saxena on 12-24-2021 Cholesterol in VLDL [Mass/Vol] 8 mg/dL [facility] Creatinine [Mass/volume] in UrineOrdered By: Suzi Saxena on 12-24-2021 Creatinine (U) [Mass/Vol] 124.4 mg/dL [facility] Comment on above: No reference range e stablished Creatinine and Glomerular fi ltration rate.predicted panel (S/P/Bld)Ordered By: Suzi Saxena on 12-24-2021 Creatinine [Mass/Vol] 1.28 mg/dL 0.64-1.27 [facility] Estimated glomerular filtrat ion rate (GFR) non- AmericanOrdered By: Suzi Saxena on 12-24-2021 GFR/1.73 sq M.predicted among non-blacks MDRD (S/P/Bld) [Vol rate/Area] 56 mL/Min [facility] Globulin Calc (S) [Mass/Vol] Ordered By: Suzi Saxena on 12-24-2021 Globulin (S) [Mass/Vol] 2.8 g/dL [facility] No Panel InformationOrdered By: Suzi Saxena on 12-24-2021 Estimated GFR () > 60 mL/Min [facility] Comment on above: GFR estimated refere nce range: According to KDOQI guidelines, <60 ml/min/1.73m2 is sufficient to diagnose a patient with chronic kidney disease. Pharmacy Creatinine Clearance (Chem N/A [facility] Protein [Mass/volume] in Ser um or PlasmaOrdered By: Suzi Saxena on 12-24-2021 Protein [Mass/Vol] 5.9 g/dL 6.1-7.9 [facility] Serum or plasma alanine klein otransferase measurement without P-5'-P (enzymatic activiOrdered By: Suzi Saxena on 12-24-2021 ALT No additional P-5'-P [Catalytic activity/Vol] 14 U/L 10-60 [facility] Serum or plasma albumin/glob ulin mass ratioOrdered By: Suzi Saxena on 12-24-2021 Albumin/Globulin [Mass ratio] 1.1 {ratio} [facility] Serum or plasma alkaline fredi sphatase measurement (enzymatic activity/volume)Ordered By: Suzi Saxena on 12-24-2021 ALP [Catalytic activity/Vol] 52 U/L 32-92 [facility] Serum or plasma anion gap de terminationOrdered By: Suzi Saxena on 12-24-2021 Anion gap [Moles/Vol] 13.0 mmol/L 6.0-15.0 [facility] Serum or plasma aspartate am inotransferase measurement (enzymatic activity/volume)Ordered By: Suzi Saxena on 12-24-2021 AST [Catalytic activity/Vol] 19 U/L 10-42 [facility] Serum or plasma calcium jonathan urement (mass/volume)Ordered By: Suzi Saxena on 12-24-2021 Calcium [Mass/Vol] 8.8 mg/dL 8.2-10.2 [facility] Serum or plasma chloride eric surement (moles/volume)Ordered By: Suzi Saxena on 12-24-2021 Chloride [Moles/Vol] 99 mmol/L 95-114 [facility] Serum or plasma glucose jonathan urement (mass/volume)Ordered By: Suzi Saxena on 12-24-2021 Glucose [Mass/Vol] 140 mg/dL 70-100 [facility] Comment on above: ADA recommended refe rence rangeRandom Glucose Reference Range is dependent on time and content of last meal. Glucose of more than 200 mg/dL in a nonstressed, ambulatory subject supports the diagnosis of Diabetes Mellitus. Serum or plasma high density lipoprotein (HDL) cholesterol measurementOrdered By: Suzi Saxena on 12-24-2021 Cholesterol in HDL [Mass/Vol] 35 mg/dL 29-71 [facility] Comment on above: HDL CHOL ATP-III CLA SSIFICATION Cardiovascular RiskHDL > or equal to 60 mg/dL LOWHDL < 40 mg/dL HIGH Serum or plasma potassium me asurement (moles/volume)Ordered By: Suzi Saxena on 12-24-2021 Potassium [Moles/Vol] 4.5 mmol/L 3.5-5.1 [facility] Serum or plasma sodium measu rement (moles/volume)Ordered By: Suzi Saxena on 12-24-2021 Sodium [Moles/Vol] 134 mmol/L 136-146 [facility] Serum or plasma total biliru bin measurement (mass/volume)Ordered By: Suzi Saxena on 12-24-2021 Bilirubin [Mass/Vol] 1.3 mg/dL 0.3-1.2 [facility] Comment on above: Samples from patient s who have taken Naproxen have shown spurious elevation in Total Bilirubin levels. A metabolite of Naproxen, O-desmethylnaproxen, has been shown to interfere with the Bayron-Jacinto method for measuring Total Bilirubin. Serum or plasma total carbon dioxide measurement (moles/volume)Ordered By: Suzi Saxena on 12-24-2021 CO2 [Moles/Vol] 26.5 mmol/L 22.0-30.0 [facility] Serum or plasma total choles terol/high density lipoprotein (HDL) cholesterol mass ratOrdered By: Suzi Saxena on 12-24-2021 Cholesterol.total/Chol esterol in HDL [Mass ratio] 2.9 {ratio} <5.0 [facility] Serum or plasma urea nitroge n measurement (mass/volume)Ordered By: Suzi Saxena on 12-24-2021 Urea nitrogen [Mass/Vol] 29 mg/dL 9-23 [facility] Triglyceride [Mass/volume] i n Serum or PlasmaOrdered By: Suzi Saxena on 12-24-2021 Triglyceride [Mass/Vol] 42 mg/dL 35-149 [facility] Comment on above: TRIG ATP III CLASSIF [...] 20 mg/L (U) [Mass/Vol] 0.6 mg/dL 0.0-1.8 [facility] Urine microalbumin/creatinin e mass ratioOrdered By: Suzi Saxena on 12-24-2021 Albumin/Creatinine DL <= 20 mg/L (U) [Mass ratio] 4.0 mg/g 0.0-30.0 [facility] Comment on above: 30-300 mg/g indicate s an increased risk for diabetic nephropathy. Greater than 300 mg/g is consistent with clinical nephropathy. (Am. J. Kidney Disease 1995, 25:107) No Panel InformationOrdered By: Selin Leon on 11-04-2021 Prostate Specific Antigen Total 0.050 ng/mL 0.000-4.000 [facility] A1C HEMOGLOBINon 05-21-2021 HbA1c (Bld) [Mass fraction] 6.2 % [employer] Other Glucose - FINGER STICKon Glucose [Mass/Vol] 93 mg/dL [employer] Other HbA1c (Bld) [Mass fraction]o n 05-21-2021 A1C HEMOGLOBIN [facility] [employer] Other XR Spine Cervical Complete*o n 04-19-2021 [...] by Xiang Mukherjee on 04/19/2021 1255 Normal [facility] Call Center Operations Manager XR Spine Lumbar 4+ Views*on 04-19-2021 XR [...] by Xiang Mukherjee on 04/19/2021 1254 Normal [facility] Call Center Operations Manager Creatinine [Mass/volume] in Urineon 12-17-2019 Creatinine (U) [Mass/Vol] 51.1 mg/dL [facility] Comment on above: No reference range e stablished Urine microalbumin measureme nt with detection limit of 20 mg/L or less (mass/volume)on 12-17-2019 Albumin DL <= 20 mg/L (U) [Mass/Vol] 0.2 mg/dL 0.0-1.8 [facility] Urine microalbumin/creatinin e mass ratioon 12-17-2019 Albumin/Creatinine DL <= 20 mg/L (U) [Mass ratio] 3.0 mg/g 0.0-30.0 [facility] Comment on above: 30-300 mg/g indicate s an increased risk for diabetic nephropathy. Greater than 300 mg/g is consistent with clinical nephropathy. (Am. J. Kidney Disease 1995, 25:107) Rapid HIV.on 04-13-2019 HIV. Negative Normal Negative [facility] Comment on above: Result Comment: Resu lts [place] [facility] [place]on And Read Back For Confirmation On 04/13/2019 14:18:54 EST. Performed By: #### 1 [id number] #### [facility] (DEFAULT) [address] [place] [address] Internal Control Pass Normal [facility] Comment on above: Performed By: #### 1 [id number] #### [facility] (DEFAULT) [address] [place] [address] C Urineon 04-05-2019 C Urine Urine Culture ordere d as a result of parameters set on specific urine dip and urine microsopic results. 60,000 cfu/ml Pseudomonas aeruginosa ORGANISM PA -- SUSCEPTIBILITY - ORGANISM ID: 1 ANTIBIOTIC INTERPRETATION JOEY STATUS [...] S <=4 Verified Tri/Sulf >2/38 Verified Normal [facility] Comment on above: Performed By: #### 1 [id number] #### [facility] (DEFAULT) [address] [place] [address] Progress Note - Nurseon 03-15 Progress Note - Nurse Call patient about needing to change antibiotic, [facility] advised [facility] [address] [facility] [place]. [facility] C[facility] 500mg BID for 7 days by Junior OJEDA [Electronically Signed on: 04/05/2019 10:43 EST] Kayy Gomez [Verified on: 04/05/2019 10:43 EST] Kayy Gomez [facility] Coding Summaryon 04-04-2019 Coding Summary CODING DATE: 020 [facility] STATUS: Home PAYOR: Medicare ADMIT DX: [...] Jackie Wells Date Saved: 04/04/2019 10:17 am [facility] ED Clinical Summaryon 2019 ED Clinical Summary [facility] ? Urgent Care [address] [place] [address] Clinical Summary PERSON INFORMATION Name: ELLIS BRAXTON Age: 63 Years Sex: MALE : 1955 MRN: Acct#: Visit Reason: Urinary frequency; UC - Sinus Pain or Congestion; PAINFUL URINATION, SINUS PAIN/COGNESTION Arrival: 04/03/2019 10:30:00 Discharge: 04/03/2019 11:55:00 LOS: 000 01:25 Check In: 04/03/2019 10:30:00 Checkout: 04/03/2019 11:55:00 Address: [address] [place] [address] [place] [address] PCP: Epifanio Mcgowan PROVIDER INFORMATION Provider Role Assigned Unassigned Nicole RN, Bishnu ED Nurse 04/03/2019 10:31:21 Amee Tirado PA-C ED PA 04/03/2019 10:33:37 VITALS INFORMATION Vital Sign Triage Latest Temperature Tympanic Temperature Temporal Artery Pulse Rate O2 Sat 98 % 98 % Respiratory Rate Blood Pressure /88 mmHg /88 mmHg MEDICAL INFORMATION Medications Given: Allergy Information: IVP dye PHYSICIAN DOCUMENTATION DISCHARGE INFORMATION: Discharge Disposition: Home Discharge Location: Home PATIENT EDUCATION INFORMATION Instructions: Sinusitis, Adult, Xudj-da-Rear; Urine Culture and Sensitivity Testing; Urinary Tract Infection, Adult, Qfnz-qn-Nzgw Follow-Up: With: Address: When: Epifanio Mcgowan [address] [place], [place] [id number] Business (1) Within 2 to 4 days [...] 2:Urinary tract infection Patient Understands: Yes - Patient/family/caregive r verbalizes understanding of instructions given Comment: Normal [facility] ED Patient Summaryon 020 ED Patient Summary [facility] ? Urgent Care [address] [place] [address] PATIENT DISCHARGE INSTRUCTIONS Patient Information Name: ELLIS BRAXTON Age: 63 Years Date of : 1955 Reason For Visit: Urinary frequency; UC - Sinus Pain or Congestion; PAINFUL URINATION, SINUS PAIN/COGNESTION Arrival Time: 04/03/2019 10:30:00 Primary Care Physician: Epifanio Mcgowan Attending Physician: Amee Tirado PA-C Comment: Patient Education With: Address: When: Epifanio Mcgowan [facility] [place] [address] [facility] (1) Within 2 to 4 days Comments: [...] home: Medicines ? Take, use, or apply kbwr-tdq-ohjhwhc and prescription medicines only as told by [...] is no soap and water, use hand operations specialists. ? Do not smoke. Avoid being around [...] 08/16/2008 Document Revised: 09/09/2017 Document Reviewed: 12/24/2015 [employer] Patient Education ? 2019 [employer]. Urine Culture and Sensitivity Testing Why am [...] 03/25/2005 Document Revised: 11/10/2017 Document Reviewed: 11/10/2017 [employer] Interactive Patient Education ? 2019 [employer]. Urinary Tract Infection, Adult A urinary tract infection (UTI) is an infection of any part of the urinary tract. The urinary tract includes the: ? Kidneys. ? Ureters. ? Bladder. ? Urethra. These organs make, store, and get rid of pee (urine) in the body. Follow these instructions at home: ? Take polz-fpd-ynepkqz and prescription medicines only as told by [...] 08/16/2008 Document Revised: 08/23/2017 Document Reviewed: 01/19/2016 [employer] Interactive Patient Education ? 2019 [employer] Medication Information: The exam and treatment you received today in the [facility] Department were for an urgent problem and are not intended as complete care. It is important for you to follow up with a doctor, nurse practitioner, or physician?s assistant front desk manager for ongoing care. If your symptoms become [...] so we can reach you if necessary. [facility] Emergency Department has provided you with a complete list of medications post discharge. Please inform your skeins yarn examiner/provider of your visit and for further instruction on these medications. Any specific questions regarding your chronic medications and dosages should be discussed with your primary care physician(s) and/or pharmacist. New Medications [facility]/pharmacy #[id number], [address] [place], [place] [id number], [phone] nitrofurantoin (Macrobid 100 mg oral capsule) 1 [...] Visit UC - Sinus Pain or Congestion ([id number]) Urinary frequency ([id number]) Urinary tract infection (N39.0) Viral sinusitis (J32.9) [...] EST, Stat collect, Stop date 04/03/19 10:56:00 HOLLEY, Nurse mya, [id number] Radiology Cardiology Viruses or Bacteria What?s got [...] for Disease Control and Prevention November 2013 [facility] Patient Handouton 04-03-2019 Patient Handout Patient [...] home: Medicines ? Take, use, or apply gwfl-zsy-ddgtzdt and prescription medicines only as told by [...] is no soap and water, use hand operations specialists. ? Do not smoke. Avoid being around [...] 08/16/2008 Document Revised: 09/09/2017 Document Reviewed: 12/24/2015 [employer] Interactive Patient Education ? 2019 [employer] Urine Culture and Sensitivity Testing Why am [...] 03/25/2005 Document Revised: 11/10/2017 Document Reviewed: 11/10/2017 [employer] Interactive Patient Education ? 2019 [employer]. Obstetrics and Gynecology Urinary Tract Infection, Adult A urinary tract infection (UTI) is an infection of any part of the urinary tract. The urinary tract includes the: ? Kidneys. ? Ureters. ? Bladder. ? Urethra. These organs make, store, and get rid of pee (urine) in the body. Follow these instructions at home: ? Take ppvd-ihe-frhtyab and prescription medicines only as told by [...] 08/16/2008 Document Revised: 08/23/2017 Document Reviewed: 01/19/2016 [employer] Interactive Patient Education ? 2019 [employer]. [facility] UA [id number] 04-03-2019 RBC (U) [#/Vol] 5-10 [facility] Comment on above: Order Comment: Urina lysis Microscopic order added on by [employer] Expert Rules system. Performed By: #### 1 [id number], [id number], [id number] #### [facility] (DEFAULT) [address] [place] [address] UA Amorph. 1+ [facility] Comment on above: Order Comment: Urina lysis Microscopic order added on by [employer] Rules system. Performed By: #### 1 [id number], [id number], [id number] #### [facility] (DEFAULT) [address] [place] [address] UA Bacteria Trace [facility] Comment on above: Order Comment: Urina lysis Microscopic order added on by [employer] Rules system. Performed By: #### 1 [id number], [id number], [id number] #### [facility] (DEFAULT) [address] [place] [address] UA Squam Epi Rare [facility] Comment on above: Order Comment: Urina lysis Microscopic order added on by [employer] Rules system. Performed By: #### 1 [id number], [id number], [id number] #### [facility] (DEFAULT) [address] [place] [address] UA WBC >100 [facility] Comment on above: Order Comment: Urina lysis Microscopic order added on by [employer] Rules system. Performed By: #### 1 [id number], [id number], [id number] #### [facility] (DEFAULT) [address] [place] [address] UA w Culture if Ind Standard on 04-03-2019 Breakpoint UA Normal [facility] Comment on above: Performed By: #### 1 [id number], [id number], [id number] #### [facility] (DEFAULT) [address] [place] [address] Color (U) Yellow Normal [facility] Comment on above: Performed By: #### 1 [id number], [id number], [id number] #### [facility] (DEFAULT) [address] [place] [address] Culture? Yes Normal [facility] Comment on above: Performed By: #### 1 [id number], [id number], [id number] #### [facility] (DEFAULT) [address] [place] [address]31 Glucose (U) [Mass/Vol] Negative Normal [facility] Comment on above: Performed By: #### 1 [id number], [id number], [id number] #### [facility] (DEFAULT) [address] [place] [address]51 Ketones Ql (U) Negative Normal [facility] Comment on above: Performed By: #### 1 [id number], [id number], [id number] #### [facility] (DEFAULT) [address] [place] [address] Micro? Indicated [facility] Comment on above: Performed By: #### 1 [id number], [id number], [id number] #### [facility] (DEFAULT) [address] [place] [address] UA Bilirubin Negative Normal [facility] Comment on above: Performed By: #### 1 [id number], [id number], [id number] #### [facility] (DEFAULT) [address] [place] [address] UA Blood MODERATE Abnormal NEGATIVE [facility] Comment on above: Performed By: #### 1 [id number], [id number], [id number] #### [facility] (DEFAULT) [address] [place] [address] UA Clarity CLEAR Normal CLEAR [facility] Comment on above: Performed By: #### 1 [id number], [id number], [id number] #### [facility] (DEFAULT) [address] [place] [address] UA Leuk Est LARGE Abnormal NEGATIVE [facility] Comment on above: Performed By: #### 1 [id number], [id number], [id number] #### [facility] (DEFAULT) [address] [place] [address] UA Nitrite Negative Normal NEGATIVE [facility] Comment on above: Performed By: #### 1 [id number], [id number], [id number] #### [facility] (DEFAULT) [address] [place] [address] UA pH 6.0 Normal 5-8 [facility] Comment on above: Performed By: #### 1 [id number], [id number], [id number] #### [facility] (DEFAULT) [address] [place] [address] UA Protein 30 mg/dL Abnormal NEGATIVE [facility] Comment on above: Performed By: #### 1 [id number], [id number], [id number] #### [facility] (DEFAULT) [address] [place] [address] UA Spec Grav 1.020 Normal 1.001-1.035 [facility] Comment on above: Performed By: #### 1 [id number], [id number], [id number] #### [facility] (DEFAULT) [address] [place] [address] UA Urobilinogen 0.2 mg/dL Normal 0.2-1.0 [facility] Comment on above: Performed By: #### 1 [id number], [id number], [id number] #### [facility] (DEFAULT) [address] [place] [address] Urine Source Clean Catch Normal [facility] Comment on above: Performed By: #### 1 [id number], [id number], [id number] #### [facility] (DEFAULT) [address] [place] [address] Urgent Care Note- Provideron 04-03-2019 Urgent Care [...] . Impression and Plan Diagnosis Viral sinusitis (XLL10-VO J32.9, Discharge, Medical) Complaint of UC - Sinus Pain or Congestion (PNED [id number], Reason For Visit, Medical) Complaint of Urinary frequency (PNED [id number], Reason For Visit, Medical) Viral sinusitis (XQW47-QX J32.9, Discharge, Medical) Urinary tract infection (KHW39-NF N39.0, Discharge, Medical) Plan Condition: Stable. Disposition: Discharged: Time 04/03/2019 11:50:00, to home. Prescriptions: Launch prescriptions Pharmacy: Macrobid 100 mg oral capsule (Prescribe): 100 mg = 1 cap(s), PO, BID, for 5 day(s), 10 cap(s), 0 Refill(s). Patient was given the following educational materials: Urinary Tract Infection, Adult, Imjq-gq-Pyax, Urine Culture and Sensitivity Testing, Sinusitis, Adult, Gvzs-wc-Wymr, Sinusitis, Adult, Tmle-pz-Mfzl, Urine Culture and Sensitivity Testing, Urinary Tract Infection, Adult, Haai-su-Tfni. Follow up with: Epifanio Mcgowan Within 2 to 4 days IF DEVELOP [...] prescription, Patient indicated understanding of instructions. Normal [facility] Urgent Care Recordon 020 Urgent Care Record [facility] ? Urgent Care [address] [place] [address] PATIENT DISCHARGE INSTRUCTIONS Patient Information Name: ELLIS BRAXTON Age: 63 Years Date of : 1955 Reason For Visit: Urinary frequency; UC - Sinus Pain or Congestion; PAINFUL URINATION, SINUS PAIN/COGNESTION Arrival Time: 04/03/2019 10:30:00 Primary Care Physician: Epifanio Mcgowan Attending Physician: Amee Tirado PA-C Comment: Visit Diagnosis: Diagnoses This Visit UC - Sinus Pain or Congestion ([id number]) Urinary frequency ([id number]) Urinary tract infection (N39.0) Viral sinusitis (J32.9) [...] any legal documents With: Address: When: Epifanio Mcgowan [address] [place] [address] Business (1) Within 2 to 4 days [...] and treatment you received today in the [facility] Care were for an urgent problem and are not intended as complete care. It is important for you to follow up with a doctor, nurse practitioner, or physician?s assistant front desk manager for ongoing care. If your symptoms become [...] so we can reach you if necessary. [facility] Urgent [facility] has provided you with a complete list of medications post discharge. Please inform your skeins yarn examiner/provider of your visit and for further instruction on these medications. Any specific questions regarding your chronic medications and dosages should be discussed with your primary care physician(s) and/or pharmacist. New Medications [facility]/pharmacy #[id number], [address], [place] [id number], [phone] nitrofurantoin (Macrobid 100 mg oral capsule) 1 [...] home: Medicines ? Take, use, or apply umvo-nfe-dgeiaob and prescription medicines only as told by [...] is no soap and water, use hand operations specialists. ? Do not smoke. Avoid being around [...] 08/16/2008 Document Revised: 09/09/2017 Document Reviewed: 12/24/2015 [employer] Interactive Patient Education ? 2019 [employer] Urine Culture and Sensitivity Testing Why am [...] 03/25/2005 Document Revised: 11/10/2017 Document Reviewed: 11/10/2017 [employer] Interactive Patient Education ? 2019 [employer]. Urinary Tract Infection, Adult A urinary tract infection (UTI) is an infection of any part of the urinary tract. The urinary tract includes the: ? Kidneys. ? Ureters. ? Bladder. ? Urethra. These organs make, store, and get rid of pee (urine) in the body. Follow these instructions at home: ? Take zmtv-abi-xjrnfat and prescription medicines only as told by [...] 08/16/2008 Document Revised: 08/23/2017 Document Reviewed: 01/19/2016 [employer] Interactive Patient Education ? 2019 [employer] Viruses or Bacteria What?s got you [...] for Disease Control and Prevention November 2013 Normal [facility] Body fluid albumin measureme nt (mass/volume)on 04-03-2018 Albumin (Body fld) [Mass/Vol] 3.8 g/dL 3.2-5.5 [facility] Cholesterol [Mass/volume] in Serum or Plasmaon 04-03-2018 Cholesterol [Mass/Vol] 107 mg/dL 140-200 [facility] Comment on above: Chol less than 200 m g/dl low risk Chol 201-239 mg/dl borderline risk Chol 240 mg/dl and greater high risk Chol less than 200 m g/dl low riskChol 201-239 mg/dl borderline riskChol 240 mg/dl and greater high risk Cholesterol in LDL Calc [Mas s/Vol]on 04-03-2018 Cholesterol in LDL [Mass/Vol] 55 mg/dL 0-100 [facility] Comment on above: LDL ATP III CLASSIFI CATION LDL less than 100 mg/dL Optimal LDL 100-129 mg/dL Near or above optimal LDL 130-159 mg/dL Borderline high LDL 160-189 mg/dL High LDL greater than 189 mg/dL Very high LDL ATP III CLASSIFI CATIONLDL less than 100 mg/dL OptimalLDL 100-129 mg/dL Near or above optimalLDL 130-159 mg/dL Borderline highLDL 160-189 mg/dL HighLDL greater than 189 mg/dL Very high Cholesterol in VLDL Calc [Ma ss/Vol]on 04-03-2018 Cholesterol in VLDL [Mass/Vol] 6 mg/dL [facility] Creatinine and Glomerular fi ltration rate.predicted panel (S/P/Bld)on 04-03-2018 Creatinine [Mass/Vol] 0.83 mg/dL 0.64-1.27 [facility] Estimated glomerular filtrat ion rate (GFR) non- Americanon 04-03-2018 GFR/1.73 sq M.predicted among non-blacks MDRD (S/P/Bld) [Vol rate/Area] mL/min/{1.73_m2} [facility] Laboratory - Chemistry and C hemistry - challengeon 04-03-2018 Cholesterol.total/Chol esterol in HDL [Mass ratio] 2.3 {ratio} <5.0 [facility] GFR/1.73 sq M.predicted among blacks MDRD (S/P/Bld) [Vol rate/Area] mL/min/{1.73_m2} [facility] Comment on above: GFR estimated refere nce range: According to KDOQI guidelines, <60 ml/min/1.73m2 is sufficient to diagnose a patient with chronic kidney disease. No Panel Informationon 04-03 Pharmacy Creatinine Clearance (Chem N/A [facility] Phosphate [Mass/volume] in S curly or Plasmaon 04-03-2018 Phosphate [Mass/Vol] 3.6 mg/dL 2.5-4.6 [facility] Serum or plasma calcidiol me asurement (mass/volume)on 04-03-2018 25-hydroxyvitamin D3 [Mass/Vol] 31.8 ng/mL 30-100 [facility] Comment on above: VITAMIN D STATUS 25( [place])VITAMIN D RANGE (ng/mL) Deficient <20 Insufficient 20 to <30 Sufficient 30 to 100 Reference: Annalisa MF,Seamus ROD, Ana CHEUNG, et al. Evaluation,treatment, and prevention of vitamin D deficiency; an Endocrine Society clinical practice guideline. JCEM. 2010; 96(7):1911-30. VITAMIN D STATUS 25( [place])VITAMIN D RANGE (ng/mL) Deficient <20 Insufficient 20 to <30Sufficient 30 to 100Reference: Annalisa MF,Seamus NC, Ana CHEUNG, et al. Evaluation,treatment, and prevention of vitamin D deficiency; an Endocrine Society clinical practice guideline. JCEM. 2010; 96(7):1911-30. Serum or plasma calcium jonathan urement (mass/volume)on 04-03-2018 Calcium [Mass/Vol] 8.9 mg/dL 8.2-10.2 [facility] Serum or plasma chloride eric surement (moles/volume)on 04-03-2018 Chloride [Moles/Vol] 102 mmol/L 95-114 [facility] Serum or plasma glucose jonathan urement (mass/volume)on 04-03-2018 Glucose [Mass/Vol] 80 mg/dL 70-100 [facility] Comment on above: ADA recommended refe rence range Random Glucose Reference Range is dependent on time and content of last meal. Glucose of more than 200 mg/dL in a nonstressed, ambulatory subject supports the diagnosis of Diabetes Mellitus. ADA recommended refe rence rangeRandom Glucose Reference Range is dependent on time and content of last meal. Glucose of more than 200 mg/dL in a nonstressed, ambulatory subject supports the diagnosis of Diabetes Mellitus. Serum or plasma high density lipoprotein (HDL) cholesterol measurementon 04-03-2018 Cholesterol in HDL [Mass/Vol] 46 mg/dL 29-71 [facility] Comment on above: HDL CHOL ATP-III CLA SSIFICATION Cardiovascular Risk HDL > or equal to 60 mg/dL LOW HDL < 40 mg/dL HIGH HDL CHOL ATP-III CLA SSIFICATION Cardiovascular RiskHDL > or equal to 60 mg/dL LOWHDL < 40 mg/dL HIGH Serum or plasma potassium me asurement (moles/volume)on 04-03-2018 Potassium [Moles/Vol] 4.4 mmol/L 3.5-5.1 [facility] Serum or plasma sodium measu rement (moles/volume)on 04-03-2018 Sodium [Moles/Vol] 139 mmol/L 136-146 [facility] Serum or plasma total carbon dioxide measurement (moles/volume)on 04-03-2018 CO2 [Moles/Vol] 28.5 mmol/L 22.0-30.0 [facility] Serum or plasma urea nitroge n measurement (mass/volume)on 04-03-2018 Urea nitrogen [Mass/Vol] 16 mg/dL 9-23 [facility] Triglyceride [Mass/volume] i n Serum or Plasmaon 04-03-2018 Triglyceride [Mass/Vol] 32 mg/dL 35-149 [facility] Comment on above: TRIG ATP III CLASSIF ICATION TRIG less than 150 mg/dL Normal TRIG 150-199 mg/dL Borderline high TRIG 200-500 mg/dL High TRIG greater than 500 mg/dL Very high Standard traceable to the Center for Disease Conrtrol and Prevention (CDC) test method. TRIG ATP III CLASSIF ICATIONTRIG less than 150 mg/dL NormalTRIG 150-199 mg/dL Borderline highTRIG 200-500 mg/dL High TRIG greater than 500 mg/dL Very highStandard traceable to the Center for Disease Conrtrol and Prevention (CDC) test method. Vital Signs Date Time Vital Sign Value Performing Clinician Facility 11-02-2023 11:040 Body height 185.42 cm DO Epifanio Ball Work Phone: [facility] 11-02-2023 11:040 Body mass index (BMI) [Ratio] 34.2 kg/m2 DO Epifanio Ball Work Phone: [facility] 11-02-2023 11:19040 Body weight 117.93 kg DO Epifanio Ball Work Phone: [facility] 11-02-2023 11:19040 Diastolic blood pressure 61 mm[Hg] DO Epifanio Ball Work Phone: [facility] 11-02-2023 11:19-040 Heart rate 71 /min DO Epifanio Ball Work Phone: [facility] 11-02-2023 11:19040 Respiratory rate 12 /min DO Epifanio Ball Work Phone: [facility] 11-02-2023 11:19-040 Systolic blood pressure 96 mm[Hg] DO Epifanio Ball Work Phone: [facility] 10-12-2023 11:23-0400 Body height 185.42 cm DO Epifanio Ball Work Phone: [facility] 10-12-2023 11:23-0400 Body mass index (BMI) [Ratio] 31.8 kg/m2 DO Epifanio Ball Work Phone: [facility] 10-12-2023 11:23-0400 Body weight 109.54 kg DO Epifanio Ball Work Phone: [facility] 10-12-2023 11:23-0400 Diastolic blood pressure 59 mm[Hg] DO Epifanio Ball Work Phone: [facility] 10-12-2023 11:23-0400 Heart rate 73 /min DO Epifanio Ball Work Phone: [facility] 10-12-2023 11:23-0400 Respiratory rate 12 /min DO Epifanio Ball Work Phone: [facility] 10-12-2023 11:23-0400 Systolic blood pressure 97 mm[Hg] DO Epifanio Ball Work Phone: [facility] 09-22-2023 15:40-0400 SaO2% (BldA) [Mass fraction] 98 % EPIFANIO MCGOWAN [facility] Comment on above: Order Comment: Specimen Type: ARTERIAL B LOOD SPECIMENOrdering Facility: [facility] Address: [address] [place] [address] Performed By: #### A LLBG ####[facility] LABCLIA [id number] [address] [place] 09-22-2023 11:10-0400 SaO2% (BldA) [Mass fraction] 100 % EPIFANIO MCGOWAN [facility] Comment on above: Order Comment: Specimen Type: ARTERIAL B LOOD SPECIMENOrdering Facility: [facility] Address: [address] [place] [address] Performed By: #### A LLBG ####[facility] LABCLIA [id number] [address] [address] [place] 09-22-2023 07:17-0400 SaO2% (BldA) [Mass fraction] 100 % EPIFANIO MCGOWAN [facility] Comment on above: Order Comment: Specimen Type: ARTERIAL B LOOD SPECIMENOrdering Facility: [facility] Address: [address] [place], [place] [id number] Performed By: #### A LLBG ####[facility] LABCLIA [id number] [place] [id number] [place] 09-22-2023 06:41-0400 SaO2% (BldA) [Mass fraction] 99 % EPIFANIO MCGOWAN [facility] Comment on above: Order Comment: Specimen Type: ARTERIAL B LOOD SPECIMENOrdering Facility: [facility] Address: [address] [place], [place] [id number] Performed By: #### A LLBG ####[facility] LABCLIA [id number] [place] [id number] [place] 09-22-2023 04:28-0400 SaO2% (BldA) [Mass fraction] 100 % EPIFANIO MCGOWAN [facility] Comment on above: Order Comment: Specimen Type: ARTERIAL B LOOD SPECIMENOrdering Facility: [facility] Address: [address] [place], [place] [id number] Performed By: #### A LLBG ####[facility] LABCLIA [id number] [address] [address] [place] 09-22-2023 02:34-0400 SaO2% (BldA) [Mass fraction] 99 % EPIFANIO MCGOWAN [facility] Comment on above: Order Comment: Specimen Type: ARTERIAL B LOOD SPECIMENOrdering Facility: [facility] Address: [address] [place] [address] Performed By: #### A LLBG ####[facility] LABCLIA [id number] [address] [address] [place] 09-22-2023 00:15-0400 SaO2% (BldA) [Mass fraction] 96 % EPIFANIO MCGOWAN [facility] Comment on above: Order Comment: Specimen Type: ARTERIAL B LOOD SPECIMENOrdering Facility: [facility] Address: [address] [place], [place] [id number] Performed By: #### A LLBG ####[facility] LABCLIA [id number] [place] [id number] [place] [facility] 09-21-2023 19:57-0400 SaO2% (BldA) [Mass fraction] 99 % EPIFANIO MCGOWAN [facility] Comment on above: Order Comment: Specimen Type: ARTERIAL B LOOD SPECIMENOrdering Facility: [facility] Address: [address] [place] [address] Performed By: #### A LLBG ####[facility] LABCLIA [id number] [place] [id number] [facility] [place] 09-21-2023 17:29-0400 SaO2% (BldA) [Mass fraction] 98 % EPIFANIO MCGOWAN [facility] Comment on above: Order Comment: Specimen Type: ARTERIAL B LOOD SPECIMENOrdering Facility: [facility] Address: [address] [place] [address] Performed By: #### A LLBG ####[facility] LABIA [id number] [place] [id number] [place] 09-21-2023 15:24-0400 SaO2% (BldA) [Mass fraction] 98 % EPIFANIO MCGOWAN [facility] Comment on above: Order Comment: Specimen Type: ARTERIAL B LOOD SPECIMENOrdering Facility: [facility] Address: [address] [place] [address] Performed By: #### A LLBG ####[facility] LABCLIA [id number] [place] [id number] [place] 09-21-2023 13:30-0400 SaO2% (BldA) [Mass fraction] 99 % EPIFANIO MCGOWAN [facility] Comment on above: Order Comment: Specimen Type: ARTERIAL B LOOD SPECIMENOrdering Facility: [facility] Address: [address] [place] [id number] Performed By: #### A LLBG ####[facility] LABIA [id number] [address] [address] [place] 09-21-2023 11:36-0400 SaO2% (BldA) [Mass fraction] 100 % EPIFANIO MCGOWAN [facility] Comment on above: Order Comment: Specimen Type: ARTERIAL B LOOD SPECIMENOrdering Facility: [facility] Address: [address] [place], [place] [id number] Performed By: #### A LLBG ####[facility] LABIA [id number] [place] [id number] [place] 09-21-2023 09:18-0400 SaO2% (BldA) [Mass fraction] 100 % EPIFANIO MCGOWAN [facility] Comment on above: Order Comment: Specimen Type: ARTERIAL B LOOD SPECIMENOrdering Facility: [facility] Address: [address] [place], [place] [id number] Performed By: #### A LLBG ####[facility] LABIA [id number] [place] [id number] [place] 09-21-2023 07:45-0400 SaO2% (BldA) [Mass fraction] 100 % EPIFANIO MCGOWAN [facility] Comment on above: Order Comment: Specimen Type: ARTERIAL B LOOD SPECIMENOrdering Facility: [facility] Address: [address] [place] [id number] Performed By: #### A LLBG ####[facility] LABIA [id number] [place] [id number] [place] 09-21-2023 03:32-0400 SaO2% (BldA) [Mass fraction] 98 % EPIFANIO MCGOWAN [facility] Comment on above: Order Comment: Specimen Type: ARTERIAL B LOOD SPECIMENOrdering Facility: [facility] Address: [address] [place], [place] [phone] Performed By: #### A LLBG ####[facility] LABCLIA [id number] [address] [address] [place] 09-21-2023 01:18-0400 SaO2% (BldA) [Mass fraction] 100 % EPIFANIO MCGOWAN [facility] Comment on above: Order Comment: Specimen Type: ARTERIAL B LOOD SPECIMENOrdering Facility: [facility] Address: [address] [place], [place] [id number] Performed By: #### A LLBG ####[facility] LABCLIA [id number] [place] [id number] [place] 09-21-2023 00:11-0400 SaO2% (BldA) [Mass fraction] 100 % EPIFANIO MCGOWAN [facility] Comment on above: Order Comment: Specimen Type: ARTERIAL B LOOD SPECIMENOrdering Facility: [facility] Address: [address] [place] [address] Performed By: #### A LLBG ####[facility] LABCLIA [id number] [place] [id number] [place] 09-20-2023 19:52-0400 SaO2% (BldA) [Mass fraction] 98 % EPIFANIO MCGOWAN [facility] Comment on above: Order Comment: Specimen Type: ARTERIAL B LOOD SPECIMENOrdering Facility: [facility] Address: [address] [place], [place] [id number] Performed By: #### A LLBG ####[facility] LABCLIA [id number] [address] [address] [place] 09-20-2023 18:26-0400 SaO2% (BldA) [Mass fraction] 97 % EPIFANIO MCGOWAN [facility] Comment on above: Order Comment: Specimen Type: ARTERIAL B LOOD SPECIMENOrdering Facility: [facility] Address: [address] [place], [place] [id number] Performed By: #### A LLBG ####[facility] LABCLIA [id number] [place] [id number] [place] 09-20-2023 16:02-0400 SaO2% (BldA) [Mass fraction] 98 % EPIFANIO MCGOWAN [facility] Comment on above: Order Comment: Specimen Type: ARTERIAL B LOOD SPECIMENOrdering Facility: [facility] Address: [address] [place] [address] Performed By: #### A LLBG ####[facility] LABCLIA [id number] [place] [id number] [place] 09-20-2023 14:01-0400 SaO2% (BldA) [Mass fraction] 98 % EPIFANIO MCGOWAN [facility] Comment on above: Order Comment: Specimen Type: ARTERIAL B LOOD SPECIMENOrdering Facility: [facility] Address: [address] [place] [address] Performed By: #### A LLBG ####[facility] LABIA [id number] [place] [id number] [place] 09-20-2023 12:15-0400 SaO2% (BldA) [Mass fraction] 99 % EPIFANIO MCGOWAN [facility] Comment on above: Order Comment: Specimen Type: ARTERIAL B LOOD SPECIMENOrdering Facility: [facility] Address: [address] [place] [address] Performed By: #### A LLBG ####[facility] LABIA [id number] [place] [id number] [place] 09-20-2023 09:02-0400 SaO2% (BldA) [Mass fraction] 97 % EPIFANIO MCGOWAN [facility] Comment on above: Order Comment: Specimen Type: ARTERIAL B LOOD SPECIMENOrdering Facility: [facility] Address: [address] [place] [address] Performed By: #### A LLBG ####[facility] LABIA [id number] [place] [id number] [place] 09-20-2023 07:38-0400 SaO2% (BldA) [Mass fraction] 98 % EPIFANIO MCGOWAN [facility] Comment on above: Order Comment: Specimen Type: ARTERIAL B LOOD SPECIMENOrdering Facility: [facility] Address: [address] [place], [place] [id number] Performed By: #### A LLBG ####[facility] LABCLIA [id number] [place] [id number] [place] 09-20-2023 05:40-0400 SaO2% (BldA) [Mass fraction] 99 % EPIFANIO MCGOWAN [facility] Comment on above: Order Comment: Specimen Type: ARTERIAL B LOOD SPECIMENOrdering Facility: [facility] Address: [address] [place] [address] Performed By: #### A LLBG ####[facility] LABCLIA [id number] [place] [id number] [place] 09-20-2023 03:27-0400 SaO2% (BldA) [Mass fraction] 99 % EPIFANIO MCGOWAN [facility] Comment on above: Order Comment: Specimen Type: ARTERIAL B LOOD SPECIMENOrdering Facility: [facility] Address: [address] [place] [address] Performed By: #### A LLBG ####[facility] LABCLIA [id number] [place] [id number] [place] 09-20-2023 02:33-0400 SaO2% (BldA) [Mass fraction] 98 % EPIFANIO MCGOWAN [facility] Comment on above: Order Comment: Specimen Type: ARTERIAL B LOOD SPECIMENOrdering Facility: [facility] Address: [address] [place] [address] Performed By: #### A LLBG ####[facility] LABCLIA [id number] [place] [id number] [place] 09-20-2023 00:03-0400 SaO2% (BldA) [Mass fraction] 98 % EPIFANIO MCGOWAN [facility] Comment on above: Order Comment: Specimen Type: ARTERIAL B LOOD SPECIMENOrdering Facility: [facility] Address: [address] [place] [phone] Performed By: #### A LLBG ####[facility] LABCLIA [id number] [address] [address] [place] 09-19-2023 21:53-0400 SaO2% (BldA) [Mass fraction] 98 % EPIFANIO MCGOWAN [facility] Comment on above: Order Comment: Specimen Type: ARTERIAL B LOOD SPECIMENOrdering Facility: [facility] Address: [address] [place] [id number] Performed By: #### A LLBG ####[facility] LABIA [id number] [place] [id number] [place] 09-19-2023 20:36-0400 SaO2% (BldA) [Mass fraction] 98 % EPIFANIO MCGOWAN [facility] Comment on above: Order Comment: Specimen Type: ARTERIAL B LOOD SPECIMENOrdering Facility: [facility] Address: [address] [place], [place] [phone] Performed By: #### A LLBG ####[facility] LABIA [id number] [place] [id number] [place] 09-19-2023 19:00-0400 SaO2% (BldA) [Mass fraction] 96 % EPIFANIO MCGOWAN [facility] Comment on above: Order Comment: Specimen Type: ARTERIAL B LOOD SPECIMENOrdering Facility: [facility] Address: [address] [place] [address] Performed By: #### A LLBG ####[facility] LABIA [id number] [place] [id number] [place] 09-19-2023 17:22-0400 SaO2% (BldA) [Mass fraction] 97 % EPIFANIO MCGOWAN [facility] Comment on above: Order Comment: Specimen Type: ARTERIAL B LOOD SPECIMENOrdering Facility: [facility] Address: [address] [place] [phone] Performed By: #### A LLBG ####[facility] LABCLIA [id number] [place] [id number] [place] 09-19-2023 16:00-0400 SaO2% (BldA) [Mass fraction] 95 % EPIFANIO MCGOWAN [facility] Comment on above: Order Comment: Specimen Type: ARTERIAL B LOOD SPECIMENOrdering Facility: [facility] Address: [address] [place] [address] Performed By: #### A LLBG ####[facility] LABCLIA [id number] [address] [place] 09-19-2023 14:53-0400 SaO2% (BldA) [Mass fraction] 94 % EPIFANIO MCGOWAN [facility] Comment on above: Order Comment: Specimen Type: ARTERIAL B LOOD SPECIMENOrdering Facility: [facility] Address: [address] [place] [address] Performed By: #### A LLBG ####[facility] LABCLIA [id number] [place] [id number] [place] 09-19-2023 14:02-0400 SaO2% (BldA) [Mass fraction] 100 % EPIFANIO MCGOWAN [facility] Comment on above: Order Comment: Specimen Type: ARTERIAL B LOOD SPECIMENOrdering Facility: [facility] Address: [address] [place] [address] Performed By: #### A LLBG ####[facility] LABCLIA [id number] [place] [id number] [place] 09-19-2023 13:17-0400 SaO2% (BldA) [Mass fraction] 100 % EPIFANIO MCGOWAN [facility] Comment on above: Order Comment: Specimen Type: ARTERIAL B LOOD SPECIMENOrdering Facility: [facility] Address: [address] [place] [address] Performed By: #### A LLBG ####[facility] LABCLIA [id number] [address] [address] [place] 09-19-2023 12:50-0400 SaO2% (BldA) [Mass fraction] 100 % EPIFANIO MCGOWAN [facility] Comment on above: Order Comment: Specimen Type: ARTERIAL B LOOD SPECIMENOrdering Facility: [facility] Address: [address] [place], [place] [id number] Performed By: #### A LLBG ####[facility] LABCLIA [id number] [place] [id number] [place] 09-19-2023 12:03-0400 SaO2% (BldA) [Mass fraction] 100 % EPIFANIO MCGOWAN [facility] Comment on above: Order Comment: Specimen Type: ARTERIAL B LOOD SPECIMENOrdering Facility: [facility] Address: [address] [place] [address] Performed By: #### A LLBG ####[facility] LABCLIA [id number] [place] [id number] [place] 09-19-2023 11:10-0400 SaO2% (BldA) [Mass fraction] 100 % EPIFANIO MCGOWAN [facility] Comment on above: Order Comment: Specimen Type: ARTERIAL B LOOD SPECIMENOrdering Facility: [facility] Address: [address] [place], [place] [id number] Performed By: #### A LLBG ####[facility] LABCLIA [id number] [place] [id number] [place] 09-19-2023 10:22-0400 SaO2% (BldA) [Mass fraction] 100 % EPIFANIO MCGOWAN [facility] Comment on above: Order Comment: Specimen Type: ARTERIAL B LOOD SPECIMENOrdering Facility: [facility] Address: [address] [place] [address] Performed By: #### A LLBG ####[facility] LABCLIA [id number] [place] [id number] [place] 09-19-2023 09:34-0400 SaO2% (BldA) [Mass fraction] 100 % EPIFANIO BALL [facility] Comment on above: Order Comment: Specimen Type: ARTERIAL B LOOD SPECIMENOrdering Facility: [facility] Address: [address] [place] [address] Performed By: #### A LLBG ####[facility] LABCLIA [id number] [address] [place] 09-19-2023 07:53-0400 SaO2% (BldA) [Mass fraction] 99 % EPIFANIO BALL [facility] Comment on above: Order Comment: Specimen Type: ARTERIAL B LOOD SPECIMENOrdering Facility: [facility] Address: [address] [place] [address] Performed By: #### A LLBG ####[facility] LABCLIA [id number] [address] [place] 08-24-2023 14:14-0400 Body height 185.42 cm DO Epifanio Ball Work Phone: [facility] 08-24-2023 14:14-0400 Body mass index (BMI) [Ratio] 33.4 kg/m2 DO Epifanio Ball Work Phone: [facility] 08-24-2023 14:14-0400 Body weight 114.87 kg DO Epifanio Ball Work Phone: [facility] 08-24-2023 14:14-0400 Diastolic blood pressure 60 mm[Hg] DO Epifanio Ball Work Phone: [facility] 08-24-2023 14:14-0400 Heart rate 77 /min DO Epifanio Ball Work Phone: [facility] 08-24-2023 14:14-0400 Respiratory rate 12 /min DO Epifanio Ball Work Phone: [facility] 08-24-2023 14:14-0400 Systolic blood pressure 100 mm[Hg] DO Epifanio Ball Work Phone: [facility] 08-17-2023 21:09-0400 Heart rate 71 /min DO Epifanio Ball Work Phone: [facility] 08-17-2023 20:46-0400 Diastolic blood pressure 68 mm[Hg] DO Epifanio Ball Work Phone: [facility] 08-17-2023 20:46-0400 Respiratory rate 18 /min DO Epifanio Ball Work Phone: [facility] 08-17-2023 20:46-0400 SaO2% (BldA) [Mass fraction] 98 % DO Epifanio Ball Work Phone: [facility] 08-17-2023 20:46-0400 Systolic blood pressure 117 mm[Hg] DO Epifanio Ball Work Phone: [facility] 08-17-2023 19:41-0400 Body height 185.42 cm DO Epifanio Ball Work Phone: [facility] 08-17-2023 19:41-0400 Body temperature 97.7 [degF] DO Epifanio Ball Work Phone: [facility] 08-17-2023 19:41-0400 Body weight 116.7 kg DO Epifanio Ball Work Phone: [facility] 08-16-2023 09:00-0400 Body height 185.42 cm DO Epifanio Ball Work Phone: [facility] 08-16-2023 09:00-0400 Body mass index (BMI) [Ratio] 34.2 kg/m2 DO Epifanio Ball Work Phone: [facility] 08-16-2023 09:00-0400 Body weight 117.48 kg DO Epifanio Ball Work Phone: [facility] 08-16-2023 09:00-0400 Diastolic blood pressure 70 mm[Hg] DO Epifanio Ball Work Phone: [facility] 08-16-2023 09:00-0400 Heart rate 66 /min DO Epifanio Ball Work Phone: [facility] 08-16-2023 09:00-0400 Respiratory rate 18 /min DO Epifanio Ball Work Phone: [facility] 08-16-2023 09:00-0400 SaO2% (BldA) [Mass fraction] 94 % DO Epifanio Ball Work Phone: [facility] 08-16-2023 09:00-0400 Systolic blood pressure 119 mm[Hg] DO Epifanio Ball Work Phone: [facility] 07-18-2023 09:26-0400 Body height 185.42 cm DO Epifanio Ball Work Phone: [facility] 07-18-2023 09:26-0400 Body mass index (BMI) [Ratio] 32.8 kg/m2 DO Epifanio Ball Work Phone: [facility] 07-18-2023 09:26-0400 Body weight 112.94 kg DO Epifanio Ball Work Phone: [facility] 07-18-2023 09:26-0400 Diastolic blood pressure 73 mm[Hg] DO Epifanio Ball Work Phone: [facility] 07-18-2023 09:26-0400 Heart rate 73 /min DO Epifanio Ball Work Phone: [facility] 07-18-2023 09:26-0400 Respiratory rate 16 /min DO Epifanio Ball Work Phone: [facility] 07-18-2023 09:26-0400 Systolic blood pressure 112 mm[Hg] DO Epifanio Ball Work Phone: [facility] 07-11-2023 12:58-0400 Body height 185.42 cm DO Epifanio Ball Work Phone: [facility] 07-11-2023 12:58-0400 Body mass index (BMI) [Ratio] 33 kg/m2 DO Epifanio Ball Work Phone: [facility] 07-11-2023 12:58-0400 Body weight 113.39 kg DO Epifanio Ball Work Phone: [facility] 07-11-2023 12:58-0400 Diastolic blood pressure 56 mm[Hg] DO Epifanio Ball Work Phone: [facility] 07-11-2023 12:58-0400 Heart rate 73 /min DO Epifanio Ball Work Phone: [facility] 07-11-2023 12:58-0400 SaO2% (BldA) [Mass fraction] 93 % DO Epifanio Ball Work Phone: [facility] 07-11-2023 12:58-0400 Systolic blood pressure 110 mm[Hg] DO Epifanio Ball Work Phone: [facility] 06-22-2023 11:57-0400 Respiratory rate 20 /min DO Epifanio Ball Work Phone: [facility] 06-22-2023 10:40-0400 Body height 185.42 cm DO Epifanio Ball Work Phone: [facility] 06-22-2023 08:00-0400 Body temperature 97.7 [degF] DO Epifanio Ball Work Phone: [facility] 06-22-2023 08:00-0400 Diastolic blood pressure 58 mm[Hg] DO Epifanio Ball Work Phone: [facility] 06-22-2023 08:00-0400 Inhaled oxygen flow rate 3 L/min DO Epifanio Ball Work Phone: [facility] 06-22-2023 08:00-0400 SaO2% (BldA) [Mass fraction] 96 % DO Epifanio Ball Work Phone: [facility] 06-22-2023 08:00-0400 Systolic blood pressure 118 mm[Hg] DO Epifanio Ball Work Phone: [facility] 06-22-2023 07:53-0400 Heart rate 70 /min DO Epifanio Ball Work Phone: [facility] 06-22-2023 04:47-0400 Body weight 115.1 kg DO Epifanio Ball Work Phone: [facility] 06-22-2023 03:45-0400 Diastolic blood pressure 54 mm[Hg] DO Epifanio Ball Work Phone: [facility] 06-22-2023 03:45-0400 Heart rate 84 /min DO Epifanio Ball Work Phone: [facility] 06-22-2023 03:45-0400 Inhaled oxygen flow rate 2 L/min DO Epifanio Ball Work Phone: [facility] 06-22-2023 03:45-0400 Respiratory rate 16 /min DO Epifanio Ball Work Phone: [facility] 06-22-2023 03:45-0400 SaO2% (BldA) [Mass fraction] 98 % DO Epifanio Ball Work Phone: [facility] 06-22-2023 03:45-0400 Systolic blood pressure 114 mm[Hg] DO Epifanio Ball Work Phone: [facility] 06-22-2023 01:38-0400 Body height 185.42 cm DO Epifanio Ball Work Phone: [facility] 06-22-2023 01:38-0400 Body temperature 98.1 [degF] DO Epifanio Ball Work Phone: [facility] 06-22-2023 01:38-0400 Body weight 119.3 kg DO Epifanio Ball Work Phone: [facility] 06-03-2023 11:47-0400 Diastolic blood pressure 62 mm[Hg] DO Epifanio Ball Work Phone: [facility] 06-03-2023 11:47-0400 Heart rate 85 /min DO Epifanio Ball Work Phone: [facility] 06-03-2023 11:47-0400 Respiratory rate 16 /min DO Epifanio Ball Work Phone: [facility] 06-03-2023 11:47-0400 SaO2% (BldA) [Mass fraction] 96 % DO Epifanio Ball Work Phone: [facility] 06-03-2023 11:47-0400 Systolic blood pressure 115 mm[Hg] DO Epifanio Ball Work Phone: [facility] 06-03-2023 09:14-0400 Body height 185.42 cm DO Epifanio Ball Work Phone: [facility] 06-03-2023 09:14-0400 Body temperature 97.6 [degF] DO Epifanio Ball Work Phone: [facility] 06-03-2023 09:14-0400 Body weight 108.86 kg DO Epifanio Ball Work Phone: [facility] 05-26-2023 08:54-0400 Body height 185.42 cm DO Epifanio Ball Work Phone: [facility] 05-26-2023 08:54-0400 Body mass index (BMI) [Ratio] 33.2 kg/m2 DO Epifanio Ball Work Phone: [facility] 05-26-2023 08:54-0400 Body temperature 96.8 [degF] DO Epifanio Ball Work Phone: [facility] 05-26-2023 08:54-0400 Body weight 114.3 kg DO Epifanio Ball Work Phone: [facility] 05-26-2023 08:54-0400 Diastolic blood pressure 56 mm[Hg] DO Epifanio Ball Work Phone: [facility] 05-26-2023 08:54-0400 Heart rate 77 /min DO Epifanio Ball Work Phone: [facility] 05-26-2023 08:54-0400 Respiratory rate 20 /min DO Epifanio Ball Work Phone: [facility] 05-26-2023 08:54-0400 SaO2% (BldA) [Mass fraction] 93 % DO Epifanio Ball Work Phone: [facility] 05-26-2023 08:54-0400 Systolic blood pressure 108 mm[Hg] DO Epifanio Ball Work Phone: [facility] 05-16-2023 12:56-0500 Diastolic blood pressure 55 mm[Hg] DO Epifanio Ball Work Phone: [facility] 05-16-2023 12:56-0500 Heart rate 71 /min DO Epifanio Ball Work Phone: [facility] 05-16-2023 12:56-0500 Respiratory rate 16 /min DO Epifanio Ball Work Phone: [facility] 05-16-2023 12:56-0500 SaO2% (BldA) [Mass fraction] 99 % DO Epifanio Ball Work Phone: [facility] 05-16-2023 12:56-0500 Systolic blood pressure 118 mm[Hg] DO Epifanio Ball Work Phone: [facility] 05-16-2023 11:08-0500 Body height 185.42 cm DO Epifanio Ball Work Phone: [facility] 05-16-2023 11:08-0500 Body weight 108.86 kg DO Epifanio Ball Work Phone: [facility] 05-12-2023 09:03-0500 Body height 185.42 cm DO Epifanio Ball Work Phone: [facility] 05-12-2023 09:03-0500 Body mass index (BMI) [Ratio] 32.5 kg/m2 DO Epifanio Ball Work Phone: [facility] 05-12-2023 09:03-0500 Body temperature 97.4 [degF] DO Epifanio Ball Work Phone: [facility] 05-12-2023 09:03-0500 Body weight 112.03 kg DO Epifanio Ball Work Phone: [facility] 05-12-2023 09:03-0500 Diastolic blood pressure 62 mm[Hg] DO Epifanio Ball Work Phone: [facility] 05-12-2023 09:03-0500 Heart rate 70 /min DO Epifanio Ball Work Phone: [facility] 05-12-2023 09:03-0500 Respiratory rate 20 /min DO Epifanio Ball Work Phone: [facility] 05-12-2023 09:03-0500 SaO2% (BldA) [Mass fraction] 94 % DO Epifanio Ball Work Phone: [facility] 05-12-2023 09:03-0500 Systolic blood pressure 104 mm[Hg] DO Epifanio Ball Work Phone: [facility] 05-09-2023 09:15-0500 Body height 185.42 cm DO Epifanio Ball Work Phone: [facility] 05-09-2023 09:15-0500 Body mass index (BMI) [Ratio] 32.5 kg/m2 DO Epifanio Ball Work Phone: [facility] 05-09-2023 09:15-0500 Body weight 112.03 kg DO Epifanio Ball Work Phone: [facility] 05-09-2023 09:15-0500 Diastolic blood pressure 72 mm[Hg] DO Epifanio Ball Work Phone: [facility] 05-09-2023 09:15-0500 Heart rate 70 /min DO Epifanio Ball Work Phone: [facility] 05-09-2023 09:15-0500 Respiratory rate 18 /min DO Epifanio Ball Work Phone: [facility] 05-09-2023 09:15-0500 SaO2% (BldA) [Mass fraction] 98 % DO Epifanio Ball Work Phone: [facility] 05-09-2023 09:15-0500 Systolic blood pressure 122 mm[Hg] DO Epifanio Ball Work Phone: [facility] 03-18-2023 10:30-0500 Body height 185.42 cm Epifanio Ball Other [facility] 03-18-2023 10:30-0500 Body mass index (BMI) [Ratio] 33.9 kg/m2 Epifanio Ball Other [facility] [employer] Other 03-18-2023 10:30-0500 Body weight 116.58 kg Epifanio Ball Other [facility] [employer] Other 03-18-2023 10:30-0500 Body weight 116.57 kg DO Epifanio Ball Work Phone: [facility] 03-18-2023 10:30-0500 Diastolic blood pressure 75 mm[Hg] Epifanio Ball Other [facility] 03-18-2023 10:30-0500 Respiratory rate 12 /min Epifanio Ball Other [facility] [employer] Other 03-18-2023 10:30-0500 Systolic blood pressure 116 mm[Hg] Epifanio Ball Other [facility] 03-09-2023 14:15-0500 Body height 185.42 cm Epifanio Ball Other [facility] 03-09-2023 14:15-0500 Body mass index (BMI) [Ratio] 33.01 kg/m2 Epifanio Ball Other [facility] [employer] Other 03-09-2023 14:15-0500 Body weight 113.49 kg Epifanio Ball Other [facility] [employer] Other 03-09-2023 14:15-0500 Body weight 113.48 kg DO Epifanio Ball Work Phone: [facility] 03-09-2023 14:15-0500 Diastolic blood pressure 60 mm[Hg] Epifanio Ball Other [facility] 03-09-2023 14:15-0500 Respiratory rate 12 /min Epifanio Ball Other [facility] [employer] Other 03-09-2023 14:15-0500 Systolic blood pressure 97 mm[Hg] Epifanio Ball Other [facility] 02-22-2023 08:37-0500 Blood Pressure Location Mayank PROCTOR [facility] 02-22-2023 08:37-0500 Diastolic blood pressure 80 mm[Hg] Mayank PROCTOR [facility] 02-22-2023 08:37-0500 Heart rate 74 /min Mayank PROTCOR [facility] 02-22-2023 08:37-0500 Systolic blood pressure 130 mm[Hg] Mayank PROCTOR [facility] 02-02-2023 08:45-0500 Body height 185.42 cm Tondra Mapus Other [facility] 02-02-2023 08:45-0500 Body mass index (BMI) [Ratio] 32.97 kg/m2 Tondra Mapus Other [employer] Other 02-02-2023 08:45-0500 Body weight 113.35 kg Tondra Mapus Other [facility] 02-02-2023 08:45-0500 Diastolic blood pressure 64 mm[Hg] Tondra Mapus Other [facility] 02-02-2023 08:45-0500 Respiratory rate 18 /min Tondra Mapus Other [employer] Other 02-02-2023 08:45-0500 SaO2% (BldA) [Mass fraction] 94 % Tondra Mapus Other [employer] Other 02-02-2023 08:45-0500 Systolic blood pressure 104 mm[Hg] Suzi Saxena Other [facility] 11-17-2022 11:15-0400 Body height 185.42 cm Epifanio Ball Other [employer] Other 11-17-2022 11:15-0400 Body mass index (BMI) [Ratio] 33.3 kg/m2 Epifanio Ball Other [employer] Other 11-17-2022 11:15-0400 Body weight 114.49 kg Epifanio Ball Other [employer] Other 11-17-2022 11:15-0400 Diastolic blood pressure 61 mm[Hg] Epifanio Ball Other [employer] Other 11-17-2022 11:15-0400 Respiratory rate 12 /min Epifanio Ball Other [employer] Other 11-17-2022 11:15-0400 Systolic blood pressure 112 mm[Hg] Epifanio Ball Other [employer] Other 09-15-2022 10:00-0400 Body height 185.42 cm Epifanio Ball Other [employer] Other 09-15-2022 10:00-0400 Body mass index (BMI) [Ratio] 33.32 kg/m2 Epifanio Ball Other [employer] Other 09-15-2022 10:00-0400 Body weight 114.58 kg Epifanio Ball Other [employer] Other 09-15-2022 10:00-0400 Diastolic blood pressure 65 mm[Hg] Epifanio Ball Other [employer] Other 09-15-2022 10:00-0400 Respiratory rate 12 /min Epifanio Ball Other [employer] Other 09-15-2022 10:00-0400 Systolic blood pressure 100 mm[Hg] Epifanio Ball Other [employer] Other 09-10-2022 14:02-0400 Body height 185.4 cm Emmanuel Sparks MD Work Phone: [facility] 09-10-2022 14:02-0400 Body weight 112.4 kg Emmanuel Sparks MD Work Phone: [facility] 09-10-2022 14:02-0400 Diastolic blood pressure 55 mm[Hg] Emmanuel Sparks MD Work Phone: [facility] 09-10-2022 14:02-0400 Heart rate 58 /min Emmanuel Sparks MD Work Phone: [facility] 09-10-2022 14:02-0400 SaO2% (BldA) [Mass fraction] 98 % Emmanuel Sparks MD Work Phone: [facility] 09-10-2022 14:02-0400 Systolic blood pressure 116 mm[Hg] Emmanuel Sparks MD Work Phone: [facility] 07-13-2022 15:00-0400 Body height 185.42 cm Tondra Mapus Other [employer] Other 07-13-2022 15:00-0400 Body mass index (BMI) [Ratio] 32.58 kg/m2 Tondra Mapus Other [employer] Other 07-13-2022 15:00-0400 Body weight 112.04 kg Tondra Mapus Other [employer] Other 07-13-2022 15:00-0400 Diastolic blood pressure 54 mm[Hg] Tondra Mapus Other [employer] Other 07-13-2022 15:00-0400 Respiratory rate 18 /min Tondra Mapus Other [employer] Other 07-13-2022 15:00-0400 SaO2% (BldA) [Mass fraction] 96 % Tondra Mapus Other [employer] Other 07-13-2022 15:00-0400 Systolic blood pressure 113 mm[Hg] Tondra Mapus Other [employer] Other 04-06-2022 09:30-0500 Body height 185.42 cm Tondra Mapus Other [employer] Other 04-06-2022 09:30-0500 Body mass index (BMI) [Ratio] 31.7 kg/m2 Tondra Mapus Other [employer] Other 04-06-2022 09:30-0500 Body weight 109 kg Tondra Mapus Other [employer] Other 04-06-2022 09:30-0500 Diastolic blood pressure 61 mm[Hg] Tondra Mapus Other [employer] Other 04-06-2022 09:30-0500 Respiratory rate 18 /min Tondra Mapus Other [employer] Other 04-06-2022 09:30-0500 SaO2% (BldA) [Mass fraction] 96 % Tondra Mapus Other [employer] Other 04-06-2022 09:30-0500 Systolic blood pressure 94 mm[Hg] Tondra Mapus Other [employer] Other 03-17-2022 12:00-0500 Body height 185.42 cm Epifanio Ball Other [employer] Other 03-17-2022 12:00-0500 Body mass index (BMI) [Ratio] 31.67 kg/m2 Epifanio Ball Other [employer] Other 03-17-2022 12:00-0500 Body weight 108.91 kg Epifanio Ball Other [employer] Other 03-17-2022 12:00-0500 Diastolic blood pressure 70 mm[Hg] Epifanio Ball Other [employer] Other 03-17-2022 12:00-0500 Respiratory rate 16 /min Epifanio Ball Other [employer] Other 03-17-2022 12:00-0500 Systolic blood pressure 112 mm[Hg] Epifanio Ball Other [employer] Other 12-28-2021 11:15-0400 Body height 185.42 cm Tondra Mapus Other [employer] Other 12-28-2021 11:15-0400 Body mass index (BMI) [Ratio] 30.74 kg/m2 Tondra Mapus Other [employer] Other 12-28-2021 11:15-0400 Body weight 105.69 kg Tondra Mapus Other [employer] Other 12-28-2021 11:15-0400 Diastolic blood pressure 41 mm[Hg] Tondra Mapus Other [employer] Other 12-28-2021 11:15-0400 Respiratory rate 16 /min Tondra Mapus Other [employer] Other 12-28-2021 11:15-0400 SaO2% (BldA) [Mass fraction] 98 % Tondra Mapus Other [employer] Other 12-28-2021 11:15-0400 Systolic blood pressure 89 mm[Hg] Tondra Mapus Other [employer] Other 10-16-2021 10:19-0400 Body height 185.4 cm Emmanuel Sparks MD Work Phone: [facility] 10-16-2021 10:19-0400 Body weight 107.05 kg Emmanuel Sparks MD Work Phone: [facility] 10-16-2021 10:19-0400 Diastolic blood pressure 55 mm[Hg] Emmanuel Sparks MD Work Phone: [facility] 10-16-2021 10:19-0400 Heart rate 65 /min Emmanuel Sparks MD Work Phone: [facility] 10-16-2021 10:19-0400 SaO2% (BldA) [Mass fraction] 98 % Emmanuel Sparks MD Work Phone: [facility] 10-16-2021 10:19-0400 Systolic blood pressure 105 mm[Hg] Emmanuel Sparks MD Work Phone: [facility] 05-21-2021 14:00-0500 Body height 185.42 cm Tondra Mapus Other [employer] Other 05-21-2021 14:00-0500 Body mass index (BMI) [Ratio] 32.58 kg/m2 Tondra Mapus Other [employer] Other 05-21-2021 14:00-0500 Body weight 112.04 kg Tondra Mapus Other [employer] Other 05-21-2021 14:00-0500 Diastolic blood pressure 57 mm[Hg] Tondra Mapus Other [employer] Other 05-21-2021 14:00-0500 Respiratory rate 16 /min Tondra Mapus Other [employer] Other 05-21-2021 14:00-0500 SaO2% (BldA) [Mass fraction] 98 % Tondra Mapus Other [employer] Other 05-21-2021 14:00-0500 Systolic blood pressure 96 mm[Hg] Tondra Mapus Other [employer] Other 02-11-2021 11:15-0500 Body height 185.42 cm Tondra Mapus Other [employer] Other 02-11-2021 11:15-0500 Body mass index (BMI) [Ratio] 31 kg/m2 Tondra Mapus Other [employer] Other 02-11-2021 11:15-0500 Body weight 106.6 kg Tondra Mapus Other [employer] Other 02-11-2021 11:15-0500 Diastolic blood pressure 47 mm[Hg] Tondra Mapus Other [employer] Other 02-11-2021 11:15-0500 Respiratory rate 20 /min Tondra Mapus Other [employer] Other 02-11-2021 11:15-0500 SaO2% (BldA) [Mass fraction] 96 % Tondra Mapus Other [employer] Other 02-11-2021 11:15-0500 Systolic blood pressure 92 mm[Hg] Tondra Mapus Other [employer] Other 01-08-2021 11:00-0400 Body height 185.42 cm Tondra Mapus Other [employer] Other 01-08-2021 11:00-0400 Body mass index (BMI) [Ratio] 30.87 kg/m2 Tondra Mapus Other [employer] Other 01-08-2021 11:00-0400 Body weight 106.14 kg Tondra Mapus Other [employer] Other 01-08-2021 11:00-0400 Diastolic blood pressure 62 mm[Hg] Tondra Mapus Other [employer] Other 01-08-2021 11:00-0400 Respiratory rate 20 /min Tondra Mapus Other [employer] Other 01-08-2021 11:00-0400 SaO2% (BldA) [Mass fraction] 97 % Tondra Mapus Other [employer] Other 01-08-2021 11:00-0400 Systolic blood pressure 104 mm[Hg] Tondra Mapus Other [employer] Other Encounters Encounter Date Encounter Type Care Provider Facility Start: 02-29-2024 ambulatory Mayank R HITESH Tanner ty:LORENA Oconnor Start: 11-02-2023 End: 11-02-2023 ambulatory DO Epifanio Mcgowan Work Phone: [facility] Work Phone: Start: 11-02-2023 End: 11-02-2023 DO Epifanio Mcgowan Work Phone: [facility] Work Phone: Start: 11-01-2023 DO Epifanio Ba ll Work Phone: [facility] Work Phone: Start: 10-28-2023 DO Epifanio Ba ll Work Phone: [facility] Work Phone: Start: 10-27-2023 DO Epifanio Ba ll Work Phone: [facility] Work Phone: Start: 10-26-2023 DO Epifanio Ba ll Work Phone: [facility] Work Phone: Start: 10-25-2023 DO Epifanio Ba ll Work Phone: [facility] Work Phone: Start: 10-24-2023 DO Epifanio Ba ll Work Phone: [facility] Work Phone: Start: 10-24-2023 Refill Emmanuel Sparks MD Work Phone: Cardiology Comment on above: Rx Refills Start: 10-18-2023 DO Epifanio Ba ll Work Phone: [facility] Work Phone: Start: 10-14-2023 DO Epifanio Ba ll Work Phone: [facility] Work Phone: Start: 10-12-2023 End: 10-12-2023 ambulatory DO Epifanio Mcgowan Work Phone: [facility] Work Phone: Start: 10-12-2023 End: 10-12-2023 DO Epifanio Mcgowan Work Phone: [facility] Work Phone: Start: 10-04-2023 End: 10-04-2023 ambulatory LEI H GOMEZ Not Available Start: 09-30-2023 DO Epifanio Ba ll Work Phone: [facility] Work Phone: Start: 09-29-2023 Telephone encounter Marissa ABAD Comment on above: Follow Up Phone Call (Relate care discharge follow [id number] clear) Start: 09-28-2023 DO Epifanio Ba ll Work Phone: [facility] Work Phone: Start: 09-27-2023 DO Epifanio Ba ll Work Phone: [facility] Work Phone: Start: 09-26-2023 Orders Only Emmanuel Sparks MD Work Phone: Cardiology Comment on above: Chronic systolic hea rt failure (HCC) (Primary Dx) Start: 09-26-2023 DO Epifanio Ba ll Work Phone: [facility] Work Phone: Start: 09-25-2023 DO Epifanio Ba ll Work Phone: [facility] Work Phone: Start: 09-24-2023 DO Epifanio Ba ll Work Phone: [facility] Work Phone: Start: 09-23-2023 DO Epifanio Ba ll Work Phone: [facility] Work Phone: Start: 09-22-2023 DO Epifanio Ba ll Work Phone: [facility] Work Phone: Start: 09-21-2023 DO Epifanio Ba ll Work Phone: [facility] Work Phone: Start: 09-20-2023 DO Epifanio Ba ll Work Phone: [facility] Work Phone: Start: 09-19-2023 DO Epifanio Ba ll Work Phone: [facility] Work Phone: Start: 09-18-2023 Patient encounter status Emmanuel Sparks MD Work Phone: [facility] Work Phone: Start: 09-18-2023 DO Epifanio Ba ll Work Phone: [facility] Work Phone: Start: 09-17-2023 DO Epifanio Ba ll Work Phone: [facility] Work Phone: Start: 09-16-2023 End: 09-16-2023 Preoperative state Deb Saavedra DDS Work Phone: [facility] Work Phone: Start: 09-16-2023 End: 09-16-2023 Evaluation and management of inpatient Pulm Fct Lab J-2 Pulmonary Medicine Comment on above: Pre-operative cardio vascular examination (Primary Dx) Pre-operative cleara nce (Primary Dx); NSTEMI (non-ST elevated myocardial infarction) (HCC) Start: 09-16-2023 End: 09-16-2023 Patient encounter status Pulm J-2 [facility] Start: 09-16-2023 DO Epifanio Ba ll Work Phone: [facility] Work Phone: Start: 09-15-2023 DO Epifanio Ba ll Work Phone: [facility] Work Phone: Start: 09-14-2023 End: 09-14-2023 Evaluation and management of inpatient EPIFANIO MCGOWAN Facility:[facility] Start: 09-14-2023 DO Epifanio Ba ll Work Phone: [facility] Work Phone: Start: 09-13-2023 End: 09-13-2023 Evaluation and management of inpatient EPIFANIO MCGOWAN Facility:[facility] Start: 09-13-2023 DO Epifanio Ba ll Work Phone: [facility] Work Phone: Start: 09-12-2023 DO Epifanio Ba ll Work Phone: [facility] Work Phone: Start: 09-11-2023 DO Epifanio Ba ll Work Phone: [facility] Work Phone: Start: 09-11-2023 End: 09-28-2023 Evaluation and management of inpatient MARLA NELSONFAUSTO Facility:[facility] Start: 09-02-2023 End: 09-02-2023 Patient encounter procedure DO Epifanio Ball Work Phone: [facility] Ens-Zxo-Txyvtvzn Testing Work Phone: Start: 09-02-2023 End: 09-02-2023 DO Epifanio Ball Work Phone: [facility] Qrw-Mcg-Htjyqzfd Testing Work Phone: Start: 09-02-2023 End: 09-02-2023 ambulatory DO Epifanio Ball Work Phone: [facility] Ctr Work Phone: Start: 09-02-2023 Encounter for preprocedural laboratory examination Shaina Frazier [facility] Start: 08-24-2023 End: 08-24-2023 ambulatory DO Epifanio Mcgowan Work Phone: [facility] Work Phone: Start: 08-24-2023 End: 08-24-2023 Patient encounter procedure DO Epifanio Mcgowan Work Phone: [facility] Phys[facility] Work Phone: Start: 08-24-2023 End: 08-24-2023 DO Epifanio Mcgowan Work Phone: [facility] Work Phone: Start: 08-18-2023 Non-patient / Non-visit DO Larry Mcgowan Work Phone: [facility] Work Phone: Start: 08-18-2023 DO Epifanio Serjio davis Work Phone: [facility] Work Phone: Start: 08-18-2023 End: 08-18-2023 ambulatory EPIFANIO Nena MCGOWAN Facility:[facility] Start: 08-17-2023 End: 08-17-2023 DO Epifanio Mcgowan Work Phone: [facility] Work Phone: Start: 08-17-2023 End: 08-17-2023 Emergency department patient visit DO Epifanio Mcgowan Work Phone: [facility] Work Phone: Start: 08-16-2023 End: 08-16-2023 ambulatory DO Epifanio Mcgowan Work Phone: [facility] Work Phone: Start: 08-16-2023 End: 08-16-2023 Patient encounter procedure DO Epifanio Mcgowan Work Phone: [facility] Physician [facility] Work Phone: Start: 08-16-2023 End: 08-16-2023 DO Epifanio Ball Work Phone: [facility] Work Phone: Start: 07-18-2023 End: 07-18-2023 ambulatory DO Epifanio Ball Work Phone: [facility] Work Phone: Start: 07-18-2023 End: 07-18-2023 Patient encounter procedure DO Epifanio Ball Work Phone: [facility] Work Phone: Start: 07-18-2023 End: 07-18-2023 DO Epifanio Ball Work Phone: [facility] Physician [facility] Work Phone: Start: 07-11-2023 End: 07-11-2023 ambulatory DO Epifanio Mcgowan Work Phone: [facility] Work Phone: Start: 07-11-2023 End: 07-11-2023 Patient encounter procedure DO Epifanio Mcgowan Work Phone: [facility] Phys[facility] Work Phone: Start: 07-08-2023 Refill Emmanuel Sparks MD Work Phone: Cardiology Comment on above: Rx Refills Start: 07-05-2023 End: 07-05-2023 ambulatory LEI GOMEZ Not Available Start: 06-27-2023 End: 06-27-2023 ambulatory SHAINA FRAZIER V Not Available Start: 06-22-2023 End: 06-22-2023 Non-patient / Non-visit DO Epifanio Ball Work Phone: [facility] Physician [facility] Pulmonary Disease Work Phone: Start: 06-22-2023 Evaluation and management of inpatient DO Epifanio Ball Work Phone: [facility] Work Phone: Start: 06-22-2023 End: 06-22-2023 Non-patient / Non-visit DO Epifanio Ball Work Phone: [facility] Work Phone: Start: 06-22-2023 observation encounter DO Zain cMgowan Work Phone: [facility] Work Phone: Start: 06-22-2023 End: 06-22-2023 ambulatory Damian Blevins Facility:[facility] Start: 06-06-2023 Non-patient / Non-visit DO Larry Mcgowan Work Phone: [facility] Work Phone: Start: 06-03-2023 Non-patient / Non-visit DO Larry Mcgowan Work Phone: [facility] Gastroenterology Work Phone: Start: 06-03-2023 End: 06-03-2023 Admission to same day surgery center DO pEifanio Mcgowan Work Phone: [facility] Ctr-Digestive Health Work Phone: Start: 06-03-2023 End: 06-03-2023 ambulatory DO Epifanio Mcgowan Work Phone: [facility] Work Phone: Start: 05-26-2023 End: 05-26-2023 ambulatory DO Epifanio Mcgowan Work Phone: 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, unspecified laterality (HCC); Ischemic cardiomyopathy; Type 1 diabetes mellitus with diabetic polyneuropathy (HCC); Coronary artery disease involving [place] coronary artery of [place] heart without angina pectoris; Dyslipidemia; Obesity, Class I, BMI 30-34.9 Start: 05-19-2023 End: 05-19-2023 Telemedicine consultation with patient Emmanuel Sparks MD Work Phone: [facility] Start: 05-16-2023 Non-patient / Non-visit DO Larry Mcgowan Work Phone: [facility] Pulmonary Disease Work Phone: Start: 05-16-2023 End: 05-16-2023 Admission to same day surgery center DO Epifanio Mcgowan Work Phone: [facility]-Digestive [facility] Work Phone: Start: 05-16-2023 End: 05-16-2023 ambulatory Ashish Lozano Facility:[facility] Start: 05-12-2023 End: 05-12-2023 Patient encounter procedure DO Epifanio Mcgowan Work Phone: [facility] Phys[facility] Pulmonary Disease Work Phone: Start: 05-09-2023 End: 05-09-2023 Patient encounter procedure DO Epifanio Mcgowan Work Phone: [facility] Work Phone: Start: 04-21-2023 End: 04-21-2023 ambulatory Imad Asaad Other [employer] Other Start: 04-21-2023 Telephone encounter Imad Asaad [facility] [employer] Start: 04-04-2023 End: 04-04-2023 ambulatory Epifanio Mcgowan Other [employer] Other Start: 04-04-2023 Telephone encounter Epifanio Mcgowan [facility] Start: 03-23-2023 End: 03-23-2023 ambulatory LEI GOMEZ Not Available Start: 03-22-2023 End: 03-22-2023 ambulatory Epifanio Mcgowan Other [employer] Other Start: 03-22-2023 Telephone encounter Epifanio Mcgowan [facility] Start: 03-21-2023 End: 03-21-2023 ambulatory Suzi Saxena Other [employer] Other Start: 03-21-2023 Telephone encounter Suzi Saxena [facility] Start: 03-18-2023 End: 03-18-2023 ambulatory Epifanio Mcgowan Other [employer] Other Start: 03-18-2023 Patient encounter procedure Epifanio Ball [facility] Start: 03-18-2023 End: 03-18-2023 Patient encounter procedure DO Epifanio Ball Work Phone: [facility] Work Phone: Start: 03-15-2023 End: 03-15-2023 ambulatory Epifanio Ball Other [employer] Other Start: 03-15-2023 Telephone encounter Epifanio [facility] Start: 03-12-2023 End: 03-12-2023 ambulatory Epifanio Ball Other [employer] Other Start: 03-12-2023 Telephone encounter Epifanio [facility] Start: 03-10-2023 End: 03-10-2023 ambulatory Epifanio Ball Other [employer] Other Start: 03-10-2023 Telephone encounter Epifanio Ball [facility] Start: 03-09-2023 End: 03-09-2023 ambulatory Epifanio Ball Other [employer] Other Start: 03-09-2023 Office outpatient vi sit 15 minutes Epifanio Ball [facility] Start: 03-09-2023 Telephone encounter Epifanio Ball [facility] Start: 03-09-2023 End: 03-09-2023 Patient encounter procedure DO Epifanio Ball Work Phone: [facility] Work Phone: Start: 02-28-2023 Refill Emmanuel Sparks MD Work Phone: Cardiology Comment on above: Refill Request Start: 02-22-2023 End: 02-23-2023 ambulatory Mayank Macie PROCTOR Facility: [facility] Start: 02-22-2023 End: 02-22-2023 Patient encounter procedure Mayank PROCTOR [facility] Start: 02-16-2023 End: 02-16-2023 Patient encounter procedure DO Epifanio Mcgowan Work Phone: [facility] [place] Work Phone: Start: 02-16-2023 End: 02-16-2023 [facility] Facility[facility] Start: 02-02-2023 (DM) Diabetes Tondra Odessa [facility] Start: 02-02-2023 End: 02-02-2023 Discharged Recurring DO Epifanio Mcgowan Work Phone: [facility] Work Phone: Start: 02-02-2023 End: 02-02-2023 ambulatory DO Epifanio Mcgowan Work Phone: [employer] Other Start: 02-02-2023 End: 02-02-2023 Patient encounter procedure DO Epifanio Mcgowan Work Phone: [facility] Work Phone: Start: 01-08-2023 Refill Emmanuel Sparks MD Work Phone: Cardiology Comment on above: Refill Request Start: 12-09-2022 Office outpatient vi sit 15 minutes Epifanio Mcgowan [facility] Start: 12-09-2022 End: 12-09-2022 Telemedicine consultation with patient Emmanuel Sparks MD Work Phone: [facility] Start: 12-09-2022 End: 12-09-2022 ambulatory Emmanuel Sparks MD Work Phone: [employer] Other Comment on above: Chronic systolic hea rt failure (HCC) (Primary Dx); Ischemic cardiomyopathy; Coronary artery disease involving northern [place] coronary artery of [place] heart without angina pectoris; Type 1 diabetes mellitus with diabetic polyneuropathy (HCC); Dyslipidemia; Peripheral vascular disease, unspecified (HCC); Obesity, Class I, BMI 30-34.9 Start: 11-17-2022 End: 11-17-2022 ambulatory Epifanio Mcgowan Other [employer] Other Start: 11-17-2022 Office outpatient vi sit 15 minutes Epifanio Juan M [facility] Start: 11-17-2022 Telephone encounter Epifanio CALDERÓN [facility] Start: 10-18-2022 Telephone encounter Suzi Saxena [facility] Start: 10-18-2022 End: 10-18-2022 Patient encounter procedure DO Epifanio Mcgowan Work Phone: [facility] Work Phone: Start: 10-18-2022 End: 10-18-2022 ambulatory DO Epifanio Mcgowan Work Phone: [employer] Other Start: 09-21-2022 Refill Emmanuel Sparks MD Work Phone: Cardiology Comment on above: Rx Refills Start: 09-15-2022 End: 09-15-2022 ambulatory Epifanio Mcgowan Other [employer] Other Start: 09-15-2022 Office outpatient vi sit 25 minutes Epifanio Mcgowan [facility] Start: 09-15-2022 Telephone encounter Epifanio CALDERÓN [facility] Start: 09-10-2022 End: 09-10-2022 Patient encounter procedure Emmanuel Sparks MD Work Phone: Cardiology Comment on above: Chronic systolic hea rt failure (HCC); Ischemic cardiomyopathy; Coronary artery disease involving northern [place] coronary artery of [place] heart without angina pectoris; Type 1 diabetes mellitus with diabetic polyneuropathy (HCC); Dyslipidemia; Peripheral vascular disease, unspecified (HCC) Start: 09-10-2022 End: 09-10-2022 Patient encounter procedure Hvi Discharge Echo J3-5 Work Phone: Vascular Medicine Comment on above: Chronic systolic hea rt failure (HCC); Ischemic cardiomyopathy; Coronary artery disease involving northern [place] coronary artery of [place] heart without angina pectoris Start: 08-19-2022 Refill Emmanuel Sparks MD Work Phone: Cardiology Comment on above: Refill Request Start: 07-26-2022 End: 07-26-2022 ambulatory Epifanio Mcgowan Other [employer] Other Start: 07-26-2022 Nursing evaluation o f patient and report Epifanio Mcgowan [facility] Start: 07-26-2022 Telephone encounter Tondra Mapus [facility] Start: 07-13-2022 (DM) [facility] Start: 07-13-2022 End: 07-13-2022 ambulatory Tondra Mapus Other [employer] Other Start: 04-06-2022 (PUMP/CGM) Pump / Sensor Tondra Patriciaus [facility] Start: 04-06-2022 End: 04-06-2022 ambulatory Tondra Mapus Other [employer] Other Start: 03-17-2022 End: 03-17-2022 ambulatory Epifanio Mcgowan Other [employer] Other Start: 03-17-2022 Patient encounter procedure Epifanio Mcgowan [facility] Start: 02-26-2022 Orders Only Emmanuel Sparks MD Work Phone: Cardiology Comment on above: Chronic systolic hea rt failure (HCC) (Primary Dx); Ischemic cardiomyopathy Start: 02-18-2022 End: 02-18-2022 ambulatory Tondra Mapus Other [employer] Other Start: 02-18-2022 Telephone encounter Tondra Mapus [facility] Start: 01-21-2022 End: 01-21-2022 ambulatory Emmanuel Sparks MD Work Phone: Cardiology Comment on above: Ischemic cardiomyopa thy (Primary Dx); Chronic systolic heart failure (HCC); Coronary artery disease involving northern [place] coronary artery of northern [place] heart without angina pectoris; Type 1 diabetes mellitus with diabetic polyneuropathy (HCC); Dyslipidemia Start: 01-21-2022 End: 01-21-2022 Telemedicine consultation with patient Emmanuel Sparks MD Work Phone: [facility] Start: 12-29-2021 Telephone encounter Emmanuel Sparks MD Work Phone: Cardiology Comment on above: Outside Labs Receive d 12/28 Start: 12-28-2021 (PUMP/CGM) Pump / Sensor Tondra Patriciaus [facility] Start: 12-28-2021 End: 12-28-2021 ambulatory Tondra Mapus Other [employer] Other Start: 12-28-2021 Telephone encounter Emmanuel Sparks MD Work Phone: Cardiology Comment on above: Counseling (/) Start: 12-24-2021 End: 12-24-2021 ambulatory DO Epifanio Mgcowan Work Phone: [facility] Work Phone: Start: 12-24-2021 End: 12-24-2021 Patient encounter procedure DO Epifanio Mcgowan Work Phone: [facility] [place] Start: 11-30-2021 End: 11-30-2021 Patient encounter procedure Xiang KEENAN [facility] Start: 11-04-2021 End: 11-04-2021 Patient encounter procedure DO Epifanio Mcgowan Work Phone: [facility] [place] Start: 10-16-2021 End: 10-16-2021 Patient encounter procedure Emmanuel Sparks MD Work Phone: Cardiology Comment on above: Chronic systolic hea rt failure (HCC) (Primary Dx); Ischemic cardiomyopathy; Coronary artery disease involving northern [place] coronary artery of [place] heart without angina pectoris; Obesity, Class I, BMI 30-34.9; Type 1 diabetes mellitus with diabetic polyneuropathy (HCC); Dyslipidemia Start: 09-23-2021 Refill Emmanuel Sparks MD Work Phone: Cardiology Comment on above: Refill Request Start: 09-16-2021 Registered Recurring DO [place] [facility] Start: 07-13-2021 End: 07-13-2021 ambulatory Tondra Mapus Other [employer] Other Start: 07-13-2021 Telephone encounter Tondra Mapus [facility] Start: 05-30-2021 ambulatory Emmanuel Sparks MD Work Phone: Cardiology Comment on above: Weight gain Start: 05-21-2021 (PUMP/CGM) Pump / Sensor Tondra Mapus [facility] Start: 05-21-2021 End: 05-21-2021 ambulatory Tondra Mapus Other [employer] Other Start: 04-21-2021 End: 04-21-2021 ambulatory Tondra Mapus Other [employer] Other Start: 04-21-2021 Telephone encounter Tondra Mapus [facility] Start: 04-20-2021 End: 04-20-2021 ambulatory Tondra Mapus Other [employer] Other Start: 04-20-2021 Telephone encounter Tondra Mapus [facility] Start: 04-13-2021 Adult health examination Tondra Mapus Other [employer] Other Start: 02-11-2021 (PUMP/CGM) Pump / Sensor Tondra Mapus [facility] Start: 02-11-2021 End: 02-11-2021 ambulatory Tondra Mapus Other [employer] Other Start: 02-11-2021 Telephone encounter Tondra Mapus [facility] Start: 01-08-2021 Nursing evaluation o f patient and report [facility]ond[facility] Start: 11-19-2020 End: 11-19-2020 ambulatory Tondra Mapus Other [employer] Other Start: 11-19-2020 Telephone encounter Tondra Mapus [facility] Start: 08-07-[address] EPIFANIO MCGOWAN Facili ty:H1 Procedures Date Procedure Procedure Detail Performing Clinician Start: 09-21-2023 Antibody screen EPIFANIO MCGOWAN Comment on above: Order Comment: Specimen Type: BLOOD SPEC IMENOrdering Facility: [facility] Address: [address] [place] [address] Performed By: #### T SCR ####CC MAIN BLOOD BANKCLIA [id number] [address] Start: 09-18-2023 Antibody screen EPIFANIO MCGOWAN Comment on above: Order Comment: Specimen Type: BLOOD SPEC IMENOrdering Facility: [facility] Address: [address] [place] [address] Performed By: #### T SCR ####CC MAIN BLOOD BANKCLIA [id number] [address] Start: 09-15-2023 DO Epifanio Mcgowan Work Phone: Start: 09-14-2023 Lorna MCGOWAN Start: 09-11-2023 Antibody screen EPIFANIO MCGOWAN Comment on above: Order Comment: Specimen Type: BLOOD SPEC IMENOrdering Facility: [facility] Address: [address] [place] [address] Performed By: #### T SCR ####CC MAIN BLOOD BANKCLIA [id number] [address] [address] [place] Start: 09-02-2023 Antibody screen Epifanio Mcgowan Comment on above: Order Comment: Date of Surgery: [id number] Result Comment: PERF ORMED BY: [facility] [address] PATHOLOGIST [employer] FEEDER AALIYAH BENITEZ M.D. Start: 08-17-2023 Plain chest X-ray DO Epifanio Mcgowan Work Phone: Start: 06-22-2023 Respiratory Panel (PCR) DO Epifanio Mcgowan Work Phone: Start: 06-03-2023 Esophagogastroduodenoscopy DO Epifanio B all Work Phone: Start: 05-16-2023 Acid fast bacilli culture DO Epifanio Ba ll Work Phone: Start: 05-16-2023 Investigation of transfusion reaction DO Epifanio Mcgowan Work Phone: Start: 05-16-2023 Mycology culture DO Epifanio Mcgowan Work Phone: Start: 05-16-2023 Mycology Susceptibility DO Epifanio Mcgowan Work Phone: Start: 05-16-2023 Plain chest X-ray DO Epifanio Mcgowan Work Phone: Start: 05-16-2023 Thoracentesis DO Epifanio Mcgowan Work Phone: Start: 09-10-2022 Echo tthrc r-t 2d w/wom-mode compl spec&colr d Emmanuel Sparks MD Work Phone: Start: 10-10-2021 Adult depression screening assessment Emmanuel Sparks MD Work Phone: Start: 07-14-2021 Adult depression screening assessment Emmanuel Sparks MD Work Phone: Start: 05-14-2021 History of amputation of foot Status post amputation of foot Emmanuel Sparks MD Work Phone: Start: 05-14-2021 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, right Emmanuel Sparks MD Work Phone: Start: 05-10-2021 Adult depression screening assessment Emmanuel Sparks MD Work Phone: Start: 10-22-2020 History of radiation therapy History of therapeutic radiation Emmanuel Sparks MD Work Phone: Start: 07-09-2020 Cystoscopy Xiang KEENAN Start: 01-29-2019 Cysto/UD Xiang KEENAN Start: 06-18-2015 Implantation of radioactive seed into prostate Xiang KEENAN Start: 12-24-2014 General examination of patient Suzi ortiz Other Start: 04-15-2014 Pre-surgery evaluation Suzi Saxena Other Start: 04-15-2014 Preoperative cardiovascular examination Suzi Saxena Other Start: 10-04-2011 Vasectomy Xiang KEENAN [facility] Start: 01-18-2011 Transrectal biopsy of prostate using ultrasound guidance Xiang KEENAN Comment on above: 07/20/13, 03/03/15 Amputation of toe Xiang Barrett Comment on above: 2 Toes on Rt Foot Catheterization of b oth left and right heart Xiang KEENAN End: 02-17-2022 Depression screening Suzi Saxena Other Placement of stent Xiang VALENTIN Placement of stent i n cardiac conduit Xiang IMAGINATE - [employer] Surgical procedure o n eye proper using laser Xiang KEENAN [facility] Plan of Treatment Date Care Activity Detail Author Start: 08-06-2030 Urine microalbumin profile DTa P,Tdap,Td Vaccine (3 - Td or Tdap) [facility] Start: 07-25-2030 Urine microalbumin profile DTA P,TDAP,TD (2 - Td or Tdap) [facility] Start: 09-27-2024 Complete blood count Hemoglobin/Will tocrit [facility] Start: 09-27-2024 Creatinine measurement Serum Creatin ine [facility] Start: 09-25-2024 Complete blood count Hemoglobin/Will tocrit [facility] Start: 09-25-2024 Creatinine measurement Serum Creatin ine [facility] Start: 09-15-2024 Creatinine measurement Serum Creatin ine [facility] Start: 09-07-2024 Diabetic foot examination Diabetic F oot Exam [facility] Start: 03-07-2024 Hemoglobin A1c measurement HbA1C [facility] Start: 12-06-2023 End: 12-06-2023 Patient encounter procedure Cardiology Comment on above: OPEN HEART Start: 12-06-2023 End: 12-06-2023 ambulatory [facility] J1-4 Draw Station Comment on above: LAB OPEN HEART Start: 11-13-2023 Influenza vaccination Influenza Vacc ine (#1) [facility] Start: 09-26-2023 End: 12-26-2023 Basic metabolic 2000 panel - Serum or Plasma BASIC METABOLIC PANEL Lab Routine Chronic systolic heart failure (HCC) Expected: 09/26/2023, Expires: 12/26/2023 [facility] Comment on above: Expected: 09/26/2023 , Expires: 12/26/2023 Start: 09-26-2023 End: 12-26-2023 CBC panel - Blood by Automated count COMPLETE BLOOD COUNT Lab Routine Chronic systolic heart failure (HCC) Expected: 09/26/2023, Expires: 12/26/2023 [facility] Comment on above: Expected: 09/26/2023 , Expires: 12/26/2023 Start: 09-19-2023 End: 09-19-2023 Anesthesia consultation 09/19/2023 6:30 AM EDT Anesthesia Event Admitting [address] [place] [address] Epifanio Gonzáles MD [address] [place], [place] [id number] Admitting Start: 09-19-2023 End: 09-19-2023 Cabg w/arterial graft single arterial graft BYPASS GRAFT ARTERY CORONARY ON-PUMP SINGLE CORONARY ARTERIAL GRAFT CAD, multiple vessel 09/19/2023 6:30 AM EDT [facility]ER LOOM[facility] CT & VAS Start: 09-19-2023 End: 09-19-2023 Evaluation and management of inpatient 09/19/2023 6:30 AM EDT - 09/19/2023 12:44 PM EDT Surgery Admitting [address] [place] [address] Oli Babin MD [id number] [place] [address] CABG L-LAD +/-SVG-CX (2) BYPASS GRAFT ARTERY CORONARY ON-PUMP SINGLE CORONARY ARTERIAL GRAFT Admitting Comment on above: CABG L-LAD +/-SVG-CX (2) BYPASS GRAFT ARTERY CORONARY ON-PUMP SINGLE CORONARY ARTERIAL GRAFT Start: 08-19-2023 End: 11-18-2023 Comprehensive metabolic 2000 panel - Serum or Plasma COMP METABOLIC PANEL Lab Routine Chronic systolic heart failure (HCC) Expected: 08/19/2023, Expires: 11/18/2023 [facility] Work Phone: Comment on above: Expected: 08/19/2023 , Expires: 11/18/2023 Start: 08-19-2023 End: 11-18-2023 Natriuretic peptide.B prohormone N-Terminal [Mass/volume] in Serum or Plasma NT PRO BNP Lab Routine Chronic systolic heart failure (HCC) Expected: 08/19/2023, Expires: 11/18/2023 [facility] Work Phone: Comment on above: Expected: 08/19/2023 , Expires: 11/18/2023 Start: 08-19-2023 End: 08-19-2023 ambulatory 08/19/2023 10:00 AM EDT Results Only [facility] [address] [place] [address] [place] [address] [facility] Start: 06-24-2023 [facility] Start: 06-23-2023 [facility] Start: 06-22-2023 Consultation [facility] Start: 06-22-2023 End: 06-22-2023 [facility] Start: 06-22-2023 Hospital admission [facility] Start: 06-22-2023 Plain chest X-ray XR chest 1V portab le [facility] Start: 06-22-2023 XR Chest Single view [facility] Start: 06-06-2023 Patient referral [facility] Work Phone: Start: 06-03-2023 [facility] Start: 05-16-2023 Acid Fast Bacilli Cu lture & Smear Acid Fast Bacilli Culture & Smear [facility] Start: 05-16-2023 Mycology Susceptibility Mycology Marisela ceptibility [facility] Start: 05-16-2023 [facility] Start: 05-16-2023 [facility] Start: 03-26-2023 Creatinine measurement Serum Creatin ine [facility] Start: 03-26-2023 SERUM CREATININE SERUM CREATININE Cl [facility] Start: 03-14-2023 Advance Directive Discussion Advance Directive Discussion [facility] Start: 03-14-2023 Behavioral Health Screening Behavioral Health Screening [facility] Start: 03-14-2023 Depression Assessment Depression Ass essment [facility] Start: 11-12-2022 Covid-19 Vaccine () Covid-19 Vaccine () [facility] Start: 11-12-2022 Influenza vaccination C [facility] Start: 10-16-2022 SERUM CREATININE SERUM CREATININE Cl [facility] Start: 10-10-2022 Adult depression scr eening assessment DEPRESSION SCREENING [facility] Start: 09-23-2022 PROSTATE CANCER SCRE ENING DISCUSSION PROSTATE CANCER SCREENING DISCUSSION [facility] Start: 07-14-2022 Adult depression scr eening assessment DEPRESSION SCREENING [facility] Start: 05-10-2022 Adult depression scr eening assessment DEPRESSION SCREENING [facility] Start: 04-24-2022 COVID-19 VACCINE (7 - Moderna series) COVID-19 VACCINE (7 - Moderna series) [facility] Start: 03-14-2022 ADVANCE DIRECTIVE DISCUSSION ADVANCE DIRECTIVE DISCUSSION [facility] Start: 03-14-2022 End: 05-14-2022 Comprehensive metabolic 2000 panel - Serum or Plasma COMP METABOLIC PANEL Lab Routine Chronic systolic heart failure (HCC) Ischemic cardiomyopathy Expected: 03/14/2022, Expires: 05/14/2022 [facility] Work Phone: Comment on above: Expected: 03/14/2022 , Expires: 05/14/2022 Start: 03-14-2022 DEPRESSION ASSESSMENT DEPRESSION ASS ESSMENT [facility] Start: 03-14-2022 End: 05-14-2022 Natriuretic peptide.B prohormone N-Terminal [Mass/volume] in Serum or Plasma NT PRO BNP Lab Routine Chronic systolic heart failure (HCC) Ischemic cardiomyopathy Expected: 03/14/2022, Expires: 05/14/2022 [facility] Work Phone: Comment on above: Expected: 03/14/2022 , Expires: 05/14/2022 Start: 11-12-2021 Influenza vaccination INFLUENZA (#1) [facility] Start: 10-16-2021 End: 12-16-2021 Comprehensive metabolic 2000 panel - Serum or Plasma [facility] Work Phone: Comment on above: Expected: 10/16/2021 , Expires: 12/16/2021 Start: 10-16-2021 End: 12-16-2021 Natriuretic peptide.B prohormone N-Terminal [Mass/volume] in Serum or Plasma [facility] Work Phone: Comment on above: Expected: 10/16/2021 , Expires: 12/16/2021 Start: 10-03-2021 HEMOGLOBIN/HEMATOCRIT HEMOGLOBIN/HEM ATOCRIT [facility] Start: 10-03-2021 Hepatitis B surface antibody level LDL CHOLESTEROL [facility] Start: 04-05-2021 Hemoglobin A1c measurement HbA1C [facility] Start: 04-05-2021 Hemoglobin A1c/Hemoglobin.total in Blood HBA1C [facility] Start: 03-14-2021 ADVANCE DIRECTIVE DISCUSSION ADVANCE DIRECTIVE DISCUSSION [facility] Start: 03-14-2021 DEPRESSION ASSESSMENT DEPRESSION ASS ESSMENT [facility] Start: 01-04-2020 SHINGRIX VACCINE (2 of 2) TAYLOR GRIX VACCINE (2 of 2) [facility] Start: 2013 Hepatitis B Vaccine (1 of 3 - Risk 3-dose series) Hepatitis B Vaccine (1 of 3 - Risk 3-dose series) [facility] Start: 2013 RSV Vaccine (1 - 1-d ose 60+ series) RSV Vaccine (1 - 1-dose 60+ series) [facility] Start: 1998 COLOGUARD (FIT-DNA) COLOGUARD (FIT-D NA) [facility] Start: 1998 Colonoscopy COLONOSCOPY [facility] Start: 1998 COLORECTAL CANCER SCREENING COLORECTAL CANCER SCREENING [facility] Start: [address] COLONOGRAPHY [facility] Start: 1998 FECAL OCCULT BLOOD FECAL OCCULT BLOO D [facility] Start: 1998 Screening for malign ant neoplasm of colon [facility] Start: 1998 SIGMOIDOSCOPY SIGMOIDOSCOPY [facility] Start: 07-25-1983 Zoledronic acid therapy Alpha- 1 Antitrypsin Deficiency Screening [facility] Start: 1973 Hepatitis B Vaccine (1 of 3 - Risk Dialysis 4-dose series) Hepatitis B Vaccine (1 of 3 - Risk Dialysis 4-dose series) [facility] Start: 07-25-1971 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 ANTONETTE DISEASE VISIT ANNUAL PCP TEAM CHRONIC DISEASE VISIT [facility] Start: 07-25-1971 Anxiety Screening Anxiety Screening [facility] Start: 07-25-1971 BP Controlled (<130/80) BP Controlle d (<130/80) [facility] Start: 07-25-1971 Depression Screening Depression Scre ening [facility] Start: 07-25-1971 HEPATITIS C SCREENING HEPATITIS C [facility] Start: 07-25-1971 Hepatitis C screening Hepatitis C [facility] Start: 07-25-1963 3 comp foot exam completed DIABETIC FOOT EXAM [facility] Start: 07-25-1963 Diabetic foot examination Diabetic F oot Exam [facility] Start: 07-25-1963 Glaucoma screening Dilated Retinal E xam [facility] Start: 07-25-1963 Hepatitis B screening URINE ALBUMIN:CREATININE RATIO [facility] Start: 07-25-1963 Hepatitis C antibody , confirmatory test DILATED RETINAL EXAM [facility] Start: 1955 ABDOMINAL AORTIC ANE URYSM SCREENING ABDOMINAL AORTIC ANEURYSM SCREENING [facility] Start: 1955 Abdominal aortic ane urysm screening Abdominal Aortic Aneurysm Screening [facility] Anion gap measurement [facility] Basophils [#/volume] in Blood by Automated count [facility] Basophils/100 leukoc ytes in Blood by Automated count [facility] End: 09-25-2024 ECG COMPLETE ECG COMPLETE ECG Routine Chronic systolic heart failure (HCC) 1 Occurrences starting 09/26/2023 until 09/25/2024 [facility] Work Phone: Comment on above: 1 Occurrences starti ng 09/26/2023 until 09/25/2024 End: 05-18-2024 Echocardiography ECHO Cardiology Routine Chronic systolic heart failure (HCC) 1 Occurrences starting 05/19/2023 until 05/18/2024 [facility] Work Phone: Comment on above: 1 Occurrences starti ng 05/19/2023 until 05/18/2024 End: 09-25-2024 Echocardiography ECHO Cardiology Routine Chronic systolic heart failure (HCC) 1 Occurrences starting 09/26/2023 until 09/25/2024 [facility] Comment on above: 1 Occurrences starti ng 09/26/2023 until 09/25/2024 EKG 12 channel panel [facility] Eosinophils/100 leuk ocytes in Blood by Automated count [facility] Erythrocyte distribu tion width [Ratio] by Automated count [facility] Erythrocytes [#/volu me] in Blood [facility] Fungus # 2 identifie d in Unspecified specimen by Culture [facility] Fungus # 3 identifie d in Unspecified specimen by Culture [facility] Fungus # 4 identifie d in Unspecified specimen by Culture [facility] Fungus identified in Unspecified specimen by Culture [facility] Hematocrit [Volume Fraction] of Blood [facility] Hemoglobin [Mass/vol ume] in Blood [facility] Leukocytes [#/volume ] corrected for nucleated erythrocytes in Blood by Automated coun [facility] Leukocytes [#/volume ] in Blood [facility] Lymphocytes [#/volum e] in Blood by Automated count [facility] Lymphocytes/100 leuk ocytes in Blood by Automated count [facility] MCH [Entitic mass] b y Automated count [facility] MCHC [Mass/volume] b y Automated count [facility] MCV [Entitic volume] by Automated count [facility] Monocytes [#/volume] in Blood by Automated count [facility] Monocytes/100 leukoc ytes in Blood by Automated count [facility] Mycobacterium sp identified in Unspecified specimen by Organism specific culture [facility] Neutrophils [#/volum e] in Blood by Automated count [facility] Neutrophils/100 leuk ocytes in Blood by Automated count [facility] Nucleated erythrocyt es [Presence] in Blood by Automated count [facility] Patient Education [facility] Work Phone: Patient referral [facility] Work Phone: Platelet mean volume [Entitic volume] in Blood by Automated count [facility] Platelets [#/volume] in Blood [facility] Ultrasonic guidance for thoracentesis [facility] XR Chest 2 Views [facility] XR Chest 2 Views [facility] XR Chest 2 Views [facility] [place] [facility] Immunizations Immunization Date Immunization Notes Care Provider [facility] 11-01-2022 influenza, high dose seasonal, preservative-free Epifanio Mcgowan Other [employer] Other 11-01-2022 influenza (HD-IIV4) vaccine, age 65+ yr, high dose, quadrivalent, PF (FLUZONE HIGH-DOSE) Emmanuel Sparks MD Work Phone: [facility] Work Phone: 11-01-2022 influenza nasal, unspecified formulation Emmanuel Sparks MD Work Phone: [facility] Work Phone: 11-01-2022 influenza virus vaccine, unspecified formulation DO Epifanio Mcgowan Work Phone: [facility] 11-01-2022 zoster vaccine recombinant Emmanuel Sparks MD Work Phone: [facility] Work Phone: 12-22-2021 COVID-19 original vaccine, age 12+ yr, monovalent ([employer] - PURPLE TOP) Emmanuel Sparks MD Work Phone: [facility] Work Phone: 04-14-2021 COVID-19 Vaccine Moderna - Documentation Purposes Only Suzi Saxena Other [facility] 02-03-2021 SARS-CoV-2 (COVID-19 ) mRNA-1273 vaccine Xiang RICE [facility] 12-01-2020 influenza nasal, unspecified formulation Emmanuel Sparks MD Work Phone: [facility] Work Phone: 12-01-2020 influenza virus vaccine, unspecified formulation Xiang KEENAN [facility] 12-01-2020 influenza, high-dose , quadrivalent vaccine (FLUZONE HIGH DOSE QUADRIVALENT) Emmanuel Sparks MD Work Phone: [facility] Work Phone: 08-06-2020 diphtheria, tetanus toxoids and acellular pertussis vaccine, unspecified formulation Tondratul Gomezus Other [facility] 07-25-2020 tetanus toxoid, redu kimberly diphtheria toxoid, and acellular pertussis vaccine, adsorbed Emmanuel Sparks MD Work Phone: [facility] Work Phone: 06-20-2020 COVID-19 vaccine, fu ll dose (MODERNA) Emmanuel Sparks MD Work Phone: [facility] Work Phone: 05-30-2020 COVID-19 vaccine, fu ll dose (MODERNA) Emmanule Sparks MD Work Phone: [facility] Work Phone: 05-23-2020 COVID-19 Vaccine Moderna - Documentation Purposes Only Alfadratul Gomezus Other [facility] Work Phone: 05-10-2020 SARS-CoV-2 (COVID-19 ) mRNA-1273 vaccine Xiang RICE [facility] 04-25-2020 COVID-19 Vaccine Moderna - Documentation Purposes Only Suzi Saxena Other [facility] Work Phone: 12-13-2019 influenza virus vaccine, unspecified formulation Xiang KEENAN [facility] 11-13-2019 influenza nasal, unspecified formulation Emmanuel Sparks MD Work Phone: [facility] Work Phone: 11-13-2019 influenza virus vaccine, unspecified formulation Xiang KEENAN [facility] 11-13-2019 influenza, high dose seasonal, preservative-free Emmanuel Sparks MD Work Phone: [facility] Work Phone: 11-13-2019 pneumococcal conjuga te vaccine, 13 valent Emmanuel Sparks MD Work Phone: [facility] Work Phone: 11-09-2019 zoster vaccine recombinant Emmanuel Sparks MD Work Phone: [facility] Work Phone: 12-12-2018 influenza virus vaccine, live, attenuated, for intranasal use [facility] 11-01-2018 influenza nasal, unspecified formulation Emmanuel Sparks MD Work Phone: [facility] Work Phone: 11-01-2018 influenza virus vaccine, split virus (incl. purified surface antigen) Suzi Saxena Other [employer] Other 11-01-2018 influenza virus vaccine, unspecified formulation DO Epifanio Mcgowan Work Phone: [facility] 11-01-2018 pneumococcal polysaccharide vaccine, 23 valent Emmanuel Sparks MD Work Phone: [facility] Work Phone: 11-19-2017 influenza nasal, unspecified formulation Emmanuel Sparks MD Work Phone: [facility] Work Phone: 11-19-2017 influenza virus vaccine, unspecified formulation Xiang KEENAN [facility] 11-19-2017 influenza, injectabl e, quadrivalent, preservative free Emmanuel Sparks MD Work Phone: [facility] Work Phone: 04-27-2016 pneumococcal conjuga te vaccine, 13 valent Emmanuel Sparks MD Work Phone: [facility] Work Phone: 04-27-2016 pneumococcal Conjuga te, unspecified formulation; Translations: [Need for prophylactic vaccination against Streptococcus pneumoniae (pneumococcus)] Tondra Mapus Other [employer] [facility] [employer] Other 01-27-2016 influenza, injectabl e, quadrivalent, preservative free Emmanuel Sparks MD Work Phone: [facility] 12-24-2014 influenza nasal, unspecified formulation Emmanuel Sparks MD Work Phone: [facility] Work Phone: 12-24-2014 influenza virus vaccine, split virus (incl. purified surface antigen) Tondra Mapus Other [employer] [facility] [employer] Other 12-24-2014 influenza virus vaccine, unspecified formulation DO Epifanio Mcgowan Work Phone: [facility] 04-26-2013 pneumococcal polysaccharide vaccine, 23 valent Tondra Mapus Other [facility] 11-22-2012 tetanus and diphther ia toxoids, adsorbed, preservative free, for adult use (5 Lf of tetanus toxoid and 2 Lf of diphtheria toxoid) Tondra Mapus Other [facility] Payers Date Payer Category Payer Unknown MMO MMO MEDICARE SUPPLEMENT [id number] 2020-Present [phone] [address] [place] [address] Indemnity [id number] 2020 Unknown MMO MMO MEDICARE SUPPLEMENT [id number] 2020-Present [phone] [address] [place] [address] Indemnity [id number] 2018 Medicare MEDICARE MEDICAR E A AND B [id number] 2018-Present [phone] [address] [address] [place] [address] Medicare [id number] 2018 Medicare MEDICARE MEDICAR E A AND B [id number] 2018-Present [phone] [address] [address] [place] [address] Medicare [id number] 2017 Medicare [id number] 2017 Unknown [id number] 1959 Self-pay 1955 Unknown [id number]. 593 1955 Unknown [id number] [id number]. 727 1953 Unknown [id number] [id number]. 727 1953 Unknown [id number] [id number]. 1259 1953 Unknown [id number] [id number]. 1259 1953 Unknown [id number] [id number]. 1259 1953 Unknown [id number] [id number]. 1259 Private Health Insurance [id number] Private Health Insurance [id number] Unknown [id number] [id number]. 531 Unknown [id number] [id number]. 531 Unknown [id number] [id number]. 531 Unknown [id number] [id number]. 531 Unknown [id number] [id number]. 531 Unknown [id number] [id number]. 531 Unknown [id number] [id number]. 531 Unknown [id number]. 531 Social History Date Type Detail Facility Start: 10-03-2020 End: 06-22-2023 Tobacco smoking status NHIS Occasional tobacco smoker [facility] History of tobacco use Cigar Smoker [facility] Start: 10-03-2020 End: 05-19-2023 Alcohol intake Current drinker of alcohol (finding) [facility] Start: 10-03-2020 History SDOH Alcohol Comment rare glass of scotch [facility] Start: 10-03-2020 Tobacco Comment very rare cigar (one so far in 2020) [facility] Start: 1955 Sex Assigned At Male [facility] Start: 04-14-2021 End: 10-16-2021 Exposure to SARS-CoV-2 (event) Not sure [facility] Start: 10-03-2020 End: 09-13-2023 Sex Assigned At [employer] Other Start: 03-08-2021 End: 04-04-2023 Tobacco smoking status NHIS Never smoked tobacco (finding) [facility] Start: 11-24-2020 End: 09-02-2023 Tobacco smoking status Smoker (finding) [facility] [employer] Tobacco smoking status Never [facility] Start: 10-03-2020 Tobacco use and exposure Smokeless tobacco non-user [facility] Start: 10-03-2020 End: 09-13-2023 History of Social function [facility] Start: 09-27-2020 Gender identity Identifies as male gender (finding) [facility] Start: 09-27-2020 Sexual orientation Heterosexual (finding) [facility] Has the [email or web address], oil, or water company threatened to shut off services in your home in past 12Mo No [facility] Work Phone: (I/We) worried mick er (my/our) food would run out before (I/we) got money to buy more. Never true [facility] Medical Equipment Procedure Code Equipment Code Equipment Original Text Equipment Identifier Dates Thoracotomy [id number] FDA Start: 04-15-2020 Thoracotomy [id number] FDA Start: 04-15-2020 Thoracotomy [id number] FDA Start: 04-15-2020 Thoracotomy [id number] FDA Start: 04-15-2020 Thoracotomy [id number] FDA Start: 04-15-2020 Thoracotomy [id number] FDA Start: 04-15-2020 Thoracotomy [id number] FDA Start: 04-15-2020 Thoracotomy [id number] FDA Start: 04-15-2020 Thoracotomy [id number] FDA Start: 04-15-2020 Thoracotomy [id number] FDA Start: 04-15-2020 Thoracotomy [id number] FDA Start: 04-15-2020 Thoracotomy [id number] FDA Start: 04-15-2020 Thoracotomy [id number] FDA Start: 04-15-2020 Thoracotomy [id number] FDA Start: 04-15-2020 Thoracotomy FDA Start: 04-15-2020 Thoracotomy FDA Start: 04-15-2020 AMNIOFILL 250MG FDA Start: 05-04-2019 [id number] FDA Start: 08-09-2019 [id number] FDA Start: 08-09-2019 AMNIOFILL 250MG FDA Start: 05-04-2019 [id number] FDA Start: 08-09-2019 AMNIOFILL 250MG FDA Start: 05-04-2019 [id number] FDA Start: 08-09-2019 AMNIOFILL 250MG FDA Start: 05-04-2019 [id number] FDA Start: 08-09-2019 AMNIOFILL 250MG FDA Start: 05-04-2019 [id number] FDA Start: 08-09-2019 blood sugar diag nostic (Contour Next Test Strips) Start: 05-04-2023 AMNIOFILL 250MG FDA Start: 05-04-2019 [id number] FDA Start: 08-09-2019 blood sugar diag nostic (Contour Next Test Strips) Start: 05-04-2023 AMNIOFILL 250MG FDA Start: 05-04-2019 [id number] FDA Start: 08-09-2019 blood sugar diag nostic (Contour Next Test Strips) Start: 05-04-2023 AMNIOFILL 250MG FDA Start: 05-04-2019 [id number] FDA Start: 08-09-2019 blood sugar diag nostic (Contour Next Test Strips) Start: 05-04-2023 AMNIOFILL 250MG FDA Start: 05-04-2019 [id number] FDA Start: 08-09-2019 blood sugar diag nostic (Contour Next Test Strips) Start: 05-04-2023 AMNIOFILL 250MG FDA Start: 05-04-2019 [id number] FDA Start: 08-09-2019 blood sugar diag nostic (Contour Next Test Strips) Start: 05-04-2023 AMNIOFILL 250MG FDA Start: 05-04-2019 [id number] FDA Start: 08-09-2019 blood sugar diag nostic (Contour Next Test Strips) Start: 05-04-2023 AMNIOFILL 250MG FDA Start: 05-04-2019 [id number] FDA Start: 08-09-2019 blood sugar diag nostic (Contour Next Test Strips) Start: 05-04-2023 AMNIOFILL 250MG FDA Start: 05-04-2019 [id number] FDA Start: 08-09-2019 blood sugar diag nostic (Contour Next Test Strips) Start: 05-04-2023 AMNIOFILL 250MG FDA Start: 05-04-2019 [id number] FDA Start: 08-09-2019 blood sugar diag nostic (Contour Next Test Strips) Start: 05-04-2023 FDA Start: 05-04-2019 FDA Start: 08-09-2019 FDA Start: 05-04-2019 FDA Start: 08-09-2019 Goals Date Patient Goal Desired Activity /State Personal health goal Functional Status Date Assessment Result Facility 02-22-2023 Functional Status N/A [facility] 11-30-2021 Functional Status N/A [facility] Clinical Notes 07-13-2019 to 09-29-2023 Telephone Encounter - Marissa Rayo RN - 09/29/2023 10:54 AM EDTTelephone Encounter - Marissa Rayo RN - 09/29/2023 10:54 AM Pat Delaney RRT - 09/16/2023 2:24 PM EDT Note Date & Type Note Facility 09-29-2023 Telephone encounter Note 1. Have you noticed any increase in shortness of breath since you left the hospital? no 2. Have you noticed any increased swelling in your feet, ankles, or belly? Skip for vascular pts no 3. Have you gained more than 2-3 pounds since discharge? Skip for vascular & EP pts no 4. Have you noticed any change in your incision, wound, IV sites since you were discharged as we want you to be aware of any signs of infection (fevers, chills, redness, warmth, swelling, increased tenderness, discharge)? no 5. Are you having any increased pain since discharge? If yes: What type of pain and where? (pressure, sharp pain, dull pain, etc.) No 6. Have you had any unplanned trips to the emergency department or hospital since you were discharged? If yes - why? no 7. Did you fill all of the prescribed medications? If no, do you need help filling your prescription? (Figure out why they re not filled) If no, plan for correction is: pt states getting medications today when he has a ride. 8. Do you have any questions about your medications? No 9. Do you have a doctor s appointment scheduled or is someone working on getting you a follow-up appointment? No-will call right after this call Additional Comments: Pt instructed to contact 24-hour nurse hotline for any questions or concerns. Pt verbalized understanding. PD nurse confirmed/verified patient's and full name. All clear. Closing statement given. Marissa Rayo RN [facility] 09-29-2023 Miscellaneous Notes 1. Have you noticed any increase in shortness of breath since you left the hospital? no 2. Have you noticed any increased swelling in your feet, ankles, or belly? Skip for vascular pts no 3. Have you gained more than 2-3 pounds since discharge? Skip for vascular & EP pts no 4. Have you noticed any change in your incision, wound, IV sites since you were discharged as we want you to be aware of any signs of infection (fevers, chills, redness, warmth, swelling, increased tenderness, discharge)? no 5. Are you having any increased pain since discharge? If yes: What type of pain and where? (pressure, sharp pain, dull pain, etc.) No 6. Have you had any unplanned trips to the emergency department or hospital since you were discharged? If yes - why? no 7. Did you fill all of the prescribed medications? If no, do you need help filling your prescription? (Figure out why they re not filled) If no, plan for correction is: pt states getting medications today when he has a ride. 8. Do you have any questions about your medications? No 9. Do you have a doctor s appointment scheduled or is someone working on getting you a follow-up appointment? No-will call right after this call Additional Comments: Pt instructed to contact 24-hour nurse hotline for any questions or concerns. Pt verbalized understanding. PD nurse confirmed/verified patient's and full name. All clear. Closing statement given. Marissa Rayo RN documented in this encounter [facility] 09-28-2023 Note [facility] 09-27-2023 Note [facility] 09-27-2023 Note [facility] 09-26-2023 Note [facility] 09-26-2023 Note [facility] 09-25-2023 Note [facility] 09-24-2023 Note [facility] 09-24-2023 Note [facility] 09-24-2023 Note [facility] 09-24-2023 Note [facility] 09-23-2023 Note [facility] 09-22-2023 Note [facility] 09-21-2023 Note [facility] 09-21-2023 Note [facility] 09-20-2023 Note [facility] 09-20-2023 Note [facility] 09-19-2023 Note [facility] 09-19-2023 Note [facility] 09-19-2023 Note [facility] 09-19-2023 Note [facility] 09-19-2023 Note [facility] 09-18-2023 Note [facility] 09-17-2023 Note [facility] 09-16-2023 Note HNO ID: [id number] Author: PAT HOWARD RRT Service: ? Author Type: Registered Resp Therapist Type: Progress Notes Filed: 09/16/2023 14:25 Note Text: PULM FUNCTION: Provider: Nirmala Hernandez APRN.CNP Spirometry: 1 DLCO: 1 J1 [facility] 09-16-2023 History of Presen t illness Narrative PULM FUNCTION: Provider: Nirmala Hernandez APRN.CNP Spirometry: 1 DLCO: 1 J1 documented in this encounter [facility] 09-16-2023 Note HNO ID: [id number] Author: DAMIAN DOMINGUEZ DDS Service: ? Author Type: Resident Type: Progress Notes Filed: 09/16/2023 16:02 Note Text: See inpatient note for this encounter on 09/16/2023. Damian Dominguez DDS [facility] 09-16-2023 History of Presen t illness Narrative See inpatient note for this encounter on 09/16/2023. Damian Dominguez DDS documented in this encounter [facility] 09-16-2023 Note [facility] 09-15-2023 Note [facility] 09-15-2023 Note [facility] 09-14-2023 Note [facility] 09-14-2023 Note HNO ID: [id number] Author: ETHEL BOLES RRT Service: ? Author Type: Registered Resp Therapist Type: Progress Notes Filed: 09/14/2023 09:11 Note Text: PULM FUNCTION: Provider: Judi Agee APRN.CNP Spirometry: 1 DLCO: 1 [facility] 09-13-2023 Note [facility] 09-13-2023 Note [facility] 09-11-2023 Note [facility] 09-11-2023 Note [facility] 07-08-2023 Telephone encounter Note Call from pharmacy requesting refill. Requested Prescriptions Pending Prescriptions Disp Refills metoprolol succinate ER (TOPROL XL) 25 mg 24 hr tablet 45 tablet 3 Sig: Take 0.5 tablets by mouth once daily. torsemide (DEMADEX) 20 mg tablet 180 tablet 3 Sig: Take 2 tablets by mouth once daily. Patient last seen 05/19/23 Sathish Avilez [facility] 07-08-2023 Miscellaneous Notes Call from pharmacy requesting refill. Requested Prescriptions Pending Prescriptions Disp Refills metoprolol succinate ER (TOPROL XL) 25 mg 24 hr tablet 45 tablet 3 Sig: Take 0.5 tablets by mouth once daily. torsemide (DEMADEX) 20 mg tablet 180 tablet 3 Sig: Take 2 tablets by mouth once daily. Patient last seen 05/19/23 Sathish Avilez documented in this encounter [facility] 06-03-2023 Procedure note [facility] 05-19-2023 History of Presen t illness Narrative [facility] [place] Department of Cardiovascular Medicine VIRTUAL VIDEO VISIT ESTABLISHED OUTPATIENT VISIT SERVICE DATE: 05/19/2023 Patient: Ellis Braxton SERVICE TIME: 8:09 AM : 1955 This is a virtual video visit. It required patient-provider interaction for the medical decision making as documented below. Ellis Braxton has consented to this video encounter. I have communicated my name and active licensure. The patient's identity and physical location were verified at the time of this visit. Either the patient or their legal wireless sales representative has been informed of the risks and benefits of -- and alternatives to -- treatment through a remote evaluation and consents to proceed with the evaluation remotely. Ellis Braxton is a 67 year old man seen for follow-up. CHIEF COMPLAINT Follow-up HISTORY OF PRESENT ILLNESS Ellis Braxton is a 67 year old man with: 1. T1DM, diagnosed on 06/16/65, on insulin; A1c 6.2% per patient 2. CAD s/p STEMI and PCI 15 years ago 2005, 2011 ([place]), July 2019 (chest pain two stents), no stent cards, performed by Dr. Benítez at [facility]. Stents were all to the LAD 3. [...] lung and pleura are negative for malignancy Feeling pretty well. [place] Weight down to 240#. Doing things around the house. Doesn't have as much energy as he used to. Getting up and down fine. Maynard 25 Atorva 80 Entresto 0.5 tab of 24/26 mg twice a day Torsemide 40 mg daily Metoprolol XL 12.5 mg daily Aspirin 81 mg daily Last 2 Encounter Wt Readings: Date: Wt: [...] scotch Drug use: Never ALLERGIES Allergen Reactions Iodinated Contrast * Hives, Unknown Iodine Other: See Comments Pentazocine Anaphylaxis Other reaction(s): FLU-LIKE SYMPTOMS Other reaction(s): FLU-LIKE SYMPTOMS Other reaction(s): FLU-LIKE SYMPTOMS Talwin Compound Other: See Comments CURRENT MEDICATIONS spironolactone (ALDACTONE) 25 mg tablet take 1 tablet by mouth every day atorvastatin (LIPITOR) 80 mg tablet take 1 tablet by mouth everyday at bedtime sacubitril-valsartan (ENTRESTO) 24-26 mg tablet Take 0.5 tablets by mouth twice daily. torsemide (DEMADEX) 20 mg tablet Take 2 tablets by mouth once daily. metoprolol succinate ER (TOPROL XL) 25 mg 24 hr tablet TAKE 1/2 TABLET BY MOUTH ONCE DAILY alfuzosin SR (UROXATRAL) 10 mg 24 hr [...] Review of Systems Heart Failure (Submitted on 05/18/2023) Fever : No Night sweats: No Recent unintentional weight change: No Vision Disturbance: No Hearing Loss: No A cough: No Difficulty Breathing?: No Chest pain: No Leg Swelling: No Skipping or irregular heartbeats?: No Feel like passing out?: No Black tarry stools: No Nausea: No Diarrhea: No Swelling in your abdomen?: No Fill up quickly when you eat?: No Difficulty Urinating?: No Joint pain or stiffness: No Muscle aches: No A rash: No Dizziness: No Headaches: No PHYSICAL EXAMINATION: [...] normal without rhinorrhea OROPHARYNX: moist mucus membranes NECK: full ROM, no cervical LNs noted PATIENT ENTERED QUESTIONNAIRE SCORES PHQ-9 05/18/2023 PHQ-2 Score 0 PHQ-9 Score 0 PROMIS Global Health - (T-Scores - the mean of general population = 50. Five points is a clinically meaningful difference.) 05/18/2023 12/02/2022 06/24/2022 Physical T-Score 50.8 54.1 50.8 Mental T-Score 62.5 67.6 - Echo 09/10/22 Impression CONCLUSIONS: - Technically difficult exam [...] echocardiographic exam performed on 02/25/2021. Similar findings ASSESSMENT: Ellis Braxton is a 67 year old man with: 1. T1DM, diagnosed on 06/16/65, on insulin; A1c 6.2% per patient 2. CAD s/p STEMI and PCI 15 years ago 2005, 2011 ([place]), July 2019 (chest pain two stents), no stent cards, performed by Dr. Benítez at [facility]. Stents were all to the LAD 3. [...] PLAN (Active Outpatient Problems): Chronic systolic HFrEF: Maintain current medication regimen including 1/2 tab of ARNI 24/26 mg BID, metop XL 12.5 mg daily, torsemide 40 mg daily, kaya 25 mg daily. Not on SGLT2i due to T1DM. Follow-up in 3-4 months (Summer 2023) with repeat labs and echo same day I personally spent 22 minutes in total time involved in the management and care of this patient. Emmanuel Sparks MD May 19, 2023 7:58 AM documented in this encounter [facility] 05-19-2023 Note [facility] 04-04-2023 Evaluation note Encounter Date Diagnosis Assessment Notes Mar, Cervical spondylosis with radiculopathy (ICD-10 - M47.22) [employer] Other 01-08-2024 Evaluation note* Encounter Date Diagnosis Assessment Notes Treatment Notes Treatment Clinical Notes Mar, Cervical spondylosis with radiculopathy (ICD-10 - M47.22) [employer] Other 01-05-2024 Evaluation note* Encounter Date Diagnosis [...] ulcerations Fall precautions. Continue routine f/u w/ Contract Administration Specialist Mar, Primary hypertension (ICD-10 - I10) Mar, Hypercholesterolemia (ICD-10 - E78.00) Mar, Colon cancer screeni ng (ICD-10 - Z12.11) He is mildly anemic w/o s/s GIB. He denies change in appetite, weight or bowel habits. He denies heartburn, dysphagia, abdominal pain, melena or hematochezia Plan to refer for EGD and Colonoscopy Mar, Anemia, unspecified type (ICD-10 - D64.9) No s/s [facility] [employer] Other 12-28-2023 Evaluation note* Encounter Date Diagnosis Assessment Notes Treatment Notes Treatment Clinical Notes Feb, Lung density on x-ra y (ICD-10 - J98.4) Feb, Chronic HFrEF (heart failure with reduced ejection fraction) (ICD-10 - I50.22) Feb, Ischemic cardiomyopathy (ICD-10 - I25.5) [employer] Other 12-27-2023 Evaluation note* Encounter Date Diagnosis [...] impingement Feb, Atherosclerotic hear t disease of [place] coronary artery without angina pectoris (ICD-10 - [...] beta blockers, ANA LUISA/ARB/ARNI, MRA and SGLT-2 [employer] Other 12-27-2023 Evaluation note* Encounter Date Diagnosis Assessment Notes Treatment Notes Treatment Clinical Notes Feb, Lung density on x-ray (ICD-10 - J98.4) [employer] Other 12-12-2023 Hospital Discharge instructions Patient Education [...] urethra. Follow these instructions at home: Take keyw-rmg-ovkxzdu and prescription medicines only as told by [...] provider. Document Revised: 09/16/2021 Document Reviewed: 09/16/2021 [employer] Patient Education 2022 [employer]. Follow Up Care 11/30/2021 09:41:49 With:HITESH LAKHANI, Mayank Quijano, URL Address: [facility] [address], [place] [address]- When:Within 1 Year(s) Comments:w/PSA [facility] 11-22-2023 Evaluation note* Encounter Date Diagnosis Assessment [...] diabetes medication issues. 6. Prescriptions: [facility]: Gabapentin sent 02/02/23 7. Prescriptions will not [...] hoursTarget: [place] 110 Updated weight/tdi in control [employer] Other 09-28-2023 Evaluation note* Encounter Date Diagnosis Assessment Notes Treatment Notes Treatment Clinical Notes Nov, Acute bronchitis due to other specified organisms (ICD-10 - J20.8) Instructed to use Robitussin or Mucinex for cough, saline or Flonase NS for congestion, Tylenol for pain and fever. Nov, Ischemic cardiomyopathy (ICD-10 - I25.5) He has no s/s CHF. Weight stable w/o increased edema. Nov, Other . [employer] Other 09-28-2023 History of Present illness Narrative* Emmanuel Sparks MD - 12/09/2022 8:00 AM EDT [facility] [place] Department of Cardiovascular Medicine VIRTUAL VIDEO VISIT [...] visit. Either the patient or their legal wireless sales representative has been informed of the [...] and PCI 15 years ago 2005, 2011 [place] July 2019 (chest pain two stents), no stent cards, performed by Dr. Benítez at [facility]. Stents were all to the LAD 3. [...] and PCI 15 years ago 2005, 2011 [place]), July 2019 (chest pain two stents), no stent cards, performed by Dr. Benítez at [facility]. Stents were all to the LAD 3. [...] the management and care of this patient. Emmanuel Sparks MD documented in [facility] encounterThe [facility]* Encounter Date Diagnosis Assessment Notes Treatment Notes Treatment Clinical Notes Nov, Bug bite, initial encounter (ICD-10 - W57.XXXA) Cool compresses and antihistamines. Avoid systemic steroids due to DM Nov, Type 1 diabetes mellitus with hyperglycemia (ICD-10 - E10.65) BS controlled DM influences treatment of cutaneous rash, avoid steroids [employer] Other 07-05-2023 Evaluation note* Encounter Date Diagnosis [...] Notify office w/ increased symptoms, hand weakness. [employer] Other 07-05-2023 Evaluation note* Encounter Date Diagnosis Assessment Notes Treatment Notes Treatment Clinical Notes Sep, Chronic HFrEF (heart failure with reduced ejection fraction) (ICD-10 - I50.22) Echo: LVEF 37%, RV dilated, RVSP 37 [employer] Other 06-30-2023 Instructions* Patient Instructions* Emmanuel Sparks MD - 09/10/2022 2:24 PM EDT Ejection fraction is 37%. This is stable compared to February of 2021. Keep up your current work and regimen. Virtual visit in 3 months. documented in [facility] encounterThe [facility] History of Present illness Narrative* Emmanuel Sparks MD - 09/10/2022 1:08 PM EDT Images from the original note were not included. [facility] [place] [facility] SECTION OF HEART FAILURE and CARDIAC TRANSPLANT MEDICINE OUTPATIENT VISIT DATE September 10, 2022 OUTPATIENT VISIT TYPE Established Patient PRIMARY CARE PHYSICIAN: Epifanio Mcgowan (Suzy) [address] [place] [address] CHIEF COMPLAINT: Follow-up NURSING INTAKE (Patient s [...] and PCI 15 years ago 2005, 2011 [place] July 2019 (chest pain two stents), no stent cards, performed by Dr. Benítez at [facility]. Stents were all to the LAD 3. [...] and PCI 15 years ago 2005, 2011 [place]), July 2019 (chest pain two stents), no stent cards, performed by Dr. Benítez at [facility]. Stents were all to the LAD 3. [...] I will ask for his [facility] films from 2019 from [facility] to be uploaded here so we have a frame of reference. Continue asa, statin. Heart Failure specific medications (list current, note updates or changes, note prior intolerance): BB: Metop XL 12.5 mg daily ACEI/ARB/ARNI: 0.5 tab of ARNI 24/26 mg BID MRA: Maynard 25 mg daily SGLT2: None due to [...] diet, exercise, other non-medical management as above. Emmanuel Sparks MD, [facility] Section Of Heart Failure and Cardiac Transplant Medicine [facility] [place] [facility] Desk J3-[address] [place] [address] documented in this encounterThe [facility] note* Encounter Date Diagnosis Assessment Notes Treatment Notes Treatment Clinical Notes July, Dysuria (ICD-10 - R30.0) [employer] Other 05-02-2023 Evaluation note* Encounter Date Diagnosis [...] diabetes medication issues. 6. Prescriptions: [facility]: Gabapentin (oarrs reviewed), Gvoke 07/13/22. Sample tresiba [...] dietary and fitness guidelines material was published 02 May, 2023 HTN (hypertension) (ICD-10 - I10) High blood [...] 1:35Active insulin time 5 hoursTarget: [place] 110 [employer] Other 01-24-2023 Evaluation note* Encounter Date Diagnosis [...] Maintaining a healthful weight material was published [employer] Other 01-04-2023 Evaluation note* Encounter Date Diagnosis Assessment Notes [...] by ( ), under direct supervision of ( ). Document reviewed and amended by provider [...] I25.5) Mar, Atherosclerotic hear t disease of [place] coronary artery without angina pectoris (ICD-10 - [...] Mar, Annual physical exam (ICD-10 - Z00.00) [employer] Other 11-10-2022 History of Present illness Narrative* Emmanuel Sparks MD - 01/21/2022 8:14 AM EST [facility] [place] Department of Cardiovascular Medicine VIRTUAL VIDEO VISIT [...] and PCI 15 years ago 2005, 2011 ([place]), July 2019 (chest pain two stents), no stent cards, performed by Dr. Benítez at [facility]. Stents were all to the LAD 3. [...] and PCI 15 years ago 2005, 2011 ([place]), July 2019 (chest pain two stents), no stent cards, performed by Dr. Benítez at [facility]. Stents were all to the LAD 3. [...] I will ask for his [facility] films from 2019 from [facility] to be uploaded here so we have [...] the management and care of this patient. Emmanuel pSarks MD January 21, 2022 8:15 AM documented in this encounterThe [facility]10[facility] Miscellaneous Notes* Telephone Encounter - Frida Liao RN - 12/29/2021 10:14 AM EDT Outside labs received from 12/28. Scanned into [employer]([facility]) for review. Frida [id number] documented in this encounterThe [facility]10-[facility]22 Miscellaneous Notes* Telephone Encounter - Sada Vargas RN - 12/28/2021 5:26 PM EDT Images from the original note were not included. Emmanuel Sparks MD You 3 minutes ago (5:22 PM) [...] a call from pts Diabetes doctor in [place]. Pts BP today was 89/41 and the pt has been lightheaded for the past 3 weeks. Nurse relayed the following labs: BUN--29 Creatinine--1.28 Sodium--134 Creatinine ration--56 She will also fax labs over to [phone] Pt can be reached at [phone] Frida [id number] documented in this encounterThe [facility]10-17-2022 Evaluation note* Encounter Date Diagnosis [...] of your visit. 8. Notified CC Dr. Emmanuel Sparks office Dec, Insulin long-term use (ICD-10 - [...] 1:35Active insulin time 5 hoursTarget: [place] 110 17 Dec, 2021 Other 11:25am Contact ed Dr. Emmanuel Sparks's office at [facility] [phone]. Spoke with Frida office staff to inform Dr. Sparks pt is here for an appointment with [...] has an upcoming appointment scheduled with Dr. Sparks on 01/21/22. Per Frida, she would provide the information to Dr. Sparks. Requesting labs to be faxed to [phone]. Lab results faxed as requested. Office will call patient directly today with Dr. Sparks's recommendation. Patient and Rimma LAMA updated. [employer] Other 09-19-2022 Hospital Discharge instructions Patient Education [...] who: Are older than age 65. Are -[place]. Are obese. Have a family history of [...] cells. Follow these instructions at home: Take znry-eaq-xlxvbyj and prescription medicines only as told by [...] 02/28/2006 Document Revised: 02/10/2018 Document Reviewed: 11/08/2016 [employer] Patient Education 2020 [employer]. Follow Up Care 11/24/2020 15:33:36 With:SHLOMO LAKHANI, Xiang Perry, URL Address: [address] [place] [address]- When:1 year Comments:w/ PSA [facility] [phone] Instructions* Patient Instructions* Emmanuel Sparks MD - 10/16/2021 10:41 AM EDT Great job keeping yourself healthy. Labwork today in J1-4. See me virtually in 3 months time. documented in this encounterThe [facility]08-[facility] History of Present illness Narrative* Emmanuel Sparks MD - 10/16/2021 10:11 AM EDT Images from the original note were not included. [facility] [place] [facility] SECTION OF HEART FAILURE and CARDIAC TRANSPLANT MEDICINE OUTPATIENT VISIT DATE October 16, 2021 OUTPATIENT VISIT TYPE Established Patient PRIMARY CARE PHYSICIAN: Epifanio Mcgowan ([facility]) [address] [place] [address] CHIEF COMPLAINT: Follow-up NURSING INTAKE (Patient s [...] and PCI 15 years ago 2005, 2011 [place] July 2019 (chest pain two stents), no stent cards, performed by Dr. Benítez at [facility]. Stents were all to the LAD 3. [...] [facility] 10/23/20 Access Site: RIJ Sheath Size:7fr [place] Mango Size:7fr BP: 110 / 62 BP [...] and PCI 15 years ago 2005, 2011 ([place]), July 2019 (chest pain two stents), no stent cards, performed by Dr. Benítez at [facility]. Stents were all to the LAD 3. [...] I will ask for his [facility] films from 2019 from [facility] to be uploaded here so we have a frame of reference. Continue asa, statin. Heart Failure specific medications (list current, note updates or changes, note prior intolerance): BB: Metop XL 12.5 mg once a day ACEI/ARB/ARNI: ARNI 24/26 mg BID MRA: Maynard 25 mg daily SGLT2: None due to T1DM Diuretic: Torsemide 40 mg BID Digoxin: none Vasodilators: none Anti-arrhythmics: none Ivabradine: none Other anti-HTN: none PLAN AND RECOMMENDATIONS: 1. Labs today 2. 3 month virtual; echo in the Spring 3. [facility] films from [facility] from July 2019 I personally interviewed, confirmed and edited the above information as obtained by others I personally spent 40 minutes in total time involved in the management and care of this patient. Wediscussed natural history of disease, current treatment options, and future potential treatment options. We discussed diet, exercise, other non-medical management as above. Emmanuel Sparks MD, [facility] Section Of Heart Failure and Cardiac Transplant Medicine [facility] [place] [facility] Desk J3-[address] [place] [address] documented in this encounterThe [facility]03-10-2022 Evaluation note* Encounter Date Diagnosis [...] medication issues. 6. Prescriptions: Sent gvoke to [facility]. 7. Keep f/u with Dr. Vasquez May, [...] the nutrition facts label material was published [employer] Other [id number] History of Past illness Narrative* Problem Noted Date Resolved Date Type 2 diabetes mellitus without complication 07/16/2021 Polyneuropathy due to type 2 diabetes mellitus 0 05/14/2021 07/16/2021 documented as of this encounter (statuses as of 09/23/2021) [facility] History of Past illness Narrative* [...] of this encounter (statuses as of 10/16/2021) [facility] History of Past illness Narrative* [...] of this encounter (statuses as of 12/28/2021) [facility] History of Past illness Narrative* [...] of this encounter (statuses as of 12/29/2021) [facility] History of Past illness Narrative* [...] of this encounter (statuses as of 02/22/2022) [facility] History of Past illness Narrative* [...] of this encounter (statuses as of 02/26/2022) [facility] History of Past illness Narrative* [...] of this encounter (statuses as of 08/19/2022) [facility] of Past illness Narrative* [...] of this encounter (statuses as of 09/22/2022) [facility] History of Past illness Narrative* [...] of this encounter (statuses as of 10/11/2022) [facility] History of Past illness Narrative* [...] of this encounter (statuses as of 10/12/2022) [facility] of Past illness Narrative* [...] of this encounter (statuses as of 01/11/2023) [facility] of Past illness Narrative* [...] of this encounter (statuses as of 01/12/2023) [facility] History of Past illness Narrative* [...] d ue to type 2 diabetes mellitus ([facility]) 12/05/2013 10/16/2021 Crystalline deposits in vitreous 12/05/2013 03/26/2022 documented as of this encounter (statuses as of 03/04/2023) [facility] History of Past illness Narrative* [...] d ue to type 2 diabetes mellitus ([facility]) 12/05/2013 10/16/2021 Crystalline deposits in vitreous 12/05/2013 03/26/2022 documented as of this encounter (statuses as of 05/19/2023) [facility] Evaluation note* Encounter Date Diagnosis [...] medication issues. 6. Prescriptions: Humalog sent to [facility]. Sample dexcom g6 transmitter/sensor given today 7. Went to [employer] website and played video on removal resevoir. Pt is agreeable to coming into office and bringing new resevoir and set up apt with Jonn Gimenez to troubleshoot. Will have family educator reach out to pt. 8. Keep [...] the nutrition facts label material was published [employer] Other 10-28-2021 Evaluation note* Encounter Date Diagnosis Assessment Notes Treatment Notes Treatment Clinical Notes Dec, Type 1 diabetes mellitus with complication (ICD-10 - E10.8) Reviewed pump/cgm download tandem control iq with dexcom g6 12/25/2020-12/13: Avg glcuose 124. >180-9%, 70-180-89%, <70-2%. Will modify basal settings. Ya LAMA, RANCH HAND-C, BC-ADM Patient arrived today for insulin pump [...] spent on education by Trevon AUGUSTE, RN. [employer] Other 05-01-2020 History general Narrative - Reported* Type Description Date Medical History TYPE I DIABETIC Medical History MO Medical History HX PROSTATE Ca Medical History MO 07/2019 Medical History Left Lung Spontaneous Pleural [...] see above surgical histo ry Hospital[place] [facility] Hospitalization History Chest pain 11/29 Hospitalization History rupture bladder 05/03 Hospitalization History ACUTE EXACERBATI ON OF CHF, GROSS HEMATURIA, CAD, H/O PROSTATE CA, DM, NEUROPATHY, CONSTIPATION; 06/[address] [facility] 10/2020 [employer] Other 05-01-2020 History general Narrative - Reported* Type Description Date Medical History TYPE I DIABETIC Medical History MO Medical History HX PROSTATE Ca Medical History MO 07/2019 Medical History Left Lung Spontaneous Pleural [...] see above surgical histo ry Hospitalization History [facility] Hospitalization History Chest pain 11/29 Hospitalization History rupture bladder 05/03 Hospitalization History ACUTE EXACERBATI ON OF CHF, GROSS HEMATURIA, CAD, H/O PROSTATE CA, DM, NEUROPATHY, CONSTIPATION; 06/[address] [facility] 10/2020 [employer] Other 05-01-2020 History general Narrative - Reported* Type Description Date Medical History TYPE I DIABETIC Medical History MO Medical History HX PROSTATE Ca Medical History MO 07/2019 Medical History Left Lung Spontaneous Pleural [...] see above surgical histo ry Hospitalization History [facility] Hospitalization History Chest pain 11/29 Hospitalization History rupture bladder 05/03 Hospitalization History ACUTE EXACERBATI ON OF CHF, GROSS HEMATURIA, CAD, H/O PROSTATE CA, DM, NEUROPATHY, CONSTIPATION; 06/2020 Hospitalization History [place] [place] [facility] [employer] Other Evaluation + Plan note Future Appointments Appointment Date:11/29/2022 08:45:00 AM Scheduled Provider:Xiang KEENAN MD Location:[facility] Appointment Type:URO Office Visit Diagnostic Tests Pending * PSA Total 11/30/21 [facility] evaluation + Plan note Future Appointments Appointment Date:02/29/2024 08:30:00 AM Scheduled Provider:Mayank PROCTOR MD Location:[facility] Appointment Type:URO Office Visit Diagnostic Tests Pending * PSA Total 02/15/23 * PSA Total 02/22/23 [facility] [place] evaluation [facility]No [facility] [employer] Other evaluxucib note* Diagnosis Chronic systolic heart failure (HCC) Chronic systolic heart failure documented in this encounter [facility] note* Diagnosis Chronic systolic heart failure (HCC)- Primary Chronic systolic heart failure Ischemic cardiomyopathy Other specified forms of chronic ischemic heart disease Coronary artery disease involving [place] coronary artery of [place] heart without angina pectoris Obesity, Class I, BMI 30-34.9 Obesity, unspecified Type 1 diabetes mellitus with diabetic polyneuropathy (HCC) Type I (juvenile type) diabetes mellitus with neurological manifestations, not stated as uncontrolled Dyslipidemia Other and unspecified hyperlipidemia documented in this encounter [facility] noteNo assessment information [facility] Work Phone: evaluation note* Diagnosis Chronic systolic heart failure (HCC) Chronic systolic heart failure documented in this encounter [facility] note* Diagnosis Ischemic cardiomyopathy- Primary Other specified forms of chronic ischemic heart disease Chronic systolic heart failure (HCC) Chronic systolic heart failure Coronary artery disease involving [place] coronary artery of [place] heart without angina pectoris Type 1 diabetes mellitus with diabetic polyneuropathy (HCC) Type I (juvenile type) diabetes mellitus with neurological manifestations, not stated as uncontrolled Dyslipidemia Other and unspecified hyperlipidemia [facility] Diagnosis Chronic systolic heart failure (HCC)- Primary Chronic systolic heart failure Ischemic cardiomyopathy Other specified forms of chronic ischemic heart disease [facility] this [facility] Diagnosis Chronic systolic heart failure (HCC) Chronic systolic heart failure Ischemic cardiomyopathy Other specified forms of chronic ischemic heart disease Coronary artery disease involving [place] coronary artery of [place] heart without angina pectoris Type 1 diabetes mellitus with diabetic polyneuropathy (HCC) Type I (juvenile type) diabetes mellitus with neurological manifestations, not stated as uncontrolled Dyslipidemia Other and unspecified hyperlipidemia [facility] Diagnosis Chronic systolic heart failure (HCC) Chronic systolic heart failure [facility] Diagnosis Chronic systolic heart failure (HCC) Chronic systolic heart failure Ischemic cardiomyopathy Other specified forms of chronic ischemic heart disease Coronary artery disease involving [place] coronary artery of [place] heart without angina pectoris Type 1 diabetes mellitus with diabetic polyneuropathy (HCC) Type I (juvenile type) diabetes mellitus with neurological manifestations, not stated as uncontrolled Dyslipidemia Other and unspecified hyperlipidemia Peripheral vascular disease, unspecified (HCC) Peripheral vascular disease, unspecified [facility] Diagnosis Chronic systolic heart failure (HCC) Chronic systolic heart failure Ischemic cardiomyopathy Other specified forms of chronic ischemic heart disease Coronary artery disease involving [place] coronary artery of [place] heart without angina pectoris documented in this encounter [facility] Diagnosis Chronic systolic heart failure (HCC)- Primary Chronic systolic heart failure Ischemic cardiomyopathy Other specified forms of chronic ischemic heart disease Coronary artery disease involving [place] coronary artery of [place] heart without angina pectoris Type 1 diabetes mellitus with diabetic polyneuropathy (HCC) Type I (juvenile type) diabetes mellitus with neurological manifestations, not stated as uncontrolled Dyslipidemia Other and unspecified hyperlipidemia Peripheral vascular disease, unspecified (HCC) Peripheral vascular disease, unspecified Obesity, Class I, BMI 30-34.9 Obesity, unspecified [facility] this [facility] Diagnosis Ischemic cardiomyopathy Other specified forms of chronic ischemic heart disease Coronary artery disease involving [place] coronary artery of [place] heart without angina pectoris Type 1 diabetes mellitus with diabetic polyneuropathy (HCC) Type I (juvenile type) diabetes mellitus with neurological manifestations, not stated as uncontrolled Dyslipidemia Other and unspecified hyperlipidemia [facility] Diagnosis Chronic systolic heart failure (HCC) Chronic systolic heart failure [facility] this [facility] Diagnosis Chronic systolic heart failure (HCC)- Primary Chronic systolic heart failure Peripheral vascular disease (HCC) Peripheral vascular disease, unspecified Stable proliferative diabetic retinopathy associated with type 1 diabetes mellitus, unspecified laterality (HCC) Ischemic cardiomyopathy Other specified forms of chronic ischemic heart disease Type 1 diabetes mellitus with diabetic polyneuropathy (HCC) Type I (juvenile type) diabetes mellitus with neurological manifestations, not stated as uncontrolled Coronary artery disease involving [place] coronary artery of [place] heart without angina pectoris Dyslipidemia Other and unspecified hyperlipidemia Obesity, Class I, BMI 30-34.9 Obesity, unspecified [facility] this [facility]* Diagnosis Onset Date Resolution Status BMI 32.0-32.9,adult acute Dietary counseling and surveillance acute Hypoglycemia acute Insulin long-term use acute Insulin pump titration acute Neuropathy acute Type 1 diabetes mellitus acu te Hyperlipidemia chronic Hypertension chronic Allergic rhinitis acute Cough acute Pleural effusion acute Cough acute Pleural effusion acute [facility] Work Phone: Evaluation note* Diagnosis Onset Date Resolution Status BMI 32.0-32.9,adult acute Dietary counseling and surveillance acute Hypoglycemia acute Insulin long-term use acute Insulin pump titration acute Neuropathy acute Type 1 diabetes mellitus acu te Hyperlipidemia chronic Hypertension chronic Allergic rhinitis acute Cough acute Pleural effusion acute Cough acute Pleural effusion acute Acute hypoxic respiratory failure acute [facility] Work Phone: Evaluation note* Diagnosis Chronic systolic heart failure (HCC) Chronic systolic heart failure Ischemic cardiomyopathy Other specified forms of chronic ischemic heart disease Coronary artery disease involving [place] coronary artery of [place] heart without angina pectoris Type 1 diabetes mellitus with diabetic polyneuropathy (HCC) Type I (juvenile type) diabetes mellitus with neurological manifestations, not stated as uncontrolled Dyslipidemia Other and unspecified hyperlipidemia [facility] this encounter [facility] Diagnosis Onset Date Resolution Status BMI 32.0-32.9,adult acute Dietary counseling and surveillance acute Hypoglycemia acute Insulin long-term use acute Insulin pump titration acute Neuropathy acute Type 1 diabetes mellitus acu te Hyperlipidemia chronic Hypertension chronic Allergic rhinitis acute Cough acute Pleural effusion acute Cough acute Pleural effusion acute Acute bronchitis due to human metapneumovirus (hMPV) acute Bronchitis due to human metapneumovirus (hMPV) acute Diabetes mellitus acute Pleural effusion acute Bronchitis acute Maxillary sinusitis, acute a cute [facility] Work Phone: Evaluation note* Diagnosis Onset Date Resolution Status BMI 32.0-32.9,adult acute Dietary counseling and surveillance acute Hypoglycemia acute Insulin long-term use acute Insulin pump titration acute Neuropathy acute Hypertension chronic Allergic rhinitis acute Pleural effusion acute Pleural effusion acute Diabetes mellitus acute Pleural effusion acute Recurrent right pleural effusion acute Colon polyp acute Exudative pleural effusion a cute Hypercholesterolemia acute Type 1 diabetes mellitus with diabetic polyneuropathy acute Type 1 diabetes mellitus with hyperglycemia acute CAD (coronary artery disease) chronic Hypertension [facility] Work Phone: Evaluation note* Diagnosis Onset Date Resolution Status Recurrent right pleural effusion acute Acute on chronic HFrEF (hear t failure with reduced ejection fraction) acute Colon polyp acute Hypercholesterolemia acute Ischemic cardiomyopathy acut e Recurrent right pleural effusion acute Type 1 diabetes mellitus with diabetic polyneuropathy acute Type 1 diabetes mellitus with hyperglycemia acute Hypertension chronic BMI 32.0-32.9,adult acute Dietary counseling and surveillance acute Hypoglycemia acute Insulin long-term use acute Insulin pump titration acute Hypertension [facility] Work Phone: evaluation note* Diagnosis Onset Date Resolution Status Recurrent right pleural effusion acute Acute on chronic HFrEF (hear t failure with reduced ejection fraction) acute Colon polyp acute Hypercholesterolemia acute Ischemic cardiomyopathy acut e Recurrent right pleural effusion acute Type 1 diabetes mellitus with diabetic polyneuropathy acute Type 1 diabetes mellitus with hyperglycemia acute Hypertension chronic BMI 34.0-34.9,adult acute Dietary counseling and surveillance acute Hypoglycemia acute Insulin long-term use acute Insulin pump titration acute Type 1 diabetes mellitus with diabetic polyneuropathy acute Hypertension chronic [facility] Work Phone: Evaluation note* Diagnosis Onset Date Resolution Status Recurrent right pleural effusion acute Acute on chronic HFrEF (hear t failure with reduced ejection fraction) acute Colon polyp acute Hypercholesterolemia acute Ischemic cardiomyopathy acut e Recurrent right pleural effusion acute Type 1 diabetes mellitus with diabetic polyneuropathy acute Type 1 diabetes mellitus with hyperglycemia acute Hypertension chronic BMI 34.0-34.9,adult acute Dietary counseling and surveillance acute Hypoglycemia acute Insulin long-term use acute Insulin pump titration acute Type 1 diabetes mellitus with diabetic polyneuropathy acute Hypertension chronic Acute on chronic HFrEF (hear t failure with reduced ejection fraction) acute Ischemic cardiomyopathy acut e Type 1 diabetes mellitus with diabetic polyneuropathy acute Type 1 diabetes mellitus with hyperglycemia acute Hypertension [facility] Work Phone: Evaluation note* Diagnosis Onset Date Resolution Status Recurrent right pleural effusion acute Acute on chronic HFrEF (hear t failure with reduced ejection fraction) acute Colon polyp acute Hypercholesterolemia acute Ischemic cardiomyopathy acut e Recurrent right pleural effusion acute Type 1 diabetes mellitus with diabetic polyneuropathy acute Type 1 diabetes mellitus with hyperglycemia acute Hypertension chronic BMI 34.0-34.9,adult acute Dietary counseling and surveillance acute Hypoglycemia acute Insulin long-term use acute Insulin pump titration acute Type 1 diabetes mellitus with diabetic polyneuropathy acute Hypertension chronic Acute on chronic HFrEF (hear t failure with reduced ejection fraction) acute Chronic kidney disease acute Ischemic cardiomyopathy acut e 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 acute Type 1 diabetes mellitus with hyperglycemia acute Hypertension [facility] Work Phone: Evaluation note* Diagnosis Pre-operative cardiovascular examination- Primary CAD, multiple vessel Coronary atherosclerosis of unspecified type of vessel, [place] or graft [facility] this [facility]* Diagnosis Pre-operative cardiovascular examination- Primary CAD, multiple vessel Coronary atherosclerosis of unspecified type of vessel, [place] or graft [facility] this encounter [facility]* Diagnosis Pre-operative clearance- Primary Preoperative examination, unspecified NSTEMI (non-ST elevated myocardial infarction) (HCC) Acute myocardial infarction, subendocardial infarction, episode of care unspecified CAD, multiple vessel Coronary atherosclerosis of unspecified type of vessel, [place] or graft [facility] Diagnosis Chronic systolic heart failure (HCC)- Primary Chronic systolic heart failure documented in this encounter [facility]* Diagnosis Onset Date Resolution Status Acute on chronic HFrEF (hear t failure with reduced ejection fraction) acute Colon polyp acute Hypercholesterolemia acute Ischemic cardiomyopathy acut e Recurrent right pleural effusion acute Type 1 diabetes mellitus with diabetic polyneuropathy acute Type 1 diabetes mellitus with hyperglycemia acute Hypertension chronic BMI 34.0-34.9,adult acute Dietary counseling and surveillance acute Insulin long-term use acute Insulin pump titration acute Type 1 diabetes mellitus with diabetic polyneuropathy acute Hypertension chronic Acute on chronic HFrEF (hear t failure with reduced ejection fraction) acute Chronic kidney disease acute Ischemic cardiomyopathy acut e 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 acute Type 1 diabetes mellitus with hyperglycemia acute Hypertension chronic Acute blood loss anemia acut e Acute on chronic HFrEF (hear t failure with reduced ejection fraction) acute Chronic kidney disease acute Hypercholesterolemia acute Ischemic cardiomyopathy acut e NSTEMI (non-ST elevated myocardial infarction) 2023 acute Recurrent right pleural effusion acute 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 acute Type 1 diabetes mellitus with hyperglycemia acute Hypertension chronic [facility] Work Phone: Evaluation note* Diagnosis Onset Date Resolution Status BMI 34.0-34.9,adult acute Dietary counseling and surveillance acute Insulin long-term use acute Insulin pump titration acute Type 1 diabetes mellitus with diabetic polyneuropathy acute Hypertension chronic Acute on chronic HFrEF (hear t failure with reduced ejection fraction) acute Chronic kidney disease acute Ischemic cardiomyopathy acut e 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 acute Type 1 diabetes mellitus with hyperglycemia acute Hypertension chronic Acute blood loss anemia acut e Acute on chronic HFrEF (hear t failure with reduced ejection fraction) acute Chronic kidney disease acute Ischemic cardiomyopathy acut e NSTEMI (non-ST elevated myocardial infarction) 2023 acute Recurrent right pleural effusion acute 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 acute Type 1 diabetes mellitus with hyperglycemia acute Hypertension chronic Acute blood loss anemia acut e Acute on chronic HFrEF (hear t failure with reduced ejection fraction) acute Chronic kidney disease acute Ischemic cardiomyopathy acut e NSTEMI (non-ST elevated myocardial infarction) 2023 acute Recurrent right pleural effusion acute Type 1 diabetes mellitus with diabetic polyneuropathy acute Type 1 diabetes mellitus with hyperglycemia acute Hypertension chronic [facility] Work Phone: History and physical note Author Florence Milner [facility] June 03, 2023 10:18am Note Date/Time June 03, 2023 10: 18am [facility] [address] [place] [address] Gastroenterology H&P Signed Patient: Ellis Braxton MR#: [id number] : 1955 Acct:[id number] Age/Sex: 67 / M Adm Date: 4 Loc: Room: Type: [facility] Attending Dr: Florence Milner MD Copies to: DO Florence Jin MD~ Date of Service: 06/03/2023 HISTORY & PHYSICAL: Patient's history with special attention to the cardiovascular, pulmonary systems and the current problem was reviewed with the patient immediately prior to the procedure. Present medications and doses reviewed in the EMR. Allergies and pertinent laboratory tests were also reviewedat this time in the EMR. The physical examination, as below, was then performed. Indication, assessment and HPI: 67-year-old man here for EGD/colonoscopy for evaluation of anemia and for colon cancer screening Family history of GI malignancy? No PHYSICAL EXAMINATION Mouth and Pharynx : Moist mucus membranes, normal dentition Cardiac: Regular rate, regular rhythm Pulmonary: Clear to auscultation bilaterally, no wheezing Neurological: Alert and oriented x3, no focal deficits noted Abdomen: Abdomen soft, non-tender REVIEW OF SYSTEMS Constitutional: Denies malaise, fevers Cardiovascular: Denies chest pain, palpitations Respiratory: Denies shortness of breath, wheezing Gastrointestinal: Per HPI Genitourinary: Denies dysuria, polyuria Musculoskeletal: Denies joint swelling, joint stiffness Neurological: Denies numbness, tingling Integumentary: Denies rashes, skin lesions Endocrine: Denies fatigue, weight loss Written informed consent obtained from the patient. Risks (including but not limited to perforation, infection, bloating, bleeding, need for emergent surgeryand loss of life), benefits and alternatives explained and questions answered. The patient verbalized understanding. Based on history patient is an appropriate candidate for the procedure. Florence Milner M.D. Documented By: Florence Milner MD 06/03/23 1017 Signed By: <Electronically signed by Florence Milner MD> 06/03/23 1018 [facility] Work Phone: Hospital course Narrative No data available for this section [facility] Discharge instructions Additional Instructions DISCHARGE INSTRUCTIONS FOR UPPER ENDOSCOPY WHAT TO EXPECT: - You may feel full, gassy or cramping after your procedure. In some cases, this may be from a few hours to a day. Walking may help relieve the discomfort. - Your throat may feel sore today from the scope that the doctor passed through your throat to visualize your stomach. Take a throat lozenge or suck on ice to ease the discomfort. - You may notice some streaks of blood in your sputum if the doctor has taken a biopsy. - You should begin to recover from anesthesia within 1 hour of the procedure, however may feel groggy for the next 24 hours. DO's AND DON'Ts: - Call your doctor right away if you have a hard abdomen, severe pain, vomiting or if you cough up large amounts of blood. - Call your doctor if you develop any rashes, hives or difficulty breathing. - If you take 81 mg aspirin for your heart it is safe to resume this medication. - If you take other blood thinner medications your doctor will instruct you when these can safely be resumed. - Do NOT drive for 24 hours. - Do NOT operate machinery such as power tools, INFUSDs, Spotzerwers, AlchemyAPIing machines, etc. for 24 hours. - Avoid alcoholic beverages and drugs for allergies, nerves, or sleep. - Do NOT stay alone. Do NOT leave your child unattended. - Do NOT make important personal or business decisions or sign any legal documents. - Eat solid foods and drink liquids in smaller amounts than usual until normal appetite returns. If you should experience an upset stomach, liquids high in sugar content (soda, Dimas-Aid, non-acid juices) are recommended. - Do NOT smoke. - Do take it easy today. You need not stay in bed, but avoid strenuous activities such as jogging or working out. DISCHARGE INSTRUCTIONS FOR COLONOSCOPY WHAT TO EXPECT: - You may feel full, gassy or cramping after your procedure. In some cases, this may be from a few hours to a day. Walking may help relieve the discomfort. - If you have polyp(s) removed you may note some minor bloody discharge after your first bowel movements. - You should begin to recover from anesthesia within 1 hour of the procedure, however may feel groggy for the next 24 hours. DO's AND DON'Ts: - Call your doctor right away if you have a hard abdomen, sever pain, are passing lots of bright red blood or clots. - Call your doctor if you develop any rashes, hives or difficulty breathing. - Let your doctor know if you have not had a bowel movement by 3 days after your procedure. - If you take 81 mg aspirin for your heart it is safe to resume this medication. - If you take other blood thinner medications your doctor will instruct you when these can safely be resumed. - Do NOT drive for 24 hours. - Do NOT operate machinery such as power tools, lawn mowers, snow blowers, sewing machines, etc. for 24 hours. - Avoid alcoholic beverages and drugs for allergies, nerves, or sleep. - Do NOT stay alone. Do NOT leave your child unattended. - Do NOT make important personal or business decisions or sign any legal documents. - Eat solid foods and drink liquids in smaller amounts than usual until normal appetite returns. If you should experience an upset stomach, liquids high in sugar content (soda, Dimas-Aid, non-acid juices) are recommended. - You can resume normal activities tomorrow. FOLLOW UP & RECOMMENDATIONS: -Protonix 40 mg daily -Follow-up with surgery -Notify the doctor if you have any problems. - Office number [phone]. [facility] Work Phone: Hospital Discharge instructions Additional Instructions Continue to monitor glucose levels as before. Continue use of insulin pump as before.[facility] Work Phone: Hospital Discharge instructions Additional Instructions Take Bumex as prescribed for your leg swelling in addition to your current medication regimen. Then continue your normal regimen. Follow-up with your PCP as scheduled for recheck next Tuesday. Return if develop any worsening shortness of breath or you are not making urine. [facility] Work Phone: Progress note No data available for this section [facility] Reason for referral (narrative)* Reason Referral for EMG/NCS of the B/L upper extremities Diagnosis 1 Paresthesias (R20.2) Referral Organization [facility] Referring Provider First Name Epifanio Referring Provider Last Name Juan M Referring Provider Specialty Internal Me dicine Referred Organization [facility] Referred Address [address], [place],[address] Referred Provider Specialty Neurology Referral Priority Routine [...] lounge chair, prevents his symptoms from occurring. [employer] Other Reason for referral (narrative)* Reason *FU 03/18 Referral for EMG/NCS of the B/L upper extremities Diagnosis 1 Paresthesias (R20.2) Referral Organization [facility] Referring Provider First Name Epifanio Referring Provider Last Name Juan M Referring Provider Specialty Internal Me dicine Referred Organization [facility] Neu[facility] Referred Provider Ashish Segundo Referred Address [address] [place], [place],[address] Referred Provider Specialty Neurology Referral Priority Routine [...] 1 Persistent cough (R0 5.3) Referral Organization [facility] Referring Provider First Name Epifanio Referring Provider Last Name Juan M Referring Provider Specialty Internal Me dicine Referred Organization [facility] Referred Provider Ashish Lozano Referred Address [address] [place], [place],[address] Referred Provider Specialty Pulmonary Di henry Referral Priority Routine General Notes Mr. Braxton [...] Please include CXR, CT chest and labs [employer] Other Reason for referral (narrative)* Reason Referral for EGD and screening Colonoscopy Diagnosis 1 Colon cancer goran hidalgo (Z12.11) Diagnosis 2 Anemia, unspecified type (D64.9) Referral Organization [facility] Referring Provider First Name Epifanio Referring Provider Last Name Juan M Referring Provider Specialty Internal Me dicine Referred Organization [facility] Referred Address [address] [place], [place],[address] Referred Provider Specialty Gastroentero logy Referral Priority [...] be scheduled until after his Pulmonary evaluation. [employer] Other Reason for referral (narrative)* Outpatient Procedure (Routine) - Pending Review Specialty Diagnoses / Procedures Referred By Contac t Referred To Contact HE[facility] [facility] Diagnoses Chronic systolic heart failure (HCC) Procedures ECHO ECHO TTHRC R-T 2D W/WOM-MODE COMPL SPEC&COLR D Emmanuel Saprks MD [address] [place] [address] [facility] [address] [place] [address] Referral ID Status Reason Start Date Expiration Date Visits Requested Visits Authorized [id number] Pending Review Auto-Generat ed Referral 05/19/2023 05/18/2024 1 1 * Transition of Care (Routine) - Ref Not Required Specialty Diagnoses / Procedures Referred By Contac t Referred To [facility] Diagnoses Chronic systolic heart failure (HCC) Procedures CARDIOVASCULAR MEDICINE [place] [address] [place] [id number] [address] Referral ID Status Reason Start Date Expiration Date Visits Requested Visits Authorized [id number] Ref Not Required PCP Requested Referral 08/19/2023 05/18/2024 1 1 [facility] for referral (narrative)* Outpatient Procedure (Routine) - Authorized Specialty Diagnoses / Procedures Referred By Contac t Referred To Contact [facility] Diagnoses Chronic systolic heart failure (HCC) Procedures ECHO ECHO TTHRC R-T 2D W/WOM-MODE COMPL SPEC&[place] [address] [place] [id number] [address] Referral ID Status Reason Start Date Expiration Date Visits Requested Visits Authorized [id number] Authorized Auto-Generat ed Referral 09/26/2023 09/25/2024 1 1 * Outpatient Procedure (Routine) - Authorized Specialty Diagnoses / Procedures Referred By Contac t Referred To Contact [facility] Diagnoses Chronic systolic heart failure (HCC) Procedures ECG COMPLETE ECG ROUTINE ECG W/LEAST 12 LDS W/I&R Emmanuel Sparks MD [address] [place] [address] [address] Referral ID Status Reason Start Date Expiration Date Visits Requested Visits Authorized [id number] Authorized Auto-Generat ed Referral 09/26/2023 09/25/2024 1 1 [facility] for visit Narrative* Outpatient Procedure (Routine) - Closed Specialty Diagnoses / Procedures Referred By Nawaf t Referred To [facility] Diagnoses Chronic systolic heart failure (HCC) Ischemic cardiomyopathy Coronary artery disease involving [place] coronary artery of [place] heart without angina pectoris Procedures ECHO ECHO TTHRC R-T 2D W/WOM-MODE COMPL SPEC&COLR D Emmanuel Sparks MD [address] [place] [address] [facility] [place] [address] [place] [address] Referral ID Status Reason Start Date Expiration Date V isits Requested Visits Authorized [id number] Closed Auto-Generate d Referral 06/24/2022 03/26/2023 1 1 [facility] Summary Purpose Family History Relationship Condition Age at Onset Recorded Date/T aren Not Specified Congestive heart failure Unknown father Secondary malignant neoplasm of prostate Unknown brother Secondary malignant neoplasm of prostate Unknown Relationship Condition Age at Onset Recorded Date/T aren Not Specified Congestive heart failure Unknown father Secondary malignant neoplasm of prostate Unknown brother Secondary malignant neoplasm of prostate Unknown brother Malignant neoplasm Unknown father Unknown Malignant neoplasm Unknown Not Specified Diabetes mellitus Unknown Congestive heart failure Unknown Unknown Heart disease Unknown Relationship Condition Age at Onset Recorded Date/T aren brother Secondary malignant neoplasm of prostate Unknown brother Malignant neoplasm Unknown father Unknown Malignant neoplasm Unknown Relationship Condition Age at Onset Recorded Date/T aren Not Specified Diabetes mellitus Unknown Congestive heart failure Unknown brother Malignant neoplasm Unknown Malignant neoplasm of lung Unknown father Unknown Malignant neoplasm Unknown Malignant neoplasm of prostate Unknown Relationship Condition Age at Onset Recorded Date/T aren mother Diabetes mellitus Unknown Congestive heart failure Unknown brother Malignant neoplasm Unknown Malignant neoplasm of lung Unknown father Unknown Malignant neoplasm Unknown Malignant neoplasm of prostate Unknown Advance Directives Documents on File Type Date Recorded Patient [employer] Expl anation Advance Directive(s) 10/16/2020 9:26 AM Advance Directive Response Recorded Date/ Time Advance Directives No January 1:28pm Advance Directive Response Recorded Date/ Time Advance Directives No April 04, 2023 2:07pm Advance Directive Response Recorded Date/ Time Advance Directives No May 25 9:26am Documents on File Type Date 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 Thomas Benjamin & Abnormal CT Pleural Effusion Pleural Effusion CEA: 2 wk f/u Pleural Effusion Reason for Visit BMI 32.0-32.9,adult Dietary counseling and surveillance Hypoglycemia Insulin long-term use Insulin pump titration Neuropathy Type 1 diabetes mellitus Hyperlipidemia Hypertension Allergic rhinitis Cough Pleural effusion Cough Pleural effusion Chief Complaint Hands Falling Asleep Wellness pump Referred back Dr. Thomas Benjamin & Abnormal CT Pleural Effusion Pleural Effusion CEA: 2 wk f/u Pleural Effusion anemia, screening anemia, screening Reason for Visit BMI 32.0-32.9,adult Dietary counseling and surveillance Hypoglycemia Insulin long-term use Insulin pump titration Neuropathy Type 1 diabetes mellitus Hyperlipidemia Hypertension Allergic rhinitis Cough Pleural effusion Cough Pleural effusion Chief Complaint pump Referred back Dr. Thomas Benjamin & Abnormal CT Pleural Effusion Pleural Effusion CEA: 2 wk f/u Pleural Effusion anemia, screening anemia, screening Amb Documentation Amb Documentation Amb Documentation Amb Documentation sob Reason for Visit BMI 32.0-32.9,adult Dietary counseling and surveillance Hypoglycemia Insulin long-term use Insulin pump titration Neuropathy Type 1 diabetes mellitus Hyperlipidemia Hypertension Allergic rhinitis Cough Pleural effusion Cough Pleural effusion Acute hypoxic respiratory failure Chief Complaint pump Referred back Dr. Thomas Benjamin & Abnormal CT Pleural Effusion Pleural Effusion CEA: 2 wk f/u Pleural Effusion anemia, screening anemia, screening Amb Documentation Amb Documentation Amb Documentation Amb Documentation sob sob SINUS INFECTION Reason for Visit BMI 32.0-32.9,adult Dietary counseling and surveillance Hypoglycemia Insulin long-term use Insulin pump titration Neuropathy Type 1 diabetes mellitus Hyperlipidemia Hypertension Allergic rhinitis Cough Pleural effusion Cough Pleural effusion Acute bronchitis due to human metapneumovirus (hMPV) Bronchitis due to human metapneumovirus (hMPV) Diabetes mellitus Pleural effusion Bronchitis Maxillary sinusitis, acute Chief Complaint pump Referred back Dr. Thomas Benjamin & Abnormal CT Pleural Effusion Pleural Effusion CEA: 2 wk f/u Pleural Effusion anemia, screening anemia, screening Amb Documentation Amb Documentation Amb Documentation Amb Documentation sob sob SINUS INFECTION 4 month follow up Reason for Visit BMI 32.0-32.9,adult Dietary counseling and surveillance Hypoglycemia Insulin long-term use Insulin pump titration Neuropathy Hypertension Allergic rhinitis Pleural effusion Pleural effusion Diabetes mellitus Pleural effusion Recurrent right pleural effusion Colon polyp Exudative pleural effusion Hypercholesterolemia Type 1 diabetes mellitus with diabetic polyneuropathy Type 1 diabetes mellitus with hyperglycemia CAD (coronary artery disease) Hypertension Chief Complaint CEA: 2 wk f/u Pleura l Effusion anemia, screening anemia, screening Amb Documentation Amb Documentation Amb Documentation Amb Documentation sob sob SINUS INFECTION 4 month follow up pump Reason for Visit Recurrent right pleu ral effusion Acute on chronic HFrEF (heart failure with reduced ejection fraction) Colon polyp Hypercholesterolemia Ischemic cardiomyopathy Recurrent right pleural effusion Type 1 diabetes mellitus with diabetic polyneuropathy Type 1 diabetes mellitus with hyperglycemia Hypertension BMI 32.0-32.9,adult Dietary counseling and surveillance Hypoglycemia Insulin long-term use Insulin pump titration Hypertension Chief Complaint CEA: 2 wk f/u Pleura l Effusion anemia, screening anemia, screening Amb Documentation Amb Documentation Amb Documentation Amb Documentation sob sob SINUS INFECTION 4 month follow up pump Bilat leg swelling Reason for Visit Recurrent right pleu ral effusion Acute on chronic HFrEF (heart failure with reduced ejection fraction) Colon polyp Hypercholesterolemia Ischemic cardiomyopathy Recurrent right pleural effusion Type 1 diabetes mellitus with diabetic polyneuropathy Type 1 diabetes mellitus with hyperglycemia Hypertension BMI 34.0-34.9,adult Dietary counseling and surveillance Hypoglycemia Insulin long-term use Insulin pump titration Type 1 diabetes mellitus with diabetic polyneuropathy Hypertension Chief Complaint CEA: 2 wk f/u Pleura l Effusion anemia, screening anemia, screening Amb Documentation Amb Documentation Amb Documentation Amb Documentation sob sob SINUS INFECTION 4 month follow up pump Bilat leg swelling swollen legs Reason for Visit Recurrent right pleu ral effusion Acute on chronic HFrEF (heart failure with reduced ejection fraction) Colon polyp Hypercholesterolemia Ischemic cardiomyopathy Recurrent right pleural effusion Type 1 diabetes mellitus with diabetic polyneuropathy Type 1 diabetes mellitus with hyperglycemia Hypertension BMI 34.0-34.9,adult Dietary counseling and surveillance Hypoglycemia Insulin long-term use Insulin pump titration Type 1 diabetes mellitus with diabetic polyneuropathy Hypertension Acute on chronic HFrEF (heart failure with reduced ejection fraction) Ischemic cardiomyopathy Type 1 diabetes mellitus with diabetic polyneuropathy Type 1 diabetes mellitus with hyperglycemia Hypertension Chief Complaint Amb Documentation Amb Documentation Amb Documentation Amb Documentation sob sob SINUS INFECTION 4 month follow up pump Bilat leg swelling swollen legs Right Colon Mass Reason for Visit Recurrent right pleu ral effusion Acute on chronic HFrEF (heart failure with reduced ejection fraction) Colon polyp Hypercholesterolemia Ischemic cardiomyopathy Recurrent right pleural effusion Type 1 diabetes mellitus with diabetic polyneuropathy Type 1 diabetes mellitus with hyperglycemia Hypertension BMI 34.0-34.9,adult Dietary counseling and surveillance Hypoglycemia Insulin long-term use Insulin pump titration Type 1 diabetes mellitus with diabetic polyneuropathy Hypertension Acute on chronic HFrEF (heart failure with reduced ejection fraction) Chronic kidney disease Ischemic cardiomyopathy Tubulovillous adenoma of large intestine Type 1 diabetes mellitus with diabetic polyneuropathy Type 1 diabetes mellitus with hyperglycemia Hypertension Chief Complaint 4 month follow up pump Bilat leg swelling swollen legs Right Colon Mass Amb Documentation hospital follow up Reason for Visit Acute on chronic HFr EF (heart failure with reduced ejection fraction) Colon polyp Hypercholesterolemia Ischemic cardiomyopathy Recurrent right pleural effusion Type 1 diabetes mellitus with diabetic polyneuropathy Type 1 diabetes mellitus with hyperglycemia Hypertension BMI 34.0-34.9,adult Dietary counseling and surveillance Insulin long-term use Insulin pump titration Type 1 diabetes mellitus with diabetic polyneuropathy Hypertension Acute on chronic HFrEF (heart failure with reduced ejection fraction) Chronic kidney disease Ischemic cardiomyopathy Tubulovillous adenoma of large intestine Type 1 diabetes mellitus with diabetic polyneuropathy Type 1 diabetes mellitus with hyperglycemia Hypertension Acute blood loss anemia Acute on chronic HFrEF (heart failure with reduced ejection fraction) Chronic kidney disease Hypercholesterolemia Ischemic cardiomyopathy NSTEMI (non-ST elevated myocardial infarction) Recurrent right pleural effusion Tubulovillous adenoma of large intestine Type 1 diabetes mellitus with diabetic polyneuropathy Type 1 diabetes mellitus with hyperglycemia Hypertension Chief Complaint pump Bilat leg swelling swollen legs Right Colon Mass Amb Documentation hospital follow up Amb Documentation hospital follow up Reason for Visit BMI 34.0-34.9,adult Dietary counseling and surveillance Insulin long-term use Insulin pump titration Type 1 diabetes mellitus with diabetic polyneuropathy Hypertension Acute on chronic HFrEF (heart failure with reduced ejection fraction) Chronic kidney disease Ischemic cardiomyopathy Tubulovillous adenoma of large intestine Type 1 diabetes mellitus with diabetic polyneuropathy Type 1 diabetes mellitus with hyperglycemia Hypertension Acute blood loss anemia Acute on chronic HFrEF (heart failure with reduced ejection fraction) Chronic kidney disease Ischemic cardiomyopathy NSTEMI (non-ST elevated myocardial infarction) Recurrent right pleural effusion Tubulovillous adenoma of large intestine Type 1 diabetes mellitus with diabetic polyneuropathy Type 1 diabetes mellitus with hyperglycemia Hypertension Acute blood loss anemia Acute on chronic HFrEF (heart failure with reduced ejection fraction) Chronic kidney disease Ischemic cardiomyopathy NSTEMI (non-ST elevated myocardial infarction) Recurrent right pleural effusion Type 1 diabetes mellitus with diabetic polyneuropathy Type 1 diabetes mellitus with hyperglycemia Hypertension Medications Administered Section Inactive Administered Medications - [...] Referral Specialty Diagnoses / Procedures Referred By Nawaf reardon Referred To Contact Procedures CARDIOVASCULAR MEDICINE OP FOLLOW UP APPT ORDER Emmanuel Sparks MD [address] [place] [address] Referral ID Status Reason Start Date Expiration Date Visits Requested Visits Authorized [id number] Ref Not Required PCP Requested Referral 04/12/2023 [...] DATE CREATED AUTHOR AUTHOR'S ORGANIZ ATION 04/19/2021 [facility] DATE CREATED AUTHOR AUTHOR'S ORGANIZ ATION 02/24/2023 [facility] DATE CREATED AUTHOR AUTHOR'S ORGANIZ ATION 09/10/2023 [facility] DATE CREATED AUTHOR AUTHOR'S ORGANIZ ATION 10/06/2023 [facility] EPIC DATE CREATED AUTHOR AUTHOR'S MORENITA RICARDO 10/24/2023 [facility] Source Comments (unrecognize d section and content) In the event this informatio n is protected by the Federal Confidentiality of Alcohol and Drug Abuse Patient Records regulations: The Federal rules restrict any use of the information to criminally investigate or prosecute any alcohol or drug abuse patient.[facility] the event this information is protected by the Federal Confidentiality of Alcohol and Drug Abuse Patient Records regulations: The Federal rules restrict any use of the information to criminally investigate or prosecute any alcohol or drug abuse patient.[facility] the event this information is protected by the Federal Confidentiality of Alcohol and Drug Abuse Patient Records regulations: The Federal rules restrict any use of the information to criminally investigate or prosecute any alcohol or drug abuse patient.[facility] the event this information is protected by the Federal Confidentiality of Alcohol and Drug Abuse Patient Records regulations: The Federal rules restrict any use of the information to criminally investigate or prosecute any alcohol or drug abuse patient.[facility] the event this information is protected by the Federal Confidentiality of Alcohol and Drug Abuse Patient Records regulations: The Federal rules restrict any use of the information to criminally investigate or prosecute any alcohol or drug abuse patient.[facility] the event this information is protected by the Federal Confidentiality of Alcohol and Drug Abuse Patient Records regulations: The Federal rules restrict any use of the information to criminally investigate or prosecute any alcohol or drug abuse patient.[facility] the event this information is protected by the Federal Confidentiality of Alcohol and Drug Abuse Patient Records regulations: The Federal rules restrict any use of the information to criminally investigate or prosecute any alcohol or drug abuse patient.[facility] the event this information is protected by the Federal Confidentiality of Alcohol and Drug Abuse Patient Records regulations: The Federal rules restrict any use of the information to criminally investigate or prosecute any alcohol or drug abuse patient.[facility] the event this information is protected by the Federal Confidentiality of Alcohol and Drug Abuse Patient Records regulations: The Federal rules restrict any use of the information to criminally investigate or prosecute any alcohol or drug abuse patient.[facility] the event this information is protected by the Federal Confidentiality of Alcohol and Drug Abuse Patient Records regulations: The Federal rules restrict any use of the information to criminally investigate or prosecute any alcohol or drug abuse patient.[facility] the event this information is protected by the Federal Confidentiality of Alcohol and Drug Abuse Patient Records regulations: The Federal rules restrict any use of the information to criminally investigate or prosecute any alcohol or drug abuse patient.[facility] the event this information is protected by the Federal Confidentiality of Alcohol and Drug Abuse Patient Records regulations: The Federal rules restrict any use of the information to criminally investigate or prosecute any alcohol or drug abuse patient.[facility] the event this information is protected by the Federal Confidentiality of Alcohol and Drug Abuse Patient Records regulations: The Federal rules restrict any use of the information to criminally investigate or prosecute any alcohol or drug abuse patient.[facility] the event this information is protected by the Federal Confidentiality of Alcohol and Drug Abuse Patient Records regulations: The Federal rules restrict any use of the information to criminally investigate or prosecute any alcohol or drug abuse patient.[facility] the event this information is protected by the Federal Confidentiality of Alcohol and Drug Abuse Patient Records regulations: The Federal rules restrict any use of the information to criminally investigate or prosecute any alcohol or drug abuse patient.[facility] the event this information is protected by the Federal Confidentiality of Alcohol and Drug Abuse Patient Records regulations: The Federal rules restrict any use of the information to criminally investigate or prosecute any alcohol or drug abuse patient.[facility] the event this information is protected by the Federal Confidentiality of Alcohol and Drug Abuse Patient Records regulations: The Federal rules restrict any use of the information to criminally investigate or prosecute any alcohol or drug abuse patient.[facility] the event this information is protected by the Federal Confidentiality of Alcohol and Drug Abuse Patient Records regulations: The Federal rules restrict any use of the information to criminally investigate or prosecute any alcohol or drug abuse patient.[facility] the event this information is protected by the Federal Confidentiality of Alcohol and Drug Abuse Patient Records regulations: The Federal rules restrict any use of the information to criminally investigate or prosecute any alcohol or drug abuse patient.[facility] the event this information is protected by the Federal Confidentiality of Alcohol and Drug Abuse Patient Records regulations: The Federal rules restrict any use of the information to criminally investigate or prosecute any alcohol or drug abuse patient.[facility] the event this information is protected by the Federal Confidentiality of Alcohol and Drug Abuse Patient Records regulations: The Federal rules restrict any use of the information to criminally investigate or prosecute any alcohol or drug abuse patient.[facility] the event this information is protected by the Federal Confidentiality of Alcohol and Drug Abuse Patient Records regulations: The Federal rules restrict any use of the information to criminally investigate or prosecute any alcohol or drug abuse patient.[facility] Care Teams (unrecognized sec tion and content) Team Status: Active Member Role Status Dates Epifanio Mcgowan DO Primary Care Provider Active Team Status: Inactive Member Role Status Dates Epifanio Mcgowan DO Primary Care Provide r, Attending Provider Active Start: July 18, 2023 End: July 18, 2023 Team Status: Inactive Member Role Status Dates Epifanio Mcgowan DO Primary Care Provider Active Start: August 16, 2023 End: August 16, 2023 Tondra K Mapus , TRAIN DISPATCHER Attending Provider Active Start: August 16, 2023 End: August 16, 2023 Team Status: Inactive Member Role Status Dates Epifanio Mcgowan DO Primary Care Provider Active Start: August 17, 2023 End: August 17, 2023 Bravo Whatley DO Emergency Provider Active Start: August 17, 2023 End: August 17, 2023 Team Status: Active Member Role Status Dates Epifanio Mcgowan DO Primary Care Provider Active Start: August 18, 2023 Emmanuel Sparks MD Attending Provider Active Start: 2023 Team Status: Inactive Member Role Status Dates Epifanio Mcgowan DO Primary Care Provide r, Attending Provider Active Start: August 24, 2023 End: August 24, 2023 Team Status: Inactive Member Role Status Dates Epifanio Mcgowan DO Primary Care Provider Active Start: September 02, 2023 End: September 02, 2023 Shaina Frazier MD Attending Provider Active Sta rt: September 02, 2023 End: September 02, 2023 Team Status: Active Member Role Status Dates Epifanio Mcgowan DO Primary Care Provider Active Start: September 11, 2023 Ben Nguyen MD Attending Provider Active Start : September 11, 2023 Team Status: Active Member Role Status Dates Epifanio Mcgowan DO Primary Care Provider Active Start: September 12, 2023 Ben Nguyen MD Attending Provider Active Start : September 12, 2023 Team Status: Active Member Role Status Dates Epifanio Mcgowan DO Primary Care Provider Active Start: September 13, 2023 Ben Nguyen MD Attending Provider Active Start : September 13, 2023 Team Status: Active Member Role Status Dates Epifanio Mcgowan DO Primary Care Provider Active Start: September 14, 2023 Ben Nguyen MD Attending Provider Active Start : September 14, 2023 Team Status: Active Member Role Status Dates Epifanio Mcgowan DO Primary Care Provider Active Start: September 15, 2023 Ben Nguyen MD Attending Provider Active Start : September 15, 2023 Team Status: Active Member Role Status Dates Epifanio Mcgowan DO Primary Care Provider Active Start: September 16, 2023 Ben Nguyen MD Attending Provider Active Start : September 16, 2023 Team Status: Active Member Role Status Dates Epifanio Mcgowan DO Primary Care Provider Active Start: September 17, 2023 Ben Nguyen MD Attending Provider Active Start : September 17, 2023 Team Status: Active Member Role Status Dates Epifanio Mcgowan DO Primary Care Provider Active Start: September 18, 2023 Abelardo Hawk MD Attending Provider Active Start : September 18, 2023 Team Status: Active Member Role Status Dates Epifanio Mcgowan , DO Primary Care Provider Active Start: September 19, 2023 Ben Nguyen MD Attending Provider Active Start : September 19, 2023 Team Status: Active Member Role Status Dates Epifanio Mcgowan , DO Primary Care Provider Active Start: September 20, 2023 Kristan Delgado MD Attending Provider Active Start: September 20, 2023 Team Status: Active Member Role Status Dates Epifanio Mcgowan DO Primary Care Provider Active Start: September 21, 2023 Kristan Delgado MD Attending Provider Active Start: September 21, 2023 Team Status: Active Member Role Status Dates Epifanio Mcgowan DO Primary Care Provider Active Start: September 22, 2023 Kristan Delgado MD Attending Provider Active Start: September 22, 2023 Team Status: Active Member Role Status Dates Epifanio Mcgowan DO Primary Care Provide r, Attending Provider Active Start: September 23, 2023 Team Status: Active Member Role Status Dates Epifanio Mcgowan , DO Primary Care Provide r, Attending Provider Active Start: September 24, 2023 Team Status: Active Member Role Status Dates Epifanio Mcgowan DO Primary Care Provide r, Attending Provider Active Start: September 25, 2023 Team Status: Active Member Role Status Dates Epifanio Mcgowan , DO Primary Care Provide r, Attending Provider Active Start: September 26, 2023 Team Status: Active Member Role Status Dates Epifanio Mcgowan DO Primary Care Provide r, Attending Provider Active Start: September 27, 2023 Team Status: Active Member Role Status Dates Epifanio Mcgowan , DO Primary Care Provide r, Attending Provider Active Start: September 28, 2023 Team Status: Active Member Role Status Dates Epifanio Mcgowan DO Primary Care Provider Active Start: September 30, 2023 DAVINA Chen Attending Provider Active St art: September 30, 2023 Team Status: Inactive Member Role Status Dates Epifanio Mcgowan DO Primary Care Provide r, Attending Provider Active Start: October 12, 2023 End: October 12, 2023 Team Status: Active Member Role Status Dates Epifanio Mcgowan DO Primary Care Provider Active Start: June 06, 2023 Latosha Palacios Attending Provider Active Start: June 06, 2023 Team Status: Active Member Role Status Dates Epifanio Mcgowan DO Primary Care Provider Active Start: June 22, 2023 End: June 22, 2023 Kristan Richardson Jr, MD Emergency Provider Active Start: June 22, 2023 End: June 22, 2023 Damian Blevins DO Admit Provider, Atte nding Provider, Other Provider Active Start: June 22, 2023 End: June 22, 2023 Magnus Church DO Attending Provider Active Start: June 22, 2023 End: June 22, 2023 Ashish Lozano MD Other Provider Active Start: June 22, 2023 End: June 22, 2023 Team Status: Active Member Role Status Dates Epifanio Mcgowan DO Primary Care Provider Active Start: June 22, 2023 End: June 22, 2023 Kristan Richardson Jr, MD Emergency Provider Active Start: June 22, 2023 End: June 22, 2023 Damian Blevins DO Admit Provider Active Start: June 22, 2023 End: June 22, 2023 Magnus Church DO Other Provider Active Start: June 22, 2023 End: June 22, 2023 Ashish Lozano MD Attending Pr ovider, Other Provider Active Start: June 22, 2023 End: June 22, 2023 Team Status: Inactive Member Role Status Dates Epifanio Mcgowan DO Primary Care Provider Active Start: July 11, 2023 End: July 11, 2023 Selin Francois APRN [employer]-C Attending Provider Act anali Start: July 11, 2023 End: July 11, 2023 Hydrometer Tester Relationship Specialty Start Date End Date Epifanio Mcgowan DO PCP - General Internal Medicine 03/18/15 Emmanuel Sparks MD [address] [place] [address] Primary Staff Physician Cardiology 10/03/20 No, Referral Referring Cardiology 10/23/20 Hydrometer Tester Relationship Specialty Start Date End Date Epifanio Mcgowan DO PCP - General Internal Medicine 03/18/15 Emmanuel Sparks MD [address] [place] [address] Primary Staff Physician Cardiology 10/03/20 No, Referral Referring Cardiology 10/23/20 Hydrometer Tester Relationship Specialty Start Date End Date Epifanio Mgcowan DO PCP - General Internal Medicine 03/18/15 Emmanuel Sparks MD [address] [place] [address] Primary Staff Physician Cardiology 10/03/20 No, Referral Referring Cardiology 10/23/20 Team Status: Inactive Member Role Status Dates Epifanio Mcgowan , DO Primary Care Provider Active Selin Leon PA-C Attending Provider Active Team Status: Active Member Role Status Dates Epifanio Mcgowan , DO Primary Care Provider Active Suzi Saxena APRN Attending Provider Active Team Status: Inactive Member Role Status Dates Epifanio Mcgowan , DO Primary Care Provider Active Suzi Saxena APRN Attending Provider Active Hydrometer Tester Relationship Specialty Start Date End Date Epifanio Mcgowan DO PCP - General Internal Medicine 03/18/15 Emmanuel Sparks MD [address] [place], [place] [id number] Primary Staff Physician Cardiology 10/03/20 No, Referral Referring Cardiology 10/23/20 Hydrometer Tester Relationship Specialty Start Date End Date Epifanio Mcgowan DO PCP - General Internal Medicine 03/18/15 Emmanuel Sparks MD [address] [place] [address] Primary Staff Physician Cardiology 10/03/20 No, Referral Referring Cardiology 10/23/20 Hydrometer Tester Relationship Specialty Start Date End Date Epifanio Mcgowan DO PCP - General Internal Medicine 03/18/15 Emmanuel Sparks MD [address] [place] [address] Primary Staff Physician Cardiology 10/03/20 No, Referral Referring Cardiology 10/23/20 Hydrometer Tester Relationship Specialty Start Date End Date Epifanio Mcgowan DO PCP - General Internal Medicine 03/18/15 Emmanuel Sparks MD [address] [place] [address] Primary Staff Physician Cardiology 10/03/20 No, Referral Referring Cardiology 10/23/20 Hydrometer Tester Relationship Specialty Start Date End Date Epifanio Mcgowan DO PCP - General Internal Medicine 03/18/15 Emmanuel Sparks MD [address] [place] [address] Primary Staff Physician Cardiology 10/03/20 No, Referral Referring Cardiology 10/23/20 Hydrometer Tester Relationship Specialty Start Date End Date Epifanio Mcgowan DO PCP - General Internal Medicine 03/18/15 Emmanuel Sparks MD [address] [id number] Primary Staff Physician Cardiology 10/03/20 No, Referral Referring Cardiology 10/23/20 Hydrometer Tester Relationship Specialty Start Date End Date Epifanio Mcgowan DO PCP - General Internal Medicine 03/18/15 Emmanuel Sparks MD [address] [place] [address] Primary Staff Physician Cardiology 10/03/20 No, Referral Referring Cardiology 10/23/20 Hydrometer Tester Relationship Specialty Start Date End Date Epifanio Mcgowan DO PCP - General Internal Medicine 03/18/15 Emmanuel Sparks MD [address] [place] [address] Primary Staff Physician Cardiology 10/03/20 No, Referral Referring Cardiology 10/23/20 Hydrometer Tester Relationship Specialty Start Date End Date Epifanio Mcgowan DO PCP - General Internal Medicine 03/18/15 Emmanuel Sparks MD [address] [place] [address] Primary Staff Physician Cardiology 10/03/20 No, Referral Referring Cardiology 10/23/20 Hydrometer Tester Relationship Specialty Start Date End Date Epifanio Mcgowan DO PCP - General Internal Medicine 03/18/15 Emmanuel Sparks MD [address] [place] [address] Primary Staff Physician Cardiology 10/03/20 No, Referral Referring Cardiology 10/23/20 Hydrometer Tester Relationship Specialty Start Date End Date Epifanio Mcgowan DO PCP - General Internal Medicine 03/18/15 Emmanuel Sparks MD [address] [place] [address] Primary Staff Physician Cardiology 10/03/20 No, Referral Referring Cardiology 10/23/20 Team Status: Inactive Member Role Status Dates Suzi Saxena APRN Attending Provider Active Start: February 02, 2023 End: February 02, 2023 Team Status: Inactive Member Role Status Dates Epifanio Mcgowan DO Primary Care Provider Active Start: February 02, 2023 End: February 02, 2023 Suzi Saxena APRN Attending Provider Active Start: February 02, 2023 End: February 02, 2023 Team Status: Inactive Member Role Status Dates Epifanio Mcgowan DO Primary Care Provider Active Start: February 16, 2023 End: February 16, 2023 DANITA MayoP- Attending Provider Active Start: February 16, 2023 End: February 16, 2023 Team Status: Inactive Member Role Status Dates Epifanio Mcgowan DO Attending Provider Active Sta rt: March 09, 2023 End: March 09, 2023 Team Status: Inactive Member Role Status Dates Epifanio Mcgowan DO Attending Provider Active Sta rt: March 18, 2023 End: March 18, 2023 Hydrometer Tester Relationship Specialty Start Date End Date Epifanio Mcgowan DO PCP - General Internal Medicine 03/18/15 Emmanuel Sparks MD [address] [place] [address] Primary Staff Physician Cardiology 10/03/20 No, Referral Referring Cardiology 10/23/20 Team Status: Inactive Member Role Status Dates Epifanio Mcgowan DO Primary Care Provider Active Start: May 09, 2023 End: May 09, 2023 Suzi Saxena APRN Attending Provider Active Start: May 09, 2023 End: May 09, 2023 Team Status: Inactive Member Role Status Dates Epifanio Mcgowan DO Primary Care Provider Active Start: May 12, 2023 End: May 12, 2023 Ashish Lozano MD Attending Provider Active Start: May 12, 2023 End: May 12, 2023 Team Status: Inactive Member Role Status Dates Epifanio Mcgowan DO Primary Care Provider Active Start: May 16, 2023 End: May 16, 2023 Ashish Lozano MD Attending Provider Active Start: May 16, 2023 End: May 16, 2023 Team Status: Active Member Role Status Dates Epifanio Mcgowan DO Primary Care Provider Active Start: May 16, 2023 Ashish Lozano MD Attending Pr ovider, Other Provider Active Start: May 16, 2023 Team Status: Inactive Member Role Status Dates Epifanio Mcgowan DO Primary Care Provider Active Start: May 26, 2023 End: May 26, 2023 Ashish Lozano MD Attending Provider Active Start: May 26, 2023 End: May 26, 2023 Team Status: Inactive Member Role Status Dates Epifanio Mcgowan DO Primary Care Provider Active Start: June 03, 2023 End: June 03, 2023 Florence Milner MD Attending Provider Active Start: June 03, 2023 End: June 03, 2023 Team Status: Active Member Role Status Dates Epifanio Mcgowan DO Primary Care Provider Active Start: June 03, 2023 Florence Milner MD Attending Provider, Other Provider Act anali Start: June 03, 2023 Team Status: Active Member Role Status Dates Epifanio Mcgowan DO Primary Care Provider Active Start: June 22, 2023 Kristan Richardson Jr, MD Emergency Provider Active Start: June 22, 2023 Damian Blevins DO Admit Provider, Atte nding Provider Active Start: June 22, 2023 Team Status: Active Member Role Status Dates Epifanio Mcgowan DO Primary Care Provider Active Start: June 22, 2023 Kristan Richardson Jr, MD Emergency Provider Active Start: June 22, 2023 Damian Blevins DO Admit Provider, Atte nding Provider, Other Provider Active Start: June 22, 2023 Magnus Church DO Attending Provider Active Start: June 22, 2023 End: June 22, 2023 Ashish Lozano MD Other Provider Active Start: June 22, 2023 End: June 22, 2023 Hydrometer Tester Relationship Specialty Start Date End Date Epifanio Mcgowan DO PCP - General Internal Medicine 03/18/15 Emmanuel Sparks MD [address] [id number] Primary Staff Physician Cardiology 10/03/20 No, Referral Referring Cardiology 10/23/20 Hydrometer Tester Relationship Specialty Start Date End Date Epifanio Mcgowan DO PCP - General Internal Medicine 03/18/15 Emmanuel Sparks MD [address] [place] [address] Primary Staff Physician Cardiology 10/03/20 No, Referral Referring Cardiology 10/23/20 Hydrometer Tester Relationship Specialty Start Date End Date Epifanio Mcgowan DO PCP - General Internal Medicine 03/18/15 Emmanuel Sparks MD [address] [place] [address] Primary Staff Physician Cardiology 10/03/20 No, Referral Referring Cardiology 10/23/20 Hydrometer Tester Relationship Specialty Start Date End Date Epifanio Mcgowan DO PCP - General Internal Medicine 03/18/15 Emmanuel Sparks MD [address] [place] [address] Primary Staff Physician Cardiology 10/03/20 No, Referral Referring Cardiology 10/23/20 Marla Wayne Ms [address] [place] [address] Referring Cardiology 09/20/23 Hydrometer Tester Relationship Specialty Start Date End Date Epifanio Mcgowan DO PCP - General Internal Medicine 03/18/15 Emmanuel Sparks MD [address] [place] [address] Primary Staff Physician Cardiology 10/03/20 No, Referral Referring Cardiology 10/23/20 Marla Wayne [address] [place] [address] Referring Cardiology 09/20/23 Hydrometer Tester Relationship Specialty Start Date End Date Epifanio Mcgowan DO PCP - General Internal Medicine 03/18/15 Emmanuel Sparks MD [address] [place] [address] Primary Staff Physician Cardiology 10/03/20 No, Referral Referring Cardiology 10/23/20 ChinoAnastasiaMarla Samano Ms [address] [place] [address] Referring Cardiology 09/20/23 Team Status: Active Member Role Status Dates Epifanio Mcgowan DO Primary Care Provide r, Attending Provider Active Start: October 14, 2023 Team Status: Active Member Role Status Dates Epifanio Mcgowan DO Primary Care Provide r, Attending Provider Active Start: October 18, 2023 Team Status: Active Member Role Status Liam Mcgowan DO Primary Care Provider Active Start: October 24, 2023 Maite Moctezuma PA-C Attending Provider Active Start: October 24, 2023 Team Status: Active Member Role Status Liam Mcgowan DO Primary Care Provider Active Start: October 25, 2023 Giancarlo Cortez MD Attending Provider Active Sta rt: October 25, 2023 Team Status: Active Member Role Status Liam Mcgowan DO Primary Care Provider Active Start: October 26, 2023 Giancarlo Cortez MD Attending Provider Active Sta rt: October 26, 2023 Team Status: Active Member Role Status Liam Mcgowan DO Primary Care Provider Active Start: October 27, 2023 Giancarlo Cortez MD Attending Provider Active Sta rt: October 27, 2023 Team Status: Active Member Role Status Liam Mcgowan DO Primary Care Provider Active Start: October 28, 2023 Giancarlo Cortez MD Attending Provider Active Sta rt: October 28, 2023 Team Status: Active Member Role Status Liam Mcgowan DO Primary Care Provider Active Start: November 01, 2023 DAVINA Chen Attending Provider Active St art: November 01, 2023 Team Status: Inactive Member Role Status Liam Mcgowan DO Primary Care Provide r, Attending Provider Active Start: November 02, 2023 End: November 02, 2023 REASON FOR VISIT (unrecogniz ed section and content) Reason Comments Refill Request Reason Comments Follow Up Reason Comments Counseling Reason Comments Outside Labs Received 12/28 Reason Comments Rx Refills Reason Comments Follow Up Reason Comments Follow Up Reason Comments Spirometry Specialty Diagnoses / Procedures Referred By Contac t Referred To Contact Diagnoses NSTEMI Procedures N/A [facility] [address] [id number] Referral ID Status Reason Start Date Expiration Date Visits Re quested Visits Authorized [id number] 1 1 Specialty Diagnoses / Procedures Referred By Contac t Referred To Contact Diagnoses NSTEMI Procedures N/A [facility] [address] [id number] Reason Comments Follow Up Phone Call Relate care dischar ge follow [id number] clear Goals (unrecognized section and content) Goals may [...] BE BASED ON THE PRIMARY CLINICAL RECORDS. [facility]. provides no warranty or guarantee of the accuracy or completeness of information in this document.
[2023-11-03 06:20] LABS: Basophils Percent Auto 0.1 % (0.2-2.0); Eosinophils Percent Auto 0.1 % (0.9-7.0); Hematocrit 30.5 % (42.0-54.0); Hemoglobin 10.1 g/dL (14.0-18.0); Immature Granulocytes Abs Auto 0.11 10^3/uL (0.00-0.03); Immature Granulocytes Pct Auto 0.7 % (0.0-0.5); Lymphocytes Absolute Auto 0.7 10^3/uL (1.2-3.8); Lymphocytes Percent Auto 4.7 % (20.5-60.0); Mean Corpuscular HGB Conc 33.1 g/dL (29.9-35.2); Mean Corpuscular Hemoglobin 26.9 pg (25.9-34.0); Mean Corpuscular Volume 81.1 fL (80.0-94.0); Mean Platelet Volume 10.6 fL (9.5-13.5); Monocytes Absolute Auto 1.4 10^3/uL (0.3-0.8); Monocytes Percent Auto 9.4 % (1.7-12.0); Platelet Count 291 10^3/uL (150-450); Red Blood Count 3.76 10^6/uL (4.70-6.10); White Blood Count 15.3 10^3/uL (4.0-11.0)
[2023-11-03 06:31] LABS: pH VBG 7.289 (7.330-7.430)
[2023-11-03 06:32] LABS: PCO2 VBG 56.5 mmHg (40.0-52.0)
[2023-11-03 06:49] LABS: Alanine Aminotransferase 165 U/L (16-63); Albumin Globulin Ratio 0.8; Albumin Level 2.8 g/dL (3.4-5.0); Alkaline Phosphatase 207 U/L (46-116); Anion Gap 13.9; Aspartate Amino Transferase 208 U/L (15-37); BUN Creatinine Ratio 26.8; Bilirubin Total 0.9 mg/dL (0.2-1.0); Calcium 8.5 mg/dL (8.5-10.1); Carbon Dioxide 27.2 mmol/L (21.0-32.0); Chloride 89 mmol/L (98-107); Estimated GFR (African America 26 (>=60); Estimated GFR (Non-African Ame 21 (>=60); Globulin 3.3 g/dL; Potassium 5.1 mmol/L (3.5-5.1); Sodium 125 mmol/L (136-145); Total Protein 6.1 g/dL (6.4-8.2)
[2023-11-03 07:01] LABS: Glucose 532 mg/dL (74-106)
--- NOTE | 2023-11-03 07:58 | PC.NURSE ---
[address] [facility] for bg. lab collected specimen for bg. awaiting result.
[2023-11-03 08:04] LABS: Glucose 510 mg/dL (74-106)
[2023-11-03] MEDS: NOREPINEPHRINE BITARTRATE/D5W 4 MG/250 ML PREMIX 131.25 MG IV (09:16)
[2023-11-03] MEDS: CLOPIDOGREL BISULFATE 75 MG TABLET PO (09:18)
[2023-11-03] MEDS: ASPIRIN 81 MG TABLET.DR PO (09:18)
[2023-11-03] MEDS: FLUTICASONE PROPIONATE 50 MCG NASAL SPRAY 2 SPRAY NS (09:18)
[2023-11-03] MEDS: MAGNESIUM OXIDE 400 MG TABLET PO (09:18)
[2023-11-03] MEDS: ALFUZOSIN HCL 10 MG TAB.ER.24H PO (09:21)
[2023-11-03] MEDS: INSULIN REGULAR IN 0.9 % NACL 100 UNIT/100 ML PLAST..BAG 12.5 UNIT IV (09:23)
--- NOTE | 2023-11-03 09:42 | PC.NURSE ---
pt c/o not being able to urinate. scant amount of yellow urine in neal tubing. bladder scanned for 63ml. checked neal tubing for kinks. assisted pt with repositioning.
--- NOTE | 2023-11-03 10:07 | US_ITS ---
[address] [address] Patient Name: RADHA BRAXTON MRN: [id number] date: 1955 Sex: M Assigned Patient Location: ICU Current Patient Location: ICU Accession/Order Number: [id number] Exam Date: 11/03/2023 10:30 Report Date: 11/03/2023 11:23 At the request of: SHAIKH LIEN Procedure: US renal BI EXAMINATION: US renal BI HISTORY: oligourice renal failure COMPARISON: No relevant comparison available. TECHNIQUE: Ultrasound examination was performed of the kidneys and urinary bladder. FINDINGS: RIGHT KIDNEY: Contains a nonobstructing 6 mm stone. No appreciable mass. Normal parenchymal echogenicity. Color Doppler demonstrates blood flow within the kidney. Kidney: 12.2 x 6.3 x 6.1 cm LEFT KIDNEY: No evidence of pelvocaliectasis, mass, or calculi. Normal parenchymal echogenicity. Color Doppler demonstrates blood flow within the kidney. Kidney: 10.5 x 5.9 x 6.2 cm BLADDER: Empty bladder with Nicole catheter in place. US/US renal BI IMPRESSION: 1. Nonobstructing right nephrolithiasis. 2. Unremarkable left kidney. 3. Nicole catheter within nondistended urinary bladder; limited evaluation. Electronically authenticated by: JETHRO SHARPE Date: 11/03/2023 11:23
--- NOTE | 2023-11-03 10:15 | CM.NOTE ---
Rounds made with Dr. Gonzales. Dr. Gonzales discusses symptoms and plan of care. No discharge today.
[2023-11-03 10:29] LABS: Anion Gap 12.5; BUN Creatinine Ratio 26.2; Calcium 8.5 mg/dL (8.5-10.1); Carbon Dioxide 28.4 mmol/L (21.0-32.0); Chloride 89 mmol/L (98-107); Estimated GFR (African America 24 (>=60); Estimated GFR (Non-African Ame 20 (>=60); Glucose 453 mg/dL (74-106); Potassium 5.9 mmol/L (3.5-5.1)
[2023-11-03 10:31] LABS: Sodium 124 mmol/L (136-145)
--- NOTE | 2023-11-03 10:32 | P.IMPN_ITS ---
Progress Note: A&P Assessment and Plan (1) Cardiogenic shock: Assessment and Plan: Now has signs and symptoms of cardiogenic shock. He is currently on Levophed infusion. Overnight, his blood pressure was as low as 70/40. Will order a PICC line for continuous Levophed infusion. Needs close hemodynamic monitoring in ICU. Awaiting bed availability at [facility]. (2) Acute on chronic congestive heart failure: Assessment and Plan: Evidence of significant volume overload with generalized anasarca complicated by cardiogenic shock. Will give IV Bumex bolus and start patient on IV Bumex drip continuous infusion. Monitor urine output, serum creatinine, electrolytes closely. Monitor intake and output and daily weights. Qualifiers: Heart failure type: combined systolic and diastolic Qualified Code(s): I50.43 - Acute on chronic combined systolic (congestive) and diastolic (congestive) heart failure (3) Chronic respiratory failure with hypoxia: Assessment and Plan: Surprisingly his baseline hypoxia has not worsened. Continue with close hemodynamic monitoring. Will get an ABG as patient is lethargic and slightly confused intermittently. (4) Acute kidney injury: Assessment and Plan: Worsening renal function with no urine output. Start patient on Bumex continuous infusion. Monitor urine output, serum creatinine, electrolytes closely. (5) Hyponatremia: Assessment and Plan: Multifactorial likely secondary to hyperglycemia and volume overload. Monitor closely. (6) Lactic acidosis: Assessment and Plan: Due to hypoperfusion from congestive heart failure. Continue with IV diuresis. (7) Hyperglycemia due to type 1 diabetes mellitus: Assessment and Plan: Does not appear to be in DKA. Patient on continuous insulin infusion. Will start patient on 20 units of Levemir for basal coverage (8) CAD (coronary artery disease): Assessment and Plan: Post status post recent CABG. Accepted for transfer to [facility]. Awaiting bed ability Qualifiers: Associated angina: without angina Coronary Disease-Associated Artery/Lesion type: [place] artery [place] vs. transplanted heart: [place] heart Qualified Code(s): I25.10 - Atherosclerotic heart disease of [place] coronary artery without angina pectoris (9) Hyperlipemia: Assessment and Plan: Continue with statin. Qualifiers: Hyperlipidemia type: mixed hyperlipidemia Qualified Code(s): E78.2 - Mixed hyperlipidemia (10) Cardiorenal syndrome: Assessment and Plan: Acute kidney injury from cardiorenal syndrome. Oliguric with no urine output overnight. On Levophed infusion for cardiogenic shock. Started patient on Bumex drip. Renal ultrasound ordered. Qualifiers: Heart failure presence: with heart failure Hypertensive chronic kidney disease stage: stage 1-4 or unspecified chronic kidney disease Qualified Code(s): I13.0 - Hypertensive heart and chronic kidney disease with heart failure and stage 1 through stage 4 chronic kidney disease, or unspecified chronic kidney disease (11) Hyperkalemia: (12) D-dimer, elevated: Assessment and Plan: Elevated d dimer, I have no reason to suspect this is from acute VTE and likely due to CATHIE/Acute congestive HF Internal Medicine - PN: Subj Subjective Interval history: Seen and examined. Patient lethargic with slight confusion. Overnight he became hypotensive and required IV Levophed infusion for hemodynamic instability and hypotension. He ran out of insulin and his insulin pump and was started on IV regular insulin continuous infusion for hyperglycemia. He has had no urine output overnight and his diuretic therapy was withheld due to concern for worse timothy renal function and hypotension. Instead, he was given small IV boluses overnight. Patient is significantly and grossly edematous with now anasarca due to volume overload. Still requiring Levophed infusion for cardiogenic shock Exam Constitutional Vital Signs, click to edit/add: Last Vital Signs Temp 97.7 F 11/03/23 04:00 Pulse 69 11/03/23 10:00 Resp 18 11/03/23 07:40 BP 95/45 L 11/03/23 07:31 Pulse Ox 99 11/03/23 07:40 O2 Del Method Nasal Cannula 11/03/23 07:41 O2 Flow Rate 1 11/03/23 07:41 General appearance: cooperative, comfortable, lethargic, ill appearing and grossly edematous [facility] Common normals: normocephalic and head/scalp atraumatic Respiratory Common normals: normal respiratory effort Effort & inspection: tachypneic Auscultation: rales bilateral and diminished lung sounds bilateral Other: Conversational dyspnea noted. Appears short of breath. Cardio Common normals: regular rate, regular rhythm, S1 normal heart sound and S2 normal heart sound Jugular venous distention: JVD to the level of the angle of the jaw GI Common normals: soft to palpation, non-tender and no hepatosplenomegaly Inspection: edema findings Laterality: bilateral and anasarca present Extremity General: edema (+4) Neuro Common normals: oriented x3, moves all extremities, no focal motor deficits and no sensory deficits noted Sensorium/orientation: lethargic and somnolent Psych Common normals: mental status grossly normal, denies homicidal ideation and denies suicidal ideation Internal Medicine - PN: Obj Da Labs Labs: Laboratory Results - last 24 hr 11/02/23 11/02/23 11/02/23 12:55 13:56 15:41 WBC 8.6 RBC 3.89 L Hgb 10.4 L Hct 32.5 L MCV 83.5 MCH 26.7 MCHC 32.0 RDW 19.1 H Plt Count 243 MPV 10.7 Neut % (Auto) 84.2 H Lymph % (Auto) 6.1 L Karn[place] % (Auto) 8.8 Eos % (Auto) 0.1 L Baso % (Auto) 0.1 L Neut # (Auto) 7.2 H Lymph # (Auto) 0.5 L [place] # (Auto) 0.8 Eos # (Auto) 0.0 Baso # (Auto) 0.0 Abs Immat Gran (auto) 0.06 H Imm/Tot Granulo (auto) 0.7 H PT 13.6 H INR 1.32 D-Dimer VBG pH 7.353 VBG pCO2 52.4 H Sodium 126 L Potassium 5.1 Chloride 89 L Carbon Dioxide 30.0 Anion Gap 12.1 BUN 67.0 H Creatinine 2.36 H Est GFR ( Amer) 33 L Est GFR (Non-Af Amer) 27 L BUN/Creatinine Ratio 28.4 Glucose 562 H* Lactate 3.0 H* 2.8 H* Calcium 8.9 Total Bilirubin 0.9 AST 16 ALT 34 Alkaline Phosphatase 233 H Troponin I High Sens 34.9 NT-Pro-B Natriuret Pep 00745.0 H* Total Protein 6.4 Albumin 2.9 L Globulin 3.5 Albumin/Globulin Ratio 0.8 Urine Color Urine Clarity Urine pH Ur Specific Pyrites Urine Protein Urine Glucose (UA) Urine Ketones Urine Occult Blood Urine Nitrite Urine Bilirubin Urine Urobilinogen Ur Leukocyte Esterase Acetone, Qual Negative 11/02/23 11/03/23 11/03/23 20:55 00:20 01:41 WBC RBC Hgb Hct MCV MCH MCHC RDW Plt Count MPV Neut % (Auto) Lymph % (Auto) Karnes % (Auto) Eos % (Auto) Baso % (Auto) Neut # (Auto) Lymph # (Auto) Karnes # (Auto) Eos # (Auto) Baso # (Auto) Abs Immat Gran (auto) Imm/Tot Granulo (auto) PT INR D-Dimer 4.20 H* VBG pH VBG pCO2 Sodium 126 L Potassium 5.7 H Chloride 88 L Carbon Dioxide 26.1 Anion Gap 17.6 BUN 77.0 H* Creatinine 2.66 H Est GFR ( Amer) 29 L Est GFR (Non-Af Amer) 24 L BUN/Creatinine Ratio 28.9 Glucose 603 H* 627 H* Lactate Calcium 8.7 Total Bilirubin AST ALT Alkaline Phosphatase Troponin I High Sens 35.9 NT-Pro-B Natriuret Pep Total Protein Albumin Globulin Albumin/Globulin Ratio Urine Color Yellow Urine Clarity Clear Urine pH 5.5 Ur Specific Pyrites >=1.030 A Urine Protein Negative Urine Glucose (UA) 250 A Urine Ketones Negative Urine Occult Blood Negative Urine Nitrite Negative Urine Bilirubin Negative Urine Urobilinogen 0.2 Ur Leukocyte Esterase Negative Acetone, Qual Small A 11/03/23 11/03/23 11/03/23 02:00 05:50 07:41 WBC 15.3 H RBC 3.76 L Hgb 10.1 L Hct 30.5 L MCV 81.1 MCH 26.9 MCHC 33.1 RDW 19.0 H Plt Count 291 MPV 10.6 Neut % (Auto) 85.0 H Lymph % (Auto) 4.7 L [place] % (Auto) 9.4 Eos % (Auto) 0.1 L Baso % (Auto) 0.1 L Neut # (Auto) 13.0 H Lymph # (Auto) 0.7 L [place] # (Auto) 1.4 H Eos # (Auto) 0.0 Baso # (Auto) 0.0 Abs Immat Gran (auto) 0.11 H Imm/Tot Granulo (auto) 0.7 H PT INR D-Dimer VBG pH 7.289 L VBG pCO2 56.5 H Sodium 126 L 125 L Potassium 5.2 H 5.1 Chloride 89 L 89 L Carbon Dioxide 26.6 27.2 Anion Gap 15.6 13.9 BUN 83.0 H* 79.0 H* Creatinine 2.92 H 2.95 H Est GFR ( Amer) 26 L 26 L Est GFR (Non-Af Amer) 21 L 21 L BUN/Creatinine Ratio 28.4 26.8 Glucose 573 H* 532 H* 510 H* Lactate Calcium 8.3 L 8.5 Total Bilirubin 0.9 AST 208 H ALT 165 H Alkaline Phosphatase 207 H Troponin I High Sens NT-Pro-B Natriuret Pep 52175.0 H* Total Protein 6.1 L Albumin 2.8 L Globulin 3.3 Albumin/Globulin Ratio 0.8 Urine Color Urine Clarity Urine pH Ur Specific Pyrites Urine Protein Urine Glucose (UA) Urine Ketones Urine Occult Blood Urine Nitrite Urine Bilirubin Urine Urobilinogen Ur Leukocyte Esterase Acetone, Qual Urinary Catheter Management Urinary Catheter Management Urethral: Cath placed during this visit: yes Urethral indwelling: Yes Reason for continuing: measure accurate output Insertion date: 11/02/23 Insertion time: 23:38
[2023-11-03] MEDS: BUMETANIDE 10 MG in 0.9 % SODIUM CHLORIDE 160 ML 20 MG IV (10:34)
[2023-11-03] MEDS: BUMETANIDE 1 MG/4 ML VIAL 2 MG IVP (10:35)
[2023-11-03 10:40] LABS: pH ABG 7.319 (7.350-7.450)
[2023-11-03 10:45] LABS: ABG PCO2 57.2 mmHg (35.0-45.0); HCO3 ABG 29.4 mmol/L (22.0-26.0); PO2 ABG 79.5 mmHg (80.0-100.0)
[2023-11-03 10:46] LABS: Base Excess ABG 3.3 mmol/L (-2.0-2.0); Oxygen Saturation ABG 95.3 %
[2023-11-03 10:47] LABS: Allen Test POSITIVE (POSITIVE)
[2023-11-03 10:48] LABS: Liters per Minute 1L; O2 Mode NASAL CANNULA; Puncture Site LR
--- NOTE | 2023-11-03 10:52 | PC.NURSE ---
dr gallo made aware of abg and bmp results.
[2023-11-03] MEDS: NOREPINEPHRINE BITARTRATE/D5W 4 MG/250 ML PREMIX 142.5 MG IV (11:17)
--- NOTE | 2023-11-03 11:42 | SWNOTE1 ---
Pt had [facility] last time he was at hospital, about a week ago. Pt was also set up with home oxygen at 2 liters thru [facility]. At this time SW not able to review Important Message from Medicare with pt due to pt being lethargic and intermittent confusion. SW to try later today.
--- NOTE | 2023-11-03 11:52 | PC.NURSE ---
assisted with feeding breakfast. pt stated he feels wore out . rt called to place on bipap. dr gallo updated on bp and increase rate of levophed
--- NOTE | 2023-11-03 12:04 | CA_ITS ---
Patient Name: RADHA BRAXTON MR#: [id number] : 1955 Exam Date: 11/03/2023 Ordering Doctor: SHAIKH Eileen EMMANUEL . ECHOCARDIOGRAM REPORT PROCEDURE: CA ECHO LIMITED INDICATIONS: Cardiogenic shock, S/P CABG COMPARISON: None. DESCRIPTION: Limited ECHOCARDIOGRAM Real-time transthoracic echocardiography with 2D and M-mode performed. QUALITY: Technical quality was adequate. LEFT VENTRICLE: Normal chamber size. Thickened septal wall. LV EF: Global left ventricular systolic function is difficult to assess but appears reduced; visually estimated ejection fraction is 40 to 45%. D-shaped septum consistent with right ventricular pressure and/or volume overload. LEFT ATRIUM: Normal chamber size. RIGHT ATRIUM: Moderate dilatation. RIGHT VENTRICLE: Severe dilatation. Decreased right ventricular systolic function. TRICUSPID VALVE: Normal mobility and thickness. Trivial tricuspid regurgitation. Moderate pulmonary hypertension. RVSP 51mmHg. MITRAL VALVE: Normal mobility and thickness. AORTIC VALVE: Normal trileaflet appearance. No visible sclerosis. AORTIC ROOT: Normal diameter and appearance. PULMONIC VALVE: Normal thickness and mobility. PERICARDIUM: Anterior free space; trivial effusion versus fat pad. IVC: Dilated measuring 2.3cm with no collapse. CONCLUSION: 1. Global left ventricular systolic function is difficult to assess but appears reduced; visually estimated ejection fraction is 40 to 45% 2. D-shaped septum consistent with right ventricular pressure and/or volume overload 3. Severely enlarged right ventricle with reduced systolic function 4. Moderately dilated right atrium 5. Moderately increased right ventricular systolic pressure; RVSP 51 mmHg 6. Anterior free space; trivial effusion versus fat pad Adult Echocardiography Procedure Report Left Ventricle LVEDD (3.7 - 5.6 cm): 5.37 cm LVESD (2.2 - 4.0 cm): 4.33 cm LVIVS thickness (0.6 - 1.2 cm): 1.51 cm LVPW thickness (0.5 - 1.0 cm): 0.70 cm LVOT Diameter 1.60 cm Left Ventricular Ejection Fraction: 44.24 % Left Atrium LA Volume Index (2D A2C): 31.93 ml/m2 Left Atrium Systolic Dimension: 3.99 cm Mitral Valve Right Ventricle RV Internal Diastolic Dimension: 5.32 cm Aorta AO Root Diam: 2.84 cm Aortic Valve Tricuspid Valve Peak Velocity (Regurgitant Flow): 2.27 m/s, 2.99 m/s Pulmonic Valve Right Atrium Right Atrium Systolic Pressure: 123.29 ml, 123.29 ml Dictated by: Wesley Huizar M.D. on 11/03/2023 at 14:51 Approved by: Wesley Huizar M.D. on 11/03/2023 at 14:56
--- NOTE | 2023-11-03 12:04 | PC.NURSE ---
dr gallo at bedside, bumex gtt decreased to 10ml/hr, dr gallo agreed, order placed. levophed at 50 mcg. pt resting on bipap
[2023-11-03] MEDS: INSULIN DETEMIR 300 UNIT/3 ML INSULN.PEN 20 UNIT SUBQ (12:19)
[2023-11-03] MEDS: HEPARIN SODIUM (PORCINE) 5,000 UNIT/ML VIAL 5000 UNIT SUBQ (12:19)
[2023-11-03] MEDS: NOREPINEPHRINE BITARTRATE/D5W 4 MG/250 ML PREMIX 187.5 MG IV (12:49)
[2023-11-03] MEDS: NOREPINEPHRINE BITARTRATE 8 MG in DEXTROSE 5 % IN WATER 250 ML 96.75 MG IV (14:14)
--- NOTE | 2023-11-03 14:20 | PC.NURSE ---
dr gallo at bedside, discussed echo with tech. pt resting on bipap. cvp reading 16-18, dr gallo aware. attempted to consult cardiology for pt, no one available in house.
--- NOTE | 2023-11-03 14:34 | PC.NURSE ---
pt aware of life flight eta, called and spoke with pts brother Billy with update. dr gallo updated
--- NOTE | 2023-11-03 15:22 | PC.NURSE ---
bedside report given to [facility] nurse. pt remains alert and oriented. taken to exit via cart. attempted to call report x3 to [phone] to bed A502. called access for different phone number, automatic corn grinder operator stated she will call charge nurse and have her call our ext.
--- NOTE | 2023-11-03 15:30 | PC.NURSE ---
report called to gelacio.
== END 2023-11-03 15:25 | disposition short-term general hospital (02) | DRG 291 ==
LOC: ER 16:45 → MS 22:52 → ICU 11-03 06:04
PROVIDERS: Physician Assistant; Registered Nurse; Admitting Provider Internal Medicine; Emergency Provider Emergency Medicine; PCP Internal Medicine; Visit Provider Internal Medicine
DX: I13.0 Hypertensive heart and chronic kidney disease with heart failure and stage 1 through stage 4 chronic kidney disease, or unspecified chronic kidney disease (principal); I50.43 Acute on chronic combined systolic (congestive) and diastolic (congestive) heart failure; J96.02 Acute respiratory failure with hypercapnia; R57.0 Cardiogenic shock; E87.1 Hypo-osmolality and hyponatremia; J96.11 Chronic respiratory failure with hypoxia; N17.9 Acute kidney failure, unspecified; E87.20 Acidosis, unspecified; E10.65 Type 1 diabetes mellitus with hyperglycemia; I25.10 Atherosclerotic heart disease of native coronary artery without angina pectoris; E10.22 Type 1 diabetes mellitus with diabetic chronic kidney disease; Z79.4 Long term (current) use of insulin; Z95.1 Presence of aortocoronary bypass graft; N40.0 Benign prostatic hyperplasia without lower urinary tract symptoms; E10.42 Type 1 diabetes mellitus with diabetic polyneuropathy; K21.9 Gastro-esophageal reflux disease without esophagitis; N18.30 Chronic kidney disease, stage 3 unspecified; Z96.41 Presence of insulin pump (external) (internal); I25.5 Ischemic cardiomyopathy; Z79.82 Long term (current) use of aspirin; Z89.421 Acquired absence of other right toe(s); Z99.81 Dependence on supplemental oxygen; E78.2 Mixed hyperlipidemia; E87.5 Hyperkalemia; R79.89 Other specified abnormal findings of blood chemistry; R34 Anuria and oliguria
CPT/HCPCS: 36415; 36569; 36600; 51702; 51798; 71045; 76775; 80048; 80053; 81003; 82009; 82800; 82805; 82947; 82948; 83605; 83880; 84484; 85025; 85378; 85610; 87040; 93005; 93308; 94660; 94761; 96365; 96366; 96368; 96372; 96375; 96376; 99285; C1887; J1644; J1650; J1817; J1940; J2250; J2405